=== PATIENT | female | born 1965 | race Caucasian/White ===

== ENCOUNTER 2016-05-06 12:01 | Day surgery (SDC) | payer MEDICARE, OTHER ==
[2016-05-05 09:36] VITALS: BMI 31.3
[~2016-05-06 12:01] MED LIST: LACTATED RINGERS 1,000 ML IV SCH
[2016-05-06 12:24] VITALS: RESP 16; TEMP 97.4
[2016-05-06] MEDS ORDERED: LIDOCAINE 1% 20 ML VIAL (10MG/ML) FOR IV START INTRADERMA ONE (12:29)
[2016-05-06] MEDS ORDERED: PROPOFOL 10 MG/ML 20 ML VIAL IV ONE (12:37)
--- NOTE | 2016-05-06 13:10 | P.PCN ---
Date of Procedure: 05/06/16 Procedure(s) Performed: Procedure: Esophagogastroduodenoscopy and biopsy. Preoperative diagnosis: History of upper GI bleeding, esophageal varices and antral mass. Postoperative diagnosis: 1. Esophageal varices appear well obliterated in the distal esophagus. 2. Prominent antral folds corresponding to the previously described mass with isolated 2 small ulcerations with no bleeding or gastric outlet obstruction. 3. Portal gastropathy. 4. Multiple biopsies obtained from the antral folds. Preparation and sedation: Was provided by anesthesia. Brief clinical history: The patient is a 50-year-old female who was hospitalized those the end of February 2016 with upper GI bleeding. I performed an upper endoscopy and deployed bands for bleeding esophageal varices. The patient has history of chronic hepatitis C viral infection and cirrhosis of the liver and portal hypertension and had those varices banded couple years prior as well. There was an ulcerated antral mass extending into the pyloric channel that proved benign on biopsies. This evaluation is to assess for need for further banding of the varices and obtain additional biopsies from the antral mass. Procedure: With the patient on her left lateral decubitus position and after informed consent and adequate sedation, I passed the Olympus-GIF 160 video upper endoscope through the cricopharyngeus down the esophagus. The distal esophagus showed normal obliteration of the esophageal varices. In the proximal esophagus there were couple short, small sizee variceal columns with no stigmata of bleeding, with no indication to band at this time. The endoscope was then passed through a small sliding hiatal hernia to the rest of the stomach which was insufflated with air and inspected in detail including the retroflex view in the cardia. In the antrum and the immediate prepyloric area, there was prominent folds converging into the pyloric channel and corresponding to what looked like an antral mass back in February. There were 2 isolated ulcerations on the surface of these folds. The appearance looks more benign this time and it does have the appearance of gastritis. Elsewhere, there was evidence of portal gastropathy with no evidence of bleeding. No gastric varices were noted. Pyloric channel, duodenal bulb, post bulbar area and descending duodenum did not show any additional abnormalities. The patient tolerated the procedure well. Plan: The patient was reassured. Will await biopsy results. I anticipate repeating her upper endoscopy in 1-2 years. She will follow-up with you as planned and I will keep you updated on her progress.
[2016-05-06 13:24] VITALS: BP 131/66; PULSE 81
== END 2016-05-06 13:48 | disposition home or self-care (01) ==
LOC: ORWHC2ENDO 12:01
DX: K25.9 Gastric ulcer, unspecified as acute or chronic, without hemorrhage or perforation (principal); K31.89 Other diseases of stomach and duodenum; K29.70 Gastritis, unspecified, without bleeding; I10 Essential (primary) hypertension; B18.2 Chronic viral hepatitis C; K74.60 Unspecified cirrhosis of liver; K76.6 Portal hypertension; I85.10 Secondary esophageal varices without bleeding; F17.200 Nicotine dependence, unspecified, uncomplicated
CPT/HCPCS: 43239; 81025; 88305; 88342; J2704; 99153

== ENCOUNTER 2016-07-08 09:46 | Observation (INO) | payer MEDICARE, OTHER ==
[2016-07-08] MEDS ORDERED: MORPHINE SULFATE 4 MG/ML SYRINGE IVP STA (10:52)
[2016-07-08] MEDS ORDERED: FAMOTIDINE 20 MG/2 ML VIAL IV STA (10:52)
[2016-07-08] MEDS ORDERED: SODIUM CHLORIDE 0.9% 1,000 ML IV ONE (10:52)
[2016-07-08] MEDS ORDERED: MAG HYDROX/AL HYDROX/SIMETH 30 ML, HYOSCYAMINE ELIXIR 10 ML, CIMETIDINE HCL 300 MG, LID... PO STA ×4 (10:53)
[2016-07-08] MEDS ORDERED: PANTOPRAZOLE 40 MG/10 ML VIAL IVP STA (10:53)
[2016-07-08 12:15] LABS: ALT 39 U/L (9-52); AST 51 U/L (14-36); Alkaline Phosphatase 72 U/L (38-126); Anion Gap 14 mmol/L; Blood Urea Nitrogen 11 mg/dL (7-17); Carbon Dioxide 23 mmol/L (22-30); Chloride 107 mmol/L (98-107); Glucose 103 mg/dL (74-99); Non-African American GFR(MDRD) >60 (>60 ml/min/1.73 sqM); Potassium 3.9 mmol/L (3.5-5.1); Sodium 144 mmol/L (137-145); Total Bilirubin 2.6 mg/dL (0.2-1.3); Total Protein 8.1 g/dL (6.3-8.2)
[2016-07-08 12:20] LABS: Basophils % (A) 1 %; CH 31.9; Eosinophils % (A) 1 %; HCT 41.4 % (34.0-46.0); HDW 2.85; HGB 14.9 gm/dL (11.4-16.0); Luc # (Auto) 0.12; Luc % (Auto) 3; Lymphocytes # (A) 1.4 k/uL (1.0-4.8); Lymphocytes % (A) 32 %; MCV 91.7 fL (80.0-100.0); Mean Platelet Volume 8.6; Monocytes # (A) 0.4 k/uL (0-1.0); Monocytes % (A) 9 %; Neutrophils # (A) 2.4 k/uL (1.3-7.7); Neutrophils % (A) 55 %; RBC 4.52 m/uL (3.80-5.40); RDW 14.4 % (11.5-15.5); WBC 4.4 k/uL (3.8-10.6); WBC (Perox) 4.35
[2016-07-08 12:22] LABS: Appearance,Urine Turbid (Clear); Bacteria,Urine Rare /hpf; Bilirubin,Urine 1+ (Negative); Glucose,Urine (UA) Negative (Negative); Ketones,Urine 1+ (Negative); Leukocyte Esterase,Urine Moderate (Negative); Mucus,Urine Many /hpf; Nitrite,Urine Negative (Negative); Particle Count 26128; Protein,Urine 1+ (Negative); RBC,Urine 1 /hpf (0-5); Specific Gravity,Urine 1.029 (1.001-1.035); Squamous Epithelial Cell,Urine 16 /hpf (0-4); UA Billing (MACRO vs. MICRO) MICRO; WBC,Urine 9 /hpf (0-5)
--- NOTE | 2016-07-08 12:32 | ED ---
General Adult HPI - General Chief complaint: Abdominal Pain Stated complaint: ABD PAIN X3 DAYS Source: patient Mode of arrival: ambulatory Limitations: no limitations - History of Present Illness Initial comments: 50-year-old female with past medical history of hypertension, liver cirrhosis with esophageal banding following GI bleeds, hepatitis C presented for evaluation of abdominal pain for the last 3 days. She describes it as sharp and twisting and intermittent lasting anywhere from 15-30 minutes and then resolving for short period of time. She states is worse when she lays flat and that there is associated nausea although she has not vomited yet. She states that she has had previous GI bleeds that is presented similarly but she has not had any hematemesis, hematochezia, or melena. She denies any lightheadedness/dizziness, chest pain, shortness of breath, fevers, chills, pale discoloration, or dysuria. - Related Data Home Medications Medication Instructions Recorded Confirmed No Known Home Medications [No 05/05/16 07/08/16 Known Home Medications] Allergies Allergy/AdvReac Type Severity Reaction Status Date / Time No Known Allergies Allergy Verified 07/08/16 10:45 Review of Systems ROS Statement: Those systems with pertinent positive or pertinent negative responses have been documented in the HPI. ROS Other: All systems not noted in ROS Statement are negative. Constitutional: Denies: fever, chills, weakness, weight change Eyes: Denies: eye pain, eye discharge ENT: Denies: ear pain, throat pain Respiratory: Denies: cough, dyspnea, hemoptysis Cardiovascular: Denies: chest pain, palpitations, dyspnea on exertion, orthopnea Endocrine: Denies: fatigue, polydipsia, polyuria Gastrointestinal: Reports: abdominal pain, nausea. Denies: vomiting, diarrhea, constipation, hematemesis, melena, hematochezia Genitourinary: Denies: urgency, dysuria Musculoskeletal: Denies: back pain, arthralgia, myalgia Skin: Denies: rash, lesions Neurological: Denies: headache, weakness, numbness, paresthesias Psychiatric: Denies: anxiety, depression Past Medical History Past Medical History: GI Bleed, Hypertension, Liver Disease Additional Past Medical History / Comment(s): Hepatitis C, Vertigo; mass located in stomach from last admission, states has had esophageal banding History of Any Multi-Drug Resistant Organisms: None Reported Past Surgical History: Adenoidectomy, Tonsillectomy Additional Past Surgical History / Comment(s): EGD Past Anesthesia/Blood Transfusion Reactions: No Reported Reaction Past Psychological History: No Psychological Hx Reported Smoking Status: Current every day smoker Past Alcohol Use History: None Reported Additional Past Alcohol Use History / Comment(s): smokes 1pack every 3 days, has smoked since age 12 (1977) Past Drug Use History: None Reported - Past Family History Mother Family Medical History: Cancer Additional Family Medical History / Comment(s): of lung ca Father Family Medical History: Myocardial Infarction ([place]) Additional Family Medical History / Comment(s): from 2nd heart attack General Exam Limitations: no limitations General appearance: alert, in distress Head exam: Present: atraumatic, normocephalic, normal inspection Eye exam: Present: normal appearance, PERRL, EOMI. Absent: scleral icterus, conjunctival injection, periorbital swelling ENT exam: Present: normal exam, mucous membranes moist Neck exam: Present: normal inspection. Absent: tenderness, meningismus, lymphadenopathy Respiratory exam: Present: normal lung sounds bilaterally. Absent: respiratory distress, wheezes, rales, rhonchi, stridor Cardiovascular Exam: Present: normal rhythm, tachycardia, normal heart sounds. Absent: systolic murmur, diastolic murmur, rubs, gallop, clicks GI/Abdominal exam: Present: soft, tenderness, normal bowel sounds. Absent: distended, guarding, rebound, rigid Rectal exam: Present: normal inspection, heme (-) stool Extremities exam: Present: normal inspection, full ROM, normal capillary refill. Absent: tenderness, pedal edema, joint swelling, calf tenderness Back exam: Present: normal inspection, full ROM. Absent: tenderness Neurological exam: Present: alert, oriented X3, CN II-XII intact Psychiatric exam: Present: normal affect, normal mood Skin exam: Present: warm, dry, intact, normal color. Absent: rash Course Vital Signs 07/08/16 07/08/16 07/08/16 09:47 14:40 17:01 Temperature 98.1 F 98.6 F 97.8 F Pulse Rate 101 H 70 Pulse Rate [ 90 Right] Respiratory 18 16 16 Rate Blood Pressure 149/72 102/60 Blood Pressure 127/58 [Right Arm] O2 Sat by Pulse 97 95 96 Oximetry EKG Findings - EKG Comments: EKG Findings:: Normal sinus rhythm with a ventricular rate of 79, DANIEL 116, QRS 78, QT/QTC 386/442. Medical Decision Making - Medical Decision Making 50-year-old female with past medical history of liver cirrhosis secondary to hepatitis C and GI bleeds resulting in esophageal banding presented for evaluation of abdominal pain with nausea and vomiting. She states this feels similar to previous GI bleeds. On physical examination she is markedly and discomfort and has tenderness to palpation in the epigastric abdomen. Fecal occult blood was negative and Labs revealed no significant abnormalities. Acute abdominal series showed no significant abnormalities. Patient was reevaluated and continued to have pain despite providing pain control. Given her continued pain and significant comorbidities we'll admit pain for further treatment and monitoring. Discussed pt with PCP Dr. Estrada who accepted the admission without further request. Bed request submitted and admission order placed. - Lab Data Result diagrams: 07/08/16 11:30 07/08/16 11:30 Lab Results 07/08/16 07/08/16 07/08/16 Range/Units 11:30 11:30 11:30 WBC 4.4 (3.8-10.6) k/uL RBC 4.52 (3.80-5.40) m/uL Hgb 14.9 (11.4-16.0) gm/dL Hct 41.4 (34.0-46.0) % MCV 91.7 (80.0-100.0) fL MCH 33.0 (25.0-35.0) pg MCHC 36.0 (31.0-37.0) g/dL RDW 14.4 (11.5-15.5) % Plt Count 76 L (150-450) k/uL Neutrophils % 55 % Lymphocytes % 32 % Monocytes % 9 % Eosinophils % 1 % Basophils % 1 % Neutrophils # 2.4 (1.3-7.7) k/uL Lymphocytes # 1.4 (1.0-4.8) k/uL Monocytes # 0.4 (0-1.0) k/uL Eosinophils # 0.0 (0-0.7) k/uL Basophils # 0.0 (0-0.2) k/uL Large Platelets Present Poikilocytosis (manual Present Anisocytosis (manual) Present Sodium 144 (137-145) mmol/L Potassium 3.9 (3.5-5.1) mmol/L Chloride 107 (98-107) mmol/L Carbon Dioxide 23 (22-30) mmol/L Anion Gap 14 mmol/L BUN 11 (7-17) mg/dL Creatinine 0.71 (0.52-1.04) mg/dL Est GFR (MDRD) Af Amer >60 (>60 ml/min/1.73 sqM) Est GFR (MDRD) Non-Af >60 (>60 ml/min/1.73 sqM) Glucose 103 H (74-99) mg/dL Plasma Lactic Acid Darrius 1.8 (0.7-2.0) mmol/L Calcium 9.0 (8.4-10.2) mg/dL Total Bilirubin 2.6 H (0.2-1.3) mg/dL AST 51 H (14-36) U/L ALT 39 (9-52) U/L Alkaline Phosphatase 72 (38-126) U/L Troponin I (0.000-0.034) ng/mL Total Protein 8.1 (6.3-8.2) g/dL Albumin 3.8 (3.5-5.0) g/dL Lipase 166 (23-300) U/L Urine Color Urine Appearance (Clear) Urine pH (5.0-8.0) Ur Specific [place] (1.001-1.035) Urine Protein (Negative) Urine Glucose (UA) (Negative) Urine Ketones (Negative) Urine Blood (Negative) Urine Nitrite (Negative) Urine Bilirubin (Negative) Urine Urobilinogen (<2.0) mg/dL Ur Leukocyte Esterase (Negative) Urine RBC (0-5) /hpf Urine WBC (0-5) /hpf Ur Squamous Epith Cells (0-4) /hpf Urine Bacteria (None) /hpf Urine Mucus (None) /hpf Stool Occult Blood (Negative) Blood Type Blood Type Recheck Antibody Screen Spec Expiration Date 07/08/16 07/08/16 07/08/16 Range/Units 11:30 11:30 11:30 WBC (3.8-10.6) k/uL RBC (3.80-5.40) m/uL Hgb (11.4-16.0) gm/dL Hct (34.0-46.0) % MCV (80.0-100.0) fL MCH (25.0-35.0) pg MCHC (31.0-37.0) g/dL RDW (11.5-15.5) % Plt Count (150-450) k/uL Neutrophils % % Lymphocytes % % Monocytes % % Eosinophils % % Basophils % % Neutrophils # (1.3-7.7) k/uL Lymphocytes # (1.0-4.8) k/uL Monocytes # (0-1.0) k/uL Eosinophils # (0-0.7) k/uL Basophils # (0-0.2) k/uL Large Platelets Poikilocytosis (manual Anisocytosis (manual) Sodium (137-145) mmol/L Potassium (3.5-5.1) mmol/L Chloride (98-107) mmol/L Carbon Dioxide (22-30) mmol/L Anion Gap mmol/L BUN (7-17) mg/dL Creatinine (0.52-1.04) mg/dL Est GFR (MDRD) Af Amer (>60 ml/min/1.73 sqM) Est GFR (MDRD) Non-Af (>60 ml/min/1.73 sqM) Glucose (74-99) mg/dL Plasma Lactic Acid Darrius (0.7-2.0) mmol/L Calcium (8.4-10.2) mg/dL Total Bilirubin (0.2-1.3) mg/dL AST (14-36) U/L ALT (9-52) U/L Alkaline Phosphatase (38-126) U/L Troponin I <0.012 (0.000-0.034) ng/mL Total Protein (6.3-8.2) g/dL Albumin (3.5-5.0) g/dL Lipase (23-300) U/L Urine Color [place] Urine Appearance Turbid H (Clear) Urine pH 6.0 (5.0-8.0) Ur Specific [place] 1.029 (1.001-1.035) Urine Protein 1+ H (Negative) Urine Glucose (UA) Negative (Negative) Urine Ketones 1+ H (Negative) Urine Blood Negative (Negative) Urine Nitrite Negative (Negative) Urine Bilirubin 1+ H (Negative) Urine Urobilinogen 12.0 (<2.0) mg/dL Ur Leukocyte Esterase Moderate H (Negative) Urine RBC 1 (0-5) /hpf Urine WBC 9 H (0-5) /hpf Ur Squamous Epith Cells 16 H (0-4) /hpf Urine Bacteria Rare H (None) /hpf Urine Mucus Many H (None) /hpf Stool Occult Blood (Negative) Blood Type O Positive Blood Type Recheck No Antibody Screen NEGATIVE Spec Expiration Date 07/11/2016 - 232907/08/16 Range/Units 11:30 WBC (3.8-10.6) k/uL RBC (3.80-5.40) m/uL Hgb (11.4-16.0) gm/dL Hct (34.0-46.0) % MCV (80.0-100.0) fL MCH (25.0-35.0) pg MCHC (31.0-37.0) g/dL RDW (11.5-15.5) % Plt Count (150-450) k/uL Neutrophils % % Lymphocytes % % Monocytes % % Eosinophils % % Basophils % % Neutrophils # (1.3-7.7) k/uL Lymphocytes # (1.0-4.8) k/uL Monocytes # (0-1.0) k/uL Eosinophils # (0-0.7) k/uL Basophils # (0-0.2) k/uL Large Platelets Poikilocytosis (manual Anisocytosis (manual) Sodium (137-145) mmol/L Potassium (3.5-5.1) mmol/L Chloride (98-107) mmol/L Carbon Dioxide (22-30) mmol/L Anion Gap mmol/L BUN (7-17) mg/dL Creatinine (0.52-1.04) mg/dL Est GFR (MDRD) Af Amer (>60 ml/min/1.73 sqM) Est GFR (MDRD) Non-Af (>60 ml/min/1.73 sqM) Glucose (74-99) mg/dL Plasma Lactic Acid Darrius (0.7-2.0) mmol/L Calcium (8.4-10.2) mg/dL Total Bilirubin (0.2-1.3) mg/dL AST (14-36) U/L ALT (9-52) U/L Alkaline Phosphatase (38-126) U/L Troponin I (0.000-0.034) ng/mL Total Protein (6.3-8.2) g/dL Albumin (3.5-5.0) g/dL Lipase (23-300) U/L Urine Color Urine Appearance (Clear) Urine pH (5.0-8.0) Ur Specific [place] (1.001-1.035) Urine Protein (Negative) Urine Glucose (UA) (Negative) Urine Ketones (Negative) Urine Blood (Negative) Urine Nitrite (Negative) Urine Bilirubin (Negative) Urine Urobilinogen (<2.0) mg/dL Ur Leukocyte Esterase (Negative) Urine RBC (0-5) /hpf Urine WBC (0-5) /hpf Ur Squamous Epith Cells (0-4) /hpf Urine Bacteria (None) /hpf Urine Mucus (None) /hpf Stool Occult Blood Negative (Negative) Blood Type Blood Type Recheck Antibody Screen Spec Expiration Date Disposition Clinical Impression: Intractable abdominal pain, Nausea Disposition: ADMITTED IP TO THIS [facility] Decision to Admit Reason: Admit from EC Decision Date: 07/08/16 Decision Time: 14:30
[2016-07-08] MEDS ORDERED: HYDROmorphone 1 MG/ML 1 ML SYRINGE IVP STA (12:33)
[2016-07-08 13:02] LABS: Large Platelets Present
--- NOTE | 2016-07-08 13:32 | XR ---
EXAMINATION TYPE: XR abdomen acute w cxr DATE OF EXAM: 07/08/2016 1:22 PM COMPARISON: Chest x-ray 03/08/2016. HISTORY: Pain nausea TECHNIQUE: Acute abdominal series performed with a frontal chest upright and supine views of the abdo men. FINDINGS: Normal bowel gas is present within the colon. Psoas margins are normal. Organomegaly is not present. No suspicious air-fluid levels or differential air-fluid levels are present. No free air is present. Lung barrera are clear. IMPRESSION: 1. Normal acute abdominal series.
[2016-07-08] MEDS ORDERED: NALOXONE 0.4 MG/ML 1 ML VIAL IV PRN (14:25)
[2016-07-08] MEDS: SODIUM CHLORIDE 0.9% 1,000 ML IV SCH (16:23)
[2016-07-08] MEDS: MORPHINE SULFATE 4 MG/ML SYRINGE IV PRN ×2 (18:00→22:49)
[2016-07-08] MEDS ORDERED: LEVOFLOXACIN 500MG-D5W PMX 500 MG in DEXTROSE/WATER 1 100ML.BAG IVPB SCH (18:00)
[2016-07-08] MEDS: ONDANSETRON 4 MG/2 ML VIAL IVP PRN (20:29)
[2016-07-08 20:57] LABS: Appearance,Urine Clear (Clear); Bilirubin,Urine Negative (Negative); Glucose,Urine (UA) Negative (Negative); Ketones,Urine Trace (Negative); Leukocyte Esterase,Urine Negative (Negative); Nitrite,Urine Negative (Negative); PH, Urine 5.5 (5.0-8.0); Protein,Urine Trace (Negative); Specific Gravity,Urine 1.025 (1.001-1.035); UA Billing (MACRO vs. MICRO) CHEM
[2016-07-09] MEDS: MORPHINE SULFATE 4 MG/ML SYRINGE IV PRN ×3 (03:32→13:02)
[2016-07-09] MEDS: PANTOPRAZOLE 40 MG/10 ML VIAL IVP SCH (07:51)
[2016-07-09] MEDS: SODIUM CHLORIDE 0.9% 1,000 ML IV SCH ×3 (07:59→18:10)
[2016-07-09 09:01] LABS: Basophils % (A) 0 %; CH 31.2; CHCM 32.5; Eosinophils % (A) 1 %; HCT 35.8 % (34.0-46.0); HDW 2.85; Luc % (Auto) 4; Lymphocytes % (A) 35 %; MCH 32.4 pg (25.0-35.0); MCHC 33.6 g/dL (31.0-37.0); MCV 96.5 fL (80.0-100.0); Mean Platelet Volume 8.4; Monocytes # (A) 0.2 k/uL (0-1.0); Monocytes % (A) 7 %; Neutrophils # (A) 1.5 k/uL (1.3-7.7); Neutrophils % (A) 53 %; RBC 3.71 m/uL (3.80-5.40); RDW 14.2 % (11.5-15.5); WBC 2.8 k/uL (3.8-10.6); WBC (Perox) 2.97
[2016-07-09 09:25] LABS: ALT 29 U/L (9-52); AST 40 U/L (14-36); Alkaline Phosphatase 43 U/L (38-126); Anion Gap 8 mmol/L; Blood Urea Nitrogen 10 mg/dL (7-17); Calcium 7.9 mg/dL (8.4-10.2); Carbon Dioxide 24 mmol/L (22-30); Chloride 108 mmol/L (98-107); Glucose 91 mg/dL (74-99); Non-African American GFR(MDRD) >60 (>60 ml/min/1.73 sqM); Sodium 140 mmol/L (137-145); Total Bilirubin 1.8 mg/dL (0.2-1.3); Total Protein 6.4 g/dL (6.3-8.2)
[2016-07-09] MEDS: ONDANSETRON 4 MG/2 ML VIAL IVP PRN ×2 (13:02→20:37)
--- NOTE | 2016-07-09 14:14 | P.DS ---
Providers Date of admission: 07/08/16 14:25 Expected date of discharge: 07/11/16 Attending physician: Mark Estrada Consults: Dr. Kwame Ruvalcaba Primary care physician: Mark Estrada Hospital Course: 50-year-old who presented to the emergency room with a chief complaint of developing abdominal discomfort stated he had ongoing for the last several days. Patient does have a history of liver cirrhosis with esophageal banding following GI bleed. Patient does have history of hepatitis. Patient described the pain as sharp intermittent lasting anywhere from 15-30 minutes. Patient stated seem to be worse if she laid down. The was no dizziness lightheadedness. In the emergency room patient was afebrile temp is 98. Heart rate in the 90s. Pulse ox sat on room air 97. The white count on admission 4.4 hemoglobin 14.9. Urinalysis suggested UTI patient was started on IV Levaquin patient did have an x-ray of the abdomen it showed no acute abdominal series no suspicious air fluid level. Repeat urinalysis was negative with the final urine culture negative no evidence of a UTI patient continued to have an episodes of abdominal pain patient underwent a CAT scan of the abdomen and pelvis there was no evidence of a bowel obstruction. No evidence of hydronephrosis some fluid noted around the gallbladder and the bile ducts were not dilated. It did show incidental finding of a 5 x 5 cm fixed mass at the 9: 00 location on the left breast. Surgical consultation was requested patient was seen by Dr. dawn Patient did undergo on July 10 successful ultrasound- guided core biopsy of the left breast mass path report pending. Ultrasound of the gallbladder did show sludge. Patient was denying any abdominal pain when questioning Surgical service indicated they would discuss with the patient in a follow-up visit the path report from the breast biopsy done on the left and the abnormal ultrasound of the gallbladder would be discussed in the outpatient setting in the follow-up office visit Additionally the patient was seen by gastroenterology service CT abdomen and pelvis yesterday reported no evidence of pancreatic mass some fluid at the tail the pancreas without bile duct dilation. Annular thickening of the wall the gastric antrum possible mass in the wall and the right lateral aspect that was present on previous CT with no evidence of bowel obstruction. Patient reports pain in the midepigastrium without weight loss, hematemesis hematochezia or melena additionally CT mentioned a possible 3 cm mass in the left breast. Gastric mass seen on CT was evaluated in March 2016 at that time she underwent EGD twice once by Dr. Mosquera the other by Dr. Joseph pathology from both specimens negative for malignancy. CEA February 2016 was 1.8. Repeat EGD 05/06/[address] Joseph reported evidence of esophageal varices well obliterated in the distal esophagus. Prominent antral folds corresponding to the previously described mass with a slightly 2 small ulcerations with no bleeding or gastric outlet obstruction with portal gastropathy. Multiple biopsies negative for malignancy. No mentioning of difficulty with insufflation during exam. Additionally the patient was seen by hematology oncology for a low white count. Patient has been followed by Dr. Puente in the office in February 2016. Recommendations were noted and appreciated. 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 chronic cirrhosis of the liver with chronic hepatitis C Epigastric abdominal pain etiology unclear with a history of multiple EGDs most recently 2 months ago without evidence of an obvious mass with negative biopsies Ultrasound of the breast on the left show a lesion at 9:00 highly suggestive of a malignancy Chronic nicotine dependency greater than a 20 history Ultrasound of the gallbladder showing sludge within the gallbladder with thickening gallbladder wall acute cholecystitis not ruled out Present on admission urinalysis suggestive of possible UTI uncomplicated with the urine culture negative Repeat urinalysis negative UTI ruled out History of chronic hepatitis C with cirrhosis and portal hypertension History of multiple EGDs most recently 2 months ago without evidence of an obvious mass with negative biopsies The above dictated assessment and findings were discussed with dr estrada Impression and the plan of care have been dictated as directed. Nanci Canas nurse practitioner acting as a scribe for dr estrada Plan - Discharge Summary New Discharge Prescriptions: HYDROcodone/APAP 5-325MG [[place] 5-325] 1 each PO Q4H PRN #15 tab PRN Reason: Pain Discharge Medication List HYDROcodone/APAP 5-325MG [[place] 5-325] 1 each PO Q4H PRN #15 tab 07/11/16 [Rx] Follow up Appointment(s)/Referral(s): Mark Estrada MD [Primary Care Provider] - 07/14/16 9:50 am Jayy Joseph MD [STAFF PHYSICIAN] - 08/04/16 1:30 pm Hernesto Puente MD [STAFF PHYSICIAN] - 1 Week Patient Instructions/Handouts: Levofloxacin (By mouth), Acute Abdominal Pain ( DC) Discharge Disposition: HOME SELF-CARE
--- NOTE | 2016-07-09 16:03 | P.PN ---
Subjective 50-year-old female being seen. Patient continues to report that she is having persistent abdominal pain patient describes it as diffuse cramping abdominal discomfort. Patient states the pain has not gotten any better. Patient reports no nausea vomiting. Patient currently is denying any burning on urination. Objective - Vital Signs Vital signs: Vital Signs Temp 98.0 F 07/09/16 15:00 Pulse 79 07/09/16 15:00 Resp 16 07/09/16 15:00 BP 110/56 07/09/16 15:00 Pulse Ox 96 07/09/16 15:00 Intake & Output 07/08/16 07/09/16 07/09/16 18:59 06:59 18:59 Intake Total 375 600 Balance 375 600 Intake: Intake, IV Titration 375 Amount Sodium Chloride 0.9% 1, 375 000 ml @ 125 mls/hr IV . Q8H RAFAEL Rx#:[id number] Oral 600 Other: # Voids 2 3 - Exam Physical exam 50-year-old female looking older than stated age resting in bed continues to report having abdominal discomfort and points to the lower abdominal wall Lungs essentially clear adequate air movement Heart S1-S2 audible regular Abdomen soft no rebound no palpable organomegaly no reports of nausea vomiting diffuse tenderness to the bilateral lower flank area Extremities no edema - Labs CBC & Chem 7: 07/09/16 08:20 07/09/16 08:20 Labs: Abnormal Lab Results - Last 24 Hours (Table) 07/08/16 07/09/16 07/09/16 Range/Units 20:33 08:20 08:20 WBC 2.8 L (3.8-10.6) k/uL RBC 3.71 L (3.80-5.40) m/uL Plt Count 67 L (150-450) k/uL Chloride 108 H (98-107) mmol/L Calcium 7.9 L (8.4-10.2) mg/dL Total Bilirubin 1.8 H (0.2-1.3) mg/dL AST 40 H (14-36) U/L Albumin 2.8 L (3.5-5.0) g/dL Urine Protein Trace H (Negative) Urine Ketones Trace H (Negative) Microbiology - Last 24 Hours (Table) 07/08/16 20:33 Urine Culture - Preliminary Urine,Voided Assessment and Plan Plan: Impression discharge diagnosis Present on admission abdominal pain suspect due to a UTI History of hepatitis C chronic total bilirubin elevated at 1.8 History of esophageal varices with banding due to cirrhosis of the liver March 2016 Chronic thrombocytopenia Chronic nicotine dependency greater than a 20 year history Plan Continue IV Levaquin as ordered IV fluid for hydration Ultrasound gallbladder Home meds as appropriate DVT and GI prophylaxis further recommendations pending The above dictated assessment and findings were discussed with dr hanna . Impression and the plan of care have been dictated as directed. Nanci Canas nurse practitioner acting as a scribe for dr gutierrez
[2016-07-09] MEDS ORDERED: RX INFO: IV CONTRAST WAS GIVEN 1 EACH MISC MISCELLANE PRN (16:07)
--- NOTE | 2016-07-09 17:11 | HP ---
DATE OF ADMISSION: 07/08/2016 CHIEF COMPLAINT: Abdominal pain. HISTORY OF PRESENT ILLNESS: This is another admission for this 50-year-old white female. She was in the hospital last year with abdominal pain and vomiting of blood and was found to have a "gastric mass which is benign." That was worked up and she has not been seen since March 2016. She came into the emergency room complaining of generalized abdominal pain, but no vomiting, melena, hematochezia, hematemesis, etc. There is no jaundice. She was admitted for observation. Labs in the ER were normal. She does have a history of hepatitis C. REVIEW OF SYSTEMS: She has had no headaches, syncope, change in vision or hearing, chest pain, cough, hemoptysis, palpitations, heart disease, murmurs, rheumatic fever, melena, hematochezia, jaundice, hematuria, frequency, urgency, arthralgias, diabetes, etc. Past medical history, family history and personal and social histories are unremarkable and noncontributory otherwise. She does smoke, but she does not drink. PHYSICAL EXAM: Blood pressure 132/88, pulse 64, respirations 20, and she is afebrile. GENERAL: She appeared to be well-developed, well-nourished no acute distress. SKIN: Skin color is normal. Skin is warm and dry. Lymph nodes are not enlarged. Head, ears, eyes, nose, mouth, and throat were normal. NECK: Neck veins not distended. Thyroid is not enlarged. Chest is clear. The cardiac exam is normal. The abdomen is soft and nontender, large and nontender. She has a little tenderness over the epigastrium. Bowel sounds present. EXTREMITIES: Normal. NEUROLOGICAL: She is intact. She is admitted to the hospital with diagnoses of: 1. Abdominal pain. 2. Previous history of gastric mass. 3. Previous history of hematemesis. 4. Hepatitis C. 5. Depression. 6. Chronic obstructive pulmonary disease. PLAN: 1. Bed rest. 2. IV fluids. 3. Monitor pain and decide whether or not she should go through another work-up.
[2016-07-09] MEDS: HYDROmorphone 1 MG/ML 1 ML SYRINGE IVP PRN ×2 (17:25→23:55)
[2016-07-09] MEDS: LEVOFLOXACIN 500 MG TAB PO SCH (17:58)
--- NOTE | 2016-07-09 18:19 | CT ---
EXAMINATION TYPE: CT abdomen pelvis w con DATE OF EXAM: 07/09/2016 5:45 PM COMPARISON: 01/11/2016 HISTORY: Mid to right upper abdominal pain. CT DLP: 1569.00 mGycm Automated exposure control for dose reduction was used. TECHNIQUE: Helical acquisition of images was performed from the lung bases through the pelvis. CONTRAST: Performed without Oral Contrast and with IV Contrast, patient injected with 100 mL of Omnipaque 300. FINDINGS: There is patchy pneumonic consolidation and atelectasis at the lung bases. There is no pleural effusi on. Liver shows no focal defect. Spleen is enlarged and measures 15 cm. There is no evidence of a pancrea tic mass. There is some fluid at the tail of the pancreas. There is probably some fluid around the ga llbladder. Bile ducts are not dilated. There is no adrenal mass. Kidneys show satisfactory contrast opacification. There is no hydronephrosi s. There is a small amount of free fluid in the pelvis. I see no intestinal wall thickening. There ar e no dilated loops. There is mild stranding in the pericolic fat involving the right colon. There is some annular thickening of the wall of the gastric antrum. There is a possible mass of the wall on th e right lateral aspect. This is also present on the old CT scan. There is no evidence of a bowel obst ruction. IMPRESSION: THERE IS A SMALL AMOUNT OF FREE FLUID IN THE ABDOMEN. THERE IS SOME FLUID AT THE TAIL OF THE PANCREAS THAT COULD RELATE TO PANCREATITIS. THERE IS SOME THICKENING OF THE GASTRIC ANTRUM WALL ON THE RIGHT LATERAL ASPECT IN PARTICULAR BUT COU LD RELATE TO A GASTRIC TUMOR. ENDOSCOPY IS RECOMMENDED FOR FURTHER EVALUATION. THERE IS PERICOLIC FAT STRANDING ON THE RIGHT SIDE THERE IS ALSO PRESENT ON THE OLD CT SCAN IS NONSPE CIFIC. I DO NOT SEE EVIDENCE OF APPENDICITIS. APPENDIX IS NOT SEEN. I DO NOT SEE INTESTINAL WALL THIC KENING INVOLVING THE RIGHT COLON. THERE IS NEW BILATERAL BASILAR PULMONARY CONSOLIDATION AND ATELECTASIS COMPARED TO OLD EXAM. THE UPPERMOST IMAGE OF THE ABDOMEN SHOWS A POSSIBLE 3 CM MASS IN THE LEFT BREAST. CORRELATION WITH TH E PHYSICAL EXAM IS RECOMMENDED.
--- NOTE | 2016-07-09 19:07 | PN ---
DATE OF SERVICE: 07/09/2016 CHIEF COMPLAINT: Abdominal pain. HISTORY OF PRESENT ILLNESS: This lady is still complaining of abdominal discomfort mostly in the epigastric area. She had no vomiting, fever, chills, etc. PHYSICAL EXAMINATION: She is a little bit tender over the epigastrium. Chest is clear. Cardiac exam is normal. IMPRESSION: Abdominal pain, etiology unknown. PLAN: Start to progress activity and diet and continue to look for source of pain.
[2016-07-09] MEDS: HYDROcodone/APAP 5-325MG 1 EACH TAB PO PRN (20:36)
[2016-07-10] MEDS: HYDROcodone/APAP 5-325MG 1 EACH TAB PO PRN ×5 (00:59→19:53)
[2016-07-10] MEDS: ONDANSETRON 4 MG/2 ML VIAL IVP PRN (04:51)
[2016-07-10] MEDS: SODIUM CHLORIDE 0.9% 1,000 ML IV SCH ×3 (04:54→18:10)
[2016-07-10] MEDS: HYDROmorphone 1 MG/ML 1 ML SYRINGE IVP PRN ×3 (06:19→18:14)
[2016-07-10 07:52] LABS: Basophils % (A) 0 %; CH 31.2; CHCM 32.6; Eosinophils % (A) 2 %; HCT 32.6 % (34.0-46.0); HDW 2.84; HGB 11.1 gm/dL (11.4-16.0); Luc # (Auto) 0.08; Luc % (Auto) 3; Lymphocytes # (A) 1.1 k/uL (1.0-4.8); Lymphocytes % (A) 41 %; MCH 32.8 pg (25.0-35.0); MCHC 34.1 g/dL (31.0-37.0); MCV 96.1 fL (80.0-100.0); Mean Platelet Volume 8.7; Monocytes # (A) 0.2 k/uL (0-1.0); Monocytes % (A) 7 %; Neutrophils # (A) 1.2 k/uL (1.3-7.7); Neutrophils % (A) 47 %; RBC 3.39 m/uL (3.80-5.40); WBC 2.5 k/uL (3.8-10.6); WBC (Perox) 2.68
[2016-07-10 08:10] LABS: ALT 29 U/L (9-52); AST 35 U/L (14-36); Alkaline Phosphatase 44 U/L (38-126); Amylase 61 U/L (30-110); Anion Gap 6 mmol/L; Blood Urea Nitrogen 9 mg/dL (7-17); Calcium 7.9 mg/dL (8.4-10.2); Carbon Dioxide 24 mmol/L (22-30); Chloride 109 mmol/L (98-107); Glucose 81 mg/dL (74-99); Non-African American GFR(MDRD) >60 (>60 ml/min/1.73 sqM); Potassium 3.6 mmol/L (3.5-5.1); Sodium 139 mmol/L (137-145); Total Bilirubin 1.4 mg/dL (0.2-1.3); Total Protein 6.1 g/dL (6.3-8.2)
[2016-07-10] MEDS: PANTOPRAZOLE 40 MG/10 ML VIAL IVP SCH (08:27)
--- NOTE | 2016-07-10 09:34 | US ---
EXAMINATION TYPE: US gallbladder DATE OF EXAM: 07/10/2016 7:44 AM COMPARISON: NONE CLINICAL HISTORY: Right upper quadrant pain. h/o cirrhosis EXAM MEASUREMENTS: Liver Length: 14.7 cm Gallbladder Wall: 0.5 cm CBD: 0.6 cm Right Kidney: 11.6 x 6.3 x 5.9 cm cm Pancreas: Obscured by bowel gas Liver: Increased attenuation, decreased visualization of vessels, best scans obtained intercostally; small cirrhotic liver with hyperechoic areas surrounding vessels Gallbladder: suspicious for sludge in neck of gb; thickened wall Evidence for sonographic Greenberg's sign: no CBD: upper limits of normal Right Kidney: No hydronephrosis or masses seen The pancreas is poorly visualized. The liver is normal in size but coarse in texture.. There is sludg e within the gallbladder. The gallbladder wall is thickened measuring 4.5 mm. The distal common hepat ic duct measures 6 mm. There is no sonographic Greenberg's sign. The right kidney is unremarkable. IMPRESSION: SLUDGE WITHIN THE GALLBLADDER WITH THICKENED GALLBLADDER WALL. PLEASE CORRELATE FOR ACUTE CHOLECYSTIT IS.
[2016-07-10] MEDS: ALPRAZolam 0.5 MG TAB PO PRN ×2 (09:39→12:12)
--- NOTE | 2016-07-10 09:55 | P.CONS ---
History of Present Illness - Reason for Consult Consult date: 07/10/16 possible pancreatitis Requesting physician: Mark Estrada - History of Present Illness 50-year-old female well-known to the GI service with a past medical history of chronic hepatitis C scheduled to receive antiviral treatment end of June, portal hypertension, cirrhosis, esophageal varices, GI variceal bleeds, and anxiety. Admitted with acute abdominal pain. Consultation requested for possible pancreatitis and questionable mass on CT imaging. CT abdomen and pelvis yesterday reported no evidence of pancreatic mass some fluid at the tail the pancreas without bile duct dilation. Annular thickening of the wall the gastric antrum possible mass in the wall and the right lateral aspect that was present on previous CT with no evidence of bowel obstruction. Patient reports pain in the midepigastrium without weight loss, hematemesis hematochezia or melena additionally CT mentioned a possible 3 cm mass in the left breast. Gastric mass seen on CT was evaluated in March 2016 at that time she underwent EGD twice once by Dr. Mosquera the other by Dr. Joseph pathology from both specimens negative for malignancy. CEA February 2016 was 1.8. Repeat EGD 05/06/[address] Joseph reported evidence of esophageal varices well obliterated in the distal esophagus. Prominent antral folds corresponding to the previously described mass with a slightly 2 small ulcerations with no bleeding or gastric outlet obstruction with portal gastropathy. Multiple biopsies negative for malignancy. No mentioning of difficulty with insufflation during exam. White count 2.5. Hemoglobin 11.1 platelet 51. Lipase 166-191. Amylase 61. Total bilirubin 1.4-2.6. AST 35-51. ALT 29-39. Alkaline phosphatase 43-72. Review of Systems Constitutional: Denies fever, chills, sweats, weight gain, or loss. HEENT: Negative for migraines, blurred vision or loss, earaches, drainage, tinnitus, oral mucosal lesions, dysphagia, or odynophagia. CARDIAC: Negative for chest pain, arrhythmias, or palpitation. RESPIRATORY: Negative for shortness of breath, hemoptysis, cough, or sputum production. GI: See HPI for pertinent findings. : Negative for hematuria, urgency, frequency, polyuria, or dysuria. GYNc: Negative vaginal discharge. MUSCULOSKELETAL: Negative for muscle aches, swelling, arthritis, and arthralgias. NEUROLOGIC: Negative for stroke or TIA. ENDOCRINE: Negative for thyroid problems. SKIN: Negative for rash or itching. PSYCHIATRIC: Negative history for depression. Anxiety Past Medical History Past Medical History: GI Bleed, Hypertension, Liver Disease Additional Past Medical History / Comment(s): Hepatitis C, Vertigo; mass located in stomach from last admission, states has had esophageal banding History of Any Multi-Drug Resistant Organisms: None Reported Past Surgical History: Adenoidectomy, Tonsillectomy Additional Past Surgical History / Comment(s): EGD Past Anesthesia/Blood Transfusion Reactions: No Reported Reaction Past Psychological History: No Psychological Hx Reported Additional Psychological History / Comment(s): PT'S SON LIVES WITH HER. 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 NO MEDICAL EQUIPMENT. 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 Smoking Status: Current every day smoker Past Alcohol Use History: None Reported Additional Past Alcohol Use History / Comment(s): smokes 1pack every 3 days, has smoked since age 12 (1977) Past Drug Use History: None Reported - Past Family History Mother Family Medical History: Cancer Additional Family Medical History / Comment(s): of lung ca Father Family Medical History: Myocardial Infarction ([place]) Additional Family Medical History / Comment(s): from 2nd heart attack Medications and Allergies Allergies Allergy/AdvReac Type Severity Reaction Status Date / Time No Known Allergies Allergy Verified 07/08/16 10:45 Physical Exam Vitals: Vital Signs Temp Pulse Pulse Resp BP Pulse Ox 07/10/16 07:00 97.9 F 75 16 113/56 91 L 07/09/16 23:00 98.8 F 81 16 110/60 94 L 07/09/16 20:30 20 90 L 07/09/16 20:20 99.6 F 80 20 103/58 87 L 07/09/16 15:00 98.0 F 79 16 110/56 96 Intake and Output 07/09/16 07/10/16 07/10/16 22:59 06:59 14:59 Intake Total 375 1000 Balance 375 1000 Intake: Intake, IV Titration 375 1000 Amount Sodium Chloride 0.9% 1, 375 1000 000 ml @ 125 mls/hr IV . Q8H RAFAEL Rx#:[id number] Other: # Voids 2 Results CBC & Chem 7: 07/10/16 07:21 07/10/16 07:21 Labs: Abnormal Lab Results - Last 24 Hours (Table) 07/09/16 07/09/16 07/10/16 Range/Units 08:20 08:20 07:21 WBC 2.8 L (3.8-10.6) k/uL RBC 3.71 L (3.80-5.40) m/uL Hgb (11.4-16.0) gm/dL Hct (34.0-46.0) % Plt Count 67 L (150-450) k/uL Neutrophils # (1.3-7.7) k/uL Chloride 108 H 109 H (98-107) mmol/L Calcium 7.9 L 7.9 L (8.4-10.2) mg/dL Total Bilirubin 1.8 H 1.4 H (0.2-1.3) mg/dL AST 40 H (14-36) U/L Total Protein 6.1 L (6.3-8.2) g/dL Albumin 2.8 L 2.5 L (3.5-5.0) g/dL 07/10/16 Range/Units 07:21 WBC 2.5 L (3.8-10.6) k/uL RBC 3.39 L (3.80-5.40) m/uL Hgb 11.1 L (11.4-16.0) gm/dL Hct 32.6 L (34.0-46.0) % Plt Count 51 L (150-450) k/uL Neutrophils # 1.2 L (1.3-7.7) k/uL Chloride (98-107) mmol/L Calcium (8.4-10.2) mg/dL Total Bilirubin (0.2-1.3) mg/dL AST (14-36) U/L Total Protein (6.3-8.2) g/dL Albumin (3.5-5.0) g/dL Microbiology - Last 24 Hours (Table) 07/08/16 20:33 Urine Culture - Final Urine,Voided CT scan - abdomen: report reviewed (Reviewed by Dr. Jsoeph) Assessment and Plan (1) Epigastric abdominal pain Narrative/Plan: Etiology is unclear history of multiple EGDs in the past with most recent EGD approximately 2 months ago without evidence of obvious mass with negative biopsies. Possible gallbladder pathology. 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 Gen. surgical consult for evaluation of left breast mass. Would appreciate their evaluation of epigastric pain as well. 2. Continue GI prophylaxis Protonix 40 mg daily. 3. We'll obtain a CEA level. 4. Diet as tolerated. We'll follow with you. Repeat endoscopies not planned at this time. Case was discussed with Dr. Estrada. Thank you for this kind referral and the opportunity to participate in the care of your patient. This consultation was discussed with Dr. Joseph. The impression and plan of care have been directed as dictated.
[2016-07-10] MEDS ORDERED: PHYTONADIONE ORAL 5 MG/5 ML ORAL.SYRG PO STA (10:39)
--- NOTE | 2016-07-10 11:04 | USB ---
Reason for exam: clinical finding. US Breast BILAT Right breast ultrasound includes all four quadrants, the retroareolar region and axilla. Finding demonstrate a 0.7 x 0.3 x 0.5cm oval, cystic lesion at 2 o'clock. Left breast ultrasound includes all four quadrants, the retroareolar region and axilla. Finding demonstrate a 5.6 x 3.3 x 5.3cm lobular, solid, hypoechoic, vascular lesion at 9 o'clock, correlate with CT 07/09/16. Biopsy recommended. These results were verbally communicated with the patient and result sheet given to the patient on 07/10/16. ASSESSMENT: Highly suggestive of malignancy, BI-RAD 5 RECOMMENDATION: Surgical consultation and ultrasound core biopsy of the left breast.
--- NOTE | 2016-07-10 11:09 | P.PN ---
Progress Note - Text Patient examined. Incidental finding of left breast mass on CT abdomen. No prior mammograms or breast US Patient has history of IV drug abuse as a teenager. Chronic hepatitis C with cirrhosis and portal hypertsension. DOes not c/o abdominal pain today. Throbocytopenia secondary to cirrhosis. Check PT, PTT, INR. VItamin K 10 mg po once US of bilateral breasts. US guided core bx left breast . Clinically 5x5 cm fixed mass lower inner quadrant left breast. No clinically palpable axillary lymph nodes. Patient is very anxious and emotional. CCK HIDA scan - results may be limited secondary to cirrhosis of liver. Patient examine with FÉLIX Canas. Please see her full consult for details
--- NOTE | 2016-07-10 12:04 | P.GSCN ---
History of Present Illness Consult date: 07/10/16 Reason for Consult: Abdominal pain left breast mass Requesting physician: Mark Estrada History of present illness: A 50-year-old female being seen at the request of the attending for a surgical eval for abdominal pain and incidental finding of a left breast mass picked up on a CAT scan of the abdomen pelvis as part of the workup for abdominal pain. Patient states that she has not had mammogram or ultrasound of the breast. 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 Clinically noted 5 x 5 cm fixed mass in the lower anterior quadrant of the left breast questioning patient if she does self breast exams at home and patient states no she's not certain how long the mass has been there Additionally patient has a significant past medical history of chronic hepatitis C with cirrhosis and portal hypertension. This morning the patient is reporting having some epigastric discomfort but feels better "patient states she's not certain how she contacted hepatitis C but indicates that she was to start receiving antiviral treatment the end of June at Dr. Ewing's office but according to the patient has not initiated treatment. Patient gives a remote history of using IV drugs at the age of 13 but apparently none since. Patient additionally reports she is not an alcoholic and does not drink alcohol. Reviewing the computerized records indicate the patient has had an EGD done in the past. Patient is emotional highly anxious this morning poor historian.. Reviewing the computerized records indicate the patient was noted to have a gastric mass on a CAT scan that was evaluated in March 2016. At that time patient did undergo an EGD twice once by Dr. baker the other time by Dr. Ewing pathology from both specimens was negative for malignancy. A repeat EGD done May [address] Ewing the report indicated there was evidence of esophageal varices well obliterated in the distal esophagus. There was slightly two small ulcerative areas noted was no bleeding or gastric or Obstruction. Multiple biopsies were negative for malignancy.. Past surgical history tonsillectomy adenoidectomy otherwise no significant past surgical history Review of Systems Essentially unremarkable except as mentioned in the present illness Past Medical History Past Medical History: GI Bleed, Hypertension, Liver Disease Additional Past Medical History / Comment(s): Hepatitis C, Vertigo; mass located in stomach from last admission, states has had esophageal banding History of Any Multi-Drug Resistant Organisms: None Reported Past Surgical History: Adenoidectomy, Tonsillectomy Additional Past Surgical History / Comment(s): EGD Past Anesthesia/Blood Transfusion Reactions: No Reported Reaction Past Psychological History: No Psychological Hx Reported Additional Psychological History / Comment(s): PT'S SON LIVES WITH HER. PET [place] IN [place].PT IS INDEPENDANT. NO MEDICAL EQUIPMENT. 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 Smoking Status: Current every day smoker Past Alcohol Use History: None Reported Additional Past Alcohol Use History / Comment(s): smokes 1pack every 3 days, has smoked since age 12 (1977) Past Drug Use History: None Reported - Past Family History Mother Family Medical History: Cancer Additional Family Medical History / Comment(s): of lung ca Father Family Medical History: Myocardial Infarction ([place]) Additional Family Medical History / Comment(s): from 2nd heart attack Medications and Allergies Allergies Allergy/AdvReac Type Severity Reaction Status Date / Time No Known Allergies Allergy Verified 07/08/16 10:45 Surgical - Exam Vital Signs Temp Pulse Resp BP Pulse Ox 98.1 F 101 H 18 149/72 97 07/08/16 09:47 07/08/16 09:47 07/08/16 09:47 07/08/16 09:47 07/08/16 09:47 GENERAL APPEARANCE: 50-year-old female patient is alert, oriented 3, in no acute distress. Teary-eyed this morning concerned about the left breast VITAL SIGNS: Reviewed HEENT: Head is normocephalic and atraumatic. Pupils are equal and reactive. The nares are patent. Oropharynx is clear without lesions. NECK: Supple without lymphadenopathy. Traches midline. Breast a palpable fixed 5 x 5 cm mass left lower inner quadrant of the breast right breast unremarkable no redness noted to the bilateral breast no palpable axillary lymph node HEART: S1, S2. Regular rate and rhythm. No murmur noted denying chest pain LUNGS: No crackles or wheezes are heard. Adequate air movement bilaterally ABDOMEN: Soft, slight tenderness nondistended with good bowel sounds. No peritoneal signs. No palpable organomegaly or masses. EXTREMITIES: Normal skin color and turgor. No cyanosis, rash, ulceration, clubbing or edema. Radial pedal pulses are 2/4 bilaterally. NEUROLOGICAL: No focal deficits. Strength and sensation are grossly intact. Results - Labs 07/10/16 07:21 07/10/16 07:21 Abnormal Lab Results - Last 24 Hours (Table) 07/10/16 07/10/16 Range/Units 07:21 07:21 WBC 2.5 L (3.8-10.6) k/uL RBC 3.39 L (3.80-5.40) m/uL Hgb 11.1 L (11.4-16.0) gm/dL Hct 32.6 L (34.0-46.0) % Plt Count 51 L (150-450) k/uL Neutrophils # 1.2 L (1.3-7.7) k/uL Chloride 109 H (98-107) mmol/L Calcium 7.9 L (8.4-10.2) mg/dL Total Bilirubin 1.4 H (0.2-1.3) mg/dL Total Protein 6.1 L (6.3-8.2) g/dL Albumin 2.5 L (3.5-5.0) g/dL Microbiology - Last 24 Hours (Table) 07/08/16 20:33 Urine Culture - Final Urine,Voided Diabetes panel 07/10/16 Range/Units 07:21 Sodium 139 (137-145) mmol/L Potassium 3.6 (3.5-5.1) mmol/L Chloride 109 H (98-107) mmol/L Carbon Dioxide 24 (22-30) mmol/L BUN 9 (7-17) mg/dL Creatinine 0.70 (0.52-1.04) mg/dL Glucose 81 (74-99) mg/dL Calcium 7.9 L (8.4-10.2) mg/dL AST 35 (14-36) U/L ALT 29 (9-52) U/L Alkaline Phosphatase 44 (38-126) U/L Total Protein 6.1 L (6.3-8.2) g/dL Albumin 2.5 L (3.5-5.0) g/dL Calcium panel 07/10/16 Range/Units 07:21 Calcium 7.9 L (8.4-10.2) mg/dL Albumin 2.5 L (3.5-5.0) g/dL Pituitary panel 07/10/16 Range/Units 07:21 Sodium 139 (137-145) mmol/L Potassium 3.6 (3.5-5.1) mmol/L Chloride 109 H (98-107) mmol/L Carbon Dioxide 24 (22-30) mmol/L BUN 9 (7-17) mg/dL Creatinine 0.70 (0.52-1.04) mg/dL Glucose 81 (74-99) mg/dL Calcium 7.9 L (8.4-10.2) mg/dL Adrenal panel 07/10/16 Range/Units 07:21 Sodium 139 (137-145) mmol/L Potassium 3.6 (3.5-5.1) mmol/L Chloride 109 H (98-107) mmol/L Carbon Dioxide 24 (22-30) mmol/L BUN 9 (7-17) mg/dL Creatinine 0.70 (0.52-1.04) mg/dL Glucose 81 (74-99) mg/dL Calcium 7.9 L (8.4-10.2) mg/dL Total Bilirubin 1.4 H (0.2-1.3) mg/dL AST 35 (14-36) U/L ALT 29 (9-52) U/L Alkaline Phosphatase 44 (38-126) U/L Total Protein 6.1 L (6.3-8.2) g/dL Albumin 2.5 L (3.5-5.0) g/dL Assessment and Plan Plan: Impression Present on admission abdominal pain unclear etiology Incidental finding of a left breast mass from a CAT scan of the abdomen and pelvis History of hepatitis C chronic currently undergoing no treatment History of esophageal varices chronic 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 Epigastric abdominal pain etiology unclear with a history of multiple EGDs most recently 2 months ago without evidence of an obvious mass with negative biopsies Ultrasound of the breast on the left show a lesion at 9:00 highly suggestive of a malignancy Chronic nicotine dependency greater than a 20 history Ultrasound of the gallbladder showing sludge within the gallbladder with thickening gallbladder wall acute cholecystitis not ruled out Present on admission urinalysis suggestive of possible UTI uncomplicated with the urine culture negative Repeat urinalysis negative UTI ruled out History of chronic hepatitis C with cirrhosis and portal hypertension Plan From a surgical perspective the incidental finding of the left breast mass needs to be worked up with interventional radiology to do a US guided core biopsy of the left breast 10 of vitamin K will be given now orally Check a pro time and INR now Follow up on the HIDA scan results may be limited secondary to cirrhosis of the liver DVT and GI prophylaxis Further recommendations pending will follow the surgical course. Thank you for this kind referral and the opportunity to participate in the plan of care depending progress further recommendations will be made The above dictated assessment and findings were discussed with dr mariya Hammond and the plan of care have been dictated as directed. Nanci Canas nurse practitioner acting as a scribe for dr meraz
--- NOTE | 2016-07-10 12:09 | P.PN ---
Subjective 50-year-old being seen this morning. Did discuss the findings from the CAT scan of the abdomen pelvis involving the left upper breast mass. Patient is teary-eyed stating feeling very concerned and upset concerned that his cancer involving the left breast to the patient's knowledge she does not recall having a mammogram or ultrasound of the breast. Additionally states she does not do breast exams. Patient reports the abdominal discomfort slightly improved but just received pain medication for epigastric discomfort. There is no nausea vomiting. No stooling document. Surgical consultation has been requested. Additionally a GI consultation was requested. Patient does have a history of abdominal pain etiology unclear but multiple EGDs most recently 05/06/2016 at that time there was no evidence of an obvious mass in the were negative biopsies done. Objective - Vital Signs Vital signs: Vital Signs Temp 97.9 F 07/10/16 07:00 Pulse 80 07/10/16 08:00 Resp 16 07/10/16 08:00 BP 113/56 07/10/16 07:00 Pulse Ox 91 L 07/10/16 07:00 Intake & Output 07/09/16 07/10/16 07/10/16 18:59 06:59 18:59 Intake Total 600 1375 Balance 600 1375 Weight 95.254 kg Intake: Intake, IV Titration 1375 Amount Sodium Chloride 0.9% 1, 1375 000 ml @ 125 mls/hr IV . Q8H [facility] Rx#:[id number] Oral 600 Other: # Voids 3 2 - Exam Physical exam 50-year-old female looking older than stated age resting in bed continues to report having abdominal discomfort and points to the lower abdominal wall Lungs essentially clear adequate air movement Heart S1-S2 audible regular Abdomen soft no rebound no palpable organomegaly no reports of nausea vomiting diffuse tenderness to the bilateral lower flank area Extremities no edema Chest left palpable mass at 9:00 in the breast wall no redness to the breast the right breast unremarkable no axillary lymph nodes palpable - Labs CBC & Chem 7: 07/10/16 07:21 07/10/16 07:21 Labs: Abnormal Lab Results - Last 24 Hours (Table) 07/10/16 07/10/16 Range/Units 07:21 07:21 WBC 2.5 L (3.8-10.6) k/uL RBC 3.39 L (3.80-5.40) m/uL Hgb 11.1 L (11.4-16.0) gm/dL Hct 32.6 L (34.0-46.0) % Plt Count 51 L (150-450) k/uL Neutrophils # 1.2 L (1.3-7.7) k/uL Chloride 109 H (98-107) mmol/L Calcium 7.9 L (8.4-10.2) mg/dL Total Bilirubin 1.4 H (0.2-1.3) mg/dL Total Protein 6.1 L (6.3-8.2) g/dL Albumin 2.5 L (3.5-5.0) g/dL Microbiology - Last 24 Hours (Table) 07/08/16 20:33 Urine Culture - Final Urine,Voided Assessment and Plan Plan: Impression Present on admission abdominal pain unclear etiology Incidental finding of a left breast mass from a CAT scan of the abdomen and pelvis History of hepatitis C chronic currently undergoing no treatment History of esophageal varices chronic 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 Epigastric abdominal pain etiology unclear with a history of multiple EGDs most recently 2 months ago without evidence of an obvious mass with negative biopsies Ultrasound of the breast on the left show a lesion at 9:00 highly suggestive of a malignancy Chronic nicotine dependency greater than a 20 history Ultrasound of the gallbladder showing sludge within the gallbladder with thickening gallbladder wall acute cholecystitis not ruled out Present on admission urinalysis suggestive of possible UTI uncomplicated with the urine culture negative Repeat urinalysis negative UTI ruled out History of chronic hepatitis C with cirrhosis and portal hypertension Plan From a surgical perspective the incidental finding of the left breast mass needs to be worked up with interventional radiology to do a US guided core biopsy of the left breast 10 of vitamin K will be given now orally Check a pro time and INR now Follow up on the HIDA scan results may be limited secondary to cirrhosis of the liver DVT and GI prophylaxis Further recommendations pending will follow the surgical course. The above dictated assessment and findings were discussed with dr Estrada Impression and the plan of care have been dictated as directed. Nanci Canas nurse practitioner acting as a scribe for dr Estrada
[2016-07-10 13:06] LABS: INR 1.2 (<1.1); Partial Thromboplastin Time 25.1 sec (22.0-30.0); Prothrombin Time 11.9 sec (9.0-12.0)
--- NOTE | 2016-07-10 14:11 | USB ---
EXAMINATION TYPE: US breast needle core LT DATE OF EXAM: 07/10/2016 1:33 PM COMPARISON: Ultrasound 07/10/2016 HISTORY: Abnormal ultrasound The procedure is discussed with the patient, the risks, complications, benefits and alternatives, were discussed and any questions were answered. Informed consent was obtained. The patient is placed prone on the ultrasound table, prepped and draped in the usual sterile fashion. Utilizing a 14-gauge core needle access into the left breast mass was achieved with multiple passes. Pathology pending.. All elements of maximal barrier and sterile technique were utilized. The patient remained stable throughout the procedure with no immediate postprocedural complication. Postprocedural clip was placed in position. IMPRESSION: 1. Successful ultrasound guided core biopsy of requested left breast mass. Pathology Results: Malignant A. BREAST, LEFT, CORE BIOPSY: INVASIVE DUCTAL CARCINOMA WITH PAPILLARY FEATURES. B. BREAST, LEFT, CORE BIOPSY: INVASIVE DUCTAL CARCINOMA. Recommendation Surgical consult of the left breast. LORETO
[2016-07-10 14:12] VITALS: RESP 16
--- NOTE | 2016-07-10 18:20 | NM ---
EXAMINATION TYPE: NM hepatobiliary w EF DATE OF EXAM: 07/10/2016 6:08 PM COMPARISON: NONE HISTORY: TECHNIQUE: After the intravenous administration of 5 mCi Tc 99m Mebrofenin hepatobiliary scintigraphy is performed. Immediate images post injection. FINDINGS: There is prompt uptake of the tracer by the liver that has normal size and contour. I see no focal de fect. There is tracer in the gallbladder at 15 minutes. At 1 hour the tracers mostly cleared from the liver. The post contraction images show a gallbladder ejection fraction of 37% which is at the lower limit o f normal. IMPRESSION: No evidence of cystic duct or common bile duct obstruction. There is a borderline hypokin etic gallbladder ejection fraction of 37% with the oral stimulation.
[2016-07-10] MEDS: LEVOFLOXACIN 500 MG TAB PO SCH (19:48)
[2016-07-11] MEDS: HYDROmorphone 1 MG/ML 1 ML SYRINGE IVP PRN ×2 (00:18→07:44)
[2016-07-11] MEDS: HYDROcodone/APAP 5-325MG 1 EACH TAB PO PRN ×3 (01:32→10:17)
[2016-07-11] MEDS: SODIUM CHLORIDE 0.9% 1,000 ML IV SCH ×2 (01:34→08:39)
[2016-07-11] MEDS ORDERED: PANTOPRAZOLE 40 MG TABLET PO SCH (07:30)
[2016-07-11] MEDS: ALPRAZolam 0.5 MG TAB PO PRN (07:43)
[2016-07-11 08:30] LABS: Basophils % (A) 1 %; CH 31.5; CHCM 32.7; Eosinophils % (A) 2 %; HCT 33.4 % (34.0-46.0); HDW 2.93; HGB 11.3 gm/dL (11.4-16.0); Luc # (Auto) 0.07; Luc % (Auto) 4; Lymphocytes # (A) 0.8 k/uL (1.0-4.8); Lymphocytes % (A) 41 %; MCH 32.7 pg (25.0-35.0); MCHC 33.8 g/dL (31.0-37.0); MCV 96.8 fL (80.0-100.0); Mean Platelet Volume 9.3; Monocytes # (A) 0.1 k/uL (0-1.0); Monocytes % (A) 7 %; Neutrophils # (A) 0.8 k/uL (1.3-7.7); Neutrophils % (A) 46 %; RBC 3.46 m/uL (3.80-5.40); RDW 14.3 % (11.5-15.5); WBC (Perox) 2.03
[2016-07-11 08:33] LABS: ALT 31 U/L (9-52); AST 36 U/L (14-36); Alkaline Phosphatase 51 U/L (38-126); Anion Gap 6 mmol/L; Blood Urea Nitrogen 8 mg/dL (7-17); Calcium 8.2 mg/dL (8.4-10.2); Carbon Dioxide 25 mmol/L (22-30); Chloride 109 mmol/L (98-107); Glucose 83 mg/dL (74-99); Non-African American GFR(MDRD) >60 (>60 ml/min/1.73 sqM); Potassium 3.8 mmol/L (3.5-5.1); Sodium 140 mmol/L (137-145); Total Protein 6.3 g/dL (6.3-8.2)
[2016-07-11 08:34] VITALS: BP 102/59; TEMP 97.7
[2016-07-11 08:36] LABS: WBC 1.8 k/uL (3.8-10.6)
--- NOTE | 2016-07-11 09:27 | P.PN ---
Subjective Principal diagnosis: Epigastric pain 50-year-old female evaluated yesterday in regards to epigastric pain. Evaluated by general surgery with HIDA scan and ultrasound. Imaging identified left breast mass status post ultrasound and core biopsy with pathology pending. Reports minimal epigastric discomfort this morning. Patient was out of her pain medications prior to admission which was discovered this morning and possibly contributing to her presenting abdominal pain. Possible discharge later today. Objective - Vital Signs Vital signs: Vital Signs Temp 97.7 F 07/11/16 07:00 Pulse 68 07/11/16 07:00 Resp 16 07/11/16 07:00 BP 102/59 07/11/16 07:00 Pulse Ox 92 L 07/11/16 07:00 Intake & Output 07/10/16 07/11/16 07/11/16 18:59 06:59 18:59 Intake Total 1219 1250 Balance 1219 1250 Weight 95.254 kg Intake: Intake, IV Titration 969 1250 Amount Sodium Chloride 0.9% 1, 969 1250 000 ml @ 125 mls/hr IV . Q8H [facility] Rx#:[id number] Oral 250 Other: # Voids 2 - Exam General appearance: The patient is alert, oriented, in no acute distress. HET: Head is normocephalic and atraumatic. Pupils are equal and reactive. Oropharynx is clear without lesions. Neck: Supple without lymphadenopathy. Trachea midline. Heart: S1 S2. Regular rate and rhythm. Lungs: No crackles or wheezes are heard. Abdomen: Soft, nontender, nondistended with bowel sounds. No peritoneal signs. No palpable organomegaly or masses. Extremities: Normal skin color and turgor. No cyanosis, rash, ulceration, clubbing, or edema. Radial and pedal pulses are 2/4 bilaterally. Neurological: No focal deficits. Strength and sensation are grossly intact. - Labs CBC & Chem 7: 07/11/16 07:54 07/11/16 07:54 Labs: Abnormal Lab Results - Last 24 Hours (Table) 07/11/16 07/11/16 Range/Units 07:54 07:54 WBC 1.8 L* (3.8-10.6) k/uL RBC 3.46 L (3.80-5.40) m/uL Hgb 11.3 L (11.4-16.0) gm/dL Hct 33.4 L (34.0-46.0) % Plt Count 55 L (150-450) k/uL Neutrophils # 0.8 L (1.3-7.7) k/uL Lymphocytes # 0.8 L (1.0-4.8) k/uL Chloride 109 H (98-107) mmol/L Calcium 8.2 L (8.4-10.2) mg/dL Albumin 2.6 L (3.5-5.0) g/dL Assessment and Plan (1) Epigastric abdominal pain Status: Acute (2) Left breast mass Narrative/Plan: Status post core biopsy Status: Acute (3) Cirrhosis of liver Status: Chronic (4) Esophageal varices Status: Chronic (5) Hepatitis C Status: Chronic (6) 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 Discharge per medicine. 2. Patient has appointment to be seen in GI office August 04 for discussion of hepatitis C treatment. 3. Continue with omeprazole 40 mg daily. We'll follow as needed. Assessment and plan a care discussed with Dr. Joseph.
[2016-07-11 10:22] VITALS: PULSE 80
--- NOTE | 2016-07-11 10:37 | P.CONS ---
History of Present Illness - Reason for Consult Consult date: 07/11/16 leukopenia Requesting physician: Nanci Canas - Chief Complaint abd pain - History of Present Illness Ms. Barakat is a pleasant female pt who has been seen by Dr. Puente in the past for pancytopenia. Pt initially presented in 2011 with vomiting of blood and bleeding per rectum, she was found to have esophageal varices due to portal hypertension from cirrhosis, work up revealed Hepatitis C positive. She was treated with banding by Dr. Joseph but did not f/u on a regular basis for treatment/follow up of Hep C. She presented to her PCP Dr. Estrada 12/20 with c/ o abdominal pain in the RUQ, work up in Jan, CT abd revealed a small, cirrhotic appearing liver with splenomegaly and wall thickening of the distal stomach and duodenum, gallbladder wall appeared thickened, US revealed the same findings but, no stones, hepatobiliary scan was negative. Her pain gradually resolved spontaneously. Her CBC around that time showed a Hgb of 14.5 , WBC 3.1, ANC 1.71, and plt 99. She was referred to Dr. Puente for further evaluation and recommendations. Additional labs were ordered that were were negative and AFP was normal. Pt cytopenias were felt to be due to a combination of marrow suppression from her hep C/liver damage as well as splenic sequestration. Counts were low but in fairly safe range, pt was to f/u with Dr. Puente PRN with new or progressive symptoms. He has not seen pt since Feb 2016 Pt presented with persistent abd pain, she ran out of her prescribed pain meds. She denied fevers, vomiting, jaundice, tea colored urine, pale stool, diarrhea , she does have mild constipations sometime, appetite is fair. She was found to have a left breast mass incidentally that has been biopsied. Pt denies night sweats, she does not recall feeling the mass in her breast, denies breast pain, swelling, no unintentional wt. loss, new pain, unexplained fatigue. She does not recall mammogram, she does not do self breast exams. Review of Systems All systems: negative Constitutional: Reports as per HPI Past Medical History Past Medical History: GI Bleed, Hypertension, Liver Disease Additional Past Medical History / Comment(s): Hepatitis C, Vertigo; mass located in stomach from last admission, states has had esophageal banding History of Any Multi-Drug Resistant Organisms: None Reported Past Surgical History: Adenoidectomy, Tonsillectomy Additional Past Surgical History / Comment(s): EGD Past Anesthesia/Blood Transfusion Reactions: No Reported Reaction Past Psychological History: No Psychological Hx Reported Additional Psychological History / Comment(s): PT'S SON LIVES WITH HER. 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 NO MEDICAL EQUIPMENT. 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 Smoking Status: Current every day smoker Past Alcohol Use History: None Reported Additional Past Alcohol Use History / Comment(s): smokes 1pack every 3 days, has smoked since age 12 (1977) Past Drug Use History: None Reported - Past Family History Mother Family Medical History: Cancer Additional Family Medical History / Comment(s): of lung ca Father Family Medical History: Myocardial Infarction ([place]) Additional Family Medical History / Comment(s): from 2nd heart attack Medications and Allergies Allergies Allergy/AdvReac Type Severity Reaction Status Date / Time No Known Allergies Allergy Verified 07/08/16 10:45 Physical Exam Vitals: Vital Signs Temp Pulse Pulse Resp BP Pulse Ox 07/11/16 08:00 68 80 16 07/11/16 07:00 97.7 F 68 16 102/59 92 L 07/11/16 00:00 74 16 07/10/16 21:50 98.3 F 74 16 114/64 92 L 07/10/16 16:00 55 L 80 16 07/10/16 15:00 97.7 F 55 L 16 110/55 97 07/10/16 14:10 97.6 F 65 16 95/60 92 L 07/10/16 13:35 70 14 109/54 95 07/10/16 13:17 73 14 133/75 93 L Intake and Output 07/10/16 07/11/16 07/11/16 22:59 06:59 14:59 Intake Total 500 750 Balance 500 750 Intake: Intake, IV Titration 500 750 Amount Sodium Chloride 0.9% 1, 500 750 000 ml @ 125 mls/hr IV . Q8H [facility] Rx#:[id number] Other: # Voids 2 Weight 95.254 kg Bilateral breast exam-left breast, lemon size mass, medial to nipple line, mobile from chest wall, well circumscribed, some pain with palpation. Right breast no palpable abnormality. - Constitutional General appearance: cooperative, mild distress, obese - EENT Eyes: anicteric sclerae, poor dentition, normal appearance ENT: hearing grossly normal, normal oropharynx - Neck left anterior axilla lymph node Neck: lymphadenopathy - Respiratory Respiratory: bilateral: diminished - Cardiovascular Rhythm: regular Heart sounds: normal: S1, S2 leg Peripheral Edema: bilateral: None - Gastrointestinal General gastrointestinal: normal bowel sounds, soft, tenderness Localized gastrointestinal: tender: RUQ (fimness/fullness) - Neurologic Neurologic: CNII-XII intact - Musculoskeletal Musculoskeletal: strength equal bilaterally - Psychiatric Psychiatric: A&O x's 3, appropriate affect, intact judgment & insight Results CBC & Chem 7: 07/11/16 07:54 07/11/16 07:54 Labs: Abnormal Lab Results - Last 24 Hours (Table) 07/11/16 07/11/16 Range/Units 07:54 07:54 WBC 1.8 L* (3.8-10.6) k/uL RBC 3.46 L (3.80-5.40) m/uL Hgb 11.3 L (11.4-16.0) gm/dL Hct 33.4 L (34.0-46.0) % Plt Count 55 L (150-450) k/uL Neutrophils # 0.8 L (1.3-7.7) k/uL Lymphocytes # 0.8 L (1.0-4.8) k/uL Chloride 109 H (98-107) mmol/L Calcium 8.2 L (8.4-10.2) mg/dL Albumin 2.6 L (3.5-5.0) g/dL Comments: Breast US report reviewed H/B scan report reviewed Gallbladder US report reviewed Chest x-ray: report reviewed Abdominal x-ray: report reviewed CT scan - abdomen: report reviewed CT scan - pelvis: report reviewed Assessment and Plan (1) Leukopenia Narrative/Plan: When pt has been admitted previously she has had lower WBC counts during episodes of acute illness/stress. Pt ANC>500, no signs or symptoms of infection. No acute intervention. Pt will f/u with Dr. Puente to ensure return of CBC to baseline. Status: Acute (2) Left breast mass Narrative/Plan: This has been biopsied, f/u with Dr. Kwame for results. 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 No acute intervention. Status: Chronic Plan: Case discussed with IM.
--- NOTE | 2016-07-11 20:26 | PN ---
DATE OF SERVICE: 07/10/2016 CHIEF COMPLAINT: Abdominal pain. HISTORY OF PRESENT ILLNESS: This lady is still having some abdominal discomfort. It looks as though there is sludge in the gallbladder. She also has been identified as having a mass in the breast and this is going to be evaluated by surgery. They are not planning on scoping her again because this was just done several months ago and they feel there is no neoplasm of the stomach. PHYSICAL EXAMINATION: CHEST: Clear. CARDIAC: Normal. ABDOMEN: Soft, nontender. IMPRESSION: 1. Epigastric pain. 2. Possible lesion in the stomach. 3. Sludge in the gallbladder. 4. Lesion on left breast. PLAN: Await general surgery's recommendations.
--- NOTE | 2016-07-11 20:36 | PN ---
DATE OF SERVICE: 07/11/2016 CHIEF COMPLAINT: Abdominal pain, possible gastric mass, lesion in the left breast, hepatitis C and gallbladder sludge. HISTORY OF PRESENT ILLNESS: This lady had breast biopsy yesterday. She is doing fairly well. Nothing further is planned for GI tract at this time. Surgery feels that she can be discharged and I will follow her up as an outpatient regarding her breast biopsy, stomach pain, and gallbladder disease and hepatitis C and she will be discharged and this will be arranged by the nurse practitioner.
[2016-07-11] MEDS ORDERED: ALPRAZolam 0.25 MG TAB PO SCH (21:00)
== END 2016-07-11 13:09 | disposition home or self-care (01) ==
LOC: EC 09:46 → 5MS5E 14:25 → INTOOBSV 14:25 → 5MS5E 14:54
PROVIDERS: ADMIT Family Medicine; ATTEND Family Medicine
DX: R10.84 Generalized abdominal pain (principal); R10.11 Right upper quadrant pain; B18.2 Chronic viral hepatitis C; R10.13 Epigastric pain; I85.00 Esophageal varices without bleeding; C50.312 Malignant neoplasm of lower-inner quadrant of left female breast; F17.200 Nicotine dependence, unspecified, uncomplicated; K81.0 Acute cholecystitis; K82.9 Disease of gallbladder, unspecified; K74.60 Unspecified cirrhosis of liver; K76.6 Portal hypertension; J44.9 Chronic obstructive pulmonary disease, unspecified; F32.9 Major depressive disorder, single episode, unspecified; D72.819 Decreased white blood cell count, unspecified; Z80.1 Family history of malignant neoplasm of trachea, bronchus and lung; Z82.49 Family history of ischemic heart disease and other diseases of the circulatory system; D69.59 Other secondary thrombocytopenia
CPT/HCPCS: 96374; 96375 ×2; 96361; 99285; 36415; 93005; 86900; 86901; 88305; 80053 ×4; 82378; 82150; 83605; 83690 ×2; 84484; 85025 ×4; 85610; 85730; 86850; 82272; 81003; 81001; 88342; 88341; 87086; 74022; 19083; 76641; 76705; 74177; 78226; G0378 ×5; A4648; A9537; J2270 ×2; J2405 ×3; J1956; J1170 ×4; Q9967; C9113 ×3; 96365; 96376

== ENCOUNTER → 2016-07-28 | Outpatient (CLI) | payer MEDICARE, OTHER ==
--- NOTE | 2016-07-29 11:52 | MM ---
Reason for exam: additional evaluation requested from prior study. Baseline mammogram. History: Patient is postmenopausal and has history of breast cancer at age 50. Malignant US breast needle core LT of the left breast, July 10, 2016. Physical Findings: Nurse Summary: 5cm nodule in the left breast at 9-12 o'clock (nurse mm). MG 3D Diag Mammo W/Cad ALLYSON Bilateral CC and MLO view(s) were taken. There are scattered fibroglandular densities. Finding: There is a 60 mm circumscribed lobulated mass in the inner quadrant, middle position of the left breast consistent with known biopsy proven malignancy. Previous mammotome biopsy in the left breast medial aspect. There is no discrete abnormality. These results were verbally communicated with the patient and result sheet given to the patient on 07/28/16. ASSESSMENT: Suspicious, BI-RAD 4 RECOMMENDATION: Surgical consultation of the left breast. Manage on a clinical basis. Appropriate Oncological and surgical management. Called with mammographic findings and has scheduled an appointment for the patient for 07/29/16 at 10:[address] Ruvalcaba. PRELIMINARY REPORT CALLED AND FAXED TO DR. RUVALCABA ON 07/29/16 AT 300/TP. MTDD
== END | disposition home or self-care (01) ==
LOC: RADMAMWWP 07-26 09:00
PROVIDERS: ATTEND Surgery
DX: R93.8 Abnormal findings on diagnostic imaging of other specified body structures (principal); Z85.3 Personal history of malignant neoplasm of breast
CPT/HCPCS: 78815; G0204; G0279; A9552

== ENCOUNTER → 2016-08-05 | Outpatient (CLI) | payer MEDICARE, OTHER ==
[2016-08-05 17:36] LABS: INR 1.2 (<1.1); Prothrombin Time 12.1 sec (9.0-12.0)
[2016-08-05 17:50] LABS: CH 32.6; CHCM 34.4; HCT 38.8 % (34.0-46.0); HDW 3.21; HGB 13.4 gm/dL (11.4-16.0); MCH 32.9 pg (25.0-35.0); MCHC 34.6 g/dL (31.0-37.0); MCV 95.1 fL (80.0-100.0); RBC 4.08 m/uL (3.80-5.40); RDW 14.5 % (11.5-15.5); WBC 3.1 k/uL (3.8-10.6)
== END ==
LOC: LABWHC1 17:16
PROVIDERS: ATTEND Surgery
DX: C50.919 Malignant neoplasm of unspecified site of unspecified female breast (principal)
CPT/HCPCS: 85027; 85610

== ENCOUNTER 2016-08-06 09:27 | Day surgery (SDC) | payer MEDICARE, OTHER ==
[2016-08-04 15:36] VITALS: BMI 31.3
[~2016-08-06 09:27] MED LIST changes: +FAMOTIDINE 20 MG/2 ML VIAL IV PRN; +HEPARIN SODIUM,PORCINE 5,000 UNIT/ML 1 ML VIAL SQ ONE; +HYDROmorphone 1 MG/ML 1 ML SYRINGE IVP PRN; +LIDOCAINE 1% 20 ML VIAL (10MG/ML) FOR IV START INTRADERMA PRN; +MIDAZOLAM 2 MG/2 ML VIAL IV PRN; +ONDANSETRON 4 MG/2 ML VIAL IVP PRN; +ceFAZolin 2 GM in SODIUM CHLORIDE 0.9% 100 ML IVPB ONE
[2016-08-06 10:35] VITALS: TEMP 97.9
[2016-08-06] MEDS ORDERED: HEPARIN SODIUM,PORCINE 5,000 UNIT/ML 1 ML VIAL SQ ONE (10:44)
--- NOTE | 2016-08-06 11:20 | P.GSHP ---
History of Present Illness H&P Date: 08/06/16 Chief Complaint: Left breast cancer 50 years old female with known history of liver cirrhosis, pancytopenia, chronic abdominal pain with nausea and vomiting, history of IV drug abuse and chronic hepatitis C newly diagnosed with left breast cancer. Large left breast cancer more than 5 cm, ER negative, ME positive, HER-2/rm negative. Patient is undergoing new adjuvant chemotherapy. She presents today for Mediport placement. Last CBC and INR was drawn yesterday. Platelet count more than 60 K and INR 1.2. She continues to smoke cigarettes. She came for procedure on a bus. I called both her daughters in the preoperative area and discussed placement of Mediport for neoadjuvant chemotherapy. The risks, benefits and potential complications including bleeding, infection, inadvertent arterial injury, pneumothorax were discussed - Review of Systems Comment: All negative except stated in history of present illness Past Medical History Past Medical History: GI Bleed, Hypertension, Liver Disease Additional Past Medical History / Comment(s): Hepatitis C, Vertigo; mass located in stomach from last admission, states has had esophageal banding History of Any Multi-Drug Resistant Organisms: None Reported Past Surgical History: Adenoidectomy, Tonsillectomy Additional Past Surgical History / Comment(s): EGD Past Anesthesia/Blood Transfusion Reactions: No Reported Reaction Past Psychological History: No Psychological Hx Reported Additional Psychological History / Comment(s): PT'S SON LIVES WITH HER. 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 NO MEDICAL EQUIPMENT. 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 Smoking Status: Current some day smoker Past Alcohol Use History: None Reported Additional Past Alcohol Use History / Comment(s): smokes 1pack every 3 days, has smoked since age 12 (1977) Past Drug Use History: None Reported - Past Family History Mother Family Medical History: Cancer Additional Family Medical History / Comment(s): of lung ca Father Family Medical History: Myocardial Infarction ([place]) Additional Family Medical History / Comment(s): from 2nd heart attack Medications and Allergies Home Medications Medication Instructions Recorded Confirmed Type No Known Home Medications [No 08/04/16 08/04/16 History Known Home Medications] Allergies Allergy/AdvReac Type Severity Reaction Status Date / Time No Known Allergies Allergy Verified 08/06/16 10:35 Surgical - Exam Vital Signs Temp Pulse Resp BP Pulse Ox 97.9 F 82 16 162/82 97 08/06/16 10:34 08/06/16 10:34 08/06/16 10:34 08/06/16 10:34 08/06/16 10:34 Large 5 x 5 cm left breast mass. No axillary lymphadenopathy No hepatosplenomegaly. Abdomen is soft, nontender nondistended. 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 Right internal jugular MediPort placement under fluoroscopic and ultrasound guidance 2. Informed consent obtained and patient elected to undergo right internal jugular Mediport placement under fluoroscopic and ultrasound guidance. The risks, benefits and potential complications including bleeding, infection, inadvertent arterial puncture and pneumothorax was discussed and patient elected to undergo the procedure. 3. Preoperative antibiotics 4. Bilateral SCDs
[2016-08-06] MEDS ORDERED: HEPARIN SODIUM,PORCINE 100 UNIT/ML 5 ML VIAL IV ONE ×2 (11:54)
[2016-08-06] MEDS ORDERED: BUPIVACAIN-EPI 0.25%-1:200,000 30 ML VIAL SQ ONE (11:55)
[2016-08-06] MEDS ORDERED: MIDAZOLAM 2 MG/2 ML VIAL ONE (12:00)
[2016-08-06] MEDS ORDERED: PROPOFOL 10 MG/ML 20 ML VIAL IV ONE (12:00)
[2016-08-06] MEDS ORDERED: fentaNYL (PF) 50 MCG/ML 2 ML AMP ONE (12:00)
--- NOTE | 2016-08-06 13:02 | P.OP ---
Date of Procedure: 08/06/16 Preoperative Diagnosis: Left breast cancer Obesity BMI 31.3 Hepatitis C Portal hypertension Pancytopenia Postoperative Diagnosis: Same Procedure(s) Performed: Right internal jugular Mediport placement 8 Romanian under SonoSite and fluoroscopic guidance Implants: Powerport reference number [id number], lot number [id number], Expiry date :03/02/2018 Anesthesia: MAC, local Surgeon: Kandace Ruvalcaba Pathology: none sent Condition: other (ASA 4) Disposition: PACU Indications for Procedure: 50 years old female presents with large more than 5 cm left breast cancer. She is undergoing new adjuvant chemotherapy. Informed consent obtained and patient elected to undergo right internal jugular Mediport placement under fluoroscopy and ultrasound guidance Operative Findings: 8-Romanian MediPort inserted in right internal jugular vein. Description of Procedure: The patient was brought to the operating room and placed in supine position with both arms tucked. A footboard was placed. Chlorhexidine was used to prep the neck followed by application of sterile drapes and an Ioban dressing . A timeout was performed to verify correct patient and correct procedure. Patient was confirmed to receive perioperative IV antibiotics and VTE prophylaxis. An ultrasound was performed of the right neck to identify the carotid artery and internal jugular vein. The internal jugular vein was compressible and patent . Photodocumentation was made. Local anesthetic was infiltrated to create a field block. Seldinger technique was used and the internal jugular vein was accessed under direct ultrasound guidance. There was good backflow of dark venous blood. The guidewire was inserted and fluoroscopic images obtained to confirm the tip in SVC. The needle was removed followed by insertion of a dilator peel-away sheath. Local anesthetic was infiltrated along the inferior aspect of the right clavicle. A 2.5 cm skin incision was made and dissection was carried up to the pectoralis major muscle. A pocket was created for the port. The catheter tubing was connected to the port using the conector after flushing both the port and the catheter with normal saline. The tunneling device was connected to the end of the catheter and after placement of the port in the subcutaneous pocket the tunneling device was passed from the lower incision to the counter incision in the neck. The catheter was measured at the junction of SVC and right atrium. The inner cannula of the peel-away sheath was removed and catheter was gradually inserted. The peel-away sheath was gradually removed. Fluoroscopic image confirmed the tip of the catheter at the junction of SVC and right atrium. There was no kink, fold or torsion of the catheter and the port. The B[place]on needle was used to access the port and easy backflow was obtained. This was flushed with 10 mL of normal saline and 10 mL of Hep-Lock was inserted. The skin incision was closed in 3 layers using 3-0 Vicryl interrupted stitches and a running suture of 4-0 Monocryl. Counter incision in the neck was also closed using 3-0 Vicryl followed by 4-0 Monocryl. Dermabond skin glue was applied followed by Telfa and Tegaderm dressing. The sponge, instrument and needle count were correct x 2 Patient tolerated the procedure well and was taken to post anesthesia care unit in stable condition Final chest x-ray showed the tip of the catheter in SVC and no pneumothorax. Total fluoroscopic time was 6 seconds
--- NOTE | 2016-08-06 13:51 | XR ---
EXAMINATION TYPE: XR chest 1V confirm line plcde DATE OF EXAM: 08/06/2016 1:46 PM COMPARISON: 03/08/2016 HISTORY: 50 year-old female post Mediport placement TECHNIQUE: Single frontal view of the chest is obtained. FINDINGS: Right anterior chest wall injection port with catheter tip near the cavoatrial junction. Heart is upp er limits of normal in size. Aorta and pulmonary vasculature within normal limits. Some minimal perip heral left basilar opacity could represent atelectasis. No significant pleural effusion. IMPRESSION: Right anterior chest wall injection port with catheter tip near the cavoatrial junction. Some minimal atelectasis or infiltrate at the peripheral left base.
--- NOTE | 2016-08-06 13:59 | FL ---
Fluoroscopy HISTORY: Pain 6 seconds fluoroscopy time supplied to the referring clinician. 1 intraoperative C-arm images docume nt the procedure. See dictated report from general surgery.
[2016-08-06 14:00] VITALS: RESP 18
[2016-08-06 14:15] VITALS: BP 130/80; PULSE 82
== END 2016-08-06 16:11 | disposition home or self-care (01) ==
LOC: OR 09:27
PROVIDERS: ATTEND Surgery
DX: C50.911 Malignant neoplasm of unspecified site of right female breast (principal); Z17.1 Estrogen receptor negative status [ER-]; E66.9 Obesity, unspecified; Z68.31 Body mass index [BMI] 31.0-31.9, adult; B18.2 Chronic viral hepatitis C; F17.210 Nicotine dependence, cigarettes, uncomplicated; K76.6 Portal hypertension; D69.6 Thrombocytopenia, unspecified; K74.60 Unspecified cirrhosis of liver; Z79.891 Long term (current) use of opiate analgesic; Z79.899 Other long term (current) drug therapy; I85.00 Esophageal varices without bleeding
CPT/HCPCS: 77001; 36561; 76937; C1788; J2250; J1644; J1642; J0690; J2405; J3010; J2704

== ENCOUNTER 2016-08-26 19:58 | Emergency (ER) | payer MEDICARE, OTHER ==
[2016-08-26] MEDS ORDERED: GLUCAGON 1 MG/ML VIAL IVP STA (20:17)
[2016-08-26] MEDS ORDERED: METOCLOPRAMIDE 5 MG/ML 2 ML VIAL IVP STA (20:17)
--- NOTE | 2016-08-26 20:27 | XR ---
EXAMINATION TYPE: XR soft tissue neck DATE OF EXAM: 08/26/2016 8:23 PM COMPARISON: NONE HISTORY: Something stuck in the throat TECHNIQUE: 2 views FINDINGS: Subglottic trachea appears normal. Epiglottis is normal. I see no sign of a foreign body. IMPRESSION: Negative cervical soft tissue exam.
--- NOTE | 2016-08-26 20:29 | ED ---
ENT HPI - General Chief complaint: ENT Stated complaint: poss FB in throat Time Seen by Provider: 08/26/16 20:07 Source: patient, RN notes reviewed Mode of arrival: ambulatory Limitations: no limitations - History of Present Illness Initial comments: 50-year-old female presents emergency Department with chief complaint of possible foreign body in throat. 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 She states she has no difficulty swallowing but states that she has eczema patches every once a while. She has had pain in her esophagus by Dr. Joseph secondary to esophageal varices. Patient states she also had some mouth sores which have resolved now which states is related to her chemotherapy that she started for breast cancer. Patient denies fever, chills. Denies any shortness of breath. - Related Data Home Medications Medication Instructions Recorded Confirmed Hydrocodone/Acetaminophen [[place] 0.5 tab PO Q8H PRN 08/26/16 08/26/16 5-325] Lidocaine-Prilocaine Cream [[place] 1 applic TOPICAL DAILY PRN 08/26/16 08/26/16 Cream 2.5%/2.5%] Prochlorperazine [Compazine] 10 mg PO Q6H PRN 08/26/16 08/26/16 Allergies Allergy/AdvReac Type Severity Reaction Status Date / Time No Known Allergies Allergy Verified 08/26/16 20:29 Review of Systems ROS Statement: Those systems with pertinent positive or pertinent negative responses have been documented in the HPI. ROS Other: All systems not noted in ROS Statement are negative. Past Medical History Past Medical History: Cancer, GI Bleed, Hypertension, Liver Disease Additional Past Medical History / Comment(s): Hepatitis C, Vertigo; mass located in stomach from last admission, states has had esophageal banding History of Any Multi-Drug Resistant Organisms: None Reported Past Surgical History: Adenoidectomy, Tonsillectomy Additional Past Surgical History / Comment(s): EGD Past Anesthesia/Blood Transfusion Reactions: No Reported Reaction Past Psychological History: No Psychological Hx Reported Additional Psychological History / Comment(s): PT'S SON LIVES WITH HER. 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 NO MEDICAL EQUIPMENT. 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 Smoking Status: Current some day smoker Past Alcohol Use History: None Reported Additional Past Alcohol Use History / Comment(s): smokes 1pack every 3 days, has smoked since age 12 (1977) Past Drug Use History: None Reported - Past Family History Mother Family Medical History: Cancer Additional Family Medical History / Comment(s): of lung ca Father Family Medical History: Myocardial Infarction (CT) Additional Family Medical History / Comment(s): from 2nd heart attack General Exam Limitations: no limitations General appearance: alert, in no apparent distress Head exam: Present: atraumatic, normocephalic, normal inspection Eye exam: Present: normal appearance, PERRL, EOMI. Absent: scleral icterus, conjunctival injection, periorbital swelling ENT exam: Present: mucous membranes moist, TM's normal bilaterally, normal external ear exam. Absent: normal oropharynx (Edentulous, erythematous on the posterior pharynx noted) Neck exam: Present: normal inspection, full ROM. Absent: tenderness, meningismus, lymphadenopathy Respiratory exam: Present: normal lung sounds bilaterally. Absent: respiratory distress, wheezes, rales, rhonchi, stridor Cardiovascular Exam: Present: regular rate, normal rhythm, normal heart sounds. Absent: systolic murmur, diastolic murmur, rubs, gallop, clicks Course Vital Signs 08/26/16 20:01 Temperature 98.6 F Pulse Rate 107 H Respiratory 20 Rate Blood Pressure 135/86 O2 Sat by Pulse 98 Oximetry Medical Decision Making - Medical Decision Making 50-year-old female presented for possible foreign body in throat. Patient may have had a fluid bolus. Patient did gets relief with the Reglan and glucagon. Patient states she felt some irritation still was given viscous lidocaine. She states that essentially resolved. Patient will follow-up with Dr. Ewing if symptoms persist and she is seen in the past for banding of her esophagus. Patient has no difficulty swallowing or difficulty breathing at this time. Disposition Clinical Impression: Food impaction of esophagus Disposition: HOME SELF-CARE Condition: Stable Instructions: Esophageal Stricture (ED) Additional Instructions: Please follow-up with Dr. Joseph as directed.Please return to the Emergency Department if symptoms worsen or any other concerns. Referrals: Mark Estrada MD [Primary Care Provider] - 1-2 days Time of Disposition: 21:49
[2016-08-26] MEDS ORDERED: LIDOCAINE VISCOUS 2% 15 ML CUP MUCOUS MEM ONE (21:04)
[2016-08-26 22:12] VITALS: BP 126/59; PULSE 98; RESP 18; TEMP 98.4
== END 2016-08-26 22:12 | disposition home or self-care (01) ==
LOC: EC 19:58
DX: K56.49 Other impaction of intestine (principal); F17.200 Nicotine dependence, unspecified, uncomplicated; Z87.19 Personal history of other diseases of the digestive system; Z90.89 Acquired absence of other organs
CPT/HCPCS: 70360; 99283; 96374; 96375; J1610; J2765

== ENCOUNTER 2016-09-19 13:02 | Inpatient (IN) | payer MEDICARE, OTHER ==
[2016-09-19] MEDS ORDERED: ONDANSETRON 4 MG/2 ML VIAL IVP STA (13:26)
[2016-09-19] MEDS ORDERED: MORPHINE SULFATE 4 MG/ML SYRINGE IV STA (13:26)
[2016-09-19] MEDS ORDERED: ACETAMINOPHEN IV (For NPO) 1,000 MG in EMPTY BAG 1 BAG IVPB STA (13:33)
[2016-09-19] MEDS ORDERED: KETOROLAC 30 MG/ML 1 ML VIAL IVP STA (13:34)
--- NOTE | 2016-09-19 13:35 | ED ---
General Adult HPI - General Chief complaint: Dental/Oral Stated complaint: mouth sores Time Seen by Provider: 09/19/16 13:12 Source: patient, RN notes reviewed, old records reviewed Mode of arrival: ambulatory Limitations: no limitations - History of Present Illness Initial comments: This is a 51 female with a ER for evaluation. Rescuing for ER for evaluation of severe oral pain, fever. Basically going to chemotherapy. 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 Secondary to cost. Patient's significant medical history of hep C liver disease and CVA. - Related Data Home Medications Medication Instructions Recorded Confirmed Hydrocodone/Acetaminophen [[place] 0.5 tab PO Q8H PRN 08/26/16 09/19/16 5-325] Prochlorperazine [Compazine] 10 mg PO Q6H PRN 08/26/16 09/19/16 Dexamethasone [Dexamethasone] 8 mg PO DIRECTED 09/19/16 09/19/16 Omeprazole [Omeprazole] 20 mg PO BID 09/19/16 09/19/16 Allergies Allergy/AdvReac Type Severity Reaction Status Date / Time No Known Allergies Allergy Verified 09/19/16 14:15 Review of Systems ROS Statement: Those systems with pertinent positive or pertinent negative responses have been documented in the HPI. ROS Other: All systems not noted in ROS Statement are negative. Past Medical History Past Medical History: Cancer, GI Bleed, Hypertension, Liver Disease Additional Past Medical History / Comment(s): Hepatitis C, Vertigo; mass located in stomach from last admission, states has had esophageal banding History of Any Multi-Drug Resistant Organisms: None Reported Past Surgical History: Adenoidectomy, Tonsillectomy Additional Past Surgical History / Comment(s): EGD Past Anesthesia/Blood Transfusion Reactions: No Reported Reaction Past Psychological History: No Psychological Hx Reported Smoking Status: Current some day smoker Past Alcohol Use History: None Reported Past Drug Use History: None Reported - Past Family History Mother Family Medical History: Cancer Additional Family Medical History / Comment(s): of lung ca Father Family Medical History: Myocardial Infarction (ID) Additional Family Medical History / Comment(s): from 2nd heart attack General Exam Limitations: no limitations General appearance: alert, in no apparent distress Head exam: Present: atraumatic, normocephalic, normal inspection Eye exam: Present: normal appearance, PERRL, EOMI. Absent: scleral icterus, conjunctival injection, periorbital swelling ENT exam: Present: mucous membranes moist, other (severe oral thrush and swelling) Neck exam: Present: normal inspection. Absent: tenderness, meningismus, lymphadenopathy Respiratory exam: Present: normal lung sounds bilaterally. Absent: respiratory distress, wheezes, rales, rhonchi, stridor Cardiovascular Exam: Present: regular rate, normal rhythm, normal heart sounds. Absent: systolic murmur, diastolic murmur, rubs, gallop, clicks GI/Abdominal exam: Present: soft, normal bowel sounds. Absent: distended, tenderness, guarding, rebound, rigid Extremities exam: Present: normal inspection, full ROM, normal capillary refill. Absent: tenderness, pedal edema, joint swelling, calf tenderness Back exam: Present: normal inspection Neurological exam: Present: alert, oriented X3, CN II-XII intact Psychiatric exam: Present: normal affect, normal mood Skin exam: Present: warm, dry, intact, normal color. Absent: rash Course Vital Signs 09/19/16 09/19/16 13:04 14:56 Temperature 102 F H 101.0 F H Pulse Rate 105 H 111 H Respiratory 18 16 Rate Blood Pressure 130/57 107/53 O2 Sat by Pulse 100 96 Oximetry - Reevaluation(s) Reevaluation #1: 09/19/16 15:00 Patient is at this point having better pain control, feeling better with hydration Medical Decision Making - Medical Decision Making 51 female with urinary for evaluation. Patient is here for evaluation of mouth pain, patient currently going through chemo, neutropenia, positive fever, will be admitted for febrile neutropenia. Theragran by special antibiotics and follow-up with oncology - Lab Data Result diagrams: 09/19/16 13:50 09/19/16 13:50 Lab Results 09/19/16 09/19/16 09/19/16 Range/Units 13:20 13:50 13:50 WBC 0.1 L* (3.8-10.6) k/uL RBC 2.36 L (3.80-5.40) m/uL Hgb 7.6 L D (11.4-16.0) gm/dL Hct 22.2 L (34.0-46.0) % MCV 93.8 (80.0-100.0) fL MCH 32.3 (25.0-35.0) pg MCHC 34.4 (31.0-37.0) g/dL RDW 17.6 H (11.5-15.5) % Plt Count 14 L* D (150-450) k/uL Differential Comment Manual Slide Review Performed Poikilocytosis Slight Anisocytosis Slight Macrocytosis Slight Sodium (137-145) mmol/L Potassium (3.5-5.1) mmol/L Chloride (98-107) mmol/L Carbon Dioxide (22-30) mmol/L Anion Gap mmol/L BUN (7-17) mg/dL Creatinine (0.52-1.04) mg/dL Est GFR (MDRD) Af Amer (>60 ml/min/1.73 sqM) Est GFR (MDRD) Non-Af (>60 ml/min/1.73 sqM) Glucose (74-99) mg/dL Calcium (8.4-10.2) mg/dL Phosphorus (2.5-4.5) mg/dL Magnesium (1.6-2.3) mg/dL Total Bilirubin (0.2-1.3) mg/dL AST (14-36) U/L ALT (9-52) U/L Alkaline Phosphatase (38-126) U/L Total Creatine Kinase <20 L (30-135) U/L CK-MB (CK-2) <0.2 (0.0-2.4) ng/mL CK-MB (CK-2) Rel Index Total Protein (6.3-8.2) g/dL Albumin (3.5-5.0) g/dL Urine Color Dark Brown Urine Appearance Cloudy H (Clear) Urine pH 5.5 (5.0-8.0) Ur Specific [place] 1.029 (1.001-1.035) Urine Protein 1+ H (Negative) Urine Glucose (UA) Trace H (Negative) Urine Ketones Trace H (Negative) Urine Blood Trace H (Negative) Urine Nitrite Negative (Negative) Urine Bilirubin 1+ H (Negative) Urine Urobilinogen >12.0 (<2.0) mg/dL Ur Leukocyte Esterase Negative (Negative) Urine RBC 1 (0-5) /hpf Urine WBC 6 H (0-5) /hpf Ur Squamous Epith Cells 12 H (0-4) /hpf Urine Mucus Many H (None) /hpf 09/19/16 Range/Units 13:50 WBC (3.8-10.6) k/uL RBC (3.80-5.40) m/uL Hgb (11.4-16.0) gm/dL Hct (34.0-46.0) % MCV (80.0-100.0) fL MCH (25.0-35.0) pg MCHC (31.0-37.0) g/dL RDW (11.5-15.5) % Plt Count (150-450) k/uL Differential Comment Manual Slide Review Poikilocytosis Anisocytosis Macrocytosis Sodium 138 (137-145) mmol/L Potassium 4.2 (3.5-5.1) mmol/L Chloride 107 (98-107) mmol/L Carbon Dioxide 22 (22-30) mmol/L Anion Gap 9 mmol/L BUN 19 H (7-17) mg/dL Creatinine 0.51 L (0.52-1.04) mg/dL Est GFR (MDRD) Af Amer >60 (>60 ml/min/1.73 sqM) Est GFR (MDRD) Non-Af >60 (>60 ml/min/1.73 sqM) Glucose 128 H (74-99) mg/dL Calcium 8.5 (8.4-10.2) mg/dL Phosphorus 2.4 L (2.5-4.5) mg/dL Magnesium 1.8 (1.6-2.3) mg/dL Total Bilirubin 4.7 H (0.2-1.3) mg/dL AST 21 (14-36) U/L ALT 31 (9-52) U/L Alkaline Phosphatase 53 (38-126) U/L Total Creatine Kinase (30-135) U/L CK-MB (CK-2) (0.0-2.4) ng/mL CK-MB (CK-2) Rel Index Total Protein 6.0 L (6.3-8.2) g/dL Albumin 2.8 L (3.5-5.0) g/dL Urine Color Urine Appearance (Clear) Urine pH (5.0-8.0) Ur Specific [place] (1.001-1.035) Urine Protein (Negative) Urine Glucose (UA) (Negative) Urine Ketones (Negative) Urine Blood (Negative) Urine Nitrite (Negative) Urine Bilirubin (Negative) Urine Urobilinogen (<2.0) mg/dL Ur Leukocyte Esterase (Negative) Urine RBC (0-5) /hpf Urine WBC (0-5) /hpf Ur Squamous Epith Cells (0-4) /hpf Urine Mucus (None) /hpf Critical Care Time Critical Care Time: Yes Total Critical Care Time: 31 Disposition Clinical Impression: Thrombocytopenia, Leukopenia, Fever, Gingivitis, Oral dinh Disposition: ADMITTED IP TO THIS [facility] Condition: Poor Referrals: Mark Estrada MD [Primary Care Provider] - 1-2 days
[2016-09-19] MEDS: SODIUM CHLORIDE 0.9% 1,000 ML IV STA ×2 (13:51→15:49)
[2016-09-19 14:03] LABS: Anisocytosis Slight; CH 32.6; HCT 22.2 % (34.0-46.0); HDW 3.69; Immature Gran Flag Moderate; MCH 32.3 pg (25.0-35.0); MCHC 34.4 g/dL (31.0-37.0); MCV 93.8 fL (80.0-100.0); Macrocytosis Slight; Mean Platelet Volume 10.3; Poikilocytosis Slight; RBC 2.36 m/uL (3.80-5.40); RDW 17.6 % (11.5-15.5); WBC (Perox) 0.08
--- NOTE | 2016-09-19 14:14 | XR ---
EXAMINATION TYPE: XR chest 2V DATE OF EXAM: 09/19/2016 COMPARISON: 08/06/2016 INDICATION: Weakness fever TECHNIQUE: Frontal and lateral views of the chest are obtained. FINDINGS: The heart size is normal. The pulmonary vasculature is normal. The lungs are clear. Port is present on the right with the tip in the distal superior vena cava yoselyn on. IMPRESSION: 1. No acute pulmonary process.
[2016-09-19 14:15] LABS: WBC 0.1 k/uL (3.8-10.6)
[2016-09-19 14:17] LABS: Appearance,Urine Cloudy (Clear); Bilirubin,Urine 1+ (Negative); Glucose,Urine (UA) Trace (Negative); Ketones,Urine Trace (Negative); Leukocyte Esterase,Urine Negative (Negative); Mucus,Urine Many /hpf; Nitrite,Urine Negative (Negative); PH, Urine 5.5 (5.0-8.0); Particle Count 43044; Protein,Urine 1+ (Negative); RBC,Urine 1 /hpf (0-5); Specific Gravity,Urine 1.029 (1.001-1.035); Squamous Epithelial Cell,Urine 12 /hpf (0-4); UA Billing (MACRO vs. MICRO) MICRO; Urobilinogen,Urine >12.0 mg/dL (<2.0); WBC,Urine 6 /hpf (0-5)
[2016-09-19 14:20] LABS: ALT 31 U/L (9-52); AST 21 U/L (14-36); Alkaline Phosphatase 53 U/L (38-126); Anion Gap 9 mmol/L; Blood Urea Nitrogen 19 mg/dL (7-17); Calcium 8.5 mg/dL (8.4-10.2); Carbon Dioxide 22 mmol/L (22-30); Chloride 107 mmol/L (98-107); Glucose 128 mg/dL (74-99); Magnesium 1.8 mg/dL (1.6-2.3); Non-African American GFR(MDRD) >60 (>60 ml/min/1.73 sqM); Phosphorous 2.4 mg/dL (2.5-4.5); Potassium 4.2 mmol/L (3.5-5.1); Sodium 138 mmol/L (137-145); Total Bilirubin 4.7 mg/dL (0.2-1.3)
[2016-09-19 14:24] LABS: Creatine Kinase <20 U/L (30-135)
[2016-09-19 14:29] LABS: Add Differential Manual Differential
[2016-09-19 14:30] LABS: Manual Review Performed
[2016-09-19] MEDS ORDERED: IV VANCOMYCIN PER PHARMACY 1 EACH MISC MISCELLANE PRN (14:32)
[2016-09-19] MEDS ORDERED: PIPERACILLIN-TAZOBACTAM 3.375 GM in DEXTROSE/WATER 1 50ML.BAG IVPB STA (14:32)
[2016-09-19 14:34] LABS: Creatine Kinase MB <0.2 ng/mL (0.0-2.4)
[2016-09-19] MEDS ORDERED: VANCOMYCIN 1,750 MG in SODIUM CHLORIDE 0.9% 250 ML IVPB STA (14:49)
[2016-09-19 14:57] LABS: HGB 7.6 gm/dL (11.4-16.0)
[2016-09-19] MEDS ORDERED: MORPHINE SULFATE 4 MG/ML SYRINGE IVP PRN (14:58)
[2016-09-19] MEDS ORDERED: MORPHINE SULFATE 4 MG/ML SYRINGE IVP STA (14:58)
[2016-09-19] MEDS ORDERED: IBUPROFEN ORAL SUSP 100 MG/5 ML CUP PO PRN (15:00)
[2016-09-19] MEDS ORDERED: ACETAMINOPHEN ORAL SUSP 160 MG/5 ML CUP PO PRN (15:00)
[2016-09-19] MEDS: NYSTATIN 100,000 UNIT/ML SUSP 500,000 UNIT/5 ML CUP PO SCH ×2 (18:19→21:59)
[2016-09-19] MEDS: ACETAMINOPHEN ORAL SUSP (PEDS) 3,840 MG/120 ML BOTTLE PO PRN (19:42)
[2016-09-19] MEDS: SODIUM CHLORIDE 0.9% 250 ML IV SCH (23:23)
[2016-09-20] MEDS: PIPERACILLIN-TAZOBACTAM 3.375 GM in DEXTROSE/WATER 1 50ML.BAG IVPB SCH ×2 (00:41→08:15)
[2016-09-20] MEDS: SODIUM CHLORIDE 0.9% 250 ML IV SCH ×8 (00:41→04:24)
[2016-09-20] MEDS: ACETAMINOPHEN ORAL SUSP (PEDS) 3,840 MG/120 ML BOTTLE PO PRN ×2 (03:15→14:35)
[2016-09-20] MEDS: VANCOMYCIN 1,500 MG in SODIUM CHLORIDE 0.9% 250 ML IVPB SCH ×3 (04:15→23:06)
[2016-09-20] MEDS ORDERED: SODIUM CHLORIDE 0.9% 500 ML IV ONE (07:55)
[2016-09-20] MEDS: MORPHINE SULFATE 2 MG/ML SYRINGE IVP PRN ×3 (08:06→12:48)
[2016-09-20] MEDS: MAG HYDROX/AL HYDROX/SIMETH 30 ML, diphenhydrAMINE ELIXIR 75 MG, LIDOCAINE VISCOUS 30 ML PO PRN ×9 (08:38→23:08)
[2016-09-20] MEDS: NYSTATIN 100,000 UNIT/ML SUSP 500,000 UNIT/5 ML CUP PO SCH (08:39)
[2016-09-20] MEDS: SODIUM CHLORIDE 0.9% 1,000 ML IV SCH ×2 (09:07→11:05)
--- NOTE | 2016-09-20 12:43 | P.CONS ---
History of Present Illness - Reason for Consult Consult date: 09/19/16 Febrile neutropenia. Chemotherapy induced pancytopenia - History of Present Illness The patient is a 51-year-old lady, well known to myself. She has a known history of cirrhosis due to hepatitis C, and had not been compliant with treatment in the past. She was initially seen because of her low WBC and platelets (3-4, and 50-70), which were determined to be due to liver disease and splenic sequestration. The patient did subsequently established with the GI for hep C treatment. She was seen in 07/21, for a lump on her left breast. On ultrasound, the mass was larger than 6 cm. Biopsy was positive for invasive ductal carcinoma, triple negative. She was started on neoadjuvant chemotherapy with dose dense Adriamycin and is status post 2 cycles. The patient received her most recent treatment on 09/12/16. She did receive Neulasta on 09/13/16. 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 However she could not do so because of cost issues. The patient developed a fever with the chills yesterday, associated with increased weakness. She therefore came in to the emergency room, where she was found to have a T max of 102+. CBC showed significant pancytopenia with hemoglobin of 7.4, platelets of 14, and white count 0.4. She is complaining of "cough", which actually appears to be fairly clear upper airway and oral secretions. She denied any other localizing signs. She was admitted and started on broad-spectrum antibiotics. Consult placed for further evaluation and recommendations Review of Systems Constitutional: Reports chills, Reports fever, Reports weakness Eyes: denies blurred vision, denies pain Ears, nose, mouth and throat: Reports mouth pain, Reports odynophagia, Reports sore throat Cardiovascular: Reports dyspnea on exertion Respiratory: Reports cough Gastrointestinal: Denies abdominal pain, Denies diarrhea, Denies nausea, Denies vomiting Genitourinary: Denies dysuria, Denies hematuria Menstruation: Reports postmenopausal Integumentary: Denies pruritus, Denies rash Neurological: Reports weakness Psychiatric: Reports depression Endocrine: Reports fatigue Hematologic/Lymphatic: Reports as per HPI Past Medical History Past Medical History: Cancer, GERD/Reflux, GI Bleed, Hypertension, Liver Disease Additional Past Medical History / Comment(s): Hepatitis C, Vertigo;"benign abd mass", states has had esophageal banding, lt breast cancer had chemo last on 09-12, lt ear hearing loss History of Any Multi-Drug Resistant Organisms: None Reported Past Surgical History: Adenoidectomy, Tonsillectomy Additional Past Surgical History / Comment(s): EGD, rtchest mediport 08-06-16, "esophageal banding" Past Anesthesia/Blood Transfusion Reactions: No Reported Reaction Additional Past Anesthesia/Blood Transfusion Reaction / Comm: blood transfusions - no reaction Smoking Status: Current some day smoker - Past Family History Mother Family Medical History: Cancer Additional Family Medical History / Comment(s): of lung ca Father Family Medical History: Myocardial Infarction (MD) Additional Family Medical History / Comment(s): from 2nd heart attack Medications and Allergies Home Medications Medication Instructions Recorded Confirmed Type Hydrocodone/Acetaminophen [[place] 0.5 tab PO Q8H PRN 08/26/16 09/19/16 History 5-325] Prochlorperazine [Compazine] 10 mg PO Q6H PRN 08/26/16 09/19/16 History Dexamethasone [Dexamethasone] 8 mg PO DIRECTED 09/19/16 09/19/16 History Omeprazole [Omeprazole] 20 mg PO BID 09/19/16 09/19/16 History Allergies Allergy/AdvReac Type Severity Reaction Status Date / Time No Known Allergies Allergy Verified 09/19/16 14:15 Physical Exam Vitals: Vital Signs Temp Pulse Resp BP Pulse Ox 09/19/16 16:34 98.9 F 67 16 101/51 99 09/19/16 16:00 98.9 F 99 16 101/51 96 09/19/16 15:00 98.8 F 94 16 98/43 97 09/19/16 14:56 101.0 F H 111 H 16 107/53 96 09/19/16 13:04 102 F H 105 H 18 130/57 100 Intake and Output 09/19/16 09/19/16 09/19/16 06:59 14:59 22:59 Other: Weight 86.183 kg Patient Weight 09/20/16 06:59 Weight 86.183 kg - Constitutional General appearance: no acute distress - EENT Eyes: EOMI, PERRLA ENT: hearing grossly normal, pharyngeal erythema, thrush - Neck Neck: no lymphadenopathy - Respiratory Respiratory: bilateral: CTA - Cardiovascular Rhythm: regular Heart sounds: normal: S1, S2 - Gastrointestinal General gastrointestinal: normal bowel sounds, soft - Integumentary Integumentary: normal - Neurologic Neurologic: CNII-XII intact - Musculoskeletal Musculoskeletal: generalized weakness, strength equal bilaterally - Psychiatric Psychiatric: A&O x's 3, appropriate affect Results CBC & Chem 7: 09/19/16 13:50 09/19/16 13:50 Labs: Abnormal Lab Results - Last 24 Hours (Table) 09/19/16 09/19/16 09/19/16 Range/Units 13:20 13:50 13:50 WBC 0.1 L* (3.8-10.6) k/uL RBC 2.36 L (3.80-5.40) m/uL Hgb 7.6 L D (11.4-16.0) gm/dL Hct 22.2 L (34.0-46.0) % RDW 17.6 H (11.5-15.5) % Plt Count 14 L* D (150-450) k/uL BUN (7-17) mg/dL Creatinine (0.52-1.04) mg/dL Glucose (74-99) mg/dL Phosphorus (2.5-4.5) mg/dL Total Bilirubin (0.2-1.3) mg/dL Total Creatine Kinase <20 L (30-135) U/L Total Protein (6.3-8.2) g/dL Albumin (3.5-5.0) g/dL Urine Appearance Cloudy H (Clear) Urine Protein 1+ H (Negative) Urine Glucose (UA) Trace H (Negative) Urine Ketones Trace H (Negative) Urine Blood Trace H (Negative) Urine Bilirubin 1+ H (Negative) Urine WBC 6 H (0-5) /hpf Ur Squamous Epith Cells 12 H (0-4) /hpf Urine Mucus Many H (None) /hpf 09/19/16 Range/Units 13:50 WBC (3.8-10.6) k/uL RBC (3.80-5.40) m/uL Hgb (11.4-16.0) gm/dL Hct (34.0-46.0) % RDW (11.5-15.5) % Plt Count (150-450) k/uL BUN 19 H (7-17) mg/dL Creatinine 0.51 L (0.52-1.04) mg/dL Glucose 128 H (74-99) mg/dL Phosphorus 2.4 L (2.5-4.5) mg/dL Total Bilirubin 4.7 H (0.2-1.3) mg/dL Total Creatine Kinase (30-135) U/L Total Protein 6.0 L (6.3-8.2) g/dL Albumin 2.8 L (3.5-5.0) g/dL Urine Appearance (Clear) Urine Protein (Negative) Urine Glucose (UA) (Negative) Urine Ketones (Negative) Urine Blood (Negative) Urine Bilirubin (Negative) Urine WBC (0-5) /hpf Ur Squamous Epith Cells (0-4) /hpf Urine Mucus (None) /hpf Chest x-ray: report reviewed Assessment and Plan (1) Neutropenic sepsis Narrative/Plan: The patient is presenting with significant neutropenia due to chemotherapy, as well as evidence of high fever and other signs of SIRS. This is consistent with neutropenic sepsis. At this time we don't have a definite localizing infection. The patient has been appropriately admitted, and started on broad- spectrum antibiotics with vancomycin and Zosyn. Cultures are pending at this time. ID has been consulted. The patient has already received Neulasta, and neutrophil recovery is anticipated in the next 2-3 days. If neutrophils are still less than 1000, and day 10 post Neulasta, then additional filgrastim will be ordered. Defer to ID, for antibiotic management Status: Acute (2) Pancytopenia due to antineoplastic chemotherapy Narrative/Plan: At this time, hemoglobin and platelets are in a safe range. The patient has no evidence of any active bleeding. Continue to follow and transfuse as needed to keep hemoglobin above 7 and platelet 10. The patient has already received Neulasta, as noted, for her WBC. Status: Acute (3) Breast cancer Narrative/Plan: Given the development of febrile neutropenia despite the use of growth factors, we will likely need to initiate dose adjustment with the next cycle. This will be on hold, until the patient has fully recovered from his acute episode Status: Acute
--- NOTE | 2016-09-20 12:46 | P.PN ---
Subjective Principal diagnosis: Febrile neutropenia, chemotherapy-induced pancytopenia The patient is complaining of persistent mouth pain and sore throat with some difficulty in swallowing. She has had some mild loose stools today. Fever has resolved. She still feels quite weak. Objective - Vital Signs Vital signs: Vital Signs Temp 97.9 F 09/20/16 07:00 Pulse 87 09/20/16 07:00 Resp 18 09/20/16 07:00 BP 104/54 09/20/16 11:04 Pulse Ox 100 09/20/16 07:00 Intake & Output 09/19/16 09/20/16 09/20/16 18:59 06:59 18:59 Intake Total 800 Balance 800 Weight 86.183 kg Intake: Intake, IV Titration 800 Amount Piperacillin-Tazobactam 3 550 .375 gm In Dextrose/Water 1 50ml.bag @ 12.5 mls/hr IVPB Q8HR [facility] Rx#: [id number] Vancomycin 1,500 mg In 250 Sodium Chloride 0.9% 250 ml @ 125 mls/hr IVPB Q8H [facility] Rx#:[id number] Other: # Voids 2 - Constitutional General appearance: Present: no acute distress - EENT Eyes: Present: PERRLA, poor dentition ENT: Present: normal oropharynx (Generalized mucositis, with exudate on tongue.) - Respiratory Respiratory: bilateral: CTA - Cardiovascular Rhythm: regular Heart sounds: normal: S1, S2 - Gastrointestinal General gastrointestinal: Present: normal bowel sounds, soft - Integumentary Integumentary: Present: normal - Neurologic Neurologic: Present: CNII-XII intact - Musculoskeletal Musculoskeletal: Present: generalized weakness, strength equal bilaterally - Psychiatric Psychiatric: Present: A&O x's 3, appropriate affect - Labs CBC & Chem 7: 09/19/16 13:50 09/19/16 13:50 Labs: Abnormal Lab Results - Last 24 Hours (Table) 09/19/16 09/19/16 09/19/16 Range/Units 13:20 13:50 13:50 WBC 0.1 L* (3.8-10.6) k/uL RBC 2.36 L (3.80-5.40) m/uL Hgb 7.6 L D (11.4-16.0) gm/dL Hct 22.2 L (34.0-46.0) % RDW 17.6 H (11.5-15.5) % Plt Count 14 L* D (150-450) k/uL BUN (7-17) mg/dL Creatinine (0.52-1.04) mg/dL Glucose (74-99) mg/dL Phosphorus (2.5-4.5) mg/dL Total Bilirubin (0.2-1.3) mg/dL Total Creatine Kinase <20 L (30-135) U/L Total Protein (6.3-8.2) g/dL Albumin (3.5-5.0) g/dL Urine Appearance Cloudy H (Clear) Urine Protein 1+ H (Negative) Urine Glucose (UA) Trace H (Negative) Urine Ketones Trace H (Negative) Urine Blood Trace H (Negative) Urine Bilirubin 1+ H (Negative) Urine WBC 6 H (0-5) /hpf Ur Squamous Epith Cells 12 H (0-4) /hpf Urine Mucus Many H (None) /hpf 09/19/16 Range/Units 13:50 WBC (3.8-10.6) k/uL RBC (3.80-5.40) m/uL Hgb (11.4-16.0) gm/dL Hct (34.0-46.0) % RDW (11.5-15.5) % Plt Count (150-450) k/uL BUN 19 H (7-17) mg/dL Creatinine 0.51 L (0.52-1.04) mg/dL Glucose 128 H (74-99) mg/dL Phosphorus 2.4 L (2.5-4.5) mg/dL Total Bilirubin 4.7 H (0.2-1.3) mg/dL Total Creatine Kinase (30-135) U/L Total Protein 6.0 L (6.3-8.2) g/dL Albumin 2.8 L (3.5-5.0) g/dL Urine Appearance (Clear) Urine Protein (Negative) Urine Glucose (UA) (Negative) Urine Ketones (Negative) Urine Blood (Negative) Urine Bilirubin (Negative) Urine WBC (0-5) /hpf Ur Squamous Epith Cells (0-4) /hpf Urine Mucus (None) /hpf Microbiology - Last 24 Hours (Table) 09/19/16 13:20 Urine Culture - Preliminary Urine,Voided Assessment and Plan (1) Neutropenic sepsis Narrative/Plan: The patient's fever has resolved. Overnight, she had had low blood pressure. This has improved with IV fluids. The patient remained asymptomatic during this episodes. Critical care medicine was consulted in this regard. Continue antibiotics. Cultures are negative so far. CBC was ordered today and is pending. Status: Acute (2) Pancytopenia due to antineoplastic chemotherapy Narrative/Plan: CBC from today is pending. If needed, transfusion support will be initiated. The patient has known history of cirrhosis and hepatitis C, and had baseline leukopenia and from cytopenia. Therefore the depth of her josue from chemotherapy is likely more severe. Status: Acute (3) Breast cancer Status: Acute Plan: Increased morphine dose for her oral and throat pain. Add Carafate.
[2016-09-20 12:55] LABS: Anisocytosis Slight; CH 32.5; HDW 3.69; Large Platelets Flag Slight; MCH 32.5 pg (25.0-35.0); MCHC 33.8 g/dL (31.0-37.0); MCV 96.1 fL (80.0-100.0); Macrocytosis Slight; Mean Platelet Volume 11.2; Poikilocytosis Slight; RBC 1.81 m/uL (3.80-5.40); RDW 17.3 % (11.5-15.5)
[2016-09-20 13:05] LABS: WBC 0.1 k/uL (3.8-10.6)
[2016-09-20 13:08] LABS: HGB 5.9 gm/dL (11.4-16.0)
[2016-09-20 13:09] LABS: HCT 17.4 % (34.0-46.0)
[2016-09-20 13:20] LABS: ALT 26 U/L (9-52); AST 16 U/L (14-36); Alkaline Phosphatase 40 U/L (38-126); Anion Gap 6 mmol/L; Blood Urea Nitrogen 17 mg/dL (7-17); Calcium 7.6 mg/dL (8.4-10.2); Carbon Dioxide 21 mmol/L (22-30); Chloride 111 mmol/L (98-107); Glucose 101 mg/dL (74-99); Non-African American GFR(MDRD) >60 (>60 ml/min/1.73 sqM); Potassium 3.8 mmol/L (3.5-5.1); Sodium 138 mmol/L (137-145); Total Protein 4.9 g/dL (6.3-8.2)
[2016-09-20] MEDS ORDERED: ACETAMINOPHEN IV (For NPO) 1,000 MG in EMPTY BAG 1 BAG IVPB PRN (14:41)
--- NOTE | 2016-09-20 16:22 | HP ---
DATE OF ADMISSION: Lori Barakat is a 51-year-old female who presented to the ED on 09/19/2016. At that time, she had been having difficulty swallowing, had pain in her mouth and had been undergoing chemotherapy for history of breast cancer. She also had been having a fever and was subsequently seen in the ED and admitted for further evaluation and management. Past medical history is positive for cirrhosis of the liver, hepatitis C, history of breast cancer on the left breast, recent Mediport placement in August 2016. SOCIAL HISTORY: The patient has a history of smoking about a pack every 3 days, smoked since age 12. Drinks alcohol occasionally. Family history is positive for lung cancer in her mother, coronary artery disease and [place] in her father. Medications prior to admission were: 1. Hydrocodone with acetaminophen. 2. Compazine. 3. Omeprazole. 4. Dexamethasone. Review of systems is positive for decreased appetite, weakness and tiredness. On physical examination, her blood pressure is 98/54, respiratory rate 18, pulse rate 87, temperature 97.9. HEENT reveals patient with hair loss. No jugular venous distention. There is some ulceration ( ) oral mucosa. Chest is clear. Cardiovascular system reveals an S1, S2. Abdomen is soft. There is no pedal edema. White count is 0.1 thousand, hemoglobin of 7.6, platelet count of 14,000. Sodium 138, potassium 4.2, chloride 107, bicarb 22, BUN 19, creatinine 0.51. UA showed trace glucose, trace ketones, trace blood, 1+ bilirubin. IMPRESSION AT THIS TIME: 1. Neutropenia with sepsis. 2. Breast cancer, status post chemotherapy. 3. Acute renal insufficiency in part due to prerenal azotemia. 4. Pancytopenia. 5. Breast cancer for which the patient is undergoing chemotherapy at this time. 6. Oral thrush, for which she is on nystatin and COOL solution. At this point in time, I will have ID and Medical/Oncology further evaluate the patient. Aggressively hydrate her. Keep her on Zosyn and vancomycin at this time. Will defer to Oncology on deciding if the patient would need platelet transfusion or blood transfusions. Her pancytopenia is most likely chemotherapy related. Patient's prognosis at this time is extremely guarded. She was counseled regarding her condition and this approach.
[2016-09-20] MEDS ORDERED: HYDROmorphone 1 MG/ML 1 ML SYRINGE IVP PRN (16:23)
[2016-09-20 16:31] VITALS: BMI 28.0
[2016-09-20] MEDS: MORPHINE SULFATE 4 MG/ML SYRINGE IVP PRN ×2 (17:00→20:43)
[2016-09-20] MEDS: MAG HYDROX/AL HYDROX/SIMETH 30 ML, diphenhydrAMINE ELIXIR 75 MG, LIDOCAINE VISCOUS 30 ML PO SCH ×3 (17:02)
[2016-09-20] MEDS: MICAFUNGIN 100 MG in SODIUM CHLORIDE 0.9% 100 ML IVPB SCH (18:18)
[2016-09-20] MEDS: SUCRALFATE 1 GM TAB PO SCH (18:19)
--- NOTE | 2016-09-20 19:41 | P.CONS ---
History of Present Illness - Reason for Consult Consult date: 09/20/16 - Chief Complaint Fever and neutropenia - History of Present Illness Pleasant 51-year-old female who appears to be much older than her stated age presents to Hospital feeling very poorly. She was having some shortness of breath with cough. Significant and severe pain to oral cavity with increasing inability to chew and eat and swallow. It was starting difficulties to even swallow her own saliva. She was coughing consistently but it was not a bloody material. Because she felt so poorly she presented to the emergency center and admitted with evidence of fever and neutropenia. The patient has the history of known hepatitis C which apparently has been treated in the past the effectiveness is not known at this time. Patient however developed in July of this year breast carcinoma. Biopsy showed evidence of invasive ductal carcinoma which was triple negative. She with neoadjuvant chemotherapy with Adriamycin. She is now status post her second cycle is developed significant pancytopenia, and fever. She can see was admitted and infectious diseases consultation is been requested. The patient is quite miserable. She is not able to even effectively use the numbing oral medication because of how she is feeling at this time. She is in significant misery. She was having some relative hypotension due to her pain medications which has worsened her current pain. Review of Systems HEENT: Feels poorly. She's had an intermittent headache. These are not very new. Denies sinus discomforts. No bleeding from the nasal cavity or ears. Oral cavity is noted per the HPI is very uncomfortable. She's having difficulty eating putting a numbing medication and her oral cavity. Lungs: Denies significant shortness of breath, cough, sputum production, or hemoptysis. Cardiovascular: Denies significant shortness of breath, chest pain, chest wall pain, orthopnea, dyspnea on exertion, syncope Gastrointestinal:Denies nausea, vomiting, diarrhea, constipation, hematemesis, melena, hematochezia. No no significant change of bowel habit noticed. Musculoskeletal: denies significant myalgias or arthralgias. No new joint swelling. Denies new back pain. Skin: Denies new rash or lesions. No new ulcers or wounds are related.. Neuro: Denies headache or visual change. Denies any new onset weakness or difficulty with ambulation. Denies falls or seizures. Psychiatric:Denies anxiety or depression. Endocrine: To her fatigue and malaise and has ongoing weight loss thought to be due to her malignancy. Past Medical History Past Medical History: Cancer, GERD/Reflux, GI Bleed, Hypertension, Liver Disease Additional Past Medical History / Comment(s): Hepatitis C, Vertigo;"benign abd mass", states has had esophageal banding, lt breast cancer had chemo last on 09-12, lt ear hearing loss History of Any Multi-Drug Resistant Organisms: None Reported Past Surgical History: Adenoidectomy, Tonsillectomy Additional Past Surgical History / Comment(s): EGD, rtchest mediport 08-06-16, "esophageal banding" Past Anesthesia/Blood Transfusion Reactions: No Reported Reaction Additional Past Anesthesia/Blood Transfusion Reaction / Comm: blood transfusions - no reaction Additional Psychological History / Comment(s): Has a history of hepatitis C with esophageal variceal bleeds requiring banding several years ago. Continues to smoke. No current injection drug use. No experience. No international travel. No animal exposures. Lives with her family Smoking Status: Current some day smoker - Past Family History Mother Family Medical History: Cancer Additional Family Medical History / Comment(s): of lung ca Father Family Medical History: Myocardial Infarction ([place]) Additional Family Medical History / Comment(s): from 2nd heart attack Medications and Allergies Home Medications and Allergies Comment(s): Current Medications Al Hydroxide/Mg Hydroxide 30 ml/ Diphenhydramine HCl 75 mg/Lidocaine HCl 30 ml 0 ml PO TID PRN PRN Reason: pain Last Admin: 09/20/16 17:00 Dose: 30 ml Al Hydroxide/Mg Hydroxide 30 ml/ Diphenhydramine HCl 75 mg/Lidocaine HCl 30 ml 0 ml PO TID [facility] Last Admin: 09/20/16 17:02 Dose: 30 ml Vancomycin HCl 1,500 mg/ (Sodium Chloride) 250 mls @ 125 mls/hr IVPB Q8H [facility] Last Admin: 09/20/16 12:49 Dose: 125 mls/hr Sodium Chloride (Saline 0.9%) 1,000 mls @ 150 mls/hr IV .Q6H40M [facility] Last Admin: 09/20/16 11:05 Dose: 150 mls/hr Acetaminophen 1,000 mg/ IV (Solution) 100 mls @ 400 mls/hr IVPB Q6HR PRN PRN Reason: Fever Stop: 09/21/16 12:14 Last Admin: 09/20/16 14:52 Dose: 400 mls/hr Ceftazidime 2 gm/ Sodium (Chloride) 100 mls @ 100 mls/hr IVPB Q8HR [facility] Last Admin: 09/20/16 17:03 Dose: 100 mls/hr Micafungin Sodium 100 mg/ (Sodium Chloride) 100 mls @ 100 mls/hr IVPB DAILY@ 1700 [facility] Last Admin: 09/20/16 18:18 Dose: 100 mls/hr Miscellaneous Information (Vancomycin Trough Due) 0 each MISCELLANE DIRECTED ONE Stop: 09/21/16 03:01 Morphine Sulfate (Morphine Sulfate (Inj)) 2 mg IVP Q2H PRN PRN Reason: Severe Pain/Discomfort Last Admin: 09/20/16 12:48 Dose: 2 mg Morphine Sulfate (Morphine Sulfate (Inj)) 4 mg IVP Q4HR PRN PRN Reason: Pain Last Admin: 09/20/16 17:00 Dose: 4 mg Ondansetron HCl (Zofran) 4 mg IVP Q6HR PRN PRN Reason: Nausea And Vomiting Sucralfate (Carafate) 1 gm PO AC-TID [facility] Last Admin: 09/20/16 18:19 Dose: 1 gm Home Medications Medication Instructions Recorded Confirmed Type Hydrocodone/Acetaminophen [[place] 0.5 tab PO Q8H PRN 08/26/16 09/19/16 History 5-325] Prochlorperazine [Compazine] 10 mg PO Q6H PRN 08/26/16 09/19/16 History Dexamethasone [Dexamethasone] 8 mg PO DIRECTED 09/19/16 09/19/16 History Omeprazole [Omeprazole] 20 mg PO BID 09/19/16 09/19/16 History Allergies Allergy/AdvReac Type Severity Reaction Status Date / Time No Known Allergies Allergy Verified 09/19/16 14:15 Physical Exam Vitals: Vital Signs Temp Pulse Pulse Resp BP BP Pulse Ox 09/20/16 17:20 100.3 F H 104 H 18 101/56 94 L 09/20/16 16:50 100.3 F H 104 H 16 104/51 94 L 09/20/16 16:40 100.4 F H 110 H 16 88/51 94 L 09/20/16 15:00 101.2 F H 115 H 24 107/56 94 L 09/20/16 11:04 104/54 09/20/16 07:00 97.9 F 87 18 98/54 100 09/20/16 03:00 112/52 09/20/16 02:00 98.7 F 95 90/45 99 09/19/16 23:00 99.1 F 101 H 16 95/45 98 09/19/16 22:00 84/46 09/19/16 21:15 101.5 F H 111 H 16 88/44 97 09/19/16 20:30 102.9 F H 119 H 113/49 99 09/19/16 19:30 100.8 F H 157 H 152/79 Intake and Output 09/20/16 09/20/16 09/20/16 06:59 14:59 22:59 Intake Total 750 600 0 Output Total 300 Balance 750 600 -300 Intake: Intake, IV Titration 750 Amount Piperacillin-Tazobactam 3 500 .375 gm In Dextrose/Water 1 50ml.bag @ 12.5 mls/hr IVPB Q8HR [facility] Rx#: [id number] Vancomycin 1,500 mg In 250 Sodium Chloride 0.9% 250 ml @ 125 mls/hr IVPB Q8H [facility] Rx#:[id number] Oral 600 Blood Product 0 Rc As-1 Unit 0 [id number] Output: Urine 300 Other: # Voids 2 1 Weight 86.183 kg Patient Weight 09/21/16 06:59 Weight 86.183 kg 51-year-old female who appears much older than her stated age. She is quite miserable. HEENT: Anicteric conjunctiva are pale. Nasal mucosa without bleeding or lesions. Oral mucosa shows evidence of mikayla mucositis and probable thrush. It is friable and bleeds easily very painful and she has difficulty trying to swallow her secretions she however is not gagging or choking. Neck: The neck is supple without significant lymphadenopathy or thyromegaly. Lungs: Good bilateral air entry without significant crackles scattered wheezes are noted though.. There is no significant bronchial sounds. There is no egophony or dullness. Heart: Regular rate and rhythm with an audible S1-S2, no S3 no S4. There is no significant murmur click or rub, PMI was nondisplaced. Abdomen: Positive bowel sounds soft and nontender without palpable masses or organomegaly. There was no guarding or rebound. Extremities: The upper extremities have excellent pulses they are symmetric, no significant petechiae or telangiectasia. No splinter hemorrhages were noted. The lower extremities are free from significant edema. The peripheral pulses were 2+ and symmetric. Neuro: Awake alert oriented to person place and time. There are no acute new gross focal sensory motor deficits. His miserable. Results CBC & Chem 7: 09/20/16 12:34 09/20/16 12:34 Labs: Abnormal Lab Results - Last 24 Hours (Table) 09/19/16 09/20/16 09/20/16 Range/Units 13:50 12:34 12:34 WBC 0.1 L* (3.8-10.6) k/uL RBC 1.81 L (3.80-5.40) m/uL Hgb 5.9 L* D (11.4-16.0) gm/dL Hct 17.4 L* (34.0-46.0) % RDW 17.3 H (11.5-15.5) % Plt Count 8 L* (150-450) k/uL Chloride 111 H (98-107) mmol/L Carbon Dioxide 21 L (22-30) mmol/L Creatinine 0.50 L (0.52-1.04) mg/dL Glucose 101 H (74-99) mg/dL Calcium 7.6 L (8.4-10.2) mg/dL Total Bilirubin 3.0 H (0.2-1.3) mg/dL Total Protein 4.9 L (6.3-8.2) g/dL Albumin 2.1 L (3.5-5.0) g/dL Crossmatch See Detail Microbiology - Last 24 Hours (Table) 09/19/16 13:20 Urine Culture - Final Urine,Voided 09/19/16 13:50 Blood Culture - Preliminary Blood No Growth after 24 hours Laboratory Results WBC 0.1 k/uL (3.8-10.6) L* 09/20/16 12:34 RBC 1.81 m/uL (3.80-5.40) L 09/20/16 12:34 Hgb 5.9 gm/dL (11.4-16.0) L* D 09/20/16 12:34 Hct 17.4 % (34.0-46.0) L* 09/20/16 12:34 MCV 96.1 fL (80.0-100.0) 09/20/16 12:34 MCH 32.5 pg (25.0-35.0) 09/20/16 12:34 MCHC 33.8 g/dL (31.0-37.0) 09/20/16 12:34 RDW 17.3 % (11.5-15.5) H 09/20/16 12:34 Plt Count 8 k/uL (150-450) L* 09/20/16 12:34 Differential Comment 09/19/16 13:50 Manual Slide Review Performed 09/19/16 13:50 Poikilocytosis Slight 09/20/16 12:34 Anisocytosis Slight 09/20/16 12:34 Macrocytosis Slight 09/20/16 12:34 Sodium 138 mmol/L (137-145) 09/20/16 12:34 Potassium 3.8 mmol/L (3.5-5.1) 09/20/16 12:34 Chloride 111 mmol/L (98-107) H 09/20/16 12:34 Carbon Dioxide 21 mmol/L (22-30) L 09/20/16 12:34 Anion Gap 6 mmol/L 09/20/16 12:34 BUN 17 mg/dL (7-17) 09/20/16 12:34 Creatinine 0.50 mg/dL (0.52-1.04) L 09/20/16 12:34 Est GFR (MDRD) Af Amer >60 (>60 ml/min/1.73 sqM) 09/20/16 12:34 Est GFR (MDRD) Non-Af >60 (>60 ml/min/1.73 sqM) 09/20/16 12:34 Glucose 101 mg/dL (74-99) H 09/20/16 12:34 Plasma Lactic Acid [place] 1.8 mmol/L (0.7-2.0) 09/19/16 22:39 Calcium 7.6 mg/dL (8.4-10.2) L 09/20/16 12:34 Phosphorus 2.4 mg/dL (2.5-4.5) L 09/19/16 13:50 Magnesium 1.8 mg/dL (1.6-2.3) 09/19/16 13:50 Total Bilirubin 3.0 mg/dL (0.2-1.3) H 09/20/16 12:34 AST 16 U/L (14-36) 09/20/16 12:34 ALT 26 U/L (9-52) 09/20/16 12:34 Alkaline Phosphatase 40 U/L (38-126) 09/20/16 12:34 Total Creatine Kinase <20 U/L (30-135) L 09/19/16 13:50 CK-MB (CK-2) <0.2 ng/mL (0.0-2.4) 09/19/16 13:50 CK-MB (CK-2) Rel Index 09/19/16 13:50 Total Protein 4.9 g/dL (6.3-8.2) L 09/20/16 12:34 Albumin 2.1 g/dL (3.5-5.0) L 09/20/16 12:34 Urine Color Dark Brown 09/19/16 13:20 Urine Appearance Cloudy (Clear) H 09/19/16 13:20 Urine pH 5.5 (5.0-8.0) 09/19/16 13:20 Ur Specific [place] 1.029 (1.001-1.035) 09/19/16 13:20 Urine Protein 1+ (Negative) H 09/19/16 13:20 Urine Glucose (UA) Trace (Negative) H 09/19/16 13:20 Urine Ketones Trace (Negative) H 09/19/16 13:20 Urine Blood Trace (Negative) H 09/19/16 13:20 Urine Nitrite Negative (Negative) 09/19/16 13:20 Urine Bilirubin 1+ (Negative) H 09/19/16 13:20 Urine Urobilinogen >12.0 mg/dL (<2.0) 09/19/16 13:20 Ur Leukocyte Esterase Negative (Negative) 09/19/16 13:20 Urine RBC 1 /hpf (0-5) 09/19/16 13:20 Urine WBC 6 /hpf (0-5) H 09/19/16 13:20 Ur Squamous Epith Cells 12 /hpf (0-4) H 09/19/16 13:20 Urine Mucus Many /hpf (None) H 09/19/16 13:20 Blood Type O Positive 09/19/16 13:50 Blood Type Recheck No 09/19/16 13:50 Antibody Screen NEGATIVE 09/19/16 13:50 Crossmatch See Detail 09/19/16 13:50 Spec Expiration Date 09/22/2016 - 234909/19/16 13:50 Microbiology 09/19/16 13:20 Urine,Voided Urine Culture - Final 09/19/16 13:50 Blood Blood Culture - Preliminary No Growth after 24 hours Assessment and Plan (1) Breast cancer Status: Acute (2) Febrile neutropenia Narrative/Plan: 51-year-old woman with an extensive past medical history includes hepatitis C and more recently breast carcinoma. She's undergone 2 cycles of chemotherapy and presents with evidence of fever and pancytopenia. She has significant high- grade fever and extensive mucositis. Antibiotic therapy will become anxious and from Zosyn to cefepime to improve the toxicity to the bone marrow. Vancomycin is appropriate this point in time with a very extensive nature of the mucositis. Especially while cultures are pending. Antifungal therapy is added with micafungin given the extensive mucositis. Parameters for pain medication have been added so that if her blood pressure is adequate she can have the dose it's more effective in controlling her pain. Receiving transfusions as needed. Await recovery of her bone marrow if is not occurring after day 10 May need further growth factors. However if underlying infection can be improved this may not be needed. Suggesting that she can swish and spit the oral cool solution. She does not need to swallow it. Initially improved with and have that option. Nutrition is going to be a significant difficulty until her white count recovers and her mucositis improves. Status: Acute (3) Pancytopenia due to antineoplastic chemotherapy Status: Acute
[2016-09-21] MEDS: MORPHINE SULFATE 4 MG/ML SYRINGE IVP PRN ×4 (00:52→20:52)
[2016-09-21] MEDS: MAG HYDROX/AL HYDROX/SIMETH 30 ML, diphenhydrAMINE ELIXIR 75 MG, LIDOCAINE VISCOUS 30 ML PO SCH ×12 (01:10→22:21)
[2016-09-21] MEDS: SODIUM CHLORIDE 0.9% 1,000 ML IV SCH ×5 (01:10→23:30)
[2016-09-21] MEDS: CEFEPIME 2 GM in SODIUM CHLORIDE 0.9% 50 ML IVPB SCH ×4 (01:20→23:30)
[2016-09-21 02:38] LABS: Anisocytosis Slight; CHCM 34.7; HCT 20.7 % (34.0-46.0); HDW 3.46; HGB 7.2 gm/dL (11.4-16.0); MCH 32.1 pg (25.0-35.0); MCHC 34.6 g/dL (31.0-37.0); MCV 92.8 fL (80.0-100.0); Mean Platelet Volume 9.8; Poikilocytosis Slight; RBC 2.23 m/uL (3.80-5.40); RDW 16.5 % (11.5-15.5)
[2016-09-21 02:41] LABS: WBC 0.1 k/uL (3.8-10.6)
[2016-09-21] MEDS ORDERED: VANCOMYCIN TROUGH DUE 1 EACH MISC MISCELLANE ONE (03:00)
[2016-09-21 03:15] LABS: ALT 29 U/L (9-52); AST 13 U/L (14-36); Alkaline Phosphatase 36 U/L (38-126); Anion Gap 6 mmol/L; Blood Urea Nitrogen 17 mg/dL (7-17); Calcium 7.8 mg/dL (8.4-10.2); Carbon Dioxide 22 mmol/L (22-30); Chloride 111 mmol/L (98-107); Glucose 104 mg/dL (74-99); Non-African American GFR(MDRD) >60 (>60 ml/min/1.73 sqM); Potassium 3.5 mmol/L (3.5-5.1); Sodium 139 mmol/L (137-145); Total Bilirubin 3.7 mg/dL (0.2-1.3); Total Protein 4.5 g/dL (6.3-8.2)
[2016-09-21] MEDS: MAG HYDROX/AL HYDROX/SIMETH 30 ML, diphenhydrAMINE ELIXIR 75 MG, LIDOCAINE VISCOUS 30 ML PO PRN ×3 (04:30)
[2016-09-21] MEDS: VANCOMYCIN 1,500 MG in SODIUM CHLORIDE 0.9% 250 ML IVPB SCH ×3 (06:19→19:35)
[2016-09-21 08:42] LABS: Mean Platelet Volume 9.9
[2016-09-21] MEDS: MORPHINE SULFATE 2 MG/ML SYRINGE IVP PRN (08:45)
[2016-09-21] MEDS: SUCRALFATE 1 GM TAB PO SCH ×3 (08:47→17:09)
[2016-09-21] MEDS: NICOTINE 14MG/24HR PATCH TRANSDERM SCH (12:34)
[2016-09-21] MEDS: MICAFUNGIN 100 MG in SODIUM CHLORIDE 0.9% 100 ML IVPB SCH (17:05)
--- NOTE | 2016-09-21 20:30 | PN ---
DATE OF SERVICE: 09/21/2016 She has been hemodynamically more stable with no episodes of hypotension. She is feeling stronger overall. She has a poor appetite and continues to mouth pain. On physical examination, her blood pressure 105/51, respiratory rate 20, pulse rate of 89, temperature 99.4. HEENT is unremarkable. Chest is clear. Cardiovascular system reveals an S1 and S2. Abdomen is soft. There is no edema. White count is 0.1, hemoglobin 7.2, platelet count 5000 and repeat this morning is 13,000. Sodium 139, potassium 3.5, chloride 111, bicarb 22, BUN 17, creatinine 0.7, bilirubin 3.7, albumin of 2. IMPRESSION: 1. Breast cancer, status post chemotherapy. 2. Neutropenic sepsis. 3. Pancytopenia. 4. Severe malnutrition and malnourished state. 5. Severe thrombocytopenia. 6. Neutropenic sepsis. At this point in time, keep her pain under control. Continue IV fluids, continue antibiotics per ID in the form of vancomycin, cefepime and micafungin. Her prognosis at this time is guarded.
--- NOTE | 2016-09-22 00:02 | P.PN ---
Subjective Principal diagnosis: Febrile neutropenia and sepsis. Chemotherapy-induced pancytopenia On the patient continues to have significant mucositis and upper airway secretions. Fever pattern is better. She has some mild diarrhea off and on. She denies any nausea or vomiting. She is in significant discomfort because of the mucositis and essentially enable to swallow anything other than small sips of liquid Objective - Vital Signs Vital signs: Vital Signs Temp 98.3 F 09/21/16 20:50 Pulse 99 09/21/16 20:50 Resp 16 09/21/16 20:50 BP 127/58 09/21/16 20:50 Pulse Ox 97 09/21/16 20:50 Intake & Output 09/21/16 09/21/16 09/22/16 06:59 18:59 06:59 Intake Total 913 50 Output Total 750 250 Balance 163 -200 Intake: Oral 50 Blood Product 913 Platelet Irr Pheresis 293 Acda1 Unit [id number] Rc As-1 Unit 310 [id number] Rc As-1 Unit 310 [id number] Output: Urine 750 250 Other: # Voids 3 1 - Constitutional General appearance: Present: mild distress - EENT Eyes: Present: PERRLA ENT: Present: hearing grossly normal, pharyngeal erythema, thrush - Respiratory Respiratory: bilateral: CTA - Cardiovascular Rhythm: regular Heart sounds: normal: S1, S2 - Gastrointestinal General gastrointestinal: Present: normal bowel sounds, soft - Integumentary Integumentary: Present: normal - Neurologic Neurologic: Present: CNII-XII intact - Musculoskeletal Musculoskeletal: Present: generalized weakness, strength equal bilaterally - Psychiatric Psychiatric: Present: A&O x's 3 - Labs CBC & Chem 7: 09/21/16 08:11 09/21/16 02:23 Labs: Abnormal Lab Results - Last 24 Hours (Table) 09/21/16 09/21/16 09/21/16 Range/Units 02:23 02:23 08:11 WBC 0.1 L* (3.8-10.6) k/uL RBC 2.23 L (3.80-5.40) m/uL Hgb 7.2 L (11.4-16.0) gm/dL Hct 20.7 L (34.0-46.0) % RDW 16.5 H (11.5-15.5) % Plt Count 5 L* 13 L* D (150-450) k/uL Chloride 111 H (98-107) mmol/L Creatinine 0.50 L (0.52-1.04) mg/dL Glucose 104 H (74-99) mg/dL Calcium 7.8 L (8.4-10.2) mg/dL Total Bilirubin 3.7 H (0.2-1.3) mg/dL AST 13 L (14-36) U/L Alkaline Phosphatase 36 L (38-126) U/L Total Protein 4.5 L (6.3-8.2) g/dL Albumin 2.0 L (3.5-5.0) g/dL Microbiology - Last 24 Hours (Table) 09/19/16 13:50 Blood Culture - Preliminary Blood No Growth after 48 hours Assessment and Plan (1) Neutropenic sepsis Narrative/Plan: The patient's hemodynamics are much improved. She has had some mild hypertension related to pain medications. Fever has resolved. She remains significantly neutropenic. If white cells 7 not recovered by tomorrow, filgrastim will be started. Patient has been seen by ID. She continues on vancomycin and cefepime. Micafungin has been added. Cultures negative so far Status: Acute (2) Pancytopenia due to antineoplastic chemotherapy Narrative/Plan: This continues to be quite profound. Hemoglobin was greater than 7 today. Platelets were again less than 10 due to which an additional unit of platelets were ordered. Continue to monitor and transfuse to keep hemoglobin greater than 7 and platelets 210. 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 This continues to be quite significant and interfering with her comfort and ability to swallow. Continue IV hydration. This is expected to improve once white count recovers.
[2016-09-22] MEDS: MORPHINE SULFATE 4 MG/ML SYRINGE IVP PRN ×6 (00:59→21:51)
[2016-09-22] MEDS: VANCOMYCIN 1,500 MG in SODIUM CHLORIDE 0.9% 250 ML IVPB SCH ×3 (03:27→19:36)
[2016-09-22 05:39] LABS: Anisocytosis Slight; CH 32.7; CHCM 35.9; HCT 20.8 % (34.0-46.0); HDW 3.57; HGB 7.3 gm/dL (11.4-16.0); MCH 31.9 pg (25.0-35.0); MCHC 34.8 g/dL (31.0-37.0); MCV 91.5 fL (80.0-100.0); Mean Platelet Volume 9.8; Poikilocytosis Slight; RBC 2.28 m/uL (3.80-5.40); RDW 16.1 % (11.5-15.5)
[2016-09-22 05:41] LABS: WBC 0.5 k/uL (3.8-10.6)
[2016-09-22 06:22] LABS: ALT 21 U/L (9-52); AST 13 U/L (14-36); Alkaline Phosphatase 39 U/L (38-126); Anion Gap 8 mmol/L; Blood Urea Nitrogen 15 mg/dL (7-17); Calcium 7.9 mg/dL (8.4-10.2); Carbon Dioxide 22 mmol/L (22-30); Chloride 111 mmol/L (98-107); Glucose 88 mg/dL (74-99); Non-African American GFR(MDRD) >60 (>60 ml/min/1.73 sqM); Potassium 3.2 mmol/L (3.5-5.1); Sodium 141 mmol/L (137-145); Total Bilirubin 3.1 mg/dL (0.2-1.3)
[2016-09-22] MEDS: CEFEPIME 2 GM in SODIUM CHLORIDE 0.9% 50 ML IVPB SCH ×2 (08:08→16:42)
[2016-09-22] MEDS: NICOTINE 14MG/24HR PATCH TRANSDERM SCH (08:09)
[2016-09-22] MEDS: SUCRALFATE 1 GM TAB PO SCH ×3 (08:09→16:49)
[2016-09-22] MEDS: MAG HYDROX/AL HYDROX/SIMETH 30 ML, diphenhydrAMINE ELIXIR 75 MG, LIDOCAINE VISCOUS 30 ML PO PRN ×9 (08:14→21:52)
[2016-09-22] MEDS: SODIUM CHLORIDE 0.9% 1,000 ML IV SCH ×2 (08:17→16:45)
[2016-09-22] MEDS: MAG HYDROX/AL HYDROX/SIMETH 30 ML, diphenhydrAMINE ELIXIR 75 MG, LIDOCAINE VISCOUS 30 ML PO SCH ×6 (08:18→16:44)
--- NOTE | 2016-09-22 08:57 | P.PN ---
Subjective 51-year-old female sitting up on the edge of the bed. Patient continues to report having difficult time with oral intake. Continues to have sore mouth with a sore throat making it difficult to swallow. Patients being followed by oncology and infectious disease service. Patient has a history of cirrhosis due to hepatitis C as well as breast cancer left breast biopsies were positive for invasive ductal carcinoma. Patient was diagnosed in July 2016 Patient continues to report having severe pain to the oral cavity making it difficult to or to swallow. Objective - Vital Signs Vital signs: Vital Signs Temp 98.6 F 09/22/16 07:00 Pulse 97 09/22/16 07:00 Resp 16 09/22/16 07:00 BP 118/56 09/22/16 07:00 Pulse Ox 98 09/22/16 07:00 Intake & Output 09/21/16 09/22/16 09/22/16 18:59 06:59 18:59 Intake Total 50 720 Output Total 250 1200 Balance -200 -480 Intake: Intake, IV Titration 550 Amount Sodium Chloride 0.9% 1, 300 000 ml @ 150 mls/hr IV . Q6H40M [facility] Rx#:[id number] Vancomycin 1,500 mg In 250 Sodium Chloride 0.9% 250 ml @ 125 mls/hr IVPB Q8H [facility] Rx#:[id number] Oral 50 170 Output: Urine 250 1200 Other: # Voids 1 1 - Exam Physical exam 51-year-old female sitting up in bed pleasant oriented 3 continues to report having a difficult time swallowing taking any oral intake due to painful mouth I Lungs no shortness of breath essentially clear no cough heart S1-S2 audible and regular no reports of chest pain Abdomen soft nontender no reports of nausea no stool no difficulty in urinating Extremities no edema noted - Labs CBC & Chem 7: 09/22/16 05:00 09/22/16 05:00 Labs: Abnormal Lab Results - Last 24 Hours (Table) 09/21/16 09/22/16 09/22/16 Range/Units 08:11 05:00 05:00 WBC 0.5 L* (3.8-10.6) k/uL RBC 2.28 L (3.80-5.40) m/uL Hgb 7.3 L (11.4-16.0) gm/dL Hct 20.8 L (34.0-46.0) % RDW 16.1 H (11.5-15.5) % Plt Count 13 L* D 6 L* D (150-450) k/uL Potassium 3.2 L (3.5-5.1) mmol/L Chloride 111 H (98-107) mmol/L Creatinine 0.41 L (0.52-1.04) mg/dL Calcium 7.9 L (8.4-10.2) mg/dL Total Bilirubin 3.1 H (0.2-1.3) mg/dL AST 13 L (14-36) U/L Total Protein 5.0 L (6.3-8.2) g/dL Albumin 2.1 L (3.5-5.0) g/dL Microbiology - Last 24 Hours (Table) 09/19/16 13:50 Blood Culture - Preliminary Blood No Growth after 48 hours Assessment and Plan Plan: Impression Present on admission febrile neutropenia with extensive severe mucositis History of hepatitis C New diagnosis July 2016 left breast cancer biopsy positive for invasive ductal carcinoma started on neoadjuvant chemotherapy Pancytopenia due to antineoplastic chemotherapy Status: Acute Electrolyte abnormality hypokalemia Mild protein calorie malnutrition suspect due to poor caloric intake Active current every day smoker Plan Dietitian nutritional support see patient provide nutritional supplements as indicated benefit from protein shakes Continue medications by hematology oncology Pain control Potassium to be replaced DVT and GI prophylaxis Oral care as ordered alba solution Smoking cessation information to be provided patient's been advised to stop smoking cigarettes The above dictated assessment and findings were discussed with dr Jimenes/P aurora covering for Dr. Estrada. Impression and the plan of care have been dictated as directed. Nanci Canas nurse practitioner acting as a scribe for Nydia simon covering for Dr. Estrada[].
[2016-09-22] MEDS: POTASSIUM CHLORIDE ER 20 MEQ TAB.ER PO SCH ×2 (09:17→16:49)
--- NOTE | 2016-09-22 12:40 | P.PN ---
Progress Note - Text 51-year-old female who has significant debility due to comorbidities states that her bathroom is on the upstairs and she is not able to ambulate upstairs due to increased fatigue is needing a bedside commode to use while the patient lives on the main floor to be set up before patient's discharged
--- NOTE | 2016-09-22 17:44 | P.PN ---
Subjective Principal diagnosis: febrile neutropenia Pt seen today in follow up, she continues to have very sore mouth, difficulty eating, sore throat, denies nausea or vomiting, cough, wheezing, hemoptysis, mild abd bloating, no diarrhea, hematochezia, melena, hematuria, she continues to feel weak. Objective - Vital Signs Vital signs: Vital Signs Temp 98.6 F 09/22/16 07:00 Pulse 97 09/22/16 07:00 Resp 16 09/22/16 07:00 BP 118/56 09/22/16 07:00 Pulse Ox 98 09/22/16 07:00 Intake & Output 09/21/16 09/22/16 09/22/16 18:59 06:59 18:59 Intake Total 50 720 Output Total 250 1200 Balance -200 -480 Intake: Intake, IV Titration 550 Amount Sodium Chloride 0.9% 1, 300 000 ml @ 150 mls/hr IV . Q6H40M [facility] Rx#:[id number] Vancomycin 1,500 mg In 250 Sodium Chloride 0.9% 250 ml @ 125 mls/hr IVPB Q8H [facility] Rx#:[id number] Oral 50 170 Output: Urine 250 1200 Other: # Voids 1 1 - Constitutional General appearance: Present: cooperative, no acute distress - EENT Eyes: Present: anicteric sclerae ENT: Present: pharyngeal erythema - Respiratory Respiratory: bilateral: CTA - Cardiovascular Heart sounds: normal: S1, S2 - Peripheral edema leg Peripheral Edema: bilateral: None - Gastrointestinal General gastrointestinal: Present: normal bowel sounds, soft. Absent: absent bowel sounds, decreased bowel sounds, distended, hepatomegaly, hyperactive bowel sounds, organomegaly, rigid, scaphoid, splenomegaly, tenderness, umbilical hernia, ventral hernia - Integumentary Integumentary: Present: pale - Neurologic Neurologic: Present: CNII-XII intact - Musculoskeletal Musculoskeletal: Present: strength equal bilaterally - Psychiatric Psychiatric: Present: A&O x's 3, appropriate affect, intact judgment & insight - Labs CBC & Chem 7: 09/22/16 05:00 09/22/16 05:00 Labs: Abnormal Lab Results - Last 24 Hours (Table) 09/22/16 09/22/16 Range/Units 05:00 05:00 WBC 0.5 L* (3.8-10.6) k/uL RBC 2.28 L (3.80-5.40) m/uL Hgb 7.3 L (11.4-16.0) gm/dL Hct 20.8 L (34.0-46.0) % RDW 16.1 H (11.5-15.5) % Plt Count 6 L* D (150-450) k/uL Potassium 3.2 L (3.5-5.1) mmol/L Chloride 111 H (98-107) mmol/L Creatinine 0.41 L (0.52-1.04) mg/dL Calcium 7.9 L (8.4-10.2) mg/dL Total Bilirubin 3.1 H (0.2-1.3) mg/dL AST 13 L (14-36) U/L Total Protein 5.0 L (6.3-8.2) g/dL Albumin 2.1 L (3.5-5.0) g/dL Microbiology - Last 24 Hours (Table) 09/19/16 13:50 Blood Culture - Preliminary Blood No Growth after 48 hours Assessment and Plan (1) Mucositis (ulcerative) due to antineoplastic therapy Narrative/Plan: Diet altered for tolerance, supportive meds ordered. As pt WBC recovers her mucus membranes should recover as well. Status: Acute (2) Breast cancer Narrative/Plan: Pt treatment dosing will need to be adjusted for next cycle due to poor tolerance, Dr. Puente did discuss with pt and she did verbalize understanding Status: Acute (3) Febrile neutropenia Narrative/Plan: Pancultures negative, no fevers in last 24 hours, WBC showed slight increase today, pt received neulasta 09/13 so in AM GCSf can be added, will review counts prior to initiating therapy. Status: Acute (4) Neutropenic sepsis Status: Acute (5) Pancytopenia due to antineoplastic chemotherapy Narrative/Plan: GCSF will be added as appropriate, platelets ordered for today, no PRBCs, CBC daily. Status: Acute
[2016-09-22] MEDS: MICAFUNGIN 100 MG in SODIUM CHLORIDE 0.9% 100 ML IVPB SCH (17:54)
[2016-09-23] MEDS: CEFEPIME 2 GM in SODIUM CHLORIDE 0.9% 50 ML IVPB SCH ×3 (00:22→17:29)
[2016-09-23] MEDS: MAG HYDROX/AL HYDROX/SIMETH 30 ML, diphenhydrAMINE ELIXIR 75 MG, LIDOCAINE VISCOUS 30 ML PO PRN ×6 (00:25→07:57)
[2016-09-23] MEDS: MAG HYDROX/AL HYDROX/SIMETH 30 ML, diphenhydrAMINE ELIXIR 75 MG, LIDOCAINE VISCOUS 30 ML PO SCH ×12 (01:46→22:15)
[2016-09-23] MEDS: MORPHINE SULFATE 4 MG/ML SYRINGE IVP PRN ×6 (01:57→22:16)
[2016-09-23] MEDS: SODIUM CHLORIDE 0.9% 1,000 ML IV SCH ×4 (02:00→17:25)
[2016-09-23] MEDS ORDERED: VANCOMYCIN TROUGH DUE 1 EACH MISC MISCELLANE ONE (03:00)
[2016-09-23] MEDS: VANCOMYCIN 1,500 MG in SODIUM CHLORIDE 0.9% 250 ML IVPB SCH ×3 (03:47→23:05)
[2016-09-23 04:06] LABS: Anisocytosis Slight; CH 32.2; CHCM 34.9; HDW 3.51; MCH 31.6 pg (25.0-35.0); MCHC 34.1 g/dL (31.0-37.0); MCV 92.7 fL (80.0-100.0); Mean Platelet Volume 9.8; Poikilocytosis Slight; RBC 1.83 m/uL (3.80-5.40); RDW 16.3 % (11.5-15.5)
[2016-09-23 04:49] LABS: WBC 0.7 k/uL (3.8-10.6)
[2016-09-23 04:51] LABS: HCT 16.9 % (34.0-46.0)
[2016-09-23 04:52] LABS: HGB 5.8 gm/dL (11.4-16.0)
[2016-09-23 05:19] LABS: ALT 27 U/L (9-52); AST 14 U/L (14-36); Alkaline Phosphatase 37 U/L (38-126); Anion Gap 7 mmol/L; Blood Urea Nitrogen 11 mg/dL (7-17); Calcium 7.7 mg/dL (8.4-10.2); Carbon Dioxide 23 mmol/L (22-30); Chloride 111 mmol/L (98-107); Glucose 90 mg/dL (74-99); Non-African American GFR(MDRD) >60 (>60 ml/min/1.73 sqM); Sodium 141 mmol/L (137-145); Total Bilirubin 1.7 mg/dL (0.2-1.3); Total Protein 4.3 g/dL (6.3-8.2)
[2016-09-23 05:26] LABS: Potassium 2.8 mmol/L (3.5-5.1)
[2016-09-23] MEDS ORDERED: Potassium Replacement Protocol 1 EACH MISC MISCELLANE PRN (06:26)
[2016-09-23] MEDS ORDERED: POTASSIUM CHLORIDE 20 MEQ in WATER FOR INJECTION 1 100ML.BAG IVPB ONE (06:26)
[2016-09-23] MEDS: NICOTINE 14MG/24HR PATCH TRANSDERM SCH (07:56)
[2016-09-23] MEDS: SUCRALFATE 1 GM TAB PO SCH ×3 (07:57→17:27)
[2016-09-23] MEDS ORDERED: MAGNESIUM HYDROXIDE 2,400 MG/10 ML CUP PO PRN (09:09)
--- NOTE | 2016-09-23 09:16 | P.PN ---
Subjective Principal diagnosis: febrile neutropenia Pt seen in follow up, she continues to have sore mouth but she states the oral meds meds help and she can tolerate the full liquid diet, no cough, mild abd distension, she has not had a BM since admit, she is ambulating independently Objective - Vital Signs Vital signs: Vital Signs Temp 98 F 09/23/16 07:00 Pulse 90 09/23/16 07:00 Resp 18 09/23/16 07:00 BP 124/60 09/23/16 07:00 Pulse Ox 90 L 09/23/16 07:00 Intake & Output 09/22/16 09/23/16 09/23/16 18:59 06:59 18:59 Intake Total 120 2040 Balance 120 2040 Weight 86.183 kg Intake: Intake, IV Titration 300 Amount Cefepime 2 gm In Sodium 50 Chloride 0.9% 50 ml @ 100 mls/hr IVPB Q8HR [facility] Rx# :[id number] Vancomycin 1,500 mg In 250 Sodium Chloride 0.9% 250 ml @ 125 mls/hr IVPB Q8H [facility] Rx#:[id number] Oral 120 1540 Blood Product 200 Platelet Pheresis Acda2 200 Unit [id number] Other: # Voids 400 2 - Constitutional General appearance: Present: average body habitus, cooperative, no acute distress - EENT Eyes: Present: anicteric sclerae, normal appearance ENT: Present: pharyngeal erythema - Respiratory Respiratory: bilateral: CTA - Cardiovascular Heart sounds: normal: S1, S2 - Peripheral edema leg Peripheral Edema: bilateral: None - Gastrointestinal General gastrointestinal: Present: normal bowel sounds, soft - Neurologic Neurologic: Present: CNII-XII intact - Musculoskeletal Musculoskeletal: Present: strength equal bilaterally - Psychiatric Psychiatric: Present: A&O x's 3, appropriate affect, intact judgment & insight - Labs CBC & Chem 7: 09/23/16 03:55 09/23/16 03:55 Labs: Abnormal Lab Results - Last 24 Hours (Table) 09/23/16 09/23/16 Range/Units 03:55 03:55 WBC 0.7 L* (3.8-10.6) k/uL RBC 1.83 L (3.80-5.40) m/uL Hgb 5.8 L* D (11.4-16.0) gm/dL Hct 16.9 L* (34.0-46.0) % RDW 16.3 H (11.5-15.5) % Plt Count 12 L* D (150-450) k/uL Potassium 2.8 L* (3.5-5.1) mmol/L Chloride 111 H (98-107) mmol/L Creatinine 0.40 L (0.52-1.04) mg/dL Calcium 7.7 L (8.4-10.2) mg/dL Total Bilirubin 1.7 H (0.2-1.3) mg/dL Alkaline Phosphatase 37 L (38-126) U/L Total Protein 4.3 L (6.3-8.2) g/dL Albumin 1.9 L (3.5-5.0) g/dL Microbiology - Last 24 Hours (Table) 09/19/16 13:50 Blood Culture - Preliminary Blood No Growth after 72 hours Assessment and Plan (1) Mucositis (ulcerative) due to antineoplastic therapy Narrative/Plan: Cont current diet and supportive meds, condition will improve as pt WBC improves. Status: Acute (2) Breast cancer Narrative/Plan: Pt will be followed up in the office for evaluation and discussion regarding modification of treatment to prevent future complications from treatment. Status: Acute (3) Febrile neutropenia Narrative/Plan: Cont abx, pancultures remain negative, GCSF prescribed, labs daily Status: Acute (4) Neutropenic sepsis Status: Acute (5) Pancytopenia due to antineoplastic chemotherapy Narrative/Plan: PRBCs already ordered for today, no platelets today, cont GCSF, CBC daily. Status: Acute
--- NOTE | 2016-09-23 10:22 | P.PN ---
Subjective 51-year-old female being seen and examined. Patient states she continues to have a difficult time swallowing due to the soreness in her mouth. She states that the medication has relieved some of the discomfort in the mouth and can now tolerate a full liquid diet. There is no cough. Patient is voicing concern when she goes home she has a two-story house difficult for her to go upstairs she plans on staying on the main floor Objective - Vital Signs Vital signs: Vital Signs Temp 98 F 09/23/16 07:00 Pulse 90 09/23/16 07:00 Resp 18 09/23/16 07:00 BP 124/60 09/23/16 07:00 Pulse Ox 90 L 09/23/16 07:00 Intake & Output 09/22/16 09/23/16 09/23/16 18:59 06:59 18:59 Intake Total 120 2040 Balance 120 2040 Weight 86.183 kg Intake: Intake, IV Titration 300 Amount Cefepime 2 gm In Sodium 50 Chloride 0.9% 50 ml @ 100 mls/hr IVPB Q8HR [facility] Rx# :[id number] Vancomycin 1,500 mg In 250 Sodium Chloride 0.9% 250 ml @ 125 mls/hr IVPB Q8H [facility] Rx#:[id number] Oral 120 1540 Blood Product 200 Platelet Pheresis Acda2 200 Unit [id number] Other: # Voids 400 2 - Exam Physical exam 51-year-old female sitting up in bed pleasant oriented 3 reports a soreness in her mouth some relief from the oral medication Lungs no shortness of breath essentially clear no cough heart S1-S2 audible and regular no reports of chest pain Abdomen soft nontender no reports of nausea no stool no difficulty in urinating Extremities no edema noted - Labs CBC & Chem 7: 09/23/16 03:55 09/23/16 03:55 Labs: Abnormal Lab Results - Last 24 Hours (Table) 09/23/16 09/23/16 09/23/16 Range/Units 03:55 03:55 07:25 WBC 0.7 L* (3.8-10.6) k/uL RBC 1.83 L (3.80-5.40) m/uL Hgb 5.8 L* D (11.4-16.0) gm/dL Hct 16.9 L* (34.0-46.0) % RDW 16.3 H (11.5-15.5) % Plt Count 12 L* D (150-450) k/uL Potassium 2.8 L* (3.5-5.1) mmol/L Chloride 111 H (98-107) mmol/L Creatinine 0.40 L (0.52-1.04) mg/dL Calcium 7.7 L (8.4-10.2) mg/dL Total Bilirubin 1.7 H (0.2-1.3) mg/dL Alkaline Phosphatase 37 L (38-126) U/L Total Protein 4.3 L (6.3-8.2) g/dL Albumin 1.9 L (3.5-5.0) g/dL Crossmatch See Detail Microbiology - Last 24 Hours (Table) 09/19/16 13:50 Blood Culture - Preliminary Blood No Growth after 72 hours Assessment and Plan Plan: Impression Present on admission sepsis febrile neutropenia suspect due to extensive severe mucositis History of hepatitis C New diagnosis July 2016 left breast cancer biopsy positive for invasive ductal carcinoma started on neoadjuvant chemotherapy Pancytopenia due to antineoplastic chemotherapy Status: Acute Electrolyte abnormality hypokalemia Mild protein calorie malnutrition suspect due to poor caloric intake Active current every day smoker Chronic debility suspect due to chronic illness Acute anemia hemoglobin down to 5.9 to receive 1 unit of packed red blood cells on September 23 Plan Dietitian nutritional support see patient provide nutritional supplements as indicated benefit from protein shakes Continue medications by hematology oncology Pain control Potassium to be replaced DVT and GI prophylaxis Oral care as ordered alba solution Smoking cessation information to be provided patient's been advised to stop smoking cigarettes Patient would benefit from a bedside commode when discharged due to having a difficult time going up stairs plans on staying on the main level Continue recommendations by oncology service Continue current antibiotics as ordered Patient is to receive packed red blood cells today no platelets continue with the CBC The above dictated assessment and findings were discussed with Dr. Estrada. Impression and the plan of care have been dictated as directed. Nanci Canas nurse practitioner acting as a scribe for Dr. Estrada[].
[2016-09-23] MEDS ORDERED: DOCUSATE 100 MG CAP PO SCH (10:30)
[2016-09-23] MEDS: FILGRASTIM-SNDZ 480 MCG/0.8 ML SYRINGE SQ SCH (11:35)
[2016-09-23] MEDS: DOCUSATE 100 MG CAP PO SCH ×2 (11:35→22:13)
[2016-09-23] MEDS: POLYETHYLENE GLYCOL 3350 17 GM POWD.PACK PO SCH (11:35)
[2016-09-23] MEDS: MICAFUNGIN 100 MG in SODIUM CHLORIDE 0.9% 100 ML IVPB SCH (18:21)
[2016-09-23] MEDS: ONDANSETRON 4 MG/2 ML VIAL IVP PRN (20:17)
--- NOTE | 2016-09-23 22:28 | P.PN ---
Subjective Principal diagnosis: Fever and neutropenia Pleasant 51-year-old female who appears to be much older than her stated age presents to Hospital feeling very poorly. She was having some shortness of breath with cough. Significant and severe pain to oral cavity with increasing inability to chew and eat and swallow. It was starting difficulties to even swallow her own saliva. She was coughing consistently but it was not a bloody material. Because she felt so poorly she presented to the emergency center and admitted with evidence of fever and neutropenia. The patient has the history of known hepatitis C which apparently has been treated in the past the effectiveness is not known at this time. Patient however developed in July of this year breast carcinoma. Biopsy showed evidence of invasive ductal carcinoma which was triple negative. She with neoadjuvant chemotherapy with Adriamycin. She is now status post her second cycle is developed significant pancytopenia, and fever. She can see was admitted and infectious diseases consultation is been requested. The patient is quite miserable. She is not able to even effectively use the numbing oral medication because of how she is feeling at this time. She is in significant misery. She was having some relative hypotension due to her pain medications which has worsened her current pain. Oral cavity is feeling better today. She's been able to cleanse it with the soft green sponges. This is a major improvement from the other day. Able to tolerate some of the cool solution. Denies further fevers or chills. Objective - Vital Signs Vital signs: Vital Signs Temp 98.8 F 09/23/16 20:46 Pulse 92 09/23/16 20:46 Resp 20 09/23/16 20:46 BP 115/78 09/23/16 20:46 Pulse Ox 100 09/23/16 20:46 Intake & Output 09/23/16 09/23/16 09/24/16 06:59 18:59 06:59 Intake Total 2040 430 220 Output Total 400 Balance 2040 30 220 Weight 86.183 kg Intake: Intake, IV Titration 300 Amount Cefepime 2 gm In Sodium 50 Chloride 0.9% 50 ml @ 100 mls/hr IVPB Q8HR [facility] Rx# :[id number] Vancomycin 1,500 mg In 250 Sodium Chloride 0.9% 250 ml @ 125 mls/hr IVPB Q8H [facility] Rx#:[id number] Oral 1540 120 220 Blood Product 200 310 0 Platelet Pheresis Acda2 200 Unit [id number] As-1 Unit 0 [id number] As-3 Unit 310 [id number] Output: Urine 400 Other: # Voids 2 1 - Exam 51-year-old female who appears much older than her stated age. She is quite miserable. HEENT: Anicteric conjunctiva are pale. Nasal mucosa without bleeding or lesions. Oral mucosa shows evidence of the mucositis which is improving. The thrush is improved. The thick crusty material has now all been removed oral cavity is improved. Neck: The neck is supple without significant lymphadenopathy or thyromegaly. Lungs: Good bilateral air entry without significant crackles scattered wheezes are noted though.. There is no significant bronchial sounds. There is no egophony or dullness. Heart: Regular rate and rhythm with an audible S1-S2, no S3 no S4. There is no significant murmur click or rub, PMI was nondisplaced. Abdomen: Positive bowel sounds soft and nontender without palpable masses or organomegaly. There was no guarding or rebound. Extremities: The upper extremities have excellent pulses they are symmetric, no significant petechiae or telangiectasia. No splinter hemorrhages were noted. The lower extremities are free from significant edema. The peripheral pulses were 2+ and symmetric. Neuro: Awake alert oriented to person place and time. There are no acute new gross focal sensory motor deficits. . - Labs CBC & Chem 7: 09/23/16 03:55 09/23/16 03:55 Labs: Abnormal Lab Results - Last 24 Hours (Table) 09/23/16 09/23/16 09/23/16 Range/Units 03:55 03:55 07:25 WBC 0.7 L* (3.8-10.6) k/uL RBC 1.83 L (3.80-5.40) m/uL Hgb 5.8 L* D (11.4-16.0) gm/dL Hct 16.9 L* (34.0-46.0) % RDW 16.3 H (11.5-15.5) % Plt Count 12 L* D (150-450) k/uL Potassium 2.8 L* (3.5-5.1) mmol/L Chloride 111 H (98-107) mmol/L Creatinine 0.40 L (0.52-1.04) mg/dL Calcium 7.7 L (8.4-10.2) mg/dL Total Bilirubin 1.7 H (0.2-1.3) mg/dL Alkaline Phosphatase 37 L (38-126) U/L Total Protein 4.3 L (6.3-8.2) g/dL Albumin 1.9 L (3.5-5.0) g/dL Crossmatch See Detail Microbiology - Last 24 Hours (Table) 09/19/16 13:50 Blood Culture - Preliminary Blood No Growth after 96 hours Laboratory Results WBC 0.7 k/uL (3.8-10.6) L* 09/23/16 03:55 RBC 1.83 m/uL (3.80-5.40) L 09/23/16 03:55 Hgb 5.8 gm/dL (11.4-16.0) L* D 09/23/16 03:55 Hct 16.9 % (34.0-46.0) L* 09/23/16 03:55 MCV 92.7 fL (80.0-100.0) 09/23/16 03:55 MCH 31.6 pg (25.0-35.0) 09/23/16 03:55 MCHC 34.1 g/dL (31.0-37.0) 09/23/16 03:55 RDW 16.3 % (11.5-15.5) H 09/23/16 03:55 Plt Count 12 k/uL (150-450) L* D 09/23/16 03:55 Differential Comment 09/19/16 13:50 Manual Slide Review Performed 09/19/16 13:50 Poikilocytosis Slight 09/23/16 03:55 Anisocytosis Slight 09/23/16 03:55 Macrocytosis Slight 09/20/16 12:34 Sodium 141 mmol/L (137-145) 09/23/16 03:55 Potassium 2.8 mmol/L (3.5-5.1) L* 09/23/16 03:55 Chloride 111 mmol/L (98-107) H 09/23/16 03:55 Carbon Dioxide 23 mmol/L (22-30) 09/23/16 03:55 Anion Gap 7 mmol/L 09/23/16 03:55 BUN 11 mg/dL (7-17) 09/23/16 03:55 Creatinine 0.40 mg/dL (0.52-1.04) L 09/23/16 03:55 Est GFR (MDRD) Af Amer >60 (>60 ml/min/1.73 sqM) 09/23/16 03:55 Est GFR (MDRD) Non-Af >60 (>60 ml/min/1.73 sqM) 09/23/16 03:55 Glucose 90 mg/dL (74-99) 09/23/16 03:55 Plasma Lactic Acid [place] 1.8 mmol/L (0.7-2.0) 09/19/16 22:39 Calcium 7.7 mg/dL (8.4-10.2) L 09/23/16 03:55 Phosphorus 2.4 mg/dL (2.5-4.5) L 09/19/16 13:50 Magnesium 1.8 mg/dL (1.6-2.3) 09/19/16 13:50 Total Bilirubin 1.7 mg/dL (0.2-1.3) H 09/23/16 03:55 AST 14 U/L (14-36) 09/23/16 03:55 ALT 27 U/L (9-52) 09/23/16 03:55 Alkaline Phosphatase 37 U/L (38-126) L 09/23/16 03:55 Total Creatine Kinase <20 U/L (30-135) L 09/19/16 13:50 CK-MB (CK-2) <0.2 ng/mL (0.0-2.4) 09/19/16 13:50 CK-MB (CK-2) Rel Index 09/19/16 13:50 Total Protein 4.3 g/dL (6.3-8.2) L 09/23/16 03:55 Albumin 1.9 g/dL (3.5-5.0) L 09/23/16 03:55 Urine Color Dark Brown 09/19/16 13:20 Urine Appearance Cloudy (Clear) H 09/19/16 13:20 Urine pH 5.5 (5.0-8.0) 09/19/16 13:20 Ur Specific [place] 1.029 (1.001-1.035) 09/19/16 13:20 Urine Protein 1+ (Negative) H 09/19/16 13:20 Urine Glucose (UA) Trace (Negative) H 09/19/16 13:20 Urine Ketones Trace (Negative) H 09/19/16 13:20 Urine Blood Trace (Negative) H 09/19/16 13:20 Urine Nitrite Negative (Negative) 09/19/16 13:20 Urine Bilirubin 1+ (Negative) H 09/19/16 13:20 Urine Urobilinogen >12.0 mg/dL (<2.0) 09/19/16 13:20 Ur Leukocyte Esterase Negative (Negative) 09/19/16 13:20 Urine RBC 1 /hpf (0-5) 09/19/16 13:20 Urine WBC 6 /hpf (0-5) H 09/19/16 13:20 Ur Squamous Epith Cells 12 /hpf (0-4) H 09/19/16 13:20 Urine Mucus Many /hpf (None) H 09/19/16 13:20 Vancomycin Trough 14.4 ug/mL 09/23/16 03:55 Blood Type O Positive 09/23/16 07:25 Blood Type Recheck No 09/23/16 07:25 Antibody Screen NEGATIVE 09/23/16 07:25 Crossmatch See Detail 09/23/16 07:25 Transfuse Platelets 09/22/2016 09/22/16 08:43 Spec Expiration Date 09/26/2016 - 0253 09/23/16 07:25 Microbiology 09/19/16 13:50 Blood Blood Culture - Preliminary No Growth after 96 hours 09/19/16 13:20 Urine,Voided Urine Culture - Final Assessment and Plan (1) Breast cancer Status: Acute (2) Febrile neutropenia Narrative/Plan: 51-year-old woman with an extensive past medical history includes hepatitis C and more recently breast carcinoma. She's undergone 2 cycles of chemotherapy and presents with evidence of fever and pancytopenia. She has significant high- grade fever and extensive mucositis. Antibiotic therapy will become anxious and from Zosyn to cefepime to improve the toxicity to the bone marrow. Vancomycin is appropriate this point in time with a very extensive nature of the mucositis. Especially while cultures are pending. Antifungal therapy is added with micafungin given the extensive mucositis. Parameters for pain medication have been added so that if her blood pressure is adequate she can have the dose it's more effective in controlling her pain. Receiving transfusions as needed. Await recovery of her bone marrow oncology has written for growth factors. However if underlying infection can be improved this may not be needed. Suggesting that she can swish and spit the oral cool solution. She does not need to swallow it. Initially improved with and have that option. Nutrition is going to be a significant difficulty until her white count recovers and her mucositis improves. Status: Acute (3) Pancytopenia due to antineoplastic chemotherapy Status: Acute
[2016-09-24] MEDS: CEFEPIME 2 GM in SODIUM CHLORIDE 0.9% 50 ML IVPB SCH ×3 (01:21→15:59)
[2016-09-24] MEDS: SODIUM CHLORIDE 0.9% 1,000 ML IV SCH ×4 (03:12→19:29)
[2016-09-24] MEDS: MORPHINE SULFATE 4 MG/ML SYRINGE IVP PRN ×4 (04:25→19:29)
[2016-09-24] MEDS: VANCOMYCIN 1,500 MG in SODIUM CHLORIDE 0.9% 250 ML IVPB SCH ×4 (04:27→22:48)
[2016-09-24 06:12] LABS: CH 32.1; CHCM 36.2; HDW 3.64; Hyperchromasia Slight; MCH 31.4 pg (25.0-35.0); MCHC 35.2 g/dL (31.0-37.0); MCV 89.2 fL (80.0-100.0); Mean Platelet Volume 11.2; Poikilocytosis Slight; RBC 2.58 m/uL (3.80-5.40); RDW 15.8 % (11.5-15.5); WBC 2.8 k/uL (3.8-10.6)
[2016-09-24 06:23] LABS: HGB 8.1 gm/dL (11.4-16.0)
[2016-09-24 06:37] LABS: ALT 22 U/L (9-52); AST 15 U/L (14-36); Alkaline Phosphatase 45 U/L (38-126); Anion Gap 7 mmol/L; Blood Urea Nitrogen 9 mg/dL (7-17); Calcium 7.7 mg/dL (8.4-10.2); Carbon Dioxide 25 mmol/L (22-30); Chloride 110 mmol/L (98-107); Glucose 87 mg/dL (74-99); Non-African American GFR(MDRD) >60 (>60 ml/min/1.73 sqM); Sodium 142 mmol/L (137-145); Total Bilirubin 2.3 mg/dL (0.2-1.3); Total Protein 4.6 g/dL (6.3-8.2)
[2016-09-24] MEDS ORDERED: POTASSIUM CHLORIDE 20 MEQ in WATER FOR INJECTION 1 100ML.BAG IVPB ONE ×2 (08:30→17:00)
[2016-09-24] MEDS: POLYETHYLENE GLYCOL 3350 17 GM POWD.PACK PO SCH (08:57)
[2016-09-24] MEDS: MAG HYDROX/AL HYDROX/SIMETH 30 ML, diphenhydrAMINE ELIXIR 75 MG, LIDOCAINE VISCOUS 30 ML PO SCH ×9 (08:57→23:09)
[2016-09-24] MEDS: NICOTINE 14MG/24HR PATCH TRANSDERM SCH (08:58)
[2016-09-24] MEDS: SUCRALFATE 1 GM TAB PO SCH ×3 (08:58→16:53)
[2016-09-24] MEDS: DOCUSATE 100 MG CAP PO SCH ×2 (08:58→22:54)
[2016-09-24] MEDS: FILGRASTIM-SNDZ 480 MCG/0.8 ML SYRINGE SQ SCH (09:38)
--- NOTE | 2016-09-24 15:53 | PN ---
DATE OF SERVICE: 09/23/2016 CHIEF COMPLAINT: Pancytopenia secondary to chemotherapy for carcinoma of the breast. HISTORY OF PRESENT ILLNESS: This lady is doing fairly well. She has had no fever, chills, cough, urinary complaints, abdominal pain, etc. PHYSICAL EXAMINATION: She remains pale, but her chest is clear. Cardiac exam is normal. The abdomen is soft and non-tender. IMPRESSION: Pancytopenia secondary to chemotherapy for carcinoma of the breast. PLAN: Continue to follow with Hematology/Oncology.
--- NOTE | 2016-09-24 15:53 | HP ---
DATE OF SERVICE: This lady was admitted to the hospital with fatigue and shortness of breath and was found to have profound pancytopenia related to her chemotherapy. I was out of town and she was seen by my designate. She was admitted for profound pancytopenia and a platelet count below 10,000. She had no active bleeding. She was to be seen and followed by Hematology/Oncology. She is being treated for carcinoma of the breast.
[2016-09-24] MEDS: ONDANSETRON 4 MG/2 ML VIAL IVP PRN ×2 (15:58→22:28)
[2016-09-24] MEDS: MICAFUNGIN 100 MG in SODIUM CHLORIDE 0.9% 100 ML IVPB SCH (16:52)
--- NOTE | 2016-09-24 17:04 | PN ---
CHIEF COMPLAINT: Pancytopenia. HISTORY OF PRESENT ILLNESS: This lady is doing a little bit better and feeling better. White count is starting to come up, but her platelets are still quite low. PHYSICAL EXAMINATION: She remains slightly pale. CHEST: Clear. CARDIAC: Normal. ABDOMEN: Soft, nontender. IMPRESSION: 1. Pancytopenia, iatrogenic. 2. Carcinoma of the breast. PLAN: Continue to follow with Hematology and Oncology. She will probably be able to go home tomorrow. She will receive more platelets today.
--- NOTE | 2016-09-24 20:23 | P.PN ---
Subjective Principal diagnosis: Fever and neutropenia Pleasant 51-year-old female who appears to be much older than her stated age presents to Hospital feeling very poorly. She was having some shortness of breath with cough. Significant and severe pain to oral cavity with increasing inability to chew and eat and swallow. It was starting difficulties to even swallow her own saliva. She was coughing consistently but it was not a bloody material. Because she felt so poorly she presented to the emergency center and admitted with evidence of fever and neutropenia. The patient has the history of known hepatitis C which apparently has been treated in the past the effectiveness is not known at this time. Patient however developed in July of this year breast carcinoma. Biopsy showed evidence of invasive ductal carcinoma which was triple negative. She with neoadjuvant chemotherapy with Adriamycin. She is now status post her second cycle is developed significant pancytopenia, and fever. She can see was admitted and infectious diseases consultation is been requested. The patient is quite miserable. She is not able to even effectively use the numbing oral medication because of how she is feeling at this time. She is in significant misery. She was having some relative hypotension due to her pain medications which has worsened her current pain. Oral cavity is feeling better today. She's been able to cleanse it with the soft green sponges. This is a major improvement from the other day. Able to tolerate some of the cool solution. Denies further fevers or chills. Has been able to eat today. Has had intermittent nausea. Overall feeling better. Objective - Vital Signs Vital signs: Vital Signs Temp 97.6 F 09/24/16 15:00 Pulse 60 09/24/16 15:00 Resp 20 09/24/16 15:00 BP 131/59 09/24/16 15:00 Pulse Ox 94 L 09/24/16 15:00 Intake & Output 09/24/16 09/24/16 09/25/16 06:59 18:59 06:59 Intake Total 2255 299 Balance 2255 299 Intake: IV 1725 Cefepime 2 gm In Sodium 50 Chloride 0.9% 50 ml @ 100 mls/hr IVPB Q8HR [facility] Rx# :[id number] Sodium Chloride 0.9% 1, 1425 000 ml @ 150 mls/hr IV . Q6H40M [facility] Rx#:[id number] Vancomycin 1,500 mg In 250 Sodium Chloride 0.9% 250 ml @ 125 mls/hr IVPB Q8H [facility] Rx#:[id number] Oral 220 Blood Product 310 299 Platelet Pheresis Acda1 299 Unit [id number] Rc As-1 Unit 310 [id number] Other: Voiding Method Toilet Toilet # Voids 2 - Exam 51-year-old female who appears much older than her stated age. She is quite miserable. HEENT: Anicteric conjunctiva are pale. Nasal mucosa without bleeding or lesions. Oral mucosa shows evidence of the mucositis which is improving. The thrush is improved. The thick crusty material has now all been removed oral cavity is improved. Neck: The neck is supple without significant lymphadenopathy or thyromegaly. Lungs: Good bilateral air entry without significant crackles scattered wheezes are noted though.. There is no significant bronchial sounds. There is no egophony or dullness. Heart: Regular rate and rhythm with an audible S1-S2, no S3 no S4. There is no significant murmur click or rub, PMI was nondisplaced. Abdomen: Positive bowel sounds soft and nontender without palpable masses or organomegaly. There was no guarding or rebound. Extremities: The upper extremities have excellent pulses they are symmetric, no significant petechiae or telangiectasia. No splinter hemorrhages were noted. The lower extremities are free from significant edema. The peripheral pulses were 2+ and symmetric. Neuro: Awake alert oriented to person place and time. There are no acute new gross focal sensory motor deficits. . - Labs CBC & Chem 7: 09/24/16 06:05 09/24/16 15:01 Labs: Abnormal Lab Results - Last 24 Hours (Table) 09/23/16 09/24/16 09/24/16 Range/Units 07:25 06:05 06:05 WBC 2.8 L (3.8-10.6) k/uL RBC 2.58 L (3.80-5.40) m/uL Hgb 8.1 L D (11.4-16.0) gm/dL Hct 23.0 L (34.0-46.0) % RDW 15.8 H (11.5-15.5) % Plt Count 10 L* (150-450) k/uL Potassium 3.0 L* (3.5-5.1) mmol/L Chloride 110 H (98-107) mmol/L Creatinine 0.46 L (0.52-1.04) mg/dL Calcium 7.7 L (8.4-10.2) mg/dL Total Bilirubin 2.3 H (0.2-1.3) mg/dL Total Protein 4.6 L (6.3-8.2) g/dL Albumin 2.0 L (3.5-5.0) g/dL Crossmatch See Detail 09/24/16 Range/Units 15:01 WBC (3.8-10.6) k/uL RBC (3.80-5.40) m/uL Hgb (11.4-16.0) gm/dL Hct (34.0-46.0) % RDW (11.5-15.5) % Plt Count (150-450) k/uL Potassium 3.0 L* (3.5-5.1) mmol/L Chloride (98-107) mmol/L Creatinine (0.52-1.04) mg/dL Calcium (8.4-10.2) mg/dL Total Bilirubin (0.2-1.3) mg/dL Total Protein (6.3-8.2) g/dL Albumin (3.5-5.0) g/dL Crossmatch Microbiology - Last 24 Hours (Table) 09/19/16 13:50 Blood Culture - Preliminary Blood No Growth after 120 hours Laboratory Results WBC 2.8 k/uL (3.8-10.6) L 09/24/16 06:05 RBC 2.58 m/uL (3.80-5.40) L 09/24/16 06:05 Hgb 8.1 gm/dL (11.4-16.0) L D 09/24/16 06:05 Hct 23.0 % (34.0-46.0) L 09/24/16 06:05 MCV 89.2 fL (80.0-100.0) 09/24/16 06:05 MCH 31.4 pg (25.0-35.0) 09/24/16 06:05 MCHC 35.2 g/dL (31.0-37.0) 09/24/16 06:05 RDW 15.8 % (11.5-15.5) H 09/24/16 06:05 Plt Count 10 k/uL (150-450) L* 09/24/16 06:05 Differential Comment 09/19/16 13:50 Manual Slide Review Performed 09/19/16 13:50 Hyperchromasia Slight 09/24/16 06:05 Poikilocytosis Slight 09/24/16 06:05 Anisocytosis Slight 09/23/16 03:55 Macrocytosis Slight 09/20/16 12:34 Sodium 142 mmol/L (137-145) 09/24/16 06:05 Potassium 3.0 mmol/L (3.5-5.1) L* 09/24/16 15:01 Chloride 110 mmol/L (98-107) H 09/24/16 06:05 Carbon Dioxide 25 mmol/L (22-30) 09/24/16 06:05 Anion Gap 7 mmol/L 09/24/16 06:05 BUN 9 mg/dL (7-17) 09/24/16 06:05 Creatinine 0.46 mg/dL (0.52-1.04) L 09/24/16 06:05 Est GFR (MDRD) Af Amer >60 (>60 ml/min/1.73 sqM) 09/24/16 06:05 Est GFR (MDRD) Non-Af >60 (>60 ml/min/1.73 sqM) 09/24/16 06:05 Glucose 87 mg/dL (74-99) 09/24/16 06:05 Plasma Lactic Acid Darrius 1.8 mmol/L (0.7-2.0) 09/19/16 22:39 Calcium 7.7 mg/dL (8.4-10.2) L 09/24/16 06:05 Phosphorus 2.4 mg/dL (2.5-4.5) L 09/19/16 13:50 Magnesium 1.8 mg/dL (1.6-2.3) 09/19/16 13:50 Total Bilirubin 2.3 mg/dL (0.2-1.3) H 09/24/16 06:05 AST 15 U/L (14-36) 09/24/16 06:05 ALT 22 U/L (9-52) 09/24/16 06:05 Alkaline Phosphatase 45 U/L (38-126) 09/24/16 06:05 Total Creatine Kinase <20 U/L (30-135) L 09/19/16 13:50 CK-MB (CK-2) <0.2 ng/mL (0.0-2.4) 09/19/16 13:50 CK-MB (CK-2) Rel Index 09/19/16 13:50 Total Protein 4.6 g/dL (6.3-8.2) L 09/24/16 06:05 Albumin 2.0 g/dL (3.5-5.0) L 09/24/16 06:05 Urine Color Dark Brown 09/19/16 13:20 Urine Appearance Cloudy (Clear) H 09/19/16 13:20 Urine pH 5.5 (5.0-8.0) 09/19/16 13:20 Ur Specific [place] 1.029 (1.001-1.035) 09/19/16 13:20 Urine Protein 1+ (Negative) H 09/19/16 13:20 Urine Glucose (UA) Trace (Negative) H 09/19/16 13:20 Urine Ketones Trace (Negative) H 09/19/16 13:20 Urine Blood Trace (Negative) H 09/19/16 13:20 Urine Nitrite Negative (Negative) 09/19/16 13:20 Urine Bilirubin 1+ (Negative) H 09/19/16 13:20 Urine Urobilinogen >12.0 mg/dL (<2.0) 09/19/16 13:20 Ur Leukocyte Esterase Negative (Negative) 09/19/16 13:20 Urine RBC 1 /hpf (0-5) 09/19/16 13:20 Urine WBC 6 /hpf (0-5) H 09/19/16 13:20 Ur Squamous Epith Cells 12 /hpf (0-4) H 09/19/16 13:20 Urine Mucus Many /hpf (None) H 09/19/16 13:20 Vancomycin Trough 14.4 ug/mL 09/23/16 03:55 Blood Type O Positive 09/23/16 07:25 Blood Type Recheck No 09/23/16 07:25 Antibody Screen NEGATIVE 09/23/16 07:25 Crossmatch See Detail 09/23/16 07:25 Transfuse Platelets 09/24/2016 09/24/16 08:00 Spec Expiration Date 09/26/2016 3289 09/23/16 07:25 Microbiology 09/19/16 13:50 Blood Blood Culture - Preliminary No Growth after 120 hours 09/19/16 13:20 Urine,Voided Urine Culture - Final Assessment and Plan (1) Breast cancer Status: Acute (2) Febrile neutropenia Narrative/Plan: 51-year-old woman with an extensive past medical history includes hepatitis C and more recently breast carcinoma. She's undergone 2 cycles of chemotherapy and presents with evidence of fever and pancytopenia. She has significant high- grade fever and extensive mucositis. Antibiotic therapy will become anxious and from Zosyn to cefepime to improve the toxicity to the bone marrow. Vancomycin is appropriate this point in time with a very extensive nature of the mucositis. Especially while cultures are pending. Antifungal therapy is added with micafungin given the extensive mucositis. Parameters for pain medication have been added so that if her blood pressure is adequate she can have the dose it's more effective in controlling her pain. Receiving transfusions as needed. Oncology has started growth factors, and the white blood cell count is now 2.8. Hopefully as the white cell increases her mucositis will markedly improve However if underlying infection can be improved this may not be needed. Suggesting that she can swish and spit the oral cool solution. She does not need to swallow it. Initially improved with and have that option. Nutrition is improving on her mouth feels better. Cultures negative so far will monitor antibiotics and antifungal over the next several days as her white blood cell count recovers. Status: Acute (3) Pancytopenia due to antineoplastic chemotherapy Status: Acute
[2016-09-24 22:03] VITALS: RESP 16
[2016-09-24] MEDS ORDERED: PROCHLORPERAZINE 10 MG TAB PO PRN (22:37)
[2016-09-25] MEDS: MORPHINE SULFATE 4 MG/ML SYRINGE IVP PRN ×5 (00:03→16:31)
[2016-09-25] MEDS ORDERED: POTASSIUM CHLORIDE 20 MEQ in WATER FOR INJECTION 1 100ML.BAG IVPB ONE ×2 (00:07→06:02)
[2016-09-25] MEDS ORDERED: Potassium Replacement Protocol 1 EACH MISC MISCELLANE PRN ×2 (00:07→06:02)
[2016-09-25] MEDS: CEFEPIME 2 GM in SODIUM CHLORIDE 0.9% 50 ML IVPB SCH ×2 (00:35→08:21)
--- NOTE | 2016-09-25 01:46 | P.PN ---
Subjective Pt feels slightly stronger today. Swallowing is somewhat easier. She still has angular mucositis. No f/c/n/v/ Objective - Vital Signs Vital signs: Vital Signs Temp 98.3 F 09/24/16 22:02 Pulse 94 09/24/16 22:02 Resp 16 09/24/16 22:02 BP 108/54 09/24/16 22:02 Pulse Ox 96 09/24/16 22:02 Intake & Output 09/24/16 09/24/16 09/25/16 06:59 18:59 06:59 Intake Total 2255 299 Balance 2255 299 Intake: IV 1725 Cefepime 2 gm In Sodium 50 Chloride 0.9% 50 ml @ 100 mls/hr IVPB Q8HR [facility] Rx# :[id number] Sodium Chloride 0.9% 1, 1425 000 ml @ 150 mls/hr IV . Q6H40M [facility] Rx#:[id number] Vancomycin 1,500 mg In 250 Sodium Chloride 0.9% 250 ml @ 125 mls/hr IVPB Q8H [facility] Rx#:[id number] Oral 220 Blood Product 310 299 Platelet Pheresis Acda1 299 Unit [id number] Rc As-1 Unit 310 [id number] Other: Voiding Method Toilet Toilet # Voids 2 1 - Constitutional General appearance: Present: no acute distress - EENT Eyes: Present: PERRLA ENT: Present: other (Mucositis improved. Residual at angles ) - Neck Neck: Present: normal ROM - Respiratory Respiratory: bilateral: CTA - Cardiovascular Rhythm: regular Heart sounds: normal: S1, S2 - Gastrointestinal General gastrointestinal: Present: normal bowel sounds, soft - Neurologic Neurologic: Present: CNII-XII intact - Musculoskeletal Musculoskeletal: Present: generalized weakness, strength equal bilaterally - Psychiatric Psychiatric: Present: A&O x's 3 - Labs CBC & Chem 7: 09/24/16 06:05 09/24/16 23:00 Labs: Abnormal Lab Results - Last 24 Hours (Table) 09/24/16 09/24/16 09/24/16 Range/Units 06:05 06:05 15:01 WBC 2.8 L (3.8-10.6) k/uL RBC 2.58 L (3.80-5.40) m/uL Hgb 8.1 L D (11.4-16.0) gm/dL Hct 23.0 L (34.0-46.0) % RDW 15.8 H (11.5-15.5) % Plt Count 10 L* (150-450) k/uL Potassium 3.0 L* 3.0 L* (3.5-5.1) mmol/L Chloride 110 H (98-107) mmol/L Creatinine 0.46 L (0.52-1.04) mg/dL Calcium 7.7 L (8.4-10.2) mg/dL Total Bilirubin 2.3 H (0.2-1.3) mg/dL Total Protein 4.6 L (6.3-8.2) g/dL Albumin 2.0 L (3.5-5.0) g/dL 09/24/16 Range/Units 23:00 WBC (3.8-10.6) k/uL RBC (3.80-5.40) m/uL Hgb (11.4-16.0) gm/dL Hct (34.0-46.0) % RDW (11.5-15.5) % Plt Count (150-450) k/uL Potassium 3.1 L (3.5-5.1) mmol/L Chloride (98-107) mmol/L Creatinine (0.52-1.04) mg/dL Calcium (8.4-10.2) mg/dL Total Bilirubin (0.2-1.3) mg/dL Total Protein (6.3-8.2) g/dL Albumin (3.5-5.0) g/dL Microbiology - Last 24 Hours (Table) 09/19/16 13:50 Blood Culture - Preliminary Blood No Growth after 120 hours Assessment and Plan (1) Neutropenic sepsis Narrative/Plan: Hemodynamics remain stable. Fever has not recurred. WBC is starting to recover and is > 2 today. Continue antibiotics per ID. Continue filgrastim. Cultures have remained negative Status: Acute (2) Pancytopenia due to antineoplastic chemotherapy Narrative/Plan: WBC is showing recovery as noted. Continue Filgrastim. Hgb is acceptable at 8.1, 1 U of plt will be ordered for her count of 10K Status: Acute (3) Breast cancer Narrative/Plan: Left breast examined in the presence of female MA. The mass has diminished considerably. Continue chemo post discharge, with dose reduction Status: Acute Plan: Case was d/w the admitting service. Assuming continued count recovery, she can likely be discharged tomorrow on PO antibiotics
[2016-09-25] MEDS: SODIUM CHLORIDE 0.9% 1,000 ML IV SCH (02:27)
[2016-09-25 04:25] LABS: Anisocytosis Slight; CH 31.9; HCT 24.6 % (34.0-46.0); HDW 3.55; HGB 8.4 gm/dL (11.4-16.0); Immature Gran Flag Slight; MCH 31.4 pg (25.0-35.0); MCHC 34.1 g/dL (31.0-37.0); MCV 92.1 fL (80.0-100.0); Mean Platelet Volume 9.6; Poikilocytosis Slight; RBC 2.67 m/uL (3.80-5.40); RDW 16.2 % (11.5-15.5)
[2016-09-25] MEDS: VANCOMYCIN 1,500 MG in SODIUM CHLORIDE 0.9% 250 ML IVPB SCH (04:42)
[2016-09-25 05:38] LABS: Anion Gap 8 mmol/L; Blood Urea Nitrogen 8 mg/dL (7-17); Calcium 7.8 mg/dL (8.4-10.2); Carbon Dioxide 26 mmol/L (22-30); Chloride 107 mmol/L (98-107); Glucose 113 mg/dL (74-99); Non-African American GFR(MDRD) >60 (>60 ml/min/1.73 sqM); Potassium 3.1 mmol/L (3.5-5.1); Sodium 141 mmol/L (137-145)
[2016-09-25 06:24] LABS: Add Differential Manual Differential
[2016-09-25 06:30] LABS: Manual Review Performed; Nucleated Red Blood Cells 1 /100 WBC (0-0); Total Cells Counted 200
[2016-09-25 08:20] VITALS: BP 114/66; PULSE 83; TEMP 97
[2016-09-25] MEDS: DOCUSATE 100 MG CAP PO SCH (08:24)
[2016-09-25] MEDS: POLYETHYLENE GLYCOL 3350 17 GM POWD.PACK PO SCH (08:24)
[2016-09-25] MEDS: SUCRALFATE 1 GM TAB PO SCH ×2 (08:24→13:20)
[2016-09-25] MEDS: NICOTINE 14MG/24HR PATCH TRANSDERM SCH ×2 (08:25→08:39)
[2016-09-25] MEDS ORDERED: PANTOPRAZOLE 40 MG TABLET PO SCH (09:00)
[2016-09-25] MEDS: MAG HYDROX/AL HYDROX/SIMETH 30 ML, diphenhydrAMINE ELIXIR 75 MG, LIDOCAINE VISCOUS 30 ML PO SCH ×6 (10:22→17:21)
[2016-09-25] MEDS: FILGRASTIM-SNDZ 480 MCG/0.8 ML SYRINGE SQ SCH (10:22)
--- NOTE | 2016-09-25 11:07 | P.DS ---
Providers Date of admission: 09/19/16 14:57 Expected date of discharge: 09/25/16 Attending physician: Mark Estrada Consults: 09/19/16 14:57 Consult Physician Routine Consulting Provider: Hernesto Puente Consult Reason/Comments: knowny Do you want consulting provider notified?: Yes 09/19/16 15:01 Consult Physician Routine Consulting Provider: Raúl Burgos Consult Reason/Comments: fever Do you want consulting provider notified?: Yes Primary care physician: Mark Estrada Hospital Course: Pleasant 51-year-old female who looks much over than stated age presented to the hospital on the day of admission to report having a difficult time swallowing and eating due to increased severe intolerable pain to the oral cavity. Patient stated it seemed to get difficulty even swallow her own saliva. Patient states she is coughing constantly no blood noted. Patient stated that she did not feel well presented to the emergency room with the above -mentioned symptoms. Patient is showing evidence of fever and neutropenia. Patients being treated for a new diagnosis of July 2016 left breast cancer. The biopsies did show evidence of invasive ductal carcinoma. Patient started chemotherapy neoadjuvant chemotherapy with Adriamycin. She is now status post her second cycle is developed significant pancytopenia, and fever. Patient was admitted to the services of the attending. Within oncology and infectious disease consultation requested. Patient was started on IV hydration blood and urine cultures were negative . Patient was being treated for a very extensive mucositis. hemoglobin was down did receive 1 unit of packed red blood cells.for a hemoglobin 5.9 Patient was started on swish and spit with oral solution of alba solution oncology did start the patient on growth factors the white count noted to improved at the time of discharge the white count was 4 with a noted improvement in patient's clinical status patient was able to take in oral intake with less pain in her mouth. Subsequent the patient was discharged home Impression discharge diagnosis Present on admission sepsis febrile neutropenia suspect due to extensive painful severe mucositis History of hepatitis C New diagnosis July 2016 left breast cancer biopsy positive for invasive ductal carcinoma started on neoadjuvant chemotherapy Pancytopenia due to antineoplastic chemotherapy Electrolyte abnormality hypokalemia Mild protein calorie malnutrition suspect due to poor caloric intake Active current every day smoker Chronic debility suspect due to chronic illness Acute anemia suspect due to antineoplastic chemotherapy no evidence of occult blood loss hemoglobin down to 5.9 to receive 1 unit of packed red blood cells on September 23 The above dictated assessment and findings were discussed with Dr. Estrada. Impression and the plan of care have been dictated as directed. Nanci Canas nurse practitioner acting as a scribe for Dr. Estrada[]. Patient Condition at Discharge: Poor Plan - Discharge Summary New Discharge Prescriptions: New Levofloxacin [Levaquin] 500 mg PO DAILY #7 tab Sucralfate [Carafate] 1 gm PO ACHS #120 tab Docusate [Colace] 100 mg PO BID cap Lidocaine Viscous [Xylocaine Viscous 2%] 30 ml PO TID PRN bottle PRN Reason: pain Lidocaine Viscous [Xylocaine Viscous 2%] 30 ml PO TID bottle Magnesium Hydroxide [Milk of Magnesia Concentrate] 2,400 mg PO ONCE PRN dose PRN Reason: Constipation Nicotine 14Mg/24Hr Patch [Habitrol] 1 patch TRANSDERM DAILY patch Sucralfate [Carafate] 1 gm PO AC-TID tab Continue Prochlorperazine [Compazine] 10 mg PO Q6H PRN PRN Reason: Nausea Hydrocodone/Acetaminophen [Garrett 5-325] 0.5 tab PO Q8H PRN PRN Reason: Pain Omeprazole 20 mg PO BID Dexamethasone 8 mg PO DIRECTED Discharge Medication List Hydrocodone/Acetaminophen [Garrett 5-325] 0.5 tab PO Q8H PRN 08/26/16 [History] Prochlorperazine [Compazine] 10 mg PO Q6H PRN 08/26/16 [History] Dexamethasone 8 mg PO DIRECTED 09/19/16 [History] Omeprazole 20 mg PO BID 09/19/16 [History] Docusate [Colace] 100 mg PO BID cap 09/25/16 [Rx] Levofloxacin [Levaquin] 500 mg PO DAILY #7 tab 09/25/16 [Rx] Lidocaine Viscous [Xylocaine Viscous 2%] 30 ml PO TID bottle 09/25/16 [Rx] Lidocaine Viscous [Xylocaine Viscous 2%] 30 ml PO TID PRN bottle 09/25/16 [Rx] Magnesium Hydroxide [Milk of Magnesia Concentrate] 2,400 mg PO ONCE PRN dose [Rx] Nicotine 14Mg/24Hr Patch [Habitrol] 1 patch TRANSDERM DAILY patch 09/25/16 [Rx] Sucralfate [Carafate] 1 gm PO AC-TID tab 09/25/16 [Rx] Sucralfate [Carafate] 1 gm PO ACHS #120 tab 09/25/16 [Rx] Follow up Appointment(s)/Referral(s): Hernesto Puente MD [STAFF PHYSICIAN] - 10/02/16 2:45 pm Mark Estrada MD [Primary Care Provider] - 1-2 days Activity/Diet/Wound Care/Special Instructions: script for commode sent to [facility] - i called dr Estrada's office and they are aware that the pt would like to start the process for a scooter when she follows up with him. Discharge Disposition: HOME SELF-CARE
[2016-09-25] MEDS: POTASSIUM CHLORIDE ER 20 MEQ TAB.ER PO SCH ×2 (11:43→17:12)
[2016-09-25] MEDS ORDERED: POTASSIUM CHLORIDE 10 MEQ, LIDOCAINE 2% INJ 10 MG in SODIUM CHLORIDE 0.9% 100 ML IVPB SCH (12:00)
[2016-09-25] MEDS: POTASSIUM CHLORIDE 10 MEQ, LIDOCAINE 2% INJ 10 MG in SODIUM CHLORIDE 0.9% 100 ML IVPB SCH ×2 (12:36→16:36)
--- NOTE | 2016-09-25 16:26 | P.PN ---
Subjective Principal diagnosis: febrile neutropenia Pt seen today in follow up. She continues to have odynophagia and indigestion, can tolerate liquids, very soft foods, no nausea or vomiting, SOB, wheezing, abd pain, she is taking stools softeners and had small BM, she is ambulatory. Objective - Vital Signs Vital signs: Vital Signs Temp 97 F L 09/25/16 07:00 Pulse 83 09/25/16 07:00 Resp 16 09/25/16 07:00 BP 114/66 09/25/16 07:00 Pulse Ox 96 09/25/16 07:00 Intake & Output 09/24/16 09/25/16 09/25/16 18:59 06:59 18:59 Intake Total 299 320 200 Balance 299 320 200 Weight 86.183 kg Intake: Oral 320 200 Blood Product 299 Platelet Pheresis Acda1 299 Unit [id number] Other: Voiding Method Toilet Toilet Toilet # Voids 2 3 2 - Constitutional General appearance: Present: average body habitus, cooperative, no acute distress - EENT ENT: Present: normal oropharynx - Respiratory Respiratory: bilateral: CTA - Cardiovascular Heart sounds: normal: S1, S2 - Peripheral edema leg Peripheral Edema: bilateral: None - Gastrointestinal General gastrointestinal: Present: normal bowel sounds, soft - Integumentary Integumentary: Present: normal turgor - Neurologic Neurologic: Present: CNII-XII intact - Musculoskeletal Musculoskeletal: Present: strength equal bilaterally - Psychiatric Psychiatric: Present: A&O x's 3, appropriate affect, intact judgment & insight - Labs CBC & Chem 7: 09/25/16 04:00 09/25/16 04:00 Labs: Abnormal Lab Results - Last 24 Hours (Table) 09/24/16 09/24/16 09/25/16 Range/Units 15:01 23:00 04:00 RBC 2.67 L (3.80-5.40) m/uL Hgb 8.4 L (11.4-16.0) gm/dL Hct 24.6 L (34.0-46.0) % RDW 16.2 H (11.5-15.5) % Plt Count 21 L* D (150-450) k/uL Lymphocytes # (Manual) 0.2 L (1.0-4.8) k/uL Nucleated RBCs 1 H (0-0) /100 WBC Potassium 3.0 L* 3.1 L (3.5-5.1) mmol/L Creatinine (0.52-1.04) mg/dL Glucose (74-99) mg/dL Calcium (8.4-10.2) mg/dL 09/25/16 Range/Units 04:00 RBC (3.80-5.40) m/uL Hgb (11.4-16.0) gm/dL Hct (34.0-46.0) % RDW (11.5-15.5) % Plt Count (150-450) k/uL Lymphocytes # (Manual) (1.0-4.8) k/uL Nucleated RBCs (0-0) /100 WBC Potassium 3.1 L (3.5-5.1) mmol/L Creatinine 0.47 L (0.52-1.04) mg/dL Glucose 113 H (74-99) mg/dL Calcium 7.8 L (8.4-10.2) mg/dL Microbiology - Last 24 Hours (Table) 09/19/16 13:50 Blood Culture - Final Blood No Growth after 144 hours Assessment and Plan (1) Mucositis (ulcerative) due to antineoplastic therapy Narrative/Plan: Continue current supportive meds. Now that WBC has recovered it would be anticipated that pt mouth and throat will recover quicker. Pt will continue on full liquids/soft diet as tolerated. Status: Acute (2) Breast cancer Narrative/Plan: Treatment on hold, pt will be seen by Dr. Puente next week and evaluated, treatment will be resumed as appropriate. Status: Acute (3) Febrile neutropenia Narrative/Plan: No fevers >24 hours, WBC recovered with ANC WNDL. Pt will be prescribed oral abx on discharge Status: Acute (4) Neutropenic sepsis Narrative/Plan: Cultures negative Status: Acute (5) Pancytopenia due to antineoplastic chemotherapy Narrative/Plan: WBC recovered, Hgb and plt stable. Status: Acute Plan: Case was discussed with attending. Pt needs a charley prescriptions for discharge but will have no money until after 10/06. Social Work contacted for indigent funds, Rx left on pt chart.
[2016-09-25] MEDS ORDERED: POTASSIUM CHLORIDE ORAL LIQUID 40 MEQ/30 ML CUP PO ONE (17:00)
[2016-09-25] MEDS: ONDANSETRON 4 MG/2 ML VIAL IVP PRN (18:19)
[2016-09-26] MEDS ORDERED: VANCOMYCIN TROUGH DUE 1 EACH MISC MISCELLANE ONE (03:00)
--- NOTE | 2016-09-26 15:56 | PN ---
DATE OF SERVICE: 09/25/2016 CHIEF COMPLAINT: Pancytopenia secondary to chemotherapy. HISTORY OF PRESENT ILLNESS: This lady is doing fairly well, but she is still having a lot of trouble with swallowing from her esophagitis. She is slated to go home today. We are trying to make arrangements for her to obtain all the medications that she will need when she goes home. PHYSICAL EXAM: Her chest is clear. Cardiac exam is normal. She is a little tender over the epigastrium. IMPRESSION: 1. Pancytopenia secondary to chemotherapy for carcinoma of the breast. 2. Esophagitis and stomatitis. PLAN: She will likely go home later today, and this will be arranged by the nurse practitioner.
== END 2016-09-25 20:00 | disposition home or self-care (01) | DRG 871 ==
LOC: EC 13:02 → 5ONC 14:57
PROVIDERS: ADMIT Family Medicine; ATTEND Family Medicine
PROC: 30243N1 Transfusion of Nonautologous Red Blood Cells into Central Vein, Percutaneous Approach (ICD-10-PCS; principal; 2016-09-20)
PROC: 30243R1 Transfusion of Nonautologous Platelets into Central Vein, Percutaneous Approach (ICD-10-PCS; 2016-09-21)
DX: A41.9 Sepsis, unspecified organism (principal); D61.810 Antineoplastic chemotherapy induced pancytopenia; E44.1 Mild protein-calorie malnutrition; B37.0 Candidal stomatitis; I95.9 Hypotension, unspecified; D70.3 Neutropenia due to infection; R13.10 Dysphagia, unspecified; K74.60 Unspecified cirrhosis of liver; C50.912 Malignant neoplasm of unspecified site of left female breast; B19.20 Unspecified viral hepatitis C without hepatic coma; E87.6 Hypokalemia; F17.200 Nicotine dependence, unspecified, uncomplicated; H91.92 Unspecified hearing loss, left ear; I10 Essential (primary) hypertension; K05.10 Chronic gingivitis, plaque induced; K12.31 Oral mucositis (ulcerative) due to antineoplastic therapy; K21.9 Gastro-esophageal reflux disease without esophagitis; N28.9 Disorder of kidney and ureter, unspecified; T45.1X5A Adverse effect of antineoplastic and immunosuppressive drugs, initial encounter; R19.00 Intra-abdominal and pelvic swelling, mass and lump, unspecified site; R05 Cough; Z68.28 Body mass index [BMI] 28.0-28.9, adult; Z79.899 Other long term (current) drug therapy; Z79.52 Long term (current) use of systemic steroids; Z80.1 Family history of malignant neoplasm of trachea, bronchus and lung; Z82.49 Family history of ischemic heart disease and other diseases of the circulatory system
CPT/HCPCS: 36415; 71020; 80048; 80053; 80202; 81001; 82550; 82553; 83605; 83735; 84100; 84132; 85025; 85027; 85049; 86850; 86900; 86901; 86920; 87040; 87086; 93005; 96365; 96366; 96375; 96376; 99285

== ENCOUNTER 2016-10-20 18:27 | Observation (INO) | payer MEDICARE, OTHER ==
[2016-10-20] MEDS ORDERED: ALBUTEROL NEBULIZED 2.5 MG/3 ML INHALATION STA (19:55)
[2016-10-20] MEDS ORDERED: IPRATROPIUM 0.5 MG/2.5 ML NEBU INHALATION STA (19:55)
[2016-10-20] MEDS ORDERED: methylPREDNISolone SOD SUCCI 125 MG/2 ML VIAL IV STA (19:55)
--- NOTE | 2016-10-20 20:17 | XR ---
EXAMINATION TYPE: XR chest 2V DATE OF EXAM: 10/20/2016 COMPARISON: 09/19/2016 HISTORY: Short of breath TECHNIQUE: Frontal and lateral views of the chest are obtained. FINDINGS: Heart and mediastinum are normal. Lungs are clear. There is no pleural effusion. There is right central venous catheter with tip in the superior vena cava. There is no pneumothorax. Bony thor ax is intact. IMPRESSION: No active cardiopulmonary disease. No change.
[2016-10-20 20:51] LABS: Anisocytosis Moderate; Aty Lym Flag Slight; CH 35.9; CHCM 33.5; HCT 29.6 % (34.0-46.0); HDW 3.72; HGB 10.2 gm/dL (11.4-16.0); INR 1.3 (<1.2); MCH 37.1 pg (25.0-35.0); MCHC 34.3 g/dL (31.0-37.0); MCV 108.3 fL (80.0-100.0); Macrocytosis Marked; Mean Platelet Volume 9.2; Poikilocytosis Slight; Prothrombin Time 13.2 sec (9.0-12.0); RBC 2.73 m/uL (3.80-5.40); WBC 2.1 k/uL (3.8-10.6); WBC (Perox) 2.11
[2016-10-20 21:08] LABS: ALT 32 U/L (9-52); AST 43 U/L (14-36); Alkaline Phosphatase 73 U/L (38-126); Anion Gap 5 mmol/L; Blood Urea Nitrogen 9 mg/dL (7-17); Carbon Dioxide 26 mmol/L (22-30); Chloride 105 mmol/L (98-107); Glucose 102 mg/dL (74-99); Non-African American GFR(MDRD) >60 (>60 ml/min/1.73 sqM); Potassium 3.2 mmol/L (3.5-5.1); Sodium 136 mmol/L (137-145); Total Bilirubin 2.7 mg/dL (0.2-1.3); Total Protein 5.6 g/dL (6.3-8.2)
[2016-10-20 21:19] LABS: Creatine Kinase MB 0.7 ng/mL (0.0-2.4)
[2016-10-20 21:20] LABS: Add Differential Manual Differential
[2016-10-20 21:22] LABS: VBG PH 7.42 (7.31-7.41)
[2016-10-20 21:24] LABS: Troponin I 0.064 ng/mL (0.000-0.034)
[2016-10-20 21:28] LABS: Manual Review Performed; Nucleated Red Blood Cells 0 /100 WBC (0-0); Polychromasia Present; Total Cells Counted 100; Toxic Granulation Present
[2016-10-20] MEDS ORDERED: POTASSIUM CHLORIDE ER 20 MEQ TAB.ER PO STA (21:46)
[2016-10-20] MEDS ORDERED: IPRATROPIUM-ALBUTEROL 3 ML NEB INHALATION PRN (21:54)
[2016-10-20] MEDS ORDERED: LORazepam 1 MG TAB PO STA (22:03)
[2016-10-20] MEDS ORDERED: ONDANSETRON 4 MG/2 ML VIAL IVP PRN (22:59)
[2016-10-20] MEDS ORDERED: NALOXONE 0.4 MG/ML 1 ML VIAL IV PRN (22:59)
--- NOTE | 2016-10-20 23:10 | ED ---
General Adult HPI - General Chief complaint: Recheck/Abnormal Lab/Rx Stated complaint: LEGS SWOLLEN, ABDOMINAL PAIN/DISTENTION, GAGGING Time Seen by Provider: 10/20/16 19:46 Source: patient, RN notes reviewed Mode of arrival: ambulatory Limitations: no limitations - History of Present Illness Initial comments: 51-year-old female with past medical history of liver cirrhosis, and breast cancer currently on treatment presents with bilateral lower extremity swelling which isn't present for proximal in the past month. She states the swelling has progressively worsened. This made its way to her abdomen and she complains of abdominal distention. She denies chest pain or shortness of breath. Denies nausea vomiting or diarrhea. States she's had a mild cough and complains of subjective fever and chills. - Related Data Home Medications Medication Instructions Recorded Confirmed Hydrocodone/Acetaminophen [[place] 1 tab PO Q4H PRN 08/26/16 10/20/16 5-325] Prochlorperazine [Compazine] 10 mg PO Q6H PRN 08/26/16 10/20/16 Previous Rx's Medication Instructions Recorded Sucralfate [Carafate] 1 gm PO ACHS #120 tab 09/25/16 Allergies Allergy/AdvReac Type Severity Reaction Status Date / Time No Known Allergies Allergy Verified 10/20/16 19:35 Review of Systems ROS Statement: Those systems with pertinent positive or pertinent negative responses have been documented in the HPI. ROS Other: All systems not noted in ROS Statement are negative. Past Medical History Past Medical History: Cancer, GERD/Reflux, GI Bleed, Hypertension, Liver Disease Additional Past Medical History / Comment(s): Hepatitis C, Vertigo;"benign abd mass", states has had esophageal banding, lt breast cancer had chemo last on 09-12, lt ear hearing loss History of Any Multi-Drug Resistant Organisms: None Reported Past Surgical History: Adenoidectomy, Tonsillectomy Additional Past Surgical History / Comment(s): E[facility], "esophageal banding" Past Anesthesia/Blood Transfusion Reactions: No Reported Reaction Additional Past Anesthesia/Blood Transfusion Reaction / Comment(s): blood transfusions- no reaction Past Psychological History: No Psychological Hx Reported Smoking Status: Current some day smoker - Past Family History Mother Family Medical History: Cancer Additional Family Medical History / Comment(s): of lung ca Father Family Medical History: Myocardial Infarction ([place]) Additional Family Medical History / Comment(s): from 2nd heart attack General Exam Limitations: no limitations General appearance: alert, in no apparent distress Head exam: Present: atraumatic, normocephalic Eye exam: Present: normal appearance, PERRL ENT exam: Present: normal exam, mucous membranes moist Neck exam: Present: normal inspection, full ROM Respiratory exam: Present: normal lung sounds bilaterally. Absent: rales Cardiovascular Exam: Present: regular rate, normal rhythm GI/Abdominal exam: Present: soft, distended. Absent: tenderness, guarding, rebound, rigid Extremities exam: Present: pedal edema (2+ bilateral lower extremity edema throughout) Neurological exam: Present: alert, oriented X3, CN II-XII intact. Absent: motor sensory deficit Psychiatric exam: Present: normal affect, normal mood Skin exam: Present: warm, dry Course Vital Signs 10/20/16 10/20/16 19:09 22:08 Temperature 98.3 F 98.0 F Pulse Rate 106 H 92 Respiratory 17 16 Rate Blood Pressure 132/69 139/73 O2 Sat by Pulse 99 Oximetry EKG Findings - EKG Comments: EKG Findings:: EKG shows normal sinus rhythm with a ventricular rate of 95, NH interval 116, castration 76, QTC is 459, there is no ST segment elevation or depression Medical Decision Making - Medical Decision Making 51-year-old female with history of liver cirrhosis and breast cancer presenting with bilateral lower extremity swelling. Patient did report a mild cough, denies chest pain or shortness of breath. Denies nausea vomiting or diarrhea. Patient is not currently on any diuretics. Laboratory studies reveal pancytopenia with a white blood cell count 0.1, anemia, and thrombocytopenia with a platelet count of 40. Patient's albumin is 2.5. Creatinine 0.5, troponin is mildly elevated at 0.062. Patient does not have renal disease and again denies chest pain or symptoms suggestive of cardiac disease. Laboratory studies from previous hospitalizations are reviewed, there was anemia thrombocytopenia and leukopenia from previous visits. There is no comparison of troponin levels. Patient will be placed in observation for serial cardiac enzymes. Aspirin is held at this time given her thrombocytopenia. Patient is given 20 mg of Lasix twice a day for generalized fluid retention. - Lab Data Result diagrams: 10/20/16 20:30 10/20/16 20:30 Lab Results 10/20/16 10/20/16 10/20/16 Range/Units 20:30 20:30 20:30 WBC 2.1 L (3.8-10.6) k/uL RBC 2.73 L (3.80-5.40) m/uL Hgb 10.2 L (11.4-16.0) gm/dL Hct 29.6 L (34.0-46.0) % MCV 108.3 H D (80.0-100.0) fL MCH 37.1 H (25.0-35.0) pg MCHC 34.3 (31.0-37.0) g/dL RDW 22.0 H (11.5-15.5) % Plt Count 40 L* D (150-450) k/uL Neutrophils % (Manual) 73.0 % Band Neutrophils % 2.0 % Lymphocytes % (Manual) 19.0 % Monocytes % (Manual) 2.0 % Eosinophils % (Manual) 4.0 % Neutrophils # (Manual) 1.6 (1.3-7.7) k/uL Lymphocytes # (Manual) 0.4 L (1.0-4.8) k/uL Monocytes # (Manual) 0.0 (0-1.0) k/uL Eosinophils # (Manual) 0.1 (0-0.7) k/uL Nucleated RBCs 0 (0-0) /100 WBC Manual Slide Review Performed Toxic Granulation Present Polychromasia Present Poikilocytosis Slight Poikilocytosis (manual Present Anisocytosis Moderate Macrocytosis Marked PT (9.0-12.0) sec INR (<1.2) APTT (22.0-30.0) sec VBG pH (7.31-7.41) VBG pCO2 (37-51) mmHg VBG HCO3 (24-28) mmol/L Sodium 136 L (137-145) mmol/L Potassium 3.2 L (3.5-5.1) mmol/L Chloride 105 (98-107) mmol/L Carbon Dioxide 26 (22-30) mmol/L Anion Gap 5 mmol/L BUN 9 (7-17) mg/dL Creatinine 0.50 L (0.52-1.04) mg/dL Est GFR (MDRD) Af Amer >60 (>60 ml/min/1.73 sqM) Est GFR (MDRD) Non-Af >60 (>60 ml/min/1.73 sqM) Glucose 102 H (74-99) mg/dL Calcium 8.0 L (8.4-10.2) mg/dL Total Bilirubin 2.7 H (0.2-1.3) mg/dL AST 43 H (14-36) U/L ALT 32 (9-52) U/L Alkaline Phosphatase 73 (38-126) U/L Total Creatine Kinase 76 (30-135) U/L CK-MB (CK-2) 0.7 (0.0-2.4) ng/mL CK-MB (CK-2) Rel Index 0.9 Troponin I 0.064 H* (0.000-0.034) ng/mL NT-Pro-B Natriuret Pep pg/mL Total Protein 5.6 L (6.3-8.2) g/dL Albumin 2.5 L (3.5-5.0) g/dL 10/20/16 10/20/16 10/20/16 Range/Units 20:30 20:30 21:13 WBC (3.8-10.6) k/uL RBC (3.80-5.40) m/uL Hgb (11.4-16.0) gm/dL Hct (34.0-46.0) % MCV (80.0-100.0) fL MCH (25.0-35.0) pg MCHC (31.0-37.0) g/dL RDW (11.5-15.5) % Plt Count (150-450) k/uL Neutrophils % (Manual) % Band Neutrophils % % Lymphocytes % (Manual) % Monocytes % (Manual) % Eosinophils % (Manual) % Neutrophils # (Manual) (1.3-7.7) k/uL Lymphocytes # (Manual) (1.0-4.8) k/uL Monocytes # (Manual) (0-1.0) k/uL Eosinophils # (Manual) (0-0.7) k/uL Nucleated RBCs (0-0) /100 WBC Manual Slide Review Toxic Granulation Polychromasia Poikilocytosis Poikilocytosis (manual Anisocytosis Macrocytosis PT 13.2 H (9.0-12.0) sec INR 1.3 H (<1.2) APTT 34.0 H (22.0-30.0) sec VBG pH 7.42 H (7.31-7.41) VBG pCO2 43 (37-51) mmHg VBG HCO3 27 (24-28) mmol/L Sodium (137-145) mmol/L Potassium (3.5-5.1) mmol/L Chloride (98-107) mmol/L Carbon Dioxide (22-30) mmol/L Anion Gap mmol/L BUN (7-17) mg/dL Creatinine (0.52-1.04) mg/dL Est GFR (MDRD) Af Amer (>60 ml/min/1.73 sqM) Est GFR (MDRD) Non-Af (>60 ml/min/1.73 sqM) Glucose (74-99) mg/dL Calcium (8.4-10.2) mg/dL Total Bilirubin (0.2-1.3) mg/dL AST (14-36) U/L ALT (9-52) U/L Alkaline Phosphatase (38-126) U/L Total Creatine Kinase (30-135) U/L CK-MB (CK-2) (0.0-2.4) ng/mL CK-MB (CK-2) Rel Index Troponin I (0.000-0.034) ng/mL NT-Pro-B Natriuret Pep 476 pg/mL Total Protein (6.3-8.2) g/dL Albumin (3.5-5.0) g/dL Disposition Clinical Impression: Hypokalemia, Cirrhosis of liver, Elevated troponin I level Disposition: ADMITTED IP TO THIS [facility] Condition: Stable Referrals: Mark Estrada MD [Primary Care Provider] - 1-2 days Decision to Admit Reason: Admit from EC Decision Date: 10/20/16 Decision Time: 22:00
[2016-10-20] MEDS: DEXTROSE 5%-0.45% NACL 1,000 ML IV SCH (23:33)
[2016-10-21 02:48] LABS: Creatine Kinase MB 0.5 ng/mL (0.0-2.4)
[2016-10-21 02:54] LABS: Troponin I 0.069 ng/mL (0.000-0.034)
[2016-10-21 03:07] LABS: Anion Gap 5 mmol/L; Blood Urea Nitrogen 8 mg/dL (7-17); Calcium 7.7 mg/dL (8.4-10.2); Carbon Dioxide 27 mmol/L (22-30); Chloride 105 mmol/L (98-107); Glucose 88 mg/dL (74-99); Non-African American GFR(MDRD) >60 (>60 ml/min/1.73 sqM); Potassium 3.4 mmol/L (3.5-5.1); Sodium 137 mmol/L (137-145)
[2016-10-21] MEDS: FUROSEMIDE 10 MG/ML 2 ML VIAL IV SCH ×2 (07:56→20:19)
[2016-10-21] MEDS: HYDROcodone/APAP 5-325MG 1 EACH TAB PO PRN ×4 (08:05→20:22)
[2016-10-21] MEDS ORDERED: predniSONE 20 MG TAB PO SCH (09:00)
[2016-10-21] MEDS ORDERED: AZITHROMYCIN 500 MG TAB PO SCH (09:00)
[2016-10-21 09:28] LABS: Anisocytosis Moderate; CH 35.8; CHCM 32.6; HCT 25.4 % (34.0-46.0); HDW 3.52; Hypochromasia Slight; Large Platelets Flag Slight; MCH 37.2 pg (25.0-35.0); MCHC 33.4 g/dL (31.0-37.0); MCV 111.1 fL (80.0-100.0); Macrocytosis Marked; Mean Platelet Volume 11.5; Poikilocytosis Slight; RBC 2.29 m/uL (3.80-5.40); RDW 21.8 % (11.5-15.5); WBC (Perox) 1.09
[2016-10-21 09:44] LABS: HGB 8.5 gm/dL (11.4-16.0)
[2016-10-21 09:45] LABS: WBC 1.1 k/uL (3.8-10.6)
[2016-10-21 09:59] LABS: Creatine Kinase MB 0.4 ng/mL (0.0-2.4)
[2016-10-21 10:14] LABS: Troponin I 0.063 ng/mL (0.000-0.034)
[2016-10-21] MEDS: POTASSIUM CHLORIDE ER 20 MEQ TAB.ER PO SCH ×2 (10:46→14:10)
[2016-10-21 11:20] LABS: Add Differential Manual Differential
--- NOTE | 2016-10-21 11:23 | HP ---
Lori Barakat is a 51-year-old female who presented to the ED at [facility] with increasing swelling of her lower extremities, some shortness of breath as well. No clear chest pain. She subsequently was seen in the ED. Her troponin was elevated and she was admitted for further evaluation. Past medical history is positive for liver cirrhosis, breast cancer, gastroesophageal reflux disease, GI bleed, hepatitis C, vertigo, esophageal banding, breast cancer on the left, last chemotherapy on 09/12/2016, adenoidectomy , tonsillectomy, right chest Mediport, EGD, esophagea banding. Family history is positive for lung cancer in her mother, myocardial infarction in her father who had his first heart attack at age 41. She has no known drug allergies. Medications prior to admission were: 1. Hydrocodone with acetaminophen. 2. Prochlorperazine. REVIEW OF SYSTEMS: Noncontributory. On physical examination, blood pressure is 113/56, respirations rate 16, pulse rate 85, temperature 98.2. O2 sat on room air is 98%. HEENT reveals pupils are equal. Chest is clear. Cardiovascular system reveals an S1 and S2. Abdomen is distended. There is 1+ to 2+ pedal edema. White count is 2.1, hemoglobin of 10.2, platelet count of 40,000. PT, INR of 1.3. Sodium 136, potassium 3.2, chloride 105, bicarb 26. BUN 9, creatinine 0.5. Calcium 8. Bilirubin 2.7. Troponin 0.064, repeat is 0.069. IMPRESSION AT THIS TIME: 1. Cirrhosis of the liver with ascites and edema secondary to liver disease, which is worsening. 2. Elevated troponin, which may be due to cardiac etiology versus nonspecific. 3. History of breast cancer, status post chemotherapy. 4. Pancytopenia with thrombocytopenia, which may be related to recent chemotherapy. At this point in time, would keep the patient on Lasix. Keep her in negative fluid balance. Keep off anticoagulants as the platelet count is already low and she has liver disease. Would have Cardiology further evaluate the patient. Depending on how she does, we shall make further changes to her care. MTDD
[2016-10-21 11:27] LABS: Manual Review Performed; Nucleated Red Blood Cells 0 /100 WBC (0-0); Total Cells Counted 100
[2016-10-21 11:28] LABS: Polychromasia Present
--- NOTE | 2016-10-21 14:55 | P.CRDCN ---
History of Present Illness Consult date: 10/21/16 Reason for Consult (text): elevated troponin Chief complaint: Edema History of present illness: This is a pleasant 51-year-old female patient who is seen Dr. Mcgee in the office. She has a known history of cirrhosis related to hepatitis C, GI bleed in the past, GERD, hypertension and breast CA for which she has recently underwent chemotherapy. In its emergency department with complaints of increasing lower extremity and abdominal edema. Cardiology was asked to see the patient in consult due to elevated troponin which came back at 0.064, 0.069 and 0.063. Patient's BNP was 476. EKG shows normal sinus rhythm without acute ST-T wave abnormalities. This x-ray showed no active cardiopulmonary disease and no change from previous. Office records reviewed patient underwent echocardiogram showed normal LV systolic function. On examination, patient is sitting up on the side of the bed. She denies complaints of chest discomfort, palpitations, dizziness or syncope. She continues to complain of abdominal distention and lower extremity edema. Past Medical History Past Medical History: Cancer, GERD/Reflux, GI Bleed, Hypertension, Liver Disease Additional Past Medical History / Comment(s): Hepatitis C, Vertigo; "benign abd mass", states has had esophageal banding, lt breast cancer had chemo last on 09-12, lt ear hearing loss. multiple GI bleeds History of Any Multi-Drug Resistant Organisms: None Reported Past Surgical History: Adenoidectomy, Tonsillectomy Additional Past Surgical History / Comment(s): EGD, rt chest mediport 08-06-16, "esophageal banding" Past Anesthesia/Blood Transfusion Reactions: No Reported Reaction Additional Past Anesthesia/Blood Transfusion Reaction / Comment(s): blood transfusions- no reaction Past Psychological History: No Psychological Hx Reported Additional Psychological History / Comment(s): Has a history of hepatitis C with esophageal variceal bleeds requiring banding several years ago. Continues to smoke. No current injection drug use. No experience. No international travel. No animal exposures. Lives with her family Smoking Status: Current every day smoker Additional Past Alcohol Use History / Comment(s): pt smokes a couple cigarettes a day - Past Family History Mother Family Medical History: Cancer Additional Family Medical History / Comment(s): of lung ca Father Family Medical History: Myocardial Infarction ([place]) Additional Family Medical History / Comment(s): from 2nd heart attack Medications and Allergies Home Medications Medication Instructions Recorded Confirmed Type RX: Hydrocodone/Acetaminophen 1 tab PO Q4H PRN 08/26/16 10/20/16 History [[place] 5-325] RX: Prochlorperazine [Compazine] 10 mg PO Q6H PRN 08/26/16 10/20/16 History Allergies Allergy/AdvReac Type Severity Reaction Status Date / Time No Known Allergies Allergy Verified 10/20/16 19:35 Physical Exam Vitals: Vital Signs Temp Pulse Pulse Resp BP BP Pulse Ox 10/21/16 12:00 98.8 F 74 18 126/80 95 10/21/16 09:13 98 10/21/16 08:00 98.2 F 80 18 116/78 97 10/21/16 07:58 85 18 10/21/16 03:56 98.2 F 85 16 113/56 98 10/21/16 00:18 98.5 F 88 18 126/60 98 10/21/16 00:00 18 10/20/16 23:41 98.6 F 90 14 117/66 98 10/20/16 22:08 98.0 F 92 16 139/73 10/20/16 19:09 98.3 F 106 H 17 132/69 99 Intake and Output 10/20/16 10/21/16 10/21/16 22:59 06:59 14:59 Intake Total 120 Output Total 200 Balance -80 Intake: IV 120 Dextrose 5%-0.45% NaCl 1, 120 000 ml @ 20 mls/hr IV . Q24H [facility] Rx#:[id number] Output: Urine 200 Other: Weight 104.326 kg 101.7 kg PHYSICAL EXAMINATION: HEENT: Head is atraumatic, normocephalic. Pupils equal, round. Neck is supple. There is no elevated jugular venous pressure. HEART EXAMINATION: Heart sounds regular, S1 and S2 normal. No murmur or gallop heard. CHEST EXAMINATION: Lungs are clear to auscultation and precussion. No chest wall tenderness is noted on palpation or with deep breathing. Right upper chest MediPort in place and accessed. ABDOMEN: Distended with edema noted. Bowel sounds are heard. No organomegaly noted. EXTREMITIES: Diminished peripheral pulses with evidence of 2-3+ peripheral edema and no calf tenderness noted. NEUROLOGIC patient is awake, alert and oriented x3. . Results 10/21/16 08:54 10/21/16 02:15 Cardiac Enzymes 10/20/16 10/20/16 10/21/16 Range/Units 20:30 20:30 01:57 AST 43 H (14-36) U/L CK-MB (CK-2) 0.7 0.5 (0.0-2.4) ng/mL Troponin I 0.064 H* 0.069 H* (0.000-0.034) ng/mL 10/21/16 Range/Units 08:54 AST (14-36) U/L CK-MB (CK-2) 0.4 (0.0-2.4) ng/mL Troponin I 0.063 H* (0.000-0.034) ng/mL Coagulation 10/20/16 Range/Units 20:30 PT 13.2 H (9.0-12.0) sec APTT 34.0 H (22.0-30.0) sec CBC 10/20/16 10/21/16 Range/Units 20:30 08:54 WBC 2.1 L 1.1 L* (3.8-10.6) k/uL RBC 2.73 L 2.29 L (3.80-5.40) m/uL Hgb 10.2 L 8.5 L D (11.4-16.0) gm/dL Hct 29.6 L 25.4 L (34.0-46.0) % Plt Count 40 L* D 30 L* (150-450) k/uL Comprehensive Metabolic Panel 10/20/16 10/21/16 Range/Units 20:30 02:15 Sodium 136 L 137 (137-145) mmol/L Potassium 3.2 L 3.4 L (3.5-5.1) mmol/L Chloride 105 105 (98-107) mmol/L Carbon Dioxide 26 27 (22-30) mmol/L BUN 9 8 (7-17) mg/dL Creatinine 0.50 L 0.50 L (0.52-1.04) mg/dL Glucose 102 H 88 (74-99) mg/dL Calcium 8.0 L 7.7 L (8.4-10.2) mg/dL AST 43 H (14-36) U/L ALT 32 (9-52) U/L Alkaline Phosphatase 73 (38-126) U/L Total Protein 5.6 L (6.3-8.2) g/dL Albumin 2.5 L (3.5-5.0) g/dL Current Medications Generic Name Dose Route Start Last Admin Trade Name Freq PRN Reason Stop Dose Admin Hydrocodone Bitart/Acetaminophen 1 each 10/20/16 23:03 10/21/16 12:01 [place] 5-325 PO 1 each Q4H PRN Administration Pain Furosemide 20 mg 10/21/16 09:00 10/21/16 07:56 Lasix IV 20 mg Q12HR [facility] Administration Dextrose/Sodium Chloride 1,000 mls @ 20 mls/hr 10/20/16 23:00 10/20/16 23:33 Dextrose 5%-1/2ns Iv Soln IV 20 mls/hr .Q24H [facility]FAEL Administration Naloxone HCl 0.2 mg 10/20/16 22:59 Narcan IV Q2M PRN Opioid Reversal Ondansetron HCl 4 mg 10/20/16 22:59 Zofran IVP Q8HR PRN Nausea And Vomiting Intake and Output 10/20/16 10/21/16 10/21/16 22:59 06:59 14:59 Intake Total 120 Output Total 200 Balance -80 Intake: IV 120 Dextrose 5%-0.45% NaCl 1, 120 000 ml @ 20 mls/hr IV . Q24H [facility] Rx#:[id number] Output: Urine 200 Other: Weight 104.326 kg 101.7 kg 10/21/16 08:54 10/21/16 02:15 EKG Interpretations (text) Sinus rhythm without acute ST-T wave abnormalities Assessment and Plan Plan: Assessment and plan #1 liver cirrhosis with ascites and edema secondary to hepatitis C #2 mild troponin leak, not consistent with acute myocardial injury #3 history of breast cancer, status post recent chemotherapy #4 pancytopenia with thrombocytopenia From cardiology perspective, troponin elevation is flat and not indicative of acute myocardial ischemia. We will follow the patient on an as-needed basis. Please do not hesitate to contact us with questions. CARAMEL MAKER note has been reviewed, I agree with a documented findings and plan of care. Patient was seen and examined.
[2016-10-21] MEDS: TEMAZEPAM 15 MG CAP PO PRN (23:55)
[2016-10-21] MEDS: DEXTROSE 5%-0.45% NACL 1,000 ML IV SCH (23:55)
[2016-10-22] MEDS: HYDROcodone/APAP 5-325MG 1 EACH TAB PO PRN ×3 (00:01→10:13)
[2016-10-22] MEDS: FUROSEMIDE 10 MG/ML 2 ML VIAL IV SCH (08:30)
[2016-10-22 08:52] LABS: Anion Gap 1 mmol/L; Blood Urea Nitrogen 9 mg/dL (7-17); Calcium 7.6 mg/dL (8.4-10.2); Carbon Dioxide 29 mmol/L (22-30); Chloride 106 mmol/L (98-107); Glucose 100 mg/dL (74-99); Non-African American GFR(MDRD) >60 (>60 ml/min/1.73 sqM); Potassium 3.6 mmol/L (3.5-5.1); Sodium 136 mmol/L (137-145)
[2016-10-22] MEDS: HYDROmorphone 1 MG/ML 1 ML SYRINGE IVP PRN ×2 (18:04→21:59)
--- NOTE | 2016-10-22 19:01 | P.CONS ---
History of Present Illness - Reason for Consult Consult date: 10/22/16 breast cancer Requesting physician: Colby Apple - Chief Complaint BLE and abd swelling - History of Present Illness Ms. Barakat is a pleasant female pt of Dr. Puente, who was initially seen for pancytopenia in 2016, felt to be related to liver disease as pt had history of untreated HepC. She was then seen on consult at [facility] on 07/08/16 when she was admitted with abdominal pain as she had run out of pain meds, incidentally she was found to have a left breast mass on exam. US on 07/08/16 revealed a 5.6 x 3.3 x 3.5 cm solid lesion at 9 o clock, core biopsy on 07/10/16, pathology positive for grade 3 invasive ductal carcinoma, triple negative hormonal status. Staging PET scan was negative for evidence of metastases, final stage IIB, T3N0M0, neoadjuvant chemotherapy-dose dense AC and taxol-was started on 08/15, she completed 3/4 cycles of AC, last treatment was 09/12. She has been contacted by the office several times with no return calls, all follow up appts missed. Pt states that over the last few weeks she has had progressive abd distension, early satiety, orthopnea, BLE swelling, abd distension and weakness. She has nausea but denied hematemesis, chronic cough, no hemoptysis or purulent sputum production, her abd is tight and uncomfortable, she states chronic diarrhea, denies hematochezia or melena, no hemorrhoids, she is having trouble getting into her house as she has >10 steps, she cannot lay flat. Review of Systems All systems: negative Constitutional: Reports as per HPI Past Medical History Past Medical History: Cancer, GERD/Reflux, GI Bleed, Hypertension, Liver Disease Additional Past Medical History / Comment(s): Hepatitis C, Vertigo; "benign abd mass", states has had esophageal banding, lt breast cancer had chemo last on 09-12, lt ear hearing loss. multiple GI bleeds History of Any Multi-Drug Resistant Organisms: None Reported Past Surgical History: Adenoidectomy, Tonsillectomy Additional Past Surgical History / Comment(s): EGD, rt chest mediport 08-06-16, "esophageal banding" Past Anesthesia/Blood Transfusion Reactions: No Reported Reaction Additional Past Anesthesia/Blood Transfusion Reaction / Comm: blood transfusions - no reaction Past Psychological History: No Psychological Hx Reported Additional Psychological History / Comment(s): Has a history of hepatitis C with esophageal variceal bleeds requiring banding several years ago. Continues to smoke. No current injection drug use. No experience. No international travel. No animal exposures. Lives with her family Smoking Status: Current every day smoker Additional Past Alcohol Use History / Comment(s): pt smokes a couple cigarettes a day - Past Family History Mother Family Medical History: Cancer Additional Family Medical History / Comment(s): of lung ca Father Family Medical History: Myocardial Infarction ([place]) Additional Family Medical History / Comment(s): from 2nd heart attack Medications and Allergies Home Medications Medication Instructions Recorded Confirmed Type Hydrocodone/Acetaminophen [[place] 1 tab PO Q4H PRN 08/26/16 10/20/16 History 5-325] Prochlorperazine [Compazine] 10 mg PO Q6H PRN 08/26/16 10/20/16 History Allergies Allergy/AdvReac Type Severity Reaction Status Date / Time No Known Allergies Allergy Verified 10/20/16 19:35 Physical Exam Vitals: Vital Signs Temp Pulse Resp BP Pulse Ox 10/22/16 12:00 97.9 F 78 18 122/56 94 L 10/22/16 08:00 98.0 F 81 18 108/49 96 10/22/16 04:00 98.4 F 81 18 100/53 95 10/22/16 00:00 98.0 F 93 17 117/68 96 10/21/16 20:00 98.4 F 84 18 111/77 95 Intake and Output 10/22/16 10/22/16 10/22/16 06:59 14:59 22:59 Intake Total 80 190 Output Total 1150 300 Balance -1070 -110 Intake: IV 80 40 Dextrose 5%-0.45% NaCl 1, 80 40 000 ml @ 20 mls/hr IV . Q24H [facility] Rx#:[id number] Oral 150 Output: Urine 1150 300 Other: Voiding Method Toilet Toilet Toilet # Voids 2 Weight 101.1 kg - Constitutional General appearance: cooperative, mild distress - EENT Eyes: anicteric sclerae, EOMI, PERRLA, poor dentition, normal appearance ENT: hearing grossly normal, normal oropharynx - Neck Neck: no lymphadenopathy - Respiratory Respiratory: bilateral: diminished - Cardiovascular Heart sounds: normal: S1, S2 leg Peripheral Edema: bilateral: 4+, Pitting - Gastrointestinal General gastrointestinal: distended, hepatomegaly, normal bowel sounds, soft Localized gastrointestinal: tender: RUQ - Integumentary Integumentary: pale - Neurologic Neurologic: CNII-XII intact - Musculoskeletal Musculoskeletal: generalized weakness - Psychiatric Psychiatric: A&O x's 3, appropriate affect, intact judgment & insight Results CBC & Chem 7: 10/21/16 08:54 10/22/16 08:30 Labs: Abnormal Lab Results - Last 24 Hours (Table) 10/22/16 Range/Units 08:30 Sodium 136 L (137-145) mmol/L Glucose 100 H (74-99) mg/dL Calcium 7.6 L (8.4-10.2) mg/dL Chest x-ray: report reviewed Assessment and Plan (1) Breast cancer Narrative/Plan: Pt has not completed treatment for her breast cancer, she is having financial troubles, transportation issues and has no phone. We will get pt an appt before she is discharged to try and get he back on sched. Unfortunately, at this time her blood counts are not adequate for her to have treatment, this is not due to chemo effect as pt has not had chemo for nearly 6-7 weeks. Her pancytopenia is more likely related to her liver disease so GI has been consulted to evaluate pt. Status: Chronic (2) Pancytopenia Narrative/Plan: Not felt to be related to chemotherapy as pt has not had treatment since 09/12. Pt had history of pancytopenia due to liver disease and splenic sequestration, GI consulted. Hgb and platelets are adequate, no evidence of acute bleeding, labs daily, no asa, NSAIDs or anticoagulation, GCS-F for neutropenia not indicated, pt is not febrile or septic, will follow pt and make further recommendations based on pt clinical course Status: Acute Plan: Social Work consulted for DME needed in home, pt may need home care.
[2016-10-22] MEDS: FUROSEMIDE 10 MG/ML 10 ML VIAL IV SCH (23:41)
[2016-10-23] MEDS: TEMAZEPAM 15 MG CAP PO PRN (01:06)
[2016-10-23] MEDS: HYDROmorphone 1 MG/ML 1 ML SYRINGE IVP PRN ×6 (01:58→22:56)
[2016-10-23] MEDS: DEXTROSE 5%-0.45% NACL 1,000 ML IV SCH (03:52)
[2016-10-23 06:31] LABS: Anisocytosis Moderate; Basophils % (A) 0 %; CH 36.3; Eosinophils # (A) 0.1 k/uL (0-0.7); Eosinophils % (A) 4 %; HCT 27.1 % (34.0-46.0); HDW 3.51; HGB 9.2 gm/dL (11.4-16.0); Luc # (Auto) 0.06; Luc % (Auto) 4; Lymphocytes # (A) 0.3 k/uL (1.0-4.8); Lymphocytes % (A) 18 %; MCH 37.7 pg (25.0-35.0); Macrocytosis Marked; Mean Platelet Volume 10.8; Monocytes # (A) 0.2 k/uL (0-1.0); Monocytes % (A) 15 %; Neutrophils # (A) 0.8 k/uL (1.3-7.7); Neutrophils % (A) 58 %; Poikilocytosis Slight; RBC 2.44 m/uL (3.80-5.40); RDW 20.7 % (11.5-15.5); WBC (Perox) 1.52
[2016-10-23 06:34] LABS: WBC 1.5 k/uL (3.8-10.6)
[2016-10-23] MEDS: FUROSEMIDE 10 MG/ML 10 ML VIAL IV SCH ×2 (09:15→16:05)
--- NOTE | 2016-10-23 09:31 | PN ---
DATE OF SERVICE: 10/22/2016 She has been hemodynamically stable; however, she has been gaining more fluid. Her blood pressure is 122/56, respiratory rate of 18, pulse rate of 70, temperature 97.9. HEENT is unremarkable. Chest reveals increased breath sounds at the right base. Cardiovascular system reveals an S1, S2. Abdomen is distended. There is 2+ pedal edema. Sodium is 136, potassium 3.6, bicarb 29, BUN of 9, creatinine of 0.52. IMPRESSION: 1. Cirrhosis of the liver with refractory ascites. 2. Pancytopenia secondary to recent chemotherapy. 3. Medical debility. At this point in time, patient was instructed of the need to decrease her water intake, continue diuretic, recheck a CBC and electrolytes tomorrow. Depending on how she does, we shall make further changes to her care. LORETO
--- NOTE | 2016-10-23 11:28 | P.CONS ---
History of Present Illness - Reason for Consult Consult date: 10/23/16 ascites Requesting physician: Richard Nielson - History of Present Illness 51-year-old female with a history of hepatitis C, cirrhosis, portal hypertension , esophageal varices, GI variceal bleeds, anxiety, recent diagnosis of left breast carcinoma July 2016 status post neoadjuvant chemotherapy. Admitted with progressive weakness abdominal distention lower leg swelling early satiety. Patient has missed a few of her chemotherapy session secondary to feeling so weakness and lack of transportation. Reports poor nutrition over the last few months with no desire to eat. White count 1.5. Hemoglobin 9.2. Platelet 28,000. INR 1.3. Total bilirubin 2.7. AST 43. ALT 32. Alkaline phosphatase 73. Albumin 2.5. Sodium 136. Potassium 3.6. BUN 9. Creatinine 0.5. AFP March 2016 4.6. Brar of hepatitis C measurement 925,000 in January 2016 genotype 3a. Receiving Lasix 60 mg every 8 hours. No home diuretics. No history of paracentesis. Review of Systems Constitutional: Denies fever, chills, sweats, weight gain, or loss. HEENT: Negative for migraines, blurred vision or loss, earaches, drainage, tinnitus, oral mucosal lesions, dysphagia, or odynophagia. CARDIAC: Negative for chest pain, arrhythmias, or palpitation. RESPIRATORY: Negative for shortness of breath, hemoptysis, cough, or sputum production. GI: See HPI for pertinent findings. : Negative for hematuria, urgency, frequency, polyuria, or dysuria. GYNc: Left breast carcinoma. Negative vaginal discharge. MUSCULOSKELETAL: Negative for muscle aches, swelling, arthritis, and arthralgias. NEUROLOGIC: Negative for stroke or TIA. ENDOCRINE: Negative for thyroid problems. SKIN: Negative for rash or itching. PSYCHIATRIC: Negative history for depression. Anxiety. All systems: negative (See HPI) Past Medical History Past Medical History: Cancer, GERD/Reflux, GI Bleed, Hypertension, Liver Disease Additional Past Medical History / Comment(s): Hepatitis C, Vertigo; "benign abd mass", states has had esophageal banding, lt breast cancer had chemo last on 09-12, lt ear hearing loss. multiple GI bleeds History of Any Multi-Drug Resistant Organisms: None Reported Past Surgical History: Adenoidectomy, Tonsillectomy Additional Past Surgical History / Comment(s): EGD, rt chest mediport 08-06-16, "esophageal banding" Past Anesthesia/Blood Transfusion Reactions: No Reported Reaction Additional Past Anesthesia/Blood Transfusion Reaction / Comm: blood transfusions - no reaction Past Psychological History: No Psychological Hx Reported Additional Psychological History / Comment(s): Has a history of hepatitis C with esophageal variceal bleeds requiring banding several years ago. Continues to smoke. No current injection drug use. No experience. No international travel. No animal exposures. Lives with her family Smoking Status: Current every day smoker Additional Past Alcohol Use History / Comment(s): pt smokes a couple cigarettes a day - Past Family History Mother Family Medical History: Cancer Additional Family Medical History / Comment(s): of lung ca Father Family Medical History: Myocardial Infarction ([place]) Additional Family Medical History / Comment(s): from 2nd heart attack Medications and Allergies Home Medications Medication Instructions Recorded Confirmed Type Hydrocodone/Acetaminophen [[place] 1 tab PO Q4H PRN 08/26/16 10/20/16 History 5-325] Prochlorperazine [Compazine] 10 mg PO Q6H PRN 08/26/16 10/20/16 History Allergies Allergy/AdvReac Type Severity Reaction Status Date / Time No Known Allergies Allergy Verified 10/20/16 19:35 Physical Exam Vitals: Vital Signs Temp Pulse Resp BP Pulse Ox 10/23/16 07:00 98.1 F 85 18 110/56 95 10/23/16 00:00 91 18 10/22/16 23:59 98.3 F 91 18 119/67 97 10/22/16 12:00 97.9 F 78 18 122/56 94 L Intake and Output 10/22/16 10/23/16 10/23/16 22:59 06:59 14:59 Other: Voiding Method Toilet Toilet Toilet # Voids 2 8 Weight 102.5 kg General appearance: The patient is alert, oriented, in no acute distress. HET: Head is normocephalic and atraumatic. Pupils are equal and reactive. Oropharynx is clear without lesions. Hair thin distribution. Neck: Supple without lymphadenopathy. Trachea midline. Heart: S1 S2. Regular rate and rhythm. Lungs: No crackles or wheezes are heard. Abdomen: Soft, distended with edema mild ascites with bowel sounds. No peritoneal signs. No palpable organomegaly or masses. Extremities: Plus for bilateral lower extremity edema with leg wraps. Neurological: No focal deficits. Strength and sensation are grossly intact. Results CBC & Chem 7: 10/23/16 06:00 10/22/16 08:30 Labs: Abnormal Lab Results - Last 24 Hours (Table) 10/23/16 Range/Units 06:00 WBC 1.5 L* (3.8-10.6) k/uL RBC 2.44 L (3.80-5.40) m/uL Hgb 9.2 L (11.4-16.0) gm/dL Hct 27.1 L (34.0-46.0) % MCV 111.0 H (80.0-100.0) fL MCH 37.7 H (25.0-35.0) pg RDW 20.7 H (11.5-15.5) % Plt Count 28 L* (150-450) k/uL Neutrophils # 0.8 L (1.3-7.7) k/uL Lymphocytes # 0.3 L (1.0-4.8) k/uL Assessment and Plan (1) Cirrhosis of liver Narrative/Plan: 51-year-old female with a history of liver cirrhosis hepatitis C portal hypertension with left breast carcinoma status post neoadjuvant chemotherapy with underlying pancytopenia and development of bilateral lower extremity edema abdominal swelling possible mild ascites. Overall presentation of lower extremity edema seems to be related more so to poor nutritional status hypoalbuminemia with secondary effects of chronic liver disease. Liver function tests stable. Status: Chronic (2) Carcinoma of left breast Status: Acute (3) Pancytopenia Status: Acute (4) Ascites Status: Acute (5) Hepatitis C Status: Chronic (6) Portal hypertension Status: Acute Plan: 1. Continue diuretic therapy. Will add Aldactone 50 mg twice daily. 2. Ultrasound abdomen assessment of ascites. Dr. Botello recommends holding off on possible paracentesis secondary to pancytopenia increased risk for infection. 3. Dietary consultation for nutritional assessment. Prealbumin level. We'll recheck AFP marker. Ensure complete 3 times daily with meals. Low-salt diet. Supportive measures. Thank you for this kind referral and the opportunity to participate in the care of your patient. This consultation was discussed with Dr. Botello. The impression and plan of care have been directed as dictated.
[2016-10-23 12:05] VITALS: BMI 33.3
[2016-10-23] MEDS: SPIRONOLACTONE 25 MG TAB PO SCH ×2 (13:09→20:18)
--- NOTE | 2016-10-23 14:07 | US ---
EXAMINATION TYPE: US abdomen limited DATE OF EXAM: 10/23/2016 COMPARISON: NONE CLINICAL HISTORY: ascites evaluation. Fluid visualized in all 4 quadrants. IMPRESSION: There is evidence for ascites in all 4 quadrants.
--- NOTE | 2016-10-23 15:11 | P.PN ---
Subjective Principal diagnosis: Cirrhosis of the liver with ascities and lower extremity swelling Patient is seen up ambulating in the room to the bathroom. Patient states that she is still have abdominal pain. Denies shortness of breath, feels like her swelling is going down in her legs, states "I can lift my legs on to the bed now which I couldn't do when I came in". Patient is hemodynamically stable, afebrile, in no acute distress. Objective - Vital Signs Vital signs: Vital Signs Temp 98.1 F 10/23/16 07:00 Pulse 85 10/23/16 07:00 Resp 18 10/23/16 07:00 BP 110/56 10/23/16 07:00 Pulse Ox 95 10/23/16 07:00 Intake & Output 10/22/16 10/23/16 10/23/16 18:59 06:59 18:59 Intake Total 190 Output Total 300 Balance -110 Weight 102.5 kg 102.5 kg Intake: IV 40 Dextrose 5%-0.45% NaCl 1, 40 000 ml @ 20 mls/hr IV . Q24H [facility] Rx#:[id number] Oral 150 Output: Urine 300 Other: Voiding Method Toilet Toilet Toilet # Voids 2 8 - Constitutional General appearance: Present: cooperative, no acute distress - Neck Neck: Present: normal ROM - Respiratory Respiratory: bilateral: diminished, negative: rales, rhonchi, wheezing - Cardiovascular Rhythm: regular Heart sounds: normal: S1, S2 - Peripheral edema leg Peripheral Edema: bilateral: 2+, Pitting - Gastrointestinal General gastrointestinal: Present: distended, normal bowel sounds, soft Localized gastrointestinal: tender: diffuse - Integumentary Integumentary: Present: pale - Neurologic Neurologic Comment(s): alert and oriented - Musculoskeletal Musculoskeletal: Present: generalized weakness - Psychiatric Psychiatric: Present: A&O x's 3 - Labs CBC & Chem 7: 10/23/16 06:00 10/22/16 08:30 Labs: Abnormal Lab Results - Last 24 Hours (Table) 10/23/16 Range/Units 06:00 WBC 1.5 L* (3.8-10.6) k/uL RBC 2.44 L (3.80-5.40) m/uL Hgb 9.2 L (11.4-16.0) gm/dL Hct 27.1 L (34.0-46.0) % MCV 111.0 H (80.0-100.0) fL MCH 37.7 H (25.0-35.0) pg RDW 20.7 H (11.5-15.5) % Plt Count 28 L* (150-450) k/uL Neutrophils # 0.8 L (1.3-7.7) k/uL Lymphocytes # 0.3 L (1.0-4.8) k/uL - Imaging and Cardiology Abdominal x-ray: report reviewed (positive for fluid in all four quads) Assessment and Plan (1) Cirrhosis of liver Status: Chronic (2) Carcinoma of left breast Status: Acute (3) Pancytopenia Status: Acute (4) Ascites Status: Acute Plan: Continue current medications which have been reviewed. Add Protonix for GI prophylaxis. Follow and appreciate recommendations per GI and Oncology/ Hematology. Will continue to follow patient closely making further changes as necessary. Time with Patient: Less than 30
[2016-10-23] MEDS: HYDROcodone/APAP 5-325MG 1 EACH TAB PO PRN (16:04)
[2016-10-24] MEDS: FUROSEMIDE 10 MG/ML 10 ML VIAL IV SCH ×3 (00:38→17:18)
[2016-10-24] MEDS: HYDROcodone/APAP 5-325MG 1 EACH TAB PO PRN ×3 (00:39→17:17)
[2016-10-24] MEDS: DEXTROSE 5%-0.45% NACL 1,000 ML IV SCH (01:53)
[2016-10-24] MEDS: HYDROmorphone 1 MG/ML 1 ML SYRINGE IVP PRN ×3 (03:04→12:17)
[2016-10-24] MEDS ORDERED: PANTOPRAZOLE 40 MG TABLET PO SCH (07:30)
[2016-10-24] MEDS: SPIRONOLACTONE 25 MG TAB PO SCH (07:50)
[2016-10-24 08:10] VITALS: RESP 18
--- NOTE | 2016-10-24 11:47 | P.PN ---
Subjective Principal diagnosis: History of liver cirrhosis ascites 51-year-old female with a history of breast carcinoma admitted with worsening lower extremity edema and abdominal distention. Prealbumin less than 2. Ultrasound abdomen reported ascites in all 4 quadrants. Afebrile. Feels slightly better today. Diuretics adjusted yesterday. Objective - Vital Signs Vital signs: Vital Signs Temp 97.8 F 10/24/16 07:00 Pulse 91 10/24/16 07:00 Resp 18 10/24/16 07:00 BP 126/60 10/24/16 07:00 Pulse Ox 95 10/24/16 07:00 Intake & Output 10/23/16 10/24/16 10/24/16 18:59 06:59 18:59 Intake Total 75 Balance 75 Weight 102.5 kg 100 kg Intake: Oral 75 Other: Voiding Method Toilet Toilet # Voids 4 3 - Exam General appearance: The patient is alert, oriented, in no acute distress. HET: Head is normocephalic and atraumatic. Pupils are equal and reactive. Oropharynx is clear without lesions. Hair thin distribution. Neck: Supple without lymphadenopathy. Trachea midline. Heart: S1 S2. Regular rate and rhythm. Lungs: No crackles or wheezes are heard. Abdomen: Soft, distended with edema mild ascites with bowel sounds. No peritoneal signs. No palpable organomegaly or masses. Extremities: Plus for bilateral lower extremity edema with leg wraps. Neurological: No focal deficits. Strength and sensation are grossly intact. - Labs CBC & Chem 7: 10/23/16 06:00 10/22/16 08:30 Labs: Abnormal Lab Results - Last 24 Hours (Table) 10/21/16 Range/Units 06:00 Prealbumin <3 L (18-36) mg/dL Assessment and Plan (1) Cirrhosis of liver Narrative/Plan: 51-year-old female with a history of liver cirrhosis hepatitis C portal hypertension with left breast carcinoma status post neoadjuvant chemotherapy with underlying pancytopenia and development of bilateral lower extremity edema abdominal swelling possible mild ascites. Overall presentation of lower extremity edema seems to be related more so to poor nutritional status hypoalbuminemia with secondary effects of chronic liver disease. Liver function tests stable. Status: Chronic (2) Carcinoma of left breast Status: Acute (3) Pancytopenia Status: Acute (4) Ascites Status: Acute (5) Hepatitis C Status: Chronic (6) Portal hypertension Status: Acute (7) Protein-calorie malnutrition, severe Narrative/Plan: Prealbumin less than 3. Serum albumin 2.5 with ascites and anasarca worsening bilateral lower extremity edema Status: Acute Plan: 1. Dietary consultation requested with protein shakes 3 times daily with meals. Social work consult for evaluation of home needs transportation. 2. Paracentesis not planned at this time; we'll continue with diuretics, Lasix 40 mg daily and Aldactone 50 mg twice daily on discharge. Return to office in 2 weeks after discharge for reevaluation. If diagnostic paracentesis ascitic fluid analysis is necessary for additional diagnoses we'll defer to oncology to speak with interventional radiology as they are not recommending paracentesis at this time secondary to risk of infection regarding leukopenia. Assessment and plan a care discussed with Dr. Botello.
[2016-10-24 15:46] VITALS: BP 128/60; PULSE 105; TEMP 98
--- NOTE | 2016-10-24 18:47 | P.PN ---
Subjective Principal diagnosis: ascites, weakness Pt seen today in follow up, she is doing much better, she is getting around the room independently, less c/o and discomfort, she is tolerating oral intake, she c/o anxiety. Objective - Vital Signs Vital signs: Vital Signs Temp 98.0 F 10/24/16 15:00 Pulse 105 H 10/24/16 15:00 Resp 18 10/24/16 15:00 BP 128/60 10/24/16 15:00 Pulse Ox 92 L 10/24/16 15:00 Intake & Output 10/23/16 10/24/16 10/24/16 18:59 06:59 18:59 Intake Total 75 525 Balance 75 525 Weight 102.5 kg 100 kg Intake: IV 0 Dextrose 5%-0.45% NaCl 1, 0 000 ml @ 20 mls/hr IV . Q24H [facility] Rx#:[id number] Oral 75 525 Other: Voiding Method Toilet Toilet Toilet # Voids 4 3 4 - Constitutional Constitutional Comment(s): WD, frail female visualized walking around the room, NAD, respirations even and unlabored, abd is distended, BLE swelling stable, no weeping or redness noted - Labs CBC & Chem 7: 10/23/16 06:00 10/22/16 08:30 Labs: Abnormal Lab Results - Last 24 Hours (Table) 10/21/16 Range/Units 06:00 Prealbumin <3 L (18-36) mg/dL Assessment and Plan (1) Breast cancer Narrative/Plan: Pt is going to see Dr. Puente for follow up to discuss further dose reduction of chemo due to hematological toxicities and liver disease or the possibility of going to surgery now. Status: Chronic (2) Pancytopenia Narrative/Plan: CBC is low but stable today. Pt is 6 weeks out from any chemo treatments, severe toxicity from treatment felt to be exacerbated by liver disease. No transfusions needed, CBC will be checked in office. Status: Acute Plan: Pt was seen by Social Work and received the resources she needed.
== END 2016-10-24 18:05 | disposition home or self-care (01) ==
LOC: EC 18:27 → 6SEL 22:59 → 5ONC 10-22 14:04 → 6SEL 10-22 14:14 → 5ONC 10-22 14:40
PROVIDERS: ADMIT Internal Medicine Pulmonary Disease; ATTEND Internal Medicine Pulmonary Disease
DX: B19.20 Unspecified viral hepatitis C without hepatic coma (principal); R18.8 Other ascites; K74.60 Unspecified cirrhosis of liver; C50.912 Malignant neoplasm of unspecified site of left female breast; K21.9 Gastro-esophageal reflux disease without esophagitis; I10 Essential (primary) hypertension; H91.92 Unspecified hearing loss, left ear; R19.00 Intra-abdominal and pelvic swelling, mass and lump, unspecified site; T45.1X5A Adverse effect of antineoplastic and immunosuppressive drugs, initial encounter; D61.810 Antineoplastic chemotherapy induced pancytopenia; E87.6 Hypokalemia; R74.8 Abnormal levels of other serum enzymes; F17.210 Nicotine dependence, cigarettes, uncomplicated; Z79.899 Other long term (current) drug therapy; Z82.49 Family history of ischemic heart disease and other diseases of the circulatory system; Z80.1 Family history of malignant neoplasm of trachea, bronchus and lung; K76.6 Portal hypertension; E43 Unspecified severe protein-calorie malnutrition; Z68.32 Body mass index [BMI] 32.0-32.9, adult; F41.9 Anxiety disorder, unspecified
CPT/HCPCS: 99285 ×2; 96376 ×4; 96374; 96375 ×3; 36415; 94760; 93005; 84134; 83880; 80053; 80048 ×2; 82550 ×2; 82553 ×2; 82803; 84484 ×2; 85025 ×3; 85610; 85730; 82105; 71020; 76705; G0378 ×6; J1940 ×5; J2405; J1642; J1170 ×3

== ENCOUNTER 2016-11-11 13:03 | Inpatient (IN) | payer MEDICARE, OTHER ==
--- NOTE | 2016-11-11 14:16 | XR ---
EXAMINATION TYPE: XR KUB DATE OF EXAM: 11/11/2016 2:11 PM CLINICAL HISTORY: Abdominal pain and distention with nausea, history of hepatitis TECHNIQUE: 2 upright KUB images of the abdomen are obtained. COMPARISON: CT abdomen and pelvis July 09, 2016. FINDINGS: Some paucity of bowel gas is seen. Visualized gas is noted in nondistended small and large bowel loops scattered throughout the abdomen and pelvis. Spleen remains enlarged. Liver is small in s ize. No pneumoperitoneum is present. The lung bases are clear and the osseous structures are intact. IMPRESSION: Overall nonspecific but strongly favor nonobstructive bowel gas pattern.
[2016-11-11 14:19] LABS: INR 1.3 (<1.2); Partial Thromboplastin Time 27.3 sec (22.0-30.0); Prothrombin Time 12.9 sec (9.0-12.0)
[2016-11-11 14:23] LABS: ALT 28 U/L (9-52); AST 42 U/L (14-36); Alkaline Phosphatase 77 U/L (38-126); Anion Gap 7 mmol/L; Blood Urea Nitrogen 7 mg/dL (7-17); Calcium 8.2 mg/dL (8.4-10.2); Carbon Dioxide 26 mmol/L (22-30); Chloride 105 mmol/L (98-107); Glucose 98 mg/dL (74-99); Non-African American GFR(MDRD) >60 (>60 ml/min/1.73 sqM); Potassium 3.2 mmol/L (3.5-5.1); Sodium 138 mmol/L (137-145); Total Bilirubin 2.6 mg/dL (0.2-1.3); Total Protein 6.1 g/dL (6.3-8.2)
[2016-11-11 14:36] LABS: Anisocytosis Slight; Basophils % (A) 0 %; CH 36.8; CHCM 33.9; Eosinophils % (A) 1 %; HCT 34.3 % (34.0-46.0); HDW 3.54; HGB 11.6 gm/dL (11.4-16.0); Luc # (Auto) 0.11; Luc % (Auto) 4; Lymphocytes # (A) 0.4 k/uL (1.0-4.8); Lymphocytes % (A) 14 %; MCHC 33.8 g/dL (31.0-37.0); MCV 109.7 fL (80.0-100.0); Macrocytosis Marked; Mean Platelet Volume 9.9; Monocytes # (A) 0.3 k/uL (0-1.0); Monocytes % (A) 9 %; Neutrophils # (A) 2.2 k/uL (1.3-7.7); Neutrophils % (A) 73 %; Poikilocytosis Slight; RBC 3.13 m/uL (3.80-5.40); RDW 18.7 % (11.5-15.5); WBC (Perox) 3.13
[2016-11-11] MEDS ORDERED: ONDANSETRON 4 MG/2 ML VIAL IVP STA (15:07)
[2016-11-11 15:09] LABS: Appearance,Urine Turbid (Clear); Bacteria,Urine Many /hpf; Bilirubin,Urine 1+ (Negative); Glucose,Urine (UA) Negative (Negative); Ketones,Urine Trace (Negative); Leukocyte Esterase,Urine Small (Negative); Mucus,Urine Many /hpf; Nitrite,Urine Positive (Negative); Particle Count 133880; Protein,Urine 1+ (Negative); RBC,Urine 2 /hpf (0-5); Specific Gravity,Urine 1.026 (1.001-1.035); Squamous Epithelial Cell,Urine 20 /hpf (0-4); UA Billing (MACRO vs. MICRO) MICRO; WBC,Urine 26 /hpf (0-5)
[2016-11-11] MEDS ORDERED: POTASSIUM BICARB-CITRIC ACID 25 MEQ TABLET.EFF PO STA (15:46)
[2016-11-11] MEDS ORDERED: NALOXONE 0.4 MG/ML 1 ML VIAL IV PRN (16:23)
--- NOTE | 2016-11-11 16:39 | ED ---
General Adult HPI - General Chief complaint: Nausea/Vomiting/Diarrhea Stated complaint: Nauseated Time Seen by Provider: 11/11/16 13:22 Source: patient, RN notes reviewed, old records reviewed Mode of arrival: ambulatory Limitations: no limitations - History of Present Illness Initial comments: 51-year-old female history of breast cancer currently on chemo, last treatment was September 12, and liver failure presents with nausea and vomiting and enlarging abdominal swelling. Patient also reports 2 episodes of diarrhea. Complains of dysuria and lower abdominal pain. Patient denies fever or chills. Denies chest pain or shortness of breath. Does report bilateral lower extremity swelling. - Related Data Home Medications Medication Instructions Recorded Confirmed Hydrocodone/Acetaminophen [[place] 1 tab PO Q4H PRN 08/26/16 11/11/16 5-325] Prochlorperazine [Compazine] 10 mg PO Q6H PRN 08/26/16 11/11/16 Allergies Allergy/AdvReac Type Severity Reaction Status Date / Time No Known Allergies Allergy Verified 11/11/16 14:00 Review of Systems ROS Statement: Those systems with pertinent positive or pertinent negative responses have been documented in the HPI. ROS Other: All systems not noted in ROS Statement are negative. Past Medical History Past Medical History: Cancer, GERD/Reflux, GI Bleed, Hypertension, Liver Disease Additional Past Medical History / Comment(s): Hepatitis C, Vertigo; "benign abd mass", states has had esophageal banding, lt breast cancer had chemo last on 09-12, lt ear hearing loss. multiple GI bleeds History of Any Multi-Drug Resistant Organisms: None Reported Past Surgical History: Adenoidectomy, Tonsillectomy Additional Past Surgical History / Comment(s): EGD, rt chest mediport 08-06-16, "esophageal banding" Past Anesthesia/Blood Transfusion Reactions: No Reported Reaction Additional Past Anesthesia/Blood Transfusion Reaction / Comment(s): blood transfusions- no reaction Past Psychological History: No Psychological Hx Reported Smoking Status: Current every day smoker Past Alcohol Use History: None Reported Past Drug Use History: None Reported - Past Family History Mother Family Medical History: Cancer Additional Family Medical History / Comment(s): of lung ca Father Family Medical History: Myocardial Infarction ([place]) Additional Family Medical History / Comment(s): from 2nd heart attack General Exam Limitations: no limitations General appearance: alert, in no apparent distress, other Head exam: Present: atraumatic, normocephalic Eye exam: Present: normal appearance, PERRL. Absent: scleral icterus, conjunctival injection ENT exam: Present: normal exam, mucous membranes moist Neck exam: Present: normal inspection. Absent: tenderness, meningismus Respiratory exam: Present: normal lung sounds bilaterally. Absent: respiratory distress, rales Cardiovascular Exam: Present: regular rate, normal rhythm GI/Abdominal exam: Present: distended, tenderness (Suprapubic tenderness to palpation), other (Positive fluid wave). Absent: guarding, rebound Extremities exam: Present: pedal edema (2+ pitting edema) Back exam: Present: normal inspection. Absent: CVA tenderness (R), CVA tenderness (L) Neurological exam: Present: alert, oriented X3, CN II-XII intact, other (No asterixis). Absent: motor sensory deficit Psychiatric exam: Present: normal affect, normal mood Skin exam: Present: warm, dry, other (pale). Absent: cyanosis, diaphoretic Course Vital Signs 11/11/16 11/11/16 11/11/16 13:08 15:10 16:17 Temperature 98.0 F 97.6 F Pulse Rate 106 H 82 78 Respiratory 22 16 20 Rate Blood Pressure 163/74 118/51 124/78 O2 Sat by Pulse 96 100 98 Oximetry - Reevaluation(s) Reevaluation #1: 11/11/16 16:34 Patient has no episodes of nausea vomiting in the emergency department. Medical Decision Making - Medical Decision Making 51-year-old female history of breast cancer and liver failure presenting with nausea, generalized weakness and abdominal swelling. Patient does have large distended abdomen with positive fluid wave, and 2+ laboratory pending edema. Abdomen is otherwise soft. Laboratory studies reveal a stable hemoglobin, white blood cell, 3.0, and fluid platelet count. INR is 1.3, albumin 2.6, mild hyperbilirubinemia at 2.6. Potassium is 3.2 and is replaced. X-rays negative for obstruction. Case is discussed with the patient's primary care physician, was recommended that the patient be admitted for further evaluation and treatment as well as GI consultation for ascites. Urinalysis is contaminated, however there are signs of infection, the patient does report suprapubic tenderness and dysuria. She will be treated for urinary tract infection, urine culture is pending. Diagnosis: Ascites, hypokalemia, nausea, UTI - Lab Data Result diagrams: 11/11/16 13:50 11/11/16 13:50 Lab Results 11/11/16 11/11/16 11/11/16 Range/Units 13:50 13:50 13:50 WBC 3.0 L (3.8-10.6) k/uL RBC 3.13 L (3.80-5.40) m/uL Hgb 11.6 (11.4-16.0) gm/dL Hct 34.3 (34.0-46.0) % MCV 109.7 H (80.0-100.0) fL MCH 37.0 H (25.0-35.0) pg MCHC 33.8 (31.0-37.0) g/dL RDW 18.7 H (11.5-15.5) % Plt Count 51 L D (150-450) k/uL Neutrophils % 73 % Lymphocytes % 14 % Monocytes % 9 % Eosinophils % 1 % Basophils % 0 % Neutrophils # 2.2 (1.3-7.7) k/uL Lymphocytes # 0.4 L (1.0-4.8) k/uL Monocytes # 0.3 (0-1.0) k/uL Eosinophils # 0.0 (0-0.7) k/uL Basophils # 0.0 (0-0.2) k/uL Poikilocytosis Slight Anisocytosis Slight Macrocytosis Marked PT (9.0-12.0) sec INR (<1.2) APTT (22.0-30.0) sec Sodium 138 (137-145) mmol/L Potassium 3.2 L (3.5-5.1) mmol/L Chloride 105 (98-107) mmol/L Carbon Dioxide 26 (22-30) mmol/L Anion Gap 7 mmol/L BUN 7 (7-17) mg/dL Creatinine 0.59 (0.52-1.04) mg/dL Est GFR (MDRD) Af Amer >60 (>60 ml/min/1.73 sqM) Est GFR (MDRD) Non-Af >60 (>60 ml/min/1.73 sqM) Glucose 98 (74-99) mg/dL Plasma Lactic Acid [place] 1.6 (0.7-2.0) mmol/L Calcium 8.2 L (8.4-10.2) mg/dL Total Bilirubin 2.6 H (0.2-1.3) mg/dL AST 42 H (14-36) U/L ALT 28 (9-52) U/L Alkaline Phosphatase 77 (38-126) U/L Ammonia 14 (<30) umol/L Total Protein 6.1 L (6.3-8.2) g/dL Albumin 2.6 L (3.5-5.0) g/dL Lipase 56 (23-300) U/L Urine Color Urine Appearance (Clear) Urine pH (5.0-8.0) Ur Specific [place] (1.001-1.035) Urine Protein (Negative) Urine Glucose (UA) (Negative) Urine Ketones (Negative) Urine Blood (Negative) Urine Nitrite (Negative) Urine Bilirubin (Negative) Urine Urobilinogen (<2.0) mg/dL Ur Leukocyte Esterase (Negative) Urine RBC (0-5) /hpf Urine WBC (0-5) /hpf Ur Squamous Epith Cells (0-4) /hpf Urine Bacteria (None) /hpf Hyaline Casts (0-2) /lpf Urine Mucus (None) /hpf 11/11/16 11/11/16 Range/Units 13:50 14:50 WBC (3.8-10.6) k/uL RBC (3.80-5.40) m/uL Hgb (11.4-16.0) gm/dL Hct (34.0-46.0) % MCV (80.0-100.0) fL MCH (25.0-35.0) pg MCHC (31.0-37.0) g/dL RDW (11.5-15.5) % Plt Count (150-450) k/uL Neutrophils % % Lymphocytes % % Monocytes % % Eosinophils % % Basophils % % Neutrophils # (1.3-7.7) k/uL Lymphocytes # (1.0-4.8) k/uL Monocytes # (0-1.0) k/uL Eosinophils # (0-0.7) k/uL Basophils # (0-0.2) k/uL Poikilocytosis Anisocytosis Macrocytosis PT 12.9 H (9.0-12.0) sec INR 1.3 H (<1.2) APTT 27.3 (22.0-30.0) sec Sodium (137-145) mmol/L Potassium (3.5-5.1) mmol/L Chloride (98-107) mmol/L Carbon Dioxide (22-30) mmol/L Anion Gap mmol/L BUN (7-17) mg/dL Creatinine (0.52-1.04) mg/dL Est GFR (MDRD) Af Amer (>60 ml/min/1.73 sqM) Est GFR (MDRD) Non-Af (>60 ml/min/1.73 sqM) Glucose (74-99) mg/dL Plasma Lactic Acid [place] (0.7-2.0) mmol/L Calcium (8.4-10.2) mg/dL Total Bilirubin (0.2-1.3) mg/dL AST (14-36) U/L ALT (9-52) U/L Alkaline Phosphatase (38-126) U/L Ammonia (<30) umol/L Total Protein (6.3-8.2) g/dL Albumin (3.5-5.0) g/dL Lipase (23-300) U/L Urine Color Dark Brown Urine Appearance Turbid H (Clear) Urine pH 6.0 (5.0-8.0) Ur Specific [place] 1.026 (1.001-1.035) Urine Protein 1+ H (Negative) Urine Glucose (UA) Negative (Negative) Urine Ketones Trace H (Negative) Urine Blood Trace H (Negative) Urine Nitrite Positive H (Negative) Urine Bilirubin 1+ H (Negative) Urine Urobilinogen 4.0 (<2.0) mg/dL Ur Leukocyte Esterase Small H (Negative) Urine RBC 2 (0-5) /hpf Urine WBC 26 H (0-5) /hpf Ur Squamous Epith Cells 20 H (0-4) /hpf Urine Bacteria Many H (None) /hpf Hyaline Casts 19 H (0-2) /lpf Urine Mucus Many H (None) /hpf Disposition Clinical Impression: Ascites, Hypokalemia Disposition: ADMITTED IP TO THIS HOSP Referrals: Mark Estrada MD [Primary Care Provider] - 1-2 days Decision to Admit Reason: Admit from EC Decision Date: 11/11/16 Decision Time: 16:15
[2016-11-11] MEDS: HYDROcodone/APAP 5-325MG 1 EACH TAB PO PRN (20:32)
[2016-11-12] MEDS: HYDROcodone/APAP 5-325MG 1 EACH TAB PO PRN ×4 (03:06→21:11)
[2016-11-12 08:02] LABS: Anisocytosis Slight; Aty Lym Flag Slight; CH 37.3; CHCM 32.4; HCT 26.8 % (34.0-46.0); HDW 3.48; HGB 8.8 gm/dL (11.4-16.0); Hypochromasia Slight; Large Platelets Flag Moderate; MCH 38.3 pg (25.0-35.0); MCHC 32.9 g/dL (31.0-37.0); MCV 116.3 fL (80.0-100.0); Macrocytosis Marked; Mean Platelet Volume 11.3; Poikilocytosis Slight; RDW 16.4 % (11.5-15.5); WBC (Perox) 0.99
[2016-11-12 08:05] LABS: ALT 24 U/L (9-52); AST 33 U/L (14-36); Alkaline Phosphatase 53 U/L (38-126); Anion Gap 4 mmol/L; Blood Urea Nitrogen 7 mg/dL (7-17); Calcium 7.5 mg/dL (8.4-10.2); Carbon Dioxide 26 mmol/L (22-30); Chloride 107 mmol/L (98-107); Glucose 74 mg/dL (74-99); Non-African American GFR(MDRD) >60 (>60 ml/min/1.73 sqM); Potassium 3.5 mmol/L (3.5-5.1); Sodium 137 mmol/L (137-145); Total Bilirubin 1.7 mg/dL (0.2-1.3); Total Protein 4.7 g/dL (6.3-8.2)
[2016-11-12 08:44] LABS: WBC 0.9 k/uL (3.8-10.6)
[2016-11-12 11:00] LABS: Add Differential Manual Differential; Manual Review Performed
[2016-11-12] MEDS: FILGRASTIM-SNDZ 480 MCG/0.8 ML SYRINGE SQ SCH (11:58)
[2016-11-12] MEDS ORDERED: PROCHLORPERAZINE 10 MG TAB PO PRN (16:10)
--- NOTE | 2016-11-12 16:22 | P.GSCN ---
History of Present Illness Consult date: 11/12/16 Requesting physician: Mark Estrada History of present illness: 51-year-old female being seen at the request of the attending for surgical eval who has a known history of left breast cancer on July 11 patient was seen by . Patient underwent needle core biopsy of the left breast mass done on July 11 which showed invasive ductal carcinoma with papillary features patient had undergone a CAT scan of the chest and abdomen on July 08 as part of a workup for abdominal pain. At that time there was an incidental finding of a left breast mass. Patient has not had a mammogram or an ultrasound of the breast done in the past Patient was referred to hematology oncology and was seen by Dr. Puente. Patient reportedly had chemotherapy treatment last in September 12 2016. Patient did present to the emergency room with a chief complaint of nausea vomiting and loose stools patient states she could not tolerate the chemotherapy the last treatment was done on September 12 "is not that she doesn't want to complete the chemotherapy for the left breast cancer it's just she feels weak nausea can't tolerate the symptoms. Patient additionally reports that she needs to use the bus service for transportation. In it's hard for her to get to appointments. Patient states "I'd like the surgeon to remove the left breast as I cannot tolerate the chemotherapy" did note patient's has significant ascites with increase edema to the lower extremities. Patient states over the last several days had noted lower extremities to be more edematous. Patient does have a past medical history significant for chronic hepatitis C with cirrhosis and portal hypertension. Patient states she's not certain how she contacted hepatitis C but indicated that she was to start receiving antiviral treatment at the end of June according to the patient she had not started treatment. Patient gives a remote history of using IV drugs at the age of 13 but according to the patient none since. Patient states she does not drink alcohol. Patient continues to smoke cigarettes 1 pack a day. Patient reportedly has had in EGD done in April 2016 by GI service who indicated there was evidence of esophageal varices 2 small ulcerative areas multiple biopsies were obtained they were negative. Review of Systems Difficult to obtain patient is a poor historian Past Medical History Past Medical History: Cancer, GERD/Reflux, GI Bleed, Hypertension, Liver Disease Additional Past Medical History / Comment(s): Hepatitis C, Vertigo; "benign abd mass", states has had esophageal banding, lt breast cancer had chemo last on 09-12, lt ear hearing loss. multiple GI bleeds History of Any Multi-Drug Resistant Organisms: None Reported Past Surgical History: Adenoidectomy, Tonsillectomy Additional Past Surgical History / Comment(s): EGD, rt chest [facility] 08-06-16, "esophageal banding" Past Anesthesia/Blood Transfusion Reactions: No Reported Reaction Additional Past Anesthesia/Blood Transfusion Reaction / Comm: blood transfusions - no reaction Smoking Status: Current every day smoker - Past Family History Mother Family Medical History: Cancer Additional Family Medical History / Comment(s): of lung ca Father Family Medical History: Myocardial Infarction (CT) Additional Family Medical History / Comment(s): from 2nd heart attack Medications and Allergies Home Medications Medication Instructions Recorded Confirmed Type Hydrocodone/Acetaminophen [[place] 1 tab PO Q4H PRN 08/26/16 11/11/16 History 5-325] Prochlorperazine [Compazine] 10 mg PO Q6H PRN 08/26/16 11/11/16 History Allergies Allergy/AdvReac Type Severity Reaction Status Date / Time No Known Allergies Allergy Verified 11/11/16 14:00 Surgical - Exam Vital Signs Temp Pulse Resp BP Pulse Ox 98.0 F 106 H 22 163/74 96 11/11/16 13:08 11/11/16 13:08 11/11/16 13:08 11/11/16 13:08 11/11/16 13:08 GENERAL APPEARANCE: The patient is alert, oriented, in no acute distress. Sitting up in bed reports having no appetite VITAL SIGNS: HEENT: Head is normocephalic and atraumatic. Pupils are equal and reactive. The nares are patent. Oropharynx is clear without lesions. NECK: Supple without lymphadenopathy. Traches midline. HEART: S1, S2. Regular rate and rhythm. LUNGS: No crackles or wheezes are heard. ABDOMEN: Soft, nontender, slightly distended ascites with good bowel sounds. No peritoneal signs. No palpable organomegaly or masses. EXTREMITIES: Nonpitting edema to the bilateral lower extremities Radial pedal pulses are 2/4 bilaterally. NEUROLOGICAL: No focal deficits. Strength and sensation are grossly intact. Results - Labs 11/17/16 08:41 11/17/16 08:41 Abnormal Lab Results - Last 24 Hours (Table) 11/12/16 11/12/16 Range/Units 07:22 07:22 WBC 0.9 L* (3.8-10.6) k/uL RBC 2.30 L (3.80-5.40) m/uL Hgb 8.8 L D (11.4-16.0) gm/dL Hct 26.8 L (34.0-46.0) % MCV 116.3 H D (80.0-100.0) fL MCH 38.3 H (25.0-35.0) pg RDW 16.4 H (11.5-15.5) % Plt Count 25 L* D (150-450) k/uL Calcium 7.5 L (8.4-10.2) mg/dL Total Bilirubin 1.7 H (0.2-1.3) mg/dL Total Protein 4.7 L (6.3-8.2) g/dL Albumin 2.0 L (3.5-5.0) g/dL Diabetes panel 11/12/16 Range/Units 07:22 Sodium 137 (137-145) mmol/L Potassium 3.5 (3.5-5.1) mmol/L Chloride 107 (98-107) mmol/L Carbon Dioxide 26 (22-30) mmol/L BUN 7 (7-17) mg/dL Creatinine 0.53 (0.52-1.04) mg/dL Glucose 74 (74-99) mg/dL Calcium 7.5 L (8.4-10.2) mg/dL AST 33 (14-36) U/L ALT 24 (9-52) U/L Alkaline Phosphatase 53 (38-126) U/L Total Protein 4.7 L (6.3-8.2) g/dL Albumin 2.0 L (3.5-5.0) g/dL Calcium panel 11/12/16 Range/Units 07:22 Calcium 7.5 L (8.4-10.2) mg/dL Albumin 2.0 L (3.5-5.0) g/dL Pituitary panel 11/12/16 Range/Units 07:22 Sodium 137 (137-145) mmol/L Potassium 3.5 (3.5-5.1) mmol/L Chloride 107 (98-107) mmol/L Carbon Dioxide 26 (22-30) mmol/L BUN 7 (7-17) mg/dL Creatinine 0.53 (0.52-1.04) mg/dL Glucose 74 (74-99) mg/dL Calcium 7.5 L (8.4-10.2) mg/dL Adrenal panel 11/12/16 Range/Units 07:22 Sodium 137 (137-145) mmol/L Potassium 3.5 (3.5-5.1) mmol/L Chloride 107 (98-107) mmol/L Carbon Dioxide 26 (22-30) mmol/L BUN 7 (7-17) mg/dL Creatinine 0.53 (0.52-1.04) mg/dL Glucose 74 (74-99) mg/dL Calcium 7.5 L (8.4-10.2) mg/dL Total Bilirubin 1.7 H (0.2-1.3) mg/dL AST 33 (14-36) U/L ALT 24 (9-52) U/L Alkaline Phosphatase 53 (38-126) U/L Total Protein 4.7 L (6.3-8.2) g/dL Albumin 2.0 L (3.5-5.0) g/dL Assessment and Plan Plan: Impression Present on admission nausea vomiting diarrhea Present on admission pancytopenia suspect related to liver disease recently new diagnosis of July 2016 left breast cancer on status post neoadjuvant chemotherapy last treatment September 12 Current every day smoker History of untreated hepatitis C cirrhosis of the liver with esophageal varices and portal hypertension Present on admission Ascites Prior history of pancytopenia due to liver disease and splenic sequestration Plan await recommendations by oncology service about whether chemotherapy is an option Check a prealbumin level 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 Nanci Canas nurse practitioner acting as scribe for signing physician.
--- NOTE | 2016-11-12 16:27 | P.HPIM ---
History of Present Illness H&P Date: 11/12/16 Chief Complaint: Nausea vomiting increase edema lower extremities 51-year-old female presented on the day of admission to the emergency room to be evaluated for a chief complaint of developing nausea vomiting frequent stooling with increase edema to the lower extremities and abdominal wall. Patient stated that over the last several days has had not had any appetite noted that she was experiencing increase weakness decreased endurance increased difficulty in participating in ADLs. Patient states her last chemo treatment was on September 12. She had not received chemo since secondary to patient stating she could not tolerate the treatments therefore she missed many of her treatments patient states several of the treatments I was in the hospital and I couldn't get the treatments. Patient states the chemotherapy "is almost intolerable. Patient states she's anxious to have her left breast removed. Patient was diagnosed with left breast cancer in July 2016 Past Medical History Past Medical History: Cancer, GERD/Reflux, GI Bleed, Hypertension, Liver Disease Additional Past Medical History / Comment(s): Hepatitis C, Vertigo; "benign abd mass", states has had esophageal banding, lt breast cancer had chemo last on 09-12, lt ear hearing loss. multiple GI bleeds History of Any Multi-Drug Resistant Organisms: None Reported Past Surgical History: Adenoidectomy, Tonsillectomy Additional Past Surgical History / Comment(s): [facility], "esophageal [facility]" Past Anesthesia/Blood Transfusion Reactions: No Reported Reaction Additional Past Anesthesia/Blood Transfusion Reaction / Comment(s): blood transfusions- no reaction Smoking Status: Current every day smoker - Past Family History Mother Family Medical History: Cancer Additional Family Medical History / Comment(s): of lung ca Father Family Medical History: Myocardial Infarction ([place]) Additional Family Medical History / Comment(s): from 2nd heart attack Medications and Allergies Home Medications Medication Instructions Recorded Confirmed Type Hydrocodone/Acetaminophen [[place] 1 tab PO Q4H PRN 08/26/16 11/11/16 History 5-325] Prochlorperazine [Compazine] 10 mg PO Q6H PRN 08/26/16 11/11/16 History Allergies Allergy/AdvReac Type Severity Reaction Status Date / Time No Known Allergies Allergy Verified 11/11/16 14:00 Physical Exam Vitals: Vital Signs Temp Pulse Pulse Resp BP BP Pulse Ox 11/12/16 08:00 18 11/12/16 07:00 97.9 F 78 18 102/74 96 11/11/16 22:03 98.5 F 91 16 129/56 93 L 11/11/16 17:48 98.2 F 80 20 125/80 99 Intake and Output 11/12/16 11/12/16 11/12/16 06:59 14:59 22:59 Intake Total 590 50 Balance 590 50 Intake: Intake, IV Titration 50 Amount cefTRIAXone 1,000 mg In 50 Sodium Chloride 0.9% 50 ml @ 100 mls/hr IVPB ONCE STA Rx#:[id number] Oral 590 Other: Voiding Method Toilet Toilet Toilet # Voids 2 GENERAL APPEARANCE: 51-year-old female looking older than stated age patient is alert, oriented, in no acute distress. VITAL SIGNS: Reviewed HEENT: Head is normocephalic and atraumatic. Pupils are equal and reactive. The nares are patent. Oropharynx is clear without lesions. NECK: Supple without lymphadenopathy. Traches midline. HEART: S1, S2. Regular rate and rhythm. No murmur noted LUNGS: No crackles or wheezes are heard. Decreased at the bases ABDOMEN: Soft, nontender, distended with ascites with good bowel sounds. No peritoneal signs. No palpable organomegaly or masses. EXTREMITIES: Normal skin color and turgor. Nonpitting edema to the bilateral lower extremities Radial pedal pulses are 2/4 bilaterally. NEUROLOGICAL: No focal deficits. Strength and sensation are grossly intact. Results CBC & Chem 7: 11/17/16 08:41 11/17/16 08:41 Labs: Abnormal Lab Results - Last 24 Hours (Table) 11/12/16 11/12/16 Range/Units 07:22 07:22 WBC 0.9 L* (3.8-10.6) k/uL RBC 2.30 L (3.80-5.40) m/uL Hgb 8.8 L D (11.4-16.0) gm/dL Hct 26.8 L (34.0-46.0) % MCV 116.3 H D (80.0-100.0) fL MCH 38.3 H (25.0-35.0) pg RDW 16.4 H (11.5-15.5) % Plt Count 25 L* D (150-450) k/uL Calcium 7.5 L (8.4-10.2) mg/dL Total Bilirubin 1.7 H (0.2-1.3) mg/dL Total Protein 4.7 L (6.3-8.2) g/dL Albumin 2.0 L (3.5-5.0) g/dL Thrombosis Risk Factor Assmnt - Choose All That Apply Any of the Below Risk Factors Present?: Yes Each Factor Represents 1 point: Age 41-60 years, Obesity (BMI >25), Swollen legs (current) Other Risk Factors: Yes Each Risk Factor Represents 2 Points: Malignancy Other congenital or acquired thrombophilia - If yes, enter type in comment: No Thrombosis Risk Factor Assessment Total Risk Factor Score: 5 Thrombosis Risk Factor Assessment Level: High Risk Assessment and Plan Plan: Impression Present on admission nausea vomiting diarrhea Present on admission pancytopenia suspect related to liver disease recently new diagnosis of July 2016 left breast cancer on status post neoadjuvant chemotherapy last treatment September 12 Current every day smoker History of untreated hepatitis C cirrhosis of the liver with esophageal varices and portal hypertension Present on admission Ascites Prior history of pancytopenia due to liver disease and splenic sequestration Plan await recommendations by oncology service about whether chemotherapy is an option Check a prealbumin level 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 Nanci Canas nurse practitioner acting as scribe for signing physician.
--- NOTE | 2016-11-12 17:11 | P.CONS ---
History of Present Illness - Reason for Consult Consult date: 11/12/16 thrombocytopenia, breast cancer Requesting physician: Nanci Canas - Chief Complaint N,V,D - History of Present Illness Please refer to Dr. Nielson's Consult dated 10/20 as nothing in the pt malignancy history has changed, she has not been seen in the office, she has not had treatment for her breast cancer since September 12. It was discussed at that time that pt liver disease was contributing to intolerance to chemo and recommendation was to follow up to discuss possibly going to surgery as there was objective shrinkage of the palpable tumor in the breast-approx 5 cm-but she missed that appt. Pt presents with c/o N,V,D x 2 days, progressive, she was unable to tolerate oral intake, her pain is wide spread, aching. Denies fever, hematemesis, cough, chest pain, abd is severely distended which makes it difficult for her breathe, positive for orthopnea, she denies any acute changes in bowel or bladder habits , no black or bloody stool, she can ambulate independently. Review of Systems All systems: negative Constitutional: Reports as per HPI Past Medical History Past Medical History: Cancer, GERD/Reflux, GI Bleed, Hypertension, Liver Disease Additional Past Medical History / Comment(s): Hepatitis C, Vertigo; "benign abd mass", states has had esophageal banding, lt breast cancer had chemo last on 09-12, lt ear hearing loss. multiple GI bleeds History of Any Multi-Drug Resistant Organisms: None Reported Past Surgical History: Adenoidectomy, Tonsillectomy Additional Past Surgical History / Comment(s): [facility], "esophageal [facility]" Past Anesthesia/Blood Transfusion Reactions: No Reported Reaction Additional Past Anesthesia/Blood Transfusion Reaction / Comm: blood transfusions - no reaction Smoking Status: Current every day smoker - Past Family History Mother Family Medical History: Cancer Additional Family Medical History / Comment(s): of lung ca Father Family Medical History: Myocardial Infarction ([place]) Additional Family Medical History / Comment(s): from 2nd heart attack Medications and Allergies Home Medications Medication Instructions Recorded Confirmed Type Hydrocodone/Acetaminophen [[place] 1 tab PO Q4H PRN 08/26/16 11/11/16 History 5-325] Prochlorperazine [Compazine] 10 mg PO Q6H PRN 08/26/16 11/11/16 History Allergies Allergy/AdvReac Type Severity Reaction Status Date / Time No Known Allergies Allergy Verified 11/11/16 14:00 Physical Exam Vitals: Vital Signs Temp Pulse Pulse Resp BP BP Pulse Ox 11/12/16 15:00 98.2 F 76 18 117/56 98 11/12/16 08:00 18 11/12/16 07:00 97.9 F 78 18 102/74 96 11/11/16 22:03 98.5 F 91 16 129/56 93 L 11/11/16 17:48 98.2 F 80 20 125/80 99 Intake and Output 11/12/16 11/12/16 11/12/16 06:59 14:59 22:59 Intake Total 590 50 Balance 590 50 Intake: Intake, IV Titration 50 Amount cefTRIAXone 1,000 mg In 50 Sodium Chloride 0.9% 50 ml @ 100 mls/hr IVPB ONCE STA Rx#:[id number] Oral 590 Other: Voiding Method Toilet Toilet Toilet # Voids 2 - Constitutional General appearance: cooperative, mild distress - EENT Eyes: anicteric sclerae, normal appearance ENT: normal oropharynx - Neck Neck: no lymphadenopathy - Respiratory Respiratory: bilateral: CTA - Cardiovascular Heart sounds: normal: S1, S2 - Gastrointestinal dullness to percussion, liver boarder difficult to palpate General gastrointestinal: distended, normal bowel sounds, soft, tenderness Localized gastrointestinal: tender: diffuse - Integumentary Integumentary: pale - Neurologic Neurologic: CNII-XII intact - Musculoskeletal Musculoskeletal: generalized weakness - Psychiatric anxious, verbalizes being overwhelmed with "all that is going on" Psychiatric: A&O x's 3 Results CBC & Chem 7: 11/12/16 07:22 11/12/16 07:22 Labs: Abnormal Lab Results - Last 24 Hours (Table) 11/12/16 11/12/16 11/12/16 Range/Units 07:22 07:22 07:22 WBC 0.9 L* (3.8-10.6) k/uL RBC 2.30 L (3.80-5.40) m/uL Hgb 8.8 L D (11.4-16.0) gm/dL Hct 26.8 L (34.0-46.0) % MCV 116.3 H D (80.0-100.0) fL MCH 38.3 H (25.0-35.0) pg RDW 16.4 H (11.5-15.5) % Plt Count 25 L* D (150-450) k/uL Calcium 7.5 L (8.4-10.2) mg/dL Total Bilirubin 1.7 H (0.2-1.3) mg/dL Total Protein 4.7 L (6.3-8.2) g/dL Albumin 2.0 L (3.5-5.0) g/dL Prealbumin <3 L (18-36) mg/dL Assessment and Plan (1) Carcinoma of left breast Narrative/Plan: Pt had early stage breast cancer diagnosed in July of this year, it was triple negative and felt to be aggressive so plan was for neoadjuvant chemo. Pt had 3 cycles of chemotherapy which she did not tolerate hematologically or subjectively well. Pt has not had a treatment since September. When seen a few weeks ago it was recommended to the pt that she follow up with Dr. Puente and formulate a plan, either reduce dose of chemo or consider going to surgery as there was objective tumor response, pt did not follow up, rescheduled and was due in office today. Have asked Dr. Ruvalcaba to see pt for opinion as to wether pt should proceed with surgery now since she is having difficulties with treatment and keeping appointments (she has challenging social situation, case management/social work following). Re-imaging will likely need to be done but will await Surgical evaluation and case review with Dr. Puente. Status: Chronic (2) Pancytopenia Narrative/Plan: GCSF initiated, no PRBC or platelet transfusions necessary at this time. Pt pancytopenia is likely multi-factorial including liver disease, splenic sequestration as well as marrow damage from chemo. CBC daily. Status: Chronic
--- NOTE | 2016-11-12 19:01 | US ---
EXAMINATION TYPE: US abdomen limited DATE OF EXAM: 11/12/2016 EXAMINATION TYPE: US abdomen limited to assess for ascites COMPARISON: Limited abdominal ultrasound October 23, 2016. Abdominal x-ray from yesterday. CLINICAL HISTORY: Ascites. Bloating Ascites visualized Moderate to large amount of abdominal fluid or ascites is seen in bilateral upper and lower quadrants is confirmed. Amount of fluid is sufficient for ultrasound-guided paracentesis if desired. IMPRESSION: As above
--- NOTE | 2016-11-12 19:29 | HP ---
CHIEF COMPLAINT: Abdominal pain and distention. HISTORY OF PRESENT ILLNESS: This is another recent admission for this 51-year- old white female, she has a history of hepatitis C and CA of the breast. She came to the emergency room after she started to have more trouble with increased abdominal girth and ascites. She apparently has not been following up with oncology. She received some chemotherapy in the past and had some complications. REVIEW OF SYSTEMS: She denies any fever, chills, headaches, neurological problem, cough, hemoptysis, shortness of breath, palpitations, nausea and vomiting, hematemesis, melena, hematochezia, jaundice, hematuria, frequency, incontinence, etc. PAST MEDICAL HISTORY, FAMILY HISTORY, PERSONAL AND SOCIAL HISTORY: Reveal that she is not allergic to any medication. It is not clear what medications she has been on if any. PHYSICAL EXAMINATION: Blood pressure is 110/60 with a pulse of 110, respiratory rate 24. She is afebrile. In general, she appeared to be pale and chronically ill. Head, ears, eyes, nose, mouth and throat were normal and carotids were normal. Neck veins not distended. The chest demonstrated decreased breath sounds throughout. Cardiac exam demonstrated sinus rhythm with tachycardia. The abdomen is very distended and firm. Extremities 3 to 4+ edema. Neurological she is intact. IMPRESSION: 1. Ascites, etiology unknown. 2. Carcinoma of the breast. 3. Hepatitis C. PLAN: 1. Bed rest. 2. IV fluids. 3. Consult with oncology. LORETO
--- NOTE | 2016-11-12 19:32 | PN ---
DATE OF SERVICE: 11/12/16 CHIEF COMPLAINT: Ascites. HISTORY OF PRESENT ILLNESS: This lady is still feeling very uncomfortable with tight distention in the abdomen. She has had no vomiting. PHYSICAL EXAMINATION: She is pale. Chest demonstrates poor breath sounds in the bases. Sinus tachycardia. Abdomen is very protuberant with ascites. Extremities demonstrate 3 to 4+ edema. Neurologically intact. IMPRESSION: 1. Ascites. 2. Carcinoma of the breast. 3. History of hepatitis C. 4. Leukopenia. 5. Thrombocytopenia. PLAN: Consult oncology and gastroenterology. She will likely require paracentesis, but the risk will be high given her platelet situation and white count. MTDD
[2016-11-12] MEDS: FAMOTIDINE 20 MG TAB PO SCH (20:08)
[2016-11-13] MEDS: HYDROcodone/APAP 5-325MG 1 EACH TAB PO PRN ×5 (01:58→23:17)
[2016-11-13 08:00] LABS: ALT 27 U/L (9-52); AST 32 U/L (14-36); Alkaline Phosphatase 55 U/L (38-126); Anion Gap 4 mmol/L; Blood Urea Nitrogen 8 mg/dL (7-17); Calcium 7.7 mg/dL (8.4-10.2); Carbon Dioxide 28 mmol/L (22-30); Chloride 105 mmol/L (98-107); Glucose 84 mg/dL (74-99); Non-African American GFR(MDRD) >60 (>60 ml/min/1.73 sqM); Potassium 3.4 mmol/L (3.5-5.1); Sodium 137 mmol/L (137-145); Total Bilirubin 1.7 mg/dL (0.2-1.3); Total Protein 4.9 g/dL (6.3-8.2)
[2016-11-13 08:01] LABS: Anisocytosis Slight; CH 37.9; CHCM 32.3; HCT 28.7 % (34.0-46.0); HDW 3.42; HGB 9.2 gm/dL (11.4-16.0); Hypochromasia Slight; MCH 37.9 pg (25.0-35.0); MCV 118.6 fL (80.0-100.0); Macrocytosis Marked; Mean Platelet Volume 10.7; Poikilocytosis Slight; RBC 2.42 m/uL (3.80-5.40); RDW 16.5 % (11.5-15.5); WBC 3.2 k/uL (3.8-10.6); WBC (Perox) 3.22
[2016-11-13] MEDS: FAMOTIDINE 20 MG TAB PO SCH ×2 (08:47→20:48)
[2016-11-13] MEDS: FILGRASTIM-SNDZ 480 MCG/0.8 ML SYRINGE SQ SCH (11:01)
[2016-11-13 11:03] LABS: Add Differential Manual Differential
[2016-11-13 11:06] LABS: Nucleated Red Blood Cells 0 /100 WBC (0-0); Total Cells Counted 100
[2016-11-13 11:08] LABS: Manual Review Performed
--- NOTE | 2016-11-13 12:25 | P.PN ---
Subjective 51-year-old female being seen in the room. Ambulating with no difficulty. Patient states anxious to have surgery the left breast be removed. Patient has been seen by oncology hematology recommendations reviewed oncology indicate the patient did have 3 cycles of chemotherapy did not tolerate them subjectively or hematologically. Patient has not had treatment since September of this year. Additionally patient has not followed up in the outpatient setting. States is hard for her to follow-up because she has no transportation Hematology is recommending that there be reimaging on with the surgical eval possibly could proceed with addressing the cancer involving the left breast Objective - Vital Signs Vital signs: Vital Signs Temp 98.0 F 11/13/16 07:00 Pulse 77 11/13/16 07:00 Resp 18 11/13/16 07:00 BP 110/57 11/13/16 07:00 Pulse Ox 94 L 11/13/16 07:00 Intake & Output 11/12/16 11/13/16 11/13/16 18:59 06:59 18:59 Intake Total 50 Balance 50 Weight 99.79 kg Intake: Intake, IV Titration 50 Amount cefTRIAXone 1,000 mg In 50 Sodium Chloride 0.9% 50 ml @ 100 mls/hr IVPB [facility] Rx#:[id number] Other: Voiding Method Toilet Toilet Toilet # Voids 2 - Exam Physical exam 51-year-old female thin cachectic in appearance up ambulating in the room oriented 3 Lungs essentially clear adequate air movement on room air Heart S1-S2 audible and regular abdomen distended firm with ascites reports no nausea vomiting reports a decline in appetite Extremities decrease edema to the bilateral lower extremities noted - Labs CBC & Chem 7: 11/13/16 07:33 11/13/16 07:33 Labs: Abnormal Lab Results - Last 24 Hours (Table) 11/12/16 11/13/16 11/13/16 Range/Units 07:22 07:33 07:33 WBC 3.2 L (3.8-10.6) k/uL RBC 2.42 L (3.80-5.40) m/uL Hgb 9.2 L (11.4-16.0) gm/dL Hct 28.7 L (34.0-46.0) % MCV 118.6 H (80.0-100.0) fL MCH 37.9 H (25.0-35.0) pg RDW 16.5 H (11.5-15.5) % Plt Count 29 L* (150-450) k/uL Lymphocytes # (Manual) 0.03 L (1.0-4.8) k/uL Potassium 3.4 L (3.5-5.1) mmol/L Calcium 7.7 L (8.4-10.2) mg/dL Total Bilirubin 1.7 H (0.2-1.3) mg/dL Total Protein 4.9 L (6.3-8.2) g/dL Albumin 2.0 L (3.5-5.0) g/dL Prealbumin <3 L (18-36) mg/dL Assessment and Plan Plan: Impression Present on admission nausea vomiting diarrhea Present on admission pancytopenia suspect related to liver disease recently new diagnosis of July 2016 left breast cancer on status post neoadjuvant chemotherapy last treatment September 12 Current every day smoker History of untreated hepatitis C cirrhosis of the liver with esophageal varices and portal hypertension Present on admission Ascites Prior history of pancytopenia due to liver disease and splenic sequestration Plan recommendations reviewed no further chemotherapy indicated patient did not tolerate consider going to surgery as there was objective tumor response patient had received 3 cycles of chemo treatment Nutritional consult for nutritional assessment Repeat labs in the morning Consult GI service possible paracentesis Further surgical recommendations pending The above impression and plan of care have been discussed and directed by signing physician. Nanci Canas nurse practitioner acting as scribe for signing physician.
[2016-11-13] MEDS: POTASSIUM CHLORIDE 10 MEQ, LIDOCAINE 2% INJ 10 MG in SODIUM CHLORIDE 0.9% 100 ML IVPB SCH ×4 (15:27→19:18)
--- NOTE | 2016-11-13 16:45 | P.PN ---
Subjective 51-year-old female being seen this morning. Patient is admitted to the services of the attending Dr. Estrada. Patient's chief complaints this morning tired out. Patient states is anxious to have surgery involving the left breast was diagnosed with breast cancer could not tolerate chemotherapy reportedly had 3 cycles. He should has been seen by surgical service recommendations noted and appreciated. Objective - Vital Signs Vital signs: Vital Signs Temp 98.1 F 11/13/16 15:00 Pulse 84 11/13/16 15:00 Resp 18 11/13/16 15:00 BP 125/58 11/13/16 15:00 Pulse Ox 96 11/13/16 15:00 Intake & Output 11/12/16 11/13/16 11/13/16 18:59 06:59 18:59 Intake Total 50 Balance 50 Weight 99.79 kg Intake: Intake, IV Titration 50 Amount cefTRIAXone 1,000 mg In 50 Sodium Chloride 0.9% 50 ml @ 100 mls/hr IVPB ONCE [facility] Rx#:[id number] Other: Voiding Method Toilet Toilet Toilet # Voids 2 1 - Exam Physical exam 51-year-old female thin cachectic in appearance up ambulating in the room oriented 3 Lungs essentially clear adequate air movement on room air Heart S1-S2 audible and regular abdomen distended firm with ascites reports no nausea vomiting reports a decline in appetite Extremities decrease edema to the bilateral lower extremities noted - Labs CBC & Chem 7: 11/13/16 07:33 11/13/16 07:33 Labs: Abnormal Lab Results - Last 24 Hours (Table) 11/12/16 11/13/16 11/13/16 Range/Units 07:22 07:33 07:33 WBC 3.2 L (3.8-10.6) k/uL RBC 2.42 L (3.80-5.40) m/uL Hgb 9.2 L (11.4-16.0) gm/dL Hct 28.7 L (34.0-46.0) % MCV 118.6 H (80.0-100.0) fL MCH 37.9 H (25.0-35.0) pg RDW 16.5 H (11.5-15.5) % Plt Count 29 L* (150-450) k/uL Lymphocytes # (Manual) 0.03 L (1.0-4.8) k/uL Potassium 3.4 L (3.5-5.1) mmol/L Calcium 7.7 L (8.4-10.2) mg/dL Total Bilirubin 1.7 H (0.2-1.3) mg/dL Total Protein 4.9 L (6.3-8.2) g/dL Albumin 2.0 L (3.5-5.0) g/dL Prealbumin <3 L (18-36) mg/dL Assessment and Plan Plan: Impression Present on admission nausea vomiting diarrhea Present on admission pancytopenia suspect related to liver disease recently new diagnosis of July 2016 left breast cancer on status post neoadjuvant chemotherapy last treatment September 12 Current every day smoker History of untreated hepatitis C cirrhosis of the liver with esophageal varices and portal hypertension Present on admission Ascites Prior history of pancytopenia due to liver disease and splenic sequestration Plan recommendations reviewed no further chemotherapy indicated patient did not tolerate consider going to surgery as there was objective tumor response patient had received 3 cycles of chemo treatment Nutritional consult for nutritional assessment Repeat labs in the morning Consult GI service possible paracentesis Further surgical recommendations pending Recommendations by surgical service reviewed surgical service will discuss with hematology oncology recommendations The above impression and plan of care have been discussed and directed by signing physician. Nanci Canas nurse practitioner acting as scribe for signing physician.
--- NOTE | 2016-11-13 21:18 | P.CONS ---
History of Present Illness - Reason for Consult Consult date: 11/13/16 - Chief Complaint Ascites - History of Present Illness The patient is a 51-year-old female with a history of hepatitis C, cirrhosis, portal hypertension, esophageal varices, GI variceal bleeds, anxiety, recent diagnosis of left breast carcinoma July 2016 status post neoadjuvant chemotherapy. Admitted with progressive weakness abdominal distention lower leg swelling nausea and vomiting. Patient has missed a few of her chemotherapy session secondary to feeling so weakness and lack of transportation. Reports poor nutrition over the last few months with no desire to eat. Has received total of three cycles. We are asked to see her regarding ascites. Review of Systems Constitutional: Denies fever, chills, sweats, weight gain, or loss. HEENT: Negative for migraines, blurred vision or loss, earaches, drainage, tinnitus, oral mucosal lesions, dysphagia, or odynophagia. CARDIAC: Negative for chest pain, arrhythmias, or palpitation. RESPIRATORY: Negative for shortness of breath, hemoptysis, cough, or sputum production. GI: See HPI for pertinent findings. : Negative for hematuria, urgency, frequency, polyuria, or dysuria. GYNc: Left breast carcinoma. Negative vaginal discharge. MUSCULOSKELETAL: Negative for muscle aches, swelling, arthritis, and arthralgias. NEUROLOGIC: Negative for stroke or TIA. ENDOCRINE: Negative for thyroid problems. SKIN: Negative for rash or itching. PSYCHIATRIC: Negative history for depression. Anxiety. Past Medical History Past Medical History: Cancer, GERD/Reflux, GI Bleed, Hypertension, Liver Disease Additional Past Medical History / Comment(s): Hepatitis C, Vertigo; "benign abd mass", states has had esophageal banding, lt breast cancer had chemo last on 09-12, lt ear hearing loss. multiple GI bleeds History of Any Multi-Drug Resistant Organisms: None Reported Past Surgical History: Adenoidectomy, Tonsillectomy Additional Past Surgical History / Comment(s): EGD, rt chest mediport 08-06-16, "esophageal banding" Past Anesthesia/Blood Transfusion Reactions: No Reported Reaction Additional Past Anesthesia/Blood Transfusion Reaction / Comm: blood transfusions - no reaction Smoking Status: Current every day smoker - Past Family History Mother Family Medical History: Cancer Additional Family Medical History / Comment(s): of lung ca Father Family Medical History: Myocardial Infarction ([place]) Additional Family Medical History / Comment(s): from 2nd heart attack Medications and Allergies Home Medications Medication Instructions Recorded Confirmed Type Hydrocodone/Acetaminophen [Churdan 1 tab PO Q4H PRN 08/26/16 11/11/16 History 5-325] Prochlorperazine [Compazine] 10 mg PO Q6H PRN 08/26/16 11/11/16 History Allergies Allergy/AdvReac Type Severity Reaction Status Date / Time No Known Allergies Allergy Verified 11/11/16 14:00 Physical Exam Vitals: Vital Signs Temp Pulse Resp BP Pulse Ox 11/13/16 15:00 98.1 F 84 18 125/58 96 11/13/16 07:00 98.0 F 77 18 110/57 94 L 11/12/16 23:00 97.4 F L 85 16 115/66 96 Intake and Output 11/13/16 11/13/16 11/13/16 06:59 14:59 22:59 Other: Voiding Method Toilet Toilet # Voids 2 1 Weight 99.79 kg 97.5 kg Patient Weight 11/14/16 06:59 Weight 97.5 kg General appearance: The patient is alert, oriented, in no acute distress. HET: Head is normocephalic and atraumatic. Pupils are equal and reactive. Oropharynx is clear without lesions. Hair thin distribution. Neck: Supple without lymphadenopathy. Trachea midline. Heart: S1 S2. Regular rate and rhythm. Lungs: No crackles or wheezes are heard. Abdomen: Soft, distended with ascites with bowel sounds. No peritoneal signs. No palpable organomegaly or masses. Extremities: Positive for bilateral lower extremity edema. Neurological: No focal deficits. Strength and sensation are grossly intact. Results CBC & Chem 7: 11/15/16 06:43 11/15/16 06:43 Labs: Abnormal Lab Results - Last 24 Hours (Table) 11/13/16 11/13/16 Range/Units 07:33 07:33 WBC 3.2 L (3.8-10.6) k/uL RBC 2.42 L (3.80-5.40) m/uL Hgb 9.2 L (11.4-16.0) gm/dL Hct 28.7 L (34.0-46.0) % MCV 118.6 H (80.0-100.0) fL MCH 37.9 H (25.0-35.0) pg RDW 16.5 H (11.5-15.5) % Plt Count 29 L* (150-450) k/uL Lymphocytes # (Manual) 0.03 L (1.0-4.8) k/uL Potassium 3.4 L (3.5-5.1) mmol/L Calcium 7.7 L (8.4-10.2) mg/dL Total Bilirubin 1.7 H (0.2-1.3) mg/dL Total Protein 4.9 L (6.3-8.2) g/dL Albumin 2.0 L (3.5-5.0) g/dL Assessment and Plan Plan: Ascites likely related to chronic liver disease and poor nutritional status. With her very low platelet count, will hold off on paracentesis. May have to give platelets if paracentesis becomes required to pain/SOB or suspected infection. Will discuss with you and follow with interest.
[2016-11-14] MEDS: HYDROcodone/APAP 5-325MG 1 EACH TAB PO PRN ×4 (02:47→19:50)
[2016-11-14 07:56] LABS: Anisocytosis Slight; Basophils % (A) 0 %; CH 37.9; CHCM 31.9; Eosinophils % (A) 1 %; HCT 29.8 % (34.0-46.0); HDW 3.34; HGB 9.4 gm/dL (11.4-16.0); Hypochromasia Slight; Luc # (Auto) 0.13; Luc % (Auto) 4; Lymphocytes # (A) 0.3 k/uL (1.0-4.8); Lymphocytes % (A) 8 %; MCH 37.9 pg (25.0-35.0); MCHC 31.6 g/dL (31.0-37.0); MCV 119.9 fL (80.0-100.0); Macrocytosis Marked; Monocytes # (A) 0.3 k/uL (0-1.0); Monocytes % (A) 8 %; Neutrophils # (A) 2.9 k/uL (1.3-7.7); Neutrophils % (A) 80 %; RBC 2.48 m/uL (3.80-5.40); RDW 16.4 % (11.5-15.5); WBC 3.6 k/uL (3.8-10.6); WBC (Perox) 3.76
[2016-11-14 08:18] LABS: ALT 24 U/L (9-52); AST 28 U/L (14-36); Alkaline Phosphatase 67 U/L (38-126); Anion Gap 2 mmol/L; Blood Urea Nitrogen 10 mg/dL (7-17); Calcium 7.6 mg/dL (8.4-10.2); Carbon Dioxide 29 mmol/L (22-30); Chloride 106 mmol/L (98-107); Glucose 82 mg/dL (74-99); Magnesium 1.8 mg/dL (1.6-2.3); Non-African American GFR(MDRD) >60 (>60 ml/min/1.73 sqM); Potassium 3.7 mmol/L (3.5-5.1); Sodium 137 mmol/L (137-145); Total Bilirubin 1.5 mg/dL (0.2-1.3); Total Protein 4.9 g/dL (6.3-8.2)
[2016-11-14 08:36] LABS: Manual Review Performed
[2016-11-14] MEDS: FAMOTIDINE 20 MG TAB PO SCH ×2 (08:48→19:47)
[2016-11-14] MEDS: FILGRASTIM-SNDZ 480 MCG/0.8 ML SYRINGE SQ SCH (09:28)
--- NOTE | 2016-11-14 09:47 | PN ---
CHIEF COMPLAINT: Intractable ascites. HISTORY OF PRESENT ILLNESS: This lady is about the same or a little bit worse. She has significant ascites and it is causing her quite a bit of difficulty. She is being evaluated by GI and Oncology. PHYSICAL EXAM: She remains slightly pale. Cardiac exam is normal. The abdomen is very distended with fluid. It is difficult to note if this is related to her cirrhosis or her neoplasm. The remainder of the exam is unremarkable. IMPRESSION: 1. Ascites. 2. Thrombocytopenia. 3. Leukopenia. 4. Cancer of the breast. PLAN: Await all the recommendations and guidelines from GI and Oncology. MTDD
--- NOTE | 2016-11-14 11:52 | P.PN ---
Subjective 51-year-old female being seen this morning up ambulating in the room states she feels like her abdomen is less distended reports no nausea no vomiting patient is stating that she is anxious to start chemotherapy again is willing to take it at a lower dose was requesting to discuss this with oncology patient states she's been feeling less weak and appetite continues to be poor. Has a history of hepatitis C, cirrhosis, portal hypertension, esophageal varices , GI variceal bleeds, anxiety, recent diagnosis of left breast carcinoma July 2016 status post neoadjuvant chemotherapy. Admitted with progressive weakness abdominal distention lower leg swelling nausea Objective - Vital Signs Vital signs: Vital Signs Temp 98.3 F 11/14/16 07:00 Pulse 74 11/14/16 08:00 Resp 16 11/14/16 08:00 BP 99/50 11/14/16 07:00 Pulse Ox 95 11/14/16 07:00 Intake & Output 11/13/16 11/14/16 11/14/16 18:59 06:59 18:59 Intake Total 820 Balance 820 Weight 97.5 kg 97.5 kg Intake: Intake, IV Titration 100 Amount Potassium Chloride 10 meq 100 Lidocaine 2% Inj 10 mg In Sodium Chloride 0.9% 100 ml @ 100 mls/hr IVPB Q1HR [facility] Rx#:[id number] Oral 720 Other: Voiding Method Toilet Toilet Toilet # Voids 1 2 - Exam Physical exam 51-year-old female sitting up appears in no acute distress Lungs diminished at the bases on room air no shortness of breath noted Heart S1-S2 audible regular Abdomen slight tenderness persistent ascites less distended no reports of nausea no vomiting no frequent stooling states has a poor appetite Extremities decrease edema to the bilateral lower extremities - Labs CBC & Chem 7: 11/14/16 07:27 11/14/16 07:27 Labs: Abnormal Lab Results - Last 24 Hours (Table) 11/14/16 11/14/16 Range/Units 07:27 07:27 WBC 3.6 L (3.8-10.6) k/uL RBC 2.48 L (3.80-5.40) m/uL Hgb 9.4 L (11.4-16.0) gm/dL Hct 29.8 L (34.0-46.0) % MCV 119.9 H (80.0-100.0) fL MCH 37.9 H (25.0-35.0) pg RDW 16.4 H (11.5-15.5) % Plt Count 31 L* (150-450) k/uL Lymphocytes # 0.3 L (1.0-4.8) k/uL Calcium 7.6 L (8.4-10.2) mg/dL Total Bilirubin 1.5 H (0.2-1.3) mg/dL Total Protein 4.9 L (6.3-8.2) g/dL Albumin 2.0 L (3.5-5.0) g/dL Assessment and Plan Plan: Impression Present on admission nausea vomiting diarrhea Present on admission pancytopenia suspect related to liver disease recently new diagnosis of July 2016 left breast cancer on status post neoadjuvant chemotherapy last treatment September 12 Current every day smoker History of untreated hepatitis C cirrhosis of the liver with esophageal varices and portal hypertension Present on admission Ascites likely due to chronic liver disease and poor nutritional status Prior history of pancytopenia due to liver disease and splenic sequestration Plan recommendations reviewed no further chemotherapy indicated patient did not tolerate consider going to surgery as there was objective tumor response patient had received 3 cycles of chemo treatment Nutritional consult for nutritional assessment Repeat labs in the morning GIs recommendations are to hold off on paracentesis due to low platelet count patient becomes symptomatic and needs a paracentesis platelets will need to be given Further surgical recommendations pending after discussion with oncology treatment plan whether patient will be restarted on chemotherapy The above impression and plan of care have been discussed and directed by signing physician. Nanci Canas nurse practitioner acting as scribe for signing physician.
--- NOTE | 2016-11-14 15:26 | P.PN ---
Subjective 51-year-old female being seen for Dr. Estrada. Currently in the room. Patient states she is anxious to talk to the cancer doctor she wants to restart chemotherapy for her breast cancer at a lower dose patient also states that she feels like her abdomen is less distended and is decrease edema to the lower extremities as note the surgeon's recommendations are to discuss with oncology treatment options before decision is made to address the left breast cancer. The platelets this morning 31 Objective - Vital Signs Vital signs: Vital Signs Temp 98.3 F 11/14/16 07:00 Pulse 74 11/14/16 08:00 Resp 16 11/14/16 08:00 BP 99/50 11/14/16 07:00 Pulse Ox 95 11/14/16 07:00 Intake & Output 11/13/16 11/14/16 11/14/16 18:59 06:59 18:59 Intake Total 820 1130 Balance 820 1130 Weight 97.5 kg 97.5 kg Intake: Intake, IV Titration 100 50 Amount Potassium Chloride 10 meq 100 Lidocaine 2% Inj 10 mg In Sodium Chloride 0.9% 100 ml @ 100 mls/hr IVPB Q1HR [facility] Rx#:[id number] cefTRIAXone 1,000 mg In 50 Sodium Chloride 0.9% 50 ml @ 100 mls/hr IVPB Q24HR [facility] Rx#:[id number] Oral 720 1080 Other: Voiding Method Toilet Toilet Toilet # Voids 1 2 - Exam Physical exam 51-year-old female sitting up appears in no acute distress Lungs diminished at the bases on room air no shortness of breath noted Heart S1-S2 audible regular Abdomen slight tenderness persistent ascites less distended no reports of nausea no vomiting no frequent stooling states has a poor appetite Extremities decrease edema to the bilateral lower extremities - Labs CBC & Chem 7: 11/14/16 07:27 11/14/16 07:27 Labs: Abnormal Lab Results - Last 24 Hours (Table) 11/14/16 11/14/16 Range/Units 07:27 07:27 WBC 3.6 L (3.8-10.6) k/uL RBC 2.48 L (3.80-5.40) m/uL Hgb 9.4 L (11.4-16.0) gm/dL Hct 29.8 L (34.0-46.0) % MCV 119.9 H (80.0-100.0) fL MCH 37.9 H (25.0-35.0) pg RDW 16.4 H (11.5-15.5) % Plt Count 31 L* (150-450) k/uL Lymphocytes # 0.3 L (1.0-4.8) k/uL Calcium 7.6 L (8.4-10.2) mg/dL Total Bilirubin 1.5 H (0.2-1.3) mg/dL Total Protein 4.9 L (6.3-8.2) g/dL Albumin 2.0 L (3.5-5.0) g/dL Assessment and Plan Plan: Impression Present on admission nausea vomiting diarrhea Present on admission pancytopenia suspect related to liver disease recently new diagnosis of July 2016 left breast cancer on status post neoadjuvant chemotherapy last treatment September 12 Current every day smoker History of untreated hepatitis C cirrhosis of the liver with esophageal varices and portal hypertension Present on admission Ascites likely due to chronic liver disease and poor nutritional status Prior history of pancytopenia due to liver disease and splenic sequestration Chronic debility will need a hospital bed due to increased weakness and increase pain due to the malignancy and ascites Plan We'll continue to monitor and await further recommendations by oncology Nutritional consult for nutritional assessment Repeat labs in the morning GIs recommendations are to hold off on paracentesis due to low platelet count patient becomes symptomatic and needs a paracentesis platelets will need to be given The above impression and plan of care have been discussed and directed by signing physician. Nanci Canas nurse practitioner acting as scribe for signing physician.
--- NOTE | 2016-11-14 17:06 | P.PN ---
Subjective Principal diagnosis: Vomiting, abdominal distention, abdominal pain Lori is seen today in follow-up. Patient continues to have distended and uncomfortable abdomen. She currently denies any bleeding, nausea is fairly well -controlled, appetite is poor, she is ambulating independently Objective - Vital Signs Vital signs: Vital Signs Temp 98.3 F 11/14/16 07:00 Pulse 74 11/14/16 08:00 Resp 16 11/14/16 08:00 BP 99/50 11/14/16 07:00 Pulse Ox 95 11/14/16 07:00 Intake & Output 11/13/16 11/14/16 11/14/16 18:59 06:59 18:59 Intake Total 820 1130 Balance 820 1130 Weight 97.5 kg 97.5 kg Intake: Intake, IV Titration 100 50 Amount Potassium Chloride 10 meq 100 Lidocaine 2% Inj 10 mg In Sodium Chloride 0.9% 100 ml @ 100 mls/hr IVPB Q1HR [facility] Rx#:[id number] cefTRIAXone 1,000 mg In 50 Sodium Chloride 0.9% 50 ml @ 100 mls/hr IVPB Q24HR [facility] Rx#:[id number] Oral 720 1080 Other: Voiding Method Toilet Toilet Toilet # Voids 1 2 - Constitutional General appearance: Present: cooperative, mild distress - EENT Eyes: Present: anicteric sclerae - Peripheral edema leg Peripheral Edema: bilateral: 2+ - Gastrointestinal General gastrointestinal: Present: distended - Neurologic Neurologic: Present: CNII-XII intact - Psychiatric Psychiatric: Present: A&O x's 3, appropriate affect, intact judgment & insight - Labs CBC & Chem 7: 11/14/16 07:27 11/14/16 07:27 Labs: Abnormal Lab Results - Last 24 Hours (Table) 11/14/16 11/14/16 Range/Units 07:27 07:27 WBC 3.6 L (3.8-10.6) k/uL RBC 2.48 L (3.80-5.40) m/uL Hgb 9.4 L (11.4-16.0) gm/dL Hct 29.8 L (34.0-46.0) % MCV 119.9 H (80.0-100.0) fL MCH 37.9 H (25.0-35.0) pg RDW 16.4 H (11.5-15.5) % Plt Count 31 L* (150-450) k/uL Lymphocytes # 0.3 L (1.0-4.8) k/uL Calcium 7.6 L (8.4-10.2) mg/dL Total Bilirubin 1.5 H (0.2-1.3) mg/dL Total Protein 4.9 L (6.3-8.2) g/dL Albumin 2.0 L (3.5-5.0) g/dL - Imaging and Cardiology US - abdomen: report reviewed Assessment and Plan (1) Carcinoma of left breast Narrative/Plan: Pt had early stage breast cancer diagnosed in July of this year, it was triple negative and felt to be aggressive so plan was for neoadjuvant chemo. Pt had 3 cycles of chemotherapy which she did not tolerate hematologically or subjectively well. Pt has not had a treatment since September. Dr. Puente had a long discussion with the patient today about the complicated situation that she has. In regards to the patient's breast cancer, patient is NOT a candidate for chemotherapy at this time due to severe liver dysfunction. Patient is likely not a candidate for breast surgery at this time, despite having objective response to chemotherapy, due to liver failure. Patient has been seen by Dr. Ruvalcaba and we will await her opinion regarding this. Patient currently is requiring gastroenterology intervention and treatment of liver disease. Recommendation at this time is for paracentesis. Patient has received GCS F and her white blood cell count is now within normal desired limits and she has adequate absolute neutrophil count for procedure. Platelets can be transfused just prior to or during paracentesis for thrombocytopenia. Patient's coags would need to be evaluated but, if necessary vitamin K could be administered for any coagulopathy from her liver disease. Status: Chronic (2) Pancytopenia Narrative/Plan: G-CSF administered, white blood cell count 3.6 today with an absolute neutrophil count of 2.9, Zarxio will be discontinued. Patient's hemoglobin is 9.4, adequate and not requiring transfusion at this time. Patient's platelet count is 31,000, no aspirin, NSAIDs or anticoagulation. If patient is going to be scheduled for paracentesis transfusion of platelets just prior to or during procedure is recommended. Status: Chronic Time with Patient: Greater than 30
[2016-11-14] MEDS: NICOTINE 14MG/24HR PATCH TRANSDERM SCH (17:21)
[2016-11-14] MEDS: ONDANSETRON 4 MG/2 ML VIAL IVP PRN (19:45)
[2016-11-15] MEDS: HYDROcodone/APAP 5-325MG 1 EACH TAB PO PRN ×5 (00:56→19:19)
[2016-11-15] MEDS: ONDANSETRON 4 MG/2 ML VIAL IVP PRN ×2 (04:15→19:16)
[2016-11-15 07:40] LABS: ALT 27 U/L (9-52); AST 28 U/L (14-36); Alkaline Phosphatase 78 U/L (38-126); Anion Gap 4 mmol/L; Blood Urea Nitrogen 10 mg/dL (7-17); Calcium 7.7 mg/dL (8.4-10.2); Carbon Dioxide 28 mmol/L (22-30); Chloride 106 mmol/L (98-107); Glucose 79 mg/dL (74-99); Non-African American GFR(MDRD) >60 (>60 ml/min/1.73 sqM); Potassium 3.7 mmol/L (3.5-5.1); Sodium 138 mmol/L (137-145); Total Bilirubin 1.6 mg/dL (0.2-1.3); Total Protein 4.9 g/dL (6.3-8.2)
[2016-11-15 07:47] LABS: Anisocytosis Slight; Aty Lym Flag Slight; CH 37.5; CHCM 31.7; HDW 3.35; HGB 9.9 gm/dL (11.4-16.0); Hypochromasia Slight; MCH 40.6 pg (25.0-35.0); MCV 119.3 fL (80.0-100.0); Macrocytosis Marked; Mean Platelet Volume 10.6; RBC 2.43 m/uL (3.80-5.40); RDW 16.3 % (11.5-15.5); WBC 2.9 k/uL (3.8-10.6); WBC (Perox) 2.93
[2016-11-15 08:13] LABS: Add Differential Manual Differential
[2016-11-15 08:15] LABS: Nucleated Red Blood Cells 0 /100 WBC (0-0); Polychromasia Present; Total Cells Counted 100
[2016-11-15] MEDS: FAMOTIDINE 20 MG TAB PO SCH ×2 (09:33→20:25)
[2016-11-15] MEDS: NICOTINE 14MG/24HR PATCH TRANSDERM SCH (09:34)
--- NOTE | 2016-11-15 10:31 | PN ---
CHIEF COMPLAINT: Pancytopenia and CA of the breast with hepatitis C. HISTORY OF PRESENT ILLNESS: This lady is about the same. She still has the same degree of ascites. She is somewhat uncomfortable. She awaits recommendations from Oncology. PHYSICAL EXAM: Breath sounds are diminished at the bases. Cardiac exam is normal. She has massive ascites without any palpable liver enlargement but there is a great deal of ascites. IMPRESSION: 1. Carcinoma of the breast. 2. Hepatitis C. 3. Ascites. PLAN: Await for further recommendations from Oncology. MTDD
[2016-11-15] MEDS: FILGRASTIM-SNDZ 480 MCG/0.8 ML SYRINGE SQ SCH (10:34)
--- NOTE | 2016-11-15 17:01 | P.PN ---
Subjective The patient is a 51-year-old female with a history of hepatitis C, cirrhosis, portal hypertension, esophageal varices, GI variceal bleeds, anxiety, recent diagnosis of left breast carcinoma July 2016 status post neoadjuvant chemotherapy. Admitted with progressive weakness abdominal distention lower leg swelling nausea and vomiting. Patient has missed a few of her chemotherapy session secondary to feeling so weakness and lack of transportation. Reports poor nutrition over the last few months with no desire to eat. Has received total of three cycles. We were asked to see her regarding ascites. The patient continues to have discomfort in her abdomen and reports abdominal expansion. She also has swelling in her lower extremities. I discussed with Dr. Duckworth yesterday the options in light of her very low platelet counts. The plan was to keep on no added salt diet and initiate diuretic regimen therapy over the weekend and consider early next week ultrasound guided paracentesis by the radiologist despite her low platelet counts, unless the radiologist prefers to give 1 unit of single donor platelets around the time of the procedure. Objective - Vital Signs Vital signs: Vital Signs Temp 98 F 11/15/16 15:00 Pulse 75 11/15/16 15:00 Resp 16 11/15/16 15:00 BP 105/53 11/15/16 15:00 Pulse Ox 94 L 11/15/16 15:00 Intake & Output 11/14/16 11/15/16 11/15/16 18:59 06:59 18:59 Intake Total 1130 50 Balance 1130 50 Weight 97.5 kg 97.5 kg Intake: IV 50 cefTRIAXone 1,000 mg In 50 Sodium Chloride 0.9% 50 ml @ 100 mls/hr IVPB Q24HR [facility] Rx#:[id number] Intake, IV Titration 50 Amount cefTRIAXone 1,000 mg In 50 Sodium Chloride 0.9% 50 ml @ 100 mls/hr IVPB Q24HR [facility] Rx#:[id number] Oral 1080 Other: Voiding Method Toilet Toilet Toilet # Voids 1 2 - Exam General appearance: The patient is alert, oriented, in no acute distress. HET: Head is normocephalic and atraumatic. Pupils are equal and reactive. Oropharynx is clear without lesions. Hair thin distribution. Neck: Supple without lymphadenopathy. Trachea midline. Heart: S1 S2. Regular rate and rhythm. Lungs: No crackles or wheezes are heard. Abdomen: Soft, distended with ascites with bowel sounds. No peritoneal signs. No palpable organomegaly or masses. Extremities: Positive for bilateral lower extremity edema. Neurological: No focal deficits. Strength and sensation are grossly intact. - Labs CBC & Chem 7: 11/15/16 06:43 11/15/16 06:43 Labs: Abnormal Lab Results - Last 24 Hours (Table) 11/15/16 11/15/16 Range/Units 06:43 06:43 WBC 2.9 L (3.8-10.6) k/uL RBC 2.43 L (3.80-5.40) m/uL Hgb 9.9 L (11.4-16.0) gm/dL Hct 29.0 L (34.0-46.0) % MCV 119.3 H (80.0-100.0) fL MCH 40.6 H (25.0-35.0) pg RDW 16.3 H (11.5-15.5) % Plt Count 26 L* (150-450) k/uL Lymphocytes # (Manual) 0.32 L (1.0-4.8) k/uL Calcium 7.7 L (8.4-10.2) mg/dL Total Bilirubin 1.6 H (0.2-1.3) mg/dL Total Protein 4.9 L (6.3-8.2) g/dL Albumin 2.0 L (3.5-5.0) g/dL Assessment and Plan Plan: Continue no added salt diet. Start diuretics with Aldactone and Lasix and adjust based on her response. Consideration for paracentesis Thursday.
--- NOTE | 2016-11-15 19:17 | PN ---
DATE OF SERVICE: 11/15/2016 CHIEF COMPLAINT: Pancytopenia. HISTORY OF PRESENT ILLNESS: This lady is unchanged. She is anxious to be discharged but her platelet count is still only around 26,000. She is having no bleeding. PHYSICAL EXAM: She remains pale. CHEST: Clear. CARDIAC: Normal. ABDOMEN: Soft and protuberant with her ascites. IMPRESSION: 1. Pancytopenia. 2. Carcinoma of the breast. 3. Hepatitis C. 4. Cirrhosis. PLAN: Discharge will have to be approved by GI and oncology given her poor numbers. MTDD
[2016-11-16] MEDS: HYDROcodone/APAP 5-325MG 1 EACH TAB PO PRN ×4 (02:19→20:44)
[2016-11-16 07:52] LABS: ALT 26 U/L (9-52); AST 32 U/L (14-36); Alkaline Phosphatase 73 U/L (38-126); Anion Gap 3 mmol/L; Blood Urea Nitrogen 11 mg/dL (7-17); Calcium 7.7 mg/dL (8.4-10.2); Carbon Dioxide 26 mmol/L (22-30); Chloride 109 mmol/L (98-107); Glucose 80 mg/dL (74-99); Non-African American GFR(MDRD) >60 (>60 ml/min/1.73 sqM); Sodium 138 mmol/L (137-145); Total Bilirubin 1.3 mg/dL (0.2-1.3); Total Protein 4.9 g/dL (6.3-8.2)
[2016-11-16 08:02] LABS: Potassium 4.1 mmol/L (3.5-5.1)
[2016-11-16] MEDS: NICOTINE 14MG/24HR PATCH TRANSDERM SCH (09:16)
[2016-11-16] MEDS: FAMOTIDINE 20 MG TAB PO SCH ×2 (09:16→20:44)
[2016-11-16] MEDS: FILGRASTIM-SNDZ 480 MCG/0.8 ML SYRINGE SQ SCH (09:47)
[2016-11-16] MEDS: ONDANSETRON 4 MG/2 ML VIAL IVP PRN (16:00)
[2016-11-17] MEDS: HYDROcodone/APAP 5-325MG 1 EACH TAB PO PRN ×5 (01:44→20:07)
[2016-11-17] MEDS: ONDANSETRON 4 MG/2 ML VIAL IVP PRN (01:45)
[2016-11-17] MEDS: FAMOTIDINE 20 MG TAB PO SCH ×2 (08:36→20:07)
[2016-11-17] MEDS: NICOTINE 14MG/24HR PATCH TRANSDERM SCH (08:36)
[2016-11-17] MEDS: SPIRONOLACTONE 25 MG TAB PO SCH (08:36)
[2016-11-17] MEDS: FUROSEMIDE 40 MG TAB PO SCH (08:36)
[2016-11-17 08:51] LABS: Anisocytosis Slight; CH 37.2; CHCM 31.3; HCT 36.2 % (34.0-46.0); HDW 3.25; HGB 11.7 gm/dL (11.4-16.0); Hypochromasia Moderate; Immature Gran Flag Slight; MCH 38.8 pg (25.0-35.0); MCHC 32.3 g/dL (31.0-37.0); MCV 120.1 fL (80.0-100.0); Macrocytosis Marked; Mean Platelet Volume 11.2; RBC 3.02 m/uL (3.80-5.40); RDW 16.4 % (11.5-15.5); WBC 7.9 k/uL (3.8-10.6); WBC (Perox) 8.12
[2016-11-17 08:57] LABS: INR 1.4 (<1.2); Prothrombin Time 13.3 sec (9.0-12.0)
[2016-11-17 09:04] LABS: ALT 27 U/L (9-52); AST 34 U/L (14-36); Alkaline Phosphatase 103 U/L (38-126); Anion Gap 6 mmol/L; Blood Urea Nitrogen 10 mg/dL (7-17); Calcium 8.1 mg/dL (8.4-10.2); Carbon Dioxide 29 mmol/L (22-30); Chloride 105 mmol/L (98-107); Glucose 84 mg/dL (74-99); Non-African American GFR(MDRD) >60 (>60 ml/min/1.73 sqM); Potassium 3.9 mmol/L (3.5-5.1); Sodium 140 mmol/L (137-145); Total Bilirubin 1.4 mg/dL (0.2-1.3); Total Protein 5.9 g/dL (6.3-8.2)
[2016-11-17] MEDS: FILGRASTIM-SNDZ 480 MCG/0.8 ML SYRINGE SQ SCH (09:23)
[2016-11-17 09:24] LABS: Add Differential Manual Differential
[2016-11-17 09:27] LABS: Metamyelocytes % 1 %; Myelocytes % 1 %; Nucleated Red Blood Cells 0 /100 WBC (0-0); Total Cells Counted 200
--- NOTE | 2016-11-17 11:57 | P.PN ---
Subjective 51-year-old female being seen on rounds this morning is scheduled for a paracentesis by interventional radiology this morning ascites persists. There is decrease edema to the bilateral lower extremities. Did review recommendations by GI and hematology oncology service. Patients being followed by Dr. Ruvalcaba surgical service for the left breast cancer. Did reinforce to the patient there will be no surgical intervention at this hospitalization as patient is not a candidate at this time due to patient's objective response to chemotherapy due to liver failure Objective - Vital Signs Vital signs: Vital Signs Temp 98.1 F 11/17/16 07:00 Pulse 73 11/17/16 07:00 Resp 18 11/17/16 07:00 BP 103/53 11/17/16 07:00 Pulse Ox 96 11/17/16 07:00 Intake & Output 11/16/16 11/17/16 11/17/16 18:59 06:59 18:59 Intake Total 50 300 Balance 50 300 Weight 98 kg Intake: IV 50 cefTRIAXone 1,000 mg In 50 Sodium Chloride 0.9% 50 ml @ 100 mls/hr IVPB Q24HR [facility] Rx#:[id number] Oral 300 Other: Voiding Method Toilet # Voids 1 - Exam GENERAL APPEARANCE: Thin cachectic looking older than stated age patient is alert, oriented, in no acute distress. VITAL SIGNS: Reviewed HEENT: Head is normocephalic and atraumatic. Pupils are equal and reactive. The nares are patent. Oropharynx is clear without lesions. NECK: Supple without lymphadenopathy. Traches midline. HEART: S1, S2. Regular rate and rhythm. Denies chest pain LUNGS: No crackles or wheezes are heard. Diminished at the bases ABDOMEN: Firm ascites present distended slight tenderness with good bowel sounds. No peritoneal signs. No palpable organomegaly or masses. EXTREMITIES: Normal skin color and turgor. No cyanosis, rash, ulceration, clubbing decrease edema to the bilateral lower extremities. Radial pedal pulses are 2/4 bilaterally. NEUROLOGICAL: No focal deficits. Strength and sensation are grossly intact. - Labs CBC & Chem 7: 11/17/16 08:41 11/17/16 08:41 Labs: Abnormal Lab Results - Last 24 Hours (Table) 11/17/16 11/17/16 11/17/16 Range/Units 08:41 08:41 08:41 RBC 3.02 L (3.80-5.40) m/uL MCV 120.1 H (80.0-100.0) fL MCH 38.8 H (25.0-35.0) pg RDW 16.4 H (11.5-15.5) % Plt Count 42 L* D (150-450) k/uL Lymphocytes # (Manual) 0.47 L (1.0-4.8) k/uL PT 13.3 H (9.0-12.0) sec INR 1.4 H (<1.2) Calcium 8.1 L (8.4-10.2) mg/dL Total Bilirubin 1.4 H (0.2-1.3) mg/dL Total Protein 5.9 L (6.3-8.2) g/dL Albumin 2.5 L (3.5-5.0) g/dL Assessment and Plan Plan: Impression Present on admission nausea vomiting diarrhea Present on admission pancytopenia suspect related to liver disease recently new diagnosis of July 2016 left breast cancer on status post neoadjuvant chemotherapy last treatment September 12 Current every day smoker History of untreated hepatitis C cirrhosis of the liver with esophageal varices and portal hypertension Present on admission Ascites likely due to chronic liver disease and poor nutritional status Prior history of pancytopenia due to liver disease and splenic sequestration Chronic debility will need a hospital bed due to increased weakness and increase pain due to the malignancy and ascites Plan Patient is not felt to be a candidate for a surgical intervention involving the left breast cancer at this time due to patient's liver failure. Interventional radiology to do a paracentesis today Patient will be followed in the outpatient setting with Dr. Peg Ruvalcaba will discuss with Dr. Puente treatment for the left breast cancer Nutritional consult for nutritional assessment Repeat labs in the morning The above impression and plan of care have been discussed and directed by signing physician. Nanci Canas nurse practitioner acting as scribe for signing physician.
[2016-11-17 14:27] VITALS: BMI 31.8
--- NOTE | 2016-11-17 16:37 | US ---
EXAMINATION TYPE: US paracentesis abd w/image DATE OF EXAM: 11/17/2016 COMPARISON: NONE HISTORY: Ascites. PROCEDURE: Maximal barrier technique was utilized. The skin overlying a suitable pocket of fluid was localized with ultrasound and the overlying skin was prepped and draped. Ultrasound was utilized with sterile technique. Lidocaine was used for local anesthesia and a skin adela made with a scalpel. Catheter was advanced under direct ultrasound guidance into a suitable pocket of fluid and approximately 9 liters of serous fluid were removed. Catheter was withdrawn and hemostasis achieved. There is no immediate complication; the patient is discharged in stable condition. IMPRESSION: STATUS POST ULTRASOUND GUIDED PARACENTESIS FOR PALLIATION OF ASCITES. THIS PROCEDURE WA S PERFORMED BY THE UNDERSIGNED.
--- NOTE | 2016-11-17 20:12 | PN ---
DATE OF SERVICE: 11/16/16 CHIEF COMPLAINT: Pancytopenia, breast CA and ascites. HISTORY OF PRESENT ILLNESS: This lady seems is going down tomorrow for a paracentesis about which she is happy. PHYSICAL EXAMINATION: Chest is clear. Cardiac exam is normal. Abdomen is distended with ascites. IMPRESSION: 1. CA of the breast. 2. Pancytopenia. 3. Ascites. PLAN: GI will be copying the abdomen tomorrow. [facility]
--- NOTE | 2016-11-17 20:34 | PN ---
DATE OF SERVICE: 11/17/16 CHIEF COMPLAINT: Cirrhosis and ascites as well as CA of the breast. HISTORY OF PRESENT ILLNESS: This lady is doing fairly well and expects to go for paracentesis today. PHYSICAL EXAMINATION: Color is good and chest is clear. Cardiac exam is normal. Abdomen protuberant. IMPRESSION: 1. Ascites. 2. Hepatitis C. 3. CA of the breast. PLAN: Paracentesis today. [facility]OR[facility]
[2016-11-17 21:36] LABS: RBC, Body Fluid 37 /uL
[2016-11-18] MEDS: HYDROcodone/APAP 5-325MG 1 EACH TAB PO PRN ×2 (00:06→09:33)
[2016-11-18] MEDS: FUROSEMIDE 40 MG TAB PO SCH (09:27)
[2016-11-18] MEDS: FAMOTIDINE 20 MG TAB PO SCH (09:27)
[2016-11-18] MEDS: SPIRONOLACTONE 25 MG TAB PO SCH (09:27)
[2016-11-18] MEDS: NICOTINE 14MG/24HR PATCH TRANSDERM SCH (09:27)
[2016-11-18] MEDS: FILGRASTIM-SNDZ 480 MCG/0.8 ML SYRINGE SQ SCH (10:36)
[2016-11-18 11:30] VITALS: PULSE 75
[2016-11-18] MEDS: ONDANSETRON 4 MG/2 ML VIAL IVP PRN (13:49)
[2016-11-18 15:13] VITALS: BP 99/68; RESP 20; TEMP 98.4
--- NOTE | 2016-11-19 22:37 | DS ---
CHIEF COMPLAINT: Ascites, electrolyte imbalance, vomiting and pancytopenia. HISTORY OF PRESENT ILLNESS AND PHYSICAL EXAM: The details of this lady's history and physical can be found in the initial workup. LABORATORY STUDIES: While she was in the hospital she had laboratory studies, details of which can be found in the laboratory section of her chart. COURSE IN THE HOSPITAL: After admission she was placed on bedrest. It was thought that she may require paracentesis. However, she had severely depressed megakaryocyte, leukocyte and red cell series. The paracentesis was put off. Finally, her platelets anthony and GI proceeded with paracentesis, removing about 8 or 9 liters. She was stable after that and it was felt that she could go home. She will follow up with Oncology and see us in the office in several days. FINAL DIAGNOSES: 1. Intractable ascites. 2. Hepatitis C. 3. Carcinoma of the breast with metastases. OPERATION: Paracentesis. CONSULTATIONS: Oncology and ( ). She is improved. LORETO
--- NOTE | 2016-11-20 07:13 | DS ---
DISCHARGE NOTE FOR THE . CHIEF COMPLAINT: Ascites, electrolyte imbalance, vomiting and pancytopenia. HISTORY OF PRESENT ILLNESS AND PHYSICAL EXAM: Details of this lady's history and physical can be found in the initial workup. LABORATORY STUDIES: While she was in the hospital she had laboratory studies, details of which could be found in the laboratory section of her chart. COURSE IN THE HOSPITAL: After admission she was placed on bed rest and it was thought that she may require paracentesis. However, she had severely depressed megakaryocyte, leukocyte and red cell series. The paracentesis was put off. Finally, her platelets anthony and GI proceeded with paracentesis removing about 8 or 9 L. She was stable after that and it was felt that she could go home and she will follow up with Oncology and see us in the office in several days. FINAL DIAGNOSES: 1. Intractable ascites. 2. Hepatitis C. 3. Cancer of the breast with metastases. OPERATIONS: Paracentesis. CONSULTATIONS: Oncology and Gastroenterology. She is improved. LORETO
== END 2016-11-18 18:15 | disposition home or self-care (01) | DRG 441 ==
LOC: EC 13:03 → 5ONC 16:23
PROVIDERS: ADMIT Family Medicine; ATTEND Family Medicine
PROC: 0W9G3ZZ Drainage of Peritoneal Cavity, Percutaneous Approach (ICD-10-PCS; principal; 2016-11-17)
DX: K72.90 Hepatic failure, unspecified without coma (principal); D61.810 Antineoplastic chemotherapy induced pancytopenia; R18.8 Other ascites; C79.9 Secondary malignant neoplasm of unspecified site; I85.10 Secondary esophageal varices without bleeding; K76.6 Portal hypertension; K74.69 Other cirrhosis of liver; C50.912 Malignant neoplasm of unspecified site of left female breast; B18.2 Chronic viral hepatitis C; F17.210 Nicotine dependence, cigarettes, uncomplicated; H91.92 Unspecified hearing loss, left ear; I10 Essential (primary) hypertension; K21.9 Gastro-esophageal reflux disease without esophagitis; T45.1X5A Adverse effect of antineoplastic and immunosuppressive drugs, initial encounter; Z80.1 Family history of malignant neoplasm of trachea, bronchus and lung; Z82.49 Family history of ischemic heart disease and other diseases of the circulatory system
CPT/HCPCS: 36415; 49083; 74000; 76705; 80053; 81001; 82140; 83605; 83690; 83735; 84134; 85025; 85610; 85730; 86850; 86900; 86901; 87070; 87075; 87205; 87324; 88108; 88305; 88341; 88342; 89050; 96374; 96375; 99285

== ENCOUNTER 2016-12-15 05:14 | Inpatient (IN) | payer MEDICARE, OTHER ==
--- NOTE | 2016-12-15 06:20 | ED ---
General Adult HPI - General Source: patient, RN notes reviewed Mode of arrival: ambulatory Limitations: no limitations <Nir Garcia - Last Filed: 12/15/16 06:46> <Francisco Mata - Last Filed: 12/15/16 09:08> - General Chief complaint: Abdominal Pain Stated complaint: fluid in stomach Time Seen by Provider: 12/15/16 06:02 - History of Present Illness Initial comments: Patient is a pleasant 51-year-old female presenting to the emergency department with abdominal distention. Patient states she had her abdomen drained a few weeks ago and feels she may need it drained again. Patient states it is an uncomfortable sensation. No fatigue or dyspnea. Patient does feel dry however this is chronic for her. Patient states she feels somewhat anxious regarding her symptoms. Patient has a known history of liver cirrhosis. Patient also history of breast cancer and has had difficulty with chemotherapy recently. ( Nir Garcia) - Related Data Home Medications Medication Instructions Recorded Confirmed Hydrocodone/Acetaminophen [Dawson 1 tab PO Q4H PRN 08/26/16 12/15/16 5-325] Allergies Allergy/AdvReac Type Severity Reaction Status Date / Time No Known Allergies Allergy Verified 12/15/16 07:50 Review of Systems ROS Other: All systems not noted in ROS Statement are negative. Constitutional: Denies: fever Eyes: Denies: eye pain ENT: Denies: ear pain Respiratory: Denies: cough, dyspnea Cardiovascular: Denies: chest pain Endocrine: Denies: fatigue Gastrointestinal: Reports: abdominal pain (Distention) Genitourinary: Denies: dysuria Musculoskeletal: Denies: back pain Skin: Denies: rash Neurological: Denies: weakness <Nir Garcia - Last Filed: 12/15/16 06:46> ROS Other: All systems not noted in ROS Statement are negative. <Francisco Mata - Last Filed: 12/15/16 09:08> ROS Statement: Those systems with pertinent positive or pertinent negative responses have been documented in the HPI. Past Medical History Past Medical History: Cancer, GERD/Reflux, GI Bleed, Hypertension, Liver Disease Additional Past Medical History / Comment(s): Hepatitis C, Vertigo; "benign abd mass", states has had esophageal banding, lt breast cancer had chemo last on 09-12, lt ear hearing loss. multiple GI bleeds, History of Any Multi-Drug Resistant Organisms: None Reported Past Surgical History: Adenoidectomy, Tonsillectomy Additional Past Surgical History / Comment(s): EGD, rt chest mediport 08-06-16, "esophageal banding," Past Anesthesia/Blood Transfusion Reactions: No Reported Reaction Additional Past Anesthesia/Blood Transfusion Reaction / Comment(s): blood transfusions- no reaction Past Psychological History: No Psychological Hx Reported Smoking Status: Current every day smoker Past Alcohol Use History: None Reported Past Drug Use History: None Reported - Past Family History Mother Family Medical History: Cancer Additional Family Medical History / Comment(s): of lung ca Father Family Medical History: Myocardial Infarction ([place]) Additional Family Medical History / Comment(s): from 2nd heart attack <Nir Garcia - Last Filed: 12/15/16 06:46> General Exam Limitations: no limitations General appearance: alert, in no apparent distress Head exam: Present: atraumatic Eye exam: Present: normal appearance, PERRL ENT exam: Present: mucous membranes dry Neck exam: Present: normal inspection Respiratory exam: Present: normal lung sounds bilaterally Cardiovascular Exam: Present: tachycardia GI/Abdominal exam: Present: soft, distended (Ascites). Absent: tenderness, guarding, rebound, rigid Extremities exam: Present: pedal edema (+1 bilateral). Absent: calf tenderness Neurological exam: Present: alert Psychiatric exam: Present: normal affect, normal mood Skin exam: Present: normal color <Nir Garcia - Last Filed: 12/15/16 06:46> EKG Findings - EKG Comments: EKG Findings:: Sinus tachycardia 102. LA 118. QRS 78. QT 356. QTc 463. Left axis. Normal QRS. No acute ST change. <Nir Garcia - Last Filed: 12/15/16 06:46> Medical Decision Making - Lab Data Result diagrams: 12/15/16 06:22 <Nir Garcia - Last Filed: 12/15/16 06:46> - Lab Data Result diagrams: 12/15/16 06:22 12/15/16 06:22 - Radiology Data Radiology results: report reviewed (I did review the imaging and reports no acute findings or is evidence of ascites.), image reviewed <Francisco Mata - Last Filed: 12/15/16 09:08> - Medical Decision Making I did discuss case with Dr. Estrada the patient will be admitted interventional radiology will be consulted for paracentesis. (Francisco Mata) - Lab Data Lab Results 12/15/16 12/15/16 12/15/16 Range/Units 06:22 06:22 06:22 WBC 3.0 L (3.8-10.6) k/uL RBC 3.01 L (3.80-5.40) m/uL Hgb 11.6 (11.4-16.0) gm/dL Hct 34.3 (34.0-46.0) % MCV 113.8 H D (80.0-100.0) fL MCH 38.6 H (25.0-35.0) pg MCHC 33.9 (31.0-37.0) g/dL RDW 14.6 (11.5-15.5) % Plt Count 62 L (150-450) k/uL Neutrophils % 74 % Lymphocytes % 11 % Monocytes % 10 % Eosinophils % 1 % Basophils % 0 % Neutrophils # 2.2 (1.3-7.7) k/uL Lymphocytes # 0.3 L (1.0-4.8) k/uL Monocytes # 0.3 (0-1.0) k/uL Eosinophils # 0.0 (0-0.7) k/uL Basophils # 0.0 (0-0.2) k/uL Manual Slide Review Performed Poikilocytosis Slight Macrocytosis Marked PT 13.0 H (9.0-12.0) sec INR 1.3 H (<1.2) APTT 29.8 (22.0-30.0) sec Sodium 136 L (137-145) mmol/L Potassium 3.8 (3.5-5.1) mmol/L Chloride 104 (98-107) mmol/L Carbon Dioxide 26 (22-30) mmol/L Anion Gap 6 mmol/L BUN 8 (7-17) mg/dL Creatinine 0.63 (0.52-1.04) mg/dL Est GFR (MDRD) Af Amer >60 (>60 ml/min/1.73 sqM) Est GFR (MDRD) Non-Af >60 (>60 ml/min/1.73 sqM) Glucose 103 H (74-99) mg/dL Calcium 8.5 (8.4-10.2) mg/dL Total Bilirubin 4.2 H (0.2-1.3) mg/dL AST 37 H (14-36) U/L ALT 27 (9-52) U/L Alkaline Phosphatase 92 (38-126) U/L Total Protein 6.6 (6.3-8.2) g/dL Albumin 2.7 L (3.5-5.0) g/dL Amylase <30 L (30-110) U/L Lipase 60 (23-300) U/L Urine Color Urine Appearance (Clear) Urine pH (5.0-8.0) Ur Specific Art (1.001-1.035) Urine Protein (Negative) Urine Glucose (UA) (Negative) Urine Ketones (Negative) Urine Blood (Negative) Urine Nitrite (Negative) Urine Bilirubin (Negative) Urine Urobilinogen (<2.0) mg/dL Ur Leukocyte Esterase (Negative) Urine RBC (0-5) /hpf Urine WBC (0-5) /hpf Ur Squamous Epith Cells (0-4) /hpf Urine Bacteria (None) /hpf Urine Mucus (None) /hpf 12/15/16 Range/Units 06:22 WBC (3.8-10.6) k/uL RBC (3.80-5.40) m/uL Hgb (11.4-16.0) gm/dL Hct (34.0-46.0) % MCV (80.0-100.0) fL MCH (25.0-35.0) pg MCHC (31.0-37.0) g/dL RDW (11.5-15.5) % Plt Count (150-450) k/uL Neutrophils % % Lymphocytes % % Monocytes % % Eosinophils % % Basophils % % Neutrophils # (1.3-7.7) k/uL Lymphocytes # (1.0-4.8) k/uL Monocytes # (0-1.0) k/uL Eosinophils # (0-0.7) k/uL Basophils # (0-0.2) k/uL Manual Slide Review Poikilocytosis Macrocytosis PT (9.0-12.0) sec INR (<1.2) APTT (22.0-30.0) sec Sodium (137-145) mmol/L Potassium (3.5-5.1) mmol/L Chloride (98-107) mmol/L Carbon Dioxide (22-30) mmol/L Anion Gap mmol/L BUN (7-17) mg/dL Creatinine (0.52-1.04) mg/dL Est GFR (MDRD) Af Amer (>60 ml/min/1.73 sqM) Est GFR (MDRD) Non-Af (>60 ml/min/1.73 sqM) Glucose (74-99) mg/dL Calcium (8.4-10.2) mg/dL Total Bilirubin (0.2-1.3) mg/dL AST (14-36) U/L ALT (9-52) U/L Alkaline Phosphatase (38-126) U/L Total Protein (6.3-8.2) g/dL Albumin (3.5-5.0) g/dL Amylase (30-110) U/L Lipase (23-300) U/L Urine Color Baxter Urine Appearance Cloudy H (Clear) Urine pH 6.0 (5.0-8.0) Ur Specific Art 1.012 (1.001-1.035) Urine Protein Trace H (Negative) Urine Glucose (UA) Negative (Negative) Urine Ketones Negative (Negative) Urine Blood Negative (Negative) Urine Nitrite Negative (Negative) Urine Bilirubin 1+ H (Negative) Urine Urobilinogen 2.0 (<2.0) mg/dL Ur Leukocyte Esterase Negative (Negative) Urine RBC 1 (0-5) /hpf Urine WBC 3 (0-5) /hpf Ur Squamous Epith Cells 14 H (0-4) /hpf Urine Bacteria Occasional H (None) /hpf Urine Mucus Many H (None) /hpf Disposition <Nir Garcia - Last Filed: 12/15/16 06:46> <Francisco Mata - Last Filed: 12/15/16 09:08> Clinical Impression: Abdominal pain, Ascites, Jaundice, Cirrhosis Disposition: ADMITTED IP TO THIS HOSP Condition: Stable Referrals: Mark Estrada MD [Primary Care Provider] - 1-2 days
[2016-12-15 06:35] LABS: Basophils % (A) 0 %; CH 37.5; CHCM 33.2; Eosinophils % (A) 1 %; HCT 34.3 % (34.0-46.0); HDW 3.45; HGB 11.6 gm/dL (11.4-16.0); Luc # (Auto) 0.09; Luc % (Auto) 3; Lymphocytes # (A) 0.3 k/uL (1.0-4.8); Lymphocytes % (A) 11 %; MCH 38.6 pg (25.0-35.0); MCHC 33.9 g/dL (31.0-37.0); Macrocytosis Marked; Mean Platelet Volume 10.3; Monocytes # (A) 0.3 k/uL (0-1.0); Monocytes % (A) 10 %; Neutrophils # (A) 2.2 k/uL (1.3-7.7); Neutrophils % (A) 74 %; Poikilocytosis Slight; RBC 3.01 m/uL (3.80-5.40); RDW 14.6 % (11.5-15.5); WBC (Perox) 3.07
[2016-12-15 06:37] LABS: Appearance,Urine Cloudy (Clear); Bacteria,Urine Occasional /hpf; Bilirubin,Urine 1+ (Negative); Glucose,Urine (UA) Negative (Negative); Ketones,Urine Negative (Negative); Leukocyte Esterase,Urine Negative (Negative); Mucus,Urine Many /hpf; Nitrite,Urine Negative (Negative); Particle Count 21513; Protein,Urine Trace (Negative); RBC,Urine 1 /hpf (0-5); Specific Gravity,Urine 1.012 (1.001-1.035); Squamous Epithelial Cell,Urine 14 /hpf (0-4); UA Billing (MACRO vs. MICRO) MICRO; WBC,Urine 3 /hpf (0-5)
[2016-12-15 06:40] LABS: MCV 113.8 fL (80.0-100.0)
[2016-12-15 06:47] LABS: INR 1.3 (<1.2); Partial Thromboplastin Time 29.8 sec (22.0-30.0)
--- NOTE | 2016-12-15 06:54 | XR ---
EXAM: XR KUB, 1 View CLINICAL HISTORY: Reason: abdominal pain TECHNIQUE: Frontal supine view of the abdomen/pelvis. COMPARISON: No relevant prior studies available. FINDINGS: Gastrointestinal tract: Unremarkable. No dilation. No abnormal abdominal calcifications seen. Bones/joints: Unremarkable. IMPRESSION: Normal KUB x-ray.
[2016-12-15 06:59] LABS: ALT 27 U/L (9-52); AST 37 U/L (14-36); Alkaline Phosphatase 92 U/L (38-126); Amylase <30 U/L (30-110); Anion Gap 6 mmol/L; Blood Urea Nitrogen 8 mg/dL (7-17); Calcium 8.5 mg/dL (8.4-10.2); Carbon Dioxide 26 mmol/L (22-30); Chloride 104 mmol/L (98-107); Glucose 103 mg/dL (74-99); Non-African American GFR(MDRD) >60 (>60 ml/min/1.73 sqM); Potassium 3.8 mmol/L (3.5-5.1); Sodium 136 mmol/L (137-145); Total Bilirubin 4.2 mg/dL (0.2-1.3); Total Protein 6.6 g/dL (6.3-8.2)
[2016-12-15 07:31] LABS: Manual Review Performed
[2016-12-15] MEDS ORDERED: NALOXONE 0.4 MG/ML 1 ML VIAL IV PRN (09:09)
[2016-12-15] MEDS ORDERED: ONDANSETRON 4 MG/2 ML VIAL IVP STA (10:04)
[2016-12-15 11:50] VITALS: BMI 29.5
[2016-12-15] MEDS: HYDROcodone/APAP 5-325MG 1 EACH TAB PO PRN (16:43)
[2016-12-15] MEDS: HYDROmorphone 2 MG/ML 1 ML SYRINGE IVP PRN (20:51)
[2016-12-15] MEDS: ONDANSETRON 4 MG/2 ML VIAL IVP PRN (20:55)
[2016-12-16] MEDS: HYDROmorphone 2 MG/ML 1 ML SYRINGE IVP PRN ×3 (01:20→09:36)
[2016-12-16] MEDS: ONDANSETRON 4 MG/2 ML VIAL IVP PRN ×2 (03:17→05:37)
[2016-12-16] MEDS: HYDROcodone/APAP 5-325MG 1 EACH TAB PO PRN ×2 (03:22→07:18)
[2016-12-16 08:12] VITALS: BP 123/63; PULSE 116; RESP 15; TEMP 98.2
--- NOTE | 2016-12-16 08:26 | US ---
Therapeutic paracentesis. DATE OF EXAM: 12/15/2016 CLINICAL HISTORY: Ascites The procedure was discussed with the patient. The risks, complications, benefits, and alternatives we re discussed and any questions were answered. Informed consent was obtained. The patient was placed s upine on the ultrasound table and prepped and draped in the usual sterile fashion. All elements of maximal barrier technique were utilized. Under ultrasound guidance, access into the right lower quadrant was obtained, via the paracentesis catheter system and direct ultrasound guidanc e. Approximately 9.5 liters of straw-colored fluid was removed. The patient was stable throughout the pr ocedure and remained stable upon discharge from Department of Radiology. IMPRESSION: Successful therapeutic paracentesis under ultrasound guidance.
--- NOTE | 2016-12-16 16:44 | P.CONS ---
History of Present Illness - Reason for Consult Consult date: 12/16/16 discuss plan of care for breast cancer Requesting physician: Mark Estrada - Chief Complaint abd distension - History of Present Illness Pt is well known to our practice. She was last treated in September 2016 for early stage IIB invasive ductal carcinoma, triple negative hormonal status, breast cancer. She completed 3/4 cycles adriamycin and cytoxan, no taxol. She had poor tolerance to treatment and severe hematological toxicities-felt most likely to be related to severe liver disease from Hep C and cirrhosis. Recommendation was for pt to proceed to surgery since she had a good clinical response. Pt CBC struggled to recover post treatment and she has had multiple hospital admissions for abd distension/pain from ascites. Pt seen today and states that she does have appt with [facility] next week to be evaluated for breast surgery. She feels better since having the ascitis fluid removed from her abdomen, she is very anxious and wants to go home. She ate breakfast and is ambulating. Review of Systems All systems: negative (except as stated in HPI) Past Medical History Past Medical History: Cancer, GERD/Reflux, GI Bleed, Hearing Disorder / Deafness , Hypertension, Liver Disease Additional Past Medical History / Comment(s): Hepatitis C, intractable ascities , pancytopenia, vertigo; "benign abd mass", states has had esophageal banding, lt breast cancer had chemo last on 09-12-16-did not tolerate, lt ear hearing loss , multiple upper GI bleeds. History of Any Multi-Drug Resistant Organisms: None Reported Past Surgical History: Adenoidectomy, Tonsillectomy Additional Past Surgical History / Comment(s): 11/17/16 paracentesis, EGD, esophageal banding, rt chest mediport 08-06-16, l breast bx. Past Anesthesia/Blood Transfusion Reactions: No Reported Reaction Additional Past Anesthesia/Blood Transfusion Reaction / Comm: blood transfusions - no reaction Past Psychological History: Anxiety Smoking Status: Current every day smoker Past Alcohol Use History: Unable to Obtain - Past Family History Mother Family Medical History: Cancer Additional Family Medical History / Comment(s): of lung ca at the age of 59yrs. She was a smoker. Father Family Medical History: Myocardial Infarction (CT) Additional Family Medical History / Comment(s): from 2nd heart attack at the age of 59yrs. Medications and Allergies Home Medications Medication Instructions Recorded Confirmed Type Hydrocodone/Acetaminophen [[place] 1 tab PO Q4H PRN 08/26/16 12/15/16 History 5-325] Allergies Allergy/AdvReac Type Severity Reaction Status Date / Time No Known Allergies Allergy Verified 12/15/16 07:50 Physical Exam Vitals: Vital Signs Temp Pulse Pulse Resp BP Pulse Ox 12/16/16 08:43 116 H 12/16/16 08:00 98.2 F 116 H 15 123/63 91 L 12/15/16 20:55 99.1 F 95 16 99/49 92 L 12/15/16 16:35 96 86 16 12/15/16 16:28 86 16 121/69 97 Intake and Output 12/16/16 12/16/16 12/16/16 06:59 14:59 22:59 Other: Voiding Method Toilet # Voids 1 - Constitutional Gaunt appearance, thin body with large abdomen - EENT Eyes: edentulous, EOMI, scleral icterus - Neck dry mouth - Respiratory Respiratory: bilateral: CTA - Cardiovascular Rhythm: regular Heart sounds: normal: S1, S2 leg Peripheral Edema: bilateral: 1+ - Gastrointestinal General gastrointestinal: distended, normal bowel sounds, soft - Neurologic Neurologic: CNII-XII intact - Musculoskeletal Musculoskeletal: strength equal bilaterally - Psychiatric Psychiatric: A&O x's 3, intact judgment & insight During breast exam pt stated "I don't want to know anything, I don't want to know if anything has changed". Pt right breast did not have any palpable masses, no skin changes, axillary lynph nodes. Pt left breast has palpable mass 11 O clock, oblong, not fixed to chest wall, no skin changes noted, firm but not hard, no palpable axillary lymph nodes. Results CBC & Chem 7: 12/15/16 06:22 12/15/16 06:22 Labs: Microbiology - Last 24 Hours (Table) 12/15/16 06:22 Urine Culture - Final Urine,Voided Abdominal x-ray: report reviewed Assessment and Plan (1) Left breast cancer with T3 tumor, >5 cm in greatest dimension Narrative/Plan: Pt states she is to be seen at [facility] for surgical evaluation as she is high risk surgical candidate due to severe liver disease. She has appt for next week, she will keep appt. Her left breast mass appears stable with no gross acute changes that can be physically examined. Pt did not want to know about the breast exam. Status: Chronic (2) Leukopenia Narrative/Plan: Multifactorial cause-liver disease and marrow suppression from chemo. ANC adequate, no acute intervention. 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 Platelets are adequate, no intervention needed. Status: Chronic
--- NOTE | 2016-12-17 13:04 | HP ---
HISTORY AND PHYSICAL CHIEF COMPLAINT: Abdominal pain. HISTORY OF PRESENT ILLNESS: This another admission for this 51-year-old, white female, who has CA of the breast and also cirrhosis with intractable ascites secondary to hepatitis C. She is very noncompliant. She does not follow up with Oncology nor does she come to my office after she leaves the hospital. She came back to the hospital complaining of abdominal pain, likely due to the reestablishment of her ascites. REVIEW OF SYSTEMS: She has had no confusion, headaches, change in vision or the hearing, chest pain, cough, hemoptysis, nausea, vomiting, hematemesis, melena, hematochezia, urinary symptoms, etc. Past medical history, family history and personal and social histories are all otherwise unchanged or unremarkable. PHYSICAL EXAMINATION: Blood pressure 115/73, pulse of 88, respirations 36, and she is afebrile. GENERAL: She appeared to be slightly pale and she was uncomfortable. Head, ears, eyes, nose, mouth and throat were normal. Chest is clear. There are no rales or rhonchi. Cardiac exam demonstrated sinus rhythm, no murmurs or extra sounds. Abdomen is protuberant with ascites and generally tender. Bowel sounds are heard. EXTREMITIES: Normal. Neurologically, she is intact. IMPRESSION: 1. Abdominal pain due to intractable ascites. 2. Cirrhosis. 3. Portal hypertension. 4. Hepatitis C. 5. Cancer of the breast. PLAN: 1. Consult with Interventional Radiology for paracentesis. 2. Consult with Oncology. MMODL / IJN: [id number] /
--- NOTE | 2016-12-17 22:00 | DS ---
DISCHARGE SUMMARY CHIEF COMPLAINT: Abdominal pain and ascites. HISTORY OF PRESENT ILLNESS AND PHYSICAL EXAM: Details of this lady's history and physical can be found in the initial workup. LABORATORY STUDIES: While she was in the hospital she had laboratory studies, details of which can be found in the laboratory section of her chart. COURSE IN THE HOSPITAL: After admission she was placed on bedrest, started on intravenous fluids and seen by Interventional Radiology. She underwent paracentesis. After that her abdominal pain was gone. She felt well. She was assessed by Oncology and it was felt she could go home. She will return home on her unusual diet and regular activity. She will continue on the analgesics. She will follow up with us and Oncology, if she chooses to do so. FINAL DIAGNOSES: 1. Abdominal pain due to intractable ascites. 2. Cirrhosis. 3. Hepatitis C. 4. Carcinoma of the breast. OPERATION: Interventional Radiology for paracentesis. CONSULTATIONS: 1. Interventional Radiology. 2. Oncology. She is improved. MMODL / IJN: [id number] /
== END 2016-12-16 14:03 | disposition home or self-care (01) | DRG 442 ==
LOC: EC 05:14 → 5MS5E 09:09 → 5ONC 09:25
PROVIDERS: ADMIT Family Medicine; ATTEND Family Medicine
PROC: 0W9G3ZZ Drainage of Peritoneal Cavity, Percutaneous Approach (ICD-10-PCS; principal; 2016-12-15)
DX: B19.20 Unspecified viral hepatitis C without hepatic coma (principal); K76.6 Portal hypertension; R18.8 Other ascites; C50.912 Malignant neoplasm of unspecified site of left female breast; D69.59 Other secondary thrombocytopenia; D72.819 Decreased white blood cell count, unspecified; I10 Essential (primary) hypertension; K74.60 Unspecified cirrhosis of liver; F17.200 Nicotine dependence, unspecified, uncomplicated; H91.92 Unspecified hearing loss, left ear; Z17.1 Estrogen receptor negative status [ER-]; K21.9 Gastro-esophageal reflux disease without esophagitis; Z80.1 Family history of malignant neoplasm of trachea, bronchus and lung; Z82.49 Family history of ischemic heart disease and other diseases of the circulatory system; Z91.19 Patient's noncompliance with other medical treatment and regimen; T45.1X5S Adverse effect of antineoplastic and immunosuppressive drugs, sequela; F41.9 Anxiety disorder, unspecified
CPT/HCPCS: 36415; 49083; 74000; 80053; 81001; 82150; 83690; 85025; 85610; 85730; 87086; 93005; 96374; 99285

== ENCOUNTER 2016-12-26 23:06 | Emergency (ER) | payer MEDICARE, OTHER ==
[2016-12-27] MEDS ORDERED: SODIUM CHLORIDE 0.9% 500 ML IV STA (00:03)
[2016-12-27] MEDS ORDERED: ONDANSETRON 4 MG/2 ML VIAL IVP STA (00:03)
[2016-12-27] MEDS ORDERED: HYDROmorphone 1 MG/ML 1 ML SYRINGE IVP STA (00:03)
--- NOTE | 2016-12-27 00:09 | ED ---
Abdominal Pain HPI - General Chief Complaint: Abdominal Pain Stated Complaint: Nausea Time Seen by Provider: 12/26/16 23:55 Source: patient Mode of arrival: ambulatory Limitations: no limitations - History of Present Illness Initial Comments: 51-year-old female patient presents to emergency department today for evaluation of right upper quadrant abdominal pain and dry heaves. Patient has a past medical history significant for cirrhosis related to hepatitis C, breast cancer, chronic abdominal pain, and ascites. Patient states that she generally has right upper quadrant abdominal pain however today it is more severe. She states the pain radiates into her back. She states that she is also been frequently having dry heaves with production of small amounts of clear vomitus. She states that the vomiting has made her pain worse. She states she is also having watery diarrhea however this is chronic for her. She denies any hematemesis, hematochezia, or melena. She states that she does have some abdominal distention, her last paracentesis was 3 weeks ago. Says she has had this procedure done only 2 times in the past. She states that she is taking Lasix for this and it has helped a lot with the ascites. She says she was diagnosed with hepatitis C 8 years ago. She states she was diagnosed with left- sided breast cancer in July of this year. She states she did have 3 rounds of chemotherapy the last one being in September. She states that she is going to be evaluated at [facility] for further treatment. She states she is also going to be seeing a new general merchandise salesperson at [facility] as well. Patient denies any recent rash, fever, chills, shortness breath, chest pain, back pain, numbness, tingling, dizziness, weakness, hematuria, dysuria, urinary urgency, urinary frequency, headache, visual changes, or any other complaints. - Related Data Home Medications Medication Instructions Recorded Confirmed Furosemide [Lasix] 40 mg PO DAILY 12/26/16 12/26/16 HYDROcodone/APAP 7.5-325MG [[place] 0.5 tab PO QID PRN 12/26/16 12/26/16 7.5-325] Omeprazole 20 mg PO BID PRN 12/26/16 12/26/16 Previous Rx's Medication Instructions Recorded Potassium Chloride ER [K-Dur 20] 20 meq PO DAILY #15 tab 12/27/16 Allergies Allergy/AdvReac Type Severity Reaction Status Date / Time No Known Allergies Allergy Verified 12/26/16 23:39 Review of Systems ROS Statement: Those systems with pertinent positive or pertinent negative responses have been documented in the HPI. ROS Other: All systems not noted in ROS Statement are negative. Past Medical History Past Medical History: Cancer, GERD/Reflux, GI Bleed, Hearing Disorder / Deafness , Hypertension, Liver Disease Additional Past Medical History / Comment(s): Hepatitis C, intractable ascities , pancytopenia, vertigo; "benign abd mass", states has had esophageal banding, lt breast cancer had chemo last on 09-12-16-did not tolerate, lt ear hearing loss , multiple upper GI bleeds. History of Any Multi-Drug Resistant Organisms: None Reported Past Surgical History: Adenoidectomy, Tonsillectomy Additional Past Surgical History / Comment(s): 11/17/16 paracentesis, EGD, esophageal banding, rt chest mediport 08-06-16, l breast bx. Past Anesthesia/Blood Transfusion Reactions: No Reported Reaction Additional Past Anesthesia/Blood Transfusion Reaction / Comment(s): blood transfusions- no reaction Past Psychological History: Anxiety Smoking Status: Current every day smoker Past Alcohol Use History: Unable to Obtain Past Drug Use History: None Reported - Past Family History Mother Family Medical History: Cancer Additional Family Medical History / Comment(s): of lung ca at the age of 59yrs. She was a smoker. Father Family Medical History: Myocardial Infarction ([place]) Additional Family Medical History / Comment(s): from 2nd heart attack at the age of 59yrs. General Exam Limitations: no limitations General appearance: alert, in no apparent distress, other (This is a thin- appearing 51-year-old female patient in no acute distress. Vital signs upon presentation were temperature 98.2F, pulse 90, respirations 20, blood pressure 126/64, pulse ox 98%.) Eye exam: Present: normal appearance, PERRL, EOMI. Absent: scleral icterus, conjunctival injection, periorbital swelling ENT exam: Present: normal exam, normal oropharynx, mucous membranes moist Respiratory exam: Present: normal lung sounds bilaterally. Absent: respiratory distress, wheezes, rales, rhonchi, stridor Cardiovascular Exam: Present: regular rate, normal rhythm, normal heart sounds. Absent: systolic murmur, diastolic murmur, rubs, gallop, clicks GI/Abdominal exam: Present: soft, distended, tenderness (Right flank tenderness) , normal bowel sounds. Absent: guarding, rebound, rigid Back exam: Present: normal inspection. Absent: tenderness Neurological exam: Present: alert, oriented X3, CN II-XII intact Psychiatric exam: Present: normal affect, normal mood Skin exam: Present: warm, dry, intact, normal color. Absent: rash Course Vital Signs 12/26/16 12/27/16 12/27/16 23:15 00:31 01:23 Temperature 98.2 F Pulse Rate 90 96 100 Respiratory 20 18 18 Rate Blood Pressure 126/64 114/62 114/62 O2 Sat by Pulse 98 92 L 94 L Oximetry 12/27/16 02:16 Temperature 98.7 F Pulse Rate 96 Respiratory 18 Rate Blood Pressure 130/68 O2 Sat by Pulse 94 L Oximetry Medical Decision Making - Medical Decision Making 51-year-old female patient presented for evaluation of worsening right upper quadrant pain and dry heaves throughout the day today. Patient did report a past medical history significant for cirrhosis and chronic hepatitis infection. She does have chronic pain to the area but states today was worsened by the dry heaves. Physical exam did show some mild abdominal distention, however patient reports that this is much improved after paracentesis 2 weeks ago. Labs were reviewed and did show a sodium level 133, potassium 2.8, chloride 95, glucose 1:15, calcium 8.2, total bilirubin of 5.4, an AST of 48, an albumin of 2.5. Previous labs were reviewed and showed that most of these findings were chronic for the patient. The potassium of 2.8 was replaced with 40 mEq oral. The patient was recently placed on Lasix however does not have potassium replacement. Upon reevaluation patient states that she feels much better. She states that her symptoms are completely resolved. She states that she feels that she could go home. I did give patient a prescription for potassium 20 mEq per day. I gave her prescription for a repeat level and instructed her to obtain this in one to 2 days. She was instructed to follow-up with her primary care physician, she did report that she has an appointment on December 29. I urged her to keep this appointment. I instructed her to return here immediately for any new, worsening, or concerning symptoms. Patient verbalized understanding and agreed with this plan. - Lab Data Result diagrams: 12/27/16 00:29 12/27/16 00:29 Lab Results 12/27/16 12/27/16 12/27/16 Range/Units 00:29 00:29 00:29 WBC 7.8 (3.8-10.6) k/uL RBC 3.13 L (3.80-5.40) m/uL Hgb 11.9 (11.4-16.0) gm/dL Hct 36.0 (34.0-46.0) % MCV 114.9 H (80.0-100.0) fL MCH 37.9 H (25.0-35.0) pg MCHC 33.0 (31.0-37.0) g/dL RDW 15.2 (11.5-15.5) % Plt Count 70 L (150-450) k/uL Neutrophils % 87 % Lymphocytes % 7 % Monocytes % 5 % Eosinophils % 0 % Basophils % 0 % Neutrophils # 6.8 (1.3-7.7) k/uL Lymphocytes # 0.5 L (1.0-4.8) k/uL Monocytes # 0.4 (0-1.0) k/uL Eosinophils # 0.0 (0-0.7) k/uL Basophils # 0.0 (0-0.2) k/uL Manual Slide Review Performed Macrocytosis Marked PT 14.6 H (9.0-12.0) sec INR 1.5 H (<1.2) APTT 30.2 H (22.0-30.0) sec Sodium 133 L (137-145) mmol/L Potassium 2.8 L* (3.5-5.1) mmol/L Chloride 95 L (98-107) mmol/L Carbon Dioxide 30 (22-30) mmol/L Anion Gap 8 mmol/L BUN 15 (7-17) mg/dL Creatinine 0.70 (0.52-1.04) mg/dL Est GFR (MDRD) Af Amer >60 (>60 ml/min/1.73 sqM) Est GFR (MDRD) Non-Af >60 (>60 ml/min/1.73 sqM) Glucose 115 H (74-99) mg/dL Calcium 8.2 L (8.4-10.2) mg/dL Total Bilirubin 5.4 H (0.2-1.3) mg/dL AST 48 H (14-36) U/L ALT 30 (9-52) U/L Alkaline Phosphatase 110 (38-126) U/L Total Protein 6.6 (6.3-8.2) g/dL Albumin 2.5 L (3.5-5.0) g/dL Amylase <30 L (30-110) U/L Lipase 94 (23-300) U/L Urine Color Urine Appearance (Clear) Urine pH (5.0-8.0) Ur Specific Circle (1.001-1.035) Urine Protein (Negative) Urine Glucose (UA) (Negative) Urine Ketones (Negative) Urine Blood (Negative) Urine Nitrite (Negative) Urine Bilirubin (Negative) Urine Urobilinogen (<2.0) mg/dL Ur Leukocyte Esterase (Negative) Urine RBC (0-5) /hpf Urine WBC (0-5) /hpf Ur Squamous Epith Cells (0-4) /hpf Amorphous Sediment (None) /hpf Urine Mucus (None) /hpf 12/27/16 Range/Units 00:29 WBC (3.8-10.6) k/uL RBC (3.80-5.40) m/uL Hgb (11.4-16.0) gm/dL Hct (34.0-46.0) % MCV (80.0-100.0) fL MCH (25.0-35.0) pg MCHC (31.0-37.0) g/dL RDW (11.5-15.5) % Plt Count (150-450) k/uL Neutrophils % % Lymphocytes % % Monocytes % % Eosinophils % % Basophils % % Neutrophils # (1.3-7.7) k/uL Lymphocytes # (1.0-4.8) k/uL Monocytes # (0-1.0) k/uL Eosinophils # (0-0.7) k/uL Basophils # (0-0.2) k/uL Manual Slide Review Macrocytosis PT (9.0-12.0) sec INR (<1.2) APTT (22.0-30.0) sec Sodium (137-145) mmol/L Potassium (3.5-5.1) mmol/L Chloride (98-107) mmol/L Carbon Dioxide (22-30) mmol/L Anion Gap mmol/L BUN (7-17) mg/dL Creatinine (0.52-1.04) mg/dL Est GFR (MDRD) Af Amer (>60 ml/min/1.73 sqM) Est GFR (MDRD) Non-Af (>60 ml/min/1.73 sqM) Glucose (74-99) mg/dL Calcium (8.4-10.2) mg/dL Total Bilirubin (0.2-1.3) mg/dL AST (14-36) U/L ALT (9-52) U/L Alkaline Phosphatase (38-126) U/L Total Protein (6.3-8.2) g/dL Albumin (3.5-5.0) g/dL Amylase (30-110) U/L Lipase (23-300) U/L Urine Color Dark Brown Urine Appearance Cloudy H (Clear) Urine pH 6.0 (5.0-8.0) Ur Specific Circle 1.034 (1.001-1.035) Urine Protein 1+ H (Negative) Urine Glucose (UA) Trace H (Negative) Urine Ketones Negative (Negative) Urine Blood Negative (Negative) Urine Nitrite Negative (Negative) Urine Bilirubin 2+ H (Negative) Urine Urobilinogen 12.0 (<2.0) mg/dL Ur Leukocyte Esterase Negative (Negative) Urine RBC 1 (0-5) /hpf Urine WBC 4 (0-5) /hpf Ur Squamous Epith Cells 2 (0-4) /hpf Amorphous Sediment Rare H (None) /hpf Urine Mucus Many H (None) /hpf - Radiology Data Radiology results: report reviewed, image reviewed KUB of the abdomen showed nonobstructive bowel gas pattern. No subdiaphragmatic free air is seen. Impression by Dr. Campbell shows nonobstructive bowel gas pattern. Disposition Clinical Impression: Abdominal pain, Nausea & vomiting, Hypokalemia Disposition: HOME SELF-CARE Condition: Good Instructions: Hypokalemia (ED), Acute Nausea and Vomiting (ED), Abdominal Pain (ED) Additional Instructions: Have repeat lab test in one to 2 days. Take medications as directed. Follow- up with Dr. Estrada in one to 2 days for recheck. Return here immediately for any new, worsening, or concerning symptoms. Prescriptions: Potassium Chloride ER [K-Dur 20] 20 meq PO DAILY #15 tab Referrals: Mark Estrada MD [Primary Care Provider] - 1-2 days Time of Disposition: 01:57
[2016-12-27 00:33] VITALS: RESP 18
[2016-12-27 00:43] LABS: Basophils % (A) 0 %; CH 38.6; CHCM 33.8; Eosinophils % (A) 0 %; HDW 3.28; HGB 11.9 gm/dL (11.4-16.0); Luc # (Auto) 0.11; Luc % (Auto) 1; Lymphocytes # (A) 0.5 k/uL (1.0-4.8); Lymphocytes % (A) 7 %; MCH 37.9 pg (25.0-35.0); MCV 114.9 fL (80.0-100.0); Macrocytosis Marked; Mean Platelet Volume 9.9; Monocytes # (A) 0.4 k/uL (0-1.0); Monocytes % (A) 5 %; Neutrophils # (A) 6.8 k/uL (1.3-7.7); Neutrophils % (A) 87 %; RBC 3.13 m/uL (3.80-5.40); RDW 15.2 % (11.5-15.5); WBC 7.8 k/uL (3.8-10.6); WBC (Perox) 8.64
[2016-12-27 00:51] LABS: INR 1.5 (<1.2); Partial Thromboplastin Time 30.2 sec (22.0-30.0); Prothrombin Time 14.6 sec (9.0-12.0)
[2016-12-27 00:57] LABS: Anion Gap 8 mmol/L; Blood Urea Nitrogen 15 mg/dL (7-17); Carbon Dioxide 30 mmol/L (22-30); Chloride 95 mmol/L (98-107); Glucose 115 mg/dL (74-99); Sodium 133 mmol/L (137-145)
[2016-12-27 00:58] LABS: ALT 30 U/L (9-52); AST 48 U/L (14-36); Alkaline Phosphatase 110 U/L (38-126); Amylase <30 U/L (30-110); Calcium 8.2 mg/dL (8.4-10.2); Non-African American GFR(MDRD) >60 (>60 ml/min/1.73 sqM); Total Bilirubin 5.4 mg/dL (0.2-1.3); Total Protein 6.6 g/dL (6.3-8.2)
[2016-12-27 01:02] LABS: Potassium 2.8 mmol/L (3.5-5.1)
[2016-12-27 01:03] LABS: Manual Review Performed
[2016-12-27 01:05] LABS: Amorphous Sediment,Urine Rare /hpf; Appearance,Urine Cloudy (Clear); Bilirubin,Urine 2+ (Negative); Glucose,Urine (UA) Trace (Negative); Ketones,Urine Negative (Negative); Leukocyte Esterase,Urine Negative (Negative); Mucus,Urine Many /hpf; Nitrite,Urine Negative (Negative); Particle Count 24488; Protein,Urine 1+ (Negative); RBC,Urine 1 /hpf (0-5); Specific Gravity,Urine 1.034 (1.001-1.035); Squamous Epithelial Cell,Urine 2 /hpf (0-4); UA Billing (MACRO vs. MICRO) MICRO; WBC,Urine 4 /hpf (0-5)
[2016-12-27] MEDS ORDERED: Potassium Replacement Protocol 1 EACH MISC MISCELLANE PRN (01:11)
[2016-12-27] MEDS ORDERED: POTASSIUM CHLORIDE ORAL LIQUID 40 MEQ/30 ML CUP PO ONE (01:53)
[2016-12-27] MEDS ORDERED: ONDANSETRON 4 MG ODT STARTER PACK 2 TAB BTL PO STA (01:54)
[2016-12-27] MEDS ORDERED: POTASSIUM CHLORIDE 10 MEQ, LIDOCAINE 2% INJ 10 MG in SODIUM CHLORIDE 0.9% 100 ML IV SCH (02:00)
--- NOTE | 2016-12-27 02:10 | XR ---
EXAM: XR Kub CLINICAL HISTORY: Reason: abdominal pain TECHNIQUE: Upright views of abdomen. COMPARISON: 12/15/16 FINDINGS: Nonobstructive bowel gas pattern. No subdiaphragmatic free air is seen. IMPRESSION: Nonobstructive bowel gas pattern.
[2016-12-27 02:23] VITALS: BP 130/68; PULSE 96; TEMP 98.7
== END 2016-12-27 02:25 | disposition home or self-care (01) ==
LOC: EC 23:06
DX: R10.11 Right upper quadrant pain (principal); R11.2 Nausea with vomiting, unspecified; E87.6 Hypokalemia; I10 Essential (primary) hypertension; F17.200 Nicotine dependence, unspecified, uncomplicated; Z85.3 Personal history of malignant neoplasm of breast; Z86.19 Personal history of other infectious and parasitic diseases; Z87.19 Personal history of other diseases of the digestive system; Z98.890 Other specified postprocedural states; Z79.899 Other long term (current) drug therapy
CPT/HCPCS: 99284; 96365; 96375 ×2; 96361; 36415; 80053; 82150; 83690; 85025; 85610; 85730; 81001; 74000; J2001; J2405; J3480; J1170; S0119

== ENCOUNTER 2016-12-29 00:27 | Inpatient (IN) | payer MEDICARE, OTHER ==
[2016-12-29] MEDS ORDERED: ONDANSETRON 4 MG/2 ML VIAL IVP STA (01:18)
[2016-12-29] MEDS ORDERED: HYDROmorphone 1 MG/ML 1 ML SYRINGE IVP STA ×2 (01:18→03:29)
[2016-12-29] MEDS ORDERED: SODIUM CHLORIDE 0.9% 500 ML IV STA (01:18)
[2016-12-29 02:31] LABS: Basophils % (A) 0 %; CH 38.6; CHCM 33.5; Eosinophils # (A) 0.1 k/uL (0-0.7); Eosinophils % (A) 1 %; HCT 33.7 % (34.0-46.0); HDW 3.29; Luc # (Auto) 0.14; Luc % (Auto) 3; Lymphocytes # (A) 0.3 k/uL (1.0-4.8); Lymphocytes % (A) 6 %; MCH 37.9 pg (25.0-35.0); MCHC 32.6 g/dL (31.0-37.0); MCV 116.4 fL (80.0-100.0); Macrocytosis Marked; Mean Platelet Volume 10.2; Monocytes # (A) 0.4 k/uL (0-1.0); Monocytes % (A) 8 %; Neutrophils % (A) 83 %; RBC 2.89 m/uL (3.80-5.40); RDW 15.6 % (11.5-15.5); WBC 4.9 k/uL (3.8-10.6); WBC (Perox) 5.15
[2016-12-29 02:45] LABS: ALT 28 U/L (9-52); AST 39 U/L (14-36); Alkaline Phosphatase 98 U/L (38-126); Amylase <30 U/L (30-110); Anion Gap 9 mmol/L; Blood Urea Nitrogen 18 mg/dL (7-17); Calcium 7.8 mg/dL (8.4-10.2); Carbon Dioxide 27 mmol/L (22-30); Chloride 97 mmol/L (98-107); Glucose 95 mg/dL (74-99); Non-African American GFR(MDRD) >60 (>60 ml/min/1.73 sqM); Sodium 133 mmol/L (137-145); Total Bilirubin 6.1 mg/dL (0.2-1.3); Total Protein 6.2 g/dL (6.3-8.2)
[2016-12-29 03:02] LABS: Manual Review Performed
[2016-12-29] MEDS ORDERED: METOCLOPRAMIDE 5 MG/ML 2 ML VIAL IVP STA (03:29)
[2016-12-29] MEDS ORDERED: diphenhydrAMINE 50 MG/ML 1 ML VIAL IVP STA (03:30)
--- NOTE | 2016-12-29 03:37 | ED ---
Nausea/Vomiting/Diarrhea HPI - General Chief complaint: Nausea/Vomiting/Diarrhea Stated complaint: Nausea Time Seen by Provider: 12/29/16 01:00 Source: patient Mode of arrival: ambulatory Limitations: no limitations - History of Present Illness Initial comments: 51-year-old female patient presents to emergency department today for evaluation of right upper quadrant abdominal pain and vomiting. Patient states that she has been having symptoms since this morning. States that she has dry heaves. States that if she tries to eat or drink anything and immediately comes back up. Patient states that this caused increased pain into her right upper quadrant. Patient is treated for cirrhosis and chronic hepatitis C. Patient was seen here this week for similar symptoms. She was discharged home as her labs showed all chronic changes. Today she states that she was unable to get the pain or the vomiting under control. She states that the pain is a cramp a crampy aching pain in her right upper quadrant, she states it does radiate through to her back. She states that she has had this pain in the past. She states that the vomiting is mostly dry heaves with very small amounts of fluid. She states she has had some diarrhea today but this is chronic for her. She is also reporting some dysuria and difficulty urinating. She denies any hematochezia, melena, or hematemesis. Patient denies any recent rash, itching, fever, chills, shortness breath, chest pain, numbness, tingling, dizziness, weakness, headache, visual changes, or any other complaints. She states she does have an appointment with her liver specialist on . She has appointment with her primary care physician Dr. Estrada tomorrow. - Related Data Home Medications Medication Instructions Recorded Confirmed Furosemide [Lasix] 40 mg PO DAILY 12/26/16 12/26/16 HYDROcodone/APAP 7.5-325MG [[place] 0.5 tab PO QID PRN 12/26/16 12/26/16 7.5-325] Omeprazole 20 mg PO BID PRN 12/26/16 12/26/16 Previous Rx's Medication Instructions Recorded Potassium Chloride ER [K-Dur 20] 20 meq PO DAILY #15 tab 12/27/16 Allergies Allergy/AdvReac Type Severity Reaction Status Date / Time No Known Allergies Allergy Verified 12/26/16 23:39 Review of Systems ROS Statement: Those systems with pertinent positive or pertinent negative responses have been documented in the HPI. ROS Other: All systems not noted in ROS Statement are negative. Past Medical History Past Medical History: Cancer, GERD/Reflux, GI Bleed, Hearing Disorder / Deafness , Hypertension, Liver Disease Additional Past Medical History / Comment(s): Hepatitis C, intractable ascities , pancytopenia, vertigo; "benign abd mass", states has had esophageal banding, lt breast cancer had chemo last on 09-12-16-did not tolerate, lt ear hearing loss , multiple upper GI bleeds. History of Any Multi-Drug Resistant Organisms: None Reported Past Surgical History: Adenoidectomy, Tonsillectomy Additional Past Surgical History / Comment(s): 11/17/16 paracentesis, EGD, esophageal banding, rt chest mediport 08-06-16, l breast bx. Past Anesthesia/Blood Transfusion Reactions: No Reported Reaction Additional Past Anesthesia/Blood Transfusion Reaction / Comment(s): blood transfusions- no reaction Past Psychological History: Anxiety Smoking Status: Current every day smoker Past Alcohol Use History: Unable to Obtain Past Drug Use History: None Reported - Past Family History Mother Family Medical History: Cancer Additional Family Medical History / Comment(s): of lung ca at the age of 59yrs. She was a smoker. Father Family Medical History: Myocardial Infarction ([place]) Additional Family Medical History / Comment(s): from 2nd heart attack at the age of 59yrs. General Exam Limitations: no limitations General appearance: alert, in no apparent distress, other (This is an ill- appearing adult female. She is in no acute distress. Vital signs upon presentation were temperature 98.3F, pulse 99, respirations 19,, blood pressure 125/57, pulse ox 96% on room air.) Eye exam: Present: normal appearance, PERRL, EOMI, scleral icterus. Absent: conjunctival injection, periorbital swelling ENT exam: Present: normal exam, normal oropharynx, mucous membranes moist Neck exam: Present: normal inspection. Absent: tenderness, meningismus, lymphadenopathy Respiratory exam: Present: normal lung sounds bilaterally. Absent: respiratory distress, wheezes, rales, rhonchi, stridor Cardiovascular Exam: Present: regular rate, normal rhythm, normal heart sounds. Absent: systolic murmur, diastolic murmur, rubs, gallop, clicks GI/Abdominal exam: Present: soft, distended, normal bowel sounds, other ( Rounded abdomen). Absent: tenderness, guarding, rebound, rigid Back exam: Present: normal inspection. Absent: tenderness Neurological exam: Present: alert, oriented X3, CN II-XII intact Psychiatric exam: Present: normal affect, normal mood Skin exam: Present: warm, dry, intact, pallor, other (Mild Jaundice). Absent: rash Course Vital Signs 12/29/16 00:54 Temperature 98.3 F Pulse Rate 99 Respiratory 19 Rate Blood Pressure 125/57 O2 Sat by Pulse 96 Oximetry Medical Decision Making - Medical Decision Making 51-year-old female patient presented for evaluation of dry heaves and right upper quadrant abdominal pain. Patient did have a visit for similar symptoms a couple of days ago. Upon reevaluation patient still has nausea, didn't vomit, and still complaining of pain. Lab results were reviewed and did show a elevated bilirubin to 6.4 which is higher than her usual. She also had a platelet level of 47 and a potassium level of 3.0. Urinalysis did have some abnormal findings and was sent for culture. Did speak to Dr. Martinez and regarding the case, he agrees to admit patient for intractable nausea and vomiting, right upper quadrant abdominal pain, and hyperbilirubinemia. Did consult Dr. Botello GI specialist. Potassium replacement was ordered. Patient informed and agreed with this plan. - Lab Data Result diagrams: 12/29/16 02:14 12/29/16 02:14 Lab Results 12/29/16 12/29/16 12/29/16 Range/Units 02:14 02:14 03:37 WBC 4.9 (3.8-10.6) k/uL RBC 2.89 L (3.80-5.40) m/uL Hgb 11.0 L (11.4-16.0) gm/dL Hct 33.7 L (34.0-46.0) % MCV 116.4 H (80.0-100.0) fL MCH 37.9 H (25.0-35.0) pg MCHC 32.6 (31.0-37.0) g/dL RDW 15.6 H (11.5-15.5) % Plt Count 47 L* (150-450) k/uL Neutrophils % 83 % Lymphocytes % 6 % Monocytes % 8 % Eosinophils % 1 % Basophils % 0 % Neutrophils # 4.0 (1.3-7.7) k/uL Lymphocytes # 0.3 L (1.0-4.8) k/uL Monocytes # 0.4 (0-1.0) k/uL Eosinophils # 0.1 (0-0.7) k/uL Basophils # 0.0 (0-0.2) k/uL Manual Slide Review Performed Macrocytosis Marked Sodium 133 L (137-145) mmol/L Potassium 3.0 L* (3.5-5.1) mmol/L Chloride 97 L (98-107) mmol/L Carbon Dioxide 27 (22-30) mmol/L Anion Gap 9 mmol/L BUN 18 H (7-17) mg/dL Creatinine 0.70 (0.52-1.04) mg/dL Est GFR (MDRD) Af Amer >60 (>60 ml/min/1.73 sqM) Est GFR (MDRD) Non-Af >60 (>60 ml/min/1.73 sqM) Glucose 95 (74-99) mg/dL Calcium 7.8 L (8.4-10.2) mg/dL Total Bilirubin 6.1 H (0.2-1.3) mg/dL AST 39 H (14-36) U/L ALT 28 (9-52) U/L Alkaline Phosphatase 98 (38-126) U/L Total Protein 6.2 L (6.3-8.2) g/dL Albumin 2.2 L (3.5-5.0) g/dL Amylase <30 L (30-110) U/L Lipase 74 (23-300) U/L Urine Color Dark Brown Urine Appearance Cloudy H (Clear) Urine pH 6.0 (5.0-8.0) Ur Specific [place] 1.029 (1.001-1.035) Urine Protein 1+ H (Negative) Urine Glucose (UA) Negative (Negative) Urine Ketones Trace H (Negative) Urine Blood Negative (Negative) Urine Nitrite Negative (Negative) Urine Bilirubin 2+ H (Negative) Urine Urobilinogen >12.0 (<2.0) mg/dL Ur Leukocyte Esterase Negative (Negative) Urine RBC 1 (0-5) /hpf Urine WBC 7 H (0-5) /hpf Ur Squamous Epith Cells 4 (0-4) /hpf Hyaline Casts 17 H (0-2) /lpf Urine Mucus Many H (None) /hpf - Radiology Data Radiology results: report reviewed, image reviewed 2 views of the abdomen shows intraperitoneal space has no free air, possibly a small bowel gas. No obvious dilated bowel loops or air-fluid levels. Bones and joints are unremarkable. Impression by Dr. reed shows nonspecific bowel gas pattern with possibly a small bowel gas. No clear findings of obstruction on the study. Disposition Clinical Impression: Intractable nausea and vomiting, Right upper quadrant pain, Hyperbilirubinemia Disposition: ADMITTED IP TO THIS [facility] Condition: Serious Referrals: Mark Estrada MD [Primary Care Provider] - 1-2 days Decision to Admit Reason: Admit from EC Decision Date: 12/29/16 Decision Time: 05:06
--- NOTE | 2016-12-29 03:39 | XR ---
EXAM: XR Abdomen Complete, 2 or More Views CLINICAL HISTORY: Reason: pain TECHNIQUE: 2 upright views of the abdomen COMPARISON: 12/27/2016. FINDINGS: Intraperitoneal space: No free air. Gastrointestinal tract: Paucity of small bowel gas. No obvious dilated bowel loops or air-fluid levels. Bones/joints: Unremarkable. IMPRESSION: 1. Nonspecific bowel gas pattern with paucity of small bowel gas. No clear findings of obstruction on this study.
[2016-12-29] MEDS ORDERED: SODIUM CHLORIDE 0.9% 1,000 ML IV STA (03:53)
[2016-12-29 03:54] LABS: Appearance,Urine Cloudy (Clear); Bilirubin,Urine 2+ (Negative); Glucose,Urine (UA) Negative (Negative); Ketones,Urine Trace (Negative); Leukocyte Esterase,Urine Negative (Negative); Mucus,Urine Many /hpf; Nitrite,Urine Negative (Negative); Particle Count 24983; Protein,Urine 1+ (Negative); RBC,Urine 1 /hpf (0-5); Specific Gravity,Urine 1.029 (1.001-1.035); Squamous Epithelial Cell,Urine 4 /hpf (0-4); UA Billing (MACRO vs. MICRO) MICRO; Urobilinogen,Urine >12.0 mg/dL (<2.0); WBC,Urine 7 /hpf (0-5)
[2016-12-29] MEDS ORDERED: NALOXONE 0.4 MG/ML 1 ML VIAL IV PRN (05:06)
[2016-12-29] MEDS ORDERED: Potassium Replacement Protocol 1 EACH MISC MISCELLANE PRN ×2 (05:11→19:27)
[2016-12-29 05:59] VITALS: RESP 16
[2016-12-29] MEDS: POTASSIUM CHLORIDE 10 MEQ, LIDOCAINE 2% INJ 10 MG in SODIUM CHLORIDE 0.9% 100 ML IV SCH ×4 (06:13→23:19)
--- NOTE | 2016-12-29 10:19 | US ---
EXAMINATION TYPE: US abdomen limited DATE OF EXAM: 12/29/2016 COMPARISON: 12/15/2016 CLINICAL HISTORY: Pain. RUQ pain EXAM MEASUREMENTS: Liver Length: 12.0 cm Gallbladder Wall: 1.0 cm CBD: 0.6 cm Right Kidney: 11.8 x 5.8 x 4.9 cm Pancreas: Tail obscured by overlying bowel gas. Echogenic. Main pancreatic duct= 2.7 mm. Liver: Appears lobular. Suboptimal visualization due to ascites. Gallbladder: Thickened wall. Sludge Evidence for sonographic Greenberg's sign: Yes CBD: wnl Right Kidney: No hydronephrosis or masses seen Incidental finding: Ascites IMPRESSION: 1. Ascites. 2. Gallbladder wall thickening with gallbladder sludge identified. 3. Prominence of the pancreatic duct. 4 globular hyperechoic liver may reflect fatty liver and/or dif fuse hepatocellular disease.
[2016-12-29] MEDS: HYDROmorphone 1 MG/ML 1 ML SYRINGE IV PRN ×4 (11:27→20:36)
--- NOTE | 2016-12-29 20:37 | HP ---
HISTORY AND PHYSICAL CHIEF COMPLAINT: Right upper quadrant pain and jaundice. HISTORY OF PRESENT ILLNESS: This is another recent of many admissions for this 51-year-old white female. She has been diagnosed as having a large carcinoma of the left breast which was thought to have been treated with chemotherapy, but she became extremely pancytopenic. She also has hepatitis C and has been in recently for paracentesis for intractable ascites. She came back to the emergency room on the night of admission complaining of right upper quadrant pain. Her bilirubin was over 6. She denied fever, chills, nausea, vomiting, diarrhea, urinary complaints, etc. She has been extremely noncompliant and does not follow up in the office for appointments, either by primary or specialty caregivers. Apparently she now wants to have a breast procedure to remove the left breast and also wants to be worked up for a liver transplant. She is a very unreliable individual. PHYSICAL EXAMINATION: She is jaundiced. She is dehydrated. She is awake and alert. CHEST: Clear. Cardiac exam is normal. The abdomen is slightly distended with right upper quadrant hepatomegaly. Extremities are normal. Neurologically she is intact. ADMISSION DIAGNOSES: She is admitted to the hospital with diagnoses: 1. Right upper quadrant pain due to hepatitis C. 2. Jaundice. 3. Carcinoma of the breast. PLAN: 1. Bed rest. 2. IV fluids. 3. GI consult. MMIVELISSE / KAREEM: [id number] /
[2016-12-29] MEDS: HYDROcodone/APAP 7.5-325MG 1 EACH TAB PO PRN (21:23)
[2016-12-29] MEDS: ONDANSETRON 4 MG/2 ML VIAL IVP PRN (23:19)
[2016-12-30] MEDS: HYDROmorphone 1 MG/ML 1 ML SYRINGE IV PRN ×5 (00:41→12:04)
[2016-12-30] MEDS: HYDROcodone/APAP 7.5-325MG 1 EACH TAB PO PRN ×2 (04:59→11:08)
[2016-12-30] MEDS: ONDANSETRON 4 MG/2 ML VIAL IVP PRN (06:04)
[2016-12-30 10:25] VITALS: BP 119/56; PULSE 81; TEMP 97.6
[2016-12-30] MEDS ORDERED: METOCLOPRAMIDE 5 MG/ML 2 ML VIAL IVP PRN (11:05)
[2016-12-30] MEDS ORDERED: SCOPOLAMINE 1.5MG/72HR PATCH TRANSDERM STA (11:05)
[2016-12-30] MEDS ORDERED: ONDANSETRON 4 MG/2 ML VIAL IVP PRN (11:06)
[2016-12-30] MEDS ORDERED: FUROSEMIDE 40 MG TAB PO SCH (11:15)
[2016-12-30] MEDS ORDERED: SPIRONOLACTONE 25 MG TAB PO SCH (11:15)
--- NOTE | 2016-12-30 12:13 | P.CONS ---
History of Present Illness - Reason for Consult Consult date: 12/30/16 Ascites hyperbilirubinemia Requesting physician: Mark Estrada - History of Present Illness 51-year-old female well-known to the GI service with a past medical history of hepatitis C without treatment, esophageal varices, liver cirrhosis, portal hypertension, ascites, coagulopathy, thrombocytopenia, left breast carcinoma, alcoholism, severe anxiety presents with dry heaves right upper quadrant abdominal pain with known ascites Afebrile. No bleeding. Appointment tomorrow at [facility] for evaluation of left breast carcinoma possible mastectomy. Home medications include Aldactone and Lasix however patient does not take these medications on a regular basis. Presently resting comfortably but over the last few days she's had intermittent right upper quadrant pain with dry heaves no true emesis. Hemoglobin 11. White count 4.9 with 47,000. BUN 18. Creatinine 0.7. Total bilirubin 6.1. AST 39. ALT 20. Alkaline phosphates 90. Review of previous medical records bilirubin averages 1.5-4.7 over the last 2 months. AFP October 2016 3.2. 2 paracentesis since November with negative cytology. 9 L removed in November and 9.5 L removed on December 15. Last chemotherapy September 2016. Ultrasound of the abdomen reported ascites gallbladder sludge, bile duct within normal limits. Review of Systems Constitutional: Denies fever, chills, sweats, weight gain, or loss. HEENT: Negative for migraines, blurred vision or loss, earaches, drainage, tinnitus, oral mucosal lesions, dysphagia, or odynophagia. CARDIAC: Negative for chest pain, arrhythmias, or palpitation. RESPIRATORY: Negative for shortness of breath, hemoptysis, cough, or sputum production. GI: See HPI for pertinent findings. : Negative for hematuria, urgency, frequency, polyuria, or dysuria. GYNc: Negative vaginal discharge. MUSCULOSKELETAL: Negative for muscle aches, swelling, arthritis, and arthralgias. NEUROLOGIC: Negative for stroke or TIA. ENDOCRINE: Negative for thyroid problems. SKIN: Negative for rash or itching. PSYCHIATRIC: Negative history for depression. Anxiety All systems: negative (See HPI) Past Medical History Past Medical History: Cancer, GERD/Reflux, GI Bleed, Hearing Disorder / Deafness , Hypertension, Liver Disease Additional Past Medical History / Comment(s): Hepatitis C, intractable ascities , cirrhosis, pancytopenia, vertigo; "benign abd mass", states has had esophageal banding, lt breast cancer had chemo last on 09-12-16-did not tolerate- completed 3/4 cycles-to be re-evaluated for potential surgery, lt ear hearing loss, multiple upper GI bleeds, vertigo. History of Any Multi-Drug Resistant Organisms: None Reported Past Surgical History: Adenoidectomy, Tonsillectomy Additional Past Surgical History / Comment(s): Paracentesises-last done 12/15/16 , EGD, esophageal banding, rt chest mediport 08-06-16, l breast bx. Past Anesthesia/Blood Transfusion Reactions: No Reported Reaction Additional Past Anesthesia/Blood Transfusion Reaction / Comm: blood transfusions - no reaction Smoking Status: Current every day smoker - Past Family History Mother Family Medical History: Cancer Additional Family Medical History / Comment(s): of lung ca at the age of 59yrs. She was a smoker. Father Family Medical History: Myocardial Infarction ([place]) Additional Family Medical History / Comment(s): from 2nd heart attack at the age of 59yrs. Medications and Allergies Home Medications Medication Instructions Recorded Confirmed Type Furosemide [Lasix] 40 mg PO DAILY 12/26/16 12/29/16 History HYDROcodone/APAP 7.5-325MG [[place] 1 tab PO QID PRN 12/26/16 12/29/16 History 7.5-325] Omeprazole 20 mg PO BID PRN 12/26/16 12/29/16 History Potassium Chloride ER [K-Dur 20] 20 meq PO DAILY #15 tab 12/27/16 12/29/16 Rx Spironolactone 50 mg PO DAILY 12/29/16 12/29/16 History busPIRone HCl [Buspar] 10 mg PO TID 12/29/16 12/29/16 History Allergies Allergy/AdvReac Type Severity Reaction Status Date / Time No Known Allergies Allergy Verified 12/29/16 07:12 Physical Exam Vitals: Vital Signs Temp Pulse Resp BP Pulse Ox 12/30/16 07:00 97.6 F 81 16 119/56 92 L 12/30/16 01:23 98.4 F 92 16 113/55 92 L 12/29/16 20:00 97.3 F L 82 16 118/64 94 L 12/29/16 16:33 97.8 F 88 16 101/64 92 L Intake and Output 12/29/16 12/30/16 12/30/16 22:59 06:59 14:59 Intake Total 880 400 Balance 880 400 Intake: Intake, IV Titration 400 400 Amount Sodium Chloride 0.9% 1, 400 400 000 ml @ 50 mls/hr IV . Q20H STA Rx#:[id number] Other 480 Other: # Voids 3 General appearance: The patient is alert, oriented, in no acute distress. Not visibly jaundice. HET: Head is normocephalic and atraumatic. Pupils are equal and reactive. Sclerae slightly dull. Oropharynx is clear without lesions. Neck: Supple without lymphadenopathy. Trachea midline. Heart: S1 S2. Regular rate and rhythm. Lungs: No crackles or wheezes are heard. Abdomen: Soft, minimal tenderness to the right upper quadrant, distended with moderate ascites, with bowel sounds. No peritoneal signs. No palpable organomegaly or masses. Extremities: Noticeable bilateral palmar erythema. Normal skin color and turgor. No cyanosis, rash, ulceration, clubbing, or edema. Radial and pedal pulses are 2/4 bilaterally. Neurological: No focal deficits. Strength and sensation are grossly intact. Results CBC & Chem 7: 12/29/16 02:14 12/30/16 02:10 Labs: Abnormal Lab Results - Last 24 Hours (Table) 12/29/16 Range/Units 17:24 Potassium 3.3 L (3.5-5.1) mmol/L Microbiology - Last 24 Hours (Table) 12/29/16 03:37 Urine Culture - Preliminary Urine,Voided US - abdomen: report reviewed (Dr. Botello) Assessment and Plan (1) Hyperbilirubinemia Status: Acute (2) Right upper quadrant pain Status: Acute (3) Ascites Status: Acute (4) Cirrhosis Status: Acute (5) Left breast mass Status: Acute (6) Portal hypertension Status: Acute (7) Thrombocytopenia Status: Acute (8) Hepatitis C Status: Chronic Plan: Recommendations: 1. Supportive measures with antinausea medications GI prophylaxis. Diuretics for management of ascites; paracentesis not indicated at this time. Aldactone 50 g daily. Lasix 40 mg daily. Overall her symptoms have improved and she is requesting discharge today. MRI of the liver was discussed in regards to her elevated bilirubin and history of underlying hepatitis C status however she declines and quite honestly it started to cause her increased anxiety. This can be pursued as an outpatient. Again patient is requesting to be discharged so she can follow-up with surgery [facility] for discussion of her breast cancer possible mastectomy. 2. Follow-up in the GI office after discharge for reevaluation. Thank you for this kind referral and the opportunity to participate in the care of your patient. This consultation was discussed with Dr. Botello. The impression and plan of care have been directed as dictated.
--- NOTE | 2016-12-30 21:54 | DS ---
DISCHARGE SUMMARY CHIEF COMPLAINT: Right upper quadrant pain and nausea and vomiting. HISTORY OF PRESENT ILLNESS AND PHYSICAL EXAM: The details of this lady's history and physical can be found in the initial workup. LABORATORY STUDIES: While she was in the hospital, she had laboratory studies, details which can be found in the laboratory section of her chart. COURSE IN HOSPITAL: After admission, she was placed on bed rest, started on intravenous fluids and analgesics. Her pain began to subside. When she went back on diuretics, the liver edema subsided and the pain was less. She was anxious to go home on the and she will be sent home on her usual activity and diet and the only medicine that she has been taking at home was Vicodin. She will be prescribed Aldactone and Lasix. She will be asked to come in the office the next day or 2. FINAL DIAGNOSIS: 1. Right upper quadrant pain. 2. Hepatic edema secondary to hepatitis C. 3. Carcinoma of the left breast. OPERATIONS: None. CONSULTATIONS: None. She is improved. MMODL / NESTORN: [id number] /
== END 2016-12-30 14:30 | disposition home or self-care (01) | DRG 442 ==
LOC: EC 00:27 → 3SUR 06:25
PROVIDERS: ADMIT Family Medicine; ATTEND Family Medicine
DX: B18.2 Chronic viral hepatitis C (principal); R18.8 Other ascites; D61.818 Other pancytopenia; D69.6 Thrombocytopenia, unspecified; C50.912 Malignant neoplasm of unspecified site of left female breast; K76.6 Portal hypertension; R16.0 Hepatomegaly, not elsewhere classified; E86.0 Dehydration; K74.60 Unspecified cirrhosis of liver; R11.2 Nausea with vomiting, unspecified; I10 Essential (primary) hypertension; K21.9 Gastro-esophageal reflux disease without esophagitis; H91.90 Unspecified hearing loss, unspecified ear; F17.200 Nicotine dependence, unspecified, uncomplicated; Z80.1 Family history of malignant neoplasm of trachea, bronchus and lung; Z82.49 Family history of ischemic heart disease and other diseases of the circulatory system; Z91.19 Patient's noncompliance with other medical treatment and regimen; Z79.899 Other long term (current) drug therapy
CPT/HCPCS: 36415; 74000; 76705; 80053; 81001; 82150; 83690; 84132; 85025; 87086; 93005; 96361; 96365; 96375; 96376; 99285

== ENCOUNTER 2017-01-11 15:21 | Emergency (ER) | payer MEDICARE, OTHER ==
[2017-01-11] MEDS ORDERED: SODIUM CHLORIDE 0.9% 500 ML IV STA (16:03)
[2017-01-11] MEDS ORDERED: RX INFO: IV CONTRAST WAS GIVEN 1 EACH MISC MISCELLANE PRN (16:04)
[2017-01-11 16:34] LABS: Anisocytosis Slight; Basophils % (A) 0 %; CH 38.3; CHCM 33.3; Eosinophils % (A) 1 %; HCT 30.7 % (34.0-46.0); HDW 3.47; HGB 10.3 gm/dL (11.4-16.0); Luc # (Auto) 0.12; Luc % (Auto) 2; Lymphocytes # (A) 0.4 k/uL (1.0-4.8); Lymphocytes % (A) 7 %; MCHC 33.6 g/dL (31.0-37.0); MCV 116.1 fL (80.0-100.0); Macrocytosis Marked; Mean Platelet Volume 9.4; Monocytes # (A) 0.2 k/uL (0-1.0); Monocytes % (A) 4 %; Neutrophils % (A) 87 %; Poikilocytosis Slight; RBC 2.64 m/uL (3.80-5.40); RDW 17.3 % (11.5-15.5); WBC 5.8 k/uL (3.8-10.6); WBC (Perox) 5.76
[2017-01-11 16:38] LABS: Appearance,Urine Cloudy (Clear); Bacteria,Urine Occasional /hpf; Bilirubin,Urine 1+ (Negative); Glucose,Urine (UA) Negative (Negative); Ketones,Urine Trace (Negative); Leukocyte Esterase,Urine Negative (Negative); Mucus,Urine Few /hpf; Nitrite,Urine Negative (Negative); Particle Count 15661; Protein,Urine 1+ (Negative); RBC,Urine 1 /hpf (0-5); Specific Gravity,Urine 1.015 (1.001-1.035); Squamous Epithelial Cell,Urine 16 /hpf (0-4); UA Billing (MACRO vs. MICRO) MICRO; WBC,Urine 7 /hpf (0-5)
[2017-01-11 16:49] LABS: ALT 31 U/L (9-52); AST 49 U/L (14-36); Alkaline Phosphatase 117 U/L (38-126); Anion Gap 6 mmol/L; Blood Urea Nitrogen 10 mg/dL (7-17); Calcium 7.9 mg/dL (8.4-10.2); Carbon Dioxide 26 mmol/L (22-30); Chloride 96 mmol/L (98-107); Glucose 94 mg/dL (74-99); Non-African American GFR(MDRD) >60 (>60 ml/min/1.73 sqM); Potassium 3.2 mmol/L (3.5-5.1); Sodium 128 mmol/L (137-145); Total Bilirubin 4.7 mg/dL (0.2-1.3); Total Protein 6.6 g/dL (6.3-8.2)
--- NOTE | 2017-01-11 17:11 | CT ---
EXAMINATION TYPE: CT abdomen pelvis w con DATE OF EXAM: 01/11/2017 COMPARISON: 07/09/2016 HISTORY: Generalized pain with nuasea and distension. History of breast cancer CT DLP: 1182.6 mGycm Automated exposure control for dose reduction was used. TECHNIQUE: Helical acquisition of images was performed from the lung bases through the pelvis. CONTRAST: Performed without Oral Contrast and with IV Contrast, patient injected with 100 mL of Omnipaque 300. FINDINGS: Lung bases are clear of consolidation. There is no pleural effusion. There is massive ascites. Liver is small consistent with cirrhosis. Bile ducts are not dilated. Gallbladder appears normal. There is no evidence of a splenic mass. I see no pancreatic mass. There is no adrenal mass. Kidneys show satisfactory contrast opacification. There is no hydronephrosi s. There is no retroperitoneal adenopathy. I see no bony destructive process. I see no intestinal wall thickening. There are no dilated loops. There is subcutaneous edema over the anterior abdomen. IMPRESSION: THERE IS MASSIVE ASCITES THAT IS NEW COMPARED TO OLD EXAM. CHANGES CONSISTENT WITH SIGNIFICANT HEPATI C CIRRHOSIS. THERE IS CLEARING OF A MASS IN THE MEDIAL LEFT BREAST COMPARED TO OLD CT SCAN. THE ASCITES IS NEW. TH ERE IS CLEARING OF THE ATELECTASIS AT THE LUNG BASES COMPARED TO OLD EXAM. THERE IS NEW SUBCUTANEOUS EDEMA AROUND THE ABDOMEN.
[2017-01-11] MEDS ORDERED: MORPHINE SULFATE 4 MG/ML SYRINGE IVP STA (17:16)
--- NOTE | 2017-01-11 17:16 | ED ---
Abdominal Pain HPI - General Chief Complaint: Abdominal Pain Stated Complaint: not feeling well Time Seen by Provider: 01/11/17 15:39 Source: patient Mode of arrival: ambulatory Limitations: no limitations - History of Present Illness Initial Comments: 51-year-old female with past medical history of breast cancer, hepatitis C with liver failure and intractable ascites, cirrhosis, pancytopenia , GI bleed, left hearing loss, vertigo presented for evaluation of right upper quadrant abdominal pain since yesterday. She states that she chronically has pain to this area however this seemed worse than usual. She states she has been unable to tolerate by mouth intake due to her pain and nausea and vomiting. She sees Dr. Estrada as her PCP and Dr. Joseph is her GI specialist. She is only had 2 paracentesis, the last one being on 12/15/2016 related to cough 9 L and the previous one in November also removing 9 L. - Related Data Home Medications Medication Instructions Recorded Confirmed HYDROcodone/APAP 5-325MG [[place] 1 tab PO QID PRN 01/11/17 01/11/17 5-325] Previous Rx's Medication Instructions Recorded HYDROcodone/APAP 5-325MG [[place] 1 - 2 tab PO Q6HR PRN #14 tab 01/11/17 5-325] Allergies Allergy/AdvReac Type Severity Reaction Status Date / Time No Known Allergies Allergy Verified 01/11/17 15:40 Review of Systems ROS Statement: Those systems with pertinent positive or pertinent negative responses have been documented in the HPI. ROS Other: All systems not noted in ROS Statement are negative. Constitutional: Denies: fever, chills, weakness, night sweats Eyes: Denies: eye discharge, vision change ENT: Denies: dental pain, hearing loss Respiratory: Denies: cough, dyspnea, hemoptysis Cardiovascular: Denies: chest pain, dyspnea on exertion Endocrine: Reports: fatigue, heat or cold intolerance Gastrointestinal: Reports: abdominal pain, nausea, diarrhea. Denies: vomiting, hematemesis, hematochezia Genitourinary: Reports: hematuria. Denies: dysuria Musculoskeletal: Denies: back pain, arthralgia, myalgia Skin: Denies: rash, lesions Neurological: Denies: headache, weakness Psychiatric: Denies: anxiety, depression Hematological/Lymphatic: Denies: easy bleeding, easy bruising Past Medical History Past Medical History: Cancer, GERD/Reflux, GI Bleed, Hearing Disorder / Deafness , Hypertension, Liver Disease Additional Past Medical History / Comment(s): Hepatitis C, intractable ascities , cirrhosis, pancytopenia, vertigo; "benign abd mass", states has had esophageal banding, lt breast cancer had chemo last on 09-12-16-did not tolerate- completed 3/4 cycles-to be re-evaluated for potential surgery, lt ear hearing loss, multiple upper GI bleeds, vertigo. History of Any Multi-Drug Resistant Organisms: None Reported Past Surgical History: Adenoidectomy, Tonsillectomy Additional Past Surgical History / Comment(s): Paracentesises-last done 12/15/16 , EGD, esophageal banding, rt chest mediport 08-06-16, l breast bx. Past Anesthesia/Blood Transfusion Reactions: No Reported Reaction Additional Past Anesthesia/Blood Transfusion Reaction / Comment(s): blood transfusions- no reaction Past Psychological History: Anxiety Smoking Status: Current every day smoker Past Alcohol Use History: None Reported Past Drug Use History: None Reported - Past Family History Mother Family Medical History: Cancer Additional Family Medical History / Comment(s): of lung ca at the age of 59yrs. She was a smoker. Father Family Medical History: Myocardial Infarction ([place]) Additional Family Medical History / Comment(s): from 2nd heart attack at the age of 59yrs. General Exam Limitations: no limitations General appearance: alert, in no apparent distress Head exam: Present: atraumatic, normocephalic, normal inspection Eye exam: Present: normal appearance, EOMI, scleral icterus (very mild) ENT exam: Present: normal exam, normal oropharynx Neck exam: Present: normal inspection. Absent: tenderness Respiratory exam: Present: normal lung sounds bilaterally. Absent: respiratory distress, wheezes, rales Cardiovascular Exam: Present: normal rhythm, tachycardia GI/Abdominal exam: Present: distended, tenderness, other (significant ascites). Absent: guarding, rebound, rigid Rectal exam: Present: deferred Extremities exam: Present: normal inspection, full ROM, normal capillary refill. Absent: tenderness, pedal edema, joint swelling, calf tenderness Back exam: Present: normal inspection, full ROM Neurological exam: Present: alert, oriented X3, CN II-XII intact Psychiatric exam: Present: normal affect, normal mood Skin exam: Present: warm, dry, intact, normal color. Absent: rash Course Vital Signs 01/11/17 01/11/17 01/11/17 15:27 18:46 18:56 Temperature 98.6 F Pulse Rate 114 H 102 H 82 Respiratory 18 16 16 Rate Blood Pressure 145/61 139/62 124/59 O2 Sat by Pulse 98 97 99 Oximetry 01/11/17 01/11/17 19:21 20:26 Temperature 98.2 F Pulse Rate 96 99 Respiratory 18 18 Rate Blood Pressure 135/84 112/72 O2 Sat by Pulse 98 97 Oximetry Medical Decision Making - Medical Decision Making 51-year-old female with past medical is noted above presented for evaluation of acute on chronic right upper quadrant abdominal pain. States this is been present since yesterday without any relief. Physical examination she is a cachectic female with significant ascites and fluid wave. Abdomen is only mildly tender to palpation however there are no peritoneal signs of guarding, rigidity, or rebound. Lungs are clear to auscultation bilaterally and there is no lower extremity edema. Although this is very similar to her chronic pain will obtain a CT abdomen and pelvis to rule out any underlying or insidious etiology. Also obtain labs and provide IV fluids and pain control. Labs revealed multiple abnormalities that are consistent with her previous labs which include a formal cytopenia, mildly depressed hemoglobin, hyponatremia, hypokalemia, and a urine that is positive for WBCs however there are significant skins epithelial cells. Given that she has no urinary tract symptoms we'll not treat for urinary tract infection. CT abdomen and pelvis shows significant ascites that is increased from previous studies as well as clearing of a mass in the medial left breast compared to old computed tomography scan. There is also clearing of atelectasis at the lung bases compared to the old study. The patient was reevaluated and had near resolution of all her symptoms. She was informed of all these results and through shared decision making she requested that she be discharged. The patient was offered admission but stated that she had a birthday republican for her grand daughter tomorrow that she would not like to miss. She was advised to not only follow-up with her primary care physician but also to reach out to her GI specialist and schedule an outpatient paracentesis. A lengthy discussion concerning returned symptoms was had. The patient acknowledged an understanding of all information provided and agreed with this plan of care. - Lab Data Result diagrams: 01/11/17 16:15 01/11/17 16:15 Lab Results 01/11/17 01/11/17 01/11/17 Range/Units 16:15 16:15 16:15 WBC 5.8 (3.8-10.6) k/uL RBC 2.64 L (3.80-5.40) m/uL Hgb 10.3 L (11.4-16.0) gm/dL Hct 30.7 L (34.0-46.0) % MCV 116.1 H (80.0-100.0) fL MCH 39.0 H (25.0-35.0) pg MCHC 33.6 (31.0-37.0) g/dL RDW 17.3 H (11.5-15.5) % Plt Count 76 L D (150-450) k/uL Neutrophils % 87 % Lymphocytes % 7 % Monocytes % 4 % Eosinophils % 1 % Basophils % 0 % Neutrophils # 5.0 (1.3-7.7) k/uL Lymphocytes # 0.4 L (1.0-4.8) k/uL Monocytes # 0.2 (0-1.0) k/uL Eosinophils # 0.0 (0-0.7) k/uL Basophils # 0.0 (0-0.2) k/uL Manual Slide Review Performed Polychromasia Present Poikilocytosis Slight Anisocytosis Slight Macrocytosis Marked Sodium 128 L (137-145) mmol/L Potassium 3.2 L (3.5-5.1) mmol/L Chloride 96 L (98-107) mmol/L Carbon Dioxide 26 (22-30) mmol/L Anion Gap 6 mmol/L BUN 10 (7-17) mg/dL Creatinine 0.50 L (0.52-1.04) mg/dL Est GFR (MDRD) Af Amer >60 (>60 ml/min/1.73 sqM) Est GFR (MDRD) Non-Af >60 (>60 ml/min/1.73 sqM) Glucose 94 (74-99) mg/dL Plasma Lactic Acid [place]ri[place] 2.0 (0.7-2.0) mmol/L Calcium 7.9 L (8.4-10.2) mg/dL Total Bilirubin 4.7 H (0.2-1.3) mg/dL AST 49 H (14-36) U/L ALT 31 (9-52) U/L Alkaline Phosphatase 117 (38-126) U/L Troponin I (0.000-0.034) ng/mL NT-Pro-B Natriuret Pep pg/mL Total Protein 6.6 (6.3-8.2) g/dL Albumin 2.4 L (3.5-5.0) g/dL Lipase 110 (23-300) U/L Urine Color Urine Appearance (Clear) Urine pH (5.0-8.0) Ur Specific [place] (1.001-1.035) Urine Protein (Negative) Urine Glucose (UA) (Negative) Urine Ketones (Negative) Urine Blood (Negative) Urine Nitrite (Negative) Urine Bilirubin (Negative) Urine Urobilinogen (<2.0) mg/dL Ur Leukocyte Esterase (Negative) Urine RBC (0-5) /hpf Urine WBC (0-5) /hpf Ur Squamous Epith Cells (0-4) /hpf Urine Bacteria (None) /hpf Hyaline Casts (0-2) /lpf Urine Mucus (None) /hpf 01/11/17 01/11/17 01/11/17 Range/Units 16:15 16:15 16:15 WBC (3.8-10.6) k/uL RBC (3.80-5.40) m/uL Hgb (11.4-16.0) gm/dL Hct (34.0-46.0) % MCV (80.0-100.0) fL MCH (25.0-35.0) pg MCHC (31.0-37.0) g/dL RDW (11.5-15.5) % Plt Count (150-450) k/uL Neutrophils % % Lymphocytes % % Monocytes % % Eosinophils % % Basophils % % Neutrophils # (1.3-7.7) k/uL Lymphocytes # (1.0-4.8) k/uL Monocytes # (0-1.0) k/uL Eosinophils # (0-0.7) k/uL Basophils # (0-0.2) k/uL Manual Slide Review Polychromasia Poikilocytosis Anisocytosis Macrocytosis Sodium (137-145) mmol/L Potassium (3.5-5.1) mmol/L Chloride (98-107) mmol/L Carbon Dioxide (22-30) mmol/L Anion Gap mmol/L BUN (7-17) mg/dL Creatinine (0.52-1.04) mg/dL Est GFR (MDRD) Af Amer (>60 ml/min/1.73 sqM) Est GFR (MDRD) Non-Af (>60 ml/min/1.73 sqM) Glucose (74-99) mg/dL Plasma Lactic Acid [place] (0.7-2.0) mmol/L Calcium (8.4-10.2) mg/dL Total Bilirubin (0.2-1.3) mg/dL AST (14-36) U/L ALT (9-52) U/L Alkaline Phosphatase (38-126) U/L Troponin I 0.018 (0.000-0.034) ng/mL NT-Pro-B Natriuret Pep 901 pg/mL Total Protein (6.3-8.2) g/dL Albumin (3.5-5.0) g/dL Lipase (23-300) U/L Urine Color Light Brown Urine Appearance Cloudy H (Clear) Urine pH 6.0 (5.0-8.0) Ur Specific [place] 1.015 (1.001-1.035) Urine Protein 1+ H (Negative) Urine Glucose (UA) Negative (Negative) Urine Ketones Trace H (Negative) Urine Blood Negative (Negative) Urine Nitrite Negative (Negative) Urine Bilirubin 1+ H (Negative) Urine Urobilinogen 4.0 (<2.0) mg/dL Ur Leukocyte Esterase Negative (Negative) Urine RBC 1 (0-5) /hpf Urine WBC 7 H (0-5) /hpf Ur Squamous Epith Cells 16 H (0-4) /hpf Urine Bacteria Occasional H (None) /hpf Hyaline Casts 4 H (0-2) /lpf Urine Mucus Few H (None) /hpf 01/11/17 Range/Units 19:29 WBC (3.8-10.6) k/uL RBC (3.80-5.40) m/uL Hgb (11.4-16.0) gm/dL Hct (34.0-46.0) % MCV (80.0-100.0) fL MCH (25.0-35.0) pg MCHC (31.0-37.0) g/dL RDW (11.5-15.5) % Plt Count (150-450) k/uL Neutrophils % % Lymphocytes % % Monocytes % % Eosinophils % % Basophils % % Neutrophils # (1.3-7.7) k/uL Lymphocytes # (1.0-4.8) k/uL Monocytes # (0-1.0) k/uL Eosinophils # (0-0.7) k/uL Basophils # (0-0.2) k/uL Manual Slide Review Polychromasia Poikilocytosis Anisocytosis Macrocytosis Sodium (137-145) mmol/L Potassium (3.5-5.1) mmol/L Chloride (98-107) mmol/L Carbon Dioxide (22-30) mmol/L Anion Gap mmol/L BUN (7-17) mg/dL Creatinine (0.52-1.04) mg/dL Est GFR (MDRD) Af Amer (>60 ml/min/1.73 sqM) Est GFR (MDRD) Non-Af (>60 ml/min/1.73 sqM) Glucose (74-99) mg/dL Plasma Lactic Acid [place] (0.7-2.0) mmol/L Calcium (8.4-10.2) mg/dL Total Bilirubin (0.2-1.3) mg/dL AST (14-36) U/L ALT (9-52) U/L Alkaline Phosphatase (38-126) U/L Troponin I 0.013 (0.000-0.034) ng/mL NT-Pro-B Natriuret Pep pg/mL Total Protein (6.3-8.2) g/dL Albumin (3.5-5.0) g/dL Lipase (23-300) U/L Urine Color Urine Appearance (Clear) Urine pH (5.0-8.0) Ur Specific [place] (1.001-1.035) Urine Protein (Negative) Urine Glucose (UA) (Negative) Urine Ketones (Negative) Urine Blood (Negative) Urine Nitrite (Negative) Urine Bilirubin (Negative) Urine Urobilinogen (<2.0) mg/dL Ur Leukocyte Esterase (Negative) Urine RBC (0-5) /hpf Urine WBC (0-5) /hpf Ur Squamous Epith Cells (0-4) /hpf Urine Bacteria (None) /hpf Hyaline Casts (0-2) /lpf Urine Mucus (None) /hpf 01/11/17 19:27 EKG shows normal sinus rhythm with a ventricular rate of 99. Disposition Clinical Impression: Abdominal pain, Ascites, Hyponatremia Disposition: HOME SELF-CARE Condition: Stable Instructions: Abdominal Pain (ED) Additional Instructions: Please use medication as discussed. Please follow up with family doctor if symptoms have not improved over the next two days. Please return to the emergency room if your symptoms increase or worsen or for any other concerns. Prescriptions: HYDROcodone/APAP 5-325MG [[place] 5-325] 1 - 2 tab PO Q6HR PRN #14 tab PRN Reason: Analgesia Referrals: Mark Estrada MD [Primary Care Provider] - 1-2 days Time of Disposition: 21:06
[2017-01-11 17:23] LABS: Manual Review Performed; Polychromasia Present
[2017-01-11 19:24] VITALS: RESP 18
[2017-01-11] MEDS ORDERED: HYDROmorphone 1 MG/ML 1 ML SYRINGE IVP STA (20:30)
[2017-01-11 21:34] VITALS: BP 125/58; PULSE 102; TEMP 97.4
== END 2017-01-11 21:37 | disposition home or self-care (01) ==
LOC: EC 15:21
DX: R18.8 Other ascites (principal); E87.1 Hypo-osmolality and hyponatremia; F17.200 Nicotine dependence, unspecified, uncomplicated; Z85.3 Personal history of malignant neoplasm of breast; Z86.19 Personal history of other infectious and parasitic diseases; Z87.19 Personal history of other diseases of the digestive system; Z98.890 Other specified postprocedural states
CPT/HCPCS: 99285 ×2; 96365 ×2; 96375 ×3; 36415; 93005; 83880; 80053; 83605; 83690; 84484; 85025; 81001; 74177; J2270; J1170; Q9967

== ENCOUNTER 2017-01-15 14:26 | Inpatient (IN) | payer MEDICARE, OTHER ==
[2017-01-15] MEDS ORDERED: ONDANSETRON 4 MG/2 ML VIAL IVP STA (15:13)
[2017-01-15] MEDS ORDERED: MORPHINE SULFATE 4 MG/ML SYRINGE IVP STA (15:13)
[2017-01-15] MEDS ORDERED: MORPHINE SULFATE 2 MG/ML SYRINGE IVP ONE (15:30)
--- NOTE | 2017-01-15 16:03 | XR ---
EXAMINATION TYPE: XR chest 2V DATE OF EXAM: 01/15/2017 COMPARISON: 10/20/2016 HISTORY: Shortness of breath TECHNIQUE: Frontal and lateral views of the chest are obtained. FINDINGS: Scattered senescent parenchymal changes noted. Central venous line unchanged in position. No evidence for infiltrate. No evidence for atelectasis. Heart size is stable. Mediastinal structures are stable and grossly unremarkable. No evidence for hilar prominence. Degenerative changes dorsal spine. IMPRESSION: 1. No evidence for acute pulmonary disease.
--- NOTE | 2017-01-15 16:03 | XR ---
EXAMINATION TYPE: XR KUB DATE OF EXAM: 01/15/2017 COMPARISON: NONE HISTORY: Pain TECHNIQUE: Single supine KUB image of the abdomen is obtained FINDINGS: Small bowel demonstrates no evidence for dilatation or air fluid levels. Gas and fecal material is seen in non-distended colon. No convincing evidence for pneumoperitoneum. No unusual calcifications. The lung bases are clear. The osseous structures are intact. IMPRESSION: 1. Overall nonobstructive bowel gas pattern.
[2017-01-15 16:12] LABS: ALT 30 U/L (9-52); AST 48 U/L (14-36); Alkaline Phosphatase 102 U/L (38-126); Amylase <30 U/L (30-110); Anion Gap 5 mmol/L; Anisocytosis Slight; Basophils % (A) 0 %; Blood Urea Nitrogen 11 mg/dL (7-17); CH 39.3; CHCM 33.9; Calcium 7.7 mg/dL (8.4-10.2); Carbon Dioxide 27 mmol/L (22-30); Chloride 97 mmol/L (98-107); Eosinophils % (A) 1 %; Glucose 98 mg/dL (74-99); HCT 28.9 % (34.0-46.0); HDW 3.48; HGB 9.7 gm/dL (11.4-16.0); Luc # (Auto) 0.11; Luc % (Auto) 4; Lymphocytes # (A) 0.3 k/uL (1.0-4.8); Lymphocytes % (A) 10 %; MCH 39.3 pg (25.0-35.0); MCHC 33.5 g/dL (31.0-37.0); MCV 117.3 fL (80.0-100.0); Macrocytosis Marked; Mean Platelet Volume 8.7; Monocytes # (A) 0.3 k/uL (0-1.0); Monocytes % (A) 10 %; Neutrophils % (A) 75 %; Non-African American GFR(MDRD) >60 (>60 ml/min/1.73 sqM); Poikilocytosis Slight; Potassium 3.4 mmol/L (3.5-5.1); RBC 2.46 m/uL (3.80-5.40); Sodium 129 mmol/L (137-145); Total Bilirubin 3.8 mg/dL (0.2-1.3); WBC 2.7 k/uL (3.8-10.6); WBC (Perox) 2.67
[2017-01-15 16:13] LABS: INR 1.3 (<1.2); Partial Thromboplastin Time 30.2 sec (22.0-30.0); Prothrombin Time 13.1 sec (9.0-12.0)
[2017-01-15 16:32] LABS: Manual Review Performed; Ovalocytes Present; Polychromasia Present; Spherocytes Present
[2017-01-15] MEDS ORDERED: HYDROmorphone 0.5 MG/0.5 ML SYRINGE IVP PRN (16:57)
[2017-01-15] MEDS ORDERED: NALOXONE 0.4 MG/ML 1 ML VIAL IV PRN (16:57)
--- NOTE | 2017-01-15 16:57 | ED ---
Abdominal Pain HPI - General Chief Complaint: Abdominal Pain Stated Complaint: abdominal & flank pain Time Seen by Provider: 01/15/17 14:49 Source: patient, RN notes reviewed Mode of arrival: wheelchair Limitations: no limitations - History of Present Illness Initial Comments: This a 51-year-old female presents emergency Department chief complaint abdominal swelling. Patient is she has cirrhosis and severe ascites. Patient has had paracentesis twice. Patient states most recent was last month. Patient states that she doesn't she's gained 15-20 pounds. Patient denies any chest pain or shortness of breath. She states that she has a history of hep C and liver cirrhosis secondary to chemotherapy for breast cancer. Patient states that she currently is not any fever for breast cancer. Patient denies any nausea vomiting diarrhea constipation. - Related Data Home Medications Medication Instructions Recorded Confirmed Furosemide [Lasix] 40 mg PO DAILY 01/15/17 01/15/17 Previous Rx's Medication Instructions Recorded HYDROcodone/APAP 5-325MG [[place] 1 - 2 tab PO Q6HR PRN #14 tab 01/11/17 5-325] Allergies Allergy/AdvReac Type Severity Reaction Status Date / Time No Known Allergies Allergy Verified 01/15/17 15:49 Review of Systems ROS Statement: Those systems with pertinent positive or pertinent negative responses have been documented in the HPI. ROS Other: All systems not noted in ROS Statement are negative. Past Medical History Past Medical History: Cancer, GERD/Reflux, GI Bleed, Hearing Disorder / Deafness , Hypertension, Liver Disease Additional Past Medical History / Comment(s): Hepatitis C, intractable ascities , cirrhosis, pancytopenia, vertigo; "benign abd mass", states has had esophageal banding, lt breast cancer had chemo last on 09-12-16-did not tolerate- completed 3/4 cycles-to be re-evaluated for potential surgery, lt ear hearing loss, multiple upper GI bleeds, vertigo. History of Any Multi-Drug Resistant Organisms: None Reported Past Surgical History: Adenoidectomy, Tonsillectomy Additional Past Surgical History / Comment(s): Paracentesises-last done 12/15/16 , EGD, esophageal banding, rt chest mediport 08-06-16, l breast bx. Past Anesthesia/Blood Transfusion Reactions: No Reported Reaction Additional Past Anesthesia/Blood Transfusion Reaction / Comment(s): blood transfusions- no reaction Past Psychological History: Anxiety Smoking Status: Current every day smoker Past Alcohol Use History: None Reported Past Drug Use History: None Reported - Past Family History Mother Family Medical History: Cancer Additional Family Medical History / Comment(s): of lung ca at the age of 59yrs. She was a smoker. Father Family Medical History: Myocardial Infarction ([place]) Additional Family Medical History / Comment(s): from 2nd heart attack at the age of 59yrs. General Exam Limitations: no limitations General appearance: alert, in no apparent distress Head exam: Present: atraumatic, normocephalic, normal inspection Respiratory exam: Present: normal lung sounds bilaterally. Absent: respiratory distress, wheezes, rales, rhonchi, stridor Cardiovascular Exam: Present: regular rate, normal rhythm, normal heart sounds. Absent: systolic murmur, diastolic murmur, rubs, gallop, clicks GI/Abdominal exam: Present: soft, distended (Severe), tenderness (Moderate diffuse), normal bowel sounds, other (Fluid wave noted). Absent: guarding, rebound, rigid Back exam: Absent: CVA tenderness (R), CVA tenderness (L) Course Vital Signs 01/15/17 14:43 Temperature 98.0 F Pulse Rate 83 Respiratory 20 Rate Blood Pressure 119/56 O2 Sat by Pulse 100 Oximetry Medical Decision Making - Lab Data Result diagrams: 01/15/17 15:40 01/15/17 15:40 Lab Results 01/15/17 01/15/17 01/15/17 Range/Units 15:40 15:40 15:40 WBC 2.7 L (3.8-10.6) k/uL RBC 2.46 L (3.80-5.40) m/uL Hgb 9.7 L (11.4-16.0) gm/dL Hct 28.9 L (34.0-46.0) % MCV 117.3 H (80.0-100.0) fL MCH 39.3 H (25.0-35.0) pg MCHC 33.5 (31.0-37.0) g/dL RDW 18.0 H (11.5-15.5) % Plt Count 72 L (150-450) k/uL Neutrophils % 75 % Lymphocytes % 10 % Monocytes % 10 % Eosinophils % 1 % Basophils % 0 % Neutrophils # 2.0 (1.3-7.7) k/uL Lymphocytes # 0.3 L (1.0-4.8) k/uL Monocytes # 0.3 (0-1.0) k/uL Eosinophils # 0.0 (0-0.7) k/uL Basophils # 0.0 (0-0.2) k/uL Manual Slide Review Performed Polychromasia Present Poikilocytosis Slight Anisocytosis Slight Macrocytosis Marked Spherocytes Present Ovalocytes Present PT 13.1 H (9.0-12.0) sec INR 1.3 H (<1.2) APTT 30.2 H (22.0-30.0) sec Sodium 129 L (137-145) mmol/L Potassium 3.4 L (3.5-5.1) mmol/L Chloride 97 L (98-107) mmol/L Carbon Dioxide 27 (22-30) mmol/L Anion Gap 5 mmol/L BUN 11 (7-17) mg/dL Creatinine 0.54 (0.52-1.04) mg/dL Est GFR (MDRD) Af Amer >60 (>60 ml/min/1.73 sqM) Est GFR (MDRD) Non-Af >60 (>60 ml/min/1.73 sqM) Glucose 98 (74-99) mg/dL Calcium 7.7 L (8.4-10.2) mg/dL Total Bilirubin 3.8 H (0.2-1.3) mg/dL AST 48 H (14-36) U/L ALT 30 (9-52) U/L Alkaline Phosphatase 102 (38-126) U/L Total Protein 6.0 L (6.3-8.2) g/dL Albumin 2.2 L (3.5-5.0) g/dL Amylase <30 L (30-110) U/L Lipase 98 (23-300) U/L Disposition Clinical Impression: Ascites, Abdominal pain, Anemia Disposition: ADMITTED IP TO THIS [facility] Condition: Fair Referrals: Mark Estrada MD [Primary Care Provider] - 1-2 days
[2017-01-15] MEDS ORDERED: HYDROcodone/APAP 5-325MG 1 EACH TAB PO PRN (19:41)
[2017-01-15] MEDS: MORPHINE SULFATE 4 MG/ML SYRINGE IVP PRN (20:03)
[2017-01-15] MEDS: HYDROcodone/APAP 5-325MG 1 EACH TAB PO PRN (21:31)
[2017-01-16] MEDS: ONDANSETRON 4 MG/2 ML VIAL IVP PRN ×3 (00:07→23:01)
[2017-01-16] MEDS: MORPHINE SULFATE 4 MG/ML SYRINGE IVP PRN ×4 (00:10→12:06)
[2017-01-16] MEDS: HYDROcodone/APAP 5-325MG 1 EACH TAB PO PRN ×4 (02:44→23:01)
[2017-01-16 07:20] LABS: Appearance,Urine Cloudy (Clear); Bacteria,Urine Occasional /hpf; Bilirubin,Urine 1+ (Negative); Glucose,Urine (UA) Negative (Negative); Ketones,Urine Negative (Negative); Leukocyte Esterase,Urine Negative (Negative); Mucus,Urine Many /hpf; Nitrite,Urine Negative (Negative); Particle Count 35942; Protein,Urine 1+ (Negative); RBC,Urine 1 /hpf (0-5); Specific Gravity,Urine 1.029 (1.001-1.035); Squamous Epithelial Cell,Urine 14 /hpf (0-4); UA Billing (MACRO vs. MICRO) MICRO; WBC,Urine 7 /hpf (0-5)
[2017-01-16] MEDS: FUROSEMIDE 40 MG TAB PO SCH (09:12)
[2017-01-16] MEDS: MAG HYDROX/AL HYDROX/SIMETH 30 ML CUP PO PRN ×2 (10:42→20:06)
[2017-01-16] MEDS ORDERED: MORPHINE SULFATE 2 MG/ML SYRINGE ONE (15:56)
[2017-01-16] MEDS: PANTOPRAZOLE 40 MG TABLET PO SCH (16:03)
--- NOTE | 2017-01-16 17:54 | US ---
EXAMINATION TYPE: US paracentesis abd w/image DATE OF EXAM: 01/16/2017 COMPARISON: NONE HISTORY: Ascites. PROCEDURE: Maximal barrier technique was utilized. The skin overlying a suitable pocket of fluid was localized with ultrasound and the overlying skin was prepped and draped. Ultrasound was utilized with sterile technique. Lidocaine was used for local anesthesia and a skin adela made with a scalpel. Catheter was advanced under direct ultrasound guidance into a suitable pocket of fluid and approximately 11.4 lite rs of serous fluid were removed. Catheter was withdrawn and hemostasis achieved. There is no immedi ate complication; the patient is discharged in stable condition. IMPRESSION: STATUS POST ULTRASOUND GUIDED PARACENTESIS FOR PALLIATION OF ASCITES. THIS PROCEDURE WA S PERFORMED BY THE UNDERSIGNED.
[2017-01-16] MEDS: MORPHINE SULFATE 2 MG/ML SYRINGE IVP PRN (20:14)
[2017-01-17] MEDS: MORPHINE SULFATE 2 MG/ML SYRINGE IVP PRN ×4 (00:25→14:07)
[2017-01-17] MEDS: HYDROcodone/APAP 5-325MG 1 EACH TAB PO PRN ×2 (06:30→12:32)
[2017-01-17] MEDS: FUROSEMIDE 40 MG TAB PO SCH (09:19)
[2017-01-17] MEDS: PANTOPRAZOLE 40 MG TABLET PO SCH ×2 (09:19→16:21)
[2017-01-17] MEDS: MAG HYDROX/AL HYDROX/SIMETH 30 ML CUP PO PRN (12:35)
--- NOTE | 2017-01-17 13:11 | HP ---
HISTORY AND PHYSICAL DATE OF ADMISSION: 01/15/17 CHIEF COMPLAINT: Abdominal pain and distention with ascites. HISTORY OF PRESENT ILLNESS: This is another admission for this 51-year-old, white female, with end-stage cirrhosis secondary to hepatitis C. She also has CA of the breast. She came in to the emergency room with abdominal pain and significant abdominal ascites and was admitted. She has had no vomiting, fever or chills, etc. REVIEW OF SYSTEMS: Is otherwise unremarkable. PAST MEDICAL HISTORY: Past medical history, family history, social history, are unchanged. She is essentially only taking Vicodin at this time. PHYSICAL EXAMINATION: Blood pressure is 103/58 with a pulse of 104, respirations of 34 and she is afebrile. In general she appeared to be pale and chronically ill. Skin was dry. Head ears, eyes, nose, mouth, and throat were normal. Neck veins not distended. The chest is clear. Cardiac exam demonstrates slight tachycardia. Abdomen is protuberant with significant ascites. She had generalized tenderness. Bowel sounds are heard. Extremities are normal. Neurologically she is intact. IMPRESSION: 1. Abdominal pain, secondary to intractable ascites. 2. Cirrhosis secondary to hepatitis C. 3. Carcinoma of the breast. PLAN: 1. Bed rest. 2. IV fluids. 3. Analgesics. 4. Consult with Interventional Radiology for paracentesis. MMODL / IJN: [id number] /
[2017-01-17 16:33] VITALS: PULSE 74; RESP 16; TEMP 97.6
[2017-01-17 16:36] VITALS: BP 100/49
--- NOTE | 2017-01-17 17:38 | P.DS ---
Providers Date of admission: 01/15/17 16:57 Attending physician: Mark Estrada Primary care physician: Mark Estrada [facility] Course: This 57-year-old woman with a past medical history multiple medical problems being followed by Dr. Estrada in the outpatient setting was admitted with intractable ascites. Patient also had abdominal pain Patient underwent abdominal paracentesis. Patient improved significantly. Patient is discharged in a stable condition with guarded prognosis with further plans to follow-up with Dr. Estrada closely in the outpatient setting. On exam vitals are stable. Cardio S1 and S2 normal. Respirator system clear to auscultation. Abdomen soft ascites present. Final diagnosis 1. Intractable ascites and abdominal pain status post abdominal paracentesis. Secondary to cirrhosis liver. 2. Cirrhosis liver secondary to hepatitis C. 3. Carcinoma the breast. Patient Condition at Discharge: Fair Plan - Discharge Summary New Discharge Prescriptions: New Multivitamins, Thera [Multivitamin] 1 tab PO DAILY #30 tablet Spironolactone [Aldactone] 50 mg PO BID #60 tab Continue HYDROcodone/APAP 5-325MG [[place] 5-325] 1 - 2 tab PO Q6HR PRN #14 tab PRN Reason: Analgesia Furosemide [Lasix] 40 mg PO DAILY Discharge Medication List HYDROcodone/APAP 5-325MG [[place] 5-325] 1 - 2 tab PO Q6HR PRN #14 tab 01/11/17 [ Rx] Furosemide [Lasix] 40 mg PO DAILY 01/15/17 [History] Multivitamins, Thera [Multivitamin] 1 tab PO DAILY #30 tablet 01/17/17 [Rx] Spironolactone [Aldactone] 50 mg PO BID #60 tab 01/17/17 [Rx] Follow up Appointment(s)/Referral(s): Mark Estrada MD [Primary Care Provider] - 1-2 days (Patient to call Dr. Estrada's office Thursday morning to schedule follow up appointment. The office is closed at time of discharge.) [facility], [NON-STAFF] - 1 Week Ambulatory/Diagnostic Orders: Complete Blood Count w/diff [LAB.AMB] Location: Determined By Patient Patient Instructions/Handouts: Spironolactone (By mouth), Multivitamins, Adult Formula (By mouth), Acute Abdominal Pain (DC), Ascites (DC), Anemia (DC) Activity/Diet/Wound Care/Special Instructions: diet hepatic act limited till f/u Discharge Disposition: HOME SELF-CARE
--- NOTE | 2017-01-20 17:27 | DS ---
DISCHARGE SUMMARY CHIEF COMPLAINT: Abdominal pain and ascites. HISTORY OF PRESENT ILLNESS AND PHYSICAL EXAM: Details of this lady's history and physical can be found in the initial workup. LABORATORY STUDIES: While she was in the hospital she had laboratory studies, details of which can be found in the laboratory section of her chart. COURSE IN HOSPITAL: After admission, she was placed on bedrest and started on intravenous fluids and analgesics. She was seen by Interventional Radiology and underwent paracentesis with a great deal of relief. After that, it was felt she could return home on her usual diet and activity and medication which largely is for pain. She will be seen in the office in 2-3 days, but she never comes in. FINAL DIAGNOSIS: 1. Intractable abdominal pain secondary to intractable ascites. 2. Chronic hepatitis C with cirrhosis. 3. Carcinoma of the breast. OPERATIONS: Paracentesis. CONSULTATIONS: Interventional radiology. She is improved. MMODL / IJN: [id number] /
== END 2017-01-17 16:55 | disposition home or self-care (01) | DRG 433 ==
LOC: EC 14:26 → 5ONC 16:57
PROVIDERS: ADMIT Family Medicine; ATTEND Family Medicine
PROC: 0W9G3ZZ Drainage of Peritoneal Cavity, Percutaneous Approach (ICD-10-PCS; principal; 2017-01-16)
DX: K74.69 Other cirrhosis of liver (principal); R18.8 Other ascites; C50.919 Malignant neoplasm of unspecified site of unspecified female breast; B18.2 Chronic viral hepatitis C; D64.9 Anemia, unspecified; I10 Essential (primary) hypertension; F17.200 Nicotine dependence, unspecified, uncomplicated; H91.90 Unspecified hearing loss, unspecified ear; K21.9 Gastro-esophageal reflux disease without esophagitis; Z80.1 Family history of malignant neoplasm of trachea, bronchus and lung; Z82.49 Family history of ischemic heart disease and other diseases of the circulatory system
CPT/HCPCS: 36415; 49083; 71020; 74000; 80053; 81001; 82150; 83690; 85025; 85610; 85730; 96374; 96375; 99285

== ENCOUNTER 2017-01-26 02:01 | Emergency (ER) | payer MEDICARE, OTHER ==
[2017-01-26] MEDS ORDERED: SODIUM CHLORIDE 0.9% 500 ML IV STA (02:07)
[2017-01-26] MEDS ORDERED: ONDANSETRON 4 MG/2 ML VIAL IVP STA (02:07)
[2017-01-26 02:55] LABS: Anisocytosis Slight; Basophils # (A) 0.1 k/uL (0-0.2); Basophils % (A) 2 %; CH 40.5; CHCM 33.6; Eosinophils # (A) 0.1 k/uL (0-0.7); Eosinophils % (A) 2 %; HCT 30.1 % (34.0-46.0); HDW 3.71; HGB 9.8 gm/dL (11.4-16.0); Luc # (Auto) 0.11; Luc % (Auto) 4; Lymphocytes # (A) 0.3 k/uL (1.0-4.8); Lymphocytes % (A) 14 %; MCH 39.8 pg (25.0-35.0); MCHC 32.6 g/dL (31.0-37.0); Macrocytosis Marked; Mean Platelet Volume 9.3; Monocytes # (A) 0.3 k/uL (0-1.0); Monocytes % (A) 11 %; Neutrophils # (A) 1.7 k/uL (1.3-7.7); Neutrophils % (A) 67 %; Poikilocytosis Slight; RBC 2.47 m/uL (3.80-5.40); RDW 19.4 % (11.5-15.5); WBC 2.5 k/uL (3.8-10.6); WBC (Perox) 2.71
[2017-01-26 03:06] LABS: Appearance,Urine Cloudy (Clear); Bilirubin,Urine 2+ (Negative); Glucose,Urine (UA) Trace (Negative); Ketones,Urine Negative (Negative); Leukocyte Esterase,Urine Negative (Negative); Mucus,Urine Many /hpf; Nitrite,Urine Negative (Negative); PH, Urine 5.5 (5.0-8.0); Particle Count 14109; Protein,Urine 1+ (Negative); RBC,Urine 2 /hpf (0-5); Specific Gravity,Urine 1.037 (1.001-1.035); Squamous Epithelial Cell,Urine 2 /hpf (0-4); UA Billing (MACRO vs. MICRO) MICRO; WBC,Urine 1 /hpf (0-5)
[2017-01-26 03:12] LABS: INR 1.3 (<1.2); Partial Thromboplastin Time 37.6 sec (22.0-30.0); Prothrombin Time 13.2 sec (9.0-12.0)
--- NOTE | 2017-01-26 03:16 | ED ---
Abdominal Pain HPI - General Chief Complaint: Abdominal Pain Stated Complaint: NVD Time Seen by Provider: 01/26/17 02:04 Source: patient, EMS, RN notes reviewed Mode of arrival: EMS Limitations: no limitations - History of Present Illness Initial Comments: 51-year-old female presents emergency Department chief complaint of episode of reflux. Patient states she was at home states that she felt some stomach contents,, upper throat but she was able to swallow it She states she never fully vomiting. She states that she is concerned it may be blood and states that she stuck her finger in the back of her throat there was no blood at that time. She states her son was concerned to called [facility]. Patient states that she has hepatitis C has a history of paresthesias but she has no increase abdominal pain. She denies chest pain, shortness breath, fever , chills. Patient states she has chronic pain which isn't normal for her. Patient states that she recently had a paracentesis and which alleviated a lot of her symptoms. Patient states she feels better from that standpoint. - Related Data Home Medications Medication Instructions Recorded Confirmed Furosemide [Lasix] 40 mg PO DAILY 01/15/17 01/15/17 Previous Rx's Medication Instructions Recorded HYDROcodone/APAP 5-325MG [[place] 1 - 2 tab PO Q6HR PRN #14 tab 01/11/17 5-325] Multivitamins, Thera [Multivitamin] 1 tab PO DAILY #30 tablet 01/17/17 Spironolactone [Aldactone] 50 mg PO BID #60 tab 01/17/17 Allergies Allergy/AdvReac Type Severity Reaction Status Date / Time No Known Allergies Allergy Verified 01/15/17 15:49 Review of Systems ROS Statement: Those systems with pertinent positive or pertinent negative responses have been documented in the HPI. ROS Other: All systems not noted in ROS Statement are negative. Past Medical History Past Medical History: Cancer, GERD/Reflux, GI Bleed, Hearing Disorder / Deafness , Hypertension, Liver Disease Additional Past Medical History / Comment(s): Hepatitis C, intractable ascities , cirrhosis, pancytopenia, vertigo; "benign abd mass", states has had esophageal banding, lt breast cancer had chemo last on 09-12-16-did not tolerate- completed 3 out of 4 cycles-, lt ear hearing loss, multiple upper GI bleeds. History of Any Multi-Drug Resistant Organisms: None Reported Past Surgical History: Adenoidectomy, Tonsillectomy Additional Past Surgical History / Comment(s): Paracentesises-last done 12/15/16 , EGD, esophageal banding, rt chest mediport 08-06-16, l breast bx. Past Anesthesia/Blood Transfusion Reactions: No Reported Reaction Additional Past Anesthesia/Blood Transfusion Reaction / Comment(s): blood transfusions- no reaction Past Psychological History: Anxiety Smoking Status: Former smoker Past Alcohol Use History: None Reported Past Drug Use History: None Reported - Past Family History Mother Family Medical History: Cancer Additional Family Medical History / Comment(s): of lung ca at the age of 59yrs. She was a smoker. Father Family Medical History: Myocardial Infarction ([place]) Additional Family Medical History / Comment(s): from 2nd heart attack at the age of 59yrs. General Exam Limitations: no limitations General appearance: alert, in no apparent distress Head exam: Present: atraumatic, normocephalic, normal inspection Eye exam: Present: normal appearance, PERRL, EOMI. Absent: scleral icterus, conjunctival injection, periorbital swelling ENT exam: Present: mucous membranes moist. Absent: normal oropharynx ( Edentulous) Neck exam: Present: normal inspection, full ROM. Absent: tenderness, meningismus, lymphadenopathy Respiratory exam: Present: normal lung sounds bilaterally. Absent: respiratory distress, wheezes, rales, rhonchi, stridor Cardiovascular Exam: Present: regular rate, normal rhythm, normal heart sounds. Absent: systolic murmur, diastolic murmur, rubs, gallop, clicks GI/Abdominal exam: Present: soft, distended (Mild), normal bowel sounds. Absent : tenderness, guarding, rebound, rigid Course Vital Signs 01/26/17 02:10 Temperature 98.5 F Pulse Rate 107 H Respiratory 20 Rate Blood Pressure 126/70 O2 Sat by Pulse 99 Oximetry Medical Decision Making - Medical Decision Making 51-year-old female presented emergency department for an episode of acid reflux. He shouldn't son was concerned that maybe blood though she had no hematemesis. Patient had said no episodes here. She does request pain medications for chronic pain meds pain is out of the usual for her. Patient will be discharged at this time as her vitals have been stable her lab work is unchanged from her baseline. - Lab Data Result diagrams: 01/26/17 02:41 01/26/17 02:41 Lab Results 01/26/17 01/26/17 01/26/17 Range/Units 02:41 02:41 02:41 WBC 2.5 L (3.8-10.6) k/uL RBC 2.47 L (3.80-5.40) m/uL Hgb 9.8 L (11.4-16.0) gm/dL Hct 30.1 L (34.0-46.0) % MCV 122.0 H (80.0-100.0) fL MCH 39.8 H (25.0-35.0) pg MCHC 32.6 (31.0-37.0) g/dL RDW 19.4 H (11.5-15.5) % Plt Count 77 L (150-450) k/uL Neutrophils % 67 % Lymphocytes % 14 % Monocytes % 11 % Eosinophils % 2 % Basophils % 2 % Neutrophils # 1.7 (1.3-7.7) k/uL Lymphocytes # 0.3 L (1.0-4.8) k/uL Monocytes # 0.3 (0-1.0) k/uL Eosinophils # 0.1 (0-0.7) k/uL Basophils # 0.1 (0-0.2) k/uL Manual Slide Review Performed Poikilocytosis Slight Anisocytosis Slight Macrocytosis Marked PT 13.2 H (9.0-12.0) sec INR 1.3 H (<1.2) APTT 37.6 H (22.0-30.0) sec Sodium 130 L (137-145) mmol/L Potassium 3.4 L (3.5-5.1) mmol/L Chloride 99 (98-107) mmol/L Carbon Dioxide 25 (22-30) mmol/L Anion Gap 6 mmol/L BUN 18 H (7-17) mg/dL Creatinine 0.60 (0.52-1.04) mg/dL Est GFR (MDRD) Af Amer >60 (>60 ml/min/1.73 sqM) Est GFR (MDRD) Non-Af >60 (>60 ml/min/1.73 sqM) Glucose 117 H (74-99) mg/dL Calcium 8.0 L (8.4-10.2) mg/dL Total Bilirubin 3.4 H (0.2-1.3) mg/dL AST 51 H (14-36) U/L ALT 38 (9-52) U/L Alkaline Phosphatase 120 (38-126) U/L Total Protein 6.1 L (6.3-8.2) g/dL Albumin 2.2 L (3.5-5.0) g/dL Amylase <30 L (30-110) U/L Lipase 127 (23-300) U/L Urine Color Urine Appearance (Clear) Urine pH (5.0-8.0) Ur Specific [place] (1.001-1.035) Urine Protein (Negative) Urine Glucose (UA) (Negative) Urine Ketones (Negative) Urine Blood (Negative) Urine Nitrite (Negative) Urine Bilirubin (Negative) Urine Urobilinogen (<2.0) mg/dL Ur Leukocyte Esterase (Negative) Urine RBC (0-5) /hpf Urine WBC (0-5) /hpf Ur Squamous Epith Cells (0-4) /hpf Hyaline Casts (0-2) /lpf Urine Mucus (None) /hpf 01/26/17 Range/Units 02:41 WBC (3.8-10.6) k/uL RBC (3.80-5.40) m/uL Hgb (11.4-16.0) gm/dL Hct (34.0-46.0) % MCV (80.0-100.0) fL MCH (25.0-35.0) pg MCHC (31.0-37.0) g/dL RDW (11.5-15.5) % Plt Count (150-450) k/uL Neutrophils % % Lymphocytes % % Monocytes % % Eosinophils % % Basophils % % Neutrophils # (1.3-7.7) k/uL Lymphocytes # (1.0-4.8) k/uL Monocytes # (0-1.0) k/uL Eosinophils # (0-0.7) k/uL Basophils # (0-0.2) k/uL Manual Slide Review Poikilocytosis Anisocytosis Macrocytosis PT (9.0-12.0) sec INR (<1.2) APTT (22.0-30.0) sec Sodium (137-145) mmol/L Potassium (3.5-5.1) mmol/L Chloride (98-107) mmol/L Carbon Dioxide (22-30) mmol/L Anion Gap mmol/L BUN (7-17) mg/dL Creatinine (0.52-1.04) mg/dL Est GFR (MDRD) Af Amer (>60 ml/min/1.73 sqM) Est GFR (MDRD) Non-Af (>60 ml/min/1.73 sqM) Glucose (74-99) mg/dL Calcium (8.4-10.2) mg/dL Total Bilirubin (0.2-1.3) mg/dL AST (14-36) U/L ALT (9-52) U/L Alkaline Phosphatase (38-126) U/L Total Protein (6.3-8.2) g/dL Albumin (3.5-5.0) g/dL Amylase (30-110) U/L Lipase (23-300) U/L Urine Color Dark Brown Urine Appearance Cloudy H (Clear) Urine pH 5.5 (5.0-8.0) Ur Specific [place] 1.037 H (1.001-1.035) Urine Protein 1+ H (Negative) Urine Glucose (UA) Trace H (Negative) Urine Ketones Negative (Negative) Urine Blood Negative (Negative) Urine Nitrite Negative (Negative) Urine Bilirubin 2+ H (Negative) Urine Urobilinogen 8.0 (<2.0) mg/dL Ur Leukocyte Esterase Negative (Negative) Urine RBC 2 (0-5) /hpf Urine WBC 1 (0-5) /hpf Ur Squamous Epith Cells 2 (0-4) /hpf Hyaline Casts 3 H (0-2) /lpf Urine Mucus Many H (None) /hpf Disposition Clinical Impression: GERD (gastroesophageal reflux disease), Chronic abdominal pain Disposition: HOME SELF-CARE Condition: Stable Instructions: Abdominal Pain (ED) Additional Instructions: Please return to the Emergency Department if symptoms worsen or any other concerns. Referrals: Mark Estrada MD [Primary Care Provider] - 1-2 days Time of Disposition: 03:43
[2017-01-26 03:28] LABS: Manual Review Performed
[2017-01-26 03:34] LABS: ALT 38 U/L (9-52); AST 51 U/L (14-36); Alkaline Phosphatase 120 U/L (38-126); Amylase <30 U/L (30-110); Anion Gap 6 mmol/L; Blood Urea Nitrogen 18 mg/dL (7-17); Carbon Dioxide 25 mmol/L (22-30); Chloride 99 mmol/L (98-107); Glucose 117 mg/dL (74-99); Non-African American GFR(MDRD) >60 (>60 ml/min/1.73 sqM); Potassium 3.4 mmol/L (3.5-5.1); Sodium 130 mmol/L (137-145); Total Bilirubin 3.4 mg/dL (0.2-1.3); Total Protein 6.1 g/dL (6.3-8.2)
[2017-01-26] MEDS ORDERED: HYDROmorphone 0.5 MG/0.5 ML SYRINGE IVP STA (03:41)
[2017-01-26 03:53] VITALS: BP 116/59; PULSE 87; RESP 18; TEMP 97.5
[2017-01-26] MEDS ORDERED: ONDANSETRON 4 MG ODT STARTER PACK 2 TAB BTL PO STA ×2 (03:59→04:00)
== END 2017-01-26 04:02 | disposition home or self-care (01) ==
LOC: EC 02:01
DX: K21.9 Gastro-esophageal reflux disease without esophagitis (principal); I10 Essential (primary) hypertension; Z87.891 Personal history of nicotine dependence; Z79.899 Other long term (current) drug therapy; Z86.19 Personal history of other infectious and parasitic diseases
CPT/HCPCS: 36415; 80053; 82150; 83690; 85025; 85610; 85730; 81001; 99284; 96374; 96375; 96361; J2405; J1170

== ENCOUNTER 2017-03-16 13:13 | Observation (INO) | payer MEDICARE, OTHER ==
[2017-03-16] MEDS ORDERED: MORPHINE SULFATE 5 MG/ML SYRINGE IVP ONE (16:10)
--- NOTE | 2017-03-16 16:13 | ED ---
Abdominal Pain HPI <Francisco Chris - Last Filed: 03/16/17 19:12> - General Source: patient, RN notes reviewed Mode of arrival: ambulatory Limitations: no limitations <Jeet Snyder - Last Filed: 03/16/17 19:13> - General Chief Complaint: Abdominal Pain Stated Complaint: Abd Pain Time Seen by Provider: 03/16/17 15:52 - History of Present Illness Initial Comments: 51-year-old female presents emergency Department chief complaint of ascites. Patient has chronic liver disease with ascites has had multiple paracentesis. Patient states her most recent one was 10 days ago but states that she has worse swelling and fluid retention than before. Patient states she has been taking her Lasix 40 mg as directed. She denies any chest pain or shortness breath. She states the pain in her abdomen is unbearable. She states that she' s been told just to call her primary care physician when she needs paracentesis in which she did today and was advised to come emergency department. (Jeet Snyder) - Related Data Home Medications Medication Instructions Recorded Confirmed Furosemide [Lasix] 40 mg PO DAILY 03/05/17 03/16/17 Multivitamins, Thera [Multivitamin 1 tab PO DAILY 03/05/17 03/16/17 (formulary)] HYDROcodone/APAP 7.5-325MG [[place] 1 tab PO QID PRN 03/16/17 03/16/17 7.5-325] Spironolactone [Aldactone] 25 mg PO DAILY 03/16/17 03/16/17 Allergies Allergy/AdvReac Type Severity Reaction Status Date / Time No Known Allergies Allergy Verified 03/16/17 15:53 Review of Systems ROS Other: All systems not noted in ROS Statement are negative. <Francisco Chris - Last Filed: 03/16/17 19:12> ROS Other: All systems not noted in ROS Statement are negative. <Jeet Snyder - Last Filed: 03/16/17 19:13> ROS Statement: Those systems with pertinent positive or pertinent negative responses have been documented in the HPI. Past Medical History Past Medical History: Cancer, GERD/Reflux, GI Bleed, Hearing Disorder / Deafness , Hypertension, Liver Disease Additional Past Medical History / Comment(s): Hepatitis C, intractable ascities , cirrhosis, pancytopenia, vertigo; "benign abd mass", states has had esophageal banding, lt breast cancer had chemo last on 09-12-16-did not tolerate- completed 3 out of 4 cycles-, lt ear hearing loss, multiple upper GI bleeds. History of Any Multi-Drug Resistant Organisms: None Reported Past Surgical History: Adenoidectomy, Tonsillectomy Additional Past Surgical History / Comment(s): Paracentesises-last done 12/15/16 , EGD, esophageal banding, rt chest mediport 08-06-16, l breast bx. Past Anesthesia/Blood Transfusion Reactions: No Reported Reaction Additional Past Anesthesia/Blood Transfusion Reaction / Comment(s): blood transfusions- no reaction Past Psychological History: Anxiety Smoking Status: Former smoker Past Alcohol Use History: None Reported Past Drug Use History: None Reported - Past Family History Mother Family Medical History: Cancer Additional Family Medical History / Comment(s): of lung ca at the age of 59yrs. She was a smoker. Father Family Medical History: Myocardial Infarction ([place]) Additional Family Medical History / Comment(s): from 2nd heart attack at the age of 59yrs. <Jeet Snyder M - Last Filed: 03/16/17 19:13> General Exam Limitations: no limitations General appearance: alert, in no apparent distress Head exam: Present: atraumatic, normocephalic, normal inspection Respiratory exam: Present: normal lung sounds bilaterally. Absent: respiratory distress, wheezes, rales, rhonchi, stridor Cardiovascular Exam: Present: regular rate, normal rhythm, normal heart sounds. Absent: systolic murmur, diastolic murmur, rubs, gallop, clicks GI/Abdominal exam: Present: soft, distended, rigid, normal bowel sounds. Absent : tenderness, guarding, rebound Skin exam: Present: warm, dry, intact, normal color. Absent: rash <Jeet Snyder M - Last Filed: 03/16/17 19:13> Vital Signs 03/16/17 03/16/17 03/16/17 13:39 16:15 18:29 Temperature 97.2 F L Pulse Rate 102 H 89 Respiratory 20 18 Rate Blood Pressure 112/73 116/57 O2 Sat by Pulse 100 100 Oximetry Medical Decision Making - Lab Data Result diagrams: 03/16/17 18:25 03/16/17 18:25 <Francisco Chris - Last Filed: 03/16/17 19:12> - Lab Data Result diagrams: 03/16/17 18:25 03/16/17 18:25 <Jeet Snyder - Last Filed: 03/16/17 19:13> - Medical Decision Making The patient was seen and examined. All diagnostics were reviewed. The case is discussed with Dr. Estrada and he is agreeable to admission with paracentesis in a.m. The case is discussed with the PA and I agree with the findings as documented. (Francisco Chris) - Lab Data Lab Results 03/16/17 03/16/17 03/16/17 Range/Units 17:05 18:25 18:25 WBC 4.3 (3.8-10.6) k/uL RBC 2.60 L (3.80-5.40) m/uL Hgb 9.9 L D (11.4-16.0) gm/dL Hct 30.8 L (34.0-46.0) % MCV 118.5 H (80.0-100.0) fL MCH 38.1 H (25.0-35.0) pg MCHC 32.2 (31.0-37.0) g/dL RDW 14.7 (11.5-15.5) % Plt Count 76 L (150-450) k/uL Neutrophils % 76 % Lymphocytes % 13 % Monocytes % 7 % Eosinophils % 2 % Basophils % 0 % Neutrophils # 3.2 (1.3-7.7) k/uL Lymphocytes # 0.6 L (1.0-4.8) k/uL Monocytes # 0.3 (0-1.0) k/uL Eosinophils # 0.1 (0-0.7) k/uL Basophils # 0.0 (0-0.2) k/uL Hypochromasia Slight Poikilocytosis Slight Macrocytosis Marked PT (9.0-12.0) sec INR (<1.2) APTT (22.0-30.0) sec Sodium 132 L (137-145) mmol/L Potassium 3.3 L (3.5-5.1) mmol/L Chloride 97 L (98-107) mmol/L Carbon Dioxide 28 (22-30) mmol/L Anion Gap 7 mmol/L BUN 25 H (7-17) mg/dL Creatinine 0.70 (0.52-1.04) mg/dL Est GFR (MDRD) Af Amer >60 (>60 ml/min/1.73 sqM) Est GFR (MDRD) Non-Af >60 (>60 ml/min/1.73 sqM) Glucose 93 (74-99) mg/dL Calcium 8.2 L (8.4-10.2) mg/dL Total Bilirubin 3.9 H (0.2-1.3) mg/dL AST 134 H (14-36) U/L ALT 47 (9-52) U/L Alkaline Phosphatase 170 H (38-126) U/L Total Protein 6.0 L (6.3-8.2) g/dL Albumin 2.2 L (3.5-5.0) g/dL Amylase <30 L (30-110) U/L Lipase 127 (23-300) U/L Urine Color Dark Brown Urine Appearance Cloudy H (Clear) Urine pH 6.0 (5.0-8.0) Ur Specific [place] 1.034 (1.001-1.035) Urine Protein 1+ H (Negative) Urine Glucose (UA) Negative (Negative) Urine Ketones Trace H (Negative) Urine Blood Negative (Negative) Urine Nitrite Negative (Negative) Urine Bilirubin 2+ H (Negative) Urine Urobilinogen 8.0 (<2.0) mg/dL Ur Leukocyte Esterase Negative (Negative) Urine RBC 3 (0-5) /hpf Urine WBC 2 (0-5) /hpf Ur Squamous Epith Cells 10 H (0-4) /hpf Urine Bacteria Rare H (None) /hpf Hyaline Casts 8 H (0-2) /lpf Urine Mucus Many H (None) /hpf 03/16/17 Range/Units 18:25 WBC (3.8-10.6) k/uL RBC (3.80-5.40) m/uL Hgb (11.4-16.0) gm/dL Hct (34.0-46.0) % MCV (80.0-100.0) fL MCH (25.0-35.0) pg MCHC (31.0-37.0) g/dL RDW (11.5-15.5) % Plt Count (150-450) k/uL Neutrophils % % Lymphocytes % % Monocytes % % Eosinophils % % Basophils % % Neutrophils # (1.3-7.7) k/uL Lymphocytes # (1.0-4.8) k/uL Monocytes # (0-1.0) k/uL Eosinophils # (0-0.7) k/uL Basophils # (0-0.2) k/uL Hypochromasia Poikilocytosis Macrocytosis PT 12.5 H (9.0-12.0) sec INR 1.3 H (<1.2) APTT 26.4 (22.0-30.0) sec Sodium (137-145) mmol/L Potassium (3.5-5.1) mmol/L Chloride (98-107) mmol/L Carbon Dioxide (22-30) mmol/L Anion Gap mmol/L BUN (7-17) mg/dL Creatinine (0.52-1.04) mg/dL Est GFR (MDRD) Af Amer (>60 ml/min/1.73 sqM) Est GFR (MDRD) Non-Af (>60 ml/min/1.73 sqM) Glucose (74-99) mg/dL Calcium (8.4-10.2) mg/dL Total Bilirubin (0.2-1.3) mg/dL AST (14-36) U/L ALT (9-52) U/L Alkaline Phosphatase (38-126) U/L Total Protein (6.3-8.2) g/dL Albumin (3.5-5.0) g/dL Amylase (30-110) U/L Lipase (23-300) U/L Urine Color Urine Appearance (Clear) Urine pH (5.0-8.0) Ur Specific [place] (1.001-1.035) Urine Protein (Negative) Urine Glucose (UA) (Negative) Urine Ketones (Negative) Urine Blood (Negative) Urine Nitrite (Negative) Urine Bilirubin (Negative) Urine Urobilinogen (<2.0) mg/dL Ur Leukocyte Esterase (Negative) Urine RBC (0-5) /hpf Urine WBC (0-5) /hpf Ur Squamous Epith Cells (0-4) /hpf Urine Bacteria (None) /hpf Hyaline Casts (0-2) /lpf Urine Mucus (None) /hpf Disposition <Francisco Chris - Last Filed: 03/16/17 19:12> <Jeet Snyder - Last Filed: 03/16/17 19:13> Clinical Impression: Ascites, Intractable abdominal pain, Anemia Disposition: ADMITTED IP TO THIS HOSP Condition: Fair Referrals: Mark Estrada MD [Primary Care Provider] - 1-2 days
[2017-03-16] MEDS ORDERED: ALTEPLASE 2 MG VIAL (CATHFLO) IV STA (16:37)
[2017-03-16 17:21] LABS: Appearance,Urine Cloudy (Clear); Bacteria,Urine Rare /hpf; Bilirubin,Urine 2+ (Negative); Glucose,Urine (UA) Negative (Negative); Ketones,Urine Trace (Negative); Leukocyte Esterase,Urine Negative (Negative); Mucus,Urine Many /hpf; Nitrite,Urine Negative (Negative); Particle Count 17587; Protein,Urine 1+ (Negative); RBC,Urine 3 /hpf (0-5); Specific Gravity,Urine 1.034 (1.001-1.035); Squamous Epithelial Cell,Urine 10 /hpf (0-4); UA Billing (MACRO vs. MICRO) MICRO; WBC,Urine 2 /hpf (0-5)
[2017-03-16 18:49] LABS: INR 1.3 (<1.2); Partial Thromboplastin Time 26.4 sec (22.0-30.0); Prothrombin Time 12.5 sec (9.0-12.0)
[2017-03-16 18:51] LABS: Basophils % (A) 0 %; CH 38.8; Eosinophils # (A) 0.1 k/uL (0-0.7); Eosinophils % (A) 2 %; HCT 30.8 % (34.0-46.0); HDW 3.65; Hypochromasia Slight; Luc # (Auto) 0.09; Luc % (Auto) 2; Lymphocytes # (A) 0.6 k/uL (1.0-4.8); Lymphocytes % (A) 13 %; MCH 38.1 pg (25.0-35.0); MCHC 32.2 g/dL (31.0-37.0); Macrocytosis Marked; Mean Platelet Volume 8.8; Monocytes # (A) 0.3 k/uL (0-1.0); Monocytes % (A) 7 %; Neutrophils # (A) 3.2 k/uL (1.3-7.7); Neutrophils % (A) 76 %; Poikilocytosis Slight; RDW 14.7 % (11.5-15.5); WBC 4.3 k/uL (3.8-10.6); WBC (Perox) 4.79
[2017-03-16 18:52] LABS: HGB 9.9 gm/dL (11.4-16.0)
[2017-03-16 18:53] LABS: MCV 118.5 fL (80.0-100.0)
[2017-03-16 18:56] LABS: ALT 47 U/L (9-52); AST 134 U/L (14-36); Alkaline Phosphatase 170 U/L (38-126); Amylase <30 U/L (30-110); Anion Gap 7 mmol/L; Blood Urea Nitrogen 25 mg/dL (7-17); Calcium 8.2 mg/dL (8.4-10.2); Carbon Dioxide 28 mmol/L (22-30); Chloride 97 mmol/L (98-107); Glucose 93 mg/dL (74-99); Non-African American GFR(MDRD) >60 (>60 ml/min/1.73 sqM); Potassium 3.3 mmol/L (3.5-5.1); Sodium 132 mmol/L (137-145); Total Bilirubin 3.9 mg/dL (0.2-1.3)
[2017-03-16] MEDS ORDERED: NALOXONE 0.4 MG/ML 1 ML VIAL IV PRN (19:05)
[2017-03-16] MEDS ORDERED: ACETAMINOPHEN TAB 325 MG TAB PO PRN (19:05)
[2017-03-16] MEDS: MORPHINE SULFATE 5 MG/ML SYRINGE IV PRN (23:16)
[2017-03-17] MEDS: ONDANSETRON 4 MG/2 ML VIAL IVP PRN (02:13)
[2017-03-17 05:14] VITALS: BMI 28.4
[2017-03-17] MEDS: MORPHINE SULFATE 5 MG/ML SYRINGE IV PRN ×3 (05:53→23:36)
--- NOTE | 2017-03-17 12:22 | PN ---
PROGRESS NOTE CHIEF COMPLAINT: Ascites. HISTORY OF PRESENT ILLNESS: This lady is reasonably comfortable and she is going for a paracentesis today. PHYSICAL EXAM: Cardiac exam is normal. Chest is clear. The abdomen is the same. IMPRESSION: Cirrhosis with intractable ascites. PLAN: Paracentesis today. KAUSHIK / KAREEM: [id number] /
--- NOTE | 2017-03-17 12:25 | HP ---
HISTORY AND PHYSICAL CHIEF COMPLAINT: Acute abdominal pain. HISTORY OF PRESENT ILLNESS: This is another admission for this 56-year-old, white female with intractable ascites secondary to cirrhosis and hepatitis C. She also has breast CA. She came back in because of abdominal pain and distention and she will need to be tapped again. She has had no vomiting, fever, chills, diarrhea, melena, hematochezia, etc. Past medical history, family history and personal and social history are all otherwise unremarkable and noncontributory and unchanged. She states she has been on the Lasix and Aldactone. PHYSICAL EXAMINATION: Blood pressure is 103/60 with a pulse of 78, respirations of 35 and she is afebrile. In general, she appeared to be pale and chronically ill. Head, ears, eyes, nose, mouth, and throat were normal. Chest is clear. Breath sounds are somewhat diminished. Cardiac exam is normal with tachycardia. The abdomen is protuberant and firm and generally tender throughout. Bowel sounds were diminished. Extremities are normal. Neurologically, she is intact. IMPRESSION: 1. Intractable ascites. 2. Cirrhosis. 3. Hepatitis C. 4. Carcinoma of the breast. PLAN: 1. Bed rest. 2. IV fluids. 3. Consult with Interventional Radiology for paracentesis. MMODL / IJN: [id number] /
--- NOTE | 2017-03-17 12:37 | US ---
EXAMINATION TYPE: US paracentesis abd w/image DATE OF EXAM: 03/17/2017 COMPARISON: NONE HISTORY: Ascites. PROCEDURE: Maximal barrier technique was utilized. The skin overlying a suitable pocket of fluid was localized with ultrasound and the overlying skin was prepped and draped. Ultrasound was utilized with sterile technique. Lidocaine was used for local anesthesia and a skin adela made with a scalpel. Catheter was advanced under direct ultrasound guidance into a suitable pocket of fluid and approximately 12.4 lite rs of serous fluid were removed. Catheter was withdrawn and hemostasis achieved. There is no immedi ate complication; the patient is discharged in stable condition. IMPRESSION: STATUS POST ULTRASOUND GUIDED PARACENTESIS FOR PALLIATION OF ASCITES. THIS PROCEDURE WA S PERFORMED BY THE UNDERSIGNED.
[2017-03-17 22:42] VITALS: RESP 16
[2017-03-18] MEDS: HYDROcodone/APAP 7.5-325MG 1 EACH TAB PO PRN ×3 (00:09→13:04)
[2017-03-18] MEDS: MORPHINE SULFATE 5 MG/ML SYRINGE IV PRN ×2 (04:32→08:45)
[2017-03-18] MEDS: ONDANSETRON 4 MG/2 ML VIAL IVP PRN (06:15)
[2017-03-18 08:06] VITALS: BP 103/50; PULSE 86; TEMP 98.2
[2017-03-18] MEDS ORDERED: SPIRONOLACTONE 25 MG TAB PO SCH (09:00)
[2017-03-18] MEDS ORDERED: FUROSEMIDE 40 MG TAB PO SCH (09:00)
--- NOTE | 2017-03-18 19:30 | DS ---
DISCHARGE SUMMARY CHIEF COMPLAINT: Intractable ascites. HISTORY OF PRESENT ILLNESS AND PHYSICAL EXAM: Details of this lady's history and physical can be found in the initial workup. COURSE IN HOSPITAL: After admission, she was placed on bedrest, started on intravenous fluids and analgesics and taken for paracentesis. She was more comfortable and was felt she could go home on the . Her Lasix and Aldactone will be doubled, but this likely will not help control her ascites a great deal. FINAL DIAGNOSES: 1. Intractable ascites. 2. Cirrhosis. 3. Hepatitis C. 4. Carcinoma of the breast. OPERATIONS: Paracentesis. CONSULTATION: None. She is improved. MMODL / IJN: [id number] /
== END 2017-03-18 15:40 | disposition home health service (06) ==
LOC: EC 13:13 → 5ONC 20:05 → INTOOBSV 20:05
PROVIDERS: ADMIT Family Medicine; ATTEND Family Medicine
DX: R18.8 Other ascites (principal); K74.60 Unspecified cirrhosis of liver; K21.9 Gastro-esophageal reflux disease without esophagitis; I10 Essential (primary) hypertension; F41.9 Anxiety disorder, unspecified; C50.912 Malignant neoplasm of unspecified site of left female breast; D64.9 Anemia, unspecified; B19.20 Unspecified viral hepatitis C without hepatic coma; H91.92 Unspecified hearing loss, left ear; Z79.899 Other long term (current) drug therapy; Z87.891 Personal history of nicotine dependence; Z80.1 Family history of malignant neoplasm of trachea, bronchus and lung; Z82.49 Family history of ischemic heart disease and other diseases of the circulatory system
CPT/HCPCS: 96376 ×3; 96375; 96374; 99284; 36415; 80053; 82150; 83690; 85025; 85610; 85730; 81001; 49083; G0378 ×3; J2405 ×2; J2997; J2274 ×3

== ENCOUNTER 2017-04-14 13:25 | Day surgery (SDC) | payer MEDICARE, OTHER ==
[2017-04-14 13:52] LABS: Mean Platelet Volume 9.4
[2017-04-14 13:54] LABS: Platelet Count 76 k/uL (150-450)
[2017-04-14 13:55] VITALS: RESP 14; TEMP 97.9
[2017-04-14] MEDS ORDERED: ONDANSETRON 4 MG/2 ML VIAL IVP STA (14:01)
[2017-04-14 14:09] LABS: INR 1.3 (<1.2); Partial Thromboplastin Time 29.6 sec (22.0-30.0); Prothrombin Time 12.1 sec (9.0-12.0)
[2017-04-14] MEDS: ALBUMIN HUMAN 25% 50 ML in EMPTY BAG 1 BAG IVPB SCH ×4 (14:40→15:24)
--- NOTE | 2017-04-14 16:09 | US ---
EXAMINATION TYPE: US paracentesis abd w/image DATE OF EXAM: 04/14/2017 COMPARISON: NONE HISTORY: Ascites. PROCEDURE: Maximal barrier technique was utilized. The skin overlying a suitable pocket of fluid was localized with ultrasound and the overlying skin was prepped and draped. Ultrasound was utilized with sterile technique. Lidocaine was used for local anesthesia and a skin adela made with a scalpel. Catheter was advanced under direct ultrasound guidance into a suitable pocket of fluid and approximately 11.1 lite rs of serous fluid were removed. Catheter was withdrawn and hemostasis achieved. There is no immedi ate complication; the patient is discharged in stable condition. IMPRESSION: STATUS POST ULTRASOUND GUIDED PARACENTESIS FOR PALLIATION OF ASCITES. THIS PROCEDURE WA S PERFORMED BY THE UNDERSIGNED.
[2017-04-14 16:27] VITALS: BP 91/51; PULSE 84
== END 2017-04-14 16:23 | disposition home or self-care (01) ==
LOC: RADPROMAIN 13:25
PROVIDERS: ATTEND Family Medicine
DX: R18.8 Other ascites (principal)
CPT/HCPCS: 85049; 85610; 85730; 96365; 49083; J2405; P9047

== ENCOUNTER 2017-04-27 21:52 | Emergency (ER) | payer MEDICARE, OTHER ==
[2017-04-27] MEDS ORDERED: HYDROmorphone 0.5 MG/0.5 ML SYRINGE IVP STA (23:45)
[2017-04-28 00:34] LABS: Basophils % (A) 1 %; Eosinophils # (A) 0.1 k/uL (0-0.7); Eosinophils % (A) 2 %; HCT 31.9 % (34.0-46.0); HGB 10.4 gm/dL (11.4-16.0); Lymphocytes # (A) 0.8 k/uL (1.0-4.8); Lymphocytes % (A) 23 %; MCH 36.6 pg (25.0-35.0); MCHC 32.7 g/dL (31.0-37.0); Macrocytosis Marked; Mean Platelet Volume 7.8; Monocytes # (A) 0.4 k/uL (0-1.0); Monocytes % (A) 11 %; Neutrophils % (A) 60 %; Platelet Count 104 k/uL (150-450); Poikilocytosis Slight; RBC 2.85 m/uL (3.80-5.40); RDW 14.3 % (11.5-15.5); WBC 3.4 k/uL (3.8-10.6)
[2017-04-28 00:41] LABS: ALT 41 U/L (9-52); AST 50 U/L (14-36); Albumin 2.4 g/dL (3.5-5.0); Alkaline Phosphatase 118 U/L (38-126); Amylase <30 U/L (30-110); Anion Gap 5 mmol/L; Blood Urea Nitrogen 18 mg/dL (7-17); Calcium 8.3 mg/dL (8.4-10.2); Carbon Dioxide 28 mmol/L (22-30); Chloride 99 mmol/L (98-107); Glucose 91 mg/dL (74-99); Lipase 107 U/L (23-300); Potassium 3.7 mmol/L (3.5-5.1); Sodium 132 mmol/L (137-145); Total Bilirubin 2.4 mg/dL (0.2-1.3); Total Protein 6.3 g/dL (6.3-8.2)
[2017-04-28 00:54] LABS: Polychromasia Present
[2017-04-28] MEDS ORDERED: HYDROmorphone 2 MG/ML 1 ML SYRINGE IVP STA (01:44)
--- NOTE | 2017-04-28 01:54 | ED ---
Abdominal Pain HPI - General Chief Complaint: Abdominal Pain Stated Complaint: Abd Pain Time Seen by Provider: 04/27/17 23:37 Source: patient Mode of arrival: ambulatory Limitations: no limitations - History of Present Illness Initial Comments: 51-year-old female patient presents to the emergency department today for evaluation of abdominal swelling and discomfort. Patient has a known history of chronic liver disease, hepatitis C, and cancer. She states that her last paracentesis was performed at the beginning of March. She states that she has been attempting to call her primary care physician as well as her GI specialist to have another paracentesis performed however known is calling her back. Patient reports that over the last week or so she has been having increased swelling to her abdomen. She states that the abdomen feels tight and uncomfortable. She denies any difficulty breathing with this. Denies any fever or chills. She denies any nausea or vomiting. States that she is not having any diarrhea. 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 Patient denies any recent rash, shortness breath, chest pain, diarrhea, constipation, back pain, numbness, tingling, dizziness, weakness, hematuria, dysuria, urinary urgency, urinary frequency, headache, visual changes, or any other complaints. - Related Data Home Medications Medication Instructions Recorded Confirmed RX: Multivitamins, Thera 1 tab PO DAILY 03/05/17 04/27/17 [Multivitamin (formulary)] RX: HYDROcodone/APAP 7.5-325MG 1 tab PO QID PRN 03/16/17 04/27/17 [[place] 7.5-325] Previous Rx's Medication Instructions Recorded Furosemide [Lasix] 40 mg PO BID #60 tablet 03/18/17 Spironolactone [Aldactone] 50 mg PO BID #60 tab 03/18/17 Allergies Allergy/AdvReac Type Severity Reaction Status Date / Time No Known Allergies Allergy Verified 04/27/17 23:41 Review of Systems ROS Statement: Those systems with pertinent positive or pertinent negative responses have been documented in the HPI. ROS Other: All systems not noted in ROS Statement are negative. Past Medical History Past Medical History: Cancer, GERD/Reflux, GI Bleed, Hearing Disorder / Deafness , Hypertension, Liver Disease Additional Past Medical History / Comment(s): Hepatitis C, intractable ascities , cirrhosis, pancytopenia, vertigo; "benign abd mass", states has had esophageal banding, lt breast cancer had chemo last on 09-12-16-did not tolerate- completed 3 out of 4 cycles-, lt ear hearing loss, multiple upper GI bleeds. History of Any Multi-Drug Resistant Organisms: None Reported Past Surgical History: Adenoidectomy, Tonsillectomy Additional Past Surgical History / Comment(s): Paracentesises-last done 03/06/17 , EGD, esophageal banding, rt chest mediport 08-06-16, l breast bx. Past Anesthesia/Blood Transfusion Reactions: No Reported Reaction Additional Past Anesthesia/Blood Transfusion Reaction / Comment(s): blood transfusions- no reaction Past Psychological History: Anxiety Smoking Status: Former smoker Past Alcohol Use History: None Reported Past Drug Use History: None Reported - Past Family History Mother Family Medical History: Cancer Additional Family Medical History / Comment(s): of lung ca at the age of 59yrs. She was a smoker. Father Family Medical History: Myocardial Infarction ([place]) Additional Family Medical History / Comment(s): from 2nd heart attack at the age of 59yrs. General Exam Limitations: no limitations General appearance: alert, in no apparent distress, other (This is a thin- appearing, adult female patient in no acute distress. Vital signs upon presentation are temperature 98.5F, pulse 80, respirations 18, blood pressure 111/53, pulse ox 97% on room air.) Eye exam: Present: normal appearance, PERRL, EOMI, scleral icterus. Absent: conjunctival injection, periorbital swelling ENT exam: Present: normal exam, normal oropharynx, mucous membranes moist Neck exam: Present: normal inspection. Absent: tenderness, meningismus, lymphadenopathy Respiratory exam: Present: normal lung sounds bilaterally. Absent: respiratory distress, wheezes, rales, rhonchi, stridor Cardiovascular Exam: Present: regular rate, normal rhythm, normal heart sounds. Absent: systolic murmur, diastolic murmur, rubs, gallop, clicks GI/Abdominal exam: Present: soft, distended, normal bowel sounds, other (Ascites , abdomen is firm, nontender). Absent: tenderness, guarding, rebound, rigid Neurological exam: Present: alert, oriented X3, CN II-XII intact Psychiatric exam: Present: normal affect, normal mood Skin exam: Present: warm, dry, intact, other (Jaundice, mild). Absent: rash Course Vital Signs 04/27/17 04/28/17 04/28/17 21:58 01:35 02:26 Temperature 98.5 F 97.1 F L 97 F L Pulse Rate 80 97 87 Respiratory 18 20 18 Rate Blood Pressure 111/53 117/65 110/55 O2 Sat by Pulse 97 96 97 Oximetry Medical Decision Making - Medical Decision Making 51-year-old female patient presents to the emergency department today for evaluation of increased abdominal swelling and discomfort. Physical examination does reveal a protuberant abdomen that is firm, but nontender. Labs reviewed and do reveal white blood cell 3.4, hemoglobin 10.4, sodium 132, calcium of 8.3, total bili of 2.4, AST of 50, albumin of 2.4. These labs are chronic and actually improved from her last visit. As patient is vital signs are stable. She is not having any difficulty breathing. She'll be discharged home at this time to follow-up with her GI specialist and her primary care physician. She is instructed to attempt calling them again in the morning. She was given pain medication and is feeling more comfortable. She is instructed to return here immediately for any new, worsening, or concerning symptoms. She verbalizes understanding and agrees with this plan. - Lab Data Result diagrams: 04/28/17 00:10 04/28/17 00:10 Lab Results 04/28/17 04/28/17 Range/Units 00:10 00:10 WBC 3.4 L (3.8-10.6) k/uL RBC 2.85 L (3.80-5.40) m/uL Hgb 10.4 L (11.4-16.0) gm/dL Hct 31.9 L (34.0-46.0) % MCV 112.0 H D (80.0-100.0) fL MCH 36.6 H (25.0-35.0) pg MCHC 32.7 (31.0-37.0) g/dL RDW 14.3 (11.5-15.5) % Plt Count 104 L (150-450) k/uL Neutrophils % 60 % Lymphocytes % 23 % Monocytes % 11 % Eosinophils % 2 % Basophils % 1 % Neutrophils # 2.0 (1.3-7.7) k/uL Lymphocytes # 0.8 L (1.0-4.8) k/uL Monocytes # 0.4 (0-1.0) k/uL Eosinophils # 0.1 (0-0.7) k/uL Basophils # 0.0 (0-0.2) k/uL Manual Slide Review Performed Polychromasia Present Poikilocytosis Slight Macrocytosis Marked Sodium 132 L (137-145) mmol/L Potassium 3.7 (3.5-5.1) mmol/L Chloride 99 (98-107) mmol/L Carbon Dioxide 28 (22-30) mmol/L Anion Gap 5 mmol/L BUN 18 H (7-17) mg/dL Creatinine 0.80 (0.52-1.04) mg/dL Est GFR (MDRD) Af Amer >60 (>60 ml/min/1.73 sqM) Est GFR (MDRD) Non-Af >60 (>60 ml/min/1.73 sqM) Glucose 91 (74-99) mg/dL Calcium 8.3 L (8.4-10.2) mg/dL Total Bilirubin 2.4 H (0.2-1.3) mg/dL AST 50 H (14-36) U/L ALT 41 (9-52) U/L Alkaline Phosphatase 118 (38-126) U/L Total Protein 6.3 (6.3-8.2) g/dL Albumin 2.4 L (3.5-5.0) g/dL Amylase <30 L (30-110) U/L Lipase 107 (23-300) U/L Disposition Clinical Impression: Ascites, Abdominal pain Disposition: HOME SELF-CARE Condition: Good Instructions: Ascites (ED), Abdominal Pain (ED) Additional Instructions: Follow-up with your doctor or your GI specialist as soon as possible. Continue calling tomorrow get an appointment for possible paracentesis. Return here immediately for any new, worsening, or concerning symptoms. Referrals: Mark Estrada MD [Primary Care Provider] - 1-2 days Time of Disposition: 01:54
[2017-04-28 02:27] VITALS: BP 110/55; PULSE 87; RESP 18; TEMP 97
== END 2017-04-28 02:27 | disposition home or self-care (01) ==
LOC: EC 21:52
DX: R18.8 Other ascites (principal); R10.9 Unspecified abdominal pain; Z79.899 Other long term (current) drug therapy; Z85.3 Personal history of malignant neoplasm of breast; Z87.891 Personal history of nicotine dependence
CPT/HCPCS: 36415; 80053; 82150; 83690; 85025; 99284; 96374; 96376; J1170 ×2

== ENCOUNTER 2017-05-08 21:20 | Emergency (ER) | payer MEDICARE, OTHER ==
[2017-05-08 22:48] VITALS: TEMP 98.3
[2017-05-08] MEDS ORDERED: ONDANSETRON 4 MG/2 ML VIAL IVP STA (23:13)
[2017-05-08] MEDS ORDERED: HYDROmorphone 2 MG/ML 1 ML SYRINGE IVP STA (23:13)
[2017-05-08] MEDS ORDERED: diphenhydrAMINE 50 MG/ML 1 ML VIAL IVP STA (23:13)
[2017-05-08] MEDS ORDERED: PANTOPRAZOLE 40 MG/10 ML VIAL IVP STA (23:13)
[2017-05-08] MEDS ORDERED: SODIUM CHLORIDE 0.9% 1,000 ML IV STA (23:13)
--- NOTE | 2017-05-08 23:14 | ED ---
General Adult HPI - General Chief complaint: Abdominal Pain Stated complaint: Abd pain Time Seen by Provider: 05/08/17 22:58 Source: patient, RN notes reviewed, old records reviewed Mode of arrival: ambulatory - History of Present Illness Initial comments: This is a 31-year-old female to the ER prevention of bowel pain. Patient has history of acute on chronic abdominal pain anterior ascites from hepatitis C. No history of pancreatitis. Patient states that she did get her abdominal drain recently, she does have a chronic pain issue run out of her pain medications and doesn't get a refill to see her doctor until Thursday. Patient denies any fevers no nausea vomiting. No diarrhea - Related Data Home Medications Medication Instructions Recorded Confirmed Multivitamins, Thera [Multivitamin 1 tab PO DAILY 03/05/17 05/08/17 (formulary)] Sofosbuvir/Velpatasvir [Epclusa 1 tab PO DAILY 04/30/17 05/08/17 400 mg-100 mg Tablet] Omeprazole 20 mg PO BID 05/08/17 05/08/17 Previous Rx's Medication Instructions Recorded Furosemide [Lasix] 40 mg PO BID #60 tablet 03/18/17 Spironolactone [Aldactone] 50 mg PO BID #60 tab 03/18/17 HYDROcodone/APAP 7.5-325MG [[place] 1 tab PO QID PRN #20 tab 05/09/17 7.5-325] Allergies Allergy/AdvReac Type Severity Reaction Status Date / Time No Known Allergies Allergy Verified 05/08/17 23:14 Review of Systems ROS Statement: Those systems with pertinent positive or pertinent negative responses have been documented in the HPI. ROS Other: All systems not noted in ROS Statement are negative. Past Medical History Past Medical History: Cancer, GERD/Reflux, GI Bleed, Hearing Disorder / Deafness , Hypertension, Liver Disease Additional Past Medical History / Comment(s): Hepatitis C, intractable ascities , cirrhosis, pancytopenia, vertigo; "benign abd mass", states has had esophageal banding, lt breast cancer had chemo last on 09-12-16-did not tolerate- completed 3 out of 4 cycles-, lt ear hearing loss, multiple upper GI bleeds. History of Any Multi-Drug Resistant Organisms: None Reported Past Surgical History: Adenoidectomy, Tonsillectomy Additional Past Surgical History / Comment(s): Paracentesises, EGD, esophageal banding, rt chest mediport 17, l breast bx. Past Anesthesia/Blood Transfusion Reactions: No Reported Reaction Additional Past Anesthesia/Blood Transfusion Reaction / Comment(s): blood transfusions- no reaction Past Psychological History: Anxiety Smoking Status: Current every day smoker Past Alcohol Use History: None Reported Past Drug Use History: None Reported - Past Family History Mother Family Medical History: Cancer Additional Family Medical History / Comment(s): of lung ca at the age of 59yrs. She was a smoker. Father Family Medical History: Myocardial Infarction ([place]) Additional Family Medical History / Comment(s): from 2nd heart attack at the age of 59yrs. General Exam - General Exam Comments Initial Comments: Ascitic abdomen, less distended than normal per patient General appearance: alert, in no apparent distress Head exam: Present: atraumatic, normocephalic, normal inspection Eye exam: Present: normal appearance, PERRL, EOMI. Absent: scleral icterus, conjunctival injection, periorbital swelling ENT exam: Present: normal exam, mucous membranes moist Neck exam: Present: normal inspection. Absent: tenderness, meningismus, lymphadenopathy Respiratory exam: Present: normal lung sounds bilaterally. Absent: respiratory distress, wheezes, rales, rhonchi, stridor Cardiovascular Exam: Present: regular rate, normal rhythm, normal heart sounds. Absent: systolic murmur, diastolic murmur, rubs, gallop, clicks GI/Abdominal exam: Present: soft, normal bowel sounds. Absent: distended, tenderness, guarding, rebound, rigid Extremities exam: Present: normal inspection, full ROM, normal capillary refill. Absent: tenderness, pedal edema, joint swelling, calf tenderness Back exam: Present: normal inspection Neurological exam: Present: alert, oriented X3, CN II-XII intact Psychiatric exam: Present: normal affect, normal mood Skin exam: Present: warm, dry, intact, normal color. Absent: rash Course Vital Signs 05/08/17 22:42 Temperature 98.3 F Pulse Rate 89 Respiratory 22 Rate Blood Pressure 144/65 O2 Sat by Pulse 100 Oximetry - Reevaluation(s) Reevaluation #1: 05/09/17 00:17 Patient's pain at this point is relieved Medical Decision Making - Medical Decision Making 31 female the ER for evaluation of acute on chronic of bowel pain. Patient given abdominal pain control here in the ER, prescription with pain meds until Thursday Disposition Clinical Impression: Intractable nausea and vomiting, Abdominal pain Disposition: HOME SELF-CARE Condition: Good Instructions: Abdominal Pain (ED) Prescriptions: HYDROcodone/APAP 7.5-325MG [[place] 7.5-325] 1 tab PO QID PRN #20 tab PRN Reason: Pain Referrals: Mark Estrada MD [Primary Care Provider] - 1-2 days
[2017-05-09 00:31] VITALS: BP 140/56; PULSE 83; RESP 20
== END 2017-05-09 00:38 | disposition home or self-care (01) ==
LOC: EC 21:20
DX: R11.2 Nausea with vomiting, unspecified (principal); R10.9 Unspecified abdominal pain; G89.29 Other chronic pain; K71.51 Toxic liver disease with chronic active hepatitis with ascites; H91.92 Unspecified hearing loss, left ear; K21.9 Gastro-esophageal reflux disease without esophagitis; F17.200 Nicotine dependence, unspecified, uncomplicated; Z79.899 Other long term (current) drug therapy; Z85.3 Personal history of malignant neoplasm of breast; Z92.21 Personal history of antineoplastic chemotherapy; Z53.8 Procedure and treatment not carried out for other reasons
CPT/HCPCS: 99284; 96374; 96375 ×3; J1170; J1200; J2405; C9113

== ENCOUNTER 2017-05-18 18:00 | Emergency (ER) | payer MEDICARE, OTHER ==
[2017-05-18 18:53] VITALS: RESP 18; TEMP 97.9
--- NOTE | 2017-05-18 20:31 | ED ---
General Adult HPI - General Chief complaint: Recheck/Abnormal Lab/Rx Stated complaint: Medication refll Time Seen by Provider: 05/18/17 20:06 Source: patient, RN notes reviewed, old records reviewed Mode of arrival: ambulatory Limitations: no limitations - History of Present Illness Initial comments: Patient with a history of hepatitis C, ascites, chronic abdominal pain, breast carcinoma, presents for refill of prescription of her [place]. Patient states she was discharged from the hospital 2 days ago, however given prescription for antibiotics and no pain medications. States she spoke with her primary care physician Dr. Estrada in office this morning, was told prescription will be e- prescribed to her pharmacy. She spoke with her pharmacy twice today and they said the prescription has not come through the computer system yet. Patient states her last prescription was given to her on May 09 just prior to being admitted to the hospital, and since that time she cannot find any of her medications. States she thinks the bottle of [place] was lost while she was in the hospital. Patient states abdominal pain has been improved since paracentesis while in the hospital, however she is still experiencing her exact same chronic abdominal pain. Denies fevers, chills, nausea, vomiting. - Related Data Home Medications Medication Instructions Recorded Confirmed Multivitamins, Thera [Multivitamin 1 tab PO DAILY 03/05/17 05/18/17 (formulary)] Sofosbuvir/Velpatasvir [Epclus[place] 1 tab PO DAILY 04/30/17 05/18/17 400 mg-100 mg Tablet] Omeprazole 20 mg PO BID 05/08/17 05/18/17 Previous Rx's Medication Instructions Recorded Furosemide [Lasix] 40 mg PO BID #60 tablet 03/18/17 Spironolactone [Aldactone] 50 mg PO BID #60 tab 03/18/17 HYDROcodone/APAP 7.5-325MG [[place] 1 tab PO QID PRN #20 tab 05/09/17 7.5-325] Cefuroxime Axetil [Ceftin] 500 mg PO BID #14 tab 05/15/17 HYDROcodone/APAP 7.5-325MG [[place] 1 tab PO Q6HR PRN 1 Days #4 tab 05/18/17 7.5-325] Allergies Allergy/AdvReac Type Severity Reaction Status Date / Time No Known Allergies Allergy Verified 05/18/17 19:39 Review of Systems ROS Statement: Those systems with pertinent positive or pertinent negative responses have been documented in the HPI. ROS Other: All systems not noted in ROS Statement are negative. Constitutional: Denies: fever, chills, weakness Eyes: Denies: vision change ENT: Denies: throat pain, congestion Respiratory: Denies: cough, dyspnea Cardiovascular: Denies: chest pain Endocrine: Reports: fatigue (chronic) Gastrointestinal: Reports: abdominal pain (chronic). Denies: nausea, vomiting, diarrhea, constipation Genitourinary: Denies: urgency, dysuria, frequency, hematuria, discharge Musculoskeletal: Denies: back pain Skin: Denies: rash Neurological: Denies: headache Past Medical History Past Medical History: Cancer, GERD/Reflux, GI Bleed, Hearing Disorder / Deafness , Hypertension, Liver Disease Additional Past Medical History / Comment(s): Hepatitis C, intractable ascities , cirrhosis, pancytopenia, vertigo; "benign abd mass", states has had esophageal banding, lt breast cancer had chemo last on 09-12-16-did not tolerate- completed 3 out of 4 cycles-, lt ear hearing loss, multiple upper GI bleeds. History of Any Multi-Drug Resistant Organisms: None Reported Past Surgical History: Adenoidectomy, Tonsillectomy Additional Past Surgical History / Comment(s): Paracentesises, EGD, esophageal banding, rt chest mediport 08-06-16, l breast bx. Past Anesthesia/Blood Transfusion Reactions: No Reported Reaction Additional Past Anesthesia/Blood Transfusion Reaction / Comment(s): blood transfusions- no reaction Past Psychological History: Anxiety Smoking Status: Current every day smoker Past Alcohol Use History: None Reported Past Drug Use History: None Reported - Past Family History Mother Family Medical History: Cancer Additional Family Medical History / Comment(s): of lung ca at the age of 59yrs. She was a smoker. Father Family Medical History: Myocardial Infarction ([place]) Additional Family Medical History / Comment(s): from 2nd heart attack at the age of 59yrs. General Exam - General Exam Comments Initial Comments: Laying in bed. No acute distress. Conversing normally. Does not appear in pain. Limitations: no limitations General appearance: alert, in no apparent distress Head exam: Present: atraumatic, normocephalic Eye exam: Present: normal appearance, PERRL, EOMI ENT exam: Present: mucous membranes moist Neck exam: Present: normal inspection Respiratory exam: Present: normal lung sounds bilaterally. Absent: respiratory distress, wheezes, rales Cardiovascular Exam: Present: regular rate, normal rhythm GI/Abdominal exam: Present: soft, other (Mild ascites, positive fluid wave, nontender). Absent: tenderness, guarding, rebound Extremities exam: Present: normal inspection Neurological exam: Present: alert, oriented X3 (GCS 15) Psychiatric exam: Present: normal affect, normal mood Skin exam: Present: warm, dry, intact, normal color. Absent: rash Course Vital Signs 05/18/17 18:51 Temperature 97.9 F Pulse Rate 92 Respiratory 18 Rate Blood Pressure 109/53 O2 Sat by Pulse 99 Oximetry Medical Decision Making - Medical Decision Making MAPS reviewed, overdose risk score 370. Last prescription was for 20 tabs of [place], which was filled on May 09. Spoke with patient's pharmacy, [facility], spoke with pharmacist Gilmar who reviewed patient's chart, states patient has no any prescriptions, states normally gets prescriptions from primary care physician E prescriptions however there are none tending that have been sent today. He did confirm the patient has called pharmacy twice today to see if her prescription for [place] was available. Spoke with patient's PCP Dr Estrada, states he did attempt to electronically prescribed patient's pain medications, however he is having trouble with a computer systems. He requests patient be given prescription of 4 [place] tabs and patient to call office in the morning. Pt updated with recommendations and plan, Rx 4 norco tabs given. Disposition Clinical Impression: Medication refill Disposition: HOME SELF-CARE Condition: Good Instructions: Chronic Pain (ED) Additional Instructions: Follow-up at your primary care office tomorrow for refill of prescriptions. Prescriptions: HYDROcodone/APAP 7.5-325MG [[place] 7.5-325] 1 tab PO Q6HR PRN 1 Days #4 tab PRN Reason: Pain Referrals: Mark Estrada MD [Primary Care Provider] - 1-2 days
[2017-05-18] MEDS ORDERED: HYDROcodone/APAP 7.5-325MG 1 EACH TAB PO ONE (20:57)
[2017-05-18 21:23] VITALS: BP 122/58; PULSE 88
== END 2017-05-18 21:20 | disposition home or self-care (01) ==
LOC: EC 18:00
DX: Z76.0 Encounter for issue of repeat prescription (principal); R18.8 Other ascites; R40.2412 Glasgow coma scale score 13-15, at arrival to emergency department; K21.9 Gastro-esophageal reflux disease without esophagitis; F17.200 Nicotine dependence, unspecified, uncomplicated; Z86.19 Personal history of other infectious and parasitic diseases; Z85.3 Personal history of malignant neoplasm of breast; Z98.890 Other specified postprocedural states; Z79.899 Other long term (current) drug therapy
CPT/HCPCS: 99282

== ENCOUNTER 2017-06-05 19:45 | Inpatient (IN) | payer MEDICARE, OTHER ==
[2017-06-05] MEDS ORDERED: ONDANSETRON 4 MG/2 ML VIAL IVP STA (20:17)
[2017-06-05] MEDS ORDERED: SODIUM CHLORIDE 0.9% 1,000 ML IV STA (20:17)
[2017-06-05 20:27] LABS: Basophils % (A) 0 %; Eosinophils # (A) 0.1 k/uL (0-0.7); Eosinophils % (A) 2 %; HCT 29.9 % (34.0-46.0); Lymphocytes # (A) 0.2 k/uL (1.0-4.8); Lymphocytes % (A) 7 %; MCH 36.3 pg (25.0-35.0); MCHC 33.2 g/dL (31.0-37.0); Macrocytosis Marked; Mean Platelet Volume 8.2; Monocytes # (A) 0.2 k/uL (0-1.0); Monocytes % (A) 5 %; Neutrophils # (A) 2.6 k/uL (1.3-7.7); Neutrophils % (A) 84 %; Poikilocytosis Slight; RBC 2.73 m/uL (3.80-5.40); RDW 14.4 % (11.5-15.5)
[2017-06-05 20:35] LABS: HGB 9.9 gm/dL (11.4-16.0); MCV 109.6 fL (80.0-100.0); Platelet Count 88 k/uL (150-450)
[2017-06-05 20:37] LABS: ALT 21 U/L (9-52); AST 46 U/L (14-36); Albumin 2.5 g/dL (3.5-5.0); Alkaline Phosphatase 100 U/L (38-126); Amylase 35 U/L (30-110); Anion Gap 10 mmol/L; Blood Urea Nitrogen 23 mg/dL (7-17); Calcium 8.3 mg/dL (8.4-10.2); Carbon Dioxide 27 mmol/L (22-30); Chloride 98 mmol/L (98-107); Glucose 111 mg/dL (74-99); Lipase 96 U/L (23-300); Potassium 3.7 mmol/L (3.5-5.1); Sodium 135 mmol/L (137-145); Total Bilirubin 1.9 mg/dL (0.2-1.3); Total Protein 6.6 g/dL (6.3-8.2)
[2017-06-05] MEDS ORDERED: SODIUM CHLORIDE 0.9% 500 ML IV STA ×2 (20:55→21:18)
--- NOTE | 2017-06-05 20:55 | XR ---
EXAMINATION TYPE: XR KUB DATE OF EXAM: 06/05/2017 COMPARISON: 02/03/2017 HISTORY: Abdominal pain TECHNIQUE: 2 views FINDINGS: There is increased density over the entire abdomen. There is relative lack of bowel gas. I see no sign of free air. There are no pathologic calcifications over the kidneys. IMPRESSION: Generalized increased density suggestive of abdominal ascites that is new or increased co mpared to old exam. No free air.
[2017-06-05] MEDS ORDERED: MORPHINE SULFATE 4 MG/ML SYRINGE IVP STA (21:19)
[2017-06-05] MEDS ORDERED: PIPERACILLIN-TAZOBACTAM 3.375 GM in DEXTROSE/WATER 1 50ML.BAG IVPB STA (21:24)
[2017-06-05] MEDS ORDERED: NALOXONE 0.4 MG/ML 1 ML VIAL IV PRN (21:28)
[2017-06-05] MEDS ORDERED: ONDANSETRON 4 MG/2 ML VIAL IVP PRN (21:28)
--- NOTE | 2017-06-05 21:28 | ED ---
General Adult HPI - General Source: EMS, RN notes reviewed, old records reviewed Mode of arrival: EMS Limitations: no limitations <Darien Childress - Last Filed: 06/05/17 21:30> <Noah Fatima - Last Filed: 06/05/17 23:10> - General Chief complaint: Abdominal Pain Stated complaint: Flu Symptoms Time Seen by Provider: 06/05/17 20:06 - History of Present Illness Initial comments: Patient 51-year-old female with significant past medical history for cirrhosis, hepatitis C, presenting to the emergency room today with a chief complaint of increased abdominal pain and swelling. Patient does admit that she's had symptoms of nausea vomiting diarrhea over the last 3 days. She states she's had increased abdominal swelling. She does admit that she's had symptoms similar to this in the past. She does admit to a history of paracentesis in the past. Patient denies any other complaints or symptoms at this time. Patient denies any recent fever, chills, shortness of breath, chest pain, back pain, numbness or tingling, dysuria or hematuria, constipation, headaches or visual changes, or any other complaints. (Darien Childress) - Related Data Home Medications Medication Instructions Recorded Confirmed Multivitamins, Thera [Multivitamin 1 tab PO DAILY 03/05/17 06/05/17 (formulary)] Sofosbuvir/Velpatasvir [Epclusa 1 tab PO DAILY 04/30/17 06/05/17 400 mg-100 mg Tablet] traMADol HCL [Ultram] 50 mg PO Q4HR PRN 06/05/17 06/05/17 Previous Rx's Medication Instructions Recorded Furosemide [Lasix] 40 mg PO BID #60 tablet 03/18/17 Spironolactone [Aldactone] 50 mg PO BID #60 tab 03/18/17 Allergies Allergy/AdvReac Type Severity Reaction Status Date / Time No Known Allergies Allergy Verified 06/05/17 19:58 Review of Systems ROS Other: All systems not noted in ROS Statement are negative. <Darien Childress - Last Filed: 06/05/17 21:30> ROS Other: All systems not noted in ROS Statement are negative. <Noah Fatima - Last Filed: 06/05/17 23:10> ROS Statement: Those systems with pertinent positive or pertinent negative responses have been documented in the HPI. Past Medical History Past Medical History: Cancer, GERD/Reflux, GI Bleed, Hearing Disorder / Deafness , Hypertension, Liver Disease Additional Past Medical History / Comment(s): Hepatitis C, intractable ascities , cirrhosis, pancytopenia, vertigo; "benign abd mass", states has had esophageal banding, lt breast cancer had chemo last on 09-12-16-did not tolerate- completed 3 out of 4 cycles-, lt ear hearing loss, multiple upper GI bleeds. History of Any Multi-Drug Resistant Organisms: None Reported Past Surgical History: Adenoidectomy, Tonsillectomy Additional Past Surgical History / Comment(s): Paracentesises, EGD, esophageal banding, rt chest mediport 08-06-16, l breast bx. Past Anesthesia/Blood Transfusion Reactions: No Reported Reaction Additional Past Anesthesia/Blood Transfusion Reaction / Comment(s): blood transfusions- no reaction Past Psychological History: Anxiety Smoking Status: Current every day smoker Past Alcohol Use History: None Reported Past Drug Use History: None Reported - Past Family History Mother Family Medical History: Cancer Additional Family Medical History / Comment(s): of lung ca at the age of 59yrs. She was a smoker. Father Family Medical History: Myocardial Infarction ([place]) Additional Family Medical History / Comment(s): from 2nd heart attack at the age of 59yrs. <Darien Childress - Last Filed: 06/05/17 21:30> General Exam Limitations: no limitations <Darien Childress - Last Filed: 06/05/17 21:30> <Noah Fatima - Last Filed: 06/05/17 23:10> - General Exam Comments Initial Comments: General: The patient is awake and alert, in no distress, and does not appear acutely ill. Eye: Pupils are equal, round and reactive to light, extra-ocular movements are intact. No nystagmus. There is normal conjunctiva bilaterally. No signs of icterus. Ears, nose, mouth and throat: There are moist mucous membranes and no oral lesions. Neck: The neck is supple, there is no tenderness or JVD. Cardiovascular: There is a regular rate and rhythm. No murmur, rub or gallop is appreciated. Respiratory: Lungs are clear to auscultation, respirations are non-labored, breath sounds are equal. No wheezes, stridor, rales, or rhonchi. Gastrointestinal: Patient does have a large swollen abdomen. Mild tenderness diffusely. No rebound tenderness. No guarding. No CVA tenderness. Musculoskeletal: Normal ROM, no tenderness. Strength 5/5. Sensation intact. Pulses equal bilaterally 2+. Neurological: A&O x 3. CN II-XII intact, There are no obvious motor or sensory deficits. Coordination appears grossly intact. Speech is normal. Skin: Skin is warm and dry and no rashes or lesions are noted. Psychiatric: Cooperative, appropriate mood & affect, normal judgment. (Darien Childress) Vital Signs 06/05/17 06/05/17 06/05/17 19:48 20:25 21:01 Temperature 99.9 F H Pulse Rate 102 H 95 93 Respiratory 20 20 18 Rate Blood Pressure 114/58 105/58 119/60 O2 Sat by Pulse 100 97 96 Oximetry 06/05/17 06/05/17 06/05/17 21:28 21:55 22:30 Temperature 101.3 F H 100.8 F H Pulse Rate 92 96 Respiratory 16 18 Rate Blood Pressure 105/54 117/56 O2 Sat by Pulse 97 98 Oximetry Medical Decision Making - Lab Data Result diagrams: 06/05/17 20:15 06/05/17 20:15 <Darien Childress - Last Filed: 06/05/17 21:30> - Lab Data Result diagrams: 06/05/17 20:15 06/05/17 20:15 <Noah Fatima - Last Filed: 06/05/17 23:10> - Medical Decision Making Patient's labs been reviewed. Previous labs have been compared to previous white count, platelets, hemoglobin and shows similar findings. Patient's lactic acid has returned to 4.9. Patient does have a 99 temp. Currently does not meet requirements for sepsis. Patient has been given a liter bolus. Due to evidence for ascites we will hold further fluids for sepsis protocol with lactic greater than 4. Lactic will be repeated. Patient be started on antibiotics of Zosyn here in the emergency room to cover for infection. At this time she is doing well. Patient will be admitted to Dr. Estrada along with consult to GI. Case was discussed with attending physician Dr. Fatima. 2134: Patient's temperature has been taking in the emergency room is currently 11.3. Patient to have a 4.9 lactic acid. Patient is here for abdominal ascites. Patient started on antibiotics for possible spontaneous bacterial peritonitis. Started on Zosyn here in the emergency room. We will hold further IV bolus due to abdominal ascites to prevent overloading patient in increased third spacing. Patient will be admitted to ICU. (Darien Childress) EKG shows normal sinus rhythm at 89 bpm SD interval is 126 QRS is 52 QT interval 390 QTC is 474. EKG shows no ST segment elevation I spoke with Dr. Pandey and he accepted the patient for admission. I spoke with Dr. Doty he accepted the patient to the ICU. I gave the patient 30 mL of fluid per KG. I also started the patient on Zosyn in the emergency department. (Noah Fatima) - Lab Data Lab Results 06/05/17 06/05/17 06/05/17 Range/Units 20:15 20:15 20:54 WBC 3.0 L (3.8-10.6) k/uL RBC 2.73 L (3.80-5.40) m/uL Hgb 9.9 L D (11.4-16.0) gm/dL Hct 29.9 L (34.0-46.0) % MCV 109.6 H D (80.0-100.0) fL MCH 36.3 H (25.0-35.0) pg MCHC 33.2 (31.0-37.0) g/dL RDW 14.4 (11.5-15.5) % Plt Count 88 L D (150-450) k/uL Neutrophils % 84 % Lymphocytes % 7 % Monocytes % 5 % Eosinophils % 2 % Basophils % 0 % Neutrophils # 2.6 (1.3-7.7) k/uL Lymphocytes # 0.2 L (1.0-4.8) k/uL Monocytes # 0.2 (0-1.0) k/uL Eosinophils # 0.1 (0-0.7) k/uL Basophils # 0.0 (0-0.2) k/uL Poikilocytosis Slight Macrocytosis Marked Sodium 135 L (137-145) mmol/L Potassium 3.7 (3.5-5.1) mmol/L Chloride 98 (98-107) mmol/L Carbon Dioxide 27 (22-30) mmol/L Anion Gap 10 mmol/L BUN 23 H (7-17) mg/dL Creatinine 0.80 (0.52-1.04) mg/dL Est GFR (MDRD) Af Amer >60 (>60 ml/min/1.73 sqM) Est GFR (MDRD) Non-Af >60 (>60 ml/min/1.73 sqM) Glucose 111 H (74-99) mg/dL Plasma Lactic Acid Darrius 4.9 H* (0.7-2.0) mmol/L Calcium 8.3 L (8.4-10.2) mg/dL Total Bilirubin 1.9 H (0.2-1.3) mg/dL AST 46 H (14-36) U/L ALT 21 (9-52) U/L Alkaline Phosphatase 100 (38-126) U/L Total Protein 6.6 (6.3-8.2) g/dL Albumin 2.5 L (3.5-5.0) g/dL Amylase 35 (30-110) U/L Lipase 96 (23-300) U/L Critical Care Time Critical Care Time: Yes Total Critical Care Time: 35 <Noah Fatima - Last Filed: 06/05/17 23:10> Disposition Time of Disposition: 21:28 <Darien Childress - Last Filed: 06/05/17 21:30> <Noah Fatima - Last Filed: 06/05/17 23:10> Clinical Impression: Ascites, Nausea vomiting and diarrhea, SBP (spontaneous bacterial peritonitis) , Sepsis Disposition: ADMITTED IP TO THIS HOSP Condition: Stable
[2017-06-05] MEDS ORDERED: ACETAMINOPHEN IV (For NPO) 1,000 MG in EMPTY BAG 1 BAG IVPB STA (21:32)
--- NOTE | 2017-06-05 21:37 | XR ---
EXAMINATION TYPE: XR chest 2V DATE OF EXAM: 06/05/2017 COMPARISON: 2.8.18 HISTORY: Nausea and vomiting TECHNIQUE: Frontal and lateral views of the chest are obtained. FINDINGS: There is no heart failure. There is patchy density at the left lung base. There is right c entral venous catheter with tip in the right atrium. There is no sign of a pneumothorax. I see no ple ural effusion. IMPRESSION: There is some mild atelectasis at the left lung base that is increased compared to last exam. Normal heart. No heart failure. Mild left lower lobe pneumonia cannot be entirely excluded.
[2017-06-05] MEDS ORDERED: SODIUM CHLORIDE 0.9% 1,000 ML IV ONE (22:04)
[2017-06-05] MEDS ORDERED: SODIUM CHLORIDE 0.9% 500 ML IV ONE (22:04)
[2017-06-05 23:57] LABS: Glucose,Whole Blood 97 mg/dL (75-99)
[2017-06-06] MEDS: MORPHINE SULFATE 4 MG/ML SYRINGE IV PRN ×2 (00:40→19:56)
[2017-06-06 02:39] LABS: Amorphous Sediment,Urine Moderate /hpf; Appearance,Urine Turbid (Clear); Bilirubin,Urine Negative (Negative); Blood,Urine Negative (Negative); Color,Urine Light Brown; Glucose,Urine (UA) Negative (Negative); Hyaline Casts,Urine 12 /lpf (0-2); Ketones,Urine Negative (Negative); Leukocyte Esterase,Urine Negative (Negative); Mucus,Urine Few /hpf; PH, Urine 5.5 (5.0-8.0); Protein,Urine Trace (Negative); Specific Gravity,Urine 1.029 (1.001-1.035); Squamous Epithelial Cell,Urine 1 /hpf (0-4); Urobilinogen,Urine <2.0 mg/dL (<2.0); WBC,Urine 77 /hpf (0-5)
[2017-06-06] MEDS ORDERED: ACETAMINOPHEN TAB 325 MG TAB PO PRN (03:00)
[2017-06-06] MEDS: IBUPROFEN IV 800 MG in SODIUM CHLORIDE 0.9% 250 ML IV SCH ×4 (03:01→19:13)
[2017-06-06] MEDS ORDERED: NALOXONE 0.4 MG/ML 1 ML VIAL IV PRN (03:59)
[2017-06-06 05:09] LABS: HCT 24.9 % (34.0-46.0); MCH 35.4 pg (25.0-35.0); MCHC 32.1 g/dL (31.0-37.0); MCV 110.5 fL (80.0-100.0); Macrocytosis Marked; Mean Platelet Volume 8.3; Poikilocytosis Slight; RBC 2.25 m/uL (3.80-5.40); RDW 14.3 % (11.5-15.5)
[2017-06-06 05:22] LABS: ALT 23 U/L (9-52); AST 30 U/L (14-36); Albumin 1.9 g/dL (3.5-5.0); Alkaline Phosphatase 72 U/L (38-126); Anion Gap 5 mmol/L; Blood Urea Nitrogen 22 mg/dL (7-17); Calcium 7.5 mg/dL (8.4-10.2); Carbon Dioxide 28 mmol/L (22-30); Chloride 103 mmol/L (98-107); Glucose 90 mg/dL (74-99); Phosphorus 3.2 mg/dL (2.5-4.5); Potassium 3.1 mmol/L (3.5-5.1); Sodium 136 mmol/L (137-145); Total Bilirubin 1.7 mg/dL (0.2-1.3); Total Protein 5.1 g/dL (6.3-8.2)
[2017-06-06 05:28] LABS: WBC 1.6 k/uL (3.8-10.6)
[2017-06-06 05:53] LABS: Eosinophils # (M) 0.02 k/uL (0-0.7); Lymphocytes # (M) 0.19 k/uL (1.0-4.8); Monocytes # (M) 0.19 k/uL (0-1.0); Neutrophils % (M) 75 %; Nucleated Red Blood Cells 0 /100 WBC (0-0); Total Cells Counted 100
[2017-06-06 05:54] LABS: Large Platelets Present; Platelet Count 71 k/uL (150-450); Reactive Lymphocytes Present
[2017-06-06 06:27] VITALS: BMI 27.3
[2017-06-06] MEDS: SODIUM CHLORIDE 0.9% 1,000 ML IV SCH ×2 (08:00→19:13)
[2017-06-06] MEDS ORDERED: Potassium Replacement Protocol 1 EACH MISC MISCELLANE PRN ×2 (08:21→20:09)
[2017-06-06] MEDS: POTASSIUM CHLORIDE 10 MEQ in SODIUM CHLORIDE 0.9% 100 ML IVPB SCH ×2 (08:22→08:33)
[2017-06-06] MEDS: PANTOPRAZOLE 40 MG/10 ML VIAL IV SCH (08:32)
[2017-06-06] MEDS: MAGNESIUM SULFATE-D5W PMX 1 GM in DEXTROSE/WATER 1 100ML.BAG IVPB SCH ×2 (08:32→09:30)
[2017-06-06] MEDS: HEPARIN SODIUM,PORCINE 5,000 UNIT/ML 1 ML VIAL SQ SCH ×2 (08:32→09:00)
[2017-06-06] MEDS: POTASSIUM CHLORIDE ER 20 MEQ TAB.ER PO SCH ×4 (08:38→13:56)
[2017-06-06] MEDS: PIPERACILLIN-TAZOBACTAM 3.375 GM in DEXTROSE/WATER 1 50ML.BAG IVPB SCH ×2 (09:00→16:48)
[2017-06-06] MEDS: NICOTINE 14MG/24HR PATCH TRANSDERM SCH (10:20)
[2017-06-06] MEDS: NOREPINEPHRIN 4 MG-0.9% NS PMX 4 MG/250 ML ML IV SCH (11:26)
--- NOTE | 2017-06-06 12:20 | P.CNPUL ---
History of Present Illness Consult date: 06/06/17 Reason for consult: other Chief complaint: Abdominal pain, ascites, low blood pressure. History of present illness: Consult dated 06/06/2017 This is a 51-year-old female with a significant past medical history of chronic alcoholic liver disease, alcoholic cirrhosis, hepatitis C, ascites, esophageal varices, hypertension, breast cancer, who presents to the emergency department with complaints of increasing abdominal pain and swelling. The patient also had complaints of nausea and vomiting and diarrhea over the last 3 days. Her ascites has increased significantly. She is currently in the ICU and room 616 bed 1. She's had multiple paracentesis in the past. They're typically large- volume procedures. I'm not sure if they're done by GI or interventional radiology. She apparently denies any fever chills. Denies any shortness of breath. Really denies any pain per se. She has a history of gastroesophageal reflux disease, GI bleeding deafness hypertension chronic liver disease hepatitis C alcoholic abuse cirrhosis pancytopenia ascites breast cancer previous adenoidectomy and tonsillectomy. She is also had esophageal banding for her esophageal varices. Currently, the patient's on O2 at 2 L by nasal cannula and a saline IV at 100 mL an hour. Review of Systems A 12 point review of system is only positive for increasing abdominal girth and some mild abdominal pain. She also complains of nausea and vomiting and diarrhea. Feeling weak. No pain. No respiratory issues. Past Medical History Past Medical History: Cancer, GERD/Reflux, GI Bleed, Hearing Disorder / Deafness , Hypertension, Liver Disease Additional Past Medical History / Comment(s): Hepatitis C, intractable ascities , cirrhosis, pancytopenia, vertigo; "benign abd mass", states has had esophageal banding, lt breast cancer had chemo last on 09-12-16-did not tolerate- completed 3 out of 4 cycles-, lt ear hearing loss, multiple upper GI bleeds. History of Any Multi-Drug Resistant Organisms: None Reported Past Surgical History: Adenoidectomy, Tonsillectomy Additional Past Surgical History / Comment(s): Paracentesises, EGD, esophageal banding, rt chest mediport 08-06-16, l breast bx. Past Anesthesia/Blood Transfusion Reactions: No Reported Reaction Additional Past Anesthesia/Blood Transfusion Reaction / Comment(s): blood transfusions- no reaction Past Psychological History: Anxiety Additional Psychological History / Comment(s): Has a history of hepatitis C with esophageal variceal bleeds requiring banding several years ago. denies any drug use. No experience. No international travel. No animal exposures. pt's son lives with her.2 story home 1 front step. pt's bathroom and bedroom on 2nd floor.has a bsc at home. Smoking Status: Current every day smoker Past Alcohol Use History: None Reported Additional Past Alcohol Use History / Comment(s): pt started smoking at age 13 quit few months ago stated was smoking 2 cig per day Pt states she has never been a drinker. Past Drug Use History: None Reported - Past Family History Mother Family Medical History: Cancer Additional Family Medical History / Comment(s): of lung ca at the age of 59yrs. She was a smoker. Father Family Medical History: Myocardial Infarction ([place]) Additional Family Medical History / Comment(s): from 2nd heart attack at the age of 59yrs. Medications and Allergies Home Medications Medication Instructions Recorded Confirmed Type Multivitamins, Thera [Multivitamin 1 tab PO DAILY 03/05/17 06/05/17 History (formulary)] Furosemide [Lasix] 40 mg PO BID #60 tablet 03/18/17 06/05/17 Rx Spironolactone [Aldactone] 50 mg PO BID #60 tab 03/18/17 06/05/17 Rx Sofosbuvir/Velpatasvir [Epclusa 1 tab PO DAILY 04/30/17 06/05/17 History 400 mg-100 mg Tablet] traMADol HCL [Ultram] 50 mg PO Q4HR PRN 06/05/17 06/05/17 History Allergies Allergy/AdvReac Type Severity Reaction Status Date / Time No Known Allergies Allergy Verified 06/05/17 19:58 Physical Exam Osteopathic Statement: *. No significant issues noted on an osteopathic structural exam other than those noted in the History and Physical/Consult. Vitals: Vital Signs Temp Pulse Resp BP Pulse Ox 06/06/17 12:00 97.9 F 65 14 86/46 98 06/06/17 11:30 65 11 L 83/48 98 06/06/17 11:00 72 11 L 70/43 97 06/06/17 10:30 63 13 70/43 98 03/03/18 10:00 61 15 81/47 98 06/06/17 09:30 66 15 81/47 98 06/06/17 09:00 73 12 73/43 99 06/06/17 08:30 68 13 73/43 98 06/06/17 08:00 68 98 06/06/17 07:30 70 98 06/06/17 07:13 97 06/06/17 07:00 72 97 06/06/17 06:30 75 97 06/06/17 06:00 98 F 81 12 98 06/06/17 05:30 80 89/51 97 06/06/17 05:00 80 88/54 98 06/06/17 04:30 79 86/51 98 06/06/17 04:00 98.3 F 77 88/52 99 06/06/17 03:30 76 89/51 98 06/06/17 03:06 16 06/06/17 03:00 77 84/49 98 06/06/17 02:30 76 16 86/55 98 06/06/17 02:00 82 15 88/51 98 06/06/17 01:30 78 16 90/54 98 06/06/17 01:00 80 15 88/52 96 06/06/17 00:30 88 16 83/50 93 L 06/06/17 00:00 98.3 F 83 18 97/55 98 06/05/17 23:47 88 97/55 93 L 06/05/17 23:17 99.8 F H 92 16 90/54 95 06/05/17 22:30 100.8 F H 06/05/17 21:55 96 18 117/56 98 06/05/17 21:28 101.3 F H 92 16 105/54 97 06/05/17 21:01 93 18 119/60 96 06/05/17 20:25 95 20 105/58 97 06/05/17 19:48 99.9 F H 102 H 20 114/58 100 Intake and Output 06/05/17 06/06/17 06/06/17 22:59 06:59 14:59 Intake Total 600 621.437 Output Total 165 30 Balance 435 591.437 Intake: IV 600 500 Sodium Chloride 0.9% 1, 600 500 000 ml @ 100 mls/hr IV . Q10H [facility] Rx#:[id number] Intake, IV Titration 1.437 Amount Norepinephrin 4 mg-0.9% 1.437 Ns Pmx 4 mg In 250 ml @ Titrate IV .Q0M [facility] Rx#: [id number] Oral 120 Output: Urine 165 30 Other: Voiding Method Indwelling Catheter Weight 83.915 kg No acute distress, oriented 3. HEENT examination is grossly unremarkable. Mucous membranes are moist. No oral lesions. Neck supple. Full range of motion. No adenopathy thyromegaly or neck vein distention. Cardiovascular examination reveals regular rhythm rate. S1-S2 normal. No S3 or S4. No discernible murmur noted. Lungs reveal clear breath sounds. Her sounds are equal bilaterally. No adventitious lung sounds including wheezes rhonchi or crackles. Abdomen is significantly distended with significant ascites and a fluid wave. She's tender on palpation. Extremities are intact. There is mild edema bilaterally. Skin is without rash or lesion. Neurologic examination is brief but nonfocal. Results - Laboratory Findings CBC and BMP: 06/06/17 04:56 06/06/17 11:17 Abnormal lab findings: Abnormal Labs 06/05/17 06/05/17 06/05/17 00:50 20:15 20:15 WBC 3.0 L RBC 2.73 L Hgb 9.9 L D Hct 29.9 L MCV 109.6 H D MCH 36.3 H Plt Count 88 L D Neutrophils # (Manual) Lymphocytes # 0.2 L Lymphocytes # (Manual) Sodium 135 L Potassium BUN 23 H Glucose 111 H Plasma Lactic Acid Darrius Calcium 8.3 L Total Bilirubin 1.9 H AST 46 H Total Protein Albumin 2.5 L Urine Appearance Turbid H Urine Protein Trace H Urine WBC 77 H Amorphous Sediment Moderate H Hyaline Casts 12 H Urine Mucus Few H 06/05/17 06/06/17 06/06/17 20:54 04:56 04:56 WBC 1.6 L* RBC 2.25 L Hgb 8.0 L D Hct 24.9 L MCV 110.5 H MCH 35.4 H Plt Count 71 L Neutrophils # (Manual) 1.20 L Lymphocytes # Lymphocytes # (Manual) 0.19 L Sodium 136 L Potassium 3.1 L BUN 22 H Glucose Plasma Lactic Acid Darrius 4.9 H* Calcium 7.5 L Total Bilirubin 1.7 H AST Total Protein 5.1 L Albumin 1.9 L Urine Appearance Urine Protein Urine WBC Amorphous Sediment Hyaline Casts Urine Mucus 06/06/17 11:17 WBC RBC Hgb Hct MCV MCH Plt Count Neutrophils # (Manual) Lymphocytes # Lymphocytes # (Manual) Sodium Potassium 3.2 L BUN Glucose Plasma Lactic Acid Darrius Calcium Total Bilirubin AST Total Protein Albumin Urine Appearance Urine Protein Urine WBC Amorphous Sediment Hyaline Casts Urine Mucus - Diagnostic Findings Chest x-ray: image reviewed (Labs x-rays a medications are reviewed.) Assessment and Plan Assessment: Profound ascites, with abdominal pain, rule out spontaneous bacterial peritonitis History of severe alcoholic liver disease with cirrhosis and esophageal varices History of hepatitis C 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 History of GI bleed History of multiple previous therapeutic paracentesis History of esophageal banding for bleeding esophageal varices Plan: Plan dated 06/06/2017 The patient will get some additional fluid for hypotension. In addition, we'll start the patient on some also have a consultation with interventional radiology for a large-volume paracentesis. Labs x-rays a medications are reviewed. The patient's prognosis is poor. We do ask about CODE STATUS. The time being, she would want everything done should she have a cardiopulmonary arrest but would not want to be on life support indefinitely. Meds labs and x -rays are reviewed. Her gnosis is poor. Time with Patient: Greater than 30
[2017-06-06 14:17] LABS: Hemoglobin A1C 3.8 % (4.0-6.0)
[2017-06-06] MEDS ORDERED: POTASSIUM CHLORIDE ER 20 MEQ TAB.ER PO STA (15:56)
--- NOTE | 2017-06-06 16:42 | HP ---
HISTORY AND PHYSICAL CHIEF COMPLAINT: Abdominal pain, ascites and low-grade fever. HISTORY OF PRESENT ILLNESS: This is another admission for this 51-year-old white female who has a history of alcoholism, hepatitis C, cirrhosis and carcinoma of the breast. She presented in the emergency room once again with her ascites and some abdominal discomfort, but this time she had a temperature. Lactic acid was over 4. REVIEW OF SYSTEMS: She has had no confusion, headache, cough, hemoptysis, chest pain, vomiting, diarrhea, jaundice, urinary complaints, etc. PAST MEDICAL HISTORY, FAMILY HISTORY, PERSONAL AND SOCIAL HISTORIES: Are all otherwise unchanged from recent admitting and discharge summaries. LABORATORY STUDIES: Revealed a platelet count around 71,000, white count 1200. PHYSICAL EXAM: Blood pressure 71/35 with a pulse of 83, respirations of 36, and temperature of 100.6. In general, she appeared to be chronically ill, but no different than usual. Skin was dry. Head, ears, eyes, nose, mouth, and throat were normal. Neck was supple. Chest was clear and the cardiac exam demonstrated sinus rhythm and the abdomen was protuberant, soft and slightly tender. Extremities were unchanged. Neurologically, she is awake and alert. IMPRESSION: 1. Sepsis. 2. Rule out peritonitis. 3. Intractable ascites. 4. Cirrhosis. 5. Hepatitis C. 6. Carcinoma of the breast. PLAN: 1. Bed rest. 2. Consult with Intensive Medicine, Hematology/Oncology and Infectious Disease. MMODL / KAREEM: [id number] /
--- NOTE | 2017-06-06 16:48 | PN ---
PROGRESS NOTE DATE OF SERVICE: 06/06/2017. CHIEF COMPLAINT: Sepsis. HISTORY OF PRESENT ILLNESS: This lady is comfortable and oriented and alert. She is not having a lot of pain. PHYSICAL EXAM: Chest is clear and cardiac exam is normal. Abdomen is soft and protuberant and nontender. Extremities normal. IMPRESSION: 1. Septicemia. 2. Cirrhosis. 3. Ascites. PLAN: Continue with IV fluids and antibiotics and sepsis management. MMODL / IJN: [id number] /
[2017-06-06] MEDS ORDERED: POTASSIUM CHLORIDE ER 20 MEQ TAB.ER PO SCH (20:15)
[2017-06-06] MEDS: HYDROcodone/APAP 5-325MG 1 EACH TAB PO PRN (22:40)
--- NOTE | 2017-06-06 23:54 | CONS ---
CONSULTATION DATE OF CONSULTATION: 06/06/2017. REASON FOR CONSULTATION: Sepsis. HISTORY OF PRESENT ILLNESS: The patient is a 51-year-old female, past medical history significant for liver cirrhosis from chronic hepatitis C. The patient has required multiple large volume abdominal paracentesis, the last 1 has been about a month ago. The patient said she has been feeling better over the last 1 month and she has been keep on putting off her paracentesis, presenting to the ER at [facility] yesterday with the chief complaint of worsening abdominal distention along with nausea, vomiting and some diarrhea. The patient's symptom has been getting worse for the last 2-3 days. On presentation to hospital did have significant abdominal distention and swelling with associated abdominal pain mostly dull aching pain 3 to 4/10, and no radiation with nausea, vomiting and diarrhea. On arrival to the ER the patient did have fever of 101.3 degrees Fahrenheit. The patient was hypertensive with systolic down to 73. For which the patient received fluid boluses and Lopressor and has been admitted to the ICU. The patient was noticed to be in a leukopenic with white count 3, repeat is 1.61. Urine was not significantly positive. She did have a chest x-ray which showed some atelectasis. Abdominal x-rays were negative for any free air. The patient was started on Zosyn and admitted to ICU. Infectious disease consulted for further recommendation regarding antibiotic therapy. REVIEW OF SYSTEMS: Constitutional: Positive for weakness along with the fever. Eyes: No complaint. ENT no complaint. Respiratory no complaint. Cardiovascular no complaint. Genitourinary no complaint. Genitourinary: No complaint. Gastrointestinal: As per HPI. Musculoskeletal no complaint. Integument no complaint. Psychological no complaint. Endocrine no complaint. Neurological no complaint. PAST MEDICAL HISTORY: Significant for hepatitis C, history of liver cirrhosis, gastroesophageal reflux disease, hypertension, left breast cancer. PAST SURGICAL HISTORY: Adenoidectomy, tonsillectomy, paracentesis, EGD, dysphagia with pain in the right chest MediPort placement and breast biopsy. SOCIAL HISTORY: Current everyday smoker. No drinking or drug use. FAMILY HISTORY: Mother of lung cancer age of 59. Father of heart attack at age of 59 as well. ALLERGIES: No known drug allergies. MEDICATIONS: Include the patient is currently on [place], Motrin, morphine sulfate, Narcan, nicotine patch, Levophed, Zofran, Protonix, Piptazobactam. EXAMINATION: Blood pressure is 92/53 with a pulse of 74, temperature is 98.3, T-max is 101.3, she is 98% on 2 L nasal cannula. General description is a middle-aged female lying in bed in no distress. No tachypnea or accessory muscle of respiration use. HEENT: Shows pallor. No scleral icterus. Oral mucosa membranes dry. Neck trachea central. No thyromegaly. Lungs unlabored breathing, decreased breath sounds in the bases. No wheeze or crackles. Heart S1, S2. Regular rate and rhythm. ABDOMEN: Soft, distended, mildly tender in lower quadrant area. No guarding. No rigidity. Extremities 2+ edema of the feet. Skin examination: No rashes or mass palpable. Neurological patient is awake, alert, oriented x3. Mood and affect normal. LABS: Hemoglobin 8 with white count 1.6, BUN of 22, creatinine 0.81, potassium 3.9. The urine turbid from white cell, leukocyte esterase was negative. Otherwise, urine culture currently pending. Chest x-ray were negative for consolidation. Did show some atelectasis. Abdominal x-ray is no free air. DIAGNOSTIC IMPRESSION AND PLAN: 1. Patient with sepsis in a patient who did have a fever of 101.3. The patient did have hypertensive with a systolic down to 80s and tachycardia on admission along with leukopenia, meeting criteria for SIRS/sepsis. Source is likely spontaneous bacterial peritonitis and no other clinical focus of infection. No significant respiratory symptoms on clinical findings on examination of the lungs. Urine did show some white cells, but no significant leukocyte esterases. She denies any symptoms of any burning. No cellulitis or any joint swelling, more likely from enteric gram-negative pathogen. 2. Patient with chronic hepatitis C, currently on treatment with . PLAN: 1. The patient will be given Zosyn to cover for the possible gram-negative responsible for the ERCP. 2. Await the paracentesis at which time, fluid should be sent for cell count, differential, protein in addition to the gram stain and culture. 3. High and pressors per the payroll accounting clerk team. 4. wanted to continue for chronic hepatitis C. 5. We will follow up on clinical condition and culture to further adjust medication if needed. Thank you for this consultation. We will follow this patient along with you. MMODL / IJN: [id number] /
[2017-06-07] MEDS: MORPHINE SULFATE 4 MG/ML SYRINGE IV PRN ×5 (00:53→23:05)
[2017-06-07] MEDS: IBUPROFEN 800 MG TAB PO SCH ×5 (00:54→23:05)
[2017-06-07] MEDS: PIPERACILLIN-TAZOBACTAM 3.375 GM in DEXTROSE/WATER 1 50ML.BAG IVPB SCH ×4 (00:54→23:05)
[2017-06-07 04:30] LABS: HCT 26.2 % (34.0-46.0); HGB 8.5 gm/dL (11.4-16.0); MCH 35.7 pg (25.0-35.0); MCHC 32.3 g/dL (31.0-37.0); MCV 110.8 fL (80.0-100.0); Macrocytosis Marked; Mean Platelet Volume 8.4; Poikilocytosis Slight; RBC 2.37 m/uL (3.80-5.40); RDW 14.4 % (11.5-15.5)
[2017-06-07 04:41] LABS: Blood Urea Nitrogen 23 mg/dL (7-17); Calcium 7.6 mg/dL (8.4-10.2); Chloride 106 mmol/L (98-107); Glucose 100 mg/dL (74-99); Phosphorus 2.9 mg/dL (2.5-4.5); Potassium 3.9 mmol/L (3.5-5.1); Sodium 137 mmol/L (137-145)
[2017-06-07 04:56] LABS: Platelet Count 89 k/uL (150-450)
[2017-06-07 05:07] LABS: Anion Gap 3 mmol/L; Carbon Dioxide 28 mmol/L (22-30)
[2017-06-07] MEDS: SODIUM CHLORIDE 0.9% 1,000 ML IV SCH ×3 (05:31→23:05)
[2017-06-07 05:48] LABS: Eosinophils # (M) 0.12 k/uL (0-0.7); Lymphocytes # (M) 0.63 k/uL (1.0-4.8); Monocytes # (M) 0.39 k/uL (0-1.0); Neutrophils # (M) 1.86 k/uL (1.3-7.7); Neutrophils % (M) 62 %; Nucleated Red Blood Cells 0 /100 WBC (0-0); Total Cells Counted 100
[2017-06-07] MEDS ORDERED: POTASSIUM CHLORIDE ER 20 MEQ TAB.ER PO SCH (06:00)
[2017-06-07] MEDS ORDERED: SOFOSBUVIR PO SCH (09:00)
[2017-06-07] MEDS ORDERED: VELPATASVIR PO SCH (09:00)
--- NOTE | 2017-06-07 09:14 | P.CONS ---
History of Present Illness - Reason for Consult Consult date: 06/06/17 Abdominal distension - History of Present Illness The patient is a 51-year-old female with history of breast carcinoma presented to the emergency center with marked increased abdominal distention, increasing abdominal pain and increasing shortness of breath. She also reported nausea vomiting and diarrhea for the last 3 days or so. Patient has a long-standing history of hepatitis C with significant cirrhosis and is noted his back, complicated by her breast carcinoma. She is in need of a paracentesis and has required repeated large volume paracentesis in the past with marked improvement in her symptoms. She at this time is denying high-grade fevers chills rigors or sweats. Denies hematemesis or hematochezia. Review of Systems Constitutional: Denies fever, chills, sweats, weight gain, or loss. HEENT: Negative for migraines, blurred vision or loss, earaches, drainage, tinnitus, oral mucosal lesions, dysphagia, or odynophagia. Cardiac: Negative for chest pain, arrhythmias, or palpitation. Respiratory: Negative for shortness of breath, hemoptysis, cough, or sputum production. Gastrointestinal: See HPI for pertinent findings. Genitourinary: Negative for hematuria, urgency, frequency, polyuria, dysuria. Musculoskeletal: Negative for muscle aches, swelling, arthritis, and arthralgias. Neurologic: Negative for stroke or TIA. Endocrine: Negative for thyroid problems. Skin: Negative for rash or itching. Psychiatric: Negative history for depression and anxiety Past Medical History Past Medical History: Cancer, GERD/Reflux, GI Bleed, Hearing Disorder / Deafness , Hypertension, Liver Disease Additional Past Medical History / Comment(s): Hepatitis C, intractable ascities , cirrhosis, pancytopenia, vertigo; "benign abd mass", states has had esophageal banding, lt breast cancer had chemo last on 09-12-16-did not tolerate- completed 3 out of 4 cycles-, lt ear hearing loss, multiple upper GI bleeds. History of Any Multi-Drug Resistant Organisms: None Reported Past Surgical History: Adenoidectomy, Tonsillectomy Additional Past Surgical History / Comment(s): Paracentesises, EGD, esophageal banding, rt chest mediport 08-06-16, l breast bx. Past Anesthesia/Blood Transfusion Reactions: No Reported Reaction Additional Past Anesthesia/Blood Transfusion Reaction / Comm: blood transfusions - no reaction Past Psychological History: Anxiety Additional Psychological History / Comment(s): Has a history of hepatitis C with esophageal variceal bleeds requiring banding several years ago. denies any drug use. No experience. No international travel. No animal exposures. pt's son lives with her.2 story home 1 front step. pt's bathroom and bedroom on 2nd floor.has a bsc at home. Smoking Status: Current every day smoker Past Alcohol Use History: None Reported Additional Past Alcohol Use History / Comment(s): pt started smoking at age 13 quit few months ago stated was smoking 2 cig per day Pt states she has never been a drinker. Past Drug Use History: None Reported - Past Family History Mother Family Medical History: Cancer Additional Family Medical History / Comment(s): of lung ca at the age of 59yrs. She was a smoker. Father Family Medical History: Myocardial Infarction (HI) Additional Family Medical History / Comment(s): from 2nd heart attack at the age of 59yrs. Medications and Allergies Home Medications Medication Instructions Recorded Confirmed Type Multivitamins, Thera [Multivitamin 1 tab PO DAILY 03/05/17 06/05/17 History (formulary)] Furosemide [Lasix] 40 mg PO BID #60 tablet 03/18/17 06/05/17 Rx Spironolactone [Aldactone] 50 mg PO BID #60 tab 03/18/17 06/05/17 Rx Sofosbuvir/Velpatasvir [Epclusa 1 tab PO DAILY 04/30/17 06/05/17 History 400 mg-100 mg Tablet] traMADol HCL [Ultram] 50 mg PO Q4HR PRN 06/05/17 06/05/17 History Allergies Allergy/AdvReac Type Severity Reaction Status Date / Time No Known Allergies Allergy Verified 06/05/17 19:58 Physical Exam Vitals: Vital Signs Temp Pulse Resp BP Pulse Ox 06/06/17 08:00 68 98 06/06/17 07:30 70 98 06/06/17 07:13 97 06/06/17 07:00 72 97 06/06/17 06:30 75 97 06/06/17 06:00 98 F 81 12 98 06/06/17 05:30 80 89/51 97 06/06/17 05:00 80 88/54 98 06/06/17 04:30 79 86/51 98 06/06/17 04:00 98.3 F 77 88/52 99 06/06/17 03:30 76 89/51 98 06/06/17 03:06 16 06/06/17 03:00 77 84/49 98 06/06/17 02:30 76 16 86/55 98 06/06/17 02:00 82 15 88/51 98 06/06/17 01:30 78 16 90/54 98 06/06/17 01:00 80 15 88/52 96 06/06/17 00:30 88 16 83/50 93 L 06/06/17 00:00 98.3 F 83 18 97/55 98 06/05/17 23:47 88 97/55 93 L 06/05/17 23:17 99.8 F H 92 16 90/54 95 06/05/17 22:30 100.8 F H 06/05/17 21:55 96 18 117/56 98 06/05/17 21:28 101.3 F H 92 16 105/54 97 06/05/17 21:01 93 18 119/60 96 06/05/17 20:25 95 20 105/58 97 06/05/17 19:48 99.9 F H 102 H 20 114/58 100 Intake and Output 06/05/17 06/06/17 06/06/17 22:59 06:59 14:59 Intake Total 600 100 Output Total 165 20 Balance 435 80 Intake: IV 600 100 Sodium Chloride 0.9% 1, 600 100 000 ml @ 100 mls/hr IV . Q10H STA Rx#:[id number] Output: Urine 165 20 Other: Voiding Method Indwelling Catheter Weight 83.915 kg General appearance: The patient is alert, oriented, in no acute distress. HET: Head is normocephalic and atraumatic. Pupils are equal and reactive. Oropharynx is clear without lesions. Neck: Supple without lymphadenopathy. Trachea midline. Heart: S1 S2. Regular rate and rhythm. Lungs: No crackles or wheezes are heard. Abdomen: Soft, distended with fluid wave with bowel sounds. No peritoneal signs. No palpable organomegaly or masses. Extremities: Normal skin color and turgor. No cyanosis, rash, ulceration, clubbing, or edema. Radial and pedal pulses are 2/4 bilaterally. Neurological: No focal deficits. Strength and sensation are grossly intact. Results CBC & Chem 7: 06/07/17 03:59 06/07/17 03:59 Labs: Abnormal Lab Results - Last 24 Hours (Table) 06/05/17 06/05/17 06/05/17 Range/Units 00:50 20:15 20:15 WBC 3.0 L (3.8-10.6) k/uL RBC 2.73 L (3.80-5.40) m/uL Hgb 9.9 L D (11.4-16.0) gm/dL Hct 29.9 L (34.0-46.0) % MCV 109.6 H D (80.0-100.0) fL MCH 36.3 H (25.0-35.0) pg Plt Count 88 L D (150-450) k/uL Neutrophils # (Manual) (1.3-7.7) k/uL Lymphocytes # 0.2 L (1.0-4.8) k/uL Lymphocytes # (Manual) (1.0-4.8) k/uL Sodium 135 L (137-145) mmol/L Potassium (3.5-5.1) mmol/L BUN 23 H (7-17) mg/dL Glucose 111 H (74-99) mg/dL Plasma Lactic Acid [place] (0.7-2.0) mmol/L Calcium 8.3 L (8.4-10.2) mg/dL Total Bilirubin 1.9 H (0.2-1.3) mg/dL AST 46 H (14-36) U/L Total Protein (6.3-8.2) g/dL Albumin 2.5 L (3.5-5.0) g/dL Urine Appearance Turbid H (Clear) Urine Protein Trace H (Negative) Urine WBC 77 H (0-5) /hpf Amorphous Sediment Moderate H (None) /hpf Hyaline Casts 12 H (0-2) /lpf Urine Mucus Few H (None) /hpf 06/05/17 06/06/17 06/06/17 Range/Units 20:54 04:56 04:56 WBC 1.6 L* (3.8-10.6) k/uL RBC 2.25 L (3.80-5.40) m/uL Hgb 8.0 L D (11.4-16.0) gm/dL Hct 24.9 L (34.0-46.0) % MCV 110.5 H (80.0-100.0) fL MCH 35.4 H (25.0-35.0) pg Plt Count 71 L (150-450) k/uL Neutrophils # (Manual) 1.20 L (1.3-7.7) k/uL Lymphocytes # (1.0-4.8) k/uL Lymphocytes # (Manual) 0.19 L (1.0-4.8) k/uL Sodium 136 L (137-145) mmol/L Potassium 3.1 L (3.5-5.1) mmol/L BUN 22 H (7-17) mg/dL Glucose (74-99) mg/dL Plasma Lactic Acid [place] 4.9 H* (0.7-2.0) mmol/L Calcium 7.5 L (8.4-10.2) mg/dL Total Bilirubin 1.7 H (0.2-1.3) mg/dL AST (14-36) U/L Total Protein 5.1 L (6.3-8.2) g/dL Albumin 1.9 L (3.5-5.0) g/dL Urine Appearance (Clear) Urine Protein (Negative) Urine WBC (0-5) /hpf Amorphous Sediment (None) /hpf Hyaline Casts (0-2) /lpf Urine Mucus (None) /hpf Assessment and Plan Assessment: Intractable ascites, should rule out spontaneous bacterial peritonitis Plan: Agree with your current management. Will request ultrasound-guided large volume paracentesis. Further plans based on her course and fluid findings. We will follow with you with interest.
[2017-06-07] MEDS: NICOTINE 14MG/24HR PATCH TRANSDERM SCH (10:09)
[2017-06-07] MEDS: PANTOPRAZOLE 40 MG/10 ML VIAL IV SCH (10:09)
[2017-06-07] MEDS: HYDROcodone/APAP 5-325MG 1 EACH TAB PO PRN ×2 (10:31→18:41)
[2017-06-07] MEDS ORDERED: SODIUM CHLORIDE 0.9% 1,000 ML IV ONE (10:37)
--- NOTE | 2017-06-07 10:45 | P.PN ---
Subjective Progress Note Date: 06/07/17 Principal diagnosis: Abdominal pain secondary to profound ascites Consult dated 06/06/2017 This is a 51-year-old female with a significant past medical history of chronic alcoholic liver disease, alcoholic cirrhosis, hepatitis C, ascites, esophageal varices, hypertension, breast cancer, who presents to the emergency department with complaints of increasing abdominal pain and swelling. The patient also had complaints of nausea and vomiting and diarrhea over the last 3 days. Her ascites has increased significantly. She is currently in the ICU and room 616 bed 1. She's had multiple paracentesis in the past. They're typically large- volume procedures. I'm not sure if they're done by GI or interventional radiology. She apparently denies any fever chills. Denies any shortness of breath. Really denies any pain per se. She has a history of gastroesophageal reflux disease, GI bleeding deafness hypertension chronic liver disease hepatitis C alcoholic abuse cirrhosis pancytopenia ascites breast cancer previous adenoidectomy and tonsillectomy. She is also had esophageal banding for her esophageal varices. Currently, the patient's on O2 at 2 L by nasal cannula and a saline IV at 100 mL an hour. Progress note dated 06/07/2017 The patient is seen again today in follow-up in the intensive care unit. She remains awake and alert in no acute distress. She has not had any active GI bleeding. No further nausea or vomiting. He does have some continued abdominal discomfort. She is maintaining good O2 saturations in the 90s on 2 L/ m per nasal cannula. She is receiving 0.9 normal saline at 100 mls per hour. She does still require some pressor support with norepinephrine at 5 mcg/m. WBC 3.0. Hemoglobin 8.5. MCV 110. Platelet count 89,000. Objective - Vital Signs Vital signs: Vital Signs Temp 98.4 F 06/07/17 04:00 Pulse 62 06/07/17 07:00 Resp 13 06/07/17 07:00 BP 94/54 06/07/17 07:00 Pulse Ox 98 06/07/17 07:00 Intake & Output 06/06/17 06/07/17 06/07/17 18:59 06:59 18:59 Intake Total 9222.287 5671.625 Output Total 125 344 Balance 5459.782 6186.625 Weight 90.9 kg Intake: IV 1200 1300 Sodium Chloride 0.9% 1, 200 000 ml @ 100 mls/hr IV . Q10H RAFAEL Rx#:[id number] Sodium Chloride 0.9% 1, 1200 1100 000 ml @ 100 mls/hr IV . Q10H STA Rx#:[id number] Intake, IV Titration 1.437 80.625 Amount Norepinephrin 4 mg-0.9% 1.437 80.625 Ns Pmx 4 mg In 250 ml @ Titrate IV .Q0M RAFAEL Rx#: [id number] Oral 240 Output: Urine 125 344 Other: Voiding Method Indwelling Catheter Indwelling Catheter - Exam GENERAL EXAM: Alert, fairly comfortable in no apparent distress. HEAD: Normocephalic. EYES: Normal reaction of pupils, equal size. NOSE: Clear with pink turbinates. THROAT: No erythema or exudates. NECK: No masses, no JVD. CHEST: No chest wall deformity. LUNGS: Equal air entry with crackles in the bilateral posterior bases. CVS: S1 and S2 normal with no audible murmur, regular rhythm. ABDOMEN: Significant distention, positive fluid wave, normal bowel sounds, no guarding or rigidity. SPINE: No scoliosis or deformity SKIN: No rashes CENTRAL NERVOUS SYSTEM: No focal deficits, tone is normal in all 4 extremities. EXTREMITIES: There is no peripheral edema. No clubbing, no cyanosis. Peripheral pulses are intact. - Labs CBC & Chem 7: 06/07/17 03:59 06/07/17 03:59 Labs: Abnormal Lab Results - Last 24 Hours (Table) 06/06/17 06/06/17 06/07/17 Range/Units 04:56 11:17 03:59 WBC (3.8-10.6) k/uL RBC (3.80-5.40) m/uL Hgb (11.4-16.0) gm/dL Hct (34.0-46.0) % MCV (80.0-100.0) fL MCH (25.0-35.0) pg Plt Count (150-450) k/uL Lymphocytes # (Manual) (1.0-4.8) k/uL Potassium 3.2 L (3.5-5.1) mmol/L BUN 23 H (7-17) mg/dL Glucose 100 H (74-99) mg/dL Hemoglobin A1c 3.8 L (4.0-6.0) % Calcium 7.6 L (8.4-10.2) mg/dL 06/07/17 Range/Units 03:59 WBC 3.0 L (3.8-10.6) k/uL RBC 2.37 L (3.80-5.40) m/uL Hgb 8.5 L (11.4-16.0) gm/dL Hct 26.2 L (34.0-46.0) % MCV 110.8 H (80.0-100.0) fL MCH 35.7 H (25.0-35.0) pg Plt Count 89 L (150-450) k/uL Lymphocytes # (Manual) 0.63 L (1.0-4.8) k/uL Potassium (3.5-5.1) mmol/L BUN (7-17) mg/dL Glucose (74-99) mg/dL Hemoglobin A1c (4.0-6.0) % Calcium (8.4-10.2) mg/dL Microbiology - Last 24 Hours (Table) 06/05/17 00:50 Urine Culture - Final Urine,Catheterized 06/05/17 20:54 Blood Culture - Preliminary Blood No Growth after 24 hours Assessment and Plan Assessment: Impression: Profound ascites, with abdominal pain, rule out spontaneous bacterial peritonitis History of severe alcoholic liver disease with cirrhosis and esophageal varices History of hepatitis C 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 History of GI bleed History of multiple previous therapeutic paracentesis History of esophageal banding for bleeding esophageal varices Plan: The patient was seen and evaluated by Dr. Doty. She is currently stable from the pulmonary and critical care standpoint. She would benefit from a large volume paracentesis. This will be performed by interventional radiology tomorrow morning. She currently requires a small amount of norepinephrine otherwise he could transfer her out of the intensive care unit. Her overall prognosis is quite guarded. We'll continue to follow and make further recommendations based on her clinical status. Critical care time 35 minutes. I, the cosigning physician, performed a history & physical examination of the patient. Lungs sounds are clear. Maintaining good O2 saturations in the 90s on 2 L/m per nasal cannula. I discussed the assessment and plan of care with my nurse practitioner, Beena Anderson. I attest to the above note as dictated by her. Time with Patient: Greater than 30
--- NOTE | 2017-06-07 12:07 | PN ---
PROGRESS NOTE CHIEF COMPLAINT: Sepsis. HISTORY OF PRESENT ILLNESS: This lady is doing well. She has been awake and alert and there has been very little clinical change. Her blood pressure remains low as does her urinary output, but she has had no significant abdominal pain, fever, etc. Hemoglobin, platelets, and white count are still low. PHYSICAL EXAM: She is awake and alert. Appears chronically ill. Chest is clear. Cardiac exam is normal. Abdomen is protuberant and firm with her ascites. IMPRESSION: 1. Sepsis. 2. Cirrhosis with intractable ascites. 3. Carcinoma of the breast. 4. Pancytopenia. PLAN: No change in program and she continues to remain fairly stable on antibiotics. MMODL / IJN: [id number] /
[2017-06-07] MEDS: SOFOSBUVIR PO SCH (21:22)
[2017-06-07] MEDS: VELPATASVIR PO SCH (21:22)
--- NOTE | 2017-06-07 23:04 | PN ---
PROGRESS NOTE DATE OF SERVICE: 06/07/2017. REASON FOR FOLLOWUP: Sepsis, likely spontaneous bacterial peritonitis. INTERVAL HISTORY: The patient is afebrile. Still complaining of abdominal pain, more of a sharp, dull aching pain, 5 to 6 out of 10. No radiation. No nausea, vomiting, or any diarrhea. The patient is still requiring low dose pressor in the form of Levophed at 1 mcg. EXAMINATION: Blood pressure 90/56 with a pulse of 74, temperature 96.7, she is 92% on 4 L nasal cannula. General description is a middle-aged female lying in bed in no distress. Respiratory system: Unlabored breathing, clear to auscultation anteriorly. Heart S1, S2. Regular rate and rhythm. ABDOMEN: Soft, distended, tender to touch. Extremities: 2+ edema of the feet. LABS: Hemoglobin 8.5, white count 3.0 with a BUN of 23, creatinine 1.0. Blood culture so far negative. DIAGNOSTIC IMPRESSION AND PLAN: Patient admitted to the hospital with sepsis, source likely spontaneous bacterial peritonitis. Waiting for the paracentesis tomorrow. Fluid should be sent for the cell count, differential and culture. She will continue Zosyn adjusting it further based on the culture report. Continue supportive care. MMODL / IJN: [id number] /
[2017-06-07] MEDS: NOREPINEPHRIN 4 MG-0.9% NS PMX 4 MG/250 ML ML IV SCH (23:51)
[2017-06-08] MEDS: HYDROcodone/APAP 5-325MG 1 EACH TAB PO PRN ×3 (04:37→22:09)
[2017-06-08 05:02] LABS: Anion Gap 3 mmol/L; Blood Urea Nitrogen 24 mg/dL (7-17); Calcium 7.5 mg/dL (8.4-10.2); Carbon Dioxide 27 mmol/L (22-30); Chloride 106 mmol/L (98-107); Glucose 103 mg/dL (74-99); Phosphorus 3.3 mg/dL (2.5-4.5); Sodium 136 mmol/L (137-145)
[2017-06-08 05:19] LABS: HCT 26.5 % (34.0-46.0); HGB 8.6 gm/dL (11.4-16.0); MCH 36.2 pg (25.0-35.0); MCHC 32.5 g/dL (31.0-37.0); MCV 111.6 fL (80.0-100.0); Macrocytosis Marked; Poikilocytosis Slight; RBC 2.38 m/uL (3.80-5.40); RDW 14.6 % (11.5-15.5)
[2017-06-08 05:24] LABS: Platelet Count 83 k/uL (150-450)
[2017-06-08] MEDS: IBUPROFEN 800 MG TAB PO SCH ×4 (05:43→23:35)
[2017-06-08] MEDS: MORPHINE SULFATE 4 MG/ML SYRINGE IV PRN (05:44)
[2017-06-08 06:01] LABS: Band Neutrophils % 1 %; Eosinophils # (M) 0.24 k/uL (0-0.7); Lymphocytes # (M) 0.57 k/uL (1.0-4.8); Monocytes # (M) 0.27 k/uL (0-1.0); Neutrophils % (M) 63 %; Nucleated Red Blood Cells 0 /100 WBC (0-0); Total Cells Counted 100
[2017-06-08] MEDS: PANTOPRAZOLE 40 MG/10 ML VIAL IV SCH (08:54)
[2017-06-08] MEDS: NICOTINE 14MG/24HR PATCH TRANSDERM SCH (08:54)
[2017-06-08] MEDS: SODIUM CHLORIDE 0.9% 1,000 ML IV SCH ×3 (08:54→12:00)
[2017-06-08] MEDS: PIPERACILLIN-TAZOBACTAM 3.375 GM in DEXTROSE/WATER 1 50ML.BAG IVPB SCH ×3 (08:54→23:32)
[2017-06-08 10:37] LABS: INR 1.2 (<1.2); Prothrombin Time 11.7 sec (9.0-12.0)
--- NOTE | 2017-06-08 11:42 | P.PN ---
Subjective Progress Note Date: 06/08/17 51-year-old female patient with liver cirrhosis secondary to hepatitis C and massive ascites, admitted to the hospital because of massive overload with fluid and abdominal distention in addition to abdominal pain. The patient was briefly hypotensive and the patient was placed on pressors. ICU and currently she is off pressors. No altered mentation. No chest pain. She is awaiting a large volume paracentesis to be done by interventional radiology. She is currently on 2 L of oxygen by nasal cannula. IV fluids at 0.9 normal saline at the rate of 100 mL an hour. Urine output is in order of 5-10 mL an hour. She is resting comfortably in bed. No fever. No chills. She is on IV Zosyn. Objective - Vital Signs Vital signs: Vital Signs Temp 98.7 F 06/08/17 08:00 Pulse 69 06/08/17 11:00 Resp 20 06/08/17 11:00 BP 93/46 06/08/17 11:00 Pulse Ox 98 06/08/17 11:00 Intake & Output 06/07/17 06/08/17 06/08/17 18:59 06:59 18:59 Intake Total 2120 2053.251 100 Output Total 155 220 10 Balance 1965 1833.251 90 Weight 94.5 kg Intake: IV 1000 1200 100 Sodium Chloride 0.9% 1, 1000 1200 100 000 ml @ 100 mls/hr IV . Q10H RAFAEL Rx#:[id number] Intake, IV Titration 1000 253.251 Amount Norepinephrin 4 mg-0.9% 253.251 Ns Pmx 4 mg In 250 ml @ Titrate IV .Q0M RAFAEL Rx#: [id number] Sodium Chloride 0.9% 1, 1000 000 ml @ 500 mls/hr IV . Q2H ONE Rx#:[id number] Oral 120 600 Output: Urine 155 220 10 Other: Voiding Method Indwelling Catheter Indwelling Catheter Indwelling Catheter - Exam GENERAL EXAM: Alert, fairly comfortable in no apparent distress. HEAD: Normocephalic. EYES: Normal reaction of pupils, equal size. NOSE: Clear with pink turbinates. THROAT: No erythema or exudates. NECK: No masses, no JVD. CHEST: No chest wall deformity. LUNGS: Equal air entry with crackles in the bilateral posterior bases. CVS: S1 and S2 normal with no audible murmur, regular rhythm. ABDOMEN: Significant distention, positive fluid wave, normal bowel sounds, no guarding or rigidity. SPINE: No scoliosis or deformity SKIN: No rashes CENTRAL NERVOUS SYSTEM: No focal deficits, tone is normal in all 4 extremities. EXTREMITIES: There is no peripheral edema. No clubbing, no cyanosis. Peripheral pulses are intact. - Labs CBC & Chem 7: 06/08/17 04:30 06/08/17 04:06 Labs: Abnormal Lab Results - Last 24 Hours (Table) 06/08/17 06/08/17 06/08/17 Range/Units 04:06 04:30 10:11 WBC 3.0 L (3.8-10.6) k/uL RBC 2.38 L (3.80-5.40) m/uL Hgb 8.6 L (11.4-16.0) gm/dL Hct 26.5 L (34.0-46.0) % MCV 111.6 H (80.0-100.0) fL MCH 36.2 H (25.0-35.0) pg Plt Count 83 L (150-450) k/uL Lymphocytes # (Manual) 0.57 L (1.0-4.8) k/uL INR 1.2 H (<1.2) Sodium 136 L (137-145) mmol/L BUN 24 H (7-17) mg/dL Glucose 103 H (74-99) mg/dL Calcium 7.5 L (8.4-10.2) mg/dL Microbiology - Last 24 Hours (Table) 06/05/17 20:54 Blood Culture - Preliminary Blood No Growth after 48 hours 06/05/17 00:50 Urine Culture - Final Urine,Catheterized Assessment and Plan Plan: 1 Profound ascites, with abdominal pain, rule out spontaneous bacterial peritonitis, the patient is awaiting large volume paracentesis to be done today. The patient is hemodynamically stable currently off pressors. 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 8 History of GI bleed 9 History of multiple previous therapeutic paracentesis 10 History of esophageal banding for bleeding esophageal varices Plan Proceed with paracentesis. Replace the ascitic fluid with albumin. Kept on IV fluids to KVO. Monitor urine output. Monitor renal function. Monitor mental status. If hemodynamically stable following the paracentesis and the patient can be moved out to a medical surgical floor.
[2017-06-08] MEDS: ALBUMIN HUMAN 25% 50 ML in EMPTY BAG 1 BAG IVPB SCH ×4 (12:00→14:34)
--- NOTE | 2017-06-08 12:39 | US ---
EXAMINATION TYPE: US abdomen limited DATE OF EXAM: 06/08/2017 COMPARISON: 05/13/2017 CLINICAL HISTORY: assess for fluid. FINDINGS: There is a moderate amount of ascites within the right upper quadrant, right lower quadrant , left upper quadrant and left lower quadrant. IMPRESSION: Recurrent moderate abdominopelvic ascites.
--- NOTE | 2017-06-08 14:20 | PN ---
PROGRESS NOTE DATE OF SERVICE: 06/08/2017 CHIEF COMPLAINT: 1. Sepsis. 2. Renal failure. 3. Cirrhosis. 4. Ascites. 5. Hepatitis C. 6. Carcinoma of the breast. HISTORY OF PRESENT ILLNESS: This lady is fairly stable. She is having a little bit of pain and she is on Vicodin, but she would like it more often, which will be discouraged due to her poor hepatic function. Whenever she gets morphine, her blood pressure bottoms out. PHYSICAL EXAM: She is awake and alert and chest is clear. Cardiac exam is normal and the abdomen is very distended and firm. IMPRESSION: 1. Sepsis. 2. Renal failure. 3. Cirrhosis. 4. Alcoholism. 5. Hepatitis C. 6. Carcinoma of the breast. PLAN: Continue with supportive care and trying to keep this patient comfortable. MMODL / IJN: [id number] /
--- NOTE | 2017-06-08 15:46 | US ---
EXAMINATION TYPE: US paracentesis abd w/image DATE OF EXAM: 06/08/2017 COMPARISON: NONE HISTORY: Ascites. PROCEDURE: Maximal barrier technique was utilized. The skin overlying a suitable pocket of fluid was localized with ultrasound and the overlying skin was prepped and draped. Ultrasound was utilized with sterile technique. Lidocaine was used for local anesthesia and a skin adela made with a scalpel. Catheter was advanced under direct ultrasound guidance into a suitable pocket of fluid and approximately 11.5 lite rs of serous fluid were removed. Catheter was withdrawn and hemostasis achieved. There is no immedi ate complication; the patient is discharged in stable condition. IMPRESSION: STATUS POST ULTRASOUND GUIDED PARACENTESIS FOR PALLIATION OF ASCITES. THIS PROCEDURE WA S PERFORMED BY THE UNDERSIGNED.
[2017-06-08 16:03] LABS: Appearance,BF Clear; Color,BF Yellow; Nucleated Cells, Body Fluid 4 /uL; RBC, Body Fluid 3 /uL
[2017-06-08 19:51] LABS: Total Protein, Body Fluid 1116 mg/dL
[2017-06-08] MEDS: VELPATASVIR PO SCH (22:10)
[2017-06-08] MEDS: SOFOSBUVIR PO SCH (22:10)
--- NOTE | 2017-06-08 23:38 | PN ---
PROGRESS NOTE DATE OF SERVICE: 06/08/2017. REASON FOR FOLLOWUP: Sepsis and possible spontaneous bacterial peritonitis. INTERVAL HISTORY: The patient is afebrile. She is hemodynamically stable off the pressor support. Scheduled for a paracentesis this morning. No nausea or vomiting. No significant abdominal pain. No diarrhea. EXAMINATION: Blood pressure 101/49 with a pulse of 72, temperature is 97.4, she is 96% on room air. GENERAL DESCRIPTION: A middle aged female lying in bed in no distress. RESPIRATORY: Unlabored breathing. Clear to auscultation anteriorly. HEART: S1, S2. Regular rate and rhythm. ABDOMEN: Soft, distended. No guarding or rigidity. LABS: Hemoglobin 8.6, white count of 3.0. BUN of 24, creatinine 1.0. DIAGNOSTIC IMPRESSION AND PLAN: Patient admitted to the hospital with sepsis and patient did have significant ascites with concern for underlying spontaneous bacterial peritonitis. The patient has been on antibiotics for a couple of days now. That will make those cultures to be negative. She will continue Zosyn at this point waiting for the culture to finalize. For hepatitis C, for the patient continue on . Continue supportive care. MMODL / IJN: [id number] /
[2017-06-09] MEDS: NOREPINEPHRIN 4 MG-0.9% NS PMX 4 MG/250 ML ML IV SCH (02:54)
[2017-06-09 04:33] LABS: Basophils % (A) 1 %; Eosinophils # (A) 0.1 k/uL (0-0.7); Eosinophils % (A) 4 %; HCT 24.1 % (34.0-46.0); HGB 8.3 gm/dL (11.4-16.0); Lymphocytes # (A) 0.7 k/uL (1.0-4.8); Lymphocytes % (A) 23 %; MCH 36.4 pg (25.0-35.0); MCHC 34.4 g/dL (31.0-37.0); Macrocytosis Moderate; Mean Platelet Volume 8.6; Monocytes # (A) 0.3 k/uL (0-1.0); Monocytes % (A) 8 %; Neutrophils # (A) 1.8 k/uL (1.3-7.7); Neutrophils % (A) 60 %; Poikilocytosis Slight; RBC 2.27 m/uL (3.80-5.40); RDW 14.1 % (11.5-15.5)
[2017-06-09 04:36] LABS: Platelet Count 67 k/uL (150-450)
[2017-06-09 04:44] LABS: Anion Gap 5 mmol/L; Blood Urea Nitrogen 23 mg/dL (7-17); Calcium 7.6 mg/dL (8.4-10.2); Carbon Dioxide 25 mmol/L (22-30); Chloride 106 mmol/L (98-107); Glucose 108 mg/dL (74-99); Phosphorus 3.1 mg/dL (2.5-4.5); Potassium 3.5 mmol/L (3.5-5.1); Sodium 136 mmol/L (137-145)
[2017-06-09] MEDS: HYDROcodone/APAP 5-325MG 1 EACH TAB PO PRN ×3 (06:31→22:14)
[2017-06-09] MEDS: IBUPROFEN 800 MG TAB PO SCH ×4 (06:40→23:42)
[2017-06-09] MEDS: PIPERACILLIN-TAZOBACTAM 3.375 GM in DEXTROSE/WATER 1 50ML.BAG IVPB SCH ×3 (08:31→23:42)
[2017-06-09] MEDS: NICOTINE 14MG/24HR PATCH TRANSDERM SCH (08:32)
[2017-06-09] MEDS: PANTOPRAZOLE 40 MG TABLET PO SCH (08:32)
[2017-06-09] MEDS: SODIUM CHLORIDE 0.9% 1,000 ML IV SCH (08:36)
--- NOTE | 2017-06-09 09:22 | P.PN ---
Subjective Progress Note Date: 06/09/17 Principal diagnosis: Alcoholic liver disease with cirrhosis and esophageal varices, profound ascites with abdominal pain, status post large volume paracentesis on 06/08/2017 would removal of 11.5 L. 51-year-old female patient with liver cirrhosis secondary to hepatitis C and massive ascites, admitted to the hospital because of massive overload with fluid and abdominal distention in addition to abdominal pain. The patient was briefly hypotensive and the patient was placed on pressors. ICU and currently she is off pressors. No altered mentation. No chest pain. She is awaiting a large volume paracentesis to be done by interventional radiology. She is currently on 2 L of oxygen by nasal cannula. IV fluids at 0.9 normal saline at the rate of 100 mL an hour. Urine output is in order of 5-10 mL an hour. She is resting comfortably in bed. No fever. No chills. She is on IV Zosyn. On 06/09/2017 patient seen in follow-up in intensive care. She is resting comfortably in bed, denies any acute distress. Denies any dyspnea, denies any chest pain. Denies any fever or chills. She remains on Levaquin fed drip at 4 mics per minute, her blood pressure is 87/41. Patient has low blood pressures chronically, she is currently asymptomatic, denies any dizziness, lightheadedness, weakness. Yesterday she underwent large volume paracentesis with removal of 11-1/2 L of ascitic fluid. Afterward she was given 50 g of 25% albumin. Blood and urine culture remained negative since admission, ascites fluid culture is pending. Patient remains on empiric antibiotic in the form of Zosyn. She is afebrile. On room air with O2 sat at 96%. Abdomen is less distended compared to yesterday's exam. Continue weaning the vasopressors, to allow systolic blood pressure above 80, as well as the patient remains asymptomatic. Will await the final cultures of the ascites fluid. Continue with current plan of care. Objective - Vital Signs Vital signs: Vital Signs Temp 97.9 F 06/09/17 04:00 Pulse 52 L 06/09/17 07:00 Resp 15 06/09/17 07:00 BP 90/43 06/09/17 07:00 Pulse Ox 96 03/06/18 07:00 Intake & Output 06/08/17 06/09/17 06/09/17 18:59 06:59 18:59 Intake Total 997.625 400.438 185.219 Output Total 127 400 25 Balance 870.625 0.438 160.219 Weight 93.3 kg Intake: IV 570 245.0 70 Piperacillin-Tazobactam 3 125.0 50 .375 gm In Dextrose/Water 1 50ml.bag @ 12.5 mls/hr IVPB Q8HR [facility]FA[facility] Rx#: [id number] Sodium Chloride 0.9% 1, 570 120 20 000 ml @ 10 mls/hr IV . Q24H RAFA[facility] Rx#:[id number] Intake, IV Titration 187.625 115.438 115.219 Amount Albumin Human 25% 50 ml 100 In Empty Bag 1 bag @ 100 mls/hr IVPB Q1H RAFAEL Rx#: [id number] Norepinephrin 4 mg-0.9% 37.625 115.438 115.219 Ns Pmx 4 mg In 250 ml @ Titrate IV .Q0M RAFAEL Rx#: [id number] Piperacillin-Tazobactam 3 50.0 .375 gm In Dextrose/Water 1 50ml.bag @ 12.5 mls/hr IVPB Q8HR RAFAEL Rx#: [id number] Oral 240 40 Output: Urine 127 400 25 Other: Voiding Method Indwelling Catheter Indwelling Catheter # Bowel Movements 1 - Exam GENERAL EXAM: Alert, fairly comfortable in no apparent distress. HEAD: Normocephalic. EYES: Normal reaction of pupils, equal size. NOSE: Clear with pink turbinates. THROAT: No erythema or exudates. NECK: No masses, no JVD. CHEST: No chest wall deformity. LUNGS: Equal air entry with a few bibasilar crackles CVS: S1 and S2 normal with no audible murmur, regular rhythm. ABDOMEN: Abdomen is slightly less distended, normal bowel sounds, no guarding or rigidity. SPINE: No scoliosis or deformity SKIN: No rashes CENTRAL NERVOUS SYSTEM: No focal deficits, tone is normal in all 4 extremities. EXTREMITIES: There is no peripheral edema. No clubbing, no cyanosis. Peripheral pulses are intact. - Labs CBC & Chem 7: 06/09/17 03:51 06/09/17 03:51 Labs: Abnormal Lab Results - Last 24 Hours (Table) 06/08/17 06/09/17 06/09/17 Range/Units 10:11 03:51 03:51 WBC 3.0 L (3.8-10.6) k/uL RBC 2.27 L (3.80-5.40) m/uL Hgb 8.3 L (11.4-16.0) gm/dL Hct 24.1 L (34.0-46.0) % MCV 106.0 H D (80.0-100.0) fL MCH 36.4 H (25.0-35.0) pg Plt Count 67 L (150-450) k/uL Lymphocytes # 0.7 L (1.0-4.8) k/uL INR 1.2 H (<1.2) Sodium 136 L (137-145) mmol/L BUN 23 H (7-17) mg/dL Glucose 108 H (74-99) mg/dL Calcium 7.6 L (8.4-10.2) mg/dL Microbiology - Last 24 Hours (Table) 06/05/17 20:54 Blood Culture - Preliminary Blood No Growth after 72 hours 06/08/17 12:00 Gram Stain - Preliminary Ascites Fluid Body Fluid Culture - Preliminary 06/08/17 12:00 Anaerobic Culture - Preliminary Ascites Fluid Assessment and Plan Plan: Assessment: 1 Profound ascites, with abdominal pain, rule out spontaneous bacterial peritonitis, status post large-volume paracentesis on 06/08/2017 would removal of 11-1/2 L of ascites fluid. Patient was given 50 mg of albumin 25% after the procedure. On a small dose of norepinephrine at this time at 2 mics per minute. 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 8 History of GI bleed 9 History of multiple previous therapeutic paracentesis 10 History of esophageal banding for bleeding esophageal varices Plan Wean norepinephrine, to keep SBP at 80 mmHg or above. Patient is asymptomatic despite the hypotension, runs a chronically low blood pressure. Monitor urine output, vital signs. Continue with Zosyn, await We'll continue to follow I performed a history & physical examination of the patient and discussed their management with my nurse practitioner, Kathryn Lloyd. I reviewed the nurse practitioner's note and agree with the documented findings and plan of care. Lung sounds are positive for a few bibasilar crackles. The findings and the impression was discussed with the patient. I attest to the documentation by the nurse practitioner. Time with Patient: Greater than 30
[2017-06-09] MEDS: POTASSIUM CHLORIDE ER 20 MEQ TAB.ER PO SCH ×2 (09:49→11:17)
--- NOTE | 2017-06-09 10:04 | CDI ---
Last Revision, March 2017 Documentation Clarification Form Date: 06/09/2017 9:55:00 AM From: Daniella Nichols RN Admit Date: 06/05/2017 9:34:00 PM Patient Name: Lori Barakat Visit Number: [id number] ATTENTION: The Clinical Documentation Specialists (CDI) and [facility] Coding Staff appreciate your assistance in clarifying documentation. Please respond to the clarification below the line at the bottom and electronically sign. The CDI & [facility] Coding staff will review the response and follow-up if needed. Please note: Queries are made part of the Legal Health Record. If you have any questions, please contact the author of this message via ITS. Dr. Mark Estrada, Renal failure was documented in the Progress note on 06/08. History/Risk Factors: breast cancer, gerd, GI bleed, HTN, liver disease, Hepatitis C, intractable ascites, cirrhosis Clinical Indicators: On Admission BUN/Cr/GFR : 23/0.80/>60 Treatment: IVF: bolus x 4 Monitor labs In order to capture the severity of condition, please clarify if the condition signifies: Acute renal failure, Please specify etiology (if known): Acute kidney injury Acute on chronic renal failure CKD Stage 1 GFR >90 CKD Stage 2 GFR 60-89 Chronic renal failure/Chronic Kidney disease (CKD) please stage if known CKD Stage 1 GFR >90 CKD Stage 2 GFR 60-89 Other, please specify Unable to determine Please continue to document in your progress notes and discharge summary or under line , in order to capture severity of illness and risk of mortality. Include clinical findings that support your diagnosis. MTDD
--- NOTE | 2017-06-09 20:39 | PN ---
PROGRESS NOTE CHIEF COMPLAINT: 1. Sepsis. 2. Cirrhosis. 3. Ascites. 4. Carcinoma of the breast. HISTORY OF PRESENT ILLNESS: This lady is complaining of quite a bit of generalized discomfort. Yesterday, she was tapped for about 11 L. PHYSICAL EXAM: Breath sounds are heard bilaterally and the cardiac is unchanged. Abdomen is still somewhat distended. She is running systolic pressure of 88 and she is still on Levophed. IMPRESSION: 1. Sepsis. 2. Cirrhosis. 3. Alcoholism. 4. Hepatitis C. 5. Carcinoma of the breast. 6. Hypotension. PLAN: No change in her program and she will be kept in the unit until she is off of Levophed. MMODL / IJN: [id number] /
--- NOTE | 2017-06-09 22:09 | PN ---
PROGRESS NOTE DATE OF SERVICE: 06/09/2017 REASON FOR FOLLOWUP: Sepsis and question of possible SBP. INTERVAL HISTORY: The patient is afebrile. She seems to be breathing comfortably. Denies having any chest pain, shortness of breath or cough. No abdominal pain. Her distention has improved after large-volume paracentesis yesterday. PHYSICAL EXAMINATION: Blood pressure is 91/57 with a pulse of 69, temperature of 98. She is 94% on room air. General description is a middle-aged female lying in bed in no distress. RESPIRATORY SYSTEM: Unlabored breathing. Clear to auscultation anteriorly. HEART: S1, S2. Regular rate and rhythm. ABDOMEN: Soft. Less distended. No tenderness. EXTREMITIES: Two plus edema of feet. LABS: Hemoglobin 8.3, white count of 3.0, BUN of 23, creatinine 1.0. Peritoneal fluid culture so far negative. DIAGNOSTIC IMPRESSION AND PLAN: 1. Patient admitted to hospital with sepsis with significantly tense ascites and concern about possible spontaneous bacterial peritonitis. Unfortunately paracentesis was done after the patient had been on antibiotic for a few days. That can make those cultures negative response to Zosyn. That will be continued for now. Continue supportive care. Percent is within cough. The patient has been antibiotic for a few days that can make those cultures negative any response was not be continued for now and continue supportive care. 2. Patient with chronic hepatitis C, for which the patient continues with Epclusa. MMODL / IJN: [id number] /
[2017-06-09 22:14] VITALS: RESP 16
[2017-06-09] MEDS: VELPATASVIR PO SCH (23:39)
[2017-06-09] MEDS: SOFOSBUVIR PO SCH (23:39)
[2017-06-10] MEDS: HYDROcodone/APAP 5-325MG 1 EACH TAB PO PRN ×2 (04:57→13:49)
[2017-06-10] MEDS: IBUPROFEN 800 MG TAB PO SCH ×2 (05:28→13:49)
[2017-06-10 08:31] VITALS: BP 103/48; TEMP 97.7
[2017-06-10] MEDS: PIPERACILLIN-TAZOBACTAM 3.375 GM in DEXTROSE/WATER 1 50ML.BAG IVPB SCH (08:41)
[2017-06-10] MEDS: PANTOPRAZOLE 40 MG TABLET PO SCH (08:43)
[2017-06-10] MEDS: NICOTINE 14MG/24HR PATCH TRANSDERM SCH (08:43)
[2017-06-10 09:15] LABS: Calcium 7.5 mg/dL (8.4-10.2); Phosphorus 3.1 mg/dL (2.5-4.5); Potassium 3.6 mmol/L (3.5-5.1)
[2017-06-10 12:53] VITALS: PULSE 70
--- NOTE | 2017-06-10 14:24 | PN ---
PROGRESS NOTE DATE OF SERVICE: 06/10/2017 REASON FOR FOLLOWUP: Possible spontaneous bacterial peritonitis. INTERVAL HISTORY: The patient is afebrile. She is breathing comfortably. Denies having any chest pain or shortness of breath, no cough. No abdominal pain. No nausea, no vomiting, or any diarrhea. PHYSICAL EXAMINATION: Blood pressure 103/48 with a pulse of 75, temperature is 97.7 she is 97% on room air. General description is a middle-aged female, lying in bed in no distress. RESPIRATORY SYSTEM: Unlabored breathing, clear to auscultation anteriorly. HEART: S1, S2. Regular rate and rhythm. ABDOMEN: Soft, less distended, no guarding or rigidity. LABS: Hemoglobin 8.8, white count of 3.0, BUN of 23, creatinine 1.08. Blood and peritoneal fluid culture so far negative. DIAGNOSTIC IMPRESSION AND PLAN: 1. Patient admitted to the hospital with sepsis with concern for possible spontaneous bacterial peritonitis. So far no resistant organism has been grown. Will give her a short course of oral Ceftin to finish her course of therapy at 500 b.i.d. for 5 days. 2. Patient with chronic hepatitis C for which the patient continue on to finish her therapy. MMODL / IJN: [id number] /
--- NOTE | 2017-06-10 17:28 | DS ---
DISCHARGE SUMMARY CHIEF COMPLAINT: Abdominal pain, ascites, cirrhosis, and low-grade fever. HISTORY OF PRESENT ILLNESS AND PHYSICAL EXAM: The details of this lady's history and physical can be found in the initial workup. LABORATORY STUDIES: While she was in a hospital she had laboratory studies, details which can be found in the laboratory section of her chart. COURSE IN HOSPITAL: After admission, she was placed in bedrest, started on the intravenous fluids, and appropriately cultured. There was concern about peritonitis and she was seen and followed by Intensive Medicine and Infectious Disease. She failed to grow any positive cultures, either from her blood or peritoneal fluid, which was done after she had been on antibiotics for several days. However, she was doing well and her blood pressure was starting to respond, although she required pressors for several days. Her urinary output also remained low. When she got to regular floor, she was insistent on being discharged because she wanted to get home to take more of her analgesics. This unfortunate lady is slowly deteriorating and probably will not do well or be able to be maintained at home. FINAL DIAGNOSES: 1. Intractable ascites. 2. Low-grade fever. 3. Possible septicemia. 4. Possible bacterial peritonitis. 5. Systemic inflammatory response syndrome. 6. Hepatitis C. 7. Carcinoma of the breast. OPERATIONS: Paracentesis. CONSULTATIONS: Intensive Medicine, Interventional Radiology, and Infectious Disease. She is improved. MMODL / IJN: [id number] /
--- NOTE | 2017-06-11 21:11 | MISC ---
MISCELLANOUS REPORT Query regarding renal failure: Her renal failure is due to prerenal azotemia and dehydration. She also had hepatorenal syndrome. MMODL / IJN: [id number] /
== END 2017-06-10 13:55 | disposition home or self-care (01) | DRG 871 ==
LOC: EC 19:45 → 6ICU 21:34 → 5MS5E 06-09 20:46
PROVIDERS: ADMIT Family Medicine; ATTEND Family Medicine
PROC: 0W9G3ZZ Drainage of Peritoneal Cavity, Percutaneous Approach (ICD-10-PCS; principal; 2017-06-08)
DX: A41.9 Sepsis, unspecified organism (principal); K65.2 Spontaneous bacterial peritonitis; N17.9 Acute kidney failure, unspecified; J98.11 Atelectasis; K70.31 Alcoholic cirrhosis of liver with ascites; E86.0 Dehydration; B18.2 Chronic viral hepatitis C; F10.20 Alcohol dependence, uncomplicated; F17.200 Nicotine dependence, unspecified, uncomplicated; I10 Essential (primary) hypertension; K21.9 Gastro-esophageal reflux disease without esophagitis; F41.9 Anxiety disorder, unspecified; H91.92 Unspecified hearing loss, left ear; Z85.3 Personal history of malignant neoplasm of breast; Z79.899 Other long term (current) drug therapy; Z82.49 Family history of ischemic heart disease and other diseases of the circulatory system
CPT/HCPCS: 36415; 49083; 71046; 74018; 76705; 80048; 80053; 81001; 82150; 82945; 83036; 83605; 83615; 83690; 83735; 84100; 84132; 84157; 85025; 85610; 87040; 87070; 87075; 87086; 87205; 89050; 93005; 96361; 96365; 96368; 96374; 96375; 99291

== ENCOUNTER 2017-06-23 17:45 | Observation (INO) | payer MEDICARE, OTHER ==
[2017-06-23] MEDS ORDERED: SODIUM CHLORIDE 0.9% 1,000 ML IV STA ×2 (18:27)
[2017-06-23] MEDS ORDERED: fentaNYL (PF) 50 MCG/ML 2 ML AMP IV STA (18:27)
--- NOTE | 2017-06-23 18:31 | ED ---
Abdominal Pain HPI - General Chief Complaint: Abdominal Pain Stated Complaint: Pain in side Time Seen by Provider: 06/23/17 18:00 Source: patient Mode of arrival: wheelchair Limitations: no limitations - History of Present Illness Initial Comments: This is a 57-year-old female history of hepatitis C cirrhosis left breast cancer who is status post 3 rounds of chemotherapy which apparently didn't work who presents today because she has severe abdominal pain. She has had a paracentesis she was brought to 3 weeks ago her abdomen is getting larger she has increased pain she also states she ran out of her pain medication yesterday. She states she did decrease oral intake because she doesn't like eating she denies any overt fevers chills or sweats MD Complaint: abdominal pain - Related Data Home Medications Medication Instructions Recorded Confirmed Multivitamins, Thera [Multivitamin 1 tab PO DAILY 03/05/17 06/23/17 (formulary)] Sofosbuvir/Velpatasvir [Epclusa 1 tab PO DAILY 04/30/17 06/23/17 400 mg-100 mg Tablet] HYDROcodone/APAP 5-325MG [[place] 1 tab PO Q6H PRN 06/23/17 06/23/17 5-325] Previous Rx's Medication Instructions Recorded Furosemide [Lasix] 40 mg PO BID #60 tablet 03/18/17 Spironolactone [Aldactone] 50 mg PO BID #60 tab 03/18/17 Allergies Allergy/AdvReac Type Severity Reaction Status Date / Time No Known Allergies Allergy Verified 06/23/17 18:39 Review of Systems ROS Statement: Those systems with pertinent positive or pertinent negative responses have been documented in the HPI. ROS Other: All systems not noted in ROS Statement are negative. Past Medical History Past Medical History: Cancer, GERD/Reflux, GI Bleed, Hearing Disorder / Deafness , Hypertension, Liver Disease Additional Past Medical History / Comment(s): Hepatitis C, intractable ascities , cirrhosis, pancytopenia, vertigo; "benign abd mass", states has had esophageal banding, lt breast cancer had chemo last on 09-12-16-did not tolerate- completed 3 out of 4 cycles-, lt ear hearing loss, multiple upper GI bleeds. History of Any Multi-Drug Resistant Organisms: None Reported Past Surgical History: Adenoidectomy, Tonsillectomy Additional Past Surgical History / Comment(s): Paracentesises, EGD, esophageal banding, rt chest mediport 17, l breast bx. Past Anesthesia/Blood Transfusion Reactions: No Reported Reaction Additional Past Anesthesia/Blood Transfusion Reaction / Comment(s): blood transfusions- no reaction Past Psychological History: Anxiety Smoking Status: Current every day smoker Past Alcohol Use History: None Reported Past Drug Use History: None Reported - Past Family History Mother Family Medical History: Cancer Additional Family Medical History / Comment(s): of lung ca at the age of 59yrs. She was a smoker. Father Family Medical History: Myocardial Infarction ([place]) Additional Family Medical History / Comment(s): from 2nd heart attack at the age of 59yrs. General Exam - General Exam Comments Initial Comments: This is a well-developed asthenic appearing awake alert oriented 3 female Limitations: no limitations General appearance: alert, anxious, in distress Head exam: Present: atraumatic, normocephalic, normal inspection Eye exam: Present: normal appearance, PERRL, EOMI. Absent: scleral icterus, conjunctival injection, periorbital swelling ENT exam: Present: mucous membranes dry Neck exam: Present: normal inspection. Absent: tenderness, meningismus, lymphadenopathy Respiratory exam: Present: decreased breath sounds. Absent: respiratory distress, wheezes, rales, rhonchi, stridor Cardiovascular Exam: Present: regular rate, normal rhythm, normal heart sounds. Absent: systolic murmur, diastolic murmur, rubs, gallop, clicks GI/Abdominal exam: Present: soft, distended, tenderness, normal bowel sounds, other (The exam is consistent with tense ascites). Absent: guarding, rebound, rigid Extremities exam: Present: normal inspection, full ROM, normal capillary refill. Absent: tenderness, pedal edema, joint swelling, calf tenderness Back exam: Present: normal inspection Neurological exam: Present: alert, oriented X3, CN II-XII intact Psychiatric exam: Present: normal affect, normal mood Skin exam: Present: warm, dry, intact, normal color. Absent: rash Course Vital Signs 06/23/17 06/23/17 06/23/17 18:01 18:52 19:10 Temperature 98.3 F Pulse Rate 96 89 90 Respiratory 20 18 17 Rate Blood Pressure 118/72 118/57 110/57 O2 Sat by Pulse 99 99 98 Oximetry Medical Decision Making - Medical Decision Making Patient states she is feeling somewhat improved she does require admission for tense ascites she'll be admitted she states she currently does not have a doctor she'll be admitted to [facility]. She states she did have a physician but that she does not want to be seen by him anymore. - Lab Data Result diagrams: 06/23/17 18:33 06/23/17 18:33 Lab Results 06/23/17 06/23/17 06/23/17 Range/Units 18:33 18:33 18:33 WBC (3.8-10.6) k/uL RBC (3.80-5.40) m/uL Hgb (11.4-16.0) gm/dL Hct (34.0-46.0) % MCV (80.0-100.0) fL MCH (25.0-35.0) pg MCHC (31.0-37.0) g/dL RDW (11.5-15.5) % Plt Count (150-450) k/uL Neutrophils % % Lymphocytes % % Monocytes % % Eosinophils % % Basophils % % Neutrophils # (1.3-7.7) k/uL Lymphocytes # (1.0-4.8) k/uL Monocytes # (0-1.0) k/uL Eosinophils # (0-0.7) k/uL Basophils # (0-0.2) k/uL Macrocytosis PT 11.2 (9.0-12.0) sec INR 1.2 H (<1.2) APTT 22.7 (22.0-30.0) sec Sodium 136 L (137-145) mmol/L Potassium 3.9 (3.5-5.1) mmol/L Chloride 105 (98-107) mmol/L Carbon Dioxide 23 (22-30) mmol/L Anion Gap 8 mmol/L BUN 22 H (7-17) mg/dL Creatinine 0.72 (0.52-1.04) mg/dL Est GFR (CKD-EPI)AfAm >90 (>60 ml/min/1.73 sqM) Est GFR (CKD-EPI)NonAf >90 (>60 ml/min/1.73 sqM) Glucose 117 H (74-99) mg/dL Calcium 8.4 (8.4-10.2) mg/dL Magnesium 2.0 (1.6-2.3) mg/dL Total Bilirubin 2.3 H (0.2-1.3) mg/dL AST 42 H (14-36) U/L ALT 21 (9-52) U/L Alkaline Phosphatase 108 (38-126) U/L Ammonia 21 (<30) umol/L Total Creatine Kinase (30-135) U/L CK-MB (CK-2) (0.0-2.4) ng/mL CK-MB (CK-2) Rel Index Total Protein 6.8 (6.3-8.2) g/dL Albumin 2.7 L (3.5-5.0) g/dL Amylase 34 (30-110) U/L Lipase 94 (23-300) U/L 06/23/17 06/23/17 Range/Units 18:33 18:33 WBC 3.2 L (3.8-10.6) k/uL RBC 2.74 L (3.80-5.40) m/uL Hgb 9.9 L D (11.4-16.0) gm/dL Hct 29.3 L (34.0-46.0) % MCV 107.2 H (80.0-100.0) fL MCH 36.1 H (25.0-35.0) pg MCHC 33.6 (31.0-37.0) g/dL RDW 15.0 (11.5-15.5) % Plt Count 101 L D (150-450) k/uL Neutrophils % 68 % Lymphocytes % 19 % Monocytes % 8 % Eosinophils % 2 % Basophils % 0 % Neutrophils # 2.2 (1.3-7.7) k/uL Lymphocytes # 0.6 L (1.0-4.8) k/uL Monocytes # 0.2 (0-1.0) k/uL Eosinophils # 0.1 (0-0.7) k/uL Basophils # 0.0 (0-0.2) k/uL Macrocytosis Moderate PT (9.0-12.0) sec INR (<1.2) APTT (22.0-30.0) sec Sodium (137-145) mmol/L Potassium (3.5-5.1) mmol/L Chloride (98-107) mmol/L Carbon Dioxide (22-30) mmol/L Anion Gap mmol/L BUN (7-17) mg/dL Creatinine (0.52-1.04) mg/dL Est GFR (CKD-EPI)AfAm (>60 ml/min/1.73 sqM) Est GFR (CKD-EPI)NonAf (>60 ml/min/1.73 sqM) Glucose (74-99) mg/dL Calcium (8.4-10.2) mg/dL Magnesium (1.6-2.3) mg/dL Total Bilirubin (0.2-1.3) mg/dL AST (14-36) U/L ALT (9-52) U/L Alkaline Phosphatase (38-126) U/L Ammonia (<30) umol/L Total Creatine Kinase 45 (30-135) U/L CK-MB (CK-2) 0.3 (0.0-2.4) ng/mL CK-MB (CK-2) Rel Index 0.7 Total Protein (6.3-8.2) g/dL Albumin (3.5-5.0) g/dL Amylase (30-110) U/L Lipase (23-300) U/L Disposition Clinical Impression: Ascites, Breast cancer, Cirrhosis, Abdominal pain Disposition: ADMITTED IP TO THIS [facility] Condition: Stable Referrals: None,Stated [Primary Care Provider] - 1-2 days
[2017-06-23 18:52] LABS: Basophils % (A) 0 %; Eosinophils # (A) 0.1 k/uL (0-0.7); Eosinophils % (A) 2 %; HCT 29.3 % (34.0-46.0); Lymphocytes # (A) 0.6 k/uL (1.0-4.8); Lymphocytes % (A) 19 %; MCH 36.1 pg (25.0-35.0); MCHC 33.6 g/dL (31.0-37.0); MCV 107.2 fL (80.0-100.0); Macrocytosis Moderate; Mean Platelet Volume 8.1; Monocytes # (A) 0.2 k/uL (0-1.0); Monocytes % (A) 8 %; Neutrophils # (A) 2.2 k/uL (1.3-7.7); Neutrophils % (A) 68 %; RBC 2.74 m/uL (3.80-5.40); WBC 3.2 k/uL (3.8-10.6)
[2017-06-23 19:00] LABS: HGB 9.9 gm/dL (11.4-16.0)
[2017-06-23 19:04] LABS: ALT 21 U/L (9-52); AST 42 U/L (14-36); Albumin 2.7 g/dL (3.5-5.0); Alkaline Phosphatase 108 U/L (38-126); Amylase 34 U/L (30-110); Anion Gap 8 mmol/L; Blood Urea Nitrogen 22 mg/dL (7-17); Calcium 8.4 mg/dL (8.4-10.2); Carbon Dioxide 23 mmol/L (22-30); Chloride 105 mmol/L (98-107); Glucose 117 mg/dL (74-99); Lipase 94 U/L (23-300); Potassium 3.9 mmol/L (3.5-5.1); Sodium 136 mmol/L (137-145); Total Bilirubin 2.3 mg/dL (0.2-1.3); Total Protein 6.8 g/dL (6.3-8.2)
[2017-06-23 19:20] LABS: Partial Thromboplastin Time 22.7 sec (22.0-30.0)
[2017-06-23 19:23] LABS: Creatine Kinase MB 0.3 ng/mL (0.0-2.4)
[2017-06-23 19:26] LABS: INR 1.2 (<1.2); Prothrombin Time 11.2 sec (9.0-12.0)
[2017-06-23] MEDS ORDERED: NALOXONE 0.4 MG/ML 1 ML VIAL IV PRN (19:53)
[2017-06-23] MEDS ORDERED: ONDANSETRON 4 MG/2 ML VIAL IVP PRN (19:53)
[2017-06-23] MEDS: HYDROcodone/APAP 5-325MG 1 EACH TAB PO PRN (20:47)
[2017-06-23] MEDS: SPIRONOLACTONE 25 MG TAB PO SCH (21:25)
[2017-06-23] MEDS: FUROSEMIDE 40 MG TAB PO SCH (21:25)
[2017-06-23 23:37] LABS: Platelet Count 101 k/uL (150-450)
[2017-06-24] MEDS: BUTORPHANOL 1 MG/ML 1 ML VIAL IV PRN ×2 (00:49→03:24)
[2017-06-24] MEDS: HYDROcodone/APAP 5-325MG 1 EACH TAB PO PRN ×2 (02:38→09:18)
[2017-06-24] MEDS: FUROSEMIDE 40 MG TAB PO SCH ×2 (09:17→19:26)
[2017-06-24] MEDS: PANTOPRAZOLE 40 MG/10 ML VIAL IV SCH (09:17)
[2017-06-24] MEDS: SPIRONOLACTONE 25 MG TAB PO SCH ×2 (09:17→19:26)
[2017-06-24] MEDS: MULTIVITAMINS, THERA 1 EACH TAB PO SCH (09:17)
[2017-06-24 09:29] VITALS: BMI 29.5
[2017-06-24] MEDS ORDERED: HYDROcodone/APAP 7.5-325MG 1 EACH TAB PO PRN (10:14)
--- NOTE | 2017-06-24 15:19 | US ---
EXAMINATION TYPE: US paracentesis abd w/image DATE OF EXAM: 06/24/2017 COMPARISON: NONE HISTORY: Ascites. PROCEDURE: Maximal barrier technique was utilized. The skin overlying a suitable pocket of fluid was localized with ultrasound and the overlying skin was prepped and draped. Ultrasound was utilized with sterile technique. Lidocaine was used for local anesthesia and a skin adela made with a scalpel. Catheter was advanced under direct ultrasound guidance into a suitable pocket of fluid and approximately 18.5 lite rs of serous fluid were removed. Catheter was withdrawn and hemostasis achieved. There is no immedi ate complication; the patient is discharged in stable condition. IMPRESSION: STATUS POST ULTRASOUND GUIDED PARACENTESIS FOR PALLIATION OF ASCITES. THIS PROCEDURE WA S PERFORMED BY THE UNDERSIGNED.
--- NOTE | 2017-06-24 15:53 | P.HPIM ---
History of Present Illness Patient is a 57-year-old female with known history of cirrhosis from hepatitis C came in because of tense ascites without any fever chills. Patient is significantly distended abdomen patient underwent the paracentesis with removal of about 18 L and patient is feeling bit dizzy now with low blood pressure because of which we'll are good and monitor her overnight. Patient underwent a brick paracentesis patient is on Lasix and Aldactone and patient is receiving antibiotics for the hepatitis C. Patient is on [place] which will be discontinued because of Tylenol in [place] because of her significant liver disease even the low dose of a Acetaminophen can cause toxicity and patient will be started on tramadol instead patient is on Lasix and aldactone both of which will be held. Review of Systems REVIEW OF SYSTEMS: CONSTITUTIONAL: No fever, no malaise, no fatigue. HEENT: No recent visual problems or hearing problems. Denied any sore throat. CARDIOVASCULAR: No chest pain, orthopnea, PND, no palpitations, no syncope. PULMONARY: No shortness of breath, no cough, no hemoptysis. GASTROINTESTINAL: As mentioned in HPI NEUROLOGICAL: No headaches, no weakness, no numbness. HEMATOLOGICAL: Denies any bleeding or petechiae. GENITOURINARY: Denies any burning micturition, frequency, or urgency. MUSCULOSKELETAL/RHEUMATOLOGICAL: Denies any joint pain, swelling, or any muscle pain. ENDOCRINE: Denies any polyuria or polydipsia. The rest of the 14-point review of systems is negative. Past Medical History Past Medical History: Cancer, GERD/Reflux, GI Bleed, Hearing Disorder / Deafness , Hypertension, Liver Disease Additional Past Medical History / Comment(s): Hepatitis C, intractable ascities , cirrhosis, pancytopenia, vertigo; "benign abd mass", states has had esophageal banding, lt breast cancer had chemo last on 09-12-16-did not tolerate- completed only 3 cycles-then it was stopped, lt ear hearing loss, multiple upper GI bleeds. History of Any Multi-Drug Resistant Organisms: None Reported Past Surgical History: Adenoidectomy, Tonsillectomy Additional Past Surgical History / Comment(s): Paracentesises, EGD, esophageal banding, rt chest mediport 08-06-16, l breast bx. Past Anesthesia/Blood Transfusion Reactions: No Reported Reaction Additional Past Anesthesia/Blood Transfusion Reaction / Comment(s): blood transfusions- no reaction Smoking Status: Current every day smoker - Past Family History Mother Family Medical History: Cancer Additional Family Medical History / Comment(s): of lung ca at the age of 59yrs. She was a smoker. Father Family Medical History: Myocardial Infarction ([place]) Additional Family Medical History / Comment(s): from 2nd heart attack at the age of 59yrs. Medications and Allergies Home Medications Medication Instructions Recorded Confirmed Type Multivitamins, Thera [Multivitamin 1 tab PO DAILY 03/05/17 06/23/17 History (formulary)] Furosemide [Lasix] 40 mg PO BID #60 tablet 03/18/17 06/23/17 Rx Spironolactone [Aldactone] 50 mg PO BID #60 tab 03/18/17 06/23/17 Rx Sofosbuvir/Velpatasvir [Epclusa 1 tab PO DAILY 04/30/17 06/23/17 History 400 mg-100 mg Tablet] traMADol HCL [Ultram] 50 mg PO Q4HR PRN #20 tab 06/24/17 Rx Allergies Allergy/AdvReac Type Severity Reaction Status Date / Time No Known Allergies Allergy Verified 06/23/17 18:39 Physical Exam Vitals: Vital Signs Temp Pulse Pulse Resp BP BP BP 06/24/17 14:00 97.5 F L 75 18 100/51 06/24/17 13:39 74 14 100/56 06/24/17 13:16 79 14 106/52 06/24/17 12:29 73 14 101/52 06/24/17 12:08 75 14 104/56 06/24/17 11:28 74 16 115/59 06/24/17 11:02 78 16 110/65 06/24/17 08:00 98.0 F 88 18 102/58 06/24/17 04:00 98.0 F 88 16 103/59 06/24/17 00:00 86 16 06/23/17 21:00 86 16 06/23/17 20:54 97.9 F 86 16 130/62 06/23/17 20:29 81 20 120/87 06/23/17 19:10 90 17 110/57 06/23/17 18:52 89 18 118/57 06/23/17 18:01 98.3 F 96 20 118/72 Pulse Ox 06/24/17 14:00 99 06/24/17 13:39 100 06/24/17 13:16 98 06/24/17 12:29 97 06/24/17 12:08 98 06/24/17 11:28 98 06/24/17 11:02 99 06/24/17 08:00 95 06/24/17 04:00 97 06/24/17 00:00 06/23/17 21:00 06/23/17 20:54 94 L 06/23/17 20:29 95 06/23/17 19:10 98 06/23/17 18:52 99 06/23/17 18:01 99 Intake and Output 06/24/17 06/24/17 06/24/17 06:59 14:59 22:59 Intake Total 600 Output Total 400 Balance 600 -400 Intake: Intake, IV Titration 600 Amount Sodium Chloride 0.9% 1, 600 000 ml @ 75 mls/hr IV . [id number] STA Rx#:[id number] Output: Urine 400 Other: Voiding Method Toilet Toilet # Voids 1 Weight 90.8 kg PHYSICAL EXAMINATION: GENERAL: The patient is alert and oriented x3, not in any acute distress. Well developed, well nourished. HEENT: Pupils are round and equally reacting to light. EOMI. No scleral icterus. No conjunctival pallor. Normocephalic, atraumatic. No pharyngeal erythema. No thyromegaly. CARDIOVASCULAR: S1 and S2 present. No murmurs, rubs, or gallops. PULMONARY: Chest is clear to auscultation, no wheezing or crackles. ABDOMEN: Soft, minimal tenderness diffuse nonspecific (post paracentesis exam) MUSCULOSKELETAL: No joint swelling or deformity. EXTREMITIES: No cyanosis, clubbing, or pedal edema. NEUROLOGICAL: Gross neurological examination did not reveal any focal deficits. SKIN: No rashes. Results CBC & Chem 7: 06/23/17 18:33 06/23/17 18:33 Labs: Abnormal Lab Results - Last 24 Hours (Table) 06/23/17 06/23/17 06/23/17 Range/Units 18:33 18:33 18:33 WBC 3.2 L (3.8-10.6) k/uL RBC 2.74 L (3.80-5.40) m/uL Hgb 9.9 L D (11.4-16.0) gm/dL Hct 29.3 L (34.0-46.0) % MCV 107.2 H (80.0-100.0) fL MCH 36.1 H (25.0-35.0) pg Plt Count 101 L D (150-450) k/uL Lymphocytes # 0.6 L (1.0-4.8) k/uL INR 1.2 H (<1.2) Sodium 136 L (137-145) mmol/L BUN 22 H (7-17) mg/dL Glucose 117 H (74-99) mg/dL Total Bilirubin 2.3 H (0.2-1.3) mg/dL AST 42 H (14-36) U/L Albumin 2.7 L (3.5-5.0) g/dL Thrombosis Risk Factor Assmnt - Choose All That Apply Any of the Below Risk Factors Present?: Yes Each Factor Represents 1 point: Age 41-60 years, Obesity (BMI >25) Other Risk Factors: Yes Each Risk Factor Represents 2 Points: Malignancy Other congenital or acquired thrombophilia - If yes, enter type in comment: No Thrombosis Risk Factor Assessment Total Risk Factor Score: 4 Thrombosis Risk Factor Assessment Level: Moderate Risk Assessment and Plan Plan: -Cirrhosis ascites abdominal pain secondary to distention rather than spontaneous bacterial peritonitis patient is status post removal of 18 L of acetic fluid. Considering the amount of And the had dizziness and low blood pressure will monitor her overnight. And gastroneurology will be consulted. Diuretics will be held tonight. Tylenol-based medications will be discontinued. -Gastroesophageal reflux disease -Hypertension: Patient is hypotensive secondary to large volume paracentesis. -Chronic hepatitis C. For above-mentioned chronic medical problems patient will be resumed and continued on appropriate home medications.
[2017-06-24] MEDS: traMADol 50 MG TAB PO PRN (17:39)
[2017-06-24] MEDS: SOFOSBUVIR PO SCH (18:49)
[2017-06-24] MEDS: VELPATASVIR PO SCH (18:49)
[2017-06-24] MEDS: MORPHINE SULFATE/PF 10MG/10ML VL IVP PRN (21:02)
[2017-06-24 23:27] VITALS: RESP 16
[2017-06-25] MEDS: MORPHINE SULFATE/PF 10MG/10ML VL IVP PRN ×2 (02:11→06:54)
[2017-06-25 07:47] VITALS: BP 102/55; PULSE 76; TEMP 98
[2017-06-25] MEDS: FUROSEMIDE 40 MG TAB PO SCH (08:46)
[2017-06-25] MEDS: PANTOPRAZOLE 40 MG/10 ML VIAL IV SCH (08:46)
[2017-06-25] MEDS: SPIRONOLACTONE 25 MG TAB PO SCH (08:46)
[2017-06-25] MEDS: VELPATASVIR PO SCH (08:47)
[2017-06-25] MEDS: SOFOSBUVIR PO SCH (08:47)
--- NOTE | 2017-06-25 11:28 | P.CONS ---
History of Present Illness - Reason for Consult Consult date: 06/25/17 cirrhosis Requesting physician: Maikol Alcaraz - History of Present Illness 51-year-old female well-known to the GI service with underlying liver disease cirrhosis hepatitis C, esophageal varices, GI bleed, EtOH abuse, portal hypertension recurrent ascites requiring large-volume paracentesis, breast carcinoma, anxiety and depression. Patient presented yesterday with abdominal distention and underwent therapeutic paracentesis with 18 L removed. Denies fever chills hematemesis hematochezia melena. White count 3.2. Hemoglobin 9.9. Platelet 101. INR 1.2. Sodium 136. BUN 22. Creatinine 0.7. Total bilirubin 2.3. AST 42. ALT 21. Alkaline phosphates 108. Preliminary blood culture no growth. She has remained afebrile. Home medications include Aldactone 50 g twice daily and Lasix 40 mg twice daily. Review of Systems Constitutional: Denies fever, chills, sweats, weight gain, or loss. HEENT: Negative for migraines, blurred vision or loss, earaches, drainage, tinnitus, oral mucosal lesions, dysphagia, or odynophagia. CARDIAC: Negative for chest pain, arrhythmias, or palpitation. RESPIRATORY: Negative for shortness of breath, hemoptysis, cough, or sputum production. GI: See HPI for pertinent findings. : Negative for hematuria, urgency, frequency, polyuria, or dysuria. GYNc: Left breast carcinoma. Negative vaginal discharge. MUSCULOSKELETAL: Negative for muscle aches, swelling, arthritis, and arthralgias. NEUROLOGIC: Negative for stroke or TIA. ENDOCRINE: Negative for thyroid problems. SKIN: Negative for rash or itching. PSYCHIATRIC: Negative history for depression. Anxiety. Past Medical History Past Medical History: Cancer, GERD/Reflux, GI Bleed, Hearing Disorder / Deafness , Hypertension, Liver Disease Additional Past Medical History / Comment(s): Hepatitis C, intractable ascities , cirrhosis, pancytopenia, vertigo; "benign abd mass", states has had esophageal banding, lt breast cancer had chemo last on 09-12-16-did not tolerate- completed only 3 cycles-then it was stopped, lt ear hearing loss, multiple upper GI bleeds. History of Any Multi-Drug Resistant Organisms: None Reported Past Surgical History: Adenoidectomy, Tonsillectomy Additional Past Surgical History / Comment(s): Paracentesises, EGD, esophageal banding, rt chest mediport 08-06-16, l breast bx. Past Anesthesia/Blood Transfusion Reactions: No Reported Reaction Additional Past Anesthesia/Blood Transfusion Reaction / Comm: blood transfusions - no reaction Smoking Status: Current every day smoker - Past Family History Mother Family Medical History: Cancer Additional Family Medical History / Comment(s): of lung ca at the age of 59yrs. She was a smoker. Father Family Medical History: Myocardial Infarction ([place]) Additional Family Medical History / Comment(s): from 2nd heart attack at the age of 59yrs. Medications and Allergies Home Medications Medication Instructions Recorded Confirmed Type Multivitamins, Thera [Multivitamin 1 tab PO DAILY 03/05/17 06/23/17 History (formulary)] Furosemide [Lasix] 40 mg PO BID #60 tablet 03/18/17 06/23/17 Rx Spironolactone [Aldactone] 50 mg PO BID #60 tab 03/18/17 06/23/17 Rx Sofosbuvir/Velpatasvir [Epclusa 1 tab PO DAILY 04/30/17 06/23/17 History 400 mg-100 mg Tablet] traMADol HCL [Ultram] 50 mg PO Q4HR PRN #20 tab 06/24/17 Rx Allergies Allergy/AdvReac Type Severity Reaction Status Date / Time No Known Allergies Allergy Verified 06/23/17 18:39 Physical Exam Vitals: Vital Signs Temp Pulse Resp BP BP Pulse Ox 06/25/17 08:00 16 06/25/17 07:46 98 F 76 16 102/55 95 06/24/17 23:26 98.9 F 73 16 80/40 93 L 06/24/17 20:10 69 18 06/24/17 16:00 69 102/43 96 06/24/17 15:30 77 100/48 96 06/24/17 15:00 76 100/44 98 06/24/17 14:45 76 95/41 98 06/24/17 14:30 82 114/54 100 06/24/17 14:15 78 86/44 98 06/24/17 14:00 97.5 F L 75 18 100/51 99 06/24/17 13:39 74 14 100/56 100 06/24/17 13:16 79 14 106/52 98 06/24/17 12:29 73 14 101/52 97 06/24/17 12:08 75 14 104/56 98 06/24/17 11:28 74 16 115/59 98 Intake and Output 06/24/17 06/25/17 06/25/17 22:59 06:59 14:59 Intake Total 20 350 Balance 20 350 Intake: IV 20 0.9 20 Oral 350 Other: Voiding Method Toilet # Voids 1 General appearance: The patient is alert, oriented, in no acute distress. HET: Head is normocephalic and atraumatic. Pupils are equal and reactive. Oropharynx is clear without lesions. Neck: Supple without lymphadenopathy. Trachea midline. Heart: S1 S2. Regular rate and rhythm. Lungs: No crackles or wheezes are heard. Abdomen: Soft, nontender, mildly distended with mild ascites with bowel sounds. No peritoneal signs. No palpable organomegaly or masses. Extremities: Normal skin color and turgor. No cyanosis, rash, ulceration, clubbing, or edema. Radial and pedal pulses are 2/4 bilaterally. Neurological: No focal deficits. Strength and sensation are grossly intact. Results CBC & Chem 7: 06/23/17 18:33 06/23/17 18:33 Labs: Microbiology - Last 24 Hours (Table) 06/23/17 18:33 Blood Culture - Preliminary Blood No Growth after 24 hours Assessment and Plan (1) Ascites Narrative/Plan: 51-year-old female admitted with abdominal pain secondary to gross abdominal distention secondary to massive ascites status post large volume paracentesis 18 L. Current Visit: Yes Status: Acute Code(s): R18.8 - OTHER ASCITES SNOMED Code(s): 228552986 (2) Portal hypertension Current Visit: Yes Status: Acute Code(s): K76.6 - PORTAL HYPERTENSION SNOMED Code(s): 57286217 (3) Breast cancer Current Visit: Yes Status: Acute Code(s): C50.919 - MALIGNANT NEOPLASM OF UNSP SITE OF UNSPECIFIED FEMALE BREAST SNOMED Code(s): 668743780 (4) Cirrhosis Current Visit: Yes Status: Acute Code(s): K74.60 - UNSPECIFIED CIRRHOSIS OF LIVER SNOMED Code(s): 69826248 (5) Hepatitis C Current Visit: Yes Status: Acute Code(s): B19.20 - UNSPECIFIED VIRAL HEPATITIS C WITHOUT HEPATIC COMA SNOMED Code(s): 16679381 Plan: 1. Continue with Aldactone and Lasix as previously advised. 2. Advised to follow up in GI office after discharge. 3. Low salt diet. DC per medicine. Thank you for this kind referral and the opportunity to participate in the care of your patient. This consultation was discussed with Dr. Joseph. The impression and plan of care have been directed as dictated.
[2017-06-25] MEDS: traMADol 50 MG TAB PO PRN (13:13)
[2017-06-25] MEDS: MULTIVITAMINS, THERA 1 EACH TAB PO SCH (13:15)
--- NOTE | 2017-06-25 13:40 | P.DS ---
Providers Date of admission: 06/23/17 19:53 Attending physician: Maikol Alcaraz Consults: 06/23/17 19:54 Consult Physician Routine Consulting Provider: Ede Son Consult Reason/Comments: Ultrasound-guided paracentesis Do you want consulting provider notified?: Yes, Notify in am 06/24/17 14:25 Consult Physician Routine Consulting Provider: Jayy Joseph Consult Reason/Comments: Cirrhosis Do you want consulting provider notified?: Yes Primary care physician: Stated None Hospital Course: Patient was admitted for Therapeutic paracentesis patient underwent paracentesis with removal of around 18 L of peritoneal fluid. Suspicion is low for peptic peritonitis but continued minimal tenderness in the abdomen because of which I'm going give her antibiotics for 5 days in the form of Ceftin 500 twice a day in spite of no clear-cut evidence of peritonitis unfortunately the peritoneal fluid was not sent for analysis. Patient is presently complaining of for minimal lightheadedness which I'm expecting to improve will be discharged later in the day and improves. Please refer to my dictation of H&P for further details of hospitalization and other medical problems and management Patient Condition at Discharge: Stable Plan - Discharge Summary Discharge Rx Participant: Yes New Discharge Prescriptions: New traMADol HCL [Ultram] 50 mg PO Q4HR PRN #20 tab PRN Reason: Pain Cefuroxime Axetil [Ceftin] 500 mg PO BID #10 tab Discontinued HYDROcodone/APAP 5-325MG [[place] 5-325] 1 tab PO Q6H PRN PRN Reason: Pain No Action Multivitamins, Thera [Multivitamin (formulary)] 1 tab PO DAILY Furosemide [Lasix] 40 mg PO BID #60 tablet Spironolactone [Aldactone] 50 mg PO BID #60 tab Sofosbuvir/Velpatasvir [Epclusa 400 mg-100 mg Tablet] 1 tab PO DAILY Discharge Medication List Multivitamins, Thera [Multivitamin (formulary)] 1 tab PO DAILY 03/05/17 [History ] Furosemide [Lasix] 40 mg PO BID #60 tablet 03/18/17 [Rx] Spironolactone [Aldactone] 50 mg PO BID #60 tab 03/18/17 [Rx] Sofosbuvir/Velpatasvir [Epclusa 400 mg-100 mg Tablet] 1 tab PO DAILY 04/30/17 [ History] traMADol HCL [Ultram] 50 mg PO Q4HR PRN #20 tab 06/24/17 [Rx] Cefuroxime Axetil [Ceftin] 500 mg PO BID #10 tab 06/25/17 [Rx] Follow up Appointment(s)/Referral(s): None,Stated [Primary Care Provider] - 3 Days Agueda Smyth PAC [REFERRING] - 07/10/17 8:00 am Discharge Disposition: HOME SELF-CARE
[2017-06-26] MEDS ORDERED: PANTOPRAZOLE 40 MG TABLET PO SCH (09:00)
== END 2017-06-25 15:50 | disposition home or self-care (01) ==
LOC: EC 17:45 → 3OBS 19:53
PROVIDERS: ADMIT Internal Medicine; ATTEND Internal Medicine
DX: K71.51 Toxic liver disease with chronic active hepatitis with ascites (principal); B18.2 Chronic viral hepatitis C; R42 Dizziness and giddiness; K74.60 Unspecified cirrhosis of liver; K21.9 Gastro-esophageal reflux disease without esophagitis; H91.92 Unspecified hearing loss, left ear; I10 Essential (primary) hypertension; D61.818 Other pancytopenia; C50.912 Malignant neoplasm of unspecified site of left female breast; Z92.21 Personal history of antineoplastic chemotherapy; F17.200 Nicotine dependence, unspecified, uncomplicated; E66.9 Obesity, unspecified; Z68.29 Body mass index [BMI] 29.0-29.9, adult; I95.9 Hypotension, unspecified; Z80.1 Family history of malignant neoplasm of trachea, bronchus and lung; Z82.49 Family history of ischemic heart disease and other diseases of the circulatory system; Z79.899 Other long term (current) drug therapy; F10.10 Alcohol abuse, uncomplicated; F32.9 Major depressive disorder, single episode, unspecified; F41.9 Anxiety disorder, unspecified; I85.10 Secondary esophageal varices without bleeding; K76.6 Portal hypertension
CPT/HCPCS: 99284 ×2; 96374 ×2; 96361 ×5; 96375 ×2; 96376 ×2; 36415; 80053; 82140; 82150; 82550; 82553; 83690; 83735; 85025; 85610; 85730; 87040; 49083; G0378 ×3; J0595; J2405; J3010; C9113; J2270 ×2

== ENCOUNTER 2017-07-02 19:18 | Observation (INO) | payer MEDICARE, OTHER ==
--- NOTE | 2017-07-02 19:54 | ED ---
General Adult HPI - General Chief complaint: Abdominal Pain Stated complaint: Abd pain Time Seen by Provider: 07/02/17 19:44 Source: patient, RN notes reviewed, old records reviewed Mode of arrival: ambulatory Limitations: no limitations - History of Present Illness Initial comments: This is a 61-year-old female to the ER for evaluation. Patient will facility. History of about pain multiple medical issues. Severe portal hypertension and ascites, cirrhosis. Patient having severe abdominal pain at this time. Patient is and denies any recent fevers. He has multiple recent hospital admissions for similar events. Patient is not taking any pain medication at this time - Related Data Home Medications Medication Instructions Recorded Confirmed Multivitamins, Thera [Multivitamin 1 tab PO DAILY 03/05/17 07/14/17 (formulary)] Sofosbuvir/Velpatasvir [Epclusa 1 tab PO DAILY 04/30/17 07/14/17 400 mg-100 mg Tablet] HYDROcodone/APAP 7.5-325MG [[place] 1 tab PO Q6H PRN 07/10/17 07/14/17 7.5-325] Previous Rx's Medication Instructions Recorded Furosemide [Lasix] 40 mg PO BID #60 tablet 03/18/17 Spironolactone [Aldactone] 50 mg PO BID #60 tab 03/18/17 Allergies Allergy/AdvReac Type Severity Reaction Status Date / Time No Known Allergies Allergy Verified 07/14/17 20:23 Review of Systems ROS Statement: Those systems with pertinent positive or pertinent negative responses have been documented in the HPI. ROS Other: All systems not noted in ROS Statement are negative. Past Medical History Past Medical History: Cancer, GERD/Reflux, GI Bleed, Hearing Disorder / Deafness , Hypertension, Liver Disease Additional Past Medical History / Comment(s): Hepatitis C, intractable ascities , cirrhosis, pancytopenia, vertigo; "benign abd mass", states has had esophageal banding, lt breast cancer had chemo last on 09-12-16-did not tolerate- completed only 3 cycles-then it was stopped, lt ear hearing loss, multiple upper GI bleeds. History of Any Multi-Drug Resistant Organisms: None Reported Past Surgical History: Adenoidectomy, Tonsillectomy Additional Past Surgical History / Comment(s): Paracentesises, EGD, esophageal banding, rt chest mediport 5-3-17, l breast bx. Past Anesthesia/Blood Transfusion Reactions: No Reported Reaction Additional Past Anesthesia/Blood Transfusion Reaction / Comment(s): blood transfusions- no reaction Past Psychological History: Anxiety Smoking Status: Current every day smoker Past Alcohol Use History: None Reported Past Drug Use History: None Reported - Past Family History Mother Family Medical History: Cancer Additional Family Medical History / Comment(s): of lung ca at the age of 59yrs. She was a smoker. Father Family Medical History: Myocardial Infarction ([place]) Additional Family Medical History / Comment(s): from 2nd heart attack at the age of 59yrs. General Exam Limitations: no limitations General appearance: alert, in no apparent distress Head exam: Present: atraumatic, normocephalic, normal inspection Eye exam: Present: normal appearance, PERRL, EOMI. Absent: scleral icterus, conjunctival injection, periorbital swelling ENT exam: Present: normal exam, mucous membranes moist Neck exam: Present: normal inspection. Absent: tenderness, meningismus, lymphadenopathy Respiratory exam: Present: normal lung sounds bilaterally. Absent: respiratory distress, wheezes, rales, rhonchi, stridor Cardiovascular Exam: Present: regular rate, normal rhythm, normal heart sounds. Absent: systolic murmur, diastolic murmur, rubs, gallop, clicks GI/Abdominal exam: Present: soft, normal bowel sounds. Absent: distended, tenderness, guarding, rebound, rigid Extremities exam: Present: normal inspection, full ROM, normal capillary refill. Absent: tenderness, pedal edema, joint swelling, calf tenderness Back exam: Present: normal inspection Neurological exam: Present: alert, oriented X3, CN II-XII intact Psychiatric exam: Present: normal affect, normal mood Skin exam: Present: warm, dry, intact, normal color. Absent: rash Course Vital Signs 07/02/17 07/02/17 19:21 20:59 Temperature 97.7 F 97.3 F L Pulse Rate 99 97 Respiratory 18 18 Rate Blood Pressure 128/59 133/60 O2 Sat by Pulse 99 99 Oximetry Medical Decision Making - Medical Decision Making 51 female well-known to our facility for severe cirrhosis and tense ascites. Patient be admitted for therapeutic paracentesis - Lab Data Result diagrams: 07/04/17 07:07 07/04/17 07:07 Disposition Clinical Impression: Portal hypertension, Epigastric abdominal pain, Ascites of liver, Breast cancer , Hepatitis C Disposition: ADMITTED IP TO THIS HOSP Condition: Fair
[2017-07-02] MEDS ORDERED: PANTOPRAZOLE 40 MG/10 ML VIAL IVP STA (19:55)
[2017-07-02] MEDS ORDERED: MORPHINE SULFATE/PF 10MG/10ML VL IVP STA (19:55)
[2017-07-02] MEDS ORDERED: ONDANSETRON 4 MG/2 ML VIAL IVP STA (19:55)
[2017-07-02] MEDS ORDERED: SODIUM CHLORIDE 0.9% 1,000 ML IV STA (19:55)
[2017-07-02 20:48] LABS: Basophils % (A) 0 %; Eosinophils # (A) 0.1 k/uL (0-0.7); Eosinophils % (A) 3 %; HCT 29.8 % (34.0-46.0); HGB 9.9 gm/dL (11.4-16.0); Lymphocytes # (A) 0.8 k/uL (1.0-4.8); Lymphocytes % (A) 23 %; MCH 35.1 pg (25.0-35.0); MCHC 33.2 g/dL (31.0-37.0); MCV 105.9 fL (80.0-100.0); Macrocytosis Moderate; Mean Platelet Volume 8.6; Monocytes # (A) 0.4 k/uL (0-1.0); Monocytes % (A) 12 %; Neutrophils % (A) 58 %; Platelet Count 111 k/uL (150-450); Poikilocytosis Slight; RBC 2.81 m/uL (3.80-5.40); RDW 14.6 % (11.5-15.5); WBC 3.4 k/uL (3.8-10.6)
[2017-07-02 21:03] LABS: ALT 26 U/L (9-52); AST 36 U/L (14-36); Albumin 2.4 g/dL (3.5-5.0); Alkaline Phosphatase 110 U/L (38-126); Amylase 45 U/L (30-110); Anion Gap 8 mmol/L; Blood Urea Nitrogen 16 mg/dL (7-17); Calcium 8.4 mg/dL (8.4-10.2); Carbon Dioxide 26 mmol/L (22-30); Chloride 102 mmol/L (98-107); Glucose 98 mg/dL (74-99); Lipase 169 U/L (23-300); Potassium 3.6 mmol/L (3.5-5.1); Sodium 136 mmol/L (137-145); Total Bilirubin 1.8 mg/dL (0.2-1.3); Total Protein 6.3 g/dL (6.3-8.2)
[2017-07-03] MEDS: MORPHINE SULFATE/PF 10MG/10ML VL IV PRN ×4 (00:44→12:26)
[2017-07-03 01:16] VITALS: BMI 24.3
[2017-07-03 08:39] LABS: INR 1.2 (<1.2); Partial Thromboplastin Time 26.2 sec (22.0-30.0); Prothrombin Time 11.8 sec (9.0-12.0)
--- NOTE | 2017-07-03 11:46 | US ---
EXAMINATION TYPE: US paracentesis abd w/image DATE OF EXAM: 07/03/2017 CLINICAL HISTORY: Cirrhosis with recurrent ascites and distention. Comparison: Prior ultrasound-guided paracentesis from 9 days ago and older studies. Findings: The procedure was discussed with the patient. The risks, complications, benefits, and alter natives were discussed and any questions were answered. Informed consent was obtained. The patient was placed supine on the ultrasound table and prepped and draped in the usual sterile fas hion. All elements of maximal barrier technique were utilized. Under ultrasound guidance, access in to the right lower quadrant was obtained, via the paracentesis catheter system and direct ultrasound guidance. Approximately 13.75 liters of straw-colored fluid was removed. The patient was stable throughout the procedure and remained stable upon discharge from Department of Radiology. Intravascular albumin was ordered as per guidelines. IMPRESSION: Successful therapeutic paracentesis under ultrasound guidance.
[2017-07-03] MEDS: ALBUMIN HUMAN 25% 50 ML in EMPTY BAG 1 BAG IVPB SCH ×4 (11:51→13:40)
[2017-07-03] MEDS: HYDROcodone/APAP 5-325MG 1 EACH TAB PO PRN ×2 (17:36→22:51)
[2017-07-03 17:56] LABS: Appearance,Urine Cloudy (Clear); Bacteria,Urine Occasional /hpf; Bilirubin,Urine Negative (Negative); Blood,Urine Negative (Negative); Color,Urine Yellow; Glucose,Urine (UA) Negative (Negative); Ketones,Urine Negative (Negative); Leukocyte Esterase,Urine Small (Negative); Mucus,Urine Many /hpf; Nitrite,Urine Negative (Negative); Protein,Urine 1+ (Negative); RBC,Urine 2 /hpf (0-5); Specific Gravity,Urine 1.025 (1.001-1.035); Squamous Epithelial Cell,Urine 6 /hpf (0-4); WBC,Urine 8 /hpf (0-5)
--- NOTE | 2017-07-03 18:04 | HP ---
HISTORY AND PHYSICAL DATE OF SERVICE: 07/03/2017 CHIEF COMPLAINTS: Abdominal pain, distention. HISTORY OF PRESENT ILLNESS: This 51-year-old woman with a past medical history of multiple medical problems, including history of hearing difficulty, hypertension, history of chronic liver disease, hepatitis C, ascites, not being followed by a primary physician currently, apparently has seen Dr. Estrada previously. The patient is complaining of severe abdominal pain and distention. Patient came to [facility]. The patient was evaluated by Interventional Radiology, who performed an ultrasound-guided paracentesis; about 13.75 liters of straw-colored fluid was removed. The patient is being closely monitored at this time. There is no history of any fever, rigor or chills; no history of headache, loss of consciousness, seizures. PAST MEDICAL HISTORY: 1. History of chronic pain syndrome. 2. History of GERD. 3. GI bleed. 4. Hearing defects. 5. Hypertension. 6. History of hepatitis C. MEDICATIONS PRIOR TO ADMISSION: 1. Aldactone 50 mg p.o. b.i.d. 2. Epclusa 400 mg 1 p.o. daily. 3. Multivitamins 1 p.o. daily. 4. Lasix 40 mg p.o. b.i.d. ALLERGIES: NONE. FAMILY HISTORY: History of lung cancer in the family. SOCIAL HISTORY: History of smoking on a daily basis. No history of alcohol intake. REVIEW OF SYSTEMS: ENT: No diminished hearing. No diminished vision. CARDIOVASCULAR SYSTEM: No angina, palpitations. RESPIRATORY SYSTEM: No cough, hemoptysis. GI: As mentioned earlier. : No dysuria or retention. NERVOUS SYSTEM: No numbness, weakness. ALLERGY/IMMUNOLOGY: No asthma, hayfever. MUSCULOSKELETAL: As mentioned earlier. HEMATOLOGY/ONCOLOGY: No history of anemia. ENDOCRINE: No history of diabetes, hypothyroidism. CONSTITUTIONAL: As mentioned earlier. DERMATOLOGY: Negative. RHEUMATOLOGY: Negative. PSYCHIATRY: As mentioned earlier. PHYSICAL EXAMINATION: Patient alert and oriented x3. Pulse is 93, blood pressure 91/52, respiration 16, temperature 98.3, pulse ox 98% on room air. HEENT: Conjunctivae normal. Oral mucosa moist. NECK: No jugular venous distention. No carotid bruit. No lymph node enlargement. CARDIOVASCULAR SYSTEM: S1, S2 muffled. No S3. No S4. RESPIRATORY SYSTEM: Breath sounds diminished at the bases. A few scattered rhonchi and crackles. ABDOMEN: Soft. Mild diffuse distention and ascites present. LEGS: Minimal edema. NERVOUS SYSTEM: Higher functions as mentioned earlier. Moves all 4 limbs. No focal motor or sensory deficit. LYMPHATICS: No lymph node palpable in neck, axillae or groin. SKIN: No ulcer, rash, bleeding. LABS: Labs at this time show WBC 3.4, hemoglobin 9.9. Other labs are noted. ASSESSMENT: 1. Diffuse ascites secondary to cirrhosis of the liver secondary to chronic hepatitis C, status post abdominal paracentesis. 2. Mild pancytopenia, possibly secondary to cirrhosis of the liver. 3. Hyponatremia. 4. History of gastrointestinal bleed. 5. Hypertension. 6. History of ascites and previous paracentesis. 7. History of chronic pain syndrome. 8. History of esophageal banding. 9. History of anxiety. 10.History of nicotine dependence. RECOMMENDATIONS AND DISCUSSION: In this 51-year-old woman who presented with multiple complex medical issues, we will monitor the patient closely. I would recommend diuretics. Interventional radiology for abdominal paracentesis. Gastrointestinal evaluation. Guarded prognosis because of multiple complex medical issues. Further recommendations to follow. See orders for further details. MMODL / IJN: [id number] /
[2017-07-03] MEDS: SPIRONOLACTONE 25 MG TAB PO SCH (20:56)
[2017-07-03] MEDS: FUROSEMIDE 40 MG TAB PO SCH (20:56)
[2017-07-04] MEDS: HYDROcodone/APAP 5-325MG 1 EACH TAB PO PRN ×2 (06:34→10:36)
[2017-07-04 07:31] LABS: INR 1.4 (<1.2)
[2017-07-04 07:38] LABS: ALT 22 U/L (9-52); AST 23 U/L (14-36); Albumin 1.8 g/dL (3.5-5.0); Alkaline Phosphatase 56 U/L (38-126); Anion Gap 6 mmol/L; Blood Urea Nitrogen 15 mg/dL (7-17); Calcium 7.8 mg/dL (8.4-10.2); Carbon Dioxide 25 mmol/L (22-30); Chloride 106 mmol/L (98-107); Glucose 95 mg/dL (74-99); Potassium 3.8 mmol/L (3.5-5.1); Sodium 137 mmol/L (137-145); Total Bilirubin 1.6 mg/dL (0.2-1.3); Total Protein 4.4 g/dL (6.3-8.2)
[2017-07-04 07:39] LABS: Basophils % (A) 0 %; Eosinophils # (A) 0.1 k/uL (0-0.7); Eosinophils % (A) 2 %; HCT 23.2 % (34.0-46.0); Lymphocytes # (A) 0.6 k/uL (1.0-4.8); Lymphocytes % (A) 20 %; MCH 36.1 pg (25.0-35.0); MCHC 34.3 g/dL (31.0-37.0); MCV 105.3 fL (80.0-100.0); Macrocytosis Moderate; Mean Platelet Volume 8.6; Monocytes # (A) 0.3 k/uL (0-1.0); Monocytes % (A) 10 %; Neutrophils # (A) 1.8 k/uL (1.3-7.7); Neutrophils % (A) 65 %; Poikilocytosis Slight; RBC 2.21 m/uL (3.80-5.40); RDW 14.4 % (11.5-15.5); WBC 2.8 k/uL (3.8-10.6)
[2017-07-04 07:58] VITALS: BP 95/53; PULSE 83; RESP 18; TEMP 98.2
[2017-07-04 08:09] LABS: Platelet Count 63 k/uL (150-450); Polychromasia Present
[2017-07-04] MEDS: SPIRONOLACTONE 25 MG TAB PO SCH (08:16)
[2017-07-04] MEDS: FUROSEMIDE 40 MG TAB PO SCH (08:16)
[2017-07-04] MEDS ORDERED: SOFOSBUVIR PO SCH (09:00)
[2017-07-04] MEDS ORDERED: VELPATASVIR PO SCH (09:00)
--- NOTE | 2017-07-04 11:53 | DS ---
DISCHARGE SUMMARY DATE OF SERVICE: 07/04/2017. FINAL DIAGNOSES: 1. Diffuse ascites secondary to cirrhosis of liver secondary to chronic hepatitis C, status post abdominal paracentesis. 2. Mild pancytopenia possibly secondary to cirrhosis of the liver. 3. Chronic pain syndrome. 4. Hyponatremia. 5. History of GI bleed. 6. Hypertension. 7. History of ascites and previous paracentesis. 8. History of chronic pain. 9. History of esophageal variceal banding. 10.History of anxiety. 11.History of nicotine dependence. DISCHARGE DISPOSITION: The patient will be discharged in stable condition with guarded prognosis. HISTORY OF PRESENT ILLNESS: This 51-year-old woman with a past history of multiple medical problems admitted with diffuse ascites, acetic tap was done. Patient improved significantly. Patient also had chronic pain issues. I recommend the patient to follow up with the Pain Clinic in the outpatient setting otherwise. On exam, vitals are stable. CARDIOVASCULAR: S1, S2 ABDOMEN: Soft, minimal ascites. NERVOUS SYSTEM: No focal deficits. DISCHARGE ADVICE AND MEDICATIONS: 1. Diet is cardiac. 2. Activity limited until followup. 3. Follow up with Dr. Symone Engel in the 2 to 3 days. 4. Follow up with Dr. Joseph as advised. 5. Follow with the Pain Clinic as advised. MEDICATIONS: 1. Lasix 40 mg p.o. b.i.d. 2. [place] 5 mg q.6h p.r.n. 3. Multivitamins 1 p.o. daily. 4. Sofosbuvir/Velpatasvir 1 daily. 5. Aldactone 50 mg p.o. b.i.d. Once again the patient discharged in stable condition with guarded prognosis. MMODL / IJN: [id number] /
[2017-07-04] MEDS ORDERED: MULTIVITAMINS, THERA 1 EACH TAB PO SCH (12:00)
== END 2017-07-04 12:00 | disposition home or self-care (01) ==
LOC: EC 19:18 → 5MS5E 19:55
PROVIDERS: ADMIT Hospitalist; ATTEND Hospitalist
DX: B18.2 Chronic viral hepatitis C (principal); K74.60 Unspecified cirrhosis of liver; R18.8 Other ascites; K76.6 Portal hypertension; D61.818 Other pancytopenia; C50.919 Malignant neoplasm of unspecified site of unspecified female breast; I10 Essential (primary) hypertension; G89.4 Chronic pain syndrome; K21.9 Gastro-esophageal reflux disease without esophagitis; E87.1 Hypo-osmolality and hyponatremia; F17.200 Nicotine dependence, unspecified, uncomplicated; F41.9 Anxiety disorder, unspecified; H91.90 Unspecified hearing loss, unspecified ear; Z79.899 Other long term (current) drug therapy; Z87.19 Personal history of other diseases of the digestive system; Z92.21 Personal history of antineoplastic chemotherapy; Z81.2 Family history of tobacco abuse and dependence; Z80.1 Family history of malignant neoplasm of trachea, bronchus and lung; Z82.49 Family history of ischemic heart disease and other diseases of the circulatory system
CPT/HCPCS: 96361; 96375; 99285; J2270; 36415; 49083; 80053; 81001; 82140; 82150; 83690; 85025; 85610; 85730; 96365; 96376

== ENCOUNTER 2017-07-10 04:34 | Inpatient (IN) | payer MEDICARE, OTHER ==
[2017-07-10] MEDS ORDERED: PANTOPRAZOLE 40 MG/10 ML VIAL IVP STA (05:00)
[2017-07-10] MEDS ORDERED: SODIUM CHLORIDE 0.9% 1,000 ML IV STA (05:00)
[2017-07-10] MEDS ORDERED: MORPHINE SULFATE 4MG/4ML SYRG IV STA (05:00)
--- NOTE | 2017-07-10 05:03 | ED ---
General Adult HPI - General Chief complaint: Abdominal Pain Stated complaint: side pain Time Seen by Provider: 07/10/17 04:52 Source: patient, RN notes reviewed, old records reviewed Mode of arrival: ambulatory Limitations: no limitations - History of Present Illness Initial comments: This is a 51-year-old female well-known to this emergency room for evaluation. Patient has all normal documented history of liver cirrhosis with portal hypertension, ascites. Patient at this point states that she is having severe abdominal pain. Nothing is working for pain at home increased nausea, no fevers no diarrhea. No other complaints - Related Data Home Medications Medication Instructions Recorded Confirmed Multivitamins, Thera [Multivitamin 1 tab PO DAILY 03/05/17 07/02/17 (formulary)] Sofosbuvir/Velpatasvir [[place] 1 tab PO DAILY 04/30/17 07/02/17 400 mg-100 mg Tablet] Previous Rx's Medication Instructions Recorded Furosemide [Lasix] 40 mg PO BID #60 tablet 03/18/17 Spironolactone [Aldactone] 50 mg PO BID #60 tab 03/18/17 HYDROcodone/APAP 5-325MG [[place] 1 each PO Q6HR PRN #20 tab 07/04/17 5-325] Allergies Allergy/AdvReac Type Severity Reaction Status Date / Time No Known Allergies Allergy Verified 07/10/17 04:41 Review of Systems ROS Statement: Those systems with pertinent positive or pertinent negative responses have been documented in the HPI. ROS Other: All systems not noted in ROS Statement are negative. Past Medical History Past Medical History: Cancer, GERD/Reflux, GI Bleed, Hearing Disorder / Deafness , Hypertension, Liver Disease Additional Past Medical History / Comment(s): Hepatitis C, ascities, cirrhosis, pancytopenia, vertigo; "benign abd mass", states has had esophageal banding, lt breast cancer had chemo last on 09-12-16-did not tolerate-completed only 3 cycles- then it was stopped, lt ear hearing loss, multiple upper GI bleeds. History of Any Multi-Drug Resistant Organisms: None Reported Past Surgical History: Adenoidectomy, Tonsillectomy Additional Past Surgical History / Comment(s): Paracentesises, EGD, esophageal banding, rt chest mediport 08-06-16, l breast bx. Past Anesthesia/Blood Transfusion Reactions: No Reported Reaction Additional Past Anesthesia/Blood Transfusion Reaction / Comment(s): blood transfusions- no reaction Past Psychological History: Anxiety Smoking Status: Current every day smoker Past Alcohol Use History: None Reported Past Drug Use History: None Reported - Past Family History Mother Family Medical History: Cancer Additional Family Medical History / Comment(s): of lung ca at the age of 59yrs. She was a smoker. Father Family Medical History: Myocardial Infarction ([place]) Additional Family Medical History / Comment(s): from 2nd heart attack at the age of 59yrs. General Exam Limitations: no limitations General appearance: alert, in no apparent distress Head exam: Present: atraumatic, normocephalic, normal inspection Eye exam: Present: normal appearance, PERRL, EOMI. Absent: scleral icterus, conjunctival injection, periorbital swelling ENT exam: Present: normal exam, mucous membranes moist Neck exam: Present: normal inspection. Absent: tenderness, meningismus, lymphadenopathy Respiratory exam: Present: normal lung sounds bilaterally. Absent: respiratory distress, wheezes, rales, rhonchi, stridor Cardiovascular Exam: Present: regular rate, normal rhythm, normal heart sounds. Absent: systolic murmur, diastolic murmur, rubs, gallop, clicks GI/Abdominal exam: Present: soft, normal bowel sounds. Absent: distended, tenderness, guarding, rebound, rigid Extremities exam: Present: normal inspection, full ROM, normal capillary refill. Absent: tenderness, pedal edema, joint swelling, calf tenderness Back exam: Present: normal inspection Neurological exam: Present: alert, oriented X3, CN II-XII intact Psychiatric exam: Present: normal affect, normal mood Skin exam: Present: warm, dry, intact, normal color. Absent: rash Course Vital Signs 07/10/17 04:38 Temperature 97.6 F Pulse Rate 110 H Respiratory 16 Rate Blood Pressure 121/87 O2 Sat by Pulse 100 Oximetry - Reevaluation(s) Reevaluation #1: 07/10/17 05:02 Medical records thoroughly reviewed including prior ER stay Medical Decision Making - Medical Decision Making 51 female with known cirrhosis tense ascites coming in for abdominal pain. Will admit for pain control, therapeutic paracentesis Disposition Clinical Impression: Portal hypertension, Abdominal pain, Ascites Disposition: ADMITTED IP TO THIS HOSP Condition: Fair Referrals: Mark Estrada MD [Primary Care Provider] - 1-2 days
[2017-07-10] MEDS ORDERED: ONDANSETRON 4 MG/2 ML VIAL IVP STA (05:24)
[2017-07-10 05:33] LABS: HCT 29.7 % (34.0-46.0); MCH 34.8 pg (25.0-35.0); MCHC 33.3 g/dL (31.0-37.0); MCV 104.5 fL (80.0-100.0); Macrocytosis Moderate; Poikilocytosis Slight; RBC 2.84 m/uL (3.80-5.40); RDW 14.6 % (11.5-15.5); WBC 4.2 k/uL (3.8-10.6)
[2017-07-10 05:48] LABS: ALT 17 U/L (9-52); AST 29 U/L (14-36); Albumin 2.3 g/dL (3.5-5.0); Alkaline Phosphatase 115 U/L (38-126); Amylase 43 U/L (30-110); Anion Gap 8 mmol/L; Blood Urea Nitrogen 20 mg/dL (7-17); Calcium 8.2 mg/dL (8.4-10.2); Carbon Dioxide 22 mmol/L (22-30); Chloride 105 mmol/L (98-107); Glucose 109 mg/dL (74-99); Lipase 214 U/L (23-300); Potassium 3.8 mmol/L (3.5-5.1); Sodium 135 mmol/L (137-145); Total Bilirubin 0.7 mg/dL (0.2-1.3); Total Protein 5.9 g/dL (6.3-8.2)
[2017-07-10 05:50] LABS: INR 1.1 (<1.2); Partial Thromboplastin Time 24.4 sec (22.0-30.0); Prothrombin Time 10.9 sec (9.0-12.0)
[2017-07-10 05:52] LABS: HGB 9.9 gm/dL (11.4-16.0)
[2017-07-10 06:55] LABS: Anisocytosis (M) Present; Eosinophils # (M) 0.21 k/uL (0-0.7); Neutrophils # (M) 2.18 k/uL (1.3-7.7); Neutrophils % (M) 52 %; Nucleated Red Blood Cells 0 /100 WBC (0-0); Polychromasia Present; Total Cells Counted 100
[2017-07-10 06:58] LABS: Platelet Count 98 k/uL (150-450)
[2017-07-10 10:04] VITALS: BMI 23.8
[2017-07-10] MEDS: HYDROcodone/APAP 7.5-325MG 1 EACH TAB PO PRN ×2 (11:50→17:44)
--- NOTE | 2017-07-10 12:57 | US ---
Therapeutic paracentesis. DATE OF EXAM: 07/10/2017 CLINICAL HISTORY: Ascites The procedure was discussed with the patient. The risks, complications, benefits, and alternatives we re discussed and any questions were answered. Informed consent was obtained. The patient was placed s upine on the ultrasound table and prepped and draped in the usual sterile fashion. All elements of maximal barrier technique were utilized. Under ultrasound guidance, access into the right lower quadrant was obtained, via the paracentesis catheter system and direct ultrasound guidanc e. Approximately 12 liters of serous fluid was removed. The patient was stable throughout the procedure and remained stable upon discharge from Department of Radiology. IMPRESSION: Successful therapeutic paracentesis under ultrasound guidance.
[2017-07-10] MEDS: ALBUMIN HUMAN 25% 50 ML in EMPTY BAG 1 BAG IVPB SCH ×4 (13:11→20:43)
[2017-07-10] MEDS: MORPHINE ORAL SOLN 10 MG/5 ML CUP PO PRN ×2 (14:28→20:21)
--- NOTE | 2017-07-10 15:13 | P.GSCN ---
<Nanci Canas - Last Filed: 07/10/17 15:03> History of Present Illness Consult date: 07/10/17 Reason for Consult: Paracentesis done today showed fluid change in color History of present illness: 51-year-old thin cachectic looking older than stated age female presented to the emergency room on the 10 of July be evaluated for severe abdominal pain. Patient stated that nothing she took at home would relieve the pain was experiencing nausea. Denied fever chills. Patient has had frequent admissions with weekly paracentesis for underlying recurrent ascites from liver disease. Patient underwent today a paracentesis with 12 L fluid removed noted was report color fluid change Patient is teary-eyed easily agitated does not want to respond to health history asking to be left alone does not want to know any information "just give me my pain medication" questioning patient about abdominal pain patient states her abdomen "always hurts currently soft slight tenderness to the epigastric area Patient has underlying liver disease cirrhosis of the liver, hepatitis C, esophageal varices, with esophageal banding EtOH abuse, portal hypertension, recurrent ascites requiring large-volume paracentesis, left breast cancer, had chemo last in September 2016 did not tolerate treatment completed only 3 cycles then stopped multiple admissions for GI bleed anxiety depressive disorder. Patient was last seen in Dr. Puente's office in September 2016 treated for early stage to be invasive ductal carcinoma. Was not able to tolerate the chemotherapy due to severe hematological toxicities felt to be related to her severe liver disease from hepatitis C and cirrhosis. Patient was to have an appointment at [facility]. Patient states it's very hard for her to keep any of the appointment she does not drive has no support the referral to [facility] for surgical eval due to patient's high risk surgical candidate due to severe liver disease Review of Systems Difficult to obtain patient has no recall Past Medical History Past Medical History: Cancer, GERD/Reflux, GI Bleed, Hearing Disorder / Deafness , Hypertension, Liver Disease Additional Past Medical History / Comment(s): Hepatitis C, ascities, cirrhosis, pancytopenia, vertigo; "benign abd mass", states has had esophageal banding, lt breast cancer had chemo last on 09-12-16-did not tolerate-completed only 3 cycles- then it was stopped, lt ear hearing loss, multiple upper GI bleeds. History of Any Multi-Drug Resistant Organisms: None Reported Past Surgical History: Adenoidectomy, Tonsillectomy Additional Past Surgical History / Comment(s): Paracentesises, EGD, esophageal banding, rt chest mediport 08-06-16, l breast bx. Past Anesthesia/Blood Transfusion Reactions: No Reported Reaction Additional Past Anesthesia/Blood Transfusion Reaction / Comm: blood transfusions - no reaction Past Psychological History: Anxiety Additional Psychological History / Comment(s): Has a history of hepatitis C with esophageal variceal bleeds requiring banding several years ago. denies any drug use. No experience. No international travel. No animal exposures. pt's son lives with her.2 story home 1 front step. pt's bathroom and bedroom on 2nd floor.has a bsc at home. Smoking Status: Current every day smoker Past Alcohol Use History: None Reported Additional Past Alcohol Use History / Comment(s): pt started smoking at age 13 smoked 1/2 ppd but more recently stated only smoking 1 cig per day Pt states she has never been a drinker. Past Drug Use History: None Reported - Past Family History Mother Family Medical History: Cancer Additional Family Medical History / Comment(s): of lung ca at the age of 59yrs. She was a smoker. Father Family Medical History: Myocardial Infarction ([place]) Additional Family Medical History / Comment(s): from 2nd heart attack at the age of 59yrs. Medications and Allergies Home Medications Medication Instructions Recorded Confirmed Type Multivitamins, Thera [Multivitamin 1 tab PO DAILY 03/05/17 07/10/17 History (formulary)] Furosemide [Lasix] 40 mg PO BID #60 tablet 03/18/17 07/10/17 Rx Spironolactone [Aldactone] 50 mg PO BID #60 tab 03/18/17 07/10/17 Rx Sofosbuvir/Velpatasvir [Epclusa 1 tab PO DAILY 04/30/17 07/10/17 History 400 mg-100 mg Tablet] HYDROcodone/APAP 7.5-325MG [[place] 1 tab PO Q6H PRN 07/10/17 07/10/17 History 7.5-325] Allergies Allergy/AdvReac Type Severity Reaction Status Date / Time No Known Allergies Allergy Verified 07/10/17 06:33 Surgical - Exam Vital Signs Temp Pulse Resp BP Pulse Ox 97.6 F 110 H 16 121/87 100 07/10/17 04:38 07/10/17 04:38 07/10/17 04:38 07/10/17 04:38 07/10/17 04:38 GENERAL APPEARANCE: Cachectic frail thin looking older than stated age teary- eyed agitated requesting pain medication VITAL SIGNS: Reviewed HEENT: Head is normocephalic and atraumatic. Pupils are equal and reactive. The nares are patent. Oropharynx is clear without lesions. NECK: Supple without lymphadenopathy. Traches midline. Chest MediPort right anterior chest wall dressing dry patient refuses a breast exam HEART: S1, S2. Regular rate and rhythm. No murmur noted LUNGS: No crackles or wheezes are heard. Diminished at the bases no cough noted no shortness of breath ABDOMEN: Soft, mild tenderness epigastric area nondistended with good bowel sounds. No peritoneal signs. No palpable organomegaly or masses. States urinating no difficulty states no frequent stooling EXTREMITIES: Normal skin color and turgor. No cyanosis, rash, ulceration, clubbing or edema. Radial pedal pulses are 2/4 bilaterally. NEUROLOGICAL: No focal deficits. Strength and sensation are grossly intact. Results - Labs 07/10/17 05:17 07/10/17 05:17 Abnormal Lab Results - Last 24 Hours (Table) 07/10/17 07/10/17 07/10/17 Range/Units 05:17 05:17 05:17 RBC 2.84 L (3.80-5.40) m/uL Hgb 9.9 L D (11.4-16.0) gm/dL Hct 29.7 L (34.0-46.0) % MCV 104.5 H (80.0-100.0) fL Plt Count 98 L D (150-450) k/uL Sodium 135 L (137-145) mmol/L BUN 20 H (7-17) mg/dL Glucose 109 H (74-99) mg/dL Calcium 8.2 L (8.4-10.2) mg/dL Ammonia 79 H (<30) umol/L Total Protein 5.9 L (6.3-8.2) g/dL Albumin 2.3 L (3.5-5.0) g/dL Diabetes panel 07/10/17 Range/Units 05:17 Sodium 135 L (137-145) mmol/L Potassium 3.8 (3.5-5.1) mmol/L Chloride 105 (98-107) mmol/L Carbon Dioxide 22 (22-30) mmol/L BUN 20 H (7-17) mg/dL Creatinine 0.60 (0.52-1.04) mg/dL Glucose 109 H (74-99) mg/dL Calcium 8.2 L (8.4-10.2) mg/dL AST 29 (14-36) U/L ALT 17 (9-52) U/L Alkaline Phosphatase 115 (38-126) U/L Total Protein 5.9 L (6.3-8.2) g/dL Albumin 2.3 L (3.5-5.0) g/dL Calcium panel 07/10/17 Range/Units 05:17 Calcium 8.2 L (8.4-10.2) mg/dL Albumin 2.3 L (3.5-5.0) g/dL Pituitary panel 07/10/17 Range/Units 05:17 Sodium 135 L (137-145) mmol/L Potassium 3.8 (3.5-5.1) mmol/L Chloride 105 (98-107) mmol/L Carbon Dioxide 22 (22-30) mmol/L BUN 20 H (7-17) mg/dL Creatinine 0.60 (0.52-1.04) mg/dL Glucose 109 H (74-99) mg/dL Calcium 8.2 L (8.4-10.2) mg/dL Adrenal panel 07/10/17 Range/Units 05:17 Sodium 135 L (137-145) mmol/L Potassium 3.8 (3.5-5.1) mmol/L Chloride 105 (98-107) mmol/L Carbon Dioxide 22 (22-30) mmol/L BUN 20 H (7-17) mg/dL Creatinine 0.60 (0.52-1.04) mg/dL Glucose 109 H (74-99) mg/dL Calcium 8.2 L (8.4-10.2) mg/dL Total Bilirubin 0.7 (0.2-1.3) mg/dL AST 29 (14-36) U/L ALT 17 (9-52) U/L Alkaline Phosphatase 115 (38-126) U/L Total Protein 5.9 L (6.3-8.2) g/dL Albumin 2.3 L (3.5-5.0) g/dL Assessment and Plan Assessment: Impression History of untreated hepatitis C Pancytopenia suspect due to liver disease CURRENT EVERY DAY SMOKER Therapeutic paracentesis with 12 L removed with fluid color changed noted done on July 10 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 Left breast cancer with T3 tumor greater than 5 cm in greatest dimension could not complete chemotherapy Cirrhosis of the liver with esophageal varices Portal hypertension Reoccurring ascites with weekly therapeutic paracentesis Diffuse ascites secondary to cirrhosis of the liver secondary to chronic hepatitis with weekly abdominal paracentesis Chronic pain syndrome with opiate dependency Plan Would recommend infectious disease consult No surgical intervention at this time Defer to the attending for medical issues to be addressed Home meds appropriate DVT and GI prophylaxis Surgical consult dictated for Dr. Salinas The above impression and plan of care have been discussed and directed by signing physician. Nanci Canas nurse practitioner acting as scribe for signing physician. <Marisa Salinas N - Last Filed: 07/10/17 18:50> Surgical - Exam Vital Signs Temp Pulse Resp BP Pulse Ox 97.6 F 110 H 16 121/87 100 07/10/17 04:38 07/10/17 04:38 07/10/17 04:38 07/10/17 04:38 07/10/17 04:38 Results - Labs 07/10/17 05:17 07/10/17 05:17 Abnormal Lab Results - Last 24 Hours (Table) 07/10/17 07/10/17 07/10/17 Range/Units 05:17 05:17 05:17 RBC 2.84 L (3.80-5.40) m/uL Hgb 9.9 L D (11.4-16.0) gm/dL Hct 29.7 L (34.0-46.0) % MCV 104.5 H (80.0-100.0) fL Plt Count 98 L D (150-450) k/uL Sodium 135 L (137-145) mmol/L BUN 20 H (7-17) mg/dL Glucose 109 H (74-99) mg/dL Calcium 8.2 L (8.4-10.2) mg/dL Ammonia 79 H (<30) umol/L Total Protein 5.9 L (6.3-8.2) g/dL Albumin 2.3 L (3.5-5.0) g/dL Diabetes panel 07/10/17 Range/Units 05:17 Sodium 135 L (137-145) mmol/L Potassium 3.8 (3.5-5.1) mmol/L Chloride 105 (98-107) mmol/L Carbon Dioxide 22 (22-30) mmol/L BUN 20 H (7-17) mg/dL Creatinine 0.60 (0.52-1.04) mg/dL Glucose 109 H (74-99) mg/dL Calcium 8.2 L (8.4-10.2) mg/dL AST 29 (14-36) U/L ALT 17 (9-52) U/L Alkaline Phosphatase 115 (38-126) U/L Total Protein 5.9 L (6.3-8.2) g/dL Albumin 2.3 L (3.5-5.0) g/dL Calcium panel 07/10/17 Range/Units 05:17 Calcium 8.2 L (8.4-10.2) mg/dL Albumin 2.3 L (3.5-5.0) g/dL Pituitary panel 07/10/17 Range/Units 05:17 Sodium 135 L (137-145) mmol/L Potassium 3.8 (3.5-5.1) mmol/L Chloride 105 (98-107) mmol/L Carbon Dioxide 22 (22-30) mmol/L BUN 20 H (7-17) mg/dL Creatinine 0.60 (0.52-1.04) mg/dL Glucose 109 H (74-99) mg/dL Calcium 8.2 L (8.4-10.2) mg/dL Adrenal panel 07/10/17 Range/Units 05:17 Sodium 135 L (137-145) mmol/L Potassium 3.8 (3.5-5.1) mmol/L Chloride 105 (98-107) mmol/L Carbon Dioxide 22 (22-30) mmol/L BUN 20 H (7-17) mg/dL Creatinine 0.60 (0.52-1.04) mg/dL Glucose 109 H (74-99) mg/dL Calcium 8.2 L (8.4-10.2) mg/dL Total Bilirubin 0.7 (0.2-1.3) mg/dL AST 29 (14-36) U/L ALT 17 (9-52) U/L Alkaline Phosphatase 115 (38-126) U/L Total Protein 5.9 L (6.3-8.2) g/dL Albumin 2.3 L (3.5-5.0) g/dL
[2017-07-10 16:50] LABS: Appearance,BF Hazy; Color,BF Orange; Nucleated Cells, Body Fluid 0 /uL; RBC, Body Fluid 5360 /uL
--- NOTE | 2017-07-10 18:53 | P.PN ---
Progress Note - Text Progress Note Date: 07/10/17 Patient seen and evaluated. Patient reports chronic abdominal pain from tense ascites. Pain is unchanged in character or presentation from prior admissions. She has multiple medical co-morbidities. Case discussed with GI team as well. No surgical intervention for recurrent ascites. Agree with ID consultation with cultures sent of peritoneal fluid. Will follow as needed.
--- NOTE | 2017-07-10 18:59 | HP ---
HISTORY AND PHYSICAL CHIEF COMPLAINT: Abdominal pain and distention. HISTORY OF PRESENT ILLNESS: This is another admission for this 51-year-old female who has advanced cirrhosis related to hepatitis C. She also has CA of the breast. She comes in occasionally with abdominal pain and distention requiring paracentesis. REVIEW OF SYSTEMS: She has had no headaches, shortness of breath, chest pain, hemoptysis, hematemesis, melena, jaundice, renal disease, or failure, etc. PAST MEDICAL HISTORY: Past medical history, family history and personal and social histories are all otherwise unremarkable or unchanged. PHYSICAL EXAMINATION: Blood pressure is 110/64 with a pulse of 85, respirations of 35 and she is afebrile. In general, she appears to be chronically ill and emaciated. Skin was pale and dry. Lymph nodes not enlarged. Head, ears, eyes, nose, mouth, and throat were normal and the chest demonstrated breath sounds on both sides with occasional rales at the bases. Cardiac exam demonstrates sinus rhythm and the abdomen is profoundly distended, firm and tender. Bowel sounds are heard. Extremities are normal. Neurological is intact. IMPRESSION: 1. Intractable ascites. 2. Cirrhosis secondary to hepatitis C. 3. History of carcinoma of the breast. PLAN: 1. Bed rest. 2. Paracentesis. MMODL / IJN: [id number] /
[2017-07-11] MEDS: HYDROcodone/APAP 7.5-325MG 1 EACH TAB PO PRN ×4 (00:02→18:41)
[2017-07-11] MEDS: FUROSEMIDE 40 MG TAB PO SCH ×3 (00:06→21:58)
[2017-07-11] MEDS: SPIRONOLACTONE 25 MG TAB PO SCH ×3 (00:06→21:58)
[2017-07-11 01:26] LABS: Total Protein, Body Fluid 1000 mg/dL
[2017-07-11] MEDS: MORPHINE ORAL SOLN 10 MG/5 ML CUP PO PRN ×5 (05:28→23:58)
[2017-07-11] MEDS: SOFOSBUVIR PO SCH (08:25)
[2017-07-11] MEDS: VELPATASVIR PO SCH (08:25)
[2017-07-11] MEDS: MULTIVITAMINS, THERA 1 EACH TAB PO SCH (08:27)
[2017-07-11] MEDS ORDERED: VANCOMYCIN IV PER PHARMACY 1 EACH MISC MISCELLANE PRN (10:09)
[2017-07-11] MEDS ORDERED: SODIUM CHLORIDE 0.9% 250 ML IV ONE (10:43)
[2017-07-11] MEDS: SODIUM CHLORIDE 0.9% 1,000 ML IV SCH (11:14)
[2017-07-11] MEDS: VANCOMYCIN 1,250 MG in SODIUM CHLORIDE 0.9% 250 ML IVPB SCH ×2 (12:18→19:48)
--- NOTE | 2017-07-11 15:17 | P.PN ---
Subjective Progress Note Date: 07/11/17 The patient is a 51-year-old female with multiple medical comorbidities including liver disease and left breast cancer. She is very concerned about her breast cancer as she had reportedly seen Dr. Puente in conjunction with Dr. Ruvalcaba for treatment. She was redirected to [facility] and was lost to follow-up. She has completed a paracentesis. Her abdominal pain is stable. She is tolerating diet. She's pending evaluation by the infectious disease doctor. Her main concern includes treatment for breast cancer. Objective - Vital Signs Vital signs: Vital Signs Temp 98.2 F 07/11/17 08:00 Pulse 80 07/11/17 14:47 Resp 14 07/11/17 14:47 BP 97/68 07/11/17 14:08 Pulse Ox 97 07/11/17 08:00 Intake & Output 07/10/17 07/11/17 07/11/17 18:59 06:59 18:59 Intake Total 240 Balance 240 Weight 73.119 kg Intake: Oral 240 Other: Voiding Method Toilet # Voids 2 1 2 - Exam GENERAL: Cachectic female in no acute distress HEENT: No sclera icterus. Extraocular movements grossly intact. Moist buccal mucosa. Head is atraumatic, normocephalic. Hears conversational speech. No nasal drainage. Edentulous. NECK: Supple without lymphadenopathy. No JV distention. CHEST: Non-labored respirations and equal bilateral excursions. CARDIOVASCULAR: Regular rate and rhythm. Palpable 2+ radial pulses. ABDOMEN: Soft. Nondistended. No peritonitis. Mild tenderness. MUSCULOSKELETAL: No clubbing, cyanosis or edema. NEUROLOGIC: No focal or lateralizing signs. PSYCH: Appropriate affect. Alert and oriented to person, place and time. BREAST: Left breast nodule along the upper inner quadrant of 2 cm. No fixation to the chest wall. No palpable adenopathy along the neck or supraclavicular area. No large adenopathy along the left axilla SKIN: Dry skin. Warm to touch. - Labs CBC & Chem 7: 07/10/17 05:17 07/10/17 05:17 Labs: Microbiology - Last 24 Hours (Table) 07/10/17 14:00 Blood Culture Gram Stain - Preliminary Blood 07/10/17 14:03 Gram Stain - Preliminary Paracentesis Fluid Body Fluid Culture - Preliminary 07/10/17 14:00 Blood Culture - Final Blood 07/10/17 11:00 Anaerobic Culture - Preliminary Ascites Fluid Assessment and Plan (1) Breast cancer, left breast Current Visit: Yes Status: Acute Code(s): C50.912 - MALIGNANT NEOPLASM OF UNSPECIFIED SITE OF LEFT FEMALE BREAST SNOMED Code(s): 129857745 (2) Malignant cachexia Current Visit: Yes Status: Acute Code(s): R64 - CACHEXIA SNOMED Code(s): 041534308 (3) Abdominal pain Current Visit: Yes Status: Acute Code(s): R10.9 - UNSPECIFIED ABDOMINAL PAIN SNOMED Code(s): 04304456 (4) Ascites Current Visit: Yes Status: Acute Code(s): R18.8 - OTHER ASCITES SNOMED Code(s): 125645182 (5) Portal hypertension Current Visit: Yes Status: Acute Code(s): K76.6 - PORTAL HYPERTENSION SNOMED Code(s): 49462847 (6) Hepatitis C Current Visit: No Status: Chronic Code(s): B19.20 - UNSPECIFIED VIRAL HEPATITIS C WITHOUT HEPATIC COMA SNOMED Code(s): 11760108 Plan: 1. She has multiple medical problems including complicated liver history. 2. Paracentesis has been performed. Will await cultures. Further management pending infectious disease consultation for antibiotic management. 3. She has left breast cancer and had been lost to follow-up. Per patient request, oncology consultation. 4. Management of breast cancer described including follow-up with breast cancer specialist. 5. No acute surgical intervention at this time.
--- NOTE | 2017-07-11 16:15 | PN ---
PROGRESS NOTE CHIEF COMPLAINT: Cirrhosis and ascites. HISTORY OF PRESENT ILLNESS: This lady is still complaining of quite a bit of abdominal discomfort and the paracentesis fluid was bloody. She has had no fever and chills, nausea, vomiting, etc. However, she has a blood culture which has grown out gram-positive cocci in clusters. PHYSICAL EXAM: She is a chronically ill and very pale. Chest is clear. Cardiac exam is normal. The abdomen is much flatter than usual and she has generalized mild discomfort. Bowel sounds are not heard. IMPRESSION: 1. Gram positive septicemia, probably Staph. 2. Cirrhosis. 3. Hepatitis C. 4. Intractable ascites. 5. Carcinoma of breast. 6. Depression. PLAN: Start IV antibiotics and obtained Infectious Disease consult. MMODL / NESTORN: [id number] /
[2017-07-11 16:20] VITALS: RESP 16
--- NOTE | 2017-07-11 19:27 | P.CONS ---
History of Present Illness - Reason for Consult Consult date: 07/11/17 Breast cancer Requesting physician: Mark Estrada - Chief Complaint Abdominal pain and distension - History of Present Illness Ms Barakat is a pleasant 51 yo female, pt of Dr. Puente, who initially presented in 2011 for hemoptysis and hematochezia. Work up revealed esophageal varices due to portal hypertension from underlying cirrhosis from hepatitis C. In 2013 , she presented for further GI bleeding needing banding. Then in 2015, she presented for abdominal pain. CT abdomen revealed a small, cirrhotic appearing liver, with splenomegaly, and wall thickening of the distal stomach and duodenum. Gall bladder wall appeared thickened. US of the GB, revealed the same findings, but no stones. NM hepatobiliary scan was negative. Her pain gradually resolved spontaneously. At that time she was found to have bicytopenia, with WBC 3.1 and plt 99. Hgb was normal at 14.5. She was referred to Dr. Puente and work up was obtained. Cytopenias were felt to be due to hep C/liver disease and splenic sequestration, and observation was recommended at that time. She was then admitted in 07/2016 for abdominal pain and was found to have left breast mass on exam. Work up at that time revealed 5.6 x 3.3 x 3.5 cm solid lesion at 9 o clock on US. She had a core biopsy on 07/10/16, and was discharged. Biopsy came back positive for grade 3 invasive ductal carcinoma, ER -ve, CT weakly positive 5-10% and Her 2 1+ , essentially triple negative. PET scan was negative for evidence of metastases. She was started on neoadjuvant ddAC, and was only able to receive 3 cycles (last on 09/12/16), due to neutropenic fevers and prolonged cytopenia. She then developed overt decompensated liver failure. She proceeded on for surgical evaluation however was not deemed a surgical candidate due to her overall status. She was also not deemed a candidate for further chemotherapy. She has been observed since then and was last seen by Dr. Puente on 03/2017 at which time it was felt that her mass was stable and not enlarging. She comes in this admission for abdominal pain and distension due to ascites. We were called for her history of breast cancer. She does not feel that her breast mass is changing. No other new complaints. Review of Systems All systems: negative Constitutional: Reports as per HPI Past Medical History Past Medical History: Cancer, GERD/Reflux, GI Bleed, Hearing Disorder / Deafness , Hypertension, Liver Disease Additional Past Medical History / Comment(s): Hepatitis C, ascities, cirrhosis, pancytopenia, vertigo; "benign abd mass", states has had esophageal banding, lt breast cancer had chemo last on 09-12-16-did not tolerate-completed only 3 cycles- then it was stopped, lt ear hearing loss, multiple upper GI bleeds. History of Any Multi-Drug Resistant Organisms: None Reported Past Surgical History: Adenoidectomy, Tonsillectomy Additional Past Surgical History / Comment(s): Paracentesises, EGD, esophageal banding, rt chest mediport 08-06-16, l breast bx. Past Anesthesia/Blood Transfusion Reactions: No Reported Reaction Additional Past Anesthesia/Blood Transfusion Reaction / Comm: blood transfusions - no reaction Past Psychological History: Anxiety Additional Psychological History / Comment(s): Has a history of hepatitis C with esophageal variceal bleeds requiring banding several years ago. denies any drug use. No experience. No international travel. No animal exposures. pt's son lives with her.2 story home 1 front step. pt's bathroom and bedroom on 2nd floor.has a bsc at home. Smoking Status: Current every day smoker Past Alcohol Use History: None Reported Additional Past Alcohol Use History / Comment(s): pt started smoking at age 13 smoked 1/2 ppd but more recently stated only smoking 1 cig per day Pt states she has never been a drinker. Past Drug Use History: None Reported - Past Family History Mother Family Medical History: Cancer Additional Family Medical History / Comment(s): of lung ca at the age of 59yrs. She was a smoker. Father Family Medical History: Myocardial Infarction ([place]) Additional Family Medical History / Comment(s): from 2nd heart attack at the age of 59yrs. Medications and Allergies Home Medications Medication Instructions Recorded Confirmed Type Multivitamins, Thera [Multivitamin 1 tab PO DAILY 03/05/17 07/10/17 History (formulary)] Furosemide [Lasix] 40 mg PO BID #60 tablet 03/18/17 07/10/17 Rx Spironolactone [Aldactone] 50 mg PO BID #60 tab 03/18/17 07/10/17 Rx Sofosbuvir/Velpatasvir [Epclusa 1 tab PO DAILY 04/30/17 07/10/17 History 400 mg-100 mg Tablet] HYDROcodone/APAP 7.5-325MG [[place] 1 tab PO Q6H PRN 07/10/17 07/10/17 History 7.5-325] Allergies Allergy/AdvReac Type Severity Reaction Status Date / Time No Known Allergies Allergy Verified 07/10/17 06:33 Physical Exam Vitals: Vital Signs Temp Pulse Resp BP Pulse Ox 07/11/17 16:19 97.9 F 83 16 95/60 98 07/11/17 16:00 83 16 07/11/17 14:47 80 14 07/11/17 14:08 97/68 07/11/17 12:01 80 14 07/11/17 11:32 87/41 07/11/17 10:31 80/41 07/11/17 08:00 98.2 F 80 14 83/37 97 07/11/17 00:00 16 07/10/17 23:57 98.6 F 100 16 90/49 99 07/10/17 23:45 16 07/10/17 20:11 98 F 83 16 96/47 98 07/10/17 18:33 97.9 F 87 18 87/40 100 Intake and Output 07/11/17 07/11/17 07/11/17 06:59 14:59 22:59 Intake Total 240 Balance 240 Intake: Oral 240 Other: Voiding Method Toilet Toilet # Voids 1 2 2 Weight 73.119 kg General: In no acute distress. HEENT: EOMI. No conjunctival pallor or scleral icterus. Mucosa moist. Neck: Neck supple. Lymph: No cervical/supraclavicular LAD. Lungs: CTA-B without wheezing or rhonchi. Heart: RRR. No LE edema. Abdomen: Soft, nontender, distended with positive fluid shift and positive bowel sounds. MSK: 4/4 strength in all 4 extremities. Neuro: Alert and oriented 3. No obvious gross neurologic deficits. Skin: No jaundice or rash. Psych: Appropriate affect. Results CBC & Chem 7: 07/10/17 05:17 07/10/17 05:17 Labs: Microbiology - Last 24 Hours (Table) 07/10/17 14:00 Blood Culture Gram Stain - Preliminary Blood 07/10/17 14:03 Gram Stain - Preliminary Paracentesis Fluid Body Fluid Culture - Preliminary 07/10/17 14:00 Blood Culture - Final Blood 07/10/17 11:00 Anaerobic Culture - Preliminary Ascites Fluid Assessment and Plan Assessment: 1. Breast cancer, triple negative 2. Cirrhosis 3. Splenomegaly 4. Portal HTN 5. Bicytopenia, chronic, due to cirrhosis and splenomegaly 6. Hepatitis C Plan: Ms. Barakat is a pleasant 51 yo female with history of bicytopenia due to underlying cirrhosis/hep C with portal HTN, esophageal varices, and splenomegaly , as well as early stage breast cancer, triple negative, s/p 3 cycles of ddAC without further therapy due to inability to tolerate surgery/chemotherapy due to underlying comorbidities, here for abdominal pain from ascites. For her breast cancer, she will need to follow up with Dr. Puente for further management. She is currently not a candidate for chemotherapy due to underlying comorbidities. Will check CA 15-3 and 27-29 and she can follow up with Dr. Puente to discuss results and further options such as possible RT if lesion is growing. Discussed with pt and she is agreeable to the plan. All questions were answered.
--- NOTE | 2017-07-11 23:32 | P.CONS ---
History of Present Illness - Reason for Consult Consult date: 07/11/17 - Chief Complaint Abdominal pain - History of Present Illness 51-year-old female who has multiple medical troubles that includes her triple negative breast carcinoma and her chronic active hepatitis C with cirrhosis and chronic refractory ascites that has required multiple admissions and multiple paracentesis. She is being treated with Epculusa for her hepatitis C and its related she's been getting a good response. She over continues to have cirrhosis with her significant and refractory ascites that has required multiple paracentesis. She presents to Hospital she wasn't feeling well feeling very bloated and distended and increasing abdominal pain increasing difficulties with trying to eat and consequently she was admitted. Paracentesis been performed and no evidence of any significant leukocytes and the fluid. She has chronic thrombocytopenia which is not new but no evidence of a bleeding. But did have some difficulties of blood cultures were drawn and with a positive blood culture the infectious diseases consultation was requested. Review of Systems HEENT: Feels poorly. Denies sinus discomforts. No bleeding from the nasal cavity or ears. Oral cavity is noted per the HPI is very uncomfortable. She's having difficulty eating putting a numbing medication and her oral cavity. Lungs: Denies significant shortness of breath, cough, sputum production, or hemoptysis. Cardiovascular: Denies significant shortness of breath, chest pain, chest wall pain, orthopnea, dyspnea on exertion, syncope Gastrointestinal: As per the HPI massive ascites associated with nausea and emesis but no hematemesis as of late Musculoskeletal: denies significant myalgias or arthralgias. No new joint swelling. Denies new back pain. Skin: Denies new rash or lesions. No new ulcers or wounds are related.. Neuro: Denies headache or visual change. Denies any new onset weakness or difficulty with ambulation. Denies falls or seizures. Psychiatric:Denies anxiety or depression. Endocrine: Worsening fatigue and malaise and has ongoing weight loss thought to be due to her malignancy Past Medical History Past Medical History: Cancer, GERD/Reflux, GI Bleed, Hearing Disorder / Deafness , Hypertension, Liver Disease Additional Past Medical History / Comment(s): Hepatitis C, ascities, cirrhosis, pancytopenia, vertigo; "benign abd mass", states has had esophageal banding, lt breast cancer had chemo last on 09-12-16-did not tolerate-completed only 3 cycles- then it was stopped, lt ear hearing loss, multiple upper GI bleeds. History of Any Multi-Drug Resistant Organisms: None Reported Past Surgical History: Adenoidectomy, Tonsillectomy Additional Past Surgical History / Comment(s): Paracentesises, EGD, esophageal banding, rt chest mediport 08-06-16, l breast bx. Past Anesthesia/Blood Transfusion Reactions: No Reported Reaction Additional Past Anesthesia/Blood Transfusion Reaction / Comm: blood transfusions - no reaction Past Psychological History: Anxiety Additional Psychological History / Comment(s): Has a history of hepatitis C with esophageal variceal bleeds requiring banding several years ago. denies any drug use. No experience. No international travel. No animal exposures. pt's son lives with her.2 story home 1 front step. pt's bathroom and bedroom on 2nd floor.has a bsc at home. Smoking Status: Current every day smoker Past Alcohol Use History: None Reported Additional Past Alcohol Use History / Comment(s): pt started smoking at age 13 smoked 1/2 ppd but more recently stated only smoking 1 cig per day Pt states she has never been a drinker. Past Drug Use History: None Reported - Past Family History Mother Family Medical History: Cancer Additional Family Medical History / Comment(s): of lung ca at the age of 59yrs. She was a smoker. Father Family Medical History: Myocardial Infarction ([place]) Additional Family Medical History / Comment(s): from 2nd heart attack at the age of 59yrs. Medications and Allergies Home Medications and Allergies Comment(s): Current Medications Hydrocodone Bitart/Acetaminophen (Everly 7.5-325) 1 each PO Q6H PRN PRN Reason: Pain Last Admin: 07/11/17 18:41 Dose: 1 each Furosemide (Lasix) 40 mg PO BID RAFAEL Last Admin: 07/11/17 21:58 Dose: 40 mg Vancomycin HCl 1,250 mg/ (Sodium Chloride) 250 mls @ 125 mls/hr IVPB Q8H RAFAEL Last Admin: 07/11/17 19:48 Dose: 125 mls/hr Sodium Chloride (Saline 0.9%) 1,000 mls @ 80 mls/hr IV .[id number] [facility] Last Admin: 07/11/17 11:14 Dose: 80 mls/hr Morphine Sulfate (Morphine Oral Monica 2mg/Ml) 1 mg PO Q4HR PRN PRN Reason: Breakthrough Pain Last Admin: 07/11/17 19:48 Dose: 1 mg Multivitamins (Theragran) 1 each PO DAILY@1200 [facility] Last Admin: 07/11/17 08:27 Dose: 1 each Non-Formulary Medication (Sofosbuvir/Velpatasvir [Epclusa 400 Mg-100 Mg Tablet] ) 1 tab PO DAILY [facility] Last Admin: 07/11/17 08:25 Dose: Not Given Spironolactone (Aldactone) 50 mg PO BID [facility] Last Admin: 07/11/17 21:58 Dose: 50 mg Home Medications Medication Instructions Recorded Confirmed Type Multivitamins, Thera [Multivitamin 1 tab PO DAILY 03/05/17 07/10/17 History (formulary)] Furosemide [Lasix] 40 mg PO BID #60 tablet 03/18/17 07/10/17 Rx Spironolactone [Aldactone] 50 mg PO BID #60 tab 03/18/17 07/10/17 Rx Sofosbuvir/Velpatasvir [Epclusa 1 tab PO DAILY 04/30/17 07/10/17 History 400 mg-100 mg Tablet] HYDROcodone/APAP 7.5-325MG [Everly 1 tab PO Q6H PRN 07/10/17 07/10/17 History 7.5-325] Allergies Allergy/AdvReac Type Severity Reaction Status Date / Time No Known Allergies Allergy Verified 07/10/17 06:33 Physical Exam Vitals: Vital Signs Temp Pulse Resp BP Pulse Ox 07/11/17 21:56 103/51 07/11/17 20:59 98.4 F 92 16 94/65 98 07/11/17 16:19 97.9 F 83 16 95/60 98 07/11/17 16:00 83 16 07/11/17 14:47 80 14 07/11/17 14:08 97/68 07/11/17 12:01 80 14 07/11/17 11:32 87/41 07/11/17 10:31 80/41 07/11/17 08:00 98.2 F 80 14 83/37 97 07/11/17 00:00 16 07/10/17 23:57 98.6 F 100 16 90/49 99 07/10/17 23:45 16 Intake and Output 07/11/17 07/11/17 07/12/17 14:59 22:59 06:59 Intake Total 240 Balance 240 Intake: Oral 240 Other: Voiding Method Toilet Toilet # Voids 2 1 Cachectic 51-year-old woman who appears much older than her stated age HEENT: Anicteric conjunctiva are pink and moist nasal mucosa grossly intact without significant lesions, there is no thrush. Edentulous Neck: The neck is supple without significant lymphadenopathy or thyromegaly. Lungs: Symmetrical air entry with expiratory wheezing but no mikayla bronchial sounds no dullness or egophony Heart: Regular rate and rhythm with an audible S1-S2, no S3 no S4. There is no significant murmur click or rub, PMI was nondisplaced. Abdomen: Despite paracentesis continues to have extensive ascites with some generalized tenderness but no mikayla guarding or rebound. Organomegaly cannot be palpated Extremities: The upper extremities have excellent pulses they are symmetric, no significant petechiae or telangiectasia. No splinter hemorrhages were noted. Lower extremities with some generalized edema no open ulcerations are seen pulses diminished but palpable Neuro: Awake alert oriented to person place and time. There are no acute new gross focal sensory motor deficits. Results CBC & Chem 7: 07/10/17 05:17 07/10/17 05:17 Labs: Microbiology - Last 24 Hours (Table) 07/10/17 14:00 Blood Culture Gram Stain - Preliminary Blood Blood Culture - Preliminary Coagulase Negative Staph 07/10/17 14:03 Gram Stain - Preliminary Paracentesis Fluid Body Fluid Culture - Preliminary 07/10/17 14:00 Blood Culture - Final Blood Laboratory Results WBC 4.2 k/uL (3.8-10.6) 07/10/17 05:17 RBC 2.84 m/uL (3.80-5.40) L 07/10/17 05:17 Hgb 9.9 gm/dL (11.4-16.0) L D 07/10/17 05:17 Hct 29.7 % (34.0-46.0) L 07/10/17 05:17 MCV 104.5 fL (80.0-100.0) H 07/10/17 05:17 MCH 34.8 pg (25.0-35.0) 07/10/17 05:17 MCHC 33.3 g/dL (31.0-37.0) 07/10/17 05:17 RDW 14.6 % (11.5-15.5) 07/10/17 05:17 Plt Count 98 k/uL (150-450) L D 07/10/17 05:17 Neutrophils % (Manual) 52 % 07/10/17 05:17 Lymphocytes % (Manual) 31 % 07/10/17 05:17 Monocytes % (Manual) 12 % 07/10/17 05:17 Eosinophils % (Manual) 5 % 07/10/17 05:17 Neutrophils # (Manual) 2.18 k/uL (1.3-7.7) 07/10/17 05:17 Lymphocytes # (Manual) 1.30 k/uL (1.0-4.8) 07/10/17 05:17 Monocytes # (Manual) 0.50 k/uL (0-1.0) 07/10/17 05:17 Eosinophils # (Manual) 0.21 k/uL (0-0.7) 07/10/17 05:17 Nucleated RBCs 0 /100 WBC (0-0) 07/10/17 05:17 Manual Slide Review Performed 07/10/17 05:17 Polychromasia Present 07/10/17 05:17 Poikilocytosis Slight 07/10/17 05:17 Anisocytosis (manual) Present 07/10/17 05:17 Macrocytosis Moderate 07/10/17 05:17 PT 10.9 sec (9.0-12.0) 07/10/17 05:17 INR 1.1 (<1.2) 07/10/17 05:17 APTT 24.4 sec (22.0-30.0) 07/10/17 05:17 Sodium 135 mmol/L (137-145) L 07/10/17 05:17 Potassium 3.8 mmol/L (3.5-5.1) 07/10/17 05:17 Chloride 105 mmol/L (98-107) 07/10/17 05:17 Carbon Dioxide 22 mmol/L (22-30) 07/10/17 05:17 Anion Gap 8 mmol/L 07/10/17 05:17 BUN 20 mg/dL (7-17) H 07/10/17 05:17 Creatinine 0.60 mg/dL (0.52-1.04) 07/10/17 05:17 Est GFR (CKD-EPI)AfAm >90 (>60 ml/min/1.73 sqM) 07/10/17 05:17 Est GFR (CKD-EPI)NonAf >90 (>60 ml/min/1.73 sqM) 07/10/17 05:17 Glucose 109 mg/dL (74-99) H 07/10/17 05:17 Calcium 8.2 mg/dL (8.4-10.2) L 07/10/17 05:17 Total Bilirubin 0.7 mg/dL (0.2-1.3) 07/10/17 05:17 AST 29 U/L (14-36) 07/10/17 05:17 ALT 17 U/L (9-52) 07/10/17 05:17 Alkaline Phosphatase 115 U/L (38-126) 07/10/17 05:17 Ammonia 79 umol/L (<30) H 07/10/17 05:17 Total Protein 5.9 g/dL (6.3-8.2) L 07/10/17 05:17 Albumin 2.3 g/dL (3.5-5.0) L 07/10/17 05:17 Amylase 43 U/L (30-110) 07/10/17 05:17 Lipase 214 U/L (23-300) 07/10/17 05:17 Fluid Source Ascitic 07/10/17 11:00 Fluid Color [place] 07/10/17 11:00 Fluid Appearance Hazy 07/10/17 11:00 Fluid RBC 5360 /uL 07/10/17 11:00 Fluid Nucleated Cells 0 /uL 07/10/17 11:00 Microbiology 07/10/17 14:00 Blood Blood Culture Gram Stain - Preliminary 07/10/17 14:00 Blood Blood Culture - Preliminary Coagulase Negative Staph 07/10/17 14:03 Paracentesis Fluid Gram Stain - Preliminary 07/10/17 14:03 Paracentesis Fluid Body Fluid Culture - Preliminary 07/10/17 14:00 Blood Blood Culture - Final 07/10/17 11:00 Ascites Fluid Anaerobic Culture - Preliminary Assessment and Plan (1) Ascites Narrative/Plan: 51-year-old female who has a history of triple negative breast carcinoma who has received chemotherapy last summer but is a difficulties tolerating her chemotherapy and is no now been on this type of treatment. She' s also had radiation therapy in the past. She has chronic active hepatitis C and is treated with a directly active agent in extremities been having some improvement but has chronic refractory ascites and has ongoing paracentesis. This is occurred during this stay the for many liter paracentesis. She feels considerably better but rapidly re-accumulates her ascites fluid. He has noted she had evidence of a positive blood culture there which are however is not clear find that this is a coagulase-negative staph. Consequently would discontinue vancomycin therapy and switch to Rocephin. She was seen in the past and with her chronic ascites she would be a good candidate for chronic antimicrobial prophylaxis against spontaneous bacterial peritonitis.Rifaximin is a potential choice if hepatology agrees. Current Visit: Yes Status: Acute Code(s): R18.8 - OTHER ASCITES SNOMED Code(s): 706895493 (2) Breast cancer, left breast Current Visit: Yes Status: Acute Code(s): C50.912 - MALIGNANT NEOPLASM OF UNSPECIFIED SITE OF LEFT FEMALE BREAST SNOMED Code(s): 508554916 (3) Malignant cachexia Current Visit: Yes Status: Acute Code(s): R64 - CACHEXIA SNOMED Code(s): 597168705
[2017-07-11] MEDS: cefTRIAXone IN SWFI 1,000 MG/10 ML SYRINGE IVP SCH (23:54)
[2017-07-12] MEDS: HYDROcodone/APAP 7.5-325MG 1 EACH TAB PO PRN ×4 (01:18→23:23)
[2017-07-12] MEDS: MORPHINE ORAL SOLN 10 MG/5 ML CUP PO PRN ×5 (04:07→21:53)
[2017-07-12] MEDS: SODIUM CHLORIDE 0.9% 1,000 ML IV SCH ×2 (05:55→20:40)
[2017-07-12] MEDS: SPIRONOLACTONE 25 MG TAB PO SCH ×2 (08:28→21:05)
[2017-07-12] MEDS: FUROSEMIDE 40 MG TAB PO SCH ×2 (08:29→21:05)
[2017-07-12] MEDS: AMMONIUM LACTATE 12% CREAM 140 GM TUBE TOPICAL SCH ×2 (08:30→21:05)
[2017-07-12] MEDS: SOFOSBUVIR PO SCH (08:32)
[2017-07-12] MEDS: VELPATASVIR PO SCH (08:32)
--- NOTE | 2017-07-12 12:06 | P.PN ---
Subjective Progress Note Date: 07/12/17 The patient is a 51-year-old female with multiple medical comorbidities including liver disease and left breast cancer. "I don't want to talk about anything." Patient was seen by ID specialist including oncologist. She is tolerating diet. Objective - Vital Signs Vital signs: Vital Signs Temp 98.1 F 07/12/17 07:56 Pulse 88 07/12/17 08:00 Resp 16 07/12/17 08:00 BP 141/76 07/12/17 07:56 Pulse Ox 98 07/12/17 07:56 Intake & Output 07/11/17 07/12/17 07/12/17 18:59 06:59 18:59 Intake Total 240 240 Balance 240 240 Intake: Oral 240 240 Other: Voiding Method Toilet Toilet Toilet # Voids 2 1 3 - Exam GENERAL: Cachectic female in no acute distress HEENT: No sclera icterus. Extraocular movements grossly intact. Moist buccal mucosa. Head is atraumatic, normocephalic. Hears conversational speech. No nasal drainage. Edentulous. NECK: Supple without lymphadenopathy. No JV distention. CHEST: Non-labored respirations and equal bilateral excursions. CARDIOVASCULAR: Regular rate and rhythm. Palpable 2+ radial pulses. ABDOMEN: Soft. Nondistended. No peritonitis. MUSCULOSKELETAL: No clubbing, cyanosis or edema. NEUROLOGIC: No focal or lateralizing signs. PSYCH: Appropriate affect. Alert and oriented to person, place and time. BREAST: Left breast nodule along the upper inner quadrant of 2 cm. No fixation to the chest wall. No palpable adenopathy along the neck or supraclavicular area. No large adenopathy along the left axilla SKIN: Dry skin. Warm to touch. - Labs CBC & Chem 7: 07/10/17 05:17 07/10/17 05:17 Labs: Microbiology - Last 24 Hours (Table) 07/10/17 14:00 Blood Culture Gram Stain - Preliminary Blood Blood Culture - Preliminary Coagulase Negative Staph 07/10/17 14:03 Gram Stain - Preliminary Paracentesis Fluid Body Fluid Culture - Preliminary 07/10/17 14:00 Blood Culture - Final Blood Assessment and Plan (1) Breast cancer, left breast Current Visit: Yes Status: Acute Code(s): C50.912 - MALIGNANT NEOPLASM OF UNSPECIFIED SITE OF LEFT FEMALE BREAST SNOMED Code(s): 691025255 (2) Malignant cachexia Current Visit: Yes Status: Acute Code(s): R64 - CACHEXIA SNOMED Code(s): 114759144 (3) Abdominal pain Current Visit: Yes Status: Acute Code(s): R10.9 - UNSPECIFIED ABDOMINAL PAIN SNOMED Code(s): 47725223 (4) Ascites Current Visit: Yes Status: Acute Code(s): R18.8 - OTHER ASCITES SNOMED Code(s): 467322202 (5) Portal hypertension Current Visit: Yes Status: Acute Code(s): K76.6 - PORTAL HYPERTENSION SNOMED Code(s): 70402115 (6) Hepatitis C Current Visit: No Status: Chronic Code(s): B19.20 - UNSPECIFIED VIRAL HEPATITIS C WITHOUT HEPATIC COMA SNOMED Code(s): 49269764 Plan: 1. She has been seen by oncology regarding her options for her left breast cancer. She can resume her care as an outpatient. 2. No surgical intervention for recurrent ascites. 3. Infectious disease following. 4. Will sign off.
[2017-07-12] MEDS: MULTIVITAMINS, THERA 1 EACH TAB PO SCH (12:57)
[2017-07-12] MEDS: cefTRIAXone IN SWFI 1,000 MG/10 ML SYRINGE IVP SCH (21:04)
[2017-07-13] MEDS: ONDANSETRON 4 MG/2 ML VIAL IVP PRN ×3 (01:31→20:31)
[2017-07-13] MEDS: MORPHINE ORAL SOLN 10 MG/5 ML CUP PO PRN ×3 (03:15→18:53)
[2017-07-13] MEDS: SODIUM CHLORIDE 0.9% 1,000 ML IV SCH (05:54)
[2017-07-13 09:31] LABS: Basophils % (A) 0 %; Eosinophils % (A) 2 %; HCT 21.7 % (34.0-46.0); HGB 7.1 gm/dL (11.4-16.0); Lymphocytes # (A) 0.5 k/uL (1.0-4.8); Lymphocytes % (A) 16 %; MCH 34.8 pg (25.0-35.0); MCHC 32.8 g/dL (31.0-37.0); MCV 106.3 fL (80.0-100.0); Macrocytosis Moderate; Mean Platelet Volume 9.8; Monocytes # (A) 0.3 k/uL (0-1.0); Monocytes % (A) 10 %; Neutrophils # (A) 1.9 k/uL (1.3-7.7); Neutrophils % (A) 69 %; RBC 2.05 m/uL (3.80-5.40); RDW 14.3 % (11.5-15.5); WBC 2.8 k/uL (3.8-10.6)
[2017-07-13 09:32] LABS: Platelet Count 69 k/uL (150-450)
[2017-07-13 09:41] LABS: ALT 27 U/L (9-52); AST 21 U/L (14-36); Albumin 1.9 g/dL (3.5-5.0); Alkaline Phosphatase 75 U/L (38-126); Anion Gap 4 mmol/L; Blood Urea Nitrogen 20 mg/dL (7-17); Calcium 7.8 mg/dL (8.4-10.2); Carbon Dioxide 28 mmol/L (22-30); Chloride 104 mmol/L (98-107); Glucose 103 mg/dL (74-99); Potassium 3.5 mmol/L (3.5-5.1); Sodium 136 mmol/L (137-145); Total Bilirubin 0.4 mg/dL (0.2-1.3); Total Protein 4.6 g/dL (6.3-8.2)
[2017-07-13] MEDS: HYDROcodone/APAP 7.5-325MG 1 EACH TAB PO PRN ×3 (09:53→23:17)
[2017-07-13] MEDS: FUROSEMIDE 40 MG TAB PO SCH ×2 (10:08→20:42)
[2017-07-13] MEDS: VELPATASVIR PO SCH (10:08)
[2017-07-13] MEDS: SPIRONOLACTONE 25 MG TAB PO SCH ×2 (10:08→20:42)
[2017-07-13] MEDS: SOFOSBUVIR PO SCH (10:08)
[2017-07-13] MEDS: MULTIVITAMINS, THERA 1 EACH TAB PO SCH (12:16)
[2017-07-13] MEDS: AMMONIUM LACTATE 12% CREAM 140 GM TUBE TOPICAL SCH ×2 (12:16→20:34)
--- NOTE | 2017-07-13 14:07 | P.PN ---
Subjective Progress Note Date: 07/13/17 Principal diagnosis: Breast Cancer and Cirrhosis Patient seen in follow-up today, Hemoglobin down to 7.1, she complains of pain and discomfort. Objective - Vital Signs Vital signs: Vital Signs Temp 98.1 F 07/13/17 08:04 Pulse 87 07/13/17 08:04 Resp 16 07/13/17 08:04 BP 99/63 07/13/17 08:04 Pulse Ox 97 07/13/17 08:04 Intake & Output 07/12/17 07/13/17 07/13/17 18:59 06:59 18:59 Intake Total 240 Balance 240 Intake: Oral 240 Other: Voiding Method Toilet Toilet Toilet # Voids 3 1 - Constitutional General appearance: Present: no acute distress, thin - EENT Eyes: Present: edentulous, EOMI ENT: Present: NA/AT, other - Neck Details: Supple, Trachea Midline - Respiratory Respiratory: bilateral: diminished (Bilateral Bases) - Cardiovascular Rhythm: regular - Peripheral edema leg Peripheral Edema: bilateral: Trace - Gastrointestinal General gastrointestinal: Present: distended, soft, tenderness - Integumentary Integumentary: Present: pale - Neurologic Neurologic: Present: CNII-XII intact - Musculoskeletal Musculoskeletal: Present: generalized weakness - Psychiatric Psychiatric: Present: A&O x's 3, appropriate affect, intact judgment & insight - Labs CBC & Chem 7: 07/13/17 09:11 07/13/17 09:11 Labs: Abnormal Lab Results - Last 24 Hours (Table) 07/13/17 07/13/17 Range/Units 09:11 09:11 WBC 2.8 L (3.8-10.6) k/uL RBC 2.05 L (3.80-5.40) m/uL Hgb 7.1 L D (11.4-16.0) gm/dL Hct 21.7 L (34.0-46.0) % MCV 106.3 H (80.0-100.0) fL Plt Count 69 L (150-450) k/uL Lymphocytes # 0.5 L (1.0-4.8) k/uL Sodium 136 L (137-145) mmol/L BUN 20 H (7-17) mg/dL Glucose 103 H (74-99) mg/dL Calcium 7.8 L (8.4-10.2) mg/dL Total Protein 4.6 L (6.3-8.2) g/dL Albumin 1.9 L (3.5-5.0) g/dL Microbiology - Last 24 Hours (Table) 07/10/17 14:00 Blood Culture Gram Stain - Final Blood Blood Culture - Final Staphylococcus epidermidis 07/10/17 11:00 Anaerobic Culture - Preliminary Ascites Fluid 07/10/17 14:03 Gram Stain - Preliminary Paracentesis Fluid Body Fluid Culture - Preliminary Assessment and Plan (1) Ascites Current Visit: Yes Status: Acute Code(s): R18.8 - OTHER ASCITES SNOMED Code(s): 884154202 (2) Breast cancer, left breast Current Visit: Yes Status: Acute Code(s): C50.912 - MALIGNANT NEOPLASM OF UNSPECIFIED SITE OF LEFT FEMALE BREAST SNOMED Code(s): 731909189 (3) Cirrhosis Current Visit: No Status: Acute Code(s): K74.60 - UNSPECIFIED CIRRHOSIS OF LIVER SNOMED Code(s): 52481449 (4) Cirrhosis of liver Current Visit: No Status: Chronic Code(s): K74.60 - UNSPECIFIED CIRRHOSIS OF LIVER SNOMED Code(s): 17758468 (5) Hepatitis C Current Visit: No Status: Chronic Code(s): B19.20 - UNSPECIFIED VIRAL HEPATITIS C WITHOUT HEPATIC COMA SNOMED Code(s): 36489277 (6) Pancytopenia Current Visit: No Status: Chronic Priority: High Code(s): D61.818 - OTHER PANCYTOPENIA SNOMED Code(s): 866423599 Plan: . Assessment and Recommendations 1. Breast cancer, triple negative - Check Tumor markers (Ca 15-3 and Ca 2729)as patient has not been treated due to intolerance of chemotherapy because of her multiple other co-morbidities last treatment with chemotherapy in 2016. 2. Pancytopenia - Chronic secondary to Cirrhosis, Splenomegaly - Monitor daily - Check Iron and B12, Retic, Folate - Transfusion support Hgb less than 7, plat less than 10 (less than 50 if active bleedling) 3. Splenomegaly 4. Portal HTN 5. Bicytopenia, chronic, due to cirrhosis and splenomegaly 6. Hepatitis C 7. Cirrhosis Physicaian Attests: I have completed the full history and physical of this patient, discussed and agree with above dictation from Lori Araujo NP. Documented as a scribe.
--- NOTE | 2017-07-13 14:36 | PN ---
PROGRESS NOTE DATE OF SERVICE: 07/12/17 CHIEF COMPLAINT: Hepatitis C, cirrhosis. Breast carcinoma. HISTORY OF PRESENT ILLNESS: This lady seems to be doing well, but she was complaining bitterly of more and more pain. She wants more narcotic analgesic. She is already on morphine and Vicodin. PHYSICAL EXAM: She remains pale and chronically ill in appearance. Chest demonstrates good breath sounds both sides. Cardiac exam is normal. The abdomen is starting to redeveloped ascites and she has some mild generalized tenderness. She has not had a fever. IMPRESSION: 1. Gram positive Staph bacteremia. 2. Hepatitis C with cirrhosis and intractable ascites. 3. Carcinoma of the breast. PLAN: She continues on antibiotics and once she is cleared, she will be able to go home. Analgesic program will be kept the same. MMODL / IJN: [id number] /
[2017-07-13 16:14] LABS: Reticulocyte % 2.6 % (0.5-2.0)
[2017-07-13 18:27] LABS: Iron Saturation 16.08 (12.00-45.00); Protein, Total 4.8 g/dL (6.2-8.2)
[2017-07-13 18:34] LABS: Folate, Serum 5.4 ng/mL
[2017-07-13] MEDS: cefTRIAXone IN SWFI 1,000 MG/10 ML SYRINGE IVP SCH (20:33)
[2017-07-13 20:34] VITALS: BP 122/59; PULSE 91; TEMP 98
--- NOTE | 2017-07-13 23:00 | P.PN ---
Subjective Progress Note Date: 07/13/17 Principal diagnosis: Ascites 51-year-old female who has multiple medical troubles that includes her triple negative breast carcinoma and her chronic active hepatitis C with cirrhosis and chronic refractory ascites that has required multiple admissions and multiple paracentesis. She is being treated with Epculusa for her hepatitis C and its related she's been getting a good response. She over continues to have cirrhosis with her significant and refractory ascites that has required multiple paracentesis. She presents to Hospital she wasn't feeling well feeling very bloated and distended and increasing abdominal pain increasing difficulties with trying to eat and consequently she was admitted. Paracentesis been performed and no evidence of any significant leukocytes and the fluid. She has chronic thrombocytopenia which is not new but no evidence of a bleeding. But did have some difficulties of blood cultures were drawn and with a positive blood culture the infectious diseases consultation was requested. On 07/13/2017 the patient relates that she is feeling slightly better. She is having poor appetite who was able to eat some food that was not part of the general menu. She's had no severe nausea or emesis today. She is denying further fevers or chills. Continues to feel very weak. She had some improvement to her abdominal discomforts with the paracentesis and is wondering if this will be repeated before discharge. Objective - Vital Signs Vital signs: Vital Signs Temp 98.0 F 07/13/17 20:33 Pulse 91 07/13/17 20:33 Resp 16 07/13/17 20:33 BP 122/59 07/13/17 20:33 Pulse Ox 99 07/13/17 20:33 Intake & Output 07/13/17 07/13/17 07/14/17 06:59 18:59 06:59 Intake Total 140 Balance 140 Weight 79 kg Intake: Intake, IV Titration 140 Amount Sodium Chloride 0.9% 1, 140 000 ml @ 80 mls/hr IV . [id number] [facility] Rx#:[id number] Other: Voiding Method Toilet Toilet # Voids 1 1 - Exam Cachectic 51-year-old woman who appears much older than her stated age HEENT: Anicteric conjunctiva are pink and moist nasal mucosa grossly intact without significant lesions, there is no thrush. Edentulous Neck: The neck is supple without significant lymphadenopathy or thyromegaly. Lungs: Symmetrical air entry with expiratory wheezing but no mikayla bronchial sounds no dullness or egophony Heart: Regular rate and rhythm with an audible S1-S2, no S3 no S4. There is no significant murmur click or rub, PMI was nondisplaced. Abdomen: Despite paracentesis continues to have extensive ascites with some generalized tenderness but no mikayla guarding or rebound. Organomegaly cannot be palpated Extremities: The upper extremities have excellent pulses they are symmetric, no significant petechiae or telangiectasia. No splinter hemorrhages were noted. Lower extremities with some generalized edema no open ulcerations are seen pulses diminished but palpable Neuro: Awake alert oriented to person place and time. There are no acute new gross focal sensory motor deficits. - Labs CBC & Chem 7: 07/13/17 09:11 07/13/17 09:11 Labs: Abnormal Lab Results - Last 24 Hours (Table) 07/13/17 07/13/17 07/13/17 Range/Units 09:11 09:11 15:04 WBC 2.8 L (3.8-10.6) k/uL RBC 2.05 L (3.80-5.40) m/uL Hgb 7.1 L D (11.4-16.0) gm/dL Hct 21.7 L (34.0-46.0) % MCV 106.3 H (80.0-100.0) fL Plt Count 69 L (150-450) k/uL Lymphocytes # 0.5 L (1.0-4.8) k/uL Retic Count 2.6 H (0.5-2.0) % Sodium 136 L (137-145) mmol/L BUN 20 H (7-17) mg/dL Glucose 103 H (74-99) mg/dL Calcium 7.8 L (8.4-10.2) mg/dL Total Protein 4.6 L (6.3-8.2) g/dL Albumin 1.9 L (3.5-5.0) g/dL Microbiology - Last 24 Hours (Table) 07/10/17 14:03 Gram Stain - Preliminary Paracentesis Fluid Body Fluid Culture - Preliminary 07/10/17 14:00 Blood Culture Gram Stain - Final Blood Blood Culture - Final Staphylococcus epidermidis Laboratory Results WBC 2.8 k/uL (3.8-10.6) L 07/13/17 09:11 RBC 2.05 m/uL (3.80-5.40) L 07/13/17 09:11 Hgb 7.1 gm/dL (11.4-16.0) L D 07/13/17 09:11 Hct 21.7 % (34.0-46.0) L 07/13/17 09:11 MCV 106.3 fL (80.0-100.0) H 07/13/17 09:11 MCH 34.8 pg (25.0-35.0) 07/13/17 09:11 MCHC 32.8 g/dL (31.0-37.0) 07/13/17 09:11 RDW 14.3 % (11.5-15.5) 07/13/17 09:11 Plt Count 69 k/uL (150-450) L 07/13/17 09:11 Neutrophils % 69 % 07/13/17 09:11 Neutrophils % (Manual) 52 % 07/10/17 05:17 Lymphocytes % 16 % 07/13/17 09:11 Lymphocytes % (Manual) 31 % 07/10/17 05:17 Monocytes % 10 % 07/13/17 09:11 Monocytes % (Manual) 12 % 07/10/17 05:17 Eosinophils % 2 % 07/13/17 09:11 Eosinophils % (Manual) 5 % 07/10/17 05:17 Basophils % 0 % 07/13/17 09:11 Neutrophils # 1.9 k/uL (1.3-7.7) 07/13/17 09:11 Neutrophils # (Manual) 2.18 k/uL (1.3-7.7) 07/10/17 05:17 Lymphocytes # 0.5 k/uL (1.0-4.8) L 07/13/17 09:11 Lymphocytes # (Manual) 1.30 k/uL (1.0-4.8) 07/10/17 05:17 Monocytes # 0.3 k/uL (0-1.0) 07/13/17 09:11 Monocytes # (Manual) 0.50 k/uL (0-1.0) 07/10/17 05:17 Eosinophils # 0.0 k/uL (0-0.7) 07/13/17 09:11 Eosinophils # (Manual) 0.21 k/uL (0-0.7) 07/10/17 05:17 Basophils # 0.0 k/uL (0-0.2) 07/13/17 09:11 Nucleated RBCs 0 /100 WBC (0-0) 07/10/17 05:17 Manual Slide Review Performed 07/10/17 05:17 Polychromasia Present 07/10/17 05:17 Poikilocytosis Slight 07/10/17 05:17 Anisocytosis (manual) Present 07/10/17 05:17 Macrocytosis Moderate 07/13/17 09:11 Retic Count 2.6 % (0.5-2.0) H 07/13/17 15:04 PT 10.9 sec (9.0-12.0) 07/10/17 05:17 INR 1.1 (<1.2) 07/10/17 05:17 APTT 24.4 sec (22.0-30.0) 07/10/17 05:17 Sodium 136 mmol/L (137-145) L 07/13/17 09:11 Potassium 3.5 mmol/L (3.5-5.1) 07/13/17 09:11 Chloride 104 mmol/L (98-107) 07/13/17 09:11 Carbon Dioxide 28 mmol/L (22-30) 07/13/17 09:11 Anion Gap 4 mmol/L 07/13/17 09:11 BUN 20 mg/dL (7-17) H 07/13/17 09:11 Creatinine 0.72 mg/dL (0.52-1.04) 07/13/17 09:11 Est GFR (CKD-EPI)AfAm >90 (>60 ml/min/1.73 sqM) 07/13/17 09:11 Est GFR (CKD-EPI)NonAf >90 (>60 ml/min/1.73 sqM) 07/13/17 09:11 Glucose 103 mg/dL (74-99) H 07/13/17 09:11 Calcium 7.8 mg/dL (8.4-10.2) L 07/13/17 09:11 Total Bilirubin 0.4 mg/dL (0.2-1.3) 07/13/17 09:11 AST 21 U/L (14-36) 07/13/17 09:11 ALT 27 U/L (9-52) 07/13/17 09:11 Alkaline Phosphatase 75 U/L (38-126) 07/13/17 09:11 Ammonia 79 umol/L (<30) H 07/10/17 05:17 Total Protein 4.6 g/dL (6.3-8.2) L 07/13/17 09:11 Albumin 1.9 g/dL (3.5-5.0) L 07/13/17 09:11 Amylase 43 U/L (30-110) 07/10/17 05:17 Lipase 214 U/L (23-300) 07/10/17 05:17 CA 15-3 Antigen 4.6 U/mL (0.0-32.3) 07/13/17 09:11 CA 27-29 11.0 U/mL (0.0-38.5) 07/13/17 09:11 Fluid Source Ascitic 07/10/17 11:00 Fluid Color [place] 07/10/17 11:00 Fluid Appearance Hazy 07/10/17 11:00 Fluid RBC 5360 /uL 07/10/17 11:00 Fluid Nucleated Cells 0 /uL 07/10/17 11:00 Body Fluid Protein Source Ascites 07/10/17 11:00 Fluid Total Protein 1000 mg/dL 07/10/17 11:00 Microbiology 07/10/17 14:03 Paracentesis Fluid Gram Stain - Preliminary 07/10/17 14:03 Paracentesis Fluid Body Fluid Culture - Preliminary 07/10/17 14:00 Blood Blood Culture Gram Stain - Final 07/10/17 14:00 Blood Blood Culture - Final Staphylococcus epidermidis 07/10/17 11:00 Ascites Fluid Anaerobic Culture - Preliminary 07/10/17 14:00 Blood Blood Culture - Final Assessment and Plan (1) Ascites Narrative/Plan: 51-year-old female who has a history of triple negative breast carcinoma who has received chemotherapy last summer but is a difficulties tolerating her chemotherapy and is no now been on this type of treatment. She' s also had radiation therapy in the past. She has chronic active hepatitis C and is treated with a directly active agent in extremities been having some improvement but has chronic refractory ascites and has ongoing paracentesis. This is occurred during this stay the for many liter paracentesis. She feels considerably better but rapidly re-accumulates her ascites fluid. He has noted she had evidence of a positive blood culture there which are however is not clear find that this is a coagulase-negative staph. Consequently would discontinue vancomycin therapy and switch to Rocephin. She was seen in the past and with her chronic ascites she would be a good candidate for chronic antimicrobial prophylaxis against spontaneous bacterial peritonitis.Rifaximin is a potential choice if hepatology agrees. 07/13/2017 reveals the patient is showing some improvement. Blood culture has a coagulase-negative staph and she will require no further intravenous antibiotic therapy for this isolated blood culture. He has noted though given her significant ascites may benefit from chronic Rifaximin therapy. Current Visit: Yes Status: Acute Code(s): R18.8 - OTHER ASCITES SNOMED Code(s): 122004845 (2) Breast cancer, left breast Current Visit: Yes Status: Acute Code(s): C50.912 - MALIGNANT NEOPLASM OF UNSPECIFIED SITE OF LEFT FEMALE BREAST SNOMED Code(s): 705908040 (3) Malignant cachexia Current Visit: Yes Status: Acute Code(s): R64 - CACHEXIA SNOMED Code(s): 457703803
[2017-07-14] MEDS: MORPHINE ORAL SOLN 10 MG/5 ML CUP PO PRN (02:24)
[2017-07-14] MEDS: SODIUM CHLORIDE 0.9% 1,000 ML IV SCH (02:25)
[2017-07-14 14:57] LABS: Albumin 2.19 g/dL (3.80-4.90); Gamma Globulin 1.38 g/dL (0.70-1.50)
--- NOTE | 2017-07-14 18:28 | DS ---
DISCHARGE SUMMARY CHIEF COMPLAINT: Abdominal pain and ascites secondary to cirrhosis and hepatitis C. HISTORY OF PRESENT ILLNESS AND PHYSICAL EXAMINATION: Details of this lady's history and physical can be found in the initial workup. COURSE IN THE HOSPITAL: After admission she was placed on bedrest, started on intravenous fluids and seen by Interventional Radiology. A large quantity of ascitic fluid was taken off. Postoperatively she continued to have significant abdominal pain and wound up with a positive blood culture. This was felt to be possibly a skin contaminant, but she was seen by Infectious Disease and started on antibiotics. She remained afebrile and did fairly well except for constantly wanting more narcotics, even though she was on morphine and Vicodin. She suddenly signed herself out AGAINST MEDICAL ADVICE in the middle night on July 14. FINAL DIAGNOSES: 1. Intractable ascites. 2. Chronic hepatitis C with cirrhosis. 3. Carcinoma of the breast. OPERATIONS: Paracentesis. CONSULTATIONS: 1. Interventional Radiology. 2. Infectious Disease. MMODL / IJN: [id number] /
--- NOTE | 2017-07-17 17:06 | CDI ---
Last Revision, March 2017 Documentation Clarification Form Date: 07/17/17 From: Kathryn Boris Jana Galeana, Grade [employer] Teacher between 8:30 am & 5 pm Kali Admit Date: 07/11/2017 10:15:00 AM Patient Name: Lori Barakat Visit Number: [id number] Discharge Date: 07/14/17 ATTENTION: The Clinical Documentation Specialists (CDI) and [facility] Coding Staff appreciate your assistance in clarifying documentation. Please respond to the clarification below the line at the bottom and electronically sign. The CDI & [facility] Coding staff will review the response and follow-up if needed. Please note: Queries are made part of the Legal Health Record. If you have any questions, please contact the author of this message via ITS. Dr. Mark Estrada Patient with malignant cachexia. She had breast ca, cirrhois of the liver w ascites, portal HTN. Underwent paracentesis. Albumin:2.3 to 1.9 Albumin (PEP): 2.19 Total Protein:5.9, 4.6 Total Protein (PEP): 4.8 Current BMI: 25.7 In your professional opinion, can you please clarify if these findings signify one of the following conditions? Mild Protein Malnutrition Mild Protein-Calorie Malnutrition Moderate Protein Malnutrition Moderate Protein-Calorie Malnutrition Severe Protein Malnutrition Severe Protein-Calorie Malnutrition Malnutrition Other condition, please specify Unable to determine Please continue to document in your progress notes and discharge summary in order to capture severity of illness and risk of mortality. Include clinical findings that support your diagnosis. MTDD
--- NOTE | 2017-07-18 10:53 | MISC ---
MISCELLANOUS REPORT This has to do with nutrition too. Severe protein calorie malnutrition. MMODL / IJN: [id number] /
--- NOTE | 2017-07-27 12:02 | MISC ---
MISCELLANOUS REPORT Hepatitis C is chronic. MMODL / IJN: [id number] /
== END 2017-07-14 04:03 | disposition left against medical advice (07) | DRG 441 ==
LOC: EC 04:34 → 4MS4W 05:00 → 3OBS 17:55 → OBSVTOIN 07-11 10:15 → 5MS5E 07-11 12:34
PROVIDERS: ADMIT Family Medicine; ATTEND Family Medicine
PROC: 0W9G3ZZ Drainage of Peritoneal Cavity, Percutaneous Approach (ICD-10-PCS; principal; 2017-07-10)
DX: K71.51 Toxic liver disease with chronic active hepatitis with ascites (principal); E43 Unspecified severe protein-calorie malnutrition; D61.818 Other pancytopenia; I85.10 Secondary esophageal varices without bleeding; R64 Cachexia; K76.6 Portal hypertension; F11.20 Opioid dependence, uncomplicated; R16.1 Splenomegaly, not elsewhere classified; K72.00 Acute and subacute hepatic failure without coma; C50.812 Malignant neoplasm of overlapping sites of left female breast; K74.60 Unspecified cirrhosis of liver; G89.4 Chronic pain syndrome; B18.2 Chronic viral hepatitis C; K21.9 Gastro-esophageal reflux disease without esophagitis; H91.92 Unspecified hearing loss, left ear; F41.9 Anxiety disorder, unspecified; F32.9 Major depressive disorder, single episode, unspecified; I10 Essential (primary) hypertension; Z68.25 Body mass index [BMI] 25.0-25.9, adult; F17.210 Nicotine dependence, cigarettes, uncomplicated; F10.10 Alcohol abuse, uncomplicated; Z79.899 Other long term (current) drug therapy; Z17.1 Estrogen receptor negative status [ER-]; Z92.3 Personal history of irradiation; Z92.21 Personal history of antineoplastic chemotherapy; Z82.49 Family history of ischemic heart disease and other diseases of the circulatory system; Z80.1 Family history of malignant neoplasm of trachea, bronchus and lung
CPT/HCPCS: 36415; 49083; 80053; 82140; 82150; 82607; 82728; 82746; 83540; 83550; 83690; 84157; 84165; 85025; 85045; 85610; 85730; 86300; 87040; 87070; 87075; 87077; 87186; 87205; 88108; 88305; 89050; 96361; 96374; 96375; 99285

== ENCOUNTER 2017-07-14 15:50 | Inpatient (IN) | payer MEDICARE, OTHER ==
[2017-07-14] MEDS ORDERED: MORPHINE SULFATE 4MG/4ML SYRG IV STA (20:24)
[2017-07-14] MEDS ORDERED: PANTOPRAZOLE 40 MG/10 ML VIAL IVP STA (20:24)
--- NOTE | 2017-07-14 20:28 | ED ---
General Adult HPI - General Chief complaint: Abdominal Pain Stated complaint: Stomach pain Time Seen by Provider: 07/14/17 20:15 Source: patient, RN notes reviewed Mode of arrival: ambulatory Limitations: no limitations - History of Present Illness Initial comments: Patient is a pleasant 51-year-old female presenting to the emergency department with abdominal pain and generalized pain. Patient states she left the hospital yesterday because she had to do so. Patient did have paresthesias done. Patient states her abdomen is still larger than normal. Patient has had decreased appetite. Patient complains of generalized achiness and pain. Patient does have a history of breast cancer however was unable to tolerate chemotherapy. Patient also has a history of hepatitis C and cirrhosis. Patient is a poor historian and limits history. - Related Data Home Medications Medication Instructions Recorded Confirmed Multivitamins, Thera [Multivitamin 1 tab PO DAILY 03/05/17 07/14/17 (formulary)] Sofosbuvir/Velpatasvir [Epclusa 1 tab PO DAILY 04/30/17 07/14/17 400 mg-100 mg Tablet] HYDROcodone/APAP 7.5-325MG [[place] 1 tab PO Q6H PRN 07/10/17 07/14/17 7.5-325] Previous Rx's Medication Instructions Recorded Furosemide [Lasix] 40 mg PO BID #60 tablet 03/18/17 Spironolactone [Aldactone] 50 mg PO BID #60 tab 03/18/17 Allergies Allergy/AdvReac Type Severity Reaction Status Date / Time No Known Allergies Allergy Verified 07/14/17 20:23 Review of Systems ROS Statement: Those systems with pertinent positive or pertinent negative responses have been documented in the HPI. ROS Other: All systems not noted in ROS Statement are negative. Constitutional: Denies: fever Eyes: Denies: eye pain ENT: Denies: ear pain Respiratory: Denies: cough Cardiovascular: Denies: chest pain Endocrine: Reports: fatigue Gastrointestinal: Reports: abdominal pain, nausea Genitourinary: Denies: dysuria Musculoskeletal: Denies: back pain Skin: Denies: rash Neurological: Reports: weakness Past Medical History Past Medical History: Cancer, GERD/Reflux, GI Bleed, Hearing Disorder / Deafness , Hypertension, Liver Disease Additional Past Medical History / Comment(s): Hepatitis C, ascities, cirrhosis, pancytopenia, vertigo; "benign abd mass", states has had esophageal banding, lt breast cancer had chemo last on 09-12-16-did not tolerate-completed only 3 cycles- then it was stopped, lt ear hearing loss, multiple upper GI bleeds. History of Any Multi-Drug Resistant Organisms: None Reported Past Surgical History: Adenoidectomy, Tonsillectomy Additional Past Surgical History / Comment(s): Paracentesises, EGD, esophageal banding, rt chest mediport 08-06-16, l breast bx. Past Anesthesia/Blood Transfusion Reactions: No Reported Reaction Additional Past Anesthesia/Blood Transfusion Reaction / Comment(s): blood transfusions- no reaction Past Psychological History: Anxiety Smoking Status: Current every day smoker Past Alcohol Use History: None Reported Past Drug Use History: None Reported - Past Family History Mother Family Medical History: Cancer Additional Family Medical History / Comment(s): of lung ca at the age of 59yrs. She was a smoker. Father Family Medical History: Myocardial Infarction ([place]) Additional Family Medical History / Comment(s): from 2nd heart attack at the age of 59yrs. General Exam Limitations: no limitations General appearance: alert, in no apparent distress Head exam: Present: atraumatic Eye exam: Present: normal appearance, PERRL ENT exam: Present: normal oropharynx Neck exam: Present: normal inspection Respiratory exam: Present: normal lung sounds bilaterally Cardiovascular Exam: Present: regular rate, normal rhythm Expanded Peripheral pulses: 2+: Posterior Tibialis (R), Posterior Tibialis (L) GI/Abdominal exam: Present: distended, tenderness (Mild diffuse tenderness). Absent: guarding, rigid, pulsatile mass Extremities exam: Present: pedal edema. Absent: calf tenderness Neurological exam: Present: alert. Absent: motor sensory deficit Psychiatric exam: Present: normal affect, normal mood Skin exam: Present: normal color Course Vital Signs 07/14/17 16:09 Temperature 98.1 F Pulse Rate 101 H Respiratory 20 Rate Blood Pressure 112/57 O2 Sat by Pulse 96 Oximetry Medical Decision Making - Medical Decision Making Case was discussed in detail with Dr. Estrada who is familiar with this patient. He will admit his patient with no consults at this time. No need for computed tomography scan at this time. There was discussion had regarding possibility of hospice referral. Disposition Clinical Impression: Abdominal pain Disposition: ADMITTED IP TO THIS HOSP Referrals: Mark Estrada MD [Primary Care Provider] - 1-2 days Decision Time: 20:39
[2017-07-14] MEDS ORDERED: NALOXONE 0.4 MG/ML 1 ML VIAL IV PRN (20:39)
[2017-07-14] MEDS ORDERED: LORazepam 2 MG/ML INJ IV PRN (20:39)
[2017-07-14] MEDS: SODIUM CHLORIDE 0.9% 1,000 ML IV SCH (21:16)
[2017-07-14 21:39] LABS: Appearance,Urine Clear (Clear); Bilirubin,Urine 1+ (Negative); Blood,Urine Negative (Negative); Color,Urine Yellow; Glucose,Urine (UA) Negative (Negative); Ketones,Urine Negative (Negative); Leukocyte Esterase,Urine Trace (Negative); Mucus,Urine Many /hpf; Nitrite,Urine Negative (Negative); Protein,Urine 1+ (Negative); RBC,Urine 1 /hpf (0-5); Specific Gravity,Urine 1.028 (1.001-1.035); Squamous Epithelial Cell,Urine 4 /hpf (0-4); WBC,Urine 6 /hpf (0-5)
[2017-07-14 21:42] LABS: Amphetamine Screen,Urine Not Detected (NotDetected); Barbiturate Screen,Urine Not Detected (NotDetected); Benzodiazepines Screen,Urine Not Detected (NotDetected); Cocaine Screen,Urine Not Detected (NotDetected); Methadone Screen, Urine Not Detected (NotDetected); Opiate Screen,Urine Detected (NotDetected); Oxycodone Screen, Urine Not Detected (NotDetected); Phencyclidine Screen,Urine Not Detected (NotDetected); Tricyclic Antidepressant,Urine Not Detected (NotDetected); Urn Cannabinoid Scrn Not Detected (NotDetected)
[2017-07-14 21:47] LABS: Basophils % (A) 1 %; Eosinophils # (A) 0.1 k/uL (0-0.7); Eosinophils % (A) 3 %; Lymphocytes # (A) 0.5 k/uL (1.0-4.8); Lymphocytes % (A) 15 %; MCH 35.5 pg (25.0-35.0); MCHC 33.2 g/dL (31.0-37.0); MCV 106.7 fL (80.0-100.0); Macrocytosis Moderate; Mean Platelet Volume 8.5; Monocytes # (A) 0.2 k/uL (0-1.0); Monocytes % (A) 7 %; Neutrophils # (A) 2.2 k/uL (1.3-7.7); Neutrophils % (A) 71 %; RBC 2.43 m/uL (3.80-5.40); RDW 14.4 % (11.5-15.5); WBC 3.1 k/uL (3.8-10.6)
[2017-07-14 21:48] LABS: Platelet Count 99 k/uL (150-450)
[2017-07-14 21:49] LABS: HGB 8.6 gm/dL (11.4-16.0)
[2017-07-14 21:51] LABS: INR 1.2 (<1.2); Partial Thromboplastin Time 25.7 sec (22.0-30.0); Prothrombin Time 11.1 sec (9.0-12.0)
[2017-07-14 21:58] LABS: ALT 19 U/L (9-52); AST 29 U/L (14-36); Albumin 2.4 g/dL (3.5-5.0); Alcohol <10 mg/dL; Alkaline Phosphatase 95 U/L (38-126); Amylase 33 U/L (30-110); Anion Gap 8 mmol/L; Blood Urea Nitrogen 19 mg/dL (7-17); Calcium 8.5 mg/dL (8.4-10.2); Carbon Dioxide 26 mmol/L (22-30); Chloride 106 mmol/L (98-107); Glucose 104 mg/dL (74-99); Lipase 105 U/L (23-300); Potassium 3.5 mmol/L (3.5-5.1); Sodium 140 mmol/L (137-145); Total Bilirubin 0.8 mg/dL (0.2-1.3); Total Protein 5.9 g/dL (6.3-8.2)
--- NOTE | 2017-07-14 22:07 | XR ---
EXAMINATION TYPE: XR KUB DATE OF EXAM: 07/14/2017 COMPARISON: 06/05/2017 HISTORY: Abnormal pain TECHNIQUE: There is 2 views FINDINGS: There is increased density over the abdomen consistent with significant ascites. I see no s ign of free air. Fecal pattern is normal. Lung bases appear clear of consolidation. IMPRESSION: Massive ascites similar to last exam. No free air.
[2017-07-15] MEDS: MORPHINE SULFATE 4MG/4ML SYRG IV PRN ×5 (00:16→16:37)
[2017-07-15] MEDS: HYDROcodone/APAP 7.5-325MG 1 EACH TAB PO PRN ×3 (00:17→11:41)
[2017-07-15] MEDS: PANTOPRAZOLE 40 MG/10 ML VIAL IV SCH (09:05)
[2017-07-15] MEDS: ONDANSETRON 4 MG/2 ML VIAL IVP PRN ×2 (12:51→19:10)
--- NOTE | 2017-07-15 13:02 | PN ---
PROGRESS NOTE DATE OF SERVICE: 07/15/2017 CHIEF COMPLAINT: Intractable abdominal pain and ascites. HISTORY OF PRESENT ILLNESS: This lady is still complaining of increasing pain. Etiology for this is not clear unless it is her cirrhosis. She is having no vomiting, chills, fever, etc. PHYSICAL EXAM: Breath sounds are heard. Cardiac exam is normal and the abdomen is generally tender throughout. IMPRESSION: 1. Increasing abdominal pain. 2. Cirrhosis. 3. Intractable ascites. 4. Recent history of peritonitis. 5. Carcinoma of the breast. PLAN: 1. Bed rest. 2. IV fluids and continue with analgesics. 3. We may obtain further consultation if the pain continues to get worse. MMODL / IJN: [id number] /
--- NOTE | 2017-07-15 13:02 | HP ---
HISTORY AND PHYSICAL CHIEF COMPLAINT: Abdominal pain. HISTORY OF PRESENT ILLNESS: This lady is back in. She signed herself out AGAINST MEDICAL ADVICE, went home and came back to the emergency room after she developed increasing abdominal pain. She is readmitted. REVIEW OF SYSTEMS: She has had no neurologic changes, confusion, cough, hemoptysis, nausea, vomiting, hematemesis, melena, hematochezia, jaundice, etc. Past medical history, family history and personal and social history are all otherwise unremarkable and noncontributory and unchanged. PHYSICAL EXAMINATION: Blood pressure is 90/55 with a pulse of 62, respirations of 30 and she is afebrile. In general, she appeared to be chronically ill, dehydrated and uncomfortable. Head, ears, eyes, nose, mouth, and throat were normal except for dry mucous membranes. Neck is supple. Chest demonstrated breath sounds on both sides and the cardiac exam demonstrates sinus rhythm. The abdomen is starting to refill with ascitic fluid and it was generally tender throughout. Extremities were normal except for poor muscle bulk. Neurologically, she is intact. IMPRESSION: 1. Intractable abdominal pain. 2. Cirrhosis. 3. Hepatitis C. 4. Intractable ascites. 5. Carcinoma of the breast. 6. Depression. PLAN: 1. Bed rest. 2. IV fluids. 3. Step-up analgesic program. 4. Consider an improved discharge plan. KAUSHIK / KAREEM: [id number] /
[2017-07-15] MEDS: HYDROcodone/APAP 10-325MG 1 EACH TAB PO PRN ×2 (16:52→22:25)
[2017-07-15] MEDS: MORPHINE ORAL SOLN 10 MG/5 ML CUP PO PRN ×2 (20:31→23:35)
[2017-07-15] MEDS: SODIUM CHLORIDE 0.9% 1,000 ML IV SCH (23:33)
[2017-07-16] MEDS: MORPHINE ORAL SOLN 10 MG/5 ML CUP PO PRN ×5 (03:50→17:35)
[2017-07-16] MEDS: HYDROcodone/APAP 10-325MG 1 EACH TAB PO PRN ×3 (06:47→18:20)
[2017-07-16] MEDS: PANTOPRAZOLE 40 MG/10 ML VIAL IV SCH (07:42)
[2017-07-16] MEDS: ONDANSETRON 4 MG/2 ML VIAL IVP PRN (10:29)
[2017-07-16] MEDS ORDERED: RX INFO: IV CONTRAST WAS GIVEN 1 EACH MISC MISCELLANE PRN (12:53)
--- NOTE | 2017-07-16 13:15 | P.CN ---
Psychiatric Consult - . Consult date: 07/16/17 Consult:: 07/16/17 13:00 Identification: Patient is a 51-year-old female who was recently admitted to the hospital and left AMA on July 14 and returned on July 15 due to abdominal pain. Reason for Consult: Depression History of Present Illness: Patient's chart was reviewed, the patient was seen and interviewed in her room no family members were present. Patient states that she is not feeling depressed and didn't know why a psychiatric consult was requested. Patient states that she left the hospital because she missed her home and returned the next day because her abdominal pain had increased. Patient reports that she is not feeling depressed and has no suicidal ideation. She states she lives with her son at home, she reports no difficulties at home. Patient reported no prior psychiatric treatment and states that she has never attempted suicide and has never been treated for depression. Patient states that she is eating well in the hospital, she reports her pain is better controlled and her only complaint is that she is itching all over. Patient does not endorse any current or prior history of psychotic symptoms, manic symptoms and no complaints of anxiety symptoms. Patient states that she is being treated for cirrhosis secondary to hepatitis C and she states that she is unaware of how she contracted the disease. She states that she never had any blood transfusions, no IV drug use. Patient states that she was also treated for breast cancer but they stopped her chemotherapy after 3 treatments due to her liver disease. Past Psychiatric History: Patient reports no prior inpatient or outpatient psychiatric treatment and reports no prior treatment with any psychotropic medication. Past Medical/Surgical History: Patient has history of breast cancer treated with 3 rounds of chemotherapy, hepatitis C with cirrhosis of the liver with ascites, history of GI bleeds, history of hearing los Social History: Patient states that she lived with her partner who in January of last year and currently is living with her son. She states that her oldest child has a different father from her other 4 children one of whom as an infant from SIDS. She states that her son assists her with ADLs, she states he is eating well here. Reports her parents are both Substance Use History: Patient states that she never used any IV drugs or drug use history currently or in the past and no current or prior alcohol use history. Mental status: Appearance/Attitude: Patient is sitting up in bed, constantly scratching her forearms, rubbing a blanket across her back due to feeling itchy all over, she makes intermittent eye contact and is cooperative Behavior: Patient did not display any psychomotor agitation or retardation, as described above she reported feeling itchy and was scratching throughout the interview. Speech/Language: Patient's speech was spontaneous, normal volume and rhythm and she was coherent Thought Process: Patient was goal-directed there is no evidence of loose association or flight of ideas Thought Content: Patient denied auditory or visual hallucinations no delusions or paranoid ideation were elicited. Patient states that she wanted to leave and left the day prior to this admission because she missed her home and then her abdominal pain increased and she returned to the emergency room. She states that she lives with her son who assists with the activities of daily living at home. Patient reports her appetite here is good. Patient reports her pain is better controlled. She reported that she was not feeling hopeless, helpless and states that she is not feeling depressed. Suicidal/Homicidal Ideation: Patient denies any current suicidal or homicidal ideation, and has no history of prior suicide attempts Sensorium/Cognition: Patient is alert and oriented to person, place, month and year and her recent and remote memory were not formally tested Mood/Affect: Patient's mood was pleasant and her affect was appropriate Insight/Judgment: Patient's insight and judgment are fair Assessment: Patient questioned why I was coming to speak with her, was unaware of a consultation for depression and states that she has never felt depressed and is not currently feeling that way. She reports no prior psychiatric treatment history and states that she has never made any suicide attempts and is currently not feeling suicidal. Patient states that she left the hospital the other day because she missed her home and then returned due to increasing abdominal pain. Patient states she is unaware of how she contracted hepatitis C which she reports is caused her cirrhosis. Diagnosis: No psychiatric diagnosis Plan: Patient does not endorse any symptoms of tracy, depression, psychosis or anxiety at this time and states that she has never been treated for any psychiatric after illness in the past. Patient reports that she is eating well here and that her pain is better controlled now as well as that she lives with her son who assists in her care. Patient states that she is not feeling depressed, no current suicidal ideation and no prior history of suicidal thoughts or attempts. Patient had no concerns and voiced no difficulties at this time to me. In reviewing the chart patient has refused home health care, referral to rehab and when I spoke with her patient declined that she needed any assistance at home. At this time I would not begin any psychotropic medication as there no evidence of any depressive, psychotic, anxiety symptoms. I will sign off the case if there are any questions or concerns please don't hesitate to contact me. 07/16/17 13:05 07/16/17 13:13
[2017-07-16] MEDS ORDERED: SPIRONOLACTONE 25 MG TAB PO SCH (14:00)
[2017-07-16] MEDS ORDERED: FUROSEMIDE 40 MG TAB PO SCH (14:00)
--- NOTE | 2017-07-16 14:08 | P.CONS ---
History of Present Illness - Reason for Consult Consult date: 07/16/17 Abdominal pain ascites Requesting physician: Mark Estrada - History of Present Illness 51-year-old female well-known to the GI service multiple admissions with underlying liver disease cirrhosis hepatitis C, esophageal varices, GI bleed, EtOH abuse, portal hypertension recurrent ascites requiring large-volume paracentesis, breast carcinoma, anxiety and depression. Patient presented yesterday with abdominal distention abdominal discomfort and underwent therapeutic paracentesis with 12 L removed on 07/10/2017. Denies fever chills hematemesis hematochezia melena. White count 3.1. Hemoglobin 8.6. Platelet 99. INR 1.2. Sodium 140. BUN 19. Creatinine 0.7. Unsure if patient is taking her home diuretics. Review of Systems Constitutional: Denies fever, chills, sweats, weight gain, or loss. HEENT: Negative for migraines, blurred vision or loss, earaches, drainage, tinnitus, oral mucosal lesions, dysphagia, or odynophagia. CARDIAC: Negative for chest pain, arrhythmias, or palpitation. RESPIRATORY: Negative for shortness of breath, hemoptysis, cough, or sputum production. GI: See HPI for pertinent findings. : Negative for hematuria, urgency, frequency, polyuria, or dysuria. GYNc: Left breast carcinoma. Negative vaginal discharge. MUSCULOSKELETAL: Negative for muscle aches, swelling, arthritis, and arthralgias. NEUROLOGIC: Negative for stroke or TIA. ENDOCRINE: Negative for thyroid problems. SKIN: Negative for rash or itching. PSYCHIATRIC: Negative history for depression. Anxiety. Past Medical History Past Medical History: Cancer, GERD/Reflux, GI Bleed, Hearing Disorder / Deafness , Hypertension, Liver Disease Additional Past Medical History / Comment(s): Hepatitis C, ascities, cirrhosis, pancytopenia, vertigo; "benign abd mass", states has had esophageal banding, lt breast cancer had chemo last on 09-12-16-did not tolerate-completed only 3 cycles- then it was stopped, lt ear hearing loss, multiple upper GI bleeds. History of Any Multi-Drug Resistant Organisms: None Reported Past Surgical History: Adenoidectomy, Tonsillectomy Additional Past Surgical History / Comment(s): Paracentesises, EGD, esophageal banding, rt chest mediport 08-06-16, l breast bx. Past Anesthesia/Blood Transfusion Reactions: No Reported Reaction Additional Past Anesthesia/Blood Transfusion Reaction / Comm: blood transfusions - no reaction Past Psychological History: Anxiety Additional Psychological History / Comment(s): Has a history of hepatitis C with esophageal variceal bleeds requiring banding several years ago. denies any drug use. No experience. No international travel. No animal exposures. pt's son lives with her.2 story home 1 front step. pt's bathroom and bedroom on 2nd floor.has a bsc at home. Smoking Status: Light tobacco smoker Past Alcohol Use History: None Reported Additional Past Alcohol Use History / Comment(s): pt started smoking at age 13 smoked 1/2 ppd but more recently stated only smoking 1 cig per day Pt states she has never been a drinker. Past Drug Use History: None Reported - Past Family History Mother Family Medical History: Cancer Additional Family Medical History / Comment(s): of lung ca at the age of 59yrs. She was a smoker. Father Family Medical History: Myocardial Infarction ([place]) Additional Family Medical History / Comment(s): from 2nd heart attack at the age of 59yrs. Medications and Allergies Home Medications Medication Instructions Recorded Confirmed Type Multivitamins, Thera [Multivitamin 1 tab PO DAILY 03/05/17 07/14/17 History (formulary)] Furosemide [Lasix] 40 mg PO BID #60 tablet 03/18/17 07/14/17 Rx Spironolactone [Aldactone] 50 mg PO BID #60 tab 03/18/17 07/14/17 Rx Sofosbuvir/Velpatasvir [Epclusa 1 tab PO DAILY 04/30/17 07/14/17 History 400 mg-100 mg Tablet] Allergies Allergy/AdvReac Type Severity Reaction Status Date / Time No Known Allergies Allergy Verified 07/14/17 20:23 Physical Exam Vitals: Vital Signs Temp Pulse Resp BP Pulse Ox 07/16/17 07:45 18 07/16/17 07:39 97.0 F L 84 18 114/58 93 L 07/16/17 00:58 98.7 F 89 15 101/53 99 07/16/17 00:30 89 15 07/15/17 19:00 98.4 F 83 16 91/57 98 07/15/17 14:45 98 F 86 16 111/67 99 Intake and Output 04/11/18 04/12/18 04/12/18 22:59 06:59 14:59 Intake Total 220 Balance 220 Intake: Oral 220 Other: Voiding Method Toilet Toilet Toilet # Voids 2 1 General appearance: The patient is alert, oriented, in no acute distress. HET: Head is normocephalic and atraumatic. Pupils are equal and reactive. Oropharynx is clear without lesions. Neck: Supple without lymphadenopathy. Trachea midline. Heart: S1 S2. Regular rate and rhythm. Lungs: No crackles or wheezes are heard. Abdomen: Soft, distended with moderate to large ascites mildly tender secondary to distention with bowel sounds. No peritoneal signs. No palpable organomegaly or masses. Extremities: Normal skin color and turgor. No cyanosis, rash, ulceration, clubbing, or edema. Radial and pedal pulses are 2/4 bilaterally. Neurological: No focal deficits. Strength and sensation are grossly intact. Results CBC & Chem 7: 07/14/17 21:19 07/14/17 21:19 Assessment and Plan (1) Ascites of liver Narrative/Plan: 51-year-old female admitted with increased abdominal pain secondary to abdominal distention recurrent ascites. Current Visit: No Status: Acute Code(s): R18.8 - OTHER ASCITES SNOMED Code (s): 878226873 (2) Cirrhosis Current Visit: No Status: Acute Code(s): K74.60 - UNSPECIFIED CIRRHOSIS OF LIVER SNOMED Code(s): 90792002 (3) Hepatitis C Current Visit: No Status: Acute Code(s): B19.20 - UNSPECIFIED VIRAL HEPATITIS C WITHOUT HEPATIC COMA SNOMED Code(s): 72748106 (4) Portal hypertension Current Visit: No Status: Acute Code(s): K76.6 - PORTAL HYPERTENSION SNOMED Code(s): 98120475 Plan: 1. Ultrasound-guided paracentesis. 2. Lasix 40 mg daily Aldactone 100 mg daily. 3. Low-salt diet. Thank you for this kind referral and the opportunity to participate in the care of your patient. This consultation was discussed with Dr. Joseph. The impression and plan of care have been directed as dictated.
[2017-07-16 14:24] VITALS: TEMP 97.9
[2017-07-16 16:09] VITALS: BP 94/53; PULSE 89; RESP 16
--- NOTE | 2017-07-16 17:27 | NM ---
EXAMINATION TYPE: NM bone scan whole body DATE OF EXAM: 07/16/2017 COMPARISON: 12/07/2010 HISTORY: Breast cancer staging Delayed whole-body scanning was performed following the injection of 21.6 mCi Tc 99m MDP. Images acq uired 3 hours post injection. FINDINGS: There is focal increased uptake at the lateral aspect of the left ankle. This is consistent with trau ma. The remainder of the tracer distribution is fairly normal. IMPRESSION: Increased uptake at the left ankle consistent with arthritic disease or healing fracture that is a ch susana compared to old bone scan. No evidence of metastatic disease.
--- NOTE | 2017-07-16 17:37 | P.CONS ---
History of Present Illness - Reason for Consult Consult date: 07/16/17 Hx: Breast Cancer Requesting physician: Mark Estrada - Chief Complaint ABdominal Pain - History of Present Illness Ms Baraakt is a pleasant 51 yo female, pt of Dr. Puente, who initially presented in 2011 for hemoptysis and hematochezia. Work up revealed esophageal varices due to portal hypertension from underlying cirrhosis from hepatitis C. In 2013 , she presented for further GI bleeding needing banding. Then in 2015, she presented for abdominal pain. CT abdomen revealed a small, cirrhotic appearing liver, with splenomegaly, and wall thickening of the distal stomach and duodenum. Gall bladder wall appeared thickened. US of the GB, revealed the same findings, but no stones. NM hepatobiliary scan was negative. Her pain gradually resolved spontaneously. At that time she was found to have bicytopenia, with WBC 3.1 and plt 99. Hgb was normal at 14.5. She was referred to Dr. Puente and work up was obtained. Cytopenias were felt to be due to hep C/liver disease and splenic sequestration, and observation was recommended at that time. She was then admitted in 07/2016 for abdominal pain and was found to have left breast mass on exam. Work up at that time revealed 5.6 x 3.3 x 3.5 cm solid lesion at 9 o clock on US. She had a core biopsy on 07/10/16, and was discharged. Biopsy came back positive for grade 3 invasive ductal carcinoma, ER -ve, [place] weakly positive 5-10% and Her 2 1+ , essentially triple negative. PET scan was negative for evidence of metastases. She was started on neoadjuvant ddAC, and was only able to receive 3 cycles (last on 09/12/16), due to neutropenic fevers and prolonged cytopenia. She then developed overt decompensated liver failure. She proceeded on for surgical evaluation however was not deemed a surgical candidate due to her overall status. She was also not deemed a candidate for further chemotherapy. She has been observed since then and was last seen by Dr. Puente on 03/2017 at which time it was felt that her mass was stable and not enlarging. She comes in this admission for abdominal pain and distension due to ascites. We were called for her history of breast cancer. She does not feel that her breast mass is changing. She is concerned that since she only received 3 cycles of chemo and no surgery or radiation she still has cancer. Her recent tumor markers did not show elevation and on examination the area of visible and palpable breast mass on right is not evident. She was due for restaging PET in March but because of transportation issues was unable to remain adherent with this appointment. Review of Systems A 14 point review of systems assessed and completed and all negative except HPI. Past Medical History Past Medical History: Cancer, GERD/Reflux, GI Bleed, Hearing Disorder / Deafness , Hypertension, Liver Disease Additional Past Medical History / Comment(s): Hepatitis C, ascities, cirrhosis, pancytopenia, vertigo; "benign abd mass", states has had esophageal banding, lt breast cancer had chemo last on 09-12-16-did not tolerate-completed only 3 cycles- then it was stopped, lt ear hearing loss, multiple upper GI bleeds. History of Any Multi-Drug Resistant Organisms: None Reported Past Surgical History: Adenoidectomy, Tonsillectomy Additional Past Surgical History / Comment(s): Paracentesises, EGD, esophageal banding, rt chest mediport 08-06-16, l breast bx. Past Anesthesia/Blood Transfusion Reactions: No Reported Reaction Additional Past Anesthesia/Blood Transfusion Reaction / Comm: blood transfusions - no reaction Past Psychological History: Anxiety Additional Psychological History / Comment(s): Has a history of hepatitis C with esophageal variceal bleeds requiring banding several years ago. denies any drug use. No experience. No international travel. No animal exposures. pt's son lives with her.2 story home 1 front step. pt's bathroom and bedroom on 2nd floor.has a bsc at home. Smoking Status: Light tobacco smoker Past Alcohol Use History: None Reported Additional Past Alcohol Use History / Comment(s): pt started smoking at age 13 smoked 1/2 ppd but more recently stated only smoking 1 cig per day Pt states she has never been a drinker. Past Drug Use History: None Reported - Past Family History Mother Family Medical History: Cancer Additional Family Medical History / Comment(s): of lung ca at the age of 59yrs. She was a smoker. Father Family Medical History: Myocardial Infarction ([place]) Additional Family Medical History / Comment(s): from 2nd heart attack at the age of 59yrs. Medications and Allergies Home Medications Medication Instructions Recorded Confirmed Type Multivitamins, Thera [Multivitamin 1 tab PO DAILY 03/05/17 07/14/17 History (formulary)] Furosemide [Lasix] 40 mg PO BID #60 tablet 03/18/17 07/14/17 Rx Spironolactone [Aldactone] 50 mg PO BID #60 tab 03/18/17 07/14/17 Rx Sofosbuvir/Velpatasvir [Epclusa 1 tab PO DAILY 04/30/17 07/14/17 History 400 mg-100 mg Tablet] Allergies Allergy/AdvReac Type Severity Reaction Status Date / Time No Known Allergies Allergy Verified 07/14/17 20:23 Physical Exam Vitals: Vital Signs Temp Pulse Resp BP Pulse Ox 07/16/17 07:45 18 07/16/17 07:39 97.0 F L 84 18 114/58 93 L 07/16/17 00:58 98.7 F 89 15 101/53 99 07/16/17 00:30 89 15 07/15/17 19:00 98.4 F 83 16 91/57 98 07/15/17 14:45 98 F 86 16 111/67 99 07/15/17 13:04 73 97/65 100 Intake and Output 07/15/17 07/16/17 07/16/17 22:59 06:59 14:59 Other: Voiding Method Toilet Toilet Toilet # Voids 2 1 - Constitutional General appearance: cooperative, no acute distress, thin - EENT Eyes: edentulous, PERRLA, poor dentition ENT: hard of hearing, NA/AT, normal oropharynx - Neck Supple, Trachea Midline Neck: normal ROM - Respiratory Respiratory: bilateral: diminished (Lower Lobes) - Cardiovascular Rhythm: regular Heart sounds: normal: S1, S2 leg Peripheral Edema: bilateral: 1+ - Gastrointestinal General gastrointestinal: distended, hepatomegaly, soft, tenderness - Integumentary Integumentary: pale - Neurologic No focal Defects Neurologic: CNII-XII intact - Musculoskeletal Musculoskeletal: gait normal, generalized weakness, strength equal bilaterally - Psychiatric Psychiatric: A&O x's 3, appropriate affect, intact judgment & insight Results CBC & Chem 7: 07/14/17 21:19 07/14/17 21:19 Assessment and Plan (1) Pancytopenia Current Visit: Yes Status: Acute Code(s): D61.818 - OTHER PANCYTOPENIA SNOMED Code(s): 525450427 (2) Ascites of liver Current Visit: No Status: Acute Code(s): R18.8 - OTHER ASCITES SNOMED Code (s): 976806725 (3) Breast cancer Current Visit: No Status: Acute Code(s): C50.919 - MALIGNANT NEOPLASM OF UNSP SITE OF UNSPECIFIED FEMALE BREAST SNOMED Code(s): 528048398 (4) Cirrhosis of liver Current Visit: No Status: Chronic Code(s): K74.60 - UNSPECIFIED CIRRHOSIS OF LIVER SNOMED Code(s): 08091559 (5) Hepatitis C Current Visit: No Status: Chronic Code(s): B19.20 - UNSPECIFIED VIRAL HEPATITIS C WITHOUT HEPATIC COMA SNOMED Code(s): 30653593 Plan: Assessment and Plan 1. Breast cancer, triple negative - Unable to complete treatment secondary to liver disease - Restaging CT scans Chest, Abdomen, Pelvis and Bone Scan prior to Discharge please - FOllow-up in office after discharge 2. Cirrhosis - GI Following 3. Pancytopenia - Secondary to underlying poor liver function and chronic liver disease - Monitor CBC 4. Portal HTN 5. Abdominal pain and Ascites 6. Hepatitis C 7. Splenomegaly Ms. Barakat is a pleasant 51 yo female with history of bicytopenia due to underlying cirrhosis/hep C with portal HTN, esophageal varices, and splenomegaly , as well as early stage breast cancer, triple negative, s/p 3 cycles of ddAC without further therapy due to inability to tolerate surgery/chemotherapy due to underlying comorbidities, here for abdominal pain from ascites. Physician Attest: I have completed the full history and physical of this patient and discussed and agree with dictation by Lori Araujo NP. Documented as a scribe. Time with Patient: Greater than 30
[2017-07-16] MEDS: IOPAMIDOL-300 CONTRAST 30 ML VIAL (ORAL USE) PO PRN ×2 (17:44→18:39)
--- NOTE | 2017-07-16 19:37 | US ---
Therapeutic paracentesis. DATE OF EXAM: 07/16/2017 CLINICAL HISTORY: Ascites The procedure was discussed with the patient. The risks, complications, benefits, and alternatives we re discussed and any questions were answered. Informed consent was obtained. The patient was placed s upine on the ultrasound table and prepped and draped in the usual sterile fashion. All elements of maximal barrier technique were utilized. Under ultrasound guidance, access into the right lower quadrant was obtained, via the paracentesis catheter system and direct ultrasound guidanc e. Approximately 9.4 liters of straw-colored fluid was removed. The patient was stable throughout the pr ocedure and remained stable upon discharge from Department of Radiology. IMPRESSION: Successful therapeutic paracentesis under ultrasound guidance.
--- NOTE | 2017-07-16 20:20 | DS ---
DISCHARGE SUMMARY CHIEF COMPLAINT: Abdominal pain. Cirrhosis with ascites. HISTORY OF PRESENT ILLNESS: This lady is doing fairly well and she is comfortable on the 10 mg of Vicodin. She can probably be discharged on that and she is agreeable with that. FINAL DIAGNOSES: 1. Cirrhosis. 2. Intractable ascites. 3. Hepatitis C. 4. Carcinoma of the breast. OPERATIONS: None. CONSULTATIONS: Gastroenterology. She is improved. MMODL / IJN: [id number] /
--- NOTE | 2017-07-16 20:43 | CT ---
EXAMINATION TYPE: CT ChestAbdPelvis w con DATE OF EXAM: 07/16/2017 COMPARISON: 01/11/2017 HISTORY: Restaging for breast CA CT DLP: 650.4 mGycm Automated exposure control for dose reduction was used. CONTRAST: CT scan of the chest, abdomen and pelvis is performed with Oral Contrast and with IV Contrast, patien t injected with 100 mL of Isovue 300. FINDINGS: There is pulmonary emphysema. There is no evidence of a pulmonary mass. There is no mediastinal adeno armen. Heart size is normal. There is no pericardial effusion. There is apparent bilateral mastectomy . There is moderate ascites fluid in the abdomen. Liver is relatively small and consistent with cirrhos is. Spleen is enlarged and measures 14 cm in length. There is no evidence of pancreatic mass. Bile du cts are not dilated. I see no evidence of a bowel obstruction. Bladder distends smoothly. There is no evidence of pelvic m ass. I see no intestinal wall thickening. There is no retroperitoneal adenopathy. There is no adrenal mass. Kidneys show satisfactory contrast opacification. There is no hydronephrosi s. There is subcutaneous edema around the abdomen. IMPRESSION: There is splenomegaly that is increased compared to last exam. There are changes in the l iver consistent with cirrhosis. Liver appears larger than last exam. There is massive ascites that is improved slightly compared to last exam. No evidence of metastatic disease in the chest. Emphysema. There is subcutaneous edema around the abdomen that is worse than last exam.
--- NOTE | 2017-07-20 17:58 | CDI ---
Last Revision, March 2017 Documentation Clarification Form Date: 07/20/17 From: Sapna Morillo Phone: If you have a question regarding this query, please contact Jana Galeana at [phone] between 8am and 5pm Admit Date: 07/14/2017 8:39:00 PM Patient Name: Lori Barakat Visit Number: [id number] Discharge Date: 07/16/17 ATTENTION: The Clinical Documentation Specialists (CDI) and [facility] Coding Staff appreciate your assistance in clarifying documentation. Please respond to the clarification below the line at the bottom and electronically sign. The CDI & [facility] Coding staff will review the response and follow-up if needed. Please note: Queries are made part of the Legal Health Record. If you have any questions, please contact the author of this message via ITS. Dr. Mark Estrada Hepatitis C is documented in the H&P, ED note, both consult notes and in the discharge summary. Patient history/risk factors: Patient has a history of cirrhosis, esophageal varices, portal hypertension and splenomegaly Clinical Indicators: cirrhosis Consults: Hepatitis C In your professional opinion, can you please clarify the acuity of the Hepatitis C? Acute Chronic Other, please specify Unable to determine MTDD
--- NOTE | 2017-07-23 12:03 | MISC ---
MISCELLANOUS REPORT Acuity of her hepatitis C is chronic. MMODL / IJN: [id number] /
--- NOTE | 2017-07-27 08:38 | CDI ---
Last Revision, March 2017 Documentation Clarification Form Date: 07/27/17 From: Sapna Morillo Phone: If you have a question regarding this query, please contact Jana Galeana at [phone] between 8am and 5pm Admit Date: 07/14/2017 8:39:00 PM Patient Name: Lori Barakat Visit Number: [id number] Discharge Date: 07/16/17 ATTENTION: The Clinical Documentation Specialists (CDI) and [facility] Coding Staff appreciate your assistance in clarifying documentation. Please respond to the clarification below the line at the bottom and electronically sign. The CDI & [facility] Coding staff will review the response and follow-up if needed. Please note: Queries are made part of the Legal Health Record. If you have any questions, please contact the author of this message via ITS. Dr. Mark Estrada Hepatitis C is documented in the H&P, ED note, both consult notes and in the discharge summary. Patient history/risk factors: Patient has a history of cirrhosis, esophageal varices, portal hypertension and splenomegaly Clinical Indicators: cirrhosis Consults: Hepatitis C In your professional opinion, can you please clarify the acuity of the Hepatitis C? Acute Chronic Other, please specify Unable to determine MTDD
--- NOTE | 2017-07-29 09:36 | CDI ---
Last Revision, March 2017 Documentation Clarification Form Date: 07/29/17 From: Sapna Morillo Phone: If you have a question regarding this query, please contact Jana Galeana at [phone] between 8am and 5pm. Admit Date: 07/14/2017 8:39:00 PM Patient Name: Lori Barakat Visit Number: [id number] Discharge Date: 07/16/17 ATTENTION: The Clinical Documentation Specialists (CDI) and [facility] Coding Staff appreciate your assistance in clarifying documentation. Please respond to the clarification below the line at the bottom and electronically sign. The CDI & [facility] Coding staff will review the response and follow-up if needed. Please note: Queries are made part of the Legal Health Record. If you have any questions, please contact the author of this message via ITS. Dr. Mark Estrada Thank you for signing your query. Please document a response before signing this query. Hepatitis C is documented in the H&P, ED note, both consult notes and in the discharge summary. Patient history/risk factors: Patient has a history of cirrhosis, esophageal varices, portal hypertension and splenomegaly Clinical Indicators: cirrhosis Consults: Hepatitis C In your professional opinion, can you please clarify the acuity of the Hepatitis C? Acute Chronic Other, please specify Unable to determine MTDD
--- NOTE | 2017-07-29 09:42 | CDI ---
Last Revision, March 2017 Documentation Clarification Form Date: 07/29/17 From: Sapna Morillo Phone: If you have a question regarding this query, please contact Jana Galeana at [phone] between 8am and 5pm Admit Date: 07/02/2017 2:09:00 PM Patient Name: Delfina Hernandez Visit Number: [id number] Discharge Date: 07/16/17 ATTENTION: The Clinical Documentation Specialists (CDI) and [facility] Coding Staff appreciate your assistance in clarifying documentation. Please respond to the clarification below the line at the bottom and electronically sign. The CDI & [facility] Coding staff will review the response and follow-up if needed. Please note: Queries are made part of the Legal Health Record. If you have any questions, please contact the author of this message via ITS. Dr. Kris Botello Thank you for signing the last query. Please document a response before signing this query. CHF is documented in the past medical history of the ED note and in Dr. Estrada' s 07/04 progress note. History/Risk Factors:. Patient has a history of hypertension, coronary artery disease and mitral valve prolapse. VS/Pulse OX: T. 98.0, P. 78, R. 18, BP 150/83, Pulse Ox, 98% on room air Echocardiogram Results: overall left ventricular systolic function is normal with an EF between 55 - 60% Chest X Ray: Chronic changes without acute process seen. Treatment: Lasix 40 mg PO In your professional opinion, can you please clarify the type of CHF if known? Systolic Heart Failure: Diastolic Heart Failure: Systolic & Diastolic Heart Failure: Unable to Determine Other, please specify MTDD
== END 2017-07-16 20:37 | disposition home health service (06) | DRG 433 ==
LOC: EC 15:50 → 3SUR 20:39
PROVIDERS: ADMIT Family Medicine; ATTEND Family Medicine
PROC: 0W9G3ZZ Drainage of Peritoneal Cavity, Percutaneous Approach (ICD-10-PCS; principal; 2017-07-16)
DX: K74.69 Other cirrhosis of liver (principal); R18.8 Other ascites; D61.818 Other pancytopenia; R64 Cachexia; K76.6 Portal hypertension; I85.10 Secondary esophageal varices without bleeding; C50.912 Malignant neoplasm of unspecified site of left female breast; R16.1 Splenomegaly, not elsewhere classified; B18.2 Chronic viral hepatitis C; F10.10 Alcohol abuse, uncomplicated; F32.9 Major depressive disorder, single episode, unspecified; F41.9 Anxiety disorder, unspecified; H91.90 Unspecified hearing loss, unspecified ear; I10 Essential (primary) hypertension; K21.9 Gastro-esophageal reflux disease without esophagitis; F17.210 Nicotine dependence, cigarettes, uncomplicated; Z17.1 Estrogen receptor negative status [ER-]; Z85.3 Personal history of malignant neoplasm of breast; Z79.899 Other long term (current) drug therapy; Z92.21 Personal history of antineoplastic chemotherapy; Z82.49 Family history of ischemic heart disease and other diseases of the circulatory system; Z80.1 Family history of malignant neoplasm of trachea, bronchus and lung
CPT/HCPCS: 49083; 71260; 74018; 74177; 78306; 80053; 80306; 80320; 81001; 82150; 83690; 85025; 85610; 85730; 96374; 96375; 99285

== ENCOUNTER 2017-07-31 16:39 | Observation (INO) | payer MEDICARE, OTHER ==
[2017-07-31] MEDS ORDERED: MORPHINE SULFATE 4 MG/0.8 ML SYRINGE (INJ) IVP STA (17:12)
--- NOTE | 2017-07-31 17:17 | ED ---
Abdominal Pain HPI - General Source: patient, RN notes reviewed, old records reviewed Mode of arrival: ambulatory Limitations: no limitations <Jaz Almodovar - Last Filed: 07/31/17 20:06> <Nir Garcia - Last Filed: 07/31/17 20:13> - General Chief Complaint: Abdominal Pain Stated Complaint: abd pain/distention Time Seen by Provider: 07/31/17 17:02 - History of Present Illness Initial Comments: This is a 51-year-old female with history of chronic ascites and hepatitis C who presents to the emergency department with chief complaint of worsening abdominal pain. Patient states that she feels that she needs a paracentesis. She states that she has been having increased right-sided abdominal pain for the past 2 days since running out of her [place]. She describes the pain as cramping and sharp. She admits to associated nausea and diarrhea. Denies vomiting, fevers or chills, chest pain or shortness of breath, dysuria or hematuria, melena. Patient states that her last paracentesis was 3 weeks ago. She states that with each paracentesis they usually take off 9-18 L of fluid. ( Jaz Almodovar) - Related Data Home Medications Medication Instructions Recorded Confirmed Omeprazole 20 mg PO DAILY 07/31/17 07/31/17 Allergies Allergy/AdvReac Type Severity Reaction Status Date / Time No Known Allergies Allergy Verified 07/31/17 17:17 Review of Systems ROS Other: All systems not noted in ROS Statement are negative. <Jaz Almodovar - Last Filed: 07/31/17 20:06> ROS Other: All systems not noted in ROS Statement are negative. <Nir Garcia - Last Filed: 07/31/17 20:13> ROS Statement: Those systems with pertinent positive or pertinent negative responses have been documented in the HPI. Past Medical History Past Medical History: Cancer, GERD/Reflux, GI Bleed, Hearing Disorder / Deafness , Hypertension, Liver Disease Additional Past Medical History / Comment(s): Hepatitis C, ascities, cirrhosis, pancytopenia, vertigo; "benign abd mass", states has had esophageal banding, lt breast cancer had chemo last on 09-12-16-did not tolerate-completed only 3 cycles- then it was stopped, lt ear hearing loss, multiple upper GI bleeds. History of Any Multi-Drug Resistant Organisms: None Reported Past Surgical History: Adenoidectomy, Tonsillectomy Additional Past Surgical History / Comment(s): Paracentesises, EGD, esophageal banding, rt chest mediport 08-06-16, l breast bx. Past Anesthesia/Blood Transfusion Reactions: No Reported Reaction Additional Past Anesthesia/Blood Transfusion Reaction / Comment(s): blood transfusions- no reaction Past Psychological History: Anxiety Smoking Status: Light tobacco smoker Past Alcohol Use History: None Reported Past Drug Use History: None Reported - Past Family History Mother Family Medical History: Cancer Additional Family Medical History / Comment(s): of lung ca at the age of 59yrs. She was a smoker. Father Family Medical History: Myocardial Infarction ([place]) Additional Family Medical History / Comment(s): from 2nd heart attack at the age of 59yrs. <Jaz Almodovar - Last Filed: 07/31/17 20:06> General Exam Limitations: no limitations <Jaz Almodovar - Last Filed: 07/31/17 20:06> <Nir Garcia - Last Filed: 07/31/17 20:13> - General Exam Comments Initial Comments: General: Awake and alert, well-developed; in no apparent distress. Appears chronically ill. HEENT: Head atraumatic, normocephalic. Pupils are equal, round and reactive to light. Extraocular movements intact. Oropharynx moist without erythema or exudate. Neck: Supple. Normal ROM. Cardiovascular: Regular rate and rhythm. No murmurs, rubs or gallops. Chest symmetrical. Respiratory: Lungs clear to auscultation bilaterally. No wheezes, rales or rhonchi. Normal respiratory effort with no use of accessory muscles. Abdomen: Firm and distended. Tenderness on palpation of right upper and right lower quadrants. Hypoactive bowel sounds in all 4 quadrants. Musculoskeletal: Normal ROM, no tenderness bilateral upper and lower extremities. 1+ pitting edema bilateral lower extremities. Skin: Ashy, warm and dry without rashes or lesions. Neurological: Alert and oriented x3. CN II-XII grossly intact. Speech is fluent and answers are appropriate. No focal neuro deficits. Psychiatric: Normal mood and affect. No overt signs of depression or anxiety noted. (Jaz Almodovar) Course <Jaz Almodovar - Last Filed: 07/31/17 20:06> <Nir Garcia - Last Filed: 07/31/17 20:13> Vital Signs 07/31/17 07/31/17 16:48 19:55 Temperature 97.9 F 99.4 F Pulse Rate 102 H 88 Respiratory 18 18 Rate Blood Pressure 127/89 115/68 O2 Sat by Pulse 97 100 Oximetry - Reevaluation(s) Reevaluation #1: 07/31/17 20:13 Case was discussed with Dr. cornelius, who will admit. (Nir Garcia) Medical Decision Making - Lab Data Result diagrams: 07/31/17 17:51 07/31/17 17:51 <Jaz Almodovar - Last Filed: 07/31/17 20:06> - Lab Data Result diagrams: 07/31/17 17:51 07/31/17 17:51 <Nir Garcia - Last Filed: 07/31/17 20:13> - Medical Decision Making This is a 51-year-old female with history of hepatitis C and ascites who presents to the emergency department with chief complaint of worsening abdominal pain. Patient states that she believes she needs to undergo paracentesis. On physical examination, abdomen is distended and firm. Tenderness on palpation of right side of the abdomen. CBC revealed pancytopenia with white blood cell count 2.4, hemoglobin 8.3 and platelet count of 72. Patient will be admitted to Dr. Estrada with a consult to interventional radiology. This case was discussed with attending physician, Dr. Garcia who also evaluated the patient. Patient is in agreement with admission. All questions answered. (Jaz Almodovar) Patient reevaluated. Patient does have ascites. Patient states this is a chronic problem for her. Patient states she usually gets admitted with reality to drink. Dr. Richardson has been paged for admission for Dr. Estrada. (Nir Garcia) - Lab Data Lab Results 07/31/17 07/31/17 07/31/17 Range/Units 17:51 17:51 17:51 WBC 2.4 L (3.8-10.6) k/uL RBC 2.44 L (3.80-5.40) m/uL Hgb 8.3 L (11.4-16.0) gm/dL Hct 25.5 L (34.0-46.0) % MCV 104.4 H (80.0-100.0) fL MCH 34.1 (25.0-35.0) pg MCHC 32.7 (31.0-37.0) g/dL RDW 14.4 (11.5-15.5) % Plt Count 72 L (150-450) k/uL Neutrophils % 73 % Lymphocytes % 11 % Monocytes % 11 % Eosinophils % 2 % Basophils % 0 % Neutrophils # 1.8 (1.3-7.7) k/uL Lymphocytes # 0.3 L (1.0-4.8) k/uL Monocytes # 0.3 (0-1.0) k/uL Eosinophils # 0.0 (0-0.7) k/uL Basophils # 0.0 (0-0.2) k/uL Hypochromasia Slight Macrocytosis Slight PT (9.0-12.0) sec INR (<1.2) APTT (22.0-30.0) sec Sodium 133 L (137-145) mmol/L Potassium 3.8 (3.5-5.1) mmol/L Chloride 106 (98-107) mmol/L Carbon Dioxide 20 L (22-30) mmol/L Anion Gap 7 mmol/L BUN 22 H (7-17) mg/dL Creatinine 0.80 (0.52-1.04) mg/dL Est GFR (CKD-EPI)AfAm >90 (>60 ml/min/1.73 sqM) Est GFR (CKD-EPI)NonAf 85 (>60 ml/min/1.73 sqM) Glucose 118 H (74-99) mg/dL Calcium 7.9 L (8.4-10.2) mg/dL Total Bilirubin 1.1 (0.2-1.3) mg/dL AST 34 (14-36) U/L ALT 24 (9-52) U/L Alkaline Phosphatase 99 (38-126) U/L Ammonia 44 H (<30) umol/L Total Protein 5.7 L (6.3-8.2) g/dL Albumin 2.2 L (3.5-5.0) g/dL Amylase 38 (30-110) U/L Lipase 120 (23-300) U/L 07/31/17 Range/Units 17:51 WBC (3.8-10.6) k/uL RBC (3.80-5.40) m/uL Hgb (11.4-16.0) gm/dL Hct (34.0-46.0) % MCV (80.0-100.0) fL MCH (25.0-35.0) pg MCHC (31.0-37.0) g/dL RDW (11.5-15.5) % Plt Count (150-450) k/uL Neutrophils % % Lymphocytes % % Monocytes % % Eosinophils % % Basophils % % Neutrophils # (1.3-7.7) k/uL Lymphocytes # (1.0-4.8) k/uL Monocytes # (0-1.0) k/uL Eosinophils # (0-0.7) k/uL Basophils # (0-0.2) k/uL Hypochromasia Macrocytosis PT 11.1 (9.0-12.0) sec INR 1.2 H (<1.2) APTT 29.1 (22.0-30.0) sec Sodium (137-145) mmol/L Potassium (3.5-5.1) mmol/L Chloride (98-107) mmol/L Carbon Dioxide (22-30) mmol/L Anion Gap mmol/L BUN (7-17) mg/dL Creatinine (0.52-1.04) mg/dL Est GFR (CKD-EPI)AfAm (>60 ml/min/1.73 sqM) Est GFR (CKD-EPI)NonAf (>60 ml/min/1.73 sqM) Glucose (74-99) mg/dL Calcium (8.4-10.2) mg/dL Total Bilirubin (0.2-1.3) mg/dL AST (14-36) U/L ALT (9-52) U/L Alkaline Phosphatase (38-126) U/L Ammonia (<30) umol/L Total Protein (6.3-8.2) g/dL Albumin (3.5-5.0) g/dL Amylase (30-110) U/L Lipase (23-300) U/L Disposition Time of Disposition: 20:06 <Jaz Almodovar - Last Filed: 07/31/17 20:06> <Nir Garcia - Last Filed: 07/31/17 20:13> Clinical Impression: Ascites, Pancytopenia, Abdominal pain Disposition: ADMITTED IP TO THIS HOSP Condition: Stable
[2017-07-31 18:05] LABS: Basophils % (A) 0 %; Eosinophils % (A) 2 %; HCT 25.5 % (34.0-46.0); HGB 8.3 gm/dL (11.4-16.0); Hypochromasia Slight; Lymphocytes # (A) 0.3 k/uL (1.0-4.8); Lymphocytes % (A) 11 %; MCH 34.1 pg (25.0-35.0); MCHC 32.7 g/dL (31.0-37.0); MCV 104.4 fL (80.0-100.0); Macrocytosis Slight; Mean Platelet Volume 9.4; Monocytes # (A) 0.3 k/uL (0-1.0); Monocytes % (A) 11 %; Neutrophils # (A) 1.8 k/uL (1.3-7.7); Neutrophils % (A) 73 %; RBC 2.44 m/uL (3.80-5.40); RDW 14.4 % (11.5-15.5); WBC 2.4 k/uL (3.8-10.6)
[2017-07-31 18:08] LABS: Platelet Count 72 k/uL (150-450)
[2017-07-31 18:14] LABS: INR 1.2 (<1.2); Partial Thromboplastin Time 29.1 sec (22.0-30.0); Prothrombin Time 11.1 sec (9.0-12.0)
[2017-07-31 18:16] LABS: ALT 24 U/L (9-52); AST 34 U/L (14-36); Albumin 2.2 g/dL (3.5-5.0); Alkaline Phosphatase 99 U/L (38-126); Amylase 38 U/L (30-110); Anion Gap 7 mmol/L; Blood Urea Nitrogen 22 mg/dL (7-17); Calcium 7.9 mg/dL (8.4-10.2); Carbon Dioxide 20 mmol/L (22-30); Chloride 106 mmol/L (98-107); Glucose 118 mg/dL (74-99); Lipase 120 U/L (23-300); Potassium 3.8 mmol/L (3.5-5.1); Sodium 133 mmol/L (137-145); Total Bilirubin 1.1 mg/dL (0.2-1.3); Total Protein 5.7 g/dL (6.3-8.2)
[2017-07-31] MEDS ORDERED: IBUPROFEN 400 MG TAB PO PRN (19:08)
[2017-07-31] MEDS ORDERED: KETOROLAC 30 MG/ML 1 ML VIAL IVP PRN (19:08)
[2017-07-31] MEDS ORDERED: NALOXONE 0.4 MG/ML 1 ML VIAL IV PRN (19:08)
[2017-07-31] MEDS: MORPHINE SULFATE 4 MG/0.8 ML SYRINGE (INJ) IV PRN (22:03)
[2017-07-31] MEDS ORDERED: MORPHINE SULFATE 4 MG/0.8 ML SYRINGE (INJ) IVP ONE (22:52)
[2017-08-01] MEDS: MORPHINE SULFATE 4 MG/0.8 ML SYRINGE (INJ) IV PRN ×4 (02:01→14:42)
[2017-08-01 06:31] VITALS: BP 91/53; PULSE 83; RESP 16; TEMP 97.7
[2017-08-01] MEDS ORDERED: PANTOPRAZOLE 40 MG TABLET PO SCH (07:30)
[2017-08-01] MEDS ORDERED: FUROSEMIDE 10 MG/ML 4 ML VIAL IV STA (10:43)
[2017-08-01] MEDS: traMADol 50 MG TAB PO PRN ×2 (11:15→16:14)
--- NOTE | 2017-08-01 11:31 | P.DS ---
Providers Date of admission: 07/31/17 19:40 Attending physician: Mark Estrada Consults: 07/31/17 19:11 Consult Physician Urgent Consulting Provider: Suzie Hdz Consult Reason/Comments: ascites Do you want consulting provider notified?: Yes Primary care physician: Mark Estrada Hospital Course: As mentioned in HPI Patient Condition at Discharge: Stable Plan - Discharge Summary Discharge Rx Participant: No New Discharge Prescriptions: New traMADol HCL [Ultram] 50 mg PO Q4HR PRN #21 tab PRN Reason: Pain HYDROcodone/APAP 7.5-325MG [[place] 7.5-325] 1 tab PO Q4H PRN #8 tab PRN Reason: Pain Furosemide [Lasix] 40 mg PO DAILY #30 tablet Spironolactone [Aldactone] 50 mg PO DAILY #30 tab No Action Omeprazole 20 mg PO DAILY Discharge Medication List Omeprazole 20 mg PO DAILY 07/31/17 [History] Furosemide [Lasix] 40 mg PO DAILY #30 tablet 08/01/17 [Rx] HYDROcodone/APAP 7.5-325MG [[place] 7.5-325] 1 tab PO Q4H PRN #8 tab 08/01/17 [Rx] Spironolactone [Aldactone] 50 mg PO DAILY #30 tab 08/01/17 [Rx] traMADol HCL [Ultram] 50 mg PO Q4HR PRN #21 tab 08/01/17 [Rx] Follow up Appointment(s)/Referral(s): Mark Estrada MD [Primary Care Provider] - 3 Days Discharge Disposition: HOME SELF-CARE
--- NOTE | 2017-08-01 11:31 | P.HPIM ---
History of Present Illness 51-year-old female with history of chronic ascites and hepatitis C who presents to the emergency department with chief complaint of worsening abdominal pain. Patient states that she feels that she needs a paracentesis. She states that she has been having increased right-sided abdominal pain for the past 2 days since running out of her [place]. She describes the pain as cramping and sharp. She admits to associated nausea and diarrhea. Denies vomiting, fevers or chills , chest pain or shortness of breath, dysuria or hematuria, melena. Patient states that her last paracentesis was 3 weeks ago. She states that with each paracentesis they usually take off 9-18 L of fluid. Radiology is not available for paracentesis today presents as will be set of present for an outpatient. Patient had an episode of fever here in the hospital when she was covered in sheets beyond that there are no more episodes of fever and my suspicion is extremely low for spontaneous bacterial peritonitis. Patient's pain is about 5- 6/10 and requesting [place] although [place] is not really recommended because of her cirrhosis patient did well with [place] in the past and is requesting [place] will provide couple days of prescription until she sees her primary care patient Dr. Estrada as an outpatient. Patient will be given prescription for tramadol for couple days as well. Patient ran out of her diuretics were prescription of which will be provided as well. Patient is complaining of dysuria we'll obtain EEA fits abnormal we'll discharge her on 3 days of antibiotics, either Cipro or Ceftin Review of Systems REVIEW OF SYSTEMS: CONSTITUTIONAL: No fever, no malaise, no fatigue. HEENT: No recent visual problems or hearing problems. Denied any sore throat. CARDIOVASCULAR: No chest pain, orthopnea, PND, no palpitations, no syncope. PULMONARY: No shortness of breath, no cough, no hemoptysis. GASTROINTESTINAL: As mentioned in HPI NEUROLOGICAL: No headaches, no weakness, no numbness. HEMATOLOGICAL: Denies any bleeding or petechiae. GENITOURINARY: Denies any burning micturition, frequency, or urgency. MUSCULOSKELETAL/RHEUMATOLOGICAL: Denies any joint pain, swelling, or any muscle pain. ENDOCRINE: Denies any polyuria or polydipsia. The rest of the 14-point review of systems is negative. Past Medical History Past Medical History: Cancer, GERD/Reflux, GI Bleed, Hearing Disorder / Deafness , Hypertension, Liver Disease Additional Past Medical History / Comment(s): Hepatitis C, ascities, cirrhosis, pancytopenia, vertigo; "benign abd mass", states has had esophageal banding, lt breast cancer had chemo last on 09-12-16-did not tolerate-completed only 3 cycles- then it was stopped, lt ear hearing loss, multiple upper GI bleeds. History of Any Multi-Drug Resistant Organisms: None Reported Past Surgical History: Adenoidectomy, Tonsillectomy Additional Past Surgical History / Comment(s): Paracentesises, EGD, esophageal banding, rt chest mediport 08-06-16, l breast bx. Past Anesthesia/Blood Transfusion Reactions: No Reported Reaction Additional Past Anesthesia/Blood Transfusion Reaction / Comment(s): blood transfusions- no reaction Past Psychological History: Anxiety Additional Psychological History / Comment(s): Has a history of hepatitis C with esophageal variceal bleeds requiring banding several years ago. denies any drug use. No experience. No international travel. No animal exposures. pt's son lives with her.2 story home 1 front step. pt's bathroom and bedroom on 2nd floor.has a bsc at home. Smoking Status: Light tobacco smoker Past Alcohol Use History: None Reported Additional Past Alcohol Use History / Comment(s): pt started smoking at age 13 smoked 1/2 ppd but more recently stated only smoking 1 cig per day Pt states she has never been a drinker. Past Drug Use History: None Reported - Past Family History Mother Family Medical History: Cancer Additional Family Medical History / Comment(s): of lung ca at the age of 59yrs. She was a smoker. Father Family Medical History: Myocardial Infarction ([place]) Additional Family Medical History / Comment(s): from 2nd heart attack at the age of 59yrs. Medications and Allergies Home Medications Medication Instructions Recorded Confirmed Type Omeprazole 20 mg PO DAILY 07/31/17 07/31/17 History Furosemide [Lasix] 40 mg PO DAILY #30 tablet 08/01/17 Rx HYDROcodone/APAP 7.5-325MG [[place] 1 tab PO Q4H PRN #8 tab 08/01/17 Rx 7.5-325] Spironolactone [Aldactone] 50 mg PO DAILY #30 tab 08/01/17 Rx traMADol HCL [Ultram] 50 mg PO Q4HR PRN #21 tab 08/01/17 Rx Allergies Allergy/AdvReac Type Severity Reaction Status Date / Time No Known Allergies Allergy Verified 07/31/17 17:17 Physical Exam Vitals: Vital Signs Temp Pulse Pulse Resp BP BP Pulse Ox 08/01/17 08:16 83 08/01/17 05:45 97.7 F 83 16 91/53 96 08/01/17 00:40 99.4 F 20 93/54 07/31/17 23:15 101.4 F H 07/31/17 21:46 100.5 F H 87 16 106/66 100 07/31/17 21:11 99.4 F 91 18 108/65 99 07/31/17 19:55 99.4 F 88 18 115/68 100 07/31/17 16:48 97.9 F 102 H 18 127/89 97 Intake and Output 07/31/17 08/01/17 08/01/17 22:59 06:59 14:59 Other: # Voids 3 Weight 77.111 kg PHYSICAL EXAMINATION: GENERAL: The patient is alert and oriented x3, not in any acute distress. Thin built and cachectic secondary to cirrhosis HEENT: Pupils are round and equally reacting to light. EOMI. No scleral icterus. No conjunctival pallor. Normocephalic, atraumatic. No pharyngeal erythema. No thyromegaly. CARDIOVASCULAR: S1 and S2 present. No murmurs, rubs, or gallops. PULMONARY: Chest is clear to auscultation, no wheezing or crackles. ABDOMEN: Belly is distended no significant tenderness patient does have stigmata of cirrhosis including medical herni. MUSCULOSKELETAL: No joint swelling or deformity. EXTREMITIES: No cyanosis, clubbing, or pedal edema. NEUROLOGICAL: Gross neurological examination did not reveal any focal deficits. SKIN: No rashes. Results CBC & Chem 7: 07/31/17 17:51 07/31/17 17:51 Labs: Abnormal Lab Results - Last 24 Hours (Table) 07/31/17 07/31/17 07/31/17 Range/Units 17:51 17:51 17:51 WBC 2.4 L (3.8-10.6) k/uL RBC 2.44 L (3.80-5.40) m/uL Hgb 8.3 L (11.4-16.0) gm/dL Hct 25.5 L (34.0-46.0) % MCV 104.4 H (80.0-100.0) fL Plt Count 72 L (150-450) k/uL Lymphocytes # 0.3 L (1.0-4.8) k/uL INR (<1.2) Sodium 133 L (137-145) mmol/L Carbon Dioxide 20 L (22-30) mmol/L BUN 22 H (7-17) mg/dL Glucose 118 H (74-99) mg/dL Calcium 7.9 L (8.4-10.2) mg/dL Ammonia 44 H (<30) umol/L Total Protein 5.7 L (6.3-8.2) g/dL Albumin 2.2 L (3.5-5.0) g/dL 07/31/17 Range/Units 17:51 WBC (3.8-10.6) k/uL RBC (3.80-5.40) m/uL Hgb (11.4-16.0) gm/dL Hct (34.0-46.0) % MCV (80.0-100.0) fL Plt Count (150-450) k/uL Lymphocytes # (1.0-4.8) k/uL INR 1.2 H (<1.2) Sodium (137-145) mmol/L Carbon Dioxide (22-30) mmol/L BUN (7-17) mg/dL Glucose (74-99) mg/dL Calcium (8.4-10.2) mg/dL Ammonia (<30) umol/L Total Protein (6.3-8.2) g/dL Albumin (3.5-5.0) g/dL Thrombosis Risk Factor Assmnt - Choose All That Apply Any of the Below Risk Factors Present?: Yes Each Factor Represents 1 point: Age 41-60 years Other Risk Factors: No Other congenital or acquired thrombophilia - If yes, enter type in comment: No Thrombosis Risk Factor Assessment Total Risk Factor Score: 1 Thrombosis Risk Factor Assessment Level: Low Risk Assessment and Plan Plan: Cirrhosis with ascites patient will need the therapeutic paracentesis which we will set up as an outpatient area at patient will be provided with pain medications for abdominal pain secondary to abdominal distention my suspicion is extremely low that she has spontaneous bacterial peritonitis. Patient will be discharged on diuretics as mentioned above. -Gastroesophageal reflux disease -Chronic hepatitis C -Hypertension
[2017-08-01 13:43] LABS: Appearance,Urine Cloudy (Clear); Bacteria,Urine Rare /hpf; Bilirubin,Urine Negative (Negative); Blood,Urine Negative (Negative); Color,Urine Light Yellow; Glucose,Urine (UA) Negative (Negative); Hyaline Casts,Urine 4 /lpf (0-2); Ketones,Urine Negative (Negative); Leukocyte Esterase,Urine Large (Negative); Mucus,Urine Occasional /hpf; Nitrite,Urine Negative (Negative); Protein,Urine Negative (Negative); RBC,Urine 4 /hpf (0-5); Specific Gravity,Urine 1.007 (1.001-1.035); Squamous Epithelial Cell,Urine 2 /hpf (0-4); Urobilinogen,Urine <2.0 mg/dL (<2.0); WBC,Urine 32 /hpf (0-5)
[2017-08-01] MEDS ORDERED: cefTRIAXone IN SWFI 1,000 MG/10 ML SYRINGE IVP SCH ×2 (14:45→15:00)
[2017-08-02] MEDS ORDERED: NON-FORMULARY DRUG (Omeprazole [Omeprazole] 20 MG) PO SCH (09:00)
== END 2017-08-01 18:37 | disposition home or self-care (01) ==
LOC: EC 16:39 → 4MS4W 19:40
PROVIDERS: ADMIT Family Medicine; ATTEND Family Medicine
DX: R18.8 Other ascites (principal); K74.60 Unspecified cirrhosis of liver; B18.2 Chronic viral hepatitis C; K21.9 Gastro-esophageal reflux disease without esophagitis; I10 Essential (primary) hypertension; R50.9 Fever, unspecified; R30.0 Dysuria; D61.818 Other pancytopenia; R19.7 Diarrhea, unspecified; H91.92 Unspecified hearing loss, left ear; F41.9 Anxiety disorder, unspecified; F17.210 Nicotine dependence, cigarettes, uncomplicated; C50.912 Malignant neoplasm of unspecified site of left female breast; Z79.899 Other long term (current) drug therapy; Z98.84 Bariatric surgery status; Z92.21 Personal history of antineoplastic chemotherapy; Z80.1 Family history of malignant neoplasm of trachea, bronchus and lung; Z82.49 Family history of ischemic heart disease and other diseases of the circulatory system
CPT/HCPCS: 99285; 96374 ×2; 96376 ×2; 96375; 36415; 80053; 82140; 82150; 83690; 85025; 85610; 85730; 81001; G0378 ×2; J1940; J0696; J1885; J1642; J2270 ×2

== ENCOUNTER 2017-08-04 23:33 | Observation (INO) | payer MEDICARE, OTHER ==
[2017-08-05] MEDS ORDERED: MORPHINE SULFATE 4 MG/ML SYRINGE IVP STA (00:46)
[2017-08-05] MEDS ORDERED: SODIUM CHLORIDE 0.9% 1,000 ML IV STA (00:46)
[2017-08-05] MEDS ORDERED: ONDANSETRON ODT 8 MG TAB.RAPDIS PO STA (00:46)
--- NOTE | 2017-08-05 00:51 | ED ---
General Adult HPI <Nir Garcia - Last Filed: 08/05/17 01:23> - General Source: patient, RN notes reviewed Mode of arrival: ambulatory Limitations: no limitations <Darien Childress - Last Filed: 08/05/17 02:14> - General Chief complaint: Abdominal Pain Stated complaint: VANDANA Time Seen by Provider: 08/05/17 00:31 - History of Present Illness Initial comments: 51-year-old female significant past medical history for hepatitis C with chronic ascites, presented to the emergency room today with a chief complaint of increased abdominal swelling and shortness of breath. Patient states that she believe she needs paracentesis. States last paracentesis was 07/15/2079. Patient states her symptoms are consistent with the swelling of the abdomen causes some shortness of breath. She denies any other complaints.Patient denies any recent fever, chills, shortness of breath, chest pain, back pain, numbness or tingling, dysuria or hematuria, constipation or diarrhea, headaches or visual changes, or any other complaints. (Darien Childress) - Related Data Home Medications Medication Instructions Recorded Confirmed Omeprazole 20 mg PO DAILY 07/31/17 08/05/17 Previous Rx's Medication Instructions Recorded Furosemide [Lasix] 40 mg PO DAILY #30 tablet 08/01/17 HYDROcodone/APAP 7.5-325MG [[place] 1 tab PO Q4H PRN #8 tab 08/01/17 7.5-325] Spironolactone [Aldactone] 50 mg PO DAILY #30 tab 08/01/17 traMADol HCL [Ultram] 50 mg PO Q4HR PRN #21 tab 08/01/17 Allergies Allergy/AdvReac Type Severity Reaction Status Date / Time No Known Allergies Allergy Verified 07/31/17 17:17 Review of Systems ROS Other: All systems not noted in ROS Statement are negative. <Nir Garcia - Last Filed: 08/05/17 01:23> ROS Other: All systems not noted in ROS Statement are negative. <Darien Childress - Last Filed: 08/05/17 02:14> ROS Statement: Those systems with pertinent positive or pertinent negative responses have been documented in the HPI. Past Medical History Past Medical History: Cancer, GERD/Reflux, GI Bleed, Hearing Disorder / Deafness , Hypertension, Liver Disease Additional Past Medical History / Comment(s): Hepatitis C, ascities, cirrhosis, pancytopenia, vertigo; "benign abd mass", states has had esophageal banding, lt breast cancer had chemo last on 09-12-16-did not tolerate-completed only 3 cycles- then it was stopped, lt ear hearing loss, multiple upper GI bleeds. History of Any Multi-Drug Resistant Organisms: None Reported Past Surgical History: Adenoidectomy, Tonsillectomy Additional Past Surgical History / Comment(s): Paracentesises, EGD, esophageal banding, rt chest mediport 08-06-16, l breast bx. Past Anesthesia/Blood Transfusion Reactions: No Reported Reaction Additional Past Anesthesia/Blood Transfusion Reaction / Comment(s): blood transfusions- no reaction Past Psychological History: Anxiety Smoking Status: Light tobacco smoker Past Alcohol Use History: None Reported Past Drug Use History: None Reported - Past Family History Mother Family Medical History: Cancer Additional Family Medical History / Comment(s): of lung ca at the age of 59yrs. She was a smoker. Father Family Medical History: Myocardial Infarction ([place]) Additional Family Medical History / Comment(s): from 2nd heart attack at the age of 59yrs. <Darien Childress - Last Filed: 08/05/17 02:14> General Exam <Nir Garcia - Last Filed: 08/05/17 01:23> Limitations: no limitations <Darien Childress - Last Filed: 08/05/17 02:14> - General Exam Comments Initial Comments: General: The patient is awake and alert, in moderate distress. Eye: Pupils are equal, round and reactive to light, extra-ocular movements are intact. No nystagmus. There is normal conjunctiva bilaterally. Ears, nose, mouth and throat: There are moist mucous membranes and no oral lesions. Neck: The neck is supple, there is no tenderness or JVD. Cardiovascular: There is a regular rate and rhythm. No murmur, rub or gallop is appreciated. Respiratory: Lungs are clear to auscultation, respirations are non-labored, breath sounds are equal. No wheezes, stridor, rales, or rhonchi. Gastrointestinal: Abdomen swollen on exam and firm. Moderate tenderness throughout the abdomen on palpation. No CVA tenderness. Musculoskeletal: Normal ROM, no tenderness. Strength 5/5. Sensation intact. Pulses equal bilaterally 2+. Neurological: A&O x 3. CN II-XII intact, There are no obvious motor or sensory deficits. Coordination appears grossly intact. Speech is normal. Skin: Skin is warm and dry and no rashes or lesions are noted. Psychiatric: Cooperative, appropriate mood & affect, normal judgment. (Darien Childress) Vital Signs 08/05/17 00:20 Temperature 97.4 F L Pulse Rate 93 Respiratory 20 Rate Blood Pressure 112/63 O2 Sat by Pulse 100 Oximetry Medical Decision Making <Nir Garcia - Last Filed: 08/05/17 01:23> - Lab Data Result diagrams: 08/05/17 01:31 <Darien Childress - Last Filed: 08/05/17 02:14> - Medical Decision Making Patient reevaluated by myself, Dr. Garcia. Patient is resting comfortably in bed. Patient does have significant ascites. Patient updated on results and plan. Case was discussed with Dr. Estrada, who will admit his patient. Consult will be placed for interventional radiology. (Nir Garcia) - Lab Data Lab Results 08/05/17 08/05/17 Range/Units 01:31 01:31 Sodium 132 L (137-145) mmol/L Potassium 3.6 (3.5-5.1) mmol/L Chloride 105 (98-107) mmol/L Carbon Dioxide 20 L (22-30) mmol/L Anion Gap 7 mmol/L BUN 20 H (7-17) mg/dL Creatinine 0.70 (0.52-1.04) mg/dL Est GFR (CKD-EPI)AfAm >90 (>60 ml/min/1.73 sqM) Est GFR (CKD-EPI)NonAf >90 (>60 ml/min/1.73 sqM) Glucose 96 (74-99) mg/dL Calcium 7.6 L (8.4-10.2) mg/dL Total Bilirubin 0.6 (0.2-1.3) mg/dL AST 33 (14-36) U/L ALT 19 (9-52) U/L Alkaline Phosphatase 144 H (38-126) U/L Ammonia 20 (<30) umol/L Total Protein 5.5 L (6.3-8.2) g/dL Albumin 2.1 L (3.5-5.0) g/dL Amylase 38 (30-110) U/L Lipase 209 (23-300) U/L Disposition <Nir Garcia - Last Filed: 08/05/17 01:23> Time of Disposition: 02:14 <Darien Childress - Last Filed: 08/05/17 02:14> Clinical Impression: Ascites Disposition: ADMITTED IP TO THIS [facility] Condition: Stable Referrals: Mark Estrada MD [Primary Care Provider] - 1-2 days
[2017-08-05 02:02] LABS: ALT 19 U/L (9-52); AST 33 U/L (14-36); Albumin 2.1 g/dL (3.5-5.0); Alkaline Phosphatase 144 U/L (38-126); Amylase 38 U/L (30-110); Anion Gap 7 mmol/L; Blood Urea Nitrogen 20 mg/dL (7-17); Calcium 7.6 mg/dL (8.4-10.2); Carbon Dioxide 20 mmol/L (22-30); Chloride 105 mmol/L (98-107); Glucose 96 mg/dL (74-99); Lipase 209 U/L (23-300); Potassium 3.6 mmol/L (3.5-5.1); Sodium 132 mmol/L (137-145); Total Bilirubin 0.6 mg/dL (0.2-1.3); Total Protein 5.5 g/dL (6.3-8.2)
--- NOTE | 2017-08-05 02:09 | XR ---
EXAMINATION TYPE: XR KUB DATE OF EXAM: 08/05/2017 COMPARISON: 07/14/2017 HISTORY: Abdominal pain TECHNIQUE: 3 views. FINDINGS: There is increased density over the entire abdomen consistent with massive ascites. There is no sign of free air. I see no sign of a bowel obstruction. There are no pathologic calcifications over the k idneys. IMPRESSION: There is evidence for massive ascites that is increased compared to last exam.
[2017-08-05] MEDS ORDERED: NALOXONE 0.4 MG/ML 1 ML VIAL IV PRN (02:14)
[2017-08-05] MEDS ORDERED: MORPHINE SULFATE 4 MG/ML SYRINGE IV PRN (02:14)
[2017-08-05 02:22] LABS: Basophils % (A) 0 %; Eosinophils # (A) 0.1 k/uL (0-0.7); Eosinophils % (A) 5 %; HCT 33.4 % (34.0-46.0); HGB 11.2 gm/dL (11.4-16.0); Lymphocytes # (A) 0.5 k/uL (1.0-4.8); Lymphocytes % (A) 19 %; MCH 34.2 pg (25.0-35.0); MCHC 33.6 g/dL (31.0-37.0); MCV 101.9 fL (80.0-100.0); Macrocytosis Slight; Mean Platelet Volume 8.4; Monocytes # (A) 0.3 k/uL (0-1.0); Monocytes % (A) 12 %; Neutrophils # (A) 1.5 k/uL (1.3-7.7); Neutrophils % (A) 60 %; Poikilocytosis Slight; RBC 3.28 m/uL (3.80-5.40); RDW 14.5 % (11.5-15.5); WBC 2.5 k/uL (3.8-10.6)
[2017-08-05 02:34] LABS: Platelet Count 77 k/uL (150-450)
[2017-08-05 04:29] VITALS: BMI 26.6
[2017-08-05] MEDS: SODIUM CHLORIDE 0.9% 1,000 ML IV SCH (05:33)
[2017-08-05 07:38] LABS: Appearance,Urine Clear (Clear); Bilirubin,Urine Negative (Negative); Blood,Urine Negative (Negative); Color,Urine Yellow; Glucose,Urine (UA) Negative (Negative); Ketones,Urine Negative (Negative); Leukocyte Esterase,Urine Negative (Negative); Nitrite,Urine Negative (Negative); Protein,Urine Trace (Negative); Specific Gravity,Urine 1.023 (1.001-1.035); Urobilinogen,Urine <2.0 mg/dL (<2.0)
[2017-08-05] MEDS ORDERED: MORPHINE ORAL SOLN 10 MG/5 ML CUP PO PRN (08:18)
[2017-08-05 08:36] LABS: INR 1.1 (<1.2)
[2017-08-05] MEDS ORDERED: traMADol 50 MG TAB PO PRN (08:39)
[2017-08-05] MEDS: MORPHINE ORAL SOLN 10 MG/5 ML CUP PO PRN ×3 (09:42→20:32)
[2017-08-05] MEDS: FUROSEMIDE 40 MG TAB PO SCH (09:44)
[2017-08-05] MEDS: SPIRONOLACTONE 25 MG TAB PO SCH (09:44)
[2017-08-05] MEDS: PANTOPRAZOLE 40 MG TABLET PO SCH (09:44)
[2017-08-05] MEDS: HYDROcodone/APAP 7.5-325MG 1 EACH TAB PO PRN ×3 (11:19→23:11)
[2017-08-05] MEDS: ALBUMIN HUMAN 25% 50 ML in EMPTY BAG 1 BAG IVPB SCH ×4 (13:21→15:15)
--- NOTE | 2017-08-05 14:03 | US ---
Therapeutic paracentesis. DATE OF EXAM: 08/05/2017 CLINICAL HISTORY: Ascites The procedure was discussed with the patient. The risks, complications, benefits, and alternatives we re discussed and any questions were answered. Informed consent was obtained. The patient was placed s upine on the ultrasound table and prepped and draped in the usual sterile fashion. All elements of maximal barrier technique were utilized. Under ultrasound guidance, access into the right lower quadrant was obtained, via the paracentesis catheter system and direct ultrasound guidanc e. Approximately 15.5 liters of straw-colored fluid was removed. The patient was stable throughout the p rocedure and remained stable upon discharge from Department of Radiology. IMPRESSION: Successful therapeutic paracentesis under ultrasound guidance.
--- NOTE | 2017-08-05 18:33 | HP ---
HISTORY AND PHYSICAL CHIEF COMPLAINT: Abdominal pain and ascites. HISTORY OF PRESENT ILLNESS: This is a readmission for this 51-year-old poor lady who has intractable ascites and abdominal pain secondary to hepatitis C, alcoholism and intractable ascites. She also has breast cancer, which is untreated. She was in several days ago to be tapped, but it could be done, so she went home. REVIEW OF SYSTEMS: She is not having any vomiting, but she is having increasing pain. She is still eating. She has some mild dependent edema. Past medical history, family history, and personal and social histories are all otherwise unremarkable and unchanged and noncontributory. She takes Lasix, spironolactone and a significant amount of Vicodin. PHYSICAL EXAMINATION: Blood pressure is 96/64 with a pulse of 61, respirations of 35, and she is afebrile. In general she appeared to be chronically ill, dehydrated and depressed. Head, ears, eyes, nose, mouth and throat were normal. Lymph nodes were not enlarged. Ears were clear. Chest was clear. There were occasional rales. Cardiac exam was normal sinus rhythm. The abdomen was very protuberant, and she is generally slightly tender. Bowel sounds were present. She had no umbilical hernia. EXTREMITIES: Normal. Neurologically she was intact. She is admitted to the hospital with the diagnoses: 1. Hepatitis C with secondary cirrhosis and intractable ascites. 2. Carcinoma of the breast. 3. Major depression. 4. Malnutrition. PLAN: 1. Bed rest. 2. IV fluids. 3. Paracentesis. 4. Analgesia. MMIVELISSE / NESTORN: [id number] /
[2017-08-05] MEDS: SOFOSBUVIR PO SCH (23:49)
[2017-08-05] MEDS: VELPATASVIR PO SCH (23:49)
[2017-08-06] MEDS: MORPHINE ORAL SOLN 10 MG/5 ML CUP PO PRN ×3 (01:41→15:36)
[2017-08-06] MEDS: HYDROcodone/APAP 7.5-325MG 1 EACH TAB PO PRN ×2 (04:52→11:16)
[2017-08-06] MEDS: SODIUM CHLORIDE 0.9% 1,000 ML IV SCH (05:53)
[2017-08-06] MEDS: VELPATASVIR PO SCH (09:05)
[2017-08-06] MEDS: SOFOSBUVIR PO SCH (09:05)
[2017-08-06] MEDS: PANTOPRAZOLE 40 MG TABLET PO SCH (09:06)
[2017-08-06] MEDS: FUROSEMIDE 40 MG TAB PO SCH (09:06)
[2017-08-06] MEDS: SPIRONOLACTONE 25 MG TAB PO SCH (09:06)
[2017-08-06 09:13] VITALS: BP 95/50; PULSE 95; RESP 18; TEMP 98.6
[2017-08-06 09:38] LABS: ALT 18 U/L (9-52); AST 30 U/L (14-36); Albumin 1.9 g/dL (3.5-5.0); Alkaline Phosphatase 100 U/L (38-126); Anion Gap 6 mmol/L; Blood Urea Nitrogen 18 mg/dL (7-17); Calcium 7.2 mg/dL (8.4-10.2); Carbon Dioxide 23 mmol/L (22-30); Chloride 106 mmol/L (98-107); Glucose 93 mg/dL (74-99); Potassium 3.4 mmol/L (3.5-5.1); Sodium 135 mmol/L (137-145); Total Bilirubin 0.6 mg/dL (0.2-1.3); Total Protein 4.7 g/dL (6.3-8.2)
[2017-08-06 10:01] LABS: Basophils % (A) 0 %; Eosinophils # (A) 0.1 k/uL (0-0.7); Eosinophils % (A) 5 %; HCT 22.3 % (34.0-46.0); Lymphocytes # (A) 0.4 k/uL (1.0-4.8); Lymphocytes % (A) 20 %; MCH 34.2 pg (25.0-35.0); MCHC 32.8 g/dL (31.0-37.0); MCV 104.1 fL (80.0-100.0); Macrocytosis Slight; Monocytes # (A) 0.2 k/uL (0-1.0); Monocytes % (A) 8 %; Neutrophils # (A) 1.3 k/uL (1.3-7.7); Neutrophils % (A) 63 %; Poikilocytosis Slight; RBC 2.14 m/uL (3.80-5.40); RDW 14.3 % (11.5-15.5); WBC 2.1 k/uL (3.8-10.6)
[2017-08-06 10:07] LABS: HGB 7.3 gm/dL (11.4-16.0); Platelet Count 80 k/uL (150-450)
--- NOTE | 2017-08-06 15:19 | DS ---
DISCHARGE SUMMARY CHIEF COMPLAINT: Abdominal pain and ascites. HISTORY OF PRESENT ILLNESS AND PHYSICAL EXAM: Details of this lady's history and physical can be found in the initial workup. LABORATORY STUDIES: While she was in a hospital she had laboratory studies details which can be found laboratory section of her chart. COURSE IN HOSPITAL: After admission he was placed on bedrest, started on intravenous fluids and she was seen by Interventional Radiology and underwent paracentesis after which she had significant relief of her abdominal distention, pain, shortness of breath, and it was felt that she could go home on the . She will be prescribed Vicodin 10 mg q.i.d. p.r.n. for 4 or 5 days until she can come to the office for followup. FINAL DIAGNOSES: 1. Intractable abdominal pain. 2. Intractable ascites. 3. Hepatitis C. 4. Cirrhosis. 5. Carcinoma of the breast. 6. Depression. OPERATIONS: Paracentesis. CONSULTATION: Interventional Radiology. She is improved. MMODL / IJN: [id number] /
== END 2017-08-06 17:35 | disposition home or self-care (01) ==
LOC: EC 23:33 → 5ONC 08-05 01:24 → 5MS5E 08-05 03:31
PROVIDERS: ADMIT Family Medicine; ATTEND Family Medicine
DX: R18.8 Other ascites (principal); B19.20 Unspecified viral hepatitis C without hepatic coma; C50.919 Malignant neoplasm of unspecified site of unspecified female breast; K21.9 Gastro-esophageal reflux disease without esophagitis; K74.60 Unspecified cirrhosis of liver; D61.818 Other pancytopenia; F41.9 Anxiety disorder, unspecified; I10 Essential (primary) hypertension; F17.210 Nicotine dependence, cigarettes, uncomplicated; F10.20 Alcohol dependence, uncomplicated; F32.9 Major depressive disorder, single episode, unspecified; E46 Unspecified protein-calorie malnutrition; Z68.24 Body mass index [BMI] 24.0-24.9, adult; Z79.899 Other long term (current) drug therapy; H91.92 Unspecified hearing loss, left ear; Z98.84 Bariatric surgery status; Z92.21 Personal history of antineoplastic chemotherapy; Z82.49 Family history of ischemic heart disease and other diseases of the circulatory system; Z80.1 Family history of malignant neoplasm of trachea, bronchus and lung
CPT/HCPCS: 99285; 96361 ×3; 96375 ×3; 96376; 96365; 96366; 36415; 80053 ×2; 82140; 82150; 83690; 85025 ×2; 85610; 81003; 74018; 49083; G0378 ×2; J2270; P9047; J1642

== ENCOUNTER 2017-08-13 10:54 | Observation (INO) | payer MEDICARE, OTHER ==
[2017-08-13] MEDS ORDERED: MORPHINE SULFATE 4 MG/ML SYRINGE IV STA (12:15)
--- NOTE | 2017-08-13 12:24 | ED ---
General Adult HPI - General Chief complaint: Abdominal Pain Stated complaint: abdominal pain Time Seen by Provider: 08/13/17 12:15 Source: patient, RN notes reviewed, old records reviewed Mode of arrival: wheelchair Limitations: no limitations - History of Present Illness Initial comments: This is a 51-year-old female the ER for evaluation of severe bowel pain. Patient is well-known to this emergency room in ER for recurrent complaints of liver failure, ascites, patient does have tense ascites terse, patient currently was severe abdominal pain mild nausea no vomiting. Patient denies any fevers, no cough or congestion or chest pain. No other complaints - Related Data Home Medications Medication Instructions Recorded Confirmed Omeprazole 20 mg PO DAILY 07/31/17 08/05/17 Sofosbuvir/Velpatasvir [[place] 1 each PO DAILY 08/05/17 08/05/17 400 mg-100 mg Tablet] Previous Rx's Medication Instructions Recorded Furosemide [Lasix] 40 mg PO DAILY #30 tablet 08/01/17 HYDROcodone/APAP 7.5-325MG [[place] 1 tab PO Q4H PRN #8 tab 08/01/17 7.5-325] Spironolactone [Aldactone] 50 mg PO DAILY #30 tab 08/01/17 traMADol HCL [Ultram] 50 mg PO Q4HR PRN #21 tab 08/01/17 Allergies Allergy/AdvReac Type Severity Reaction Status Date / Time No Known Allergies Allergy Verified 08/13/17 11:02 Review of Systems ROS Statement: Those systems with pertinent positive or pertinent negative responses have been documented in the HPI. ROS Other: All systems not noted in ROS Statement are negative. Past Medical History Past Medical History: Cancer, GERD/Reflux, GI Bleed, Hearing Disorder / Deafness , Hypertension, Liver Disease Additional Past Medical History / Comment(s): Hepatitis C, ascities, cirrhosis, pancytopenia, vertigo; "benign abd mass", states has had esophageal banding, lt breast cancer had chemo last on 09-12-16-did not tolerate-completed only 3 cycles- then it was stopped, lt ear hearing loss, multiple upper GI bleeds. History of Any Multi-Drug Resistant Organisms: None Reported Past Surgical History: Adenoidectomy, Tonsillectomy Additional Past Surgical History / Comment(s): Paracentesises, EGD, esophageal banding, rt chest mediport 5-3-17, l breast bx. Past Anesthesia/Blood Transfusion Reactions: No Reported Reaction Additional Past Anesthesia/Blood Transfusion Reaction / Comment(s): blood transfusions- no reaction Past Psychological History: Anxiety Smoking Status: Current every day smoker Past Alcohol Use History: None Reported Past Drug Use History: None Reported - Past Family History Mother Family Medical History: Cancer Additional Family Medical History / Comment(s): of lung ca at the age of 59yrs. She was a smoker. Father Family Medical History: Myocardial Infarction ([place]) Additional Family Medical History / Comment(s): from 2nd heart attack at the age of 59yrs. General Exam - General Exam Comments Initial Comments: Patient has significant abdominal bloating and pain Limitations: no limitations General appearance: alert, in no apparent distress Head exam: Present: atraumatic, normocephalic, normal inspection Eye exam: Present: normal appearance, PERRL, EOMI. Absent: scleral icterus, conjunctival injection, periorbital swelling ENT exam: Present: normal exam, mucous membranes moist Neck exam: Present: normal inspection. Absent: tenderness, meningismus, lymphadenopathy Respiratory exam: Present: normal lung sounds bilaterally. Absent: respiratory distress, wheezes, rales, rhonchi, stridor Cardiovascular Exam: Present: regular rate, normal rhythm, normal heart sounds. Absent: systolic murmur, diastolic murmur, rubs, gallop, clicks GI/Abdominal exam: Present: soft, normal bowel sounds. Absent: distended, tenderness, guarding, rebound, rigid Extremities exam: Present: normal inspection, full ROM, normal capillary refill. Absent: tenderness, pedal edema, joint swelling, calf tenderness Back exam: Present: normal inspection Neurological exam: Present: alert, oriented X3, CN II-XII intact Psychiatric exam: Present: normal affect, normal mood Skin exam: Present: warm, dry, intact, normal color. Absent: rash Course Vital Signs 08/13/17 10:59 Temperature 98.5 F Pulse Rate 88 Respiratory 20 Rate Blood Pressure 117/59 O2 Sat by Pulse 100 Oximetry - Reevaluation(s) Reevaluation #1: 08/13/17 12:23 Patient's medical records thoroughly reviewed Medical Decision Making - Medical Decision Making 51 female the ER for evaluation, tense abdominal ascites secondary to cirrhosis from Pepcid. Patient be admitted for therapeutic paracentesis Disposition Clinical Impression: Ascites, Cirrhosis, Abdominal pain Disposition: ADMITTED IP TO THIS HOSP Condition: Fair Referrals: Mark Estrada MD [Primary Care Provider] - 1-2 days
[2017-08-13] MEDS ORDERED: MORPHINE SULFATE 4 MG/ML SYRINGE IVP PRN (12:31)
[2017-08-13] MEDS ORDERED: ONDANSETRON 4 MG/2 ML VIAL IVP PRN (12:31)
[2017-08-13 12:57] LABS: Basophils % (A) 0 %; Eosinophils # (A) 0.1 k/uL (0-0.7); Eosinophils % (A) 3 %; HCT 25.3 % (34.0-46.0); HGB 8.3 gm/dL (11.4-16.0); Lymphocytes # (A) 0.5 k/uL (1.0-4.8); Lymphocytes % (A) 19 %; MCH 33.2 pg (25.0-35.0); MCHC 32.9 g/dL (31.0-37.0); MCV 100.9 fL (80.0-100.0); Macrocytosis Slight; Mean Platelet Volume 8.4; Monocytes # (A) 0.3 k/uL (0-1.0); Monocytes % (A) 11 %; Neutrophils # (A) 1.5 k/uL (1.3-7.7); Neutrophils % (A) 64 %; Poikilocytosis Slight; RBC 2.51 m/uL (3.80-5.40); RDW 14.3 % (11.5-15.5); WBC 2.4 k/uL (3.8-10.6)
[2017-08-13 12:58] LABS: INR 1.2 (<1.2); Platelet Count 81 k/uL (150-450); Prothrombin Time 11.3 sec (9.0-12.0)
[2017-08-13 13:03] LABS: ALT 26 U/L (9-52); AST 36 U/L (14-36); Albumin 2.2 g/dL (3.5-5.0); Alkaline Phosphatase 115 U/L (38-126); Amylase 37 U/L (30-110); Anion Gap 7 mmol/L; Blood Urea Nitrogen 15 mg/dL (7-17); Calcium 7.9 mg/dL (8.4-10.2); Carbon Dioxide 22 mmol/L (22-30); Chloride 106 mmol/L (98-107); Glucose 104 mg/dL (74-99); Lipase 130 U/L (23-300); Potassium 3.8 mmol/L (3.5-5.1); Sodium 135 mmol/L (137-145); Total Protein 5.5 g/dL (6.3-8.2)
[2017-08-13] MEDS ORDERED: LIDOCAINE (PF) 10 MG/ML 2 ML VIAL SQ STA (13:31)
[2017-08-13] MEDS: ALBUMIN HUMAN 25% 50 ML in EMPTY BAG 1 BAG IVPB SCH ×5 (14:13→18:13)
--- NOTE | 2017-08-13 15:42 | US ---
Therapeutic paracentesis. DATE OF EXAM: 08/13/2017 CLINICAL HISTORY: Ascites The procedure was discussed with the patient. The risks, complications, benefits, and alternatives we re discussed and any questions were answered. Informed consent was obtained. The patient was placed s upine on the ultrasound table and prepped and draped in the usual sterile fashion. All elements of maximal barrier technique were utilized. Under ultrasound guidance, access into the right lower quadrant was obtained, via the paracentesis catheter system and direct ultrasound guidanc e. Approximately 11.2 liters of straw-colored fluid was removed. The patient was stable throughout the p rocedure and remained stable upon discharge from Department of Radiology. IMPRESSION: Successful therapeutic paracentesis under ultrasound guidance.
[2017-08-13] MEDS ORDERED: HYDROcodone/APAP 7.5-325MG 1 EACH TAB PO PRN (16:19)
--- NOTE | 2017-08-13 20:44 | HP ---
HISTORY AND PHYSICAL CHIEF COMPLAINT: Abdominal pain and distention with ascites. HISTORY OF PRESENT ILLNESS: This is another admission for this lady who just went home last week. She is coming in almost weekly now for paracentesis and about 11 L of fluid is being obtained each time. She became tightly distended and her abdominal pain increased and she came to the emergency room. REVIEW OF SYSTEMS: She has had has no new symptoms including neurologic problems, shortness of breath, cough, hemoptysis, chest pain, vomiting or diarrhea, etc. Past medical history, family history, personal and social histories are all otherwise unremarkable or unchanged or noncontributory. PHYSICAL EXAMINATION: Blood pressure is 97/55 with a pulse of 80, respirations of 34 and she is afebrile. In general, she appeared to be chronically ill, pale and uncomfortable. Head, ears, eyes, nose, mouth, and throat were unremarkable. Chest is clear. Cardiac exam is normal. The abdomen was hugely distended and tight as well as tender due to her ascites. Extremities are normal with poor muscle bulk. Neurologically is intact. IMPRESSION: 1. Intractable ascites. 2. Cirrhosis. 3. Hepatitis C. 4. Alcoholism. 5. Carcinoma of the breast. PLAN: 1. Bed rest. 2. IV fluids. 3. Resume her analgesics. 4. Interventional radiology consult for paracentesis. MMODL / IJN: [id number] /
[2017-08-13] MEDS: HYDROcodone/APAP 7.5-325MG 1 EACH TAB PO PRN (21:34)
[2017-08-14 04:42] VITALS: TEMP 98.9
[2017-08-14 08:00] VITALS: PULSE 84; RESP 18
[2017-08-14] MEDS: FUROSEMIDE 40 MG TAB PO SCH ×2 (08:42→11:56)
[2017-08-14] MEDS: SPIRONOLACTONE 25 MG TAB PO SCH ×2 (08:43→11:56)
[2017-08-14] MEDS ORDERED: MORPHINE ORAL SOLN 10 MG/5 ML CUP PO PRN (10:36)
[2017-08-14 10:44] VITALS: BP 112/57
[2017-08-14] MEDS: HYDROcodone/APAP 7.5-325MG 1 EACH TAB PO PRN (13:05)
[2017-08-14] MEDS ORDERED: PANTOPRAZOLE 40 MG TABLET PO PRN (13:07)
--- NOTE | 2017-08-14 21:48 | DS ---
DISCHARGE SUMMARY CHIEF COMPLAINT: Ascites. HISTORY OF PRESENT ILLNESS AND PHYSICAL EXAMINATION: The details of this lady's history and physical can be found in the initial workup. LABORATORY STUDIES: While she was in the hospital she had laboratory studies, details of which can be found in the laboratory section of her chart. COURSE IN THE HOSPITAL: After admission she was placed on bedrest and started on intravenous fluids and taken for paracentesis. She did well, and it was felt that she could go home the next day. She will go home on her usual activity, diet and medications and follow up in the office. She rarely comes in. FINAL DIAGNOSES: 1. Intractable ascites. 2. Hepatitis C with cirrhosis. 3. Carcinoma of the breast. OPERATIONS: Paracentesis. CONSULTATIONS: Interventional Radiology. She is improved. MMODL / NESTORN: [id number] /
--- NOTE | 2017-08-14 21:48 | HP ---
HISTORY AND PHYSICAL CHIEF COMPLAINT: Abdominal pain and intractable ascites. HISTORY OF PRESENT ILLNESS: This is another admission for this 51-year-old white female. She is coming here almost weekly now for paracentesis which is secondary to her hepatitis C and cirrhosis. REVIEW OF SYSTEMS: She has had no neurologic changes, problems with vision or hearing, cough, hemoptysis, chest pain, melena, hematochezia, hematuria, frequency, urgency, diabetes, etc. Past medical history, family history, personal and social histories are all otherwise unremarkable or noncontributory and unchanged. She is on diuretics and she takes Vicodin for pain. PHYSICAL EXAMINATION: Blood pressure is 90/65 with a pulse of 80, respirations of 35 and she is afebrile. GENERAL: She appears to be dehydrated, malnourished and chronically ill in appearance. Head, ears, eyes, nose, mouth, and throat were otherwise normal. Chest demonstrated occasional rales at the bases. Cardiac demonstrated sinus tachycardia and the abdomen was massively protuberant, firm and tender. Bowel sounds cannot be heard. Extremities were normal except for very poor muscle bulk. She is admitted to the hospital with diagnoses: 1. Intractable ascites. 2. Hepatitis C with cirrhosis. 3. Carcinoma of the breast. PLAN: 1. Bed rest. 2. IV fluids. 3. Consult with Interventional Radiology. MMODL / IJN: [id number] /
== END 2017-08-14 16:00 | disposition home or self-care (01) ==
LOC: EC 10:54 → 3OBS 12:38
PROVIDERS: ADMIT Family Medicine; ATTEND Family Medicine
DX: B19.20 Unspecified viral hepatitis C without hepatic coma (principal); R18.8 Other ascites; K74.60 Unspecified cirrhosis of liver; E86.0 Dehydration; K21.9 Gastro-esophageal reflux disease without esophagitis; H91.90 Unspecified hearing loss, unspecified ear; C50.912 Malignant neoplasm of unspecified site of left female breast; D61.818 Other pancytopenia; I10 Essential (primary) hypertension; F41.9 Anxiety disorder, unspecified; F17.200 Nicotine dependence, unspecified, uncomplicated; E46 Unspecified protein-calorie malnutrition; F10.20 Alcohol dependence, uncomplicated; Z79.899 Other long term (current) drug therapy; Z92.21 Personal history of antineoplastic chemotherapy; Z80.1 Family history of malignant neoplasm of trachea, bronchus and lung; Z82.49 Family history of ischemic heart disease and other diseases of the circulatory system; Z81.2 Family history of tobacco abuse and dependence
CPT/HCPCS: 99285 ×2; 96375 ×3; 36415; 80053; 82150; 83690; 85025; 85610; 96365; 49083; G0378 ×2; J2270; J2001; J2405; P9047; J1642

== ENCOUNTER 2017-08-20 08:08 | Day surgery (SDC) | payer MEDICARE, OTHER ==
[2017-08-20 09:08] VITALS: TEMP 98.5
[2017-08-20 09:09] LABS: Mean Platelet Volume 9.2
[2017-08-20 09:17] LABS: INR 1.2 (<1.2); Prothrombin Time 11.2 sec (9.0-12.0)
[2017-08-20 09:22] LABS: Platelet Count 68 k/uL (150-450)
[2017-08-20] MEDS ORDERED: LIDOCAINE 1% INJ 10MG/ML (20 ML MDV) SQ ONE (09:47)
[2017-08-20 09:53] VITALS: RESP 14
[2017-08-20] MEDS: ALBUMIN HUMAN 25% 50 ML in EMPTY BAG 1 BAG IVPB SCH ×4 (10:02→10:39)
--- NOTE | 2017-08-20 10:37 | US ---
Therapeutic paracentesis. DATE OF EXAM: 08/20/2017 CLINICAL HISTORY: Ascites The procedure was discussed with the patient. The risks, complications, benefits, and alternatives we re discussed and any questions were answered. Informed consent was obtained. The patient was placed s upine on the ultrasound table and prepped and draped in the usual sterile fashion. All elements of maximal barrier technique were utilized. Under ultrasound guidance, access into the right lower quadrant was obtained, via the paracentesis catheter system and direct ultrasound guidanc e. Approximately 8.6 liters of straw-colored fluid was removed. The patient was stable throughout the pr ocedure and remained stable upon discharge from Department of Radiology. IMPRESSION: Successful therapeutic paracentesis under ultrasound guidance.
[2017-08-20 11:23] VITALS: BP 87/48; PULSE 89
== END 2017-08-20 11:50 | disposition home or self-care (01) ==
LOC: RADPROMAIN 08:08
PROVIDERS: ATTEND Family Medicine
DX: R18.8 Other ascites (principal); K74.60 Unspecified cirrhosis of liver
CPT/HCPCS: 82565; 85049; 85610; 96365; 49083; J2001; P9047

== ENCOUNTER 2017-08-27 12:24 | Day surgery (SDC) | payer MEDICARE, OTHER ==
[2017-08-27 12:55] VITALS: RESP 16; TEMP 98.4
[2017-08-27] MEDS ORDERED: LIDOCAINE 1% INJ 10MG/ML (20 ML MDV) SQ ONE (12:58)
[2017-08-27 13:10] LABS: Mean Platelet Volume 8.5
[2017-08-27 13:12] LABS: Platelet Count 93 k/uL (150-450)
[2017-08-27 13:17] LABS: INR 1.2 (<1.2); Partial Thromboplastin Time 36.6 sec (22.0-30.0); Prothrombin Time 11.2 sec (9.0-12.0)
[2017-08-27] MEDS: ALBUMIN HUMAN 25% 50 ML in EMPTY BAG 1 BAG IVPB SCH ×4 (13:37→14:29)
[2017-08-27 14:30] VITALS: BP 99/55; PULSE 89
--- NOTE | 2017-08-27 15:55 | US ---
EXAMINATION TYPE: US paracentesis abd w/image DATE OF EXAM: 08/27/2017 COMPARISON: NONE HISTORY: Ascites. PROCEDURE: Maximal barrier technique was utilized. The skin overlying a suitable pocket of fluid was localized with ultrasound and the overlying skin was prepped and draped. Ultrasound was utilized with sterile technique. Lidocaine was used for local anesthesia and a skin adela made with a scalpel. Catheter was advanced under direct ultrasound guidance into a suitable pocket of fluid and approximately 712 liter s of serous fluid were removed. Catheter was withdrawn and hemostasis achieved. There is no immedia te complication; the patient is discharged in stable condition. IMPRESSION: STATUS POST ULTRASOUND GUIDED PARACENTESIS FOR PALLIATION OF ASCITES. THIS PROCEDURE WA S PERFORMED BY THE UNDERSIGNED.
== END 2017-08-27 14:50 | disposition home or self-care (01) ==
LOC: RADPROMAIN 12:24
PROVIDERS: ATTEND Family Medicine
DX: R18.8 Other ascites (principal); K74.60 Unspecified cirrhosis of liver
CPT/HCPCS: 84520; 85049; 85610; 85730; 96365; 49083; J2001; P9047; J1642

== ENCOUNTER 2017-09-01 13:27 | Inpatient (IN) | payer MEDICARE, OTHER ==
[2017-09-01] MEDS ORDERED: SODIUM CHLORIDE 0.9% 500 ML IV STA (13:49)
[2017-09-01] MEDS ORDERED: fentaNYL (PF) 50 MCG/ML 2 ML AMP IV STA (13:58)
--- NOTE | 2017-09-01 14:01 | ED ---
General Adult HPI - General Chief complaint: Abdominal Pain Stated complaint: Abdominal pain Time Seen by Provider: 09/01/17 13:41 Source: patient, RN notes reviewed, old records reviewed Mode of arrival: wheelchair Limitations: physical limitation - History of Present Illness Initial comments: 51-year-old female with history of hepatitis C, and liver disease presents for evaluation of upper abdominal pain. Pain is been present for the past 2 days. She describes it as severe epigastric and periumbilical abdominal pain. She has had nausea and vomiting. She does have chronic abdominal pain however she states this pain is different and significantly worse than her normal pain. She states she did have a fever yesterday evening. Fever was measured at 101. Patient denies any chest pain or dyspnea. She has had some lower extremity swelling which is chronic. - Related Data Home Medications Medication Instructions Recorded Confirmed Omeprazole 20 mg PO DAILY PRN 07/31/17 09/01/17 HYDROcodone/APAP 7.5-325MG [[place] 1 tab PO Q4H PRN 09/01/17 09/01/17 7.5-325] Previous Rx's Medication Instructions Recorded Furosemide [Lasix] 40 mg PO DAILY #30 tablet 08/01/17 Spironolactone [Aldactone] 50 mg PO DAILY #30 tab 08/01/17 traMADol HCL [Ultram] 50 mg PO Q4HR PRN #21 tab 08/01/17 Allergies Allergy/AdvReac Type Severity Reaction Status Date / Time No Known Allergies Allergy Verified 09/01/17 14:28 Review of Systems ROS Statement: Those systems with pertinent positive or pertinent negative responses have been documented in the HPI. ROS Other: All systems not noted in ROS Statement are negative. Past Medical History Past Medical History: Cancer, GERD/Reflux, GI Bleed, Hearing Disorder / Deafness , Hypertension, Liver Disease Additional Past Medical History / Comment(s): Hepatitis C, ascities, cirrhosis, pancytopenia, vertigo; "benign abd mass", states has had esophageal banding, lt breast cancer had chemo last on 09-12-16-did not tolerate-completed only 3 cycles- then it was stopped, lt ear hearing loss, multiple upper GI bleeds. History of Any Multi-Drug Resistant Organisms: None Reported Past Surgical History: Adenoidectomy, Tonsillectomy Additional Past Surgical History / Comment(s): multiple Paracentesises, EGD, esophageal banding, rt chest mediport 08-06-16, l breast bx. Past Anesthesia/Blood Transfusion Reactions: No Reported Reaction Additional Past Anesthesia/Blood Transfusion Reaction / Comment(s): blood transfusions- no reaction Past Psychological History: Anxiety Smoking Status: Current every day smoker Past Alcohol Use History: None Reported Past Drug Use History: None Reported - Past Family History Mother Family Medical History: Cancer Additional Family Medical History / Comment(s): of lung ca at the age of 59yrs. She was a smoker. Father Family Medical History: Myocardial Infarction ([place]) Additional Family Medical History / Comment(s): from 2nd heart attack at the age of 59yrs. General Exam Limitations: physical limitation General appearance: alert, in distress Head exam: Present: atraumatic, normocephalic Eye exam: Present: normal appearance, PERRL, EOMI Neck exam: Present: normal inspection. Absent: tenderness, meningismus Respiratory exam: Present: normal lung sounds bilaterally. Absent: respiratory distress, wheezes Cardiovascular Exam: Present: normal rhythm, bradycardia GI/Abdominal exam: Present: distended, tenderness. Absent: guarding, rebound Extremities exam: Present: pedal edema Neurological exam: Present: alert, oriented X3, CN II-XII intact. Absent: motor sensory deficit Skin exam: Present: warm, dry, intact. Absent: cyanosis, diaphoretic Course Vital Signs 09/01/17 09/01/17 09/01/17 13:32 13:50 14:10 Temperature 97.5 F L Pulse Rate 50 L 98 Respiratory 22 18 Rate Blood Pressure 75/41 86/47 92/54 O2 Sat by Pulse 100 96 Oximetry 09/01/17 15:06 Temperature Pulse Rate 72 Respiratory 20 Rate Blood Pressure 110/61 O2 Sat by Pulse 99 Oximetry EKG Findings - EKG Comments: EKG Findings:: EKG: Sinus bradycardia with short TX interval, no ST segment elevation or anything to signs of ischemia. Rate of 51, TX interval 96, QRS duration 78, QTC 453 Medical Decision Making - Medical Decision Making 51-year-old female with abdominal pain. Pain is epigastric in nature. Last paracentesis was [address] is obtained because the patient states this pain is significantly different from her chronic abdominal pain. CT shows ascites with no acute process. Laboratory studies reveal stable hemoglobin from baseline. White blood cell count 3.2. Ammonia is normal. Total bili is high although the patient has had elevated bilirubin in the past. This may be worsening liver failure. Albumin 2.3. Urinalysis is pending. Patient will be admitted for treatment of her pain, likely paracentesis will be required. Gastroenterology will be placed on consult. - Lab Data Result diagrams: 09/01/17 13:50 09/01/17 13:50 Lab Results 09/01/17 09/01/17 09/01/17 Range/Units 13:50 13:50 13:50 WBC 3.2 L (3.8-10.6) k/uL RBC 2.56 L (3.80-5.40) m/uL Hgb 8.9 L (11.4-16.0) gm/dL Hct 26.9 L (34.0-46.0) % MCV 104.9 H (80.0-100.0) fL MCH 34.8 (25.0-35.0) pg MCHC 33.2 (31.0-37.0) g/dL RDW 15.0 (11.5-15.5) % Plt Count 83 L (150-450) k/uL Neutrophils % 86 % Lymphocytes % 6 % Monocytes % 6 % Eosinophils % 1 % Basophils % 0 % Neutrophils # 2.7 (1.3-7.7) k/uL Lymphocytes # 0.2 L (1.0-4.8) k/uL Monocytes # 0.2 (0-1.0) k/uL Eosinophils # 0.0 (0-0.7) k/uL Basophils # 0.0 (0-0.2) k/uL Hypochromasia Slight Macrocytosis Moderate PT (9.0-12.0) sec INR (<1.2) APTT (22.0-30.0) sec Sodium 133 L (137-145) mmol/L Potassium 4.3 (3.5-5.1) mmol/L Chloride 105 (98-107) mmol/L Carbon Dioxide 19 L (22-30) mmol/L Anion Gap 9 mmol/L BUN 19 H (7-17) mg/dL Creatinine 0.78 (0.52-1.04) mg/dL Est GFR (CKD-EPI)AfAm >90 (>60 ml/min/1.73 sqM) Est GFR (CKD-EPI)NonAf 88 (>60 ml/min/1.73 sqM) Glucose 94 (74-99) mg/dL Calcium 8.0 L (8.4-10.2) mg/dL Total Bilirubin 6.0 H (0.2-1.3) mg/dL AST 65 H (14-36) U/L ALT 38 (9-52) U/L Alkaline Phosphatase 179 H (38-126) U/L Ammonia 29 (<30) umol/L Total Protein 5.4 L (6.3-8.2) g/dL Albumin 2.3 L (3.5-5.0) g/dL Amylase 36 (30-110) U/L Lipase 55 (23-300) U/L / Range/Units 13:50 WBC (3.8-10.6) k/uL RBC (3.80-5.40) m/uL Hgb (11.4-16.0) gm/dL Hct (34.0-46.0) % MCV (80.0-100.0) fL MCH (25.0-35.0) pg MCHC (31.0-37.0) g/dL RDW (11.5-15.5) % Plt Count (150-450) k/uL Neutrophils % % Lymphocytes % % Monocytes % % Eosinophils % % Basophils % % Neutrophils # (1.3-7.7) k/uL Lymphocytes # (1.0-4.8) k/uL Monocytes # (0-1.0) k/uL Eosinophils # (0-0.7) k/uL Basophils # (0-0.2) k/uL Hypochromasia Macrocytosis PT 12.0 (9.0-12.0) sec INR 1.3 H (<1.2) APTT 38.0 H (22.0-30.0) sec Sodium (137-145) mmol/L Potassium (3.5-5.1) mmol/L Chloride (98-107) mmol/L Carbon Dioxide (22-30) mmol/L Anion Gap mmol/L BUN (7-17) mg/dL Creatinine (0.52-1.04) mg/dL Est GFR (CKD-EPI)AfAm (>60 ml/min/1.73 sqM) Est GFR (CKD-EPI)NonAf (>60 ml/min/1.73 sqM) Glucose (74-99) mg/dL Calcium (8.4-10.2) mg/dL Total Bilirubin (0.2-1.3) mg/dL AST (14-36) U/L ALT (9-52) U/L Alkaline Phosphatase (38-126) U/L Ammonia (<30) umol/L Total Protein (6.3-8.2) g/dL Albumin (3.5-5.0) g/dL Amylase (30-110) U/L Lipase (23-300) U/L Disposition Clinical Impression: Hepatitis C, Ascites of liver, Intractable abdominal pain, Cirrhosis Disposition: ADMITTED IP TO THIS [facility] Condition: Serious Is patient prescribed a controlled substance at d/c from ED?: No Referrals: Mark Estrada MD [Primary Care Provider] - 1-2 days Decision Date: 09/01/17 Decision Time: 16:00
[2017-09-01 14:08] LABS: Basophils % (A) 0 %; Eosinophils % (A) 1 %; HCT 26.9 % (34.0-46.0); HGB 8.9 gm/dL (11.4-16.0); Hypochromasia Slight; Lymphocytes # (A) 0.2 k/uL (1.0-4.8); Lymphocytes % (A) 6 %; MCH 34.8 pg (25.0-35.0); MCHC 33.2 g/dL (31.0-37.0); MCV 104.9 fL (80.0-100.0); Macrocytosis Moderate; Mean Platelet Volume 8.5; Monocytes # (A) 0.2 k/uL (0-1.0); Monocytes % (A) 6 %; Neutrophils # (A) 2.7 k/uL (1.3-7.7); Neutrophils % (A) 86 %; RBC 2.56 m/uL (3.80-5.40); WBC 3.2 k/uL (3.8-10.6)
[2017-09-01 14:12] LABS: Platelet Count 83 k/uL (150-450)
[2017-09-01 14:16] LABS: INR 1.3 (<1.2)
[2017-09-01 14:36] LABS: ALT 38 U/L (9-52); AST 65 U/L (14-36); Albumin 2.3 g/dL (3.5-5.0); Alkaline Phosphatase 179 U/L (38-126); Amylase 36 U/L (30-110); Anion Gap 9 mmol/L; Blood Urea Nitrogen 19 mg/dL (7-17); Carbon Dioxide 19 mmol/L (22-30); Chloride 105 mmol/L (98-107); Glucose 94 mg/dL (74-99); Lipase 55 U/L (23-300); Potassium 4.3 mmol/L (3.5-5.1); Sodium 133 mmol/L (137-145); Total Protein 5.4 g/dL (6.3-8.2)
[2017-09-01] MEDS ORDERED: MORPHINE SULFATE 4 MG/ML SYRINGE IVP STA (15:01)
--- NOTE | 2017-09-01 15:08 | CT ---
EXAMINATION TYPE: CT abdomen pelvis wo con DATE OF EXAM: 09/01/2017 HISTORY: Severe abdominal pain since yesterday, history of breast cancer. History of recurrent ascit es as well as cirrhosis. CT DLP: 711.4 mGycm. Automated Exposure Control for Dose Reduction was Utilized. TECHNIQUE: CT scan of the abdomen and pelvis is performed without oral or IV contrast. COMPARISON: CT chest abdomen and pelvis July 16, 2017 FINDINGS: Within the limitations of a non-contrast study, the following observations are made. LUNG BASES: There is partial visualization of right-sided Mediport tip in right atrium on current [place] dy. LIVER/GB: Heterogeneous small sized liver is redemonstrated. Dependent density in gallbladder could r eflect small stones and/or gallbladder sludge. PANCREAS: No significant abnormality is seen. SPLEEN: Splenomegaly remains present and felt stable. ADRENALS: No significant abnormality is seen. KIDNEYS: No significant abnormality is seen. BOWEL: Evaluation of bowel is suboptimal secondary to lack of enteric contrast. There is no suspiciou s small or large bowel dilatation. Mild wall thickening proximal small bowel loops upper to midabdome n are felt present. Finding may be product of underlying liver disease or failure. GENITAL ORGANS: No gross abnormality seen. LYMPH NODES: No greater than 1cm abdominal or pelvic lymph nodes are appreciated. OSSEOUS STRUCTURES: No significant abnormality is seen. OTHER: Severe abdominal and pelvic ascites is again seen more prominent versus most recent CT. Mild t o moderate diffuse subcutaneous edema is present, this is improved from prior. IMPRESSION: Recurrent large amount of abdominal and pelvic ascites. Patient has paracentesis roughly weekly since beginning of August. No significant new or unexpected finding identified.
[2017-09-01] MEDS ORDERED: MORPHINE SULFATE 4 MG/ML SYRINGE IV PRN (15:46)
[2017-09-01] MEDS ORDERED: NALOXONE 0.4 MG/ML 1 ML VIAL IV PRN (15:46)
[2017-09-01] MEDS: SODIUM CHLORIDE 0.9% 1,000 ML IV SCH (16:49)
[2017-09-01] MEDS ORDERED: PANTOPRAZOLE 40 MG TABLET PO PRN (18:10)
[2017-09-01] MEDS ORDERED: ACETAMINOPHEN TAB 325 MG TAB PO PRN (21:13)
--- NOTE | 2017-09-01 21:42 | HP ---
HISTORY AND PHYSICAL CHIEF COMPLAINT: Abdominal pain and distention. HISTORY OF PRESENT ILLNESS: This is another recent admission for this 51-year-old white female with hepatitis C, alcoholism, cirrhosis and intractable ascites. She also has CA of the left breast. She is back in again with recurrent abdominal pain and distention. REVIEW OF SYSTEMS: She has had no fever, chills, vomiting, etc. Past medical history, family history, personal and social histories are all unchanged. PHYSICAL EXAMINATION: Blood pressure is 96/70 with a pulse of 83, respirations of 41, and she is afebrile. In general, she appeared to be chronically ill. Skin was dry. Head, ears, eyes, nose, mouth and throat demonstrated dry mucous membranes. Chest demonstrated breath sounds on both sides with scattered rales. The cardiac demonstrated sinus tachycardia and the abdomen was grossly protuberant and distended. It was hard and tender, particularly in the upper abdomen. Bowel sounds were heard. Extremities demonstrated muscle wasting. Neurologically, she is intact. IMPRESSION: 1. Intractable abdominal pain, ascites, cirrhosis, all due to the alcoholism and hepatitis C. 2. Carcinoma of the breast. PLAN: 1. Bed rest. 2. IV fluids. 3. Analgesics. 4. Consult Interventional Radiology. MMODL / IJN: [id number] /
[2017-09-01] MEDS: ONDANSETRON 4 MG/2 ML VIAL IVP PRN (22:23)
[2017-09-01] MEDS: HYDROcodone/APAP 10-325MG 1 EACH TAB PO PRN (22:32)
[2017-09-02 07:02] LABS: Albumin 1.9 g/dL (3.5-5.0); Calcium 7.4 mg/dL (8.4-10.2); Magnesium 1.7 mg/dL (1.6-2.3); Phosphorus 4.8 mg/dL (2.5-4.5); Potassium 4.2 mmol/L (3.5-5.1); Total Bilirubin 6.4 mg/dL (0.2-1.3); Total Protein 4.6 g/dL (6.3-8.2)
[2017-09-02 07:05] LABS: Anisocytosis Slight; HCT 24.4 % (34.0-46.0); HGB 7.6 gm/dL (11.4-16.0); Hypochromasia Marked; MCH 33.7 pg (25.0-35.0); MCV 108.7 fL (80.0-100.0); Macrocytosis Marked; Mean Platelet Volume 9.8; Platelet Count 47 k/uL (150-450); RBC 2.25 m/uL (3.80-5.40); RDW 16.2 % (11.5-15.5); WBC 4.7 k/uL (3.8-10.6)
[2017-09-02 07:42] LABS: Glucose,Whole Blood 69 mg/dL (75-99)
[2017-09-02 08:11] LABS: Glucose,Whole Blood 52 mg/dL (75-99)
[2017-09-02] MEDS ORDERED: DEXTROSE 50%-WATER 50 ML SYRINGE IVP ONE (08:19)
[2017-09-02 08:39] LABS: Glucose,Whole Blood 98 mg/dL (75-99)
[2017-09-02] MEDS ORDERED: SPIRONOLACTONE 25 MG TAB PO SCH (09:00)
[2017-09-02] MEDS ORDERED: FUROSEMIDE 40 MG TAB PO SCH (09:00)
[2017-09-02 09:10] LABS: Band Neutrophils % 14 %; Lymphocytes # (M) 0.14 k/uL (1.0-4.8); Metamyelocytes # (M) 0.05 k/uL (0); Metamyelocytes % 1 %; Monocytes # (M) 0.28 k/uL (0-1.0); Neutrophils % (M) 77 %; Nucleated Red Blood Cells 0 /100 WBC (0-0); Total Cells Counted 200; Toxic Granulation Present; Toxic Vacuolation Present
[2017-09-02 09:11] LABS: Poikilocytosis (M) Present
--- NOTE | 2017-09-02 09:12 | P.CONS ---
History of Present Illness - Reason for Consult Consult date: 09/02/17 Peritonitis - History of Present Illness 51-year-old female who has multiple medical troubles that includes her triple negative breast carcinoma and her chronic active hepatitis C with cirrhosis and chronic refractory ascites that has required multiple admissions and multiple paracentesis. She has beem treated with Epculusa for her hepatitis C. She continues to have cirrhosis with her significant and refractory ascites that has required multiple paracentesis and is up to almost weekly paracentesis. Last one was done on August 27. Patient presented to [facility] emergency center with complaints of upper abdominal pain in epigastric and periumbilical areas with nausea and vomiting and fever of 101. CAT scan of the abdomen and pelvis showed recurrent large amount of abdominal pelvic fluid. No new or unexpected findings. She is found to have a temperature max of 102.4 with hypotension, white count 3.2, platelet count 83 and hemoglobin 8.9. Creatinine 0.78. Lactic acid was 3.4. Blood sugar 53. Total bilirubin is now 6.4, AST 65, ALT 38, alkaline phosphatase 179, albumin is 1.9. Patient was initially admitted to the floor and then transferred to the intensive care unit due to lactic acidosis and hypotension. She is not on vasopressors. Blood pressures are being obtained from her thigh. Patient denies any abdominal pain at the time of my eval. She is very vague gives limited information. Consult in place with Dr. Gerard for intensive care management and Dr. Joseph. Blood culture is showing gram-negative bacilli. She does have a previous positive blood culture in July with staff [place]. Review of Systems All systems: negative Constitutional: Reports anorexia, Reports chills, Reports fatigue, Reports fever , Reports lethargy, Reports malaise, Reports poor appetite, Reports weakness Eyes: denies blurred vision, denies pain Ears, nose, mouth and throat: Reports headache, Denies sore throat Cardiovascular: Denies chest pain, Denies lightheadedness, Denies shortness of breath, Denies syncope Respiratory: Denies cough, Denies cough with sputum, Denies dyspnea, Denies excessive sputum, Denies hemoptysis, Denies home oxygen, Denies wheezing Gastrointestinal: Reports abdominal pain, Reports loss of appetite, Reports nausea, Reports vomiting, Denies diarrhea Genitourinary: Denies dysuria, Denies hematuria Musculoskeletal: Denies myalgias Integumentary: Denies pruritus, Denies rash Neurological: Denies numbness, Denies weakness Psychiatric: Denies anxiety, Denies depression Endocrine: Denies fatigue, Denies weight change Past Medical History Past Medical History: Cancer, GERD/Reflux, GI Bleed, Hearing Disorder / Deafness , Hypertension, Liver Disease Additional Past Medical History / Comment(s): Hepatitis C, ascities, cirrhosis, pancytopenia, vertigo; "benign abd mass", states has had esophageal banding, lt breast cancer had chemo last on 09-12-16-did not tolerate-completed only 3 cycles- then it was stopped, lt ear hearing loss, multiple upper GI bleeds. History of Any Multi-Drug Resistant Organisms: None Reported Past Surgical History: Adenoidectomy, Tonsillectomy Additional Past Surgical History / Comment(s): multiple Paracentesises, EGD, esophageal banding, rt chest mediport 08-06-16, l breast bx. Past Anesthesia/Blood Transfusion Reactions: No Reported Reaction Additional Past Anesthesia/Blood Transfusion Reaction / Comm: blood transfusions - no reaction Past Psychological History: Anxiety Additional Psychological History / Comment(s): Has a history of hepatitis C with esophageal variceal bleeds requiring banding several years ago. denies any drug use. No experience. No international travel. No animal exposures. pt's son lives with her.2 story home 1 front step. pt's bathroom and bedroom on 2nd floor so pt now has a hospital bed and bsc on first floor Smoking Status: Current every day smoker Past Alcohol Use History: None Reported Additional Past Alcohol Use History / Comment(s): pt started smoking at age 13 smoked 1/2 ppd but more recently stated only smoking 1-3 cig per day Pt states she has never been a drinker. Past Drug Use History: None Reported - Past Family History Mother Family Medical History: Cancer Additional Family Medical History / Comment(s): of lung ca at the age of 59yrs. She was a smoker. Father Family Medical History: Myocardial Infarction ([place]) Additional Family Medical History / Comment(s): from 2nd heart attack at the age of 59yrs. Medications and Allergies Home Medications Medication Instructions Recorded Confirmed Type Omeprazole 20 mg PO DAILY PRN 07/31/17 09/01/17 History Furosemide [Lasix] 40 mg PO DAILY #30 tablet 08/01/17 09/01/17 Rx Spironolactone [Aldactone] 50 mg PO DAILY #30 tab 08/01/17 09/01/17 Rx traMADol HCL [Ultram] 50 mg PO Q4HR PRN #21 tab 08/01/17 09/01/17 Rx HYDROcodone/APAP 7.5-325MG [[place] 1 tab PO Q4H PRN 09/01/17 09/01/17 History 7.5-325] Allergies Allergy/AdvReac Type Severity Reaction Status Date / Time No Known Allergies Allergy Verified 09/01/17 14:28 Physical Exam Vitals: Vital Signs Temp Pulse Pulse Resp BP BP Pulse Ox 09/02/17 08:30 94 77/38 85 L 09/02/17 08:00 92 90/41 95 09/02/17 07:30 94 77/40 95 09/02/17 07:10 95 73/39 93 L 09/02/17 07:00 98.5 F 96 14 73/39 93 L 09/02/17 06:50 97 14 80/44 93 L 09/02/17 06:40 97 16 80/44 93 L 09/02/17 06:30 97 15 80/44 93 L 09/02/17 06:20 100 15 72/42 94 L 09/02/17 06:10 99 15 72/42 91 L 09/02/17 06:00 98.9 F 97 15 78/46 93 L 09/02/17 05:59 97 69/34 93 L 09/02/17 05:20 65/47 09/02/17 05:16 73/47 09/02/17 05:00 70/47 09/02/17 04:55 79/41 09/02/17 04:50 75/49 09/02/17 04:45 72/44 09/02/17 04:40 75/42 09/02/17 04:35 71/41 09/02/17 04:30 99.8 F H 97 18 62/30 96 09/02/17 04:00 97 18 09/02/17 00:30 101.6 F H 09/02/17 00:00 102.4 F H 103 H 18 105/54 95 09/01/17 20:00 98.8 F 100 18 94/45 97 09/01/17 17:09 79 18 97/49 96 09/01/17 15:54 98.8 F 78 20 99/55 100 09/01/17 15:06 72 20 110/61 99 09/01/17 14:10 98 18 92/54 96 09/01/17 13:50 86/47 09/01/17 13:32 97.5 F L 50 L 22 75/41 100 Intake and Output 09/01/17 09/02/17 09/02/17 22:59 06:59 14:59 Intake Total 600 575 Balance 600 575 Intake: IV 575 Sodium Chloride 0.9% 1, 75 000 ml @ 75 mls/hr IV . [id number] RAFAEL Rx#:[id number] Sodium Chloride 0.9% 500 500 ml @ 999 mls/hr IV .Q31M STA Rx#:[id number] Intake, IV Titration 600 Amount Sodium Chloride 0.9% 1, 600 000 ml @ 75 mls/hr IV . [id number] RAFAEL Rx#:[id number] Other: Voiding Method Toilet Toilet # Voids 0 Weight 72.121 kg Gen: This is a thin cachectic appearing female 51 years old. She is lying in the ICU bed and appears to be comfortable. She has a hat over her eyes and refuses to have exam of her face and eyes. Patient is crying out in pain to minimal stimuli. She has blood pressure cuff on her right thigh for which she yells to have it removed. LUNGS: Clear to auscultation. No wheezes or rhonchi. No intercostal retractions. HEART: Patient refused. Port to the right upper anterior chest wall is tender to light touch. Patient appears to be hypersensitive. ABDOMEN: Soft. Distended and. Positive ascites. Bowel sounds are present. No tenderness. EXTREMITIES: +1 pedal edema. Dorsalis pedis +2 bilaterally. NEUROLOGICAL: Patient is awake, alert and oriented x3. Results Results: Laboratory Results WBC 4.7 k/uL (3.8-10.6) 09/02/17 04:25 RBC 2.25 m/uL (3.80-5.40) L 09/02/17 04:25 Hgb 7.6 gm/dL (11.4-16.0) L 09/02/17 04:25 Hct 24.4 % (34.0-46.0) L 09/02/17 04:25 MCV 108.7 fL (80.0-100.0) H 09/02/17 04:25 MCH 33.7 pg (25.0-35.0) 09/02/17 04:25 MCHC 31.0 g/dL (31.0-37.0) 09/02/17 04:25 RDW 16.2 % (11.5-15.5) H 09/02/17 04:25 Plt Count 83 k/uL (150-450) L 09/01/17 13:50 Neutrophils % 86 % 09/01/17 13:50 Lymphocytes % 6 % 09/01/17 13:50 Monocytes % 6 % 09/01/17 13:50 Eosinophils % 1 % 09/01/17 13:50 Basophils % 0 % 09/01/17 13:50 Neutrophils # 2.7 k/uL (1.3-7.7) 09/01/17 13:50 Lymphocytes # 0.2 k/uL (1.0-4.8) L 09/01/17 13:50 Monocytes # 0.2 k/uL (0-1.0) 09/01/17 13:50 Eosinophils # 0.0 k/uL (0-0.7) 09/01/17 13:50 Basophils # 0.0 k/uL (0-0.2) 09/01/17 13:50 Hypochromasia Slight 09/01/17 13:50 Macrocytosis Moderate 09/01/17 13:50 PT 12.0 sec (9.0-12.0) 09/01/17 13:50 INR 1.3 (<1.2) H 09/01/17 13:50 APTT 38.0 sec (22.0-30.0) H 09/01/17 13:50 Sodium 135 mmol/L (137-145) L 09/02/17 04:25 Potassium 4.2 mmol/L (3.5-5.1) 09/02/17 04:25 Chloride 108 mmol/L (98-107) H 09/02/17 04:25 Carbon Dioxide 16 mmol/L (22-30) L 09/02/17 04:25 Anion Gap 11 mmol/L 09/02/17 04:25 BUN 22 mg/dL (7-17) H 09/02/17 04:25 Creatinine 1.21 mg/dL (0.52-1.04) H 09/02/17 04:25 Est GFR (CKD-EPI)AfAm 60 (>60 ml/min/1.73 sqM) 09/02/17 04:25 Est GFR (CKD-EPI)NonAf 52 (>60 ml/min/1.73 sqM) 09/02/17 04:25 Glucose 53 mg/dL (74-99) L 09/02/17 04:25 POC Glucose (mg/dL) 98 mg/dL (75-99) 09/02/17 08:37 POC Glu Leasing Property Manager ID Osvaldo Almendarez 09/02/17 08:37 Lactic Ac Sepsis Rflx Y 09/02/17 05:18 Plasma Lactic Acid Darrius 3.4 mmol/L (0.7-2.0) H* 09/02/17 04:25 Calcium 7.4 mg/dL (8.4-10.2) L 09/02/17 04:25 Phosphorus 4.8 mg/dL (2.5-4.5) H 09/02/17 04:25 Magnesium 1.7 mg/dL (1.6-2.3) 09/02/17 04:25 Total Bilirubin 6.4 mg/dL (0.2-1.3) H 09/02/17 04:25 AST 65 U/L (14-36) H 09/02/17 04:25 ALT 34 U/L (9-52) 09/02/17 04:25 Alkaline Phosphatase 124 U/L (38-126) 09/02/17 04:25 Ammonia 29 umol/L (<30) 09/01/17 13:50 Total Protein 4.6 g/dL (6.3-8.2) L 09/02/17 04:25 Albumin 1.9 g/dL (3.5-5.0) L 09/02/17 04:25 Amylase 36 U/L (30-110) 09/01/17 13:50 Lipase 55 U/L (23-300) 09/01/17 13:50 CBC & Chem 7: 09/02/17 04:25 09/02/17 04:25 Labs: Abnormal Lab Results - Last 24 Hours (Table) 09/01/17 09/01/17 09/01/17 Range/Units 13:50 13:50 13:50 WBC 3.2 L (3.8-10.6) k/uL RBC 2.56 L (3.80-5.40) m/uL Hgb 8.9 L (11.4-16.0) gm/dL Hct 26.9 L (34.0-46.0) % MCV 104.9 H (80.0-100.0) fL RDW (11.5-15.5) % Plt Count 83 L (150-450) k/uL Lymphocytes # 0.2 L (1.0-4.8) k/uL INR 1.3 H (<1.2) APTT 38.0 H (22.0-30.0) sec Sodium 133 L (137-145) mmol/L Chloride (98-107) mmol/L Carbon Dioxide 19 L (22-30) mmol/L BUN 19 H (7-17) mg/dL Creatinine (0.52-1.04) mg/dL Glucose (74-99) mg/dL POC Glucose (mg/dL) (75-99) mg/dL Plasma Lactic Acid Darrius (0.7-2.0) mmol/L Calcium 8.0 L (8.4-10.2) mg/dL Phosphorus (2.5-4.5) mg/dL Total Bilirubin 6.0 H (0.2-1.3) mg/dL AST 65 H (14-36) U/L Alkaline Phosphatase 179 H (38-126) U/L Total Protein 5.4 L (6.3-8.2) g/dL Albumin 2.3 L (3.5-5.0) g/dL 09/02/17 09/02/17 09/02/17 Range/Units 04:25 04:25 04:25 WBC (3.8-10.6) k/uL RBC 2.25 L (3.80-5.40) m/uL Hgb 7.6 L (11.4-16.0) gm/dL Hct 24.4 L (34.0-46.0) % MCV 108.7 H (80.0-100.0) fL RDW 16.2 H (11.5-15.5) % Plt Count (150-450) k/uL Lymphocytes # (1.0-4.8) k/uL INR (<1.2) APTT (22.0-30.0) sec Sodium 135 L (137-145) mmol/L Chloride 108 H (98-107) mmol/L Carbon Dioxide 16 L (22-30) mmol/L BUN 22 H (7-17) mg/dL Creatinine 1.21 H (0.52-1.04) mg/dL Glucose 53 L (74-99) mg/dL POC Glucose (mg/dL) (75-99) mg/dL Plasma Lactic Acid Darrius 3.4 H* (0.7-2.0) mmol/L Calcium 7.4 L (8.4-10.2) mg/dL Phosphorus 4.8 H (2.5-4.5) mg/dL Total Bilirubin 6.4 H (0.2-1.3) mg/dL AST 65 H (14-36) U/L Alkaline Phosphatase (38-126) U/L Total Protein 4.6 L (6.3-8.2) g/dL Albumin 1.9 L (3.5-5.0) g/dL 09/02/17 09/02/17 Range/Units 07:41 08:08 WBC (3.8-10.6) k/uL RBC (3.80-5.40) m/uL Hgb (11.4-16.0) gm/dL Hct (34.0-46.0) % MCV (80.0-100.0) fL RDW (11.5-15.5) % Plt Count (150-450) k/uL Lymphocytes # (1.0-4.8) k/uL INR (<1.2) APTT (22.0-30.0) sec Sodium (137-145) mmol/L Chloride (98-107) mmol/L Carbon Dioxide (22-30) mmol/L BUN (7-17) mg/dL Creatinine (0.52-1.04) mg/dL Glucose (74-99) mg/dL POC Glucose (mg/dL) 69 L 52 L (75-99) mg/dL Plasma Lactic Acid Darrius (0.7-2.0) mmol/L Calcium (8.4-10.2) mg/dL Phosphorus (2.5-4.5) mg/dL Total Bilirubin (0.2-1.3) mg/dL AST (14-36) U/L Alkaline Phosphatase (38-126) U/L Total Protein (6.3-8.2) g/dL Albumin (3.5-5.0) g/dL Microbiology - Last 24 Hours (Table) 09/01/17 19:02 Blood Culture Gram Stain - Preliminary Blood 09/01/17 19:02 Blood Culture - Final Blood Assessment and Plan Plan: This is a 51-year-old female with past medical history significant for cirrhosis of the liver secondary to hepatitis C and refractory ascites requiring multiple paracentesis. Patient presents with signs of sepsis most likely secondary to peritonitis with gram-negative bacteremia. She has been started on Rocephin 2 g daily. Patient is scheduled for paracentesis which will also ask for cultures to be obtained. Continue supportive care. Further recommendations as patient progresses. The above dictated assessment and findings were discussed with Dr. Jacobson. The impression and plan of care have been directed as dictated. Lea Friedman nurse practitioner acting as scribe for Dr. Jacobson.
[2017-09-02] MEDS ORDERED: DEXTROSE 5%-0.45% NACL 1,000 ML IV SCH (09:15)
[2017-09-02] MEDS ORDERED: ALBUMIN HUMAN 5% 500 ML in EMPTY BAG 1 BAG IVPB STA (09:43)
--- NOTE | 2017-09-02 10:06 | XR ---
EXAMINATION TYPE: XR chest 1V DATE OF EXAM: 09/02/2017 COMPARISON: Prior chest 06/05/2017 HISTORY: Fever, lactic acidosis TECHNIQUE: Single frontal view of the chest is obtained. FINDINGS: The patient is rotated, exam is expiratory. Right-sided Port-A-Cath shows the distal tip ov erlying the right atrium. No evident pneumothorax or pleural effusion. Exam is expiratory. Patchy bas ilar density is present. Cardiomediastinal silhouette, pulmonary vascularity and dre are stable. IMPRESSION: Expiratory rotated exam. There may be basilar atelectasis, pneumonia not excluded, follo w-up as indicated.
[2017-09-02 10:16] LABS: Glucose,Whole Blood 117 mg/dL (75-99)
[2017-09-02] MEDS: DEXTROSE 5%-0.9% NACL 1,000 ML IV SCH ×2 (10:21→22:25)
[2017-09-02 10:26] LABS: Ammonia <9 umol/L (<30)
[2017-09-02 10:28] LABS: Lactic Acid, Venous 3.2 mmol/L (0.7-2.0)
[2017-09-02] MEDS: cefTRIAXone IN SWFI 2,000 MG/20 ML SYRINGE IVP SCH (10:43)
[2017-09-02] MEDS: NOREPINEPHRIN 4 MG-0.9% NS PMX 4 MG/250 ML ML IV SCH ×2 (10:53→16:14)
[2017-09-02 13:54] LABS: Glucose,Whole Blood 135 mg/dL (75-99)
[2017-09-02 14:05] LABS: INR 1.5 (<1.2); Prothrombin Time 13.7 sec (9.0-12.0)
--- NOTE | 2017-09-02 14:44 | P.CNPUL ---
History of Present Illness Consult date: 09/02/17 Chief complaint: Liver cirrhosis, hypotension, fever History of present illness: A 51-year-old female patient with previous history of liver cirrhosis secondary to chronic hepatitis C with stigmata of liver failure with chronic ascites requiring multiple paracentesis almost on a weekly basis. The last paracentesis was done as patient was on 08/27/2018. The patient came into the emergency department complaining of abdominal pain which was periumbilical and somewhat in epigastric area in addition to some nausea vomiting and a temperature of 101. CAT scan of the abdomen and pelvis was done in the emergency department and showed large amount of abdominal and pelvic fluid consistent with liver cirrhosis. Otherwise no other new abnormalities was noted. The patient continued to spike temperature and subsequently she became hypotensive with blood sugars running in the mid 80s. She also developed some mild lactic acidosis with level of 3.4 and a blood sugar was as low as 53. At that point, the patient got moved to the intensive care unit for further evaluation. The preliminary blood cultures showing gram-negative bacillus. The patient is currently on IV Rocephin 2 g every 24 hours. Overnight the patient was given fluids, 1 L bolus and she was placed on 0.9 and subsequently switched to D5 half-normal as the patient was having episodes of hypoglycemia at the rate of 150 mL an hour. At the time of my evaluation this morning, the patient's systolic blood pressure was in the mid 80s with a mean arterial pressure of 53. Her urine output was low and she denied passing any urine output since morning and the patient also declined to have a Calderon catheter inserted. The patient has a Mediport with seems to be clean and intact on surface. The patient had a soft abdomen. Immediately a TENS unit of ascitic fluid was aspirated and it was sent for culture to rule out possibility of spontaneous bacteria peritonitis. No melena. No diarrhea. No nausea or vomiting. She is lethargic yet she is arousable. No evidence of any GI bleeding. No confusion. No altered mentation. No skin rashes. No wounds or ulcers or sores at this point in time. The patient has liver cirrhosis and pancytopenia and chronic ascites related to liver cirrhosis. The patient has had previous esophageal banding. She also has history of breast cancer and she had her last chemotherapy back in October 2016 which she didn't tolerate and the chemotherapy regimen following that was reduced only to 3 cycles and was stopped. The patient has had previous history of upper GI bleeds. Review of Systems Constitutional: Reports fatigue, Reports fever, Reports lethargy, Reports malaise, Reports weakness Eyes: denies blurred vision, denies bulging eye, denies decreased vision Ears: deny: decreased hearing, ear discharge, earache, tinnitus Ears, nose, mouth and throat: Denies headache, Denies sore throat Cardiovascular: Reports dyspnea on exertion, Reports shortness of breath Respiratory: Denies cough Gastrointestinal: Reports as per HPI, Reports abdominal pain, Reports nausea Genitourinary: Denies dysuria, Denies hematuria Musculoskeletal: Denies myalgias Musculoskeletal: bilateral: ankle swelling, absent: ankle pain, ankle stiffness Integumentary: Denies pruritus, Denies rash Neurological: Reports balance difficulties, Reports weakness Psychiatric: Denies anxiety, Denies depression Endocrine: Reports fatigue, Reports low blood sugars, Denies weight change Hematologic/Lymphatic: Reports as per HPI Allergic/Immunologic: Reports as per HPI Past Medical History Past Medical History: Cancer, GERD/Reflux, GI Bleed, Hearing Disorder / Deafness , Hypertension, Liver Disease Additional Past Medical History / Comment(s): Hepatitis C, ascities, cirrhosis, pancytopenia, vertigo; "benign abd mass", states has had esophageal banding, lt breast cancer had chemo last on 09-12-16-did not tolerate-completed only 3 cycles- then it was stopped, lt ear hearing loss, multiple upper GI bleeds. History of Any Multi-Drug Resistant Organisms: None Reported Past Surgical History: Adenoidectomy, Tonsillectomy Additional Past Surgical History / Comment(s): multiple Paracentesises, EGD, esophageal banding, rt chest mediport 08-06-16, l breast bx. Past Anesthesia/Blood Transfusion Reactions: No Reported Reaction Additional Past Anesthesia/Blood Transfusion Reaction / Comment(s): blood transfusions- no reaction Past Psychological History: Anxiety Additional Psychological History / Comment(s): Has a history of hepatitis C with esophageal variceal bleeds requiring banding several years ago. denies any drug use. No experience. No international travel. No animal exposures. pt's son lives with her.2 story home 1 front step. pt's bathroom and bedroom on 2nd floor so pt now has a hospital bed and bsc on first floor Smoking Status: Current every day smoker Past Alcohol Use History: None Reported Additional Past Alcohol Use History / Comment(s): pt started smoking at age 13 smoked 1/2 ppd but more recently stated only smoking 1-3 cig per day Pt states she has never been a drinker. Past Drug Use History: None Reported - Past Family History Mother Family Medical History: Cancer Additional Family Medical History / Comment(s): of lung ca at the age of 59yrs. She was a smoker. Father Family Medical History: Myocardial Infarction ([place]) Additional Family Medical History / Comment(s): from 2nd heart attack at the age of 59yrs. Medications and Allergies Home Medications Medication Instructions Recorded Confirmed Type Omeprazole 20 mg PO DAILY PRN 07/31/17 09/01/17 History Furosemide [Lasix] 40 mg PO DAILY #30 tablet 08/01/17 09/01/17 Rx Spironolactone [Aldactone] 50 mg PO DAILY #30 tab 08/01/17 09/01/17 Rx traMADol HCL [Ultram] 50 mg PO Q4HR PRN #21 tab 08/01/17 09/01/17 Rx HYDROcodone/APAP 7.5-325MG [[place] 1 tab PO Q4H PRN 09/01/17 09/01/17 History 7.5-325] Allergies Allergy/AdvReac Type Severity Reaction Status Date / Time No Known Allergies Allergy Verified 09/01/17 14:28 Physical Exam Vitals: Vital Signs Temp Pulse Pulse Resp BP BP Pulse Ox 09/02/17 13:00 68 21 128/53 97 09/02/17 12:00 98.3 F 70 24 81/35 98 09/02/17 11:00 79 19 74/32 100 09/02/17 10:00 86 94/47 97 09/02/17 09:00 90 79/34 98 09/02/17 08:30 94 77/38 85 L 09/02/17 08:00 98.6 F 92 80 90/41 95 09/02/17 07:30 94 77/40 95 09/02/17 07:10 95 73/39 93 L 09/02/17 07:00 98.5 F 96 14 73/39 93 L 09/02/17 06:50 97 14 80/44 93 L 09/02/17 06:40 97 16 80/44 93 L 09/02/17 06:30 97 15 80/44 93 L 09/02/17 06:20 100 15 72/42 94 L 09/02/17 06:10 99 15 72/42 91 L 09/02/17 06:00 98.9 F 97 15 78/46 93 L 09/02/17 05:59 97 69/34 93 L 09/02/17 05:20 65/47 09/02/17 05:16 73/47 09/02/17 05:00 70/47 09/02/17 04:55 79/41 09/02/17 04:50 75/49 09/02/17 04:45 72/44 09/02/17 04:40 75/42 09/02/17 04:35 71/41 09/02/17 04:30 99.8 F H 97 18 62/30 96 09/02/17 04:00 97 18 09/02/17 00:30 101.6 F H 09/02/17 00:00 102.4 F H 103 H 18 105/54 95 09/01/17 20:00 98.8 F 100 18 94/45 97 09/01/17 17:09 79 18 97/49 96 09/01/17 15:54 98.8 F 78 20 99/55 100 09/01/17 15:06 72 20 110/61 99 Intake and Output 09/01/17 09/02/17 09/02/17 22:59 06:59 14:59 Intake Total 600 1162.626 Output Total 0 Balance 600 1162.626 Intake: IV 1125 Dextrose 5%-0.9% NaCl 1, 475 000 ml @ 100 mls/hr IV . Q10H RAFAEL Rx#:[id number] Sodium Chloride 0.9% 1, 150 000 ml @ 75 mls/hr IV . [id number] RAFAEL Rx#:[id number] Sodium Chloride 0.9% 500 500 ml @ 999 mls/hr IV .Q31M STA Rx#:[id number] Intake, IV Titration 600 37.626 Amount Norepinephrin 4 mg-0.9% 37.626 Ns Pmx 4 mg In 250 ml @ Titrate IV .Q0M RAFAEL Rx#: [id number] Sodium Chloride 0.9% 1, 600 000 ml @ 75 mls/hr IV . [id number] RAFAEL Rx#:[id number] Output: Urine 0 Other: Voiding Method Toilet Toilet Bedpan # Voids 0 Weight 72.121 kg 72.121 kg Results - Laboratory Findings CBC and BMP: 09/02/17 04:25 09/02/17 04:25 PT/INR, D-dimer PT 13.7 sec (9.0-12.0) H 09/02/17 10:05 INR 1.5 (<1.2) H 09/02/17 10:05 Abnormal lab findings: Abnormal Labs 09/01/17 09/01/17 09/01/17 13:50 13:50 13:50 WBC 3.2 L RBC 2.56 L Hgb 8.9 L Hct 26.9 L MCV 104.9 H RDW Plt Count 83 L Lymphocytes # 0.2 L Lymphocytes # (Manual) Metamyelocytes # (Man) PT INR 1.3 H APTT 38.0 H Sodium 133 L Chloride Carbon Dioxide 19 L BUN 19 H Creatinine Glucose POC Glucose (mg/dL) Plasma Lactic Acid Darrius Calcium 8.0 L Phosphorus Total Bilirubin 6.0 H AST 65 H Alkaline Phosphatase 179 H Total Protein 5.4 L Albumin 2.3 L 09/02/17 09/02/17 09/02/17 04:25 04:25 04:25 WBC RBC 2.25 L Hgb 7.6 L Hct 24.4 L MCV 108.7 H RDW 16.2 H Plt Count 47 L* Lymphocytes # Lymphocytes # (Manual) 0.14 L Metamyelocytes # (Man) 0.05 H PT INR APTT Sodium 135 L Chloride 108 H Carbon Dioxide 16 L BUN 22 H Creatinine 1.21 H Glucose 53 L POC Glucose (mg/dL) Plasma Lactic Acid Darrius 3.4 H* Calcium 7.4 L Phosphorus 4.8 H Total Bilirubin 6.4 H AST 65 H Alkaline Phosphatase Total Protein 4.6 L Albumin 1.9 L 09/02/17 09/02/17 09/02/17 07:41 08:08 10:05 WBC RBC Hgb Hct MCV RDW Plt Count Lymphocytes # Lymphocytes # (Manual) Metamyelocytes # (Man) PT INR APTT Sodium Chloride Carbon Dioxide BUN Creatinine Glucose POC Glucose (mg/dL) 69 L 52 L Plasma Lactic Acid Darrius 3.2 H* Calcium Phosphorus Total Bilirubin AST Alkaline Phosphatase Total Protein Albumin 09/02/17 09/02/17 09/02/17 10:05 10:13 13:51 WBC RBC Hgb Hct MCV RDW Plt Count Lymphocytes # Lymphocytes # (Manual) Metamyelocytes # (Man) PT 13.7 H INR 1.5 H APTT Sodium Chloride Carbon Dioxide BUN Creatinine Glucose POC Glucose (mg/dL) 117 H 135 H Plasma Lactic Acid Darrius Calcium Phosphorus Total Bilirubin AST Alkaline Phosphatase Total Protein Albumin - Diagnostic Findings Chest x-ray: image reviewed Assessment and Plan Plan: Assessment 1 acute septic shock secondary to a gram-negative infection. Suspect spontaneous bacterial peritonitis. Other possibilities include line infections 2 acute hypotension secondary to above and the patient is currently resuscitated IV fluids. Patient was started on IV Rocephin 2 g every 24 hours. Patient was given boluses of IV fluids and he will be receiving IV albumin to a total of 500 mL of 5% and pressors if needed. Meanwhile the septic workup is in progress and the blood cultures will be repeated and urinalysis and urine culture be also done 3 liver cirrhosis 4 hepatitis C 5 chronic ascites requiring periodic paracentesis almost on a weekly basis 6 coagulopathy and chronic thrombocytopenia related to alcoholism and liver cirrhosis 7 breast cancer status post systemic chemotherapy 8 previous episodes of upper GI bleed secondary to portal hypertension and esophageal varices 9 chronic anemia 10 acid reflux 11 hypertension, history of 12 hypoproteinemia and albuminemia secondary to above 13 mild lactic acidosis secondary to above, improving Plan We'll resuscitated patient with crystalloids and colloids. Continue D5 normal saline at rate of 100 mL an hour. Monitor the blood sugar and avoid hypoglycemia. Give a total of 500 mL of 5% albumin. Awaiting final cultures and sensitivities. Meanwhile, continue with Rocephin 2 g every 24 hours regarding the septic shock. Repeat blood cultures. Obtain urine analysis and urine cultures. Ascitic fluid was sent for analysis and culture. Watch for any signs of hepatic encephalopathy. The current ammonia level is less than 9. IV Protonix. Compression devices to lower oximetry for DVT prophylaxis. Hold Lasix. Hold Aldactone. We'll continue to follow.
[2017-09-02] MEDS: HYDROcodone/APAP 10-325MG 1 EACH TAB PO PRN ×2 (15:38→22:27)
[2017-09-02 16:26] LABS: Appearance,BF Hazy; Color,BF Orange
[2017-09-02 16:27] LABS: Nucleated Cells, Body Fluid 50 /uL; RBC, Body Fluid 6300 /uL
[2017-09-02 16:29] LABS: Mononuclear WBC,Body Fluid 6 %; Polynuclear WBC,Body Fluid 94 %; Total Cells Counted,Body Fluid 100
[2017-09-02] MEDS: SODIUM CHLORIDE 0.9% 1,000 ML IV SCH (17:27)
[2017-09-02] MEDS: HYDROmorphone 0.5 MG/0.5 ML SYRINGE IVP PRN (18:20)
[2017-09-02 18:51] LABS: Glucose,Whole Blood 135 mg/dL (75-99)
[2017-09-02 18:59] LABS: Amorphous Sediment,Urine Rare /hpf; Appearance,Urine Cloudy (Clear); Bacteria,Urine Many /hpf; Bilirubin,Urine 3+ (Negative); Blood,Urine Negative (Negative); Color,Urine Dark Brown; Glucose,Urine (UA) Negative (Negative); Hyaline Casts,Urine 26 /lpf (0-2); Ketones,Urine Trace (Negative); Leukocyte Esterase,Urine Moderate (Negative); Mucus,Urine Few /hpf; Nitrite,Urine Negative (Negative); Protein,Urine 1+ (Negative); RBC,Urine 7 /hpf (0-5); Specific Gravity,Urine 1.023 (1.001-1.035); Squamous Epithelial Cell,Urine 6 /hpf (0-4); WBC,Urine 22 /hpf (0-5)
--- NOTE | 2017-09-02 20:16 | PN ---
PROGRESS NOTE DATE OF SERVICE: 09/02/2017 CHIEF COMPLAINT: Abdominal pain. HISTORY OF PRESENT ILLNESS: This lady's abdominal pain has continued to be fairly severe. She has grown out gram- negative organisms from her blood culture. PHYSICAL EXAM: Abdomen is distended, tight and tender throughout with rebound. Bowel sounds are not heard. Chest is clear. Cardiac is normal. IMPRESSION: 1. Abdominal pain. 2. Probable peritonitis. 3. Hepatitis C with cirrhosis and ascites. PLAN: Await further evaluation from Infectious Disease, but antibiotics have been started. MMODL / IJN: [id number] /
--- NOTE | 2017-09-02 22:21 | P.CON ---
Consult Note - . Consult date: 09/02/17 Assessment/Plan:: 51-year-old female who has multiple medical troubles that includes her triple negative breast carcinoma and her chronic active hepatitis C with cirrhosis and chronic refractory ascites that has required multiple admissions and multiple paracentesis. She has beem treated with Epculusa for her hepatitis C. She continues to have cirrhosis with her significant and refractory ascites that has required multiple paracentesis and is up to almost weekly paracentesis. Last one was done on August 27. Patient presented to [facility] emergency center with complaints of upper abdominal pain in epigastric and periumbilical areas with nausea and vomiting and fever of 101. CAT scan of the abdomen and pelvis showed recurrent large amount of abdominal pelvic fluid. No new or unexpected findings. She is found to have a temperature max of 102.4 with hypotension, white count 3.2, platelet count 83 and hemoglobin 8.9. Creatinine 0.78. Lactic acid was 3.4. Blood sugar 53. Total bilirubin is now 6.4, AST 65, ALT 38, alkaline phosphatase 179, albumin is 1.9. Patient was initially admitted to the floor and then transferred to the intensive care unit due to lactic acidosis and hypotension. She is not on vasopressors. Blood pressures are being obtained from her thigh. Patient denies any abdominal pain at the time of my eval. She is very vague gives limited information. Consult in place with Dr. Gerard for intensive care management and Dr. Joseph. Blood culture is showing gram-negative bacilli. She does have a previous positive blood culture in July with staff epidermidis. Please see the consult note is dictated by nurse practitioner Mrs. Lea Friedman. The patient is receiving a high-volume paracentesis and she seems to be tolerating it very well. However on the prior events she has now developed sepsis and is evidence of hypotension and evidence of gram-negative bacilli in her blood. Spontaneous bacterial peritonitis is the most likely etiology of her current sepsis and antibiotic therapy was initiated with ceftriaxone when the consult was called. The patient is having some improvement of her status. Cultures were further help direct the course of antibiotic therapy at discharge. If possible at discharge after the acute bout of sepsis is been treated she should then be placed on chronic suppressive antibiotic therapy to prevent recurrences of her spontaneous bacterial peritonitis. Ofloxacin or ciprofloxacin would be ideal choices given her current level of illness. I agree with evaluation, assessment and plan as dictated by nurse practitioner Mrs. Lea Friedman.
[2017-09-02 22:23] LABS: Glucose,Whole Blood 152 mg/dL (75-99)
[2017-09-03] MEDS ORDERED: HYDROmorphone 0.5 MG/0.5 ML SYRINGE ONE (03:00)
[2017-09-03] MEDS: HYDROcodone/APAP 10-325MG 1 EACH TAB PO PRN (06:07)
[2017-09-03] MEDS: cefTRIAXone IN SWFI 2,000 MG/20 ML SYRINGE IVP SCH (06:08)
[2017-09-03] MEDS: DEXTROSE 5%-0.9% NACL 1,000 ML IV SCH ×2 (06:10→16:58)
[2017-09-03 07:13] LABS: Calcium 7.1 mg/dL (8.4-10.2); Potassium 4.2 mmol/L (3.5-5.1)
[2017-09-03 07:25] LABS: Basophils % (A) 0 %; Eosinophils # (A) 0.1 k/uL (0-0.7); Eosinophils % (A) 1 %; HCT 26.1 % (34.0-46.0); HGB 8.1 gm/dL (11.4-16.0); Hypochromasia Marked; Lymphocytes # (A) 0.5 k/uL (1.0-4.8); Lymphocytes % (A) 7 %; MCHC 31.1 g/dL (31.0-37.0); MCV 109.4 fL (80.0-100.0); Macrocytosis Marked; Mean Platelet Volume 8.8; Monocytes # (A) 0.4 k/uL (0-1.0); Monocytes % (A) 5 %; Neutrophils # (A) 5.9 k/uL (1.3-7.7); Neutrophils % (A) 84 %; RBC 2.38 m/uL (3.80-5.40); RDW 15.6 % (11.5-15.5)
[2017-09-03 07:28] LABS: Platelet Count 76 k/uL (150-450)
[2017-09-03 08:09] LABS: Poikilocytosis (M) Present; Toxic Granulation Present; Toxic Vacuolation Present
[2017-09-03] MEDS: NOREPINEPHRIN 4 MG-0.9% NS PMX 4 MG/250 ML ML IV SCH ×2 (08:54→15:32)
--- NOTE | 2017-09-03 09:00 | US ---
EXAMINATION TYPE: US paracentesis abd w/image DATE OF EXAM: 09/02/2017 COMPARISON: NONE HISTORY: Ascites. PROCEDURE: Maximal barrier technique was utilized. The skin overlying a suitable pocket of fluid was localized with ultrasound and the overlying skin was prepped and draped. Ultrasound was utilized with sterile technique. Lidocaine was used for local anesthesia and a skin adela made with a scalpel. Catheter was advanced under direct ultrasound guidance into a suitable pocket of fluid and approximately 8.5 liter s of tessy fluid were removed. Catheter was withdrawn and hemostasis achieved. There is no immediat e complication; the patient is discharged in stable condition. IMPRESSION: STATUS POST ULTRASOUND GUIDED PARACENTESIS FOR PALLIATION OF ASCITES. THIS PROCEDURE WA S PERFORMED BY THE UNDERSIGNED. Specimen sent for laboratory analysis.
--- NOTE | 2017-09-03 09:36 | P.CONS ---
History of Present Illness - Reason for Consult Consult date: 09/03/17 Liver cirrhosis Requesting physician: Mark Estrada - History of Present Illness 51-year-old female with a history of triple negative breast carcinoma hepatitis C cirrhosis refractory ascites multiple paracentesis portal hypertension admitted with acute epigastric upper abdominal pain nausea vomiting fever 102.4 hypotension, acute septic shock suspected spontaneous bacterial peritonitis. Paracentesis yesterday 8.5 L removal with postprocedure albumin infused. Presently feels better. Abdominal pain improved. Blood cultures gram-negative bacilli. Receiving antibiotics infectious disease following. White count 7. Hemoglobin 8.1. Platelets 76,000. BUN 30. Creatinine 1.3. Total bilirubin 6.4. AST 65. ALT 34. AP 124. Ammonia less than 9. INR 1.5. CT abdomen and pelvis no suspicious small and large bowel dilatation. Severe abdominopelvic ascites. Ascitic fluid 94% polynuclear WBCs. Ascitic fluid culture pending. Review of Systems Constitutional: Admitted with fever, chills, sweats, weight gain, denies weight loss. HEENT: Negative for migraines, blurred vision or loss, earaches, drainage, tinnitus, oral mucosal lesions, dysphagia, or odynophagia. CARDIAC: Negative for chest pain, arrhythmias, or palpitation. RESPIRATORY: Negative for shortness of breath, hemoptysis, cough, or sputum production. GI: See HPI for pertinent findings. : Negative for hematuria, urgency, frequency, polyuria, or dysuria. GYNc: Denies possibility of . Negative vaginal discharge. MUSCULOSKELETAL: Negative for muscle aches, swelling, arthritis, and arthralgias. NEUROLOGIC: Negative for stroke or TIA. ENDOCRINE: Negative for thyroid problems. SKIN: Negative for rash or itching. PSYCHIATRIC: Negative history for depression and anxiety Past Medical History Past Medical History: Cancer, GERD/Reflux, GI Bleed, Hearing Disorder / Deafness , Hypertension, Liver Disease Additional Past Medical History / Comment(s): Hepatitis C, ascities, cirrhosis, pancytopenia, vertigo; "benign abd mass", states has had esophageal banding, lt breast cancer had chemo last on 09-12-16-did not tolerate-completed only 3 cycles- then it was stopped, lt ear hearing loss, multiple upper GI bleeds. History of Any Multi-Drug Resistant Organisms: None Reported Past Surgical History: Adenoidectomy, Tonsillectomy Additional Past Surgical History / Comment(s): multiple Paracentesises, EGD, esophageal banding, rt chest mediport 17, l breast bx. Past Anesthesia/Blood Transfusion Reactions: No Reported Reaction Additional Past Anesthesia/Blood Transfusion Reaction / Comm: blood transfusions - no reaction Past Psychological History: Anxiety Additional Psychological History / Comment(s): Has a history of hepatitis C with esophageal variceal bleeds requiring banding several years ago. denies any drug use. No experience. No international travel. No animal exposures. pt's son lives with her.2 story home 1 front step. pt's bathroom and bedroom on 2nd floor so pt now has a hospital bed and bsc on first floor Smoking Status: Current every day smoker Past Alcohol Use History: None Reported Additional Past Alcohol Use History / Comment(s): pt started smoking at age 13 smoked 1/2 ppd but more recently stated only smoking 1-3 cig per day Pt states she has never been a drinker. Past Drug Use History: None Reported - Past Family History Mother Family Medical History: Cancer Additional Family Medical History / Comment(s): of lung ca at the age of 59yrs. She was a smoker. Father Family Medical History: Myocardial Infarction ([place]) Additional Family Medical History / Comment(s): from 2nd heart attack at the age of 59yrs. Medications and Allergies Home Medications Medication Instructions Recorded Confirmed Type Omeprazole 20 mg PO DAILY PRN 07/31/17 09/01/17 History Furosemide [Lasix] 40 mg PO DAILY #30 tablet 08/01/17 09/01/17 Rx Spironolactone [Aldactone] 50 mg PO DAILY #30 tab 08/01/17 09/01/17 Rx traMADol HCL [Ultram] 50 mg PO Q4HR PRN #21 tab 08/01/17 09/01/17 Rx HYDROcodone/APAP 7.5-325MG [[place] 1 tab PO Q4H PRN 09/01/17 09/01/17 History 7.5-325] Allergies Allergy/AdvReac Type Severity Reaction Status Date / Time No Known Allergies Allergy Verified 09/01/17 14:28 Physical Exam Vitals: Vital Signs Temp Pulse Pulse Resp BP BP Pulse Ox 09/03/17 07:00 73 16 88/53 94 L 09/03/17 06:00 90 37 H 91/52 94 L 09/03/17 05:56 82 20 93 L 09/03/17 05:00 84 17 102/60 94 L 09/03/17 04:00 98.5 F 78 23 93/50 95 09/03/17 03:00 72 22 86/50 95 09/03/17 02:00 72 20 125/48 96 09/03/17 01:00 75 18 134/50 95 09/03/17 00:00 98.7 F 75 23 123/52 96 09/02/17 23:25 31 H 09/02/17 23:05 74 18 120/52 96 09/02/17 23:00 76 31 H 119/47 96 09/02/17 22:00 76 18 110/49 96 09/02/17 21:00 79 20 111/50 95 09/02/17 20:00 98.7 F 77 15 110/56 95 09/02/17 19:00 65 18 98/44 96 09/02/17 18:00 98.5 F 77 27 H 122/53 98 09/02/17 17:00 77 19 97/37 98 09/02/17 16:00 98.8 F 63 22 101/32 98 09/02/17 15:00 68 19 122/48 99 09/02/17 14:00 69 22 116/38 96 09/02/17 13:00 68 21 128/53 97 09/02/17 12:00 98.3 F 70 24 81/35 98 09/02/17 11:00 79 19 74/32 100 09/02/17 10:00 86 94/47 97 Intake and Output 09/02/17 09/03/17 09/03/17 22:59 06:59 14:59 Intake Total 1032.125 800 294.125 Output Total 150 150 0 Balance 882.125 650 294.125 Intake: IV 800 800 100 Dextrose 5%-0.9% NaCl 1, 800 800 100 000 ml @ 100 mls/hr IV . Q10H [facility] Rx#:[id number] Intake, IV Titration 232.125 194.125 Amount Norepinephrin 4 mg-0.9% 232.125 194.125 Ns Pmx 4 mg In 250 ml @ Titrate IV .Q0M [facility] Rx#: [id number] Output: Urine 150 150 0 Other: Voiding Method Bedside Commode Bedside Commode # Voids 1 Weight 72.121 kg 81.1 kg General appearance: The patient is alert, oriented, in no acute distress. Jaundice. HET: Head is normocephalic and atraumatic. Pupils are equal and reactive. Sclera icterus. Oropharynx is clear without lesions. Neck: Supple without lymphadenopathy. Trachea midline. Heart: S1 S2. Regular rate and rhythm. Lungs: No crackles or wheezes are heard. Abdomen: Soft, nontender, mildly bloated paracentesis site with Band-Aid without drainage or bleeding with bowel sounds. No peritoneal signs. No palpable organomegaly or masses. Extremities: +1 bilateral lower extremity edema. Neurological: No focal deficits. Strength and sensation are grossly intact. Results CBC & Chem 7: 09/03/17 04:50 09/03/17 04:50 Labs: Abnormal Lab Results - Last 24 Hours (Table) 09/02/17 09/02/17 09/02/17 Range/Units 10:05 10:05 10:13 RBC (3.80-5.40) m/uL Hgb (11.4-16.0) gm/dL Hct (34.0-46.0) % MCV (80.0-100.0) fL RDW (11.5-15.5) % Plt Count (150-450) k/uL Lymphocytes # (1.0-4.8) k/uL PT 13.7 H (9.0-12.0) sec INR 1.5 H (<1.2) Chloride (98-107) mmol/L Carbon Dioxide (22-30) mmol/L BUN (7-17) mg/dL Creatinine (0.52-1.04) mg/dL Glucose (74-99) mg/dL POC Glucose (mg/dL) 117 H (75-99) mg/dL Plasma Lactic Acid Darrius 3.2 H* (0.7-2.0) mmol/L Calcium (8.4-10.2) mg/dL Urine Appearance (Clear) Urine Protein (Negative) Urine Ketones (Negative) Urine Bilirubin (Negative) Ur Leukocyte Esterase (Negative) Urine RBC (0-5) /hpf Urine WBC (0-5) /hpf Ur Squamous Epith Cells (0-4) /hpf Amorphous Sediment (None) /hpf Urine Bacteria (None) /hpf Hyaline Casts (0-2) /lpf Urine Mucus (None) /hpf 09/02/17 09/02/17 09/02/17 Range/Units 13:51 18:45 18:50 RBC (3.80-5.40) m/uL Hgb (11.4-16.0) gm/dL Hct (34.0-46.0) % MCV (80.0-100.0) fL RDW (11.5-15.5) % Plt Count (150-450) k/uL Lymphocytes # (1.0-4.8) k/uL PT (9.0-12.0) sec INR (<1.2) Chloride (98-107) mmol/L Carbon Dioxide (22-30) mmol/L BUN (7-17) mg/dL Creatinine (0.52-1.04) mg/dL Glucose (74-99) mg/dL POC Glucose (mg/dL) 135 H 135 H (75-99) mg/dL Plasma Lactic Acid Darrius (0.7-2.0) mmol/L Calcium (8.4-10.2) mg/dL Urine Appearance Cloudy H (Clear) Urine Protein 1+ H (Negative) Urine Ketones Trace H (Negative) Urine Bilirubin 3+ H (Negative) Ur Leukocyte Esterase Moderate H (Negative) Urine RBC 7 H (0-5) /hpf Urine WBC 22 H (0-5) /hpf Ur Squamous Epith Cells 6 H (0-4) /hpf Amorphous Sediment Rare H (None) /hpf Urine Bacteria Many H (None) /hpf Hyaline Casts 26 H (0-2) /lpf Urine Mucus Few H (None) /hpf 09/02/17 09/03/17 09/03/17 Range/Units 22:21 04:50 04:50 RBC 2.38 L (3.80-5.40) m/uL Hgb 8.1 L (11.4-16.0) gm/dL Hct 26.1 L (34.0-46.0) % MCV 109.4 H (80.0-100.0) fL RDW 15.6 H (11.5-15.5) % Plt Count 76 L D (150-450) k/uL Lymphocytes # 0.5 L (1.0-4.8) k/uL PT (9.0-12.0) sec INR (<1.2) Chloride 111 H (98-107) mmol/L Carbon Dioxide 18 L (22-30) mmol/L BUN 30 H (7-17) mg/dL Creatinine 1.30 H (0.52-1.04) mg/dL Glucose 140 H (74-99) mg/dL POC Glucose (mg/dL) 152 H (75-99) mg/dL Plasma Lactic Acid Darrius (0.7-2.0) mmol/L Calcium 7.1 L (8.4-10.2) mg/dL Urine Appearance (Clear) Urine Protein (Negative) Urine Ketones (Negative) Urine Bilirubin (Negative) Ur Leukocyte Esterase (Negative) Urine RBC (0-5) /hpf Urine WBC (0-5) /hpf Ur Squamous Epith Cells (0-4) /hpf Amorphous Sediment (None) /hpf Urine Bacteria (None) /hpf Hyaline Casts (0-2) /lpf Urine Mucus (None) /hpf Microbiology - Last 24 Hours (Table) 09/02/17 14:15 Gram Stain - Preliminary Paracentesis Fluid Body Fluid Culture - Preliminary 09/02/17 04:25 Blood Culture - Preliminary Blood No Growth after 24 hours 09/02/17 14:15 Anaerobic Culture - Preliminary Ascites Fluid 09/02/17 18:45 Urine Culture - Preliminary Urine,Voided 09/01/17 19:02 Blood Culture Gram Stain - Preliminary Blood Blood Culture - Preliminary Gram Neg Bacilli 09/01/17 19:02 Blood Culture - Final Blood CT scan - abdomen: report reviewed (Reviewed by Dr. Botello) Assessment and Plan (1) Spontaneous bacterial peritonitis Narrative/Plan: Suspected SBP Current Visit: Yes Status: Acute Code(s): K65.2 - SPONTANEOUS BACTERIAL PERITONITIS SNOMED Code(s): 99818810 (2) Septic shock Current Visit: Yes Status: Acute Code(s): A41.9 - SEPSIS, UNSPECIFIED ORGANISM; R65.21 - SEVERE SEPSIS WITH SEPTIC SHOCK SNOMED Code(s): 75792186 (3) Gram-negative bacteremia Current Visit: Yes Status: Acute Code(s): R78.81 - BACTEREMIA SNOMED Code( s): 974456368807 (4) Ascites of liver Current Visit: Yes Status: Chronic Code(s): R18.8 - OTHER ASCITES SNOMED Code(s): 150860778 (5) Cirrhosis Current Visit: Yes Status: Chronic Code(s): K74.60 - UNSPECIFIED CIRRHOSIS OF LIVER SNOMED Code(s): 50867592 (6) Hepatitis C Current Visit: Yes Status: Chronic Code(s): B19.20 - UNSPECIFIED VIRAL HEPATITIS C WITHOUT HEPATIC COMA SNOMED Code(s): 62461446 (7) Abdominal pain Current Visit: No Status: Acute Code(s): R10.9 - UNSPECIFIED ABDOMINAL PAIN SNOMED Code(s): 10330585 (8) Portal hypertension Current Visit: Yes Status: Chronic Code(s): K76.6 - PORTAL HYPERTENSION SNOMED Code(s): 33092728 (9) Breast cancer Current Visit: Yes Status: Chronic Code(s): C50.919 - MALIGNANT NEOPLASM OF UNSP SITE OF UNSPECIFIED FEMALE BREAST SNOMED Code(s): 963413685 (10) Coagulopathy Current Visit: Yes Status: Acute Code(s): D68.9 - COAGULATION DEFECT, UNSPECIFIED SNOMED Code(s): 89653630 (11) Elevated liver enzymes Current Visit: Yes Status: Acute Code(s): R74.8 - ABNORMAL LEVELS OF OTHER SERUM ENZYMES SNOMED Code(s): 451146620 Plan: 1. ABX per ID. 2. Low salt diet. 3. Daily CBC CMP and INR in am. 4. Protonix 40 mg daily. 5. Diuretic therapy once hemodynamics and renal function improved more presently systolic blood pressures less than 90 and creatinine is 1.3. Thank you for this kind referral and the opportunity to participate in the care of your patient. This consultation was discussed with Dr. Botello. The impression and plan of care have been directed as dictated.
[2017-09-03 13:30] LABS: Total Protein, Body Fluid 989 mg/dL
[2017-09-03 13:40] LABS: Glucose,Whole Blood 118 mg/dL (75-99)
[2017-09-03] MEDS: HYDROmorphone 0.5 MG/0.5 ML SYRINGE IVP PRN (13:46)
[2017-09-03] MEDS ORDERED: ALBUMIN HUMAN 5% 500 ML IVPB ONE (14:58)
--- NOTE | 2017-09-03 16:09 | P.PN ---
Subjective Progress Note Date: 09/03/17 A 51-year-old female patient with previous history of liver cirrhosis secondary to chronic hepatitis C with stigmata of liver failure with chronic ascites requiring multiple paracentesis almost on a weekly basis. The last paracentesis was done as patient was on 08/27/2018. The patient came into the emergency department complaining of abdominal pain which was periumbilical and somewhat in epigastric area in addition to some nausea vomiting and a temperature of 101. CAT scan of the abdomen and pelvis was done in the emergency department and showed large amount of abdominal and pelvic fluid consistent with liver cirrhosis. Otherwise no other new abnormalities was noted. The patient continued to spike temperature and subsequently she became hypotensive with blood sugars running in the mid 80s. She also developed some mild lactic acidosis with level of 3.4 and a blood sugar was as low as 53. At that point, the patient got moved to the intensive care unit for further evaluation. The preliminary blood cultures showing gram-negative bacillus. The patient is currently on IV Rocephin 2 g every 24 hours. Overnight the patient was given fluids, 1 L bolus and she was placed on 0.9 and subsequently switched to D5 half-normal as the patient was having episodes of hypoglycemia at the rate of 150 mL an hour. At the time of my evaluation this morning, the patient's systolic blood pressure was in the mid 80s with a mean arterial pressure of 53. Her urine output was low and she denied passing any urine output since morning and the patient also declined to have a Calderon catheter inserted. The patient has a Mediport with seems to be clean and intact on surface. The patient had a soft abdomen. Immediately a TENS unit of ascitic fluid was aspirated and it was sent for culture to rule out possibility of spontaneous bacteria peritonitis. No melena. No diarrhea. No nausea or vomiting. She is lethargic yet she is arousable. No evidence of any GI bleeding. No confusion. No altered mentation. No skin rashes. No wounds or ulcers or sores at this point in time. The patient has liver cirrhosis and pancytopenia and chronic ascites related to liver cirrhosis. The patient has had previous esophageal banding. She also has history of breast cancer and she had her last chemotherapy back in October 2016 which she didn't tolerate and the chemotherapy regimen following that was reduced only to 3 cycles and was stopped. The patient has had previous history of upper GI bleeds. On today's evaluation of 09/03/2017, the patient is awake and alert and she is following commands and answering questions appropriately. She is not having any significant shortness of breath. No fever. She required pressors since yesterday the patient is currently on 4-5 mics of norepinephrine infusion for blood pressure control. Noted the patient had a large volume paracentesis yesterday and a total of 8 L of abdominal ascitic fluid was removed. There is no evidence of peritonitis based on the ascitic fluid analysis and the cultures are also negative from the ascitic fluid. UA was sent and urine culture is still pending for now. The patient has gram-negative bacillus and the blood which do not to be E. coli which is sensitive to Rocephin and the patient is still on 2 g of IV Rocephin every 24 hours. The patient has no abdominal pain. No nausea or vomiting. She has running a lower blood pressure with a systolic blood pressure in the mid 90s and a mean of 65. No GI bleeding. No other issues otherwise over the past 24 hours. Pulse ox is 93% on room air oxygen. Objective - Vital Signs Vital signs: Vital Signs Temp 97.9 F 09/03/17 12:00 Pulse 75 09/03/17 15:15 Resp 17 09/03/17 15:15 BP 99/57 09/03/17 15:15 Pulse Ox 93 L 09/03/17 15:15 Intake & Output 09/02/17 09/03/17 09/03/17 18:59 06:59 18:59 Intake Total 8027.274 7248 1256.375 Output Total 150 150 0 Balance 6995.015 6418 1256.375 Weight 72.121 kg 81.1 kg Intake: IV 1625 1200 900 Dextrose 5%-0.9% NaCl 1, 975 1200 900 000 ml @ 100 mls/hr IV . Q10H [facility] Rx#:[id number] Sodium Chloride 0.9% 1, 150 000 ml @ 75 mls/hr IV . [id number] [facility] Rx#:[id number] Sodium Chloride 0.9% 500 500 ml @ 999 mls/hr IV .Q31M [facility] Rx#:[id number] Intake, IV Titration 269.751 356.375 Amount Norepinephrin 4 mg-0.9% 269.751 356.375 Ns Pmx 4 mg In 250 ml @ Titrate IV .Q0M [facility] Rx#: [id number] Output: Urine 150 150 0 Other: Voiding Method Bedside Commode Bedside Commode Bedside Commode # Voids 1 1 - Exam Gen. appearance the patient is cachectic thin and frail nonacute distress. Head exam was generally normal. There was no scleral icterus or corneal arcus. Mucous membranes were moist. Neck was supple and without jugular venous distension, thyromegaly, or carotid bruits. Carotids were easily palpable bilaterally. There was no adenopathy.The patient is conjunctival icterus and pallor. Lungs were clear to auscultation and percussion, and with normal diaphragmatic excursion. No wheezes or rales were noted. Cardiac exam revealed the PMI to be normally situated and sized. The rhythm was regular and no extrasystoles were noted during several minutes of auscultation. The first and second heart sounds were normal and physiologic splitting of the second heart sound was noted. There were no murmurs, rubs, clicks, or gallops. Abdomen is slightly distended there is evidence of fluid wave and shifting dullness consistent with ascites. No direct tenderness. No rebound tenderness. No guarding. Bowel sounds are hypoactive at the present. Examination of the extremities revealed easily palpable radial, femoral and pedal pulses. There was no cyanosis, clubbing or edema. Examination of the skin revealed no evidence of significant rashes, suspicious appearing nevi or other concerning lesions. Neurologically the patient is awake and alert and there is no signs of any encephalopathy at this point. - Labs CBC & Chem 7: 09/03/17 04:50 09/03/17 04:50 Labs: Abnormal Lab Results - Last 24 Hours (Table) 09/02/17 09/02/17 09/02/17 Range/Units 18:45 18:50 22:21 RBC (3.80-5.40) m/uL Hgb (11.4-16.0) gm/dL Hct (34.0-46.0) % MCV (80.0-100.0) fL RDW (11.5-15.5) % Plt Count (150-450) k/uL Lymphocytes # (1.0-4.8) k/uL Chloride (98-107) mmol/L Carbon Dioxide (22-30) mmol/L BUN (7-17) mg/dL Creatinine (0.52-1.04) mg/dL Glucose (74-99) mg/dL POC Glucose (mg/dL) 135 H 152 H (75-99) mg/dL Calcium (8.4-10.2) mg/dL Urine Appearance Cloudy H (Clear) Urine Protein 1+ H (Negative) Urine Ketones Trace H (Negative) Urine Bilirubin 3+ H (Negative) Ur Leukocyte Esterase Moderate H (Negative) Urine RBC 7 H (0-5) /hpf Urine WBC 22 H (0-5) /hpf Ur Squamous Epith Cells 6 H (0-4) /hpf Amorphous Sediment Rare H (None) /hpf Urine Bacteria Many H (None) /hpf Hyaline Casts 26 H (0-2) /lpf Urine Mucus Few H (None) /hpf 09/03/17 09/03/17 09/03/17 Range/Units 04:50 04:50 13:39 RBC 2.38 L (3.80-5.40) m/uL Hgb 8.1 L (11.4-16.0) gm/dL Hct 26.1 L (34.0-46.0) % MCV 109.4 H (80.0-100.0) fL RDW 15.6 H (11.5-15.5) % Plt Count 76 L D (150-450) k/uL Lymphocytes # 0.5 L (1.0-4.8) k/uL Chloride 111 H (98-107) mmol/L Carbon Dioxide 18 L (22-30) mmol/L BUN 30 H (7-17) mg/dL Creatinine 1.30 H (0.52-1.04) mg/dL Glucose 140 H (74-99) mg/dL POC Glucose (mg/dL) 118 H (75-99) mg/dL Calcium 7.1 L (8.4-10.2) mg/dL Urine Appearance (Clear) Urine Protein (Negative) Urine Ketones (Negative) Urine Bilirubin (Negative) Ur Leukocyte Esterase (Negative) Urine RBC (0-5) /hpf Urine WBC (0-5) /hpf Ur Squamous Epith Cells (0-4) /hpf Amorphous Sediment (None) /hpf Urine Bacteria (None) /hpf Hyaline Casts (0-2) /lpf Urine Mucus (None) /hpf Microbiology - Last 24 Hours (Table) 09/02/17 10:05 Blood Culture - Preliminary Blood No Growth after 24 hours 09/01/17 19:02 Blood Culture Gram Stain - Final Blood Blood Culture - Final Escherichia coli 09/02/17 14:15 Gram Stain - Preliminary Paracentesis Fluid Body Fluid Culture - Preliminary 09/02/17 04:25 Blood Culture - Preliminary Blood No Growth after 24 hours 09/02/17 14:15 Anaerobic Culture - Preliminary Ascites Fluid 09/02/17 18:45 Urine Culture - Preliminary Urine,Voided Assessment and Plan Plan: Assessment 1 acute septic shock secondary to E. coli. The sources was thought tospontaneous bacterial peritonitis. Nevertheless, the cellular count and the culture of the ascitic fluid came back negative. Doppler any other alternative source of E. coli infection in this patient. ID is on the case. The patient on a combination of fluids, IV Rocephin and pressors for hemodynamics support. Currently she is on 4-5 mics of levo fed for blood pressure support. 2 acute hypotension secondary to above and the patient is currently resuscitated IV fluids. Patient was started on IV Rocephin 2 g every 24 hours. 3 liver cirrhosis 4 hepatitis C 5 chronic ascites requiring periodic paracentesis almost on a weekly basis. The patient had a large old paracentesis yesterday without a total of 8liters of ascitic fluid was aspirated. 6 coagulopathy and chronic thrombocytopenia related to alcoholism and liver cirrhosis 7 breast cancer status post systemic chemotherapy 8 previous episodes of upper GI bleed secondary to portal hypertension and esophageal varices 9 chronic anemia 10 acid reflux 11 hypertension, history of 12 hypoproteinemia and albuminemia secondary to above 13 mild lactic acidosis secondary to above, improving 14 acute kidney injury in the setting of hypotension and sepsis. Patient's creatinine is up to 1.3 and she is oliguric. Plan the patient will be given another 500 mL of 5% albumin. Wean off pressors and discontinue if possible to maintain a mean arterial pressure somewhat between 60 and 65. Continued IV Rocephin 2 g every 24 hours. ID is on the case.monitor electrolytes and blood count on a daily basis. Monitor renal function and there is a concern towards acute kidney injury specially following the paracentesis. We'll continue to follow make further determinations based on her progress. Long-term prognosis poor baseline above-mentioned comorbidities.
[2017-09-03 17:15] LABS: Glucose,Whole Blood 124 mg/dL (75-99)
--- NOTE | 2017-09-03 17:50 | PN ---
PROGRESS NOTE DATE OF SERVICE: 09/03/17. CHIEF COMPLAINT: Peritonitis, hepatitis C, cirrhosis, intractable ascites and breast cancer. HISTORY OF PRESENT ILLNESS: This lady is feeling a little bit better. Code status has been discussed and she is adamant about undergoing FULL CODE if necessary. Pain is improving. She does have a positive blood culture with gram-negative rods. PHYSICAL EXAM: Breath sounds are present and the abdomen is still very distended and slightly tender. Cardiac exam is normal. IMPRESSION: 1. Peritonitis. 2. Hepatitis C. 3. Alcoholism. 4. Cirrhosis. 5. Intractable ascites. 6. Breast cancer. PLAN: Continue supportive care and continue antibiotics. MMODL / IJN: [id number] /
[2017-09-03] MEDS: HYDROcodone/APAP 5-325MG 1 EACH TAB PO PRN (22:17)
--- NOTE | 2017-09-03 23:51 | P.PN ---
Subjective Progress Note Date: 09/03/17 51-year-old female who has multiple medical troubles that includes her triple negative breast carcinoma and her chronic active hepatitis C with cirrhosis and chronic refractory ascites that has required multiple admissions and multiple paracentesis. She has beem treated with Epculusa for her hepatitis C. She continues to have cirrhosis with her significant and refractory ascites that has required multiple paracentesis and is up to almost weekly paracentesis. Last one was done on August 27. Patient presented to [facility] emergency center with complaints of upper abdominal pain in epigastric and periumbilical areas with nausea and vomiting and fever of 101. CAT scan of the abdomen and pelvis showed recurrent large amount of abdominal pelvic fluid. No new or unexpected findings. She is found to have a temperature max of 102.4 with hypotension, white count 3.2, platelet count 83 and hemoglobin 8.9. Creatinine 0.78. Lactic acid was 3.4. Blood sugar 53. Total bilirubin is now 6.4, AST 65, ALT 38, alkaline phosphatase 179, albumin is 1.9. Patient was initially admitted to the floor and then transferred to the intensive care unit due to lactic acidosis and hypotension. She is not on vasopressors. Blood pressures are being obtained from her thigh. Patient denies any abdominal pain at the time of my eval. She is very vague gives limited information. Consult in place with Dr. Gerard for intensive care management and Dr. Joseph. Blood culture is showing gram-negative bacilli. She does have a previous positive blood culture in July with staff epidermidis. 09/03/2017 culture now reveals ecoli susceptibility adequate to Rocephin. Objective - Vital Signs Vital signs: Vital Signs Temp 100.6 F H 09/03/17 20:00 Pulse 89 09/03/17 22:30 Resp 30 H 09/03/17 22:30 BP 116/58 09/03/17 22:30 Pulse Ox 94 L 09/03/17 22:30 Intake & Output 09/03/17 09/03/17 09/04/17 06:59 18:59 06:59 Intake Total 1200 2295.750 300 Output Total 150 0 100 Balance 1050 2295.750 200 Weight 81.1 kg Intake: IV 1200 1800 300 Albumin Human 5% 500 ml 600 As IVPB .[facility] Rx#: [id number] Dextrose 5%-0.9% NaCl 1, 1200 1200 300 000 ml @ 100 mls/hr IV . Q10H [facility] Rx#:[id number] Intake, IV Titration 395.750 Amount Norepinephrin 4 mg-0.9% 395.750 Ns Pmx 4 mg In 250 ml @ Titrate IV .Q0M [facility] Rx#: [id number] Oral 100 Output: Urine 150 0 100 Other: Voiding Method Bedside Commode Bedside Commode Bedside Commode # Voids 0 1 - Exam Gen: This is a thin cachectic appearing female 51 years old. She is lying in the ICU bed and appears to be comfortable. She has a hat over her eyes and refuses to have exam of her face and eyes. Patient is crying out in pain to minimal stimuli. She has blood pressure cuff on her right thigh for which she yells to have it removed. LUNGS: Clear to auscultation. No wheezes or rhonchi. No intercostal retractions. HEART: Patient refused. Port to the right upper anterior chest wall is tender to light touch. Patient appears to be hypersensitive. ABDOMEN: Soft. Distended and. Positive ascites. Bowel sounds are present. No tenderness. EXTREMITIES: +1 pedal edema. Dorsalis pedis +2 bilaterally. NEUROLOGICAL: sedate - Labs CBC & Chem 7: 09/03/17 04:50 09/03/17 04:50 Labs: Abnormal Lab Results - Last 24 Hours (Table) 09/03/17 09/03/17 09/03/17 Range/Units 04:50 04:50 13:39 RBC 2.38 L (3.80-5.40) m/uL Hgb 8.1 L (11.4-16.0) gm/dL Hct 26.1 L (34.0-46.0) % MCV 109.4 H (80.0-100.0) fL RDW 15.6 H (11.5-15.5) % Plt Count 76 L D (150-450) k/uL Lymphocytes # 0.5 L (1.0-4.8) k/uL Chloride 111 H (98-107) mmol/L Carbon Dioxide 18 L (22-30) mmol/L BUN 30 H (7-17) mg/dL Creatinine 1.30 H (0.52-1.04) mg/dL Glucose 140 H (74-99) mg/dL POC Glucose (mg/dL) 118 H (75-99) mg/dL Calcium 7.1 L (8.4-10.2) mg/dL 09/03/17 Range/Units 17:13 RBC (3.80-5.40) m/uL Hgb (11.4-16.0) gm/dL Hct (34.0-46.0) % MCV (80.0-100.0) fL RDW (11.5-15.5) % Plt Count (150-450) k/uL Lymphocytes # (1.0-4.8) k/uL Chloride (98-107) mmol/L Carbon Dioxide (22-30) mmol/L BUN (7-17) mg/dL Creatinine (0.52-1.04) mg/dL Glucose (74-99) mg/dL POC Glucose (mg/dL) 124 H (75-99) mg/dL Calcium (8.4-10.2) mg/dL Microbiology - Last 24 Hours (Table) 09/02/17 18:45 Urine Culture - Preliminary Urine,Voided Gram Neg Bacilli 09/02/17 14:15 Gram Stain - Preliminary Paracentesis Fluid Body Fluid Culture - Preliminary 09/02/17 10:05 Blood Culture - Preliminary Blood No Growth after 24 hours 09/01/17 19:02 Blood Culture Gram Stain - Final Blood Blood Culture - Final Escherichia coli 09/02/17 04:25 Blood Culture - Preliminary Blood No Growth after 24 hours 09/02/17 14:15 Anaerobic Culture - Preliminary Ascites Fluid Laboratory Results WBC 7.0 k/uL (3.8-10.6) 09/03/17 04:50 RBC 2.38 m/uL (3.80-5.40) L 09/03/17 04:50 Hgb 8.1 gm/dL (11.4-16.0) L 09/03/17 04:50 Hct 26.1 % (34.0-46.0) L 09/03/17 04:50 MCV 109.4 fL (80.0-100.0) H 09/03/17 04:50 MCH 34.0 pg (25.0-35.0) 09/03/17 04:50 MCHC 31.1 g/dL (31.0-37.0) 09/03/17 04:50 RDW 15.6 % (11.5-15.5) H 09/03/17 04:50 Plt Count 76 k/uL (150-450) L D 09/03/17 04:50 Neutrophils % 84 % 09/03/17 04:50 Neutrophils % (Manual) 77 % 09/02/17 04:25 Band Neutrophils % 14 % 09/02/17 04:25 Lymphocytes % 7 % 09/03/17 04:50 Lymphocytes % (Manual) 3 % 09/02/17 04:25 Monocytes % 5 % 09/03/17 04:50 Monocytes % (Manual) 6 % 09/02/17 04:25 Eosinophils % 1 % 09/03/17 04:50 Basophils % 0 % 09/03/17 04:50 Metamyelocytes % 1 % 09/02/17 04:25 Neutrophils # 5.9 k/uL (1.3-7.7) 09/03/17 04:50 Neutrophils # (Manual) 4.20 k/uL (1.3-7.7) 09/02/17 04:25 Lymphocytes # 0.5 k/uL (1.0-4.8) L 09/03/17 04:50 Lymphocytes # (Manual) 0.14 k/uL (1.0-4.8) L 09/02/17 04:25 Monocytes # 0.4 k/uL (0-1.0) 09/03/17 04:50 Monocytes # (Manual) 0.28 k/uL (0-1.0) 09/02/17 04:25 Eosinophils # 0.1 k/uL (0-0.7) 09/03/17 04:50 Basophils # 0.0 k/uL (0-0.2) 09/03/17 04:50 Metamyelocytes # (Man) 0.05 k/uL (0) H 09/02/17 04:25 Nucleated RBCs 0 /100 WBC (0-0) 09/02/17 04:25 Manual Slide Review Performed 09/03/17 04:50 Toxic Granulation Present 09/03/17 04:50 Toxic Vacuolation Present 09/03/17 04:50 Hypochromasia Marked 09/03/17 04:50 Poikilocytosis (manual Present 09/03/17 04:50 Anisocytosis Slight 09/02/17 04:25 Macrocytosis Marked 09/03/17 04:50 PT 13.7 sec (9.0-12.0) H 09/02/17 10:05 INR 1.5 (<1.2) H 09/02/17 10:05 APTT 38.0 sec (22.0-30.0) H 09/01/17 13:50 Sodium 138 mmol/L (137-145) 09/03/17 04:50 Potassium 4.2 mmol/L (3.5-5.1) 09/03/17 04:50 Chloride 111 mmol/L (98-107) H 09/03/17 04:50 Carbon Dioxide 18 mmol/L (22-30) L 09/03/17 04:50 Anion Gap 9 mmol/L 09/03/17 04:50 BUN 30 mg/dL (7-17) H 09/03/17 04:50 Creatinine 1.30 mg/dL (0.52-1.04) H 09/03/17 04:50 Est GFR (CKD-EPI)AfAm 55 (>60 ml/min/1.73 sqM) 09/03/17 04:50 Est GFR (CKD-EPI)NonAf 48 (>60 ml/min/1.73 sqM) 09/03/17 04:50 Glucose 140 mg/dL (74-99) H 09/03/17 04:50 POC Glucose (mg/dL) 124 mg/dL (75-99) H 09/03/17 17:13 POC Glu Account Manager Sales Representative ID [place], [place] 09/03/17 17:13 Lactic Ac Sepsis Rflx Y 09/02/17 05:18 Plasma Lactic Acid [place] 1.6 mmol/L (0.7-2.0) 09/03/17 11:55 Calcium 7.1 mg/dL (8.4-10.2) L 09/03/17 04:50 Phosphorus 4.8 mg/dL (2.5-4.5) H 09/02/17 04:25 Magnesium 1.7 mg/dL (1.6-2.3) 09/02/17 04:25 Total Bilirubin 6.4 mg/dL (0.2-1.3) H 09/02/17 04:25 AST 65 U/L (14-36) H 09/02/17 04:25 ALT 34 U/L (9-52) 09/02/17 04:25 Alkaline Phosphatase 124 U/L (38-126) 09/02/17 04:25 Ammonia <9 umol/L (<30) 09/02/17 10:05 Total Protein 4.6 g/dL (6.3-8.2) L 09/02/17 04:25 Albumin 1.9 g/dL (3.5-5.0) L 09/02/17 04:25 Amylase 36 U/L (30-110) 09/01/17 13:50 Lipase 55 U/L (23-300) 09/01/17 13:50 Cortisol 12 ug/dL 09/03/17 11:55 Urine Color Dark Brown 09/02/17 18:45 Urine Appearance Cloudy (Clear) H 09/02/17 18:45 Urine pH 5.0 (5.0-8.0) 09/02/17 18:45 Ur Specific [place] 1.023 (1.001-1.035) 09/02/17 18:45 Urine Protein 1+ (Negative) H 09/02/17 18:45 Urine Glucose (UA) Negative (Negative) 09/02/17 18:45 Urine Ketones Trace (Negative) H 09/02/17 18:45 Urine Blood Negative (Negative) 09/02/17 18:45 Urine Nitrite Negative (Negative) 09/02/17 18:45 Urine Bilirubin 3+ (Negative) H 09/02/17 18:45 Urine Urobilinogen 8.0 mg/dL (<2.0) 09/02/17 18:45 Ur Leukocyte Esterase Moderate (Negative) H 09/02/17 18:45 Urine RBC 7 /hpf (0-5) H 09/02/17 18:45 Urine WBC 22 /hpf (0-5) H 09/02/17 18:45 Ur Squamous Epith Cells 6 /hpf (0-4) H 09/02/17 18:45 Amorphous Sediment Rare /hpf (None) H 09/02/17 18:45 Urine Bacteria Many /hpf (None) H 09/02/17 18:45 Hyaline Casts 26 /lpf (0-2) H 09/02/17 18:45 Urine Mucus Few /hpf (None) H 09/02/17 18:45 Fluid Source Peritoneal 09/02/17 14:15 Fluid Color [place] 09/02/17 14:15 Fluid Appearance Hazy 09/02/17 14:15 Fluid RBC 6300 /uL 09/02/17 14:15 Fluid Nucleated Cells 50 /uL 09/02/17 14:15 Fluid Polynuclear WBCs 94 % 09/02/17 14:15 Fluid Mononuclear WBCs 6 % 09/02/17 14:15 Body Fluid Protein Source Paracentesis Fluid 09/02/17 14:15 Fluid Total Protein 989 mg/dL 09/02/17 14:15 Fluid Comment Moderate Mesothelial 09/02/17 14:15 Microbiology 09/02/17 18:45 Urine,Voided Urine Culture - Preliminary Gram Neg Bacilli 09/02/17 14:15 Paracentesis Fluid Gram Stain - Preliminary 09/02/17 14:15 Paracentesis Fluid Body Fluid Culture - Preliminary 09/02/17 10:05 Blood Blood Culture - Preliminary No Growth after 24 hours 09/01/17 19:02 Blood Blood Culture Gram Stain - Final 09/01/17 19:02 Blood Blood Culture - Final Escherichia coli 09/02/17 04:25 Blood Blood Culture - Preliminary No Growth after 24 hours 09/02/17 14:15 Ascites Fluid Anaerobic Culture - Preliminary 09/01/17 19:02 Blood Blood Culture - Final Assessment and Plan (1) Spontaneous bacterial peritonitis Current Visit: Yes Status: Acute Code(s): K65.2 - SPONTANEOUS BACTERIAL PERITONITIS SNOMED Code(s): 74157554 (2) Gram-negative bacteremia Narrative/Plan: The patient is receiving a high-volume paracentesis and she seems to be tolerating it very well. However on the prior events she has now developed sepsis and is evidence of hypotension and evidence of gram-negative bacilli in her blood. Spontaneous bacterial peritonitis is the most likely etiology of her current sepsis and antibiotic therapy was initiated with ceftriaxone when the consult was called. The patient is having some improvement of her status. Cultures were further help direct the course of antibiotic therapy at discharge. If possible at discharge after the acute bout of sepsis is been treated she should then be placed on chronic suppressive antibiotic therapy to prevent recurrences of her spontaneous bacterial peritonitis. Ofloxacin or ciprofloxacin would be ideal choices given her current level of illness. On 09/03/2017 patient remains ill on levophed still.Rocephin is adequate choice for the e coli sepsis. repeat blood cultures are negative so far. Current Visit: Yes Status: Acute Code(s): R78.81 - BACTEREMIA SNOMED Code( s): 729583159379 (3) Cirrhosis Current Visit: Yes Status: Chronic Code(s): K74.60 - UNSPECIFIED CIRRHOSIS OF LIVER SNOMED Code(s): 67485743
[2017-09-04] MEDS: DEXTROSE 5%-0.9% NACL 1,000 ML IV SCH ×3 (01:45→20:07)
[2017-09-04] MEDS: NOREPINEPHRIN 4 MG-0.9% NS PMX 4 MG/250 ML ML IV SCH ×2 (03:00→16:44)
[2017-09-04 04:30] LABS: HCT 24.7 % (34.0-46.0); HGB 7.9 gm/dL (11.4-16.0); Hypochromasia Moderate; MCH 34.2 pg (25.0-35.0); MCV 106.9 fL (80.0-100.0); Macrocytosis Marked; Mean Platelet Volume 9.3; RBC 2.31 m/uL (3.80-5.40); RDW 15.7 % (11.5-15.5); WBC 4.4 k/uL (3.8-10.6)
[2017-09-04 04:38] LABS: Platelet Count 53 k/uL (150-450)
[2017-09-04 04:41] LABS: Anion Gap 9 mmol/L; Blood Urea Nitrogen 22 mg/dL (7-17); Calcium 7.2 mg/dL (8.4-10.2); Carbon Dioxide 18 mmol/L (22-30); Chloride 111 mmol/L (98-107); Glucose 119 mg/dL (74-99); Magnesium 1.9 mg/dL (1.6-2.3); Phosphorus 1.9 mg/dL (2.5-4.5); Potassium 3.8 mmol/L (3.5-5.1); Sodium 138 mmol/L (137-145)
[2017-09-04] MEDS: HYDROcodone/APAP 5-325MG 1 EACH TAB PO PRN ×4 (04:45→23:27)
[2017-09-04] MEDS ORDERED: POTASSIUM CHLORIDE ER 20 MEQ TAB.ER PO SCH (06:00)
[2017-09-04] MEDS: cefTRIAXone IN SWFI 2,000 MG/20 ML SYRINGE IVP SCH (06:30)
[2017-09-04] MEDS: POTASSIUM PHOSPHATE 10 MMOL in SODIUM CHLORIDE 0.9% 250 ML IV SCH ×2 (06:31→09:37)
[2017-09-04 06:49] LABS: Band Neutrophils % 9 %; Eosinophils # (M) 0.04 k/uL (0-0.7); Lymphocytes # (M) 0.57 k/uL (1.0-4.8); Metamyelocytes # (M) 0.04 k/uL (0); Metamyelocytes % 1 %; Monocytes # (M) 0.22 k/uL (0-1.0); Neutrophils % (M) 73 %; Nucleated Red Blood Cells 0 /100 WBC (0-0); Total Cells Counted 200
[2017-09-04 06:51] LABS: Poikilocytosis (M) Present; Polychromasia Present
--- NOTE | 2017-09-04 07:12 | XR ---
EXAMINATION TYPE: XR chest 1V portable DATE OF EXAM: 09/04/2017 CLINICAL HISTORY: Difficulty breathing and fever progress study. History of known cirrhosis. TECHNIQUE: Single AP portable upright view of the chest is obtained. COMPARISON: Chest x-ray from 2 days earlier FINDINGS: There is stable right internal jugular Mediport catheter. There are persistent low lung vo lumes with left basilar opacity felt to reflect atelectasis and/or infiltrate. Small bilateral pleura l effusions remain present. Cardiac silhouette size is stable and within normal limits. Osseous struc tures are intact. IMPRESSION: Overall stable findings, low lung volumes with small bilateral pleural effusions and pe rsistent patchy left basilar atelectasis and/or infiltrate
--- NOTE | 2017-09-04 08:40 | P.PN ---
Subjective Progress Note Date: 09/04/17 Principal diagnosis: septic shock SBP ascites cirrhosis T-max 100.6. Renal function improving BUN 22. Creatinine 0.7. No complaints. Objective - Vital Signs Vital signs: Vital Signs Temp 99.2 F 09/04/17 04:00 Pulse 65 09/04/17 06:30 Resp 20 09/04/17 06:30 BP 101/52 09/04/17 06:30 Pulse Ox 97 09/04/17 06:30 Intake & Output 09/03/17 09/04/17 09/04/17 18:59 06:59 18:59 Intake Total 2295.750 1406.875 154.375 Output Total 0 300 Balance 2295.750 1106.875 154.375 Weight 74.1 kg Intake: IV 1800 1100 145 Albumin Human 5% 500 ml 600 As IVPB .[facility] Rx#: [id number] Dextrose 5%-0.9% NaCl 1, 1200 1100 20 000 ml @ 100 mls/hr IV . Q10H [facility] Rx#:[id number] Potassium Phosphate 10 125 mmol In Sodium Chloride 0 .9% 250 ml @ 125 mls/hr IV Q2H [facility] Rx#:[id number] Intake, IV Titration 395.750 306.875 9.375 Amount Norepinephrin 4 mg-0.9% 395.750 306.875 9.375 Ns Pmx 4 mg In 250 ml @ Titrate IV .Q0M [facility] Rx#: [id number] Oral 100 Output: Urine 0 300 Other: Voiding Method Bedside Commode Bedside Commode # Voids 0 0 - Exam General appearance: The patient is alert, oriented, in no acute distress. Jaundice. HET: Head is normocephalic and atraumatic. Pupils are equal and reactive. Sclera icterus. Oropharynx is clear without lesions. Neck: Supple without lymphadenopathy. Trachea midline. Heart: S1 S2. Regular rate and rhythm. Lungs: No crackles or wheezes are heard. Abdomen: Soft, nontender, mildly bloated paracentesis site with Band-Aid without drainage or bleeding with bowel sounds. No peritoneal signs. No palpable organomegaly or masses. Extremities: +1 bilateral lower extremity edema. Neurological: No focal deficits. Strength and sensation are grossly intact. - Labs CBC & Chem 7: 09/04/17 04:00 09/04/17 04:00 Labs: Abnormal Lab Results - Last 24 Hours (Table) 09/03/17 09/03/17 09/03/17 Range/Units 04:50 13:39 17:13 RBC 2.38 L (3.80-5.40) m/uL Hgb 8.1 L (11.4-16.0) gm/dL Hct 26.1 L (34.0-46.0) % MCV 109.4 H (80.0-100.0) fL RDW 15.6 H (11.5-15.5) % Plt Count 76 L D (150-450) k/uL Lymphocytes # 0.5 L (1.0-4.8) k/uL Lymphocytes # (Manual) (1.0-4.8) k/uL Metamyelocytes # (Man) (0) k/uL Chloride (98-107) mmol/L Carbon Dioxide (22-30) mmol/L BUN (7-17) mg/dL Glucose (74-99) mg/dL POC Glucose (mg/dL) 118 H 124 H (75-99) mg/dL Calcium (8.4-10.2) mg/dL Phosphorus (2.5-4.5) mg/dL 09/04/17 09/04/17 Range/Units 04:00 04:00 RBC 2.31 L (3.80-5.40) m/uL Hgb 7.9 L (11.4-16.0) gm/dL Hct 24.7 L (34.0-46.0) % MCV 106.9 H (80.0-100.0) fL RDW 15.7 H (11.5-15.5) % Plt Count 53 L (150-450) k/uL Lymphocytes # (1.0-4.8) k/uL Lymphocytes # (Manual) 0.57 L (1.0-4.8) k/uL Metamyelocytes # (Man) 0.04 H (0) k/uL Chloride 111 H (98-107) mmol/L Carbon Dioxide 18 L (22-30) mmol/L BUN 22 H (7-17) mg/dL Glucose 119 H (74-99) mg/dL POC Glucose (mg/dL) (75-99) mg/dL Calcium 7.2 L (8.4-10.2) mg/dL Phosphorus 1.9 L (2.5-4.5) mg/dL Microbiology - Last 24 Hours (Table) 09/02/17 04:25 Blood Culture - Preliminary Blood No Growth after 48 hours 09/02/17 18:45 Urine Culture - Preliminary Urine,Voided Gram Neg Bacilli 09/02/17 14:15 Gram Stain - Preliminary Paracentesis Fluid Body Fluid Culture - Preliminary 09/02/17 10:05 Blood Culture - Preliminary Blood No Growth after 24 hours 09/01/17 19:02 Blood Culture Gram Stain - Final Blood Blood Culture - Final Escherichia coli Assessment and Plan (1) Spontaneous bacterial peritonitis Narrative/Plan: Suspected SBP Current Visit: Yes Status: Acute Code(s): K65.2 - SPONTANEOUS BACTERIAL PERITONITIS SNOMED Code(s): 06062061 (2) Septic shock Current Visit: Yes Status: Acute Code(s): A41.9 - SEPSIS, UNSPECIFIED ORGANISM; R65.21 - SEVERE SEPSIS WITH SEPTIC SHOCK SNOMED Code(s): 58855674 (3) Gram-negative bacteremia Current Visit: Yes Status: Acute Code(s): R78.81 - BACTEREMIA SNOMED Code( s): 261471633273 (4) Ascites of liver Current Visit: Yes Status: Chronic Code(s): R18.8 - OTHER ASCITES SNOMED Code(s): 414748374 (5) Cirrhosis Current Visit: Yes Status: Chronic Code(s): K74.60 - UNSPECIFIED CIRRHOSIS OF LIVER SNOMED Code(s): 28368455 (6) Hepatitis C Current Visit: Yes Status: Chronic Code(s): B19.20 - UNSPECIFIED VIRAL HEPATITIS C WITHOUT HEPATIC COMA SNOMED Code(s): 88736126 (7) Abdominal pain Current Visit: No Status: Acute Code(s): R10.9 - UNSPECIFIED ABDOMINAL PAIN SNOMED Code(s): 10829609 (8) Portal hypertension Current Visit: Yes Status: Chronic Code(s): K76.6 - PORTAL HYPERTENSION SNOMED Code(s): 68889567 (9) Breast cancer Current Visit: Yes Status: Chronic Code(s): C50.919 - MALIGNANT NEOPLASM OF UNSP SITE OF UNSPECIFIED FEMALE BREAST SNOMED Code(s): 073670436 (10) Coagulopathy Current Visit: Yes Status: Acute Code(s): D68.9 - COAGULATION DEFECT, UNSPECIFIED SNOMED Code(s): 71474451 (11) Elevated liver enzymes Current Visit: Yes Status: Acute Code(s): R74.8 - ABNORMAL LEVELS OF OTHER SERUM ENZYMES SNOMED Code(s): 417277788 Plan: 1. ABX per ID. 2. Low salt diet. 3. CMP and INR pending. 4. Protonix 40 mg daily. 5. Recommend Lasix 40 mg daily. Aldactone 100 mg daily. Renal function has improved. Thank you for this kind referral and the opportunity to participate in the care of your patient. This consultation was discussed with Dr. Botello. The impression and plan of care have been directed as dictated.
--- NOTE | 2017-09-04 09:25 | P.PN ---
Subjective Progress Note Date: 09/04/17 Principal diagnosis: Acute septic shock secondary to urinary tract infection, blood culture was positive for E. coli, and urine culture is positive for gram-negative bacilli. Peritoneal fluid culture has shown no growth A 51-year-old female patient with previous history of liver cirrhosis secondary to chronic hepatitis C with stigmata of liver failure with chronic ascites requiring multiple paracentesis almost on a weekly basis. The last paracentesis was done as patient was on 08/27/2018. The patient came into the emergency department complaining of abdominal pain which was periumbilical and somewhat in epigastric area in addition to some nausea vomiting and a temperature of 101. CAT scan of the abdomen and pelvis was done in the emergency department and showed large amount of abdominal and pelvic fluid consistent with liver cirrhosis. Otherwise no other new abnormalities was noted. The patient continued to spike temperature and subsequently she became hypotensive with blood sugars running in the mid 80s. She also developed some mild lactic acidosis with level of 3.4 and a blood sugar was as low as 53. At that point, the patient got moved to the intensive care unit for further evaluation. The preliminary blood cultures showing gram-negative bacillus. The patient is currently on IV Rocephin 2 g every 24 hours. Overnight the patient was given fluids, 1 L bolus and she was placed on 0.9 and subsequently switched to D5 half-normal as the patient was having episodes of hypoglycemia at the rate of 150 mL an hour. At the time of my evaluation this morning, the patient's systolic blood pressure was in the mid 80s with a mean arterial pressure of 53. Her urine output was low and she denied passing any urine output since morning and the patient also declined to have a Calderon catheter inserted. The patient has a Mediport with seems to be clean and intact on surface. The patient had a soft abdomen. Immediately a TENS unit of ascitic fluid was aspirated and it was sent for culture to rule out possibility of spontaneous bacteria peritonitis. No melena. No diarrhea. No nausea or vomiting. She is lethargic yet she is arousable. No evidence of any GI bleeding. No confusion. No altered mentation. No skin rashes. No wounds or ulcers or sores at this point in time. The patient has liver cirrhosis and pancytopenia and chronic ascites related to liver cirrhosis. The patient has had previous esophageal banding. She also has history of breast cancer and she had her last chemotherapy back in October 2016 which she didn't tolerate and the chemotherapy regimen following that was reduced only to 3 cycles and was stopped. The patient has had previous history of upper GI bleeds. On today's evaluation of 09/03/2017, the patient is awake and alert and she is following commands and answering questions appropriately. She is not having any significant shortness of breath. No fever. She required pressors since yesterday the patient is currently on 4-5 mics of norepinephrine infusion for blood pressure control. Noted the patient had a large volume paracentesis yesterday and a total of 8 L of abdominal ascitic fluid was removed. There is no evidence of peritonitis based on the ascitic fluid analysis and the cultures are also negative from the ascitic fluid. UA was sent and urine culture is still pending for now. The patient has gram-negative bacillus and the blood which do not to be E. coli which is sensitive to Rocephin and the patient is still on 2 g of IV Rocephin every 24 hours. The patient has no abdominal pain. No nausea or vomiting. She has running a lower blood pressure with a systolic blood pressure in the mid 90s and a mean of 65. No GI bleeding. No other issues otherwise over the past 24 hours. Pulse ox is 93% on room air oxygen. On 09/04/2017 patient seen in follow-up in the intensive care unit. Patient is sleepy, but easily arousable to verbal stimuli, very irritable and at times verbally abusive with staff. She oriented 3, no signs of delirium. She remains on levo fed at 3 mics per minute, and her blood pressure is ranging from 90-100 systolic, and 40-60 diastolic, with a mean from 60-79 mmHg. Yesterday patient was given an additional 500 mL of 5% albumin. Patient had one episode of low-grade fever last night with a temp of 100.6F, afebrile this morning, denies any fever or chills. Peritoneal fluid culture has shown no growth so far, blood cultures are positive for E. coli, and urine cultures positive for gram-negative bacilli. She remains on IV Rocephin, and ID service is following. Lung sounds are clear to auscultation, patient denies any dyspnea. She is tolerating oral intake. She is incontinent of urine, she is reluctant to let staff assist her with a gown change and clean up. Abdomen is a bit distended but soft. We'll continue with current plan of care, continue weaning norepinephrine. Objective - Vital Signs Vital signs: Vital Signs Temp 99.2 F 09/04/17 04:00 Pulse 69 09/04/17 08:00 Resp 22 09/04/17 08:00 BP 91/45 09/04/17 08:00 Pulse Ox 97 09/04/17 08:00 Intake & Output 09/03/17 09/04/17 09/04/17 18:59 06:59 18:59 Intake Total 2295.750 1406.875 299.375 Output Total 0 300 50 Balance 2295.750 1106.875 249.375 Weight 74.1 kg Intake: IV 1800 1100 290 Albumin Human 5% 500 ml 600 As IVPB .[facility] Rx#: [id number] Dextrose 5%-0.9% NaCl 1, 1200 1100 40 000 ml @ 100 mls/hr IV . Q10H [facility] Rx#:[id number] Potassium Phosphate 10 250 mmol In Sodium Chloride 0 .9% 250 ml @ 125 mls/hr IV Q2H [facility] Rx#:[id number] Intake, IV Titration 395.750 306.875 9.375 Amount Norepinephrin 4 mg-0.9% 395.750 306.875 9.375 Ns Pmx 4 mg In 250 ml @ Titrate IV .Q0M [facility] Rx#: [id number] Oral 100 Output: Urine 0 300 50 Other: Voiding Method Bedside Commode Bedside Commode # Voids 0 0 - Exam Gen. appearance the patient is cachectic thin and frail nonacute distress. Patient is sleepy, but easily arousable, oriented 3, irritable Head exam was generally normal. There was no scleral icterus or corneal arcus. Mucous membranes were moist. Neck was supple and without jugular venous distension, thyromegaly, or carotid bruits. Carotids were easily palpable bilaterally. There was no adenopathy.The patient is conjunctival icterus and pallor. Lungs were clear to auscultation and percussion, and with normal diaphragmatic excursion. No wheezes or rales were noted. Cardiac exam revealed the PMI to be normally situated and sized. The rhythm was regular and no extrasystoles were noted during several minutes of auscultation. The first and second heart sounds were normal and physiologic splitting of the second heart sound was noted. There were no murmurs, rubs, clicks, or gallops. Abdomen is slightly distended there is evidence of fluid wave and shifting dullness consistent with ascites. No direct tenderness. No rebound tenderness. No guarding. Bowel sounds are hypoactive at the present. Examination of the extremities revealed easily palpable radial, femoral and pedal pulses. There was no cyanosis, clubbing or edema. Examination of the skin revealed no evidence of significant rashes, suspicious appearing nevi or other concerning lesions. Neurologically the patient is awake and alert and there is no signs of any encephalopathy at this point. - Labs CBC & Chem 7: 09/04/17 04:00 09/04/17 04:00 Labs: Abnormal Lab Results - Last 24 Hours (Table) 09/03/17 09/03/17 09/04/17 Range/Units 13:39 17:13 04:00 RBC 2.31 L (3.80-5.40) m/uL Hgb 7.9 L (11.4-16.0) gm/dL Hct 24.7 L (34.0-46.0) % MCV 106.9 H (80.0-100.0) fL RDW 15.7 H (11.5-15.5) % Plt Count 53 L (150-450) k/uL Lymphocytes # (Manual) 0.57 L (1.0-4.8) k/uL Metamyelocytes # (Man) 0.04 H (0) k/uL Chloride (98-107) mmol/L Carbon Dioxide (22-30) mmol/L BUN (7-17) mg/dL Glucose (74-99) mg/dL POC Glucose (mg/dL) 118 H 124 H (75-99) mg/dL Calcium (8.4-10.2) mg/dL Phosphorus (2.5-4.5) mg/dL 09/04/17 Range/Units 04:00 RBC (3.80-5.40) m/uL Hgb (11.4-16.0) gm/dL Hct (34.0-46.0) % MCV (80.0-100.0) fL RDW (11.5-15.5) % Plt Count (150-450) k/uL Lymphocytes # (Manual) (1.0-4.8) k/uL Metamyelocytes # (Man) (0) k/uL Chloride 111 H (98-107) mmol/L Carbon Dioxide 18 L (22-30) mmol/L BUN 22 H (7-17) mg/dL Glucose 119 H (74-99) mg/dL POC Glucose (mg/dL) (75-99) mg/dL Calcium 7.2 L (8.4-10.2) mg/dL Phosphorus 1.9 L (2.5-4.5) mg/dL Microbiology - Last 24 Hours (Table) 09/02/17 04:25 Blood Culture - Preliminary Blood No Growth after 48 hours 09/02/17 18:45 Urine Culture - Preliminary Urine,Voided Gram Neg Bacilli 09/02/17 14:15 Gram Stain - Preliminary Paracentesis Fluid Body Fluid Culture - Preliminary 09/02/17 10:05 Blood Culture - Preliminary Blood No Growth after 24 hours 09/01/17 19:02 Blood Culture Gram Stain - Final Blood Blood Culture - Final Escherichia coli Assessment and Plan Plan: Assessment: 1 acute septic shock secondary to E. coli. The sources was thought tospontaneous bacterial peritonitis. Nevertheless, the cellular count and the culture of the ascitic fluid came back negative. Doppler any other alternative source of E. coli infection in this patient. ID is on the case. The patient on a combination of fluids, IV Rocephin and pressors for hemodynamics support. Currently she is on 4-5 mics of levo fed for blood pressure support. 2 acute hypotension secondary to above and the patient is currently resuscitated IV fluids. Patient was started on IV Rocephin 2 g every 24 hours. 3 liver cirrhosis 4 hepatitis C 5 chronic ascites requiring periodic paracentesis almost on a weekly basis. The patient had a large old paracentesis yesterday without a total of 8liters of ascitic fluid was aspirated. 6 coagulopathy and chronic thrombocytopenia related to alcoholism and liver cirrhosis 7 breast cancer status post systemic chemotherapy 8 previous episodes of upper GI bleed secondary to portal hypertension and esophageal varices 9 chronic anemia 10 acid reflux 11 hypertension, history of 12 hypoproteinemia and albuminemia secondary to above 13 mild lactic acidosis secondary to above, improving 14 acute kidney injury in the setting of hypotension and sepsis. Patient's creatinine is up to 1.3 and she is oliguric. Plan Wean norepinephrine drip, patient's hemodynamic status has improved, yesterday she was given an additional 500 mL of 5% albumin. She is tolerating oral intake , she is nonoliguric. Renal profile is improving. Yesterday patient was given some sodium bicarbonate for a mild metabolic acidosis, serum cortisol was within normal limits at 12, plasma lactic acid is within normal limits at 1.6. Continue Rocephin, source of patient's infection seems to be acute urinary tract infection. I performed a history & physical examination of the patient and discussed their management with my nurse practitioner, Kathryn Lloyd. I reviewed the nurse practitioner's note and agree with the documented findings and plan of care. Lung sounds are clear. The findings and the impression was discussed with the patient. I attest to the documentation by the nurse practitioner. Time with Patient: Greater than 30
[2017-09-04] MEDS: MAGNESIUM SULFATE-D5W PMX 1 GM in DEXTROSE/WATER 1 100ML.BAG IVPB SCH ×2 (09:36→12:55)
[2017-09-04 12:12] LABS: Glucose,Whole Blood 106 mg/dL (75-99)
[2017-09-04 13:41] LABS: ALT 31 U/L (9-52); AST 42 U/L (14-36); Albumin 1.9 g/dL (3.5-5.0); Alkaline Phosphatase 117 U/L (38-126); Total Protein 4.4 g/dL (6.3-8.2)
[2017-09-04 14:50] LABS: INR 1.3 (<1.2); Prothrombin Time 12.5 sec (9.0-12.0)
--- NOTE | 2017-09-04 16:57 | PN ---
PROGRESS NOTE CHIEF COMPLAINT: 1. Septicemia. 2. Probable peritonitis. 3. Cirrhosis. 4. Hepatitis C. 5. Portal hypertension. 6. Intractable ascites. 7. Cancer of the breast. HISTORY OF PRESENT ILLNESS: This lady is just about the same. She remains hypotensive. She is quite lethargic. Pain is better. PHYSICAL EXAMINATION: Breath sounds are quite clear. Cardiac exam is normal. The abdomen is protuberant and firm and paper machine tender. Bowel sounds are not heard. IMPRESSION: 1. Sepsis. 2. Probable peritonitis. 3. Cirrhosis. 4. Hepatitis C. 5. Portal hypertension. 6. Ascites. 7. Carcinoma of the breast. PLAN: No change in program. Continue supportive care. MMODL / IJN: [id number] /
--- NOTE | 2017-09-04 17:54 | P.PN ---
Subjective Progress Note Date: 09/04/17 51-year-old female who has multiple medical troubles that includes her triple negative breast carcinoma and her chronic active hepatitis C with cirrhosis and chronic refractory ascites that has required multiple admissions and multiple paracentesis. She has beem treated with Epculusa for her hepatitis C. She continues to have cirrhosis with her significant and refractory ascites that has required multiple paracentesis and is up to almost weekly paracentesis. Last one was done on August 27. Patient presented to [facility] emergency center with complaints of upper abdominal pain in epigastric and periumbilical areas with nausea and vomiting and fever of 101. CAT scan of the abdomen and pelvis showed recurrent large amount of abdominal pelvic fluid. No new or unexpected findings. She is found to have a temperature max of 102.4 with hypotension, white count 3.2, platelet count 83 and hemoglobin 8.9. Creatinine 0.78. Lactic acid was 3.4. Blood sugar 53. Total bilirubin is now 6.4, AST 65, ALT 38, alkaline phosphatase 179, albumin is 1.9. Patient was initially admitted to the floor and then transferred to the intensive care unit due to lactic acidosis and hypotension. She is not on vasopressors. Blood pressures are being obtained from her thigh. Patient denies any abdominal pain at the time of my eval. She is very vague gives limited information. Consult in place with Dr. Gerard for intensive care management and Dr. Joseph. Blood culture is showing gram-negative bacilli. She does have a previous positive blood culture in July with staff epidermidis. 09/03/2017 culture now reveals ecoli susceptibility adequate to Rocephin. 09/04/2017 patient still acting out to the nurses, but cooperative with observer. Afebrile but still on levophed. Objective - Vital Signs Vital signs: Vital Signs Temp 98.8 F 09/04/17 16:00 Pulse 94 09/04/17 16:00 Resp 22 09/04/17 16:00 BP 86/52 09/04/17 16:00 Pulse Ox 98 09/04/17 16:00 Intake & Output 09/03/17 09/04/17 09/04/17 18:59 06:59 18:59 Intake Total 2295.750 5074.599 0578.250 Output Total 0 300 350 Balance 2295.750 1106.875 974.250 Weight 74.1 kg 74.1 kg Intake: IV 1800 1100 1185 Albumin Human 5% 500 ml 600 As IVPB .STK[facility] Rx#: [id number] Dextrose 5%-0.9% NaCl 1, 1200 1100 360 000 ml @ 100 mls/hr IV . Q10H [facility] Rx#:[id number] Potassium Phosphate 10 625 mmol In Sodium Chloride 0 .9% 250 ml @ 125 mls/hr IV Q2H [facility] Rx#:[id number] magnesium 200 Intake, IV Titration 395.750 306.875 139.250 Amount Norepinephrin 4 mg-0.9% 395.750 306.875 139.250 Ns Pmx 4 mg In 250 ml @ Titrate IV .Q0M [facility] Rx#: [id number] Oral 100 Output: Urine 0 300 350 Other: Voiding Method Bedside Commode Bedside Commode Bedside Commode # Voids 0 0 1 - Exam Gen: This is a thin cachectic appearing female 51 years old. She is lying in the ICU bed and appears to be comfortable. She has a hat over her eyes and refuses to have exam of her face and eyes. Patient is crying out in pain to minimal stimuli. She has blood pressure cuff on her right thigh for which she yells to have it removed. LUNGS: Clear to auscultation. No wheezes or rhonchi. No intercostal retractions. HEART: Patient refused. Port to the right upper anterior chest wall is tender to light touch. Patient appears to be hypersensitive. ABDOMEN: Soft. Distended and. Positive ascites. Bowel sounds are present. No tenderness. EXTREMITIES: +1 pedal edema. Dorsalis pedis +2 bilaterally. NEUROLOGICAL: now more awake and alert - Labs CBC & Chem 7: 09/04/17 04:00 09/04/17 04:00 Labs: Abnormal Lab Results - Last 24 Hours (Table) 09/04/17 09/04/17 09/04/17 Range/Units 04:00 04:00 12:05 RBC 2.31 L (3.80-5.40) m/uL Hgb 7.9 L (11.4-16.0) gm/dL Hct 24.7 L (34.0-46.0) % MCV 106.9 H (80.0-100.0) fL RDW 15.7 H (11.5-15.5) % Plt Count 53 L (150-450) k/uL Lymphocytes # (Manual) 0.57 L (1.0-4.8) k/uL Metamyelocytes # (Man) 0.04 H (0) k/uL PT (9.0-12.0) sec INR (<1.2) Chloride 111 H (98-107) mmol/L Carbon Dioxide 18 L (22-30) mmol/L BUN 22 H (7-17) mg/dL Glucose 119 H (74-99) mg/dL POC Glucose (mg/dL) 106 H (75-99) mg/dL Calcium 7.2 L (8.4-10.2) mg/dL Phosphorus 1.9 L (2.5-4.5) mg/dL Total Bilirubin 3.0 H (0.2-1.3) mg/dL AST 42 H (14-36) U/L Total Protein 4.4 L (6.3-8.2) g/dL Albumin 1.9 L (3.5-5.0) g/dL 09/04/17 Range/Units 13:58 RBC (3.80-5.40) m/uL Hgb (11.4-16.0) gm/dL Hct (34.0-46.0) % MCV (80.0-100.0) fL RDW (11.5-15.5) % Plt Count (150-450) k/uL Lymphocytes # (Manual) (1.0-4.8) k/uL Metamyelocytes # (Man) (0) k/uL PT 12.5 H (9.0-12.0) sec INR 1.3 H (<1.2) Chloride (98-107) mmol/L Carbon Dioxide (22-30) mmol/L BUN (7-17) mg/dL Glucose (74-99) mg/dL POC Glucose (mg/dL) (75-99) mg/dL Calcium (8.4-10.2) mg/dL Phosphorus (2.5-4.5) mg/dL Total Bilirubin (0.2-1.3) mg/dL AST (14-36) U/L Total Protein (6.3-8.2) g/dL Albumin (3.5-5.0) g/dL Microbiology - Last 24 Hours (Table) 09/02/17 10:05 Blood Culture - Preliminary Blood No Growth after 48 hours 09/02/17 04:25 Blood Culture - Preliminary Blood No Growth after 48 hours 09/02/17 18:45 Urine Culture - Preliminary Urine,Voided Gram Neg Bacilli 09/02/17 14:15 Gram Stain - Preliminary Paracentesis Fluid Body Fluid Culture - Preliminary Laboratory Results WBC 4.4 k/uL (3.8-10.6) 09/04/17 04:00 RBC 2.31 m/uL (3.80-5.40) L 09/04/17 04:00 Hgb 7.9 gm/dL (11.4-16.0) L 09/04/17 04:00 Hct 24.7 % (34.0-46.0) L 09/04/17 04:00 MCV 106.9 fL (80.0-100.0) H 09/04/17 04:00 MCH 34.2 pg (25.0-35.0) 09/04/17 04:00 MCHC 32.0 g/dL (31.0-37.0) 09/04/17 04:00 RDW 15.7 % (11.5-15.5) H 09/04/17 04:00 Plt Count 53 k/uL (150-450) L 09/04/17 04:00 Neutrophils % 84 % 09/03/17 04:50 Neutrophils % (Manual) 73 % 09/04/17 04:00 Band Neutrophils % 9 % 09/04/17 04:00 Lymphocytes % 7 % 09/03/17 04:50 Lymphocytes % (Manual) 13 % 09/04/17 04:00 Monocytes % 5 % 09/03/17 04:50 Monocytes % (Manual) 5 % 09/04/17 04:00 Eosinophils % 1 % 09/03/17 04:50 Eosinophils % (Manual) 1 % 09/04/17 04:00 Basophils % 0 % 09/03/17 04:50 Metamyelocytes % 1 % 09/04/17 04:00 Neutrophils # 5.9 k/uL (1.3-7.7) 09/03/17 04:50 Neutrophils # (Manual) 3.60 k/uL (1.3-7.7) 09/04/17 04:00 Lymphocytes # 0.5 k/uL (1.0-4.8) L 09/03/17 04:50 Lymphocytes # (Manual) 0.57 k/uL (1.0-4.8) L 09/04/17 04:00 Monocytes # 0.4 k/uL (0-1.0) 09/03/17 04:50 Monocytes # (Manual) 0.22 k/uL (0-1.0) 09/04/17 04:00 Eosinophils # 0.1 k/uL (0-0.7) 09/03/17 04:50 Eosinophils # (Manual) 0.04 k/uL (0-0.7) 09/04/17 04:00 Basophils # 0.0 k/uL (0-0.2) 09/03/17 04:50 Metamyelocytes # (Man) 0.04 k/uL (0) H 09/04/17 04:00 Nucleated RBCs 0 /100 WBC (0-0) 09/04/17 04:00 Manual Slide Review Performed 09/04/17 04:00 Toxic Granulation Present 09/03/17 04:50 Toxic Vacuolation Present 09/03/17 04:50 Polychromasia Present 09/04/17 04:00 Hypochromasia Moderate 09/04/17 04:00 Poikilocytosis (manual Present 09/04/17 04:00 Anisocytosis Slight 09/02/17 04:25 Macrocytosis Marked 09/04/17 04:00 PT 12.5 sec (9.0-12.0) H 09/04/17 13:58 INR 1.3 (<1.2) H 09/04/17 13:58 APTT 38.0 sec (22.0-30.0) H 09/01/17 13:50 Sodium 138 mmol/L (137-145) 09/04/17 04:00 Potassium 3.8 mmol/L (3.5-5.1) 09/04/17 04:00 Chloride 111 mmol/L (98-107) H 09/04/17 04:00 Carbon Dioxide 18 mmol/L (22-30) L 09/04/17 04:00 Anion Gap 9 mmol/L 09/04/17 04:00 BUN 22 mg/dL (7-17) H 09/04/17 04:00 Creatinine 0.70 mg/dL (0.52-1.04) 09/04/17 04:00 Est GFR (CKD-EPI)AfAm >90 (>60 ml/min/1.73 sqM) 09/04/17 04:00 Est GFR (CKD-EPI)NonAf >90 (>60 ml/min/1.73 sqM) 09/04/17 04:00 Glucose 119 mg/dL (74-99) H 09/04/17 04:00 POC Glucose (mg/dL) 106 mg/dL (75-99) H 09/04/17 12:05 POC Glu [place] Inspector ID 09/04/17 12:05 Lactic Ac Sepsis Rflx Y 09/02/17 05:18 Plasma Lactic Acid [place] 1.6 mmol/L (0.7-2.0) 09/03/17 11:55 Calcium 7.2 mg/dL (8.4-10.2) L 09/04/17 04:00 Phosphorus 1.9 mg/dL (2.5-4.5) L 09/04/17 04:00 Magnesium 1.9 mg/dL (1.6-2.3) 09/04/17 04:00 Total Bilirubin 3.0 mg/dL (0.2-1.3) H 09/04/17 04:00 AST 42 U/L (14-36) H 09/04/17 04:00 ALT 31 U/L (9-52) 09/04/17 04:00 Alkaline Phosphatase 117 U/L (38-126) 09/04/17 04:00 Ammonia <9 umol/L (<30) 09/02/17 10:05 Total Protein 4.4 g/dL (6.3-8.2) L 09/04/17 04:00 Albumin 1.9 g/dL (3.5-5.0) L 09/04/17 04:00 Amylase 36 U/L (30-110) 09/01/17 13:50 Lipase 55 U/L (23-300) 09/01/17 13:50 Cortisol 12 ug/dL 09/03/17 11:55 Urine Color Dark Brown 09/02/17 18:45 Urine Appearance Cloudy (Clear) H 09/02/17 18:45 Urine pH 5.0 (5.0-8.0) 09/02/17 18:45 Ur Specific [place] 1.023 (1.001-1.035) 09/02/17 18:45 Urine Protein 1+ (Negative) H 09/02/17 18:45 Urine Glucose (UA) Negative (Negative) 09/02/17 18:45 Urine Ketones Trace (Negative) H 09/02/17 18:45 Urine Blood Negative (Negative) 09/02/17 18:45 Urine Nitrite Negative (Negative) 09/02/17 18:45 Urine Bilirubin 3+ (Negative) H 09/02/17 18:45 Urine Urobilinogen 8.0 mg/dL (<2.0) 09/02/17 18:45 Ur Leukocyte Esterase Moderate (Negative) H 09/02/17 18:45 Urine RBC 7 /hpf (0-5) H 09/02/17 18:45 Urine WBC 22 /hpf (0-5) H 09/02/17 18:45 Ur Squamous Epith Cells 6 /hpf (0-4) H 09/02/17 18:45 Amorphous Sediment Rare /hpf (None) H 09/02/17 18:45 Urine Bacteria Many /hpf (None) H 09/02/17 18:45 Hyaline Casts 26 /lpf (0-2) H 09/02/17 18:45 Urine Mucus Few /hpf (None) H 09/02/17 18:45 Fluid Source Peritoneal 09/02/17 14:15 Fluid Color [place] 09/02/17 14:15 Fluid Appearance Hazy 09/02/17 14:15 Fluid RBC 6300 /uL 09/02/17 14:15 Fluid Nucleated Cells 50 /uL 09/02/17 14:15 Fluid Polynuclear WBCs 94 % 09/02/17 14:15 Fluid Mononuclear WBCs 6 % 09/02/17 14:15 Body Fluid Protein Source Paracentesis Fluid 09/02/17 14:15 Fluid Total Protein 989 mg/dL 09/02/17 14:15 Fluid Comment Moderate Mesothelial 09/02/17 14:15 Microbiology 09/02/17 10:05 Blood Blood Culture - Preliminary No Growth after 48 hours 09/02/17 04:25 Blood Blood Culture - Preliminary No Growth after 48 hours 09/02/17 18:45 Urine,Voided Urine Culture - Preliminary Gram Neg Bacilli 09/02/17 14:15 Paracentesis Fluid Gram Stain - Preliminary 09/02/17 14:15 Paracentesis Fluid Body Fluid Culture - Preliminary 09/01/17 19:02 Blood Blood Culture Gram Stain - Final 09/01/17 19:02 Blood Blood Culture - Final Escherichia coli 09/02/17 14:15 Ascites Fluid Anaerobic Culture - Preliminary 09/01/17 19:02 Blood Blood Culture - Final Assessment and Plan (1) Spontaneous bacterial peritonitis Current Visit: Yes Status: Acute Code(s): K65.2 - SPONTANEOUS BACTERIAL PERITONITIS SNOMED Code(s): 34368134 (2) Gram-negative bacteremia Narrative/Plan: The patient is receiving a high-volume paracentesis and she seems to be tolerating it very well. However on the prior events she has now developed sepsis and is evidence of hypotension and evidence of gram-negative bacilli in her blood. Spontaneous bacterial peritonitis is the most likely etiology of her current sepsis and antibiotic therapy was initiated with ceftriaxone when the consult was called. The patient is having some improvement of her status. Cultures were further help direct the course of antibiotic therapy at discharge. If possible at discharge after the acute bout of sepsis is been treated she should then be placed on chronic suppressive antibiotic therapy to prevent recurrences of her spontaneous bacterial peritonitis. Ofloxacin or ciprofloxacin would be ideal choices given her current level of illness. On 09/03/2017 patient remains ill on levophed still. Rocephin is adequate choice for the e coli sepsis. repeat blood cultures are negative so far. 09/04/2017 patient improved and on less levophed but still ill, the source of sepsis is still most likely SBP with bacteremia. continue with Rocephin and will have a plan for oral antibiotics at discharge. Current Visit: Yes Status: Acute Code(s): R78.81 - BACTEREMIA SNOMED Code( s): 773948150453 (3) Cirrhosis Current Visit: Yes Status: Chronic Code(s): K74.60 - UNSPECIFIED CIRRHOSIS OF LIVER SNOMED Code(s): 83158937
[2017-09-05 05:02] LABS: Anion Gap 6 mmol/L; Blood Urea Nitrogen 16 mg/dL (7-17); Calcium 7.1 mg/dL (8.4-10.2); Carbon Dioxide 20 mmol/L (22-30); Chloride 111 mmol/L (98-107); Glucose 120 mg/dL (74-99); HGB 7.6 gm/dL (11.4-16.0); Hypochromasia Marked; MCH 33.2 pg (25.0-35.0); MCHC 30.5 g/dL (31.0-37.0); MCV 108.9 fL (80.0-100.0); Macrocytosis Marked; Magnesium 2.2 mg/dL (1.6-2.3); Mean Platelet Volume 8.9; Phosphorus 1.9 mg/dL (2.5-4.5); RDW 15.8 % (11.5-15.5); Sodium 137 mmol/L (137-145); WBC 3.1 k/uL (3.8-10.6)
[2017-09-05 06:00] LABS: Band Neutrophils % 1 %; Eosinophils # (M) 0.06 k/uL (0-0.7); Monocytes # (M) 0.65 k/uL (0-1.0); Neutrophils % (M) 63 %; Nucleated Red Blood Cells 0 /100 WBC (0-0); Total Cells Counted 100
[2017-09-05] MEDS: cefTRIAXone IN SWFI 2,000 MG/20 ML SYRINGE IVP SCH (06:02)
[2017-09-05] MEDS: HYDROcodone/APAP 5-325MG 1 EACH TAB PO PRN ×3 (06:02→22:38)
[2017-09-05 06:04] LABS: Platelet Count 45 k/uL (150-450)
[2017-09-05] MEDS ORDERED: Phosphorus Replacement Protoco 1 EACH MISC MISCELLANE PRN (07:04)
--- NOTE | 2017-09-05 08:06 | XR ---
EXAMINATION TYPE: XR chest 1V portable DATE OF EXAM: 09/05/2017 HISTORY: Shortness of breath. COMPARISON: 09/04/2017 TECHNIQUE: Single view of the chest is submitted. FINDINGS: Demonstrated are scattered senescent parenchymal change. Persistent pulmonary venous congestion with left basilar atelectasis, infiltrate and/or effusion. Mil d patchy density right medial lung base. The heart is stable. Hilar and mediastinal structures are within normal limits. Degenerative changes are seen of the dorsal spine. MediPort catheter is in place. IMPRESSION: 1. Stable examination.
[2017-09-05] MEDS: SODIUM PHOSPHATE 10 MMOL in SODIUM CHLORIDE 0.9% 250 ML IV SCH ×2 (08:30→10:25)
[2017-09-05] MEDS: DEXTROSE 5%-0.9% NACL 1,000 ML IV SCH (08:55)
--- NOTE | 2017-09-05 09:53 | PN ---
PROGRESS NOTE DATE OF DICTATION: 09/05/2017 Patient is a 51-year-old pleasant white female with history of cirrhosis of the liver secondary to chronic hepatitis C infection, for which she is at present being treated with Epclusa for the last 6 months' duration, which was started by Hepatology at [facility]. She was admitted to the hospital with sepsis/SBP. She is at present on broad-spectrum antibiotics and Dr. Jacobson is following the patient closely. Overall she is feeling much better. She feels somewhat tired. She does complain of abdominal distention but no abdominal pain. She denies any nausea, vomiting. No fever, chills or night sweats. She remains hypotensive and on pressors at present. PHYSICAL EXAMINATION: She appears comfortable. No apparent distress. Vital signs are stable. Blood pressure is 104/54, pulse rate 71, temperature 98. HEENT EXAMINATION: Unremarkable. Conjunctivae pink. Sclerae anicteric. Oral cavity no lesions. NECK: No JVD or lymph node enlargement. Chest was clear to auscultation. HEART: Regular rate and rhythm. ABDOMEN: Soft. It was distended. There was fluid thrill noted. EXTREMITIES: No pedal edema. SKIN: No rashes. NEURO: Alert and oriented x3. No focal deficits. LABS FROM TODAY: WBC 3.1, hemoglobin 7.6, platelets of 45,000. BUN is 6, creatinine 0.5. Total bilirubin yesterday was 3, AST 42, ALT 31. Albumin 1.9. IMPRESSION: 1. Sepsis/spontaneous bacterial peritonitis, on broad-spectrum antibiotic with Rocephin; patient doing better. 2. Hypertension. Still remains on pressors. 3. Ascites, for which she is undergoing large-volume paracentesis more frequently in the last one month. Her last one was on August 27; 8 L of fluid was removed. 4. Cirrhosis/hepatitis C. On Epclusa for the last 5 to 6 months. RECOMMENDATIONS: 1. Continue with broad-spectrum antibiotics. 2. I will obtain hepatitis C viral RNA to see her response with Epclusa, which she has been receiving for the last 6 months. 3. Once her blood pressure improves, we can start her on diuretics with Lasix and Aldactone, as recommended previously. 4. Low-salt diet. 5. Will follow the patient closely during her hospital stay. Thank you for this consultation. MMODL / IJN: [id number] /
[2017-09-05] MEDS: ONDANSETRON 4 MG/2 ML VIAL IVP PRN ×2 (11:17→20:23)
[2017-09-05 11:28] LABS: Glucose,Whole Blood 98 mg/dL (75-99)
--- NOTE | 2017-09-05 12:13 | P.PN ---
Subjective Progress Note Date: 09/05/17 A 51-year-old female patient with previous history of liver cirrhosis secondary to chronic hepatitis C with stigmata of liver failure with chronic ascites requiring multiple paracentesis almost on a weekly basis. The last paracentesis was done as patient was on 08/27/2018. The patient came into the emergency department complaining of abdominal pain which was periumbilical and somewhat in epigastric area in addition to some nausea vomiting and a temperature of 101. CAT scan of the abdomen and pelvis was done in the emergency department and showed large amount of abdominal and pelvic fluid consistent with liver cirrhosis. Otherwise no other new abnormalities was noted. The patient continued to spike temperature and subsequently she became hypotensive with blood sugars running in the mid 80s. She also developed some mild lactic acidosis with level of 3.4 and a blood sugar was as low as 53. At that point, the patient got moved to the intensive care unit for further evaluation. The preliminary blood cultures showing gram-negative bacillus. The patient is currently on IV Rocephin 2 g every 24 hours. Overnight the patient was given fluids, 1 L bolus and she was placed on 0.9 and subsequently switched to D5 half-normal as the patient was having episodes of hypoglycemia at the rate of 150 mL an hour. At the time of my evaluation this morning, the patient's systolic blood pressure was in the mid 80s with a mean arterial pressure of 53. Her urine output was low and she denied passing any urine output since morning and the patient also declined to have a Calderon catheter inserted. The patient has a Mediport with seems to be clean and intact on surface. The patient had a soft abdomen. Immediately a TENS unit of ascitic fluid was aspirated and it was sent for culture to rule out possibility of spontaneous bacteria peritonitis. No melena. No diarrhea. No nausea or vomiting. She is lethargic yet she is arousable. No evidence of any GI bleeding. No confusion. No altered mentation. No skin rashes. No wounds or ulcers or sores at this point in time. The patient has liver cirrhosis and pancytopenia and chronic ascites related to liver cirrhosis. The patient has had previous esophageal banding. She also has history of breast cancer and she had her last chemotherapy back in October 2016 which she didn't tolerate and the chemotherapy regimen following that was reduced only to 3 cycles and was stopped. The patient has had previous history of upper GI bleeds. On today's evaluation of 09/03/2017, the patient is awake and alert and she is following commands and answering questions appropriately. She is not having any significant shortness of breath. No fever. She required pressors since yesterday the patient is currently on 4-5 mics of norepinephrine infusion for blood pressure control. Noted the patient had a large volume paracentesis yesterday and a total of 8 L of abdominal ascitic fluid was removed. There is no evidence of peritonitis based on the ascitic fluid analysis and the cultures are also negative from the ascitic fluid. UA was sent and urine culture is still pending for now. The patient has gram-negative bacillus and the blood which do not to be E. coli which is sensitive to Rocephin and the patient is still on 2 g of IV Rocephin every 24 hours. The patient has no abdominal pain. No nausea or vomiting. She has running a lower blood pressure with a systolic blood pressure in the mid 90s and a mean of 65. No GI bleeding. No other issues otherwise over the past 24 hours. Pulse ox is 93% on room air oxygen. On 09/04/2017 patient seen in follow-up in the intensive care unit. Patient is sleepy, but easily arousable to verbal stimuli, very irritable and at times verbally abusive with staff. She oriented 3, no signs of delirium. She remains on levo fed at 3 mics per minute, and her blood pressure is ranging from 90-100 systolic, and 40-60 diastolic, with a mean from 60-79 mmHg. Yesterday patient was given an additional 500 mL of 5% albumin. Patient had one episode of low-grade fever last night with a temp of 100.6F, afebrile this morning, denies any fever or chills. Peritoneal fluid culture has shown no growth so far, blood cultures are positive for E. coli, and urine cultures positive for gram-negative bacilli. She remains on IV Rocephin, and ID service is following. Lung sounds are clear to auscultation, patient denies any dyspnea. She is tolerating oral intake. She is incontinent of urine, she is reluctant to let staff assist her with a gown change and clean up. Abdomen is a bit distended but soft. We'll continue with current plan of care, continue weaning norepinephrine. On 2017, the patient is off pressors and levo fed infusion was stopped around 6 AM this morning. The patient is maintaining home blood pressure. She is afebrile. She is producing urine output. Abdomen is distended and his consistent with ascites. Urine culture turn down worker to be positive for salmonella species. Blood culture was positive for E. coli and the patient was treated with IV Rocephin 2 g every 24 hours. The significance of salmonella and the urine is not clear to me at this point. This needs to be further discussed with infectious disease. In any rate, the patient is responding nicely. She is sleepy and lethargic yet she is arousable and she follows commands and answering questions. She is not pleasant. She is not happy with the whole experience of being in the hospital and she is not night at all to the nursing staff. She makes very irritating comments about her hospitalization and care in general. This has made the medical staff quite uncomfortable taking care of her. For example, she threw a bedpan at one of the nurses aides with fecal material and I spoke to her at length and I told her that this type of behavior is completely unacceptable in a hospital setting. I do not think that there is any altered mentation. I think she is very competent and she is aware of her behavior. We'll try to stabilize her condition as soon as possible and try to get out of the intensive care unit. Hemoglobin is is stable at 7.6. Platelet count is up to 45. She is tolerating her diet. No evidence of any GI bleed. Objective - Vital Signs Vital signs: Vital Signs Temp 98.6 F 09/05/17 08:00 Pulse 69 09/05/17 11:00 Resp 14 09/05/17 11:00 BP 98/58 09/05/17 11:00 Pulse Ox 95 09/05/17 11:00 Intake & Output 09/04/17 09/05/17 09/05/17 18:59 06:59 18:59 Intake Total 9723.191 4698.875 200 Output Total 350 300 Balance 6069.804 2236.875 200 Weight 74.1 kg 77.6 kg Intake: IV 1385 1200 200 Dextrose 5%-0.9% NaCl 1, 560 1200 200 000 ml @ 100 mls/hr IV . Q10H [facility] Rx#:[id number] Potassium Phosphate 10 625 mmol In Sodium Chloride 0 .9% 250 ml @ 125 mls/hr IV Q2H [facility] Rx#:[id number] magnesium 200 Intake, IV Titration 139.250 165.875 Amount Norepinephrin 4 mg-0.9% 139.250 165.875 Ns Pmx 4 mg In 250 ml @ Titrate IV .Q0M [facility] Rx#: [id number] Output: Urine 350 300 Other: Voiding Method Bedside Commode Bedside Commode Bedside Commode # Voids 1 1 1 - Exam Gen. appearance the patient is cachectic thin and frail nonacute distress. Head exam was generally normal. There was no scleral icterus or corneal arcus. Mucous membranes were moist. Neck was supple and without jugular venous distension, thyromegaly, or carotid bruits. Carotids were easily palpable bilaterally. There was no adenopathy.The patient is conjunctival icterus and pallor. Lungs were clear to auscultation and percussion, and with normal diaphragmatic excursion. No wheezes or rales were noted. Cardiac exam revealed the PMI to be normally situated and sized. The rhythm was regular and no extrasystoles were noted during several minutes of auscultation. The first and second heart sounds were normal and physiologic splitting of the second heart sound was noted. There were no murmurs, rubs, clicks, or gallops. Abdomen is slightly distended there is evidence of fluid wave and shifting dullness consistent with ascites. No direct tenderness. No rebound tenderness. No guarding. Bowel sounds are hypoactive at the present. Examination of the extremities revealed easily palpable radial, femoral and pedal pulses. There was no cyanosis, clubbing or edema. Examination of the skin revealed no evidence of significant rashes, suspicious appearing nevi or other concerning lesions. Neurologically the patient is awake and alert and there is no signs of any encephalopathy at this point. - Labs CBC & Chem 7: 09/05/17 04:16 09/05/17 04:16 Labs: Abnormal Lab Results - Last 24 Hours (Table) 09/04/17 09/04/17 09/04/17 Range/Units 04:00 12:05 13:58 WBC (3.8-10.6) k/uL RBC (3.80-5.40) m/uL Hgb (11.4-16.0) gm/dL Hct (34.0-46.0) % MCV (80.0-100.0) fL MCHC (31.0-37.0) g/dL RDW (11.5-15.5) % Plt Count (150-450) k/uL Lymphocytes # (Manual) (1.0-4.8) k/uL PT 12.5 H (9.0-12.0) sec INR 1.3 H (<1.2) Chloride 111 H (98-107) mmol/L Carbon Dioxide 18 L (22-30) mmol/L BUN 22 H (7-17) mg/dL Creatinine (0.52-1.04) mg/dL Glucose 119 H (74-99) mg/dL POC Glucose (mg/dL) 106 H (75-99) mg/dL Calcium 7.2 L (8.4-10.2) mg/dL Phosphorus 1.9 L (2.5-4.5) mg/dL Total Bilirubin 3.0 H (0.2-1.3) mg/dL AST 42 H (14-36) U/L Total Protein 4.4 L (6.3-8.2) g/dL Albumin 1.9 L (3.5-5.0) g/dL 09/05/17 09/05/17 Range/Units 04:16 04:16 WBC 3.1 L (3.8-10.6) k/uL RBC 2.30 L (3.80-5.40) m/uL Hgb 7.6 L (11.4-16.0) gm/dL Hct 25.0 L (34.0-46.0) % MCV 108.9 H (80.0-100.0) fL MCHC 30.5 L (31.0-37.0) g/dL RDW 15.8 H (11.5-15.5) % Plt Count 45 L* (150-450) k/uL Lymphocytes # (Manual) 0.40 L (1.0-4.8) k/uL PT (9.0-12.0) sec INR (<1.2) Chloride 111 H (98-107) mmol/L Carbon Dioxide 20 L (22-30) mmol/L BUN (7-17) mg/dL Creatinine 0.50 L (0.52-1.04) mg/dL Glucose 120 H (74-99) mg/dL POC Glucose (mg/dL) (75-99) mg/dL Calcium 7.1 L (8.4-10.2) mg/dL Phosphorus 1.9 L (2.5-4.5) mg/dL Total Bilirubin (0.2-1.3) mg/dL AST (14-36) U/L Total Protein (6.3-8.2) g/dL Albumin (3.5-5.0) g/dL Microbiology - Last 24 Hours (Table) 09/02/17 04:25 Blood Culture - Preliminary Blood No Growth after 72 hours 09/02/17 14:15 Anaerobic Culture - Preliminary Ascites Fluid 09/02/17 18:45 Urine Culture - Preliminary Urine,Voided Salmonella species 09/02/17 14:15 Gram Stain - Preliminary Paracentesis Fluid Body Fluid Culture - Preliminary 09/02/17 10:05 Blood Culture - Preliminary Blood No Growth after 48 hours Assessment and Plan Plan: Assessment 1 acute septic shock secondary to E. coli. The sources was thought to be a spontaneous bacterial peritonitis. Nevertheless, the cellular count and the culture of the ascitic fluid came back negative. Doppler any other alternative source of E. coli infection in this patient. ID is on the case. The patient on a combination of fluids, IV Rocephin and pressors for hemodynamics support. Pressors were discontinued earlier this morning and we are monitoring the blood pressure and was started diuretics once she is fully stabilized in terms of hemodynamics. 2 acute hypotension secondary to above and the patient is currently resuscitated IV fluids. The patient was treated with a combination of fluids and antibiotics and pressors and currently she is off pressors. There is also some underlying the urine the significance of which is not known. 3 liver cirrhosis 4 hepatitis C 5 chronic ascites requiring periodic paracentesis almost on a weekly basis. The patient had a large old paracentesis yesterday without a total of 8liters of ascitic fluid was aspirated. 6 coagulopathy and chronic thrombocytopenia related to alcoholism and liver cirrhosis 7 breast cancer status post systemic chemotherapy 8 previous episodes of upper GI bleed secondary to portal hypertension and esophageal varices 9 chronic anemia 10 acid reflux 11 hypertension, history of 12 hypoproteinemia and albuminemia secondary to above 13 mild lactic acidosis secondary to above, improving 14 acute kidney injury in the setting of hypotension and sepsis. Neck is kidney injury recovered and the patient's creatinine is normalized and inspect his baseline. 15 thrombocytopenia Plan Continue the blood pressure monitoring and started diuretics and a combination of Lasix and Aldactone once the patient is off pressors for at least 12 hours. The IV Fluids to KVO. Discussed the Case with ID and Consider then the change to a quinolone especially with the evolving thrombocytopenia. Acute kidney injury has recovered. The patient is hemodynamically stable at this point. We'll follow and will make further recommendations based on her progress. Long-term prognosis poor baseline above-mentioned comorbidities.
--- NOTE | 2017-09-05 13:53 | PN ---
PROGRESS NOTE CHIEF COMPLAINT: Septicemia, probably secondary to peritonitis. HISTORY OF PRESENT ILLNESS: This lady is slowly improving. She has just gotten off of pressors. She is still complaining of a lot of abdominal pain. Platelets continue to drop and white cell and red cell series are also still depressed. PHYSICAL EXAMINATION: She is still chronically ill in appearance and is somewhat dehydrated. Breath sounds are heard on both sides. Abdomen is still protuberant and tender. IMPRESSION: 1. Peritonitis. 2. Cirrhosis. 3. Hepatitis C. 4. Carcinoma of the breast. PLAN: No change in program. She seems to slowly be improving, although prognosis is still extremely poor. MMODL / IJN: [id number] /
--- NOTE | 2017-09-05 15:04 | P.PN ---
Subjective Progress Note Date: 09/05/17 51-year-old female who has multiple medical troubles that includes her triple negative breast carcinoma and her chronic active hepatitis C with cirrhosis and chronic refractory ascites that has required multiple admissions and multiple paracentesis. She has beem treated with Epculusa for her hepatitis C. She continues to have cirrhosis with her significant and refractory ascites that has required multiple paracentesis and is up to almost weekly paracentesis. Last one was done on August 27. Patient presented to [facility] emergency center with complaints of upper abdominal pain in epigastric and periumbilical areas with nausea and vomiting and fever of 101. CAT scan of the abdomen and pelvis showed recurrent large amount of abdominal pelvic fluid. No new or unexpected findings. She is found to have a temperature max of 102.4 with hypotension, white count 3.2, platelet count 83 and hemoglobin 8.9. Creatinine 0.78. Lactic acid was 3.4. Blood sugar 53. Total bilirubin is now 6.4, AST 65, ALT 38, alkaline phosphatase 179, albumin is 1.9. Patient was initially admitted to the floor and then transferred to the intensive care unit due to lactic acidosis and hypotension. She is not on vasopressors. Blood pressures are being obtained from her thigh. Patient denies any abdominal pain at the time of my eval. She is very vague gives limited information. Consult in place with Dr. Gerard for intensive care management and Dr. Joseph. Blood culture is showing gram-negative bacilli. She does have a previous positive blood culture in July with staff epidermidis. 09/03/2017 culture now reveals ecoli susceptibility adequate to Rocephin. 09/04/2017 patient still acting out to the nurses, but cooperative with observer. Afebrile but still on levophed. 09/05/2017 patient is a bit more cooperative today. She has now been weaned off of Levophed with a stable blood pressure. She is eating meals without significant difficulty but still has very poor oral intake. We discussed importance of protein intake for her to have any improvement. She for she is denying much abdominal pain. Does complain some back pain. She is not having fevers or chills. Denies any dysuria and is also denying any diarrhea. Objective - Vital Signs Vital signs: Vital Signs Temp 98.6 F 09/05/17 08:00 Pulse 73 09/05/17 12:30 Resp 23 09/05/17 12:30 BP 91/44 09/05/17 12:30 Pulse Ox 96 09/05/17 12:30 Intake & Output 09/04/17 09/05/17 09/05/17 18:59 06:59 18:59 Intake Total 6135.303 8212.875 200 Output Total 350 300 Balance 1499.369 9120.875 200 Weight 74.1 kg 77.6 kg Intake: IV 1385 1200 200 Dextrose 5%-0.9% NaCl 1, 560 1200 200 000 ml @ 100 mls/hr IV . Q10H RAFAEL Rx#:[id number] Potassium Phosphate 10 625 mmol In Sodium Chloride 0 .9% 250 ml @ 125 mls/hr IV Q2H RAFAEL Rx#:[id number] magnesium 200 Intake, IV Titration 139.250 165.875 Amount Norepinephrin 4 mg-0.9% 139.250 165.875 Ns Pmx 4 mg In 250 ml @ Titrate IV .Q0M RAFAEL Rx#: [id number] Output: Urine 350 300 Other: Voiding Method Bedside Commode Bedside Commode Bedside Commode # Voids 1 1 0 - Exam Gen: This is a thin cachectic appearing female 51 years old. She is lying in the ICU bed and appears to be comfortable. She has a hat over her eyes and refuses to have exam of her face and eyes. Patient is crying out in pain to minimal stimuli. She has blood pressure cuff on her right thigh for which she yells to have it removed. LUNGS: Clear to auscultation. No wheezes or rhonchi. No intercostal retractions. HEART: Patient refused. Port to the right upper anterior chest wall is tender to light touch. Patient appears to be hypersensitive. ABDOMEN: Soft. Distended and. Positive ascites. Bowel sounds are present. No tenderness. EXTREMITIES: +1 pedal edema. Dorsalis pedis +2 bilaterally. NEUROLOGICAL: now more awake and alert - Labs CBC & Chem 7: 09/05/17 04:16 09/05/17 04:16 Labs: Abnormal Lab Results - Last 24 Hours (Table) 09/05/17 09/05/17 Range/Units 04:16 04:16 WBC 3.1 L (3.8-10.6) k/uL RBC 2.30 L (3.80-5.40) m/uL Hgb 7.6 L (11.4-16.0) gm/dL Hct 25.0 L (34.0-46.0) % MCV 108.9 H (80.0-100.0) fL MCHC 30.5 L (31.0-37.0) g/dL RDW 15.8 H (11.5-15.5) % Plt Count 45 L* (150-450) k/uL Lymphocytes # (Manual) 0.40 L (1.0-4.8) k/uL Chloride 111 H (98-107) mmol/L Carbon Dioxide 20 L (22-30) mmol/L Creatinine 0.50 L (0.52-1.04) mg/dL Glucose 120 H (74-99) mg/dL Calcium 7.1 L (8.4-10.2) mg/dL Phosphorus 1.9 L (2.5-4.5) mg/dL Microbiology - Last 24 Hours (Table) 09/02/17 10:05 Blood Culture - Preliminary Blood No Growth after 72 hours 09/02/17 04:25 Blood Culture - Preliminary Blood No Growth after 72 hours 09/02/17 14:15 Anaerobic Culture - Preliminary Ascites Fluid 09/02/17 18:45 Urine Culture - Preliminary Urine,Voided Salmonella species 09/02/17 14:15 Gram Stain - Preliminary Paracentesis Fluid Body Fluid Culture - Preliminary Laboratory Results WBC 3.1 k/uL (3.8-10.6) L 09/05/17 04:16 RBC 2.30 m/uL (3.80-5.40) L 09/05/17 04:16 Hgb 7.6 gm/dL (11.4-16.0) L 09/05/17 04:16 Hct 25.0 % (34.0-46.0) L 09/05/17 04:16 MCV 108.9 fL (80.0-100.0) H 09/05/17 04:16 MCH 33.2 pg (25.0-35.0) 09/05/17 04:16 MCHC 30.5 g/dL (31.0-37.0) L 09/05/17 04:16 RDW 15.8 % (11.5-15.5) H 09/05/17 04:16 Plt Count 45 k/uL (150-450) L* 09/05/17 04:16 Neutrophils % 84 % 09/03/17 04:50 Neutrophils % (Manual) 63 % 09/05/17 04:16 Band Neutrophils % 1 % 09/05/17 04:16 Lymphocytes % 7 % 09/03/17 04:50 Lymphocytes % (Manual) 13 % 09/05/17 04:16 Monocytes % 5 % 09/03/17 04:50 Monocytes % (Manual) 21 % 09/05/17 04:16 Eosinophils % 1 % 09/03/17 04:50 Eosinophils % (Manual) 2 % 09/05/17 04:16 Basophils % 0 % 09/03/17 04:50 Metamyelocytes % 1 % 09/04/17 04:00 Neutrophils # 5.9 k/uL (1.3-7.7) 09/03/17 04:50 Neutrophils # (Manual) 1.90 k/uL (1.3-7.7) 09/05/17 04:16 Lymphocytes # 0.5 k/uL (1.0-4.8) L 09/03/17 04:50 Lymphocytes # (Manual) 0.40 k/uL (1.0-4.8) L 09/05/17 04:16 Monocytes # 0.4 k/uL (0-1.0) 09/03/17 04:50 Monocytes # (Manual) 0.65 k/uL (0-1.0) 09/05/17 04:16 Eosinophils # 0.1 k/uL (0-0.7) 09/03/17 04:50 Eosinophils # (Manual) 0.06 k/uL (0-0.7) 09/05/17 04:16 Basophils # 0.0 k/uL (0-0.2) 09/03/17 04:50 Metamyelocytes # (Man) 0.04 k/uL (0) H 09/04/17 04:00 Nucleated RBCs 0 /100 WBC (0-0) 09/05/17 04:16 Manual Slide Review Performed 09/05/17 04:16 Toxic Granulation Present 09/03/17 04:50 Toxic Vacuolation Present 09/03/17 04:50 Polychromasia Present 09/04/17 04:00 Hypochromasia Marked 09/05/17 04:16 Poikilocytosis (manual Present 09/04/17 04:00 Anisocytosis Slight 09/02/17 04:25 Macrocytosis Marked 09/05/17 04:16 PT 12.5 sec (9.0-12.0) H 09/04/17 13:58 INR 1.3 (<1.2) H 09/04/17 13:58 APTT 38.0 sec (22.0-30.0) H 09/01/17 13:50 Sodium 137 mmol/L (137-145) 09/05/17 04:16 Potassium 4.0 mmol/L (3.5-5.1) 09/05/17 04:16 Chloride 111 mmol/L (98-107) H 09/05/17 04:16 Carbon Dioxide 20 mmol/L (22-30) L 09/05/17 04:16 Anion Gap 6 mmol/L 09/05/17 04:16 BUN 16 mg/dL (7-17) 09/05/17 04:16 Creatinine 0.50 mg/dL (0.52-1.04) L 09/05/17 04:16 Est GFR (CKD-EPI)AfAm >90 (>60 ml/min/1.73 sqM) 09/05/17 04:16 Est GFR (CKD-EPI)NonAf >90 (>60 ml/min/1.73 sqM) 09/05/17 04:16 Glucose 120 mg/dL (74-99) H 09/05/17 04:16 POC Glucose (mg/dL) 98 mg/dL (75-99) 09/05/17 11:26 POC Glu Discharge Door Operator ID Garfield Salcedo 09/05/17 11:26 Lactic Ac Sepsis Rflx Y 09/02/17 05:18 Plasma Lactic Acid Darrius 1.6 mmol/L (0.7-2.0) 09/03/17 11:55 Calcium 7.1 mg/dL (8.4-10.2) L 09/05/17 04:16 Phosphorus 1.9 mg/dL (2.5-4.5) L 09/05/17 04:16 Magnesium 2.2 mg/dL (1.6-2.3) 09/05/17 04:16 Total Bilirubin 3.0 mg/dL (0.2-1.3) H 09/04/17 04:00 AST 42 U/L (14-36) H 09/04/17 04:00 ALT 31 U/L (9-52) 09/04/17 04:00 Alkaline Phosphatase 117 U/L (38-126) 09/04/17 04:00 Ammonia <9 umol/L (<30) 09/02/17 10:05 Total Protein 4.4 g/dL (6.3-8.2) L 09/04/17 04:00 Albumin 1.9 g/dL (3.5-5.0) L 09/04/17 04:00 Amylase 36 U/L (30-110) 09/01/17 13:50 Lipase 55 U/L (23-300) 09/01/17 13:50 Cortisol 12 ug/dL 09/03/17 11:55 Urine Color Dark Brown 09/02/17 18:45 Urine Appearance Cloudy (Clear) H 09/02/17 18:45 Urine pH 5.0 (5.0-8.0) 09/02/17 18:45 Ur Specific [place] 1.023 (1.001-1.035) 09/02/17 18:45 Urine Protein 1+ (Negative) H 09/02/17 18:45 Urine Glucose (UA) Negative (Negative) 09/02/17 18:45 Urine Ketones Trace (Negative) H 09/02/17 18:45 Urine Blood Negative (Negative) 09/02/17 18:45 Urine Nitrite Negative (Negative) 09/02/17 18:45 Urine Bilirubin 3+ (Negative) H 09/02/17 18:45 Urine Urobilinogen 8.0 mg/dL (<2.0) 09/02/17 18:45 Ur Leukocyte Esterase Moderate (Negative) H 09/02/17 18:45 Urine RBC 7 /hpf (0-5) H 09/02/17 18:45 Urine WBC 22 /hpf (0-5) H 09/02/17 18:45 Ur Squamous Epith Cells 6 /hpf (0-4) H 09/02/17 18:45 Amorphous Sediment Rare /hpf (None) H 09/02/17 18:45 Urine Bacteria Many /hpf (None) H 09/02/17 18:45 Hyaline Casts 26 /lpf (0-2) H 09/02/17 18:45 Urine Mucus Few /hpf (None) H 09/02/17 18:45 Fluid Source Peritoneal 09/02/17 14:15 Fluid Color [place] 09/02/17 14:15 Fluid Appearance Hazy 09/02/17 14:15 Fluid RBC 6300 /uL 09/02/17 14:15 Fluid Nucleated Cells 50 /uL 09/02/17 14:15 Fluid Polynuclear WBCs 94 % 09/02/17 14:15 Fluid Mononuclear WBCs 6 % 09/02/17 14:15 Body Fluid Protein Source Paracentesis Fluid 09/02/17 14:15 Fluid Total Protein 989 mg/dL 09/02/17 14:15 Fluid Comment Moderate Mesothelial 09/02/17 14:15 Microbiology 09/02/17 10:05 Blood Blood Culture - Preliminary No Growth after 72 hours 09/02/17 04:25 Blood Blood Culture - Preliminary No Growth after 72 hours 09/02/17 14:15 Ascites Fluid Anaerobic Culture - Preliminary 09/02/17 18:45 Urine,Voided Urine Culture - Preliminary Salmonella species 09/02/17 14:15 Paracentesis Fluid Gram Stain - Preliminary 09/02/17 14:15 Paracentesis Fluid Body Fluid Culture - Preliminary 09/01/17 19:02 Blood Blood Culture Gram Stain - Final 09/01/17 19:02 Blood Blood Culture - Final Escherichia coli 09/01/17 19:02 Blood Blood Culture - Final Assessment and Plan (1) Spontaneous bacterial peritonitis Current Visit: Yes Status: Acute Code(s): K65.2 - SPONTANEOUS BACTERIAL PERITONITIS SNOMED Code(s): 54073911 (2) Gram-negative bacteremia Narrative/Plan: The patient is receiving a high-volume paracentesis and she seems to be tolerating it very well. However on the prior events she has now developed sepsis and is evidence of hypotension and evidence of gram-negative bacilli in her blood. Spontaneous bacterial peritonitis is the most likely etiology of her current sepsis and antibiotic therapy was initiated with ceftriaxone when the consult was called. The patient is having some improvement of her status. Cultures were further help direct the course of antibiotic therapy at discharge. If possible at discharge after the acute bout of sepsis is been treated she should then be placed on chronic suppressive antibiotic therapy to prevent recurrences of her spontaneous bacterial peritonitis. Ofloxacin or ciprofloxacin would be ideal choices given her current level of illness. On 09/03/2017 patient remains ill on levophed still. Rocephin is adequate choice for the e coli sepsis. repeat blood cultures are negative so far. 09/04/2017 patient improved and on less levophed but still ill, the source of sepsis is still most likely SBP with bacteremia. continue with Rocephin and will have a plan for oral antibiotics at discharge. [id number] the patient has had some further improvement. Levophed has been weaned off. Blood pressure seems to be stable. She is able to eat although with poor appetite. The patient has had significant improvement since her admission. The plan will be to continue her current course of Rocephin until she is more stable and I will transition her to oral antibiotic therapy at discharge. Still with a plan for chronic atrial suppression for spontaneous bacterial peritonitis. At this time E. coli bacteremia the patient directly related to her ascites and peritonitis. The Salmonella species recovered from the urine is of some interest, but however is a species not Salmonella typhi Current Visit: Yes Status: Acute Code(s): R78.81 - BACTEREMIA SNOMED Code( s): 073737258273 (3) Cirrhosis Current Visit: Yes Status: Chronic Code(s): K74.60 - UNSPECIFIED CIRRHOSIS OF LIVER SNOMED Code(s): 30962632
[2017-09-06] MEDS: ONDANSETRON 4 MG/2 ML VIAL IVP PRN (03:32)
[2017-09-06] MEDS: HYDROcodone/APAP 5-325MG 1 EACH TAB PO PRN ×3 (04:40→15:47)
[2017-09-06] MEDS: cefTRIAXone IN SWFI 2,000 MG/20 ML SYRINGE IVP SCH (05:31)
[2017-09-06 06:48] LABS: Anion Gap 7 mmol/L; Blood Urea Nitrogen 15 mg/dL (7-17); Calcium 7.1 mg/dL (8.4-10.2); Carbon Dioxide 20 mmol/L (22-30); Chloride 110 mmol/L (98-107); Glucose 98 mg/dL (74-99); Magnesium 2.2 mg/dL (1.6-2.3); Phosphorus 2.3 mg/dL (2.5-4.5); Sodium 137 mmol/L (137-145)
[2017-09-06 06:53] LABS: HCT 22.2 % (34.0-46.0); HGB 7.1 gm/dL (11.4-16.0); Hypochromasia Moderate; MCH 33.7 pg (25.0-35.0); MCHC 31.8 g/dL (31.0-37.0); MCV 106.1 fL (80.0-100.0); Macrocytosis Moderate; Mean Platelet Volume 9.8; RBC 2.09 m/uL (3.80-5.40); RDW 15.4 % (11.5-15.5)
[2017-09-06 06:57] LABS: Platelet Count 42 k/uL (150-450); WBC 1.9 k/uL (3.8-10.6)
[2017-09-06 07:25] LABS: Eosinophils # (M) 0.08 k/uL (0-0.7); Lymphocytes # (M) 0.53 k/uL (1.0-4.8); Neutrophils % (M) 63 %; Nucleated Red Blood Cells 0 /100 WBC (0-0); Polychromasia Present; Total Cells Counted 100
[2017-09-06] MEDS: FUROSEMIDE 40 MG TAB PO SCH (07:56)
[2017-09-06] MEDS: SPIRONOLACTONE 25 MG TAB PO SCH (07:56)
--- NOTE | 2017-09-06 08:32 | XR ---
EXAMINATION TYPE: XR chest 1V portable DATE OF EXAM: 09/06/2017 CLINICAL HISTORY: Difficulty breathing progress study. TECHNIQUE: Single AP portable upright view of the chest is obtained. COMPARISON: Chest x-ray from one day earlier and older studies. FINDINGS: There is stable right-sided Mediport catheter. There is persistent small left pleural effu stacey and associated left basilar atelectasis and/or infiltrate. Low lung volumes are redemonstrated. Mild increased central vascular congestion remains present. There is persistent patchy density right medial lung base. Cardiac silhouette size is stable and upper limits of normal. Osseous structures ar e intact. IMPRESSION: Overall stable findings, low lung volumes with small left pleural effusion and associat ed left basilar atelectasis and/or infiltrate. Stable patchy right medial basilar atelectasis and/or infiltrate.
--- NOTE | 2017-09-06 09:55 | PN ---
PROGRESS NOTE DATE OF SERVICE: September 06, 2017 Patient is a 51-year-old white female with history of chronic hep C admitted to the hospital with SBP/sepsis. She was transferred out of the ICU yesterday. She has refractory ascites requiring paracentesis on a weekly basis. She denies any symptoms this morning, had some abdominal distention and abdominal pain. PHYSICAL EXAMINATION: Appears comfortable in no apparent distress. VITAL SIGNS: Stable. Blood pressure 92/54, pulse 73, temperature 97. HEENT examination remarkable. Conjunctivae pink. Sclerae anicteric. Oral cavity no lesions. NECK: No jugular venous distention or lymph node enlargement. CHEST: Clear to auscultation. HEART: Regular rate and rhythm. ABDOMEN: Soft. Bowel sounds are positive. No organomegaly. There was fluid thrill noted. Moderate amount of ascites. EXTREMITIES: No pedal edema. SKIN: No rashes. NEUROLOGIC: Alert and oriented x3. No focal deficits. LAB: From today WBC 1.9, hemoglobin 7.1, platelets 47. BUN and creatinine are within normal limits. IMPRESSION: 1. Chronic hep C/cirrhosis. Patient presently on for the last 6 months. HV RNA was ordered yesterday still pending. 2. Refractory ascites requiring frequent paracentesis. She was started on Lasix 40 mg and Aldactone 50 mg daily yesterday. 3. Spontaneous bacterial peritonitis/sepsis on Rocephin doing better. RECOMMENDATIONS: 1. Continue with current antibiotics. 2. Continue with Lasix and Aldactone. 3. Low-salt diet. 4. If ascites continues to get worse, we will order a large volume paracentesis during this hospitalization. Thank you for this consultation. MMODL / IJN: [id number] /
--- NOTE | 2017-09-06 11:24 | P.PN ---
Subjective Progress Note Date: 09/06/17 A 51-year-old female patient with previous history of liver cirrhosis secondary to chronic hepatitis C with stigmata of liver failure with chronic ascites requiring multiple paracentesis almost on a weekly basis. The last paracentesis was done as patient was on 08/27/2018. The patient came into the emergency department complaining of abdominal pain which was periumbilical and somewhat in epigastric area in addition to some nausea vomiting and a temperature of 101. CAT scan of the abdomen and pelvis was done in the emergency department and showed large amount of abdominal and pelvic fluid consistent with liver cirrhosis. Otherwise no other new abnormalities was noted. The patient continued to spike temperature and subsequently she became hypotensive with blood sugars running in the mid 80s. She also developed some mild lactic acidosis with level of 3.4 and a blood sugar was as low as 53. At that point, the patient got moved to the intensive care unit for further evaluation. The preliminary blood cultures showing gram-negative bacillus. The patient is currently on IV Rocephin 2 g every 24 hours. Overnight the patient was given fluids, 1 L bolus and she was placed on 0.9 and subsequently switched to D5 half-normal as the patient was having episodes of hypoglycemia at the rate of 150 mL an hour. At the time of my evaluation this morning, the patient's systolic blood pressure was in the mid 80s with a mean arterial pressure of 53. Her urine output was low and she denied passing any urine output since morning and the patient also declined to have a Calderon catheter inserted. The patient has a Mediport with seems to be clean and intact on surface. The patient had a soft abdomen. Immediately a TENS unit of ascitic fluid was aspirated and it was sent for culture to rule out possibility of spontaneous bacteria peritonitis. No melena. No diarrhea. No nausea or vomiting. She is lethargic yet she is arousable. No evidence of any GI bleeding. No confusion. No altered mentation. No skin rashes. No wounds or ulcers or sores at this point in time. The patient has liver cirrhosis and pancytopenia and chronic ascites related to liver cirrhosis. The patient has had previous esophageal banding. She also has history of breast cancer and she had her last chemotherapy back in October 2016 which she didn't tolerate and the chemotherapy regimen following that was reduced only to 3 cycles and was stopped. The patient has had previous history of upper GI bleeds. On today's evaluation of 09/03/2017, the patient is awake and alert and she is following commands and answering questions appropriately. She is not having any significant shortness of breath. No fever. She required pressors since yesterday the patient is currently on 4-5 mics of norepinephrine infusion for blood pressure control. Noted the patient had a large volume paracentesis yesterday and a total of 8 L of abdominal ascitic fluid was removed. There is no evidence of peritonitis based on the ascitic fluid analysis and the cultures are also negative from the ascitic fluid. UA was sent and urine culture is still pending for now. The patient has gram-negative bacillus and the blood which do not to be E. coli which is sensitive to Rocephin and the patient is still on 2 g of IV Rocephin every 24 hours. The patient has no abdominal pain. No nausea or vomiting. She has running a lower blood pressure with a systolic blood pressure in the mid 90s and a mean of 65. No GI bleeding. No other issues otherwise over the past 24 hours. Pulse ox is 93% on room air oxygen. On 09/04/2017 patient seen in follow-up in the intensive care unit. Patient is sleepy, but easily arousable to verbal stimuli, very irritable and at times verbally abusive with staff. She oriented 3, no signs of delirium. She remains on levo fed at 3 mics per minute, and her blood pressure is ranging from 90-100 systolic, and 40-60 diastolic, with a mean from 60-79 mmHg. Yesterday patient was given an additional 500 mL of 5% albumin. Patient had one episode of low-grade fever last night with a temp of 100.6F, afebrile this morning, denies any fever or chills. Peritoneal fluid culture has shown no growth so far, blood cultures are positive for E. coli, and urine cultures positive for gram-negative bacilli. She remains on IV Rocephin, and ID service is following. Lung sounds are clear to auscultation, patient denies any dyspnea. She is tolerating oral intake. She is incontinent of urine, she is reluctant to let staff assist her with a gown change and clean up. Abdomen is a bit distended but soft. We'll continue with current plan of care, continue weaning norepinephrine. On 2017, the patient is off pressors and levo fed infusion was stopped around 6 AM this morning. The patient is maintaining home blood pressure. She is afebrile. She is producing urine output. Abdomen is distended and his consistent with ascites. Urine culture rubber turner to be positive for salmonella species. Blood culture was positive for E. coli and the patient was treated with IV Rocephin 2 g every 24 hours. The significance of salmonella and the urine is not clear to me at this point. This needs to be further discussed with infectious disease. In any rate, the patient is responding nicely. She is sleepy and lethargic yet she is arousable and she follows commands and answering questions. She is not pleasant. She is not happy with the whole experience of being in the hospital and she is not night at all to the nursing staff. She makes very irritating comments about her hospitalization and care in general. This has made the medical staff quite uncomfortable taking care of her. For example, she threw a bedpan at one of the nurses aides with fecal material and I spoke to her at length and I told her that this type of behavior is completely unacceptable in a hospital setting. I do not think that there is any altered mentation. I think she is very competent and she is aware of her behavior. We'll try to stabilize her condition as soon as possible and try to get out of the intensive care unit. Hemoglobin is is stable at 7.6. Platelet count is up to 45. She is tolerating her diet. No evidence of any GI bleed. On 09/06/2017, the patient is feeling okay. She is resting comfortably in bed. No respiratory distress. Abdomen is getting progressively more distended. She is on a combination of Lasix 40 mg once a day and Aldactone 50 mg once a day. She is on IV Rocephin 2 g every 24 hours stating underlying septicemia with E. coli in her blood. No nausea. Appetite is diminished. She is cachectic. She has advanced end-stage liver disease and the patient has required 3. Paracentesis. I think she would benefit from another paracentesis with the next 24 hours. Afebrile. Hemodynamically stable. No other significant events over the past 24 hours and she got moved out of the intensive care unit. Pulse ox on room air is 98%. Objective - Vital Signs Vital signs: Vital Signs Temp 98 F 09/06/17 08:00 Pulse 75 09/06/17 10:50 Resp 16 09/06/17 10:50 BP 92/54 09/06/17 10:50 Pulse Ox 98 09/06/17 10:50 Intake & Output 09/05/17 09/06/17 09/06/17 18:59 06:59 18:59 Intake Total 320 240 120 Output Total 0 1000 Balance 320 240 -880 Weight 77.6 kg Intake: IV 200 Dextrose 5%-0.9% NaCl 1, 200 000 ml @ 100 mls/hr IV . Q10H RAFAEL Rx#:[id number] Oral 120 240 120 Output: Urine 0 1000 Other: Voiding Method Bedside Commode Toilet Toilet # Voids 1 1 - Exam Gen. appearance the patient is cachectic thin and frail nonacute distress. Head exam was generally normal. There was no scleral icterus or corneal arcus. Mucous membranes were moist. Neck was supple and without jugular venous distension, thyromegaly, or carotid bruits. Carotids were easily palpable bilaterally. There was no adenopathy.The patient is conjunctival icterus and pallor. Lungs were clear to auscultation and percussion, and with normal diaphragmatic excursion. No wheezes or rales were noted. Cardiac exam revealed the PMI to be normally situated and sized. The rhythm was regular and no extrasystoles were noted during several minutes of auscultation. The first and second heart sounds were normal and physiologic splitting of the second heart sound was noted. There were no murmurs, rubs, clicks, or gallops. Abdomen is slightly distended there is evidence of fluid wave and shifting dullness consistent with ascites. No direct tenderness. No rebound tenderness. No guarding. Bowel sounds are hypoactive at the present. Examination of the extremities revealed easily palpable radial, femoral and pedal pulses. There was no cyanosis, clubbing or edema. Examination of the skin revealed no evidence of significant rashes, suspicious appearing nevi or other concerning lesions. Neurologically the patient is awake and alert and there is no signs of any encephalopathy at this point. - Labs CBC & Chem 7: 09/06/17 06:15 09/06/17 06:15 Labs: Abnormal Lab Results - Last 24 Hours (Table) 09/06/17 09/06/17 Range/Units 06:15 06:15 WBC 1.9 L* (3.8-10.6) k/uL RBC 2.09 L (3.80-5.40) m/uL Hgb 7.1 L (11.4-16.0) gm/dL Hct 22.2 L (34.0-46.0) % MCV 106.1 H (80.0-100.0) fL Plt Count 42 L* (150-450) k/uL Neutrophils # (Manual) 1.20 L (1.3-7.7) k/uL Lymphocytes # (Manual) 0.53 L (1.0-4.8) k/uL Chloride 110 H (98-107) mmol/L Carbon Dioxide 20 L (22-30) mmol/L Calcium 7.1 L (8.4-10.2) mg/dL Phosphorus 2.3 L (2.5-4.5) mg/dL Microbiology - Last 24 Hours (Table) 09/02/17 04:25 Blood Culture - Preliminary Blood No Growth after 96 hours 09/02/17 14:15 Gram Stain - Preliminary Paracentesis Fluid Body Fluid Culture - Preliminary 09/02/17 10:05 Blood Culture - Preliminary Blood No Growth after 72 hours Assessment and Plan Plan: Assessment 1 acute septic shock secondary to E. coli. The sources was thought to be a spontaneous bacterial peritonitis. Nevertheless, the cellular count and the culture of the ascitic fluid came back negative. Doppler any other alternative source of E. coli infection in this patient. ID is on the case. The patient on a combination of fluids, IV Rocephin and pressors for hemodynamics support. After being on pressors for 48 hours, the patient's blood pressure stabilized and the patient got moved out of the intensive care unit and she is currently back on her diuretics which include a combination of Lasix and Aldactone. She may need further IV follow-up regarding the possibility of salmonella in the urine, the significant of which is not known to be at this point. 2 acute hypotension secondary to above, recovered 3 liver cirrhosis 4 hepatitis C 5 chronic ascites requiring periodic paracentesis almost on a weekly basis. The patient had a large volume paracentesis, 8 L of fluid was removed during this current admission and she may need another paracentesis with the next few days. Meanwhile the patient was restarted back on her diuretics. 6 coagulopathy and chronic thrombocytopenia related to alcoholism and liver cirrhosis 7 breast cancer status post systemic chemotherapy 8 previous episodes of upper GI bleed secondary to portal hypertension and esophageal varices 9 chronic anemia 10 acid reflux 11 hypertension, history of 12 hypoproteinemia and albuminemia secondary to above 13 mild lactic acidosis secondary to above, improving 14 acute kidney injury in the setting of hypotension and sepsis. Neck is kidney injury recovered and the patient's creatinine is normalized and inspect his baseline. 15 thrombocytopenia Plan Continue IV Rocephin. Continue Lasix. Continue Aldactone. May need another paracentesis tomorrow. Monitor fever pattern. Monitor blood pressure. Prognosis poor.
[2017-09-06] MEDS: HYDROcodone/APAP 7.5-325MG 1 EACH TAB PO PRN ×2 (16:31→23:24)
--- NOTE | 2017-09-06 19:55 | PN ---
PROGRESS NOTE DATE OF SERVICE: 09/06/17 CHIEF COMPLAINT: Peritonitis with increasing abdominal pain. HISTORY OF PRESENT ILLNESS: Doing well. Temperature is down. Vital signs seem to be more stable, which she is complaining of increased abdominal pain. She is requesting more Vicodin. She does have a propensity for abusing Vicodin. PHYSICAL EXAM: Breath sounds present but diminished. Cardiac exam is unremarkable. Abdomen is starting to become more distended. It is tender. IMPRESSION: 1. Peritonitis. 2. Hepatitis C. 3. Cirrhosis. 4. Intractable ascites. 5. Carcinoma of breast. 6. Increasing pain. PLAN: Increase Vicodin from 5 to 7.5 q.4 hours p.r.n. even though she is requesting 10 mg. MMODL / IJN: [id number] /
[2017-09-07] MEDS: clonazePAM 0.5 MG TAB PO STA ×2 (02:48→02:57)
[2017-09-07 04:36] VITALS: PULSE 78
[2017-09-07] MEDS: cefTRIAXone IN SWFI 2,000 MG/20 ML SYRINGE IVP SCH (05:39)
[2017-09-07] MEDS: HYDROcodone/APAP 7.5-325MG 1 EACH TAB PO PRN (06:39)
[2017-09-07] MEDS: FUROSEMIDE 40 MG TAB PO SCH (08:09)
[2017-09-07] MEDS: SPIRONOLACTONE 25 MG TAB PO SCH (08:09)
[2017-09-07 08:56] VITALS: BP 103/52; RESP 18; TEMP 98.6
[2017-09-07 11:29] VITALS: BMI 25.7
[2017-09-07 14:48] LABS: Hepatits C Virus RNA Not detected (Not detected); Hepatits C Virus RNA, Quant <12 IU/mL (<12); LOG HCV IU/mL <1.08 (<1.08)
--- NOTE | 2017-09-07 14:53 | PN ---
PROGRESS NOTE DATE OF SERVICE: 09/07/2017. CHIEF COMPLAINT: Peritonitis. HISTORY OF PRESENT ILLNESS: This lady is complaining of more abdominal pain this morning. She has had no vomiting. She has had no fever or chills. PHYSICAL EXAM: Chest is clear. Cardiac exam is normal and her abdomen is more protuberant than it has been and she has generalized tenderness. Her ascites is reaccumulating. IMPRESSION: 1. Intractable ascites. 2. Peritonitis. 3. Cirrhosis. 4. Hepatitis C. 5. Carcinoma of the breast. PLAN: She probably will require paracentesis soon. MMODL / IJN: [id number] /
--- NOTE | 2017-09-08 19:39 | DS ---
DISCHARGE SUMMARY CHIEF COMPLAINT: Abdominal pain. HISTORY OF PRESENT ILLNESS AND PHYSICAL EXAMINATION: Details of this lady's history and physical can be found in the initial workup. LABORATORY STUDIES: While she was in the hospital she had laboratory studies, details of which can be found in the laboratory section of her chart. COURSE IN THE HOSPITAL: After admission she was placed on bedrest and started on intravenous fluids and antibiotics. She was seen and followed by GI and Infectious Disease. It was felt that she likely had peritonitis. As she was treated, her pain slowly began to subside. She was able to be moved out of ICU and transferred to a regular floor and she was doing well when she suddenly signed out AGAINST MEDICAL ADVICE on September 07. FINAL DIAGNOSES: 1. Peritonitis. 2. Hepatitis C. 3. Cirrhosis. 4. Intractable ascites. 5. Carcinoma of the breast. OPERATIONS: None. CONSULTATIONS: Infectious Disease and GI. She was improved. MMODL / NESTORN: [id number] /
== END 2017-09-07 11:47 | disposition left against medical advice (07) | DRG 871 ==
LOC: EC 13:27 → 6SEL 15:47 → 6ICU 09-02 05:57 → 6SEL 09-05 16:59
PROVIDERS: ADMIT Family Medicine; ATTEND Family Medicine
PROC: 0W9G3ZZ Drainage of Peritoneal Cavity, Percutaneous Approach (ICD-10-PCS; principal; 2017-09-03)
DX: A41.51 Sepsis due to Escherichia coli [E. coli] (principal); K65.2 Spontaneous bacterial peritonitis; R65.21 Severe sepsis with septic shock; A02.9 Salmonella infection, unspecified; D61.818 Other pancytopenia; D68.4 Acquired coagulation factor deficiency; E87.2 Acidosis; K76.6 Portal hypertension; N17.9 Acute kidney failure, unspecified; R64 Cachexia; N39.0 Urinary tract infection, site not specified; B18.2 Chronic viral hepatitis C; C50.912 Malignant neoplasm of unspecified site of left female breast; D69.59 Other secondary thrombocytopenia; E77.8 Other disorders of glycoprotein metabolism; F10.20 Alcohol dependence, uncomplicated; F17.200 Nicotine dependence, unspecified, uncomplicated; H91.90 Unspecified hearing loss, unspecified ear; I10 Essential (primary) hypertension; K21.9 Gastro-esophageal reflux disease without esophagitis; K72.90 Hepatic failure, unspecified without coma; K70.31 Alcoholic cirrhosis of liver with ascites; R32 Unspecified urinary incontinence; Z17.1 Estrogen receptor negative status [ER-]; Z79.899 Other long term (current) drug therapy; Z80.1 Family history of malignant neoplasm of trachea, bronchus and lung; Z82.49 Family history of ischemic heart disease and other diseases of the circulatory system; Z85.3 Personal history of malignant neoplasm of breast; Z79.891 Long term (current) use of opiate analgesic
CPT/HCPCS: 36415; 49083; 71045; 74176; 80048; 80053; 81001; 82140; 82150; 82533; 83605; 83690; 83735; 84100; 84157; 85025; 85610; 85730; 87040; 87070; 87075; 87077; 87086; 87186; 87205; 87522; 88108; 88305; 89050; 93005; 96374; 96375; 99285

== ENCOUNTER → 2017-09-02 | Day surgery (SDC) | payer MEDICARE, OTHER | LOC: RADPROMAIN 12:00 | PROVIDERS: ATTEND Family Medicine | DX: Z53.9 Procedure and treatment not carried out, unspecified reason (principal); K74.60 Unspecified cirrhosis of liver; R18.8 Other ascites ==

== ENCOUNTER 2017-09-10 12:11 | Day surgery (SDC) | payer MEDICARE, OTHER ==
[2017-09-10 12:43] VITALS: RESP 20; TEMP 98.3
[2017-09-10 12:58] LABS: INR 1.2 (<1.2); Mean Platelet Volume 9.1; Prothrombin Time 11.4 sec (9.0-12.0)
[2017-09-10 13:04] LABS: Platelet Count 85 k/uL (150-450)
[2017-09-10] MEDS: ALBUMIN HUMAN 25% 50 ML in EMPTY BAG 1 BAG IVPB SCH ×4 (13:47→14:51)
[2017-09-10 14:52] VITALS: BP 103/46; PULSE 80
--- NOTE | 2017-09-10 16:00 | US ---
EXAMINATION TYPE: US paracentesis abd w/image DATE OF EXAM: 09/10/2017 COMPARISON: NONE HISTORY: Ascites. PROCEDURE: Maximal barrier technique was utilized. The skin overlying a suitable pocket of fluid was localized with ultrasound and the overlying skin was prepped and draped. Ultrasound was utilized with sterile technique. Lidocaine was used for local anesthesia and a skin adela made with a scalpel. Catheter was advanced under direct ultrasound guidance into a suitable pocket of fluid and approximately 7.9 liter s of serous fluid were removed. Catheter was withdrawn and hemostasis achieved. There is no immedia te complication; the patient is discharged in stable condition. IMPRESSION: STATUS POST ULTRASOUND GUIDED PARACENTESIS FOR PALLIATION OF ASCITES. THIS PROCEDURE WA S PERFORMED BY THE UNDERSIGNED.
== END 2017-09-10 15:00 | disposition home or self-care (01) ==
LOC: RADPROMAIN 12:11
PROVIDERS: ATTEND Family Medicine
DX: R18.8 Other ascites (principal)
CPT/HCPCS: 82565; 85049; 85610; 96365; 49083; P9047; J1642

== ENCOUNTER 2017-09-16 03:46 | Observation (INO) | payer MEDICARE, OTHER ==
[2017-09-16] MEDS ORDERED: MORPHINE SULFATE 2 MG/ML SYRINGE IV STA (04:50)
[2017-09-16 05:42] LABS: Amorphous Sediment,Urine Rare /hpf; Appearance,Urine Cloudy (Clear); Bacteria,Urine Rare /hpf; Bilirubin,Urine Negative (Negative); Blood,Urine Negative (Negative); Color,Urine Yellow; Glucose,Urine (UA) Negative (Negative); Hyaline Casts,Urine 3 /lpf (0-2); Ketones,Urine Trace (Negative); Leukocyte Esterase,Urine Trace (Negative); Mucus,Urine Many /hpf; Nitrite,Urine Negative (Negative); PH, Urine 5.5 (5.0-8.0); Protein,Urine Trace (Negative); RBC,Urine 1 /hpf (0-5); Specific Gravity,Urine 1.026 (1.001-1.035); Squamous Epithelial Cell,Urine 8 /hpf (0-4); WBC,Urine 6 /hpf (0-5)
[2017-09-16 05:50] LABS: Anisocytosis Slight; Basophils % (A) 1 %; Eosinophils # (A) 0.2 k/uL (0-0.7); Eosinophils % (A) 8 %; HCT 21.5 % (34.0-46.0); Lymphocytes # (A) 0.4 k/uL (1.0-4.8); Lymphocytes % (A) 17 %; MCH 33.4 pg (25.0-35.0); MCHC 31.5 g/dL (31.0-37.0); Macrocytosis Marked; Mean Platelet Volume 8.6; Monocytes # (A) 0.2 k/uL (0-1.0); Monocytes % (A) 9 %; Neutrophils # (A) 1.4 k/uL (1.3-7.7); Neutrophils % (A) 64 %; Platelet Count 103 k/uL (150-450); RBC 2.03 m/uL (3.80-5.40); RDW 17.3 % (11.5-15.5); WBC 2.2 k/uL (3.8-10.6)
[2017-09-16 05:59] LABS: ALT 37 U/L (9-52); AST 56 U/L (14-36); Albumin 2.1 g/dL (3.5-5.0); Alkaline Phosphatase 205 U/L (38-126); Amylase 39 U/L (30-110); Anion Gap 8 mmol/L; Blood Urea Nitrogen 15 mg/dL (7-17); Calcium 7.9 mg/dL (8.4-10.2); Carbon Dioxide 22 mmol/L (22-30); Chloride 107 mmol/L (98-107); Glucose 106 mg/dL (74-99); Lipase 118 U/L (23-300); Potassium 3.8 mmol/L (3.5-5.1); Sodium 137 mmol/L (137-145); Total Protein 5.4 g/dL (6.3-8.2)
[2017-09-16 06:17] LABS: HGB 6.8 gm/dL (11.4-16.0)
[2017-09-16 07:17] LABS: Polychromasia Present
--- NOTE | 2017-09-16 07:25 | ED ---
Abdominal Pain HPI - General Chief Complaint: Abdominal Pain Stated Complaint: Abd pain Time Seen by Provider: 09/16/17 03:55 Source: patient Mode of arrival: ambulatory Limitations: no limitations - History of Present Illness Initial Comments: This patient is 52-year-old woman with history of chronic liver disease, who presents to be evaluated for right-sided abdominal pain that she states is constant, but she is out of her pain medication which she usually takes. She states that it has been 2 days since she had any of this medication at home. The patient also is complaining of a little bit of dyspnea with exertion and some generalized fatigue. She denies any other new symptoms. MD Complaint: abdominal pain -: week(s) Location: RUQ, RLQ Radiation: none Migration to: no migration Severity: moderate Quality: aching Consistency: constant Improves With: nothing Worsens With: nothing Associated Symptoms: denies other symptoms - Related Data Home Medications Medication Instructions Recorded Confirmed Omeprazole 20 mg PO DAILY PRN 07/31/17 09/16/17 HYDROcodone/APAP 7.5-325MG [[place] 1 tab PO Q4H PRN 09/01/17 09/16/17 7.5-325] Previous Rx's Medication Instructions Recorded Furosemide [Lasix] 40 mg PO DAILY #30 tablet 08/01/17 Spironolactone [Aldactone] 50 mg PO DAILY #30 tab 08/01/17 traMADol HCL [Ultram] 50 mg PO Q4HR PRN #21 tab 08/01/17 Ciprofloxacin HCl [Cipro] 500 mg PO Q12HR #30 tablet 09/07/17 Allergies Allergy/AdvReac Type Severity Reaction Status Date / Time No Known Allergies Allergy Verified 09/16/17 03:54 Review of Systems ROS Statement: Those systems with pertinent positive or pertinent negative responses have been documented in the HPI. ROS Other: All systems not noted in ROS Statement are negative. Constitutional: Denies: fever, chills, weakness Respiratory: Denies: cough, dyspnea Cardiovascular: Reports: dyspnea on exertion. Denies: chest pain, palpitations , orthopnea, edema, syncope Endocrine: Reports: fatigue Gastrointestinal: Reports: as per HPI, abdominal pain. Denies: nausea, vomiting , diarrhea, constipation Genitourinary: Denies: dysuria Musculoskeletal: Denies: back pain Skin: Denies: rash Neurological: Denies: headache, weakness Past Medical History Past Medical History: Cancer, GERD/Reflux, GI Bleed, Hearing Disorder / Deafness , Hypertension, Liver Disease Additional Past Medical History / Comment(s): Hepatitis C, ascities, cirrhosis, pancytopenia, vertigo; "benign abd mass", states has had esophageal banding, lt breast cancer had chemo last on 09-12-16-did not tolerate-completed only 3 cycles- then it was stopped, lt ear hearing loss, multiple upper GI bleeds. History of Any Multi-Drug Resistant Organisms: None Reported Past Surgical History: Adenoidectomy, Tonsillectomy Additional Past Surgical History / Comment(s): multiple Paracentesises, EGD, esophageal banding, rt chest mediport 08-06-16, l breast bx. Past Anesthesia/Blood Transfusion Reactions: No Reported Reaction Additional Past Anesthesia/Blood Transfusion Reaction / Comment(s): blood transfusions- no reaction Past Psychological History: Anxiety Smoking Status: Current every day smoker Past Alcohol Use History: None Reported Past Drug Use History: None Reported - Past Family History Mother Family Medical History: Cancer Additional Family Medical History / Comment(s): of lung ca at the age of 59yrs. She was a smoker. Father Family Medical History: Myocardial Infarction ([place]) Additional Family Medical History / Comment(s): from 2nd heart attack at the age of 59yrs. General Exam Limitations: no limitations General appearance: alert, in no apparent distress Head exam: Present: atraumatic, normocephalic Eye exam: Present: normal appearance, other (Conjunctival pallor). Absent: scleral icterus, conjunctival injection ENT exam: Present: normal oropharynx, other (Mucosal pallor) Neck exam: Present: normal inspection, full ROM Respiratory exam: Present: normal lung sounds bilaterally. Absent: respiratory distress, wheezes, rales, rhonchi, stridor Cardiovascular Exam: Present: regular rate, normal rhythm, normal heart sounds. Absent: systolic murmur, diastolic murmur, rubs, gallop GI/Abdominal exam: Present: soft, organomegaly, other (Patient does have a moderate amount of ascites.). Absent: distended, tenderness, guarding, rebound , rigid, mass Extremities exam: Present: normal inspection, normal capillary refill, pedal edema (Bilateral edema to below the knees.). Absent: calf tenderness Back exam: Present: normal inspection. Absent: CVA tenderness (R), CVA tenderness (L) Neurological exam: Present: alert Skin exam: Present: warm, dry, intact, pallor. Absent: rash Course Vital Signs 09/16/17 09/16/17 09/16/17 03:51 05:17 06:27 Temperature 98.8 F 98.9 F Pulse Rate 98 87 83 Respiratory 20 18 18 Rate Blood Pressure 132/76 111/59 102/55 O2 Sat by Pulse 98 98 95 Oximetry 09/16/17 07:16 Temperature Pulse Rate 83 Respiratory 18 Rate Blood Pressure 99/54 O2 Sat by Pulse 95 Oximetry Medical Decision Making - Medical Decision Making This patient is a 52-year-old woman who is coming in to be evaluated for abdominal pain that she states is chronic, usually managed with home medication but she is out of this. She is given some analgesia which did relieve her symptoms. Given that she had recently been admitted for peritonitis the blood counts were rechecked to ensure that there was no leukocytosis. There is not however the patient is found to have worsening anemia. Case discussed with her physician who will admit and patient will have transfusion here. - Lab Data Result diagrams: 09/16/17 05:29 09/16/17 05:29 Lab Results 09/16/17 09/16/17 09/16/17 Range/Units 04:45 05:29 05:29 WBC 2.2 L (3.8-10.6) k/uL RBC 2.03 L (3.80-5.40) m/uL Hgb 6.8 L* (11.4-16.0) gm/dL Hct 21.5 L (34.0-46.0) % MCV 106.0 H (80.0-100.0) fL MCH 33.4 (25.0-35.0) pg MCHC 31.5 (31.0-37.0) g/dL RDW 17.3 H (11.5-15.5) % Plt Count 103 L (150-450) k/uL Neutrophils % 64 % Lymphocytes % 17 % Monocytes % 9 % Eosinophils % 8 % Basophils % 1 % Neutrophils # 1.4 (1.3-7.7) k/uL Lymphocytes # 0.4 L (1.0-4.8) k/uL Monocytes # 0.2 (0-1.0) k/uL Eosinophils # 0.2 (0-0.7) k/uL Basophils # 0.0 (0-0.2) k/uL Manual Slide Review Performed Polychromasia Present Anisocytosis Slight Macrocytosis Marked Sodium 137 (137-145) mmol/L Potassium 3.8 (3.5-5.1) mmol/L Chloride 107 (98-107) mmol/L Carbon Dioxide 22 (22-30) mmol/L Anion Gap 8 mmol/L BUN 15 (7-17) mg/dL Creatinine 0.60 (0.52-1.04) mg/dL Est GFR (CKD-EPI)AfAm >90 (>60 ml/min/1.73 sqM) Est GFR (CKD-EPI)NonAf >90 (>60 ml/min/1.73 sqM) Glucose 106 H (74-99) mg/dL Calcium 7.9 L (8.4-10.2) mg/dL Total Bilirubin 1.0 (0.2-1.3) mg/dL AST 56 H (14-36) U/L ALT 37 (9-52) U/L Alkaline Phosphatase 205 H (38-126) U/L Total Protein 5.4 L (6.3-8.2) g/dL Albumin 2.1 L (3.5-5.0) g/dL Amylase 39 (30-110) U/L Lipase 118 (23-300) U/L Urine Color Yellow Urine Appearance Cloudy H (Clear) Urine pH 5.5 (5.0-8.0) Ur Specific [place] 1.026 (1.001-1.035) Urine Protein Trace H (Negative) Urine Glucose (UA) Negative (Negative) Urine Ketones Trace H (Negative) Urine Blood Negative (Negative) Urine Nitrite Negative (Negative) Urine Bilirubin Negative (Negative) Urine Urobilinogen 3.0 (<2.0) mg/dL Ur Leukocyte Esterase Trace H (Negative) Urine RBC 1 (0-5) /hpf Urine WBC 6 H (0-5) /hpf Ur Squamous Epith Cells 8 H (0-4) /hpf Amorphous Sediment Rare H (None) /hpf Urine Bacteria Rare H (None) /hpf Hyaline Casts 3 H (0-2) /lpf Urine Mucus Many H (None) /hpf Disposition Clinical Impression: Anemia, Ascites, Abdominal pain Disposition: ADMITTED IP TO THIS HOSP Condition: Poor Instructions: Abdominal Pain (ED) Is patient prescribed a controlled substance at d/c from ED?: No Referrals: Mark Estrada MD [Primary Care Provider] - 1-2 days
[2017-09-16] MEDS ORDERED: NALOXONE 0.4 MG/ML 1 ML VIAL IV PRN (07:26)
[2017-09-16] MEDS ORDERED: traMADol 50 MG TAB PO PRN (07:27)
[2017-09-16] MEDS ORDERED: PANTOPRAZOLE 40 MG TABLET PO PRN (07:27)
[2017-09-16] MEDS: HYDROcodone/APAP 7.5-325MG 1 EACH TAB PO PRN ×4 (08:25→21:50)
[2017-09-16] MEDS ORDERED: FUROSEMIDE 40 MG TAB PO SCH (09:00)
[2017-09-16] MEDS: CIPROFLOXACIN HCL 500 MG TAB PO SCH ×2 (10:07→21:43)
[2017-09-16] MEDS: SPIRONOLACTONE 25 MG TAB PO SCH (10:07)
[2017-09-16 11:55] VITALS: BMI 25.8
--- NOTE | 2017-09-16 18:08 | HP ---
HISTORY AND PHYSICAL CHIEF COMPLAINT: Abdominal pain and distention. HISTORY OF PRESENT ILLNESS: This is another admission for this unfortunate lady who has intractable ascites, hepatitis C and cirrhosis and was recently discharged after an episode of peritonitis. She does fairly well at home on diuretics and analgesics. She came back to the emergency room with recurrent abdominal pain and distention. Her hemoglobin has also dropped below 7. REVIEW OF SYSTEMS: She has no other complaints other than the pain, and there has been no interval history. PHYSICAL EXAMINATION: Blood pressure is better than usual at 125/68 with a pulse of 83, respirations of 35, and she is afebrile. In general she appeared to be chronically ill and dehydrated. Head, ears, eyes, nose, mouth and throat were unchanged. Neck veins were not distended. Breath sounds were diminished with rales bilaterally. Cardiac exam demonstrated sinus rhythm. The abdomen was firmly distended with ascites and tender throughout. Bowel sounds were not heard. EXTREMITIES: Normal. Neurologically she was intact. She is admitted to the hospital with the diagnoses: 1. Intractable ascites. 2. Cirrhosis. 3. Hepatitis C. 4. Recent episode of peritonitis. 5. Carcinoma of the breast. 6. Cachexia. 7. Pancytopenia. 8. Dropping hemoglobin. PLAN: 1. Bed rest. 2. IV fluids. 3. Transfuse 1 unit. 4. Consult Interventional Radiology. MMODL / NESTORN: [id number] /
[2017-09-16] MEDS: FUROSEMIDE 40 MG TAB PO SCH (21:43)
[2017-09-16 22:58] VITALS: RESP 16
[2017-09-17] MEDS: HYDROcodone/APAP 7.5-325MG 1 EACH TAB PO PRN ×4 (02:16→15:41)
[2017-09-17 06:37] VITALS: TEMP 97.4
[2017-09-17] MEDS: SPIRONOLACTONE 25 MG TAB PO SCH (08:01)
[2017-09-17] MEDS: FUROSEMIDE 40 MG TAB PO SCH (08:01)
[2017-09-17] MEDS: CIPROFLOXACIN HCL 500 MG TAB PO SCH (08:01)
[2017-09-17 09:02] LABS: Anisocytosis Slight; HCT 24.3 % (34.0-46.0); HGB 7.7 gm/dL (11.4-16.0); Hypochromasia Slight; MCH 33.4 pg (25.0-35.0); MCHC 31.5 g/dL (31.0-37.0); MCV 106.1 fL (80.0-100.0); Macrocytosis Marked; Mean Platelet Volume 8.7; RBC 2.29 m/uL (3.80-5.40); RDW 18.4 % (11.5-15.5); WBC 2.1 k/uL (3.8-10.6)
[2017-09-17 09:16] LABS: Platelet Count 99 k/uL (150-450)
[2017-09-17 09:19] LABS: INR 1.3 (<1.2); Prothrombin Time 11.9 sec (9.0-12.0)
[2017-09-17] MEDS ORDERED: LIDOCAINE 1% INJ 10MG/ML (20 ML MDV) SQ ONE (14:02)
[2017-09-17 15:03] VITALS: BP 98/49; PULSE 73
--- NOTE | 2017-09-17 15:21 | DS ---
DISCHARGE SUMMARY CHIEF COMPLAINT: Abdominal pain and intractable ascites. HISTORY OF PRESENT ILLNESS AND PHYSICAL EXAM: Details of this lady's history and physical can be found in the initial workup. LABORATORY STUDIES: While she has in the hospital, she had laboratory studies details of which can be found in the laboratory section of her chart. COURSE IN HOSPITAL: After admission, she was placed on bedrest, started on intravenous fluids and analgesics. She was seen by Interventional Radiology and at the time of dictation she was to be taken for paracentesis. After which she can be discharged. She received packed cells due to her chronic anemia and pancytopenia. She will be followed up in the office in a day or two. FINAL DIAGNOSES: 1. Intractable abdominal pain. 2. Intractable ascites. 3. Cirrhosis. 4. Hepatitis C. 5. Recent episode of peritonitis. 6. Carcinoma of the left breast. 7. Anemia. 8. Pancytopenia. OPERATIONS: Paracentesis. CONSULTATIONS: Interventional Radiology. She is improved. MMODL / NESTORN: [id number] /
--- NOTE | 2017-09-17 15:47 | US ---
EXAMINATION TYPE: US paracentesis abd w/image DATE OF EXAM: 09/17/2017 COMPARISON: NONE HISTORY: Ascites. PROCEDURE: Maximal barrier technique was utilized. The skin overlying a suitable pocket of fluid was localized with ultrasound and the overlying skin was prepped and draped. Ultrasound was utilized with sterile technique. Lidocaine was used for local anesthesia and a skin adela made with a scalpel. Catheter was advanced under direct ultrasound guidance into a suitable pocket of fluid and approximately 7 liters of serous fluid were removed. Catheter was withdrawn and hemostasis achieved. There is no immediate complication; the patient is discharged in stable condition. IMPRESSION: STATUS POST ULTRASOUND GUIDED PARACENTESIS FOR PALLIATION OF ASCITES. THIS PROCEDURE WA S PERFORMED BY THE UNDERSIGNED.
== END 2017-09-17 16:36 | disposition home or self-care (01) ==
LOC: EC 03:46 → 4MS4W 07:26
PROVIDERS: ADMIT Family Medicine; ATTEND Family Medicine
DX: B19.20 Unspecified viral hepatitis C without hepatic coma (principal); R18.8 Other ascites; K74.60 Unspecified cirrhosis of liver; D61.818 Other pancytopenia; E86.0 Dehydration; R64 Cachexia; C50.912 Malignant neoplasm of unspecified site of left female breast; R53.83 Other fatigue; I10 Essential (primary) hypertension; H91.90 Unspecified hearing loss, unspecified ear; K21.9 Gastro-esophageal reflux disease without esophagitis; F41.9 Anxiety disorder, unspecified; Z79.2 Long term (current) use of antibiotics; Z79.899 Other long term (current) drug therapy; Z86.19 Personal history of other infectious and parasitic diseases; Z92.21 Personal history of antineoplastic chemotherapy; Z87.19 Personal history of other diseases of the digestive system; Z80.1 Family history of malignant neoplasm of trachea, bronchus and lung; Z81.2 Family history of tobacco abuse and dependence; Z82.49 Family history of ischemic heart disease and other diseases of the circulatory system
CPT/HCPCS: 99284 ×2; 96374 ×2; 36415; 86900; 86901; 80053; 82150; 83690; 85025; 85027; 85610; 86850; 86920; 81001; 49083; G0378 ×2; P9016; J2001; J2270

== ENCOUNTER 2017-09-18 12:30 | Emergency (ER) | payer MEDICARE, OTHER ==
[2017-09-18 13:00] VITALS: BP 113/71; PULSE 80; RESP 18; TEMP 98.9
--- NOTE | 2017-09-18 13:34 | ED ---
General Adult HPI - General Chief complaint: Abdominal Pain Stated complaint: abd pain Time Seen by Provider: 09/18/17 13:17 Source: patient, RN notes reviewed Mode of arrival: ambulatory Limitations: no limitations - History of Present Illness Initial comments: Patient 52-year-old female presenting to the emergency room today with chief complaint of needing prescription for pain. Patient states that she was recently discharged yesterday from the hospital and was advised to see the doctor's office today at noon. Sensation to his office and he was out for a meeting he would not be back until Thursday. She states that she has pain medication of Pal[place] that she usually uses that she is out. She does takes 10/ 325 Palouse's. Patient states this is her only reason to come here to the emergency room is because she did not know what else to do for the pain. She denies any other complaints or symptoms at this time. Denies any dizziness or lightheadedness. Patient denies any recent fever, chills, shortness of breath, chest pain, headaches or visual changes, or any other complaints. - Related Data Home Medications Medication Instructions Recorded Confirmed Omeprazole 20 mg PO BID 07/31/17 09/16/17 HYDROcodone/APAP 7.5-325MG [[place] 1 tab PO Q4H PRN 09/01/17 09/16/17 7.5-325] Furosemide [Lasix] 40 mg PO BID 09/16/17 09/16/17 Nicotine 14Mg/24Hr Patch [Habitrol] 1 patch TRANSDERM DAILY 09/16/17 09/16/17 Previous Rx's Medication Instructions Recorded Ciprofloxacin HCl [Cipro] 500 mg PO Q12HR #30 tablet 09/07/17 Spironolactone [Aldactone] 50 mg PO DAILY #30 tab 09/17/17 HYDROcodone/APAP 10-325MG [[place] 1 tab PO Q6HR PRN 3 Days #12 tab 09/18/17 10-325] Allergies Allergy/AdvReac Type Severity Reaction Status Date / Time No Known Allergies Allergy Verified 09/18/17 13:29 Review of Systems ROS Statement: Those systems with pertinent positive or pertinent negative responses have been documented in the HPI. ROS Other: All systems not noted in ROS Statement are negative. Past Medical History Past Medical History: Cancer, GERD/Reflux, GI Bleed, Hearing Disorder / Deafness , Hypertension, Liver Disease Additional Past Medical History / Comment(s): Hepatitis C, ascities, cirrhosis, pancytopenia, vertigo; "benign abd mass", states has had esophageal banding, lt breast cancer had chemo last on 09-12-16-did not tolerate-completed only 3 cycles- then it was stopped, lt ear hearing loss, multiple upper GI bleeds. History of Any Multi-Drug Resistant Organisms: None Reported Past Surgical History: Adenoidectomy, Tonsillectomy Additional Past Surgical History / Comment(s): multiple Paracentesises, EGD, esophageal banding, rt chest mediport 08-06-16, l breast bx. Past Anesthesia/Blood Transfusion Reactions: No Reported Reaction Additional Past Anesthesia/Blood Transfusion Reaction / Comment(s): blood transfusions- no reaction Past Psychological History: Anxiety Smoking Status: Current every day smoker Past Alcohol Use History: None Reported Past Drug Use History: None Reported - Past Family History Mother Family Medical History: Cancer Additional Family Medical History / Comment(s): of lung ca at the age of 59yrs. She was a smoker. Father Family Medical History: Myocardial Infarction ([place]) Additional Family Medical History / Comment(s): from 2nd heart attack at the age of 59yrs. General Exam - General Exam Comments Initial Comments: General: The patient is awake and alert, in no distress, and does not appear acutely ill. Eye: Pupils are equal, round and reactive to light, extra-ocular movements are intact. No nystagmus. There is normal conjunctiva bilaterally. No signs of icterus. Ears, nose, mouth and throat: There are moist mucous membranes and no oral lesions. Neck: The neck is supple, there is no tenderness or JVD. Musculoskeletal: Normal ROM, no tenderness. Strength 5/5. Sensation intact. Neurological: A&O x 3. CN II-XII intact, There are no obvious motor or sensory deficits. Coordination appears grossly intact. Speech is normal. Skin: Skin is warm and dry and no rashes or lesions are noted. Psychiatric: Cooperative, appropriate mood & affect, normal judgment. Limitations: no limitations Course Vital Signs 09/18/17 12:57 Temperature 98.9 F Pulse Rate 80 Respiratory 18 Rate Blood Pressure 113/71 O2 Sat by Pulse 99 Oximetry Medical Decision Making - Medical Decision Making 52-year-old female presenting for pain medication. Patient states that she was procedure doctor in the office today is not there. She did not oral sting for her pain. She is currently out of her Pal[place] 10/325. The [facility] [employer] prescription system was checked showing the patient last received 120 Palouse on 08/17/2017 Disposition Clinical Impression: Chronic pain Disposition: HOME SELF-CARE Condition: Good Instructions: Chronic Pain (ED) Additional Instructions: Please use medication as discussed. Please follow-up with family doctor in the next 2 days for further pain medication. Please return to emergency room if the symptoms increase or worsen or for any other concerns. Prescriptions: HYDROcodone/APAP 10-325MG [[place] 10-325] 1 tab PO Q6HR PRN 3 Days #12 tab PRN Reason: Pain Is patient prescribed a controlled substance at d/c from ED?: Yes When asked, does pt state using other controlled substances?: Yes If prescribed controlled substance>3 days was MAPS reviewed?: Prescribed <3 Days If Rx opioid, was Start Talking consent form obtained?: Yes Referrals: None,Stated [Primary Care Provider] - 1-2 days Mark Estrada MD [STAFF PHYSICIAN] - 1-2 days Time of Disposition: 13:32
== END 2017-09-18 13:48 | disposition home or self-care (01) ==
LOC: EC 12:30
DX: G89.29 Other chronic pain (principal); I10 Essential (primary) hypertension; K21.9 Gastro-esophageal reflux disease without esophagitis; F17.200 Nicotine dependence, unspecified, uncomplicated; Z79.899 Other long term (current) drug therapy; Z85.3 Personal history of malignant neoplasm of breast; Z92.21 Personal history of antineoplastic chemotherapy
CPT/HCPCS: 99283

== ENCOUNTER 2017-09-24 11:45 | Day surgery (SDC) | payer MEDICARE, OTHER ==
[2017-09-24 12:36] LABS: Mean Platelet Volume 9.1; Platelet Count 103 k/uL (150-450)
[2017-09-24 12:50] VITALS: TEMP 97.9
[2017-09-24 13:02] LABS: INR 1.2 (<1.2); Prothrombin Time 11.4 sec (9.0-12.0)
[2017-09-24] MEDS: ALBUMIN HUMAN 25% 50 ML in EMPTY BAG 1 BAG IVPB SCH ×4 (14:02→14:45)
--- NOTE | 2017-09-24 14:48 | US ---
Therapeutic paracentesis. DATE OF EXAM: 09/24/2017 CLINICAL HISTORY: Ascites The procedure was discussed with the patient. The risks, complications, benefits, and alternatives we re discussed and any questions were answered. Informed consent was obtained. The patient was placed s upine on the ultrasound table and prepped and draped in the usual sterile fashion. All elements of maximal barrier technique were utilized. Under ultrasound guidance, access into the left lower quadrant was obtained, via the paracentesis catheter system and direct ultrasound guidance . Approximately 8 liters of straw-colored fluid was removed. The patient was stable throughout the proc edure and remained stable upon discharge from Department of Radiology. IMPRESSION: Successful therapeutic paracentesis under ultrasound guidance.
[2017-09-24 15:21] VITALS: BP 96/52; PULSE 77; RESP 18
== END 2017-09-24 15:15 | disposition home or self-care (01) ==
LOC: RADPROMAIN 11:45
PROVIDERS: ATTEND Family Medicine
DX: R18.8 Other ascites (principal); K74.60 Unspecified cirrhosis of liver
CPT/HCPCS: 82565; 85049; 85610; 96365; 49083; P9047

== ENCOUNTER 2017-10-14 11:05 | Emergency (ER) | payer MEDICARE, OTHER ==
[2017-10-14 11:56] LABS: Basophils % (A) 0 %; Eosinophils # (A) 0.1 k/uL (0-0.7); Eosinophils % (A) 3 %; HCT 29.2 % (34.0-46.0); Hypochromasia Slight; Lymphocytes # (A) 0.4 k/uL (1.0-4.8); Lymphocytes % (A) 15 %; MCH 33.8 pg (25.0-35.0); MCHC 32.3 g/dL (31.0-37.0); MCV 104.7 fL (80.0-100.0); Macrocytosis Moderate; Monocytes # (A) 0.2 k/uL (0-1.0); Monocytes % (A) 7 %; Neutrophils # (A) 1.9 k/uL (1.3-7.7); Neutrophils % (A) 72 %; Platelet Count 100 k/uL (150-450); RBC 2.78 m/uL (3.80-5.40); RDW 15.8 % (11.5-15.5); WBC 2.6 k/uL (3.8-10.6)
[2017-10-14] MEDS ORDERED: ONDANSETRON 4 MG/2 ML VIAL IVP STA (11:57)
[2017-10-14] MEDS ORDERED: MORPHINE SULFATE 2 MG/ML SYRINGE IVP STA ×2 (11:57→14:37)
[2017-10-14 11:59] LABS: HGB 9.4 gm/dL (11.4-16.0)
--- NOTE | 2017-10-14 12:00 | ED ---
Abdominal Pain HPI <Nir Garcia - Last Filed: 10/14/17 14:37> - General Source: patient, RN notes reviewed Mode of arrival: wheelchair Limitations: no limitations <Jeet Snyder - Last Filed: 10/14/17 14:39> - General Chief Complaint: Abdominal Pain Stated Complaint: Abd Pain Time Seen by Provider: 10/14/17 11:26 - History of Present Illness Initial Comments: This is a 52-year-old female presents emergency Department chief complaint of abdominal pain. Patient has liver cirrhosis with ascites. She states that she has a paracentesis once weekly. She states that she missed the bus last week and Mr. appointment. She states she is trying to get her appointment tomorrow states she woke up vomiting and in severe pain. Patient states she is very distended worsened usual. She hasn't current chest pain feel chills. (Jeet Snyder) - Related Data Home Medications Medication Instructions Recorded Confirmed Omeprazole 20 mg PO BID 07/31/17 10/14/17 Furosemide [Lasix] 40 mg PO BID 09/16/17 10/14/17 Amoxic-Pot Clav 875-125Mg 1 tab PO Q12HR 10/14/17 10/14/17 [Augmentin 875-125] Previous Rx's Medication Instructions Recorded Spironolactone [Aldactone] 50 mg PO DAILY #30 tab 09/17/17 HYDROcodone/APAP 10-325MG [[place] 1 tab PO Q6HR PRN 3 Days #12 tab 09/18/17 10-325] Allergies Allergy/AdvReac Type Severity Reaction Status Date / Time No Known Allergies Allergy Verified 10/14/17 11:36 Review of Systems ROS Other: All systems not noted in ROS Statement are negative. <Nir Garcia - Last Filed: 10/14/17 14:37> ROS Other: All systems not noted in ROS Statement are negative. <Jeet Snyder - Last Filed: 10/14/17 14:39> ROS Statement: Those systems with pertinent positive or pertinent negative responses have been documented in the HPI. Past Medical History Past Medical History: Cancer, GERD/Reflux, GI Bleed, Hearing Disorder / Deafness , Hypertension, Liver Disease Additional Past Medical History / Comment(s): Hepatitis C, ascities, cirrhosis, pancytopenia, vertigo; "benign abd mass", states has had esophageal banding, lt breast cancer had chemo last on 09-12-16-did not tolerate-completed only 3 cycles- then it was stopped, lt ear hearing loss, multiple upper GI bleeds. History of Any Multi-Drug Resistant Organisms: None Reported Past Surgical History: Adenoidectomy, Tonsillectomy Additional Past Surgical History / Comment(s): multiple Paracentesises, EGD, esophageal banding, rt chest mediport 08-06-16, l breast bx. Past Anesthesia/Blood Transfusion Reactions: No Reported Reaction Additional Past Anesthesia/Blood Transfusion Reaction / Comment(s): blood transfusions- no reaction Past Psychological History: Anxiety Smoking Status: Current every day smoker Past Alcohol Use History: None Reported Past Drug Use History: None Reported - Past Family History Mother Family Medical History: Cancer Additional Family Medical History / Comment(s): of lung ca at the age of 59yrs. She was a smoker. Father Family Medical History: Myocardial Infarction ([place]) Additional Family Medical History / Comment(s): from 2nd heart attack at the age of 59yrs. <Jeet Snyder - Last Filed: 10/14/17 14:39> General Exam Limitations: no limitations General appearance: alert, in no apparent distress Head exam: Present: atraumatic, normocephalic, normal inspection Neck exam: Present: normal inspection. Absent: tenderness, meningismus, lymphadenopathy Respiratory exam: Present: normal lung sounds bilaterally. Absent: respiratory distress, wheezes, rales, rhonchi, stridor Cardiovascular Exam: Present: regular rate, normal rhythm, normal heart sounds. Absent: systolic murmur, diastolic murmur, rubs, gallop, clicks GI/Abdominal exam: Present: distended, tenderness, rigid, normal bowel sounds. Absent: soft, guarding, rebound Skin exam: Present: warm, dry, intact, normal color. Absent: rash <Jeet Snyder - Last Filed: 10/14/17 14:39> Vital Signs 10/14/17 10/14/17 11:22 12:14 Temperature 98.1 F Pulse Rate 100 94 Respiratory 28 H 20 Rate Blood Pressure 135/73 203/74 O2 Sat by Pulse 96 98 Oximetry Medical Decision Making - Lab Data Result diagrams: 10/14/17 11:40 10/14/17 11:40 <Nir Garcia - Last Filed: 10/14/17 14:37> - Lab Data Result diagrams: 10/14/17 11:40 10/14/17 11:40 <Jeet Snyder - Last Filed: 10/14/17 14:39> - Medical Decision Making Patient reevaluated by myself, Dr. Garcia. Patient does have ascites and leg edema. Patient states this is chronic from her liver failure. Patient missed her last 2 appointments for paracentesis. Patient is scheduled again to have this done tomorrow. Interventional radiology was contacted however unable to do the procedure today. Patient is comfortable with an injection for pain medicine and is agreeable that she will make her appointment tomorrow. Case was discussed with Dr. Rendon, covering for Dr. Estrada who is in agreement. ( Nir Garcia) - Lab Data Lab Results 10/14/17 10/14/17 10/14/17 Range/Units 11:40 11:40 11:40 WBC 2.6 L (3.8-10.6) k/uL RBC 2.78 L (3.80-5.40) m/uL Hgb 9.4 L D (11.4-16.0) gm/dL Hct 29.2 L (34.0-46.0) % MCV 104.7 H (80.0-100.0) fL MCH 33.8 (25.0-35.0) pg MCHC 32.3 (31.0-37.0) g/dL RDW 15.8 H (11.5-15.5) % Plt Count 100 L (150-450) k/uL Neutrophils % 72 % Lymphocytes % 15 % Monocytes % 7 % Eosinophils % 3 % Basophils % 0 % Neutrophils # 1.9 (1.3-7.7) k/uL Lymphocytes # 0.4 L (1.0-4.8) k/uL Monocytes # 0.2 (0-1.0) k/uL Eosinophils # 0.1 (0-0.7) k/uL Basophils # 0.0 (0-0.2) k/uL Hypochromasia Slight Macrocytosis Moderate PT 11.0 (9.0-12.0) sec INR 1.1 (<1.2) APTT 41.7 H (22.0-30.0) sec Sodium 139 (137-145) mmol/L Potassium 3.9 (3.5-5.1) mmol/L Chloride 108 H (98-107) mmol/L Carbon Dioxide 23 (22-30) mmol/L Anion Gap 8 mmol/L BUN 14 (7-17) mg/dL Creatinine 0.64 (0.52-1.04) mg/dL Est GFR (CKD-EPI)AfAm >90 (>60 ml/min/1.73 sqM) Est GFR (CKD-EPI)NonAf >90 (>60 ml/min/1.73 sqM) Glucose 112 H (74-99) mg/dL Calcium 7.9 L (8.4-10.2) mg/dL Total Bilirubin 0.9 (0.2-1.3) mg/dL AST 30 (14-36) U/L ALT 21 (9-52) U/L Alkaline Phosphatase 132 H (38-126) U/L Total Protein 6.1 L (6.3-8.2) g/dL Albumin 2.4 L (3.5-5.0) g/dL Amylase 37 (30-110) U/L Lipase 117 (23-300) U/L Urine Color Urine Appearance (Clear) Urine pH (5.0-8.0) Ur Specific [place] (1.001-1.035) Urine Protein (Negative) Urine Glucose (UA) (Negative) Urine Ketones (Negative) Urine Blood (Negative) Urine Nitrite (Negative) Urine Bilirubin (Negative) Urine Urobilinogen (<2.0) mg/dL Ur Leukocyte Esterase (Negative) Urine RBC (0-5) /hpf Urine WBC (0-5) /hpf Ur Squamous Epith Cells (0-4) /hpf Urine Mucus (None) /hpf 10/14/17 Range/Units 12:15 WBC (3.8-10.6) k/uL RBC (3.80-5.40) m/uL Hgb (11.4-16.0) gm/dL Hct (34.0-46.0) % MCV (80.0-100.0) fL MCH (25.0-35.0) pg MCHC (31.0-37.0) g/dL RDW (11.5-15.5) % Plt Count (150-450) k/uL Neutrophils % % Lymphocytes % % Monocytes % % Eosinophils % % Basophils % % Neutrophils # (1.3-7.7) k/uL Lymphocytes # (1.0-4.8) k/uL Monocytes # (0-1.0) k/uL Eosinophils # (0-0.7) k/uL Basophils # (0-0.2) k/uL Hypochromasia Macrocytosis PT (9.0-12.0) sec INR (<1.2) APTT (22.0-30.0) sec Sodium (137-145) mmol/L Potassium (3.5-5.1) mmol/L Chloride (98-107) mmol/L Carbon Dioxide (22-30) mmol/L Anion Gap mmol/L BUN (7-17) mg/dL Creatinine (0.52-1.04) mg/dL Est GFR (CKD-EPI)AfAm (>60 ml/min/1.73 sqM) Est GFR (CKD-EPI)NonAf (>60 ml/min/1.73 sqM) Glucose (74-99) mg/dL Calcium (8.4-10.2) mg/dL Total Bilirubin (0.2-1.3) mg/dL AST (14-36) U/L ALT (9-52) U/L Alkaline Phosphatase (38-126) U/L Total Protein (6.3-8.2) g/dL Albumin (3.5-5.0) g/dL Amylase (30-110) U/L Lipase (23-300) U/L Urine Color Dark Yellow Urine Appearance Cloudy H (Clear) Urine pH 6.0 (5.0-8.0) Ur Specific [place] 1.035 (1.001-1.035) Urine Protein 1+ H (Negative) Urine Glucose (UA) Negative (Negative) Urine Ketones Trace H (Negative) Urine Blood Negative (Negative) Urine Nitrite Negative (Negative) Urine Bilirubin 1+ H (Negative) Urine Urobilinogen 4.0 (<2.0) mg/dL Ur Leukocyte Esterase Negative (Negative) Urine RBC 3 (0-5) /hpf Urine WBC 1 (0-5) /hpf Ur Squamous Epith Cells 5 H (0-4) /hpf Urine Mucus Many H (None) /hpf Disposition <Nir Garcia - Last Filed: 10/14/17 14:37> Is patient prescribed a controlled substance at d/c from ED?: No Time of Disposition: 14:39 <Jeet Snyder - Last Filed: 10/14/17 14:39> Clinical Impression: Ascites, Abdominal pain Disposition: HOME SELF-CARE Condition: Stable Instructions: Abdominal Pain (ED) Additional Instructions: Follow-up tomorrow your scheduled appointment.Please return to the Emergency Department if symptoms worsen or any other concerns. Referrals: Mark Estrada MD [Primary Care Provider] - 1-2 days
[2017-10-14 12:15] VITALS: RESP 20
[2017-10-14 12:22] LABS: ALT 21 U/L (9-52); AST 30 U/L (14-36); Albumin 2.4 g/dL (3.5-5.0); Alkaline Phosphatase 132 U/L (38-126); Amylase 37 U/L (30-110); Anion Gap 8 mmol/L; Blood Urea Nitrogen 14 mg/dL (7-17); Calcium 7.9 mg/dL (8.4-10.2); Carbon Dioxide 23 mmol/L (22-30); Chloride 108 mmol/L (98-107); Glucose 112 mg/dL (74-99); Lipase 117 U/L (23-300); Potassium 3.9 mmol/L (3.5-5.1); Sodium 139 mmol/L (137-145); Total Bilirubin 0.9 mg/dL (0.2-1.3); Total Protein 6.1 g/dL (6.3-8.2)
[2017-10-14 12:26] LABS: INR 1.1 (<1.2); Partial Thromboplastin Time 41.7 sec (22.0-30.0)
[2017-10-14 12:49] LABS: Appearance,Urine Cloudy (Clear); Bilirubin,Urine 1+ (Negative); Blood,Urine Negative (Negative); Color,Urine Dark Yellow; Glucose,Urine (UA) Negative (Negative); Ketones,Urine Trace (Negative); Leukocyte Esterase,Urine Negative (Negative); Mucus,Urine Many /hpf; Nitrite,Urine Negative (Negative); Protein,Urine 1+ (Negative); RBC,Urine 3 /hpf (0-5); Specific Gravity,Urine 1.035 (1.001-1.035); Squamous Epithelial Cell,Urine 5 /hpf (0-4); WBC,Urine 1 /hpf (0-5)
[2017-10-14] MEDS ORDERED: FUROSEMIDE 10 MG/ML 4 ML VIAL IV STA (14:37)
[2017-10-14 15:03] VITALS: BP 119/59; PULSE 88; TEMP 98.4
== END 2017-10-14 15:18 | disposition home or self-care (01) ==
LOC: EC 11:05
DX: R18.8 Other ascites (principal); K21.9 Gastro-esophageal reflux disease without esophagitis; I10 Essential (primary) hypertension; K74.60 Unspecified cirrhosis of liver; F17.200 Nicotine dependence, unspecified, uncomplicated; Z85.3 Personal history of malignant neoplasm of breast; Z92.21 Personal history of antineoplastic chemotherapy; Z79.899 Other long term (current) drug therapy
CPT/HCPCS: 36415; 80053; 82150; 83690; 85025; 85610; 85730; 81001; 99284; 96374; 96375 ×2; 96376; J1940; J2405; J2270

== ENCOUNTER 2017-10-15 11:45 | Day surgery (SDC) | payer MEDICARE, OTHER ==
[2017-10-15 12:05] VITALS: TEMP 98.1
[2017-10-15 12:22] LABS: Mean Platelet Volume 8.8
[2017-10-15 12:36] LABS: INR 1.2 (<1.2); Prothrombin Time 11.4 sec (9.0-12.0)
[2017-10-15 12:48] LABS: Platelet Count 91 k/uL (150-450)
[2017-10-15] MEDS: ALBUMIN HUMAN 25% 50 ML in EMPTY BAG 1 BAG IVPB SCH ×4 (13:47→14:34)
[2017-10-15 14:58] VITALS: BP 94/42; PULSE 86; RESP 18
--- NOTE | 2017-10-16 16:13 | US ---
EXAMINATION TYPE: US paracentesis abd w/image DATE OF EXAM: 10/16/2017 COMPARISON: NONE HISTORY: Ascites. PROCEDURE: Maximal barrier technique was utilized. The skin overlying a suitable pocket of fluid was localized with ultrasound and the overlying skin was prepped and draped. Ultrasound was utilized with sterile technique. Lidocaine was used for local anesthesia and a skin adela made with a scalpel. Catheter was advanced under direct ultrasound guidance into a suitable pocket of fluid and approximately 9 liters of serous fluid were removed. Catheter was withdrawn and hemostasis achieved. There is no immediate complication; the patient is discharged in stable condition. IMPRESSION: STATUS POST ULTRASOUND GUIDED PARACENTESIS FOR PALLIATION OF ASCITES. THIS PROCEDURE WA S PERFORMED BY THE UNDERSIGNED.
== END 2017-10-15 15:30 | disposition home or self-care (01) ==
LOC: RADPROMAIN 11:45
PROVIDERS: ATTEND Family Medicine
DX: K70.31 Alcoholic cirrhosis of liver with ascites (principal)
CPT/HCPCS: 82565; 85049; 85610; 49083; P9047; J1642

== ENCOUNTER 2017-10-22 11:29 | Day surgery (SDC) | payer MEDICARE, OTHER ==
[2017-10-22 12:24] VITALS: TEMP 98
[2017-10-22 12:31] LABS: INR 1.2 (<1.2); Prothrombin Time 11.6 sec (9.0-12.0)
[2017-10-22 12:42] LABS: Mean Platelet Volume 8.9
[2017-10-22 12:43] LABS: Platelet Count 89 k/uL (150-450)
[2017-10-22] MEDS: ALBUMIN HUMAN 25% 50 ML in EMPTY BAG 1 BAG IVPB SCH ×4 (13:49→14:36)
[2017-10-22 13:55] VITALS: RESP 20
[2017-10-22 14:50] VITALS: BP 100/57
[2017-10-22 14:53] VITALS: PULSE 83
--- NOTE | 2017-10-22 15:49 | US ---
EXAMINATION TYPE: US paracentesis abd w/image DATE OF EXAM: 10/22/2017 COMPARISON: NONE HISTORY: Ascites. PROCEDURE: Maximal barrier technique was utilized. The skin overlying a suitable pocket of fluid was localized with ultrasound and the overlying skin was prepped and draped. Ultrasound was utilized with sterile technique. Lidocaine was used for local anesthesia and a skin adela made with a scalpel. Catheter was advanced under direct ultrasound guidance into a suitable pocket of fluid and approximately 10.9 lite rs of serous fluid were removed. Catheter was withdrawn and hemostasis achieved. There is no immedi ate complication; the patient is discharged in stable condition. IMPRESSION: STATUS POST ULTRASOUND GUIDED PARACENTESIS FOR PALLIATION OF ASCITES. THIS PROCEDURE WA S PERFORMED BY THE UNDERSIGNED.
== END 2017-10-22 15:25 | disposition home or self-care (01) ==
LOC: RADPROMAIN 11:29
PROVIDERS: ATTEND Family Medicine
DX: R18.8 Other ascites (principal)
CPT/HCPCS: 82565; 85049; 85610; 96365; 36415; 49083; P9047; J1642

== ENCOUNTER 2017-11-02 11:56 | Day surgery (SDC) | payer MEDICARE, OTHER ==
[2017-11-02 12:40] LABS: INR 1.3 (<1.2); Prothrombin Time 12.1 sec (9.0-12.0)
[2017-11-02 12:42] LABS: Mean Platelet Volume 8.3
[2017-11-02 12:43] LABS: Platelet Count 78 k/uL (150-450)
[2017-11-02 13:03] VITALS: TEMP 98.1
[2017-11-02] MEDS: ALBUMIN HUMAN 25% 50 ML in EMPTY BAG 1 BAG IVPB SCH ×4 (13:11→13:53)
[2017-11-02] MEDS ORDERED: LIDOCAINE 1% INJ 10MG/ML (20 ML MDV) SQ STA (13:15)
[2017-11-02 13:20] VITALS: RESP 16
[2017-11-02 14:43] VITALS: BP 109/51; PULSE 78
--- NOTE | 2017-11-02 15:16 | US ---
Therapeutic paracentesis. DATE OF EXAM: 11/02/2017 CLINICAL HISTORY: Ascites The procedure was discussed with the patient. The risks, complications, benefits, and alternatives we re discussed and any questions were answered. Informed consent was obtained. The patient was placed s upine on the ultrasound table and prepped and draped in the usual sterile fashion. All elements of maximal barrier technique were utilized. Under ultrasound guidance, access into the left lower quadrant was obtained, via the paracentesis catheter system and direct ultrasound guidance . Approximately 9.3 liters of straw-colored fluid was removed. The patient was stable throughout the pr ocedure and remained stable upon discharge from Department of Radiology. IMPRESSION: Successful therapeutic paracentesis under ultrasound guidance.
== END 2017-11-02 14:25 | disposition home or self-care (01) ==
LOC: RADPROMAIN 11:56
PROVIDERS: ATTEND Family Medicine
DX: R18.8 Other ascites (principal)
CPT/HCPCS: 82565; 85049; 85610; 96365; 49083; J2001; P9047; J1642

== ENCOUNTER 2017-11-11 11:18 | Day surgery (SDC) | payer MEDICARE, OTHER ==
[2017-11-11 12:47] LABS: Mean Platelet Volume 8.3
[2017-11-11 12:48] LABS: INR 1.2 (<1.2); Platelet Count 69 k/uL (150-450); Prothrombin Time 11.5 sec (9.0-12.0)
[2017-11-11] MEDS: ALBUMIN HUMAN 25% 50 ML in EMPTY BAG 1 BAG IVPB SCH ×4 (13:29→14:52)
[2017-11-11 13:39] VITALS: RESP 18; TEMP 98.2
[2017-11-11 14:05] VITALS: PULSE 97
[2017-11-11 14:53] VITALS: BP 114/62
--- NOTE | 2017-11-11 15:48 | US ---
EXAMINATION TYPE: US paracentesis abd w/image DATE OF EXAM: 11/11/2017 COMPARISON: NONE HISTORY: Ascites. PROCEDURE: Maximal barrier technique was utilized. The skin overlying a suitable pocket of fluid was localized with ultrasound and the overlying skin was prepped and draped. Ultrasound was utilized with sterile technique. Lidocaine was used for local anesthesia and a skin adela made with a scalpel. Catheter was advanced under direct ultrasound guidance into a suitable pocket of fluid and approximately 7.5 liter s of serous fluid were removed. Catheter was withdrawn and hemostasis achieved. There is no immedia te complication; the patient is discharged in stable condition. IMPRESSION: STATUS POST ULTRASOUND GUIDED PARACENTESIS FOR PALLIATION OF ASCITES. THIS PROCEDURE WA S PERFORMED BY THE UNDERSIGNED.
== END 2017-11-11 15:10 | disposition home or self-care (01) ==
LOC: RADPROMAIN 11:18
PROVIDERS: ATTEND Family Medicine
DX: K70.31 Alcoholic cirrhosis of liver with ascites (principal)
CPT/HCPCS: 82565; 85049; 85610; 49083; P9047

== ENCOUNTER 2017-11-19 11:29 | Day surgery (SDC) | payer MEDICARE, OTHER ==
[2017-11-19 12:23] VITALS: RESP 20; TEMP 98.5
[2017-11-19 12:35] LABS: INR 1.3 (<1.2)
[2017-11-19 12:39] LABS: Mean Platelet Volume 8.8
[2017-11-19 12:52] LABS: Platelet Count 67 k/uL (150-450)
[2017-11-19] MEDS: ALBUMIN HUMAN 25% 50 ML in EMPTY BAG 1 BAG IVPB SCH ×4 (13:26→14:10)
[2017-11-19 14:35] VITALS: BP 111/57; PULSE 84
--- NOTE | 2017-11-19 15:26 | US ---
Therapeutic paracentesis. DATE OF EXAM: 11/19/2017 CLINICAL HISTORY: Ascites The procedure was discussed with the patient. The risks, complications, benefits, and alternatives we re discussed and any questions were answered. Informed consent was obtained. The patient was placed s upine on the ultrasound table and prepped and draped in the usual sterile fashion. All elements of maximal barrier technique were utilized. Under ultrasound guidance, access into the left lower quadrant was obtained, via the paracentesis catheter system and direct ultrasound guidance . Approximately 12 liters of straw-colored fluid was removed. The patient was stable throughout the pro cedure and remained stable upon discharge from Department of Radiology. IMPRESSION: Successful therapeutic paracentesis under ultrasound guidance.
== END 2017-11-19 15:15 | disposition home or self-care (01) ==
LOC: RADPROMAIN 11:29
PROVIDERS: ATTEND Family Medicine
DX: R18.8 Other ascites (principal); K74.60 Unspecified cirrhosis of liver
CPT/HCPCS: 82565; 85049; 85610; 49083; P9047; J1642

== ENCOUNTER 2017-11-20 02:25 | Emergency (ER) | payer MEDICARE, OTHER ==
[2017-11-20 02:32] VITALS: RESP 18
[2017-11-20] MEDS ORDERED: ONDANSETRON 4 MG/2 ML VIAL IVP STA (02:53)
[2017-11-20] MEDS ORDERED: MORPHINE SULFATE 4 MG/ML SYRINGE IVP STA (02:53)
--- NOTE | 2017-11-20 02:56 | ED ---
Abdominal Pain HPI - General Chief Complaint: Abdominal Pain Stated Complaint: SIDE PAIN Time Seen by Provider: 11/20/17 02:39 Source: patient, RN notes reviewed Mode of arrival: ambulatory Limitations: no limitations - History of Present Illness Initial Comments: This is a 52-year-old female with history of liver cirrhosis, hepatitis C and ascites who presents to the emergency department with chief complaint of right upper quadrant abdominal pain. Patient states that she is in constant pain and takes H[place] 10 at home. She states that she has not had any pain medications for one day. She was supposed to follow up with Dr. Estrada today for a refill of her medications but he cancelled and rescheduled the appointment for next Thursday. She states that yesterday, November 19 she had 12 L of fluid removed from her abdomen via pericentesis. She states that over the last few days her pain has worsened and has been "unbearable" since running out of her pain medications. Patient denies any nausea or vomiting, diarrhea or constipation, fevers or chills, chest pain or shortness of breath. Denies dysuria or hematuria. - Related Data Home Medications Medication Instructions Recorded Confirmed Furosemide [Lasix] 40 mg PO BID 09/16/17 11/19/17 Previous Rx's Medication Instructions Recorded Spironolactone [Aldactone] 50 mg PO DAILY #30 tab 09/17/17 HYDROcodone/APAP 10-325MG [[place] 1 tab PO Q6HR PRN 3 Days #12 tab 09/18/17 10-325] Hydrocodone/Acetaminophen [[place] 1 tab PO Q6H PRN 3 Days #12 tab 11/20/17 10-325] Allergies Allergy/AdvReac Type Severity Reaction Status Date / Time No Known Allergies Allergy Verified 11/20/17 02:31 Review of Systems ROS Statement: Those systems with pertinent positive or pertinent negative responses have been documented in the HPI. ROS Other: All systems not noted in ROS Statement are negative. Past Medical History Past Medical History: Cancer, GERD/Reflux, GI Bleed, Hearing Disorder / Deafness , Hypertension, Liver Disease Additional Past Medical History / Comment(s): Hepatitis C, ascities, cirrhosis, pancytopenia, vertigo; "benign abd mass", states has had esophageal banding, lt breast cancer had chemo last on 09-12-16-did not tolerate-completed only 3 cycles- then it was stopped, lt ear hearing loss, multiple upper GI bleeds, peritonitis History of Any Multi-Drug Resistant Organisms: None Reported Past Surgical History: Adenoidectomy, Tonsillectomy Additional Past Surgical History / Comment(s): multiple Paracentesises, EGD, esophageal banding, rt chest mediport 08-06-16, l breast bx. Past Anesthesia/Blood Transfusion Reactions: No Reported Reaction Additional Past Anesthesia/Blood Transfusion Reaction / Comment(s): blood transfusions- no reaction Past Psychological History: Anxiety Smoking Status: Current every day smoker Past Alcohol Use History: None Reported Past Drug Use History: None Reported - Past Family History Mother Family Medical History: Cancer Additional Family Medical History / Comment(s): of lung ca at the age of 59yrs. She was a smoker. Father Family Medical History: Myocardial Infarction ([place]) Additional Family Medical History / Comment(s): from 2nd heart attack at the age of 59yrs. General Exam Limitations: no limitations General appearance: alert, in no apparent distress Head exam: Present: atraumatic, normocephalic, normal inspection Eye exam: Present: normal appearance, PERRL, EOMI ENT exam: Present: normal oropharynx, mucous membranes moist Neck exam: Present: normal inspection, full ROM Respiratory exam: Present: normal lung sounds bilaterally. Absent: respiratory distress, wheezes, rales, rhonchi Cardiovascular Exam: Present: regular rate, normal rhythm, normal heart sounds GI/Abdominal exam: Present: distended, tenderness (RUQ), hypoactive bowel sounds. Absent: guarding, rebound, rigid Extremities exam: Present: normal inspection, full ROM, other (bilateral lower extremity edema-patient states is chronic ) Back exam: Present: normal inspection Neurological exam: Present: alert, oriented X3, CN II-XII intact Psychiatric exam: Present: normal affect, normal mood Skin exam: Present: warm, dry, intact, normal color Course Vital Signs 11/20/17 02:28 Temperature 98.4 F Pulse Rate 87 Respiratory 18 Rate Blood Pressure 115/59 O2 Sat by Pulse 99 Oximetry Medical Decision Making - Medical Decision Making This is a 52-year-old female with history of liver cirrhosis, hepatitis C, ascites and pancytopenia who presents to the emergency department with chief complaint of right upper quadrant abdominal pain. Patient reports running out of her pain medications. She states that for the past few days she has had increasing right upper quadrant abdominal pain that has been "unbearable" without her Hague. She states that she did have 12 L of fluid removed via paracentesis today. Labs were obtained to ensure patient is at baseline. CBC reveals leukopenia at 1.7, hemoglobin at 8.4 and platelet count at 66. CMP revealed hypokalemia at 3.2. Patient given oral supplementation. Albumin low at 2.6, Calcium low at 7.8 and Total Bilirubin high at 1.6. INR is at 1.3. All findings are baseline for patient with no significant changes. She will be provided with a prescription for 3 days worth of Hague 10 as she was scheduled to follow up today with Dr. Estrada but he cancelled and rescheduled for next Thursday. Vitals signs have been stable and she is in no acute distress. She will be discharged home at this time. She is in agreement and voices understanding. All questions answered. - Lab Data Result diagrams: 11/20/17 03:10 11/20/17 03:10 Lab Results 11/20/17 11/20/17 Range/Units 03:10 03:10 WBC 1.7 L* (3.8-10.6) k/uL RBC 2.53 L (3.80-5.40) m/uL Hgb 8.4 L (11.4-16.0) gm/dL Hct 25.5 L (34.0-46.0) % MCV 100.8 H (80.0-100.0) fL MCH 33.1 (25.0-35.0) pg MCHC 32.8 (31.0-37.0) g/dL RDW 15.6 H (11.5-15.5) % Sodium 138 (137-145) mmol/L Potassium 3.2 L (3.5-5.1) mmol/L Chloride 109 H (98-107) mmol/L Carbon Dioxide 26 (22-30) mmol/L Anion Gap 3 mmol/L BUN 10 (7-17) mg/dL Creatinine 0.56 (0.52-1.04) mg/dL Est GFR (CKD-EPI)AfAm >90 (>60 ml/min/1.73 sqM) Est GFR (CKD-EPI)NonAf >90 (>60 ml/min/1.73 sqM) Glucose 109 H (74-99) mg/dL Calcium 7.8 L (8.4-10.2) mg/dL Total Bilirubin 1.6 H (0.2-1.3) mg/dL AST 28 (14-36) U/L ALT 25 (9-52) U/L Alkaline Phosphatase 79 (38-126) U/L Total Protein 5.7 L (6.3-8.2) g/dL Albumin 2.6 L (3.5-5.0) g/dL Amylase <30 L (30-110) U/L Lipase 74 (23-300) U/L Disposition Clinical Impression: Right upper quadrant pain, Chronic abdominal pain, Hypokalemia Disposition: HOME SELF-CARE Condition: Fair Instructions: Chronic Abdominal Pain (ED) Additional Instructions: Please take medications as prescribed. Please follow up with primary care provider within 1-2 days. Return to emergency department if symptoms should worsen or any concerns arise. Prescriptions: Hydrocodone/Acetaminophen [Hague 10-325] 1 tab PO Q6H PRN 3 Days #12 tab PRN Reason: Pain Is patient prescribed a controlled substance at d/c from ED?: Yes When asked, does pt state using other controlled substances?: Yes If prescribed controlled substance>3 days was MAPS reviewed?: Prescribed <3 Days If opioid is for acute pain is fill amount 7 days or less?: Yes If Rx opioid, was Start Talking consent form obtained?: Yes Referrals: Mark Estrada MD [Primary Care Provider] - 1-2 days Time of Disposition: 04:44
[2017-11-20 03:54] LABS: Basophils % (A) 0 %; Eosinophils # (A) 0.1 k/uL (0-0.7); Eosinophils % (A) 4 %; HCT 25.5 % (34.0-46.0); HGB 8.4 gm/dL (11.4-16.0); Lymphocytes # (A) 0.5 k/uL (1.0-4.8); Lymphocytes % (A) 30 %; MCH 33.1 pg (25.0-35.0); MCHC 32.8 g/dL (31.0-37.0); MCV 100.8 fL (80.0-100.0); Macrocytosis Slight; Mean Platelet Volume 9.1; Monocytes # (A) 0.2 k/uL (0-1.0); Monocytes % (A) 11 %; Neutrophils # (A) 0.9 k/uL (1.3-7.7); Neutrophils % (A) 52 %; RBC 2.53 m/uL (3.80-5.40); RDW 15.6 % (11.5-15.5)
[2017-11-20 04:02] LABS: WBC 1.7 k/uL (3.8-10.6)
[2017-11-20 04:04] LABS: ALT 25 U/L (9-52); AST 28 U/L (14-36); Albumin 2.6 g/dL (3.5-5.0); Alkaline Phosphatase 79 U/L (38-126); Amylase <30 U/L (30-110); Anion Gap 3 mmol/L; Blood Urea Nitrogen 10 mg/dL (7-17); Calcium 7.8 mg/dL (8.4-10.2); Carbon Dioxide 26 mmol/L (22-30); Chloride 109 mmol/L (98-107); Glucose 109 mg/dL (74-99); Lipase 74 U/L (23-300); Potassium 3.2 mmol/L (3.5-5.1); Sodium 138 mmol/L (137-145); Total Bilirubin 1.6 mg/dL (0.2-1.3); Total Protein 5.7 g/dL (6.3-8.2)
[2017-11-20] MEDS: POTASSIUM CHLORIDE ER 20 MEQ TAB.ER PO STA ×2 (04:11→04:43)
[2017-11-20] MEDS ORDERED: POTASSIUM BICARBONATE/CIT AC 20 MEQ TABLET.EFF PO ONE (04:17)
[2017-11-20 04:29] LABS: INR 1.3 (<1.2); Partial Thromboplastin Time 26.3 sec (22.0-30.0); Prothrombin Time 12.3 sec (9.0-12.0)
[2017-11-20] MEDS ORDERED: MORPHINE SULFATE 2 MG/ML SYRINGE IVP STA (04:32)
[2017-11-20 04:43] LABS: Platelet Count 66 k/uL (150-450)
[2017-11-20 05:30] VITALS: BP 128/65; PULSE 65; TEMP 98.2
== END 2017-11-20 05:28 | disposition home or self-care (01) ==
LOC: EC 02:25
DX: E87.6 Hypokalemia (principal); R10.11 Right upper quadrant pain; R20.0 Anesthesia of skin; H91.90 Unspecified hearing loss, unspecified ear; F17.200 Nicotine dependence, unspecified, uncomplicated; Z85.3 Personal history of malignant neoplasm of breast; Z86.19 Personal history of other infectious and parasitic diseases; Z87.19 Personal history of other diseases of the digestive system; Z79.899 Other long term (current) drug therapy; Z53.29 Procedure and treatment not carried out because of patient's decision for other reasons
CPT/HCPCS: 36415; 80053; 82150; 83690; 85025; 85610; 85730; 99284; 96374; 96375; 96376; J2270 ×2; J2405

== ENCOUNTER 2017-12-16 12:05 | Day surgery (SDC) | payer MEDICARE, OTHER ==
[2017-12-16 13:07] VITALS: RESP 20; TEMP 98.3
[2017-12-16 13:23] LABS: Mean Platelet Volume 8.3
[2017-12-16 13:24] LABS: INR 1.3 (<1.2); Prothrombin Time 12.3 sec (9.0-12.0)
[2017-12-16 13:26] LABS: Platelet Count 72 k/uL (150-450)
[2017-12-16] MEDS: ALBUMIN HUMAN 25% 50 ML in EMPTY BAG 1 BAG IVPB SCH ×4 (13:44→14:31)
[2017-12-16 14:56] VITALS: BP 103/50; PULSE 100
--- NOTE | 2017-12-16 15:44 | US ---
EXAMINATION TYPE: US paracentesis abd w/image DATE OF EXAM: 12/16/2017 COMPARISON: NONE HISTORY: Ascites. PROCEDURE: Maximal barrier technique was utilized. The skin overlying a suitable pocket of fluid was localized with ultrasound and the overlying skin was prepped and draped. Ultrasound was utilized with sterile technique. Lidocaine was used for local anesthesia and a skin adela made with a scalpel. Catheter was advanced under direct ultrasound guidance into a suitable pocket of fluid and approximately 11.5 lite rs of serous fluid were removed. Catheter was withdrawn and hemostasis achieved. There is no immedi ate complication; the patient is discharged in stable condition. IMPRESSION: STATUS POST ULTRASOUND GUIDED PARACENTESIS FOR PALLIATION OF ASCITES. THIS PROCEDURE WA S PERFORMED BY THE UNDERSIGNED.
== END 2017-12-16 15:25 | disposition home or self-care (01) ==
LOC: RADPROMAIN 12:05
PROVIDERS: ATTEND Family Medicine
DX: K74.60 Unspecified cirrhosis of liver (principal); R18.8 Other ascites
CPT/HCPCS: 49083; 82565; 85049; 85610

== ENCOUNTER 2017-12-23 12:52 | Day surgery (SDC) | payer MEDICARE, OTHER ==
[2017-12-23 13:27] LABS: Mean Platelet Volume 9.4
[2017-12-23 13:32] VITALS: RESP 16; TEMP 98.3
[2017-12-23 13:33] LABS: Platelet Count 61 k/uL (150-450)
[2017-12-23 13:38] LABS: INR 1.2 (<1.2); Prothrombin Time 11.8 sec (9.0-12.0)
[2017-12-23] MEDS: ALBUMIN HUMAN 25% 50 ML in EMPTY BAG 1 BAG IVPB SCH ×4 (14:40→15:18)
[2017-12-23 14:41] VITALS: PULSE 81
[2017-12-23 15:36] VITALS: BP 117/69
--- NOTE | 2017-12-23 16:32 | US ---
EXAMINATION TYPE: US paracentesis abd w/image DATE OF EXAM: 12/23/2017 COMPARISON: NONE HISTORY: Ascites. PROCEDURE: Maximal barrier technique was utilized. The skin overlying a suitable pocket of fluid was localized with ultrasound and the overlying skin was prepped and draped. Ultrasound was utilized with sterile technique. Lidocaine was used for local anesthesia and a skin adela made with a scalpel. Catheter was advanced under direct ultrasound guidance into a suitable pocket of fluid and approximately 9 liters of serous fluid were removed. Catheter was withdrawn and hemostasis achieved. There is no immediate complication; the patient is discharged in stable condition. IMPRESSION: STATUS POST ULTRASOUND GUIDED PARACENTESIS FOR PALLIATION OF ASCITES. THIS PROCEDURE WA S PERFORMED BY THE UNDERSIGNED.
== END 2017-12-23 15:48 | disposition home or self-care (01) ==
LOC: RADPROMAIN 12:52
PROVIDERS: ATTEND Family Medicine
DX: K74.60 Unspecified cirrhosis of liver (principal); R18.8 Other ascites
CPT/HCPCS: 82565; 85049; 85610; 49083; P9047; J1642

== ENCOUNTER 2018-01-06 13:02 | Day surgery (SDC) | payer MEDICARE, OTHER ==
[2018-01-06 13:49] LABS: Mean Platelet Volume 9.2
[2018-01-06 13:55] LABS: Platelet Count 62 k/uL (150-450)
[2018-01-06 13:56] VITALS: TEMP 98
[2018-01-06 13:57] LABS: INR 1.3 (<1.2)
[2018-01-06] MEDS: ALBUMIN HUMAN 25% 50 ML in EMPTY BAG 1 BAG IVPB SCH ×4 (14:05→14:55)
[2018-01-06 14:40] VITALS: BP 108/56; PULSE 80; RESP 16
--- NOTE | 2018-01-06 16:52 | US ---
EXAMINATION TYPE: US paracentesis abd w/image DATE OF EXAM: 01/06/2018 COMPARISON: NONE HISTORY: Ascites. PROCEDURE: Maximal barrier technique was utilized. The skin overlying a suitable pocket of fluid was localized with ultrasound and the overlying skin was prepped and draped. Ultrasound was utilized with sterile technique. Lidocaine was used for local anesthesia and a skin adela made with a scalpel. Catheter was advanced under direct ultrasound guidance into a suitable pocket of fluid and approximately 10 liters of serous fluid were removed. Catheter was withdrawn and hemostasis achieved. There is no immediat e complication; the patient is discharged in stable condition. IMPRESSION: STATUS POST ULTRASOUND GUIDED PARACENTESIS FOR PALLIATION OF ASCITES. THIS PROCEDURE WA S PERFORMED BY THE UNDERSIGNED.
== END 2018-01-06 15:20 | disposition home or self-care (01) ==
LOC: RADPROMAIN 13:02
PROVIDERS: ATTEND Family Medicine
DX: R18.8 Other ascites (principal); K74.60 Unspecified cirrhosis of liver
CPT/HCPCS: 82565; 85049; 85610; 49083; P9047; J1642

== ENCOUNTER 2018-01-13 13:36 | Day surgery (SDC) | payer MEDICARE, OTHER ==
[2018-01-13 14:03] LABS: Mean Platelet Volume 9.7
[2018-01-13 14:07] LABS: INR 1.3 (<1.2)
[2018-01-13 14:11] LABS: Platelet Count 50 k/uL (150-450)
[2018-01-13 14:17] VITALS: BP 113/53; PULSE 64; RESP 16; TEMP 98.4
--- NOTE | 2018-01-13 14:43 | US ---
Therapeutic paracentesis. DATE OF EXAM: 01/13/2018 CLINICAL HISTORY: Ascites The patient had a low platelet count and wished to defer the procedure. IMPRESSION: Deferred paracentesis.
[2018-01-13] MEDS: ALBUMIN HUMAN 25% 50 ML in EMPTY BAG 1 BAG IVPB SCH ×2 (15:16→15:17)
== END 2018-01-13 15:00 | disposition home or self-care (01) ==
LOC: RADPROMAIN 13:36
PROVIDERS: ATTEND Family Medicine
DX: K70.31 Alcoholic cirrhosis of liver with ascites (principal); R79.0 Abnormal level of blood mineral; Z53.8 Procedure and treatment not carried out for other reasons
CPT/HCPCS: 82565; 85049; 85610; 76705; 49083; J1642

== ENCOUNTER 2018-01-17 19:11 | Observation (INO) | payer MEDICARE, OTHER ==
--- NOTE | 2018-01-17 19:49 | ED ---
General Adult HPI - General Chief complaint: GI Bleed Stated complaint: abd pain Time Seen by Provider: 01/17/18 19:29 Source: patient, family, RN notes reviewed, old records reviewed Mode of arrival: ambulatory Limitations: no limitations - History of Present Illness Initial comments: 52-year-old female presents for evaluation of suspected GI bleed. Patient has had intermittent episodes of scant amount of rectal bleeding, however today she developed more significant blood per rectum as well as some dark stools. Patient has significant medical history including liver disease and recurrent ascites. She does receive intermittent paracentesis nearly weekly. She was unable to undergo her last scheduled paracentesis secondary to low platelets. She is not currently on any blood thinners. Denies any worsening abdominal pain. She does have chronic abdominal pain but this is unchanged from baseline. No fever or chills. No vomiting. - Related Data Home Medications Medication Instructions Recorded Confirmed Furosemide [Lasix] 40 mg PO BID 09/16/17 01/06/18 Previous Rx's Medication Instructions Recorded Spironolactone [Aldactone] 50 mg PO DAILY #30 tab 09/17/17 HYDROcodone/APAP 10-325MG [[place] 1 tab PO Q6HR PRN 3 Days #12 tab 09/18/17 10-325] Allergies Allergy/AdvReac Type Severity Reaction Status Date / Time No Known Allergies Allergy Verified 01/17/18 19:26 Review of Systems ROS Statement: Those systems with pertinent positive or pertinent negative responses have been documented in the HPI. ROS Other: All systems not noted in ROS Statement are negative. Past Medical History Past Medical History: Cancer, GERD/Reflux, GI Bleed, Hearing Disorder / Deafness , Hypertension, Liver Disease Additional Past Medical History / Comment(s): Hepatitis C, ascities, cirrhosis, pancytopenia, vertigo; "benign abd mass", states has had esophageal banding, lt breast cancer had chemo last on 09-12-16-did not tolerate-completed only 3 cycles- then it was stopped, lt ear hearing loss, multiple upper GI bleeds, peritonitis History of Any Multi-Drug Resistant Organisms: None Reported Past Surgical History: Adenoidectomy, Tonsillectomy Additional Past Surgical History / Comment(s): multiple Paracentesises, EGD, esophageal banding, rt chest mediport 08-06-16, l breast bx. Past Anesthesia/Blood Transfusion Reactions: No Reported Reaction Additional Past Anesthesia/Blood Transfusion Reaction / Comment(s): blood transfusions- no reaction Past Psychological History: Anxiety Smoking Status: Current every day smoker Past Alcohol Use History: None Reported Past Drug Use History: None Reported - Past Family History Mother Family Medical History: Cancer Additional Family Medical History / Comment(s): of lung ca at the age of 59yrs. She was a smoker. Father Family Medical History: Myocardial Infarction ([place]) Additional Family Medical History / Comment(s): from 2nd heart attack at the age of 59yrs. General Exam Limitations: no limitations General appearance: alert, in no apparent distress Head exam: Present: atraumatic, normocephalic Eye exam: Present: normal appearance, PERRL, EOMI ENT exam: Present: normal exam Neck exam: Present: normal inspection. Absent: tenderness, meningismus Respiratory exam: Present: normal lung sounds bilaterally. Absent: respiratory distress, wheezes, rales Cardiovascular Exam: Present: regular rate, normal rhythm GI/Abdominal exam: Present: soft, distended. Absent: tenderness, guarding, rebound Rectal exam: Present: black stool, bloody stool, hemorrhoids (No bleeding from hemorrhoids) Extremities exam: Present: normal capillary refill Neurological exam: Present: alert, oriented X3, CN II-XII intact. Absent: motor sensory deficit Psychiatric exam: Present: normal affect, normal mood Skin exam: Present: warm, dry, intact. Absent: cyanosis, diaphoretic Course Vital Signs 01/17/18 01/17/18 01/17/18 19:23 19:30 20:00 Temperature 98.2 F Pulse Rate 84 80 116 H Respiratory 18 16 Rate Blood Pressure 129/67 129/67 128/78 O2 Sat by Pulse 98 98 98 Oximetry 01/17/18 01/17/18 01/17/18 20:30 21:00 21:30 Temperature Pulse Rate 80 84 84 Respiratory Rate Blood Pressure 146/88 131/73 133/88 O2 Sat by Pulse 100 99 100 Oximetry Medical Decision Making - Medical Decision Making 52-year-old female presenting with bright red rectal bleeding. Patient has history of hemorrhoids, initially thought she may have been bleeding from a hemorrhoid. She states there was a significant amount of blood. She has had intermittent bleeding over the past several weeks to months. On exam patient has some external hemorrhoids are noted these are bleeding. She has dried blood on exam, no active hemorrhage. Laboratory studies reveal white blood cell count 1.6, hemoglobin 9.1 which is actually improved for this patient. INR 1.3, platelet count is 60, potassium is 3.26 replaced. Given the patient's risk factor she will be kept in observation for repeat hemoglobin testing, as well as GI consultation. - Lab Data Result diagrams: 01/17/18 19:28 01/17/18 19:28 Lab Results 01/17/18 01/17/18 01/17/18 Range/Units 19:28 19:28 19:28 WBC 1.6 L (3.8-10.6) k/uL RBC 2.66 L (3.80-5.40) m/uL Hgb 9.1 L (11.4-16.0) gm/dL Hct 27.9 L (34.0-46.0) % MCV 104.6 H (80.0-100.0) fL MCH 34.2 (25.0-35.0) pg MCHC 32.7 (31.0-37.0) g/dL RDW 15.1 (11.5-15.5) % Plt Count 60 L (150-450) k/uL Neutrophils % 50 % Lymphocytes % 33 % Monocytes % 9 % Eosinophils % 6 % Basophils % 0 % Neutrophils # 0.8 L (1.3-7.7) k/uL Lymphocytes # 0.5 L (1.0-4.8) k/uL Monocytes # 0.1 (0-1.0) k/uL Eosinophils # 0.1 (0-0.7) k/uL Basophils # 0.0 (0-0.2) k/uL Macrocytosis Moderate PT (9.0-12.0) sec INR (<1.2) APTT (22.0-30.0) sec Sodium 139 (137-145) mmol/L Potassium 3.2 L (3.5-5.1) mmol/L Chloride 111 H (98-107) mmol/L Carbon Dioxide 24 (22-30) mmol/L Anion Gap 4 mmol/L BUN 13 (7-17) mg/dL Creatinine 0.61 (0.52-1.04) mg/dL Est GFR (CKD-EPI)AfAm >90 (>60 ml/min/1.73 sqM) Est GFR (CKD-EPI)NonAf >90 (>60 ml/min/1.73 sqM) Glucose 102 H (74-99) mg/dL Calcium 8.2 L (8.4-10.2) mg/dL Magnesium 1.8 (1.6-2.3) mg/dL Total Bilirubin 1.2 (0.2-1.3) mg/dL AST 29 (14-36) U/L ALT 21 (9-52) U/L Alkaline Phosphatase 98 (38-126) U/L Total Creatine Kinase 51 (30-135) U/L CK-MB (CK-2) 0.7 (0.0-2.4) ng/mL CK-MB (CK-2) Rel Index 1.4 Troponin I <0.012 (0.000-0.034) ng/mL Total Protein 5.9 L (6.3-8.2) g/dL Albumin 2.4 L (3.5-5.0) g/dL Blood Type Blood Type Recheck Antibody Screen Spec Expiration Date 01/17/18 01/17/18 Range/Units 19:28 19:28 WBC (3.8-10.6) k/uL RBC (3.80-5.40) m/uL Hgb (11.4-16.0) gm/dL Hct (34.0-46.0) % MCV (80.0-100.0) fL MCH (25.0-35.0) pg MCHC (31.0-37.0) g/dL RDW (11.5-15.5) % Plt Count (150-450) k/uL Neutrophils % % Lymphocytes % % Monocytes % % Eosinophils % % Basophils % % Neutrophils # (1.3-7.7) k/uL Lymphocytes # (1.0-4.8) k/uL Monocytes # (0-1.0) k/uL Eosinophils # (0-0.7) k/uL Basophils # (0-0.2) k/uL Macrocytosis PT 11.9 (9.0-12.0) sec INR 1.3 H (<1.2) APTT 25.7 (22.0-30.0) sec Sodium (137-145) mmol/L Potassium (3.5-5.1) mmol/L Chloride (98-107) mmol/L Carbon Dioxide (22-30) mmol/L Anion Gap mmol/L BUN (7-17) mg/dL Creatinine (0.52-1.04) mg/dL Est GFR (CKD-EPI)AfAm (>60 ml/min/1.73 sqM) Est GFR (CKD-EPI)NonAf (>60 ml/min/1.73 sqM) Glucose (74-99) mg/dL Calcium (8.4-10.2) mg/dL Magnesium (1.6-2.3) mg/dL Total Bilirubin (0.2-1.3) mg/dL AST (14-36) U/L ALT (9-52) U/L Alkaline Phosphatase (38-126) U/L Total Creatine Kinase (30-135) U/L CK-MB (CK-2) (0.0-2.4) ng/mL CK-MB (CK-2) Rel Index Troponin I (0.000-0.034) ng/mL Total Protein (6.3-8.2) g/dL Albumin (3.5-5.0) g/dL Blood Type O Positive Blood Type Recheck No Antibody Screen NEGATIVE Spec Expiration Date 01/20/20182327 Disposition Clinical Impression: GI hemorrhage Disposition: ADMITTED IP TO THIS [facility] Condition: Stable Is patient prescribed a controlled substance at d/c from ED?: No Referrals: Mark Estrada MD [Primary Care Provider] - 1-2 days Time of Disposition: 22:00
[2018-01-17 20:08] LABS: Basophils % (A) 0 %; Eosinophils # (A) 0.1 k/uL (0-0.7); Eosinophils % (A) 6 %; HCT 27.9 % (34.0-46.0); HGB 9.1 gm/dL (11.4-16.0); Lymphocytes # (A) 0.5 k/uL (1.0-4.8); Lymphocytes % (A) 33 %; MCH 34.2 pg (25.0-35.0); MCHC 32.7 g/dL (31.0-37.0); MCV 104.6 fL (80.0-100.0); Macrocytosis Moderate; Mean Platelet Volume 9.1; Monocytes # (A) 0.1 k/uL (0-1.0); Monocytes % (A) 9 %; Neutrophils # (A) 0.8 k/uL (1.3-7.7); Neutrophils % (A) 50 %; RBC 2.66 m/uL (3.80-5.40); RDW 15.1 % (11.5-15.5); WBC 1.6 k/uL (3.8-10.6)
[2018-01-17 20:10] LABS: Platelet Count 60 k/uL (150-450)
[2018-01-17 20:16] LABS: INR 1.3 (<1.2); Partial Thromboplastin Time 25.7 sec (22.0-30.0); Prothrombin Time 11.9 sec (9.0-12.0)
[2018-01-17 20:19] LABS: ALT 21 U/L (9-52); AST 29 U/L (14-36); Albumin 2.4 g/dL (3.5-5.0); Alkaline Phosphatase 98 U/L (38-126); Anion Gap 4 mmol/L; Blood Urea Nitrogen 13 mg/dL (7-17); Calcium 8.2 mg/dL (8.4-10.2); Carbon Dioxide 24 mmol/L (22-30); Chloride 111 mmol/L (98-107); Glucose 102 mg/dL (74-99); Magnesium 1.8 mg/dL (1.6-2.3); Potassium 3.2 mmol/L (3.5-5.1); Sodium 139 mmol/L (137-145); Total Bilirubin 1.2 mg/dL (0.2-1.3); Total Protein 5.9 g/dL (6.3-8.2)
[2018-01-17 20:30] LABS: Creatine Kinase 51 U/L (30-135)
[2018-01-17 20:43] LABS: Creatine Kinase MB 0.7 ng/mL (0.0-2.4); Troponin I <0.012 ng/mL (0.000-0.034)
[2018-01-17] MEDS ORDERED: POTASSIUM CHLORIDE ER 20 MEQ TAB.ER PO STA (21:58)
[2018-01-17] MEDS ORDERED: PANTOPRAZOLE 40 MG/10 ML VIAL IVP STA (21:58)
[2018-01-17] MEDS ORDERED: NALOXONE 0.4 MG/ML 1 ML VIAL IV PRN (22:02)
[2018-01-17] MEDS ORDERED: POTASSIUM BICARBONATE/CIT AC 20 MEQ TABLET.EFF PO STA (22:22)
[2018-01-18 00:27] VITALS: BMI 26.6
[2018-01-18] MEDS: HYDROcodone/APAP 10-325MG 1 EACH TAB PO PRN ×4 (00:37→23:41)
[2018-01-18 07:53] VITALS: RESP 16
[2018-01-18] MEDS ORDERED: SPIRONOLACTONE 25 MG TAB PO SCH (09:00)
[2018-01-18] MEDS: FUROSEMIDE 40 MG TAB PO SCH ×2 (09:53→22:03)
[2018-01-18] MEDS: PANTOPRAZOLE 40 MG/10 ML VIAL IVP SCH ×2 (09:53→22:05)
--- NOTE | 2018-01-18 10:51 | P.CONS ---
History of Present Illness - Reason for Consult Consult date: 01/18/18 rectal bleeding Requesting physician: Mark Estrada - Chief Complaint rectal bleeding - History of Present Illness 52-year-old female well-known to the GI service with a history of liver cirrhosis, esophageal varices, hepatitis C, triple negative breast cancer portal hypertension chronic pancytopenia with chronic ascites presents with reports of rectal bleeding. Patient states she's noticed intermittently over the last 2 days of mixed black colored bowel movements with a tinge of red on tissue when wiping. Mild midepigastric discomfort but denies hematemesis. No fever or chills. White count 1.6. Hemoglobin 9.1. Platelets 60,000. INR 1.3. BUN 13. Creatinine 0.6. No aspirin and NSAIDs or antiplatelet medications. Previous laboratory studies November 2017 white count 1.7. Hemoglobin 8.4. Platelets 66,000. EGD April 2016 well obliterated distal esophageal varices. Prominent antral folds corresponding to the previously described mass with isolated 2 small ulcerations with no bleeding or gastric outlet obstruction. Portal gastropathy. No history of colonoscopy. Last paracentesis 01/06/2018 10 liters removed. Review of Systems Constitutional: Denies fever, chills, sweats, weight gain, or loss. HEENT: Negative for migraines, blurred vision or loss, earaches, drainage, tinnitus, oral mucosal lesions, dysphagia, or odynophagia. CARDIAC: Negative for chest pain, arrhythmias, or palpitation. RESPIRATORY: Negative for shortness of breath, hemoptysis, cough, or sputum production. GI: See HPI for pertinent findings. : Negative for hematuria, urgency, frequency, polyuria, or dysuria. GYNc: Denies possibility of . Negative vaginal discharge. MUSCULOSKELETAL: Negative for muscle aches, swelling, arthritis, and arthralgias. NEUROLOGIC: Negative for stroke or TIA. ENDOCRINE: Negative for thyroid problems. SKIN: Negative for rash or itching. PSYCHIATRIC: Negative history for depression and anxiety Past Medical History Past Medical History: Cancer, GERD/Reflux, GI Bleed, Hearing Disorder / Deafness , Hypertension, Liver Disease Additional Past Medical History / Comment(s): Hepatitis C, ascities, cirrhosis, pancytopenia, vertigo; "benign abd mass", states has had esophageal banding, lt breast cancer had chemo last on 09-12-16-did not tolerate-completed only 3 cycles- then it was stopped, lt ear hearing loss, multiple upper GI bleeds, peritonitis History of Any Multi-Drug Resistant Organisms: None Reported Past Surgical History: Adenoidectomy, Tonsillectomy Additional Past Surgical History / Comment(s): multiple Paracentesises, EGD, esophageal banding, rt chest mediport 08-06-16, l breast bx. Past Anesthesia/Blood Transfusion Reactions: No Reported Reaction Additional Past Anesthesia/Blood Transfusion Reaction / Comm: blood transfusions - no reaction Past Psychological History: Anxiety Additional Psychological History / Comment(s): Has a history of hepatitis C with esophageal variceal bleeds requiring banding several years ago. denies any drug use. No experience. No international travel. No animal exposures. pt's son lives with her.2 story home 1 front step. pt's bathroom and bedroom on 2nd floor so pt now has a hospital bed and bsc on first floor Smoking Status: Current every day smoker Past Alcohol Use History: None Reported Additional Past Alcohol Use History / Comment(s): pt started smoking at age 13 smoked 1/2 ppd but more recently stated only smoking 1-3 cig per day Pt states she has never been a drinker. Past Drug Use History: None Reported - Past Family History Mother Family Medical History: Cancer Additional Family Medical History / Comment(s): of lung ca at the age of 59yrs. She was a smoker. Father Family Medical History: Myocardial Infarction ([place]) Additional Family Medical History / Comment(s): from 2nd heart attack at the age of 59yrs. Medications and Allergies Home Medications Medication Instructions Recorded Confirmed Type Furosemide [Lasix] 40 mg PO BID 09/16/17 01/18/18 History Spironolactone [Aldactone] 50 mg PO DAILY #30 tab 09/17/17 01/18/18 Rx HYDROcodone/APAP 10-325MG [[place] 1 tab PO Q6HR PRN 3 Days #12 tab 09/18/1701/18 Rx 10-325] Omeprazole 20 mg PO BID 01/18/18 01/18/18 History Allergies Allergy/AdvReac Type Severity Reaction Status Date / Time No Known Allergies Allergy Verified 01/18/18 09:35 Physical Exam Vitals: Vital Signs Temp Pulse Pulse Pulse Resp BP BP 01/18/18 07:52 97.4 F L 79 16 118/72 01/18/18 02:04 110/66 01/18/18 01:54 98.3 F 80 18 97/57 01/17/18 21:30 84 133/88 01/17/18 21:00 84 131/73 01/17/18 20:30 80 146/88 01/17/18 20:00 116 H 128/78 01/17/18 19:30 80 16 129/67 01/17/18 19:23 98.2 F 84 18 129/67 Pulse Ox 01/18/18 07:52 94 L 01/18/18 02:04 01/18/18 01:54 97 01/17/18 21:30 100 01/17/18 21:00 99 01/17/18 20:30 100 01/17/18 20:00 98 01/17/18 19:30 98 01/17/18 19:23 98 Intake and Output 01/17/18 01/18/18 01/18/18 22:59 06:59 14:59 Intake Total 240 Balance 240 Intake: Oral 240 Other: # Voids 1 Weight 79.379 kg 79.379 kg General appearance: The patient is alert, oriented, in no acute distress. HET: Head is normocephalic and atraumatic. Pupils are equal and reactive. Oropharynx is clear without lesions. Neck: Supple without lymphadenopathy. Trachea midline. Heart: S1 S2. Regular rate and rhythm. Lungs: No crackles or wheezes are heard. Abdomen: Soft, distended with ascites. No peritoneal signs. Normal bowel sounds. Mild midepigastric tenderness. turgor. Extremities : No cyanosis, rash, ulceration, clubbing, or edema. Radial and pedal pulses are 2/4 bilaterally. Neurological: No focal deficits. Strength and sensation are grossly intact. Results CBC & Chem 7: 01/18/18 11:22 01/18/18 11:22 Labs: Abnormal Lab Results - Last 24 Hours (Table) 01/17/18 01/17/18 01/17/18 Range/Units 19:28 19:28 19:28 WBC 1.6 L (3.8-10.6) k/uL RBC 2.66 L (3.80-5.40) m/uL Hgb 9.1 L (11.4-16.0) gm/dL Hct 27.9 L (34.0-46.0) % MCV 104.6 H (80.0-100.0) fL Plt Count 60 L (150-450) k/uL Neutrophils # 0.8 L (1.3-7.7) k/uL Lymphocytes # 0.5 L (1.0-4.8) k/uL INR 1.3 H (<1.2) Potassium 3.2 L (3.5-5.1) mmol/L Chloride 111 H (98-107) mmol/L Glucose 102 H (74-99) mg/dL Calcium 8.2 L (8.4-10.2) mg/dL Total Protein 5.9 L (6.3-8.2) g/dL Albumin 2.4 L (3.5-5.0) g/dL Assessment and Plan (1) Rectal bleeding Narrative/Plan: 52-year-old female with a history of chronic anemia liver cirrhosis esophageal varices portal hypertension chronic ascites chronic coagulopathy chronic pancytopenia hepatitis C triple negative breast carcinoma presents with GI bleed intermittent rectal bleeding mixed melanotic red bowel movements possible component of acute blood loss. Possible upper GI source however colonic source cannot be excluded. EGD April 2016 no evidence of esophageal varices 2 small gastric ulcers nonbleeding at time of exam. No history of colonoscopy. 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 EGD colonoscopy advised; patient is hesitant. Patient will require paracentesis prior to endoscopic exam will consult IR for paracentesis. Possible endoscopic exams tomorrow if paracentesis can be performed today. Continue, Aldactone 100 mg daily Lasix 40 mg twice daily. 2. Low-salt diet. Protonix 40 mg twice daily. The water hydrant installer has discussed the risks, benefits and alternative therapies for the above-mentioned procedure and for both sedation/analgesia as well as necessary blood product administration, if indicated, as they pertain to this patient. The patient has indicated understanding and acceptance of the risks and procedures discussed. Thank you for this kind referral and the opportunity to participate in the care of your patient. This consultation was discussed with Dr. Joseph. The impression and plan of care have been directed as dictated.
[2018-01-18 12:13] LABS: ALT 21 U/L (9-52); AST 30 U/L (14-36); Albumin 2.5 g/dL (3.5-5.0); Alkaline Phosphatase 88 U/L (38-126); Anion Gap 5 mmol/L; Blood Urea Nitrogen 12 mg/dL (7-17); Calcium 8.2 mg/dL (8.4-10.2); Carbon Dioxide 24 mmol/L (22-30); Chloride 110 mmol/L (98-107); Glucose 92 mg/dL (74-99); Potassium 3.4 mmol/L (3.5-5.1); Sodium 139 mmol/L (137-145); Total Bilirubin 1.8 mg/dL (0.2-1.3); Total Protein 6.2 g/dL (6.3-8.2)
[2018-01-18 12:50] LABS: Basophils % (A) 1 %; Eosinophils # (A) 0.1 k/uL (0-0.7); Eosinophils % (A) 7 %; HCT 28.3 % (34.0-46.0); HGB 9.5 gm/dL (11.4-16.0); Lymphocytes # (A) 0.7 k/uL (1.0-4.8); Lymphocytes % (A) 36 %; MCH 35.2 pg (25.0-35.0); MCHC 33.4 g/dL (31.0-37.0); MCV 105.5 fL (80.0-100.0); Macrocytosis Moderate; Mean Platelet Volume 8.7; Monocytes # (A) 0.2 k/uL (0-1.0); Monocytes % (A) 10 %; Neutrophils # (A) 0.8 k/uL (1.3-7.7); Neutrophils % (A) 44 %; RBC 2.69 m/uL (3.80-5.40); RDW 14.9 % (11.5-15.5); WBC 1.8 k/uL (3.8-10.6)
[2018-01-18 13:00] LABS: Platelet Count 67 k/uL (150-450)
[2018-01-18] MEDS ORDERED: Potassium Replacement Protocol 1 EACH MISC MISCELLANE PRN (16:28)
--- NOTE | 2018-01-18 19:03 | P.HPIM ---
History of Present Illness H&P Date: 01/18/18 Chief Complaint: Suspected GI bleed Mr. Barakat is a 52-year-old female with a past medical history of hepatitis C, liver cirrhosis, sinusitis coming into the hospital stating that she had a episode of bleeding per rectum yesterday. Patient has history of recurrent ascites requiring paracentesis every other week. Patient states that she was not able to go to heart last scheduled paracentesis as her platelet count was low. Patient also has triple negative breast cancer. Patient states that it does bright red blood in her stool and a day before that it was dark in color. Patient denies having any abdominal pain nausea vomiting or diarrhea. Patient is not on any anticoagulants, aspirin or nonsteroidals. Patient had an EGD done in April 2016 showing distal esophageal varices. Patient's last paracentesis was on 01/06/2018 and she had 10 L removed. Patient denies having any chest pain or palpitations. No difficulty in breathing or cough production. She denies having loss of consciousness. No headaches or blurring of vision. Agents hemoglobin has been stable at 9.2 since admission. Patient did not have a bowel movement since being in the hospital. Review of Systems REVIEW OF SYSTEMS: Constitutional - denies having any fevers chills or rigors PSYCH: Normal psychiatric exam NEURO:No c/o weakness of the extremties, No facial droop, No speech abnormalities. VASCULAR: Patient has lower extremity edema HEMATOLOGIC: No history of easy bleeding and bruising . No recent infections . RESPIRATORY: No cough, No SOB, No chest discomfort. IMMUNE: No infections INTEGUMENT: no rashes OPHTHALMOLOGIC: No blurry vision and no eye discharge : No dysuria or hematuria CARDIAC: No chest pain , shortness of breath , paroxysmal nocturnal dyspnea MUSCULOSKELETAL : No Aches or pains in the joints or muscles. GI: As per HPI All 13 review of systems Gen. negative except for the ones mentioned above. Past Medical History Past Medical History: Cancer, GERD/Reflux, GI Bleed, Hearing Disorder / Deafness , Hypertension, Liver Disease Additional Past Medical History / Comment(s): Hepatitis C, ascities, cirrhosis, pancytopenia, vertigo; "benign abd mass", states has had esophageal banding, lt breast cancer had chemo last on 09-12-16-did not tolerate-completed only 3 cycles- then it was stopped, lt ear hearing loss, multiple upper GI bleeds, peritonitis History of Any Multi-Drug Resistant Organisms: None Reported Past Surgical History: Adenoidectomy, Tonsillectomy Additional Past Surgical History / Comment(s): multiple Paracentesises, EGD, esophageal banding, rt chest mediport 17, l breast bx. Past Anesthesia/Blood Transfusion Reactions: No Reported Reaction Additional Past Anesthesia/Blood Transfusion Reaction / Comment(s): blood transfusions- no reaction Past Psychological History: Anxiety Additional Psychological History / Comment(s): Has a history of hepatitis C with esophageal variceal bleeds requiring banding several years ago. denies any drug use. No experience. No international travel. No animal exposures. pt's son lives with her.2 story home 1 front step. pt's bathroom and bedroom on 2nd floor so pt now has a hospital bed and bsc on first floor Smoking Status: Current every day smoker Past Alcohol Use History: None Reported Additional Past Alcohol Use History / Comment(s): pt started smoking at age 13 smoked 1/2 ppd but more recently stated only smoking 1-3 cig per day Pt states she has never been a drinker. Past Drug Use History: None Reported - Past Family History Mother Family Medical History: Cancer Additional Family Medical History / Comment(s): of lung ca at the age of 59yrs. She was a smoker. Father Family Medical History: Myocardial Infarction ([place]) Additional Family Medical History / Comment(s): from 2nd heart attack at the age of 59yrs. Medications and Allergies Home Medications Medication Instructions Recorded Confirmed Type Furosemide [Lasix] 40 mg PO BID 09/16/17 01/18/18 History Spironolactone [Aldactone] 50 mg PO DAILY #30 tab 09/17/17 01/18/18 Rx HYDROcodone/APAP 10-325MG [[place] 1 tab PO Q6HR PRN 3 Days #12 tab 09/18/1701/18 Rx 10-325] Omeprazole 20 mg PO BID 01/18/18 01/18/18 History Allergies Allergy/AdvReac Type Severity Reaction Status Date / Time No Known Allergies Allergy Verified 01/18/18 09:35 Physical Exam Vitals: Vital Signs Temp Pulse Pulse Pulse Resp BP BP 01/18/18 07:52 97.4 F L 79 16 118/72 01/18/18 02:04 110/66 01/18/18 01:54 98.3 F 80 18 97/57 01/17/18 21:30 84 133/88 01/17/18 21:00 84 131/73 01/17/18 20:30 80 146/88 01/17/18 20:00 116 H 128/78 01/17/18 19:30 80 16 129/67 01/17/18 19:23 98.2 F 84 18 129/67 Pulse Ox 01/18/18 07:52 94 L 01/18/18 02:04 01/18/18 01:54 97 01/17/18 21:30 100 01/17/18 21:00 99 01/17/18 20:30 100 01/17/18 20:00 98 01/17/18 19:30 98 01/17/18 19:23 98 Intake and Output 01/18/18 01/18/18 01/18/18 06:59 14:59 22:59 Intake Total 240 Balance 240 Intake: Oral 240 Other: # Voids 1 Weight 79.379 kg GENERAL EXAM GEN. APPEARANCE: Thin and cachectic HEAD EXAM: atraumatic, normocephalic, normal inspection EYE EXAM: Mild pallor, mild icterus NECK EXAM: normal inspection. Absent: tenderness, meningismus, full ROM, lymphadenopathy RESPIRATORY EXAM: Bilateral breath sounds diminished at the lower lung bases. Coarse breath sounds in all lung barrera. CARDIOVASCULAR EXAM: S1-S2 heard. No additional sounds. GI/ABDOMINAL EXAM: Abdomen is distended, soft. Tenderness positive in all quadrants. Normal bowel sounds. EXTREMITIES EXAM: Bilateral pitting edema. NEUROLOGICAL EXAM: alert, oriented X3, no focal neurological deficits SKIN EXAM: Extremely dry scaling Results CBC & Chem 7: 01/18/18 11:22 01/18/18 11:22 Labs: Abnormal Lab Results - Last 24 Hours (Table) 01/17/18 01/17/18 01/17/18 Range/Units 19:28 19:28 19:28 WBC 1.6 L (3.8-10.6) k/uL RBC 2.66 L (3.80-5.40) m/uL Hgb 9.1 L (11.4-16.0) gm/dL Hct 27.9 L (34.0-46.0) % MCV 104.6 H (80.0-100.0) fL MCH (25.0-35.0) pg Plt Count 60 L (150-450) k/uL Neutrophils # 0.8 L (1.3-7.7) k/uL Lymphocytes # 0.5 L (1.0-4.8) k/uL INR 1.3 H (<1.2) Potassium 3.2 L (3.5-5.1) mmol/L Chloride 111 H (98-107) mmol/L Glucose 102 H (74-99) mg/dL Calcium 8.2 L (8.4-10.2) mg/dL Total Bilirubin (0.2-1.3) mg/dL Total Protein 5.9 L (6.3-8.2) g/dL Albumin 2.4 L (3.5-5.0) g/dL 01/18/18 01/18/18 Range/Units 11:22 11:22 WBC 1.8 L (3.8-10.6) k/uL RBC 2.69 L (3.80-5.40) m/uL Hgb 9.5 L (11.4-16.0) gm/dL Hct 28.3 L (34.0-46.0) % MCV 105.5 H (80.0-100.0) fL MCH 35.2 H (25.0-35.0) pg Plt Count 67 L (150-450) k/uL Neutrophils # 0.8 L (1.3-7.7) k/uL Lymphocytes # 0.7 L (1.0-4.8) k/uL INR (<1.2) Potassium 3.4 L (3.5-5.1) mmol/L Chloride 110 H (98-107) mmol/L Glucose (74-99) mg/dL Calcium 8.2 L (8.4-10.2) mg/dL Total Bilirubin 1.8 H (0.2-1.3) mg/dL Total Protein 6.2 L (6.3-8.2) g/dL Albumin 2.5 L (3.5-5.0) g/dL Thrombosis Risk Factor Assmnt - Choose All That Apply Any of the Below Risk Factors Present?: Yes Each Factor Represents 1 point: Age 41-60 years, Obesity (BMI >25) Other Risk Factors: No Other congenital or acquired thrombophilia - If yes, enter type in comment: No Thrombosis Risk Factor Assessment Total Risk Factor Score: 2 Thrombosis Risk Factor Assessment Level: Low Risk Assessment and Plan Assessment: ASSESSMENT Rectal bleeding Chronic anemia Cirrhosis of the liver secondary to hepatitis C Ascites requiring frequent paracentesis Thrombocytopenia due to chronic liver disease Portal hypertension Leukopenia Hypokalemia Severe protein calorie malnutrition Plan; patient has been admitted for rectal bleeding. Hemoglobin has been stable around 9. She did not require any blood transfusion. As the patient has massive ascites - consulted IR for paracentesis. No heparin due to thrombocytopenia. Patient has been restarted on Lasix and atenolol. Continue with PPI. All through the conversation the patient has been talking about is getting Dilaudid or morphine for her pain. She is refusing [place] or Tylenol. GI has been consulted for possible endoscopy/colonoscopy being scheduled by them. Overall prognosis is poor. Further recommendations to follow depending on the progress of the patient.
[2018-01-18] MEDS: POTASSIUM CHLORIDE ER 20 MEQ TAB.ER PO SCH ×2 (22:04→23:41)
[2018-01-19] MEDS: FUROSEMIDE 40 MG TAB PO SCH (08:07)
[2018-01-19] MEDS: HYDROcodone/APAP 10-325MG 1 EACH TAB PO PRN ×3 (08:16→18:28)
[2018-01-19] MEDS: PANTOPRAZOLE 40 MG/10 ML VIAL IVP SCH (08:17)
[2018-01-19] MEDS ORDERED: SPIRONOLACTONE 25 MG TAB PO SCH (09:00)
--- NOTE | 2018-01-19 09:31 | P.PN ---
Subjective Progress Note Date: 01/19/18 Principal diagnosis: rectal bleeding DEnies rectal bleeding. Paracentesis scheduled today. Patient refusing endoscopic exams.CBC pending. Objective - Vital Signs Vital signs: Vital Signs Temp 98.8 F 01/19/18 07:35 Pulse 81 01/19/18 07:35 Resp 16 01/19/18 07:36 BP 102/56 01/19/18 07:35 Pulse Ox 93 L 01/19/18 07:35 Intake & Output 01/18/18 01/19/18 01/19/18 18:59 06:59 18:59 Intake Total 1360 Balance 1360 Intake: Oral 1360 Other: Voiding Method Toilet Toilet # Voids 2 1 - Constitutional General appearance: Present: no acute distress - EENT Eyes: Present: normal appearance ENT: Present: normal oropharynx Ears: bilateral: normal - Neck Neck: Present: normal ROM - Respiratory Respiratory: bilateral: CTA - Cardiovascular Rhythm: regular Heart sounds: normal: S1, S2 - Gastrointestinal Gastrointestinal Comment(s): moderate ascites no peritoneal signs General gastrointestinal: Present: distended - Integumentary Integumentary: Present: normal turgor - Neurologic Neurologic: Present: CNII-XII intact - Psychiatric Psychiatric: Present: A&O x's 3, appropriate affect - Labs CBC & Chem 7: 01/18/18 11:22 01/18/18 11:22 Labs: Abnormal Lab Results - Last 24 Hours (Table) 01/18/18 01/18/18 Range/Units 11:22 11:22 WBC 1.8 L (3.8-10.6) k/uL RBC 2.69 L (3.80-5.40) m/uL Hgb 9.5 L (11.4-16.0) gm/dL Hct 28.3 L (34.0-46.0) % MCV 105.5 H (80.0-100.0) fL MCH 35.2 H (25.0-35.0) pg Plt Count 67 L (150-450) k/uL Neutrophils # 0.8 L (1.3-7.7) k/uL Lymphocytes # 0.7 L (1.0-4.8) k/uL Potassium 3.4 L (3.5-5.1) mmol/L Chloride 110 H (98-107) mmol/L Calcium 8.2 L (8.4-10.2) mg/dL Total Bilirubin 1.8 H (0.2-1.3) mg/dL Total Protein 6.2 L (6.3-8.2) g/dL Albumin 2.5 L (3.5-5.0) g/dL Assessment and Plan (1) Rectal bleeding Narrative/Plan: 52-year-old female with a history of chronic anemia liver cirrhosis esophageal varices portal hypertension chronic ascites chronic coagulopathy chronic pancytopenia hepatitis C triple negative breast carcinoma presents with GI bleed intermittent rectal bleeding mixed melanotic red bowel movements possible component of acute blood loss. Possible upper GI source however colonic source cannot be excluded. EGD April 2016 no evidence of esophageal varices 2 small gastric ulcers nonbleeding at time of exam. No history of colonoscopy. 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 EGD colonoscopy advised; patient declined. Paracentesis today. DC per medicine. Will follow as needed. Continue, Aldactone 100 mg daily Lasix 40 mg twice daily. 2. Low-salt diet. Protonix 40 mg daily. Assessment and plan of care discussed with Dr. Joseph
[2018-01-19 09:48] LABS: Basophils % (A) 0 %; Eosinophils # (A) 0.1 k/uL (0-0.7); Eosinophils % (A) 4 %; HCT 27.2 % (34.0-46.0); HGB 8.9 gm/dL (11.4-16.0); Lymphocytes # (A) 0.6 k/uL (1.0-4.8); Lymphocytes % (A) 28 %; MCH 34.9 pg (25.0-35.0); MCHC 32.7 g/dL (31.0-37.0); MCV 106.7 fL (80.0-100.0); Macrocytosis Moderate; Mean Platelet Volume 8.8; Monocytes # (A) 0.2 k/uL (0-1.0); Monocytes % (A) 9 %; Neutrophils # (A) 1.1 k/uL (1.3-7.7); Neutrophils % (A) 54 %; RBC 2.55 m/uL (3.80-5.40); RDW 14.9 % (11.5-15.5); WBC 2.1 k/uL (3.8-10.6)
[2018-01-19 09:50] LABS: Platelet Count 54 k/uL (150-450)
[2018-01-19 13:58] VITALS: TEMP 97.7
[2018-01-19] MEDS ORDERED: HYDROmorphone 1 MG/ML 1 ML SYRINGE IVP STA (14:56)
[2018-01-19 15:05] VITALS: BP 124/60; PULSE 76
--- NOTE | 2018-01-19 15:07 | US ---
Therapeutic paracentesis. DATE OF EXAM: 01/19/2018 CLINICAL HISTORY: Ascites The procedure was discussed with the patient. The risks, complications, benefits, and alternatives we re discussed and any questions were answered. Informed consent was obtained. The patient was placed s upine on the ultrasound table and prepped and draped in the usual sterile fashion. All elements of maximal barrier technique were utilized. Under ultrasound guidance, access into the left lower quadrant was obtained, via the paracentesis catheter system and direct ultrasound guidance . Approximately 13.15 liters of straw-colored fluid was removed. The patient was stable throughout the procedure and remained stable upon discharge from Department of Radiology. IMPRESSION: Successful therapeutic paracentesis under ultrasound guidance.
[2018-01-19] MEDS: ALBUMIN HUMAN 25% 50 ML in EMPTY BAG 1 BAG IVPB SCH ×5 (16:23→19:49)
[2018-01-19] MEDS ORDERED: ALPRAZolam 0.5 MG TAB PO STA (20:39)
[2018-01-19] MEDS ORDERED: NICOTINE 21MG/24HR PATCH TRANSDERM SCH (20:45)
--- NOTE | 2018-01-19 21:55 | P.PN ---
Subjective Progress Note Date: 01/19/18 Principal diagnosis: Ascites and GI bleed Ms. Barakat is a 52-year-old female with a past medical history of hepatitis C, liver cirrhosis, sinusitis coming into the hospital stating that she had a episode of bleeding per rectum yesterday. Patient has history of recurrent ascites requiring paracentesis every other week. Patient states that she was not able to go to heart last scheduled paracentesis as her platelet count was low. Patient also has history triple negative breast cancer. Patient states that it does bright red blood in her stool and a day before that it was dark in color. Patient denies having any abdominal pain nausea vomiting or diarrhea. Patient is not on any anticoagulants, aspirin or nonsteroidals. Patient had an EGD done in April 2016 showing distal esophageal varices. Patient's last paracentesis was on 01/06/2018 and she had 10 L removed. On 01/19/18 - Today the pt is lying in bed and she is scheduled for paracentesis. Patient denies having any chest pain or palpitations. No difficulty in breathing or cough production. She denies having loss of consciousness. No headaches or blurring of vision. Hemoglobin has been stable around 9 since admission. Pt denies having any blood or dark colored stool. Objective - Vital Signs Vital signs: Vital Signs Temp 97.7 F 01/19/18 13:56 Pulse 76 01/19/18 15:04 Resp 16 01/19/18 15:04 BP 124/60 01/19/18 15:04 Pulse Ox 97 01/19/18 15:04 Intake & Output 01/18/18 01/19/18 01/19/18 18:59 06:59 18:59 Intake Total 1360 240 Balance 1360 240 Intake: Oral 1360 240 Other: Voiding Method Toilet Toilet # Voids 2 1 - Exam GEN. APPEARANCE: Thin and cachectic HEAD EXAM: atraumatic, normocephalic, normal inspection EYE EXAM: Mild pallor, mild icterus NECK EXAM: normal inspection. Absent: tenderness, meningismus, full ROM, lymphadenopathy RESPIRATORY EXAM: Bilateral breath sounds diminished at the lower lung bases. Coarse breath sounds in all lung barrera. CARDIOVASCULAR EXAM: S1-S2 heard. No additional sounds. GI/ABDOMINAL EXAM: Abdomen is distended, soft. Tenderness positive in all quadrants. Normal bowel sounds. EXTREMITIES EXAM: Bilateral pitting edema. NEUROLOGICAL EXAM: alert, oriented X3, no focal neurological deficits SKIN EXAM: Extremely dry scaling - Labs CBC & Chem 7: 01/19/18 09:12 01/18/18 11:22 Labs: Abnormal Lab Results - Last 24 Hours (Table) 01/19/18 Range/Units 09:12 WBC 2.1 L (3.8-10.6) k/uL RBC 2.55 L (3.80-5.40) m/uL Hgb 8.9 L (11.4-16.0) gm/dL Hct 27.2 L (34.0-46.0) % MCV 106.7 H (80.0-100.0) fL Plt Count 54 L (150-450) k/uL Neutrophils # 1.1 L (1.3-7.7) k/uL Lymphocytes # 0.6 L (1.0-4.8) k/uL Assessment and Plan Assessment: ASSESSMENT Rectal bleeding - Hb has been stable around 9 Chronic anemia Cirrhosis of the liver secondary to hepatitis C Ascites requiring frequent paracentesis Thrombocytopenia due to chronic liver disease Portal hypertension Leukopenia Hypokalemia Severe protein calorie malnutrition Plan; patient has been admitted for rectal bleeding but did not report any blood since admission . Hemoglobin has been stable around 9. She did not require any blood transfusion. As the patient has massive ascites - consulted IR for paracentesis- that she will be getting today . No heparin due to thrombocytopenia. Patient has been restarted on Lasix and atenolol. GI has been consulted for possible endoscopy/colonoscopy - but pt refusing the procedures. Overall prognosis is poor. Further recommendations based on the clinical course.
[2018-01-20] MEDS ORDERED: PANTOPRAZOLE 40 MG TABLET PO SCH (09:00)
== END 2018-01-19 21:22 ==
LOC: EC 19:11 → UNDOADMOB 22:02 → 4SSUR 22:02
PROVIDERS: ADMIT Family Medicine; ATTEND Family Medicine
DX: K62.5 Hemorrhage of anus and rectum (principal); D64.9 Anemia, unspecified; K74.60 Unspecified cirrhosis of liver; B19.20 Unspecified viral hepatitis C without hepatic coma; R18.8 Other ascites; D69.59 Other secondary thrombocytopenia; D61.818 Other pancytopenia; K76.6 Portal hypertension; D72.819 Decreased white blood cell count, unspecified; E87.6 Hypokalemia; E43 Unspecified severe protein-calorie malnutrition; Z68.26 Body mass index [BMI] 26.0-26.9, adult; I10 Essential (primary) hypertension; K64.4 Residual hemorrhoidal skin tags; E66.9 Obesity, unspecified; R42 Dizziness and giddiness; C50.912 Malignant neoplasm of unspecified site of left female breast; Z17.1 Estrogen receptor negative status [ER-]; G89.29 Other chronic pain; F17.210 Nicotine dependence, cigarettes, uncomplicated; K31.89 Other diseases of stomach and duodenum; F41.9 Anxiety disorder, unspecified; K21.9 Gastro-esophageal reflux disease without esophagitis; H91.92 Unspecified hearing loss, left ear; Z79.899 Other long term (current) drug therapy; Z92.21 Personal history of antineoplastic chemotherapy; Z80.1 Family history of malignant neoplasm of trachea, bronchus and lung; Z82.49 Family history of ischemic heart disease and other diseases of the circulatory system
CPT/HCPCS: 99285; 96375 ×3; 96376 ×2; 96365; 96366; 36415; 86900; 86901; 80053 ×2; 82140; 82550; 82553; 83735; 84484; 85025 ×3; 85610; 85730; 86850; 49083; G0378 ×3; P9047; J1170; C9113 ×3

== ENCOUNTER → 2018-02-10 | Day surgery (SDC) | payer MEDICARE, OTHER ==
[2018-02-10 13:05] VITALS: RESP 16; TEMP 98.1
[2018-02-10 13:11] LABS: Mean Platelet Volume 9.1
[2018-02-10 13:17] LABS: Platelet Count 63 k/uL (150-450)
[2018-02-10 13:23] LABS: INR 1.3 (<1.2); Prothrombin Time 11.9 sec (9.0-12.0)
[2018-02-10] MEDS: ALBUMIN HUMAN 25% 50 ML in EMPTY BAG 1 BAG IVPB SCH ×4 (14:06→14:49)
[2018-02-10 14:46] VITALS: BP 104/59; PULSE 72
--- NOTE | 2018-02-11 09:07 | US ---
Therapeutic paracentesis. DATE OF EXAM: 02/10/2018 CLINICAL HISTORY: Ascites The procedure was discussed with the patient. The risks, complications, benefits, and alternatives we re discussed and any questions were answered. Informed consent was obtained. The patient was placed s upine on the ultrasound table and prepped and draped in the usual sterile fashion. All elements of maximal barrier technique were utilized. Under ultrasound guidance, access into the left lower quadrant was obtained, via the paracentesis catheter system and direct ultrasound guidance . Approximately 11.2 liters of straw-colored fluid was removed. The patient was stable throughout the p rocedure and remained stable upon discharge from Department of Radiology. IMPRESSION: Successful therapeutic paracentesis under ultrasound guidance.
== END | disposition home or self-care (01) ==
LOC: RADPROMAIN 12:30
PROVIDERS: ATTEND Family Medicine
DX: K70.31 Alcoholic cirrhosis of liver with ascites (principal)
CPT/HCPCS: 82565; 85049; 85610; 49083; P9047; J1642

== ENCOUNTER 2018-03-01 12:03 | Emergency (ER) | payer MEDICARE, OTHER ==
[2018-03-01 12:17] VITALS: BP 130/82; PULSE 89; RESP 18; TEMP 97.9
[2018-03-01] MEDS ORDERED: HYDROmorphone 1 MG/ML 1 ML SYRINGE IM STA (12:34)
[2018-03-01] MEDS ORDERED: ONDANSETRON ODT 4 MG TAB PO STA (12:34)
--- NOTE | 2018-03-01 12:41 | ED ---
General Adult HPI - General Chief complaint: Abdominal Pain Stated complaint: abdominal pain Time Seen by Provider: 03/01/18 12:12 Source: patient, RN notes reviewed, old records reviewed Mode of arrival: ambulatory Limitations: no limitations - History of Present Illness Initial comments: Patient is a 52-year-old female with a significant past medical history for hepatitis, liver cirrhosis, abdominal ascites, presenting to the emergency room today with chief complaint of abdominal pain. Patient states that she's run out of her pain medicine at home. She states she was supposed to get a new prescription on February 20. She states she ran out just 2 days ago, she had some extra. Patient states that today she is scheduled for a paracentesis. She states she does go every 2 weeks to have fluid drained. Patient states that she was having increased pain today and did not have any [place] to take. She does have appointment scheduled in approximately a half an hour from now. She was hoping to get something for pain and high to make her appointment. Patient denies any other complaints. She states the pain that she's been experiencing his chronic pain that she's had with these symptoms. She denies any fever, chills, chest pain, nausea or vomiting. - Related Data Previous Rx's Medication Instructions Recorded HYDROcodone/APAP 10-325MG [[place] 1 tab PO Q6HR PRN 3 Days #12 tab 09/18/17 10-325] Allergies Allergy/AdvReac Type Severity Reaction Status Date / Time No Known Allergies Allergy Verified 03/01/18 12:21 Review of Systems ROS Statement: Those systems with pertinent positive or pertinent negative responses have been documented in the HPI. ROS Other: All systems not noted in ROS Statement are negative. Past Medical History Past Medical History: Cancer, GERD/Reflux, GI Bleed, Hearing Disorder / Deafness , Hypertension, Liver Disease Additional Past Medical History / Comment(s): Hepatitis C, ascities, cirrhosis, pancytopenia, vertigo; "benign abd mass", states has had esophageal banding, lt breast cancer had chemo last on 09-12-16-did not tolerate-completed only 3 cycles- then it was stopped, lt ear hearing loss, multiple upper GI bleeds, peritonitis History of Any Multi-Drug Resistant Organisms: None Reported Past Surgical History: Adenoidectomy, Tonsillectomy Additional Past Surgical History / Comment(s): multiple Paracentesises, EGD, esophageal banding, rt chest mediport 08-06-16, l breast bx. Past Anesthesia/Blood Transfusion Reactions: No Reported Reaction Additional Past Anesthesia/Blood Transfusion Reaction / Comment(s): blood transfusions- no reaction Past Psychological History: Anxiety Smoking Status: Current every day smoker Past Alcohol Use History: None Reported Past Drug Use History: None Reported - Past Family History Mother Family Medical History: Cancer Additional Family Medical History / Comment(s): of lung ca at the age of 59yrs. She was a smoker. Father Family Medical History: Myocardial Infarction ([place]) Additional Family Medical History / Comment(s): from 2nd heart attack at the age of 59yrs. General Exam - General Exam Comments Initial Comments: General: The patient is awake and alert, in no distress Eye: There is normal conjunctiva bilaterally. No signs of icterus. Ears, nose, mouth and throat: There are moist mucous membranes and no oral lesions. Neck: The neck is supple, there is no tenderness or JVD. Cardiovascular: There is a regular rate and rhythm. No murmur, rub or gallop is appreciated. Respiratory: Lungs are clear to auscultation, respirations are non-labored, breath sounds are equal. No wheezes, stridor, rales, or rhonchi. Gastrointestinal: Patient abdomen large firm on palpation. No rebound. Musculoskeletal: Normal ROM, no tenderness. Strength 5/5. Sensation intact. Pulses equal bilaterally 2+. Neurological: A&O x 3. CN II-XII intact, There are no obvious motor or sensory deficits. Coordination appears grossly intact. Speech is normal. Skin: Skin is warm and dry and no rashes or lesions are noted. Psychiatric: Cooperative, appropriate mood & affect, normal judgment. Limitations: no limitations Course Vital Signs 03/01/18 12:14 Temperature 97.9 F Pulse Rate 89 Respiratory 18 Rate Blood Pressure 130/82 O2 Sat by Pulse 97 Oximetry Medical Decision Making - Medical Decision Making Patient has history of abdominal ascites. Is scheduled for paracentesis today at 1:00. She came here to the emergency room for pain management. She is currently out of her [place] is waiting for a prescription from her family physician. Patient states that she is experiencing abdominal pain which consistent with symptoms that she's had in the past. She states there is nothing new or different today. She states she just felt she could not take the pain any longer so she came here to the emergency room. Case discussed with attending physician Dr. Byrne. We will give patient a shot of pain medication here in the emergency room and discharge her to allow her to make her appointment. Advised return for any other concerns. Patient states understanding and is agreement with this. Disposition Clinical Impression: Ascites, Abdominal pain Disposition: HOME SELF-CARE Condition: Stable Instructions: Abdominal Pain (ED) Additional Instructions: Please proceed to your appointment for paracentesis. Please return to emergency room for any other concerns. Is patient prescribed a controlled substance at d/c from ED?: No Referrals: Mark Estrada MD [Primary Care Provider] - 1-2 days Time of Disposition: 12:44
== END 2018-03-01 13:07 | disposition home or self-care (01) ==
LOC: EC 12:03
DX: R18.8 Other ascites (principal); R10.9 Unspecified abdominal pain; H91.92 Unspecified hearing loss, left ear; F17.200 Nicotine dependence, unspecified, uncomplicated; Z85.3 Personal history of malignant neoplasm of breast; Z86.19 Personal history of other infectious and parasitic diseases
CPT/HCPCS: 99284; 96372; J1170

== ENCOUNTER 2018-03-01 13:08 | Day surgery (SDC) | payer MEDICARE, OTHER ==
[2018-03-01 13:57] VITALS: RESP 16
[2018-03-01 14:03] LABS: INR 1.2 (<1.2); Prothrombin Time 11.8 sec (9.0-12.0)
[2018-03-01 14:15] LABS: HCT 27.3 % (34.0-46.0); HGB 9.2 gm/dL (11.4-16.0); Hypochromasia Slight; MCH 35.5 pg (25.0-35.0); MCHC 33.6 g/dL (31.0-37.0); MCV 105.6 fL (80.0-100.0); Macrocytosis Moderate; Mean Platelet Volume 10.2; RBC 2.59 m/uL (3.80-5.40); RDW 14.7 % (11.5-15.5); WBC 2.1 k/uL (3.8-10.6)
[2018-03-01 14:16] LABS: Platelet Count 48 k/uL (150-450)
[2018-03-01] MEDS: ALBUMIN HUMAN 25% 50 ML in EMPTY BAG 1 BAG IVPB SCH ×4 (15:29→16:02)
[2018-03-01 15:43] VITALS: TEMP 97.6
[2018-03-01 16:35] VITALS: BP 105/62; PULSE 88
--- NOTE | 2018-03-02 09:08 | US ---
Therapeutic paracentesis. DATE OF EXAM: 03/01/2018 CLINICAL HISTORY: Ascites The procedure was discussed with the patient. The risks, complications, benefits, and alternatives we re discussed and any questions were answered. Informed consent was obtained. The patient was placed s upine on the ultrasound table and prepped and draped in the usual sterile fashion. All elements of maximal barrier technique were utilized. Under ultrasound guidance, access into the left lower quadrant was obtained, via the paracentesis catheter system and direct ultrasound guidance . Approximately 11.3 liters of straw-colored fluid was removed. The patient was stable throughout the p rocedure and remained stable upon discharge from Department of Radiology. IMPRESSION: Successful therapeutic paracentesis under ultrasound guidance.
== END 2018-03-01 16:46 | disposition home or self-care (01) ==
LOC: RADPROMAIN 13:08
PROVIDERS: ATTEND Family Medicine
DX: K70.31 Alcoholic cirrhosis of liver with ascites (principal)
CPT/HCPCS: 96372; 99281; 99284; 82565; 85027; 85610; 49083; P9035; P9047; J1170; J1642

== ENCOUNTER 2018-03-01 16:55 | Emergency (ER) | payer MEDICARE, OTHER ==
[2018-03-01 17:07] VITALS: RESP 18
[2018-03-01] MEDS ORDERED: HYDROmorphone 1 MG/ML 1 ML SYRINGE IVP STA (18:08)
[2018-03-01] MEDS ORDERED: HYDROcodone/APAP 10-325MG 1 EACH TAB PO ONE (18:21)
[2018-03-01] MEDS ORDERED: HYDROmorphone 1 MG/ML 1 ML SYRINGE IM STA (18:22)
--- NOTE | 2018-03-01 18:39 | ED ---
Recheck HPI - General Chief Complaint: Recheck/Abnormal Lab/Rx Stated Complaint: Wants pain medicine Time Seen by Provider: 03/01/18 18:06 Source: patient Mode of arrival: wheelchair Limitations: no limitations - History of Present Illness Initial Comments: 52 yo female with multiple comorbidities including hepatitis C, cirrhosis of the liver and ascites present today for medication refill. Patient was seen here earlier today for abdominal pain, she stated she was due for her paracentesis. Patient went to his paracentesis appointment and was requesting pain medication because she is out of her [place] for chronic pain. They stated she would need to be seen at the emergency department or primary care provider for medication refill. Patient denies any new symptomology today, she states significant improvement abdominal pain since paracentesis. Patient denies any recent fever, chills, shortness of breath, chest pain, back pain, abdominal pain , nausea or vomiting, numbness or tingling, dysuria or hematuria, constipation or diarrhea, headaches or visual changes, or any other complaints. Upon arrival VS within acceptable limits. - Related Data Previous Rx's Medication Instructions Recorded HYDROcodone/APAP 10-325MG [[place] 1 tab PO Q6HR PRN 3 Days #12 tab 09/18/17 10-325] HYDROcodone/APAP 7.5-325MG [[place] 1 tab PO Q6HR PRN 3 Days #12 tab 03/01/18 7.5-325] Allergies Allergy/AdvReac Type Severity Reaction Status Date / Time No Known Allergies Allergy Verified 03/01/18 17:07 Review of Systems ROS Statement: Those systems with pertinent positive or pertinent negative responses have been documented in the HPI. ROS Other: All systems not noted in ROS Statement are negative. Constitutional: Denies: fever, chills, night sweats ENT: Denies: ear pain, throat pain Respiratory: Denies: cough, dyspnea, wheezes, hemoptysis, stridor Cardiovascular: Denies: chest pain, palpitations Endocrine: Denies: fatigue Gastrointestinal: Reports: abdominal pain (chronic nothing new this afternoon). Denies: nausea, vomiting, diarrhea, constipation, hematemesis, melena, hematochezia Genitourinary: Denies: urgency, dysuria, frequency Musculoskeletal: Denies: back pain Skin: Denies: rash, lesions Past Medical History Past Medical History: Cancer, GERD/Reflux, GI Bleed, Hearing Disorder / Deafness , Hypertension, Liver Disease Additional Past Medical History / Comment(s): Hepatitis C, ascities, cirrhosis, pancytopenia, vertigo; "benign abd mass", states has had esophageal banding, lt breast cancer had chemo last on 09-12-16-did not tolerate-completed only 3 cycles- then it was stopped, lt ear hearing loss, multiple upper GI bleeds, peritonitis History of Any Multi-Drug Resistant Organisms: None Reported Past Surgical History: Adenoidectomy, Tonsillectomy Additional Past Surgical History / Comment(s): multiple Paracentesises, EGD, esophageal banding, rt chest mediport 08-06-16, l breast bx. Past Anesthesia/Blood Transfusion Reactions: No Reported Reaction Additional Past Anesthesia/Blood Transfusion Reaction / Comment(s): blood transfusions- no reaction Past Psychological History: Anxiety Smoking Status: Current every day smoker Past Alcohol Use History: None Reported Past Drug Use History: None Reported - Past Family History Mother Family Medical History: Cancer Additional Family Medical History / Comment(s): of lung ca at the age of 59yrs. She was a smoker. Father Family Medical History: Myocardial Infarction ([place]) Additional Family Medical History / Comment(s): from 2nd heart attack at the age of 59yrs. General Exam - General Exam Comments Initial Comments: General: The patient is awake and alert, in no distress. Jaundice. Eye: Pupils are equal, round and reactive to light, extra-ocular movements are intact. No nystagmus. There is normal conjunctiva bilaterally. No signs of icterus. Ears, nose, mouth and throat: There are moist mucous membranes and no oral lesions. Neck: The neck is supple, there is no tenderness or JVD. Cardiovascular: There is a regular rate and rhythm. No murmur, rub or gallop is appreciated. Respiratory: Lungs are clear to auscultation, respirations are non-labored, breath sounds are equal. No wheezes, stridor, rales, or rhonchi. Gastrointestinal: Soft, non-distended, non-tender abdomen without masses or organomegaly noted. There is no rebound or guarding present. No CVA tenderness. Bowel sounds are unremarkable. Musculoskeletal: Normal ROM, no tenderness. Strength 5/5. Sensation intact. Radial pulses equal bilaterally 2+. Neurological: A&O x 3. CN II-XII intact, There are no obvious motor or sensory deficits. Coordination appears grossly intact. Speech is normal. Skin: Skin is warm and dry and no rashes or lesions are noted. Psychiatric: Cooperative, appropriate mood & affect, normal judgment. Limitations: no limitations Course Vital Signs 03/01/18 17:05 Temperature 97.5 F L Pulse Rate 103 H Respiratory 18 Rate Blood Pressure 108/68 O2 Sat by Pulse 97 Oximetry - Reevaluation(s) Reevaluation #1: Significant improvement in pain, no signs of fatigue, lethargy, or altered mention. Pt requesting discharge. 03/01/18 Medical Decision Making - Medical Decision Making PE revealed non distended abdomen. Pt denies pain to palpation. Pt states she has chronic pain in the abdomen from cirrhosis, no new changes. Pt given 0.5mg dilaudid. Pt medication refilled, i discussed risk associated with opioid use. Pt is requesting discharge, refuses further evaluation. At this time I feel pt is chronic in nature, medications refilled. Discussed case with Dr. Byrne who agreed with impression and plan. Pt monitored after administration of dilaudid. Pt discharged in stable condition. VS within acceptable limits. Disposition Clinical Impression: Encounter for medication refill Disposition: HOME SELF-CARE Condition: Good Instructions: Pain Management (ED), Safe Use of Opioids (ED) Additional Instructions: Please use medication as discussed. Please follow-up with family doctor in the next 2 days and for future medication refills. Please return to emergency room if the symptoms increase or worsen or for any other concerns. Prescriptions: HYDROcodone/APAP 7.5-325MG [[place] 7.5-325] 1 tab PO Q6HR PRN 3 Days #12 tab PRN Reason: Severe Pain Is patient prescribed a controlled substance at d/c from ED?: Yes When asked, does pt state using other controlled substances?: No If prescribed controlled substance>3 days was MAPS reviewed?: Prescribed <3 Days If opioid is for acute pain is fill amount 7 days or less?: Yes If Rx opioid, was Start Talking consent form obtained?: Yes Referrals: Mark Estrada MD [Primary Care Provider] - 1-2 days Time of Disposition: 18:38
[2018-03-01 19:34] VITALS: BP 117/59; PULSE 81; TEMP 98
== END 2018-03-01 19:31 | disposition home or self-care (01) ==
LOC: EC 16:55
DX: Z76.0 Encounter for issue of repeat prescription (principal); G89.29 Other chronic pain; R10.9 Unspecified abdominal pain; K74.60 Unspecified cirrhosis of liver; F17.200 Nicotine dependence, unspecified, uncomplicated; Z86.19 Personal history of other infectious and parasitic diseases; Z87.19 Personal history of other diseases of the digestive system; Z85.3 Personal history of malignant neoplasm of breast; Z92.21 Personal history of antineoplastic chemotherapy; Z98.890 Other specified postprocedural states
CPT/HCPCS: 99281; 96372; J1170

== ENCOUNTER 2018-03-23 13:04 | Day surgery (SDC) | payer MEDICARE, OTHER ==
[2018-03-23 13:38] LABS: Mean Platelet Volume 8.8
[2018-03-23 13:39] LABS: Platelet Count 65 k/uL (150-450)
[2018-03-23 14:05] LABS: INR 1.1 (<1.2); Prothrombin Time 11.8 sec (9.0-12.0)
[2018-03-23 14:26] VITALS: RESP 16; TEMP 97.7
[2018-03-23] MEDS: ALBUMIN HUMAN 25% 50 ML in EMPTY BAG 1 BAG IVPB SCH ×4 (15:10→15:55)
[2018-03-23 16:32] VITALS: BP 108/60; PULSE 80
--- NOTE | 2018-03-24 08:12 | US ---
Therapeutic paracentesis. DATE OF EXAM: 03/23/2018 CLINICAL HISTORY: Ascites The procedure was discussed with the patient. The risks, complications, benefits, and alternatives we re discussed and any questions were answered. Informed consent was obtained. The patient was placed s upine on the ultrasound table and prepped and draped in the usual sterile fashion. All elements of maximal barrier technique were utilized. Under ultrasound guidance, access into the left lower quadrant was obtained, via the paracentesis catheter system and direct ultrasound guidance . Approximately 8.75 liters of straw-colored fluid was removed. The patient was stable throughout the p rocedure and remained stable upon discharge from Department of Radiology. IMPRESSION: Successful therapeutic paracentesis under ultrasound guidance.
== END 2018-03-23 16:33 | disposition home or self-care (01) ==
LOC: RADPROMAIN 13:04
PROVIDERS: ATTEND Family Medicine
DX: K70.31 Alcoholic cirrhosis of liver with ascites (principal)
CPT/HCPCS: 82565; 85049; 85610; 49083; P9047; J1642

== ENCOUNTER 2018-04-04 21:40 | Observation (INO) | payer MEDICARE, OTHER ==
--- NOTE | 2018-04-04 22:34 | ED ---
Abdominal Pain HPI - General Chief Complaint: Abdominal Pain Stated Complaint: Ascites Time Seen by Provider: 04/04/18 22:11 Source: patient Mode of arrival: ambulatory Limitations: no limitations - History of Present Illness Initial Comments: Natasha is a 52-year-old female with a history of advanced liver failure secondary to hepatitis C. Patient is scheduled to have outpatient paracentesis due to recurrent ascites. Patient presents the emergency department today reporting she has been unable to have her schedule paracentesis due to inability to catch the bus. Patient reports is been over 2 weeks since her previous paracentesis she comes to the ER today for evaluation of abdominal distention causing discomfort. - Related Data Previous Rx's Medication Instructions Recorded HYDROcodone/APAP 10-325MG [[place] 1 tab PO Q6HR PRN 3 Days #12 tab 09/18/17 10-325] HYDROcodone/APAP 7.5-325MG [[place] 1 tab PO Q6HR PRN 3 Days #12 tab 03/01/18 7.5-325] Allergies Allergy/AdvReac Type Severity Reaction Status Date / Time No Known Allergies Allergy Verified 04/04/18 22:04 Review of Systems ROS Statement: Those systems with pertinent positive or pertinent negative responses have been documented in the HPI. ROS Other: All systems not noted in ROS Statement are negative. Past Medical History Past Medical History: Cancer, GERD/Reflux, GI Bleed, Hearing Disorder / Deafness , Hypertension, Liver Disease Additional Past Medical History / Comment(s): Hepatitis C, ascities, cirrhosis, pancytopenia, vertigo; "benign abd mass", states has had esophageal banding, lt breast cancer had chemo last on 09-12-16-did not tolerate-completed only 3 cycles- then it was stopped, lt ear hearing loss, multiple upper GI bleeds, peritonitis History of Any Multi-Drug Resistant Organisms: None Reported Past Surgical History: Adenoidectomy, Tonsillectomy Additional Past Surgical History / Comment(s): multiple Paracentesises, EGD, esophageal banding, rt chest mediport 08-06-16, l breast bx. Past Anesthesia/Blood Transfusion Reactions: No Reported Reaction Additional Past Anesthesia/Blood Transfusion Reaction / Comment(s): blood transfusions- no reaction Past Psychological History: Anxiety Smoking Status: Current every day smoker Past Alcohol Use History: None Reported Past Drug Use History: None Reported - Past Family History Mother Family Medical History: Cancer Additional Family Medical History / Comment(s): of lung ca at the age of 59yrs. She was a smoker. Father Family Medical History: Myocardial Infarction ([place]) Additional Family Medical History / Comment(s): from 2nd heart attack at the age of 59yrs. General Exam - General Exam Comments Initial Comments: Physical Exam GENERAL: Chronically ill-appearing female, appears much older than stated age HENT: Normocephalic, Atraumatic. EYES: PERRL, EOMI PULMONARY: Shallow respirations secondary to abdominal distention CARDIOVASCULAR: There is a regular rate and rhythm without any murmurs gallops or rubs. ABDOMEN: Firm, nontender distention SKIN: Skin is clear with no lesions or rashes and otherwise unremarkable. : Deferred NEUROLOGIC: Patient is alert and oriented x3. Moving all extremities spontaneously MUSCULOSKELETAL: Generalized atrophy PSYCHIATRIC: Normal psychiatric evaluation. Limitations: no limitations Limitations: no limitations Course Vital Signs 04/04/18 22:02 Temperature 98.1 F Pulse Rate 84 Respiratory 18 Rate Blood Pressure 133/59 O2 Sat by Pulse 100 Oximetry Medical Decision Making - Medical Decision Making She was seen and evaluated history was obtained from the patient and review of medical record A she has not had paracentesis in 12 days duration, on physical exam she has gross ascites that is tense but nontender. She is afebrile not tachycardic I have no concern for spontaneous bacterial peritonitis. Patient care was discussed with her primary care physician, Dr. Estrada who is very familiar with this patient. He agrees with plan for placing the patient in observation with consult to interventional radiology for paracentesis tomorrow. Disposition Clinical Impression: Ascites, Abdominal pain Disposition: ADMITTED IP TO THIS HOSP Referrals: Mark Estrada MD [Primary Care Provider] - 1-2 days
[2018-04-04] MEDS ORDERED: MORPHINE SULFATE 4 MG/ML SYRINGE IV STA (22:37)
[2018-04-04] MEDS ORDERED: ALBUMIN HUMAN 25% 50 ML in EMPTY BAG 1 BAG IVPB SCH (23:00)
[2018-04-04] MEDS ORDERED: NALOXONE 0.4 MG/ML 1 ML VIAL IV PRN (23:05)
[2018-04-04 23:30] LABS: Basophils % (A) 0 %; Eosinophils # (A) 0.1 k/uL (0-0.7); Eosinophils % (A) 5 %; HCT 27.9 % (34.0-46.0); HGB 9.2 gm/dL (11.4-16.0); Hypochromasia Slight; Lymphocytes # (A) 0.8 k/uL (1.0-4.8); Lymphocytes % (A) 35 %; MCH 34.6 pg (25.0-35.0); MCHC 32.9 g/dL (31.0-37.0); Macrocytosis Moderate; Monocytes # (A) 0.2 k/uL (0-1.0); Monocytes % (A) 8 %; Neutrophils # (A) 1.1 k/uL (1.3-7.7); Neutrophils % (A) 50 %; RBC 2.65 m/uL (3.80-5.40); RDW 14.9 % (11.5-15.5); WBC 2.2 k/uL (3.8-10.6)
[2018-04-04 23:42] LABS: INR 1.1 (<1.2); Partial Thromboplastin Time 27.8 sec (22.0-30.0); Prothrombin Time 11.7 sec (9.0-12.0)
[2018-04-04 23:59] LABS: ALT 27 U/L (9-52); AST 28 U/L (14-36); Albumin 2.4 g/dL (3.5-5.0); Alkaline Phosphatase 112 U/L (38-126); Anion Gap 2 mmol/L; Blood Urea Nitrogen 13 mg/dL (7-17); Carbon Dioxide 26 mmol/L (22-30); Chloride 110 mmol/L (98-107); Glucose 98 mg/dL (74-99); Platelet Count 63 k/uL (150-450); Potassium 3.6 mmol/L (3.5-5.1); Sodium 138 mmol/L (137-145)
[2018-04-05] MEDS: ONDANSETRON 4 MG/2 ML VIAL IVP PRN (02:36)
[2018-04-05] MEDS: MORPHINE SULFATE 4 MG/ML SYRINGE IV PRN ×4 (02:36→15:12)
[2018-04-05 03:02] LABS: Appearance,Urine Clear (Clear); Bilirubin,Urine Negative (Negative); Blood,Urine Negative (Negative); Color,Urine Yellow; Glucose,Urine (UA) Negative (Negative); Ketones,Urine Negative (Negative); Leukocyte Esterase,Urine Negative (Negative); Nitrite,Urine Negative (Negative); PH, Urine 6.5 (5.0-8.0); Protein,Urine Trace (Negative); Specific Gravity,Urine 1.026 (1.001-1.035)
[2018-04-05] MEDS: FAMOTIDINE 20 MG TAB PO SCH ×2 (09:07→22:46)
[2018-04-05] MEDS: HYDROcodone/APAP 10-325MG 1 EACH TAB PO PRN ×2 (09:15→14:11)
[2018-04-05] MEDS ORDERED: LORazepam 1 MG TAB PO PRN (15:41)
[2018-04-06] MEDS: MORPHINE SULFATE 4 MG/ML SYRINGE IV PRN ×4 (08:09→22:59)
[2018-04-06] MEDS: FAMOTIDINE 20 MG TAB PO SCH ×2 (08:10→20:40)
--- NOTE | 2018-04-06 08:43 | US ---
EXAMINATION TYPE: US abdomen limited DATE OF EXAM: 04/06/2018 COMPARISON: 03/23/2018 CLINICAL HISTORY: 52-year-old female ASSESS FOR ASCITES. Distention Technique: Multiple sonographic images of the 4 abdominal quadrants for assessment of ascites fluid. FINDINGS: Moderate to large ascites redemonstrated in the 4 abdominal quadrants. IMPRESSION: Reaccumulation of moderate to large ascites fluid.
[2018-04-06] MEDS: HYDROcodone/APAP 10-325MG 1 EACH TAB PO PRN ×2 (11:13→16:53)
--- NOTE | 2018-04-06 16:17 | HP ---
HISTORY AND PHYSICAL CHIEF COMPLAINT: Intractable ascites. HISTORY OF PRESENT ILLNESS: This lady came to emergency room because of abdominal pain and distention. She has been undergoing paracentesis about every 10-14 days. She went past that slightly and then tried to get set up for outpatient paracentesis, but because of the holidays nobody is available. She came to the emergency room. Interventional Radiology was sought, but did not respond and she is admitted pending their assistance. REVIEW OF SYSTEMS: Otherwise unremarkable. She has had no vomiting, fever, chills, etc. Past medical history, family history, personal and social histories are all otherwise unremarkable or unchanged. The only medicine she is on is Vicodin at home for pain and she does well on this. She also has hepatitis C and breast cancer on the left, for which she has refused treatment. PHYSICAL EXAMINATION: Blood pressure is 100/55 with a pulse of 68, respirations of 22, and she is afebrile. In general, she appears to be chronically ill and emaciated. Skin was dry. There is no jaundice. Head, ears, eyes, nose, mouth, and throat were normal. Neck veins not distended. Thyroid not enlarged. Chest demonstrates rales at the bases. Cardiac exam demonstrates sinus rhythm. Abdomen is tightly distended with ascitic fluid. Extremities are unremarkable except for some mild edema. Neurologically she is intact. She is admitted to the hospital with diagnoses of: 1. Intractable ascites. 2. Cirrhosis. 3. Hepatitis C. 4. Carcinoma of the breast. 5. Chronic obstructive pulmonary disease. 6. Depression. PLAN: 1. Bed rest. 2. IV fluids. 3. Await paracentesis and then she can go home. MMODL / IJN: [id number] /
[2018-04-06] MEDS ORDERED: HYDROCORTISONE 1% CREAM 30 GM TUBE TOPICAL PRN (16:23)
--- NOTE | 2018-04-06 17:29 | PN ---
PROGRESS NOTE DATE OF SERVICE: 04/06/2018 CHIEF COMPLAINT: Intractable ascites. HISTORY OF PRESENT ILLNESS: This lady's awaiting paracentesis. She is somewhat uncomfortable but doing fairly well. PHYSICAL EXAM: Abdomen is slightly distended. Bowel sounds present. Chest is clear. Cardiac exam is normal. IMPRESSION: 1. Intractable ascites. 2. Cirrhosis. 3. Hepatitis C. 4. Carcinoma of the breast. 5. Chronic obstructive pulmonary disease. PLAN: Await paracentesis and then she can be discharged. MMODL / IJN: [id number] /
[2018-04-07] MEDS: HYDROcodone/APAP 10-325MG 1 EACH TAB PO PRN ×4 (00:06→17:18)
[2018-04-07] MEDS: MORPHINE SULFATE 4 MG/ML SYRINGE IV PRN ×6 (02:31→22:25)
[2018-04-07] MEDS: FAMOTIDINE 20 MG TAB PO SCH ×3 (09:06→21:01)
[2018-04-07 09:33] LABS: Mean Platelet Volume 9.2
[2018-04-07 09:35] LABS: INR 1.2 (<1.2); Prothrombin Time 12.4 sec (9.0-12.0)
[2018-04-07 09:44] LABS: Platelet Count 47 k/uL (150-450)
[2018-04-07] MEDS: NICOTINE 21MG/24HR PATCH TRANSDERM SCH (20:52)
[2018-04-08] MEDS: HYDROcodone/APAP 10-325MG 1 EACH TAB PO PRN ×4 (01:00→23:21)
[2018-04-08] MEDS: MORPHINE SULFATE 4 MG/ML SYRINGE IV PRN ×4 (04:33→20:34)
[2018-04-08] MEDS: NICOTINE 21MG/24HR PATCH TRANSDERM SCH (07:37)
[2018-04-08] MEDS: FAMOTIDINE 20 MG TAB PO SCH ×2 (07:38→21:37)
[2018-04-08 09:12] LABS: Mean Platelet Volume 8.5
[2018-04-08 09:16] LABS: Platelet Count 45 k/uL (150-450)
[2018-04-08] MEDS: ONDANSETRON 4 MG/2 ML VIAL IVP PRN (09:39)
--- NOTE | 2018-04-08 14:19 | PN ---
PROGRESS NOTE CHIEF COMPLAINT: Abdominal pain. HISTORY OF PRESENT ILLNESS: This lady's pain is getting worse. She has not had a paracentesis yet. It is still pending. PHYSICAL EXAM: She appears to be chronically ill, dehydrated and pale. Chest is clear and cardiac exam is normal and the abdomen is massively distended. IMPRESSION: 1. Intractable ascites. 2. Increased abdominal pain. 3. Hepatitis C with cirrhosis. 4. CA left breast. PLAN: Transfuse 1 unit of platelets and then, hopefully, proceed with paracentesis. MMODL / IJN: [id number] /
--- NOTE | 2018-04-08 14:34 | PN ---
PROGRESS NOTE CHIEF COMPLAINT: Intractable ascites and thrombocytopenia HISTORY OF PRESENT ILLNESS: This lady's platelet count is low again today and she will be given 2 units of packed cells. PHYSICAL EXAM: Unchanged. IMPRESSION: 1. Intractable ascites. 2. Cirrhosis. 3. Hepatitis C. 4. CA breast. 5. Thrombocytopenia. PLAN: Two units of platelets and then proceed with paracentesis. KAUSHIK / NESTORN: [id number] /
[2018-04-08] MEDS ORDERED: ALBUMIN HUMAN 25% 50 ML in EMPTY BAG 1 BAG IVPB ONE (20:00)
[2018-04-09] MEDS: HYDROcodone/APAP 10-325MG 1 EACH TAB PO PRN ×2 (05:04→11:23)
[2018-04-09] MEDS: MORPHINE SULFATE 4 MG/ML SYRINGE IV PRN (08:00)
[2018-04-09] MEDS: FAMOTIDINE 20 MG TAB PO SCH (08:01)
[2018-04-09] MEDS: NICOTINE 21MG/24HR PATCH TRANSDERM SCH (08:01)
[2018-04-09 08:50] VITALS: BP 91/61; PULSE 82; RESP 19; TEMP 98.9
--- NOTE | 2018-04-09 09:20 | US ---
Therapeutic paracentesis. DATE OF EXAM: 04/08/2018 CLINICAL HISTORY: Ascites The procedure was discussed with the patient. The risks, complications, benefits, and alternatives we re discussed and any questions were answered. Informed consent was obtained. The patient was placed s upine on the ultrasound table and prepped and draped in the usual sterile fashion. Platelet were infu sed immediately prior and during the procedure. All elements of maximal barrier technique were utilized. Under ultrasound guidance, access into the right lower quadrant was obtained, via the paracentesis catheter system and direct ultrasound guidanc e. Approximately 10 liters of straw-colored fluid was removed. The patient was stable throughout the pro cedure and remained stable upon discharge from Department of Radiology. IMPRESSION: Successful therapeutic paracentesis under ultrasound guidance.
[2018-04-09] MEDS: ONDANSETRON 4 MG/2 ML VIAL IVP PRN (10:31)
--- NOTE | 2018-04-10 20:15 | DS ---
DISCHARGE SUMMARY CHIEF COMPLAINT: Intractable ascites. HISTORY OF PRESENT ILLNESS AND PHYSICAL EXAM: Details of this lady's history and physical can be found in the initial workup. LABORATORY STUDIES: While she was in a hospital she had laboratory studies, details of which can be found in the laboratory section of her chart. COURSE IN HOSPITAL: After admission she was placed on bedrest, started on intravenous fluids and analgesics. She was to have paracentesis and go home, but there was a delay in getting it set up due to the holidays. Eventually, her platelet count was too low and she received platelet transfusions. Eventually the procedure was done and she received albumin afterwards and it was felt that she could go home in the evening of the 4th to follow up in several days. She is only taking Vicodin for pain. It is 10 mg. FINAL DIAGNOSES: 1. Intractable ascites. 2. Cirrhosis. 3. Hepatitis C. 4. Chronic obstructive pulmonary disease. 5. Carcinoma of the breast. 6. Malnutrition, chronic. OPERATIONS: Paracentesis. CONSULTATIONS: Interventional Radiology. MMODGokul / IJN: [id number] /
== END 2018-04-09 12:42 | disposition home or self-care (01) ==
LOC: EC 21:40 → 1SOBS 23:05 → 4SSUR 04-05 18:46
PROVIDERS: ADMIT Family Medicine; ATTEND Family Medicine
DX: B19.20 Unspecified viral hepatitis C without hepatic coma (principal); R18.8 Other ascites; K74.60 Unspecified cirrhosis of liver; K72.90 Hepatic failure, unspecified without coma; D69.6 Thrombocytopenia, unspecified; E86.0 Dehydration; I10 Essential (primary) hypertension; E41 Nutritional marasmus; C50.912 Malignant neoplasm of unspecified site of left female breast; E46 Unspecified protein-calorie malnutrition; J44.9 Chronic obstructive pulmonary disease, unspecified; K21.9 Gastro-esophageal reflux disease without esophagitis; H91.92 Unspecified hearing loss, left ear; F17.200 Nicotine dependence, unspecified, uncomplicated; F32.9 Major depressive disorder, single episode, unspecified; F41.9 Anxiety disorder, unspecified; Z87.19 Personal history of other diseases of the digestive system; Z86.19 Personal history of other infectious and parasitic diseases; Z86.2 Personal history of diseases of the blood and blood-forming organs and certain disorders involving the immune mechanism; Z92.21 Personal history of antineoplastic chemotherapy; Z82.49 Family history of ischemic heart disease and other diseases of the circulatory system; Z80.1 Family history of malignant neoplasm of trachea, bronchus and lung; Z81.2 Family history of tobacco abuse and dependence
CPT/HCPCS: 96376 ×4; 96365; 96375 ×2; 99284; 36415; 86900; 86901; 80053; 85025; 85049 ×2; 85610 ×2; 85730; 86850; 81003; 76705; 49083; G0378 ×6; P9035 ×2; S4990 ×3; J2270 ×6; J2405 ×3; P9047

== ENCOUNTER 2018-04-12 19:25 | Emergency (ER) | payer MEDICARE, OTHER ==
[2018-04-12 19:55] VITALS: BP 137/83; PULSE 79; RESP 18; TEMP 98.3
[2018-04-12] MEDS ORDERED: ONDANSETRON 4 MG ODT STARTER PACK 2 TAB BTL PO STA (22:20)
[2018-04-12] MEDS ORDERED: MORPHINE SULFATE 4 MG/ML SYRINGE IM STA (22:20)
--- NOTE | 2018-04-12 22:33 | ED ---
Abdominal Pain HPI - General Chief Complaint: Abdominal Pain Stated Complaint: Stomach pain Time Seen by Provider: 04/12/18 22:15 Source: patient Mode of arrival: ambulatory Limitations: no limitations - History of Present Illness Initial Comments: 52-year-old female patient with past medical history significant for chronic liver disease and ascites presents to the emergency department today requesting pain medication. Patient states she was discharged from the hospital on April 09, states that the pharmacy would not fill her Senath prescription. Patient states that she is having an increase in her usual abdominal pain due to not having her medication. She denies any new symptoms. Denies any nausea or vomiting. Denies any constipation or diarrhea. Denies any chest pain or shortness of breath with this. Again reports she is not having any new symptoms shows has increased pain because she is out of her medicine. Patient denies any recent rash, fever, chills, back pain, numbness, tingling, dizziness , weakness, hematuria, dysuria, urinary urgency, urinary frequency, headache, visual changes, or any other complaints. - Related Data Home Medications Medication Instructions Recorded Confirmed HYDROcodone/APAP 10-325MG [Senath 1 tab PO QID PRN 04/05/18 04/12/18 10-325] Allergies Allergy/AdvReac Type Severity Reaction Status Date / Time No Known Allergies Allergy Verified 04/12/18 22:33 Review of Systems ROS Statement: Those systems with pertinent positive or pertinent negative responses have been documented in the HPI. ROS Other: All systems not noted in ROS Statement are negative. Past Medical History Past Medical History: Cancer, GERD/Reflux, GI Bleed, Hearing Disorder / Deafness , Hypertension, Liver Disease Additional Past Medical History / Comment(s): Hepatitis C, ascities, cirrhosis, pancytopenia, vertigo; "benign abd mass", states has had esophageal banding, lt breast cancer had chemo last on 09-12-16-did not tolerate-completed only 3 cycles- then it was stopped, lt ear hearing loss, multiple upper GI bleeds, peritonitis History of Any Multi-Drug Resistant Organisms: None Reported Past Surgical History: Adenoidectomy, Tonsillectomy Additional Past Surgical History / Comment(s): multiple Paracentesises, EGD, esophageal banding, rt chest mediport 08-06-16, l breast bx., Past Anesthesia/Blood Transfusion Reactions: No Reported Reaction Additional Past Anesthesia/Blood Transfusion Reaction / Comment(s): blood transfusions- no reaction Past Psychological History: Anxiety Smoking Status: Current every day smoker Past Alcohol Use History: None Reported Past Drug Use History: None Reported - Past Family History Mother Family Medical History: Cancer Additional Family Medical History / Comment(s): of lung ca at the age of 59yrs. She was a smoker. Father Family Medical History: Myocardial Infarction ([place]) Additional Family Medical History / Comment(s): from 2nd heart attack at the age of 59yrs. General Exam Limitations: no limitations General appearance: alert, in no apparent distress, other (This is a well- developed, well-nourished adult female patient in no acute distress. Vital signs upon presentation are temperature 98.3F, pulse 79, respirations 18, blood pressure 137/83, pulse ox 97% on room air.) Eye exam: Present: normal appearance, PERRL, EOMI. Absent: scleral icterus, conjunctival injection, periorbital swelling ENT exam: Present: normal exam, normal oropharynx, mucous membranes moist Respiratory exam: Present: normal lung sounds bilaterally. Absent: respiratory distress, wheezes, rales, rhonchi, stridor Cardiovascular Exam: Present: regular rate, normal rhythm, normal heart sounds. Absent: systolic murmur, diastolic murmur, rubs, gallop, clicks GI/Abdominal exam: Present: soft, distended (Ascitic abdomen), normal bowel sounds. Absent: tenderness, guarding, rebound, rigid Neurological exam: Present: alert, oriented X3, CN II-XII intact Psychiatric exam: Present: normal affect, normal mood Skin exam: Present: warm, dry, intact, normal color. Absent: rash Course Vital Signs 04/12/18 19:52 Temperature 98.3 F Pulse Rate 79 Respiratory 18 Rate Blood Pressure 137/83 O2 Sat by Pulse 97 Oximetry Medical Decision Making - Medical Decision Making 52-year-old female patient presents to the emergency department today requesting pain medication for chronic abdominal pain. Physical examination does reveal distended ascitic abdomen, patient states this is actually good for her she did re-slammed ago paracentesis. Abdomen is soft, there is some mild upper abdominal tenderness. Patient reports no new symptoms today just states that she is unable to get her Senath prescription filled. I did do a [facility] report seems that patient did have a 12 Senath prescription filled on 04/09/2018 in by her primary care physician. Given this finding we will give patient one dose of pain medication here in the emergency department discharge her home to follow-up with her doctor. Return parameters were discussed in detail. She verbalizes understanding and agrees with this plan. Disposition Clinical Impression: Chronic abdominal pain, Medication refill Disposition: HOME SELF-CARE Condition: Good Instructions: Abdominal Pain (ED) Additional Instructions: Follow up with primary care physician for management of of your pain. Return immediately for any new, worsening, or concerning symptoms. Is patient prescribed a controlled substance at d/c from ED?: No Referrals: Mark Estrada MD [Primary Care Provider] - 1-2 days Time of Disposition: 22:33
== END 2018-04-12 23:15 | disposition home or self-care (01) ==
LOC: EC 19:25
DX: G89.29 Other chronic pain (principal); R10.9 Unspecified abdominal pain; R18.8 Other ascites; R14.0 Abdominal distension (gaseous); F17.200 Nicotine dependence, unspecified, uncomplicated; Z76.0 Encounter for issue of repeat prescription; Z85.3 Personal history of malignant neoplasm of breast; Z87.19 Personal history of other diseases of the digestive system; Z92.21 Personal history of antineoplastic chemotherapy; Z98.890 Other specified postprocedural states
CPT/HCPCS: 99284; 96372; J2270; S0119

== ENCOUNTER 2018-04-13 04:03 | Emergency (ER) | payer MEDICARE, OTHER ==
[2018-04-13 04:12] VITALS: BP 137/85; PULSE 82; RESP 18; TEMP 97.4
[2018-04-13] MEDS ORDERED: ACET/COD 300 MG/30 MG STARTER PACK 6 TAB BTL PO STA (07:29)
[2018-04-13] MEDS ORDERED: MORPHINE SULFATE 4 MG/ML SYRINGE IM STA (07:29)
--- NOTE | 2018-04-13 07:35 | ED ---
Recheck HPI - General Chief Complaint: Recheck/Abnormal Lab/Rx Stated Complaint: Recheck, Abd Pain Time Seen by Provider: 04/13/18 07:22 Source: patient, RN notes reviewed, old records reviewed Mode of arrival: ambulatory Limitations: no limitations - History of Present Illness Initial Comments: This Patient is a 52-year-old female well-known to the emergency department for cirrhosis of the liver and chronic abdominal pain. Patient presents today requesting pain medication. She was seen earlier this evening. She states that she was not able to receive her prescription for pain medication from her primary care physician because the pharmacy was out of this. Patient states that she went on it without pain medicine. She was seen earlier today and given 1 dose of by mouth [place]. Patient waited in the waiting room after being discharged for another 5 hours until she could recheck and again due to requesting further pain medicine. Patient reports that she is planning to have a paracentesis next week. She states that Dr. Estrada who prescribes her pain medication will have her get more pain medication today when she noticed pharmacy. - Related Data Home Medications Medication Instructions Recorded Confirmed HYDROcodone/APAP 10-325MG [[place] 1 tab PO QID PRN 04/05/18 04/12/18 10-325] Allergies Allergy/AdvReac Type Severity Reaction Status Date / Time No Known Allergies Allergy Verified 04/13/18 04:12 Review of Systems ROS Statement: Those systems with pertinent positive or pertinent negative responses have been documented in the HPI. ROS Other: All systems not noted in ROS Statement are negative. Past Medical History Past Medical History: Cancer, GERD/Reflux, GI Bleed, Hearing Disorder / Deafness , Hypertension, Liver Disease Additional Past Medical History / Comment(s): Hepatitis C, ascities, cirrhosis, pancytopenia, vertigo; "benign abd mass", states has had esophageal banding, lt breast cancer had chemo last on 09-12-16-did not tolerate-completed only 3 cycles- then it was stopped, lt ear hearing loss, multiple upper GI bleeds, peritonitis History of Any Multi-Drug Resistant Organisms: None Reported Past Surgical History: Adenoidectomy, Tonsillectomy Additional Past Surgical History / Comment(s): multiple Paracentesises, EGD, esophageal banding, rt chest mediport 08-06-16, l breast bx., Past Anesthesia/Blood Transfusion Reactions: No Reported Reaction Additional Past Anesthesia/Blood Transfusion Reaction / Comment(s): blood transfusions- no reaction Past Psychological History: Anxiety Smoking Status: Current every day smoker Past Alcohol Use History: None Reported Past Drug Use History: None Reported - Past Family History Mother Family Medical History: Cancer Additional Family Medical History / Comment(s): of lung ca at the age of 59yrs. She was a smoker. Father Family Medical History: Myocardial Infarction ([place]) Additional Family Medical History / Comment(s): from 2nd heart attack at the age of 59yrs. General Exam - General Exam Comments Initial Comments: His is a 52-year-old female. Patient appears chronically ill. Limitations: no limitations General appearance: alert, in no apparent distress Head exam: Present: atraumatic, normocephalic, normal inspection Eye exam: Present: normal appearance, PERRL, EOMI. Absent: scleral icterus, conjunctival injection, periorbital swelling ENT exam: Present: normal exam, mucous membranes moist Neck exam: Present: normal inspection. Absent: tenderness, meningismus, lymphadenopathy Respiratory exam: Present: normal lung sounds bilaterally. Absent: respiratory distress, wheezes, rales, rhonchi, stridor Cardiovascular Exam: Present: regular rate, normal rhythm, normal heart sounds. Absent: systolic murmur, diastolic murmur, rubs, gallop, clicks GI/Abdominal exam: Present: distended, normal bowel sounds, other (Ascitic abdomen). Absent: soft, tenderness, guarding, rebound, rigid Extremities exam: Present: normal inspection, full ROM, normal capillary refill. Absent: tenderness, pedal edema, joint swelling, calf tenderness Back exam: Present: normal inspection Neurological exam: Present: alert Psychiatric exam: Present: normal affect, normal mood Course Vital Signs 04/13/18 04:08 Temperature 97.4 F L Pulse Rate 82 Respiratory 18 Rate Blood Pressure 137/85 O2 Sat by Pulse 98 Oximetry Medical Decision Making - Medical Decision Making Patient is a 52-year-old female presents with ready with complaints of needing a refill for pain medication. Patient was seen in the emergency department earlier today. Given 1 pain pill. Patient states that she does not want to have any further testin, starting IV or to be admitted. Patient states that she only wants to have pain medication and to be discharged to get her pain meds refilled today at the pharmacy. She has an appointment today with her primary care physician. Patient is scheduled to have paracentesis done next week. At this time because of patient's continued to wait emergency department for just refill pain medication will give Patient one Tylenol 3 starter pack. I did discuss the Patient should follow-up with her PCP for further pain meds and follow up with her paracentesis scheduled. She has no increasing shortness of breath or change in vital signs. She states that she has no evidence acute changes due to her chronic abdominal pain. Discussed the patient's to strict return parameters. Patient agrees to treatment plan. Disposition Clinical Impression: Drug-seeking behavior, Chronic abdominal pain Disposition: HOME SELF-CARE Condition: Good Instructions: Abdominal Pain (ED) Additional Instructions: Patient advised to follow-up with primary care physician. Return to emergency department if any alarming signs or symptoms occur. Is patient prescribed a controlled substance at d/c from ED?: No Referrals: Mark Estrada MD [Primary Care Provider] - 1-2 days Time of Disposition: 07:34
== END 2018-04-13 07:57 | disposition home or self-care (01) ==
LOC: EC 04:03
DX: G89.29 Other chronic pain (principal); R10.9 Unspecified abdominal pain; F17.200 Nicotine dependence, unspecified, uncomplicated; Z76.5 Malingerer [conscious simulation]; Z87.19 Personal history of other diseases of the digestive system; Z98.890 Other specified postprocedural states
CPT/HCPCS: 99283; 96372; J2270

== ENCOUNTER 2018-04-18 22:58 | Inpatient (IN) | payer MEDICARE, OTHER ==
[2018-04-18] MEDS ORDERED: ACETAMINOPHEN TAB 325 MG TAB PO STA (23:42)
[2018-04-18 23:43] LABS: Basophils % (A) 0 %; Eosinophils % (A) 1 %; HCT 32.8 % (34.0-46.0); HGB 10.7 gm/dL (11.4-16.0); Hypochromasia Slight; Lymphocytes # (A) 0.3 k/uL (1.0-4.8); Lymphocytes % (A) 10 %; MCH 34.3 pg (25.0-35.0); MCHC 32.5 g/dL (31.0-37.0); MCV 105.7 fL (80.0-100.0); Macrocytosis Moderate; Mean Platelet Volume 9.3; Monocytes # (A) 0.1 k/uL (0-1.0); Monocytes % (A) 4 %; Neutrophils # (A) 2.6 k/uL (1.3-7.7); Neutrophils % (A) 83 %; RBC 3.11 m/uL (3.80-5.40); RDW 14.7 % (11.5-15.5); WBC 3.2 k/uL (3.8-10.6)
[2018-04-18] MEDS ORDERED: PIPERACILLIN-TAZOBACTAM 3.375 GM in SODIUM CHLORIDE 0.9% 100 ML IVPB STA (23:43)
[2018-04-18] MEDS ORDERED: MORPHINE SULFATE 4 MG/ML SYRINGE IV STA (23:43)
[2018-04-18 23:57] LABS: ALT 22 U/L (9-52); AST 26 U/L (14-36); Albumin 2.2 g/dL (3.5-5.0); Alkaline Phosphatase 82 U/L (38-126); Anion Gap 5 mmol/L; Blood Urea Nitrogen 12 mg/dL (7-17); Calcium 7.5 mg/dL (8.4-10.2); Carbon Dioxide 23 mmol/L (22-30); Chloride 111 mmol/L (98-107); Glucose 102 mg/dL (74-99); Lipase 52 U/L (23-300); Potassium 3.4 mmol/L (3.5-5.1); Sodium 139 mmol/L (137-145); Total Bilirubin 2.1 mg/dL (0.2-1.3); Total Protein 5.6 g/dL (6.3-8.2)
[2018-04-19 00:04] LABS: Amylase <30 U/L (30-110)
[2018-04-19 00:06] LABS: Lactic Acid, Venous 3.1 mmol/L (0.7-2.0)
[2018-04-19 00:08] LABS: Platelet Count 65 k/uL (150-450)
[2018-04-19] MEDS ORDERED: SODIUM CHLORIDE 0.9% 2,000 ML IV ONE (00:22)
--- NOTE | 2018-04-19 00:43 | CT ---
EXAMINATION TYPE: CT abdomen pelvis wo con DATE OF EXAM: 04/19/2018 COMPARISON: 09/01/2017 HISTORY: Patient presents with abdominal pain and distension CT DLP: 829.2 mGycm Automated exposure control for dose reduction was used. TECHNIQUE: Helical acquisition of images was performed from the lung bases through the pelvis. FINDINGS: There is minimal subsegmental atelectasis at the right lung base. There is no pleural effusion. There is massive ascites. Liver is small consistent with cirrhosis. Spleen is mildly enlarged and measures 14 cm. There is no evidence of a pancreatic mass. There is probably a small hiatal hernia. Stomach i s otherwise normal. Kidneys have normal contour. There is 2 mm calcification interpolar right kidney. There is no hydrone phrosis. Ureters are not dilated. There is no evidence of pneumoperitoneum. Urinary bladder is not we ll defined because of the massive ascites. Uterus is anteverted. The lumbar spine is intact. There is no inguinal hernia. I see no evidence of a bowel obstruction. I do not see sign of any significant v arices. IMPRESSION: THERE IS MASSIVE ASCITES SIMILAR TO OLD EXAM. SMALL LIVER CONSISTENT WITH CIRRHOSIS UNCHANGED. SPLENO MEGALY UNCHANGED. NEW SMALL RIGHT RENAL CALCULUS.
[2018-04-19] MEDS ORDERED: MORPHINE SULFATE 4 MG/ML SYRINGE IV STA (02:12)
[2018-04-19] MEDS ORDERED: MORPHINE SULFATE 4 MG/ML SYRINGE IVP STA (06:51)
[2018-04-19] MEDS ORDERED: NALOXONE 0.4 MG/ML 1 ML VIAL IV PRN (06:55)
--- NOTE | 2018-04-19 07:03 | ED ---
Abdominal Pain HPI - General Chief Complaint: Abdominal Pain Stated Complaint: abd pain Time Seen by Provider: 04/18/18 23:26 Source: patient Mode of arrival: EMS Limitations: no limitations - History of Present Illness Initial Comments: This patient is a 52-year-old woman who presents with worsening of chronic abdominal pain as well as fevers that is been developing progressively over the course of tonight. She states she has difficult time pinpointing what exactly started getting worse. She also settled but the nausea. She indicates the pain is sharp, it is in the right side of the abdomen. It is worse with movement area she has not noted relieving factors. She states it is not diffuse in the abdomen. She has not noted any change in urination. No change in bowel movements. MD Complaint: abdominal pain Onset/Timin -: days(s) Location: RUQ Radiation: none Severity: severe Quality: sharp Consistency: constant Improves With: nothing Worsens With: nothing Associated Symptoms: nausea, fever - Related Data Home Medications Medication Instructions Recorded Confirmed HYDROcodone/APAP 10-325MG [[place] 1 tab PO Q4H PRN 04/05/18 04/19/18 10-325] Allergies Allergy/AdvReac Type Severity Reaction Status Date / Time No Known Allergies Allergy Verified 04/19/18 07:14 Review of Systems ROS Statement: Those systems with pertinent positive or pertinent negative responses have been documented in the HPI. ROS Other: All systems not noted in ROS Statement are negative. Constitutional: Reports: fever, chills ENT: Denies: throat pain Respiratory: Denies: cough, dyspnea, hemoptysis Cardiovascular: Denies: chest pain, palpitations, edema, syncope Gastrointestinal: Reports: abdominal pain, nausea. Denies: vomiting, diarrhea, constipation, melena, hematochezia Genitourinary: Denies: dysuria, hematuria Musculoskeletal: Denies: back pain Skin: Denies: rash Neurological: Denies: headache, weakness Past Medical History Past Medical History: Cancer, GERD/Reflux, GI Bleed, Hearing Disorder / Deafness , Hypertension, Liver Disease Additional Past Medical History / Comment(s): Hepatitis C, ascities, cirrhosis, pancytopenia, vertigo; "benign abd mass", states has had esophageal banding, lt breast cancer had chemo last on 09-12-16-did not tolerate-completed only 3 cycles- then it was stopped, lt ear hearing loss, multiple upper GI bleeds, peritonitis History of Any Multi-Drug Resistant Organisms: None Reported Past Surgical History: Adenoidectomy, Tonsillectomy Additional Past Surgical History / Comment(s): multiple Paracentesises, EGD, esophageal banding, rt chest mediport 08-06-16, l breast bx., Past Anesthesia/Blood Transfusion Reactions: No Reported Reaction Additional Past Anesthesia/Blood Transfusion Reaction / Comment(s): blood transfusions- no reaction Past Psychological History: Anxiety Smoking Status: Current every day smoker Past Alcohol Use History: None Reported Past Drug Use History: None Reported - Past Family History Mother Family Medical History: Cancer Additional Family Medical History / Comment(s): of lung ca at the age of 59yrs. She was a smoker. Father Family Medical History: Myocardial Infarction ([place]) Additional Family Medical History / Comment(s): from 2nd heart attack at the age of 59yrs. General Exam Limitations: no limitations General appearance: alert Head exam: Present: atraumatic, normocephalic Eye exam: Present: normal appearance. Absent: scleral icterus, conjunctival injection ENT exam: Present: mucous membranes dry Neck exam: Present: normal inspection, full ROM. Absent: meningismus Respiratory exam: Present: normal lung sounds bilaterally. Absent: respiratory distress, wheezes, rales, rhonchi, stridor Cardiovascular Exam: Present: regular rate, normal rhythm, normal heart sounds. Absent: systolic murmur, diastolic murmur, rubs, gallop GI/Abdominal exam: Present: soft, distended, tenderness (Right upper quadrant), diminished bowel sounds. Absent: guarding, rebound, rigid, mass Extremities exam: Present: normal inspection, normal capillary refill. Absent: pedal edema, calf tenderness Back exam: Present: normal inspection. Absent: CVA tenderness (R), CVA tenderness (L) Neurological exam: Present: alert Skin exam: Present: warm, dry, intact, normal color. Absent: rash Course Vital Signs 04/18/18 04/18/18 04/19/18 23:02 23:06 01:03 Temperature 102.8 F H 102.4 F H Pulse Rate 96 58 L Respiratory 22 20 Rate Blood Pressure 142/82 118/67 O2 Sat by Pulse 96 94 L Oximetry 04/19/18 04/19/18 04/19/18 02:00 04:03 04:10 Temperature 98.7 F Pulse Rate 96 Respiratory Rate Blood Pressure 118/67 105/60 O2 Sat by Pulse 94 L 96 Oximetry 04/19/18 06:00 Temperature Pulse Rate 91 Respiratory Rate Blood Pressure 105/60 O2 Sat by Pulse 93 L Oximetry Medical Decision Making - Medical Decision Making Patient is a 52-year-old woman with end-stage liver disease, presenting with right-sided abdominal pain and fever. Her workup does not yet reveal source, and therefore will have interventional radiology see the patient regarding paracentesis to rule out peritonitis. The patient's exam not convincing for peritonitis as the pain is not diffuse and there is not diffuse tenderness, but as there is no source will continue workup. Case discussed with Dr. Estrada and Dr. Jacobson will also be consulted. - Lab Data Result diagrams: 04/18/18 23:15 04/18/18 23:15 Lab Results 04/18/18 04/18/18 04/18/18 Range/Units 23:15 23:15 23:15 WBC 3.2 L (3.8-10.6) k/uL RBC 3.11 L (3.80-5.40) m/uL Hgb 10.7 L (11.4-16.0) gm/dL Hct 32.8 L (34.0-46.0) % MCV 105.7 H (80.0-100.0) fL MCH 34.3 (25.0-35.0) pg MCHC 32.5 (31.0-37.0) g/dL RDW 14.7 (11.5-15.5) % Plt Count 65 L (150-450) k/uL Neutrophils % 83 % Lymphocytes % 10 % Monocytes % 4 % Eosinophils % 1 % Basophils % 0 % Neutrophils # 2.6 (1.3-7.7) k/uL Lymphocytes # 0.3 L (1.0-4.8) k/uL Monocytes # 0.1 (0-1.0) k/uL Eosinophils # 0.0 (0-0.7) k/uL Basophils # 0.0 (0-0.2) k/uL Manual Slide Review Performed Hypochromasia Slight Macrocytosis Moderate Sodium 139 (137-145) mmol/L Potassium 3.4 L (3.5-5.1) mmol/L Chloride 111 H (98-107) mmol/L Carbon Dioxide 23 (22-30) mmol/L Anion Gap 5 mmol/L BUN 12 (7-17) mg/dL Creatinine 0.59 (0.52-1.04) mg/dL Est GFR (CKD-EPI)AfAm >90 (>60 ml/min/1.73 sqM) Est GFR (CKD-EPI)NonAf >90 (>60 ml/min/1.73 sqM) Glucose 102 H (74-99) mg/dL Lactic Ac Sepsis Rflx Plasma Lactic Acid Darrius 3.1 H* (0.7-2.0) mmol/L Calcium 7.5 L (8.4-10.2) mg/dL Total Bilirubin 2.1 H (0.2-1.3) mg/dL AST 26 (14-36) U/L ALT 22 (9-52) U/L Alkaline Phosphatase 82 (38-126) U/L Ammonia 16 (<30) umol/L Total Protein 5.6 L (6.3-8.2) g/dL Albumin 2.2 L (3.5-5.0) g/dL Amylase <30 L (30-110) U/L Lipase 52 (23-300) U/L Urine Color Urine Appearance (Clear) Urine pH (5.0-8.0) Ur Specific [place] (1.001-1.035) Urine Protein (Negative) Urine Glucose (UA) (Negative) Urine Ketones (Negative) Urine Blood (Negative) Urine Nitrite (Negative) Urine Bilirubin (Negative) Urine Urobilinogen (<2.0) mg/dL Ur Leukocyte Esterase (Negative) Urine RBC (0-5) /hpf Urine WBC (0-5) /hpf Ur Squamous Epith Cells (0-4) /hpf Amorphous Sediment (None) /hpf Urine Bacteria (None) /hpf Urine Mucus (None) /hpf 04/19/18 04/19/18 04/19/18 Range/Units 00:06 06:46 06:46 WBC (3.8-10.6) k/uL RBC (3.80-5.40) m/uL Hgb (11.4-16.0) gm/dL Hct (34.0-46.0) % MCV (80.0-100.0) fL MCH (25.0-35.0) pg MCHC (31.0-37.0) g/dL RDW (11.5-15.5) % Plt Count (150-450) k/uL Neutrophils % % Lymphocytes % % Monocytes % % Eosinophils % % Basophils % % Neutrophils # (1.3-7.7) k/uL Lymphocytes # (1.0-4.8) k/uL Monocytes # (0-1.0) k/uL Eosinophils # (0-0.7) k/uL Basophils # (0-0.2) k/uL Manual Slide Review Hypochromasia Macrocytosis Sodium (137-145) mmol/L Potassium (3.5-5.1) mmol/L Chloride (98-107) mmol/L Carbon Dioxide (22-30) mmol/L Anion Gap mmol/L BUN (7-17) mg/dL Creatinine (0.52-1.04) mg/dL Est GFR (CKD-EPI)AfAm (>60 ml/min/1.73 sqM) Est GFR (CKD-EPI)NonAf (>60 ml/min/1.73 sqM) Glucose (74-99) mg/dL Lactic Ac Sepsis Rflx Y Plasma Lactic Acid Darri[place] 1.8 (0.7-2.0) mmol/L Calcium (8.4-10.2) mg/dL Total Bilirubin (0.2-1.3) mg/dL AST (14-36) U/L ALT (9-52) U/L Alkaline Phosphatase (38-126) U/L Ammonia (<30) umol/L Total Protein (6.3-8.2) g/dL Albumin (3.5-5.0) g/dL Amylase (30-110) U/L Lipase (23-300) U/L Urine Color Light Brown Urine Appearance Cloudy H (Clear) Urine pH 6.0 (5.0-8.0) Ur Specific [place] 1.038 H (1.001-1.035) Urine Protein 1+ H (Negative) Urine Glucose (UA) Trace H (Negative) Urine Ketones 1+ H (Negative) Urine Blood Negative (Negative) Urine Nitrite Negative (Negative) Urine Bilirubin 1+ H (Negative) Urine Urobilinogen 4.0 (<2.0) mg/dL Ur Leukocyte Esterase Negative (Negative) Urine RBC 6 H (0-5) /hpf Urine WBC 3 (0-5) /hpf Ur Squamous Epith Cells 6 H (0-4) /hpf Amorphous Sediment Rare H (None) /hpf Urine Bacteria Occasional H (None) /hpf Urine Mucus Few H (None) /hpf Disposition Clinical Impression: Fever Disposition: ADMITTED IP TO THIS HOSP Condition: Poor Is patient prescribed a controlled substance at d/c from ED?: No
[2018-04-19 07:04] LABS: Amorphous Sediment,Urine Rare /hpf; Appearance,Urine Cloudy (Clear); Bacteria,Urine Occasional /hpf; Bilirubin,Urine 1+ (Negative); Blood,Urine Negative (Negative); Color,Urine Light Brown; Glucose,Urine (UA) Trace (Negative); Ketones,Urine 1+ (Negative); Leukocyte Esterase,Urine Negative (Negative); Mucus,Urine Few /hpf; Nitrite,Urine Negative (Negative); Protein,Urine 1+ (Negative); RBC,Urine 6 /hpf (0-5); Specific Gravity,Urine 1.038 (1.001-1.035); Squamous Epithelial Cell,Urine 6 /hpf (0-4); WBC,Urine 3 /hpf (0-5)
[2018-04-19] MEDS: SODIUM CHLORIDE 0.9% 1,000 ML IV SCH (09:54)
[2018-04-19] MEDS: cefTRIAXone 2,000 MG in SODIUM CHLORIDE 0.9% 100 ML IVPB SCH ×2 (09:54→20:51)
[2018-04-19] MEDS: MORPHINE SULFATE 4 MG/ML SYRINGE IV PRN ×4 (09:56→22:01)
[2018-04-19 09:59] LABS: Mean Platelet Volume 9.1
[2018-04-19 10:02] LABS: Platelet Count 60 k/uL (150-450)
[2018-04-19 10:23] LABS: INR 1.4 (<1.2); Prothrombin Time 13.8 sec (9.0-12.0)
--- NOTE | 2018-04-19 14:33 | US ---
Therapeutic paracentesis. DATE OF EXAM: 04/19/2018 CLINICAL HISTORY: Ascites The procedure was discussed with the patient. The risks, complications, benefits, and alternatives we re discussed and any questions were answered. Informed consent was obtained. The patient was placed s upine on the ultrasound table and prepped and draped in the usual sterile fashion. All elements of maximal barrier technique were utilized. Under ultrasound guidance, access into the right lower quadrant was obtained, via the paracentesis catheter system and direct ultrasound guidanc e. Approximately 10.5 liters of straw-colored fluid was removed. The patient was stable throughout the p rocedure and remained stable upon discharge from Department of Radiology. IMPRESSION: Successful therapeutic paracentesis under ultrasound guidance.
[2018-04-19 14:48] VITALS: BMI 25.8
[2018-04-19 19:08] LABS: Appearance,BF Clear; Color,BF Yellow; Nucleated Cells, Body Fluid 1085 /uL; RBC, Body Fluid 320 /uL
[2018-04-19 19:09] LABS: Mononuclear WBC,Body Fluid 6 %; Polynuclear WBC,Body Fluid 94 %
--- NOTE | 2018-04-20 00:12 | P.CON ---
Consult Note - . Consult date: 04/19/18 Assessment/Plan:: This is a 52-year-old female who has multiple medical troubles that includes her triple negative breast carcinoma and her chronic active hepatitis C with cirrhosis and chronic refractory ascites that has required multiple admissions and multiple paracentesis. She has beem treated with Epculusa for her hepatitis C. She continues to have cirrhosis with her significant and refractory ascites that has required multiple paracentesis and is up to every other week paracentesis. Last one was done on April 08 with removal of proximal 10 L of straw-colored fluid. She was hospitalized from April 04 through April 09 and treated for intractable ascites. Patient presented to [facility] emergency [facility] on April 19 with complaints of right lower abdominal pain with nausea, loss of appetite and fever. She believes her symptoms started yesterday. She had a bowel movement approximately 3 days ago which she states was normal and without blood or tarriness. CAT scan of the abdomen and pelvis without contrast showed massive ascites similar to old exam. Small liver consistent with cirrhosis unchanged. Splenomegaly unchanged. She is found to have a temperature max of 102.8 with other vital signs stable, white count 3.2, platelet count 65 and hemoglobin 10.7. Creatinine 0.59. Lactic acid was 3.1 and repeat 1.8. Total bilirubin is now 2.1, AST 26, ALT 22, alkaline phosphatase 82, albumin is 2.2. Ammonia level 16, influenza testing negative. Patient was provided Zosyn, morphine and 2 L of IV fluid and is prepared for admission to the [facility] floor. There is a consult in place for interventional radiology to perform paracentesis and fluid studies have been ordered including culture. Blood culture has not been obtained. Patient now states that her pain is all over her abdomen and she is very tender to touch. Patient has had previous blood cultures positive for Staphylococcus epidermidis and E. coli. Please see the counselors dictated by nurse practitioner Mrs. Lea Friedman. He has noted the patient is a very complex history with cirrhosis and her extensive ascites and multiple paracentesis to control the ascites and great discomfort that she has. Patient is now presenting with elevated total bilirubin as well as a fever 102.8. Spontaneous bacterial peritonitis is of concern and the patient has had a paracentesis today and fluid was sent to telemetry for culture. Based on her history Rocephin will be utilized for now until we have further data. We'll discuss her care with a groutman as far as the utility of chronic suppressive antibiotic therapy given now her second bout of spontaneous bacterial peritonitis. I agree with evaluation, assessment and plan as dictated by nurse practitioner Mrs. Lea Friedman.
[2018-04-20] MEDS: MORPHINE SULFATE 4 MG/ML SYRINGE IV PRN ×7 (01:10→22:15)
[2018-04-20 04:59] LABS: Total Protein, Body Fluid 938 mg/dL
[2018-04-20] MEDS: cefTRIAXone 2,000 MG in SODIUM CHLORIDE 0.9% 100 ML IVPB SCH ×2 (08:27→21:55)
[2018-04-20] MEDS: SODIUM CHLORIDE 0.9% 1,000 ML IV SCH (08:27)
--- NOTE | 2018-04-20 10:23 | P.CONS ---
History of Present Illness - Reason for Consult Consult date: 04/19/18 Fever, possible peritonitis - History of Present Illness This is a 52-year-old female who has multiple medical troubles that includes her triple negative breast carcinoma and her chronic active hepatitis C with cirrhosis and chronic refractory ascites that has required multiple admissions and multiple paracentesis. She has beem treated with Epculusa for her hepatitis C. She continues to have cirrhosis with her significant and refractory ascites that has required multiple paracentesis and is up to every other week paracentesis. Last one was done on April 08 with removal of proximal 10 L of straw-colored fluid. She was hospitalized from April 04 through April 09 and treated for intractable ascites. Patient presented to [facility] emergency center on April 19 with complaints of right lower abdominal pain with nausea, loss of appetite and fever. She believes her symptoms started yesterday. She had a bowel movement approximately 3 days ago which she states was normal and without blood or tarriness. CAT scan of the abdomen and pelvis without contrast showed massive ascites similar to old exam. Small liver consistent with cirrhosis unchanged. Splenomegaly unchanged. She is found to have a temperature max of 102.8 with other vital signs stable, white count 3.2, platelet count 65 and hemoglobin 10.7. Creatinine 0.59. Lactic acid was 3.1 and repeat 1.8. Total bilirubin is now 2.1, AST 26, ALT 22, alkaline phosphatase 82, albumin is 2.2. Ammonia level 16, influenza testing negative. Patient was provided Zosyn, morphine and 2 L of IV fluid and is prepared for admission to the [facility] floor. There is a consult in place for interventional radiology to perform paracentesis and fluid studies have been ordered including culture. Blood culture has not been obtained. Patient now states that her pain is all over her abdomen and she is very tender to touch. Patient has had previous blood cultures positive for Staphylococcus epidermidis and E. coli. Review of Systems All systems: negative Constitutional: Reports anorexia, Reports fatigue, Reports lethargy, Reports poor appetite, Reports weakness, Denies chills, Denies fever Eyes: denies blurred vision, denies pain Ears, nose, mouth and throat: Denies dental pain, Denies headache, Denies mouth pain, Denies sore throat, Denies vertigo Cardiovascular: Denies chest pain, Denies dyspnea on exertion, Denies edema, Denies leg edema, Denies lightheadedness, Denies shortness of breath, Denies syncope Respiratory: Denies cough, Denies cough with sputum, Denies dyspnea, Denies excessive sputum, Denies hemoptysis, Denies home oxygen, Denies wheezing Gastrointestinal: Reports abdominal pain, Reports bloating, Reports loss of appetite, Reports nausea, Denies constipation, Denies diarrhea, Denies melena, Denies vomiting Genitourinary: Denies dysuria, Denies hematuria Musculoskeletal: Denies myalgias Integumentary: Denies pruritus, Denies rash Neurological: Denies aphasia, Denies change in mentation, Denies confusion, Denies convulsions, Denies numbness, Denies seizures, Denies weakness Psychiatric: Denies anxiety, Denies depression Endocrine: Denies fatigue, Denies weight change Past Medical History Past Medical History: Cancer, COPD, GERD/Reflux, GI Bleed, Hearing Disorder / Deafness, Hypertension, Liver Disease Additional Past Medical History / Comment(s): Hepatitis C, intractable ascities with multiple paracentesis, cirrhosis, peritonitis, pancytopenia, vertigo; "benign abd mass", multiple upper GI bleeds, esophageal varicies/esophageal banding, lt breast cancer had chemo last on 09-12-16-did not tolerate-completed only 3 cycles-then it was stopped/no surgery, lt ear hearing loss. History of Any Multi-Drug Resistant Organisms: None Reported Past Surgical History: Adenoidectomy, Tonsillectomy Additional Past Surgical History / Comment(s): Multiple paracentesises, EGDs, esophageal banding, rt chest mediport 08-06-16, l breast bx., Past Anesthesia/Blood Transfusion Reactions: No Reported Reaction Additional Past Anesthesia/Blood Transfusion Reaction / Comm: blood transfusions - no reaction Smoking Status: Current every day smoker Additional Past Alcohol Use History / Comment(s): Patient started smoking at age 13/2 a pack a day and cut back to one to 3 cigarettes per day no history of alcohol abuse. Patient lives with her son. She is currently on disability. - Past Family History Mother Family Medical History: Cancer Additional Family Medical History / Comment(s): of lung ca at the age of 59yrs. She was a smoker. Father Family Medical History: Myocardial Infarction (MS) Additional Family Medical History / Comment(s): from 2nd heart attack at the age of 59yrs. Medications and Allergies Home Medications Medication Instructions Recorded Confirmed Type HYDROcodone/APAP 10-325MG [[place] 1 tab PO Q4H PRN 04/05/18 04/19/18 History 10-325] Allergies Allergy/AdvReac Type Severity Reaction Status Date / Time No Known Allergies Allergy Verified 04/19/18 07:14 Physical Exam Vitals: Vital Signs Temp Pulse Resp BP Pulse Ox 04/19/18 08:29 78 18 99/58 95 04/19/18 06:00 91 105/60 93 L 04/19/18 04:10 98.7 F 04/19/18 04:03 96 105/60 96 04/19/18 02:00 118/67 94 L 04/19/18 01:03 102.4 F H 58 L 20 118/67 94 L 04/18/18 23:06 142/82 04/18/18 23:02 102.8 F H 96 22 96 Intake and Output 04/18/18 04/19/18 04/19/18 22:59 06:59 14:59 Other: Weight 77.111 kg Cachectic 52-year-old woman who appears much older than her stated age. She is on the ER stretcher and appears to be uncomfortable secondary to abdominal pain. HEENT: Anicteric conjunctiva are pink and moist nasal mucosa grossly intact without significant lesions, there is no thrush. Edentulous Neck: The neck is supple without significant lymphadenopathy or thyromegaly. Lungs: Symmetrical air entry with expiratory wheezing but no mikayla bronchial sounds no dullness or egophony Heart: Regular rate and rhythm with an audible S1-S2, no S3 no S4. There is no significant murmur click or rub, PMI was nondisplaced. Abdomen: extensive ascites with generalized pain and tenderness. Organomegaly cannot be palpated Extremities: The upper extremities have excellent pulses they are symmetric, no significant petechiae or telangiectasia. No splinter hemorrhages were noted. Lower extremities without edema Neuro: Awake alert oriented to person place and time. There are no acute new gross focal sensory motor deficits. Results Results: Laboratory Results WBC 3.2 k/uL (3.8-10.6) L 04/18/18 23:15 RBC 3.11 m/uL (3.80-5.40) L 04/18/18 23:15 Hgb 10.7 gm/dL (11.4-16.0) L 04/18/18 23:15 Hct 32.8 % (34.0-46.0) L 04/18/18 23:15 MCV 105.7 fL (80.0-100.0) H 04/18/18 23:15 MCH 34.3 pg (25.0-35.0) 04/18/18 23:15 MCHC 32.5 g/dL (31.0-37.0) 04/18/18 23:15 RDW 14.7 % (11.5-15.5) 04/18/18 23:15 Plt Count 65 k/uL (150-450) L 04/18/18 23:15 Neutrophils % 83 % 04/18/18 23:15 Lymphocytes % 10 % 04/18/18 23:15 Monocytes % 4 % 04/18/18 23:15 Eosinophils % 1 % 04/18/18 23:15 Basophils % 0 % 04/18/18 23:15 Neutrophils # 2.6 k/uL (1.3-7.7) 04/18/18 23:15 Lymphocytes # 0.3 k/uL (1.0-4.8) L 04/18/18 23:15 Monocytes # 0.1 k/uL (0-1.0) 04/18/18 23:15 Eosinophils # 0.0 k/uL (0-0.7) 04/18/18 23:15 Basophils # 0.0 k/uL (0-0.2) 04/18/18 23:15 Manual Slide Review Performed 04/18/18 23:15 Hypochromasia Slight 04/18/18 23:15 Macrocytosis Moderate 04/18/18 23:15 Sodium 139 mmol/L (137-145) 04/18/18 23:15 Potassium 3.4 mmol/L (3.5-5.1) L 04/18/18 23:15 Chloride 111 mmol/L (98-107) H 04/18/18 23:15 Carbon Dioxide 23 mmol/L (22-30) 04/18/18 23:15 Anion Gap 5 mmol/L 04/18/18 23:15 BUN 12 mg/dL (7-17) 04/18/18 23:15 Creatinine 0.59 mg/dL (0.52-1.04) 04/18/18 23:15 Est GFR (CKD-EPI)AfAm >90 (>60 ml/min/1.73 sqM) 04/18/18 23:15 Est GFR (CKD-EPI)NonAf >90 (>60 ml/min/1.73 sqM) 04/18/18 23:15 Glucose 102 mg/dL (74-99) H 04/18/18 23:15 Lactic Ac Sepsis Rflx Y 04/19/18 00:06 Plasma Lactic Acid Darrius 1.8 mmol/L (0.7-2.0) 04/19/18 06:46 Calcium 7.5 mg/dL (8.4-10.2) L 04/18/18 23:15 Total Bilirubin 2.1 mg/dL (0.2-1.3) H 04/18/18 23:15 AST 26 U/L (14-36) 04/18/18 23:15 ALT 22 U/L (9-52) 04/18/18 23:15 Alkaline Phosphatase 82 U/L (38-126) 04/18/18 23:15 Ammonia 16 umol/L (<30) 04/18/18 23:15 Total Protein 5.6 g/dL (6.3-8.2) L 04/18/18 23:15 Albumin 2.2 g/dL (3.5-5.0) L 04/18/18 23:15 Amylase <30 U/L (30-110) L 04/18/18 23:15 Lipase 52 U/L (23-300) 04/18/18 23:15 Urine Color Light Brown 04/19/18 06:46 Urine Appearance Cloudy (Clear) H 04/19/18 06:46 Urine pH 6.0 (5.0-8.0) 04/19/18 06:46 Ur Specific [place] 1.038 (1.001-1.035) H 04/19/18 06:46 Urine Protein 1+ (Negative) H 04/19/18 06:46 Urine Glucose (UA) Trace (Negative) H 04/19/18 06:46 Urine Ketones 1+ (Negative) H 04/19/18 06:46 Urine Blood Negative (Negative) 04/19/18 06:46 Urine Nitrite Negative (Negative) 04/19/18 06:46 Urine Bilirubin 1+ (Negative) H 04/19/18 06:46 Urine Urobilinogen 4.0 mg/dL (<2.0) 04/19/18 06:46 Ur Leukocyte Esterase Negative (Negative) 04/19/18 06:46 Urine RBC 6 /hpf (0-5) H 04/19/18 06:46 Urine WBC 3 /hpf (0-5) 04/19/18 06:46 Ur Squamous Epith Cells 6 /hpf (0-4) H 04/19/18 06:46 Amorphous Sediment Rare /hpf (None) H 04/19/18 06:46 Urine Bacteria Occasional /hpf (None) H 04/19/18 06:46 Urine Mucus Few /hpf (None) H 04/19/18 06:46 Influenza Type A RNA Not Detected (Not Detectd) 04/19/18 07:14 Influenza Type B (PCR) Not Detected (Not Detectd) 04/19/18 07:14 CBC & Chem 7: 04/18/18 23:15 04/18/18 23:15 Labs: Abnormal Lab Results - Last 24 Hours (Table) 04/18/18 04/18/18 04/18/18 Range/Units 23:15 23:15 23:15 WBC 3.2 L (3.8-10.6) k/uL RBC 3.11 L (3.80-5.40) m/uL Hgb 10.7 L (11.4-16.0) gm/dL Hct 32.8 L (34.0-46.0) % MCV 105.7 H (80.0-100.0) fL Plt Count 65 L (150-450) k/uL Lymphocytes # 0.3 L (1.0-4.8) k/uL Potassium 3.4 L (3.5-5.1) mmol/L Chloride 111 H (98-107) mmol/L Glucose 102 H (74-99) mg/dL Plasma Lactic Acid Darrius 3.1 H* (0.7-2.0) mmol/L Calcium 7.5 L (8.4-10.2) mg/dL Total Bilirubin 2.1 H (0.2-1.3) mg/dL Total Protein 5.6 L (6.3-8.2) g/dL Albumin 2.2 L (3.5-5.0) g/dL Amylase <30 L (30-110) U/L Urine Appearance (Clear) Ur Specific [place] (1.001-1.035) Urine Protein (Negative) Urine Glucose (UA) (Negative) Urine Ketones (Negative) Urine Bilirubin (Negative) Urine RBC (0-5) /hpf Ur Squamous Epith Cells (0-4) /hpf Amorphous Sediment (None) /hpf Urine Bacteria (None) /hpf Urine Mucus (None) /hpf 04/19/18 Range/Units 06:46 WBC (3.8-10.6) k/uL RBC (3.80-5.40) m/uL Hgb (11.4-16.0) gm/dL Hct (34.0-46.0) % MCV (80.0-100.0) fL Plt Count (150-450) k/uL Lymphocytes # (1.0-4.8) k/uL Potassium (3.5-5.1) mmol/L Chloride (98-107) mmol/L Glucose (74-99) mg/dL Plasma Lactic Acid Darrius (0.7-2.0) mmol/L Calcium (8.4-10.2) mg/dL Total Bilirubin (0.2-1.3) mg/dL Total Protein (6.3-8.2) g/dL Albumin (3.5-5.0) g/dL Amylase (30-110) U/L Urine Appearance Cloudy H (Clear) Ur Specific [place] 1.038 H (1.001-1.035) Urine Protein 1+ H (Negative) Urine Glucose (UA) Trace H (Negative) Urine Ketones 1+ H (Negative) Urine Bilirubin 1+ H (Negative) Urine RBC 6 H (0-5) /hpf Ur Squamous Epith Cells 6 H (0-4) /hpf Amorphous Sediment Rare H (None) /hpf Urine Bacteria Occasional H (None) /hpf Urine Mucus Few H (None) /hpf Assessment and Plan Plan: This is a 52-year-old female who presents to hospital with sepsis most likely secondary to spontaneous bacterial peritonitis given her massive ascites. Eventual radiology has been requested to perform paracentesis and fluid studies are ordered. We will add and blood cultures to be obtained. Patient will be started on Rocephin 2 g every 12 hours. Continue supportive care. Further recommendations as patient regresses. The above dictated assessment and findings were discussed with Dr. Jacobson. The impression and plan of care have been directed as dictated. Lea Friedman nurse practitioner acting as scribe for Dr. Jacobson.
[2018-04-20 13:34] LABS: HCT 30.2 % (34.0-46.0); HGB 9.6 gm/dL (11.4-16.0); Hypochromasia Marked; MCH 34.8 pg (25.0-35.0); MCHC 31.8 g/dL (31.0-37.0); MCV 109.6 fL (80.0-100.0); Macrocytosis Marked; Mean Platelet Volume 9.4; RBC 2.76 m/uL (3.80-5.40); RDW 15.2 % (11.5-15.5); WBC 6.9 k/uL (3.8-10.6)
[2018-04-20 13:38] LABS: Platelet Count 53 k/uL (150-450)
[2018-04-20 13:50] LABS: Calcium 7.8 mg/dL (8.4-10.2); Potassium 3.9 mmol/L (3.5-5.1)
--- NOTE | 2018-04-20 14:53 | HP ---
HISTORY AND PHYSICAL CHIEF COMPLAINT: Abdominal pain, fever and chills. HISTORY OF PRESENT ILLNESS: This is another admission for this 52-year-old female has a history of hepatitis C with advanced cirrhosis and chronic ascites as well as left breast cancer which she has not allowed to be treated. HISTORY OF PRESENT ILLNESS: She came into the emergency room this time complaining of a great deal of abdominal pain and she had a fever. She has had peritonitis and it is suspected that this has redeveloped. REVIEW OF SYSTEMS: She is difficult to get a history from because she will not cooperate normally, complains of the pain. She has had no vomiting, hematemesis, melena, jaundice, hematuria, frequency, urgency, etc. Past medical history, family history, personal and social histories are all otherwise unremarkable and unchanged. She is allergic to no medications. The only thing takes is Vicodin. The remainder of her history is significant in that she still smokes. She is very noncompliant. PHYSICAL EXAM: Blood pressure is 100/64 with a pulse of 110, respirations of 38, and temperature 102.1. In general, she appeared to be pale and chronically ill. Head, ears, eyes, nose, mouth, and throat were normal. Chest demonstrated decreased breath sounds with rales and rhonchi throughout. Cardiac exam demonstrated sinus tachycardia with no murmurs or extra sounds. The abdomen is protuberant and distended with ascites and she would not allow palpation. Extremities are normal. Neurologically she is intact. She is admitted to the hospital with diagnoses. 1. Peritonitis and bacterial peritonitis. 2. Hepatitis C with end-stage cirrhosis and intractable ascites. 3. History of carcinoma of the breast. 4. Chronic obstructive pulmonary disease. PLAN: 1. Bed rest. 2. IV fluids. 3. Appropriate cultures. 4. Consult with Interventional Radiology. 5. Consult with Infectious Disease. MMODL / IJN: [id number] /
--- NOTE | 2018-04-20 15:20 | PN ---
PROGRESS NOTE DATE OF SERVICE: 04/20/2018 CHIEF COMPLAINT: Abdominal pain. HISTORY OF PRESENT ILLNESS: This lady is doing a little bit better. However, she is still complaining bitterly of the pain. Temperature has been down. PHYSICAL EXAM: Color is poor, but her usual. Chest is clear and cardiac exam is normal. The abdomen is less distended after paracentesis. IMPRESSION: 1. Rule out peritonitis. 2. Cirrhosis with intractable ascites. 3. Hepatitis C. 4. CA of the breast. 5. Chronic obstructive pulmonary disease. PLAN: Increase morphine to every 3 hours and continue with IV fluids and antibiotics. MMODL / IJN: [id number] /
--- NOTE | 2018-04-20 23:56 | P.PN ---
Subjective Progress Note Date: 04/20/18 This is a 52-year-old female who has multiple medical troubles that includes her triple negative breast carcinoma and her chronic active hepatitis C with cirrhosis and chronic refractory ascites that has required multiple admissions and multiple paracentesis. She has beem treated with Epculusa for her hepatitis C. She continues to have cirrhosis with her significant and refractory ascites that has required multiple paracentesis and is up to every other week paracentesis. Last one was done on April 08 with removal of proximal 10 L of straw-colored fluid. She was hospitalized from April 04 through April 09 and treated for intractable ascites. Patient presented to [facility] emergency center on April 19 with complaints of right lower abdominal pain with nausea, loss of appetite and fever. She believes her symptoms started yesterday. She had a bowel movement approximately 3 days ago which she states was normal and without blood or tarriness. CAT scan of the abdomen and pelvis without contrast showed massive ascites similar to old exam. Small liver consistent with cirrhosis unchanged. Splenomegaly unchanged. She is found to have a temperature max of 102.8 with other vital signs stable, white count 3.2, platelet count 65 and hemoglobin 10.7. Creatinine 0.59. Lactic acid was 3.1 and repeat 1.8. Total bilirubin is now 2.1, AST 26, ALT 22, alkaline phosphatase 82, albumin is 2.2. Ammonia level 16, influenza testing negative. Patient was provided Zosyn, morphine and 2 L of IV fluid and [facility] There is a consult in place for interventional radiology to perform paracentesis and fluid studies have been ordered including culture. Blood culture has not been obtained. Patient now states that her pain is all over her abdomen and she is very tender to touch. Patient has had previous blood cultures positive for Staphylococcus epidermidis and E. coli. 04/20/2018 patient continues to feel poorly. Abdominal pain persists. No significant fever is noted. [place] 85 white cells noted in the peritoneal fluid. Culture pending. Objective - Vital Signs Vital signs: Vital Signs Temp 98.6 F 04/20/18 23:44 Pulse 111 H 04/20/18 23:44 Resp 17 04/20/18 23:44 BP 106/55 04/20/18 23:44 Pulse Ox 95 04/20/18 23:44 Intake & Output 04/20/18 04/20/18 04/21/18 06:59 18:59 06:59 Intake Total 360 Balance 360 Intake: Intake, IV Titration 360 Amount Sodium Chloride 0.9% 1, 160 000 ml @ 20 mls/hr IV . Q24H RAFAEL Rx#:[id number] cefTRIAXone 2,000 mg In 200 Sodium Chloride 0.9% 100 ml @ 100 mls/hr IVPB Q12HR RAFAEL Rx#:[id number] Other: Voiding Method Bedside Commode # Voids 2 2 1 - Exam Cachectic 52-year-old woman who appears much older than her stated age. She is on the ER stretcher and appears to be uncomfortable secondary to abdominal pain. HEENT: Anicteric conjunctiva are pink and moist nasal mucosa grossly intact without significant lesions, there is no thrush. Edentulous Neck: The neck is supple without significant lymphadenopathy or thyromegaly. Lungs: Symmetrical air entry with expiratory wheezing but no mikayla bronchial sounds no dullness or egophony Heart: Regular rate and rhythm with an audible S1-S2, no S3 no S4. There is no significant murmur click or rub, PMI was nondisplaced. Abdomen: extensive ascites with generalized pain and tenderness. Organomegaly cannot be palpated Extremities: The upper extremities have excellent pulses they are symmetric, no significant petechiae or telangiectasia. No splinter hemorrhages were noted. Lower extremities without edema Neuro: Awake alert oriented to person place and time. - Labs CBC & Chem 7: 04/20/18 13:13 04/20/18 13:13 Labs: Abnormal Lab Results - Last 24 Hours (Table) 04/20/18 04/20/18 Range/Units 13:13 13:13 RBC 2.76 L (3.80-5.40) m/uL Hgb 9.6 L (11.4-16.0) gm/dL Hct 30.2 L (34.0-46.0) % MCV 109.6 H (80.0-100.0) fL Plt Count 53 L (150-450) k/uL BUN 30 H (7-17) mg/dL Creatinine 1.12 H (0.52-1.04) mg/dL Glucose 116 H (74-99) mg/dL Calcium 7.8 L (8.4-10.2) mg/dL Microbiology - Last 24 Hours (Table) 04/19/18 11:30 Gram Stain - Preliminary Ascites Fluid Body Fluid Culture - Preliminary 04/19/18 09:44 Blood Culture - Preliminary Blood No Growth after 24 hours 04/19/18 09:25 Blood Culture - Preliminary Blood No Growth after 24 hours Laboratory Results WBC 6.9 k/uL (3.8-10.6) 04/20/18 13:13 RBC 2.76 m/uL (3.80-5.40) L 04/20/18 13:13 Hgb 9.6 gm/dL (11.4-16.0) L 04/20/18 13:13 Hct 30.2 % (34.0-46.0) L 04/20/18 13:13 MCV 109.6 fL (80.0-100.0) H 04/20/18 13:13 MCH 34.8 pg (25.0-35.0) 04/20/18 13:13 MCHC 31.8 g/dL (31.0-37.0) 04/20/18 13:13 RDW 15.2 % (11.5-15.5) 04/20/18 13:13 Plt Count 53 k/uL (150-450) L 04/20/18 13:13 Neutrophils % 83 % 04/18/18 23:15 Lymphocytes % 10 % 04/18/18 23:15 Monocytes % 4 % 04/18/18 23:15 Eosinophils % 1 % 04/18/18 23:15 Basophils % 0 % 04/18/18 23:15 Neutrophils # 2.6 k/uL (1.3-7.7) 04/18/18 23:15 Lymphocytes # 0.3 k/uL (1.0-4.8) L 04/18/18 23:15 Monocytes # 0.1 k/uL (0-1.0) 04/18/18 23:15 Eosinophils # 0.0 k/uL (0-0.7) 04/18/18 23:15 Basophils # 0.0 k/uL (0-0.2) 04/18/18 23:15 Manual Slide Review Performed 04/18/18 23:15 Hypochromasia Marked 04/20/18 13:13 Macrocytosis Marked 04/20/18 13:13 PT 13.8 sec (9.0-12.0) H 04/19/18 09:44 INR 1.4 (<1.2) H 04/19/18 09:44 Sodium 137 mmol/L (137-145) 04/20/18 13:13 Potassium 3.9 mmol/L (3.5-5.1) 04/20/18 13:13 Chloride 107 mmol/L (98-107) 04/20/18 13:13 Carbon Dioxide 24 mmol/L (22-30) 04/20/18 13:13 Anion Gap 6 mmol/L 04/20/18 13:13 BUN 30 mg/dL (7-17) H 04/20/18 13:13 Creatinine 1.12 mg/dL (0.52-1.04) H 04/20/18 13:13 Est GFR (CKD-EPI)AfAm 65 (>60 ml/min/1.73 sqM) 04/20/18 13:13 Est GFR (CKD-EPI)NonAf 56 (>60 ml/min/1.73 sqM) 04/20/18 13:13 Glucose 116 mg/dL (74-99) H 04/20/18 13:13 Lactic Ac Sepsis Rflx Y 04/19/18 00:06 Plasma Lactic Acid Darrius 1.8 mmol/L (0.7-2.0) 04/19/18 06:46 Calcium 7.8 mg/dL (8.4-10.2) L 04/20/18 13:13 Total Bilirubin 2.1 mg/dL (0.2-1.3) H 04/18/18 23:15 AST 26 U/L (14-36) 04/18/18 23:15 ALT 22 U/L (9-52) 04/18/18 23:15 Alkaline Phosphatase 82 U/L (38-126) 04/18/18 23:15 Ammonia 16 umol/L (<30) 04/18/18 23:15 Total Protein 5.6 g/dL (6.3-8.2) L 04/18/18 23:15 Albumin 2.2 g/dL (3.5-5.0) L 04/18/18 23:15 Amylase <30 U/L (30-110) L 04/18/18 23:15 Lipase 52 U/L (23-300) 04/18/18 23:15 Urine Color Light Brown 04/19/18 06:46 Urine Appearance Cloudy (Clear) H 04/19/18 06:46 Urine pH 6.0 (5.0-8.0) 04/19/18 06:46 Ur Specific [place] 1.038 (1.001-1.035) H 04/19/18 06:46 Urine Protein 1+ (Negative) H 04/19/18 06:46 Urine Glucose (UA) Trace (Negative) H 04/19/18 06:46 Urine Ketones 1+ (Negative) H 04/19/18 06:46 Urine Blood Negative (Negative) 04/19/18 06:46 Urine Nitrite Negative (Negative) 04/19/18 06:46 Urine Bilirubin 1+ (Negative) H 04/19/18 06:46 Urine Urobilinogen 4.0 mg/dL (<2.0) 04/19/18 06:46 Ur Leukocyte Esterase Negative (Negative) 04/19/18 06:46 Urine RBC 6 /hpf (0-5) H 04/19/18 06:46 Urine WBC 3 /hpf (0-5) 04/19/18 06:46 Ur Squamous Epith Cells 6 /hpf (0-4) H 04/19/18 06:46 Amorphous Sediment Rare /hpf (None) H 04/19/18 06:46 Urine Bacteria Occasional /hpf (None) H 04/19/18 06:46 Urine Mucus Few /hpf (None) H 04/19/18 06:46 Fluid Source Ascitic 04/19/18 13:30 Fluid Color Yellow 04/19/18 13:30 Fluid Appearance Clear 04/19/18 13:30 Fluid RBC 320 /uL 04/19/18 13:30 Fluid Nucleated Cells 1085 /uL 04/19/18 13:30 Fluid Polynuclear WBCs 94 % 04/19/18 13:30 Fluid Mononuclear WBCs 6 % 04/19/18 13:30 Body Fluid Glucose Source Paracentesis Fluid 04/19/18 11:30 Fluid Glucose 62 mg/dL 04/19/18 11:30 Body Fluid Protein Source Paracentesis Fluid 04/19/18 11:30 Fluid Total Protein 938 mg/dL 04/19/18 11:30 Body Fluid LDH Source Paracentesis Fluid 04/19/18 11:30 Fluid LDH 105 U/L 04/19/18 11:30 Influenza Type A RNA Not Detected (Not Detectd) 04/19/18 07:14 Influenza Type B (PCR) Not Detected (Not Detectd) 04/19/18 07:14 Microbiology 04/19/18 11:30 Ascites Fluid Gram Stain - Preliminary 04/19/18 11:30 Ascites Fluid Body Fluid Culture - Preliminary 04/19/18 09:44 Blood Blood Culture - Preliminary No Growth after 24 hours 04/19/18 09:25 Blood Blood Culture - Preliminary No Growth after 24 hours Assessment and Plan (1) Peritonitis, acute generalized Narrative/Plan: She has noted the patient is a very complex history with cirrhosis and her extensive ascites and multiple paracentesis to control the ascites and great discomfort that she has. Patient is now presenting with elevated total bilirubin as well as a fever 102.8. Spontaneous bacterial peritonitis is of concern and the patient has had a paracentesis today and fluid was sent to telemetry for culture. Based on her history Rocephin will be utilized for now until we have further data. We'll discuss her care with a operations officer afloat as far as the utility of chronic suppressive antibiotic therapy given now her second bout of spontaneous bacterial peritonitis. 04/20/2018 patient still uncomfortable. Cultures are pending as to the pathogen of the peritonitis. Continue with current doses of Rocephin and may have the ability to change to an oral regimen depending on pathogen. With improved may do well to be a chronic prophylaxis for spontaneous bacterial peritonitis. Current Visit: Yes Status: Acute Code(s): K65.0 - GENERALIZED (ACUTE) PERITONITIS SNOMED Code(s): 39734932 (2) Cirrhosis of liver Current Visit: Yes Status: Acute Code(s): K74.60 - UNSPECIFIED CIRRHOSIS OF LIVER SNOMED Code(s): 61662600
[2018-04-21] MEDS: MORPHINE SULFATE 4 MG/ML SYRINGE IV PRN ×8 (01:38→23:35)
[2018-04-21] MEDS: SODIUM CHLORIDE 0.9% 1,000 ML IV SCH (07:39)
[2018-04-21] MEDS: cefTRIAXone 2,000 MG in SODIUM CHLORIDE 0.9% 100 ML IVPB SCH ×2 (07:39→20:22)
[2018-04-21 10:17] LABS: Anion Gap 1 mmol/L; Blood Urea Nitrogen 31 mg/dL (7-17); Calcium 7.7 mg/dL (8.4-10.2); Carbon Dioxide 27 mmol/L (22-30); Chloride 107 mmol/L (98-107); Glucose 103 mg/dL (74-99); Potassium 3.7 mmol/L (3.5-5.1); Sodium 135 mmol/L (137-145)
[2018-04-21 10:25] LABS: HCT 27.2 % (34.0-46.0); HGB 8.8 gm/dL (11.4-16.0); Hypochromasia Moderate; MCH 34.9 pg (25.0-35.0); MCHC 32.2 g/dL (31.0-37.0); MCV 108.4 fL (80.0-100.0); Macrocytosis Marked; Mean Platelet Volume 9.6; RBC 2.51 m/uL (3.80-5.40); RDW 15.2 % (11.5-15.5); WBC 5.1 k/uL (3.8-10.6)
[2018-04-21 10:34] LABS: Platelet Count 45 k/uL (150-450)
--- NOTE | 2018-04-21 14:52 | PN ---
PROGRESS NOTE CHIEF COMPLAINT: Peritonitis. HISTORY OF PRESENT ILLNESS: This lady is doing better. Her pain is improving. Temperature has been down. PHYSICAL EXAMINATION: She does not allow an inadequate exam. Chest is clear. Cardiac exam is normal. IMPRESSION: 1. Peritonitis. 2. Hepatitis C with cirrhosis and intractable ascites. 3. CA of the breast. PLAN: Continue with IV antibiotics. When she is switched over to oral, she will be able to be discharged. MMODL / IJN: [id number] /
[2018-04-21] MEDS: CALCIUM CARBONATE 500 MG CHEWABLE PO PRN (15:02)
[2018-04-22] MEDS: MORPHINE SULFATE 4 MG/ML SYRINGE IV PRN ×7 (02:39→21:29)
[2018-04-22] MEDS: CALCIUM CARBONATE 500 MG CHEWABLE PO PRN (06:30)
[2018-04-22] MEDS: SODIUM CHLORIDE 0.9% 1,000 ML IV SCH (07:17)
[2018-04-22] MEDS: cefTRIAXone 2,000 MG in SODIUM CHLORIDE 0.9% 100 ML IVPB SCH ×2 (07:25→21:20)
[2018-04-22] MEDS ORDERED: TEMAZEPAM 15 MG CAP PO PRN (20:45)
--- NOTE | 2018-04-22 22:31 | PN ---
PROGRESS NOTE DATE OF SERVICE: 04/22/2018 I am covering for Dr. Estrada. This 52-year-old woman who was admitted with abdominal pain, peritonitis, also had history of hepatitis C and history of CA breast also. Dr. Jacobson is also following the patient closely. Cultures are negative so far. Patient on broad spectrum IV antibiotics. Patient is complaining of severe abdominal pain at this time. Abdominal paracentesis by the internal Radiology during the present admission and about 10.5 L of straw-colored fluid was obtained. An abdominal pelvis CAT scan was done during the present admission, which showed massive ascites, small liver with cirrhosis and renal calculus. PAST MEDICAL HISTORY: Reviewed. REVIEW OF SYSTEMS: CARDIOVASCULAR: No angina or palpitations. RESPIRATORY: As mentioned earlier. GASTROINTESTINAL: As mentioned earlier. : No dysuria. CENTRAL NERVOUS SYSTEM: No numbness or weakness. MUSCULOSKELETAL: As mentioned earlier. CURRENT MEDICATIONS ARE: Reviewed and include: 1. Tums 1000 mg daily. 2. Rocephin 2 grams b.i.d. 3. Morphine sulfate p.r.n. 4. Narcan. 5. P.r.n. medications. PHYSICAL EXAM: Patient is alert, oriented x2. Pulse is 82, blood pressure 94/50, respiration 18, temperature 97.8, pulse ox 94% on room air. HEENT: Conjunctivae normal. NECK: No jugular venous distention. CARDIOVASCULAR: S1, S2. RESPIRATORY: Breath sounds diminished in the bases. A few scattered rhonchi. ABDOMEN: Soft. Ascites present. Mild diffuse tenderness. No guarding. No rigidity. No mass palpable. LEGS: No edema. No swelling. CENTRAL NERVOUS SYSTEM: No focal deficits. LAB STUDIES: WBC 5.1, hemoglobin 8.8, platelets are 45. Sodium is 135. The ascitic tap shows polynucleated WBCs 94. Glucose is 62 and LFTs showed normal AST, ALT. Lactic acid was 3.1. Total bilirubin is 2.1. UA was noted. Influenza is negative. ASSESSMENT: 1. Abdominal pain with possible acute spontaneous bacterial peritonitis. 2. Cirrhosis of liver secondary to hepatitis C and intractable ascites. 3. History of carcinoma of the breast. 4. Elevated lactic acid, present on admission. 5. Hypokalemia. 6. Anemia macrocytic secondary to cirrhosis of the liver. 7. Thrombocytopenia secondary to cirrhosis. 8. Coagulopathy secondary to cirrhosis of liver. 9. History of chronic obstructive pulmonary disease. 10.History of gastroesophageal reflux disease. 11.History of adenoidectomy, tonsillectomy. 12.History of anxiety. 13.History of nicotine dependence, continued, ongoing. RECOMMENDATIONS AND DISCUSSION: In this 52-year-old woman who presented with multiple complex medical issues, we will monitor the patient closely, continue the current medications, management and symptomatic treatment. Continue the IV antibiotics. We will follow the cultures closely. DVT prophylaxis. Continue the rest of medications and prognosis guarded because of multiple complex medical issues. Further recommendations to follow. See orders for details. MMODL / IJN: [id number] /
[2018-04-23] MEDS: MORPHINE SULFATE 4 MG/ML SYRINGE IV PRN ×7 (02:00→21:15)
[2018-04-23] MEDS: CALCIUM CARBONATE 500 MG CHEWABLE PO PRN (03:18)
[2018-04-23] MEDS: PANTOPRAZOLE 40 MG TABLET PO SCH (07:24)
[2018-04-23] MEDS: cefTRIAXone 2,000 MG in SODIUM CHLORIDE 0.9% 100 ML IVPB SCH ×2 (08:11→21:14)
[2018-04-23] MEDS: SODIUM CHLORIDE 0.9% 1,000 ML IV SCH (08:12)
[2018-04-23 08:51] LABS: Anion Gap 4 mmol/L; Blood Urea Nitrogen 18 mg/dL (7-17); Carbon Dioxide 26 mmol/L (22-30); Chloride 106 mmol/L (98-107); Glucose 93 mg/dL (74-99); Potassium 4.1 mmol/L (3.5-5.1); Sodium 136 mmol/L (137-145)
[2018-04-23 09:11] LABS: Basophils % (A) 0 %; Eosinophils # (A) 0.2 k/uL (0-0.7); Eosinophils % (A) 5 %; HCT 30.4 % (34.0-46.0); HGB 9.4 gm/dL (11.4-16.0); Hypochromasia Slight; Lymphocytes # (A) 0.7 k/uL (1.0-4.8); Lymphocytes % (A) 21 %; MCHC 30.9 g/dL (31.0-37.0); MCV 106.9 fL (80.0-100.0); Macrocytosis Moderate; Monocytes # (A) 0.3 k/uL (0-1.0); Monocytes % (A) 9 %; Neutrophils % (A) 61 %; RBC 2.84 m/uL (3.80-5.40); RDW 15.5 % (11.5-15.5); WBC 3.4 k/uL (3.8-10.6)
[2018-04-23 09:12] LABS: Platelet Count 66 k/uL (150-450)
[2018-04-23] MEDS: ONDANSETRON 4 MG/2 ML VIAL IVP PRN (12:17)
[2018-04-23] MEDS: HYDROCORTISONE 1% CREAM 454 GM JAR TOPICAL SCH ×2 (12:38→21:19)
--- NOTE | 2018-04-23 18:40 | P.PN ---
Subjective Progress Note Date: 04/23/18 Progress note being dictated for Dr. Richardson Interval history: This a 52-year-old female admitted with abdominal pain with possible acute spontaneous bacterial peritonitis, liver cirrhosis, hepatitis C and multiple other medical issues. Cultures in progress .Maintained on IV antibiotics of Rocephin as per infectious disease. Afebrile, WBC 3.4. Objective - Vital Signs Vital signs: Vital Signs Temp 97.7 F 04/23/18 14:13 Pulse 86 04/23/18 14:13 Resp 18 04/23/18 14:13 BP 115/66 04/23/18 14:13 Pulse Ox 98 04/23/18 14:13 Intake & Output 04/22/18 04/23/18 04/23/18 18:59 06:59 18:59 Intake Total 1000 1200 Balance 1000 1200 Weight 77.111 kg Intake: Oral 1000 1200 Other: Voiding Method Toilet Toilet # Voids 3 3 2 - Exam PHYSICAL EXAM: VITAL SIGNS: As above GENERAL: Sitting up in bed, no acute distress, alert and oriented 2 HEENT: Conjunctivae normal. eyes normal. Oral mucosa moist NECK: No JVD. No thyroid enlargement. No LNs CARDIOVASCULAR: S1, S2 muffled. No murmur RESPIRATION: Breath sounds diminished in the bases. Few scattered rhonchi, no crackles, no wheezes. ABDOMEN: Soft, mild diffuse tenderness, ascites present. No guarding. no masses palpable.Bowel sounds heard. LEGS: No edema. no swelling NERVOUS SYSTEM: Moves all 4 limbs. Diffuse weakness No focal deficits. Microbiology 04/19/18 09:44 Blood Blood Culture - Preliminary No Growth after 96 hours 04/19/18 09:25 Blood Blood Culture - Preliminary No Growth after 96 hours 04/19/18 11:30 Ascites Fluid Gram Stain - Preliminary 04/19/18 11:30 Ascites Fluid Body Fluid Culture - Preliminary - Labs CBC & Chem 7: 04/23/18 08:19 04/23/18 08:19 Labs: Abnormal Lab Results - Last 24 Hours (Table) 04/23/18 04/23/18 Range/Units 08:19 08:19 WBC 3.4 L (3.8-10.6) k/uL RBC 2.84 L (3.80-5.40) m/uL Hgb 9.4 L (11.4-16.0) gm/dL Hct 30.4 L (34.0-46.0) % MCV 106.9 H (80.0-100.0) fL MCHC 30.9 L (31.0-37.0) g/dL Plt Count 66 L (150-450) k/uL Lymphocytes # 0.7 L (1.0-4.8) k/uL Sodium 136 L (137-145) mmol/L BUN 18 H (7-17) mg/dL Calcium 8.0 L (8.4-10.2) mg/dL Microbiology - Last 24 Hours (Table) 04/19/18 09:44 Blood Culture - Preliminary Blood No Growth after 96 hours 04/19/18 09:25 Blood Culture - Preliminary Blood No Growth after 96 hours 04/19/18 11:30 Gram Stain - Preliminary Ascites Fluid Body Fluid Culture - Preliminary Assessment and Plan Assessment: -Abdominal pain possible acute spontaneous bacterial peritonitis -Liver cirrhosis secondary to hepatitis C and intractable ascites -History of carcinoma of the breast -Anemia, macrocytic secondary to liver cirrhosis -Thrombocytopenia secondary to cirrhosis -Coagulopathy secondary to liver cirrhosis -Continued ongoing nicotine dependence Plan: Continue on current medication regime ,monitoring and symptomatic treatment. Close monitoring of LFTs, bili with repeat labs ordered for a.m. Follow cultures closely with antibiotics as per infectious disease. The impression and plan of care has been dictated as directed. : I performed a history and examination of this patient, discussed the same with the dictator. I agree with the dictator's note ,documented as a scribe. Any additional findings or plans will be noted.
[2018-04-24] MEDS: MORPHINE SULFATE 4 MG/ML SYRINGE IV PRN ×6 (00:21→21:56)
[2018-04-24] MEDS: cefTRIAXone 2,000 MG in SODIUM CHLORIDE 0.9% 100 ML IVPB SCH ×2 (08:05→21:40)
[2018-04-24] MEDS: PANTOPRAZOLE 40 MG TABLET PO SCH (08:05)
[2018-04-24] MEDS: SODIUM CHLORIDE 0.9% 1,000 ML IV SCH (08:06)
[2018-04-24] MEDS: HYDROCORTISONE 1% CREAM 454 GM JAR TOPICAL SCH ×2 (08:06→21:42)
[2018-04-24] MEDS: ONDANSETRON 4 MG/2 ML VIAL IVP PRN (08:17)
[2018-04-24 09:45] LABS: Anion Gap 4 mmol/L; Blood Urea Nitrogen 16 mg/dL (7-17); Calcium 8.1 mg/dL (8.4-10.2); Carbon Dioxide 27 mmol/L (22-30); Chloride 106 mmol/L (98-107); Glucose 98 mg/dL (74-99); Sodium 137 mmol/L (137-145)
[2018-04-24 10:09] LABS: Basophils % (A) 1 %; Eosinophils # (A) 0.2 k/uL (0-0.7); Eosinophils % (A) 6 %; HCT 29.7 % (34.0-46.0); HGB 9.4 gm/dL (11.4-16.0); Hypochromasia Moderate; Lymphocytes # (A) 0.9 k/uL (1.0-4.8); Lymphocytes % (A) 29 %; MCH 34.1 pg (25.0-35.0); MCHC 31.6 g/dL (31.0-37.0); MCV 107.8 fL (80.0-100.0); Macrocytosis Marked; Mean Platelet Volume 9.4; Monocytes # (A) 0.3 k/uL (0-1.0); Monocytes % (A) 10 %; Neutrophils # (A) 1.5 k/uL (1.3-7.7); Neutrophils % (A) 52 %; RBC 2.75 m/uL (3.80-5.40); RDW 15.3 % (11.5-15.5)
[2018-04-24 10:17] LABS: Platelet Count 52 k/uL (150-450)
[2018-04-24] MEDS: HYDROcodone/APAP 5-325MG 1 EACH TAB PO PRN ×2 (10:47→17:32)
[2018-04-24] MEDS ORDERED: POLYETHYLENE GLYCOL 3350 17 GM POWD.PACK PO STA (14:38)
--- NOTE | 2018-04-24 20:06 | PN ---
PROGRESS NOTE DATE OF SERVICE: 04/24/2018 I am covering for Dr. Estrada. This 52-year-old woman who was admitted with abdominal pain, possible spontaneous bacterial peritonitis, is being closely monitored. No chest pain. No palpitations. No fever. The patient also having cirrhosis of liver, also. PHYSICAL EXAM: Alert and oriented x3. Pulse is 89. Blood pressure 104/68, respiration 20, temperature 97.4, pulse ox 97 percent on room air. HEENT: Conjunctivae normal. Oral mucosa moist. Neck is no jugular venous distention. No carotid bruit. No lymph node enlargement. CARDIOVASCULAR: S1, S2 muffled. RESPIRATORY: Breath sounds diminished in the bases. A few scattered rhonchi. ABDOMEN: Soft. Ascites present. No guarding. No rigidity. No mass palpable. LEGS: No edema. No swelling. CENTRAL NERVOUS SYSTEM: No focal deficits. LAB STUDIES: At this time shows WBC ntd, hemoglobin is 10.4, platelets of 52. ASSESSMENT: 1. Abdominal pain secondary to possibly acute spontaneous bacterial peritonitis on IV antibiotics. 2. Liver cirrhosis secondary to hepatitis C and intractable ascites. 3. History of carcinoma of the breast. 4. Anemia macrocytic secondary to liver cirrhosis. 5. Mild pancytopenia secondary to liver cirrhosis. 6. Coagulopathy secondary to liver cirrhosis. 7. Continued ongoing nicotine dependence. RECOMMENDATIONS AND DISCUSSION: Recommend to continue current medications, management. Symptomatic treatment. Continue with antibiotics. Continue the pain medications. Repeat labs. Closely monitor. Prognosis guarded. Further recommendations to follow. Will await cultures. MMODL / IJN: [id number] / MTDD
[2018-04-25] MEDS: HYDROcodone/APAP 5-325MG 1 EACH TAB PO PRN ×4 (00:06→21:42)
[2018-04-25] MEDS: MORPHINE SULFATE 4 MG/ML SYRINGE IV PRN ×3 (04:43→18:57)
[2018-04-25] MEDS: PANTOPRAZOLE 40 MG TABLET PO SCH (08:21)
[2018-04-25] MEDS: cefTRIAXone 2,000 MG in SODIUM CHLORIDE 0.9% 100 ML IVPB SCH ×2 (08:25→21:52)
[2018-04-25] MEDS: SODIUM CHLORIDE 0.9% 1,000 ML IV SCH (08:26)
[2018-04-25] MEDS: HYDROCORTISONE 1% CREAM 454 GM JAR TOPICAL SCH ×2 (08:27→21:51)
[2018-04-25 10:09] LABS: Anion Gap 2 mmol/L; Blood Urea Nitrogen 14 mg/dL (7-17); Calcium 7.7 mg/dL (8.4-10.2); Carbon Dioxide 28 mmol/L (22-30); Chloride 105 mmol/L (98-107); Glucose 107 mg/dL (74-99); Potassium 4.3 mmol/L (3.5-5.1); Sodium 135 mmol/L (137-145)
[2018-04-25 10:13] LABS: HCT 27.5 % (34.0-46.0); HGB 8.5 gm/dL (11.4-16.0); Hypochromasia Moderate; MCH 33.3 pg (25.0-35.0); MCHC 30.7 g/dL (31.0-37.0); MCV 108.3 fL (80.0-100.0); Macrocytosis Marked; Mean Platelet Volume 9.1; RBC 2.54 m/uL (3.80-5.40); RDW 15.8 % (11.5-15.5); WBC 2.3 k/uL (3.8-10.6)
[2018-04-25 10:36] LABS: Platelet Count 54 k/uL (150-450)
[2018-04-25 12:36] LABS: Band Neutrophils % 1 %; Eosinophils # (M) 0.09 k/uL (0-0.7); Lymphocytes # (M) 0.44 k/uL (1.0-4.8); Monocytes # (M) 0.44 k/uL (0-1.0); Neutrophils % (M) 57 %; Nucleated Red Blood Cells 0 /100 WBC (0-0); Total Cells Counted 100
--- NOTE | 2018-04-25 14:33 | XR ---
EXAMINATION TYPE: XR foot complete RT DATE OF EXAM: 04/25/2018 COMPARISON: NONE HISTORY: Right foot pain TECHNIQUE: 3 views FINDINGS: There is soft tissue swelling of the foot. Metatarsals appear intact. I see no fracture nor dislocation. There are no erosions. Joint spaces are fairly normal. IMPRESSION: Soft tissue swelling. No displaced fracture seen.
--- NOTE | 2018-04-25 17:53 | PN ---
PROGRESS NOTE DATE OF SERVICE: 04/25/2018 I am covering for Dr. Estrada. This 52-year-old woman who was admitted with abdominal pain secondary to spontaneous bacterial peritonitis is being closely monitored. Patient also had some foot pain and foot x-ray done today showed only soft tissue swelling. No chest pain. No palpitation. PHYSICAL EXAM: Alert and oriented x3. Pulse is 85. Blood pressure 130/60, respiratory rate 16, temperature 98.1, pulse ox 98% on room air. HEENT: Conjunctivae normal. Oral mucosa moist. Neck is no jugular venous distention. No carotid bruit. CARDIOVASCULAR SYSTEM: S1, S2. RESPIRATIONS: Breath sounds diminished in the bases. A few scattered rhonchi. ABDOMEN: Soft, ascites present. Which is increasing but not tense. Mild diffuse tenderness present. No guarding. No rigidity. NERVOUS SYSTEM: No focal deficits. LABS: WBC 2.7, hemoglobin is 8.5, platelets of 54. Sodium 135. ASSESSMENT: 1. Abdominal pain secondary to possibly acute spontaneous bacterial peritonitis on IV antibiotics. 2. Liver cirrhosis secondary to hepatitis C and intractable ascites. 3. History of carcinoma of the breast. 4. Anemia macrocytic secondary to liver cirrhosis. 5. Mild pancytopenia secondary to liver cirrhosis. 6. Coagulopathy secondary to liver cirrhosis. 7. Continued ongoing nicotine dependence. RECOMMENDATIONS AND DISCUSSION: Recommend to continue current medications, management and symptomatic treatment. Continue the pain medication. Continue the antibiotics. Closely follow. The cultures are negative so far. Further recommendations to follow. Increase ambulation. MMODL / IJN: [id number] /
[2018-04-26] MEDS: MORPHINE SULFATE 4 MG/ML SYRINGE IV PRN (00:49)
[2018-04-26 08:25] VITALS: BP 108/64; PULSE 83; RESP 16; TEMP 97.9
[2018-04-26] MEDS: SODIUM CHLORIDE 0.9% 1,000 ML IV SCH (10:01)
[2018-04-26] MEDS: PANTOPRAZOLE 40 MG TABLET PO SCH (10:05)
[2018-04-26] MEDS: HYDROcodone/APAP 5-325MG 1 EACH TAB PO PRN (10:05)
[2018-04-26] MEDS: HYDROCORTISONE 1% CREAM 454 GM JAR TOPICAL SCH (10:06)
[2018-04-26 12:08] LABS: HCT 26.2 % (34.0-46.0); HGB 8.3 gm/dL (11.4-16.0); Hypochromasia Marked; MCH 35.1 pg (25.0-35.0); MCHC 31.8 g/dL (31.0-37.0); MCV 110.5 fL (80.0-100.0); Macrocytosis Marked; Mean Platelet Volume 8.9; RBC 2.37 m/uL (3.80-5.40); RDW 15.8 % (11.5-15.5); WBC 2.3 k/uL (3.8-10.6)
[2018-04-26 12:14] LABS: Platelet Count 53 k/uL (150-450)
[2018-04-26 12:30] LABS: Anion Gap 3 mmol/L; Blood Urea Nitrogen 15 mg/dL (7-17); Calcium 7.6 mg/dL (8.4-10.2); Carbon Dioxide 25 mmol/L (22-30); Chloride 107 mmol/L (98-107); Glucose 111 mg/dL (74-99); Potassium 4.1 mmol/L (3.5-5.1); Sodium 135 mmol/L (137-145)
[2018-04-26 14:07] LABS: Basophils # (M) 0.02 k/uL (0-0.2); Eosinophils # (M) 0.16 k/uL (0-0.7); Lymphocytes # (M) 0.39 k/uL (1.0-4.8); Monocytes # (M) 0.25 k/uL (0-1.0); Neutrophils # (M) 1.47 k/uL (1.3-7.7); Neutrophils % (M) 64 %; Nucleated Red Blood Cells 0 /100 WBC (0-0); Total Cells Counted 100
[2018-04-26 14:08] LABS: Poikilocytosis (M) Present
--- NOTE | 2018-04-26 16:44 | P.DS ---
Providers Date of admission: 04/19/18 06:55 Expected date of discharge: 04/26/18 Attending physician: Mark Rendon Consults: 04/19/18 06:56 Consult Physician Urgent Consulting Provider: Henry Jacobson Consult Reason/Comments: Fever. Possible peritonitis Do you want consulting provider notified?: Yes Primary care physician: Mark Estrada Hospital Course: Final Diagnoses: -Abdominal pain possible acute spontaneous bacterial peritonitis,though Paracentesis fluid, Polynuclear less than 250. -Liver cirrhosis secondary to hepatitis C and intractable ascites, follow-up with GI outpatient -History of carcinoma of the breast -Anemia, macrocytic secondary to liver cirrhosis -Thrombocytopenia secondary to cirrhosis -Coagulopathy secondary to liver cirrhosis -Continued ongoing nicotine dependence Hospital course:This a 52-year-old female admitted with abdominal pain with possible acute spontaneous bacterial peritonitis, liver cirrhosis, hepatitis C and multiple other medical issues. Maintained on IV antibiotics of Rocephin as per infectious disease. Cultures negative. Paracentesis fluid, Polynuclear less than 250. Upon discharge patient to follow-up with GI. Aldactone and Lasix added to discharge medications. Patient has been cleared for discharge by infectious disease. Patient is being discharged home in a stable condition with guarded prognosis. EXAM: GENERAL: Alert and oriented 3, no acute distress CARDIOVASCULAR: S1, S2 muffled. No murmur RESPIRATION: Breath sounds diminished in the bases. ABDOMEN: Soft, distended, nontender, ascites present. No guarding. no masses palpable.Bowel sounds heard. NERVOUS SYSTEM: No focal deficits. The impression and plan of care has been dictated as directed. : I performed a history and examination of this patient, discussed the same with the dictator. I agree with the dictator's note ,documented as a scribe. Any additional findings or plans will be noted. Time taken: 35 minutes Patient Condition at Discharge: Stable Plan - Discharge Summary Discharge Rx Participant: No New Discharge Prescriptions: New Furosemide [Lasix] 40 mg PO DAILY #30 tablet Spironolactone [Aldactone] 25 mg PO BID #60 tablet No Action HYDROcodone/APAP 10-325MG [[place] 10-325] 1 tab PO Q4H PRN PRN Reason: Pain Discharge Medication List HYDROcodone/APAP 10-325MG [[place] 10-325] 1 tab PO Q4H PRN 04/05/18 [History] Furosemide [Lasix] 40 mg PO DAILY #30 tablet 04/26/18 [Rx] Spironolactone [Aldactone] 25 mg PO BID #60 tablet 04/26/18 [Rx] Follow up Appointment(s)/Referral(s): Mark Estrada MD [Primary Care Provider] - 05/03/18 11:30 am Cyndi Botello MD [STAFF PHYSICIAN] - 05/11/18 3:30 pm (for prophylactic treatment of SBP) Ambulatory/Diagnostic Orders: Comprehensive Metabolic Panel [LAB.AMB] Time Frame: 3 Days, Location: None Selected Patient Instructions/Handouts: Urinary Tract Infection in Women (DC) Activity/Diet/Wound Care/Special Instructions: Cardiac diet. Activity as tolerated. Smoking cessation information given. Continue to schedule paracentisis as an outpatient. follow up with printed circuit board designer post discharge for prophylactic treatments. Discharge Disposition: HOME SELF-CARE
--- NOTE | 2018-04-27 20:10 | CDI ---
Documentation Clarification Form Date: 04-27-18 From: Claudette Pardo Phone: If you have question, contact Jana Galeana at [phone] M-F 8:30 am to 6pm. Admit Date: 04/19/2018 6:55:00 AM Patient Name: Lori Barakat Visit Number: [id number] Discharge Date: 04/26/2018 4:30:00 PM ATTENTION: The Clinical Documentation Specialists (CDI) and [facility] Coding Staff appreciate your assistance in clarifying documentation. Please respond to the clarification below the line at the bottom and electronically sign. The CDI & [facility] Coding staff will review the response and follow-up if needed. Please note: Queries are made part of the Legal Health Record. If you have any questions, please contact the author of this message via ITS. Dr. Mark Estrada The patient presented to the hospital with abdominal pain and fever. She is diagnosed with bacterial peritonitis. WBC: 3.2 Lactic acid: 3.1 Vitals signs on admission: T 102.8, P 96, RR 22, BP 142/82 Other Clinical Indicators: Treatment: IV Rocephin Per the Consult 04/19 presents to the hospital with sepsis most likely secondary to spontaneous bacterial peritonitis. There is no further documentation of sepsis past this date. Further clarification of this diagnosis is needed for proper reporting purposes. In your professional opinion, please clarify if these findings signify one of the following conditions: Condition Sepsis ruled out Sepsis ruled in Severe Sepsis Septic Shock Other, please specify Unable to determine MTDD
--- NOTE | 2018-05-08 18:34 | MISC ---
MISCELLANOUS REPORT Sepsis ruled out. MMODL / IJN: [id number] /
--- NOTE | 2018-05-10 16:15 | DS ---
DISCHARGE SUMMARY DATE OF ADMISSION: April 19, 2018 DATE OF DISCHARGE: April 23, 2018. CHIEF COMPLAINTS: Abdominal pain, cirrhosis and intractable ascites. HISTORY OF PRESENT ILLNESS AND PHYSICAL EXAM: Details of this lady's history and physical can be found in the initial workup. COURSE IN HOSPITAL: After admission, she was placed on bedrest, started on intravenous fluids and seen and followed by Infectious Disease. It is felt that she may have had a peritonitis. As she was treated, pain began to subside. She continued to do well. She was stable enough to be discharged on April 23 and she will follow up in the office. FINAL DIAGNOSES: 1. Abdominal pain. 2. Peritonitis. 3. Cirrhosis. 4. Hepatitis C. 5. Intractable ascites. 6. Carcinoma of the left breast. OPERATIONS: None. CONSULTATIONS: Infectious Disease and Interventional Radiology. She is improved. MMODL / IJN: [id number] /
--- NOTE | 2018-05-10 16:30 | DS ---
DISCHARGE SUMMARY DATE OF DISCHARGE: 04/26/2018. CHIEF COMPLAINT: Abdominal pain and fever. HISTORY OF PRESENT ILLNESS/PHYSICAL EXAM: Details of this lady's history and physical can be found in the initial workup. LABORATORY STUDIES: While she was in a hospital she had laboratory studies, details of which can be found laboratory section of her chart. COURSE IN HOSPITAL: After admission, she was placed on bedrest and started on intravenous fluids and analgesics for presumed peritonitis. She steadily improved and was doing well and it was felt she could be discharged on the . She will be followed up as an outpatient. FINAL DIAGNOSES: 1. Peritonitis. 2. Intractable ascites. 3. Cirrhosis. 4. Hepatitis C. 5. Carcinoma of the left breast. OPERATIONS: None. CONSULTATIONS: Infectious Disease. She is improved. MMODL / IJN: [id number] /
== END 2018-04-26 16:30 | disposition home or self-care (01) | DRG 372 ==
LOC: EC 22:58 → 4MS4W 04-19 06:55
PROVIDERS: ADMIT Family Medicine; ATTEND Family Medicine
PROC: 0W9G3ZZ Drainage of Peritoneal Cavity, Percutaneous Approach (ICD-10-PCS; principal; 2018-04-19)
DX: K65.2 Spontaneous bacterial peritonitis (principal); D61.818 Other pancytopenia; D68.4 Acquired coagulation factor deficiency; R18.8 Other ascites; B96.89 Other specified bacterial agents as the cause of diseases classified elsewhere; K21.9 Gastro-esophageal reflux disease without esophagitis; J44.9 Chronic obstructive pulmonary disease, unspecified; C50.912 Malignant neoplasm of unspecified site of left female breast; H91.90 Unspecified hearing loss, unspecified ear; I10 Essential (primary) hypertension; E87.6 Hypokalemia; B18.2 Chronic viral hepatitis C; K74.60 Unspecified cirrhosis of liver; F17.200 Nicotine dependence, unspecified, uncomplicated; Z91.19 Patient's noncompliance with other medical treatment and regimen; Z71.6 Tobacco abuse counseling; Z86.19 Personal history of other infectious and parasitic diseases; Z80.1 Family history of malignant neoplasm of trachea, bronchus and lung; Z82.49 Family history of ischemic heart disease and other diseases of the circulatory system
CPT/HCPCS: 36415; 49083; 74176; 80048; 80053; 81001; 82140; 82150; 82945; 83605; 83615; 83690; 84157; 85025; 85027; 85049; 85610; 87040; 87070; 87205; 87502; 89050; 96365; 96366; 96375; 96376; 99285

== ENCOUNTER 2018-05-16 10:13 | Observation (INO) | payer MEDICARE, OTHER ==
[2018-05-16] MEDS ORDERED: HYDROmorphone 1 MG/ML 1 ML SYRINGE IVP STA (10:35)
--- NOTE | 2018-05-16 10:38 | ED ---
General Adult HPI - General Chief complaint: Abdominal Pain Stated complaint: Stomach pain Time Seen by Provider: 05/16/18 10:15 Source: patient, RN notes reviewed Mode of arrival: ambulatory Limitations: no limitations - History of Present Illness Initial comments: This is a 52-year-old female presents emergency Department with a past medical history significant for liver failure as well as ascites. She states she's had at least 20 paracentesis is in the past. Patient states every time her abdomen gets to the size she started having significant abdominal pain. Patient states she is scheduled for paracentesis tomorrow but the pain got too severe so she decided come to the emergency department. Patient states this pain is no different than any other pain she's had one her paracentesis is due. Patient denies any fever chills per patient denies any vomiting or diarrhea. Patient states she does have a past history of breast cancer as well. Patient denies any chest pain difficulty breathing or shortness of breath per patient denies any recent fall or trauma. Patient denies any headache patient denies numbness weakness. Patient denies any lightheadedness dizziness or near syncopal episode. - Related Data Home Medications Medication Instructions Recorded Confirmed HYDROcodone/APAP 10-325MG [[place] 1 tab PO Q4H PRN 04/05/18 05/16/18 10-325] Allergies Allergy/AdvReac Type Severity Reaction Status Date / Time No Known Allergies Allergy Verified 05/16/18 10:32 Review of Systems ROS Statement: Those systems with pertinent positive or pertinent negative responses have been documented in the HPI. ROS Other: All systems not noted in ROS Statement are negative. Past Medical History Past Medical History: Cancer, COPD, GERD/Reflux, GI Bleed, Hearing Disorder / Deafness, Hypertension, Liver Disease Additional Past Medical History / Comment(s): Hepatitis C, intractable ascities with multiple paracentesis, cirrhosis, peritonitis, pancytopenia, vertigo; "benign abd mass", multiple upper GI bleeds, esophageal varicies/esophageal banding, left breast cancer had chemo last on 09-12-16-did not tolerate-completed only 3 cycles-then it was stopped/no surgery, lt ear hearing loss. History of Any Multi-Drug Resistant Organisms: None Reported Past Surgical History: Adenoidectomy, Tonsillectomy Additional Past Surgical History / Comment(s): Multiple paracentesises, EGDs, esophageal banding, right chest mediport 5-17, l breast bx., Past Anesthesia/Blood Transfusion Reactions: No Reported Reaction Additional Past Anesthesia/Blood Transfusion Reaction / Comment(s): blood transfusions- no reaction Past Psychological History: Anxiety Smoking Status: Current every day smoker Past Alcohol Use History: None Reported Past Drug Use History: None Reported - Past Family History Mother Family Medical History: Cancer Additional Family Medical History / Comment(s): of lung ca at the age of 59yrs. She was a smoker. Father Family Medical History: Myocardial Infarction ([place]) Additional Family Medical History / Comment(s): from 2nd heart attack at the age of 59yrs. General Exam - General Exam Comments Initial Comments: GENERAL: Patient is well-developed and well-nourished. Patient is nontoxic and well- hydrated and is in moderate distress. ENT: Neck is soft and supple. No significant lymphadenopathy is noted. Oropharynx is clear. Moist mucous membranes. Neck has full range of motion without eliciting any pain. EYES: The sclera were anicteric and conjunctiva were pink and moist. Extraocular movements were intact and pupils were equal round and reactive to light. Eyelids were unremarkable. PULMONARY: Unlabored respirations. Good breath sounds bilaterally. No audible rales rhonchi or wheezing was noted. CARDIOVASCULAR: There is a regular rate and rhythm without any murmurs gallops or rubs. Patient has a port on the right side which is very tender to palpation she states this is chronic. ABDOMEN: Abdomen is diffusely tender and appears to be distended from ascites. SKIN: Skin is clear with no lesions or rashes and otherwise unremarkable. NEUROLOGIC: Patient is alert and oriented x3. Cranial nerves II through XII are grossly intact. Motor and sensory are also intact. Normal speech, volume and content. Symmetrical smile. MUSCULOSKELETAL: Normal extremities with adequate strength and full range of motion. No lower extremity swelling or edema. No calf tenderness. LYMPHATICS: No significant lymphadenopathy is noted PSYCHIATRIC: Normal psychiatric evaluation. Limitations: no limitations Course Vital Signs 05/16/18 05/16/18 05/16/18 10:14 12:09 12:27 Temperature 98.1 F Pulse Rate 102 H 85 88 Respiratory 20 18 18 Rate Blood Pressure 137/79 121/74 121/74 O2 Sat by Pulse 96 100 96 Oximetry Medical Decision Making - Medical Decision Making After patient received pain medication she was feeling better but still had significant pain. I spoke with Dr. Pandey and since the patient was already scheduled for paracentesis tomorrow we will bring her in for abdominal pain and keep her pain under control until she gets a paracentesis tomorrow. I wrote admitting orders. - Lab Data Result diagrams: 05/16/18 11:00 05/16/18 11:00 Lab Results 05/16/18 05/16/18 05/16/18 Range/Units 11:00 11:00 11:00 WBC 1.8 L (3.8-10.6) k/uL RBC 2.46 L (3.80-5.40) m/uL Hgb 8.6 L (11.4-16.0) gm/dL Hct 25.6 L (34.0-46.0) % MCV 104.1 H D (80.0-100.0) fL MCH 34.9 (25.0-35.0) pg MCHC 33.5 (31.0-37.0) g/dL RDW 15.3 (11.5-15.5) % Plt Count 106 L D (150-450) k/uL Neutrophils % 55 % Lymphocytes % 29 % Monocytes % 9 % Eosinophils % 4 % Basophils % 0 % Neutrophils # 1.0 L (1.3-7.7) k/uL Lymphocytes # 0.5 L (1.0-4.8) k/uL Monocytes # 0.2 (0-1.0) k/uL Eosinophils # 0.1 (0-0.7) k/uL Basophils # 0.0 (0-0.2) k/uL Hypochromasia Slight Macrocytosis Moderate PT 12.1 H (9.0-12.0) sec INR 1.2 H (<1.2) APTT 27.8 (22.0-30.0) sec Sodium 139 (137-145) mmol/L Potassium 3.5 (3.5-5.1) mmol/L Chloride 107 (98-107) mmol/L Carbon Dioxide 26 (22-30) mmol/L Anion Gap 6 mmol/L BUN 14 (7-17) mg/dL Creatinine 0.55 (0.52-1.04) mg/dL Est GFR (CKD-EPI)AfAm >90 (>60 ml/min/1.73 sqM) Est GFR (CKD-EPI)NonAf >90 (>60 ml/min/1.73 sqM) Glucose 102 H (74-99) mg/dL Calcium 8.0 L (8.4-10.2) mg/dL Total Bilirubin 0.9 (0.2-1.3) mg/dL AST 28 (14-36) U/L ALT 20 (9-52) U/L Alkaline Phosphatase 170 H (38-126) U/L Total Protein 6.8 (6.3-8.2) g/dL Albumin 2.5 L (3.5-5.0) g/dL Amylase 39 (30-110) U/L Lipase 154 (23-300) U/L Urine Color Urine Appearance (Clear) Urine pH (5.0-8.0) Ur Specific [place] (1.001-1.035) Urine Protein (Negative) Urine Glucose (UA) (Negative) Urine Ketones (Negative) Urine Blood (Negative) Urine Nitrite (Negative) Urine Bilirubin (Negative) Urine Urobilinogen (<2.0) mg/dL Ur Leukocyte Esterase (Negative) Urine RBC (0-5) /hpf Urine WBC (0-5) /hpf Ur Squamous Epith Cells (0-4) /hpf Urine Mucus (None) /hpf 05/16/18 Range/Units 11:00 WBC (3.8-10.6) k/uL RBC (3.80-5.40) m/uL Hgb (11.4-16.0) gm/dL Hct (34.0-46.0) % MCV (80.0-100.0) fL MCH (25.0-35.0) pg MCHC (31.0-37.0) g/dL RDW (11.5-15.5) % Plt Count (150-450) k/uL Neutrophils % % Lymphocytes % % Monocytes % % Eosinophils % % Basophils % % Neutrophils # (1.3-7.7) k/uL Lymphocytes # (1.0-4.8) k/uL Monocytes # (0-1.0) k/uL Eosinophils # (0-0.7) k/uL Basophils # (0-0.2) k/uL Hypochromasia Macrocytosis PT (9.0-12.0) sec INR (<1.2) APTT (22.0-30.0) sec Sodium (137-145) mmol/L Potassium (3.5-5.1) mmol/L Chloride (98-107) mmol/L Carbon Dioxide (22-30) mmol/L Anion Gap mmol/L BUN (7-17) mg/dL Creatinine (0.52-1.04) mg/dL Est GFR (CKD-EPI)AfAm (>60 ml/min/1.73 sqM) Est GFR (CKD-EPI)NonAf (>60 ml/min/1.73 sqM) Glucose (74-99) mg/dL Calcium (8.4-10.2) mg/dL Total Bilirubin (0.2-1.3) mg/dL AST (14-36) U/L ALT (9-52) U/L Alkaline Phosphatase (38-126) U/L Total Protein (6.3-8.2) g/dL Albumin (3.5-5.0) g/dL Amylase (30-110) U/L Lipase (23-300) U/L Urine Color Yellow Urine Appearance Clear (Clear) Urine pH 7.0 (5.0-8.0) Ur Specific [place] 1.009 (1.001-1.035) Urine Protein Negative (Negative) Urine Glucose (UA) Negative (Negative) Urine Ketones Negative (Negative) Urine Blood Trace H (Negative) Urine Nitrite Negative (Negative) Urine Bilirubin Negative (Negative) Urine Urobilinogen <2.0 (<2.0) mg/dL Ur Leukocyte Esterase Negative (Negative) Urine RBC 1 (0-5) /hpf Urine WBC 1 (0-5) /hpf Ur Squamous Epith Cells 1 (0-4) /hpf Urine Mucus Rare H (None) /hpf Disposition Clinical Impression: Ascites, Abdominal pain Disposition: ADMITTED IP TO THIS HOSP Referrals: Mark Estrada MD [Primary Care Provider] - 1-2 days Time of Disposition: 13:13
[2018-05-16 11:20] LABS: ALT 20 U/L (9-52); AST 28 U/L (14-36); Albumin 2.5 g/dL (3.5-5.0); Alkaline Phosphatase 170 U/L (38-126); Amylase 39 U/L (30-110); Anion Gap 6 mmol/L; Blood Urea Nitrogen 14 mg/dL (7-17); Carbon Dioxide 26 mmol/L (22-30); Chloride 107 mmol/L (98-107); Glucose 102 mg/dL (74-99); Lipase 154 U/L (23-300); Potassium 3.5 mmol/L (3.5-5.1); Sodium 139 mmol/L (137-145); Total Bilirubin 0.9 mg/dL (0.2-1.3); Total Protein 6.8 g/dL (6.3-8.2)
[2018-05-16 11:21] LABS: Appearance,Urine Clear (Clear); Bilirubin,Urine Negative (Negative); Blood,Urine Trace (Negative); Color,Urine Yellow; Glucose,Urine (UA) Negative (Negative); INR 1.2 (<1.2); Ketones,Urine Negative (Negative); Leukocyte Esterase,Urine Negative (Negative); Mucus,Urine Rare /hpf; Nitrite,Urine Negative (Negative); Partial Thromboplastin Time 27.8 sec (22.0-30.0); Protein,Urine Negative (Negative); Prothrombin Time 12.1 sec (9.0-12.0); RBC,Urine 1 /hpf (0-5); Specific Gravity,Urine 1.009 (1.001-1.035); Squamous Epithelial Cell,Urine 1 /hpf (0-4); Urobilinogen,Urine <2.0 mg/dL (<2.0); WBC,Urine 1 /hpf (0-5)
[2018-05-16 11:23] LABS: Basophils % (A) 0 %; Eosinophils # (A) 0.1 k/uL (0-0.7); Eosinophils % (A) 4 %; HCT 25.6 % (34.0-46.0); HGB 8.6 gm/dL (11.4-16.0); Hypochromasia Slight; Lymphocytes # (A) 0.5 k/uL (1.0-4.8); Lymphocytes % (A) 29 %; MCH 34.9 pg (25.0-35.0); MCHC 33.5 g/dL (31.0-37.0); Macrocytosis Moderate; Mean Platelet Volume 7.6; Monocytes # (A) 0.2 k/uL (0-1.0); Monocytes % (A) 9 %; Neutrophils % (A) 55 %; RBC 2.46 m/uL (3.80-5.40); RDW 15.3 % (11.5-15.5); WBC 1.8 k/uL (3.8-10.6)
[2018-05-16 11:24] LABS: MCV 104.1 fL (80.0-100.0)
[2018-05-16 11:25] LABS: Platelet Count 106 k/uL (150-450)
--- NOTE | 2018-05-16 11:41 | XR ---
EXAMINATION TYPE: XR KUB DATE OF EXAM: 05/16/2018 COMPARISON: 08/05/2017 INDICATION: Abdomen pain TECHNIQUE: Upright view FINDINGS: Small amount of colonic bowel gas is present. Some nonspecific small bowel gas is present. There is i ncreased opacity over the abdomen. Consider some ascites within the differential. Psoas margins are not well visualized due to the increased opacification over the abdomen. No organomegaly is present. IMPRESSION: 1. Nonspecific abdomen. 2. Consider some ascites within the differential.
[2018-05-16] MEDS ORDERED: SODIUM CHLORIDE 0.9% 1,000 ML IV ONE (13:13)
[2018-05-16] MEDS ORDERED: HYDROmorphone 0.5 MG/0.5 ML SYRINGE IVP STA (13:15)
[2018-05-16 15:43] VITALS: BMI 52.0
[2018-05-16] MEDS: HYDROmorphone 1 MG/ML 1 ML SYRINGE IVP PRN ×2 (16:28→20:59)
--- NOTE | 2018-05-16 21:03 | HP ---
HISTORY AND PHYSICAL CHIEF COMPLAINT: Abdominal pain. HISTORY OF PRESENT ILLNESS: This is another admission for this 52-year-old white female. She comes in for paracentesis every 2 weeks or so. She missed her last one. She came into the emergency room with abdominal pain, which happens when she becomes tightly distended. REVIEW OF SYSTEMS: She has had no other complaints including fever at this time, vomiting, etc. Past medical history, family history, personal and social history are all unchanged and otherwise unremarkable. PHYSICAL EXAM: Blood pressure 121/70 with a pulse of 88, respirations of 34, and she is afebrile. In general, she appeared to be chronically ill. Head, ears, eyes, nose, mouth, and throat were normal. Chest demonstrated poor breath sounds. Cardiac exam is normal and the abdomen was tightly distended with ascitic fluid. Extremities are normal. IMPRESSION: 1. Cirrhosis. 2. Intractable ascites. 3. Abdominal pain. 4. Hepatitis C. 5. Carcinoma of left breast. 6. Chronic obstructive pulmonary disease. PLAN: 1. Bed rest. 2. Consult interventional Radiology. MMODL / IJN: [id number] /
[2018-05-17] MEDS: HYDROmorphone 1 MG/ML 1 ML SYRINGE IVP PRN ×5 (01:17→19:48)
[2018-05-17] MEDS: HYDROcodone/APAP 10-325MG 1 EACH TAB PO PRN ×4 (09:26→21:09)
[2018-05-17 14:19] VITALS: BP 112/69; PULSE 84; RESP 20; TEMP 99.1
--- NOTE | 2018-05-17 15:27 | US ---
EXAMINATION TYPE: US paracentesis abd w/image DATE OF EXAM: 05/17/2018 COMPARISON: NONE HISTORY: Ascites. PROCEDURE: Maximal barrier technique was utilized. The skin overlying a suitable pocket of fluid was localized with ultrasound and the overlying skin was prepped and draped. Ultrasound was utilized with sterile technique. Lidocaine was used for local anesthesia and a skin adela made with a scalpel. Catheter was advanced under direct ultrasound guidance into a suitable pocket of fluid and approximately 7 liters of serous fluid were removed. Catheter was withdrawn and hemostasis achieved. There is no immediate complication; the patient is discharged in stable condition. IMPRESSION: STATUS POST ULTRASOUND GUIDED PARACENTESIS FOR PALLIATION OF ASCITES. THIS PROCEDURE WA S PERFORMED BY THE UNDERSIGNED.
--- NOTE | 2018-05-17 18:07 | DS ---
DISCHARGE SUMMARY DATE OF SERVICE: 05/17/2018. CHIEF COMPLAINT: Abdominal pain due to intractable ascites. HISTORY OF PRESENT ILLNESS/PHYSICAL EXAM: Details of this lady's history and physical can be found in the initial workup. LABORATORY STUDIES: While she was in the hospital, she had laboratory studies, details of which can be found in the laboratory section of her chart. COURSE IN HOSPITAL: After admission, she was placed on bedrest and started on intravenous fluids and analgesics. The next day she was seen by Interventional Radiology. A paracentesis was performed. It was felt she could go home. She will follow up in a day or 2 in the office. FINAL DIAGNOSES: 1. Abdominal pain secondary to intractable ascites. 2. Cirrhosis. 3. Hepatitis C. 4. Chronic obstructive pulmonary disease. 5. Carcinoma of the left breast. OPERATIONS: Paracentesis. CONSULTATIONS: Interventional radiology. She is improved. MMODL / IJN: [id number] /
== END 2018-05-17 21:10 | disposition home or self-care (01) ==
LOC: EC 10:13 → 3NMEDONC 13:23
PROVIDERS: ADMIT Family Medicine; ATTEND Family Medicine
DX: K74.60 Unspecified cirrhosis of liver (principal); B19.20 Unspecified viral hepatitis C without hepatic coma; R18.8 Other ascites; J44.9 Chronic obstructive pulmonary disease, unspecified; K21.9 Gastro-esophageal reflux disease without esophagitis; I10 Essential (primary) hypertension; H91.90 Unspecified hearing loss, unspecified ear; F17.200 Nicotine dependence, unspecified, uncomplicated; C50.912 Malignant neoplasm of unspecified site of left female breast; Z82.49 Family history of ischemic heart disease and other diseases of the circulatory system; Z80.1 Family history of malignant neoplasm of trachea, bronchus and lung
CPT/HCPCS: 96376 ×3; 96361 ×2; 96374; 99285; 36415; 80053; 82150; 83690; 85025; 85610; 85730; 81001; 87040; 74018; 49083; G0378 ×2; J1170 ×3

== ENCOUNTER 2018-06-23 13:10 | Day surgery (SDC) | payer MEDICARE, OTHER ==
[2018-06-23 13:58] VITALS: RESP 16; TEMP 98.1
[2018-06-23 13:59] LABS: Mean Platelet Volume 8.7
[2018-06-23 14:03] LABS: Platelet Count 73 k/uL (150-450)
[2018-06-23 14:14] LABS: INR 1.2 (<1.2); Prothrombin Time 12.3 sec (9.0-12.0)
[2018-06-23] MEDS: ALBUMIN HUMAN 25% 50 ML in EMPTY BAG 1 BAG IVPB SCH ×4 (15:08→15:47)
[2018-06-23 15:51] VITALS: BP 116/67; PULSE 82
--- NOTE | 2018-06-24 08:38 | US ---
EXAMINATION TYPE: US paracentesis abd w/image DATE OF EXAM: 06/23/2018 COMPARISON: NONE HISTORY: Ascites. PROCEDURE: Maximal barrier technique was utilized. The skin overlying a suitable pocket of fluid was localized with ultrasound and the overlying skin was prepped and draped. Ultrasound was utilized with sterile technique. Lidocaine was used for local anesthesia and a skin adela made with a scalpel. Catheter was advanced under direct ultrasound guidance into a suitable pocket of fluid and approximately 7.4 liter s of serous fluid were removed. Catheter was withdrawn and hemostasis achieved. There is no immedia te complication; the patient is discharged in stable condition. IMPRESSION: STATUS POST ULTRASOUND GUIDED PARACENTESIS FOR PALLIATION OF ASCITES. THIS PROCEDURE WA S PERFORMED BY THE UNDERSIGNED.
== END 2018-06-23 16:15 | disposition home or self-care (01) ==
LOC: RADPROMAIN 13:10
PROVIDERS: ATTEND Family Medicine
DX: R18.8 Other ascites (principal)
CPT/HCPCS: 82565; 85049; 85610; 49083; P9047; J1642

== ENCOUNTER 2018-08-09 13:28 | Observation (INO) | payer MEDICARE, OTHER ==
[2018-08-09] MEDS ORDERED: SODIUM CHLORIDE 0.9% 500 ML 500 ML IV STA (14:46)
[2018-08-09] MEDS ORDERED: HYDROmorphone 0.5 MG/0.5 ML SYRINGE IVP STA ×2 (14:46→18:11)
--- NOTE | 2018-08-09 14:46 | ED ---
General Adult HPI - General Chief complaint: Abdominal Pain Stated complaint: rt sided pain Time Seen by Provider: 08/09/18 14:31 Source: patient, RN notes reviewed, old records reviewed Mode of arrival: wheelchair Limitations: no limitations - History of Present Illness Initial comments: 51-year-old female patient past medical history of breast cancer currently in remission, COPD, hypertension, liver cirrhosis, hepatitis C. presents to ED with approximately 3 days of right upper quadrant pain. Patient patient that she does have baseline right upper quadrant pain, however has been worse within the last 3 days. Patient denies any other complaints. Patient denies chest pain and shortness of breath nausea vomiting or diarrhea. Systemic: Pt denies fatigue, myalgia, fever/chills, rash. Pt denies weakness, night sweats, weight loss. Neuro: Pt denies headache, visual disturbances, syncope or pre-syncope. HEENT: Pt denies ocular discharge or irritation, otalgia, rhinorrhea, pharyngitis or notable lymphadenopathy. Cardiopulmonary: Pt denies chest pain, SOB, heart palpitations, dyspnea on exertion. Abdominal/GI: Pt deniesn/v/d. : Pt denies dysuria, burning w/ urination, frequency/urgency. Denies new onset urinary or bowel incontinence. MSK: Pt denies myalgia, loss of strength or function in extremities. Neuro: Pt denies new onset weakness, paresthesias. - Related Data Home Medications Medication Instructions Recorded Confirmed HYDROcodone/APAP 10-325MG [[place] 1 tab PO Q4H PRN 04/05/18 08/09/18 10-325] Allergies Allergy/AdvReac Type Severity Reaction Status Date / Time No Known Allergies Allergy Verified 08/09/18 14:48 Review of Systems ROS Statement: Those systems with pertinent positive or pertinent negative responses have been documented in the HPI. ROS Other: All systems not noted in ROS Statement are negative. Past Medical History Past Medical History: Cancer, COPD, GERD/Reflux, GI Bleed, Hearing Disorder / Deafness, Hypertension, Liver Disease Additional Past Medical History / Comment(s): Hepatitis C, intractable ascities with multiple paracentesis, cirrhosis, peritonitis, pancytopenia, vertigo; "benign abd mass", multiple upper GI bleeds, esophageal varicies/esophageal banding, left breast cancer had chemo last on 09-12-16-did not tolerate-completed only 3 cycles-then it was stopped/no surgery, lt ear hearing loss. History of Any Multi-Drug Resistant Organisms: None Reported Past Surgical History: Adenoidectomy, Tonsillectomy Additional Past Surgical History / Comment(s): Multiple paracentesises, EGDs, es ophageal banding, right chest mediport 08-06-16, l breast bx., Past Anesthesia/Blood Transfusion Reactions: No Reported Reaction Additional Past Anesthesia/Blood Transfusion Reaction / Comment(s): blood transfusions- no reaction Past Psychological History: Anxiety Smoking Status: Current every day smoker Past Alcohol Use History: None Reported Past Drug Use History: None Reported - Past Family History Mother Family Medical History: Cancer Additional Family Medical History / Comment(s): of lung ca at the age of 59yrs. She was a smoker. Father Family Medical History: Myocardial Infarction ([place]) Additional Family Medical History / Comment(s): from 2nd heart attack at the age of 59yrs. General Exam - General Exam Comments Initial Comments: Constitutional: NAD, AOX3, Pt has pleasant affect. HEENT: NC/AT, trachea midline, neck supple, no lymphadenopathy. Posterior pharynx non erythematous, without exudates. External ears appear normal, without discharge. Mucous membranes moist. Eyes PERRLA, EOM intact. There is no scleral icterus. No pallor noted. Cardiopulmonary: RRR, no murmurs, rubs or gallops, no JVD noted. Lungs CTAB in anterior and posterior barrera. No peripheral edema. Abdominal exam: Abdomen soft and non-distended. Mild right upper quadrant pain tenderness. No other areas of abdominal tenderness.. Bowel sounds active in LLQ. No hepatosplenomegaly. No ecchymosis Neuro: CN II-XII grossly intact. No nuchal rigidity. MSK: No posterior calf tenderness bilaterally, homans sign negative bilaterally. Posterior tibialis and radial pulse +2 bilaterally. Sensation intact in upper and lower extremities. Full active ROM in upper and lower extremities, 5/5 stregnth. Limitations: no limitations Course Vital Signs 08/09/18 08/09/18 08/09/18 13:39 16:31 17:33 Temperature 98.4 F 97.7 F Pulse Rate 82 78 74 Respiratory 20 16 16 Rate Blood Pressure 121/69 104/55 124/79 O2 Sat by Pulse 97 94 L 99 Oximetry Medical Decision Making - Medical Decision Making 51-year-old female patient past medical history of breast cancer currently in remission, COPD, hypertension, liver cirrhosis, hepatitis C. presents to ED with approximately 3 days of right upper quadrant pain. Patient patient that she does have baseline right upper quadrant pain, however has been worse within the last 3 days. Patient denies any other complaints. Patient denies chest pain and shortness of breath nausea vomiting or diarrhea. Pt VSS, afebrile. Physical exam displayed mild RUQ tenderness. No other tomy of abdominal tenderness. CBC displayed white blood cells 1.8, hemoglobin 9.6, platelets of 61. These are baseline for patient. Lactic acid within normal limits. UA negative. Ultrasound of gallbladder displayed cirrhosis with recurrent moderate amount of surrounding cellulitis. Gallbladder findings may be related to underlying liver failure. Cannot exclude cholecystitis. KUB displayed no acute process. Patient will be admitted, patient was started on IV antibiotics. Patient will have general surgery consult that. Case discussed with Dr. Byrne. - Lab Data Result diagrams: 08/09/18 16:25 08/09/18 16:25 Lab Results 08/09/18 08/09/18 08/09/18 Range/Units 16:25 16:25 16:25 WBC 1.8 L (3.8-10.6) k/uL RBC 2.86 L (3.80-5.40) m/uL Hgb 9.6 L (11.4-16.0) gm/dL Hct 29.5 L (34.0-46.0) % MCV 103.1 H (80.0-100.0) fL MCH 33.8 (25.0-35.0) pg MCHC 32.7 (31.0-37.0) g/dL RDW 15.2 (11.5-15.5) % Plt Count 61 L (150-450) k/uL Neutrophils % 49 % Lymphocytes % 34 % Monocytes % 10 % Eosinophils % 3 % Basophils % 1 % Neutrophils # 0.9 L (1.3-7.7) k/uL Lymphocytes # 0.6 L (1.0-4.8) k/uL Monocytes # 0.2 (0-1.0) k/uL Eosinophils # 0.1 (0-0.7) k/uL Basophils # 0.0 (0-0.2) k/uL Macrocytosis Slight Sodium 136 L (137-145) mmol/L Potassium 4.4 (3.5-5.1) mmol/L Chloride 109 H (98-107) mmol/L Carbon Dioxide 25 (22-30) mmol/L Anion Gap 2 mmol/L BUN 14 (7-17) mg/dL Creatinine 0.63 (0.52-1.04) mg/dL Est GFR (CKD-EPI)AfAm >90 (>60 ml/min/1.73 sqM) Est GFR (CKD-EPI)NonAf >90 (>60 ml/min/1.73 sqM) Glucose 92 (74-99) mg/dL Plasma Lactic Acid [place] 0.9 (0.7-2.0) mmol/L Calcium 8.7 (8.4-10.2) mg/dL Total Bilirubin 1.4 H (0.2-1.3) mg/dL AST 35 (14-36) U/L ALT 22 (9-52) U/L Alkaline Phosphatase 108 (38-126) U/L Total Protein 6.5 (6.3-8.2) g/dL Albumin 2.6 L (3.5-5.0) g/dL Lipase 64 (23-300) U/L Urine Color Urine Appearance (Clear) Urine pH (5.0-8.0) Ur Specific [place] (1.001-1.035) Urine Protein (Negative) Urine Glucose (UA) (Negative) Urine Ketones (Negative) Urine Blood (Negative) Urine Nitrite (Negative) Urine Bilirubin (Negative) Urine Urobilinogen (<2.0) mg/dL Ur Leukocyte Esterase (Negative) Urine RBC (0-5) /hpf Urine WBC (0-5) /hpf Ur Squamous Epith Cells (0-4) /hpf Urine Bacteria (None) /hpf Urine Mucus (None) /hpf 08/09/18 Range/Units Unknown WBC (3.8-10.6) k/uL RBC (3.80-5.40) m/uL Hgb (11.4-16.0) gm/dL Hct (34.0-46.0) % MCV (80.0-100.0) fL MCH (25.0-35.0) pg MCHC (31.0-37.0) g/dL RDW (11.5-15.5) % Plt Count (150-450) k/uL Neutrophils % % Lymphocytes % % Monocytes % % Eosinophils % % Basophils % % Neutrophils # (1.3-7.7) k/uL Lymphocytes # (1.0-4.8) k/uL Monocytes # (0-1.0) k/uL Eosinophils # (0-0.7) k/uL Basophils # (0-0.2) k/uL Macrocytosis Sodium (137-145) mmol/L Potassium (3.5-5.1) mmol/L Chloride (98-107) mmol/L Carbon Dioxide (22-30) mmol/L Anion Gap mmol/L BUN (7-17) mg/dL Creatinine (0.52-1.04) mg/dL Est GFR (CKD-EPI)AfAm (>60 ml/min/1.73 sqM) Est GFR (CKD-EPI)NonAf (>60 ml/min/1.73 sqM) Glucose (74-99) mg/dL Plasma Lactic Acid [place] (0.7-2.0) mmol/L Calcium (8.4-10.2) mg/dL Total Bilirubin (0.2-1.3) mg/dL AST (14-36) U/L ALT (9-52) U/L Alkaline Phosphatase (38-126) U/L Total Protein (6.3-8.2) g/dL Albumin (3.5-5.0) g/dL Lipase (23-300) U/L Urine Color Yellow Urine Appearance Clear (Clear) Urine pH 5.5 (5.0-8.0) Ur Specific [place] 1.033 (1.001-1.035) Urine Protein Trace H (Negative) Urine Glucose (UA) Negative (Negative) Urine Ketones Trace H (Negative) Urine Blood Trace H (Negative) Urine Nitrite Negative (Negative) Urine Bilirubin Negative (Negative) Urine Urobilinogen 3.0 (<2.0) mg/dL Ur Leukocyte Esterase Negative (Negative) Urine RBC 1 (0-5) /hpf Urine WBC 2 (0-5) /hpf Ur Squamous Epith Cells 6 H (0-4) /hpf Urine Bacteria Occasional H (None) /hpf Urine Mucus Many H (None) /hpf Disposition Clinical Impression: Abdominal pain Disposition: HOME SELF-CARE Condition: Serious Is patient prescribed a controlled substance at d/c from ED?: No Referrals: Mark Estrada MD [Primary Care Provider] - 1-2 days
--- NOTE | 2018-08-09 15:09 | XR ---
EXAMINATION TYPE: XR KUB DATE OF EXAM: 08/09/2018 COMPARISON: NONE HISTORY: Pain TECHNIQUE: Single supine KUB image of the abdomen is obtained FINDINGS: Small bowel demonstrates no evidence for dilatation or air fluid levels. Gas and fecal material is seen in non-distended colon. No convincing evidence for pneumoperitoneum. No unusual calcifications. The lung bases are clear. The osseous structures are intact. IMPRESSION: 1. Overall nonobstructive bowel gas pattern.
[2018-08-09 15:28] LABS: Appearance,Urine Clear (Clear); Bacteria,Urine Occasional /hpf; Bilirubin,Urine Negative (Negative); Blood,Urine Trace (Negative); Color,Urine Yellow; Glucose,Urine (UA) Negative (Negative); Ketones,Urine Trace (Negative); Leukocyte Esterase,Urine Negative (Negative); Mucus,Urine Many /hpf; Nitrite,Urine Negative (Negative); PH, Urine 5.5 (5.0-8.0); Protein,Urine Trace (Negative); RBC,Urine 1 /hpf (0-5); Specific Gravity,Urine 1.033 (1.001-1.035); Squamous Epithelial Cell,Urine 6 /hpf (0-4); WBC,Urine 2 /hpf (0-5)
--- NOTE | 2018-08-09 16:24 | US ---
EXAMINATION TYPE: US gallbladder DATE OF EXAM: 08/09/2018 COMPARISON: CT April 19, 2018 CLINICAL HISTORY: Pain; right abdominal pain EXAM MEASUREMENTS: Liver Length: 13.0 cm Gallbladder Wall: 0.4 cm CBD: 0.6 cm Right Kidney: 10.5 x 6.0 x 4.5 cm Pancreas: limitedly seen due to overlying bowel gas and ascites, and is painful to patient with prob e pressure on abdomen Liver: small for size, nodular border; ascites noted surrounding liver Gallbladder: echogenic, lobular focus, non mobile in dependent portion of gallbladder = 1.6 x 1.2 x 1.1cm Evidence for sonographic Greenberg's sign: yes CBD: wnl, and measures upper limits of normal Right Kidney: No hydronephrosis seen; hyperechoic focus in upper pole may be calcified vessel wall . Ascites noted in all four abdominal quadrants with largest measured pocket at RUQ = 11.5cm A/P. Visualized portion of pancreas shows no mass or ductal dilatation, significant portions are obscured by overlying bowel gas per technologist's as well as patient's inability to tolerate pressure from ul trasound probe. There is ascites redemonstrated most prominent surrounding the liver. Dependent densi ty in gallbladder consistent with small stones and/or sludge, and bile duct is upper limits of normal . Liver is small in size and heterogeneous. IMPRESSION: Cirrhosis with recurrent moderate amount of surrounding ascites. Gallbladder findings may be related to underlying liver failure. Cannot exclude acute cholecystitis. Consider HIDA scan follo w-up.
[2018-08-09 16:51] LABS: ALT 22 U/L (9-52); AST 35 U/L (14-36); Albumin 2.6 g/dL (3.5-5.0); Alkaline Phosphatase 108 U/L (38-126); Anion Gap 2 mmol/L; Blood Urea Nitrogen 14 mg/dL (7-17); Calcium 8.7 mg/dL (8.4-10.2); Carbon Dioxide 25 mmol/L (22-30); Chloride 109 mmol/L (98-107); Glucose 92 mg/dL (74-99); Lipase 64 U/L (23-300); Potassium 4.4 mmol/L (3.5-5.1); Sodium 136 mmol/L (137-145); Total Bilirubin 1.4 mg/dL (0.2-1.3); Total Protein 6.5 g/dL (6.3-8.2)
[2018-08-09 17:27] LABS: Basophils % (A) 1 %; Eosinophils # (A) 0.1 k/uL (0-0.7); Eosinophils % (A) 3 %; HCT 29.5 % (34.0-46.0); HGB 9.6 gm/dL (11.4-16.0); Lymphocytes # (A) 0.6 k/uL (1.0-4.8); Lymphocytes % (A) 34 %; MCH 33.8 pg (25.0-35.0); MCHC 32.7 g/dL (31.0-37.0); MCV 103.1 fL (80.0-100.0); Macrocytosis Slight; Mean Platelet Volume 8.4; Monocytes # (A) 0.2 k/uL (0-1.0); Monocytes % (A) 10 %; Neutrophils # (A) 0.9 k/uL (1.3-7.7); Neutrophils % (A) 49 %; RBC 2.86 m/uL (3.80-5.40); RDW 15.2 % (11.5-15.5); WBC 1.8 k/uL (3.8-10.6)
[2018-08-09 17:46] LABS: Platelet Count 61 k/uL (150-450)
[2018-08-09] MEDS ORDERED: NALOXONE 0.4 MG/ML 1 ML VIAL IV PRN (18:39)
[2018-08-09] MEDS ORDERED: PIPERACILLIN-TAZOBACTAM 3.375 GM in SODIUM CHLORIDE 0.9% 100 ML IVPB STA (18:42)
[2018-08-09] MEDS: SODIUM CHLORIDE 0.9% 1,000 ML IV SCH (19:15)
[2018-08-09] MEDS: HYDROcodone/APAP 10-325MG 1 EACH TAB PO PRN (22:10)
[2018-08-10] MEDS: MORPHINE SULFATE 4 MG/ML SYRINGE IV PRN ×3 (00:08→11:52)
[2018-08-10] MEDS: HYDROcodone/APAP 10-325MG 1 EACH TAB PO PRN ×3 (04:06→15:41)
[2018-08-10] MEDS: PIPERACILLIN-TAZOBACTAM 3.375 GM in SODIUM CHLORIDE 0.9% 100 ML IVPB SCH ×2 (04:10→11:52)
[2018-08-10 09:38] LABS: ALT 26 U/L (9-52); AST 32 U/L (14-36); Albumin 2.5 g/dL (3.5-5.0); Alkaline Phosphatase 96 U/L (38-126); Anion Gap 4 mmol/L; Blood Urea Nitrogen 16 mg/dL (7-17); Calcium 8.4 mg/dL (8.4-10.2); Carbon Dioxide 25 mmol/L (22-30); Chloride 110 mmol/L (98-107); Glucose 93 mg/dL (74-99); Potassium 3.9 mmol/L (3.5-5.1); Sodium 139 mmol/L (137-145); Total Bilirubin 1.2 mg/dL (0.2-1.3); Total Protein 6.3 g/dL (6.3-8.2)
[2018-08-10 10:01] LABS: Basophils % (A) 0 %; Eosinophils # (A) 0.1 k/uL (0-0.7); Eosinophils % (A) 4 %; HCT 28.8 % (34.0-46.0); HGB 9.5 gm/dL (11.4-16.0); Lymphocytes # (A) 0.7 k/uL (1.0-4.8); Lymphocytes % (A) 42 %; MCHC 33.1 g/dL (31.0-37.0); MCV 102.7 fL (80.0-100.0); Macrocytosis Slight; Mean Platelet Volume 9.1; Monocytes # (A) 0.2 k/uL (0-1.0); Monocytes % (A) 9 %; Neutrophils # (A) 0.7 k/uL (1.3-7.7); Neutrophils % (A) 40 %; RDW 15.6 % (11.5-15.5); WBC 1.7 k/uL (3.8-10.6)
[2018-08-10 10:06] LABS: Platelet Count 66 k/uL (150-450)
[2018-08-10] MEDS: SODIUM CHLORIDE 0.9% 1,000 ML IV SCH (11:56)
--- NOTE | 2018-08-10 13:23 | P.GSCN ---
History of Present Illness Consult date: 08/10/18 Reason for Consult: abdominal pain Requesting physician: Andi De Luna History of present illness: CHIEF COMPLAINT: Abdominal pain HISTORY OF PRESENT ILLNESS: 52-year-old female with history of hepatitis C, ascites, and liver cirrhosis who presented to the emergency room a chief complaint of abdominal pain. Patient reports she has chronic right upper quadrant pain and from time to time it worsens in severity. She denies nausea or vomiting. She states she does not want any type of surgical intervention performed and is requesting to be started on a diet. Clear liquid diet was started this morning. PAST MEDICAL HISTORY: See list. PAST SURGICAL HISTORY: See list. SOCIAL HISTORY: No illicit drug use. REVIEW OF SYSTEMS: CONSTITUTIONAL: Denies fever or chills. HEENT: Denies blurred vision, vision changes, or eye pain. Denies hemoptysis CARDIOVASCULAR: Denies chest pain or pressure. RESPIRATORY: No shortness of breath. GASTROINTESTINAL: Refer to HPI for pertinent findings HEMATOLOGIC: Denies bleeding disorders. GENITOURINARY: Denies any blood in urine. SKIN: Denies pruitis. Denies rash. PHYSICAL EXAM: VITAL SIGNS: Reviewed. GENERAL: Well-developed in no acute distress. HEENT: No sclera icterus. Extraocular movements grossly intact. Moist buccal mucosa. Head is atraumatic, normocephalic. ABDOMEN: Soft. Nondistended. Tenderness to right upper quadrant NEUROLOGIC: Alert and oriented. Cranial nerves II through XII grossly intact. ASSESSMENT: 1. Acute on chronic abdominal pain 2. Liver cirrhosis PLAN: Patient stating early this morning that her pain is chronic and this is the same type of pain she always has. She refuses any surgical intervention. She was started on clear liquid diet this morning as she refused to wait to see surgical provider before beginning clear liquid diet. Patient was re-evaluated this afternoon and was found to have consumed ice cream, potato chips, and Coca-Cola. Pain management per primary medicine. We will sign off. Please reconsult if needed. Nurse practitioner note has been reviewed by physician. Signing provider agrees with the documented findings, assessment, and plan of care. Past Medical History Past Medical History: Cancer, COPD, GERD/Reflux, GI Bleed, Hearing Disorder / Deafness, Hypertension, Liver Disease Additional Past Medical History / Comment(s): Hepatitis C, intractable ascities with multiple paracentesis, cirrhosis, peritonitis, pancytopenia, vertigo; "benign abd mass", multiple upper GI bleeds, esophageal varicies/esophageal banding, left breast cancer had chemo last on 09-12-16-did not tolerate-completed only 3 cycles-then it was stopped/no surgery, lt ear hearing loss. History of Any Multi-Drug Resistant Organisms: None Reported Past Surgical History: Adenoidectomy, Tonsillectomy Additional Past Surgical History / Comment(s): Multiple paracentesises, EGDs, esophageal banding, right chest mediport 08-06-16, l breast bx., Past Anesthesia/Blood Transfusion Reactions: No Reported Reaction Additional Past Anesthesia/Blood Transfusion Reaction / Comm: blood transfusions- no reaction Past Psychological History: Anxiety Additional Psychological History / Comment(s): Pt's son lives with her in a [address] home with 1 front step. Pt's bathroom and bedroom on 2nd floor so pt now has a hospital bed and bsc on first floor. Smoking Status: Current every day smoker Past Alcohol Use History: None Reported Additional Past Alcohol Use History / Comment(s): Patient started smoking at age 13/2 a pack a day and cut back to one to 3 cigarettes per day no history of alcohol abuse. Patient lives with her son. She is currently on disability. Past Drug Use History: None Reported - Past Family History Mother Family Medical History: Cancer Additional Family Medical History / Comment(s): of lung ca at the age of 59yrs. She was a smoker. Father Family Medical History: Myocardial Infarction ([place]) Additional Family Medical History / Comment(s): from 2nd heart attack at the age of 59yrs. Medications and Allergies Home Medications Medication Instructions Recorded Confirmed Type HYDROcodone/APAP 10-325MG [[place] 1 tab PO Q4H PRN 04/05/18 08/09/18 History 10-325] Allergies Allergy/AdvReac Type Severity Reaction Status Date / Time No Known Allergies Allergy Verified 08/09/18 14:48 Surgical - Exam Vital Signs Temp Pulse Resp BP Pulse Ox 98.4 F 82 20 121/69 97 08/09/18 13:39 08/09/18 13:39 08/09/18 13:39 08/09/18 13:39 08/09/18 13:39 Results - Labs 08/10/18 08:55 08/10/18 08:55 Abnormal Lab Results - Last 24 Hours (Table) 08/09/18 08/09/18 08/09/18 Range/Units 16:25 16:25 Unknown WBC 1.8 L (3.8-10.6) k/uL RBC 2.86 L (3.80-5.40) m/uL Hgb 9.6 L (11.4-16.0) gm/dL Hct 29.5 L (34.0-46.0) % MCV 103.1 H (80.0-100.0) fL RDW (11.5-15.5) % Plt Count 61 L (150-450) k/uL Neutrophils # 0.9 L (1.3-7.7) k/uL Lymphocytes # 0.6 L (1.0-4.8) k/uL Sodium 136 L (137-145) mmol/L Chloride 109 H (98-107) mmol/L Total Bilirubin 1.4 H (0.2-1.3) mg/dL Albumin 2.6 L (3.5-5.0) g/dL Urine Protein Trace H (Negative) Urine Ketones Trace H (Negative) Urine Blood Trace H (Negative) Ur Squamous Epith Cells 6 H (0-4) /hpf Urine Bacteria Occasional H (None) /hpf Urine Mucus Many H (None) /hpf 08/10/18 08/10/18 Range/Units 08:55 08:55 WBC 1.7 L (3.8-10.6) k/uL RBC 2.80 L (3.80-5.40) m/uL Hgb 9.5 L (11.4-16.0) gm/dL Hct 28.8 L (34.0-46.0) % MCV 102.7 H (80.0-100.0) fL RDW 15.6 H (11.5-15.5) % Plt Count 66 L (150-450) k/uL Neutrophils # 0.7 L (1.3-7.7) k/uL Lymphocytes # 0.7 L (1.0-4.8) k/uL Sodium (137-145) mmol/L Chloride 110 H (98-107) mmol/L Total Bilirubin (0.2-1.3) mg/dL Albumin 2.5 L (3.5-5.0) g/dL Urine Protein (Negative) Urine Ketones (Negative) Urine Blood (Negative) Ur Squamous Epith Cells (0-4) /hpf Urine Bacteria (None) /hpf Urine Mucus (None) /hpf Diabetes panel 08/09/18 08/10/18 Range/Units 16:25 08:55 Sodium 136 L 139 (137-145) mmol/L Potassium 4.4 3.9 (3.5-5.1) mmol/L Chloride 109 H 110 H (98-107) mmol/L Carbon Dioxide 25 25 (22-30) mmol/L BUN 14 16 (7-17) mg/dL Creatinine 0.63 0.65 (0.52-1.04) mg/dL Glucose 92 93 (74-99) mg/dL Calcium 8.7 8.4 (8.4-10.2) mg/dL AST 35 32 (14-36) U/L ALT 22 26 (9-52) U/L Alkaline Phosphatase 108 96 (38-126) U/L Total Protein 6.5 6.3 (6.3-8.2) g/dL Albumin 2.6 L 2.5 L (3.5-5.0) g/dL Calcium panel 08/09/18 08/10/18 Range/Units 16:25 08:55 Calcium 8.7 8.4 (8.4-10.2) mg/dL Albumin 2.6 L 2.5 L (3.5-5.0) g/dL Pituitary panel 08/09/18 08/10/18 Range/Units 16:25 08:55 Sodium 136 L 139 (137-145) mmol/L Potassium 4.4 3.9 (3.5-5.1) mmol/L Chloride 109 H 110 H (98-107) mmol/L Carbon Dioxide 25 25 (22-30) mmol/L BUN 14 16 (7-17) mg/dL Creatinine 0.63 0.65 (0.52-1.04) mg/dL Glucose 92 93 (74-99) mg/dL Calcium 8.7 8.4 (8.4-10.2) mg/dL Adrenal panel 08/09/18 08/10/18 Range/Units 16:25 08:55 Sodium 136 L 139 (137-145) mmol/L Potassium 4.4 3.9 (3.5-5.1) mmol/L Chloride 109 H 110 H (98-107) mmol/L Carbon Dioxide 25 25 (22-30) mmol/L BUN 14 16 (7-17) mg/dL Creatinine 0.63 0.65 (0.52-1.04) mg/dL Glucose 92 93 (74-99) mg/dL Calcium 8.7 8.4 (8.4-10.2) mg/dL Total Bilirubin 1.4 H 1.2 (0.2-1.3) mg/dL AST 35 32 (14-36) U/L ALT 22 26 (9-52) U/L Alkaline Phosphatase 108 96 (38-126) U/L Total Protein 6.5 6.3 (6.3-8.2) g/dL Albumin 2.6 L 2.5 L (3.5-5.0) g/dL
[2018-08-10 13:43] VITALS: BP 102/60; PULSE 68; RESP 16; TEMP 97.8
--- NOTE | 2018-08-10 15:52 | HP ---
HISTORY AND PHYSICAL CHIEF COMPLAINT: Right upper quadrant pain. HISTORY OF PRESENT ILLNESS: This is another admission for this 52-year-old white female who has chronic, end-stage cirrhosis secondary to hepatitis C. She also has carcinoma of the left breast, which she has never allowed to be treated. She started to have more pain in the right upper quadrant and came to the emergency room. She has had right upper quadrant pain on and off for "years." She has had no vomiting, fever, chills, diarrhea, jaundice, etc. Review of systems is otherwise unremarkable. She has not gotten paracentesis for 3 weeks. She has no symptoms relative to the left breast carcinoma. The remainder of the history is unchanged from her recent admitting and discharge summaries. PHYSICAL EXAMINATION: Blood pressure is 108/64 with a pulse of 65, respirations of 32, and she is afebrile. In general she appeared to be chronically ill. She was disheveled. Head, ears, eyes, nose, mouth and throat were otherwise normal. Neck veins were not distended. The chest demonstrated rales at the bases and very poor breath sounds throughout. Cardiac exam demonstrated sinus tachycardia with no murmurs or extra sounds. The abdomen was protuberant and generally tender. Bowel sounds were present. Extremities were normal. She is admitted to the hospital with the diagnoses: 1. Right upper quadrant pain, probably due to her cirrhosis. 2. Cirrhosis. 3. Hepatitis C. 4. Carcinoma of the left breast. PLAN: 1. Bed rest. 2. IV fluids. 3. Surgical consult. MMPABLITOL / NESTORN: [id number] /
--- NOTE | 2018-08-11 05:09 | DS ---
DISCHARGE SUMMARY CHIEF COMPLAINT: Right upper quadrant pain. HISTORY OF PRESENT ILLNESS AND PHYSICAL EXAM: Details of this lady's history and physical can be found in the initial workup. LABORATORY STUDIES: While she was in a hospital she had laboratory studies, details of which can be found in the laboratory section of her chart. COURSE IN HOSPITAL: After admission she was placed on bedrest and started on intravenous fluids and seen in consultation by Surgery who did not feel that she had a surgical abdomen. It was felt that she could go home on her usual diet and activity on the and she will be seen in the office in a few days. FINAL DIAGNOSES: 1. Right upper quadrant pain. 2. Cirrhosis. 3. Hepatitis C. 4. Carcinoma of the left breast. 5. Intractable ascites. OPERATIONS: None. CONSULTATIONS: Surgery. She is improved. MMODL / IJN: [id number] /
== END 2018-08-10 18:23 | disposition home or self-care (01) ==
LOC: EC 13:28 → 4MS4W 18:01
PROVIDERS: ADMIT Family Medicine; ATTEND Family Medicine
DX: R10.11 Right upper quadrant pain (principal); G89.29 Other chronic pain; B19.20 Unspecified viral hepatitis C without hepatic coma; K74.60 Unspecified cirrhosis of liver; R18.8 Other ascites; I85.00 Esophageal varices without bleeding; J44.9 Chronic obstructive pulmonary disease, unspecified; I10 Essential (primary) hypertension; C50.912 Malignant neoplasm of unspecified site of left female breast; K21.9 Gastro-esophageal reflux disease without esophagitis; R42 Dizziness and giddiness; D61.818 Other pancytopenia; F17.210 Nicotine dependence, cigarettes, uncomplicated; H91.90 Unspecified hearing loss, unspecified ear; F41.9 Anxiety disorder, unspecified; R00.0 Tachycardia, unspecified; Z79.891 Long term (current) use of opiate analgesic; Z85.3 Personal history of malignant neoplasm of breast; Z92.21 Personal history of antineoplastic chemotherapy; Z87.19 Personal history of other diseases of the digestive system; Z80.1 Family history of malignant neoplasm of trachea, bronchus and lung; Z82.49 Family history of ischemic heart disease and other diseases of the circulatory system; Z81.2 Family history of tobacco abuse and dependence
CPT/HCPCS: 96376 ×2; 96366 ×2; 96375 ×2; 96361; 96365; 99285; 36415; 80053 ×2; 83605; 83690; 85025 ×2; 81001; 74018; 76705; G0378 ×2; J2543 ×2; J2270; J1170

== ENCOUNTER 2018-08-12 02:30 | Emergency (ER) | payer MEDICARE, OTHER ==
[2018-08-12] MEDS ORDERED: SODIUM CHLORIDE 0.9% 500 ML 500 ML IV STA (02:58)
[2018-08-12] MEDS ORDERED: ONDANSETRON 4 MG/2 ML VIAL IVP STA ×2 (02:58→04:03)
[2018-08-12] MEDS ORDERED: KETOROLAC 30 MG/ML 1 ML VIAL IVP STA (02:58)
[2018-08-12 03:16] LABS: ALT 20 U/L (9-52); AST 32 U/L (14-36); Albumin 2.9 g/dL (3.5-5.0); Alkaline Phosphatase 126 U/L (38-126); Amylase 41 U/L (30-110); Anion Gap 5 mmol/L; Blood Urea Nitrogen 12 mg/dL (7-17); Calcium 8.6 mg/dL (8.4-10.2); Carbon Dioxide 25 mmol/L (22-30); Chloride 107 mmol/L (98-107); Glucose 151 mg/dL (74-99); Lipase 163 U/L (23-300); Potassium 3.6 mmol/L (3.5-5.1); Sodium 137 mmol/L (137-145); Total Bilirubin 0.9 mg/dL (0.2-1.3)
[2018-08-12 03:17] LABS: Basophils % (A) 0 %; Eosinophils # (A) 0.1 k/uL (0-0.7); Eosinophils % (A) 3 %; HCT 32.7 % (34.0-46.0); HGB 10.6 gm/dL (11.4-16.0); Lymphocytes # (A) 0.9 k/uL (1.0-4.8); Lymphocytes % (A) 34 %; MCH 33.5 pg (25.0-35.0); MCHC 32.5 g/dL (31.0-37.0); MCV 102.9 fL (80.0-100.0); Macrocytosis Slight; Monocytes # (A) 0.2 k/uL (0-1.0); Monocytes % (A) 9 %; Neutrophils # (A) 1.3 k/uL (1.3-7.7); Neutrophils % (A) 51 %; RBC 3.17 m/uL (3.80-5.40); RDW 15.5 % (11.5-15.5); WBC 2.6 k/uL (3.8-10.6)
[2018-08-12 03:21] LABS: Appearance,Urine Clear (Clear); Bilirubin,Urine Negative (Negative); Blood,Urine Small (Negative); Color,Urine Yellow; Glucose,Urine (UA) Negative (Negative); Ketones,Urine Negative (Negative); Leukocyte Esterase,Urine Negative (Negative); Mucus,Urine Rare /hpf; Nitrite,Urine Negative (Negative); PH, Urine 5.5 (5.0-8.0); Protein,Urine Negative (Negative); RBC,Urine 6 /hpf (0-5); Specific Gravity,Urine 1.026 (1.001-1.035); Squamous Epithelial Cell,Urine 2 /hpf (0-4); WBC,Urine 2 /hpf (0-5)
[2018-08-12 03:32] LABS: Platelet Count 71 k/uL (150-450)
[2018-08-12 03:56] VITALS: BP 127/77; PULSE 80; RESP 20; TEMP 98
[2018-08-12] MEDS ORDERED: MORPHINE SULFATE 4 MG/ML SYRINGE IVP STA (04:00)
--- NOTE | 2018-08-12 04:05 | ED ---
General Adult HPI - General Chief complaint: Abdominal Pain Stated complaint: abd pain Time Seen by Provider: 08/12/18 02:57 Source: patient, RN notes reviewed Mode of arrival: ambulatory Limitations: no limitations - History of Present Illness Initial comments: 52-year-old female with a past medical history of breast cancer, cirrhosis, hepatitis C, intractable ascites presents to the emergency department for chief complaint of right upper quadrant pain. Patient states this has been ongoing for several years. States that a few times year gets bad to where she needs to be seen for it. States this is consistent with previous pain levels. Patient denies fevers or chills. States she was recently admitted and discharged home as she was nonsurgical candidate. Patient states she has an appointment with her primary care provider this afternoon but needed something for pain to make it until that time.Patient has no other complaints at this time including shortness of breath, chest pain, nausea or vomiting, headache, or visual changes. - Related Data Home Medications Medication Instructions Recorded Confirmed HYDROcodone/APAP 10-325MG [[place] 1 tab PO Q4H PRN 04/05/18 08/12/18 10-325] Allergies Allergy/AdvReac Type Severity Reaction Status Date / Time No Known Allergies Allergy Verified 08/12/18 02:41 Review of Systems ROS Statement: Those systems with pertinent positive or pertinent negative responses have been documented in the HPI. ROS Other: All systems not noted in ROS Statement are negative. Past Medical History Past Medical History: Cancer, COPD, GERD/Reflux, GI Bleed, Hearing Disorder / Deafness, Hypertension, Liver Disease Additional Past Medical History / Comment(s): Hepatitis C, intractable ascities with multiple paracentesis, cirrhosis, peritonitis, pancytopenia, vertigo; "benign abd mass", multiple upper GI bleeds, esophageal varicies/esophageal banding, left breast cancer had chemo last on 09-12-16-did not tolerate-completed only 3 cycles-then it was stopped/no surgery, lt ear hearing loss. History of Any Multi-Drug Resistant Organisms: None Reported Past Surgical History: Adenoidectomy, Tonsillectomy Additional Past Surgical History / Comment(s): Multiple paracentesises, EGDs, esophageal banding, right chest mediport 08-06-16, l breast bx., Past Anesthesia/Blood Transfusion Reactions: No Reported Reaction Additional Past Anesthesia/Blood Transfusion Reaction / Comment(s): blood transfusions- no reaction Past Psychological History: Anxiety Smoking Status: Current every day smoker Past Alcohol Use History: None Reported Past Drug Use History: None Reported - Past Family History Mother Family Medical History: Cancer Additional Family Medical History / Comment(s): of lung ca at the age of 59yrs. She was a smoker. Father Family Medical History: Myocardial Infarction ([place]) Additional Family Medical History / Comment(s): from 2nd heart attack at the age of 59yrs. General Exam Limitations: no limitations General appearance: alert, in no apparent distress Head exam: Present: atraumatic, normocephalic, normal inspection Eye exam: Present: normal appearance. Absent: PERRL, EOMI, scleral icterus, conjunctival injection, nystagmus ENT exam: Present: normal exam, mucous membranes moist, normal external ear exam Neck exam: Present: normal inspection, full ROM. Absent: tenderness, meningismus, lymphadenopathy Respiratory exam: Present: normal lung sounds bilaterally. Absent: respiratory distress, wheezes, rales, rhonchi, stridor Cardiovascular Exam: Present: regular rate, normal rhythm, normal heart sounds. Absent: systolic murmur, diastolic murmur, rubs, gallop, clicks GI/Abdominal exam: Present: soft, tenderness (Tenderness noted in the right upper quadrant. No tenderness in the right lower quadrant or left side of the abdomen.), normal bowel sounds. Absent: distended, guarding, rebound, rigid Neurological exam: Present: alert, oriented X3, CN II-XII intact Psychiatric exam: Present: normal affect, normal mood Skin exam: Present: warm, dry, intact, normal color, other (No jaundice pr esent). Absent: rash Course Vital Signs 08/12/18 08/12/18 02:38 03:42 Temperature 98.2 F 98 F Pulse Rate 85 80 Respiratory 17 20 Rate Blood Pressure 120/55 127/77 O2 Sat by Pulse 98 97 Oximetry Medical Decision Making - Medical Decision Making 52-year-old female presents to the emergency department for a chief complaint of right upper quadrant pain. States this has been ongoing for several years, worsened in the past few weeks. Patient was recently admitted for this and discharged home if she did not want surgery at the time and was nonsurgical candidate. States she still is not ready for surgery. CBC does show a white count of 2.6, hemoglobin 10.6, platelets 71, patient's baseline. CMP was unremarkable, no transaminitis. Bilirubin 0.9. Urine negative presents for 6 red blood cells. Patient was given Toradol states her pain did decrease significantly whoever is having some pain. Patient will be given morphine. Patient is requesting a "sample" of pain medications for home however at this time I feel it is more appropriate for her to follow up with her primary care provider for this she [facility]. Patient states she will attend this appointment. She will return here if she has any worsening symptoms. Patient also requests the name of the GI physician. This will be given to her. - Lab Data Result diagrams: 08/12/18 02:53 08/12/18 02:53 Lab Results 08/12/18 08/12/18 08/12/18 Range/Units 02:53 02:53 02:53 WBC 2.6 L (3.8-10.6) k/uL RBC 3.17 L (3.80-5.40) m/uL Hgb 10.6 L (11.4-16.0) gm/dL Hct 32.7 L (34.0-46.0) % MCV 102.9 H (80.0-100.0) fL MCH 33.5 (25.0-35.0) pg MCHC 32.5 (31.0-37.0) g/dL RDW 15.5 (11.5-15.5) % Plt Count 71 L (150-450) k/uL Neutrophils % 51 % Lymphocytes % 34 % Monocytes % 9 % Eosinophils % 3 % Basophils % 0 % Neutrophils # 1.3 (1.3-7.7) k/uL Lymphocytes # 0.9 L (1.0-4.8) k/uL Monocytes # 0.2 (0-1.0) k/uL Eosinophils # 0.1 (0-0.7) k/uL Basophils # 0.0 (0-0.2) k/uL Macrocytosis Slight Sodium 137 (137-145) mmol/L Potassium 3.6 (3.5-5.1) mmol/L Chloride 107 (98-107) mmol/L Carbon Dioxide 25 (22-30) mmol/L Anion Gap 5 mmol/L BUN 12 (7-17) mg/dL Creatinine 0.71 (0.52-1.04) mg/dL Est GFR (CKD-EPI)AfAm >90 (>60 ml/min/1.73 sqM) Est GFR (CKD-EPI)NonAf >90 (>60 ml/min/1.73 sqM) Glucose 151 H (74-99) mg/dL Calcium 8.6 (8.4-10.2) mg/dL Total Bilirubin 0.9 (0.2-1.3) mg/dL AST 32 (14-36) U/L ALT 20 (9-52) U/L Alkaline Phosphatase 126 (38-126) U/L Total Protein 7.0 (6.3-8.2) g/dL Albumin 2.9 L (3.5-5.0) g/dL Amylase 41 (30-110) U/L Lipase 163 (23-300) U/L Urine Color Yellow Urine Appearance Clear (Clear) Urine pH 5.5 (5.0-8.0) Ur Specific [place] 1.026 (1.001-1.035) Urine Protein Negative (Negative) Urine Glucose (UA) Negative (Negative) Urine Ketones Negative (Negative) Urine Blood Small H (Negative) Urine Nitrite Negative (Negative) Urine Bilirubin Negative (Negative) Urine Urobilinogen 2.0 (<2.0) mg/dL Ur Leukocyte Esterase Negative (Negative) Urine RBC 6 H (0-5) /hpf Urine WBC 2 (0-5) /hpf Ur Squamous Epith Cells 2 (0-4) /hpf Urine Mucus Rare H (None) /hpf Disposition Clinical Impression: Chronic abdominal pain Disposition: HOME SELF-CARE Condition: Good Instructions (If sedation given, give patient instructions): Abdominal Pain (ED) Additional Instructions: Please follow-up with your appointment with Dr. Estrada later today. Return to the emergency department if you have any worsening symptoms. Is patient prescribed a controlled substance at d/c from ED?: No Referrals: Mark Estrada MD [Primary Care Provider] - 1-2 days Time of Disposition: 04:08
== END 2018-08-12 04:31 | disposition home or self-care (01) ==
LOC: EC 02:30
DX: R10.11 Right upper quadrant pain (principal); G89.29 Other chronic pain; K21.9 Gastro-esophageal reflux disease without esophagitis; H91.92 Unspecified hearing loss, left ear; F17.200 Nicotine dependence, unspecified, uncomplicated; Z85.3 Personal history of malignant neoplasm of breast; Z86.19 Personal history of other infectious and parasitic diseases; Z87.19 Personal history of other diseases of the digestive system
CPT/HCPCS: 99284; 96374; 96375 ×2; 96376; 96361; 36415; 80053; 82150; 83690; 85025; 81001; J2270; J2405; J1885

== ENCOUNTER 2018-09-05 15:03 | Inpatient (IN) | payer MEDICARE, OTHER ==
--- NOTE | 2018-09-05 15:33 | ED ---
General Adult HPI - General Chief complaint: Chest Pain Stated complaint: Chest pain Time Seen by Provider: 09/05/18 15:12 Source: family, RN notes reviewed Mode of arrival: ambulatory Limitations: no limitations - History of Present Illness Initial comments: 52-year-old female with a past medical history of breast cancer, COPD, GERD, hypertension, liver disease presents to the emergency department for left-sided chest pain. States this has been ongoing for over a month. States that she does not look at the area or touch the area because that is where she has breast cancer and it scares her. States she followed up with her primary care provider last month he wanted her to follow up with Dr. Kyle Mata the patient states she did not feel like doing this so has not followed up. Patient states she is here today because she does not want to be in pain any longer. Patient states she did have chemo on the left breast with the last treatment being in September 2016 but she did not tolerate it well so stopped chemo.Patient has no other complaints at this time including shortness of breath, abdominal pain, nausea or vomiting, headache, or visual changes. - Related Data Home Medications Medication Instructions Recorded Confirmed HYDROcodone/APAP 10-325MG [[place] 1 tab PO QID PRN 04/05/18 08/12/18 10-325] Allergies Allergy/AdvReac Type Severity Reaction Status Date / Time No Known Allergies Allergy Verified 09/05/18 15:58 Review of Systems ROS Statement: Those systems with pertinent positive or pertinent negative responses have been documented in the HPI. ROS Other: All systems not noted in ROS Statement are negative. Past Medical History Past Medical History: Cancer, COPD, GERD/Reflux, GI Bleed, Hearing Disorder / Deafness, Hypertension, Liver Disease Additional Past Medical History / Comment(s): Hepatitis C, intractable ascities with multiple paracentesis, cirrhosis, peritonitis, pancytopenia, vertigo; "benign abd mass", multiple upper GI bleeds, esophageal varicies/esophageal banding, left breast cancer had chemo last on 09-12-16-did not tolerate-completed only 3 cycles-then it was stopped/no surgery, lt ear hearing loss. History of Any Multi-Drug Resistant Organisms: None Reported Past Surgical History: Adenoidectomy, Tonsillectomy Additional Past Surgical History / Comment(s): Multiple paracentesises, EGDs, esophageal banding, right chest mediport 5-3-17, l breast bx., Past Anesthesia/Blood Transfusion Reactions: No Reported Reaction Additional Past Anesthesia/Blood Transfusion Reaction / Comment(s): blood transfusions- no reaction Past Psychological History: Anxiety Smoking Status: Current every day smoker Past Alcohol Use History: None Reported Past Drug Use History: None Reported - Past Family History Mother Family Medical History: Cancer Additional Family Medical History / Comment(s): of lung ca at the age of 59yrs. She was a smoker. Father Family Medical History: Myocardial Infarction ([place]) Additional Family Medical History / Comment(s): from 2nd heart attack at the age of 59yrs. General Exam Limitations: no limitations General appearance: alert, in no apparent distress Head exam: Present: atraumatic, normocephalic, normal inspection Eye exam: Present: normal appearance, PERRL, EOMI. Absent: scleral icterus, conjunctival injection, periorbital swelling ENT exam: Present: normal exam, mucous membranes moist Neck exam: Present: normal inspection, full ROM. Absent: tenderness, meningismus, lymphadenopathy Respiratory exam: Present: normal lung sounds bilaterally, other (She has a mass noted of the left breast but will now allow me to touch the area). Absent: respiratory distress, wheezes, rales, rhonchi, stridor Cardiovascular Exam: Present: regular rate, normal rhythm, normal heart sounds. Absent: systolic murmur, diastolic murmur, rubs, gallop, clicks GI/Abdominal exam: Present: soft, normal bowel sounds. Absent: distended, tenderness, guarding, rebound, rigid Neurological exam: Present: alert, oriented X3, CN II-XII intact Psychiatric exam: Present: normal affect, normal mood Course Vital Signs 09/05/18 09/05/18 09/05/18 15:06 15:30 16:00 Temperature 98.2 F Pulse Rate 94 Respiratory 18 Rate Blood Pressure 148/70 131/95 133/61 O2 Sat by Pulse 99 Oximetry 09/05/18 09/05/18 16:30 17:00 Temperature Pulse Rate 83 Respiratory 20 Rate Blood Pressure 121/62 114/66 O2 Sat by Pulse 94 L 96 Oximetry EKG Findings - EKG Comments: EKG Findings:: Normal sinus rhythm, ventricular rate 81, [place] interval 112, QTC 462, no evidence of ST elevation or depression Medical Decision Making - Medical Decision Making 52-year-old female with a past medical history significant for pancytopenia, [place] PD, GI bleed, hypertension, liver disease, this cancer 2 years ago with incomplete chemo treatment presents to the emergency determine for left-sided chest pain. This is been ongoing for a month. On exam patient is have erythematous nodular area noted to the left breast concerning for possibly met astatic disease. Patient had breast cancer 2 years ago did not E Meaux completed because she could not tolerate it. States that she saw her primary care provider for this and she was referred to Dr. Kyle Mata but she never followed up with her. This is likely because the patient's pain however chest pain workup was initiated. EKG shows a normal sinus rhythm without elevation. Troponin negative. However CBC does show a white count of 7.6. Patient does have chronic anemia however has dropped 3 points in the past month. Occult blood pending at this time. She also has pain soaking it which is chronic. At this time patient will be admitted for oncology consult as well as anemia. Patient controlled at this time. - Lab Data Result diagrams: 09/05/18 16:05 09/05/18 16:05 Lab Results 09/05/18 09/05/18 09/05/18 Range/Units 16:05 16:05 16:05 WBC 2.1 L (3.8-10.6) k/uL RBC 2.24 L (3.80-5.40) m/uL Hgb 7.6 L D (11.4-16.0) gm/dL Hct 22.4 L (34.0-46.0) % MCV 99.7 (80.0-100.0) fL MCH 33.7 (25.0-35.0) pg MCHC 33.8 (31.0-37.0) g/dL RDW 15.6 H (11.5-15.5) % Plt Count 75 L (150-450) k/uL Neutrophils % 51 % Lymphocytes % 32 % Monocytes % 9 % Eosinophils % 5 % Basophils % 0 % Neutrophils # 1.1 L (1.3-7.7) k/uL Lymphocytes # 0.7 L (1.0-4.8) k/uL Monocytes # 0.2 (0-1.0) k/uL Eosinophils # 0.1 (0-0.7) k/uL Basophils # 0.0 (0-0.2) k/uL Macrocytosis Slight PT (9.0-12.0) sec INR (<1.2) APTT (22.0-30.0) sec Sodium 137 (137-145) mmol/L Potassium 3.7 (3.5-5.1) mmol/L Chloride 110 H (98-107) mmol/L Carbon Dioxide 25 (22-30) mmol/L Anion Gap 2 mmol/L BUN 11 (7-17) mg/dL Creatinine 0.58 (0.52-1.04) mg/dL Est GFR (CKD-EPI)AfAm >90 (>60 ml/min/1.73 sqM) Est GFR (CKD-EPI)NonAf >90 (>60 ml/min/1.73 sqM) Glucose 105 H (74-99) mg/dL Plasma Lactic Acid Darrius (0.7-2.0) mmol/L Calcium 8.5 (8.4-10.2) mg/dL Magnesium 1.8 (1.6-2.3) mg/dL Total Bilirubin 1.1 (0.2-1.3) mg/dL AST 29 (14-36) U/L ALT 17 (9-52) U/L Alkaline Phosphatase 98 (38-126) U/L Troponin I (0.000-0.034) ng/mL NT-Pro-B Natriuret Pep 239 pg/mL Total Protein 6.3 (6.3-8.2) g/dL Albumin 2.6 L (3.5-5.0) g/dL Amylase 34 (30-110) U/L Lipase 81 (23-300) U/L 09/05/18 09/05/18 09/05/18 Range/Units 16:05 16:05 16:05 WBC (3.8-10.6) k/uL RBC (3.80-5.40) m/uL Hgb (11.4-16.0) gm/dL Hct (34.0-46.0) % MCV (80.0-100.0) fL MCH (25.0-35.0) pg MCHC (31.0-37.0) g/dL RDW (11.5-15.5) % Plt Count (150-450) k/uL Neutrophils % % Lymphocytes % % Monocytes % % Eosinophils % % Basophils % % Neutrophils # (1.3-7.7) k/uL Lymphocytes # (1.0-4.8) k/uL Monocytes # (0-1.0) k/uL Eosinophils # (0-0.7) k/uL Basophils # (0-0.2) k/uL Macrocytosis PT 11.3 (9.0-12.0) sec INR 1.1 (<1.2) APTT 26.7 (22.0-30.0) sec Sodium (137-145) mmol/L Potassium (3.5-5.1) mmol/L Chloride (98-107) mmol/L Carbon Dioxide (22-30) mmol/L Anion Gap mmol/L BUN (7-17) mg/dL Creatinine (0.52-1.04) mg/dL Est GFR (CKD-EPI)AfAm (>60 ml/min/1.73 sqM) Est GFR (CKD-EPI)NonAf (>60 ml/min/1.73 sqM) Glucose (74-99) mg/dL Plasma Lactic Acid Darrius 1.1 (0.7-2.0) mmol/L Calcium (8.4-10.2) mg/dL Magnesium (1.6-2.3) mg/dL Total Bilirubin (0.2-1.3) mg/dL AST (14-36) U/L ALT (9-52) U/L Alkaline Phosphatase (38-126) U/L Troponin I <0.012 (0.000-0.034) ng/mL NT-Pro-B Natriuret Pep pg/mL Total Protein (6.3-8.2) g/dL Albumin (3.5-5.0) g/dL Amylase (30-110) U/L Lipase (23-300) U/L Disposition Clinical Impression: Anemia, Left breast mass Disposition: ADMITTED IP TO THIS HOSP Condition: Fair Referrals: Mark Estrada MD [Primary Care Provider] - 1-2 days Time of Disposition: 18:08
[2018-09-05] MEDS ORDERED: MORPHINE SULFATE 4 MG/ML SYRINGE IV STA (15:34)
[2018-09-05] MEDS: SODIUM CHLORIDE 0.9% 1,000 ML IV SCH (16:02)
[2018-09-05 16:29] LABS: INR 1.1 (<1.2); Partial Thromboplastin Time 26.7 sec (22.0-30.0); Prothrombin Time 11.3 sec (9.0-12.0)
[2018-09-05 16:30] LABS: Basophils % (A) 0 %; Eosinophils # (A) 0.1 k/uL (0-0.7); Eosinophils % (A) 5 %; HCT 22.4 % (34.0-46.0); Lymphocytes # (A) 0.7 k/uL (1.0-4.8); Lymphocytes % (A) 32 %; MCH 33.7 pg (25.0-35.0); MCHC 33.8 g/dL (31.0-37.0); MCV 99.7 fL (80.0-100.0); Macrocytosis Slight; Mean Platelet Volume 9.5; Monocytes # (A) 0.2 k/uL (0-1.0); Monocytes % (A) 9 %; Neutrophils # (A) 1.1 k/uL (1.3-7.7); Neutrophils % (A) 51 %; RBC 2.24 m/uL (3.80-5.40); RDW 15.6 % (11.5-15.5); WBC 2.1 k/uL (3.8-10.6)
[2018-09-05 16:32] LABS: ALT 17 U/L (9-52); AST 29 U/L (14-36); African American GFR (CKD) >90 (>60 ml/min/1.73 sqM); Alkaline Phosphatase 98 U/L (38-126); Amylase 34 U/L (30-110); Anion Gap 2 mmol/L; Blood Urea Nitrogen 11 mg/dL (7-17); Calcium 8.5 mg/dL (8.4-10.2); Carbon Dioxide 25 mmol/L (22-30); Chloride 110 mmol/L (98-107); Glucose 105 mg/dL (74-99); Lipase 81 U/L (23-300); Magnesium 1.8 mg/dL (1.6-2.3); Sodium 137 mmol/L (137-145); Total Bilirubin 1.1 mg/dL (0.2-1.3); Total Protein 6.3 g/dL (6.3-8.2)
[2018-09-05 16:33] LABS: HGB 7.6 gm/dL (11.4-16.0); Platelet Count 75 k/uL (150-450)
[2018-09-05 16:35] LABS: Albumin 2.6 g/dL (3.5-5.0); Potassium 3.7 mmol/L (3.5-5.1)
--- NOTE | 2018-09-05 17:00 | XR ---
EXAMINATION TYPE: XR chest 2V DATE OF EXAM: 09/05/2018 COMPARISON: 09/06/2017 HISTORY: Chest pain for approximately one month TECHNIQUE: Frontal and lateral views of the chest are obtained. FINDINGS: Right-sided Mediport terminates in the cavoatrial junction. There is no focal air space op acity, pleural effusion, or pneumothorax seen. The cardiac silhouette size is within normal limits. The osseous structures are intact. Minimal multilevel degenerative changes of the spine are noted. IMPRESSION: No acute cardiopulmonary process.
[2018-09-05] MEDS ORDERED: HYDROmorphone 0.5 MG/0.5 ML SYRINGE IVP STA (17:22)
[2018-09-05] MEDS ORDERED: NALOXONE 0.4 MG/ML 1 ML VIAL IV PRN (18:09)
[2018-09-05] MEDS: HYDROcodone/APAP 10-325MG 1 EACH TAB PO PRN (20:04)
[2018-09-05] MEDS: HYDROmorphone 0.5 MG/0.5 ML SYRINGE IVP PRN (22:24)
[2018-09-06] MEDS: HYDROmorphone 0.5 MG/0.5 ML SYRINGE IVP PRN ×4 (02:01→15:40)
[2018-09-06] MEDS: HYDROcodone/APAP 10-325MG 1 EACH TAB PO PRN ×3 (07:01→19:26)
[2018-09-06] MEDS: SODIUM CHLORIDE 0.9% 1,000 ML IV SCH ×3 (07:02→21:56)
[2018-09-06] MEDS: IOPAMIDOL-300 CONTRAST 30 ML VIAL (ORAL USE) PO PRN ×2 (12:45→13:40)
[2018-09-06] MEDS: MORPHINE SULFATE 4 MG/ML SYRINGE IV PRN ×3 (13:00→21:56)
--- NOTE | 2018-09-06 15:15 | CT ---
EXAMINATION TYPE: CT ChestAbdPelvis w con DATE OF EXAM: 09/06/2018 COMPARISON: 04/19/2018, 07/16/2017 HISTORY: Abdominal pain. Hx of breast CA CT DLP: 889.3 mGycm Automated exposure control for dose reduction was used. CONTRAST: CT scan of the chest, abdomen and pelvis is performed with Oral Contrast and with IV Contrast, patien t injected with 100 mL of Isovue 300. FINDINGS: LUNGS: Diffuse emphysematous changes are seen with no consolidation or pneumothorax. Subsegmental amelia ear changes are seen suggestive of scar or atelectasis. MEDIASTINUM: Heart is enlarged. No pathologic adenopathy. Aorta of normal caliber. OTHER: Is a large chest wall mass on the left measuring 3.6 cm suspicious for malignancy. Mediport c atheter on the right noted. LIVER/GB: Liver is diminutive in size. No discrete mass. PANCREAS: No significant abnormality is seen. SPLEEN: Spleen is markedly enlarged measuring 16 cm. ADRENALS: There is a 2.9 cm right adrenal mass. This is similar appearance to the prior exam. KIDNEYS: No significant abnormality is seen. BOWEL: Bowel gas pattern nonspecific. LYMPH NODES: No greater than 1 cm abdominal or pelvic lymph nodes are appreciated. Shotty adenopathy in the gastrohepatic ligament and peripancreatic region. OSSEOUS STRUCTURES: Hypertrophic and degener ative change of the spine. Sclerotic lesion left iliac bone nonspecific and stable from the prior exa m OTHER: There is a large amount of ascites. Aorta of normal caliber. IMPRESSION: 1. Large 3.6 cm chest wall mass on the left suspicious for malignancy. 2. COPD. 3. Stable right adrenal mass. 2.9 cm. 4. Large amount of ascites. 5. Correlate for hepatocellular dysfunction. 6. Splenomegaly.
--- NOTE | 2018-09-06 15:30 | NM ---
EXAMINATION TYPE: NM bone scan whole body DATE OF EXAM: 09/06/2018 COMPARISON: 07/16/2017 HISTORY: Restaging. History of breast cancer, triple negative. Delayed whole-body scanning was performed following the injection of 22.4 mCi Tc 99m MDP. Images acq uired 3 hours post injection. FINDINGS: Degenerative changes of the appendicular and axial skeleton are seen as uptake at the glenohumeral eamon ints, acromioclavicular joints, sternoclavicular joints, hips, sacroiliac joints, knees, ankles, wris ts, and elbows that are overall symmetric. No suspicious focal radiotracer uptake is seen. No suspici ous uptake is seen to suggest osseous metastasis. IMPRESSION: No suspicious uptake to suggest osseous metastasis. Degenerative changes are seen of the axial and ap pendicular skeleton.
--- NOTE | 2018-09-06 17:07 | P.CONS ---
History of Present Illness - Reason for Consult Consult date: 09/06/18 pancytopenia, Hx of triple negative breast cancer Requesting physician: Reymundo Timmons - Chief Complaint chest wall pain - History of Present Illness Ms. Barakat is a very pleasant female pt of Dr. Puente who presented in 2011 with hematemesis and BRBPR. Found to have esophageal varices due to portal hypertension from cirrhosis. Work up revealed Hepatitis C. Varices treated with banding by Dr. Joseph. Unfortunately, She did not f/u on a regular basis. She was last seen in 2013 for recurrent bleeding requiring repeat banding. She was given a medicine for Hep C at that time but, did not take it. She presented to PCP, Dr. Estrada, in 12/2015, c/o abdominal pain in the RUQ, work up included CT abdomen, which revealed a small, cirrhotic liver with splenomegaly and wall thickening of the distal stomach and duodenum, gallbladder wall appeared thickened, US revealed same findings, but no gallstones. NM hepatobiliary scan was negative, pain gradually resolved spontaneously. CBC on 01/03/16 showed a Hgb of 14.5, WBC 3.1, ANC 1.71, and plt 99, she was sent to Dr. Puente for further evaluation and recommendations. Additional labs were ordered, all of which were negative, AFP was normal. Cytopenias felt to be due to hep C/liver disease and splenic sequestration, and observation was recommended as counts were in a safe range. She was admitted to [facility] on 07/08/16 with abdominal pain as she had run out of pain meds. She was incidentally found to have a left breast mass on exam. US on 07/08/16 revealed a 5.6 x 3.3 x 3.5 cm solid lesion at 9 o clock. She had a core biopsy on 07/10/16, and was discharged. Biopsy came back positive for grade 3 invasive ductal carcinoma, ER neg, [place] weakly positive 5-10% and Her 2 IHC 1+ so, essentially triple negative. Staging PET was negative for metastases. She was started on DD AC, had 3 cycles (last on 09/12/16), treatment was then stopped due to neutropenic fever, followed by prolonged cytopenias, and then overt liver decompensation, leading to recurrent hospitalizations from October - Dec 2016. She did appear to have had a response and was assessed for surgery. However, she was not felt to be a candidate for general anesthesia. She was referred to [facility], who also concurred that she was not a surgical candidate. She was last seen in the office in March 2017. We are asked to see patient today for pancytopenia and her history of breast cancer. When I saw patient today she was very upset, she would not let me physically examine her, she stated that she would show me the breast mass she has. Any questions regarding her treatment in the past about her hepatitis C or her breast cancer she becomes defensive and is blaming others for her not receiving the appropriate treatment. Review of Systems 14 point review of systems is difficult to obtain, it is as stated in HPI Past Medical History Past Medical History: Cancer, COPD, GERD/Reflux, GI Bleed, Hearing Disorder / Deafness, Hypertension, Liver Disease Additional Past Medical History / Comment(s): Hepatitis C, intractable ascities with multiple paracentesis, cirrhosis, peritonitis, pancytopenia, vertigo; "benign abd mass", multiple upper GI bleeds, esophageal varicies/esophageal banding, left breast cancer had chemo last on 09-12-16-did not tolerate-completed only 3 cycles-then it was stopped/no surgery, lt ear hearing loss. History of Any Multi-Drug Resistant Organisms: None Reported Past Surgical History: Adenoidectomy, Tonsillectomy Additional Past Surgical History / Comment(s): Multiple paracentesises, EGDs, esophageal banding, right chest mediport 08-06-16, l breast bx., Past Anesthesia/Blood Transfusion Reactions: No Reported Reaction Additional Past Anesthesia/Blood Transfusion Reaction / Comm: blood transfusions- no reaction Past Psychological History: Anxiety Additional Psychological History / Comment(s): Pt's son lives with her in a 2 story home with 1 front step. Pt's bathroom and bedroom on 2nd floor so pt now has a hospital bed and bsc on first floor. Smoking Status: Current every day smoker Past Alcohol Use History: None Reported Additional Past Alcohol Use History / Comment(s): Patient started smoking at age 13/2 a pack a day and cut back to one to 3 cigarettes per day no history of alcohol abuse. Patient lives with her son. She is currently on disability. Past Drug Use History: None Reported - Past Family History Mother Family Medical History: Cancer Additional Family Medical History / Comment(s): of lung ca at the age of 59yrs. She was a smoker. Father Family Medical History: Myocardial Infarction ([place]) Additional Family Medical History / Comment(s): from 2nd heart attack at the age of 59yrs. Medications and Allergies Home Medications Medication Instructions Recorded Confirmed Type HYDROcodone/APAP 10-325MG [[place] 1 tab PO QID PRN 04/05/18 08/12/18 History 10-325] Allergies Allergy/AdvReac Type Severity Reaction Status Date / Time No Known Allergies Allergy Verified 09/05/18 15:58 Physical Exam Vitals: Vital Signs Temp Pulse Pulse Resp BP BP Pulse Ox 09/06/18 15:00 98.5 F 82 16 101/60 97 09/06/18 07:00 98.0 F 85 16 110/69 97 09/06/18 01:58 120/59 09/06/18 01:00 98.3 F 74 16 99/63 97 09/05/18 19:44 96.7 F L 89 16 128/59 97 09/05/18 19:00 82 20 123/66 97 09/05/18 18:30 82 17 113/77 97 09/05/18 18:00 89 16 118/74 96 09/05/18 17:30 84 18 129/75 96 09/05/18 17:00 83 20 114/66 96 Intake and Output 09/06/18 09/06/18 09/06/18 06:59 14:59 22:59 Intake Total 360 700 Balance 360 700 Intake: Intake, IV Titration 700 Amount Sodium Chloride 0.9% 1, 700 000 ml @ 100 mls/hr IV . Q10H [facility] Rx#:[id number] Oral 360 Other: Voiding Method Toilet Toilet # Voids 2 3 Well-developed, adequately nourished female sitting at the bedside, she is in moderate emotional distress, she is alert, oriented to self place time and some of her situation, she is able to move all 4 extremities independently, patient is able to stand on her own, she is refusing a physical exam. She allowed me to visualize the left breast mass, on visualization this is about 3 cm oblong, 9 o'clock position lateral to the sternum, the center does appear as though it is going to ulcerate, there is no nipple inversion, no other disch arge, the other breast looks well on visual inspection. No swelling in the lower extremities is noted, skin is warm and dry to the touch - Constitutional General appearance: average body habitus, disheveled, mild distress - EENT Eyes: anicteric sclerae, EOMI, poor dentition ENT: hearing grossly normal - Respiratory respirations even and unlabored Results CBC & Chem 7: 09/05/18 16:05 09/05/18 16:05 Assessment and Plan (1) Triple negative malignant neoplasm of breast Narrative/Plan: On visual inspection patient does appear to have recurrent breast cancer. For staging CT of the chest abdomen and pelvis, tumor markers and a nuclear medicine bone scan have been ordered. We will request interventional radiology to biopsy the breast. Patient said that she would do this. Current Visit: Yes Status: Acute Priority: High Code(s): C50.919 - MALIGNANT NEOPLASM OF UNSP SITE OF UNSPECIFIED FEMALE BREAST SNOMED Code(s): 120034562 (2) Pancytopenia Narrative/Plan: Pancytopenia workup has been done in the past, it is felt that her cytopenias are related to cirrhotic liver. Possibly exacerbated with malignancy. None of her labs are low enough requiring intervention at this time. I will check with Dr. Puente if there are any particular pancytopenia labs that he would like to recheck. Current Visit: No Status: Chronic Priority: Medium Code(s): D61.818 - OTHER PANCYTOPENIA SNOMED Code(s): 939689943
--- NOTE | 2018-09-06 18:19 | HP ---
HISTORY AND PHYSICAL CHIEF COMPLAINT: Left anterior chest pain. HISTORY OF PRESENT ILLNESS: This is another admission of many for this 52-year-old chronically ill female. She has a long-standing history of hepatitis C and cirrhosis with intractable ascites. She was also diagnosed a year or two ago having a carcinoma left breast, but refused any kind of treatment or any followup whatsoever. She usually comes to the hospital for ascites and paracentesis. She presented this time because of the left anterior chest pain. In the emergency room, she would not allow the physician to do an examination. She has always been in denial. She does not want to have anything examined, touched or discussed. She refuses to even look at her breast. Pain is not likely to be cardiac by history, but she is a poor historian. REVIEW OF SYSTEMS: She denies any headaches, change in vision or hearing, hemoptysis, cough, increased abdominal pain, nausea, vomiting, melena, hematochezia, acholic stools, dark urine, and dysuria, hematuria, etc. Past medical history, family history, personal and social history are all otherwise unremarkable or unchanged. The only think she takes is Vicodin 10 q.i.d. for the pain. PHYSICAL EXAMINATION: Blood pressure is 101/64 with a pulse of 71, respirations of 26, and she is afebrile. In general, she appeared to be asthenic, pale and chronically ill. Skin was dry and lymph nodes are not enlarged. Head, ears, eyes, nose, mouth, and throat were grossly normal. She will not allow an exam. Chest was not auscultated. In moving about it was noticed that she has a mass in the left anterior chest between the sternum and the areola. It is slightly inflamed and shiny. She will not allow an abdominal exam. Neurological: She seems to be intact. IMPRESSION: 1. Left anterior chest pain. 2. Untreated carcinoma of the left breast. 3. Cirrhosis secondary to hepatitis C with intractable ascites. PLAN: 1. Bed rest. 2. IV fluids. 3. Keep her on her analgesics. 4. Consult with Oncology and breast surgery. MMODL / IJN: [id number] /
--- NOTE | 2018-09-06 18:25 | PN ---
PROGRESS NOTE DATE OF SERVICE: 09/06/2018. CHIEF COMPLAINT: Left anterior chest pain. HISTORY OF PRESENT ILLNESS: This lady is not changed. She is having pain which seems to be localized in the chest wall area. She is not coughing, coughing up blood, sputum, etc. She refuses an exam. IMPRESSION: 1. Left anterior chest pain, etiology unknown. 2. Left anterior chest mass due to carcinoma of the breast. 3. Chronic obstructive pulmonary disease. 4. Chills. 5. Hepatitis C. 6. Intractable ascites. 7. Depression. PLAN: Await for Oncology and breast surgery to see her. MMODL / IJN: [id number] /
[2018-09-06 18:27] LABS: CA27.29 Breast Ca Marker 10.4 U/mL (0.0-38.5)
[2018-09-07] MEDS: HYDROmorphone 0.5 MG/0.5 ML SYRINGE IVP PRN ×5 (00:14→23:02)
[2018-09-07] MEDS: HYDROcodone/APAP 10-325MG 1 EACH TAB PO PRN ×3 (02:56→22:12)
[2018-09-07] MEDS: MORPHINE SULFATE 4 MG/ML SYRINGE IV PRN ×4 (04:48→17:01)
[2018-09-07] MEDS: SODIUM CHLORIDE 0.9% 1,000 ML IV SCH ×2 (07:15→23:07)
[2018-09-07 08:00] LABS: Basophils % (A) 0 %; Eosinophils # (A) 0.1 k/uL (0-0.7); Eosinophils % (A) 7 %; HCT 24.4 % (34.0-46.0); HGB 7.6 gm/dL (11.4-16.0); Hypochromasia Moderate; Lymphocytes # (A) 0.7 k/uL (1.0-4.8); Lymphocytes % (A) 37 %; MCH 32.4 pg (25.0-35.0); MCV 104.5 fL (80.0-100.0); Macrocytosis Moderate; Mean Platelet Volume 8.9; Monocytes # (A) 0.2 k/uL (0-1.0); Monocytes % (A) 8 %; Neutrophils # (A) 0.9 k/uL (1.3-7.7); Neutrophils % (A) 46 %; RBC 2.33 m/uL (3.80-5.40); RDW 15.2 % (11.5-15.5); WBC 1.9 k/uL (3.8-10.6)
[2018-09-07 08:12] LABS: Platelet Count 69 k/uL (150-450)
[2018-09-07] MEDS ORDERED: LORazepam 2 MG/ML INJ IV STA (10:02)
--- NOTE | 2018-09-07 11:41 | USB ---
ULTRASOUND GUIDED CORE BIOPSY LEFT BREAST MASS: CLINICAL HISTORY: Left breast mass FINDINGS: The procedure was explained to the patient. The risks, complications, benefits and alternatives were discussed and any questions were answered. Informed consent was obtained. Patient was placed supin e on the ultrasound table and prepped and draped in the usual sterile fashion. Utilizing a 18-gauge core biopsy needle, 2 passes were made into the requested mass. The patient had difficulty cooperati ng with exam and would not allow a third pass. Patient was stable throughout the procedure. Pathology is pending. All elements of maximal barrier and sterile technique were utilized. IMPRESSION: 1. Successful ultrasound guided core biopsy left breast mass.
--- NOTE | 2018-09-07 12:38 | P.GSHP ---
History of Present Illness H&P Date: 09/07/18 Chief Complaint: Left breast pain Lori is a 52-year-old white female who presented to the hospital with a complaint of left breast pain. Her medical history is significant for a history of esophageal varices secondary to portal hypertension from cirrhosis. Her cirrhosis is believed to be secondary to hepatitis C. She was diag Social history: Smoking: Current every day smoker Alcohol: Negative Patient started smoking at [place] has no history of alcohol abuse patient lives with her son she is currently on disability nosed in 2011 with hematemesis and bright blood per rectum and the findings were esophageal varices as stated. She subsequently underwent banding of the varices. She evidently did not complete her treatment for hepatitis C. She was noted to have a small liver and splenomegaly. In 2016 she was noted to have a left breast mass on exam. An ultrasound revealed a 5.6 x 3.5 cm solid lesion at 9:00. She had a core biopsy and was diagnosed with malignancy. This was grade 3 invasive ductal carcinoma ER negative MI positive HER-2/rm negative. Staging PET scan was negative for metastatic disease. She underwent 3 cycles of chemotherapy. Treatment was stopped secondary to neutropenic fever. She had recurrent hospitalizations from October through December 2016 secondary to liver decompensation. She did appear to have had a response and was assessed for surgery. She was not felt to be a candidate for general anesthesia. She was referred to [facility] concur that she was not a surgical candidate. She presents now with swelling and pain in the left breast. Medical history: 1. Left breast cancer 2. COPD 3. GERD 4. GI bleed 5. Hearing disorder 6. Hypertension 7. Hepatitis C liver disease Surgical history: 1. Esophageal banding 2. Right chest Mediport 3. Left breast biopsy 4. Multiple paracentesis Family history: Mother: of lung cancer at 59 she was a smoker Father: Myocardial infarction Social history: Smoke: Current every day smoker Alcohol: Negative Patient lives with her son she is currently on disability - EENT Ears: bilateral: decreased hearing (vertigo) - Breasts Breasts: bilateral: as per HPI - Cardiovascular Cardiovascular: Reports high blood pressure - Respiratory Comment: Nicotine dependence, COPD, - Gastrointestinal Comment: Hepatitis C, has had multiple paracentesis, esophageal varices, cirrhosis, - Psychiatric Psychiatric: Reports anxiety Past Medical History Past Medical History: Cancer, COPD, GERD/Reflux, GI Bleed, Hearing Disorder / Deafness, Hypertension, Liver Disease Additional Past Medical History / Comment(s): Hepatitis C, intractable ascities with multiple paracentesis, cirrhosis, peritonitis, pancytopenia, vertigo; "benign abd mass", multiple upper GI bleeds, esophageal varicies/esophageal banding, left breast cancer had chemo last on 09-12-16-did not tolerate-completed only 3 cycles-then it was stopped/no surgery, lt ear hearing loss. History of Any Multi-Drug Resistant Organisms: None Reported Past Surgical History: Adenoidectomy, Tonsillectomy Additional Past Surgical History / Comment(s): Multiple paracentesises, EGDs, esophageal banding, right chest mediport 08-06-16, l breast bx., Past Anesthesia/Blood Transfusion Reactions: No Reported Reaction Additional Past Anesthesia/Blood Transfusion Reaction / Comment(s): blood tr ansfusions- no reaction Past Psychological History: Anxiety Additional Psychological History / Comment(s): Pt's son lives with her in a 2 story home with 1 front step. Pt's bathroom and bedroom on 2nd floor so pt now has a hospital bed and bsc on first floor. Smoking Status: Current every day smoker Past Alcohol Use History: None Reported Additional Past Alcohol Use History / Comment(s): Patient started smoking at age 13/2 a pack a day and cut back to one to 3 cigarettes per day no history of alcohol abuse. Patient lives with her son. She is currently on disability. Past Drug Use History: None Reported - Past Family History Mother Family Medical History: Cancer Additional Family Medical History / Comment(s): of lung ca at the age of 59yrs. She was a smoker. Father Family Medical History: Myocardial Infarction ([place]) Additional Family Medical History / Comment(s): from 2nd heart attack at t he age of 59yrs. Medications and Allergies Home Medications Medication Instructions Recorded Confirmed Type HYDROcodone/APAP 10-325MG [[place] 1 tab PO QID PRN 04/05/18 09/07/18 History 10-325] Allergies Allergy/AdvReac Type Severity Reaction Status Date / Time No Known Allergies Allergy Verified 09/05/18 15:58 Surgical - Exam Vital Signs Temp Pulse Resp BP Pulse Ox 98.2 F 94 18 148/70 99 09/05/18 15:06 09/05/18 15:06 09/05/18 15:06 09/05/18 15:06 09/05/18 15:06 BMI 22.2 - General cachectic - Eyes normal ocular movement - ENT normal pinna, normal nares - Neck no bruits, trachea midline, no lymphadectomy - Respiratory normal expansion, normal respiratory effort, clear to auscultation - Cardiovascular Rhythm: regular Heart Sounds: normal: S1, S2 - Abdomen Abdomen: soft, distended - Integumentary Erythematous lesion left breast medial aspect - Neurologic no disoriented, no combative - Musculoskeletal normal posture - Psychiatric oriented to time, oriented to person, oriented to place, speech is normal, memory intact Breast examination: Right breast: No dominant masses or not his of concern appreciated right axilla no adenopathy of concern Left breast: Patient would not let me examine the pressure set at was too painful visually there is an erythematous appearing mass in the medial aspect of the breast, I could not ascertain if this was fixed to she would not let me examine it Left axilla: No adenopathy of concern Results Impression: 1. 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 History of Pancytopenia 3. Hepatitis C 4. History of esophageal varices Plan: 1. Computed tomography scan of the chest abdomen and pelvis. Await results of these studies 2. Nuclear bone scan 3. Ultrasound core biopsy of the area of concern in the left breast 4. Medical management of hepatitis C - Labs 09/07/18 07:06 09/05/18 16:05 Abnormal Lab Results - Last 24 Hours (Table) 09/07/18 Range/Units 07:06 WBC 1.9 L (3.8-10.6) k/uL RBC 2.33 L (3.80-5.40) m/uL Hgb 7.6 L (11.4-16.0) gm/dL Hct 24.4 L (34.0-46.0) % MCV 104.5 H (80.0-100.0) fL Plt Count 69 L (150-450) k/uL Neutrophils # 0.9 L (1.3-7.7) k/uL Lymphocytes # 0.7 L (1.0-4.8) k/uL
--- NOTE | 2018-09-07 17:15 | P.PN ---
Subjective Progress Note Date: 09/07/18 Principal diagnosis: Highly suspect recurrent breast cancer When seen patient is status post breast biopsy. I was contacted by Interventional Radiology stated they were only able to make 2 passes due to patient's anxiety. I discussed with patient her metastatic workup as well as tumor markers. We discussed the potentials for treatment. Patient is still refusing physical exam. Her complaint is pain in the chest wall area. Objective - Vital Signs Vital signs: Vital Signs Temp 97.9 F 09/07/18 07:00 Pulse 76 09/07/18 12:05 Resp 14 09/07/18 11:15 BP 105/67 09/07/18 12:05 Pulse Ox 93 L 09/07/18 11:15 Intake & Output 09/06/18 09/07/18 09/07/18 18:59 06:59 18:59 Intake Total 700 236 Balance 700 236 Intake: Intake, IV Titration 700 Amount Sodium Chloride 0.9% 1, 700 000 ml @ 100 mls/hr IV . Q10H RAFAEL Rx#:[id number] Oral 236 Other: Voiding Method Toilet Toilet # Voids 3 1 2 - Exam Well-developed, frail, 52-year-old female who looks significantly older than her stated age, poor dentition, the chest wall on the left currently has a dressing in place, this is not blood soaked, there is no visible swelling. Patient's hands are warm to the touch, her abdomen does not visibly looked distended, maybe some trace edema in the lower extremities - Labs CBC & Chem 7: 09/07/18 07:06 09/05/18 16:05 Labs: Abnormal Lab Results - Last 24 Hours (Table) 09/07/18 Range/Units 07:06 WBC 1.9 L (3.8-10.6) k/uL RBC 2.33 L (3.80-5.40) m/uL Hgb 7.6 L (11.4-16.0) gm/dL Hct 24.4 L (34.0-46.0) % MCV 104.5 H (80.0-100.0) fL Plt Count 69 L (150-450) k/uL Neutrophils # 0.9 L (1.3-7.7) k/uL Lymphocytes # 0.7 L (1.0-4.8) k/uL Assessment and Plan (1) Triple negative malignant neoplasm of breast Narrative/Plan: History of. Patient never completed treatment for the same. Unfortunately patient's significant liver disease prevented her from completing chemotherapy. She was not deemed a surgical candidate at the of evaluation for surgery I reviewed with patient her CT of the chest abdomen and pelvis as well as the nuclear medicine bone scan. There currently is no evidence of metastatic d isease. Tumor markers were both within normal limits. I'm unsure at this time, based on her liver disease, if she would be a candidate for chemotherapy. I see that Dr. Eyal Mata has been consulted, pending her evaluation of the patient and opinion regarding surgical intervention. ER, [place], HER-2/rm pending. BRCA testing is appropriate and will be requested on peripheral blood. Current Visit: Yes Status: Acute Priority: High Code(s): C50.919 - MALIGNANT NEOPLASM OF UNSP SITE OF UNSPECIFIED FEMALE BREAST SNOMED Code(s): 268419910 (2) Pancytopenia Narrative/Plan: Pancytopenia workup has been done in the past, it is felt that her cytopenias are related to cirrhotic liver. Possibly exacerbated with malignancy. None of her labs are low enough requiring intervention at this time. Labs ordered today Current Visit: No Status: Chronic Priority: Medium Code(s): D61.818 - OTHER PANCYTOPENIA SNOMED Code(s): 472672577
--- NOTE | 2018-09-07 19:53 | PN ---
PROGRESS NOTE DATE OF SERVICE: 09/07/2018 CHIEF COMPLAINT: Left anterior chest pain. HISTORY OF PRESENT ILLNESS: This lady is continue to have the pain. Her ascites is not a problem at this time. Studies are being done and she has not been seen by Breast Surgery yet. PHYSICAL EXAMINATION: Not allowed. IMPRESSION: 1. Left anterior chest pain. 2. Carcinoma of the left breast. 3. Hepatitis C. 4. Cirrhosis. 5. Intractable ascites. 6. Chronic obstructive pulmonary disease. PLAN: Await discussion with Breast Surgery. She has been by Oncology. MMODL / IJN: [id number] /
[2018-09-08] MEDS: MORPHINE SULFATE 4 MG/ML SYRINGE IV PRN ×3 (00:16→09:55)
[2018-09-08 01:01] LABS: Iron Saturation 15.38 (12.00-45.00)
[2018-09-08 01:59] LABS: Protein, Total 5.4 g/dL (6.2-8.2)
[2018-09-08] MEDS: HYDROmorphone 0.5 MG/0.5 ML SYRINGE IVP PRN ×6 (02:13→22:55)
[2018-09-08] MEDS: SODIUM CHLORIDE 0.9% 1,000 ML IV SCH ×2 (05:39→12:46)
[2018-09-08] MEDS: HYDROcodone/APAP 10-325MG 1 EACH TAB PO PRN ×3 (07:08→20:31)
[2018-09-08] MEDS ORDERED: TEMAZEPAM 15 MG CAP PO PRN (14:26)
[2018-09-08] MEDS ORDERED: ACETAMINOPHEN TAB 500 MG TAB PO PRN (14:26)
[2018-09-08] MEDS: NICOTINE 14MG/24HR PATCH TRANSDERM SCH (15:48)
[2018-09-08] MEDS: HEPARIN SODIUM,PORCINE 5,000 UNIT/ML 1 ML VIAL SQ SCH ×2 (15:49→19:35)
--- NOTE | 2018-09-08 17:12 | PN ---
PROGRESS NOTE DATE OF SERVICE: 09/08/2018 This 52-year-old woman, being followed by Dr. Estrada in the outpatient setting, was admitted with a left breast mass as well as severe pain. The patient had a biopsy by Interventional Radiology. Final reports are pending at this time. The patient is also complaining of severe pain in that region. A bone scan is negative for any evidence of metastasis. Tumor markers have been ordered. The patient is being followed by multiple consultants at this time. The patient is complaining of severe anxiety, also. Past medical history reviewed. REVIEW OF SYSTEMS: CARDIOVASCULAR SYSTEM: No angina, palpitations. RESPIRATORY SYSTEM: No cough. GI: No nausea, vomiting. : No dysuria or retention. NERVOUS SYSTEM: No numbness, weakness. CURRENT MEDICATIONS: Reviewed. They include: 1. [place] 10 mg q.i.d. p.r.n. 2. Dilaudid 0.5 mg q.3 p.r.n. 3. Narcan 0.2 q.2 p.r.n. 4. Saline. PHYSICAL EXAMINATION: Patient is alert, oriented x3. Pulse 87, blood pressure 108/64, respirations 17, temperature 98.4, pulse ox 94% on room air. HEENT: Conjunctivae normal. Oral mucosa moist. NECK: No jugular venous distention. No carotid bruit. No lymph node enlargement. CARDIOVASCULAR SYSTEM: S1, S2 muffled. RESPIRATORY SYSTEM: Breath sounds diminished at the bases. A few scattered rhonchi. No crackles. ABDOMEN: Soft, scaphoid, nontender. LEGS: No edema. No swelling. NERVOUS SYSTEM: No focal deficit. Mild diffuse weakness. LABS: WBC 1.9, hemoglobin 7.6, platelets 69, iron 36. Total protein is 5.4, albumin 2.6. Vitamin B12 and RBC folate are high. Free kappa light chains are quantitatively high. ASSESSMENT: 1. Mass lesion in the left breast, possibly carcinoma of breast recurrence, status post fine needle aspiration biopsy. 2. Severe left-sided chest pain. 3. Severe anxiety. 4. Pancytopenia, possibly secondary to malignancy. 5. History of chronic obstructive pulmonary disease. 6. Gastroesophageal reflux disease. 7. History of gastrointestinal bleed. 8. Hypertension. 9. History of liver disease secondary to hepatitis C with chronic cirrhosis of the liver. 10.History of multiple abdominal paracenteses. 11.History of peritonitis. 12.History of anxiety. 13.Continued ongoing nicotine dependence. RECOMMENDATIONS AND DISCUSSION: In this 52-year-old woman who presented with multiple complex medical issues, we will monitor the patient closely, continue the current medications, continue with symptomatic treatment, await the final biopsy report. We will optimize the pain medications. I would recommend consulting Psych for severe anxiety. Otherwise, closely follow with Surgery as well as Hematology/Oncology. Guarded prognosis because of multiple complex medical issues. Further recommendations to follow. Will resume the home medications. DVT prophylaxis. See orders for further details. Further recommendations to follow. Discussed with the patient, who understands and agrees. MMODL / IJN: [id number] /
--- NOTE | 2018-09-08 18:45 | PN ---
PROGRESS NOTE CHIEF COMPLAINT: CA of the left breast, cirrhosis, hepatitis C and ascites. HISTORY OF PRESENT ILLNESS: This lady is becoming extremely upset. She is being uncooperative and very demanding. She has been seen and evaluated by breast surgery, but it is not clear if she will go through with treatment because she did not before. She now states she is "willing to get treatment." She is very upset with me and has requested a new physician and one has been assigned her case. MMIVELISSE / IJN: [id number] /
[2018-09-09] MEDS: HYDROmorphone 0.5 MG/0.5 ML SYRINGE IVP PRN ×7 (01:37→21:23)
[2018-09-09] MEDS: HYDROcodone/APAP 10-325MG 1 EACH TAB PO PRN ×3 (02:33→16:17)
[2018-09-09] MEDS: HEPARIN SODIUM,PORCINE 5,000 UNIT/ML 1 ML VIAL SQ SCH ×2 (07:43→21:23)
[2018-09-09] MEDS: NICOTINE 14MG/24HR PATCH TRANSDERM SCH (07:45)
[2018-09-09 07:57] LABS: African American GFR (CKD) >90 (>60 ml/min/1.73 sqM); Anion Gap 4 mmol/L; Blood Urea Nitrogen 9 mg/dL (7-17); Calcium 8.4 mg/dL (8.4-10.2); Carbon Dioxide 24 mmol/L (22-30); Chloride 112 mmol/L (98-107); Glucose 92 mg/dL (74-99); Potassium 3.7 mmol/L (3.5-5.1); Sodium 140 mmol/L (137-145)
[2018-09-09 08:07] LABS: Basophils % (A) 0 %; Eosinophils # (A) 0.1 k/uL (0-0.7); Eosinophils % (A) 7 %; HCT 23.8 % (34.0-46.0); HGB 7.9 gm/dL (11.4-16.0); Hypochromasia Slight; Lymphocytes # (A) 0.7 k/uL (1.0-4.8); Lymphocytes % (A) 38 %; MCH 33.9 pg (25.0-35.0); MCHC 33.1 g/dL (31.0-37.0); MCV 102.5 fL (80.0-100.0); Macrocytosis Slight; Mean Platelet Volume 9.2; Monocytes # (A) 0.1 k/uL (0-1.0); Monocytes % (A) 8 %; Neutrophils % (A) 44 %; Platelet Count 61 k/uL (150-450); RBC 2.32 m/uL (3.80-5.40); RDW 15.4 % (11.5-15.5); WBC 1.8 k/uL (3.8-10.6)
[2018-09-09 08:08] LABS: Neutrophils # (A) 0.8 k/uL (1.3-7.7)
[2018-09-09 09:11] LABS: Methylmalonic Acid 0.13 umol/L (<0.40)
[2018-09-09] MEDS: SODIUM CHLORIDE 0.9% 1,000 ML IV SCH (11:25)
--- NOTE | 2018-09-09 14:09 | PN ---
PROGRESS NOTE DATE OF SERVICE: 09/09/2018. This is a 52-year-old woman who was admitted with mass lesion of the left breast, also had severe anxiety. Patient also had left-sided chest pain. The evaluation showed no evidence of metastasis but; however, a biopsy was done and hormone receptor status is pending at this time. Depending upon that, Dr. Whitehead might be performing surgery at this time. PAST MEDICAL HISTORY: Reviewed. REVIEW OF SYSTEMS: CARDIOVASCULAR: No angina. RESPIRATION: As mentioned earlier. GI: As mentioned earlier. : No dysuria. NERVOUS SYSTEM: As mentioned earlier. CURRENT MEDICATIONS: Reviewed and include: 1. Tylenol p.r.n. 2. [place] 10 mg q.6 b.i.d. p.r.n. 3. Dilaudid p.r.n. 4. Narcan. 5. Habitrol 14 daily. 6. Restoril. PHYSICAL EXAM: Patient is alert, oriented x3. The pulse is 86, blood pressure 100/60, respirations 16, temperature 98 degrees, pulse ox 94% on room air. HEENT: Conjunctivae normal. NECK: No jugular venous distension. CARDIOVASCULAR: S1, S2, muffled. RESPIRATION: Breath sounds diminished at the bases, a few scattered rhonchi, no crackles. ABDOMEN: Soft. nontender. LEGS: No edema, no swelling. NERVOUS SYSTEM: No focal deficits. Cyst in the left breast, left breast swelling with severe pain present. LABS: WBC is 1.8, hemoglobin is 7.9 sodium 140, potassium 3.7. ASSESSMENT: 1. Mass lesion in the left breast, possibly CA breast recurrence, status post fine- needle aspiration biopsy, pending hormone receptor status. 2. Severe left-sided chest pain. 3. Severe anxiety. 4. Pancytopenia, possibly malignancy or cirrhosis liver. 5. History of chronic obstructive pulmonary disease. 6. Gastroesophageal reflux disease. 7. History of gastrointestinal bleed. 8. Hypertension. 9. History of chronic liver disease secondary to hepatitis C with chronic cirrhosis of the liver. 10.History of multiple abdominal paracentesis. 11.History of peritonitis. 12.History of anxiety. 13.Continued ongoing nicotine dependence. RECOMMENDATION: In this 52-year-old woman who presented with multiple complex medical issues, will monitor the patient closely. Continue with the current management and symptomatic treatment. Otherwise, at this time I recommend await hormone status. Discussed with Dr. Puente regarding the plan of care and recommend to follow up with Dr. Whitehead in the outpatient setting for possible surgery if the on hormone receptor status is negative, otherwise, he will consider hormonal treatment to shrink the tumor further. Otherwise, overall prognosis guarded. Await psychiatric consultation. Discussed with the patient at length and prognosis guarded. Understands and agrees. Further recommendations to follow. MMODL / IJN: [id number] /
--- NOTE | 2018-09-09 17:42 | P.CN ---
Psychiatric Consult - . Consult date: 09/09/18 Consult:: 09/09/18 17:32 Identification: Patient is a 52-year-old female presented to the emergency room complaining of chest pain Reason for Consult: Strong anxiety History of Present Illness: Patient's chart was reviewed the patient was seen a nd interviewed in her room no family members were present Patient states she presented to the emergency room due to chest pain. She states that she is been anxious about leaving the hospital because she is having difficulty finding a primary care physician and can't be discharged until she finds 1. She states that she is eager to leave but could not tell me why she was so eager to leave the hospital and upset about not going home since she states that she continues to have some chest pain. Patient stated to me that she does have anxiety but it comes and goes and sometimes is worse than at other times but she has never received any treatment for this are is never received any psychotropic medication. Patient states that she has never had any auditory or visual hallucinations and does not endorse any other psychotic symptoms. Patient does not endorse any manic or depressive behavior and states that she's never had any suicidal ideation or suicide attempts. Patient states that she has no phobic behavior and states that she did have some anxiety as a child which caused her to leave school in the eighth grade. Patient states that she is eating well and that her sleep is somewhat disrupted. Patient patient had no other concerns at this time other than her inability to locate a primary care physician as well as concerns that her son should be seen by a psychiatrist with whom she lives. Past Psychiatric History: Patient denies any prior inpatient psychiatric treatment or outpatient treatment and has never been placed on psychotropic medication Past Medical/Surgical History: Patient has a history of hepatitis C, cirrhosis with ascites, left breast cancer, COPD, GERD and is status post GI bleed Family History: Patient states that she has a sister and 2 paternal half-bro thers have been diagnosed with schizophrenia. She states that her son has an unknown psychiatric illness most likely anxiety because she states she does not leave the house. Said her mother was also hospitalized with an unknown psychiatric disorder. Social History: Patient was born and raised in [place] and her parents are both she has 1 maternal half sibling and 5 paternal half siblings as well as 2 full siblings. Patient completed the eighth grade and states that she left school due to anxiety. 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 She has never and has 4 children who are alive and 1 son as an infant. She is currently living with her 24-year-old son and is currently on Social Security disability. She denies any abuse history. Substance Use History: Patient states that she never abused alcohol and used marijuana in the past in her teens and early 20s and denies any other drug use histor Mental status: Appearance/Attitude: Patient is very justyna looking, makes eye contact and was cooperative Behavior: Patient does not display any psychomotor agitation or retardation Speech/Language: Patient's speech is spontaneous of normal volume and rhythm and she is coherent Thought Process: Patient is goal-directed there is no evidence of loose association or flight of ideas Thought Content: Patient denies any auditory or visual hallucinations no d elusions or paranoid ideation or elicited. Patient states that she is anxious about leaving the hospital due to the fact that she is unable to find a primary care physician, she states that she is eager to return home. Patient was able to stay with me that she did not complete her hepatitis C course of treatment as well as she is received 3 rounds of chemotherapy for her breast cancer but currently is unable to continue with treatment due to her counts being too low. Patient states that even though she didn't complete the treatment for her hepatitis C her ascites is much better as she has not had to have a paracentesis as frequently as she has in the past. Suicidal/Homicidal Ideation: Patient denies any current suicidal or homicidal ideation Sensorium/Cognition: Patient is alert and oriented to person, place, and time and her recent and remote memory are grossly intact Mood/Affect: Patient's mood is slightly anxious and her affect is appropriate to her mood Insight/Judgment: Patient's insight and judgment are fair Assessment: Patient is had difficulty with anxiety she states which caused her to leave school in the eighth grade. Patient has not received any prior psychiatric treatment and has no history of any suicide attempts or psychotic symptoms and does not endorse any manic or depressive symptoms. Patient states that she did not complete her treatment for herself see and apparently the patient has had difficulties in the past with compliance with medical care. Patient states that she is currently anxious about not being able to find a physician so that she can be discharged. 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 Currently the patient is receiving Restoril to assist with her sleep I would recommend switching the patient to Remeron 7.5 mg at bedtime to assist not only with her sleep but also with her anxiety, I will avoid the SSRIs for her anxiety due to her history of GI bleeds. We will discontinue the Restoril and begin the patient on Remeron 7-1/2 mg at bedtime the patient should be discharged on this medication. Patient is not interested in any outpatient psychiatric counseling for herself for treatment. We will sign off the case at this time if there are any further questions or concerns please and hesitate to contact me 09/09/18 17:40
--- NOTE | 2018-09-09 17:51 | P.PN ---
Subjective Progress Note Date: 09/09/18 Principal diagnosis: Breast cancer Patient seen today in follow-up. She continues to remain rather defensive and unwilling to allow physical exam. Patient's only complaint is pain at the chest wall site where the malignancy is located. Objective - Vital Signs Vital signs: Vital Signs Temp 97.9 F 09/09/18 15:33 Pulse 82 09/09/18 15:33 Resp 16 09/09/18 15:33 BP 111/70 09/09/18 15:33 Pulse Ox 100 09/09/18 15:33 Intake & Output 09/08/18 09/09/18 09/09/18 18:59 06:59 18:59 Intake Total 900 2200 Balance 900 2200 Intake: Intake, IV Titration 180 Amount Sodium Chloride 0.9% 1, 180 000 ml @ 20 mls/hr IV . Q24H ARFAEL Rx#:[id number] Oral 720 2200 Other: Voiding Method Toilet # Voids 2 - Exam Well-developed, frail, 52-year-old female who looks significantly older than her stated age, poor dentition. Patient's hands are warm to the touch, her abdomen does not visibly looked distended, maybe some trace edema in the lower extremities - Labs CBC & Chem 7: 09/09/18 07:03 09/09/18 07:03 Labs: Abnormal Lab Results - Last 24 Hours (Table) 09/09/18 09/09/18 Range/Units 07:03 07:03 WBC 1.8 L (3.8-10.6) k/uL RBC 2.32 L (3.80-5.40) m/uL Hgb 7.9 L (11.4-16.0) gm/dL Hct 23.8 L (34.0-46.0) % MCV 102.5 H (80.0-100.0) fL Plt Count 61 L (150-450) k/uL Neutrophils # 0.8 L (1.3-7.7) k/uL Lymphocytes # 0.7 L (1.0-4.8) k/uL Chloride 112 H (98-107) mmol/L Assessment and Plan (1) Triple negative malignant neoplasm of breast Narrative/Plan: History of. Patient never completed treatment for the same. Unfortunately patient's significant liver disease prevented her from completing chemotherapy. She was not deemed a surgical candidate at the of evaluation for surgery I reviewed with patient that we are pending her hormone receptor status. Her previous malignancy was triple negative. If patient's disease has triple negative disease unfortunately, the only option for her is surgery. I reviewed again with patient the reason why she is not a candidate for chemotherapy. Patient had 2 cycles of treatment previously, with significant side effects- though she does not remember these-she was hospitalized each time for prolonged periods of time. Her CBC is low and her marrow would not tolerate more chemo, placing her at a greater risk for complications from chemo. Dr. Nugent did discuss case wtih Dr. Whitehead who is awaiting HR status as well. At that time Surgeon will evaluate pt and give recommendations. If this is a new primary breast cancer that his HR or Her2 + then there are oral options for treatment that are not as toxic and could be considered. She verbalized understanding most of our conversation. She knows that the testing on the tumor needs to be done before final recommendations can be made. ER, [place], HER-2/rm pending. BRCA testing is appropriate and will be requested on peripheral blood at a later date Current Visit: Yes Status: Acute Priority: High Code(s): C50.919 - MALIGNANT NEOPLASM OF UNSP SITE OF UNSPECIFIED FEMALE BREAST SNOMED Code(s): 075415780 (2) Pancytopenia Narrative/Plan: Pancytopenia workup has been done in the past, it is felt that her cytopenias are related to cirrhotic liver, possibly exacerbated with malignancy as well as history of chemotherapy. None of her labs are low enough requiring intervention at this time. Current Visit: No Status: Chronic Priority: Medium Code(s): D61.818 - OTHER PANCYTOPENIA SNOMED Code(s): 437135209
[2018-09-09] MEDS ORDERED: ONDANSETRON 4 MG/2 ML VIAL IVP STA (20:39)
[2018-09-09] MEDS: MIRTAZAPINE 15 MG TAB PO SCH (21:23)
[2018-09-10] MEDS: HYDROmorphone 0.5 MG/0.5 ML SYRINGE IVP PRN ×6 (01:00→22:26)
[2018-09-10] MEDS: HYDROcodone/APAP 10-325MG 1 EACH TAB PO PRN ×3 (01:42→17:27)
[2018-09-10 07:47] LABS: African American GFR (CKD) >90 (>60 ml/min/1.73 sqM); Anion Gap 3 mmol/L; Blood Urea Nitrogen 11 mg/dL (7-17); Calcium 8.4 mg/dL (8.4-10.2); Carbon Dioxide 25 mmol/L (22-30); Chloride 110 mmol/L (98-107); Glucose 102 mg/dL (74-99); Potassium 4.1 mmol/L (3.5-5.1); Sodium 138 mmol/L (137-145)
[2018-09-10 07:48] LABS: Anisocytosis Slight; Basophils % (A) 0 %; Eosinophils # (A) 0.1 k/uL (0-0.7); Eosinophils % (A) 5 %; HCT 23.3 % (34.0-46.0); HGB 7.6 gm/dL (11.4-16.0); Hypochromasia Slight; Lymphocytes # (A) 0.4 k/uL (1.0-4.8); Lymphocytes % (A) 22 %; MCH 33.3 pg (25.0-35.0); MCHC 32.4 g/dL (31.0-37.0); MCV 102.5 fL (80.0-100.0); Macrocytosis Slight; Mean Platelet Volume 9.5; Monocytes # (A) 0.2 k/uL (0-1.0); Monocytes % (A) 11 %; Neutrophils # (A) 1.1 k/uL (1.3-7.7); Neutrophils % (A) 59 %; RBC 2.28 m/uL (3.80-5.40); RDW 16.2 % (11.5-15.5); WBC 1.8 k/uL (3.8-10.6)
[2018-09-10 07:56] LABS: Platelet Count 53 k/uL (150-450)
--- NOTE | 2018-09-10 07:56 | DS ---
DISCHARGE SUMMARY CHIEF COMPLAINT: Left anterior chest pain. HISTORY OF PRESENT ILLNESS/PHYSICAL EXAM: The details of this lady's history and physical can be found on initial workup. LABORATORY STUDIES: Laboratory studies can be found in the laboratory section of chart. COURSE IN HOSPITAL: After admission, she was placed on bedrest and referred to Oncology and breast surgery. She was given her usual analgesia. She would not allow any doctor to examine her chest, but she did have a large exophytic growth on the left anterior chest wall medial to the nipple. She would not allow any other exam. It was felt by Surgery and Oncology that she was not a candidate for surgery and given her liver status, chemotherapy would certainly not be tolerated. The patient became very agitated and hostile and told the nursing staff that she did not want me as her physician any longer. I was notified that she had transferred to a different physician. A day or 2 later, she informed the nurses that she was sorry, that was a mistake. I had a discussion with the patient and told her that under the circumstances it was best for her to change physicians. It is felt that she could be discharged today and I will follow her on a as needed basis of the next 30 days, but she is encouraged to find another doctor in the area. FINAL DIAGNOSES: 1. Anterior chest wall pain. 2. Uncontrolled left breast neoplasm. 3. Chronic obstructive pulmonary disease. 4. Hepatitis C. 5. Cirrhosis. 6. Intractable ascites. OPERATION: None. CONSULTATIONS: Hospital Medicine, Oncology and breast surgery. MMODL / NESTORN: [id number] /
[2018-09-10] MEDS: NICOTINE 14MG/24HR PATCH TRANSDERM SCH (08:57)
[2018-09-10] MEDS: HEPARIN SODIUM,PORCINE 5,000 UNIT/ML 1 ML VIAL SQ SCH ×2 (08:58→20:21)
[2018-09-10] MEDS ORDERED: ONDANSETRON 4 MG/2 ML VIAL IVP PRN (13:26)
[2018-09-10 14:32] LABS: Albumin 2.25 g/dL (3.80-4.90); Gamma Globulin 1.78 g/dL (0.70-1.50)
--- NOTE | 2018-09-10 14:32 | P.PN ---
Subjective Progress Note Date: 09/10/18 Principal diagnosis: Breast cancer, triple negative In f/u today pt persists in refusing exam, stating "too stressful", "don't want to hear". Objective - Vital Signs Vital signs: Vital Signs Temp 99.4 F 09/10/18 07:48 Pulse 101 H 09/10/18 07:48 Resp 16 09/10/18 07:48 BP 108/66 09/10/18 07:48 Pulse Ox 92 L 09/10/18 07:48 Intake & Output 09/09/18 09/10/18 09/10/18 18:59 06:59 18:59 Intake Total 2200 Balance 2200 Intake: Oral 2200 Other: Voiding Method Toilet Toilet # Voids 1 - Exam WD, sitting at bedside, eating a sweet potato, NAD, A&Ox3, mild pedal edema, edentulous, mood is irritable, anxious - Labs CBC & Chem 7: 09/10/18 06:45 09/10/18 06:45 Labs: Abnormal Lab Results - Last 24 Hours (Table) 09/10/18 09/10/18 Range/Units 06:45 06:45 WBC 1.8 L (3.8-10.6) k/uL RBC 2.28 L (3.80-5.40) m/uL Hgb 7.6 L (11.4-16.0) gm/dL Hct 23.3 L (34.0-46.0) % MCV 102.5 H (80.0-100.0) fL RDW 16.2 H (11.5-15.5) % Plt Count 53 L (150-450) k/uL Neutrophils # 1.1 L (1.3-7.7) k/uL Lymphocytes # 0.4 L (1.0-4.8) k/uL Chloride 110 H (98-107) mmol/L Glucose 102 H (74-99) mg/dL Assessment and Plan (1) Triple negative malignant neoplasm of breast Current Visit: Yes Status: Acute Priority: High Code(s): C50.919 - MALIGNANT NEOPLASM OF UNSP SITE OF UNSPECIFIED FEMALE BREAST SNOMED Code(s): 859976371 (2) Pancytopenia Narrative/Plan: Pancytopenia workup has been done in the past, it is felt that her cytopenias are related to cirrhotic liver, possibly exacerbated with malignancy as well as history of chemotherapy. None of her labs are low enough requiring intervention at this time. Her pancytopenia is preventing her from receiving chemotherapy. Current Visit: No Status: Chronic Priority: Medium Code(s): D61.818 - OTHER PANCYTOPENIA SNOMED Code(s): 594908321 Plan: Told pt that she no longer has the option to avoid her diagnosis. It was reinforced that she is not currently metastatic, she cannot receive chemo due to liver disease, pancytopenia, and previous poor tolerance to treatment (she does not recall how sick she was on chemo). Hormone receptors did return negative for ER/SD and Her2 rm. With this information there are no treatments from the Oncology standpoint that can be offered as the treatments all consist of chemotherapy. It has been reviewed with pt numerous times that she is not a candidate for chemo (see above). Recommendation is referral to Surgery for evaluation. Her treatment options are limited to Surgery and Radiation (will ask Rad Onc to take a look at case for an opinion) at this time. Post procedures she should f/u with Medical Oncologist for NCCN guideline follow up protocol
[2018-09-10] MEDS: SODIUM CHLORIDE 0.9% 1,000 ML IV SCH (16:51)
--- NOTE | 2018-09-10 19:35 | PN ---
PROGRESS NOTE DATE OF SERVICE: 09/10/2018 This 52-year-old woman who was admitted with a mass lesion on the left breast also has significant anxiety. The patient complains of diarrhea, abdominal pain today. No chest pain. No palpitations. No fever. EXAM: Alert and oriented times three. Pulse 88, blood pressure 99/52, respirations 16, temperature 98.8, pulse ox 98% on room air. HEENT: Conjunctivae normal. NECK: No jugular venous distention. CARDIOVASCULAR: S1, S2 muffled. RESPIRATORY: Breath sounds diminished in the bases. Scattered rhonchi. ABDOMEN: Soft, nontender. CENTRAL NERVOUS SYSTEM: No focal deficits. LABS: WBC 1.8, hemoglobin 7.6. ASSESSMENT: 1. Mass lesion in the left breast, possibly carcinoma of the breast recurrence status post final aspiration, biopsy pending, hormonal receptor status. 2. Severe left-sided chest pain. 3. Severe anxiety. 4. Pancytopenia, possibly secondary to malignancy or cirrhosis of the liver. 5. History of chronic obstructive pulmonary disease. 6. Gastroesophageal reflux disease. 7. History of gastrointestinal bleed. 8. Hypertension. 9. History of chronic liver disease secondary to hepatitis C as well as chronic cirrhosis of the liver. 10.History of multiple abdominal paracentesis and history of peritonitis. 11.History of anxiety. 12.Continued ongoing nicotine dependence. RECOMMENDATIONS AND DISCUSSION: Recommend to continue current medications, continue with monitoring and symptomatic treatment. Otherwise, at this time, I would recommend C difficile colitis and if it is negative for conservative line of management, continue the pain medication. After the receptor status is known, the patient would require evaluation by surgery, also guarded prognosis. Further recommendations to follow. MMODL / IJN: [id number] /
[2018-09-10] MEDS: MIRTAZAPINE 15 MG TAB PO SCH (20:21)
[2018-09-11] MEDS: HYDROcodone/APAP 10-325MG 1 EACH TAB PO PRN ×3 (00:31→12:13)
[2018-09-11] MEDS: HYDROmorphone 0.5 MG/0.5 ML SYRINGE IVP PRN ×4 (01:49→13:27)
[2018-09-11 07:31] LABS: HCT 23.4 % (34.0-46.0); HGB 7.6 gm/dL (11.4-16.0); Hypochromasia Moderate; MCH 33.5 pg (25.0-35.0); MCHC 32.4 g/dL (31.0-37.0); MCV 103.5 fL (80.0-100.0); Macrocytosis Slight; Mean Platelet Volume 9.7; RBC 2.26 m/uL (3.80-5.40); RDW 15.7 % (11.5-15.5)
[2018-09-11 07:42] VITALS: BP 111/73; PULSE 75; RESP 18; TEMP 98.2
[2018-09-11 07:46] LABS: African American GFR (CKD) >90 (>60 ml/min/1.73 sqM); Anion Gap 1 mmol/L; Blood Urea Nitrogen 11 mg/dL (7-17); Calcium 8.1 mg/dL (8.4-10.2); Carbon Dioxide 29 mmol/L (22-30); Chloride 109 mmol/L (98-107); Glucose 96 mg/dL (74-99); Potassium 3.9 mmol/L (3.5-5.1); Sodium 139 mmol/L (137-145)
[2018-09-11 07:51] LABS: Platelet Count 54 k/uL (150-450)
[2018-09-11] MEDS: NICOTINE 14MG/24HR PATCH TRANSDERM SCH (10:19)
[2018-09-11] MEDS: HEPARIN SODIUM,PORCINE 5,000 UNIT/ML 1 ML VIAL SQ SCH (10:19)
--- NOTE | 2018-09-11 10:37 | P.PN ---
Progress Note - Text Progress Note Date: 09/11/18 The patient apparently is going to be discharged. There was concern from the nursing staff regarding her left breast mass. On exam patient has a healing breast biopsy site. There is evidence of a large breast mass on the medial portion left breast. There is no incision any infection. Large bulky left breast tumor. Patient will be discharged home per the medical service. Follow-up with Dr. Lila Copeland.
[2018-09-11 11:10] LABS: Eosinophils # (M) 0.12 k/uL (0-0.7); Monocytes # (M) 0.32 k/uL (0-1.0); Neutrophils # (M) 0.96 k/uL (1.3-7.7); Neutrophils % (M) 48 %; Nucleated Red Blood Cells 0 /100 WBC (0-0); Total Cells Counted 100
--- NOTE | 2018-09-12 07:15 | DS ---
DISCHARGE SUMMARY DATE OF SERVICE: 09/11/2018. FINAL DIAGNOSES: 1. Mass lesion in the left breast, possibly carcinoma of the breast recurrence status post biopsy pending hormone receptor status. 2. Severe left-sided chest pain. 3. Severe anxiety. 4. Pancytopenia possibly secondary to malignancy and cirrhosis liver. 5. History of chronic obstructive pulmonary disease. 6. Gastroesophageal reflux disease. 7. History of gastrointestinal bleed. 8. Hypertension. 9. History of chronic liver disease secondary to hepatitis C, as well as chronic cirrhosis of the liver. 10.History of multiple abdominal paracentesis and history of peritonitis. 11.History of anxiety. 12.Continued ongoing nicotine dependence. DISCHARGE DISPOSITION: The patient is being discharged in stable condition with guarded prognosis. HISTORY OF PRESENT ILLNESS: This 52-year-old woman with a past medical history of multiple medical problems, was admitted with mass lesion of the left breast and severe pain and anxiety. Patient was evaluated by multiple consultants including Hematology/Oncology and surgery, recommended outpatient follow up. Currently awaiting hormone status and will determine the course of surgery or chemotherapy or hormone therapy depending upon that and Dr. Puente will follow up the patient in the outpatient setting. On exam, vitals are stable. Cardiovascular: S1, S2. Abdomen soft. Nervous System: No focal deficits. DISCHARGE ADVICE AND MEDICATIONS: 1. Diet cardiac diet. 2. Activity limited until followup. 3. Follow up with Dr. Symone Egnel in 2-3 days. 4. Follow up with Dr. Whitehead as advised. DISCHARGE MEDICATIONS: 1. [place] 10 mg q.6h p.r.n. 2. Remeron 7.5 mg q.h.s. MMODL / IJN: [id number] /
== END 2018-09-11 15:11 | disposition home or self-care (01) | DRG 598 ==
LOC: EC 15:03 → 4SSUR 18:34 → OBSVTOIN 09-07 09:08
PROVIDERS: ADMIT Internal Medicine; ATTEND Internal Medicine
PROC: 0HBU3ZX Excision of Left Breast, Percutaneous Approach, Diagnostic (ICD-10-PCS; principal; 2018-09-07)
DX: C50.912 Malignant neoplasm of unspecified site of left female breast (principal); D61.818 Other pancytopenia; I85.10 Secondary esophageal varices without bleeding; K76.6 Portal hypertension; R18.8 Other ascites; B18.2 Chronic viral hepatitis C; F17.210 Nicotine dependence, cigarettes, uncomplicated; F32.9 Major depressive disorder, single episode, unspecified; F41.9 Anxiety disorder, unspecified; H91.90 Unspecified hearing loss, unspecified ear; I10 Essential (primary) hypertension; J44.9 Chronic obstructive pulmonary disease, unspecified; K21.9 Gastro-esophageal reflux disease without esophagitis; K74.60 Unspecified cirrhosis of liver; Z87.19 Personal history of other diseases of the digestive system; N64.4 Mastodynia; B19.20 Unspecified viral hepatitis C without hepatic coma; Z17.1 Estrogen receptor negative status [ER-]; Z80.1 Family history of malignant neoplasm of trachea, bronchus and lung; Z82.49 Family history of ischemic heart disease and other diseases of the circulatory system; Z92.21 Personal history of antineoplastic chemotherapy; Z81.8 Family history of other mental and behavioral disorders
CPT/HCPCS: 36415; 71046; 71260; 74177; 78306; 80048; 80053; 82150; 82272; 82533; 82607; 82728; 82747; 83540; 83550; 83605; 83690; 83735; 83880; 83883; 83921; 84165; 84484; 85025; 85610; 85652; 85730; 86140; 86300; 86334; 86850; 86900; 86901; 88305; 88341; 88342; 93005; 96374; 96375; 99285

== ENCOUNTER 2018-09-14 20:30 | Observation (INO) | payer MEDICARE, OTHER ==
--- NOTE | 2018-09-14 20:50 | ED ---
Recheck HPI - General Chief Complaint: Recheck/Abnormal Lab/Rx Stated Complaint: Chest Pain Time Seen by Provider: 09/14/18 20:37 Source: patient, RN notes reviewed, old records reviewed Mode of arrival: ambulatory Limitations: no limitations - History of Present Illness Initial Comments: This is a 53-year-old female well-known to this emergency room for evaluation of chest pain chest wall pain. No history of breast cancer without treatment. Intractable pain at home. Patient also has known multiple other medical history does include ascites abdominal pain. Patient denies shortness of breath fevers MD Complaint: wound re-check -: month(s) Initial Visit For: cellulitis (Breast cancer) Returns Today for: wound recheck Symptoms Since Prior Visit: worsening pain Associated Symptoms: chest pain, abdominal pain Treatments Prior to Arrival: Given Pain Meds on - Related Data Home Medications Medication Instructions Recorded Confirmed HYDROcodone/APAP 10-325MG [[place] 0.5 - 1 tab PO QID PRN 09/14/18 09/14/18 10-325] Allergies Allergy/AdvReac Type Severity Reaction Status Date / Time No Known Allergies Allergy Verified 09/14/18 20:50 Review of Systems ROS Statement: Those systems with pertinent positive or pertinent negative responses have been documented in the HPI. ROS Other: All systems not noted in ROS Statement are negative. Past Medical History Past Medical History: Cancer, COPD, GERD/Reflux, GI Bleed, Hearing Disorder / Deafness, Hypertension, Liver Disease Additional Past Medical History / Comment(s): Hepatitis C, intractable ascities with multiple paracentesis, cirrhosis, peritonitis, pancytopenia, vertigo; "benign abd mass", multiple upper GI bleeds, esophageal varicies/esophageal banding, left breast cancer had chemo last on 09-12-16-did not tolerate-completed only 3 cycles-then it was stopped/no surgery, lt ear hearing loss. History of Any Multi-Drug Resistant Organisms: None Reported Past Surgical History: Adenoidectomy, Tonsillectomy Additional Past Surgical History / Comment(s): Multiple paracentesises, EGDs, esophageal banding, right chest mediport 08-06-16, l breast bx., Past Anesthesia/Blood Transfusion Reactions: No Reported Reaction Additional Past Anesthesia/Blood Transfusion Reaction / Comment(s): blood transfusions- no reaction Past Psychological History: Anxiety Smoking Status: Current every day smoker Past Alcohol Use History: None Reported Past Drug Use History: None Reported - Past Family History Mother Family Medical History: Cancer Additional Family Medical History / Comment(s): of lung ca at the age of 59yrs. She was a smoker. Father Family Medical History: Myocardial Infarction (PR) Additional Family Medical History / Comment(s): from 2nd heart attack at the age of 59yrs. General Exam - General Exam Comments Initial Comments: Patient does have significant redness well, chest wall mass left breast Limitations: no limitations General appearance: alert, in no apparent distress Head exam: Present: atraumatic, normocephalic, normal inspection Eye exam: Present: normal appearance, PERRL, EOMI. Absent: scleral icterus, conjunctival injection, periorbital swelling ENT exam: Present: normal exam, mucous membranes moist Neck exam: Present: normal inspection. Absent: tenderness, meningismus, lymphadenopathy Respiratory exam: Present: normal lung sounds bilaterally. Absent: respiratory distress, wheezes, rales, rhonchi, stridor Cardiovascular Exam: Present: regular rate, normal rhythm, normal heart sounds. Absent: systolic murmur, diastolic murmur, rubs, gallop, clicks GI/Abdominal exam: Present: soft, normal bowel sounds. Absent: distended, tenderness, guarding, rebound, rigid Extremities exam: Present: normal inspection, full ROM, normal capillary refill. Absent: tenderness, pedal edema, joint swelling, calf tenderness Back exam: Present: normal inspection Neurological exam: Present: alert, oriented X3, CN II-XII intact Psychiatric exam: Present: normal affect, normal mood Skin exam: Present: warm, dry, intact, normal color. Absent: rash Course Vital Signs 09/14/18 20:40 Temperature 97.3 F L Pulse Rate 92 Respiratory 18 Rate Blood Pressure 134/73 O2 Sat by Pulse 99 Oximetry - Reevaluation(s) Reevaluation #1: 09/14/18 21:38 Medical record is reviewed Reevaluation #2: 09/14/18 21:38 Patient has pain control Medical Decision Making - Medical Decision Making 43 female the ER for evaluation left-sided chest wall pain. Patient will be admitted for chest pain and pain control - Radiology Data Radiology results: report reviewed (Chest x-rays negative for acute disease), image reviewed Disposition Clinical Impression: Abdominal pain, Intractable abdominal pain, Left breast mass Disposition: ADMITTED IP TO THIS HOSP Condition: Fair Is patient prescribed a controlled substance at d/c from ED?: No Referrals: Mark Estrada MD [STAFF PHYSICIAN] - 1-2 days
[2018-09-14] MEDS ORDERED: SODIUM CHLORIDE 0.9% 1,000 ML IV STA (21:39)
[2018-09-14] MEDS ORDERED: SODIUM CHLORIDE 0.9% 1,000 ML IV ONE (21:39)
--- NOTE | 2018-09-14 22:06 | XR ---
EXAM: XR Chest, 2 Views CLINICAL HISTORY: ITS.REASON XR Reason: Chest Pain TECHNIQUE: Frontal and lateral views of the chest. COMPARISON: Chest radiograph on 09/06/2017 FINDINGS: Hardware: Right-sided Port-A-Cath terminates in the junction of the SVC and right atrium. Lungs/pleura: Normal. No focal consolidation. No pleural effusion or pneumothorax. Heart/mediastinum: Normal. No cardiomegaly. Soft tissues: Unremarkable. Bones: No acute fracture. Upper abdomen: Normal. IMPRESSION: No acute disease identified.
[2018-09-14] MEDS ORDERED: ONDANSETRON 4 MG/2 ML VIAL IVP PRN (22:45)
[2018-09-14] MEDS ORDERED: ONDANSETRON 4 MG/2 ML VIAL IVP STA (22:45)
[2018-09-14] MEDS ORDERED: HYDROmorphone 1 MG/ML 1 ML SYRINGE IVP STA (22:45)
[2018-09-14 22:57] LABS: INR 1.1 (<1.2); Partial Thromboplastin Time 39.9 sec (22.0-30.0)
[2018-09-14 23:00] LABS: ALT 16 U/L (9-52); AST 31 U/L (14-36); African American GFR (CKD) >90 (>60 ml/min/1.73 sqM); Albumin 2.5 g/dL (3.5-5.0); Alkaline Phosphatase 104 U/L (38-126); Anion Gap 4 mmol/L; Blood Urea Nitrogen 9 mg/dL (7-17); Calcium 8.1 mg/dL (8.4-10.2); Carbon Dioxide 24 mmol/L (22-30); Chloride 110 mmol/L (98-107); Glucose 113 mg/dL (74-99); Lipase 110 U/L (23-300); Magnesium 1.9 mg/dL (1.6-2.3); Potassium 3.7 mmol/L (3.5-5.1); Sodium 138 mmol/L (137-145); Total Bilirubin 0.6 mg/dL (0.2-1.3); Total Protein 6.1 g/dL (6.3-8.2)
[2018-09-14 23:13] LABS: HCT 24.3 % (34.0-46.0); Hypochromasia Slight; MCH 33.4 pg (25.0-35.0); MCHC 32.9 g/dL (31.0-37.0); MCV 101.5 fL (80.0-100.0); Macrocytosis Slight; Mean Platelet Volume 9.3; Poikilocytosis Slight; RBC 2.39 m/uL (3.80-5.40); RDW 15.4 % (11.5-15.5); WBC 2.2 k/uL (3.8-10.6)
[2018-09-14] MEDS ORDERED: HYDROmorphone 0.5 MG/0.5 ML SYRINGE IVP STA (23:25)
[2018-09-14 23:47] LABS: Band Neutrophils % 1 %; Eosinophils # (M) 0.26 k/uL (0-0.7); Lymphocytes # (M) 0.88 k/uL (1.0-4.8); Monocytes # (M) 0.09 k/uL (0-1.0); Neutrophils % (M) 43 %; Nucleated Red Blood Cells 0 /100 WBC (0-0); Total Cells Counted 100
[2018-09-14 23:48] LABS: Anisocytosis (M) Present
[2018-09-14 23:49] LABS: Ovalocytes Present
[2018-09-14 23:50] LABS: Platelet Count 58 k/uL (150-450)
[2018-09-15] MEDS: HYDROmorphone 1 MG/ML 1 ML SYRINGE IVP PRN ×6 (01:50→21:09)
--- NOTE | 2018-09-15 10:17 | P.CRDCN ---
History of Present Illness History of present illness: This is a pleasant 53-year-old female past medical history significant for breast cancer 2 years ago which she underwent chemotherapy with apparent recurrence, COPD, hypertension, hepatitis C, cirrhosis, chronic nicotine dependence and esophageal varices status post banding. She denies history of coronary artery disease. She has seen Dr. Mcgee in the office in 2017 for cardiac evaluation prior to possible mastectomy. We have been asked to see her in consultation secondary to chest discomfort. She presented to the hospital yesterday with significant sharp stabbing pain in the left breast. She is extremely tender in that region. There is no radiation of the pain to the arm, back, neck or jaw. She states she is in constant pain that is worse with any movement or touch to the area. She denies any shortness of breath, dizziness, nausea, vomiting or diaphoresis. She is scheduled to see a breast surgeon on Thursday regarding moving forward with further treatment. EKG reveals sinus mechanism with no acute ST or T-wave abnormalities. Chest x-ray is negative for an acute cardiopulmonary process. Laboratory data reviewed, WBC 2.2, hemoglobin 8, platelets 58, sodium 138, potassium 3.7, creatinine 0.66, magnesium 1.9, cardiac enzymes negative 1, NT proBNP 167. She takes no daily cardiac medications. Most recent echocardiogram obtained in 2017 reveals preserved LV systolic function with ejection fraction 60%. No valvular abnormalities noted. At the time of my exam: CONSTITUTIONAL: Denies fever. Denies chills. EYES: Denies blurred vision. Denies vision changes. Denies eye pain. EARS, NOSE, MOUTH & THROAT: Denies headache. Denies sore throat. Denies ear pain . CARDIOVASCULAR: Denies chest pain. Denies shortness of breath. Denies orthopnea. Denies PND. Denies palpitations. RESPIRATORY: Denies cough. GASTROINTESTINAL: Denies abdominal pain. Denies diarrhea. Denies constipation. Denies nausea. Denies vomiting. MUSCULOSKELETAL: Complains of left breast pain. INTEGUMENTARY: Denies pruitis. Denies rash. NEUROLOGIC: Denies numbness. Denies tingling. Denies weakness. PSYCHIATRIC: Denies anxiety. Denies depression. ENDOCRINE: Denies fatigue. Denies weight change. Denies polydipsia. Denies polyurina. GENITOURINARY: Denies burning, hematuria or urgency with micturation. HEMATOLOGIC: Denies history of anemia. Denies bleeding. Blood pressure 95/59 heart rate 92 afebrile maintaining oxygen saturation on room air GENERAL: This is a 53-year-old female in no apparent distress at the time of my examination. Appears much older than stated age. HEENT: Head is atraumatic, normocephalic. Pupils are equal, round. Sclerae anicteric. Conjunctivae are clear. Mucous membranes of the mouth are moist. Neck is supple. There is no jugular venous distention. No carotid bruit is heard. LUNGS: Clear to auscultation no wheezes, rales or rhonchi. No chest wall tenderness is noted on palpation or with deep breathing. Diminished bilaterally. HEART: Regular rate and rhythm with systolic ejection murmur at the left sternal border, no rubs or gallops. S1 and S2 heard. ABDOMEN: Soft, nontender. Bowel sounds are heard. No organomegaly noted. EXTREMITIES: Bilateral lower extremity mildly pitting edema and erythema. No calf tenderness noted. VASCULAR: Radial and dorsalis pedis pulses palpated, no evidence of clubbing. NEUROLOGIC: Patient is awake, alert and oriented x3. ASSESSMENT Chest pain, atypical for angina. Pain is extremely reproducible over the left breast, infected patient will barely let you touch her chest. History of breast cancer 2017 status post chemotherapy. Suspected recurrence. Scheduled to see breast surgeon Thursday. History of COPD History of cirrhosis, esophageal varices and hepatitis C Chronic nicotine dependence PLAN Symptoms are not suggestive of an acute coronary event. There is no EKG evidence to suggest ischemia. Ongoing medical management. No further cardiac workup at this time. Recommend following up as an outpatient with Dr. Mcgee for echocardiogram once her acute discomfort of the left breast subside. Recommend smoking cessation. Thank you kindly for this consultation. Nurse Practitioner note has been reviewed, I agree with a documented findings and plan of care. Patient was seen and examined. Past Medical History Past Medical History: Cancer, COPD, GERD/Reflux, GI Bleed, Hearing Disorder / Deafness, Hypertension, Liver Disease Additional Past Medical History / Comment(s): Hepatitis C, intractable ascities with multiple paracentesis, cirrhosis, peritonitis, pancytopenia, vertigo; "benign abd mass", multiple upper GI bleeds, esophageal varicies/esophageal banding, left breast cancer had chemo last on 09-12-16-did not tolerate-completed only 3 cycles-then it was stopped/no surgery, lt ear hearing loss. History of Any Multi-Drug Resistant Organisms: None Reported Past Surgical History: Adenoidectomy, Tonsillectomy Additional Past Surgical History / Comment(s): Multiple paracentesises, EGDs, esophageal banding, right chest mediport 08-06-16, l breast bx., Past Anesthesia/Blood Transfusion Reactions: No Reported Reaction Additional Past Anesthesia/Blood Transfusion Reaction / Comment(s): blood trans fusions- no reaction Past Psychological History: Anxiety Additional Psychological History / Comment(s): Pt's son lives with her in a 2 story home with 1 front step. Pt's bathroom and bedroom on 2nd floor so pt now has a hospital bed and bsc on first floor. Smoking Status: Former smoker Past Alcohol Use History: None Reported Additional Past Alcohol Use History / Comment(s): Patient started smoking at age 13/2 a pack a day and cut back to one to 3 cigarettes per day no history of alcohol abuse. Patient lives with her son. She is currently on disability. Past Drug Use History: None Reported - Past Family History Mother Family Medical History: Cancer Additional Family Medical History / Comment(s): of lung ca at the age of 59yrs. She was a smoker. Father Family Medical History: Myocardial Infarction ([place]) Additional Family Medical History / Comment(s): from 2nd heart attack at the age of 59yrs. Medications and Allergies Home Medications Medication Instructions Recorded Confirmed Type HYDROcodone/APAP 10-325MG [[place] 0.5 - 1 tab PO QID PRN 09/14/18 09/14/18 History 10-325] Allergies Allergy/AdvReac Type Severity Reaction Status Date / Time No Known Allergies Allergy Verified 09/14/18 20:50 Physical Exam Vitals: Vital Signs Temp Pulse Pulse Resp BP BP Pulse Ox 09/15/18 07:58 98.2 F 92 16 95/59 90 L 09/15/18 04:00 98.1 F 86 18 102/63 92 L 09/15/18 00:00 98.3 F 85 18 108/67 97 09/14/18 23:47 81 20 118/71 100 09/14/18 23:44 97 F L 88 16 114/64 98 09/14/18 20:40 97.3 F L 92 18 134/73 99 Intake and Output 09/14/18 09/15/18 09/15/18 22:59 06:59 14:59 Intake Total 1300 Balance 1300 Intake: Amount of Fluid Infused ( 1000 ml) Intake, IV Titration 300 Amount Sodium Chloride 0.9% 1, 300 000 ml @ 100 mls/hr IV . Q10H ONE Rx#:[id number] Other: # Voids 2 Weight 68.039 kg Results 09/14/18 22:30 09/14/18 22:30 Cardiac Enzymes 09/14/18 09/14/18 Range/Units 22:30 22:30 AST 31 (14-36) U/L Troponin I <0.012 (0.000-0.034) ng/mL Coagulation 09/14/18 Range/Units 22:30 PT 12.0 (9.0-12.0) sec APTT 39.9 H (22.0-30.0) sec CBC 09/14/18 Range/Units 22:30 WBC 2.2 L (3.8-10.6) k/uL RBC 2.39 L (3.80-5.40) m/uL Hgb 8.0 L (11.4-16.0) gm/dL Hct 24.3 L (34.0-46.0) % Plt Count 58 L (150-450) k/uL Comprehensive Metabolic Panel 09/14/18 Range/Units 22:30 Sodium 138 (137-145) mmol/L Potassium 3.7 (3.5-5.1) mmol/L Chloride 110 H (98-107) mmol/L Carbon Dioxide 24 (22-30) mmol/L BUN 9 (7-17) mg/dL Creatinine 0.66 (0.52-1.04) mg/dL Glucose 113 H (74-99) mg/dL Calcium 8.1 L (8.4-10.2) mg/dL AST 31 (14-36) U/L ALT 16 (9-52) U/L Alkaline Phosphatase 104 (38-126) U/L Total Protein 6.1 L (6.3-8.2) g/dL Albumin 2.5 L (3.5-5.0) g/dL Current Medications Generic Name Dose Route Start Last Admin Trade Name Freq PRN Reason Stop Dose Admin Hydromorphone HCl 1 mg 09/14/18 22:45 09/15/18 09:30 Dilaudid IVP 1 mg Q4HR PRN Administration Pain Ondansetron HCl 4 mg 09/14/18 22:45 09/15/18 01:57 Zofran IVP 4 mg Q6HR PRN Administration Nausea And Vomiting Intake and Output 09/14/18 09/15/18 09/15/18 22:59 06:59 14:59 Intake Total 1300 Balance 1300 Intake: Amount of Fluid Infused ( 1000 ml) Intake, IV Titration 300 Amount Sodium Chloride 0.9% 1, 300 000 ml @ 100 mls/hr IV . Q10H ONE Rx#:[id number] Other: # Voids 2 Weight 68.039 kg 09/14/18 22:30 09/14/18 22:30
[2018-09-15] MEDS: HYDROcodone/APAP 10-325MG 1 EACH TAB PO PRN ×3 (12:02→23:55)
--- NOTE | 2018-09-15 18:29 | HP ---
HISTORY AND PHYSICAL CHIEF COMPLAINT: Left anterior chest wall pain. HISTORY OF PRESENT ILLNESS: This is another recent admission for this 53-year-old white female. She is in and out of the hospital constantly due to intractable ascites secondary to hepatitis C and cirrhosis or, more recently, left anterior chest pain where she has an enlarging carcinoma of the breast, for which she has refused treatment for several years. The neoplasm is starting to cause pain and she was just in the hospital last week and was seen by Breast Surgery, but she is very noncompliant and will not allow an exam and has not wanted treatment. She told me that she did not want me as a physician and agreed to find another. However, she came back into the emergency room again with chest pain and is readmitted. She does sound like she is willing to go ahead with some type of treatment now. Consultants have indicated that she may not be a candidate for anything based on her advanced stage, hepatitis C, cirrhosis, ascites, COPD and pancytopenia. REVIEW OF SYSTEMS: She has no other complaints. Past medical history, family history, and personal and social histories are otherwise unremarkable or unchanged. PHYSICAL EXAMINATION: Blood pressure is 99/64 with a pulse of 71 and respirations of 16. In general she appeared to be chronically ill, pale and older than her stated age. Head, ears, eyes, nose, mouth and throat were normal and there was no scleral icterus. Chest demonstrated decreased breath sounds. She would not allow any other exam. IMPRESSION: 1. Anterior chest wall pain secondary to advancing carcinoma of the breast. 2. Hepatitis C. 3. Cirrhosis. 4. Intractable ascites. 5. Depression. PLAN: 1. Bed rest. 2. Refer her back to Breast Surgery. MMODL / IJN: [id number] /
--- NOTE | 2018-09-15 19:35 | PN ---
PROGRESS NOTE CHIEF COMPLAINT: Chest pain due to breast carcinoma. HISTORY OF PRESENT ILLNESS: This lady is still very uncomfortable. We had a discussion with regard to whether or not she is going to submit herself for treatment and management, and she does agree. PHYSICAL EXAMINATION: None. IMPRESSION: 1. Carcinoma of the left breast. 2. Cirrhosis. 3. Hepatitis C. 4. Intractable ascites. PLAN: Refer her back to Breast Surgery. MMODL / IJN: [id number] /
[2018-09-16] MEDS: HYDROmorphone 1 MG/ML 1 ML SYRINGE IVP PRN ×6 (00:40→20:05)
[2018-09-16] MEDS: HYDROcodone/APAP 10-325MG 1 EACH TAB PO PRN ×3 (06:00→18:24)
--- NOTE | 2018-09-16 14:22 | P.PN ---
Subjective Progress Note Date: 09/16/18 Principal diagnosis: Right breast cancer She now is a 53-year-old white female who was admitted secondary to chest wall pain related to a locally advanced left breast cancer. The patient was originally diagnosed in 2016. An ultrasound at that time revealed a 5.6 x 3.5 cm solid lesion at 9:00. She had a core biopsy and was diagnosed with malignancy. This was grade 3, ER negative. Positive HER-2 negative. Staging PET scan at that time was negative for metastatic disease. She underwent 3 cycles of chemotherapy, however she did not tolerate the chemotherapy well. Treatment was stopped secondary to neutropenic fever. She had recurrent hospitalizations from October through December 2016 secondary to liver decompensation. She did appear to have a response and was assessed for surgery. She has a history of cirrhosis related to hepatitis C. At that time she was not felt to be a candidate for general anesthesia. She was referred to [facility] where they concurred she was not a surgical candidate. She did not have further treatment for the breast lesion. She recently underwent a repeat core biopsy of the lesion in the left breast. 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 She is not felt to be a candidate for medical oncology intervention. The patient is very anxious and is refusing to allow examination of that breast. However on computed tomography scan although the lesion appears to be close to the chest wall does not appear to be invading the bone. This was likewise seen on bone scan. The patient is going to be evaluated by radiation therapy as well. Medical history: 1. Left breast cancer 2. COPD 3. GERD 4. GI bleed 5. Hearing disorder 6. Hypertension 7. Hepatitis C liver disease with cirrhosis Surgical history: 1. Esophageal banding for varices related to liver disease 2. Right chest Mediport 3. Left breast biopsy 4. Multiple paracentesis Family history: Mother: of lung cancer 59 she was a smoker Father: Myocardial infarction Social history: Smoke: Current every day smoker Alcohol: Negative Patient lives with her son and she is currently on disability Review of systems: HEENT: Decreased hearing Cardiovascular: Hypertension being seen by cardiology Respiratory: Nicotine dependence, COPD GI: Hepatitis C has had multiple paracentesis, esophageal varices, cirrhosis Psychiatric: Anxiety Breasts: As per HPI Objective - Vital Signs Vital signs: Vital Signs Temp 97.6 F 09/16/18 11:38 Pulse 88 09/16/18 12:00 Resp 16 09/16/18 12:00 BP 102/68 09/16/18 11:38 Pulse Ox 94 L 09/16/18 11:38 Intake & Output 09/15/18 09/16/18 09/16/18 18:59 06:59 18:59 Intake Total 440 1200 1200 Balance 440 1200 1200 Intake: Intake, IV Titration 600 Amount Sodium Chloride 0.9% 1, 600 000 ml @ 100 mls/hr IV . Q10H ONE Rx#:[id number] Oral [phone] Other: Voiding Method Toilet Toilet Toilet # Voids 1 3 3 - Exam Cachectic white female very anxious - Constitutional General appearance: Present: thin - EENT Eyes: Present: EOMI ENT: Present: hard of hearing - Neck Neck: Present: normal ROM - Respiratory Respiratory: bilateral: CTA - Cardiovascular Rhythm: regular Heart sounds: normal: S1, S2 - Gastrointestinal Gastrointestinal Comment(s): Protuberant with ascites No guarding or rebound - Musculoskeletal Musculoskeletal Comment(s): Patient sitting in bed - Psychiatric Psychiatric: Present: A&O x's 3, appropriate affect, intact judgment & insight - Additional findings Additional findings: Breast examination: Right breast: Multiple positional exam no dominant masses or nodules of concern Right axilla: No adenopathy of concern Left breast there is a lesion at the 9 o'clock position which is somewhat extensive and involving the scanned this is approximately 4 cm x 3.5 cm in size, it is hard to ascertain if this is fixed to the underlying chest wall as the patient is not allowing an examination Left axilla: Shoddy adenopathy - Labs CBC & Chem 7: 09/14/18 22:30 09/14/18 22:30 Assessment and Plan Assessment: Impression: 1. Locally advanced left breast cancer resulting in pain does not appear at this time to be invading the sternum 2. Cirrhosis related to hepatitis C 3. Anxiety 4. Nicotine dependence 5. COPD Patient's lesion was recently biopsied this is an invasive ductal carcinoma w hich is triple negative. She is not a candidate for any further chemotherapy. To proceed with surgical intervention is required #1 that the patient allows examination to determine if this is a mobile lesion #2 anesthesia the knee to agree to operative intervention #[address] Riat loya/fuse cup expander/and GI. I discussed this with the patient she understands that if we were to resect that there was a good chance that be unable to do a primary closure she may require skin graft which could be done as a two-stage procedure potentially. Plan: 1. Anesthesia consultation to determine if she is an operative candidate 2. Patient will taken anxiety related to her lateral breast exam she states 3. Medical/cardiac/GI clearance the patient is going to undergo surgical intervention 4. Consultation with radiation oncology CC: Dr. Estrada
--- NOTE | 2018-09-16 17:25 | PN ---
PROGRESS NOTE DATE OF SERVICE: 09/16/2018 CHIEF COMPLAINT: Left anterior chest pain, left breast CA, hepatitis C with cirrhosis and ascites. HISTORY OF PRESENT ILLNESS: This lady's pain is under a little bit better control. She has been seen by breast surgery and will await any recommended plans. I am not sure if she is a candidate for radiation or chemotherapy at this time. Once this is determined, we will decide when she can go and try to keep her as comfortable as possible at home and avoid repeat these recurrent admissions. PHYSICAL EXAM: Not allowed. IMPRESSION: 1. Left anterior chest pain. 2. Carcinoma of the left breast. 3. Hepatitis C. 4. Cirrhosis. 5. Chronic obstructive pulmonary disease. 6. Ascites. PLAN: Await further recommendations from breast surgery and Oncology. MMODL / IJN: [id number] /
[2018-09-16 19:35] VITALS: RESP 18
[2018-09-16] MEDS: ALPRAZolam 1 MG TAB PO PRN (20:05)
[2018-09-17] MEDS: HYDROmorphone 1 MG/ML 1 ML SYRINGE IVP PRN ×3 (00:05→08:03)
[2018-09-17] MEDS: HYDROcodone/APAP 10-325MG 1 EACH TAB PO PRN ×2 (00:39→06:41)
[2018-09-17 04:05] VITALS: TEMP 98.5
[2018-09-17] MEDS: ALPRAZolam 1 MG TAB PO PRN (08:03)
[2018-09-17 08:44] VITALS: BP 131/64; PULSE 75
--- NOTE | 2018-09-17 11:32 | P.CONS ---
History of Present Illness - Reason for Consult Consult date: 09/17/18 Hepatology clearance for surgery Requesting physician: Adela Whitehead - Chief Complaint breast pain - History of Present Illness 53-year-old female well-known to the GI service with a past medical history of medical noncompliance, liver cirrhosis portal hypertension and pancytopenia, and esophageal varices, chronic ascites chronic HCV status post antiviral treatment with therapeutic response and left breast invasive high-grade ductal carcinoma. Until requested for hepatology clearance for breast surgery. CT chest abdomen and pelvis 09/06/2018 large 3.600 m chest wall mass in the left suspicious for malignancy. Large amount of ascites. Splenomegaly. No discrete liver mass. Bone scan negative. LFTs stable total bilirubin 0.6. AST 31. ALT 16. AP 104. Lipase 110. BUN 9. Creatinine 0.6. Last paracentesis June 2018 7.4 L removed. Presents chemistries white count 2.2. Hemoglobin 8. Platelet 58,000. INR 1.1. HCV RNA less than 12. BUN 9. Creatinine 0.6. Last AFP was 4.07 January 2017. Review of Systems Constitutional: Denies fever, chills, sweats, weight gain, or loss. HEENT: Negative for migraines, blurred vision or loss, earaches, drainage, tinnitus, oral mucosal lesions, dysphagia, or odynophagia. CARDIAC: Negative for chest pain, arrhythmias, or palpitation. RESPIRATORY: Negative for shortness of breath, hemoptysis, cough, or sputum production. GI: See HPI for pertinent findings. : Negative for hematuria, urgency, frequency, polyuria, or dysuria. GYNc: Negative vaginal discharge. MUSCULOSKELETAL: Negative for muscle aches, swelling, arthritis, and arthralgias. NEUROLOGIC: Negative for stroke or TIA. ENDOCRINE: Negative for thyroid problems. SKIN: Negative for rash or itching. PSYCHIATRIC: Negative history for depression and anxiety Past Medical History Past Medical History: Cancer, COPD, GERD/Reflux, GI Bleed, Hearing Disorder / Deafness, Hypertension, Liver Disease Additional Past Medical History / Comment(s): Hepatitis C, intractable ascities with multiple paracentesis, cirrhosis, peritonitis, pancytopenia, vertigo; "benign abd mass", multiple upper GI bleeds, esophageal varicies/esophageal banding, left breast cancer had chemo last on 09-12-16-did not tolerate-completed only 3 cycles-then it was stopped/no surgery, lt ear hearing loss. History of Any Multi-Drug Resistant Organisms: None Reported Past Surgical History: Adenoidectomy, Tonsillectomy Additional Past Surgical History / Comment(s): Multiple paracentesises, EGDs, esophageal banding, right chest mediport 08-06-16, l breast bx., Past Anesthesia/Blood Transfusion Reactions: No Reported Reaction Additional Past Anesthesia/Blood Transfusion Reaction / Comm: blood transfusions- no reaction Past Psychological History: Anxiety Additional Psychological History / Comment(s): Pt's son lives with her in a 2 story home with 1 front step. Pt's bathroom and bedroom on 2nd floor so pt now has a hospital bed and bsc on first floor. Smoking Status: Former smoker Past Alcohol Use History: None Reported Additional Past Alcohol Use History / Comment(s): Patient started smoking at age 13/2 a pack a day and cut back to one to 3 cigarettes per day no history of alcohol abuse. Patient lives with her son. She is currently on disability. Past Drug Use History: None Reported - Past Family History Mother Family Medical History: Cancer Additional Family Medical History / Comment(s): of lung ca at the age of 59yrs. She was a smoker. Father Family Medical History: Myocardial Infarction ([place]) Additional Family Medical History / Comment(s): from 2nd heart attack at the age of 59yrs. Medications and Allergies Home Medications Medication Instructions Recorded Confirmed Type HYDROcodone/APAP 10-325MG [[place] 0.5 - 1 tab PO QID PRN 09/14/18 09/14/18 History 10-325] ALPRAZolam [Xanax] 1 mg PO TID PRN #30 tab 09/17/18 Rx Allergies Allergy/AdvReac Type Severity Reaction Status Date / Time No Known Allergies Allergy Verified 09/14/18 20:50 Physical Exam Vitals: Vital Signs Temp Pulse Resp BP BP Pulse Ox 09/17/18 08:00 98.5 F 75 18 131/64 94 L 09/17/18 04:00 98.5 F 86 18 95/57 94 L 09/16/18 23:57 97.3 F L 82 18 104/58 93 L 09/16/18 20:00 18 09/16/18 19:34 98.1 F 90 18 110/68 95 09/16/18 16:00 97.6 F 91 17 102/55 96 09/16/18 12:00 88 16 09/16/18 11:38 97.6 F 88 16 102/68 94 L Intake and Output 09/16/18 09/17/18 09/17/18 22:59 06:59 14:59 Other: Voiding Method Toilet Toilet # Voids 1 1 General appearance: The patient is alert, oriented, in no acute distress. HET: Head is normocephalic and atraumatic. Pupils are equal and reactive. Oropharynx is clear without lesions. Neck: Supple without lymphadenopathy. Trachea midline. Heart: S1 S2. Regular rate and rhythm. Lungs: No crackles or wheezes are heard. Left chest breast mass visible. Abdomen: Soft, distended with moderate ascites with bowel sounds. No periton eal signs. No palpable organomegaly or masses. Extremities: +2 bilateral lower extremity edema. Radial and pedal pulses are 2/4 bilaterally. Neurological: No focal deficits. Strength and sensation are grossly intact. Results CBC & Chem 7: 09/14/18 22:30 09/14/18 22:30 CT scan - abdomen: report reviewed (Dr. Pina) Assessment and Plan (1) Cirrhosis of liver Narrative/Plan: Well compensated normal LFTs INR stable at 1.1. Current Visit: No Status: Acute Code(s): K74.60 - UNSPECIFIED CIRRHOSIS OF LIVER SNOMED Code(s): 51716172 (2) History of hepatitis C Narrative/Plan: Status post antiviral therapy with current negative quantitation Current Visit: Yes Status: Acute Code(s): Z86.19 - PERSONAL HISTORY OF OTHER INFECTIOUS AND PARASITIC DISEASES SNOMED Code(s): 14722804835844 (3) Left breast mass Current Visit: Yes Status: Acute Priority: High Code(s): N63 - UNSPECIFIED LUMP IN BREAST * DO NOT USE * SNOMED Code(s): 21545392 (4) Ascites Current Visit: No Status: Acute Code(s): R18.8 - OTHER ASCITES SNOMED Code(s): 041769521 (5) Chronic anemia Current Visit: No Status: Acute Code(s): D64.9 - ANEMIA, UNSPECIFIED SNOMED Code(s): 162688899 (6) Portal hypertension Current Visit: Yes Status: Acute Code(s): K76.6 - PORTAL HYPERTENSION SNOMED Code(s): 91380596 Plan: 1. Cleared for breast surgery from a GI standpoint however she could benefit fr om low-dose Lasix 40 mg daily and Aldactone 50 mg daily with outpatient observation of electrolyte monitoring. Paracentesis as needed. Low-salt diet recommended. We'll check an AFP for surveillance. Advised to return to office in 2-3 weeks after surgery for reevaluation. Thank you for this kind referral and the opportunity to participate in the care of your patient. This consultation was discussed with Dr. Pina. The impression and plan of care have been directed as dictated.
--- NOTE | 2018-09-17 18:38 | DS ---
DISCHARGE SUMMARY CHIEF COMPLAINT: Left anterior chest pain. HISTORY OF PRESENT ILLNESS AND PHYSICAL EXAMINATION: Details of this lady's history and physical can be found in the initial workup. LABORATORY STUDIES: While she was in the hospital she had laboratory studies, details of which can be found in the laboratory section of her chart. COURSE IN THE HOSPITAL: After admission she was placed on bedrest and started on analgesics. She was seen by Breast Surgery and she agreed to follow up with treatment. It was felt that she could leave the hospital, and she would go to the surgery department, where she would be set up for further treatment, whether it be radiation, surgery or a combination. She will go home on MS Contin 4 times a day with Vicodin 10 as an interim analgesic. She will be seen in the office in 4 or 5 days. FINAL DIAGNOSES: 1. Left anterior chest wall pain. 2. Carcinoma of the breast. 3. Hepatitis C. 4. Cirrhosis. 5. Intractable ascites. OPERATIONS: None. CONSULTATIONS: Breast Surgery. She is improved. MMODL / IJN: [id number] /
== END 2018-09-17 11:40 | disposition home or self-care (01) ==
LOC: EC 20:30 → 1SOBS 21:39
PROVIDERS: ADMIT Family Medicine; ATTEND Family Medicine
DX: G89.3 Neoplasm related pain (acute) (chronic) (principal); J44.9 Chronic obstructive pulmonary disease, unspecified; I10 Essential (primary) hypertension; R18.8 Other ascites; B19.20 Unspecified viral hepatitis C without hepatic coma; K74.60 Unspecified cirrhosis of liver; C50.912 Malignant neoplasm of unspecified site of left female breast; B18.2 Chronic viral hepatitis C; Z17.1 Estrogen receptor negative status [ER-]; D61.818 Other pancytopenia; C50.911 Malignant neoplasm of unspecified site of right female breast; F17.200 Nicotine dependence, unspecified, uncomplicated; F41.9 Anxiety disorder, unspecified; H91.90 Unspecified hearing loss, unspecified ear; F32.9 Major depressive disorder, single episode, unspecified; K21.9 Gastro-esophageal reflux disease without esophagitis; K76.6 Portal hypertension; Z82.49 Family history of ischemic heart disease and other diseases of the circulatory system; Z80.1 Family history of malignant neoplasm of trachea, bronchus and lung; Z91.19 Patient's noncompliance with other medical treatment and regimen; Z92.21 Personal history of antineoplastic chemotherapy; Z98.890 Other specified postprocedural states; Z79.891 Long term (current) use of opiate analgesic
CPT/HCPCS: 96361 ×3; 96376 ×4; 96374; 96375; 99285; 36415; 93005; 83880; 80053; 83690; 83735; 84484; 85025; 85610; 85730; 82105; 71046; G0378 ×4; J2405 ×2; J1170 ×5

== ENCOUNTER 2018-09-17 15:48 | Observation (INO) | payer MEDICARE, OTHER ==
[2018-09-17] MEDS ORDERED: HYDROmorphone 0.5 MG/0.5 ML SYRINGE IM STA (16:47)
[2018-09-17] MEDS ORDERED: HYDROmorphone 1 MG/ML 1 ML SYRINGE IM STA (17:06)
[2018-09-17] MEDS ORDERED: NALOXONE 0.4 MG/ML 1 ML VIAL IV PRN (18:06)
--- NOTE | 2018-09-17 18:08 | ED ---
General Adult HPI - General Chief complaint: Recheck/Abnormal Lab/Rx Stated complaint: Needs pain meds Time Seen by Provider: 09/17/18 16:07 Source: patient Mode of arrival: wheelchair Limitations: no limitations - History of Present Illness Initial comments: Patient is a 53-year-old male presents emergency Department for pain due to breast cancer. Patient reports she was diagnosed with breast cancer and has an appointment on Thursday with pain management patient states that she typically is admitted for inpatient management in between appointments due to severe pain. Patient reports the pain is sharp and constant. Patient reports the pain is localized on the left breast. Patient denies fever, nausea or vomiting. Patient reports that she is being treated with radiation for breast cancer. Patient also reports that she is unable to get refills for her prescriptions because the pharmacy will not fill them without a photo ID which she does not have. - Related Data Home Medications Medication Instructions Recorded Confirmed HYDROcodone/APAP 10-325MG [[place] 0.5 - 1 tab PO QID PRN 09/14/18 09/17/18 10-325] Previous Rx's Medication Instructions Recorded ALPRAZolam [Xanax] 1 mg PO TID PRN #30 tab 09/17/18 Allergies Allergy/AdvReac Type Severity Reaction Status Date / Time No Known Allergies Allergy Verified 09/17/18 16:34 Review of Systems ROS Statement: Those systems with pertinent positive or pertinent negative responses have been documented in the HPI. ROS Other: All systems not noted in ROS Statement are negative. Past Medical History Past Medical History: Cancer, COPD, GERD/Reflux, GI Bleed, Hearing Disorder / Deafness, Hypertension, Liver Disease Additional Past Medical History / Comment(s): Hepatitis C, intractable ascities with multiple paracentesis, cirrhosis, peritonitis, pancytopenia, vertigo; "benign abd mass", multiple upper GI bleeds, esophageal varicies/esophageal b anding, left breast cancer had chemo last on 09-12-16-did not tolerate-completed only 3 cycles-then it was stopped/no surgery, lt ear hearing loss. History of Any Multi-Drug Resistant Organisms: None Reported Past Surgical History: Adenoidectomy, Tonsillectomy Additional Past Surgical History / Comment(s): Multiple paracentesises, EGDs, esophageal banding, right chest mediport 08-06-16, l breast bx., Past Anesthesia/Blood Transfusion Reactions: No Reported Reaction Additional Past Anesthesia/Blood Transfusion Reaction / Comment(s): blood transfusions- no reaction Past Psychological History: Anxiety Smoking Status: Former smoker Past Alcohol Use History: None Reported Past Drug Use History: None Reported - Past Family History Mother Family Medical History: Cancer Additional Family Medical History / Comment(s): of lung ca at the age of 59yrs. She was a smoker. Father Family Medical History: Myocardial Infarction ([place]) Additional Family Medical History / Comment(s): from 2nd heart attack at the age of 59yrs. General Exam Limitations: no limitations General appearance: alert, in no apparent distress Head exam: Present: atraumatic, normocephalic, normal inspection Eye exam: Present: normal appearance, PERRL, EOMI Pupils: Present: normal accommodation ENT exam: Present: normal exam Neck exam: Present: normal inspection, full ROM Respiratory exam: Present: normal lung sounds bilaterally, other (Left breast erythema, swelling and skin discoloration.) Cardiovascular Exam: Present: regular rate, normal rhythm, normal heart sounds GI/Abdominal exam: Present: other Extremities exam: Present: normal inspection, full ROM Back exam: Present: normal inspection, full ROM Neurological exam: Present: alert, oriented X3 Psychiatric exam: Present: normal affect, normal mood Skin exam: Present: warm, intact, normal color Course Vital Signs 09/17/18 15:57 Temperature 98.4 F Pulse Rate 91 Respiratory 20 Rate Blood Pressure 133/78 O2 Sat by Pulse 99 Oximetry Medical Decision Making - Medical Decision Making Patient is a 53-year-old female presents emergency Department for pain management due to breast cancer. Patient was given Dilaudid for pain control. Patient reports feeling better but is requesting inpatient management. Patient will be admitted. Dr. Estrada will be admitting physician. Case was discussed with Dr. Byrne who was in agreement with the treatment plan. Disposition Clinical Impression: Encounter for medication refill Disposition: ADMITTED IP TO THIS HOSP Condition: Stable Additional Instructions: Patient will be admitted for inpatient management. Is patient prescribed a controlled substance at d/c from ED?: No Referrals: Mark Estrada MD [Primary Care Provider] - 1-2 days Time of Disposition: 18:06
[2018-09-17] MEDS ORDERED: SODIUM CHLORIDE 0.9% 1,000 ML IV SCH (18:15)
[2018-09-17] MEDS: HYDROmorphone 0.5 MG/0.5 ML SYRINGE IVP PRN ×3 (19:22→22:25)
[2018-09-17] MEDS: HYDROcodone/APAP 5-325MG 1 EACH TAB PO PRN (20:13)
[2018-09-17 21:09] VITALS: RESP 18
[2018-09-18] MEDS: HYDROcodone/APAP 5-325MG 1 EACH TAB PO PRN ×3 (00:12→09:05)
[2018-09-18] MEDS: HYDROmorphone 0.5 MG/0.5 ML SYRINGE IVP PRN ×5 (02:19→16:17)
[2018-09-18 05:53] VITALS: BP 100/64; PULSE 89; TEMP 97.8
[2018-09-18] MEDS ORDERED: ALPRAZolam 1 MG TAB PO PRN (10:24)
[2018-09-18] MEDS ORDERED: HYDROcodone/APAP 10-325MG 1 EACH TAB PO PRN (10:24)
--- NOTE | 2018-09-18 16:20 | HP ---
HISTORY AND PHYSICAL CHIEF COMPLAINT: Intractable pain. HISTORY OF PRESENT ILLNESS: This lady was just discharged from the hospital earlier today. Apparently she went to the drugstore to obtain her analgesics and they would not give them to her because she did not have a picture ID. She knows that this is the law. She then came to the emergency room, where she was evaluated. A decision was made by the emergency room to admit her overnight until she can make arrangements to obtain her drugs properly. REVIEW OF SYSTEMS: She is still only complaining of the pain in the left anterior chest. There has been no other change in history. Past medical history, family history, and personal and social histories are all the same and unchanged. PHYSICAL EXAMINATION: Blood pressure is 100/54 with a pulse of 70, respirations of 36, and she is afebrile. In general she appeared to be chronically ill. Head, ears, eyes, nose, mouth and throat were normal. Chest demonstrated decreased breath sounds with scattered rales at the bases. Cardiac exam demonstrated sinus tachycardia. The abdomen was distended with ascites and there was mild tenderness. Bowel sounds were not heard. Extremities were normal. Neurologically, other than her flattened and depressed affect and mood, she is intact. She is admitted to the hospital with the diagnoses: 1. Intractable left chest wall pain secondary to carcinoma of the left breast. 2. Hepatitis C. 3. Cirrhosis. 4. Intractable ascites. 5. Depression. 6. Severe anxiety. PLAN: Bed rest and analgesics until we can arrange for her to get her narcotics as an outpatient. MMODL / IJN: [id number] /
--- NOTE | 2018-09-18 17:29 | DS ---
DISCHARGE SUMMARY CHIEF COMPLAINT: Intractable pain. HISTORY OF PRESENT ILLNESS AND PHYSICAL EXAMINATION: Details of this lady's history and physical can be found in the initial workup. LABORATORY STUDIES: While she was in the hospital she had laboratory studies, details of which can be found in the laboratory section of her chart. COURSE IN THE HOSPITAL: After admission she was placed on bedrest, started intravenous fluids and her usual narcotic analgesics. Arrangements were made for morphine 15 mg twice a day to be sent to [facility] on [address] along with Vicodin 10 one every 4 hours p.r.n. Both of these were filled with a month's supply of 60 and 180, respectively. FINAL DIAGNOSES: 1. Intractable left chest and abdominal pain. 2. Carcinoma of the left breast. 3. Hepatitis C. 4. Cirrhosis. 5. Intractable ascites. 6. Depression. 7. Anxiety. OPERATIONS: None. CONSULTATIONS: None. She is improved. MMODL / IJN: [id number] /
== END 2018-09-18 17:00 | disposition home or self-care (01) ==
LOC: EC 15:48 → 3NMEDONC 19:25
PROVIDERS: ADMIT Family Medicine; ATTEND Family Medicine
DX: G89.3 Neoplasm related pain (acute) (chronic) (principal); C50.912 Malignant neoplasm of unspecified site of left female breast; K74.60 Unspecified cirrhosis of liver; B19.20 Unspecified viral hepatitis C without hepatic coma; R18.8 Other ascites; K21.9 Gastro-esophageal reflux disease without esophagitis; J44.9 Chronic obstructive pulmonary disease, unspecified; I10 Essential (primary) hypertension; H91.90 Unspecified hearing loss, unspecified ear; D61.818 Other pancytopenia; F41.9 Anxiety disorder, unspecified; R00.0 Tachycardia, unspecified; F32.9 Major depressive disorder, single episode, unspecified; Z79.899 Other long term (current) drug therapy; Z92.3 Personal history of irradiation; Z87.891 Personal history of nicotine dependence; Z87.19 Personal history of other diseases of the digestive system; Z95.828 Presence of other vascular implants and grafts; Z80.1 Family history of malignant neoplasm of trachea, bronchus and lung; Z82.49 Family history of ischemic heart disease and other diseases of the circulatory system
CPT/HCPCS: 96376 ×3; 96375; 96374; 99284; G0378 ×2; J1170 ×3; J1642

== ENCOUNTER → 2018-09-17 | Outpatient (CLI) | payer MEDICARE, OTHER ==
[2018-09-17 12:00] VITALS: BP 81/54; PULSE 74; RESP 16; TEMP 98; BMI 22.1
--- NOTE | 2018-09-17 12:59 | P.PN ---
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 She has a biopsy proven left breast cancer which is painful and closely adherent to the chest wall. She was diagnosed in 2016 with a left breast mass. Staging PET scan at that time was negative for metastatic disease. She underwent 3 cycles of chemotherapy. Treatment was stopped secondary to neutropenic fever. She had recurrent hospitalizations from October through December 2016 secondary to liver decompensation. She did appear to have a response and was assessed for surgery. She was not felt to be a candidate for general anesthesia. She was referred to [facility] where she was also not felt to be a surgical candidate. The patient was recently admitted secondary to pain and pressure sensation in the left chest wall. The patient was evaluated for possible surgical resection. A consultation with GI as well as radiation oncology was obtained. After discussion of the case with GI it was felt that the anesthetic risk as a child class B could be as high as 50-60% mortality. This was discussed with the patient's daughter and the patient. Therefore if there is a alternative treatment there was like to pursue this. She is going to be seen by radiation oncology. Additionally I have suggested consultation at a tertiary care center such as [facility]. Medical oncology does not feel that the gantry with any further chemotherapy at this time. Physical exam: Breast examination: Left breast: Approximately 3 x 4 cm lesion medial aspect of the left breast which is adherent although questionably mobile to the left chest sternum/chest wall Left axilla: No discrete adenopathy at this time Right breast: No dominant masses or nodules of concern Right axilla: No adenopathy of concern Impression: 1. Left breast cancer triple negative closely adherent to left chest wall 2. History of pancytopenia 3. Hepatitis C 4. Esophageal varices 5. Anxiety/depression 6. Patient is not a candidate for chemotherapy 7. Child class the increased operative risk poor surgical candidate Plan: 1. Patient will be seen by radiation oncology 2. Medical management of medical conditions 3. Consider consultation at a tertiary care center Cc: Dr. Hudson
== END ==
LOC: WWCWWP 11:37
PROVIDERS: ATTEND Surgery
DX: Z53.9 Procedure and treatment not carried out, unspecified reason (principal)

== ENCOUNTER 2019-01-20 16:47 | Observation (INO) | payer MEDICARE, OTHER ==
[2019-01-20] MEDS ORDERED: ONDANSETRON 4 MG/2 ML VIAL IVP STA (17:20)
[2019-01-20] MEDS ORDERED: HYDROmorphone 1 MG/ML 1 ML SYRINGE IVP STA (17:20)
--- NOTE | 2019-01-20 17:26 | ED ---
Abdominal Pain HPI - General Chief Complaint: Abdominal Pain Stated Complaint: Liver pain Time Seen by Provider: 01/20/19 17:02 Source: patient, RN notes reviewed, old records reviewed Mode of arrival: ambulatory Limitations: no limitations - History of Present Illness Initial Comments: This is a 53-year-old female the ER today. She was essay for evaluation regards to bowel pain. Patient has significant history of cirrhosis also the liver with significant amount of ascitic fluid. Patient does come to the ER for pain and drainage occasionally but has not been here quite some time. Patient states her pain is been increasing lower extremity edema is been increasing and chills as new right-sided abdominal pain. Mild nausea no vomiting states she overall does not feel well. Patient does admit to running out of pain medication yesterday. MD Complaint: abdominal pain, flank pain (right) Location: R flank Radiation: R flank Migration to: no migration Severity: moderate Severity scale (1-10): 4 Quality: stabbing Consistency: constant Improves With: nothing Worsens With: nothing Associated Symptoms: nausea - Related Data Home Medications Medication Instructions Recorded Confirmed HYDROcodone/APAP 10-325MG [[place] 1 tab PO Q4H PRN 01/20/19 01/20/19 10-325] Previous Rx's Medication Instructions Recorded Morphine Sulfate ER [Ms Contin] 15 mg PO Q12HR 3 Days #6 tab 09/18/18 Allergies Allergy/AdvReac Type Severity Reaction Status Date / Time No Known Allergies Allergy Verified 01/20/19 17:56 Review of Systems ROS Statement: Those systems with pertinent positive or pertinent negative responses have been documented in the HPI. ROS Other: All systems not noted in ROS Statement are negative. Past Medical History Past Medical History: Cancer, COPD, GERD/Reflux, GI Bleed, Hearing Disorder / Deafness, Hypertension, Liver Disease Additional Past Medical History / Comment(s): Hepatitis C, intractable ascities with multiple paracentesis, cirrhosis, peritonitis, pancytopenia, vertigo; "benign abd mass", multiple upper GI bleeds, esophageal varicies/esophageal banding, left breast cancer had chemo last on 09-12-16-did not tolerate-completed only 3 cycles-then it was stopped/no surgery, lt ear hearing loss. History of Any Multi-Drug Resistant Organisms: None Reported Past Surgical History: Adenoidectomy, Tonsillectomy Additional Past Surgical History / Comment(s): Multiple paracentesises, EGDs, esophageal banding, right chest mediport 5-3-17, l breast bx., Past Anesthesia/Blood Transfusion Reactions: No Reported Reaction Additional Past Anesthesia/Blood Transfusion Reaction / Comment(s): blood transfusions- no reaction Past Psychological History: No Psychological Hx Reported, Anxiety Smoking Status: Former smoker Past Alcohol Use History: None Reported Past Drug Use History: None Reported - Past Family History Mother Family Medical History: Cancer Additional Family Medical History / Comment(s): of lung ca at the age of 59yrs. She was a smoker. Father Family Medical History: Myocardial Infarction ([place]) Additional Family Medical History / Comment(s): from 2nd heart attack at the age of 59yrs. General Exam Limitations: no limitations General appearance: alert, in no apparent distress Head exam: Present: atraumatic, normocephalic, normal inspection Eye exam: Present: normal appearance, PERRL, EOMI. Absent: scleral icterus, conjunctival injection, periorbital swelling ENT exam: Present: normal exam, mucous membranes dry Neck exam: Present: normal inspection. Absent: tenderness, meningismus, lymphadenopathy Respiratory exam: Present: normal lung sounds bilaterally. Absent: respiratory distress, wheezes, rales, rhonchi, stridor Cardiovascular Exam: Present: normal rhythm, tachycardia, normal heart sounds. Absent: systolic murmur, diastolic murmur, rubs, gallop, clicks GI/Abdominal exam: Present: soft, normal bowel sounds. Absent: distended, tenderness, guarding, rebound, rigid Extremities exam: Present: normal inspection, full ROM, normal capillary refill. Absent: tenderness, pedal edema, joint swelling, calf tenderness Back exam: Present: normal inspection Neurological exam: Present: alert, oriented X3, CN II-XII intact Psychiatric exam: Present: normal affect, normal mood Skin exam: Present: warm, dry, intact, normal color. Absent: rash Course Vital Signs 01/20/19 17:09 Temperature 97.8 F Pulse Rate 101 H Respiratory 22 Rate Blood Pressure 139/72 O2 Sat by Pulse 97 Oximetry - Reevaluation(s) Reevaluation #1: 01/20/19 17:25 Medical record is reviewed Medical Decision Making - Medical Decision Making 53 female the ER for evaluation. Patient does say for evaluation regards to pain. Abdominal pain with ascites and increased fluid. Patient will bilateral lower extremity fluid as well. Patient be admitted for pain control and further evaluation management, treatment of elevated ammonia - Lab Data Result diagrams: 01/20/19 17:35 01/20/19 17:35 Lab Results 01/20/19 01/20/19 01/20/19 Range/Units 17:35 17:35 17:35 WBC 1.8 L (3.8-10.6) k/uL RBC 3.20 L (3.80-5.40) m/uL Hgb 11.3 L (11.4-16.0) gm/dL Hct 34.6 (34.0-46.0) % MCV 108.0 H (80.0-100.0) fL MCH 35.2 H (25.0-35.0) pg MCHC 32.6 (31.0-37.0) g/dL RDW 15.2 (11.5-15.5) % Plt Count 48 L (150-450) k/uL Neutrophils % 44 % Lymphocytes % 36 % Monocytes % 8 % Eosinophils % 7 % Basophils % 1 % Neutrophils # 0.8 L (1.3-7.7) k/uL Lymphocytes # 0.6 L (1.0-4.8) k/uL Monocytes # 0.1 (0-1.0) k/uL Eosinophils # 0.1 (0-0.7) k/uL Basophils # 0.0 (0-0.2) k/uL Hypochromasia Slight Macrocytosis Marked A PT (9.0-12.0) sec INR (<1.2) APTT (22.0-30.0) sec Sodium 143 (137-145) mmol/L Potassium 4.0 (3.5-5.1) mmol/L Chloride 107 (98-107) mmol/L Carbon Dioxide 26 (22-30) mmol/L Anion Gap 10 mmol/L BUN 11 (7-17) mg/dL Creatinine 0.67 (0.52-1.04) mg/dL Est GFR (CKD-EPI)AfAm >90 (>60 ml/min/1.73 sqM) Est GFR (CKD-EPI)NonAf >90 (>60 ml/min/1.73 sqM) Glucose 115 H (74-99) mg/dL Calcium 9.1 (8.4-10.2) mg/dL Phosphorus 4.0 (2.5-4.5) mg/dL Magnesium 1.8 (1.6-2.3) mg/dL Total Bilirubin 1.9 H (0.2-1.3) mg/dL AST 31 (14-36) U/L ALT 21 (9-52) U/L Alkaline Phosphatase 86 (38-126) U/L Ammonia 40 H (<30) umol/L Creatine Kinase 67 (30-135) U/L Total Protein 7.4 (6.3-8.2) g/dL Albumin 3.2 L (3.5-5.0) g/dL Amylase 31 (30-110) U/L Lipase 56 (23-300) U/L Serum Alcohol <10 mg/dL 01/20/19 Range/Units 17:35 WBC (3.8-10.6) k/uL RBC (3.80-5.40) m/uL Hgb (11.4-16.0) gm/dL Hct (34.0-46.0) % MCV (80.0-100.0) fL MCH (25.0-35.0) pg MCHC (31.0-37.0) g/dL RDW (11.5-15.5) % Plt Count (150-450) k/uL Neutrophils % % Lymphocytes % % Monocytes % % Eosinophils % % Basophils % % Neutrophils # (1.3-7.7) k/uL Lymphocytes # (1.0-4.8) k/uL Monocytes # (0-1.0) k/uL Eosinophils # (0-0.7) k/uL Basophils # (0-0.2) k/uL Hypochromasia Macrocytosis PT 11.9 (9.0-12.0) sec INR 1.1 (<1.2) APTT 28.5 (22.0-30.0) sec Sodium (137-145) mmol/L Potassium (3.5-5.1) mmol/L Chloride (98-107) mmol/L Carbon Dioxide (22-30) mmol/L Anion Gap mmol/L BUN (7-17) mg/dL Creatinine (0.52-1.04) mg/dL Est GFR (CKD-EPI)AfAm (>60 ml/min/1.73 sqM) Est GFR (CKD-EPI)NonAf (>60 ml/min/1.73 sqM) Glucose (74-99) mg/dL Calcium (8.4-10.2) mg/dL Phosphorus (2.5-4.5) mg/dL Magnesium (1.6-2.3) mg/dL Total Bilirubin (0.2-1.3) mg/dL AST (14-36) U/L ALT (9-52) U/L Alkaline Phosphatase (38-126) U/L Ammonia (<30) umol/L Creatine Kinase (30-135) U/L Total Protein (6.3-8.2) g/dL Albumin (3.5-5.0) g/dL Amylase (30-110) U/L Lipase (23-300) U/L Serum Alcohol mg/dL Disposition Clinical Impression: Pancreatitis, Intractable nausea and vomiting, Malignant cachexia, Ascites, Abdominal pain, Hyperammonemia Disposition: ADMITTED IP TO THIS [facility] Condition: Fair Is patient prescribed a controlled substance at d/c from ED?: No Referrals: Mark Estrada MD [Primary Care Provider] - 1-2 days
[2019-01-20 17:52] LABS: Basophils % (A) 1 %; Eosinophils # (A) 0.1 k/uL (0-0.7); Eosinophils % (A) 7 %; HCT 34.6 % (34.0-46.0); HGB 11.3 gm/dL (11.4-16.0); Hypochromasia Slight; Lymphocytes # (A) 0.6 k/uL (1.0-4.8); Lymphocytes % (A) 36 %; MCH 35.2 pg (25.0-35.0); MCHC 32.6 g/dL (31.0-37.0); Macrocytosis Marked; Mean Platelet Volume 9.5; Monocytes # (A) 0.1 k/uL (0-1.0); Monocytes % (A) 8 %; Neutrophils # (A) 0.8 k/uL (1.3-7.7); Neutrophils % (A) 44 %; RDW 15.2 % (11.5-15.5); WBC 1.8 k/uL (3.8-10.6)
[2019-01-20 17:54] LABS: INR 1.1 (<1.2); Prothrombin Time 11.9 sec (9.0-12.0)
[2019-01-20 17:55] LABS: Partial Thromboplastin Time 28.5 sec (22.0-30.0); Platelet Count 48 k/uL (150-450)
[2019-01-20 18:14] LABS: ALT 21 U/L (9-52); AST 31 U/L (14-36); African American GFR (CKD) >90 (>60 ml/min/1.73 sqM); Albumin 3.2 g/dL (3.5-5.0); Alcohol <10 mg/dL; Alkaline Phosphatase 86 U/L (38-126); Amylase 31 U/L (30-110); Anion Gap 10 mmol/L; Blood Urea Nitrogen 11 mg/dL (7-17); Calcium 9.1 mg/dL (8.4-10.2); Carbon Dioxide 26 mmol/L (22-30); Chloride 107 mmol/L (98-107); Creatine Kinase 67 U/L (30-135); Glucose 115 mg/dL (74-99); Magnesium 1.8 mg/dL (1.6-2.3); Non-African American GFR(CKD) >90 (>60 ml/min/1.73 sqM); Sodium 143 mmol/L (137-145); Total Bilirubin 1.9 mg/dL (0.2-1.3); Total Protein 7.4 g/dL (6.3-8.2)
[2019-01-20] MEDS ORDERED: LACTULOSE 20 GM/30 ML CUP PO ONE (19:27)
[2019-01-20] MEDS ORDERED: SODIUM CHLORIDE 0.9% 1,000 ML IV ONE (19:27)
[2019-01-20] MEDS: HYDROmorphone 1 MG/ML 1 ML SYRINGE IVP PRN ×2 (19:44→23:18)
[2019-01-20 21:58] VITALS: BMI 25.0
[2019-01-21] MEDS: HYDROmorphone 1 MG/ML 1 ML SYRINGE IVP PRN ×4 (02:11→13:34)
[2019-01-21] MEDS ORDERED: LACTULOSE 20 GM/30 ML CUP PO SCH (09:00)
[2019-01-21 10:02] LABS: HCT 30.6 % (34.0-46.0); HGB 10.1 gm/dL (11.4-16.0); Hypochromasia Slight; MCH 35.6 pg (25.0-35.0); MCV 107.7 fL (80.0-100.0); Macrocytosis Marked; Mean Platelet Volume 8.9; RBC 2.84 m/uL (3.80-5.40); RDW 15.5 % (11.5-15.5); WBC 1.8 k/uL (3.8-10.6)
[2019-01-21 10:04] LABS: Platelet Count 48 k/uL (150-450)
--- NOTE | 2019-01-21 10:05 | P.GSHP ---
History of Present Illness H&P Date: 01/21/19 Chief Complaint: Abdominal pain/left breast cancer [id number] white female with the child/Humphries class B cirrhosis. She has a biopsy-proven left breast cancer diagnosed in 2016. Restaging PET scan at that time was negative for metastatic disease. She underwent 3 cycles of chemotherapy. Treatment was stopped secondary to neutropenic fever. She had recurrent hospitalizations from October through December 2016 secondary to left lower decompensation. She did appear to have a response and was assessed for surgery. She was not felt to be a candidate for general anesthesia. She was referred to [facility] where she was also not felt to be a surgical candidate. The patient in September 2018 developed chest wall pain. She was again evaluated for possible surgical resection. A consultation with GI as well as radiation oncology was obtained. She was not felt to be a candidate for any further chemotherapy. The core biopsy of the chest wall lesion was obtained and [id number]. This was positive for grade 3 invasive ductal carcinoma which was triple negative. The consultation with GI ascertained that her surgical risk would be as high as 50-60% mortality. This was discussed with the patient and her daughter and she opted for radiation therapy. Additionally we recommend a consultation at a tertiary care center such as [facility]. The patient did undergo radiation therapy with good response and is no longer complaining of left chest wall discomfort. The patient did not follow through on the appointments [facility]. The patient presented to the hospital at this time with a complaint of abdominal pain and abdominal distention. Family history: Mother: of lung cancer she was a smoker Father: Myocardial infarction Medical history: Left breast cancer COPD GERD GI bleed Hearing disorder Hypertension Hepatitis C liver disease with cirrhosis Anxiety Surgical history Esophageal banding for varices related to liver disease Right chest Mediport Left breast biopsy Multiple paracentesis Social history: Smoke: Coumadin every day smoker Alcohol: Negative Review of systems: HEENT: Decreased hearing Cardiovascular: Hypertension : Nicotine dependence COPD GI: Hepatitis C has had multiple paracentesis, esophageal varices, cirrhosis Psychiatric: Anxiety Breasts: As per HPI - EENT Ears: bilateral: decreased hearing - Breasts Breasts: bilateral: as per HPI - Cardiovascular Cardiovascular: Reports high blood pressure - Respiratory Comment: COPD/smoker - Gastrointestinal Comment: Cirrhosis - Integumentary Comment: Left chest wall skin changes related to malignancy Ascites with abdominal distention - Psychiatric Psychiatric: Reports anxiety Past Medical History Past Medical History: Cancer, COPD, GERD/Reflux, GI Bleed, Hearing Disorder / Deafness, Hypertension, Liver Disease Additional Past Medical History / Comment(s): Hepatitis C, intractable ascities with multiple paracentesis, cirrhosis, peritonitis, pancytopenia, vertigo; "benign abd mass", multiple upper GI bleeds, esophageal varicies/esophageal banding, left breast cancer had chemo last on 09-12-16-did not tolerate-completed only 3 cycles-then it was stopped/no surgery, lt ear hearing loss. History of Any Multi-Drug Resistant Organisms: None Reported Past Surgical History: Adenoidectomy, Tonsillectomy Additional Past Surgical History / Comment(s): Multiple paracentesises, EGDs, esophageal banding, right chest mediport 08-06-16, l breast bx., Past Anesthesia/Blood Transfusion Reactions: No Reported Reaction Additional Past Anesthesia/Blood Transfusion Reaction / Comment(s): blood transfusions- no reaction Past Psychological History: No Psychological Hx Reported, Anxiety Additional Psychological History / Comment(s): Pt's son lives with her in a 2 story home with 1 front step. Pt's bathroom and bedroom on 2nd floor so pt now has a hospital bed and bsc on first floor. Smoking Status: Former smoker Past Alcohol Use History: None Reported Additional Past Alcohol Use History / Comment(s): Patient started smoking at age 13/2 a pack a day and cut back to one to 3 cigarettes per day no history of alcohol abuse. Patient lives with her son. She is currently on disability. Past Drug Use History: None Reported - Past Family History Mother Family Medical History: Cancer Additional Family Medical History / Comment(s): of lung ca at the age of 59yrs. She was a smoker. Father Family Medical History: Myocardial Infarction ([place]) Additional Family Medical History / Comment(s): from 2nd heart attack at the age of 59yrs. Medications and Allergies Home Medications Medication Instructions Recorded Confirmed Type Morphine Sulfate ER [Ms Contin] 15 mg PO Q12HR 3 Days #6 tab 09/18/18 01/20/19 Rx HYDROcodone/APAP 10-325MG [[place] 1 tab PO Q4H PRN 01/20/19 01/20/19 History 10-325] Allergies Allergy/AdvReac Type Severity Reaction Status Date / Time No Known Allergies Allergy Verified 01/20/19 17:56 Surgical - Exam Vital Signs Temp Pulse Resp BP Pulse Ox 97.8 F 101 H 22 139/72 97 01/20/19 17:09 01/20/19 17:09 01/20/19 17:09 01/20/19 17:09 01/20/19 17:09 BMI 25.1 - General cachectic - Eyes normal ocular movement - ENT normal pinna - Neck trachea midline - Respiratory normal respiratory effort, clear to auscultation - Cardiovascular Rhythm: regular Heart Sounds: normal: S1, S2 - Abdomen Ascites mild tender right upper quadrant to palpation - Integumentary Skin changes of her left chest wall related to radiation and prior left breast cancer - Neurologic very anxious - Psychiatric oriented to time, oriented to place Left chest wall: Patient will only allow limited examination of the left chest wall;did appear to be skin changes from radiation the tumor appears to have shrunk and appears to be more freely mobile over the left chest wall Left axilla: No adenopathy of concern Right breast examination was not done at this time Patient is very anxious and only allow limited examination Results - Labs 01/20/19 17:35 01/20/19 17:35 Abnormal Lab Results - Last 24 Hours (Table) 01/20/19 01/20/19 01/20/19 Range/Units 17:35 17:35 17:35 WBC 1.8 L (3.8-10.6) k/uL RBC 3.20 L (3.80-5.40) m/uL Hgb 11.3 L (11.4-16.0) gm/dL MCV 108.0 H (80.0-100.0) fL MCH 35.2 H (25.0-35.0) pg Plt Count 48 L (150-450) k/uL Neutrophils # 0.8 L (1.3-7.7) k/uL Lymphocytes # 0.6 L (1.0-4.8) k/uL Macrocytosis Marked A Glucose 115 H (74-99) mg/dL Total Bilirubin 1.9 H (0.2-1.3) mg/dL Ammonia 40 H (<30) umol/L Albumin 3.2 L (3.5-5.0) g/dL Diabetes panel 01/20/19 Range/Units 17:35 Sodium 143 (137-145) mmol/L Potassium 4.0 (3.5-5.1) mmol/L Chloride 107 (98-107) mmol/L Carbon Dioxide 26 (22-30) mmol/L BUN 11 (7-17) mg/dL Creatinine 0.67 (0.52-1.04) mg/dL Glucose 115 H (74-99) mg/dL Calcium 9.1 (8.4-10.2) mg/dL AST 31 (14-36) U/L ALT 21 (9-52) U/L Alkaline Phosphatase 86 (38-126) U/L Total Protein 7.4 (6.3-8.2) g/dL Albumin 3.2 L (3.5-5.0) g/dL Calcium panel 01/20/19 Range/Units 17:35 Calcium 9.1 (8.4-10.2) mg/dL Phosphorus 4.0 (2.5-4.5) mg/dL Albumin 3.2 L (3.5-5.0) g/dL Pituitary panel 01/20/19 Range/Units 17:35 Sodium 143 (137-145) mmol/L Potassium 4.0 (3.5-5.1) mmol/L Chloride 107 (98-107) mmol/L Carbon Dioxide 26 (22-30) mmol/L BUN 11 (7-17) mg/dL Creatinine 0.67 (0.52-1.04) mg/dL Glucose 115 H (74-99) mg/dL Calcium 9.1 (8.4-10.2) mg/dL Adrenal panel 01/20/19 Range/Units 17:35 Sodium 143 (137-145) mmol/L Potassium 4.0 (3.5-5.1) mmol/L Chloride 107 (98-107) mmol/L Carbon Dioxide 26 (22-30) mmol/L BUN 11 (7-17) mg/dL Creatinine 0.67 (0.52-1.04) mg/dL Glucose 115 H (74-99) mg/dL Calcium 9.1 (8.4-10.2) mg/dL Total Bilirubin 1.9 H (0.2-1.3) mg/dL AST 31 (14-36) U/L ALT 21 (9-52) U/L Alkaline Phosphatase 86 (38-126) U/L Total Protein 7.4 (6.3-8.2) g/dL Albumin 3.2 L (3.5-5.0) g/dL Assessment and Plan Assessment: Impression: 1. Advanced left breast cancer appears to have responded well to radiation therapy 2. Patient may be a better candidate for surgical resection at this time 3. Anxiety/depression 4. Child's class the cirrhosis 5. Ascites 6. Abdominal pain 7. COPD 8. Hypertension 9. At this time the patient is not having any pain related to the breast cancer and would recommend further evaluation of the MRI Plan: 1. Bilateral breast MRI to evaluate the chest wall as well as the breast 2. Medical management of medical conditions 3. We will follow with Lori in the office after her MRI CC: Dr. Estrada
[2019-01-21 10:26] LABS: ALT 14 U/L (9-52); AST 30 U/L (14-36); African American GFR (CKD) >90 (>60 ml/min/1.73 sqM); Albumin 2.7 g/dL (3.5-5.0); Alkaline Phosphatase 79 U/L (38-126); Anion Gap 4 mmol/L; Blood Urea Nitrogen 13 mg/dL (7-17); Calcium 8.4 mg/dL (8.4-10.2); Carbon Dioxide 28 mmol/L (22-30); Chloride 107 mmol/L (98-107); Glucose 97 mg/dL (74-99); Non-African American GFR(CKD) >90 (>60 ml/min/1.73 sqM); Potassium 3.6 mmol/L (3.5-5.1); Sodium 139 mmol/L (137-145); Total Bilirubin 1.5 mg/dL (0.2-1.3); Total Protein 6.6 g/dL (6.3-8.2)
[2019-01-21] MEDS: HYDROcodone/APAP 10-325MG 1 EACH TAB PO PRN ×2 (10:56→15:12)
[2019-01-21 13:02] VITALS: BP 115/56; PULSE 84; RESP 17; TEMP 98.1
--- NOTE | 2019-01-21 14:16 | HP ---
HISTORY AND PHYSICAL CHIEF COMPLAINT: Abdominal pain. HISTORY OF PRESENT ILLNESS: This is another of many admissions for this 53-year-old very noncompliant female. She has a long-standing history of hepatitis C, cirrhosis, intractable ascites, CA of the breast. She manages at home fairly well until she runs out of pain medications. She is told that she can come into the office every 30 days for refills and she is given ample amount to get her through that length of time. However, she cares very little about compliance and whenever she runs out of medicines she goes to the emergency room. REVIEW OF SYSTEMS: She has had no focal neurologic problems, chest pain, cough, hemoptysis, hematemesis, melena, hematochezia, jaundice, renal failure, dysuria, etc. She does have CA of the left breast and has had irradiation treatment and is thought to be a candidate for surgery and is being followed by Dr. Lila Whitehead. She was supposed to get a MRI of the breast possibility of a surgical resection. However, she did not follow through on that test either. She continues to smoke. PHYSICAL EXAMINATION: Blood pressure is 113/70 with a pulse of 75, respirations of 34. She is afebrile. In general, she appeared to be malnourished, pale, and chronically ill in appearance. Head, ears, eyes, nose, mouth, and throat were otherwise unremarkable. Chest has demonstrated an increased AP diameter with very poor breath sounds with scattered rales. Cardiac exam demonstrates sinus tachycardia with no murmurs or extra sounds. The abdomen is protuberant with ascites and she is tender throughout. Liver is enlarged. Bowel sounds are heard. Extremities are normal except for poor muscle bulk and development. Neurologically, she is intact. She is admitted to the hospital diagnoses: 1. Intractable pain. 2. Hepatitis C. 3. Cirrhosis. 4. Portal hypertension with ascites. 5. Chronic obstructive pulmonary disease. 6. Carcinoma of the left breast. PLAN: 1. Bed rest. 2. IV fluids. 3. Analgesics. 4. Consult with Dr. Lila Whitehead and we will probably try to have her get the MRI while she is an inpatient. She will not do it otherwise. MMODL / IJN: [id number] /
--- NOTE | 2019-01-21 14:23 | PN ---
PROGRESS NOTE DATE OF SERVICE: 01/21/2019 CHIEF COMPLAINT: Intractable abdominal pain with ascites and cirrhosis. 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 MRI of the breast will be ordered in that this was requested by the breast surgeon. PHYSICAL EXAMINATION: Breath sounds are diminished due to her increased AP diameter and COPD. Cardiac exam demonstrates sinus tachycardia. The abdomen is protuberant and generally tender with ascites. Liver is enlarged. The breast demonstrates changes compatible with her history of radiation. IMPRESSION: 1. Intractable abdominal pain. 2. Hepatitis C. 3. Cirrhosis. 4. Ascites. 5. Carcinoma of the left breast. PLAN: 1. MRI of the breast. 2. Consult with Dr. Lila Whitehead. After everything was arranged, the patient refused the MRI and wanted to be discharged. MMODL / IJN: [id number] /
--- NOTE | 2019-01-21 17:53 | DS ---
DISCHARGE SUMMARY CHIEF COMPLAINT: Abdominal pain. HISTORY OF PRESENT ILLNESS AND PHYSICAL EXAMINATION: Details of this lady's history and physical can be found in the initial workup. LABORATORY STUDIES: While she was in the hospital she had laboratory studies, details of which can be found in the laboratory section of her chart. COURSE IN THE HOSPITAL: After admission she was placed on bedrest and started on intravenous fluids and analgesics. She was seen by Breast Surgery because she has failed to follow outpatient directions, which included a request that she undergo an MRI. It was hoped that while she was in the hospital we could get the MRI. She was seen by the surgeon but refused the MRI and was sent home. FINAL DIAGNOSES: 1. Intractable abdominal pain. 2. Cirrhosis. 3. Hepatitis C. 4. Intractable ascites. 5. Chronic obstructive pulmonary disease. 6. Carcinoma of left breast. OPERATIONS: None. CONSULTATIONS: Breast Surgery. She is improved. MMODL / IJN: [id number] /
[2019-01-21] MEDS ORDERED: MORPHINE SULFATE ER 15 MG TABLET PO SCH (21:00)
== END 2019-01-21 16:50 | disposition home or self-care (01) ==
LOC: EC 16:47 → 3NMEDONC 19:27
PROVIDERS: ADMIT Family Medicine; ATTEND Family Medicine
DX: R10.9 Unspecified abdominal pain (principal); K74.60 Unspecified cirrhosis of liver; B19.20 Unspecified viral hepatitis C without hepatic coma; R18.8 Other ascites; R14.0 Abdominal distension (gaseous); R64 Cachexia; Z68.25 Body mass index [BMI] 25.0-25.9, adult; J44.9 Chronic obstructive pulmonary disease, unspecified; C50.912 Malignant neoplasm of unspecified site of left female breast; Z17.1 Estrogen receptor negative status [ER-]; K21.9 Gastro-esophageal reflux disease without esophagitis; Z87.19 Personal history of other diseases of the digestive system; H91.90 Unspecified hearing loss, unspecified ear; F41.9 Anxiety disorder, unspecified; I10 Essential (primary) hypertension; F32.9 Major depressive disorder, single episode, unspecified; K76.6 Portal hypertension; R68.83 Chills (without fever); Z91.19 Patient's noncompliance with other medical treatment and regimen; Z92.3 Personal history of irradiation; Z92.21 Personal history of antineoplastic chemotherapy; E72.20 Disorder of urea cycle metabolism, unspecified; F17.210 Nicotine dependence, cigarettes, uncomplicated; Z79.891 Long term (current) use of opiate analgesic; Z80.1 Family history of malignant neoplasm of trachea, bronchus and lung; Z82.49 Family history of ischemic heart disease and other diseases of the circulatory system
CPT/HCPCS: 96376 ×3; 96374; 96375; 99285; 36415; 80053 ×2; 82140 ×2; 82150; 82550; 83690; 83735; 84100; 85025; 85027; 85610; 85730; G0378 ×2; G0480; J2405; J1170 ×2; 80320

== ENCOUNTER 2019-03-23 05:20 | Inpatient (IN) | payer MEDICARE, OTHER ==
[2019-03-23] MEDS ORDERED: HYDROmorphone 1 MG/ML 1 ML SYRINGE IVP STA (06:14)
[2019-03-23 06:27] LABS: ALT 10 U/L (4-34); AST 23 U/L (14-36); African American GFR (CKD) >90 (>60 ml/min/1.73 sqM); Albumin 2.4 g/dL (3.5-5.0); Alkaline Phosphatase 87 U/L (38-126); Anion Gap 5 mmol/L; Blood Urea Nitrogen 12 mg/dL (7-17); Calcium 7.9 mg/dL (8.4-10.2); Carbon Dioxide 25 mmol/L (22-30); Chloride 106 mmol/L (98-107); Glucose 121 mg/dL (74-99); Non-African American GFR(CKD) >90 (>60 ml/min/1.73 sqM); Potassium 3.5 mmol/L (3.5-5.1); Sodium 136 mmol/L (137-145); Total Bilirubin 1.5 mg/dL (0.2-1.3)
--- NOTE | 2019-03-23 06:31 | ED ---
General Adult HPI - General Chief complaint: Abdominal Pain Stated complaint: abd pain Time Seen by Provider: 03/23/19 05:31 Source: patient, RN notes reviewed, old records reviewed Mode of arrival: ambulatory Limitations: no limitations - History of Present Illness Initial comments: 53-year-old female history of liver cirrhosis, and abdominal ascites presenting with generalized abdominal pain and right upper quadrant pain. Patient's symptoms have worsened over the past 4 days. She does have chronic abdominal pain, distention. She denies fever. She states she's had some nausea with no vomiting. She is having bowel movements. Denies chest pain or dyspnea. She has been recently diagnosed with breast cancer and has undergone radiation. No chemotherapy at this time. - Related Data Home Medications Medication Instructions Recorded Confirmed HYDROcodone/APAP 10-325MG [[place] 1 tab PO Q4H PRN 01/20/19 01/20/19 10-325] Previous Rx's Medication Instructions Recorded Morphine Sulfate ER [Ms Contin] 15 mg PO Q12HR 3 Days #6 tab 09/18/18 Allergies Allergy/AdvReac Type Severity Reaction Status Date / Time No Known Allergies Allergy Verified 01/20/19 17:56 Review of Systems ROS Statement: Those systems with pertinent positive or pertinent negative responses have been documented in the HPI. ROS Other: All systems not noted in ROS Statement are negative. Past Medical History Past Medical History: Cancer, COPD, GERD/Reflux, GI Bleed, Hearing Disorder / Deafness, Hypertension, Liver Disease Additional Past Medical History / Comment(s): Hepatitis C, intractable ascities with multiple paracentesis, cirrhosis, peritonitis, pancytopenia, vertigo; "benign abd mass", multiple upper GI bleeds, esophageal varicies/esophageal banding, left breast cancer had chemo last on 09-12-16-did not tolerate-completed only 3 cycles-then it was stopped/no surgery, lt ear hearing loss. History of Any Multi-Drug Resistant Organisms: None Reported Past Surgical History: Adenoidectomy, Tonsillectomy Additional Past Surgical History / Comment(s): Multiple paracentesises, EGDs, esophageal banding, right chest mediport 08-06-16, l breast bx., Past Anesthesia/Blood Transfusion Reactions: No Reported Reaction Additional Past Anesthesia/Blood Transfusion Reaction / Comment(s): blood transf usions- no reaction Past Psychological History: No Psychological Hx Reported, Anxiety Smoking Status: Former smoker Past Alcohol Use History: None Reported Past Drug Use History: None Reported - Past Family History Mother Family Medical History: Cancer Additional Family Medical History / Comment(s): of lung ca at the age of 59yrs. She was a smoker. Father Family Medical History: Myocardial Infarction ([place]) Additional Family Medical History / Comment(s): from 2nd heart attack at the age of 59yrs. General Exam Limitations: no limitations General appearance: alert, in no apparent distress Head exam: Present: atraumatic, normocephalic Eye exam: Present: normal appearance, PERRL. Absent: scleral icterus ENT exam: Present: mucous membranes dry Neck exam: Present: normal inspection. Absent: tenderness, meningismus Respiratory exam: Present: normal lung sounds bilaterally. Absent: respiratory distress, wheezes Cardiovascular Exam: Present: regular rate, normal rhythm GI/Abdominal exam: Present: distended, tenderness, organomegaly, other (fluid wave). Absent: guarding, rebound Neurological exam: Present: alert, oriented X3 Psychiatric exam: Present: normal affect, normal mood Skin exam: Present: dry. Absent: cyanosis, diaphoretic Course Vital Signs 03/23/19 05:21 Temperature 98.2 F Pulse Rate 95 Respiratory 18 Rate Blood Pressure 133/91 O2 Sat by Pulse 97 Oximetry Medical Decision Making - Medical Decision Making 53-year-old female presenting for evaluation of abdominal pain and distention. Patient has liver cirrhosis and ascites as well as chronic abdominal pain. She is distended with focal tenderness in the right upper quadrant. Laboratory studies reveal pancytopenia which is at baseline. She has a white blood cell, 1.9, hemoglobin 10.2 which is stable, platelets of 45 which is stable for this patient. She has a mild elevation in bilirubin at 1.5. She will be admitted for symptom control to her primary care physician Dr. Estrada. - Lab Data Result diagrams: 03/23/19 06:06 03/23/19 06:06 Lab Results 03/23/19 03/23/19 03/23/19 Range/Units 06:06 06:06 06:06 WBC 1.9 L (3.8-10.6) k/uL RBC 3.01 L (3.80-5.40) m/uL Hgb 10.2 L (11.4-16.0) gm/dL Hct 31.6 L (34.0-46.0) % MCV 104.7 H (80.0-100.0) fL MCH 33.9 (25.0-35.0) pg MCHC 32.3 (31.0-37.0) g/dL RDW 14.5 (11.5-15.5) % Plt Count 45 L (150-450) k/uL Neutrophils % 56 % Lymphocytes % 24 % Monocytes % 11 % Eosinophils % 4 % Basophils % 1 % Neutrophils # 1.1 L (1.3-7.7) k/uL Lymphocytes # 0.5 L (1.0-4.8) k/uL Monocytes # 0.2 (0-1.0) k/uL Eosinophils # 0.1 (0-0.7) k/uL Basophils # 0.0 (0-0.2) k/uL Manual Slide Review Performed Macrocytosis Moderate PT 11.7 (9.0-12.0) sec INR 1.1 (<1.2) APTT 29.9 (22.0-30.0) sec Sodium 136 L (137-145) mmol/L Potassium 3.5 (3.5-5.1) mmol/L Chloride 106 (98-107) mmol/L Carbon Dioxide 25 (22-30) mmol/L Anion Gap 5 mmol/L BUN 12 (7-17) mg/dL Creatinine 0.63 (0.52-1.04) mg/dL Est GFR (CKD-EPI)AfAm >90 (>60 ml/min/1.73 sqM) Est GFR (CKD-EPI)NonAf >90 (>60 ml/min/1.73 sqM) Glucose 121 H (74-99) mg/dL Calcium 7.9 L (8.4-10.2) mg/dL Total Bilirubin 1.5 H (0.2-1.3) mg/dL AST 23 (14-36) U/L ALT 10 (4-34) U/L Alkaline Phosphatase 87 (38-126) U/L Ammonia (<30) umol/L Total Protein 6.0 L (6.3-8.2) g/dL Albumin 2.4 L (3.5-5.0) g/dL 03/23/19 Range/Units 06:06 WBC (3.8-10.6) k/uL RBC (3.80-5.40) m/uL Hgb (11.4-16.0) gm/dL Hct (34.0-46.0) % MCV (80.0-100.0) fL MCH (25.0-35.0) pg MCHC (31.0-37.0) g/dL RDW (11.5-15.5) % Plt Count (150-450) k/uL Neutrophils % % Lymphocytes % % Monocytes % % Eosinophils % % Basophils % % Neutrophils # (1.3-7.7) k/uL Lymphocytes # (1.0-4.8) k/uL Monocytes # (0-1.0) k/uL Eosinophils # (0-0.7) k/uL Basophils # (0-0.2) k/uL Manual Slide Review Macrocytosis PT (9.0-12.0) sec INR (<1.2) APTT (22.0-30.0) sec Sodium (137-145) mmol/L Potassium (3.5-5.1) mmol/L Chloride (98-107) mmol/L Carbon Dioxide (22-30) mmol/L Anion Gap mmol/L BUN (7-17) mg/dL Creatinine (0.52-1.04) mg/dL Est GFR (CKD-EPI)AfAm (>60 ml/min/1.73 sqM) Est GFR (CKD-EPI)NonAf (>60 ml/min/1.73 sqM) Glucose (74-99) mg/dL Calcium (8.4-10.2) mg/dL Total Bilirubin (0.2-1.3) mg/dL AST (14-36) U/L ALT (4-34) U/L Alkaline Phosphatase (38-126) U/L Ammonia 51 H (<30) umol/L Total Protein (6.3-8.2) g/dL Albumin (3.5-5.0) g/dL Disposition Clinical Impression: Ascites, Intractable abdominal pain, Cirrhosis, Right upper quadrant pain Disposition: ADMITTED IP TO THIS [facility] Condition: Stable Is patient prescribed a controlled substance at d/c from ED?: No Referrals: Mark Estrada MD [Primary Care Provider] - 1-2 days Decision to Admit Reason: Admit from EC Decision Date: 03/23/19 Decision Time: 06:31
[2019-03-23 06:33] LABS: INR 1.1 (<1.2); Partial Thromboplastin Time 29.9 sec (22.0-30.0); Prothrombin Time 11.7 sec (9.0-12.0)
[2019-03-23 06:36] LABS: Basophils % (A) 1 %; Eosinophils # (A) 0.1 k/uL (0-0.7); Eosinophils % (A) 4 %; HCT 31.6 % (34.0-46.0); HGB 10.2 gm/dL (11.4-16.0); Lymphocytes # (A) 0.5 k/uL (1.0-4.8); Lymphocytes % (A) 24 %; MCH 33.9 pg (25.0-35.0); MCHC 32.3 g/dL (31.0-37.0); MCV 104.7 fL (80.0-100.0); Macrocytosis Moderate; Mean Platelet Volume 10.3; Monocytes # (A) 0.2 k/uL (0-1.0); Monocytes % (A) 11 %; Neutrophils # (A) 1.1 k/uL (1.3-7.7); Neutrophils % (A) 56 %; RBC 3.01 m/uL (3.80-5.40); RDW 14.5 % (11.5-15.5); WBC 1.9 k/uL (3.8-10.6)
[2019-03-23 06:47] LABS: Platelet Count 45 k/uL (150-450)
[2019-03-23] MEDS ORDERED: NALOXONE 0.4 MG/ML 1 ML VIAL IV PRN (07:07)
[2019-03-23] MEDS: HYDROmorphone 0.5 MG/0.5 ML SYRINGE IVP PRN (07:16)
[2019-03-23] MEDS: SODIUM CHLORIDE 0.9% 1,000 ML IV SCH (08:08)
[2019-03-23] MEDS: HYDROmorphone 1 MG/ML 1 ML SYRINGE IVP PRN ×4 (10:47→21:43)
--- NOTE | 2019-03-23 19:49 | HP ---
HISTORY AND PHYSICAL CHIEF COMPLAINT: Abdominal pain. HISTORY OF PRESENT ILLNESS: This is another admission for this 53-year-old white female who has a history of hepatitis C, cirrhosis, advanced COPD and carcinoma of the left breast. She has been doing fairly well of late, but she started to have more and more abdominal pain and abdominal distention with shortness of breath and came to the emergency room. She will require another paracentesis. REVIEW OF SYSTEMS: She has had no neurologic problems, chest pain, hemoptysis, sputum production, orthopnea, PND, etc. She has had no hematemesis, melena, renal failure, diabetes, etc. Past medical history, family history, and personal and social histories are all otherwise unremarkable and unchanged when compared to her recent admitting and discharge summaries. She has already received radiation treatment for the breast. PHYSICAL EXAMINATION: Blood pressure is 104/74 with a pulse of 83, respirations of 39 and she is afebrile. In general she appears to be chronically ill. Skin is pale and dry. Head, ears, eyes, nose, mouth and throat are normal. Neck veins are distended. Chest demonstrates increased AP diameter with extremely poor breath sounds throughout. There are scattered rales. Cardiac exam demonstrates sinus tachycardia. The abdomen is protuberant and firm with ascites. She has generalized abdominal tenderness. Extremities demonstrate poor muscle bulk. Neurologically she is intact. IMPRESSION: 1. Intractable abdominal pain. 2. Hepatitis C. 3. Cirrhosis. 4. Intractable ascites. 5. Carcinoma of the breast. PLAN: 1. Bed rest. 2. IV fluids. 3. Consult with Interventional Radiology for paracentesis. MMODL / IJN: [id number] /
[2019-03-24] MEDS: HYDROmorphone 1 MG/ML 1 ML SYRINGE IVP PRN ×2 (03:30→09:09)
[2019-03-24 05:13] LABS: Glucose,Whole Blood 83 mg/dL (75-99)
[2019-03-24 05:47] LABS: HCT 36.8 % (34.0-46.0); HGB 11.7 gm/dL (11.4-16.0); Hypochromasia Moderate; MCHC 31.9 g/dL (31.0-37.0); Macrocytosis Marked; Mean Platelet Volume 10.4; RBC 3.35 m/uL (3.80-5.40); RDW 14.5 % (11.5-15.5); WBC 8.8 k/uL (3.8-10.6)
[2019-03-24 05:52] LABS: Platelet Count 71 k/uL (150-450)
[2019-03-24 06:07] LABS: Eosinophils # (M) 0.09 k/uL (0-0.7); Lymphocytes # (M) 0.26 k/uL (1.0-4.8); Neutrophils # (M) 7.74 k/uL (1.3-7.7); Neutrophils % (M) 88 %; Nucleated Red Blood Cells 0 /100 WBC (0-0); Total Cells Counted 100
[2019-03-24 06:09] LABS: Large Platelets Present
[2019-03-24] MEDS: SODIUM CHLORIDE 0.9% 1,000 ML IV SCH (08:21)
[2019-03-24 11:38] LABS: Albumin 2.3 g/dL (3.5-5.0); Calcium 7.7 mg/dL (8.4-10.2); Potassium 4.4 mmol/L (3.5-5.1); Total Bilirubin 4.4 mg/dL (0.2-1.3); Total Protein 5.9 g/dL (6.3-8.2)
[2019-03-24] MEDS: LACTATED RINGERS 1,000 ML IV SCH ×2 (11:41→21:25)
[2019-03-24 12:05] LABS: Basophils % (A) 0 %; Eosinophils % (A) 0 %; HCT 33.5 % (34.0-46.0); HGB 10.5 gm/dL (11.4-16.0); Hypochromasia Marked; Lymphocytes % (A) 12 %; MCHC 31.3 g/dL (31.0-37.0); MCV 111.6 fL (80.0-100.0); Macrocytosis Marked; Mean Platelet Volume 10.9; Monocytes # (A) 0.6 k/uL (0-1.0); Monocytes % (A) 8 %; Neutrophils # (A) 6.2 k/uL (1.3-7.7); Neutrophils % (A) 77 %; RDW 14.7 % (11.5-15.5)
[2019-03-24 12:09] LABS: Platelet Count 58 k/uL (150-450)
--- NOTE | 2019-03-24 12:24 | P.CNPUL ---
History of Present Illness Consult date: 03/24/19 Requesting physician: Mark Estrada Reason for consult: other (Critical care management, hypotension) Chief complaint: Generalized abdominal pain and right upper quadrant pain History of present illness: This is a 53-year-old female patient who follows with Dr. Estrada as her primary care physician. She has a history of liver cirrhosis secondary to chronic hepatitis C with stigmata of liver failure with chronic ascites requiring multiple paracentesis in the past. she also has a history of hypertension, pancytopenia, he said that she'll binding, left-sided breast cancer with chemoth erapy and radiation therapy. Right Port-A-Cath placement. She presented to the emergency room yesterday morning with complaints of vague abdominal pain and right upper quadrant pain that had developed and worsened over the previous 4 days. She was scheduled to undergo a paracentesis today however at 10:10 AM this morning and A team was called due to hypotension. She was transferred here to the intensive care unit where consulted for the same. She did have a drop in blood pressure to 64/39 with slight tachycardia at 105, she maintained O2 saturations in the low 90s on room air. she is currently awake and alert in no acute distress. She states she is dizzy when she stands but otherwise at rest in bed she is comfortable. No shortness of breath, cough or congestion. No chest pain or palpitations. white count 8.0. Hemoglobin 10.5. MCV 111.6. INR 1.1. Lactic acid 4.1. Albumin 2.3. AST 39, ALT 12, ammonia level 51. Review of Systems REVIEW OF SYSTEMS: CONSTITUTIONAL: Denies any recent significant weight loss or weight gain. EYES: Denies change in vision. EARS, NOSE, MOUTH, THROAT: Denies headaches, denies sore throat. CARDIOVASCULAR: Denies chest pain, palpitations or syncopal episodes. RESPIRATORY: Denies shortness of breath, cough, congestion or hemoptysis. GASTROINTESTINAL: Increasing abdominal pain and fullness GENITOURINARY: Denies hematuria, denies infections. MUSKULOSKELETAL: Denies pain, denies swelling. INTEGUMENTARY: Denies rash, denies eczema. NEUROLOGICAL: Denies recent memory loss, no recent seizure activity. PSYCHIATRIC: Denies anxiety, denies depression. HEMATOLOGIC/LYMPHATIC: Denies anemia, denies enlarged lymph nodes. Past Medical History Past Medical History: Cancer, COPD, GERD/Reflux, GI Bleed, Hearing Disorder / Deafness, Liver Disease Additional Past Medical History / Comment(s): Hepatitis C, intractable ascities with multiple paracentesis, cirrhosis, peritonitis, pancytopenia, vertigo once; multiple upper GI bleeds, esophageal varicies/esophageal banding, left breast cancer had chemo last on 09-12-16-did not tolerate-completed only 3 cycles-then it was stopped/received radiation treatments/no surgery yet but pt states she is to get a MRI to see if she can have surgery, lt ear deafness, R ear [place]. History of Any Multi-Drug Resistant Organisms: None Reported Past Surgical History: Adenoidectomy, Breast Surgery, Tonsillectomy Additional Past Surgical History / Comment(s): Multiple paracentesises, EGDs, esophageal banding, right chest mediport 08-06-16, l breast bx., Past Anesthesia/Blood Transfusion Reactions: No Reported Reaction Additional Past Anesthesia/Blood Transfusion Reaction / Comment(s): blood transfusions- no reaction Smoking Status: Current every day smoker - Past Family History Mother Family Medical History: Cancer Additional Family Medical History / Comment(s): of lung ca at the age of 59yrs. She was a smoker. Father Family Medical History: Myocardial Infarction ([place]) Additional Family Medical History / Comment(s): from 2nd heart attack at the age of 59yrs. Medications and Allergies Home Medications Medication Instructions Recorded Confirmed Type Morphine Sulfate ER [Ms Contin] 15 mg PO Q12HR 3 Days #6 tab 09/18/18 03/23/19 Rx HYDROcodone/APAP 10-325MG [[place] 1 tab PO Q4H PRN 01/20/19 03/23/19 History 10-325] Allergies Allergy/AdvReac Type Severity Reaction Status Date / Time No Known Allergies Allergy Verified 03/23/19 07:43 Physical Exam Vitals: Vital Signs Temp Pulse Resp BP BP Pulse Ox 03/24/19 10:40 105 H 18 64/39 93 L 03/24/19 10:35 99 20 76/53 92 L 03/24/19 10:30 101 H 22 82/55 93 L 03/24/19 10:25 100 20 77/53 92 L 03/24/19 10:20 103 H 20 81/55 93 L 03/24/19 10:15 107 H 22 76/50 94 L 03/24/19 10:10 110 H 22 83/55 93 L 03/24/19 10:08 98 F 112 H 22 78/53 94 L 03/24/19 09:22 113 H 18 95/53 03/24/19 08:05 82/50 03/24/19 06:19 80/55 03/24/19 06:05 79/52 03/24/19 05:30 96/55 03/24/19 05:20 80/60 03/24/19 05:15 88 L 03/24/19 05:00 76/42 03/23/19 20:56 98.2 F 101 H 18 117/79 92 L Intake and Output 03/23/19 03/24/19 03/24/19 22:59 06:59 14:59 Intake Total 600 Balance 600 Intake: Intake, IV Titration 600 Amount Sodium Chloride 0.9% 1, 600 000 ml @ 20 mls/hr IV . Q24H [facility] Rx#:[id number] Other: Voiding Method Toilet Toilet # Voids 1 1 GENERAL EXAM: Alert, 53-year-old female patient who appears older than her stated age, on room air, comfortable in no apparent distress. HEAD: Normocephalic. EYES: Normal reaction of pupils, equal size. NOSE: Clear with pink turbinates. THROAT: No erythema or exudates. NECK: No masses, no JVD. CHEST: No chest wall deformity. LUNGS: Equal air entry with no crackles, wheeze, rhonchi or dullness. CVS: S1 and S2 normal with no audible murmur, regular rhythm. ABDOMEN: Distended, positive fluid wave, normal bowel sounds, no guarding or rigidity. SPINE: No scoliosis or deformity SKIN: No rashes CENTRAL NERVOUS SYSTEM: No focal deficits, tone is normal in all 4 extremities. EXTREMITIES: There is no peripheral edema. No clubbing, no cyanosis. Peripheral pulses are intact. Results - Laboratory Findings CBC and BMP: 03/24/19 11:02 03/24/19 11:02 PT/INR, D-dimer PT 11.7 sec (9.0-12.0) 03/23/19 06:06 INR 1.1 (<1.2) 03/23/19 06:06 Abnormal lab findings: Abnormal Labs 03/23/19 03/23/19 03/23/19 06:06 06:06 06:06 WBC 1.9 L RBC 3.01 L Hgb 10.2 L Hct 31.6 L MCV 104.7 H Plt Count 45 L Neutrophils # 1.1 L Neutrophils # (Manual) Lymphocytes # 0.5 L Lymphocytes # (Manual) Macrocytosis Sodium 136 L Chloride Carbon Dioxide BUN Creatinine Glucose 121 H Plasma Lactic Acid Darrius Calcium 7.9 L Total Bilirubin 1.5 H AST Ammonia 51 H Total Protein 6.0 L Albumin 2.4 L 03/24/19 03/24/19 03/24/19 05:29 05:29 09:26 WBC RBC 3.35 L Hgb Hct MCV 109.8 H D Plt Count 71 L D Neutrophils # Neutrophils # (Manual) 7.74 H Lymphocytes # Lymphocytes # (Manual) 0.26 L Macrocytosis Marked A Sodium Chloride Carbon Dioxide BUN Creatinine Glucose Plasma Lactic Acid Darrius 3.0 H* 4.1 H* Calcium Total Bilirubin AST Ammonia Total Protein Albumin 03/24/19 03/24/19 11:02 11:02 WBC RBC 3.00 L Hgb 10.5 L Hct 33.5 L MCV 111.6 H Plt Count Neutrophils # Neutrophils # (Manual) Lymphocytes # Lymphocytes # (Manual) Macrocytosis Marked A Sodium Chloride 109 H Carbon Dioxide 20 L BUN 18 H Creatinine 1.18 H Glucose 110 H Plasma Lactic Acid Darrius Calcium 7.7 L Total Bilirubin 4.4 H AST 39 H Ammonia Total Protein 5.9 L Albumin 2.3 L - Diagnostic Findings Chest x-ray: image reviewed Assessment and Plan Assessment: 1 Hypotension secondary to fluid volume shift with abdominal distention and ascites secondary to cirrhosis. 2 Cirrhosis secondary to hepatitis C 3 History of multiple paracentesis last one in June 2018 was 7.4 L removed 4 Hypoproteinemia and albuminemia 5 History of upper GI bleed secondary to portal hypertension with esophageal varicesit is post banding 6 Chronic anemia 7 Acid reflux 8 History of hypertension 9 History of left-sided breast cancer status post chemo/radiation 10 Chronic and ongoing tobacco dependence 11 History of spontaneous bacterial peritonitis with acute sepsis in 2018 Plan: The patient was seen and evaluated by Dr. Gerard. Chest x-ray and labs reviewed. We will add albumin. Continue with IV fluids. Would benefit from a sample of the peritoneal fluid to rule out bacterial peritonitis. Initiate ceftriaxone. We will continue to follow her closely here in the intensive care unit. Monitor ammonia levels. Currently 51. We will continue to follow and make further recommendations based on her clinical status. I, the cosigning physician, performed a history & physical examination of the patient. Lungs sounds are clear. Maintaining good O2 saturations in the 90s on 2 L/m per nasal cannula. I discussed the assessment and plan of care with my nurse practitioner, Beena Anderson. I attest to the above note as dictated by her. Time with Patient: Greater than 30
[2019-03-24 12:50] LABS: Poikilocytosis (M) Present
[2019-03-24] MEDS: ALBUMIN HUMAN 25% 50 ML in EMPTY BAG 1 BAG IVPB SCH (12:54)
[2019-03-24] MEDS ORDERED: ALBUMIN HUMAN 5% 250 ML in EMPTY BAG 1 BAG IVPB ONE (13:00)
--- NOTE | 2019-03-24 13:00 | XR ---
EXAMINATION TYPE: XR chest 1V portable DATE OF EXAM: 03/24/2019 COMPARISON: 09/14/2018 HISTORY: Hypotension and sepsis. Chest pain. TECHNIQUE: Single frontal view of the chest is obtained. FINDINGS: There are low lung volumes. Right-sided Mediport is seen. No focal consolidation, pleural effusion or pneumothorax. Cardia mediastinal silhouette is upper limits of normal. No acute osseous p athology. IMPRESSION: Hypoventilatory lungs. No acute process.
[2019-03-24] MEDS: HYDROcodone/APAP 10-325MG 1 EACH TAB PO PRN (14:16)
[2019-03-24 14:45] LABS: Amylase <30 U/L (30-110)
[2019-03-24 14:54] LABS: Ammonia <9 umol/L (<30)
[2019-03-24 15:09] LABS: Lactic Acid, Venous 3.9 mmol/L (0.7-2.0)
--- NOTE | 2019-03-24 16:04 | PN ---
PROGRESS NOTE CHIEF COMPLAINT: Abdominal pain, cirrhosis, hepatitis, ascites. HISTORY OF PRESENT ILLNESS: This lady is still having quite a bit of discomfort from her ascites. She was to go down for paracentesis, but her blood pressure dropped down into the 80s and even 70s. She is not having any chest pain, neurologic deficits, etc. PHYSICAL EXAMINATION: She remains chronically ill in appearance. Chest demonstrates scattered rales. The cardiac exam demonstrates tachycardia with no murmurs or extra sounds. The abdomen is firmly distended with ascites and she has generalized tenderness throughout. There is no rebound. Bowel sounds are present. Extremities are normal. IMPRESSION: 1. Hepatitis C with advanced cirrhosis and intractable ascites. 2. Dehydration. 3. Hypotension. PLAN: 1. Cancel paracentesis. 2. Increase IV fluids. 3. Appropriate blood work and blood cultures. 4. Transfer to ICU. KAUSHIK / KAREEM: [id number] /
[2019-03-24] MEDS: NOREPINEPHRINE 4 MG in SODIUM CHLORIDE 0.9% 250 ML IV SCH (18:49)
--- NOTE | 2019-03-24 21:24 | P.CONS ---
History of Present Illness - Reason for Consult Consult date: 03/24/19 - Chief Complaint abdominal pain - History of Present Illness This is a 53-year-old female who has multiple medical troubles that includes her triple negative breast carcinoma and her chronic active hepatitis C with cirrhosis and chronic refractory ascites that has required multiple adm issions and multiple paracentesis. She has beem treated with Epculusa for her hepatitis C. She continues to have cirrhosis with her significant and refractory ascites that has required multiple paracentesis and is up to every other week paracentesis. Is noted she's had multiple hospitalizations, since April she however has not had evidence of significant peritonitis. However she now is admitted with marked increase of her abdominal pain, and alteration of her functional status and hypotension. She comes was brought in intensive care unit. There are plans for a paracentesis but she had significant hypotension and this is been delayed until her blood pressure improves. Is complaining of severe pain but had worsening of her hypotension after a dose of Dilaudid and is receiving no further pain medication. Is noted admission that she had significant leukopenia which is starting to improve since her admission fluids and antibiotic therapy. The patient relates that she is really quite miserable but does not seem to be considerably worse than on some days. But does relate over the last 5 days her abdominal distention has worsened as has her pain. She is not taking any SBP prophylaxis. Review of Systems Constitutional: Reports anorexia, Reports fatigue, Reports lethargy, Reports poor appetite, Reports weakness, Denies chills, Denies fever Eyes: denies blurred vision, denies pain Ears, nose, mouth and throat: Denies dental pain, Denies headache, Denies mouth pain, Denies sore throat, Denies vertigo Cardiovascular: Denies chest pain, Denies dyspnea on exertion, Denies edema, Denies leg edema, Denies lightheadedness, Denies shortness of breath, Denies syncope Respiratory: Denies cough, Denies cough with sputum, Denies dyspnea, Denies excessive sputum, Denies hemoptysis, Denies home oxygen, Denies wheezing Gastrointestinal: Reports abdominal pain, Reports bloating, Reports loss of appetite, Reports nausea, Denies constipation, Denies diarrhea, Denies melena, Denies vomiting or hematemesis Genitourinary: Denies dysuria, Denies hematuria Musculoskeletal: Denies myalgias Integumentary: Denies pruritus, Denies rash Neurological: Denies aphasia, Denies change in mentation, Denies confusion, Denies convulsions, Denies numbness, Denies seizures, Denies weakness Psychiatric:chronic anxiety and depression Endocrine: chronic severe fatigue and has noticed weight gain with her increasing ascites Past Medical History Past Medical History: Cancer, COPD, GERD/Reflux, GI Bleed, Hearing Disorder / Deafness, Liver Disease Additional Past Medical History / Comment(s): Hepatitis C, intractable ascities with multiple paracentesis, cirrhosis, peritonitis, pancytopenia, vertigo once; multiple upper GI bleeds, esophageal varicies/esophageal banding, left breast cancer had chemo last on 09-12-16-did not tolerate-completed only 3 cycles-then it was stopped/received radiation treatments/no surgery yet but pt states she is to get a MRI to see if she can have surgery, lt ear deafness, R ear [place]. History of Any Multi-Drug Resistant Organisms: None Reported Past Surgical History: Adenoidectomy, Breast Surgery, Tonsillectomy Additional Past Surgical History / Comment(s): Multiple paracentesises, EGDs, esophageal banding, right chest mediport 08-06-16, l breast bx., Past Anesthesia/Blood Transfusion Reactions: No Reported Reaction Additional Past Anesthesia/Blood Transfusion Reaction / Comm: blood transfusions- no reaction Additional Psychological History / Comment(s): Patient started smoking at age 13/2 a pack a day and cut back to one to 3 cigarettes per day no history of alcohol abuse. Patient lives with her son. She is currently on disability. Smoking Status: Current every day smoker - Past Family History Mother Family Medical History: Cancer Additional Family Medical History / Comment(s): of lung ca at the age of 59yrs. She was a smoker. Father Family Medical History: Myocardial Infarction (CT) Additional Family Medical History / Comment(s): from 2nd heart attack at the age of 59yrs. Medications and Allergies Home Medications and Allergies Comment(s): Current Medications Hydrocodone Bitart/Acetaminophen ([place] 10) 1 each PO Q6H PRN PRN Reason: Pain Last Admin: 03/24/19 14:16 Dose: 1 each Documented by: Hydromorphone HCl (Dilaudid) 0.5 mg IVP Q3HR PRN PRN Reason: Moderate Pain Last Admin: 03/23/19 07:16 Dose: 0.5 mg Documented by: Hydromorphone HCl (Dilaudid) 1 mg IVP Q3HR PRN PRN Reason: Severe Pain Last Admin: 03/24/19 09:09 Dose: 1 mg Documented by: Lactated Ringer's (Lactated Ringers) 1,000 mls @ 100 mls/hr IV .Q10H [facility] Last Admin: 03/24/19 11:41 Dose: 100 mls/hr Documented by: Ceftriaxone Sodium 1 gm/ (Sodium Chloride) 50 mls @ 100 mls/hr IVPB Q24HR [facility] Last Admin: 03/24/19 14:18 Dose: 100 mls/hr Documented by: Norepinephrine Bitartrate 4 mg (/ Sodium Chloride) 254 mls @ 13.653 mls/hr IV .[id number] [facility]; Protocol Last Admin: 03/24/19 18:49 Dose: 0.05 mcg/kg/min, 13.653 mls/hr Documented by: Naloxone HCl (Narcan) 0.2 mg IV Q2M PRN PRN Reason: Opioid Reversal Home Medications Medication Instructions Recorded Confirmed Type Morphine Sulfate ER [Ms Contin] 15 mg PO Q12HR 3 Days #6 tab 09/18/18 03/23/19 Rx HYDROcodone/APAP 10-325MG [[place] 1 tab PO Q4H PRN 01/20/19 03/23/19 History 10-325] Allergies Allergy/AdvReac Type Severity Reaction Status Date / Time No Known Allergies Allergy Verified 03/23/19 07:43 Physical Exam Vitals: Vital Signs Temp Pulse Pulse Resp BP BP BP 03/24/19 21:00 90 15 95/64 03/24/19 20:45 87 15 95/56 03/24/19 20:30 89 14 91/64 03/24/19 20:15 88 18 104/67 03/24/19 20:00 87 15 88/63 03/24/19 19:45 87 24 86/55 03/24/19 19:30 86 18 92/39 03/24/19 19:15 90 14 89/62 03/24/19 19:00 88 19 82/51 03/24/19 18:45 93 17 85/51 03/24/19 18:30 94 16 90/48 03/24/19 18:00 91 18 98/58 03/24/19 17:15 92 15 89/59 03/24/19 17:00 98 15 85/62 03/24/19 16:45 93 13 84/60 03/24/19 16:30 92 16 79/57 03/24/19 16:15 91 14 81/52 03/24/19 16:00 89 13 85/52 03/24/19 15:45 91 15 80/52 03/24/19 15:30 90 13 95/55 03/24/19 15:15 90 19 87/49 03/24/19 15:00 89 15 83/53 03/24/19 14:45 93 14 83/53 03/24/19 14:30 92 19 81/51 03/24/19 14:15 92 20 81/55 03/24/19 14:00 92 21 88/53 03/24/19 13:45 92 12 83/45 03/24/19 13:30 92 23 92/56 03/24/19 13:15 93 25 H 79/51 03/24/19 13:00 93 26 H 92/62 03/24/19 12:45 97 24 79/50 03/24/19 12:30 96 25 H 72/42 03/24/19 12:15 97.5 F L 98 25 H 84/51 03/24/19 10:40 105 H 18 64/39 03/24/19 10:35 99 20 76/53 03/24/19 10:30 101 H 22 82/55 03/24/19 10:25 100 20 77/53 03/24/19 10:20 103 H 20 81/55 03/24/19 10:15 107 H 22 76/50 03/24/19 10:10 110 H 22 83/55 03/24/19 10:08 98 F 112 H 22 78/53 03/24/19 09:22 113 H 18 95/53 03/24/19 08:05 82/50 03/24/19 06:19 80/55 03/24/19 06:05 79/52 03/24/19 05:30 96/55 03/24/19 05:20 80/60 03/24/19 05:15 03/24/19 05:00 76/42 Pulse Ox 03/24/19 21:00 94 L 12/19/19 20:45 94 L 03/24/19 20:30 96 03/24/19 20:15 95 03/24/19 20:00 95 03/24/19 19:45 95 03/24/19 19:30 94 L 03/24/19 19:15 92 L 03/24/19 19:00 95 03/24/19 18:45 93 L 03/24/19 18:30 91 L 03/24/19 18:00 97 03/24/19 17:15 97 03/24/19 17:00 97 03/24/19 16:45 97 03/24/19 16:30 98 03/24/19 16:15 96 03/24/19 16:00 99 03/24/19 15:45 97 03/24/19 15:30 98 03/24/19 15:15 98 03/24/19 15:00 98 03/24/19 14:45 98 03/24/19 14:30 98 03/24/19 14:15 98 03/24/19 14:00 100 03/24/19 13:45 98 03/24/19 13:30 98 03/24/19 13:15 90 L 03/24/19 13:00 99 03/24/19 12:45 100 03/24/19 12:30 97 03/24/19 12:15 94 L 03/24/19 10:40 93 L 03/24/19 10:35 92 L 03/24/19 10:30 93 L 03/24/19 10:25 92 L 03/24/19 10:20 93 L 03/24/19 10:15 94 L 03/24/19 10:10 93 L 03/24/19 10:08 94 L 03/24/19 09:22 03/24/19 08:05 03/24/19 06:19 03/24/19 06:05 03/24/19 05:30 03/24/19 05:20 03/24/19 05:15 88 L 03/24/19 05:00 Intake and Output 03/24/19 03/24/19 03/24/19 06:59 14:59 22:59 Intake Total 600 500 700 Output Total 50 Balance 600 500 650 Intake: IV 500 700 Albumin Human 5% 250 ml 250 In Empty Bag 1 bag @ 250 mls/hr IVPB ONCE ONE Rx#: [id number] Lactated Ringers 1,000 ml 200 700 @ 100 mls/hr IV .Q10H [facility] Rx#:[id number] cefTRIAXone 1 gm In 50 Sodium Chloride 0.9% 50 ml @ 100 mls/hr IVPB Q24HR [facility] Rx#:[id number] Intake, IV Titration 600 Amount Sodium Chloride 0.9% 1, 600 000 ml @ 20 mls/hr IV . Q24H [facility] Rx#:[id number] Output: Urine 50 Other: Voiding Method Toilet Toilet # Voids 1 0 0 # Bowel Movements 1 Weight 71.668 kg patient is mildly jaundiced does complain of pain seems to be less agitated with the observer them with the nursing staff HEENT: mildly icteric ,conjunctiva are pink and moist nasal mucosa grossly intact without significant lesions, there is no thrush. Neck: The neck is supple without significant lymphadenopathy or thyromegaly. Lungs:symmetrical air entry, expiratory wheezes are heard a few crackles at the bases Heart: Regular rate and rhythm with an audible S1-S2, no S3 soft S4 2/6 systolic murmur left sternal border is noted Abdomen: patient has palpable ascites with distinct distention of her abdomen with distinct tenderness especially over the lower quadrants. Organomegaly could not be palpated. The abdomen is very tender to touch. Extremities: The upper extremities have excellent pulses they are symmetric, no significant petechiae or telangiectasia. No splinter hemorrhages were noted. lower extremities no evidence of the bilateral lower extremity edema, no open ulcerations petechia or vesicles are seen Neuro: Awake alert oriented to person place and time. There are no acute new gross focal sensory motor deficits. Results CBC & Chem 7: 03/24/19 11:02 03/24/19 11:02 Labs: Abnormal Lab Results - Last 24 Hours (Table) 03/24/19 03/24/19 03/24/19 Range/Units 05:29 05:29 09:26 RBC 3.35 L (3.80-5.40) m/uL Hgb (11.4-16.0) gm/dL Hct (34.0-46.0) % MCV 109.8 H D (80.0-100.0) fL Plt Count 71 L D (150-450) k/uL Neutrophils # (Manual) 7.74 H (1.3-7.7) k/uL Lymphocytes # (Manual) 0.26 L (1.0-4.8) k/uL Macrocytosis Marked A Chloride (98-107) mmol/L Carbon Dioxide (22-30) mmol/L BUN (7-17) mg/dL Creatinine (0.52-1.04) mg/dL Glucose (74-99) mg/dL Plasma Lactic Acid Darrius 3.0 H* 4.1 H* (0.7-2.0) mmol/L Calcium (8.4-10.2) mg/dL Total Bilirubin (0.2-1.3) mg/dL AST (14-36) U/L Total Protein (6.3-8.2) g/dL Albumin (3.5-5.0) g/dL Amylase (30-110) U/L 03/24/19 03/24/19 03/24/19 Range/Units 11:02 11:02 11:02 RBC 3.00 L (3.80-5.40) m/uL Hgb 10.5 L (11.4-16.0) gm/dL Hct 33.5 L (34.0-46.0) % MCV 111.6 H (80.0-100.0) fL Plt Count 58 L (150-450) k/uL Neutrophils # (Manual) (1.3-7.7) k/uL Lymphocytes # (Manual) (1.0-4.8) k/uL Macrocytosis Marked A Chloride 109 H (98-107) mmol/L Carbon Dioxide 20 L (22-30) mmol/L BUN 18 H (7-17) mg/dL Creatinine 1.18 H (0.52-1.04) mg/dL Glucose 110 H (74-99) mg/dL Plasma Lactic Acid Darrius (0.7-2.0) mmol/L Calcium 7.7 L (8.4-10.2) mg/dL Total Bilirubin 4.4 H (0.2-1.3) mg/dL AST 39 H (14-36) U/L Total Protein 5.9 L (6.3-8.2) g/dL Albumin 2.3 L (3.5-5.0) g/dL Amylase <30 L (30-110) U/L 03/24/19 03/24/19 Range/Units 14:18 18:32 RBC (3.80-5.40) m/uL Hgb (11.4-16.0) gm/dL Hct (34.0-46.0) % MCV (80.0-100.0) fL Plt Count (150-450) k/uL Neutrophils # (Manual) (1.3-7.7) k/uL Lymphocytes # (Manual) (1.0-4.8) k/uL Macrocytosis Chloride (98-107) mmol/L Carbon Dioxide (22-30) mmol/L BUN (7-17) mg/dL Creatinine (0.52-1.04) mg/dL Glucose (74-99) mg/dL Plasma Lactic Acid Darrius 3.9 H* 2.5 H* (0.7-2.0) mmol/L Calcium (8.4-10.2) mg/dL Total Bilirubin (0.2-1.3) mg/dL AST (14-36) U/L Total Protein (6.3-8.2) g/dL Albumin (3.5-5.0) g/dL Amylase (30-110) U/L Laboratory Results WBC 8.0 k/uL (3.8-10.6) 03/24/19 11:02 RBC 3.00 m/uL (3.80-5.40) L 03/24/19 11:02 Hgb 10.5 gm/dL (11.4-16.0) L 03/24/19 11:02 Hct 33.5 % (34.0-46.0) L 03/24/19 11:02 MCV 111.6 fL (80.0-100.0) H 03/24/19 11:02 MCH 35.0 pg (25.0-35.0) 03/24/19 11:02 MCHC 31.3 g/dL (31.0-37.0) 03/24/19 11:02 RDW 14.7 % (11.5-15.5) 03/24/19 11:02 Plt Count 58 k/uL (150-450) L 03/24/19 11:02 Neutrophils % 77 % 03/24/19 11:02 Neutrophils % (Manual) 88 % 03/24/19 05:29 Lymphocytes % 12 % 03/24/19 11:02 Lymphocytes % (Manual) 3 % 03/24/19 05:29 Monocytes % 8 % 03/24/19 11:02 Monocytes % (Manual) 8 % 03/24/19 05:29 Eosinophils % 0 % 03/24/19 11:02 Eosinophils % (Manual) 1 % 03/24/19 05:29 Basophils % 0 % 03/24/19 11:02 Neutrophils # 6.2 k/uL (1.3-7.7) 03/24/19 11:02 Neutrophils # (Manual) 7.74 k/uL (1.3-7.7) H 03/24/19 05:29 Lymphocytes # 1.0 k/uL (1.0-4.8) 03/24/19 11:02 Lymphocytes # (Manual) 0.26 k/uL (1.0-4.8) L 03/24/19 05:29 Monocytes # 0.6 k/uL (0-1.0) 03/24/19 11:02 Monocytes # (Manual) 0.70 k/uL (0-1.0) 03/24/19 05:29 Eosinophils # 0.0 k/uL (0-0.7) 03/24/19 11:02 Eosinophils # (Manual) 0.09 k/uL (0-0.7) 03/24/19 05:29 Basophils # 0.0 k/uL (0-0.2) 03/24/19 11:02 Nucleated RBCs 0 /100 WBC (0-0) 03/24/19 05:29 Manual Slide Review Performed 03/24/19 11:02 Large Platelets Present 03/24/19 05:29 Hypochromasia Marked 03/24/19 11:02 Poikilocytosis (manual Present 03/24/19 11:02 Macrocytosis Marked A 03/24/19 11:02 PT 11.7 sec (9.0-12.0) 03/23/19 06:06 INR 1.1 (<1.2) 03/23/19 06:06 APTT 29.9 sec (22.0-30.0) 03/23/19 06:06 Sodium 138 mmol/L (137-145) 03/24/19 11:02 Potassium 4.4 mmol/L (3.5-5.1) 03/24/19 11:02 Chloride 109 mmol/L (98-107) H 03/24/19 11:02 Carbon Dioxide 20 mmol/L (22-30) L 03/24/19 11:02 Anion Gap 9 mmol/L 03/24/19 11:02 BUN 18 mg/dL (7-17) H 03/24/19 11:02 Creatinine 1.18 mg/dL (0.52-1.04) H 03/24/19 11:02 Est GFR (CKD-EPI)AfAm 61 (>60 ml/min/1.73 sqM) 03/24/19 11:02 Est GFR (CKD-EPI)NonAf 53 (>60 ml/min/1.73 sqM) 03/24/19 11:02 Glucose 110 mg/dL (74-99) H 03/24/19 11:02 POC Glucose (mg/dL) 83 mg/dL (75-99) 03/24/19 05:12 POC Glu Support Architect ID Perri De La Fuente 03/24/19 05:12 Lactic Ac Sepsis Rflx Y 03/24/19 15:09 Plasma Lactic Acid Darrius 2.5 mmol/L (0.7-2.0) H* 03/24/19 18:32 Calcium 7.7 mg/dL (8.4-10.2) L 03/24/19 11:02 Total Bilirubin 4.4 mg/dL (0.2-1.3) H 03/24/19 11:02 AST 39 U/L (14-36) H 03/24/19 11:02 ALT 12 U/L (4-34) 03/24/19 11:02 Alkaline Phosphatase 61 U/L (38-126) 03/24/19 11:02 Ammonia <9 umol/L (<30) 03/24/19 14:18 Total Protein 5.9 g/dL (6.3-8.2) L 03/24/19 11:02 Albumin 2.3 g/dL (3.5-5.0) L 03/24/19 11:02 Amylase <30 U/L (30-110) L 03/24/19 11:02 Lipase 37 U/L (23-300) 03/24/19 11:02 Assessment and Plan (1) Ascites Narrative/Plan: 53-year-old female who has a history of hepatitis C status post treatment however has significant cirrhosis of the liver with ongoing ascites and complications and symptoms related to that. She presents to Hospital feeling very poorly with progressive amount of abdominal pain and weakness over 5 days. It admission shows evidence of extensive ascites but has developed hypotension it was moved to the intensive care unit for further treatment. When more stable a paracentesis is planned. They will be helpful to evaluate the fluid to evaluate for the possibility of spontaneous bacterial peritonitis. While that is pending antibiotic therapy has been started with Rocephin which is an appropriate choice for this particular problem. The patient did have significant leukopenia upon admission but now with supportive care and antibiotic therapy she has now normalized her white blood cell count. Pain control is an issue at this time given her significant hypotension compared to her many recent admissions her blood pressure is quite low nursing staff is working to try to improve this at this time. If her blood pressure improves that she would be able to have some more narcotic pain medication at that time. The patient's bilirubin has increased considerably compared to last evaluation, likely on the basis of her current decompensated liver disease and potentially from underlying spontaneous bacterial peritonitis. The significant elevated lactic acid is is likely is not coming from spontaneous bacterial peritonitis as it is from her decompensated liver disease. Current Visit: Yes Status: Acute Code(s): R18.8 - OTHER ASCITES SNOMED Code(s): 210899441 (2) Cirrhosis of liver Current Visit: Yes Status: Acute Code(s): K74.60 - UNSPECIFIED CIRRHOSIS OF LIVER SNOMED Code(s): 00053117 (3) Hypotension Current Visit: Yes Status: Acute Code(s): I95.9 - HYPOTENSION, UNSPECIFIED SNOMED Code(s): 33911195 (4) Abdominal pain Current Visit: No Status: Acute Code(s): R10.9 - UNSPECIFIED ABDOMINAL PAIN SNOMED Code(s): 80219157
--- NOTE | 2019-03-24 22:01 | P.CONS ---
History of Present Illness - Reason for Consult Consult date: 03/24/19 Decompensated cirrhosis Requesting physician: Mark Estrada - Chief Complaint Abdominal distention, fatigue - History of Present Illness 53-year-old female with multiple medical comorbidities including triple negative breast carcinoma, decompensated cirrhosis ascites, hypertension, pancytopenia and prior esophageal varices who presented to the hospital due to complaints of abdominal pain, abdominal distention and weakness. Of note history is been taken on review of the medical record as well as in discussion with the patient. She has a prior history of hepatitis C treated with antiviral therapy. She has a known history of esophageal varices with last EGD on 04/2016 at which time obliterated distal esophageal varices were noted. She has also had multiple hospitalizations for treatment of refractory ascites. On current hospitalization the patient has complained of abdominal pain and distention with associated weakness. She was found to be hypotensive on the floor and transferred to the intensive care unit. Currently she is receiving antibiotic t herapy for suspected SBP. Review of Systems REVIEW OF SYSTEMS: CONSTITUTIONAL: Patient is reporting weakness and fatigue and with no fevers reported. CARDIOVASCULAR: Denies any chest pain, palpitations high blood pressures but was hypotensive on the medical floor. RESPIRATORY: Denies any shortness of breath, hemoptysis or cough. GENITOURINARY: No dysuria or hematuria. MUSCULOSKELETAL: No focal weakness reported. SKIN: Denies any new rashes or lesions, jaundice or pallor. PSYCHIATRIC: Denies any depression or anxiety. NEUROLOGY: Denies headache, denies any new focal deficits. EARS/NOSE/THROAT: No recent hearing change, congestion, nasal discharge or sore throat. EYES: No pain in eyes, discharge or change in vision. GASTROINTESTINAL: As per HPI. Past Medical History Past Medical History: Cancer, COPD, GERD/Reflux, GI Bleed, Hearing Disorder / Deafness, Liver Disease Additional Past Medical History / Comment(s): Hepatitis C, intractable ascities with multiple paracentesis, cirrhosis, peritonitis, pancytopenia, vertigo once; multiple upper GI bleeds, esophageal varicies/esophageal banding, left breast cancer had chemo last on 09-12-16-did not tolerate-completed only 3 cycles-then it was stopped/received radiation treatments/no surgery yet but pt states she is to get a MRI to see if she can have surgery, lt ear deafness, R ear KIANA. History of Any Multi-Drug Resistant Organisms: None Reported Past Surgical History: Adenoidectomy, Breast Surgery, Tonsillectomy Additional Past Surgical History / Comment(s): Multiple paracentesises, EGDs, esophageal banding, right chest mediport 08-06-16, l breast bx., Past Anesthesia/Blood Transfusion Reactions: No Reported Reaction Additional Past Anesthesia/Blood Transfusion Reaction / Comm: blood transfusions- no reaction Smoking Status: Current every day smoker - Past Family History Mother Family Medical History: Cancer Additional Family Medical History / Comment(s): of lung ca at the age of 59yrs. She was a smoker. Father Family Medical History: Myocardial Infarction ([place]) Additional Family Medical History / Comment(s): from 2nd heart attack at the age of 59yrs. Medications and Allergies Home Medications Medication Instructions Recorded Confirmed Type Morphine Sulfate ER [Ms Contin] 15 mg PO Q12HR 3 Days #6 tab 09/18/18 03/23/19 Rx HYDROcodone/APAP 10-325MG [Concho 1 tab PO Q4H PRN 01/20/19 03/23/19 History 10-325] Allergies Allergy/AdvReac Type Severity Reaction Status Date / Time No Known Allergies Allergy Verified 03/23/19 07:43 Physical Exam Vitals: Vital Signs Temp Pulse Pulse Resp BP BP BP 03/24/19 14:15 92 20 81/55 03/24/19 14:00 92 21 88/53 03/24/19 13:45 92 12 83/45 03/24/19 13:30 92 23 92/56 03/24/19 13:15 93 25 H 79/51 03/24/19 13:00 93 26 H 92/62 03/24/19 12:45 97 24 79/50 03/24/19 12:30 96 25 H 72/42 03/24/19 12:15 97.5 F L 98 25 H 84/51 03/24/19 10:40 105 H 18 64/39 03/24/19 10:35 99 20 76/53 03/24/19 10:30 101 H 22 82/55 03/24/19 10:25 100 20 77/53 03/24/19 10:20 103 H 20 81/55 03/24/19 10:15 107 H 22 76/50 03/24/19 10:10 110 H 22 83/55 03/24/19 10:08 98 F 112 H 22 78/53 03/24/19 09:22 113 H 18 95/53 03/24/19 08:05 82/50 03/24/19 06:19 80/55 03/24/19 06:05 79/52 03/24/19 05:30 96/55 03/24/19 05:20 80/60 03/24/19 05:15 03/24/19 05:00 76/42 03/23/19 20:56 98.2 F 101 H 18 117/79 Pulse Ox 03/24/19 14:15 98 03/24/19 14:00 100 03/24/19 13:45 98 03/24/19 13:30 98 03/24/19 13:15 90 L 03/24/19 13:00 99 03/24/19 12:45 100 03/24/19 12:30 97 03/24/19 12:15 94 L 03/24/19 10:40 93 L 03/24/19 10:35 92 L 03/24/19 10:30 93 L 03/24/19 10:25 92 L 03/24/19 10:20 93 L 03/24/19 10:15 94 L 03/24/19 10:10 93 L 03/24/19 10:08 94 L 03/24/19 09:22 03/24/19 08:05 03/24/19 06:19 03/24/19 06:05 03/24/19 05:30 03/24/19 05:20 03/24/19 05:15 88 L 03/24/19 05:00 03/23/19 20:56 92 L Intake and Output 03/23/19 03/24/19 03/24/19 22:59 06:59 14:59 Intake Total 600 500 Balance 600 500 Intake: IV 500 Albumin Human 5% 250 ml 250 In Empty Bag 1 bag @ 250 mls/hr IVPB ONCE ONE Rx#: [id number] Lactated Ringers 1,000 ml 200 @ 100 mls/hr IV .Q10H [facility] Rx#:[id number] cefTRIAXone 1 gm In 50 Sodium Chloride 0.9% 50 ml @ 100 mls/hr IVPB Q24HR [facility] Rx#:[id number] Intake, IV Titration 600 Amount Sodium Chloride 0.9% 1, 600 000 ml @ 20 mls/hr IV . Q24H [facility] Rx#:[id number] Other: Voiding Method Toilet Toilet # Voids 1 1 0 Weight 71.668 kg On physical examination, patient appears comfortable in no apparent distress. HEAD: Normocephalic, atraumatic. EYES: No scleral icterus. No conjunctival injection. MOUTH: No lesions, tongue midline. NECK: Trachea midline, no gross abnormalities. CHEST: Decreased air entry in all lung barrera with no wheezing appreciated. HEART: S1-S2 appreciated with no murmurs appreciated. ABDOMEN: Soft, diffusely tender and distended with positive fluid with. Bowel sounds are positive. No organomegaly. No guarding or rigidity. EXTREMITIES: Bilateral pedal edema. SKIN: No rashes, no jaundice. NEUROLOGIC: Alert and oriented x3. Results CBC & Chem 7: 03/24/19 11:02 03/24/19 11:02 Labs: Abnormal Lab Results - Last 24 Hours (Table) 03/24/19 03/24/19 03/24/19 Range/Units 05:29 05:29 09:26 RBC 3.35 L (3.80-5.40) m/uL Hgb (11.4-16.0) gm/dL Hct (34.0-46.0) % MCV 109.8 H D (80.0-100.0) fL Plt Count 71 L D (150-450) k/uL Neutrophils # (Manual) 7.74 H (1.3-7.7) k/uL Lymphocytes # (Manual) 0.26 L (1.0-4.8) k/uL Macrocytosis Marked A Chloride (98-107) mmol/L Carbon Dioxide (22-30) mmol/L BUN (7-17) mg/dL Creatinine (0.52-1.04) mg/dL Glucose (74-99) mg/dL Plasma Lactic Acid Darrius 3.0 H* 4.1 H* (0.7-2.0) mmol/L Calcium (8.4-10.2) mg/dL Total Bilirubin (0.2-1.3) mg/dL AST (14-36) U/L Total Protein (6.3-8.2) g/dL Albumin (3.5-5.0) g/dL 03/24/19 03/24/19 Range/Units 11:02 11:02 RBC 3.00 L (3.80-5.40) m/uL Hgb 10.5 L (11.4-16.0) gm/dL Hct 33.5 L (34.0-46.0) % MCV 111.6 H (80.0-100.0) fL Plt Count 58 L (150-450) k/uL Neutrophils # (Manual) (1.3-7.7) k/uL Lymphocytes # (Manual) (1.0-4.8) k/uL Macrocytosis Marked A Chloride 109 H (98-107) mmol/L Carbon Dioxide 20 L (22-30) mmol/L BUN 18 H (7-17) mg/dL Creatinine 1.18 H (0.52-1.04) mg/dL Glucose 110 H (74-99) mg/dL Plasma Lactic Acid Darrius (0.7-2.0) mmol/L Calcium 7.7 L (8.4-10.2) mg/dL Total Bilirubin 4.4 H (0.2-1.3) mg/dL AST 39 H (14-36) U/L Total Protein 5.9 L (6.3-8.2) g/dL Albumin 2.3 L (3.5-5.0) g/dL Chest x-ray: report reviewed (Hypoventilatory lungs on chest x-ray) Assessment and Plan (1) Ascites Narrative/Plan: 53-year-old female with a known history of decompensated cirrhosis secondary to hepatitis C previously treated with antiviral therapy and known history of ascites and prior esophageal varices status post banding with last EGD in 04/2016 who presented with complaints of abdominal distention, pain and weakness. Patient was scheduled for paracentesis and was sent to the ICU due to concerns over hypotension. Concern at this time is for possible spontaneous bacterial peritonitis for which patient is currently receiving antibiotic therapy. Current Visit: Yes Status: Acute Code(s): R18.8 - OTHER ASCITES SNOMED Code(s): 973140914 (2) Cirrhosis of liver Current Visit: Yes Status: Acute Code(s): K74.60 - UNSPECIFIED CIRRHOSIS OF LIVER SNOMED Code(s): 46184290 (3) Abdominal pain Current Visit: No Status: Acute Code(s): R10.9 - UNSPECIFIED ABDOMINAL PAIN SNOMED Code(s): 39150399 (4) Hepatitis C virus infection without hepatic coma Current Visit: No Status: Acute Code(s): B19.20 - UNSPECIFIED VIRAL HEPATITIS C WITHOUT HEPATIC COMA SNOMED Code(s): 82802827 (5) History of esophageal varices with bleeding Current Visit: No Status: Acute Code(s): Z87.19 - PERSONAL HISTORY OF OTHER DISEASES OF THE DIGESTIVE SYSTEM SNOMED Code(s): 344917629 Plan: Supportive care Okay for sodium restricted diet Paracentesis pending, fluid studies ordered Continue ceftriaxone for treatment of suspected SBP Appreciate recommendations from agile scrum coach and infectious disease services Continue to monitor CBC, CMP Protonix 40 mg daily added Going forward, patient may benefit from antibiotic therapy for SBP prophylaxis Thank you for allowing us to participate in the care of the patient we will continue to follow
[2019-03-24] MEDS: HYDROmorphone 0.5 MG/0.5 ML SYRINGE IVP PRN (22:25)
[2019-03-25] MEDS: HYDROcodone/APAP 10-325MG 1 EACH TAB PO PRN ×4 (00:20→18:39)
[2019-03-25] MEDS: HYDROmorphone 0.5 MG/0.5 ML SYRINGE IVP PRN ×5 (03:22→21:40)
[2019-03-25] MEDS: LACTATED RINGERS 1,000 ML IV SCH ×2 (06:19→18:09)
[2019-03-25] MEDS: PANTOPRAZOLE 40 MG TABLET PO SCH (06:19)
[2019-03-25 07:25] LABS: MCV 109.8 fL (80.0-100.0)
[2019-03-25 07:44] LABS: Basophils % (A) 0 %; Eosinophils # (A) 0.1 k/uL (0-0.7); Eosinophils % (A) 1 %; HCT 30.5 % (34.0-46.0); HGB 10.2 gm/dL (11.4-16.0); Hypochromasia Slight; Lymphocytes # (A) 1.4 k/uL (1.0-4.8); Lymphocytes % (A) 21 %; MCH 35.9 pg (25.0-35.0); MCHC 33.5 g/dL (31.0-37.0); MCV 107.4 fL (80.0-100.0); Macrocytosis Moderate; Monocytes # (A) 0.5 k/uL (0-1.0); Monocytes % (A) 7 %; Neutrophils # (A) 4.5 k/uL (1.3-7.7); Neutrophils % (A) 68 %; RBC 2.84 m/uL (3.80-5.40); RDW 14.8 % (11.5-15.5); WBC 6.7 k/uL (3.8-10.6)
[2019-03-25 07:46] LABS: Platelet Count 69 k/uL (150-450)
[2019-03-25 07:57] LABS: Calcium 8.1 mg/dL (8.4-10.2); Potassium 3.9 mmol/L (3.5-5.1)
--- NOTE | 2019-03-25 10:32 | P.PN ---
Subjective Progress Note Date: 03/25/19 This is a 53-year-old female patient who follows with Dr. Estrada as her primary care physician. She has a history of liver cirrhosis secondary to chronic hepatitis C with stigmata of liver failure with chronic ascites requiring multiple paracentesis in the past. she also has a history of hypertension, pancytopenia, he said that she'll binding, left-sided breast cancer with chemotherapy and radiation therapy. Right Port-A-Cath placement. She presented to the emergency room yesterday morning with complaints of vague abdominal pain and right upper quadrant pain that had developed and worsened over the previous 4 days. She was scheduled to undergo a paracentesis today however at 10:10 AM this morning and A team was called due to hypotension. She was transferred here to the intensive care unit where consulted for the same. She did have a drop in blood pressure to 64/39 with slight tachycardia at 105, she maintained O2 saturations in the low 90s on room air. she is currently awake and alert in no acute distress. She states she is dizzy when she stands but otherwise at rest in bed she is comfortable. No shortness of breath, cough or congestion. No chest pain or palpitations. white count 8.0. Hemoglobin 10.5. MCV 111.6. INR 1.1. Lactic acid 4.1. Albumin 2.3. AST 39, ALT 12, ammonia level 51. on today's evaluation of 03/25/2019 I'm seeing the patient for a follow-up. The patient was in the intensive care unit for hypotension pH is known to have liver cirrhosis related to hepatitis C and she has stigmata of chronic liver failure. She has ascites and she has a significant abdominal distention in her abdomen today's quite tense and tender. For that reason, the patient is going to have a diagnostic and therapeutic paracentesis. The patient was given Rocephin yesterday. She is afebrile. Levo fed is running at 0.03 mics per KG per minute. She is arousable. She is awake and she follows commands and answers questions. Lactic acid level is down to 1.7. Urine output is in order of 1 50 mL overnight. The patient does not have a Calderon catheter in place. Rest of the labs, the white cell count is at 6.7, hemoglobin is at 10.2, platelet count is at 69, creatinine is at 1.1, lactic acid level is down to 1.7 Objective - Vital Signs Vital signs: Vital Signs Temp 98.4 F 03/25/19 04:00 Pulse 89 03/25/19 07:00 Resp 20 03/25/19 04:30 BP 102/82 03/25/19 07:00 Pulse Ox 96 03/25/19 06:00 Intake & Output 03/24/19 03/25/19 03/25/19 18:59 06:59 18:59 Intake Total 900 1100 290.914 Output Total 50 150 Balance 850 950 290.914 Weight 71.668 kg 86.5 kg Intake: IV 900 1100 100 Albumin Human 5% 250 ml 250 In Empty Bag 1 bag @ 250 mls/hr IVPB ONCE ONE Rx#: [id number] Lactated Ringers 1,000 ml 600 1000 100 @ 100 mls/hr IV .Q10H [facility] Rx#:[id number] cefTRIAXone 1 gm In 50 100 Sodium Chloride 0.9% 50 ml @ 100 mls/hr IVPB Q24HR [facility] Rx#:[id number] Intake, IV Titration 190.914 Amount Norepinephrine 4 mg In 190.914 Sodium Chloride 0.9% 250 ml @ 0.05 MCG/KG/MIN 13. 653 mls/hr IV .[id number] [facility] Rx#:[id number] Oral 0 Output: Urine 50 150 Other: Voiding Method Bedpan Bedside Commode # Voids 1 0 # Bowel Movements 1 - Exam GENERAL EXAM: Alert, 53-year-old female patient who appears older than her stated age, on room air, comfortable in no apparent distress. HEAD: Normocephalic. EYES: Normal reaction of pupils, equal size. NOSE: Clear with pink turbinates. THROAT: No erythema or exudates. NECK: No masses, no JVD. CHEST: No chest wall deformity. LUNGS: Equal air entry with no crackles, wheeze, rhonchi or dullness. CVS: S1 and S2 normal with no audible murmur, regular rhythm. ABDOMEN: Distended, positive fluid wave, and the patient is direct tenderness, no rebound tenderness, no guarding. SPINE: No scoliosis or deformity SKIN: No rashes CENTRAL NERVOUS SYSTEM: No focal deficits, tone is normal in all 4 extremities. EXTREMITIES: There is no peripheral edema. No clubbing, no cyanosis. Peripheral pulses are intact. - Labs CBC & Chem 7: 03/25/19 07:05 03/25/19 07:05 Labs: Abnormal Lab Results - Last 24 Hours (Table) 03/24/19 03/24/19 03/24/19 Range/Units 05:29 11:02 11:02 RBC 3.00 L (3.80-5.40) m/uL Hgb 10.5 L (11.4-16.0) gm/dL Hct 33.5 L (34.0-46.0) % MCV 109.8 H D 111.6 H (80.0-100.0) fL MCH (25.0-35.0) pg Plt Count 58 L (150-450) k/uL Macrocytosis Marked A Sodium (137-145) mmol/L Chloride 109 H (98-107) mmol/L Carbon Dioxide 20 L (22-30) mmol/L BUN 18 H (7-17) mg/dL Creatinine 1.18 H (0.52-1.04) mg/dL Glucose 110 H (74-99) mg/dL Plasma Lactic Acid Darrius (0.7-2.0) mmol/L Calcium 7.7 L (8.4-10.2) mg/dL Total Bilirubin 4.4 H (0.2-1.3) mg/dL AST 39 H (14-36) U/L Total Protein 5.9 L (6.3-8.2) g/dL Albumin 2.3 L (3.5-5.0) g/dL Amylase (30-110) U/L 03/24/19 03/24/19 03/24/19 Range/Units 11:02 14:18 18:32 RBC (3.80-5.40) m/uL Hgb (11.4-16.0) gm/dL Hct (34.0-46.0) % MCV (80.0-100.0) fL MCH (25.0-35.0) pg Plt Count (150-450) k/uL Macrocytosis Sodium (137-145) mmol/L Chloride (98-107) mmol/L Carbon Dioxide (22-30) mmol/L BUN (7-17) mg/dL Creatinine (0.52-1.04) mg/dL Glucose (74-99) mg/dL Plasma Lactic Acid Darrius 3.9 H* 2.5 H* (0.7-2.0) mmol/L Calcium (8.4-10.2) mg/dL Total Bilirubin (0.2-1.3) mg/dL AST (14-36) U/L Total Protein (6.3-8.2) g/dL Albumin (3.5-5.0) g/dL Amylase <30 L (30-110) U/L 03/25/19 03/25/19 Range/Units 07:05 07:05 RBC 2.84 L (3.80-5.40) m/uL Hgb 10.2 L (11.4-16.0) gm/dL Hct 30.5 L (34.0-46.0) % MCV 107.4 H (80.0-100.0) fL MCH 35.9 H (25.0-35.0) pg Plt Count 69 L (150-450) k/uL Macrocytosis Sodium 135 L (137-145) mmol/L Chloride (98-107) mmol/L Carbon Dioxide (22-30) mmol/L BUN 27 H (7-17) mg/dL Creatinine 1.10 H (0.52-1.04) mg/dL Glucose 109 H (74-99) mg/dL Plasma Lactic Acid Darrius (0.7-2.0) mmol/L Calcium 8.1 L (8.4-10.2) mg/dL Total Bilirubin (0.2-1.3) mg/dL AST (14-36) U/L Total Protein (6.3-8.2) g/dL Albumin (3.5-5.0) g/dL Amylase (30-110) U/L Assessment and Plan Plan: 1 Hypotension secondary to fluid volume shift with abdominal distention and ascites secondary to cirrhosis.consider also the possibility of spontaneous bacterial peritonitis as the patient has abdominal distention and tenderness in addition to hypotension responding to antibiotics and pressors. We'll proceed with a diagnostic and therapeutic paracentesis that needs to be done in the ICU. 2 Cirrhosis secondary to hepatitis C 3 History of multiple paracentesis last one in June 2018 was 7.4 L removed 4 Hypoproteinemia and albuminemia 5 History of upper GI bleed secondary to portal hypertension with eesophageal varices post banding 6 Chronic anemia 7 Acid reflux 8 History of hypertension 9 History of left-sided breast cancer status post chemo/radiation 10 Chronic and ongoing tobacco dependence 11 History of spontaneous bacterial peritonitis with acute sepsis in 2018 plan The IV Fluids to 40 ML an Hour. Lactic Acid Level Is Improved. Continue the IV Rocephin. Diagnostic and Therapeutic Paracentesis to Be Done Today. The Patient Will Be Replenished with Albumin. The patient will have her hemodynamics monitored here in the ICU. She wanted the procedure to be done by interventional radiology. I'm going to consult Dr. Ede Son in that regard.she'll be kept in ICU as long as she is presently dependent.
[2019-03-25] MEDS: NOREPINEPHRINE 4 MG in SODIUM CHLORIDE 0.9% 250 ML IV SCH (12:14)
--- NOTE | 2019-03-25 15:32 | PN ---
PROGRESS NOTE CHIEF COMPLAINT: Hypotension, dehydration, cirrhosis, ascites, hepatitis C and carcinoma of the breast. HISTORY OF PRESENT ILLNESS: This lady has been stable. Vital signs have stabilized and blood pressure is up. She is currently making her usual complaints about her abdominal pain, but not shortness of breath, lightheadedness, dizziness, confusion, etc. PHYSICAL EXAMINATION: Blood pressure is 105/64 with a pulse of 73. She remains slightly dehydrated and pale. She will not allow a chest exam. IMPRESSION: 1. Dehydration. 2. Hypotension. 3. Cirrhosis with intractable ascites. 4. Hepatitis C. 5. Carcinoma of the breast. PLAN: Continue with current treatment measures with rehydration, and eventually she will undergo paracentesis. MMODL / IJN: [id number] /
[2019-03-25 17:43] LABS: Appearance,BF Hazy; Color,BF Yellow; Nucleated Cells, Body Fluid 190 /uL; RBC, Body Fluid 5710 /uL
[2019-03-25 17:49] LABS: Mononuclear WBC,Body Fluid 13 %; Polynuclear WBC,Body Fluid 87 %; Total Cells Counted,Body Fluid 100
--- NOTE | 2019-03-25 20:04 | P.PN ---
Subjective Progress Note Date: 03/25/19 Principal diagnosis: Decompensated cirrhosis with ascites, hypotension, suspected SBP Patient seen lying in bed reporting paracentesis earlier in the day with a reported 10 L removed. Still reporting abdominal pain. Objective - Vital Signs Vital signs: Vital Signs Temp 97.7 F 03/25/19 12:00 Pulse 86 03/25/19 15:40 Resp 20 03/25/19 15:40 BP 96/59 03/25/19 15:40 Pulse Ox 93 L 03/25/19 15:40 Intake & Output 03/24/19 03/25/19 03/25/19 18:59 06:59 18:59 Intake Total 900 1100 819.040 Output Total 50 150 Balance 850 950 819.040 Weight 71.668 kg 86.5 kg Intake: IV 900 1100 600 Albumin Human 5% 250 ml 250 In Empty Bag 1 bag @ 250 mls/hr IVPB ONCE ONE Rx#: [id number] Lactated Ringers 1,000 ml 600 1000 600 @ 40 mls/hr IV .Q24H [facility] Rx#:[id number] cefTRIAXone 1 gm In 50 100 Sodium Chloride 0.9% 50 ml @ 100 mls/hr IVPB Q24HR [facility] Rx#:[id number] Intake, IV Titration 219.040 Amount Norepinephrine 4 mg In 219.040 Sodium Chloride 0.9% 250 ml @ 0.05 MCG/KG/MIN 13. 653 mls/hr IV .[id number] [facility] Rx#:[id number] Oral 0 Output: Urine 50 150 Other: Voiding Method Bedpan Bedside Commode Bedside Commode # Voids 1 0 1 # Bowel Movements 1 - Exam On physical examination, patient appears comfortable in no apparent distress. HEAD: Normocephalic, atraumatic. EYES: No scleral icterus. No conjunctival injection. MOUTH: No lesions, tongue midline. NECK: Trachea midline, no gross abnormalities. ABDOMEN: Soft, less distended. Bowel sounds are positive. No organomegaly. No guarding or rigidity. EXTREMITIES: No pedal edema. SKIN: No rashes, no jaundice. NEUROLOGIC: Alert and oriented x3. - Labs CBC & Chem 7: 03/25/19 07:05 03/25/19 07:05 Labs: Abnormal Lab Results - Last 24 Hours (Table) 03/24/19 03/24/19 03/25/19 Range/Units 05:29 18:32 07:05 RBC 2.84 L (3.80-5.40) m/uL Hgb 10.2 L (11.4-16.0) gm/dL Hct 30.5 L (34.0-46.0) % MCV 109.8 H D 107.4 H (80.0-100.0) fL MCH 35.9 H (25.0-35.0) pg Plt Count 69 L (150-450) k/uL Sodium (137-145) mmol/L BUN (7-17) mg/dL Creatinine (0.52-1.04) mg/dL Glucose (74-99) mg/dL Plasma Lactic Acid Darrius 2.5 H* (0.7-2.0) mmol/L Calcium (8.4-10.2) mg/dL 03/25/19 Range/Units 07:05 RBC (3.80-5.40) m/uL Hgb (11.4-16.0) gm/dL Hct (34.0-46.0) % MCV (80.0-100.0) fL MCH (25.0-35.0) pg Plt Count (150-450) k/uL Sodium 135 L (137-145) mmol/L BUN 27 H (7-17) mg/dL Creatinine 1.10 H (0.52-1.04) mg/dL Glucose 109 H (74-99) mg/dL Plasma Lactic Acid Darrius (0.7-2.0) mmol/L Calcium 8.1 L (8.4-10.2) mg/dL Microbiology - Last 24 Hours (Table) 03/24/19 11:02 Blood Culture - Preliminary Blood No Growth after 24 hours Assessment and Plan (1) Ascites Narrative/Plan: 53-year-old female with a known history of decompensated cirrhosis secondary to hepatitis C previously treated with antiviral therapy and known history of ascites and prior esophageal varices status post banding with last EGD in 04/2016 who presented with complaints of abdominal distention, pain and weakness. Patient was scheduled for paracentesis and was sent to the ICU due to concerns over hypotension. Concern at this time is for possible spontaneous bacterial peritonitis for which patient is currently receiving antibiotic therapy. Current Visit: Yes Status: Acute Code(s): R18.8 - OTHER ASCITES SNOMED Code(s): 694630597 (2) Cirrhosis of liver Current Visit: Yes Status: Acute Code(s): K74.60 - UNSPECIFIED CIRRHOSIS OF LIVER SNOMED Code(s): 24340294 (3) Abdominal pain Current Visit: No Status: Acute Code(s): R10.9 - UNSPECIFIED ABDOMINAL PAIN SNOMED Code(s): 27556789 (4) Hepatitis C virus infection without hepatic coma Current Visit: No Status: Acute Code(s): B19.20 - UNSPECIFIED VIRAL H EPATITIS C WITHOUT HEPATIC COMA SNOMED Code(s): 31904215 (5) History of esophageal varices with bleeding Current Visit: No Status: Acute Code(s): Z87.19 - PERSONAL HISTORY OF OTHER DISEASES OF THE DIGESTIVE SYSTEM SNOMED Code(s): 531527142 Plan: Supportive care Okay for sodium restricted diet Paracentesis pending, fluid studies suggestive of a traumatic paracentesis with a large number of RBCs seen, we'll continue empiric treatment for SBP and await cultures Continue ceftriaxone for treatment of suspected SBP Appreciate recommendations from indexer and infectious disease services Continue to monitor CBC, CMP Protonix 40 mg daily added Going forward, patient may benefit from antibiotic therapy for SBP prophylaxis Thank you for allowing us to participate in the care of the patient we will continue to follow
--- NOTE | 2019-03-25 23:06 | P.PN ---
Subjective Progress Note Date: 03/25/19 This is a 53-year-old female who has multiple medical troubles that includes her triple negative breast carcinoma and her chronic active hepatitis C with cirrhosis and chronic refractory ascites that has required multiple admissions and multiple paracentesis. She has beem treated with Epculusa for her hepatitis C. She continues to have cirrhosis with her significant and refractory ascites that has required multiple paracentesis and is up to every other week paracentesis. Is noted she's had multiple hospitalizations, since April she however has not had evidence of significant peritonitis. However she now is admitted with marked increase of her abdominal pain, and alteration of her functional status and hypotension. She comes was brought in intensive care unit. There are plans for a paracentesis but she had significant hypotension and this is been delayed until her blood pressure improves. Is complaining of severe pain but had worsening of her hypotension after a dose of Dilaudid and is receiving no further pain medication. Is noted admission that she had significant leukopenia which is starting to improve since her admission fluids and antibiotic therapy. The patient relates that she is really quite miserable but does not seem to be considerably worse than on some days. But does relate over the last 5 days her abdominal distention has worsened as has her pain. She is not taking any SBP prophylaxis. 03/25/2019 the patient is now status post ultrasound-guided paracentesis, 10.7 L removed and she feels considerably better. She does feel weak since procedure but her abdominal pain is considerably improved she has a bit of an appetite looks forward to improving her intake. Denies fevers or chills and her weakness is improved. Objective - Vital Signs Vital signs: Vital Signs Temp 98.4 F 03/25/19 20:00 Pulse 90 03/25/19 22:00 Resp 23 03/25/19 22:00 BP 94/59 03/25/19 22:00 Pulse Ox 91 L 03/25/19 22:00 Intake & Output 03/25/19 03/25/19 03/26/19 06:59 18:59 06:59 Intake Total 1100 939.040 160 Output Total 150 0 Balance 950 939.040 160 Weight 86.5 kg Intake: IV 1100 720 160 Lactated Ringers 1,000 ml 1000 720 160 @ 40 mls/hr IV .Q24H [facility] Rx#:[id number] cefTRIAXone 1 gm In 100 Sodium Chloride 0.9% 50 ml @ 100 mls/hr IVPB Q24HR [facility] Rx#:[id number] Intake, IV Titration 219.040 Amount Norepinephrine 4 mg In 219.040 Sodium Chloride 0.9% 250 ml @ 0.05 MCG/KG/MIN 13. 653 mls/hr IV .[id number] [facility] Rx#:[id number] Oral 0 Output: Urine 150 0 Other: Voiding Method Bedside Commode Bedside Commode # Voids 0 1 - Exam patient is mildly jaundiced does complain of pain seems to be less agitated with the observer them with the nursing staff HEENT: mildly icteric ,conjunctiva are pink and moist nasal mucosa grossly intact without significant lesions, there is no thrush. Neck: The neck is supple without significant lymphadenopathy or thyromegaly. Lungs:symmetrical air entry, expiratory wheezes are heard a few crackles at the bases Heart: Regular rate and rhythm with an audible S1-S2, no S3 soft S4 2/6 systolic murmur left sternal border is noted Abdomen: patient has marked improvement of her abdominal distention after the paracentesis, abdomen still has some diffuse tenderness but there is no rebound or rigidity. Organomegaly could not be palpated. The abdomen is very tender to touch. Extremities: The upper extremities have excellent pulses they are symmetric, no significant petechiae or telangiectasia. No splinter hemorrhages were noted. lower extremities no evidence of the bilateral lower extremity edema, no open ulcerations petechia or vesicles are seen Neuro: Awake alert oriented to person place and time. There are no acute new gross focal sensory motor deficits. - Labs CBC & Chem 7: 03/25/19 07:05 03/25/19 07:05 Labs: Abnormal Lab Results - Last 24 Hours (Table) 03/24/19 03/25/19 03/25/19 Range/Units 05:29 07:05 07:05 RBC 2.84 L (3.80-5.40) m/uL Hgb 10.2 L (11.4-16.0) gm/dL Hct 30.5 L (34.0-46.0) % MCV 109.8 H D 107.4 H (80.0-100.0) fL MCH 35.9 H (25.0-35.0) pg Plt Count 69 L (150-450) k/uL Sodium 135 L (137-145) mmol/L BUN 27 H (7-17) mg/dL Creatinine 1.10 H (0.52-1.04) mg/dL Glucose 109 H (74-99) mg/dL Calcium 8.1 L (8.4-10.2) mg/dL Microbiology - Last 24 Hours (Table) 03/24/19 11:02 Blood Culture - Preliminary Blood No Growth after 24 hours Laboratory Results WBC 6.7 k/uL (3.8-10.6) 03/25/19 07:05 RBC 2.84 m/uL (3.80-5.40) L 03/25/19 07:05 Hgb 10.2 gm/dL (11.4-16.0) L 03/25/19 07:05 Hct 30.5 % (34.0-46.0) L 03/25/19 07:05 MCV 107.4 fL (80.0-100.0) H 03/25/19 07:05 MCH 35.9 pg (25.0-35.0) H 03/25/19 07:05 MCHC 33.5 g/dL (31.0-37.0) 03/25/19 07:05 RDW 14.8 % (11.5-15.5) 03/25/19 07:05 Plt Count 69 k/uL (150-450) L 03/25/19 07:05 Neutrophils % 68 % 03/25/19 07:05 Neutrophils % (Manual) 88 % 03/24/19 05:29 Lymphocytes % 21 % 03/25/19 07:05 Lymphocytes % (Manual) 3 % 03/24/19 05:29 Monocytes % 7 % 03/25/19 07:05 Monocytes % (Manual) 8 % 03/24/19 05:29 Eosinophils % 1 % 03/25/19 07:05 Eosinophils % (Manual) 1 % 03/24/19 05:29 Basophils % 0 % 03/25/19 07:05 Neutrophils # 4.5 k/uL (1.3-7.7) 03/25/19 07:05 Neutrophils # (Manual) 7.74 k/uL (1.3-7.7) H 03/24/19 05:29 Lymphocytes # 1.4 k/uL (1.0-4.8) 03/25/19 07:05 Lymphocytes # (Manual) 0.26 k/uL (1.0-4.8) L 03/24/19 05:29 Monocytes # 0.5 k/uL (0-1.0) 03/25/19 07:05 Monocytes # (Manual) 0.70 k/uL (0-1.0) 03/24/19 05:29 Eosinophils # 0.1 k/uL (0-0.7) 03/25/19 07:05 Eosinophils # (Manual) 0.09 k/uL (0-0.7) 03/24/19 05:29 Basophils # 0.0 k/uL (0-0.2) 03/25/19 07:05 Nucleated RBCs 0 /100 WBC (0-0) 03/24/19 05:29 Manual Slide Review Performed 03/24/19 11:02 Large Platelets Present 03/24/19 05:29 Hypochromasia Slight 03/25/19 07:05 Poikilocytosis (manual Present 03/24/19 11:02 Macrocytosis Moderate 03/25/19 07:05 PT 11.7 sec (9.0-12.0) 03/23/19 06:06 INR 1.1 (<1.2) 03/23/19 06:06 APTT 29.9 sec (22.0-30.0) 03/23/19 06:06 Sodium 135 mmol/L (137-145) L 03/25/19 07:05 Potassium 3.9 mmol/L (3.5-5.1) 03/25/19 07:05 Chloride 107 mmol/L (98-107) 03/25/19 07:05 Carbon Dioxide 23 mmol/L (22-30) 03/25/19 07:05 Anion Gap 5 mmol/L 03/25/19 07:05 BUN 27 mg/dL (7-17) H 03/25/19 07:05 Creatinine 1.10 mg/dL (0.52-1.04) H 03/25/19 07:05 Est GFR (CKD-EPI)AfAm 66 (>60 ml/min/1.73 sqM) 03/25/19 07:05 Est GFR (CKD-EPI)NonAf 57 (>60 ml/min/1.73 sqM) 03/25/19 07:05 Glucose 109 mg/dL (74-99) H 03/25/19 07:05 POC Glucose (mg/dL) 83 mg/dL (75-99) 03/24/19 05:12 POC Glu Restaurant Area Manager ID Perri De La Fuente 03/24/19 05:12 Lactic Ac Sepsis Rflx Y 03/24/19 19:11 Plasma Lactic Acid Darrius 1.7 mmol/L (0.7-2.0) 03/24/19 22:46 Calcium 8.1 mg/dL (8.4-10.2) L 03/25/19 07:05 Total Bilirubin 4.4 mg/dL (0.2-1.3) H 03/24/19 11:02 AST 39 U/L (14-36) H 03/24/19 11:02 ALT 12 U/L (4-34) 03/24/19 11:02 Alkaline Phosphatase 61 U/L (38-126) 03/24/19 11:02 Ammonia <9 umol/L (<30) 03/24/19 14:18 Total Protein 5.9 g/dL (6.3-8.2) L 03/24/19 11:02 Albumin 2.3 g/dL (3.5-5.0) L 03/24/19 11:02 Amylase <30 U/L (30-110) L 03/24/19 11:02 Lipase 37 U/L (23-300) 03/24/19 11:02 Fluid Source Ascitic 03/25/19 14:20 Fluid Color Yellow 03/25/19 14:20 Fluid Appearance Hazy 03/25/19 14:20 Fluid RBC 5710 /uL 03/25/19 14:20 Fluid Nucleated Cells 190 /uL 03/25/19 14:20 Fluid Polynuclear WBCs 87 % 03/25/19 14:20 Fluid Mononuclear WBCs 13 % 03/25/19 14:20 Microbiology 03/24/19 11:02 Blood Blood Culture - Preliminary No Growth after 24 hours Assessment and Plan (1) Ascites Narrative/Plan: 53-year-old female who has a history of hepatitis C status post treatment however has significant cirrhosis of the liver with ongoing ascites and complications and symptoms related to that. She presents to Hospital feeling very poorly with progressive amount of abdominal pain and weakness over 5 days. It admission shows evidence of extensive ascites but has developed hypotension it was moved to the intensive care unit for further treatment. When more stable a paracentesis is planned. They will be helpful to evaluate the fluid to evaluate for the possibility of spontaneous bacterial peritonitis. While that is pending antibiotic therapy has been started with Rocephin which is an appropriate choice for this particular problem. The patient did have significant leukopenia upon admission but now with supportive care and antibiotic therapy she has now normalized her white blood cell count. Pain control is an issue at this time given her significant hypotension compared to her many recent admissions her blood pressure is quite low nursing staff is working to try to improve this at this time. If her blood pressure improves that she would be able to have some more narcotic pain medication at that time. The patient's bilirubin has increased considerably compared to last evaluation, likely on the basis of her current decompensated liver disease and potentially from underlying spontaneous bacterial peritonitis. The significant elevated lactic acid is is likely is not coming from spontaneous bacterial peritonitis as it is from her decompensated liver disease. 03/25/2019 the patient is now status post high-volume paracentesis and she is feeling somewhat better. Her abdominal pain is definitely improved her weakness is improving she's developed a bit of appetite. With her improved pain she is more awake and interactive. She is receiving Rocephin for concerns is material bacterial peritonitis, await analysis the fluid and cultures to determine the course of antibiotic therapy discharge. She has been seen by her litigation legal assistant. There is evidence of elevated bilirubin which is high from her baseline. Current Visit: Yes Status: Acute Code(s): R18.8 - OTHER ASCITES SNOMED Code(s): 449693965 (2) Cirrhosis of liver Current Visit: Yes Status: Acute Code(s): K74.60 - UNSPECIFIED CIRRHOSIS OF LIVER SNOMED Code(s): 50226480 (3) Hypotension Current Visit: Yes Status: Acute Code(s): I95.9 - HYPOTENSION, UNSPECIFIED SNOMED Code(s): 90112034 (4) Abdominal pain Current Visit: No Status: Acute Code(s): R10.9 - UNSPECIFIED ABDOMINAL PAIN SNOMED Code(s): 88317557
[2019-03-26] MEDS: HYDROcodone/APAP 10-325MG 1 EACH TAB PO PRN ×4 (00:08→19:05)
[2019-03-26 00:59] LABS: Albumin, Fluid Source Ascites; Amylase, Fluid Source Ascites; Glucose, BF Source Ascites; Glucose, Body Fluid 69 mg/dL; LDH, Body Fluid Source Ascites
[2019-03-26] MEDS: HYDROmorphone 0.5 MG/0.5 ML SYRINGE IVP PRN (03:14)
[2019-03-26] MEDS: LACTATED RINGERS 1,000 ML IV SCH (05:08)
[2019-03-26] MEDS: HYDROmorphone 1 MG/ML 1 ML SYRINGE IVP PRN ×6 (05:08→23:29)
[2019-03-26 05:25] LABS: Basophils % (A) 0 %; Eosinophils % (A) 1 %; HCT 35.4 % (34.0-46.0); HGB 11.5 gm/dL (11.4-16.0); Hypochromasia Slight; Lymphocytes # (A) 1.1 k/uL (1.0-4.8); Lymphocytes % (A) 18 %; MCH 35.2 pg (25.0-35.0); MCHC 32.4 g/dL (31.0-37.0); MCV 108.5 fL (80.0-100.0); Macrocytosis Marked; Mean Platelet Volume 11.3; Monocytes # (A) 0.4 k/uL (0-1.0); Monocytes % (A) 7 %; Neutrophils # (A) 4.3 k/uL (1.3-7.7); Neutrophils % (A) 72 %; RBC 3.26 m/uL (3.80-5.40); RDW 14.8 % (11.5-15.5); WBC 5.9 k/uL (3.8-10.6)
[2019-03-26 05:27] LABS: Platelet Count 71 k/uL (150-450)
[2019-03-26 05:35] LABS: African American GFR (CKD) >90 (>60 ml/min/1.73 sqM); Anion Gap 5 mmol/L; Blood Urea Nitrogen 22 mg/dL (7-17); Calcium 7.7 mg/dL (8.4-10.2); Carbon Dioxide 23 mmol/L (22-30); Chloride 107 mmol/L (98-107); Glucose 139 mg/dL (74-99); Non-African American GFR(CKD) 86 (>60 ml/min/1.73 sqM); Potassium 3.6 mmol/L (3.5-5.1); Sodium 135 mmol/L (137-145)
[2019-03-26] MEDS: PANTOPRAZOLE 40 MG TABLET PO SCH (06:26)
--- NOTE | 2019-03-26 09:27 | US ---
EXAMINATION TYPE: US paracentesis abd w/image DATE OF EXAM: 03/25/2019 COMPARISON: NONE HISTORY: Ascites. PROCEDURE: Maximal barrier technique was utilized. The skin overlying a suitable pocket of fluid was localized with ultrasound and the overlying skin was prepped and draped. Ultrasound was utilized with sterile technique. Lidocaine was used for local anesthesia and a skin adela made with a scalpel. Catheter was advanced under direct ultrasound guidance into a suitable pocket of fluid and approximately 10.4 lite rs of serous fluid were removed. Catheter was withdrawn and hemostasis achieved. There is no immedi ate complication; the patient is discharged in stable condition. IMPRESSION: STATUS POST ULTRASOUND GUIDED PARACENTESIS FOR PALLIATION OF ASCITES. THIS PROCEDURE WA S PERFORMED BY THE UNDERSIGNED. Specimen obtained for laboratory analysis.
--- NOTE | 2019-03-26 11:26 | P.PN ---
Subjective Progress Note Date: 03/26/19 Principal diagnosis: Abdominal discomfort secondary to ascites The patient is seen today 03/26/2019 in follow-up in the intensive care unit. She is currently awake and alert in no acute distress. Maintaining O2 saturations in the 90s on 2 L/m per nasal cannula. She did undergo an ultrasound-guided paracentesis by Dr. Son yesterday. 10.4 L was removed. Her abdomen is less distended. Less discomfort. White count 5.9. Hemoglobin 11.5. MCV 108. Platelet count 71,000. Fluid analysis reviewed, no clear evidence of SPP based on cell counts. She does remain on cefepime. Norepinephrine has been off since 11 AM. Current map 70. Objective - Vital Signs Vital signs: Vital Signs Temp 98 F 03/26/19 04:00 Pulse 85 03/26/19 10:00 Resp 9 L 03/26/19 10:00 BP 129/97 03/26/19 10:00 Pulse Ox 92 L 03/26/19 10:00 Intake & Output 03/25/19 03/26/19 03/26/19 18:59 06:59 18:59 Intake Total 939.040 480 896.505 Output Total 0 Balance 939.040 480 896.505 Weight 76.1 kg Intake: IV 720 480 210 Lactated Ringers 1,000 ml 720 480 160 @ 40 mls/hr IV .Q24H [facility] Rx#:[id number] cefTRIAXone 1 gm In 50 Sodium Chloride 0.9% 50 ml @ 100 mls/hr IVPB Q24HR [facility] Rx#:[id number] Intake, IV Titration 219.040 186.505 Amount Norepinephrine 4 mg In 219.040 186.505 Sodium Chloride 0.9% 250 ml @ 0.05 MCG/KG/MIN 13. 653 mls/hr IV .[id number] [facility] Rx#:[id number] Oral 500 Output: Urine 0 Other: Voiding Method Bedside Commode Toilet Toilet # Voids 1 1 1 - Exam GENERAL EXAM: Alert, frail cachectic 53-year-old female patient appears older than stated age, comfortable in no apparent distress. on 2 L/m per nasal cannula. HEAD: Normocephalic. EYES: Normal reaction of pupils, equal size. NOSE: Clear with pink turbinates. THROAT: No erythema or exudates. NECK: No masses, no JVD. CHEST: No chest wall deformity. LUNGS: Equal air entry with crackles in the posterior bases, diminished. CVS: S1 and S2 normal with no audible murmur, regular rhythm. ABDOMEN: No hepatosplenomegaly, normal bowel sounds, no guarding or rigidity. SPINE: No scoliosis or deformity SKIN: No rashes CENTRAL NERVOUS SYSTEM: No focal deficits, tone is normal in all 4 extremities. EXTREMITIES: There is no peripheral edema. No clubbing, no cyanosis. P eripheral pulses are intact. - Labs CBC & Chem 7: 03/26/19 05:02 03/26/19 05:02 Labs: Abnormal Lab Results - Last 24 Hours (Table) 03/26/19 03/26/19 Range/Units 05:02 05:02 RBC 3.26 L (3.80-5.40) m/uL MCV 108.5 H (80.0-100.0) fL MCH 35.2 H (25.0-35.0) pg Plt Count 71 L (150-450) k/uL Macrocytosis Marked A Sodium 135 L (137-145) mmol/L BUN 22 H (7-17) mg/dL Glucose 139 H (74-99) mg/dL Calcium 7.7 L (8.4-10.2) mg/dL Microbiology - Last 24 Hours (Table) 03/25/19 14:20 Gram Stain - Preliminary Ascites Fluid Body Fluid Culture - Preliminary 03/25/19 14:20 Fungal Culture - Preliminary Ascites Fluid 03/25/19 14:20 Anaerobic Culture - Preliminary Ascites Fluid 03/24/19 11:02 Blood Culture - Preliminary Blood No Growth after 24 hours Assessment and Plan Assessment: 1 Hypotension secondary to fluid volume shift with abdominal distention and ascites secondary to cirrhosis. status post paracentesis on 03/25/2019 with 10.4 L removed. No evidence of SPP on fluid analysis. 2 Cirrhosis secondary to hepatitis C 3 History of multiple paracentesis last one in June 2018 was 7.4 L removed 4 Hypoproteinemia and albuminemia 5 History of upper GI bleed secondary to portal hypertension with esophageal varicesit is post banding 6 Chronic anemia 7 Acid reflux 8 History of hypertension 9 History of left-sided breast cancer status post chemo/radiation 10 Chronic and ongoing tobacco dependence 11 History of spontaneous bacterial peritonitis with acute sepsis in 2017 Plan: The patient was seen and evaluated by Dr. Gerard. She is currently stable from the pulmonary and critical care standpoint. Continue cefepime. She is off the norepinephrine at 11 AM this morning. We'll continue to monitor her blood pressures for another 6 hours here in the ICU. We will continue to follow and make further recommendations based on her clinical status. I, the cosigning physician, performed a history & physical examination of the patient. Lungs sounds crackles in the posterior bases, diminished. Maintaining good O2 saturations in the 90s on 2 L/m per nasal cannula. I discussed the assessment and plan of care with my nurse practitioner, Beena Anderson. I attest to the above note as dictated by her.
[2019-03-26] MEDS: MORPHINE SULFATE ER 15 MG TABLET PO SCH ×2 (12:17→22:08)
[2019-03-26] MEDS: NOREPINEPHRINE 4 MG in SODIUM CHLORIDE 0.9% 250 ML IV SCH (17:25)
--- NOTE | 2019-03-26 20:20 | PN ---
PROGRESS NOTE DATE OF SERVICE: March 26, 2019 CHIEF COMPLAINT: Intractable abdominal pain, cirrhosis, hepatitis C and ascites. HISTORY OF PRESENT ILLNESS: This lady is fairly stable but still complaining a lot of discomfort. Paracentesis has been performed. At the present time, she is lethargic. She is sleeping and refuses exam. IMPRESSION: 1. Cirrhosis with intractable ascites. 2. Hepatitis C. 3. Carcinoma of the left breast. PLAN: Continue to keep her comfortable and, if her vital signs remain stable, she could go home anytime as long as she has help. MMODL / IJN: [id number] /
--- NOTE | 2019-03-26 23:02 | P.PN ---
Subjective Progress Note Date: 03/26/19 Principal diagnosis: Decompensated cirrhosis with ascites, hypotension, suspected SBP Patient seen lying in bed reporting less abdominal pain today. Tolerating diet. No nausea or vomiting. Objective - Vital Signs Vital signs: Vital Signs Temp 98 F 03/26/19 04:00 Pulse 85 03/26/19 10:00 Resp 9 L 03/26/19 10:00 BP 129/97 03/26/19 10:00 Pulse Ox 92 L 03/26/19 10:00 Intake & Output 03/25/19 03/26/19 03/26/19 18:59 06:59 18:59 Intake Total 939.040 480 710 Output Total 0 Balance 939.040 480 710 Weight 76.1 kg Intake: IV 720 480 210 Lactated Ringers 1,000 ml 720 480 160 @ 40 mls/hr IV .Q24H [facility] Rx#:[id number] cefTRIAXone 1 gm In 50 Sodium Chloride 0.9% 50 ml @ 100 mls/hr IVPB Q24HR [facility] Rx#:[id number] Intake, IV Titration 219.040 Amount Norepinephrine 4 mg In 219.040 Sodium Chloride 0.9% 250 ml @ 0.05 MCG/KG/MIN 13. 653 mls/hr IV .[id number] [facility] Rx#:[id number] Oral 500 Output: Urine 0 Other: Voiding Method Bedside Commode Toilet # Voids 1 1 1 - Exam On physical examination, patient appears comfortable in no apparent distress. HEAD: Normocephalic, atraumatic. EYES: No scleral icterus. No conjunctival injection. MOUTH: No lesions, tongue midline. NECK: Trachea midline, no gross abnormalities. ABDOMEN: Soft, less distended. Bowel sounds are positive. No organomegaly. No guarding or rigidity. EXTREMITIES: No pedal edema. SKIN: No rashes, no jaundice. NEUROLOGIC: Alert and oriented x3. No asterixis noted. - Labs CBC & Chem 7: 03/26/19 05:02 03/26/19 05:02 Labs: Abnormal Lab Results - Last 24 Hours (Table) 03/26/19 03/26/19 Range/Units 05:02 05:02 RBC 3.26 L (3.80-5.40) m/uL MCV 108.5 H (80.0-100.0) fL MCH 35.2 H (25.0-35.0) pg Plt Count 71 L (150-450) k/uL Macrocytosis Marked A Sodium 135 L (137-145) mmol/L BUN 22 H (7-17) mg/dL Glucose 139 H (74-99) mg/dL Calcium 7.7 L (8.4-10.2) mg/dL Microbiology - Last 24 Hours (Table) 03/25/19 14:20 Gram Stain - Preliminary Ascites Fluid Body Fluid Culture - Preliminary 03/25/19 14:20 Fungal Culture - Preliminary Ascites Fluid 03/25/19 14:20 Anaerobic Culture - Preliminary Ascites Fluid 03/24/19 11:02 Blood Culture - Preliminary Blood No Growth after 24 hours Assessment and Plan (1) Ascites Narrative/Plan: 53-year-old female with a known history of decompensated cirrhosis secondary to hepatitis C previously treated with antiviral therapy and known history of ascites and prior esophageal varices status post banding with last EGD in 04/2016 who presented with complaints of abdominal distention, pain and weakness. Patient was scheduled for paracentesis and was sent to the ICU due to concerns over hypotension. Concern was for possible SBP for which the patient has been on antibiotic therapy, however of note fluid studies not consistent with SBP with cultures pending. Current Visit: Yes Status: Acute Code(s): R18.8 - OTHER ASCITES SNOMED Code(s): 750432581 (2) Cirrhosis of liver Current Visit: Yes Status: Acute Code(s): K74.60 - UNSPECIFIED CIRRHOSIS OF LIVER SNOMED Code(s): 15961499 (3) Abdominal pain Current Visit: No Status: Acute Code(s): R10.9 - UNSPECIFIED ABDOMINAL PAIN SNOMED Code(s): 15901277 (4) Hepatitis C virus infection without hepatic coma Current Visit: No Status: Acute Code(s): B19.20 - UNSPECIFIED VIRAL HEPATITIS C WITHOUT HEPATIC COMA SNOMED Code(s): 29073818 (5) History of esophageal varices with bleeding Current Visit: No Status: Acute Code(s): Z87.19 - PERSONAL HISTORY OF OTHER DISEASES OF THE DIGESTIVE SYSTEM SNOMED Code(s): 975903461 Plan: Supportive care Okay for sodium restricted diet Paracentesis pending, fluid studies suggestive of a traumatic paracentesis with a large number of RBCs seen, we'll continue empiric treatment for SBP and await cultures Continue antibiotic therapy Appreciate recommendations from digital cartographer and infectious disease services Continue to monitor CBC, CMP Protonix 40 mg daily Going forward, patient may benefit from antibiotic therapy for SBP prophylaxis Thank you for allowing us to participate in the care of the patient we will continue to follow
[2019-03-27] MEDS: HYDROcodone/APAP 10-325MG 1 EACH TAB PO PRN ×3 (01:48→19:11)
[2019-03-27] MEDS: HYDROmorphone 1 MG/ML 1 ML SYRINGE IVP PRN ×7 (03:21→23:25)
[2019-03-27] MEDS: PANTOPRAZOLE 40 MG TABLET PO SCH (07:54)
[2019-03-27] MEDS: MORPHINE SULFATE ER 15 MG TABLET PO SCH ×2 (09:01→20:50)
--- NOTE | 2019-03-27 14:11 | P.PN ---
Subjective Progress Note Date: 03/27/19 on 03/27/2019 I'm seeing this patient to medical floor. She got transferred out of the intensive care unit. She underwent a large volume paracentesis. The ascitic fluid is improved. Abdominal distention is improved. Altered mentation. Hemodynamically stable. She is on IV Rocephin. No evidence of SBP based on the fluid analysis and the fluid cultures also negative. Objective - Vital Signs Vital signs: Vital Signs Temp 97.8 F 03/27/19 11:47 Pulse 80 03/27/19 11:47 Resp 20 03/27/19 11:47 BP 102/52 03/27/19 11:47 Pulse Ox 99 03/27/19 11:47 Intake & Output 03/26/19 03/27/19 03/27/19 18:59 06:59 18:59 Intake Total 1472.505 640 290 Output Total 1 Balance 1472.505 639 290 Intake: IV 530 640 290 Lactated Ringers 1,000 ml 480 640 240 @ 40 mls/hr IV .Q24H [facility] Rx#:[id number] cefTRIAXone 1 gm In 50 50 Sodium Chloride 0.9% 50 ml @ 100 mls/hr IVPB Q24HR [facility] Rx#:[id number] Intake, IV Titration 186.505 Amount Norepinephrine 4 mg In 186.505 Sodium Chloride 0.9% 250 ml @ 0.05 MCG/KG/MIN 13. 653 mls/hr IV .[id number] [facility] Rx#:[id number] Oral 756 Output: Urine 1 Other: Voiding Method Toilet Toilet Toilet # Voids 1 - Exam GENERAL EXAM: Alert, 53-year-old female patient who appears older than her stated age, on room air, comfortable in no apparent distress. HEAD: Normocephalic. EYES: Normal reaction of pupils, equal size. NOSE: Clear with pink turbinates. THROAT: No erythema or exudates. NECK: No masses, no JVD. CHEST: No chest wall deformity. LUNGS: Equal air entry with no crackles, wheeze, rhonchi or dullness. CVS: S1 and S2 normal with no audible murmur, regular rhythm. ABDOMEN: Distended, positive fluid wave and the amount of ascites is improved, and the patient is direct tenderness, no rebound tenderness, no guarding. SPINE: No scoliosis or deformity SKIN: No rashes CENTRAL NERVOUS SYSTEM: No focal deficits, tone is normal in all 4 extremities. EXTREMITIES: There is no peripheral edema. No clubbing, no cyanosis. Peripheral pulses are intact. - Labs CBC & Chem 7: 03/26/19 05:02 03/26/19 05:02 Labs: Microbiology - Last 24 Hours (Table) 03/24/19 11:02 Blood Culture - Preliminary Blood No Growth after 72 hours 03/25/19 14:20 Gram Stain - Preliminary Ascites Fluid Body Fluid Culture - Preliminary Assessment and Plan Plan: 1 Hypotension secondary to fluid volume shift with abdominal distention and ascites secondary to cirrhosis. no evidence of SBP. The patient's hypotension improved. The patient underwent a large volume paracentesis. She is currently back on medical floor currently on IV Rocephin. 2 Cirrhosis secondary to hepatitis C 3 History of multiple paracentesis , last was 2 days ago 4 Hypoproteinemia and albuminemia 5 History of upper GI bleed secondary to portal hypertension with eesophageal varices post banding 6 Chronic anemia 7 Acid reflux 8 History of hypertension 9 History of left-sided breast cancer status post chemo/radiation 10 Chronic and ongoing tobacco dependence 11 History of spontaneous bacterial peritonitis with acute sepsis in 2018 plan continue IV fluids at the rate of 40 mL an hour. Hemodynamically stable. Management of liver cirrhosis per Medicine. We'll sign off the case.
--- NOTE | 2019-03-27 16:45 | PN ---
PROGRESS NOTE CHIEF COMPLAINT: Abdominal pain, cirrhosis, ascites. HISTORY OF PRESENT ILLNESS: This lady is still complaining a lot of her abdominal pain. She has had the paracentesis. She is not vomiting. I was contacted on Thursday from case management regarding palliative care or hospice. PHYSICAL EXAMINATION: Unchanged. Color and continence are same and breath sounds are heard bilaterally. IMPRESSION: 1. Intractable abdominal pain. 2. Cirrhosis. 3. Hepatitis C. 4. Ascites. 5. Possible peritonitis. 6. Chronic obstructive pulmonary disease. PLAN: Continue to increase activity. When I asked her about palliative care or hospice, she became very upset and said nobody had talked to her about it. IMPRESSION: 1. Intractable ascites. 2. Intractable abdominal pain. 3. Cirrhosis. 4. Hepatitis C. 5. Carcinoma of the breast. 6. chronic obstructive pulmonary disease. PLAN: Continue to increase activity until she is strong enough to be discharged. MMODL / IJN: [id number] /
--- NOTE | 2019-03-27 18:22 | P.PN ---
Subjective Progress Note Date: 03/27/19 Principal diagnosis: Decompensated cirrhosis with ascites, hypotension, suspected SBP Patient seen lying in bed reporting less abdominal pain today. Tolerating diet. No nausea or vomiting. Objective - Vital Signs Vital signs: Vital Signs Temp 98 F 03/27/19 04:42 Pulse 66 03/27/19 04:42 Resp 18 03/27/19 04:42 BP 80/50 03/27/19 04:42 Pulse Ox 89 L 03/27/19 04:42 Intake & Output 03/26/19 03/27/19 03/27/19 18:59 06:59 18:59 Intake Total 1472.505 640 Output Total 1 Balance 1472.505 639 Intake: IV 530 640 Lactated Ringers 1,000 ml 480 640 @ 40 mls/hr IV .Q24H RAFAEL Rx#:[id number] cefTRIAXone 1 gm In 50 Sodium Chloride 0.9% 50 ml @ 100 mls/hr IVPB Q24HR RAFAEL Rx#:[id number] Intake, IV Titration 186.505 Amount Norepinephrine 4 mg In 186.505 Sodium Chloride 0.9% 250 ml @ 0.05 MCG/KG/MIN 13. 653 mls/hr IV .[id number] RAFAEL Rx#:[id number] Oral 756 Output: Urine 1 Other: Voiding Method Toilet Toilet Toilet # Voids 1 - Exam On physical examination, patient appears comfortable in no apparent distress. HEAD: Normocephalic, atraumatic. EYES: No scleral icterus. No conjunctival injection. MOUTH: No lesions, tongue midline. NECK: Trachea midline, no gross abnormalities. ABDOMEN: Soft, less distended. Bowel sounds are positive. No organomegaly. No guarding or rigidity. EXTREMITIES: No pedal edema. SKIN: No rashes, no jaundice. NEUROLOGIC: Alert and oriented x3. No asterixis noted. - Labs CBC & Chem 7: 03/26/19 05:02 03/26/19 05:02 Labs: Microbiology - Last 24 Hours (Table) 03/25/19 14:20 Gram Stain - Preliminary Ascites Fluid Body Fluid Culture - Preliminary 03/24/19 11:02 Blood Culture - Preliminary Blood No Growth after 48 hours Assessment and Plan (1) Ascites Narrative/Plan: 53-year-old female with a known history of decompensated cirrhosis secondary to hepatitis C previously treated with antiviral therapy and known history of ascit es and prior esophageal varices status post banding with last EGD in 04/2016 who presented with complaints of abdominal distention, pain and weakness. Patient was scheduled for paracentesis and was sent to the ICU due to concerns over hypotension. Concern was for possible SBP for which the patient has been on antibiotic therapy, however of note fluid studies not consistent with SBP with cultures pending. Current Visit: Yes Status: Acute Code(s): R18.8 - OTHER ASCITES SNOMED Code(s): 360365149 (2) Cirrhosis of liver Current Visit: Yes Status: Acute Code(s): K74.60 - UNSPECIFIED CIRRHOSIS OF LIVER SNOMED Code(s): 39959373 (3) Abdominal pain Current Visit: No Status: Acute Code(s): R10.9 - UNSPECIFIED ABDOMINAL PAIN SNOMED Code(s): 19739834 (4) Hepatitis C virus infection without hepatic coma Current Visit: No Status: Acute Code(s): B19.20 - UNSPECIFIED VIRAL HEPATITIS C WITHOUT HEPATIC COMA SNOMED Code(s): 92516051 (5) History of esophageal varices with bleeding Current Visit: No Status: Acute Code(s): Z87.19 - PERSONAL HISTORY OF OTHER DISEASES OF THE DIGESTIVE SYSTEM SNOMED Code(s): 149113021 Plan: Supportive care Okay for sodium restricted diet Paracentesis performed, fluid studies suggestive of a traumatic paracentesis with a large number of RBCs seen, we'll continue empiric treatment for SBP and await cultures Continue antibiotic therapy Appreciate recommendations from egg separator and infectious disease services Continue to monitor CBC, CMP Protonix 40 mg daily Thank you for allowing us to participate in the care of the patient we will continue to follow
[2019-03-27] MEDS: LACTATED RINGERS 1,000 ML IV SCH (20:06)
[2019-03-27 20:55] VITALS: RESP 16
[2019-03-28] MEDS: HYDROcodone/APAP 10-325MG 1 EACH TAB PO PRN ×2 (01:08→08:09)
[2019-03-28] MEDS: HYDROmorphone 1 MG/ML 1 ML SYRINGE IVP PRN ×3 (02:36→09:24)
[2019-03-28 05:06] VITALS: BP 99/60; PULSE 78; TEMP 96.4
[2019-03-28] MEDS: LACTATED RINGERS 1,000 ML IV SCH (08:08)
[2019-03-28] MEDS: MORPHINE SULFATE ER 15 MG TABLET PO SCH (08:09)
[2019-03-28] MEDS: PANTOPRAZOLE 40 MG TABLET PO SCH (08:09)
[2019-03-28 11:23] VITALS: BMI 25.4
[2019-03-28] MEDS ORDERED: FUROSEMIDE 20 MG TAB PO SCH (14:45)
[2019-03-28] MEDS ORDERED: SPIRONOLACTONE 25 MG TAB PO SCH (14:45)
--- NOTE | 2019-03-28 15:17 | PN ---
PROGRESS NOTE DATE OF SERVICE: 03/28/2019 Patient is a 53-year-old white female with history of cirrhosis of the liver/chronic hepatitis C infection, admitted to hospital with worsening ascites and gradual liver decompensation. She underwent paracentesis two days ago and 10 L of fluid we aspirated. She is doing much better today. She reports no symptoms. She wants to go home. PHYSICAL EXAMINATION: Appears comfortable, in no apparent distress. VITAL SIGNS: Stable. Blood pressure is 99.60, pulse is 78, temperature 96.4. HEENT: Examination unremarkable. Conjunctivae are pink, sclerae anicteric. Oral cavity no lesions. NECK: No JVD or lymph node enlargement. CHEST; Clear to auscultation. HEART: Regular rate and rhythm. ABDOMEN: Slightly distended. Bowel sounds are positive. Small amount of free fluid noted. EXTREMITIES: No pedal edema, skin no rashes. NEUROLOGIC: Alert and oriented x3. No focal deficits. LABS: From today WBC 5.9, hemoglobin 11.5, platelets 71. Basic metabolic panel is within normal limits. BUN is 22, creatinine 0.79. IMPRESSION: 1. Ascites secondary to portal hypertension, status post large-volume paracentesis and approximately 10 L of fluid aspirated 2 days ago. Patient currently on no diuretics. 2. Spontaneous bacterial peritonitis on empiric antibiotics. The patient doing better. 3. History of cirrhosis of the liver and hepatitis C infection with gradual decompensation. 4. Mild pancytopenia. RECOMMENDATIONS: 1. We will start her on Lasix 40 mg daily and Aldactone 100 mg daily. 2. Low-salt diet. 3. The patient is being discharged home today. She was advised to follow up in office in 2 weeks following discharge from the hospital. Thank you for this consultation. MMODL / IJN: [id number] /
--- NOTE | 2019-03-30 23:47 | DS ---
DISCHARGE SUMMARY CHIEF COMPLAINT: Intractable abdominal pain, cirrhosis, hepatitis C and ascites. HISTORY OF PRESENT ILLNESS AND PHYSICAL EXAM: Details of this lady's history and physical can be found in the initial workup. LABORATORY STUDIES: While she was in the hospital she had laboratories studies, details of which can be found in the laboratory section of her chart. COURSE IN HOSPITAL: After admission, she was placed on bedrest, on intravenous fluids and started on analgesics. She was seen by interventional Radiology and was eventually taken for paracentesis. The whole time she was in the hospital she complained bitterly of pain and continuously requested more frequent and higher dosages. She was stable enough and doing well. It was felt that she could go home on the and she will go home this time on Percocet 10 q.6 hours p.r.n. She will be seen in the office in several days. FINAL DIAGNOSES: 1. Intractable abdominal pain. 2. Cirrhosis. 3. Hepatitis C. 4. Intractable ascites. 5. History of peritonitis. 6. Chronic obstructive pulmonary disease. 7. Carcinoma left breast. OPERATIONS: Paracentesis. CONSULTATIONS: Interventional Radiology. She is improved. MMODL / IJN: [id number] /
== END 2019-03-28 14:30 | disposition home or self-care (01) | DRG 433 ==
LOC: EC 05:20 → 5NMEDONC 07:07 → OBSVTOIN 03-24 10:10 → 2SICU 03-24 11:38 → 5NMEDONC 03-26 23:04
PROVIDERS: ADMIT Family Medicine; ATTEND Family Medicine
PROC: 0W9G3ZZ Drainage of Peritoneal Cavity, Percutaneous Approach (ICD-10-PCS; principal; 2019-03-26)
DX: K74.60 Unspecified cirrhosis of liver (principal); K76.6 Portal hypertension; D61.818 Other pancytopenia; R18.8 Other ascites; K72.10 Chronic hepatic failure without coma; B18.2 Chronic viral hepatitis C; C50.912 Malignant neoplasm of unspecified site of left female breast; E77.8 Other disorders of glycoprotein metabolism; E86.0 Dehydration; F17.200 Nicotine dependence, unspecified, uncomplicated; G89.29 Other chronic pain; H91.90 Unspecified hearing loss, unspecified ear; I10 Essential (primary) hypertension; J44.9 Chronic obstructive pulmonary disease, unspecified; K21.9 Gastro-esophageal reflux disease without esophagitis; Z17.1 Estrogen receptor negative status [ER-]; Z80.1 Family history of malignant neoplasm of trachea, bronchus and lung; Z85.3 Personal history of malignant neoplasm of breast; Z82.49 Family history of ischemic heart disease and other diseases of the circulatory system; Z92.3 Personal history of irradiation; Z92.21 Personal history of antineoplastic chemotherapy; Z90.89 Acquired absence of other organs; Z98.890 Other specified postprocedural states
CPT/HCPCS: 36415; 49083; 71045; 80048; 80053; 82042; 82140; 82150; 82945; 83605; 83615; 83690; 84157; 85025; 85610; 85730; 87040; 87070; 87075; 87102; 87205; 89050; 96374; 96376; 99285

== ENCOUNTER 2019-09-06 04:48 | Inpatient (IN) | payer MEDICARE, OTHER ==
[2019-09-06] MEDS ORDERED: MORPHINE SULFATE 4 MG/ML SYRINGE IV STA ×2 (05:36→08:05)
--- NOTE | 2019-09-06 05:39 | ED ---
General Adult HPI - General Chief complaint: Urogenital Stated complaint: R Flank Pain Time Seen by Provider: 09/06/19 05:12 Source: patient Mode of arrival: ambulatory Limitations: no limitations - History of Present Illness Initial comments: This patient is 53-year-old woman who presents with complaint of right-sided abdominal pain. Patient is not able to characterize the pain well. She states that it came on 3 days ago although she states it is something that she gets every few months. She states that it will usually come on last about a week and then resolved. No one has been able to tolerate what is causing it. She has not discovered any worsening or relieving factors. No associated symptoms. Onset/Timin -: days(s) Consistency: constant Improves with: none Worsens with: none Associated Symptoms: denies other symptoms - Related Data Home Medications Medication Instructions Recorded Confirmed HYDROmorphone [Dilaudid] 2 mg PO Q6H PRN 09/06/19 09/06/19 Hydrocodone/Acetaminophen [[place] 1 tab PO Q6H PRN 09/06/19 09/06/19 10-325] Allergies Allergy/AdvReac Type Severity Reaction Status Date / Time No Known Allergies Allergy Verified 09/06/19 08:28 Review of Systems ROS Statement: Those systems with pertinent positive or pertinent negative responses have been documented in the HPI. ROS Other: All systems not noted in ROS Statement are negative. Constitutional: Denies: fever, chills Respiratory: Denies: cough, dyspnea Cardiovascular: Denies: chest pain, palpitations, edema Gastrointestinal: Reports: abdominal pain. Denies: nausea, vomiting, diarrhea Genitourinary: Denies: dysuria, hematuria Musculoskeletal: Denies: back pain Skin: Denies: rash Neurological: Denies: headache, weakness, numbness Past Medical History Past Medical History: Cancer, COPD, GERD/Reflux, GI Bleed, Hearing Disorder / Deafness, Liver Disease Additional Past Medical History / Comment(s): Hepatitis C, intractable ascities with multiple paracentesis, cirrhosis, peritonitis, pancytopenia, vertigo once; multiple upper GI bleeds, esophageal varicies/esophageal banding, left breast c ancer had chemo last on 09-12-16-did not tolerate-completed only 3 cycles-then it was stopped/received radiation treatments/no surgery yet but pt states she is to get a MRI to see if she can have surgery, lt ear deafness, R ear [place]. History of Any Multi-Drug Resistant Organisms: None Reported Past Surgical History: Adenoidectomy, Breast Surgery, Tonsillectomy Additional Past Surgical History / Comment(s): Multiple paracentesises, EGDs, esophageal banding, right chest mediport 517, l breast bx., Past Anesthesia/Blood Transfusion Reactions: No Reported Reaction Additional Past Anesthesia/Blood Transfusion Reaction / Comment(s): blood transfusions- no reaction Past Psychological History: No Psychological Hx Reported, Anxiety Smoking Status: Current every day smoker Past Alcohol Use History: None Reported Past Drug Use History: None Reported - Past Family History Mother Family Medical History: Cancer Additional Family Medical History / Comment(s): of lung ca at the age of 59yrs. She was a smoker. Father Family Medical History: Myocardial Infarction ([place]) Additional Family Medical History / Comment(s): from 2nd heart attack at the age of 59yrs. General Exam Limitations: no limitations General appearance: alert, in no apparent distress Head exam: Present: atraumatic, normocephalic Eye exam: Present: normal appearance. Absent: scleral icterus, conjunctival injection Respiratory exam: Present: normal lung sounds bilaterally. Absent: respiratory distress, wheezes, rales, rhonchi, stridor Cardiovascular Exam: Present: regular rate, normal rhythm, normal heart sounds. Absent: systolic murmur, diastolic murmur, rubs, gallop GI/Abdominal exam: Present: soft, tenderness (Lower quadrant). Absent: distended, guarding, rebound, rigid, mass Extremities exam: Present: normal inspection, normal capillary refill. Absent: pedal edema, calf tenderness Back exam: Present: normal inspection. Absent: CVA tenderness (R), CVA tenderness (L) Neurological exam: Present: alert Skin exam: Present: warm, dry, intact, normal color. Absent: rash Course Vital Signs 09/06/19 09/06/19 09/06/19 04:52 05:50 06:42 Temperature 97.9 F Pulse Rate 86 76 Respiratory 18 16 16 Rate Blood Pressure 134/80 98/81 O2 Sat by Pulse 98 97 Oximetry 09/06/19 09/06/19 09/06/19 07:59 08:00 09:00 Temperature Pulse Rate 77 Respiratory 18 Rate Blood Pressure 98/81 122/77 117/84 O2 Sat by Pulse 97 96 92 L Oximetry 09/06/19 09/06/19 09/06/19 10:00 10:02 11:00 Temperature Pulse Rate 78 Respiratory 18 Rate Blood Pressure 114/65 120/76 120/76 O2 Sat by Pulse 95 98 94 L Oximetry 09/06/19 09/06/19 09/06/19 11:40 12:00 13:00 Temperature Pulse Rate 75 Respiratory 18 Rate Blood Pressure 120/76 124/79 117/70 O2 Sat by Pulse 100 94 L 95 Oximetry 09/06/19 14:00 Temperature Pulse Rate 73 Respiratory 18 Rate Blood Pressure 117/70 O2 Sat by Pulse 94 L Oximetry Medical Decision Making - Lab Data Result diagrams: 09/06/19 06:23 09/06/19 06:23 Lab Results 09/06/19 09/06/19 09/06/19 Range/Units 05:09 06:23 06:23 WBC 2.3 L (3.8-10.6) k/uL RBC 3.41 L (3.80-5.40) m/uL Hgb 12.2 (11.4-16.0) gm/dL Hct 36.7 (34.0-46.0) % MCV 107.5 H (80.0-100.0) fL MCH 35.9 H (25.0-35.0) pg MCHC 33.4 (31.0-37.0) g/dL RDW 14.2 (11.5-15.5) % Plt Count 42 L (150-450) k/uL Neutrophils % 46 % Lymphocytes % 36 % Monocytes % 10 % Eosinophils % 5 % Basophils % 0 % Neutrophils # 1.0 L (1.3-7.7) k/uL Lymphocytes # 0.8 L (1.0-4.8) k/uL Monocytes # 0.2 (0-1.0) k/uL Eosinophils # 0.1 (0-0.7) k/uL Basophils # 0.0 (0-0.2) k/uL Manual Slide Review Performed Hypochromasia (manual) Present Anisocytosis (manual) Present Macrocytosis Moderate Sodium 135 L (137-145) mmol/L Potassium 4.0 (3.5-5.1) mmol/L Chloride 106 (98-107) mmol/L Carbon Dioxide 27 (22-30) mmol/L Anion Gap 2 mmol/L BUN 14 (7-17) mg/dL Creatinine 0.62 (0.52-1.04) mg/dL Est GFR (CKD-EPI)AfAm >90 (>60 ml/min/1.73 sqM) Est GFR (CKD-EPI)NonAf >90 (>60 ml/min/1.73 sqM) Glucose 102 H (74-99) mg/dL Plasma Lactic Acid [place] (0.7-2.0) mmol/L Calcium 8.5 (8.4-10.2) mg/dL Total Bilirubin 1.7 H (0.2-1.3) mg/dL AST 35 (14-36) U/L ALT 13 (4-34) U/L Alkaline Phosphatase 99 (38-126) U/L Total Protein 7.4 (6.3-8.2) g/dL Albumin 3.1 L (3.5-5.0) g/dL Amylase 32 (30-110) U/L Lipase 59 (23-300) U/L Urine Color Yellow Urine Appearance Cloudy H (Clear) Urine pH 5.5 (5.0-8.0) Ur Specific [place] 1.024 (1.001-1.035) Urine Protein Trace H (Negative) Urine Glucose (UA) Negative (Negative) Urine Ketones Trace H (Negative) Urine Blood Trace H (Negative) Urine Nitrite Negative (Negative) Urine Bilirubin Negative (Negative) Urine Urobilinogen 6.0 (<2.0) mg/dL Ur Leukocyte Esterase Moderate H (Negative) Urine RBC 1 (0-5) /hpf Urine WBC 7 H (0-5) /hpf Ur Squamous Epith Cells 25 H (0-4) /hpf Urine Mucus Many H (None) /hpf 09/06/19 Range/Units 06:23 WBC (3.8-10.6) k/uL RBC (3.80-5.40) m/uL Hgb (11.4-16.0) gm/dL Hct (34.0-46.0) % MCV (80.0-100.0) fL MCH (25.0-35.0) pg MCHC (31.0-37.0) g/dL RDW (11.5-15.5) % Plt Count (150-450) k/uL Neutrophils % % Lymphocytes % % Monocytes % % Eosinophils % % Basophils % % Neutrophils # (1.3-7.7) k/uL Lymphocytes # (1.0-4.8) k/uL Monocytes # (0-1.0) k/uL Eosinophils # (0-0.7) k/uL Basophils # (0-0.2) k/uL Manual Slide Review Hypochromasia (manual) Anisocytosis (manual) Macrocytosis Sodium (137-145) mmol/L Potassium (3.5-5.1) mmol/L Chloride (98-107) mmol/L Carbon Dioxide (22-30) mmol/L Anion Gap mmol/L BUN (7-17) mg/dL Creatinine (0.52-1.04) mg/dL Est GFR (CKD-EPI)AfAm (>60 ml/min/1.73 sqM) Est GFR (CKD-EPI)NonAf (>60 ml/min/1.73 sqM) Glucose (74-99) mg/dL Plasma Lactic Acid [place] 1.1 (0.7-2.0) mmol/L Calcium (8.4-10.2) mg/dL Total Bilirubin (0.2-1.3) mg/dL AST (14-36) U/L ALT (4-34) U/L Alkaline Phosphatase (38-126) U/L Total Protein (6.3-8.2) g/dL Albumin (3.5-5.0) g/dL Amylase (30-110) U/L Lipase (23-300) U/L Urine Color Urine Appearance (Clear) Urine pH (5.0-8.0) Ur Specific [place] (1.001-1.035) Urine Protein (Negative) Urine Glucose (UA) (Negative) Urine Ketones (Negative) Urine Blood (Negative) Urine Nitrite (Negative) Urine Bilirubin (Negative) Urine Urobilinogen (<2.0) mg/dL Ur Leukocyte Esterase (Negative) Urine RBC (0-5) /hpf Urine WBC (0-5) /hpf Ur Squamous Epith Cells (0-4) /hpf Urine Mucus (None) /hpf Disposition Clinical Impression: Ascites of liver, Intractable abdominal pain Disposition: ADMITTED IP TO THIS [facility] Condition: Stable
[2019-09-06 05:46] LABS: Appearance,Urine Cloudy (Clear); Bilirubin,Urine Negative (Negative); Blood,Urine Trace (Negative); Color,Urine Yellow; Glucose,Urine (UA) Negative (Negative); Ketones,Urine Trace (Negative); Leukocyte Esterase,Urine Moderate (Negative); Mucus,Urine Many /hpf; Nitrite,Urine Negative (Negative); PH, Urine 5.5 (5.0-8.0); Protein,Urine Trace (Negative); RBC,Urine 1 /hpf (0-5); Specific Gravity,Urine 1.024 (1.001-1.035); Squamous Epithelial Cell,Urine 25 /hpf (0-4); WBC,Urine 7 /hpf (0-5)
[2019-09-06 06:41] LABS: Basophils % (A) 0 %; Eosinophils # (A) 0.1 k/uL (0-0.7); Eosinophils % (A) 5 %; HCT 36.7 % (34.0-46.0); HGB 12.2 gm/dL (11.4-16.0); Lymphocytes # (A) 0.8 k/uL (1.0-4.8); Lymphocytes % (A) 36 %; MCH 35.9 pg (25.0-35.0); MCHC 33.4 g/dL (31.0-37.0); MCV 107.5 fL (80.0-100.0); Macrocytosis Moderate; Mean Platelet Volume 8.8; Monocytes # (A) 0.2 k/uL (0-1.0); Monocytes % (A) 10 %; Neutrophils % (A) 46 %; RBC 3.41 m/uL (3.80-5.40); RDW 14.2 % (11.5-15.5); WBC 2.3 k/uL (3.8-10.6)
[2019-09-06 06:54] LABS: ALT 13 U/L (4-34); AST 35 U/L (14-36); African American GFR (CKD) >90 (>60 ml/min/1.73 sqM); Albumin 3.1 g/dL (3.5-5.0); Alkaline Phosphatase 99 U/L (38-126); Amylase 32 U/L (30-110); Anion Gap 2 mmol/L; Blood Urea Nitrogen 14 mg/dL (7-17); Calcium 8.5 mg/dL (8.4-10.2); Carbon Dioxide 27 mmol/L (22-30); Chloride 106 mmol/L (98-107); Glucose 102 mg/dL (74-99); Non-African American GFR(CKD) >90 (>60 ml/min/1.73 sqM); Sodium 135 mmol/L (137-145); Total Bilirubin 1.7 mg/dL (0.2-1.3); Total Protein 7.4 g/dL (6.3-8.2)
[2019-09-06 06:59] LABS: Platelet Count 42 k/uL (150-450)
[2019-09-06 07:00] LABS: Anisocytosis (M) Present; Hypochromasia (M) Present
--- NOTE | 2019-09-06 07:48 | CT ---
EXAM: CT Abdomen and Pelvis Without Intravenous Contrast CLINICAL HISTORY: ITS.REASON CT Reason: RLQ pain TECHNIQUE: Axial computed tomography images of the abdomen and pelvis without intravenous contrast. CTDI is 9 mGy and DLP is 500 mGy-cm. This CT exam was performed using one or more of the following dose reduction techniques: automated exposure control, adjustment of the mA and/or kV according to patient size, and/or use of iterative reconstruction technique. COMPARISON: 09/06/2018 FINDINGS: Lung bases: No mass. No consolidation. ABDOMEN: Liver: Nodular liver. Gallbladder and bile ducts: Few stones.. Pancreas: No ductal dilation. Spleen: Enlarged. Adrenals: Unremarkable. Kidneys and ureters: No obstructing stones. No hydronephrosis. Nonobstructive stone bilaterally. Stomach and bowel: No bowel obstruction. Thickened appearing duodenum. Mild colonic diverticulosis. Copious amounts of stool. PELVIS: Appendix: Not identified. Bladder: No stones. Reproductive: Unremarkable. ABDOMEN and PELVIS: Intraperitoneal space: Severe ascites. Bones/joints: No acute fractures. Soft tissues: Unremarkable. Vasculature: No abdominal aortic aneurysm. Decreased density of the blood pool. Lymph nodes: No enlarged lymph nodes. IMPRESSION: 1. Evidence of portal hypertension as demonstrated by cirrhosis, splenomegaly, and severe ascites. 2. Cholelithiasis. 3. Nonobstructive nephrolithiasis bilaterally. No hydronephrosis. 4. Appendix is not identified given limitation of severe ascites and noncontrast study. 5. Mild colonic diverticulosis. Copious amounts of stool. 6. Thickened appearing duodenum, correlate with duodenitis versus under distention. 7. Decreased density of the blood pool consistent with anemia.
[2019-09-06] MEDS ORDERED: NALOXONE 0.4 MG/ML 1 ML VIAL IV PRN (08:05)
[2019-09-06] MEDS: MORPHINE SULFATE 4 MG/ML SYRINGE IV PRN ×3 (12:25→22:37)
[2019-09-06] MEDS ORDERED: ARTIFICIAL TEARS-HYPROMELLOSE DROPS 15 ML BTL BOTH EYES PRN (16:49)
[2019-09-06] MEDS: HYDROmorphone 2 MG TAB PO PRN (21:57)
[2019-09-07] MEDS: HYDROcodone/APAP 10-325MG 1 EACH TAB PO PRN ×3 (01:47→23:12)
[2019-09-07] MEDS: MORPHINE SULFATE 4 MG/ML SYRINGE IV PRN ×3 (02:28→19:54)
[2019-09-07] MEDS: HYDROmorphone 2 MG TAB PO PRN ×2 (07:30→18:18)
--- NOTE | 2019-09-07 07:40 | P.GSCN ---
History of Present Illness Consult date: 09/06/19 Reason for Consult: Mediport eroded Requesting physician: Jose Jimenez History of present illness: CHIEF COMPLAINT: Mediport eroded through the skin HISTORY OF PRESENT ILLNESS: 53-year-old female who presented to emergency room with a chief complaint of abdominal pain. General surgery was consulted to evaluate patient's Mediport. PAST MEDICAL HISTORY: See list. PAST SURGICAL HISTORY: See list. SOCIAL HISTORY: No illicit drug use. REVIEW OF SYSTEMS: CONSTITUTIONAL: Denies fever or chills. HEENT: Denies blurred vision, vision changes, or eye pain. Denies hemoptysis CARDIOVASCULAR: Denies chest pain or pressure. RESPIRATORY: No shortness of breath. GASTROINTESTINAL: Refer to HPI for pertinent findings HEMATOLOGIC: Denies bleeding disorders. GENITOURINARY: Denies any blood in urine. SKIN: Denies pruitis. Denies rash. PHYSICAL EXAM: VITAL SIGNS: Reviewed. GENERAL: Well-developed in no acute distress. HEENT: No sclera icterus. Extraocular movements grossly intact. Moist buccal mucosa. Head is atraumatic, normocephalic. ABDOMEN: Soft. Nondistended. Nontender. NEUROLOGIC: Alert and oriented. Cranial nerves II through XII grossly intact. SKIN: Right chest mediport eroded through the skin LABORATORY DATA: WBC 2.3. Hemoglobin 12.2. Platelet count 42. IMAGING: CT abdomen and pelvis: Evidence of portal hypertension as done inserted by cirrhosis, splenomegaly, and severe ascites. Cholelithiasis. Nonobstructive nephrolithiasis bilaterally. Appendix is not identified given limitation of severe ascites. Mild colonic diverticulosis. Copious amounts of stool. Thickened appearing duodenum. ASSESSMENT: 1. Mediport eroded through skin PLAN: Dr. Mosquera will remove patient's Mediport tomorrow at the bedside Nurse practitioner note has been reviewed by physician. Signing provider agrees with the documented findings, assessment, and plan of care. Past Medical History Past Medical History: Cancer, COPD, GERD/Reflux, GI Bleed, Hearing Disorder / Deafness, Liver Disease Additional Past Medical History / Comment(s): Hepatitis C, intractable ascities with multiple paracentesis, cirrhosis, peritonitis, pancytopenia, vertigo once; multiple upper GI bleeds, esophageal varicies/esophageal banding, left breast cancer had chemo last on 09-12-16-did not tolerate-completed only 3 cycles-then it was stopped/received radiation treatments/no surgery yet but pt states she is to get a MRI to see if she can have surgery, lt ear deafness, R ear [place]. History of Any Multi-Drug Resistant Organisms: None Reported Past Surgical History: Adenoidectomy, Breast Surgery, Tonsillectomy Additional Past Surgical History / Comment(s): Multiple paracentesises, EGDs, esophageal banding, right chest mediport 5-17, l breast bx., Past Anesthesia/Blood Transfusion Reactions: No Reported Reaction Additional Past Anesthesia/Blood Transfusion Reaction / Comm: blood transfusions- no reaction Past Psychological History: No Psychological Hx Reported, Anxiety Smoking Status: Current every day smoker Past Alcohol Use History: None Reported Past Drug Use History: None Reported - Past Family History Mother Family Medical History: Cancer Additional Family Medical History / Comment(s): of lung ca at the age of 59yrs. She was a smoker. Father Family Medical History: Myocardial Infarction ([place]) Additional Family Medical History / Comment(s): from 2nd heart attack at the age of 59yrs. Medications and Allergies Home Medications Medication Instructions Recorded Confirmed Type HYDROmorphone [Dilaudid] 2 mg PO Q6H PRN 09/06/19 09/06/19 History Hydrocodone/Acetaminophen [[place] 1 tab PO Q6H PRN 09/06/19 09/06/19 History 10-325] Allergies Allergy/AdvReac Type Severity Reaction Status Date / Time No Known Allergies Allergy Verified 09/06/19 08:28 Surgical - Exam Vital Signs Temp Pulse Resp BP Pulse Ox 97.9 F 86 18 134/80 98 09/06/19 04:52 09/06/19 04:52 09/06/19 04:52 09/06/19 04:52 09/06/19 04:52 Results - Labs 09/06/19 06:23 09/06/19 06:23 Abnormal Lab Results - Last 24 Hours (Table) 09/06/19 09/06/19 09/06/19 Range/Units 05:09 06:23 06:23 WBC 2.3 L (3.8-10.6) k/uL RBC 3.41 L (3.80-5.40) m/uL MCV 107.5 H (80.0-100.0) fL MCH 35.9 H (25.0-35.0) pg Plt Count 42 L (150-450) k/uL Neutrophils # 1.0 L (1.3-7.7) k/uL Lymphocytes # 0.8 L (1.0-4.8) k/uL Sodium 135 L (137-145) mmol/L Glucose 102 H (74-99) mg/dL Total Bilirubin 1.7 H (0.2-1.3) mg/dL Albumin 3.1 L (3.5-5.0) g/dL Urine Appearance Cloudy H (Clear) Urine Protein Trace H (Negative) Urine Ketones Trace H (Negative) Urine Blood Trace H (Negative) Ur Leukocyte Esterase Moderate H (Negative) Urine WBC 7 H (0-5) /hpf Ur Squamous Epith Cells 25 H (0-4) /hpf Urine Mucus Many H (None) /hpf Diabetes panel 09/06/19 Range/Units 06:23 Sodium 135 L (137-145) mmol/L Potassium 4.0 (3.5-5.1) mmol/L Chloride 106 (98-107) mmol/L Carbon Dioxide 27 (22-30) mmol/L BUN 14 (7-17) mg/dL Creatinine 0.62 (0.52-1.04) mg/dL Glucose 102 H (74-99) mg/dL Calcium 8.5 (8.4-10.2) mg/dL AST 35 (14-36) U/L ALT 13 (4-34) U/L Alkaline Phosphatase 99 (38-126) U/L Total Protein 7.4 (6.3-8.2) g/dL Albumin 3.1 L (3.5-5.0) g/dL Calcium panel 09/06/19 Range/Units 06:23 Calcium 8.5 (8.4-10.2) mg/dL Albumin 3.1 L (3.5-5.0) g/dL Pituitary panel 09/06/19 Range/Units 06:23 Sodium 135 L (137-145) mmol/L Potassium 4.0 (3.5-5.1) mmol/L Chloride 106 (98-107) mmol/L Carbon Dioxide 27 (22-30) mmol/L BUN 14 (7-17) mg/dL Creatinine 0.62 (0.52-1.04) mg/dL Glucose 102 H (74-99) mg/dL Calcium 8.5 (8.4-10.2) mg/dL Adrenal panel 09/06/19 Range/Units 06:23 Sodium 135 L (137-145) mmol/L Potassium 4.0 (3.5-5.1) mmol/L Chloride 106 (98-107) mmol/L Carbon Dioxide 27 (22-30) mmol/L BUN 14 (7-17) mg/dL Creatinine 0.62 (0.52-1.04) mg/dL Glucose 102 H (74-99) mg/dL Calcium 8.5 (8.4-10.2) mg/dL Total Bilirubin 1.7 H (0.2-1.3) mg/dL AST 35 (14-36) U/L ALT 13 (4-34) U/L Alkaline Phosphatase 99 (38-126) U/L Total Protein 7.4 (6.3-8.2) g/dL Albumin 3.1 L (3.5-5.0) g/dL
[2019-09-07] MEDS ORDERED: LORazepam 2 MG/ML INJ ONE (09:45)
--- NOTE | 2019-09-07 09:58 | P.OP ---
Date of Procedure: 09/07/19 Preoperative Diagnosis: Right internal jugular Port-A-Cath chest wall erosion Postoperative Diagnosis: Same Procedure(s) Performed: Removal of right chest wall Port-A-Cath Anesthesia: local Surgeon: Freddy Mosquera Estimated Blood Loss (ml): 5 Pathology: none sent Condition: stable Disposition: floor Description of Procedure: The patient's placed her bed in the supine position. Her right chest was prepped and draped usual sterile fashion. The Port-A-Cath was partially eroded through the skin. The silicone membrane was totally visualized. The skin around Port-A-Cath was anesthetized and then an 11 blade was used to incise the skin at the Port-A-Cath hub. Then using blunt and sharp dissection the Port-A-Cath was excised from the chest wall. There is no significant bleeding. Sterile dressing applied. Patient tolerated the procedure well.
--- NOTE | 2019-09-07 16:55 | PN ---
PROGRESS NOTE CHIEF COMPLAINT: Right upper quadrant pain, cirrhosis, ascites and port eroding through skin on her right chest. HISTORY OF PRESENT ILLNESS: This lady is going to have her port removed today. Her abdominal pain has improved and it is actually not any different than her usual pain. PHYSICAL EXAMINATION: Chest demonstrates decreased breath sounds due to her COPD. Cardiac exam is normal. The abdomen is protuberant and tender with ascites. IMPRESSION: 1. Hepatitis C with cirrhosis and portal hypertension. 2. Intractable ascites. 3. Erosion of port through skin on the right chest. PLAN: Surgery today and then probably home. MMODL / IJN: [id number] /
--- NOTE | 2019-09-07 16:55 | HP ---
HISTORY AND PHYSICAL CHIEF COMPLAINT: Abdominal distention and right upper quadrant pain. HISTORY OF PRESENT ILLNESS: This is another admission for this 53-year-old female who has a long standing history of hepatitis C with cirrhosis and intractable ascites. She has actually had this fairly well controlled of late. She came in the emergency room because she was having pain in the right upper quadrant and also because she had run out of her pain medication. She takes Dilaudid and Vicodin at home. She has been told that she must strictly adhere to taking only the number of medications that were prescribed to her each month. However, she states, "because I have been having more pain, I had did take more of the pain medication." She has had no vomiting, hematemesis, melena, hematochezia, fever and chills, urinary complaints, etc. She has had a malignancy of the left breast which has been treated with surgery and radiation. REVIEW OF SYSTEMS: She has had no other complaints. She has had no neurologic problems, chest pain, cough, hemoptysis, jaundice, renal failure, dysuria, hematuria, incontinence, etc. Past medical history, family history,. personal and social histories are all otherwise unremarkable or unchanged from her recent admitting and discharge summaries. She is a fairly noncompliant individual. PHYSICAL EXAM: The blood pressure is 98/54 with a pulse of 60, respirations of 32, and she is afebrile. In general, she appeared to be chronically ill. Skin color was poor. Head, ears, eyes, nose, mouth, and throat were unremarkable. Neck veins are not distended. The chest was clear to auscultation and percussion, but breath sounds are diminished. Cardiac exam demonstrated sinus rhythm and no murmurs or extra sounds. Abdomen is protuberant with ascites and she did have some tenderness in the right upper quadrant. Liver could not be palpated. Extremities demonstrated very poor muscle bulk and there is no edema. Neurologically she is intact. She is admitted to the hospital with diagnoses: 1. Right upper quadrant pain. 2. Intractable ascites. 3. Hepatitis C with cirrhosis and portal hypertension. 4. Chronic obstructive pulmonary disease and nicotine abuse. 5. Eruption of port in right chest. PLAN: 1. Evaluate CT the abdomen. 2. Surgical consult for removing port. MMODL / IJN: [id number] /
[2019-09-08] MEDS: HYDROmorphone 2 MG TAB PO PRN ×2 (00:17→06:59)
[2019-09-08] MEDS: MORPHINE SULFATE 4 MG/ML SYRINGE IV PRN ×2 (02:02→05:58)
[2019-09-08] MEDS: HYDROcodone/APAP 10-325MG 1 EACH TAB PO PRN (05:20)
[2019-09-08 08:16] VITALS: BP 107/63; PULSE 85; RESP 12
[2019-09-08 08:18] VITALS: TEMP 98
--- NOTE | 2019-09-08 16:19 | DS ---
DISCHARGE SUMMARY CHIEF COMPLAINT: Chest and abdominal pain. HISTORY OF PRESENT ILLNESS AND PHYSICAL EXAMINATION: Details of this lady's history and physical can be found in the initial workup. LABORATORY STUDIES: While she was in the hospital she had laboratory studies, details of which can be found in the laboratory section of her chart. COURSE IN THE HOSPITAL: After admission she was placed on bedrest, started intravenous fluids and seen by General Surgery for the abdominal pain. She had a port in the right upper anterior chest which was eroding through the skin. It actually turns out that she came to the emergency room for a refill of her pain medication because she has been taking more than prescribed and had run out short of the month's worth that she had been given. Surgery removed the port from her chest and it was felt that she could be discharged. She will follow up in the office right away and we will refill her narcotics. FINAL DIAGNOSES: 1. Right upper quadrant pain. 2. Hepatitis C. 3. Cirrhosis. 4. Hypertension. 5. Ascites. 6. Chronic obstructive pulmonary disease. 7. History of carcinoma of the breast. 8. Port eroding through skin on right chest wall. OPERATION: Removal of port. CONSULTATION: Surgery. She is improved. MMODL / IJN: [id number] /
== END 2019-09-08 11:17 | disposition home or self-care (01) | DRG 948 ==
LOC: EC 04:48 → 5NMEDONC 08:05 → 1SOBS 09-07 17:26 → OBSVTOIN 09-08 07:30
PROVIDERS: ADMIT Family Medicine; ATTEND Family Medicine
PROC: 0JPT0WZ Removal of Totally Implantable Vascular Access Device from Trunk Subcutaneous Tissue and Fascia, Open Approach (ICD-10-PCS; principal; 2019-09-07)
PROC: 05PYX3Z Removal of Infusion Device from Upper Vein, External Approach (ICD-10-PCS; principal; 2019-09-07)
DX: R18.8 Other ascites (principal); K76.6 Portal hypertension; I85.10 Secondary esophageal varices without bleeding; T82.898A Other specified complication of vascular prosthetic devices, implants and grafts, initial encounter; K74.60 Unspecified cirrhosis of liver; C50.812 Malignant neoplasm of overlapping sites of left female breast; B19.20 Unspecified viral hepatitis C without hepatic coma; K80.20 Calculus of gallbladder without cholecystitis without obstruction; N20.0 Calculus of kidney; K57.30 Diverticulosis of large intestine without perforation or abscess without bleeding; I10 Essential (primary) hypertension; J44.9 Chronic obstructive pulmonary disease, unspecified; K21.9 Gastro-esophageal reflux disease without esophagitis; H91.93 Unspecified hearing loss, bilateral; F17.210 Nicotine dependence, cigarettes, uncomplicated; Z71.6 Tobacco abuse counseling; Z86.2 Personal history of diseases of the blood and blood-forming organs and certain disorders involving the immune mechanism; Z87.19 Personal history of other diseases of the digestive system; Z92.21 Personal history of antineoplastic chemotherapy; Z92.3 Personal history of irradiation; Z90.89 Acquired absence of other organs; Z98.890 Other specified postprocedural states; Y83.1 Surgical operation with implant of artificial internal device as the cause of abnormal reaction of the patient, or of later complication, without mention of misadventure at the time of the procedure; Z80.1 Family history of malignant neoplasm of trachea, bronchus and lung; Z81.2 Family history of tobacco abuse and dependence; Z82.49 Family history of ischemic heart disease and other diseases of the circulatory system
CPT/HCPCS: 36415; 74176; 80053; 81001; 82150; 83605; 83690; 85025; 96374; 96376; 99285

== ENCOUNTER 2019-09-08 22:15 | Emergency (ER) | payer MEDICARE, OTHER ==
[2019-09-08] MEDS ORDERED: HYDROcodone/APAP 7.5-325MG 1 EACH TAB PO ONE (23:21)
[2019-09-08] MEDS ORDERED: HYDROmorphone 2 MG TAB PO STA (23:21)
--- NOTE | 2019-09-08 23:25 | ED ---
Abdominal Pain HPI - General Chief Complaint: Abdominal Pain Stated Complaint: Flank pain Time Seen by Provider: 09/08/19 22:29 Source: patient Mode of arrival: ambulatory Limitations: no limitations - History of Present Illness Initial Comments: Lori is a 53-year-old female with a history of hep C recurrent ascites and chronic pain. Patient is on a home pain management regimen of oral Dilaudid and [place]. Patient was admitted to the hospital 3 days ago with ascites and abdominal pain at that time she was out of her medications for the month due to taking extra pills. Patient spent 2 days in the hospital she did have a paracentesis with improvement in her ascites. Patient was discharged earlier today with new prescriptions however when she went to the pharmacy the pharmacist would not refill her prescriptions because it was too early she can have them refilled tomorrow. Patient presented back to the ER today because she doesn't have her home pain medications. Patient's requesting to be admitted so she can get her pain medications throughout the night. - Related Data Home Medications Medication Instructions Recorded Confirmed HYDROmorphone [Dilaudid] 2 mg PO Q6H PRN 09/06/19 09/06/19 Hydrocodone/Acetaminophen [[place] 1 tab PO Q6H PRN 09/06/19 09/06/19 10-325] Allergies Allergy/AdvReac Type Severity Reaction Status Date / Time No Known Allergies Allergy Verified 09/08/19 22:17 Review of Systems ROS Statement: Those systems with pertinent positive or pertinent negative responses have been documented in the HPI. ROS Other: All systems not noted in ROS Statement are negative. Past Medical History Past Medical History: Cancer, COPD, GERD/Reflux, GI Bleed, Hearing Disorder / Deafness, Liver Disease Additional Past Medical History / Comment(s): Hepatitis C, intractable ascities with multiple paracentesis, cirrhosis, peritonitis, pancytopenia, vertigo once; multiple upper GI bleeds, esophageal varicies/esophageal banding, left breast cancer had chemo last on 09-12-16-did not tolerate-completed only 3 cycles-then it was stopped/received radiation treatments/no surgery yet but pt states she is to get a MRI to see if she can have surgery, lt ear deafness, R ear [place]. History of Any Multi-Drug Resistant Organisms: None Reported Past Surgical History: Adenoidectomy, Breast Surgery, Tonsillectomy Additional Past Surgical History / Comment(s): Multiple paracentesises, EGDs, esophageal banding, right chest mediport 5-17, l breast bx., Past Anesthesia/Blood Transfusion Reactions: No Reported Reaction Additional Past Anesthesia/Blood Transfusion Reaction / Comment(s): blood transfusions- no reaction Past Psychological History: No Psychological Hx Reported, Anxiety Smoking Status: Current every day smoker Past Alcohol Use History: None Reported Past Drug Use History: None Reported - Past Family History Mother Family Medical History: Cancer Additional Family Medical History / Comment(s): of lung ca at the age of 59yrs. She was a smoker. Father Family Medical History: Myocardial Infarction ([place]) Additional Family Medical History / Comment(s): from 2nd heart attack at the age of 59yrs. General Exam - General Exam Comments Initial Comments: Physical Exam GENERAL: Chronically ill-appearing female appears much older than stated age HENT: Normocephalic, Atraumatic. EYES: PERRL, EOMI No scleral icterus PULMONARY: Unlabored respirations. CARDIOVASCULAR: RRR Warm and well perfused extremities ABDOMEN: Non-distended SKIN: No rashes or bruising : Deferred NEUROLOGIC: Alert and oriented Normal speech Normal gait MUSCULOSKELETAL: Moving all extremities with no apparent injury PSYCHIATRIC: No SI/HI Limitations: no limitations Course Vital Signs 09/08/19 09/08/19 22:17 23:44 Temperature 98.4 F 98.5 F Pulse Rate 88 81 Respiratory 18 20 Rate Blood Pressure 130/78 129/74 O2 Sat by Pulse 98 98 Oximetry Medical Decision Making - Medical Decision Making The patient was seen and evaluated history is obtained from patient reported no new complaints, her chronic pain is not managed due to running out of her medications early from taking extra pain pills throughout the month patient insisted that her primary care told her she could be admitted I discussed this with her primary care Dr. Estrada who advised she absolutely cannot be admitted for this. I will give her a dose of her home medication subsequent discharge home she can have her medications refilled tomorrow morning. Dr. Estrada was in agreement with this plan. Disposition Clinical Impression: Chronic abdominal pain Disposition: HOME SELF-CARE Condition: Stable Instructions (If sedation given, give patient instructions): Acute Abdominal Pain (ED) Additional Instructions: Have your home medications filled tomorrow Is patient prescribed a controlled substance at d/c from ED?: No Referrals: Mark Estrada MD [Primary Care Provider] - 1-2 days
[2019-09-08 23:46] VITALS: BP 129/74; PULSE 81; RESP 20; TEMP 98.5
== END 2019-09-09 00:06 | disposition home or self-care (01) ==
LOC: EC 22:15
DX: G89.29 Other chronic pain (principal); R10.9 Unspecified abdominal pain; B19.20 Unspecified viral hepatitis C without hepatic coma; R18.8 Other ascites; Z79.891 Long term (current) use of opiate analgesic; F17.200 Nicotine dependence, unspecified, uncomplicated; Z85.3 Personal history of malignant neoplasm of breast; Z92.3 Personal history of irradiation; Z91.14 Patient's other noncompliance with medication regimen; Z98.890 Other specified postprocedural states

== ENCOUNTER 2019-10-10 07:29 | Emergency (ER) | payer MEDICARE, OTHER ==
[2019-10-10 07:36] VITALS: BP 137/75; PULSE 83; RESP 18; TEMP 98.2
[2019-10-10] MEDS ORDERED: HYDROmorphone 1 MG/ML 1 ML SYRINGE IM STA (07:52)
--- NOTE | 2019-10-10 07:55 | ED ---
General Adult HPI - General Chief complaint: Abdominal Pain Stated complaint: side pain Time Seen by Provider: 10/10/19 07:30 Source: patient, RN notes reviewed, old records reviewed Mode of arrival: ambulatory Limitations: no limitations - History of Present Illness Initial comments: This is a 54-year-old female with past medical history significant for hepatitis C cirrhosis of the liver and breast cancer. Patient states she always has chronic right sided pain where her liver is. Patient states she ran out of pain medicine yesterday. Patient has a 30 day supply it was a 31 and a month and she has an appointment at 1:00 to get her pain medication refill. Patient states she doesn't have any new symptoms and she does not want any type of workup she's just asking for a pain shot so she can make it to a 1:00 appointment. Patient denies any fever chills per patient denies any chest pain difficulty breathing shortness of breath. Patient denies any vomiting or diarrhea. Patient states the pain in the right upper quadrant area pain she has had for months - Related Data Home Medications Medication Instructions Recorded Confirmed HYDROmorphone [Dilaudid] 2 mg PO Q6H PRN 09/06/19 09/06/19 Hydrocodone/Acetaminophen [[place] 1 tab PO Q6H PRN 09/06/19 09/06/19 10-325] Allergies Allergy/AdvReac Type Severity Reaction Status Date / Time No Known Allergies Allergy Verified 09/08/19 22:17 Review of Systems ROS Statement: Those systems with pertinent positive or pertinent negative responses have been documented in the HPI. ROS Other: All systems not noted in ROS Statement are negative. Past Medical History Past Medical History: Cancer, COPD, GERD/Reflux, GI Bleed, Hearing Disorder / Deafness, Liver Disease Additional Past Medical History / Comment(s): Hepatitis C, intractable ascities with multiple paracentesis, cirrhosis, peritonitis, pancytopenia, vertigo once; multiple upper GI bleeds, esophageal varicies/esophageal banding, left breast cancer had chemo last on 09-12-16-did not tolerate-completed only 3 cycles-then it was stopped/received radiation treatments/no surgery yet but pt states she is to get a MRI to see if she can have surgery, lt ear deafness, R ear [place]. History of Any Multi-Drug Resistant Organisms: None Reported Past Surgical History: Adenoidectomy, Breast Surgery, Tonsillectomy Additional Past Surgical History / Comment(s): Multiple paracentesises, EGDs, esophageal banding, right chest mediport 5-3-17, l breast bx., Past Anesthesia/Blood Transfusion Reactions: No Reported Reaction Additional Past Anesthesia/Blood Transfusion Reaction / Comment(s): blood transfusions- no reaction Past Psychological History: No Psychological Hx Reported, Anxiety Smoking Status: Current every day smoker Past Alcohol Use History: None Reported Past Drug Use History: None Reported - Past Family History Mother Family Medical History: Cancer Additional Family Medical History / Comment(s): of lung ca at the age of 59yrs. She was a smoker. Father Family Medical History: Myocardial Infarction ([place]) Additional Family Medical History / Comment(s): from 2nd heart attack at the age of 59yrs. General Exam - General Exam Comments Initial Comments: GENERAL: Patient is well-developed and well-nourished. Patient is nontoxic and well- hydrated and is in mild distress. ENT: Neck is soft and supple. No significant lymphadenopathy is noted. Oropharynx is clear. Moist mucous membranes. Neck has full range of motion without eliciting any pain. EYES: The sclera were anicteric and conjunctiva were pink and moist. Extraocular movements were intact and pupils were equal round and reactive to light. Eyelids were unremarkable. PULMONARY: Unlabored respirations. Good breath sounds bilaterally. No audible rales rhonchi or wheezing was noted. CARDIOVASCULAR: There is a regular rate and rhythm without any murmurs gallops or rubs. ABDOMEN: Patient has right upper quadrant tenderness. SKIN: Skin is clear with no lesions or rashes and otherwise unremarkable. NEUROLOGIC: Patient is alert and oriented x3. Cranial nerves II through XII are grossly intact. Motor and sensory are also intact. Normal speech, volume and content. Symmetrical smile. MUSCULOSKELETAL: Normal extremities with adequate strength and full range of motion. LYMPHATICS: No significant lymphadenopathy is noted PSYCHIATRIC: Normal psychiatric evaluation. Limitations: no limitations Course Vital Signs 10/10/19 07:34 Temperature 98.2 F Pulse Rate 83 Respiratory 18 Rate Blood Pressure 137/75 O2 Sat by Pulse 98 Oximetry Medical Decision Making - Medical Decision Making Patient did not want any lab work refused any kind of radiological studies stated she just needed pain medicine to last for 1:00 so that she could get her prescription filled. Patient did get a shot of a milligram of Dilaudid IM Disposition Clinical Impression: Inadequate pain control Disposition: HOME SELF-CARE Is patient prescribed a controlled substance at d/c from ED?: No Referrals: Mark Estrada MD [Primary Care Provider] - 1-2 days Time of Disposition: 13:34
== END 2019-10-10 08:25 | disposition home or self-care (01) ==
LOC: EC 07:29
DX: Z76.0 Encounter for issue of repeat prescription (principal); G89.29 Other chronic pain; R10.11 Right upper quadrant pain; H91.92 Unspecified hearing loss, left ear; F17.200 Nicotine dependence, unspecified, uncomplicated; Z86.19 Personal history of other infectious and parasitic diseases; Z85.3 Personal history of malignant neoplasm of breast
CPT/HCPCS: 99284; 96372; J1170

== ENCOUNTER 2020-05-26 01:26 | Observation (INO) | payer MEDICARE, OTHER ==
[2020-05-26] MEDS ORDERED: ONDANSETRON 4 MG/2 ML VIAL IVP STA (01:51)
[2020-05-26] MEDS ORDERED: MORPHINE SULFATE 4 MG/ML SYRINGE IV STA (01:57)
[2020-05-26 02:11] LABS: Appearance,Urine Cloudy (Clear); Bilirubin,Urine Negative (Negative); Blood,Urine Small (Negative); Color,Urine Yellow; Glucose,Urine (UA) Negative (Negative); Ketones,Urine Negative (Negative); Leukocyte Esterase,Urine Negative (Negative); Mucus,Urine Occasional /hpf; Nitrite,Urine Negative (Negative); PH, Urine 6.5 (5.0-8.0); Protein,Urine Trace (Negative); RBC,Urine 6 /hpf (0-5); Specific Gravity,Urine 1.016 (1.001-1.035); Squamous Epithelial Cell,Urine 4 /hpf (0-4); WBC,Urine 1 /hpf (0-5)
[2020-05-26 02:14] LABS: ALT 15 U/L (4-34); AST 30 U/L (14-36); African American GFR (CKD) >90 (>60 ml/min/1.73 sqM); Albumin 3.4 g/dL (3.5-5.0); Alkaline Phosphatase 84 U/L (38-126); Amylase 31 U/L (30-110); Anion Gap 5 mmol/L; Blood Urea Nitrogen 11 mg/dL (7-17); Calcium 8.7 mg/dL (8.4-10.2); Carbon Dioxide 25 mmol/L (22-30); Chloride 107 mmol/L (98-107); Glucose 98 mg/dL (74-99); Lipase 56 U/L (23-300); Non-African American GFR(CKD) >90 (>60 ml/min/1.73 sqM); Potassium 3.8 mmol/L (3.5-5.1); Sodium 137 mmol/L (137-145); Total Bilirubin 2.1 mg/dL (0.2-1.3); Total Protein 7.5 g/dL (6.3-8.2)
[2020-05-26 02:15] LABS: Basophils % (A) 1 %; Eosinophils # (A) 0.1 k/uL (0-0.7); Eosinophils % (A) 3 %; HCT 45.2 % (34.0-46.0); HGB 14.9 gm/dL (11.4-16.0); Lymphocytes # (A) 1.3 k/uL (1.0-4.8); Lymphocytes % (A) 35 %; MCH 34.8 pg (25.0-35.0); MCHC 32.9 g/dL (31.0-37.0); MCV 105.8 fL (80.0-100.0); Macrocytosis Moderate; Mean Platelet Volume 9.1; Monocytes # (A) 0.2 k/uL (0-1.0); Monocytes % (A) 5 %; Neutrophils # (A) 2.1 k/uL (1.3-7.7); Neutrophils % (A) 54 %; RBC 4.27 m/uL (3.80-5.40); WBC 3.8 k/uL (3.8-10.6)
[2020-05-26 02:22] LABS: Platelet Count 51 k/uL (150-450)
--- NOTE | 2020-05-26 02:38 | ED ---
Nausea/Vomiting/Diarrhea HPI - General Chief complaint: Nausea/Vomiting/Diarrhea Stated complaint: Vomiting Time Seen by Provider: 05/26/20 01:39 Source: patient Mode of arrival: ambulatory Limitations: no limitations - History of Present Illness Initial comments: This patient is a 54-year-old woman presenting with a constellation of complaints related to nausea, vomiting, upper abdominal pain and some heartburn or reflux-type symptoms. The patient states she has been bothered for going on 2 weeks with these symptoms. She indicates that there is some aching right upper quadrant abdominal pain. She has some substernal burning discomfort which had come on after she had number of episodes of vomiting. The patient thought that all the symptoms may have worsened due to the pain medication that she is taking. In addition, patient is concerned because she has not sought treatment for breast cancer that was diagnosed well over a year ago now. The patient states she had completed radiation therapy probably in March 2019. She was to see a surgeon the following month but then put the appointment off and has not followed up. MD complaint: nausea, vomiting, abdominal pain Onset/Timin -: week(s) Description of Vomiting: food contents Associated Abdominal Pain: Yes Location: RUQ Radiation: none Severity: moderate Quality: aching Consistency: constant Improves with: none Worsens with: none Associated Symptoms: nausea/vomiting - Related Data Home Medications Medication Instructions Recorded Confirmed HYDROmorphone [Dilaudid] 2 mg PO Q6H PRN 09/06/19 05/26/20 Hydrocodone/Acetaminophen [[place] 1 tab PO Q6H 09/06/19 05/26/20 10-325] Allergies Allergy/AdvReac Type Severity Reaction Status Date / Time No Known Allergies Allergy Verified 05/26/20 08:20 Review of Systems ROS Statement: Those systems with pertinent positive or pertinent negative responses have been documented in the HPI. ROS Other: All systems not noted in ROS Statement are negative. Constitutional: Denies: fever, chills Respiratory: Denies: cough, dyspnea, wheezes Cardiovascular: Denies: palpitations, orthopnea, edema, syncope Gastrointestinal: Reports: abdominal pain, nausea, vomiting. Denies: diarrhea, constipation, hematemesis, melena, hematochezia Genitourinary: Denies: dysuria, hematuria Musculoskeletal: Denies: back pain Skin: Denies: rash Neurological: Denies: headache, weakness, numbness Past Medical History Past Medical History: Cancer, COPD, GERD/Reflux, GI Bleed, Hearing Disorder / Deafness, Liver Disease Additional Past Medical History / Comment(s): Hepatitis C, intractable ascities with multiple paracentesis, cirrhosis, peritonitis, pancytopenia, vertigo once; multiple upper GI bleeds, esophageal varicies/esophageal banding, left breast cancer had chemo last on 09-12-16-did not tolerate-completed only 3 cycles-then it was stopped/received radiation treatments/no surgery yet but pt states she is to get a MRI to see if she can have surgery, lt ear deafness, R ear [place]. History of Any Multi-Drug Resistant Organisms: None Reported Past Surgical History: Adenoidectomy, Breast Surgery, Tonsillectomy Additional Past Surgical History / Comment(s): Multiple paracentesises, EGDs, esophageal banding, right chest mediport 08-06-16, l breast bx., Past Anesthesia/Blood Transfusion Reactions: No Reported Reaction Additional Past Anesthesia/Blood Transfusion Reaction / Comment(s): blood transfusions- no reaction Past Psychological History: Anxiety Smoking Status: Former smoker Past Alcohol Use History: None Reported Past Drug Use History: None Reported - Past Family History Mother Family Medical History: Cancer Additional Family Medical History / Comment(s): of lung ca at the age of 59yrs. She was a smoker. Father Family Medical History: Myocardial Infarction ([place]) Additional Family Medical History / Comment(s): from 2nd heart attack at the age of 59yrs. General Exam Limitations: no limitations General appearance: alert, in no apparent distress Head exam: Present: atraumatic, normocephalic Eye exam: Present: normal appearance. Absent: scleral icterus, conjunctival injection ENT exam: Present: mucous membranes dry Neck exam: Present: normal inspection Respiratory exam: Present: normal lung sounds bilaterally. Absent: respiratory distress, wheezes, rales, rhonchi, stridor Cardiovascular Exam: Present: regular rate, normal rhythm, normal heart sounds. Absent: systolic murmur, diastolic murmur, rubs, gallop GI/Abdominal exam: Present: soft, tenderness, guarding. Absent: distended, rebound, rigid, mass, pulsatile mass Extremities exam: Present: normal inspection, normal capillary refill. Absent: pedal edema, calf tenderness Back exam: Present: normal inspection. Absent: CVA tenderness (R), CVA tenderness (L) Neurological exam: Present: alert Skin exam: Present: warm, dry, intact, normal color. Absent: rash Course Vital Signs 05/26/20 01:34 Temperature 98.3 F Pulse Rate 91 Respiratory 18 Rate Blood Pressure 150/89 O2 Sat by Pulse 96 Oximetry Medical Decision Making - Lab Data Result diagrams: 05/26/20 01:56 05/26/20 01:56 Lab Results 05/26/20 05/26/20 05/26/20 Range/Units 01:56 01:56 02:05 WBC 3.8 (3.8-10.6) k/uL RBC 4.27 (3.80-5.40) m/uL Hgb 14.9 (11.4-16.0) gm/dL Hct 45.2 (34.0-46.0) % MCV 105.8 H (80.0-100.0) fL MCH 34.8 (25.0-35.0) pg MCHC 32.9 (31.0-37.0) g/dL RDW 14.0 (11.5-15.5) % Plt Count 51 L (150-450) k/uL MPV 9.1 Neutrophils % 54 % Lymphocytes % 35 % Monocytes % 5 % Eosinophils % 3 % Basophils % 1 % Neutrophils # 2.1 (1.3-7.7) k/uL Lymphocytes # 1.3 (1.0-4.8) k/uL Monocytes # 0.2 (0-1.0) k/uL Eosinophils # 0.1 (0-0.7) k/uL Basophils # 0.0 (0-0.2) k/uL Macrocytosis Moderate Sodium 137 (137-145) mmol/L Potassium 3.8 (3.5-5.1) mmol/L Chloride 107 (98-107) mmol/L Carbon Dioxide 25 (22-30) mmol/L Anion Gap 5 mmol/L BUN 11 (7-17) mg/dL Creatinine 0.62 (0.52-1.04) mg/dL Est GFR (CKD-EPI)AfAm >90 (>60 ml/min/1.73 sqM) Est GFR (CKD-EPI)NonAf >90 (>60 ml/min/1.73 sqM) Glucose 98 (74-99) mg/dL Calcium 8.7 (8.4-10.2) mg/dL Total Bilirubin 2.1 H (0.2-1.3) mg/dL AST 30 (14-36) U/L ALT 15 (4-34) U/L Alkaline Phosphatase 84 (38-126) U/L Troponin I (0.000-0.034) ng/mL Total Protein 7.5 (6.3-8.2) g/dL Albumin 3.4 L (3.5-5.0) g/dL Amylase 31 (30-110) U/L Lipase 56 (23-300) U/L Urine Color Yellow Urine Appearance Cloudy H (Clear) Urine pH 6.5 (5.0-8.0) Ur Specific [place] 1.016 (1.001-1.035) Urine Protein Trace H (Negative) Urine Glucose (UA) Negative (Negative) Urine Ketones Negative (Negative) Urine Blood Small H (Negative) Urine Nitrite Negative (Negative) Urine Bilirubin Negative (Negative) Urine Urobilinogen 8.0 (<2.0) mg/dL Ur Leukocyte Esterase Negative (Negative) Urine RBC 6 H (0-5) /hpf Urine WBC 1 (0-5) /hpf Ur Squamous Epith Cells 4 (0-4) /hpf Urine Mucus Occasional H (None) /hpf 05/26/20 Range/Units 02:10 WBC (3.8-10.6) k/uL RBC (3.80-5.40) m/uL Hgb (11.4-16.0) gm/dL Hct (34.0-46.0) % MCV (80.0-100.0) fL MCH (25.0-35.0) pg MCHC (31.0-37.0) g/dL RDW (11.5-15.5) % Plt Count (150-450) k/uL MPV Neutrophils % % Lymphocytes % % Monocytes % % Eosinophils % % Basophils % % Neutrophils # (1.3-7.7) k/uL Lymphocytes # (1.0-4.8) k/uL Monocytes # (0-1.0) k/uL Eosinophils # (0-0.7) k/uL Basophils # (0-0.2) k/uL Macrocytosis Sodium (137-145) mmol/L Potassium (3.5-5.1) mmol/L Chloride (98-107) mmol/L Carbon Dioxide (22-30) mmol/L Anion Gap mmol/L BUN (7-17) mg/dL Creatinine (0.52-1.04) mg/dL Est GFR (CKD-EPI)AfAm (>60 ml/min/1.73 sqM) Est GFR (CKD-EPI)NonAf (>60 ml/min/1.73 sqM) Glucose (74-99) mg/dL Calcium (8.4-10.2) mg/dL Total Bilirubin (0.2-1.3) mg/dL AST (14-36) U/L ALT (4-34) U/L Alkaline Phosphatase (38-126) U/L Troponin I <0.012 (0.000-0.034) ng/mL Total Protein (6.3-8.2) g/dL Albumin (3.5-5.0) g/dL Amylase (30-110) U/L Lipase (23-300) U/L Urine Color Urine Appearance (Clear) Urine pH (5.0-8.0) Ur Specific [place] (1.001-1.035) Urine Protein (Negative) Urine Glucose (UA) (Negative) Urine Ketones (Negative) Urine Blood (Negative) Urine Nitrite (Negative) Urine Bilirubin (Negative) Urine Urobilinogen (<2.0) mg/dL Ur Leukocyte Esterase (Negative) Urine RBC (0-5) /hpf Urine WBC (0-5) /hpf Ur Squamous Epith Cells (0-4) /hpf Urine Mucus (None) /hpf Disposition Clinical Impression: Ascites, Abdominal pain Disposition: ADMITTED IP TO THIS HOSP Condition: Fair
--- NOTE | 2020-05-26 03:50 | CT ---
EXAM: CT Abdomen and Pelvis With Intravenous Contrast CLINICAL HISTORY: ITS.REASON CT Reason: Acute RUQ pain TECHNIQUE: Axial computed tomography images of the abdomen and pelvis with intravenous contrast. CTDI is 17.27 mGy and DLP is 836.7 mGy-cm. This CT exam was performed using one or more of the following dose reduction techniques: automated exposure control, adjustment of the mA and/or kV according to patient size, and/or use of iterative reconstruction technique. COMPARISON: 60 2020 FINDINGS: Lung bases: Unremarkable. No mass. No consolidation. ABDOMEN: Liver: The liver is stable in appearance with evidence of a recanalized paraumbilical vein, irregular contours and relative hypertrophy of the left lobe of the liver. Gallbladder and bile ducts: Unremarkable. No calcified stones. No ductal dilation. Pancreas: Unremarkable. No mass. No ductal dilation. Spleen: Stable splenomegaly. Adrenals: Unremarkable. No mass. Kidneys and ureters: Unremarkable. No solid mass. No hydronephrosis. Stomach and bowel: Asymmetric mucosal prominence of the pyloric channel. Comparison with the previous examination is limited secondary to noncontrast technique previously. No evidence for high-grade gastric obstruction. The duodenum is unremarkable. Mucosal prominence of the ascending and transverse colon is slightly increased from the previous examination. PELVIS: Appendix: No findings to suggest acute appendicitis. Bladder: Unremarkable. No mass. Reproductive: Unremarkable as visualized. ABDOMEN and PELVIS: Intraperitoneal space: At least moderate ascites noted throughout the abdomen and pelvis, similar in volume to the previous examination. No free air. Bones/joints: No acute fracture. No dislocation. Soft tissues: The overlying soft tissues are stable in appearance. Vasculature: Chronic occlusion of the portal vein is noted with collateral cavernous transformation noted. Lymph nodes: Unremarkable. No enlarged lymph nodes. IMPRESSION: 1. Asymmetric mucosal prominence of the pyloric channel. Comparison with the previous examination is limited secondary to noncontrast technique previously. No evidence for high-grade gastric obstruction. The duodenum is unremarkable. Distal gastritis cannot be excluded. 2. Findings consistent with cirrhosis and portal hypertension. Chronic portal vein thrombosis with cavernous transformation noted. 3. At least moderate ascites noted throughout the abdomen and pelvis, similar in volume to the previous examination. 4. Mucosal prominence of the ascending and transverse colon is slightly increased from the previous examination. The specificity of this finding is markedly decreased in the setting of cirrhosis and portal hypertension. Favor incidental cirrhotic colopathy over colitis. No bowel obstruction. No pneumoperitoneum.
[2020-05-26] MEDS ORDERED: MAG HYDROX/AL HYDROX/SIMETH 30 ML, HYOSCYAMINE ELIXIR 10 ML, LIDOCAINE VISCOUS 2% 10 ML PO STA ×3 (05:09)
[2020-05-26] MEDS ORDERED: NALOXONE 0.4 MG/ML 1 ML VIAL IV PRN (06:06)
[2020-05-26] MEDS ORDERED: ONDANSETRON 4 MG/2 ML VIAL IVP PRN (06:06)
[2020-05-26] MEDS: FAMOTIDINE 20 MG/2 ML VIAL IV SCH ×2 (06:45→23:12)
[2020-05-26] MEDS: SODIUM CHLORIDE 0.9% 1,000 ML IV SCH ×3 (06:46→23:21)
[2020-05-26 08:57] VITALS: RESP 16
[2020-05-26] MEDS: HEPARIN SODIUM,PORCINE 5,000 UNIT/ML 1 ML VIAL SQ SCH ×2 (09:10→23:12)
[2020-05-26] MEDS: MORPHINE SULFATE 4 MG/ML SYRINGE IV PRN ×4 (09:11→23:13)
--- NOTE | 2020-05-26 14:02 | HP ---
HISTORY AND PHYSICAL CHIEF COMPLAINT: Epigastric pain. HISTORY OF PRESENT ILLNESS: This is another admission for this 54-year-old white female who has a longstanding history of hepatitis C with cirrhosis and intractable ascites. She also has a history of breast cancer. She has been doing fairly well at home and has not had much accumulation of ascitic fluid of late. However, she came to the emergency room because of epigastric pain which sounds more like gastritis. She has had no fever, chills, nausea, vomiting, hematemesis, melena, hematochezia, etc. until just before she came in when she did have some vomiting. There was no coffee-ground material. She has had no jaundice, acholic stools, dark urine, urinary complaints, etc. Past medical history, family history and personal and social histories are all otherwise unremarkable and unchanged from her recent admitting and discharge summaries. PHYSICAL EXAMINATION: Blood pressure is 106/70 with a pulse of 92, respirations of 33, and she is afebrile. In general, she appeared to be chronically ill. Skin was dry. Head, ears, eyes, nose, mouth and throat were normal. Chest is clear. Cardiac exam demonstrated normal sinus rhythm and the abdomen was slightly distended with ascites, but not anything nearly as severe as she has presented with in the past. She is slightly tender over the epigastrium. Bowel sounds were heard. Extremities are normal. Neurologically she is intact. She was to the hospital with diagnoses: 1. Epigastric pain. 2. History of cirrhosis. 3. History of hepatitis C. 4. Intractable ascites. 5. History of carcinoma of the breast. PLAN: 1. Bed rest. 2. IV fluids. 3. GI consult. 4. Treat for gastritis. MMODL / IJN: [id number] /
[2020-05-26] MEDS: PANTOPRAZOLE 40 MG/10 ML VIAL IVP SCH (14:48)
[2020-05-26] MEDS: SUCRALFATE 1 GM TAB PO SCH ×2 (18:30→23:12)
[2020-05-27] MEDS: MORPHINE SULFATE 4 MG/ML SYRINGE IV PRN ×4 (03:47→17:48)
[2020-05-27] MEDS: SODIUM CHLORIDE 0.9% 1,000 ML IV SCH ×2 (06:00→18:15)
[2020-05-27] MEDS: SUCRALFATE 1 GM TAB PO SCH ×3 (08:26→17:48)
[2020-05-27] MEDS: PANTOPRAZOLE 40 MG/10 ML VIAL IVP SCH (08:26)
[2020-05-27] MEDS: FAMOTIDINE 20 MG/2 ML VIAL IV SCH (08:27)
[2020-05-27] MEDS: HEPARIN SODIUM,PORCINE 5,000 UNIT/ML 1 ML VIAL SQ SCH (08:27)
[2020-05-27 15:16] VITALS: BP 131/74; PULSE 69; TEMP 98.1
--- NOTE | 2020-05-27 20:56 | DS ---
DISCHARGE SUMMARY DATE OF SERVICE: 05/27/2020 CHIEF COMPLAINT: Epigastric pain. HISTORY OF PRESENT ILLNESS AND PHYSICAL EXAMINATION: Details of this lady's history and physical can be found in the initial workup. LABORATORY STUDIES: While she was in the hospital, she had laboratory studies, details of which can be found in the laboratory section of her chart. COURSE IN THE HOSPITAL: After admission, she was placed at bedrest, started on intravenous fluids. She was placed on Protonix. It was felt that she may have gastritis or gastric ulcer. Consult was placed to Gastroenterology and they saw her and recommended upper GI endoscopy, but the patient signed herself out AGAINST MEDICAL ADVICE on the evening of . She will be contacted by our office for followup. FINAL DIAGNOSES: 1. Acute epigastric pain, etiology unknown. 2. Cirrhosis. 3. Hepatitis C. 4. Intractable ascites secondary to portal hypertension. 5. History of carcinoma of the breast. 6. Chronic obstructive pulmonary disease. OPERATIONS: None. CONSULTATIONS: Gastroenterology. She is improved. MMODL / IJN: [id number] /
--- NOTE | 2020-05-27 22:33 | P.CONS ---
History of Present Illness - Reason for Consult Consult date: 05/27/20 Abdominal pain, nausea and vomiting Requesting physician: Mark Estrada - Chief Complaint Abdominal pain, nausea and vomiting - History of Present Illness 54-year-old female with multiple medical comorbidities including breast cancer, decompensated cirrhosis of liver with ascites, hypertension, pancytopenia and previous history of esophageal varices who presents to the hospital with complaints of nausea, vomiting and abdominal pain. The patient reports that sym ptoms are present over the past few weeks. She isn't having intermittent episodes of epigastric pain and pain in the right upper quadrant as well as heartburn and multiple episodes of nausea and vomiting. The patient has a history of hepatitis C previously treated with antiviral therapy. Previously she underwent an EGD in 04/2016 for history of esophageal varices with obliterated distal esophageal varices noted at that time. She has required multiple hospitalizations for refractory ascites in the past. On current hospitalization the patient had computed tomography scan of the abdomen showing a cirrhotic-appearing liver with some gastric thickening suggestive of gastritis. Laboratory evaluation significant for hemoglobin 14.9, platelet count 51,000, total bilirubin 2.1, alkaline phosphatase 84, AST 30 and ALT 15. Currently the patient is seen lying in bed reporting that symptoms are improved. She is asking for a diet. Review of Systems REVIEW OF SYSTEMS: CONSTITUTIONAL: Denies any fevers, chills, weight change or fatigue. CARDIOVASCULAR: Denies any chest pain, palpitations high or low blood pressures RESPIRATORY: Denies any shortness of breath, hemoptysis or cough. GENITOURINARY: No dysuria or hematuria. MUSCULOSKELETAL: No weakness reported. SKIN: Denies any new rashes or lesions, jaundice or pallor. PSYCHIATRIC: Denies any depression or anxiety. NEUROLOGY: Denies headache, denies any new focal deficits. EARS/NOSE/THROAT: No recent hearing change, congestion, nasal discharge or sore throat. EYES: No pain in eyes, discharge or change in vision. GASTROINTESTINAL: As per HPI. Past Medical History Past Medical History: Cancer, COPD, GERD/Reflux, GI Bleed, Hearing Disorder / Deafness, Liver Disease Additional Past Medical History / Comment(s): Hepatitis C, intractable ascities with multiple paracentesis, cirrhosis, peritonitis, pancytopenia, vertigo once; multiple upper GI bleeds, esophageal varicies/esophageal banding, left breast cancer had chemo last on 09-12-16-did not tolerate-completed only 3 cycles-then it was stopped/received radiation treatments/no surgery yet but pt states she is to get a MRI to see if she can have surgery, lt ear deafness, R ear [id number] [place]. History of Any Multi-Drug Resistant Organisms: None Reported Past Surgical History: Adenoidectomy, Breast Surgery, Tonsillectomy Additional Past Surgical History / Comment(s): Multiple paracentesises, EGDs, esophageal banding, right chest mediport 08-06-16, l breast bx., Past Anesthesia/Blood Transfusion Reactions: No Reported Reaction Additional Past Anesthesia/Blood Transfusion Reaction / Comm: blood transfusions- no reaction Past Psychological History: Anxiety Additional Psychological History / Comment(s): Patient started smoking at age 14 yrs. old- 2 a pack a day and cut back to one to 3 cigarettes per day no history of alcohol abuse. Patient lives with her son. She is currently on disability. Smoking Status: Former smoker Past Alcohol Use History: None Reported Additional Past Alcohol Use History / Comment(s): Patient started smoking at age 14. She was a ppd smoker but cut back to one to 1-3 cigarettes per day in 2016. No history of alcohol abuse. Past Drug Use History: None Reported - Past Family History Mother Family Medical History: Cancer Additional Family Medical History / Comment(s): of lung ca at the age of 59yrs. She was a smoker. Father Family Medical History: Myocardial Infarction ([place]) Additional Family Medical History / Comment(s): from 2nd heart attack at the age of 59yrs. Medications and Allergies Home Medications Medication Instructions Recorded Confirmed Type HYDROmorphone [Dilaudid] 2 mg PO Q6H PRN 09/06/19 05/26/20 History Hydrocodone/Acetaminophen [Organ 1 tab PO Q6H 09/06/19 05/26/20 History 10-325] Allergies Allergy/AdvReac Type Severity Reaction Status Date / Time No Known Allergies Allergy Verified 05/26/20 08:20 Physical Exam Vitals: Vital Signs Temp Pulse Resp BP Pulse Ox 05/27/20 08:00 67 16 05/27/20 07:00 97.9 F 67 16 120/70 94 L 05/27/20 02:00 98.1 F 69 16 106/69 93 L 05/26/20 14:43 97.7 F 69 16 127/68 95 05/26/20 14:00 87 16 Intake and Output 05/26/20 05/27/20 05/27/20 22:59 06:59 14:59 Other: # Voids 0 0 Weight 72.575 kg On physical examination, patient appears comfortable in no apparent distress. HEAD: Normocephalic, atraumatic. EYES: No scleral icterus. No conjunctival injection. MOUTH: No lesions, tongue midline. NECK: Trachea midline, no gross abnormalities. CHEST: Clear to auscultation with no wheezing or rhonchi appreciated. HEART: Regular rate and rhythm. ABDOMEN: Soft, mildly distended. Bowel sounds are positive. No organomegaly. No guarding or rigidity. EXTREMITIES: No pedal edema. SKIN: No rashes, no jaundice. NEUROLOGIC: Alert and oriented x3. No focal deficits. Results CBC & Chem 7: 05/26/20 01:56 05/26/20 01:56 CT scan - abdomen: report reviewed (Computed tomography scan of the abdomen with a cirrhotic-appearing liver and some antral thickening suggestive of gastritis.) Assessment and Plan (1) Abdominal pain Narrative/Plan: 54-year-old female also medical comorbidities including a known history of cirrhosis with ascites, prior history of hepatitis C and prior esophageal variceal band ligation who presented to the hospital with nausea, vomiting and abdominal pain. Intermittent episodes of abdominal pain in the epigastric region of her abdomen and right upper quadrant over the past few weeks. She reports of controlled reflux and intermittent nausea and vomiting. Computed tomography scan of the abdomen on presentation with multiple findings including a cirrhotic appearing liver with portal hypertension, ascites, antral thickening suggestive of gastritis. Unclear etiology of symptoms, may be related to gastritis, peptic ulcer disease, abnormal imaging in the setting of a ascites, or other etiology. Status: Acute Code(s): R10.9 - UNSPECIFIED ABDOMINAL PAIN SNOMED Code(s): 21 741155 (2) Ascites of liver Status: Acute Code(s): R18.8 - OTHER ASCITES SNOMED Code(s): 192913809 (3) Cirrhosis of liver Status: Acute Code(s): K74.60 - UNSPECIFIED CIRRHOSIS OF LIVER SNOMED Code(s): 52940840 (4) Epigastric abdominal pain Status: Acute Code(s): R10.13 - EPIGASTRIC PAIN SNOMED Code(s): 83257390 (5) History of hepatitis C Status: Acute Code(s): Z86.19 - PERSONAL HISTORY OF OTHER INFECTIOUS AND PARASITIC DISEASES SNOMED Code(s): 50772672533623 (6) Hyperbilirubinemia Status: Acute Code(s): E80.6 - OTHER DISORDERS OF BILIRUBIN METABOLISM SNOMED Code(s): 32882734 Plan: Supportive care Okay for diet as tolerated Recommend Protonix 40 mg twice daily Patient seen in her room and offered esophagogastroduodenoscopy for evaluation with all of the risks, benefits and possible complications of the procedure discussed with the patient at length, if the patient decides to stay in the hospital will plan to perform tomorrow otherwise patient to follow up after discharge with gastroenterology Thank you for allowing us to participate in the care of this patient we will continue to follow
== END 2020-05-27 19:20 | disposition left against medical advice (07) ==
LOC: EC 01:26 → 6NMEDSUR 06:36
PROVIDERS: ADMIT Family Medicine; ATTEND Family Medicine
DX: K29.70 Gastritis, unspecified, without bleeding (principal); R18.8 Other ascites; K74.60 Unspecified cirrhosis of liver; R10.13 Epigastric pain; K76.6 Portal hypertension; C50.919 Malignant neoplasm of unspecified site of unspecified female breast; J44.9 Chronic obstructive pulmonary disease, unspecified; B19.20 Unspecified viral hepatitis C without hepatic coma; K21.9 Gastro-esophageal reflux disease without esophagitis; K76.9 Liver disease, unspecified; H91.90 Unspecified hearing loss, unspecified ear; Z85.3 Personal history of malignant neoplasm of breast; I10 Essential (primary) hypertension; D61.818 Other pancytopenia; E80.7 Disorder of bilirubin metabolism, unspecified; F41.9 Anxiety disorder, unspecified; Z87.891 Personal history of nicotine dependence; Z92.3 Personal history of irradiation; Z80.1 Family history of malignant neoplasm of trachea, bronchus and lung; Z82.49 Family history of ischemic heart disease and other diseases of the circulatory system; Z20.822 Contact with and (suspected) exposure to COVID-19; Z87.19 Personal history of other diseases of the digestive system
CPT/HCPCS: 96376 ×2; 96361 ×2; 96372 ×2; 96375 ×2; 96374; 99285; 36415; 80053; 82150; 83690; 84484; 85025; 81001; 87635; 74177; G0378 ×2; J2270 ×2; J1644 ×2; J2405; C9113 ×2; Q9967

== ENCOUNTER 2020-06-11 22:54 | Emergency (ER) | payer MEDICARE, OTHER ==
[2020-06-11 23:00] VITALS: TEMP 98.2
[2020-06-11] MEDS ORDERED: ONDANSETRON 4 MG/2 ML VIAL IVP STA (23:10)
[2020-06-11] MEDS ORDERED: HYDROmorphone 0.5 MG/0.5 ML SYRINGE IVP STA (23:10)
[2020-06-11 23:37] LABS: Appearance,Urine Cloudy (Clear); Bacteria,Urine Occasional /hpf; Bilirubin,Urine 1+ (Negative); Blood,Urine Trace (Negative); Color,Urine Orange; Glucose,Urine (UA) Negative (Negative); Ketones,Urine Negative (Negative); Leukocyte Esterase,Urine Trace (Negative); Mucus,Urine Many /hpf; Nitrite,Urine Negative (Negative); Protein,Urine Trace (Negative); RBC,Urine 6 /hpf (0-5); Specific Gravity,Urine 1.022 (1.001-1.035); Squamous Epithelial Cell,Urine 6 /hpf (0-4); WBC,Urine 5 /hpf (0-5)
[2020-06-11 23:46] LABS: ALT 16 U/L (4-34); AST 38 U/L (14-36); African American GFR (CKD) >90 (>60 ml/min/1.73 sqM); Albumin 3.6 g/dL (3.5-5.0); Alkaline Phosphatase 80 U/L (38-126); Amylase <30 U/L (30-110); Anion Gap 9 mmol/L; Blood Urea Nitrogen 10 mg/dL (7-17); Calcium 8.9 mg/dL (8.4-10.2); Carbon Dioxide 24 mmol/L (22-30); Chloride 105 mmol/L (98-107); Glucose 100 mg/dL (74-99); Lipase 43 U/L (23-300); Non-African American GFR(CKD) >90 (>60 ml/min/1.73 sqM); Potassium 3.9 mmol/L (3.5-5.1); Sodium 138 mmol/L (137-145); Total Bilirubin 2.8 mg/dL (0.2-1.3); Total Protein 7.7 g/dL (6.3-8.2)
--- NOTE | 2020-06-12 00:02 | ED ---
Abdominal Pain HPI - General Chief Complaint: Abdominal Pain Stated Complaint: Abdominal pain Time Seen by Provider: 06/11/20 23:05 Source: patient, RN notes reviewed Mode of arrival: ambulatory Limitations: no limitations - History of Present Illness Initial Comments: This a 54-year-old female presents emergency Department chief complaint of abdominal pain. Patient was recently here for similar complaints. Patient still may be her gallbladder. Patient states pain has been persistent she does take multiple pain at home. Patient does have a history of liver cirrhosis with ascites and multiple paracentesis. Patient states it's not swollen as usual. No dysuria no hematuria denies any diarrhea constipation no fevers chills no chest pain or shortness of breath. - Related Data Home Medications Medication Instructions Recorded Confirmed HYDROmorphone [Dilaudid] 2 mg PO Q6H PRN 09/06/19 05/26/20 Hydrocodone/Acetaminophen [[place] 1 tab PO Q6H 09/06/19 05/26/20 10-325] Allergies Allergy/AdvReac Type Severity Reaction Status Date / Time No Known Allergies Allergy Verified 06/11/20 23:00 Review of Systems ROS Statement: Those systems with pertinent positive or pertinent negative responses have been documented in the HPI. ROS Other: All systems not noted in ROS Statement are negative. Past Medical History Past Medical History: Cancer, COPD, GERD/Reflux, GI Bleed, Hearing Disorder / Deafness, Liver Disease Additional Past Medical History / Comment(s): Hepatitis C, intractable ascities with multiple paracentesis, cirrhosis, peritonitis, pancytopenia, vertigo once; multiple upper GI bleeds, esophageal varicies/esophageal banding, left breast cancer had chemo last on 09-12-16-did not tolerate-completed only 3 cycles-then it was stopped/received radiation treatments/no surgery yet but pt states she is to get a MRI to see if she can have surgery, lt ear deafness, R ear [place]. History of Any Multi-Drug Resistant Organisms: None Reported Past Surgical History: Adenoidectomy, Breast Surgery, Tonsillectomy Additional Past Surgical History / Comment(s): Multiple paracentesises, EGDs, esophageal banding, right chest mediport 08-06-16, l breast bx., Past Anesthesia/Blood Transfusion Reactions: No Reported Reaction Additional Past Anesthesia/Blood Transfusion Reaction / Comment(s): blood transfusions- no reaction Past Psychological History: Anxiety Smoking Status: Former smoker Past Alcohol Use History: None Reported Past Drug Use History: None Reported - Past Family History Mother Family Medical History: Cancer Additional Family Medical History / Comment(s): of lung ca at the age of 59yrs. She was a smoker. Father Family Medical History: Myocardial Infarction ([place]) Additional Family Medical History / Comment(s): from 2nd heart attack at the age of 59yrs. General Exam Limitations: no limitations General appearance: alert, in no apparent distress Head exam: Present: atraumatic, normocephalic, normal inspection Eye exam: Present: normal appearance, PERRL, EOMI. Absent: scleral icterus, conjunctival injection, periorbital swelling Neck exam: Present: normal inspection. Absent: tenderness, meningismus, lymphadenopathy Respiratory exam: Present: normal lung sounds bilaterally. Absent: respiratory distress, wheezes, rales, rhonchi, stridor Cardiovascular Exam: Present: normal rhythm, tachycardia, normal heart sounds. Absent: systolic murmur, diastolic murmur, rubs, gallop, clicks GI/Abdominal exam: Present: soft, tenderness, normal bowel sounds. Absent: distended, guarding, rebound, rigid Back exam: Absent: CVA tenderness (R), CVA tenderness (L) Neurological exam: Present: alert, oriented X3 Skin exam: Present: warm, dry, intact, normal color. Absent: rash Course Vital Signs 06/11/20 06/11/20 22:57 23:59 Temperature 98.2 F Pulse Rate 103 H 88 Respiratory 18 16 Rate Blood Pressure 149/70 112/69 O2 Sat by Pulse 93 L 95 Oximetry Medical Decision Making - Medical Decision Making Labs were reviewed with no acute findings. Patient had recent CT showed chronic hemorrhoids. Patient symptoms are not new today slightly stable for discharge in stable condition advised follow-up PCP tomorrow. - Lab Data Result diagrams: 06/11/20 23:20 06/11/20 23:20 Lab Results 06/11/20 06/11/20 06/11/20 Range/Units 23:20 23:20 23:29 WBC 4.3 (3.8-10.6) k/uL RBC 3.99 (3.80-5.40) m/uL Hgb 14.6 (11.4-16.0) gm/dL Hct 42.2 (34.0-46.0) % MCV 105.5 H (80.0-100.0) fL MCH 36.6 H (25.0-35.0) pg MCHC 34.7 (31.0-37.0) g/dL RDW 13.6 (11.5-15.5) % Plt Count 70 L (150-450) k/uL MPV 9.2 Lymphocytes % 37 % Monocytes % 9 % Eosinophils % 4 % Basophils % 1 % Neutrophils # 2.1 (1.3-7.7) k/uL Lymphocytes # 1.6 (1.0-4.8) k/uL Monocytes # 0.4 (0-1.0) k/uL Eosinophils # 0.2 (0-0.7) k/uL Basophils # 0.0 (0-0.2) k/uL Macrocytosis Moderate Sodium 138 (137-145) mmol/L Potassium 3.9 (3.5-5.1) mmol/L Chloride 105 (98-107) mmol/L Carbon Dioxide 24 (22-30) mmol/L Anion Gap 9 mmol/L BUN 10 (7-17) mg/dL Creatinine 0.59 (0.52-1.04) mg/dL Est GFR (CKD-EPI)AfAm >90 (>60 ml/min/1.73 sqM) Est GFR (CKD-EPI)NonAf >90 (>60 ml/min/1.73 sqM) Glucose 100 H (74-99) mg/dL Calcium 8.9 (8.4-10.2) mg/dL Total Bilirubin 2.8 H (0.2-1.3) mg/dL AST 38 H (14-36) U/L ALT 16 (4-34) U/L Alkaline Phosphatase 80 (38-126) U/L Total Protein 7.7 (6.3-8.2) g/dL Albumin 3.6 (3.5-5.0) g/dL Amylase <30 L (30-110) U/L Lipase 43 (23-300) U/L Urine Color [place] Urine Appearance Cloudy H (Clear) Urine pH 6.0 (5.0-8.0) Ur Specific [place] 1.022 (1.001-1.035) Urine Protein Trace H (Negative) Urine Glucose (UA) Negative (Negative) Urine Ketones Negative (Negative) Urine Blood Trace H (Negative) Urine Nitrite Negative (Negative) Urine Bilirubin 1+ H (Negative) Urine Urobilinogen 8.0 (<2.0) mg/dL Ur Leukocyte Esterase Trace H (Negative) Urine RBC 6 H (0-5) /hpf Urine WBC 5 (0-5) /hpf Ur Squamous Epith Cells 6 H (0-4) /hpf Urine Bacteria Occasional H (None) /hpf Urine Mucus Many H (None) /hpf Disposition Clinical Impression: Abdominal pain Disposition: HOME SELF-CARE Condition: Stable Instructions (If sedation given, give patient instructions): Abdominal Pain (ED) Additional Instructions: Please return to the Emergency Department if symptoms worsen or any other concerns. Is patient prescribed a controlled substance at d/c from ED?: No Referrals: Mark Estrada MD [Primary Care Provider] - 1-2 days Time of Disposition: 00:52
[2020-06-12 00:10] LABS: Basophils % (A) 1 %; Eosinophils # (A) 0.2 k/uL (0-0.7); Eosinophils % (A) 4 %; HCT 42.2 % (34.0-46.0); HGB 14.6 gm/dL (11.4-16.0); Lymphocytes # (A) 1.6 k/uL (1.0-4.8); Lymphocytes % (A) 37 %; MCH 36.6 pg (25.0-35.0); MCHC 34.7 g/dL (31.0-37.0); MCV 105.5 fL (80.0-100.0); Macrocytosis Moderate; Mean Platelet Volume 9.2; Monocytes # (A) 0.4 k/uL (0-1.0); Monocytes % (A) 9 %; Neutrophils # (A) 2.1 k/uL (1.3-7.7); RBC 3.99 m/uL (3.80-5.40); RDW 13.6 % (11.5-15.5); WBC 4.3 k/uL (3.8-10.6)
[2020-06-12 00:33] VITALS: RESP 16
[2020-06-12 00:35] LABS: Platelet Count 70 k/uL (150-450)
[2020-06-12] MEDS ORDERED: HYDROmorphone 1 MG/ML 1 ML SYRINGE IVP STA (00:51)
[2020-06-12 01:14] VITALS: BP 103/73; PULSE 89
== END 2020-06-12 01:14 | disposition home or self-care (01) ==
LOC: EC 22:54
DX: R10.9 Unspecified abdominal pain (principal); K21.9 Gastro-esophageal reflux disease without esophagitis; J44.9 Chronic obstructive pulmonary disease, unspecified; K74.60 Unspecified cirrhosis of liver
CPT/HCPCS: 36415; 80053; 82150; 83690; 85025; 81001; 99284; 96374; 96375; 96376; J2405; J1170 ×2

== ENCOUNTER 2020-06-12 15:55 | Inpatient (IN) | payer MEDICARE, OTHER ==
[2020-06-12] MEDS ORDERED: PANTOPRAZOLE 40 MG/10 ML VIAL IVP STA (17:01)
[2020-06-12] MEDS ORDERED: MORPHINE SULFATE 4 MG/ML SYRINGE IVP STA (17:01)
[2020-06-12] MEDS ORDERED: ONDANSETRON 4 MG/2 ML VIAL IVP STA (17:01)
[2020-06-12] MEDS ORDERED: SODIUM CHLORIDE 0.9% 1,000 ML IV STA (17:01)
[2020-06-12 17:29] LABS: Basophils % (A) 1 %; Eosinophils # (A) 0.1 k/uL (0-0.7); Eosinophils % (A) 3 %; HCT 43.1 % (34.0-46.0); HGB 14.4 gm/dL (11.4-16.0); Lymphocytes # (A) 0.8 k/uL (1.0-4.8); Lymphocytes % (A) 21 %; MCH 35.1 pg (25.0-35.0); MCHC 33.5 g/dL (31.0-37.0); MCV 104.8 fL (80.0-100.0); Macrocytosis Moderate; Mean Platelet Volume 9.9; Monocytes # (A) 0.3 k/uL (0-1.0); Monocytes % (A) 8 %; Neutrophils # (A) 2.4 k/uL (1.3-7.7); Neutrophils % (A) 66 %; RBC 4.11 m/uL (3.80-5.40); RDW 14.4 % (11.5-15.5); WBC 3.6 k/uL (3.8-10.6)
[2020-06-12 17:39] LABS: Platelet Count 69 k/uL (150-450)
[2020-06-12 17:41] LABS: ALT 16 U/L (4-34); AST 38 U/L (14-36); African American GFR (CKD) >90 (>60 ml/min/1.73 sqM); Albumin 3.5 g/dL (3.5-5.0); Alkaline Phosphatase 79 U/L (38-126); Anion Gap 8 mmol/L; Blood Urea Nitrogen 10 mg/dL (7-17); Carbon Dioxide 24 mmol/L (22-30); Chloride 106 mmol/L (98-107); Glucose 115 mg/dL (74-99); Lipase 59 U/L (23-300); Non-African American GFR(CKD) >90 (>60 ml/min/1.73 sqM); Potassium 3.9 mmol/L (3.5-5.1); Sodium 138 mmol/L (137-145); Total Bilirubin 2.8 mg/dL (0.2-1.3); Total Protein 7.6 g/dL (6.3-8.2)
[2020-06-12] MEDS ORDERED: HYDROmorphone 0.5 MG/0.5 ML SYRINGE IVP STA (18:10)
--- NOTE | 2020-06-12 18:20 | ED ---
Abdominal Pain HPI - General Chief Complaint: Abdominal Pain Stated Complaint: Abdominal Pain Time Seen by Provider: 06/12/20 16:49 Source: patient Mode of arrival: ambulatory Limitations: no limitations - History of Present Illness Initial Comments: Patient is a 54-year-old female, with history of COPD, GERD, liver disease, presenting to the emergency Department with complaints of nausea, vomiting and increasing abdominal pain over the past 4-5 days. Patient was seen in the ER last night for same complaint, had normal labs and was discharged home. Patient states she continues to be vomiting and increasing abdominal pain. Patient was admitted to this hospital and of May for similar complaint, she ended up leaving AMA before any further testing was complete. She denies any fever or chills, no chest pain or shortness of breath. She describes her abdominal pain is epigastric, right upper quadrant. She denies any abdominal surgeries other than multiple paracentesis. He denies any dysuria, normal bowel limits. She has no further complaints at this time. Upon arrival to the ER her vitals are stable. - Related Data Home Medications Medication Instructions Recorded Confirmed HYDROmorphone [Dilaudid] 2 mg PO Q6H PRN 09/06/19 06/12/20 Hydrocodone/Acetaminophen [[place] 1 tab PO Q6H 09/06/19 06/12/20 10-325] Allergies Allergy/AdvReac Type Severity Reaction Status Date / Time No Known Allergies Allergy Verified 06/12/20 17:38 Review of Systems ROS Statement: Those systems with pertinent positive or pertinent negative responses have been documented in the HPI. ROS Other: All systems not noted in ROS Statement are negative. Past Medical History Past Medical History: Cancer, COPD, GERD/Reflux, GI Bleed, Hearing Disorder / Deafness, Liver Disease Additional Past Medical History / Comment(s): Hepatitis C, intractable ascities with multiple paracentesis, cirrhosis, peritonitis, pancytopenia, vertigo once; multiple upper GI bleeds, esophageal varicies/esophageal banding, left breast cancer had chemo last on 09-12-16-did not tolerate-completed only 3 cycles-then it was stopped/received radiation treatments/no surgery yet but pt states she is to get a MRI to see if she can have surgery, lt ear deafness, R ear [place]. History of Any Multi-Drug Resistant Organisms: None Reported Past Surgical History: Adenoidectomy, Breast Surgery, Tonsillectomy Additional Past Surgical History / Comment(s): Multiple paracentesises, EGDs, esophageal banding, right chest mediport 5-3-17, l breast bx., Past Anesthesia/Blood Transfusion Reactions: No Reported Reaction Additional Past Anesthesia/Blood Transfusion Reaction / Comment(s): blood transfusions- no reaction Past Psychological History: Anxiety Smoking Status: Current every day smoker Past Alcohol Use History: None Reported Past Drug Use History: None Reported - Past Family History Mother Family Medical History: Cancer Additional Family Medical History / Comment(s): of lung ca at the age of 59yrs. She was a smoker. Father Family Medical History: Myocardial Infarction ([place]) Additional Family Medical History / Comment(s): from 2nd heart attack at the age of 59yrs. General Exam - General Exam Comments Initial Comments: GENERAL: Patient is well-developed and well-nourished. Patient is nontoxic and in moderate distress. HEAD: Atraumatic, normocephalic. EYES: Pupils equal round and reactive to light, extraocular movements intact, sclera anicteric, conjunctiva are normal. Eyelids were unremarkable. ENT: TMs normal, nares patent, oropharynx clear without exudates. Moist mucous membranes. NECK: Normal range of motion, supple without lymphadenopathy or JVD. LUNGS: Unlabored respirations. Breath sounds clear to auscultation bilaterally and equal. No wheezes rales or rhonchi. HEART: Regular rate and rhythm without murmurs, rubs or gallops. ABDOMEN: Soft, tender to palpation epigastric and right upper quadrant, normoactive bowel sounds. No guarding, no rebound. No masses appreciated. : Deferred MUSCULOSKELETAL: Normal extremities with adequate strength and normal range of motion, no pitting or edema. No clubbing or cyanosis. NEUROLOGICAL: Patient is alert and oriented x 3. Motor and sensory are also intact. Cranial nerves II through XII grossly intact. Symmetrical smile. Normal speech, normal gait. PSYCH: Normal mood, normal affect. SKIN: Warm, Dry, normal turgor, no rashes or lesions noted. Limitations: no limitations Course Vital Signs 06/12/20 06/12/20 06/12/20 16:01 17:44 19:03 Temperature 97.8 F Pulse Rate 102 H 82 80 Respiratory 18 18 18 Rate Blood Pressure 128/57 104/68 128/87 O2 Sat by Pulse 94 L 96 98 Oximetry Medical Decision Making - Medical Decision Making Patient is a 54-year-old female here with nausea, vomiting, epigastric right upper quadrant abdominal pain worsening with past 4-5 days. Patient was seen in the ER last night for same complaint, felt slight improvement and then was discharged home. She returns with continued continued pain. No history of abdominal surgeries with multiple paracentesis. History of liver disease. She was admitted for similar thing the end of May, left AMA. She states the pain is way worse than it was before. Patient has normal white count, stable hemoglobin, bilirubin slightly elevated at 2.8, liver enzymes are stable. Lipase is normal. Patient was given fluids, pain control, still reports severe pain. I did order ultrasound of the gallbladder, shows gallstones, some mild ductal dilation, they cannot rule out cranial cholecystitis. I did speak with Dr. Estrada who is in agreement with admission, will put GI and surgery on consult. Patient is in agreement with this plan of care. Case discussed with Dr. Fatima. - Lab Data Result diagrams: 06/12/20 17:21 06/12/20 17:21 Lab Results 06/12/20 06/12/20 Range/Units 17:21 17:21 WBC 3.6 L (3.8-10.6) k/uL RBC 4.11 (3.80-5.40) m/uL Hgb 14.4 (11.4-16.0) gm/dL Hct 43.1 (34.0-46.0) % MCV 104.8 H (80.0-100.0) fL MCH 35.1 H (25.0-35.0) pg MCHC 33.5 (31.0-37.0) g/dL RDW 14.4 (11.5-15.5) % Plt Count 69 L (150-450) k/uL MPV 9.9 Neutrophils % 66 % Lymphocytes % 21 % Monocytes % 8 % Eosinophils % 3 % Basophils % 1 % Neutrophils # 2.4 (1.3-7.7) k/uL Lymphocytes # 0.8 L (1.0-4.8) k/uL Monocytes # 0.3 (0-1.0) k/uL Eosinophils # 0.1 (0-0.7) k/uL Basophils # 0.0 (0-0.2) k/uL Macrocytosis Moderate Sodium 138 (137-145) mmol/L Potassium 3.9 (3.5-5.1) mmol/L Chloride 106 (98-107) mmol/L Carbon Dioxide 24 (22-30) mmol/L Anion Gap 8 mmol/L BUN 10 (7-17) mg/dL Creatinine 0.62 (0.52-1.04) mg/dL Est GFR (CKD-EPI)AfAm >90 (>60 ml/min/1.73 sqM) Est GFR (CKD-EPI)NonAf >90 (>60 ml/min/1.73 sqM) Glucose 115 H (74-99) mg/dL Calcium 9.0 (8.4-10.2) mg/dL Total Bilirubin 2.8 H (0.2-1.3) mg/dL AST 38 H (14-36) U/L ALT 16 (4-34) U/L Alkaline Phosphatase 79 (38-126) U/L Total Protein 7.6 (6.3-8.2) g/dL Albumin 3.5 (3.5-5.0) g/dL Lipase 59 (23-300) U/L Disposition Clinical Impression: Intractable abdominal pain, Nausea & vomiting, Cholecystitis Disposition: [facility] Condition: Stable Referrals: Mark Estrada MD [Primary Care Provider] - 1-2 days Decision Date: 06/12/20 Decision Time: 19:41
--- NOTE | 2020-06-12 19:14 | US ---
EXAMINATION TYPE: US gallbladder DATE OF EXAM: 06/12/2020 COMPARISON: CT May 26, 2020 CLINICAL HISTORY: RUQ pain. RUQ pain x 4 days. Hx cirrhosis. EXAM MEASUREMENTS: Liver Length: 11.5 cm Gallbladder Wall: 0.34 cm CBD: 0.74 cm Right Kidney: 11.1 x 4.9 x 4.6 cm Limited due to gas. Pancreas: Not visualized. Liver: Appears small in size, coarse, and has an increased echogenicity. Gallbladder: Multiple hyperechoic foci seen within the gallbladder. Wall measures 0.34 cm upper limit s of normal. Evidence for sonographic Greenberg's sign: Patient felt pain while scanning over the gallbladder area . CBD: Perhaps minimally dilated Right Kidney: Hyperechoic area seen medially: 1.0 x 1.1 x 0.9 cm. Suboptimal evaluation of pancreas on initial images. Visualized liver is small in size and heterogene ous in appearance with surrounding ascites. Gallbladder poorly distended with internal gallstones red emonstrated. Gallbladder wall measures 3 to 4 mm perhaps minimally dilated. Positive sonographic Murp hy's sign. Common bile duct mildly dilated. No intrahepatic ductal dilatation. No right-sided hydrone phrosis. IMPRESSION: Cirrhotic liver with small to moderate amount of periHepatic ascites redemonstrated. Abhishek tional Evidence of portal hypertension seen better on recent CT versus today's ultrasound. Gallstones redemonstrated. Additional sonographic findings nonspecific in patient with underlying hepatocellular disease. Acute cholecystitis cannot be excluded.
[2020-06-12] MEDS ORDERED: ONDANSETRON 4 MG/2 ML VIAL IVP PRN (19:38)
[2020-06-12] MEDS ORDERED: NALOXONE 0.4 MG/ML 1 ML VIAL IV PRN (19:38)
[2020-06-12] MEDS ORDERED: HYDROmorphone 1 MG/ML 1 ML SYRINGE IVP PRN (19:38)
[2020-06-12 20:00] LABS: Appearance,Urine Clear (Clear); Bilirubin,Urine Negative (Negative); Blood,Urine Small (Negative); Color,Urine Yellow; Glucose,Urine (UA) Negative (Negative); Ketones,Urine Negative (Negative); Leukocyte Esterase,Urine Negative (Negative); Mucus,Urine Rare /hpf; Nitrite,Urine Negative (Negative); Protein,Urine Negative (Negative); RBC,Urine 4 /hpf (0-5); Specific Gravity,Urine 1.011 (1.001-1.035); WBC,Urine 1 /hpf (0-5)
[2020-06-12] MEDS: SODIUM CHLORIDE 0.9% 1,000 ML IV SCH (20:00)
[2020-06-12] MEDS: HYDROmorphone 0.5 MG/0.5 ML SYRINGE IVP PRN ×2 (20:00→23:19)
[2020-06-13] MEDS: HYDROmorphone 0.5 MG/0.5 ML SYRINGE IVP PRN ×5 (05:47→22:16)
[2020-06-13 10:03] LABS: HCT 35.3 % (34.0-46.0); HGB 11.8 gm/dL (11.4-16.0); MCH 35.9 pg (25.0-35.0); MCHC 33.4 g/dL (31.0-37.0); MCV 107.4 fL (80.0-100.0); Macrocytosis Moderate; Mean Platelet Volume 9.1; RBC 3.29 m/uL (3.80-5.40); RDW 14.5 % (11.5-15.5); WBC 2.3 k/uL (3.8-10.6)
[2020-06-13 10:14] LABS: ALT 9 U/L (4-34); AST 30 U/L (14-36); African American GFR (CKD) >90 (>60 ml/min/1.73 sqM); Albumin 2.4 g/dL (3.5-5.0); Alkaline Phosphatase 54 U/L (38-126); Amylase <30 U/L (30-110); Anion Gap 4 mmol/L; Blood Urea Nitrogen 10 mg/dL (7-17); Calcium 8.1 mg/dL (8.4-10.2); Carbon Dioxide 22 mmol/L (22-30); Chloride 111 mmol/L (98-107); Glucose 63 mg/dL (74-99); Lipase 57 U/L (23-300); Non-African American GFR(CKD) >90 (>60 ml/min/1.73 sqM); Potassium 3.9 mmol/L (3.5-5.1); Sodium 137 mmol/L (137-145); Total Bilirubin 2.6 mg/dL (0.2-1.3); Total Protein 5.6 g/dL (6.3-8.2)
[2020-06-13 10:26] LABS: Platelet Count 45 k/uL (150-450)
[2020-06-13 10:58] LABS: Glucose,Whole Blood 71 mg/dL (75-99)
[2020-06-13 11:20] VITALS: BMI 22.4
[2020-06-13] MEDS: PANTOPRAZOLE 40 MG/10 ML VIAL IVP SCH ×2 (11:57→20:32)
[2020-06-13] MEDS: SODIUM CHLORIDE 0.9% 1,000 ML IV SCH ×2 (12:03→22:16)
--- NOTE | 2020-06-13 15:15 | P.GSCN ---
History of Present Illness Consult date: 06/13/20 History of present illness: CHIEF COMPLAINT: Abdominal pain HISTORY OF PRESENT ILLNESS: This is a 54-year-old female with a known history of COPD, GERD, hepatitis C, liver cirrhosis requiring paracentesis, esophageal varices, breast cancer and had not completed treatment. Patient presents to the emergency room with complaints of nausea vomiting with epigastric and right upper quadrant abdominal pain over the last 4-5 days. Apparently patient was in the hospital in May with similar symptoms she was initially scheduled for an EGD but left AGAINST MEDICAL ADVICE. Gallbladder ultrasound shows cirrhotic liver with small to moderate amount of perihepatic ascites redemonstrated. Additional evidence of portal hypertension seemed better on recent computed radha ography scan. Gallstones redemonstrated and underlying hepatocellular disease. Patient is currently on a low-fat diet. She's afebrile. She did have elevated total bilirubin of 2.8 on admission. Patient seen and examined with Dr. baker PAST MEDICAL HISTORY: See list. PAST SURGICAL HISTORY: See list. MEDICATIONS: See list. ALLERGIES: See list. SOCIAL HISTORY: No illicit drug use. REVIEW OF SYSTEMS: CONSTITUTIONAL: Denies fever or chills. HEENT: Denies blurred vision, vision changes, or eye pain. Denies hemoptysis CARDIOVASCULAR: Denies chest pain or pressure. RESPIRATORY: No shortness of breath. GASTROINTESTINAL: See HPI for pertinent findings HEMATOLOGIC: Denies bleeding disorders. GENITOURINARY: Denies any blood in urine or increased urinary frequency. SKIN: Denies pruitis. Denies rash. PHYSICAL EXAM: VITAL SIGNS: Reviewed GENERAL: Well-developed in no acute distress. HEENT: No sclera icterus. Extraocular movements grossly intact. Moist buccal mucosa. Head is atraumatic, normocephalic. No nasal drainage. ABDOMEN: Soft. Nondistended. Epigastric tenderness and right upper quadrant tenderness with palpation NEUROLOGIC: Alert and oriented. Cranial nerves II through XII grossly intact. LABORATORY DATA: WBC 2.3 Hgb 11.8 platelets 45 total bili 2.6 AST 9 ALT 54 lipase 57 IMAGING: Gallbladder ultrasound shows cirrhotic liver with small to moderate amount of perihepatic ascites redemonstrated. Additional evidence of portal hypertension seemed better on recent computed tomography scan. Gallstones redemonstrated and underlying hepatocellular disease. ASSESSMENT: 1. Right upper quadrant and epigastric abdominal pain 2. Cholelithiasis 3. History of liver cirrhosis PLAN: -Plan for outpatient laparoscopic cholecystectomy with Dr. Baker -No surgical intervention planned during this admission -Continue low-fat diet -Continue supportive care Thank you for this consultation Physician Conventions Reservationist note has been reviewed by physician. Signing provider agrees with the documented findings, assessment, and plan of care. Past Medical History Past Medical History: Cancer, COPD, GERD/Reflux, GI Bleed, Hearing Disorder / Deafness, Liver Disease Additional Past Medical History / Comment(s): Hepatitis C, intractable ascities with multiple paracentesis, cirrhosis, peritonitis, pancytopenia, vertigo once; multiple upper GI bleeds, esophageal varicies/esophageal banding, left breast cancer had chemo last on 09-12-16-did not tolerate-completed only 3 cycles-then it was stopped/received radiation treatments/no surgery yet but pt states she is to get a MRI to see if she can have surgery, lt ear deafness, R ear [place]. History of Any Multi-Drug Resistant Organisms: None Reported Past Surgical History: Adenoidectomy, Breast Surgery, Tonsillectomy Additional Past Surgical History / Comment(s): Multiple paracentesises, EGDs, esophageal banding, right chest mediport 08-06-16, l breast bx., Past Anesthesia/Blood Transfusion Reactions: No Reported Reaction Additional Past Anesthesia/Blood Transfusion Reaction / Comm: blood transfusions- no reaction Past Psychological History: Anxiety Additional Psychological History / Comment(s): Patient started smoking at age 14 yrs. old- 2 a pack a day and cut back to one to 3 cigarettes per day no history of alcohol abuse. Patient lives with her son. She is currently on disability. Smoking Status: Current every day smoker Past Alcohol Use History: None Reported Additional Past Alcohol Use History / Comment(s): Patient started smoking at age 14. She was a ppd smoker but cut back to one to 1-3 cigarettes per day in 2017. No history of alcohol abuse. Past Drug Use History: None Reported - Past Family History Mother Family Medical History: Cancer Additional Family Medical History / Comment(s): of lung ca at the age of 59yrs. She was a smoker. Father Family Medical History: Myocardial Infarction ([place]) Additional Family Medical History / Comment(s): from 2nd heart attack at the age of 59yrs. Medications and Allergies Home Medications Medication Instructions Recorded Confirmed Type HYDROmorphone [Dilaudid] 2 mg PO Q6H PRN 09/06/19 06/12/20 History Hydrocodone/Acetaminophen [[place] 1 tab PO Q6H 09/06/19 06/12/20 History 10-325] Allergies Allergy/AdvReac Type Severity Reaction Status Date / Time No Known Allergies Allergy Verified 06/12/20 17:38 Surgical - Exam Vital Signs Temp Pulse Resp BP Pulse Ox 97.8 F 102 H 18 128/57 94 L 06/12/20 16:01 06/12/20 16:01 06/12/20 16:01 06/12/20 16:01 06/12/20 16:01 Results - Labs 06/13/20 08:57 06/13/20 08:57 Abnormal Lab Results - Last 24 Hours (Table) 06/12/20 06/12/20 06/12/20 Range/Units 17:21 17:21 19:45 WBC 3.6 L (3.8-10.6) k/uL RBC (3.80-5.40) m/uL MCV 104.8 H (80.0-100.0) fL MCH 35.1 H (25.0-35.0) pg Plt Count 69 L (150-450) k/uL Lymphocytes # 0.8 L (1.0-4.8) k/uL Chloride (98-107) mmol/L Glucose 115 H (74-99) mg/dL POC Glucose (mg/dL) (75-99) mg/dL Calcium (8.4-10.2) mg/dL Total Bilirubin 2.8 H (0.2-1.3) mg/dL AST 38 H (14-36) U/L Total Protein (6.3-8.2) g/dL Albumin (3.5-5.0) g/dL Amylase (30-110) U/L Urine Blood Small H (Negative) Urine Mucus Rare H (None) /hpf 06/13/20 06/13/20 06/13/20 Range/Units 08:57 08:57 10:56 WBC 2.3 L (3.8-10.6) k/uL RBC 3.29 L (3.80-5.40) m/uL MCV 107.4 H (80.0-100.0) fL MCH 35.9 H (25.0-35.0) pg Plt Count 45 L (150-450) k/uL Lymphocytes # (1.0-4.8) k/uL Chloride 111 H (98-107) mmol/L Glucose 63 L (74-99) mg/dL POC Glucose (mg/dL) 71 L (75-99) mg/dL Calcium 8.1 L (8.4-10.2) mg/dL Total Bilirubin 2.6 H (0.2-1.3) mg/dL AST (14-36) U/L Total Protein 5.6 L (6.3-8.2) g/dL Albumin 2.4 L (3.5-5.0) g/dL Amylase <30 L (30-110) U/L Urine Blood (Negative) Urine Mucus (None) /hpf Diabetes panel 06/12/20 06/13/20 Range/Units 17:21 08:57 Sodium 138 137 (137-145) mmol/L Potassium 3.9 3.9 (3.5-5.1) mmol/L Chloride 106 111 H (98-107) mmol/L Carbon Dioxide 24 22 (22-30) mmol/L BUN 10 10 (7-17) mg/dL Creatinine 0.62 0.59 (0.52-1.04) mg/dL Glucose 115 H 63 L (74-99) mg/dL Calcium 9.0 8.1 L (8.4-10.2) mg/dL AST 38 H 30 (14-36) U/L ALT 16 9 (4-34) U/L Alkaline Phosphatase 79 54 (38-126) U/L Total Protein 7.6 5.6 L (6.3-8.2) g/dL Albumin 3.5 2.4 L (3.5-5.0) g/dL Calcium panel 06/12/20 06/13/20 Range/Units 17:21 08:57 Calcium 9.0 8.1 L (8.4-10.2) mg/dL Albumin 3.5 2.4 L (3.5-5.0) g/dL Pituitary panel 06/12/20 06/13/20 Range/Units 17:21 08:57 Sodium 138 137 (137-145) mmol/L Potassium 3.9 3.9 (3.5-5.1) mmol/L Chloride 106 111 H (98-107) mmol/L Carbon Dioxide 24 22 (22-30) mmol/L BUN 10 10 (7-17) mg/dL Creatinine 0.62 0.59 (0.52-1.04) mg/dL Glucose 115 H 63 L (74-99) mg/dL Calcium 9.0 8.1 L (8.4-10.2) mg/dL Adrenal panel 06/12/20 06/13/20 Range/Units 17:21 08:57 Sodium 138 137 (137-145) mmol/L Potassium 3.9 3.9 (3.5-5.1) mmol/L Chloride 106 111 H (98-107) mmol/L Carbon Dioxide 24 22 (22-30) mmol/L BUN 10 10 (7-17) mg/dL Creatinine 0.62 0.59 (0.52-1.04) mg/dL Glucose 115 H 63 L (74-99) mg/dL Calcium 9.0 8.1 L (8.4-10.2) mg/dL Total Bilirubin 2.8 H 2.6 H (0.2-1.3) mg/dL AST 38 H 30 (14-36) U/L ALT 16 9 (4-34) U/L Alkaline Phosphatase 79 54 (38-126) U/L Total Protein 7.6 5.6 L (6.3-8.2) g/dL Albumin 3.5 2.4 L (3.5-5.0) g/dL
--- NOTE | 2020-06-13 18:12 | HP ---
HISTORY AND PHYSICAL CHIEF COMPLAINT: Abdominal pain. HISTORY OF PRESENT ILLNESS: This is another admission for this 54-year-old white female who has a longstanding history of hepatitis C, cirrhosis, portal hypertension, ascites, COPD and carcinoma of the breast. She was in the hospital recently. It was felt that she probably had cholelithiasis and cholecystitis and surgery was being contemplated when she signed out. Now she is back in with the same symptoms without fever, chills, vomiting, etc. REVIEW OF SYSTEMS: Otherwise unremarkable. She has had no melena, hematochezia, urinary complaints, etc. She has not had a reaccumulation of her ascites for some time. Review of systems is otherwise unremarkable, and she has no other problems. Past medical history, family and personal and social histories reveal that she is on Vicodin 10 every 6 hours p.r.n., and she occasionally uses Dilaudid 2 mg every 6 hours to supplement. She continues to smoke but does not drink. PHYSICAL EXAMINATION: Blood pressure 132/64 with a pulse 72 and regular, respirations of 18. She is afebrile. In general she appeared to be chronically ill. She was pale. Head, ears, eyes, nose, mouth and throat were normal and the chest demonstrated clear breath sounds bilaterally. Cardiac exam demonstrated sinus rhythm and the abdomen was slightly protuberant and soft and there was ascites, but the abdomen was not particularly distended. She was tender in the epigastrium. Extremities were normal except for poor muscle size and strength. Neurologically she is intact. She is admitted to the hospital with the diagnoses: 1. Upper abdominal pain. 2. Possible cholecystitis. 3. Cholelithiasis. 4. Cirrhosis. 5. Hepatitis C. 6. Portal hypertension. 7. Ascites. 8. Chronic obstructive pulmonary disease. 9. Carcinoma of the breast. PLAN: 1. Bedrest. 2. IV fluids. 3. Analgesics. 4. General surgery consult as well as gastroenterology. MMODL / IJN: [id number] /
--- NOTE | 2020-06-13 18:25 | PN ---
PROGRESS NOTE DATE OF SERVICE: 06/13/2020 CHIEF COMPLAINT: Abdominal pain. HISTORY OF PRESENT ILLNESS: This lady is feeling a little bit better and the pain has lessened slightly. She is to be seen by Surgery and GI today. PHYSICAL EXAMINATION: She is afebrile. Chest is clear. Cardiac exam is normal. She is slightly tender in the right upper abdomen but does not allow an adequate exam. IMPRESSION: Possible cholecystitis and cholelithiasis. PLAN: Await evaluation by GI and Surgery. MMODL / IJN: [id number] /
[2020-06-14] MEDS: HYDROmorphone 0.5 MG/0.5 ML SYRINGE IVP PRN ×4 (02:30→14:09)
[2020-06-14] MEDS: PANTOPRAZOLE 40 MG/10 ML VIAL IVP SCH (08:08)
[2020-06-14 08:40] VITALS: BP 129/75; PULSE 73; RESP 16; TEMP 98.2
--- NOTE | 2020-06-14 09:03 | P.PN ---
Subjective Progress Note Date: 06/14/20 Principal diagnosis: Intractable nausea and vomiting Patient is seen and examined lying in bed. She states her nausea and vomiting have improved significantly. Still having right upper quadrant and epigastric pain. Patient still states she does not want to proceed with an upper endoscopy. She is to follow-up with surgical services to discuss outpatient cholecystectomy. Objective - Vital Signs Vital signs: Vital Signs Temp 98.2 F 06/14/20 08:20 Pulse 73 06/14/20 08:20 Resp 16 06/14/20 08:20 BP 129/75 06/14/20 08:20 Pulse Ox 94 L 06/14/20 08:20 Intake & Output 06/13/20 06/14/20 06/14/20 18:59 06:59 18:59 Intake Total 222 Balance 222 Weight 68.946 kg Intake: Oral 222 Other: Voiding Method Toilet # Voids 3 1 - Exam General appearance: The patient is alert, oriented, appears in no acute distress. HET: Head is normocephalic and atraumatic. Conjunctiva pink. Sclera anicteric. Neck: Supple without lymphadenopathy. Abdomen: Soft, right upper quadrant and epigastric tenderness, nondistended with bowel sounds. No guarding or rigidity. Extremities: Normal skin color and turgor. No pedal edema Skin: No rashes, no jaundice Neurological: No focal deficits. Alert and oriented 3. - Labs CBC & Chem 7: 06/13/20 08:57 06/13/20 08:57 Labs: Abnormal Lab Results - Last 24 Hours (Table) 06/13/20 06/13/20 06/13/20 Range/Units 08:57 08:57 10:56 WBC 2.3 L (3.8-10.6) k/uL RBC 3.29 L (3.80-5.40) m/uL MCV 107.4 H (80.0-100.0) fL MCH 35.9 H (25.0-35.0) pg Plt Count 45 L (150-450) k/uL Chloride 111 H (98-107) mmol/L Glucose 63 L (74-99) mg/dL POC Glucose (mg/dL) 71 L (75-99) mg/dL Calcium 8.1 L (8.4-10.2) mg/dL Total Bilirubin 2.6 H (0.2-1.3) mg/dL Total Protein 5.6 L (6.3-8.2) g/dL Albumin 2.4 L (3.5-5.0) g/dL Amylase <30 L (30-110) U/L Assessment and Plan (1) Nausea & vomiting Current Visit: Yes Status: Acute Code(s): R11.2 - NAUSEA WITH VOMITING, UNSPECIFIED SNOMED Code(s): 95439507 (2) Abdominal pain Current Visit: No Status: Acute Code(s): R10.9 - UNSPECIFIED ABDOMINAL PAIN SNOMED Code(s): 69577047 Plan: Supportive care Diet as tolerated Continue antiemetics as needed Surgical services on consult, patient to follow-up for outpatient cholecystectomy Upper endoscopy was offered to patient, patient declined at this time and would like to continue with medical management Recommend antiemetics for discharge home Patient instructed to follow-up with gastroenterology if symptoms persist Patient may be discharged home from a gastroenterology standpoint Thank you for this consultation Dr. Pina I agree with the dictator's note, documented as a scribe by Erin Arnett.
[2020-06-14 09:56] LABS: Basophils % (A) 1 %; Eosinophils # (A) 0.1 k/uL (0-0.7); Eosinophils % (A) 4 %; HCT 35.1 % (34.0-46.0); Lymphocytes % (A) 41 %; MCH 36.2 pg (25.0-35.0); MCHC 34.1 g/dL (31.0-37.0); Macrocytosis Moderate; Mean Platelet Volume 9.2; Monocytes # (A) 0.2 k/uL (0-1.0); Monocytes % (A) 8 %; Neutrophils # (A) 1.1 k/uL (1.3-7.7); Neutrophils % (A) 44 %; RBC 3.31 m/uL (3.80-5.40); RDW 14.3 % (11.5-15.5); WBC 2.4 k/uL (3.8-10.6)
[2020-06-14 10:04] LABS: Platelet Count 45 k/uL (150-450)
[2020-06-14 10:05] LABS: ALT 12 U/L (4-34); AST 26 U/L (14-36); African American GFR (CKD) >90 (>60 ml/min/1.73 sqM); Albumin 2.4 g/dL (3.5-5.0); Alkaline Phosphatase 54 U/L (38-126); Anion Gap 4 mmol/L; Blood Urea Nitrogen 11 mg/dL (7-17); Calcium 7.9 mg/dL (8.4-10.2); Carbon Dioxide 25 mmol/L (22-30); Chloride 107 mmol/L (98-107); Glucose 131 mg/dL (74-99); Non-African American GFR(CKD) 89 (>60 ml/min/1.73 sqM); Potassium 3.4 mmol/L (3.5-5.1); Sodium 136 mmol/L (137-145); Total Bilirubin 1.8 mg/dL (0.2-1.3); Total Protein 5.6 g/dL (6.3-8.2)
[2020-06-14] MEDS: SODIUM CHLORIDE 0.9% 1,000 ML IV SCH (11:09)
--- NOTE | 2020-06-14 12:35 | P.CONS ---
History of Present Illness - Reason for Consult Consult date: 06/13/20 Abdominal pain, nausea vomiting Requesting physician: Mark Estrada - Chief Complaint Abdominal pain, nausea and vomiting - History of Present Illness 54-year-old female with multiple medical comorbidities including breast cancer, decompensated cirrhosis of the liver with ascites, hypertension, pancytopenia, and prior history of esophageal varices who presented to the hospital with complaints of nausea and vomiting with pain. The patient reports multiple episodes of nausea and vomiting requiring over the past 4-5 days. Vomiting was worse with eating. She denies any dysphagia or odynophagia.. She reports associated sharp and cramping pain in the epigastric region of her abdomen in the right upper quadrant of her abdomen. The patient is had similar complaints in the past and was previously seen in May with similar complaints at which time EGD was offered but the patient decided to leave the hospital. Her last EGD was performed in 04/2016 for history of esophageal varices with obliterated distal varices noted at that time. Prior computed tomography scan of the abdomen showed asymmetric mucosal prominence of the pyloric channel with no chloe july obstruction noted. Review of Systems REVIEW OF SYSTEMS: CONSTITUTIONAL: Denies any fevers, chills, weight change or fatigue. CARDIOVASCULAR: Denies any chest pain, palpitations high or low blood pressures RESPIRATORY: Denies any shortness of breath, hemoptysis or cough. GENITOURINARY: No dysuria or hematuria. MUSCULOSKELETAL: No weakness reported. SKIN: Denies any new rashes or lesions, jaundice or pallor. PSYCHIATRIC: Denies any depression or anxiety. NEUROLOGY: Denies headache, denies any new focal deficits. EARS/NOSE/THROAT: No recent hearing change, congestion, nasal discharge or sore throat. EYES: No pain in eyes, discharge or change in vision. GASTROINTESTINAL: As per HPI. Past Medical History Past Medical History: Cancer, COPD, GERD/Reflux, GI Bleed, Hearing Disorder / Deafness, Liver Disease Additional Past Medical History / Comment(s): Hepatitis C, intractable ascities with multiple paracentesis, cirrhosis, peritonitis, pancytopenia, vertigo once; multiple upper GI bleeds, esophageal varicies/esophageal banding, left breast cancer had chemo last on 09-12-16-did not tolerate-completed only 3 cycles-then it was stopped/received radiation treatments/no surgery yet but pt states she is to get a MRI to see if she can have surgery, lt ear deafness, R ear [place]. History of Any Multi-Drug Resistant Organisms: None Reported Past Surgical History: Adenoidectomy, Breast Surgery, Tonsillectomy Additional Past Surgical History / Comment(s): Multiple paracentesises, EGDs, esophageal banding, right chest mediport 17, l breast bx., Past Anesthesia/Blood Transfusion Reactions: No Reported Reaction Additional Past Anesthesia/Blood Transfusion Reaction / Comm: blood transfusions- no reaction Past Psychological History: Anxiety Additional Psychological History / Comment(s): Patient started smoking at age 14 yrs. old- 2 a pack a day and cut back to one to 3 cigarettes per day no history of alcohol abuse. Patient lives with her son. She is currently on disability. Smoking Status: Current every day smoker Past Alcohol Use History: None Reported Additional Past Alcohol Use History / Comment(s): Patient started smoking at age 14. She was a ppd smoker but cut back to one to 1-3 cigarettes per day in 2017. No history of alcohol abuse. Past Drug Use History: None Reported - Past Family History Mother Family Medical History: Cancer Additional Family Medical History / Comment(s): of lung ca at the age of 59yrs. She was a smoker. Father Family Medical History: Myocardial Infarction ([place]) Additional Family Medical History / Comment(s): from 2nd heart attack at the age of 59yrs. Medications and Allergies Home Medications Medication Instructions Recorded Confirmed Type HYDROmorphone [Dilaudid] 2 mg PO Q6H PRN 09/06/19 06/12/20 History Hydrocodone/Acetaminophen [[place] 1 tab PO Q6H 09/06/19 06/12/20 History 10-325] Allergies Allergy/AdvReac Type Severity Reaction Status Date / Time No Known Allergies Allergy Verified 06/12/20 17:38 Physical Exam Vitals: Vital Signs Temp Pulse Pulse Resp BP BP Pulse Ox 06/13/20 08:40 98.1 F 82 14 121/76 96 06/13/20 05:23 95 06/13/20 04:40 90 L 06/13/20 03:00 97 06/13/20 01:58 16 96 06/13/20 01:45 15 95 06/13/20 01:41 98.7 F 78 15 114/53 87 L 06/12/20 22:04 98.0 F 84 16 119/73 95 06/12/20 22:01 98.0 F 84 16 119/73 95 06/12/20 21:30 77 16 119/68 95 06/12/20 19:03 80 18 128/87 98 06/12/20 17:44 82 18 104/68 96 06/12/20 16:01 97.8 F 102 H 18 128/57 94 L Intake and Output 06/12/20 06/13/20 06/13/20 22:59 06:59 14:59 Other: Voiding Method Toilet # Voids 1 1 Weight 68.946 kg 68.946 kg On physical examination, patient appears comfortable in no apparent distress. HEAD: Normocephalic, atraumatic. EYES: No scleral icterus. No conjunctival injection. MOUTH: No lesions, tongue midline. NECK: Trachea midline, no gross abnormalities. CHEST: Clear to auscultation with no wheezing or rhonchi appreciated. HEART: Regular rate and rhythm. ABDOMEN: Soft, thin and nontender to palpation. Bowel sounds are positive. No organomegaly. No guarding or rigidity. EXTREMITIES: No pedal edema. SKIN: No rashes, no jaundice. NEUROLOGIC: Alert and oriented x3. No focal deficits. Results CBC & Chem 7: 06/14/20 09:01 06/14/20 09:01 Labs: Abnormal Lab Results - Last 24 Hours (Table) 06/12/20 06/12/20 06/12/20 Range/Units 17:21 17:21 19:45 WBC 3.6 L (3.8-10.6) k/uL RBC (3.80-5.40) m/uL MCV 104.8 H (80.0-100.0) fL MCH 35.1 H (25.0-35.0) pg Plt Count 69 L (150-450) k/uL Lymphocytes # 0.8 L (1.0-4.8) k/uL Chloride (98-107) mmol/L Glucose 115 H (74-99) mg/dL POC Glucose (mg/dL) (75-99) mg/dL Calcium (8.4-10.2) mg/dL Total Bilirubin 2.8 H (0.2-1.3) mg/dL AST 38 H (14-36) U/L Total Protein (6.3-8.2) g/dL Albumin (3.5-5.0) g/dL Amylase (30-110) U/L Urine Blood Small H (Negative) Urine Mucus Rare H (None) /hpf 06/13/20 06/13/20 06/13/20 Range/Units 08:57 08:57 10:56 WBC 2.3 L (3.8-10.6) k/uL RBC 3.29 L (3.80-5.40) m/uL MCV 107.4 H (80.0-100.0) fL MCH 35.9 H (25.0-35.0) pg Plt Count 45 L (150-450) k/uL Lymphocytes # (1.0-4.8) k/uL Chloride 111 H (98-107) mmol/L Glucose 63 L (74-99) mg/dL POC Glucose (mg/dL) 71 L (75-99) mg/dL Calcium 8.1 L (8.4-10.2) mg/dL Total Bilirubin 2.6 H (0.2-1.3) mg/dL AST (14-36) U/L Total Protein 5.6 L (6.3-8.2) g/dL Albumin 2.4 L (3.5-5.0) g/dL Amylase <30 L (30-110) U/L Urine Blood (Negative) Urine Mucus (None) /hpf US - abdomen: report reviewed (Ultrasound abdomen significant for a cirrhotic- appearing liver with ascites.) Assessment and Plan (1) Nausea & vomiting Narrative/Plan: 54-year-old female with a known history of cirrhosis of liver with ascites who presented to the hospital with nausea and vomiting and abdominal pain. Similar hospitalization last month. She denies any triggers. She reports epigastric and right upper quadrant abdominal pain with multiple episodes of nausea and vomiting. Patient and offered EGD in the past but was refused. Prior computed tomography scan showed questionable evidence of pyloric channel prominence with no obstruction noted. Currently patient is feeling better with antiemetic therapy. Unclear if this is related to gastritis, peptic ulcer disease, marijuana hyperemesis syndrome or other etiology. Current Visit: Yes Status: Acute Code(s): R11.2 - NAUSEA WITH VOMITING, UNSPECIFIED SNOMED Code(s): 23132624 (2) Abdominal pain Current Visit: No Status: Acute Code(s): R10.9 - UNSPECIFIED ABDOMINAL PAIN SNOMED Code(s): 67480189 (3) Cirrhosis of liver Current Visit: No Status: Acute Code(s): K74.60 - UNSPECIFIED CIRRHOSIS OF LIVER SNOMED Code(s): 97170931 Plan: Supportive care Okay for diet as tolerated Protonix 40 mg twice daily added Zofran as needed for nausea Patient and offered endoscopic evaluation with EGD but would like to hold off at this time, all of the risks, benefits and possible, patient is of both proceeding with the procedure as well as medical management have been explained at length with all the patient's questions answered to her satisfaction Thank you for allowing us to participate in the care of the patient
--- NOTE | 2020-06-14 13:55 | P.PN ---
Subjective Progress Note Date: 06/14/20 CHIEF COMPLAINT: Abdominal pain HISTORY OF PRESENT ILLNESS: Patient is followed regarding her right upper quadrant epigastric abdominal pain. She has known gallstones. Patient is tolerating diet. Her pain is better today. She denies any nausea or vomiting. They're planning discharge. She's afebrile. PHYSICAL EXAM: VITAL SIGNS: Reviewed. GENERAL: Well-developed in no acute distress. HEENT: No sclera icterus. Extraocular movements grossly intact. Moist buccal mucosa. Head is atraumatic, normocephalic. ABDOMEN: Soft. Nondistended. Minimal tenderness right upper quadrant and epigastric area with palpation NEUROLOGIC: Alert and oriented. Cranial nerves II through XII grossly intact. ASSESSMENT: 1. Right upper quadrant and epigastric abdominal pain 2. Cholelithiasis 3. History of liver cirrhosis PLAN: -Patient is stable for discharge. -Plan for outpatient laparoscopic cholecystectomy with Dr. Mosquera -No surgical intervention planned during this admission -Continue low-fat diet Physician Fashion Patternmaker note has been reviewed by physician. Signing provider agrees with the documented findings, assessment, and plan of care. Objective - Vital Signs Vital signs: Vital Signs Temp 98.2 F 06/14/20 08:20 Pulse 73 06/14/20 08:20 Resp 16 06/14/20 08:20 BP 129/75 06/14/20 08:20 Pulse Ox 94 L 06/14/20 08:20 Intake & Output 06/13/20 06/14/20 06/14/20 18:59 06:59 18:59 Intake Total 222 Balance 222 Weight 68.946 kg Intake: Oral 222 Other: Voiding Method Toilet # Voids 3 1 - Labs CBC & Chem 7: 06/14/20 09:01 06/14/20 09:01 Labs: Abnormal Lab Results - Last 24 Hours (Table) 06/14/20 06/14/20 Range/Units 09:01 09:01 WBC 2.4 L (3.8-10.6) k/uL RBC 3.31 L (3.80-5.40) m/uL MCV 106.0 H (80.0-100.0) fL MCH 36.2 H (25.0-35.0) pg Plt Count 45 L (150-450) k/uL Neutrophils # 1.1 L (1.3-7.7) k/uL Sodium 136 L (137-145) mmol/L Potassium 3.4 L (3.5-5.1) mmol/L Glucose 131 H (74-99) mg/dL Calcium 7.9 L (8.4-10.2) mg/dL Total Bilirubin 1.8 H (0.2-1.3) mg/dL Total Protein 5.6 L (6.3-8.2) g/dL Albumin 2.4 L (3.5-5.0) g/dL
--- NOTE | 2020-06-14 15:39 | DS ---
DISCHARGE SUMMARY CHIEF COMPLAINT: Abdominal pain. HISTORY OF PRESENT ILLNESS AND PHYSICAL EXAM: Details of this lady's history and physical can be found in the initial workup. LABORATORY STUDIES: While she was in the hospital she had laboratory studies, details of which can be found in the laboratory section of her chart. COURSE IN THE HOSPITAL: After admission she was placed on bedrest, started on intravenous fluids and seen in consult by General Surgery. She was also seen by GI. Surgery felt that she did not require an operation at this time, but wanted her to be seen in followup. She will go home on usual activity and diet and medication and we will see her in several days and will make an appointment for her to follow up with Surgery. FINAL DIAGNOSES: 1. Right upper quadrant abdominal pain. 2. Cholecystitis. 3. Cholelithiasis. 4. Cirrhosis. 5. Hepatitis C. 6. Portal hypertension. 7. Ascites. 8. Chronic obstructive pulmonary disease. 9. Carcinoma of the breast. OPERATIONS: None. CONSULTATION: GI and General Surgery. She is improved. MMODL / IJN: [id number] /
== END 2020-06-14 14:43 | disposition home or self-care (01) | DRG 445 ==
LOC: EC 15:55 → 6PED 20:09 → OBSVTOIN 06-13 15:23 → 6NMEDSUR 06-14 04:07 → 6PED 06-14 04:13
PROVIDERS: ADMIT Family Medicine; ATTEND Family Medicine
DX: K80.10 Calculus of gallbladder with chronic cholecystitis without obstruction (principal); K76.6 Portal hypertension; R18.8 Other ascites; K74.60 Unspecified cirrhosis of liver; B19.20 Unspecified viral hepatitis C without hepatic coma; J44.9 Chronic obstructive pulmonary disease, unspecified; K21.9 Gastro-esophageal reflux disease without esophagitis; K76.9 Liver disease, unspecified; Z85.3 Personal history of malignant neoplasm of breast; F17.210 Nicotine dependence, cigarettes, uncomplicated; H91.93 Unspecified hearing loss, bilateral; Z20.822 Contact with and (suspected) exposure to COVID-19; Z92.21 Personal history of antineoplastic chemotherapy
CPT/HCPCS: 36415; 76705; 80053; 81001; 82150; 83690; 85025; 85027; 87635; 96361; 96374; 96375; 96376; 99285

== ENCOUNTER 2020-07-23 01:25 | Emergency (ER) | payer MEDICARE, OTHER ==
[2020-07-23 01:32] VITALS: RESP 20
[2020-07-23] MEDS ORDERED: HYDROcodone/APAP 10-325MG 1 EACH TAB PO ONE (01:51)
--- NOTE | 2020-07-23 01:52 | ED ---
Recheck HPI - General Chief Complaint: Recheck/Abnormal Lab/Rx Stated Complaint: Abdominal pain Time Seen by Provider: 07/23/20 01:37 Source: patient Mode of arrival: ambulatory - History of Present Illness MD Complaint: medication refill request Onset/Timin -: days(s) Returns Today for: request for prescription Symptoms Since Prior Visit: no new symptoms Associated Symptoms: none - Related Data Home Medications Medication Instructions Recorded Confirmed HYDROmorphone [Dilaudid] 2 mg PO Q6H PRN 09/06/19 07/23/20 Hydrocodone/Acetaminophen [Hydes 1 tab PO Q6H 09/06/19 07/23/20 10-325] Previous Rx's Medication Instructions Recorded HYDROcodone/APAP 10-325MG [Hydes 1 tab PO Q6HR PRN 1 Days #4 tab 07/23/20 10-325] Allergies Allergy/AdvReac Type Severity Reaction Status Date / Time No Known Allergies Allergy Verified 07/23/20 01:32 Review of Systems ROS Statement: Those systems with pertinent positive or pertinent negative responses have been documented in the HPI. ROS Other: All systems not noted in ROS Statement are negative. Constitutional: Denies: fever, weakness Respiratory: Denies: cough, dyspnea Cardiovascular: Denies: chest pain Gastrointestinal: Reports: abdominal pain (Chronic), nausea. Denies: vomiting, diarrhea Neurological: Denies: headache Psychiatric: Reports: anxiety Past Medical History Past Medical History: Cancer, COPD, GERD/Reflux, GI Bleed, Hearing Disorder / Deafness, Liver Disease Additional Past Medical History / Comment(s): Hepatitis C, intractable ascities with multiple paracentesis, cirrhosis, peritonitis, pancytopenia, vertigo once; multiple upper GI bleeds, esophageal varicies/esophageal banding, left breast cancer had chemo last on 09-12-16-did not tolerate-completed only 3 cycles-then it was stopped/received radiation treatments/no surgery yet but pt states she is to get a MRI to see if she can have surgery, lt ear deafness, R ear [place]. History of Any Multi-Drug Resistant Organisms: None Reported Past Surgical History: Adenoidectomy, Breast Surgery, Tonsillectomy Additional Past Surgical History / Comment(s): Multiple paracentesises, EGDs, esophageal banding, right chest mediport 08-06-16, l breast bx., Past Anesthesia/Blood Transfusion Reactions: No Reported Reaction Additional Past Anesthesia/Blood Transfusion Reaction / Comment(s): blood transfusions- no reaction Past Psychological History: Anxiety Smoking Status: Current every day smoker Past Alcohol Use History: None Reported Past Drug Use History: None Reported - Past Family History Mother Family Medical History: Cancer Additional Family Medical History / Comment(s): of lung ca at the age of 59yrs. She was a smoker. Father Family Medical History: Myocardial Infarction ([place]) Additional Family Medical History / Comment(s): from 2nd heart attack at the age of 59yrs. General Exam General appearance: alert, in no apparent distress Respiratory exam: Present: normal lung sounds bilaterally. Absent: respiratory distress, wheezes, rales, rhonchi, stridor Cardiovascular Exam: Present: regular rate, normal rhythm, normal heart sounds. Absent: systolic murmur, diastolic murmur, rubs, gallop GI/Abdominal exam: Present: soft. Absent: tenderness, guarding Neurological exam: Present: alert Skin exam: Present: warm, dry, intact, normal color. Absent: rash Course Vital Signs 07/23/20 01:28 Temperature 98.0 F Pulse Rate 101 H Respiratory 20 Rate Blood Pressure 138/65 O2 Sat by Pulse 95 Oximetry Disposition Clinical Impression: Prescription requested Disposition: HOME SELF-CARE Condition: Good Prescriptions: HYDROcodone/APAP 10-325MG [Hydes 10-325] 1 tab PO Q6HR PRN 1 Days #4 tab PRN Reason: Pain Is patient prescribed a controlled substance at d/c from ED?: Yes When asked, does pt state using other controlled substances?: Yes If prescribed controlled substance>3 days was MAPS reviewed?: Yes If opioid is for acute pain is fill amount 7 days or less?: Yes Referrals: Mark Estrada MD [Primary Care Provider] - 1-2 days
[2020-07-23] MEDS ORDERED: HYDROmorphone 1 MG/ML 1 ML SYRINGE IM STA (02:20)
[2020-07-23 03:01] VITALS: BP 131/79; PULSE 96; TEMP 97.2
== END 2020-07-23 02:48 | disposition home or self-care (01) ==
LOC: EC 01:25
DX: Z76.0 Encounter for issue of repeat prescription (principal); F17.200 Nicotine dependence, unspecified, uncomplicated; J44.9 Chronic obstructive pulmonary disease, unspecified; Z85.3 Personal history of malignant neoplasm of breast
CPT/HCPCS: 99282; J1170

== ENCOUNTER 2020-12-12 15:37 | Inpatient (IN) | payer MEDICARE, OTHER ==
[2020-12-12] MEDS ORDERED: ONDANSETRON 4 MG/2 ML VIAL IVP STA (16:22)
[2020-12-12] MEDS ORDERED: HYDROmorphone 1 MG/ML 1 ML SYRINGE IVP STA ×2 (16:22→17:54)
[2020-12-12 17:00] LABS: Basophils % (A) 0 %; Eosinophils % (A) 1 %; HCT 39.4 % (34.0-46.0); HGB 13.2 gm/dL (11.4-16.0); Lymphocytes # (A) 0.6 k/uL (1.0-4.8); Lymphocytes % (A) 26 %; MCH 36.5 pg (25.0-35.0); MCHC 33.4 g/dL (31.0-37.0); Macrocytosis Marked; Mean Platelet Volume 8.7; Monocytes # (A) 0.1 k/uL (0-1.0); Monocytes % (A) 4 %; Neutrophils # (A) 1.5 k/uL (1.3-7.7); Neutrophils % (A) 65 %; RBC 3.61 m/uL (3.80-5.40); RDW 14.5 % (11.5-15.5); WBC 2.3 k/uL (3.8-10.6)
[2020-12-12 17:03] LABS: ALT 14 U/L (4-34); AST 34 U/L (14-36); African American GFR (CKD) >90 (>60 ml/min/1.73 sqM); Albumin 3.2 g/dL (3.5-5.0); Alkaline Phosphatase 92 U/L (38-126); Amylase 39 U/L (30-110); Blood Urea Nitrogen 10 mg/dL (7-17); Calcium 8.9 mg/dL (8.4-10.2); Carbon Dioxide 23 mmol/L (22-30); Chloride 110 mmol/L (98-107); Glucose 105 mg/dL (74-99); Lipase 90 U/L (23-300); Non-African American GFR(CKD) >90 (>60 ml/min/1.73 sqM); Total Bilirubin 2.1 mg/dL (0.2-1.3); Total Protein 7.2 g/dL (6.3-8.2)
[2020-12-12 17:04] LABS: MCV 109.2 fL (80.0-100.0); Platelet Count 54 k/uL (150-450)
[2020-12-12 17:05] LABS: Anion Gap 5 mmol/L; Potassium 3.9 mmol/L (3.5-5.1); Sodium 138 mmol/L (137-145)
[2020-12-12 17:09] LABS: INR 1.2 (<1.2); Partial Thromboplastin Time 26.7 sec (22.0-30.0); Prothrombin Time 12.9 sec (9.0-12.0)
--- NOTE | 2020-12-12 17:20 | CT ---
EXAMINATION TYPE: CT abdomen pelvis wo con DATE OF EXAM: 12/12/2020 COMPARISON: 05/26/2020. HISTORY: Abdominal pain and distention. CT DLP: 700.4 mGycm Automated exposure control for dose reduction was used. TECHNIQUE: Helical acquisition of images was performed from the lung bases through the pelvis. FINDINGS: LUNG BASES: No significant abnormality is appreciated. LIVER/GB: No acute abnormality is appreciated. Cholelithiasis or acute cholecystitis. No focal hepati c lesion is seen. Subtle mild hepatic nodular contour. Calcifications within the portal vein is agai n compatible with noncardiogenic transformation. PANCREAS: No significant abnormality is seen. SPLEEN: Splenomegaly without acute abnormality is seen. ADRENALS: No significant abnormality is seen. KIDNEYS: No significant abnormality is seen. FREE AIR: No free air is visualized RETROPERITONEAL ADENOPATHY: None visualized REPRODUCTIVE ORGANS: No significant abnormality is seen URINARY BLADDER: No significant abnormality is seen. PELVIC ADENOPATHY: None visualized. OSSEOUS STRUCTURES: No significant abnormality is seen. BOWEL: No bowel obstruction or free air. OTHER: Large volume abdominal/pelvic ascites. IMPRESSION: Recurrent large volume abdominal/pelvic ascites in setting of liver cirrhosis with portal hypertensio n. Splenomegaly. No bowel obstruction.
[2020-12-12] MEDS ORDERED: NALOXONE 0.4 MG/ML 1 ML VIAL IV PRN (18:02)
[2020-12-12] MEDS ORDERED: ONDANSETRON 4 MG/2 ML VIAL IVP PRN (18:02)
--- NOTE | 2020-12-12 18:02 | ED ---
Abdominal Pain HPI - General Chief Complaint: Abdominal Pain Stated Complaint: Abd Pain Time Seen by Provider: 12/12/20 16:15 Source: patient, RN notes reviewed Mode of arrival: ambulatory Limitations: no limitations - History of Present Illness Initial Comments: Patient is a 55-year-old female that presents to emergency department with a distended abdomen. She notes she does have a history of hepatitis C and liver issues and she has had to get regular paracentesis is done in the past. She notes she was sent by her primary care. She notes that she was in significant pain and discomfort upon arrival. She notes that the lauded worked well for he r. She denied any other issues or complaints. She notes her last bowel movement was earlier today. She denied any chest pain shortness of breath headache nausea vomiting diarrhea constipation fever fatigue chills. - Related Data Home Medications Medication Instructions Recorded Confirmed HYDROmorphone [Dilaudid] 2 mg PO Q6H PRN 09/06/19 12/12/20 Hydrocodone/Acetaminophen [[place] 1 tab PO Q6H 09/06/19 12/12/20 10-325] Furosemide [Lasix] 40 mg PO DAILY PRN 12/12/20 12/12/20 Allergies Allergy/AdvReac Type Severity Reaction Status Date / Time No Known Allergies Allergy Verified 12/12/20 17:13 Review of Systems ROS Statement: Those systems with pertinent positive or pertinent negative responses have been documented in the HPI. ROS Other: All systems not noted in ROS Statement are negative. Past Medical History Past Medical History: Cancer, COPD, GERD/Reflux, GI Bleed, Hearing Disorder / Deafness, Liver Disease Additional Past Medical History / Comment(s): Hepatitis C, intractable ascities with multiple paracentesis, cirrhosis, peritonitis, pancytopenia, vertigo once; multiple upper GI bleeds, esophageal varicies/esophageal banding, left breast cancer had chemo last on 09-12-16-did not tolerate-completed only 3 cycles-then it was stopped/received radiation treatments/no surgery yet but pt states she is to get a MRI to see if she can have surgery, lt ear deafness, R ear [place]. History of Any Multi-Drug Resistant Organisms: None Reported Past Surgical History: Adenoidectomy, Breast Surgery, Tonsillectomy Additional Past Surgical History / Comment(s): Multiple paracentesises, EGDs, esophageal banding, right chest mediport 5-3-17, l breast bx., Past Anesthesia/Blood Transfusion Reactions: No Reported Reaction Additional Past Anesthesia/Blood Transfusion Reaction / Comment(s): blood transfusions- no reaction Past Psychological History: Anxiety Smoking Status: Current every day smoker Past Alcohol Use History: None Reported Past Drug Use History: None Reported - Past Family History Mother Family Medical History: Cancer Additional Family Medical History / Comment(s): of lung ca at the age of 59yrs. She was a smoker. Father Family Medical History: Myocardial Infarction ([place]) Additional Family Medical History / Comment(s): from 2nd heart attack at the age of 59yrs. General Exam Limitations: no limitations General appearance: alert, in no apparent distress Head exam: Present: atraumatic, normocephalic, normal inspection Eye exam: Present: normal appearance, PERRL, EOMI. Absent: scleral icterus, conjunctival injection, periorbital swelling Neck exam: Present: normal inspection Respiratory exam: Present: normal lung sounds bilaterally. Absent: respiratory distress, wheezes, rales, rhonchi, stridor Cardiovascular Exam: Present: regular rate, normal rhythm, normal heart sounds. Absent: systolic murmur, diastolic murmur, rubs, gallop, clicks GI/Abdominal exam: Present: soft, distended, tenderness (Generalized throughout), diminished bowel sounds. Absent: guarding, rebound, rigid Extremities exam: Present: normal inspection, full ROM, normal capillary refill. Absent: tenderness, pedal edema, joint swelling, calf tenderness Neurological exam: Present: alert, oriented X3 Psychiatric exam: Present: normal affect, normal mood Course Vital Signs 12/12/20 12/12/20 16:07 17:49 Temperature 97.8 F Pulse Rate 89 87 Respiratory 18 18 Rate Blood Pressure 137/75 129/76 O2 Sat by Pulse 98 98 Oximetry Medical Decision Making - Medical Decision Making 55-year-old female with a history of hepatitis C complaining of abdominal swelling. Regularly gets paracentesis his. Basic labs, computed tomography scan ordered. Labs: White blood cells 2.3 red blood cells 3.61 lactic acid 2.1, rest unremarkable. Computed tomography scan shows a large recurrent abdominal/pelvic ascites. Case discussed with Dr. Dewitt, patient will be admitted. Dr. Estrada was consulted AT the admit with interventional radiology on consult. - Lab Data Result diagrams: 12/12/20 16:44 12/12/20 16:44 Lab Results 12/12/20 12/12/20 12/12/20 Range/Units 16:44 16:44 16:44 WBC 2.3 L (3.8-10.6) k/uL RBC 3.61 L (3.80-5.40) m/uL Hgb 13.2 (11.4-16.0) gm/dL Hct 39.4 (34.0-46.0) % MCV 109.2 H (80.0-100.0) fL MCH 36.5 H (25.0-35.0) pg MCHC 33.4 (31.0-37.0) g/dL RDW 14.5 (11.5-15.5) % Plt Count 54 L (150-450) k/uL MPV 8.7 Neutrophils % 65 % Lymphocytes % 26 % Monocytes % 4 % Eosinophils % 1 % Basophils % 0 % Neutrophils # 1.5 (1.3-7.7) k/uL Lymphocytes # 0.6 L (1.0-4.8) k/uL Monocytes # 0.1 (0-1.0) k/uL Eosinophils # 0.0 (0-0.7) k/uL Basophils # 0.0 (0-0.2) k/uL Macrocytosis Marked A PT 12.9 H (9.0-12.0) sec INR 1.2 H (<1.2) APTT 26.7 (22.0-30.0) sec Sodium 138 (137-145) mmol/L Potassium 3.9 (3.5-5.1) mmol/L Chloride 110 H (98-107) mmol/L Carbon Dioxide 23 (22-30) mmol/L Anion Gap 5 mmol/L BUN 10 (7-17) mg/dL Creatinine 0.56 (0.52-1.04) mg/dL Est GFR (CKD-EPI)AfAm >90 (>60 ml/min/1.73 sqM) Est GFR (CKD-EPI)NonAf >90 (>60 ml/min/1.73 sqM) Glucose 105 H (74-99) mg/dL Plasma Lactic Acid [place]ri[place] (0.7-2.0) mmol/L Calcium 8.9 (8.4-10.2) mg/dL Total Bilirubin 2.1 H (0.2-1.3) mg/dL AST 34 (14-36) U/L ALT 14 (4-34) U/L Alkaline Phosphatase 92 (38-126) U/L Troponin I (0.000-0.034) ng/mL Total Protein 7.2 (6.3-8.2) g/dL Albumin 3.2 L (3.5-5.0) g/dL Amylase 39 (30-110) U/L Lipase 90 (23-300) U/L 12/12/20 12/12/20 Range/Units 16:44 16:44 WBC (3.8-10.6) k/uL RBC (3.80-5.40) m/uL Hgb (11.4-16.0) gm/dL Hct (34.0-46.0) % MCV (80.0-100.0) fL MCH (25.0-35.0) pg MCHC (31.0-37.0) g/dL RDW (11.5-15.5) % Plt Count (150-450) k/uL MPV Neutrophils % % Lymphocytes % % Monocytes % % Eosinophils % % Basophils % % Neutrophils # (1.3-7.7) k/uL Lymphocytes # (1.0-4.8) k/uL Monocytes # (0-1.0) k/uL Eosinophils # (0-0.7) k/uL Basophils # (0-0.2) k/uL Macrocytosis PT (9.0-12.0) sec INR (<1.2) APTT (22.0-30.0) sec Sodium (137-145) mmol/L Potassium (3.5-5.1) mmol/L Chloride (98-107) mmol/L Carbon Dioxide (22-30) mmol/L Anion Gap mmol/L BUN (7-17) mg/dL Creatinine (0.52-1.04) mg/dL Est GFR (CKD-EPI)AfAm (>60 ml/min/1.73 sqM) Est GFR (CKD-EPI)NonAf (>60 ml/min/1.73 sqM) Glucose (74-99) mg/dL Plasma Lactic Acid [place] 2.1 H* (0.7-2.0) mmol/L Calcium (8.4-10.2) mg/dL Total Bilirubin (0.2-1.3) mg/dL AST (14-36) U/L ALT (4-34) U/L Alkaline Phosphatase (38-126) U/L Troponin I <0.012 (0.000-0.034) ng/mL Total Protein (6.3-8.2) g/dL Albumin (3.5-5.0) g/dL Amylase (30-110) U/L Lipase (23-300) U/L - Radiology Data Radiology results: report reviewed, image reviewed CT of the abdomen and pelvis: Recurrent large-volume abdominal pelvic ascites in setting of liver cirrhosis with portal hypertension. Splenomegaly. No bowel obstruction. Disposition Clinical Impression: Ascites, Portal hypertension Disposition: ADMITTED IP TO THIS HOSP Condition: Stable Is patient prescribed a controlled substance at d/c from ED?: No Referrals: Mark Estrada MD [Primary Care Provider] - 1-2 days Time of Disposition: 18:02
[2020-12-12] MEDS: SODIUM CHLORIDE 0.9% 1,000 ML IV SCH (19:01)
[2020-12-12 21:58] LABS: Appearance,Urine Clear (Clear); Bilirubin,Urine Negative (Negative); Blood,Urine Trace (Negative); Color,Urine Yellow; Glucose,Urine (UA) Negative (Negative); Hyaline Casts,Urine 3 /lpf (0-2); Ketones,Urine Negative (Negative); Leukocyte Esterase,Urine Negative (Negative); Mucus,Urine Many /hpf; Nitrite,Urine Negative (Negative); PH, Urine 5.5 (5.0-8.0); Protein,Urine Negative (Negative); RBC,Urine 1 /hpf (0-5); Specific Gravity,Urine 1.014 (1.001-1.035); Squamous Epithelial Cell,Urine <1 /hpf (0-4); WBC,Urine 1 /hpf (0-5)
[2020-12-12] MEDS: HYDROmorphone 1 MG/ML 1 ML SYRINGE IVP PRN (22:36)
[2020-12-13] MEDS: HYDROmorphone 1 MG/ML 1 ML SYRINGE IVP PRN ×7 (03:00→21:35)
[2020-12-13] MEDS: SODIUM CHLORIDE 0.9% 1,000 ML IV SCH ×2 (06:04→19:28)
[2020-12-13] MEDS: NICOTINE 21MG/24HR PATCH TRANSDERM SCH ×2 (16:13→18:15)
--- NOTE | 2020-12-13 19:39 | PN ---
PROGRESS NOTE CHIEF COMPLAINT: Ascites. HISTORY OF PRESENT ILLNESS: This lady continues to have discomfort and she is going today for paracentesis. PHYSICAL EXAMINATION: Vital signs are normal. Chest is clear. The abdomen is tender throughout. IMPRESSION: 1. Cirrhosis with ascites. 2. Carcinoma of the breast. 3. Chronic obstructive pulmonary disease. 4. Hepatitis C. PLAN: Paracentesis today. MMODL / IJN: [id number] /
[2020-12-13 19:44] VITALS: RESP 18
--- NOTE | 2020-12-13 19:44 | HP ---
HISTORY AND PHYSICAL CHIEF COMPLAINT: Abdominal pain and intractable ascites. HISTORY OF PRESENT ILLNESS: This is another admission for this 55-year-old white female who has a longstanding history of cirrhosis secondary to alcoholism, and hepatitis C. She had has portal hypertension and intermittently develops ascites. She was having very frequent return of her symptoms a year or 2 ago and was coming in on a periodic basis for paracentesis. However, she was started on a diuretic program and when she was on it, she did not reaccumulate fluid. She is not drinking. She came in on the day of admission with redevelopment of her ascites with abdominal pain. She has had peritonitis in the past but she had no fever. She stated that she had stopped taking her diuretics because she had to go upstairs to go to the bathroom and this was, "too much trouble." She also has a history of carcinoma of the breast and COPD. When she presented to the office, she was sent to the emergency room to see if she could receive the paracentesis as an outpatient, but this was not able to be arranged. She was admitted. REVIEW OF SYSTEMS: She has had no fever or chills. She has had no vomiting, diarrhea, melena, urinary complaints, etc. Past medical history, family history and personal and social histories are all otherwise unremarkable or unchanged. She has only been taking Vicodin and Dilaudid for pain. PHYSICAL EXAMINATION: Blood pressure is 105/70 with a pulse of 83, respirations of 27, and she is afebrile. In GENERAL, she appeared to be pale, weak, chronically ill and debilitated. HEAD, ears, eyes, nose, mouth and throat demonstrated dry skin and mucous membranes. NECK veins not distended. CHEST demonstrated scattered rales. CARDIAC exam demonstrated sinus rhythm and no murmurs or extra sounds. ABDOMEN was slightly distended with ascites and tender. No definite masses were appreciated. EXTREMITIES are normal except for 2 to 3+ edema. NEUROLOGICALLY she is intact. IMPRESSION: She is admitted to the hospital with diagnoses of: 1. Intractable ascites. 2. Cirrhosis with portal hypertension. 3. Hepatitis C. 4. Alcoholism. 5. Chronic obstructive pulmonary disease. PLAN: 1. Bedrest. 2. IV fluids. 3. Consult with Interventional Radiology. MMODL / IJN: [id number] /
[2020-12-13 19:50] LABS: Basophils % (A) 0 %; Eosinophils # (A) 0.1 k/uL (0-0.7); Eosinophils % (A) 3 %; HCT 33.5 % (34.0-46.0); HGB 11.6 gm/dL (11.4-16.0); Lymphocytes % (A) 44 %; MCH 38.1 pg (25.0-35.0); MCHC 34.7 g/dL (31.0-37.0); Macrocytosis Marked; Monocytes # (A) 0.2 k/uL (0-1.0); Monocytes % (A) 7 %; Neutrophils # (A) 0.9 k/uL (1.3-7.7); Neutrophils % (A) 41 %; RBC 3.05 m/uL (3.80-5.40); RDW 13.8 % (11.5-15.5); WBC 2.3 k/uL (3.8-10.6)
[2020-12-13 19:53] LABS: ALT 10 U/L (4-34); AST 26 U/L (14-36); African American GFR (CKD) >90 (>60 ml/min/1.73 sqM); Albumin 2.3 g/dL (3.5-5.0); Albumin/Globulin Ratio 0.7; Alkaline Phosphatase 68 U/L (38-126); Anion Gap 2 mmol/L; Blood Urea Nitrogen 13 mg/dL (7-17); Calcium 7.8 mg/dL (8.4-10.2); Carbon Dioxide 28 mmol/L (22-30); Chloride 108 mmol/L (98-107); Globulin 3.5 g/dL; Glucose 104 mg/dL (74-99); Non-African American GFR(CKD) 80 (>60 ml/min/1.73 sqM); Potassium 4.1 mmol/L (3.5-5.1); Sodium 138 mmol/L (137-145); Total Bilirubin 0.9 mg/dL (0.2-1.3); Total Protein 5.8 g/dL (6.3-8.2)
[2020-12-13 19:55] LABS: MCV 109.9 fL (80.0-100.0); Platelet Count 43 k/uL (150-450)
[2020-12-14] MEDS: HYDROmorphone 1 MG/ML 1 ML SYRINGE IVP PRN ×4 (00:46→11:41)
[2020-12-14 03:53] VITALS: BP 116/69; PULSE 93; TEMP 97.5
[2020-12-14] MEDS: SODIUM CHLORIDE 0.9% 1,000 ML IV SCH (03:59)
--- NOTE | 2020-12-14 08:12 | US ---
Ultrasound-guided paracentesis. DATE OF EXAM: 12/13/2020 CLINICAL HISTORY: Ascites The procedure was discussed with the patient. The risks, complications, benefits, and alternatives we re discussed and any questions were answered. Informed consent was obtained. The patient was placed s upine on the ultrasound table and prepped and draped in the usual sterile fashion. All elements of maximal barrier technique were utilized. Under ultrasound guidance, access into the right lower quadrant was obtained, via the paracentesis catheter system and direct ultrasound guidanc e. Approximately 7.5 liters of straw-colored fluid was removed. The patient was stable throughout the pr ocedure and remained stable upon discharge from Department of Radiology. IMPRESSION: Successful paracentesis under ultrasound guidance.
--- NOTE | 2020-12-14 19:33 | DS ---
DISCHARGE SUMMARY DATE OF DISCHARGE: 12/14/2020 CHIEF COMPLAINT: Intractable abdominal pain and ascites with cirrhosis. HISTORY OF PRESENT ILLNESS AND PHYSICAL EXAMINATION: Details of this lady's history and physical can be found in the initial workup. LABORATORY STUDIES: While she was in the hospital she had laboratory studies, details of which can be found in the laboratory section of her chart. COURSE IN THE HOSPITAL: After admission she was placed on bedrest, started on intravenous fluids and referred to Interventional Radiology. They took off about 7 L of fluid and she remained hemodynamically stable overnight. It was felt she could she go home on her usual activity, diet and medications, and she was encouraged to go back on her diuretics. We will follow up with her in a day or two. FINAL DIAGNOSIS: 1. Intractable abdominal pain secondary to massive ascites. 2. Cirrhosis. 3. Hepatitis C. 4. History of alcoholism. 5. History of carcinoma of the breast. 6. Chronic obstructive pulmonary disease. OPERATION: Paracentesis. CONSULTATION: Interventional Radiology. She is improved. MMODL / IJN: [id number] /
== END 2020-12-14 12:55 | disposition home or self-care (01) | DRG 433 ==
LOC: EC 15:37 → 5NMEDONC 18:15
PROVIDERS: ADMIT Family Medicine; ATTEND Family Medicine
PROC: 0W9G3ZZ Drainage of Peritoneal Cavity, Percutaneous Approach (ICD-10-PCS; principal; 2020-12-12)
DX: K70.31 Alcoholic cirrhosis of liver with ascites (principal); K76.6 Portal hypertension; F10.21 Alcohol dependence, in remission; J44.9 Chronic obstructive pulmonary disease, unspecified; B19.20 Unspecified viral hepatitis C without hepatic coma; Z79.891 Long term (current) use of opiate analgesic; K21.9 Gastro-esophageal reflux disease without esophagitis; H91.90 Unspecified hearing loss, unspecified ear; K76.9 Liver disease, unspecified; F17.210 Nicotine dependence, cigarettes, uncomplicated; Z71.6 Tobacco abuse counseling; Z79.899 Other long term (current) drug therapy; Z85.3 Personal history of malignant neoplasm of breast; Z90.12 Acquired absence of left breast and nipple; Z90.89 Acquired absence of other organs; Z86.2 Personal history of diseases of the blood and blood-forming organs and certain disorders involving the immune mechanism; Z92.21 Personal history of antineoplastic chemotherapy; Z92.3 Personal history of irradiation; Z98.890 Other specified postprocedural states; Z80.1 Family history of malignant neoplasm of trachea, bronchus and lung; Z82.49 Family history of ischemic heart disease and other diseases of the circulatory system
CPT/HCPCS: 36415; 49083; 74176; 80053; 81001; 82150; 83605; 83690; 84484; 85025; 85610; 85730; 96374; 96375; 96376; 99285

== ENCOUNTER 2021-03-10 01:24 | Observation (INO) | payer MEDICARE, OTHER ==
--- NOTE | 2021-03-10 01:52 | XR ---
EXAMINATION TYPE: XR chest 2V DATE OF EXAM: 03/10/2021 COMPARISON: 03/24/2019 HISTORY: Short of breath TECHNIQUE: 2 views FINDINGS: Heart and mediastinum are normal. Lungs are clear. Diaphragm is normal. Bony thorax is inta ct. IMPRESSION: Normal chest. No adverse change.
--- NOTE | 2021-03-10 02:01 | XR ---
EXAMINATION TYPE: XR KUB DATE OF EXAM: 03/10/2021 COMPARISON: 08/09/[address] scan 12/12/2020. HISTORY: Abdominal pain TECHNIQUE: 2 views upright FINDINGS: There is increased density over the abdomen suggestive of ascites. There is no evidence of a bowel obstruction. There is no sign of a dilated loop. Lung bases show no definite pleural effusion . IMPRESSION: There is evidence for abdominal ascites that is increased compared to old exam. Ascites p robably not changed compared to 12/12/2020 CT scan.
[2021-03-10] MEDS ORDERED: NALOXONE 0.4 MG/ML 1 ML VIAL IV PRN (02:57)
[2021-03-10] MEDS ORDERED: ONDANSETRON 4 MG/2 ML VIAL IVP PRN (02:57)
[2021-03-10] MEDS ORDERED: HYDROmorphone 1 MG/ML 1 ML SYRINGE IVP STA (02:57)
--- NOTE | 2021-03-10 02:57 | ED ---
Abdominal Pain HPI - General Chief Complaint: Abdominal Pain Stated Complaint: Abd swelling, leg pain Time Seen by Provider: 03/10/21 02:31 Source: patient, RN notes reviewed, old records reviewed Mode of arrival: ambulatory Limitations: no limitations - History of Present Illness Initial Comments: This is a 55-year-old female well-known to our emergency department. Patient does have history of significant ascites portal hypertension coming with abdominal pain shortness of breath and bilateral lower can be edema. No other new symptoms no fevers cough or congestion no other complaints MD Complaint: abdominal pain -: hour(s) Location: diffuse, epigastric, suprapubic Radiation: epigastric, suprapubic Severity: moderate Severity scale (1-10): 4 Quality: cramping, aching Consistency: intermittent Improves With: nothing Worsens With: nothing Associated Symptoms: nausea Treatments Prior to Arrival: other (none) - Related Data Home Medications Medication Instructions Recorded Confirmed HYDROmorphone [Dilaudid] 2 mg PO Q6H PRN 09/06/19 12/12/20 Hydrocodone/Acetaminophen [[place] 1 tab PO Q6H 09/06/19 12/12/20 10-325] Furosemide [Lasix] 40 mg PO DAILY PRN 12/12/20 12/12/20 Allergies Allergy/AdvReac Type Severity Reaction Status Date / Time No Known Allergies Allergy Verified 03/10/21 01:36 Review of Systems ROS Statement: Those systems with pertinent positive or pertinent negative responses have been documented in the HPI. ROS Other: All systems not noted in ROS Statement are negative. Past Medical History Past Medical History: Cancer, COPD, GERD/Reflux, GI Bleed, Hearing Disorder / Deafness, Liver Disease Additional Past Medical History / Comment(s): Hepatitis C, intractable ascities with multiple paracentesis, cirrhosis, peritonitis, pancytopenia, vertigo once; multiple upper GI bleeds, esophageal varicies/esophageal banding, left breast cancer had chemo last on 09-12-16-did not tolerate-completed only 3 cycles-then it was stopped/received radiation treatments/no surgery yet but pt states she is to get a MRI to see if she can have surgery, lt ear deafness, R ear [place]. History of Any Multi-Drug Resistant Organisms: None Reported Past Surgical History: Adenoidectomy, Breast Surgery, Tonsillectomy Additional Past Surgical History / Comment(s): Multiple paracentesises, EGDs, esophageal banding, right chest mediport 5-3-17, l breast bx., Past Anesthesia/Blood Transfusion Reactions: No Reported Reaction Additional Past Anesthesia/Blood Transfusion Reaction / Comment(s): blood transfusions- no reaction Past Psychological History: Anxiety Smoking Status: Light tobacco smoker Past Alcohol Use History: None Reported Past Drug Use History: None Reported - Past Family History Mother Family Medical History: Cancer Additional Family Medical History / Comment(s): of lung ca at the age of 59yrs. She was a smoker. Father Family Medical History: Myocardial Infarction ([place]) Additional Family Medical History / Comment(s): from 2nd heart attack at the age of 59yrs. General Exam Limitations: no limitations General appearance: alert, in no apparent distress Head exam: Present: atraumatic, normocephalic, normal inspection Eye exam: Present: normal appearance, PERRL, EOMI. Absent: scleral icterus, conjunctival injection, periorbital swelling ENT exam: Present: normal exam, mucous membranes moist Neck exam: Present: normal inspection. Absent: tenderness, meningismus, lymphadenopathy Respiratory exam: Present: normal lung sounds bilaterally. Absent: respiratory distress, wheezes, rales, rhonchi, stridor Cardiovascular Exam: Present: regular rate, normal rhythm, normal heart sounds. Absent: systolic murmur, diastolic murmur, rubs, gallop, clicks GI/Abdominal exam: Present: soft, normal bowel sounds. Absent: distended, tenderness, guarding, rebound, rigid Extremities exam: Present: normal inspection, full ROM, normal capillary refill. Absent: tenderness, pedal edema, joint swelling, calf tenderness Back exam: Present: normal inspection Neurological exam: Present: alert, oriented X3, CN II-XII intact Psychiatric exam: Present: normal affect, normal mood Skin exam: Present: warm, dry, intact, normal color. Absent: rash Course Vital Signs 03/10/21 01:30 Temperature 98.3 F Pulse Rate 82 Respiratory 22 Rate Blood Pressure 153/85 O2 Sat by Pulse 97 Oximetry - Reevaluation(s) Reevaluation #1: 03/10/21 02:55 Medical record is reviewed Reevaluation #2: 03/10/21 02:55 Patient is informed of results and questions answered Medical Decision Making - Medical Decision Making 55 female to be admitted for evaluation regarding significant increasing ascites. Lower extremity edema and swelling. Disposition Clinical Impression: Portal hypertension with esophageal varices, Intractable abdominal pain, Nausea & vomiting, Abdominal pain, Ascites Disposition: ADMITTED IP TO THIS HOSP Condition: Fair Is patient prescribed a controlled substance at d/c from ED?: No Referrals: Mark Estrada MD [Primary Care Provider] - 1-2 days
[2021-03-10 04:03] VITALS: RESP 16
[2021-03-10] MEDS: MORPHINE SULFATE 4 MG/ML SYRINGE IV PRN ×5 (05:26→23:22)
[2021-03-10] MEDS ORDERED: PANTOPRAZOLE 40 MG/10 ML VIAL IV SCH (09:00)
[2021-03-10 21:13] VITALS: PULSE 79
[2021-03-11 02:25] VITALS: BP 131/84; TEMP 98.4
[2021-03-11] MEDS: MORPHINE SULFATE 4 MG/ML SYRINGE IV PRN (04:08)
--- NOTE | 2021-03-11 17:44 | DS ---
DISCHARGE SUMMARY DATE OF DISCHARGE: 03/11/2021 CHIEF COMPLAINT: Abdominal pain and intractable ascites with cirrhosis. HISTORY OF PRESENT ILLNESS AND PHYSICAL EXAMINATION: Details of this lady's history and physical can be found in the initial workup. LABORATORY STUDIES: While she was in the hospital she had laboratory studies, details of which can be found in the laboratory section of her chart. COURSE IN THE HOSPITAL: After admission she was placed on bedrest and started on intravenous fluids and her usual analgesic management. She became very upset in the middle of the night regarding the type of medication and the dosages and signed out AMA. FINAL DIAGNOSES: 1. Intractable abdominal pain and ascites due to cirrhosis. 2. Hepatitis C. 3. History of carcinoma of the breast. OPERATIONS: None. CONSULTATIONS: None. She was improved. She left AMA. KAUSHIK / KAREEM: [id number] /
--- NOTE | 2021-03-11 17:44 | HP ---
HISTORY AND PHYSICAL DATE OF ADMISSION: 03/10/2021 CHIEF COMPLAINT: Abdominal pain, distention and ascites. HISTORY OF PRESENT ILLNESS: This is another admission for this 55-year-old white female with a history of cirrhosis secondary to hepatitis C and alcoholism. She also has COPD and has had carcinoma of the breast. She came to the emergency room with abdominal pain and distention. She does this frequently. When she takes her medications, which include spironolactone and Lasix, her ascites is under good control. She refuses to take them, however, because she does not have a bathroom downstairs and has to climb the stairs to eliminate, so she just does not take the medications. She came into the emergency room with generalized abdominal pain and distention. She does not drink. REVIEW OF SYSTEMS: Otherwise normal. She has no other symptoms. She has had no diarrhea, melena, hematochezia, nausea, vomiting, etc. Past medical history, family history, and personal and social histories can all be found in her prior documents. She uses a great deal of narcotic analgesics and has stubbornly refused to decrease the mg or quantity. PHYSICAL EXAMINATION: Blood pressure is 132/87 with a pulse of 79, respirations of 36, and she is afebrile. In general she appeared to be chronically ill. Head, ears, eyes, nose, mouth and throat were normal and the chest demonstrated rales at the bases. Cardiac exam demonstrates sinus tachycardia and the abdomen was distended with ascites. There is no visceromegaly or masses. Extremities are normal. Neurologically she is intact. She is admitted to the hospital with the diagnoses: 1. Abdominal pain. 2. Intractable ascites. 3. Cirrhosis. 4. History of hepatitis C. 5. Carcinoma of the breast. PLAN: 1. Bedrest. 2. IV fluids. 3. Analgesics. 4. Consult Interventional Radiology for paracentesis. MMODL / IJN: [id number] /
== END 2021-03-11 05:37 | disposition left against medical advice (07) ==
LOC: EC 01:24 → 6NMEDSUR 02:57
PROVIDERS: ADMIT Family Medicine; ATTEND Family Medicine
DX: K70.31 Alcoholic cirrhosis of liver with ascites (principal); B19.20 Unspecified viral hepatitis C without hepatic coma; Z53.29 Procedure and treatment not carried out because of patient's decision for other reasons; J44.9 Chronic obstructive pulmonary disease, unspecified; C50.919 Malignant neoplasm of unspecified site of unspecified female breast; F10.20 Alcohol dependence, uncomplicated; Z91.128 Patient's intentional underdosing of medication regimen for other reason; K76.6 Portal hypertension; K21.9 Gastro-esophageal reflux disease without esophagitis; I85.10 Secondary esophageal varices without bleeding; H91.93 Unspecified hearing loss, bilateral; F41.9 Anxiety disorder, unspecified; F17.200 Nicotine dependence, unspecified, uncomplicated; Z20.822 Contact with and (suspected) exposure to COVID-19; Z87.19 Personal history of other diseases of the digestive system; Z92.21 Personal history of antineoplastic chemotherapy; Z92.3 Personal history of irradiation; Z79.899 Other long term (current) drug therapy; Z79.891 Long term (current) use of opiate analgesic; Z80.1 Family history of malignant neoplasm of trachea, bronchus and lung; Z82.49 Family history of ischemic heart disease and other diseases of the circulatory system; Z81.2 Family history of tobacco abuse and dependence
CPT/HCPCS: 96376 ×2; 96375 ×2; 96374; 99285; 87635; 71046; 74018; G0378 ×2; J2270 ×2; J2405; J1170; C9113

== ENCOUNTER 2021-03-31 07:01 | Emergency (ER) | payer MEDICARE, OTHER ==
[2021-03-31] MEDS ORDERED: SODIUM CHLORIDE 0.9% 1,000 ML IV STA (07:46)
[2021-03-31] MEDS ORDERED: PANTOPRAZOLE 40 MG/10 ML VIAL IVP STA (07:46)
--- NOTE | 2021-03-31 07:50 | ED ---
General Adult HPI - General Chief complaint: ENT Stated complaint: spitting up blood Time Seen by Provider: 03/31/21 07:18 Source: patient, RN notes reviewed Mode of arrival: ambulatory Limitations: no limitations - History of Present Illness Initial comments: Patient is a pleasant 55-year-old female presenting to the emergency Department with sparing of blood. Onset of symptoms was just a couple of hours ago. Patient has had 2-3 episodes. Patient does have history of esophageal varices with banding a proximally 4 years ago. Patient does have history of cirrhosis with history of hepatitis C. Patient did receive treatment for hepatitis C. Patient has had some abdominal bloating and distention. Patient also feels her right leg is a little bit swollen. No dyspnea or fatigue. - Related Data Home Medications Medication Instructions Recorded Confirmed HYDROmorphone [Dilaudid] 2 mg PO Q6H PRN 09/06/19 03/31/21 Hydrocodone/Acetaminophen [[place] 1 tab PO Q6H PRN 09/06/19 03/31/21 10-325] Allergies Allergy/AdvReac Type Severity Reaction Status Date / Time No Known Allergies Allergy Verified 03/31/21 10:06 Review of Systems ROS Statement: Those systems with pertinent positive or pertinent negative responses have been documented in the HPI. ROS Other: All systems not noted in ROS Statement are negative. Constitutional: Denies: fever Eyes: Denies: eye pain ENT: Denies: ear pain Respiratory: Reports: as per HPI Cardiovascular: Denies: chest pain Endocrine: Denies: fatigue Gastrointestinal: Reports: as per HPI Genitourinary: Denies: dysuria Musculoskeletal: Denies: back pain Skin: Denies: rash Neurological: Denies: weakness Past Medical History Past Medical History: Cancer, COPD, GERD/Reflux, GI Bleed, Hearing Disorder / Deafness, Liver Disease Additional Past Medical History / Comment(s): Hepatitis C, intractable ascities with multiple paracentesis, cirrhosis, peritonitis, pancytopenia, vertigo once; multiple upper GI bleeds, esophageal varicies/esophageal banding, left breast cancer had chemo last on 09-12-16-did not tolerate-completed only 3 cycles-then it was stopped/received radiation treatments/no surgery yet but pt states she is to get a MRI to see if she can have surgery, lt ear deafness, R ear [place]. History of Any Multi-Drug Resistant Organisms: None Reported Past Surgical History: Adenoidectomy, Breast Surgery, Tonsillectomy Additional Past Surgical History / Comment(s): Multiple paracentesises, EGDs, esophageal banding, right chest mediport 5, l breast bx., Past Anesthesia/Blood Transfusion Reactions: No Reported Reaction Additional Past Anesthesia/Blood Transfusion Reaction / Comment(s): blood transfusions- no reaction Past Psychological History: Anxiety Smoking Status: Light tobacco smoker Past Alcohol Use History: None Reported Past Drug Use History: None Reported - Past Family History Mother Family Medical History: Cancer Additional Family Medical History / Comment(s): of lung ca at the age of 59yrs. She was a smoker. Father Family Medical History: Myocardial Infarction ([place]) Additional Family Medical History / Comment(s): from 2nd heart attack at the age of 59yrs. General Exam Limitations: no limitations General appearance: alert, in no apparent distress Head exam: Present: normocephalic Eye exam: Present: normal appearance ENT exam: Present: other (There is mild dry blood in the mouth without source visible.) Respiratory exam: Present: normal lung sounds bilaterally Cardiovascular Exam: Present: tachycardia GI/Abdominal exam: Present: soft, distended, organomegaly. Absent: tenderness Extremities exam: Present: pedal edema. Absent: calf tenderness Neurological exam: Present: alert Psychiatric exam: Present: normal affect, normal mood Skin exam: Present: normal color Course Vital Signs 03/31/21 03/31/21 07:10 09:18 Temperature 98.5 F 98.4 F Pulse Rate 120 H 94 Respiratory 18 16 Rate Blood Pressure 141/82 132/79 O2 Sat by Pulse 97 97 Oximetry - Reevaluation(s) Reevaluation #1: 03/31/21 09:32 Patient reevaluated and resting comfortably in bed. Patient updated on results. GI coverage not available today. Case was discussed with [facility] and [facility] and neither are accepting transfers 03/31/21 09:44 Also spoke with [facility] who was unable to accept transfer 03/31/21 09:45 Also tried [facility] who is also not accepting transfers 03/31/21 09:55 Spoke with Kelsie at [facility] who does not have beds at this time. They will speak with her chief librarian extension department to consider putting patient on the list however may be hours to days. 03/31/21 10:[address] russ at [facility] who will accept transfer to the emergency department. Patient reevaluated and updated. Patient remained stable. EKG Findings - EKG Comments: EKG Findings:: Normal sinus rhythm with rate of 88. AK 1:30. QRS 76. QT 380. QTC 459. Left axis. Poor R-wave progression. No acute ST change. Medical Decision Making - Lab Data Result diagrams: 03/31/21 08:16 03/31/21 08:16 Lab Results 03/31/21 03/31/21 03/31/21 Range/Units 08:16 08:16 08:16 WBC 2.2 L (3.8-10.6) k/uL RBC 3.33 L (3.80-5.40) m/uL Hgb 12.2 (11.4-16.0) gm/dL Hct 36.8 (34.0-46.0) % MCV 110.7 H (80.0-100.0) fL MCH 36.6 H (25.0-35.0) pg MCHC 33.1 (31.0-37.0) g/dL RDW 13.7 (11.5-15.5) % Plt Count 46 L (150-450) k/uL MPV 9.4 Neutrophils % 52 % Lymphocytes % 31 % Monocytes % 12 % Eosinophils % 3 % Basophils % 1 % Neutrophils # 1.2 L (1.3-7.7) k/uL Lymphocytes # 0.7 L (1.0-4.8) k/uL Monocytes # 0.3 (0-1.0) k/uL Eosinophils # 0.1 (0-0.7) k/uL Basophils # 0.0 (0-0.2) k/uL Manual Slide Review Performed Macrocytosis Marked A PT 12.2 H (9.0-12.0) sec INR 1.2 H (<1.2) APTT 27.5 (22.0-30.0) sec Sodium 135 L (137-145) mmol/L Potassium 4.0 (3.5-5.1) mmol/L Chloride 107 (98-107) mmol/L Carbon Dioxide 25 (22-30) mmol/L Anion Gap 3 mmol/L BUN 15 (7-17) mg/dL Creatinine 0.69 (0.52-1.04) mg/dL Est GFR (CKD-EPI)AfAm >90 (>60 ml/min/1.73 sqM) Est GFR (CKD-EPI)NonAf >90 (>60 ml/min/1.73 sqM) Glucose 111 H (74-99) mg/dL Calcium 8.1 L (8.4-10.2) mg/dL Total Bilirubin 1.5 H (0.2-1.3) mg/dL AST 39 H (14-36) U/L ALT 14 (4-34) U/L Alkaline Phosphatase 97 (38-126) U/L Troponin I (0.000-0.034) ng/mL Total Protein 7.1 (6.3-8.2) g/dL Albumin 2.9 L (3.5-5.0) g/dL Lipase 95 (23-300) U/L 03/31/21 Range/Units 08:16 WBC (3.8-10.6) k/uL RBC (3.80-5.40) m/uL Hgb (11.4-16.0) gm/dL Hct (34.0-46.0) % MCV (80.0-100.0) fL MCH (25.0-35.0) pg MCHC (31.0-37.0) g/dL RDW (11.5-15.5) % Plt Count (150-450) k/uL MPV Neutrophils % % Lymphocytes % % Monocytes % % Eosinophils % % Basophils % % Neutrophils # (1.3-7.7) k/uL Lymphocytes # (1.0-4.8) k/uL Monocytes # (0-1.0) k/uL Eosinophils # (0-0.7) k/uL Basophils # (0-0.2) k/uL Manual Slide Review Macrocytosis PT (9.0-12.0) sec INR (<1.2) APTT (22.0-30.0) sec Sodium (137-145) mmol/L Potassium (3.5-5.1) mmol/L Chloride (98-107) mmol/L Carbon Dioxide (22-30) mmol/L Anion Gap mmol/L BUN (7-17) mg/dL Creatinine (0.52-1.04) mg/dL Est GFR (CKD-EPI)AfAm (>60 ml/min/1.73 sqM) Est GFR (CKD-EPI)NonAf (>60 ml/min/1.73 sqM) Glucose (74-99) mg/dL Calcium (8.4-10.2) mg/dL Total Bilirubin (0.2-1.3) mg/dL AST (14-36) U/L ALT (4-34) U/L Alkaline Phosphatase (38-126) U/L Troponin I <0.012 (0.000-0.034) ng/mL Total Protein (6.3-8.2) g/dL Albumin (3.5-5.0) g/dL Lipase (23-300) U/L - Radiology Data Radiology results: report reviewed (Ultrasound negative for DVT), image reviewed Disposition Clinical Impression: Upper GI hemorrhage Disposition: OTHER INSTITUTION NOT DEFINED Is patient prescribed a controlled substance at d/c from ED?: No Referrals: Mark Estrada MD [Primary Care Provider] - 1-2 days Time of Disposition: 10:09 - Out of Hospital Transfer - Req. Specs Out of Hospital Transfer - Requested Specifics: Other Emergency Center
[2021-03-31] MEDS ORDERED: MORPHINE SULFATE 2 MG/ML SYRINGE IVP STA (08:38)
[2021-03-31 08:41] LABS: ALT 14 U/L (4-34); AST 39 U/L (14-36); African American GFR (CKD) >90 (>60 ml/min/1.73 sqM); Albumin 2.9 g/dL (3.5-5.0); Alkaline Phosphatase 97 U/L (38-126); Anion Gap 3 mmol/L; Blood Urea Nitrogen 15 mg/dL (7-17); Calcium 8.1 mg/dL (8.4-10.2); Carbon Dioxide 25 mmol/L (22-30); Chloride 107 mmol/L (98-107); Glucose 111 mg/dL (74-99); Lipase 95 U/L (23-300); Non-African American GFR(CKD) >90 (>60 ml/min/1.73 sqM); Sodium 135 mmol/L (137-145); Total Bilirubin 1.5 mg/dL (0.2-1.3); Total Protein 7.1 g/dL (6.3-8.2)
[2021-03-31 08:54] LABS: Basophils % (A) 1 %; Eosinophils # (A) 0.1 k/uL (0-0.7); Eosinophils % (A) 3 %; HCT 36.8 % (34.0-46.0); HGB 12.2 gm/dL (11.4-16.0); Lymphocytes # (A) 0.7 k/uL (1.0-4.8); Lymphocytes % (A) 31 %; MCH 36.6 pg (25.0-35.0); MCHC 33.1 g/dL (31.0-37.0); MCV 110.7 fL (80.0-100.0); Macrocytosis Marked; Mean Platelet Volume 9.4; Monocytes # (A) 0.3 k/uL (0-1.0); Monocytes % (A) 12 %; Neutrophils # (A) 1.2 k/uL (1.3-7.7); Neutrophils % (A) 52 %; RBC 3.33 m/uL (3.80-5.40); RDW 13.7 % (11.5-15.5); WBC 2.2 k/uL (3.8-10.6)
[2021-03-31 08:59] LABS: INR 1.2 (<1.2); Partial Thromboplastin Time 27.5 sec (22.0-30.0); Prothrombin Time 12.2 sec (9.0-12.0)
[2021-03-31 09:11] LABS: Platelet Count 46 k/uL (150-450)
--- NOTE | 2021-03-31 09:14 | US ---
EXAMINATION TYPE: US venous doppler duplex LE RT DATE OF EXAM: 03/31/2021 7:48 AM COMPARISON: NONE CLINICAL HISTORY: swelling. very swollen right leg, no h/o dvt SIDE PERFORMED: Right TECHNIQUE: The lower extremity deep venous system is examined utilizing real time linear array sonog elle with graded compression, doppler sonography and color-flow sonography. VESSELS IMAGED: Common Femoral Vein Deep Femoral Vein Greater Saphenous Vein * Femoral Vein Popliteal Vein Small Saphenous Vein * Proximal Calf Veins (* superficial vessels) Right Leg: Negative for DVTGrayscale, color doppler, spectral doppler imaging performed of the deep veins of the lower extremities. There is normal flow, compressibility, vascular waveforms. IMPRESSION: Soft tissue edema of the right lower extremity without sonographic evidence for deep vein thrombosis.
[2021-03-31 09:19] VITALS: RESP 16
--- NOTE | 2021-03-31 10:05 | XR ---
EXAMINATION TYPE: XR chest 2V DATE OF EXAM: 03/31/2021 COMPARISON: March 10, 2021 HISTORY: 55 years Female. STUDY INDICATION GIVEN: cough . TECHNIQUE: Frontal and lateral chest radiographs. IMPRESSION: Lung volumes. Lobe predominant lucencies greater on the right suggest COPD/emphysema changes. No focal airspace opacity, pneumothorax or effusion. Normal cardiomediastinal silhouette. Mild generalized demineralization. No acute osseous abnormality.
[2021-03-31 11:13] VITALS: BP 145/78; PULSE 78; TEMP 98
== END 2021-03-31 11:12 | disposition left against medical advice (07) ==
LOC: EC 07:01
DX: K92.2 Gastrointestinal hemorrhage, unspecified (principal); J44.9 Chronic obstructive pulmonary disease, unspecified; K21.9 Gastro-esophageal reflux disease without esophagitis; F17.200 Nicotine dependence, unspecified, uncomplicated
CPT/HCPCS: 36415; 71046; 80053; 83690; 84484; 85025; 85610; 85730; 93005; 96361; 96374; 96375; 99285

== ENCOUNTER 2021-04-01 01:11 | Inpatient (IN) | payer MEDICARE, OTHER ==
[2021-04-01] MEDS ORDERED: TRANEXAMIC ACID 1,000 MG in SODIUM CHLORIDE 0.9% 100 ML IVPB ONE (01:32)
--- NOTE | 2021-04-01 01:37 | ED ---
SOB HPI - General Chief Complaint: Shortness of Breath Stated Complaint: Coughing up blood Time Seen by Provider: 04/01/21 01:20 Source: patient, EMS Mode of arrival: EMS - History of Present Illness Initial Comments: This patient is a 55-year-old woman who presents to be evaluated for cough. The patient states she has been coughing going back over 24 hours. The patient had been seen here yesterday in the morning. Patient was to have been transferred to [facility] where they do have GI coverage which is not available here because there was concern about history of previous esophageal varices. The patient reported that she had been coughing, felt a pop and also had some small amount of hemoptysis. She denies any coffee-ground or bright red blood by vomiting. Patient denies any lower GI symptoms. She does note that she has increased right lower extremity and abdominal edema over the past few days. MD Complaint: shortness of breath, cough Onset/Timin -: days(s) Consistency: constant Improves With: nothing Worsens With: nothing Known History Of: other - Related Data Home Medications Medication Instructions Recorded Confirmed HYDROmorphone [Dilaudid] 2 mg PO Q6H PRN 09/06/19 03/31/21 Hydrocodone/Acetaminophen [[place] 1 tab PO Q6H PRN 09/06/19 03/31/21 10-325] Allergies Allergy/AdvReac Type Severity Reaction Status Date / Time No Known Allergies Allergy Verified 03/31/21 10:06 Review of Systems ROS Statement: Those systems with pertinent positive or pertinent negative responses have been documented in the HPI. ROS Other: All systems not noted in ROS Statement are negative. Constitutional: Reports: weakness. Denies: fever, chills Respiratory: Reports: cough, hemoptysis. Denies: dyspnea, wheezes Cardiovascular: Reports: orthopnea, edema. Denies: chest pain, palpitations, syncope Gastrointestinal: Denies: abdominal pain, nausea, vomiting, diarrhea, constipation, hematemesis, melena, hematochezia Genitourinary: Denies: dysuria, hematuria Musculoskeletal: Denies: back pain Skin: Denies: rash Neurological: Denies: headache Past Medical History Past Medical History: Cancer, COPD, GERD/Reflux, GI Bleed, Hearing Disorder / Deafness, Liver Disease Additional Past Medical History / Comment(s): Hepatitis C, intractable ascities with multiple paracentesis, cirrhosis, peritonitis, pancytopenia, vertigo once; multiple upper GI bleeds, esophageal varicies/esophageal banding, left breast cancer had chemo last on 09-12-16-did not tolerate-completed only 3 cycles-then it was stopped/received radiation treatments/no surgery yet but pt states she is to get a MRI to see if she can have surgery, lt ear deafness, R ear [place]. History of Any Multi-Drug Resistant Organisms: None Reported Past Surgical History: Adenoidectomy, Breast Surgery, Tonsillectomy Additional Past Surgical History / Comment(s): Multiple paracentesises, EGDs, esophageal banding, right chest mediport 08-06-16, l breast bx., Past Anesthesia/Blood Transfusion Reactions: No Reported Reaction Additional Past Anesthesia/Blood Transfusion Reaction / Comment(s): blood transfusions- no reaction Past Psychological History: Anxiety Smoking Status: Light tobacco smoker Past Alcohol Use History: None Reported Past Drug Use History: None Reported - Past Family History Mother Family Medical History: Cancer Additional Family Medical History / Comment(s): of lung ca at the age of 59yrs. She was a smoker. Father Family Medical History: Myocardial Infarction ([place]) Additional Family Medical History / Comment(s): from 2nd heart attack at the age of 59yrs. General Exam General appearance: alert, in no apparent distress Head exam: Present: atraumatic, normocephalic Eye exam: Present: normal appearance. Absent: scleral icterus, conjunctival injection ENT exam: Present: normal oropharynx Neck exam: Present: normal inspection Respiratory exam: Present: respiratory distress, rales, rhonchi. Absent: wheezes, stridor Cardiovascular Exam: Present: regular rate, normal rhythm, normal heart sounds. Absent: systolic murmur, diastolic murmur, rubs, gallop GI/Abdominal exam: Present: soft. Absent: distended, tenderness, guarding, rebound, rigid, mass Extremities exam: Present: normal inspection, normal capillary refill. Absent: pedal edema, calf tenderness Back exam: Present: normal inspection. Absent: CVA tenderness (R), CVA tenderness (L) Neurological exam: Present: alert Skin exam: Present: warm, dry, intact, normal color. Absent: rash Course Vital Signs 04/01/21 01:17 Temperature 98.1 F Pulse Rate 99 Respiratory 26 H Rate O2 Sat by Pulse 95 Oximetry Disposition Referrals: Mark Estrada MD [Primary Care Provider] - 1-2 days
--- NOTE | 2021-04-01 01:58 | XR ---
EXAMINATION TYPE: XR chest 2V DATE OF EXAM: 04/01/2021 COMPARISON: 03/31/2021 HISTORY: Short of breath TECHNIQUE: 2 views FINDINGS: Heart and mediastinum are normal. There is a 5 cm patch of infiltrate in the left midlung f ield. The other lung barrera are fairly clear. There is no heart failure. There are no hilar masses. C ostophrenic angles are clear. IMPRESSION: There is a patch of pneumonia in the left midlung field which appears new compared to yes terday.
[2021-04-01] MEDS ORDERED: AZITHROMYCIN 500 MG TAB PO STA (02:09)
[2021-04-01 02:33] LABS: Appearance,Urine Clear (Clear); Bilirubin,Urine Negative (Negative); Blood,Urine Negative (Negative); Color,Urine Light Yellow; Glucose,Urine (UA) Negative (Negative); Ketones,Urine Negative (Negative); Leukocyte Esterase,Urine Negative (Negative); Nitrite,Urine Negative (Negative); Protein,Urine Negative (Negative); Specific Gravity,Urine 1.005 (1.001-1.035); Urobilinogen,Urine <2.0 mg/dL (<2.0)
[2021-04-01 02:34] LABS: Basophils % (A) 0 %; Eosinophils # (A) 0.1 k/uL (0-0.7); Eosinophils % (A) 4 %; Hypochromasia Slight; Lymphocytes # (A) 0.7 k/uL (1.0-4.8); Lymphocytes % (A) 40 %; MCH 36.1 pg (25.0-35.0); MCHC 31.6 g/dL (31.0-37.0); MCV 114.1 fL (80.0-100.0); Macrocytosis Marked; Mean Platelet Volume 9.8; Monocytes # (A) 0.1 k/uL (0-1.0); Monocytes % (A) 6 %; Neutrophils # (A) 0.8 k/uL (1.3-7.7); Neutrophils % (A) 47 %; RBC 3.33 m/uL (3.80-5.40); RDW 13.4 % (11.5-15.5); WBC 1.8 k/uL (3.8-10.6)
[2021-04-01 02:39] LABS: INR 1.2 (<1.2); Partial Thromboplastin Time 23.3 sec (22.0-30.0); Prothrombin Time 12.5 sec (9.0-12.0)
[2021-04-01 02:40] LABS: Platelet Count 36 k/uL (150-450)
[2021-04-01 03:06] LABS: ALT 13 U/L (4-34); AST 37 U/L (14-36); African American GFR (CKD) >90 (>60 ml/min/1.73 sqM); Albumin 2.8 g/dL (3.5-5.0); Alkaline Phosphatase 80 U/L (38-126); Anion Gap 5 mmol/L; Blood Urea Nitrogen 12 mg/dL (7-17); Calcium 7.9 mg/dL (8.4-10.2); Carbon Dioxide 23 mmol/L (22-30); Chloride 108 mmol/L (98-107); Glucose 100 mg/dL (74-99); Non-African American GFR(CKD) >90 (>60 ml/min/1.73 sqM); Potassium 3.8 mmol/L (3.5-5.1); Sodium 136 mmol/L (137-145); Total Bilirubin 2.1 mg/dL (0.2-1.3); Total Protein 6.7 g/dL (6.3-8.2)
[2021-04-01] MEDS ORDERED: MORPHINE SULFATE 4 MG/ML SYRINGE IV STA (03:13)
[2021-04-01] MEDS ORDERED: HYDROcodone/APAP 10-325MG 1 EACH TAB PO ONE (03:15)
[2021-04-01] MEDS ORDERED: PNEUMONIA PROTOCOL UTILIZED 1 EACH MISC PO PRN (04:02)
[2021-04-01] MEDS ORDERED: HYDROmorphone 0.5 MG/0.5 ML SYRINGE IVP STA (05:03)
[2021-04-01] MEDS: SODIUM CHLORIDE 0.9% 1,000 ML IV SCH (07:06)
[2021-04-01] MEDS ORDERED: HYDROmorphone 2 MG TAB PO PRN (10:42)
[2021-04-01 15:21] LABS: C Reactive Protein 1.9 mg/dL (<1.0)
[2021-04-01] MEDS: HYDROcodone/APAP 10-325MG 1 EACH TAB PO PRN ×2 (15:36→21:55)
--- NOTE | 2021-04-01 15:47 | HP ---
HISTORY AND PHYSICAL CHIEF COMPLAINT: Fever, chills, shortness of breath and cough. HISTORY OF PRESENT ILLNESS: This is another recent admission for this 55-year-old white female who came in because of a low-grade fever, cough and congestion. She was found to have left lower lobe pneumonitis. She is in very poor health with cirrhosis secondary to hepatitis C and alcoholism along with a history of carcinoma of the breast and intractable ascites. She continues to smoke. REVIEW OF SYSTEMS: She has had no headaches, neurologic problems, hemoptysis, abdominal pain, nausea, vomiting, diarrhea, urinary complaints, etc. Past medical history, family history, and personal and social histories are all otherwise unremarkable or noncontributory and unchanged from her recent admitting and discharge summaries. She takes Dilaudid and Vicodin at home to manage her back and abdominal pain. She recently was in the hospital for paracentesis. The remainder of her history is unremarkable. PHYSICAL EXAMINATION: Blood pressure is 98/58 with a pulse of 76, respirations of 35, and she is afebrile. In general she appeared to be chronically ill in appearance. She was pale. Head, ears, eyes, nose and mouth were normal. Neck veins were not distended. Chest demonstrated poor breath sounds with scattered rales and rhonchi bilaterally. The cardiac exam demonstrated sinus rhythm and the abdomen was protuberant and slightly tender throughout with ascites. Extremities were normal. IMPRESSION: 1. Left lower lobe pneumonitis. 2. Cirrhosis. 3. Hepatitis C. 4. Intractable ascites. 5. Intractable abdominal and back pain. PLAN: 1. Bedrest. 2. IV fluids. 3. Updrafts. 4. IV antibiotics. 5. Consult with Pulmonology and Infectious Disease. MMODL / IJN: [id number] /
--- NOTE | 2021-04-01 16:00 | P.CNPUL ---
History of Present Illness Consult date: 04/01/21 Requesting physician: Mark Estrada Reason for consult: pneumonia Chief complaint: Cough History of present illness: This is a 55-year-old female with history of multiple medical problems, patient is known to have history of hepatitis C, recurrent ascites, liver cirrhosis, multiple episodes of upper GI bleeding secondary to esophageal varices in the past. Patient is also known to have history of left breast cancer and previous chemotherapy. Patient had multiple paracentesis procedures in the past multiple EGDs and multiple esophageal banding procedures. Was seen in the ER yesterday, and she was complaining of vomiting blood, patient was supposedly accepted for transfer to the [facility] emergency room. Apparently the patient is back here today now complaining of cough of one day duration. Chest x-ray showed very minimal limited infiltrate in the left midlung. Patient was admitted and this consult was initiated. Her CBC showed leukopenia with WBC count of 1.8, hemoglobin is 12, she had normal electrolytes and normal renal profile . In spite of her pulmonary symptoms the patient continues to smoke on and off. Review of Systems Constitutional: Negative Eyes: Negative ENT: Negative Respiratory: As noted in HPI Cardiovascular: Denies: chest pain Endocrine: Negative Gastrointestinal: Recent episode of GI bleeding, minimal, apparently she was not admitted to the [facility] Genitourinary: Negative Musculoskeletal: Negative Skin: Negative Neurological: Negative Past Medical History Past Medical History: Cancer, COPD, GERD/Reflux, GI Bleed, Hearing Disorder / Deafness, Liver Disease Additional Past Medical History / Comment(s): Hepatitis C, intractable ascities with multiple paracentesis, cirrhosis, peritonitis, pancytopenia, vertigo once; multiple upper GI bleeds, esophageal varicies/esophageal banding, left breast cancer had chemo last on 09-12-16-did not tolerate-completed only 3 cycles-then it was stopped/received radiation treatments/no surgery yet but pt states she is to get a MRI to see if she can have surgery, lt ear deafness, R ear [place]. History of Any Multi-Drug Resistant Organisms: None Reported Past Surgical History: Adenoidectomy, Breast Surgery, Tonsillectomy Additional Past Surgical History / Comment(s): Multiple paracentesises, EGDs, esophageal banding, right chest mediport 08-06-16, l breast bx., Past Anesthesia/Blood Transfusion Reactions: No Reported Reaction Additional Past Anesthesia/Blood Transfusion Reaction / Comment(s): blood transfusions- no reaction Past Psychological History: Anxiety Additional Psychological History / Comment(s): Patient started smoking at age 14 yrs. old- 2 a pack a day and cut back to one to 3 cigarettes per day no history of alcohol abuse. Patient lives with her son. She is currently on disability. Smoking Status: Light tobacco smoker Past Alcohol Use History: None Reported Additional Past Alcohol Use History / Comment(s): Patient started smoking at age 14. She was a ppd smoker but cut back to one to 1-3 cigarettes per day in 2017. No history of alcohol abuse. Past Drug Use History: None Reported - Past Family History Mother Family Medical History: Cancer Additional Family Medical History / Comment(s): of lung ca at the age of 59yrs. She was a smoker. Father Family Medical History: Myocardial Infarction ([place]) Additional Family Medical History / Comment(s): from 2nd heart attack at the age of 59yrs. Medications and Allergies Home Medications Medication Instructions Recorded Confirmed Type HYDROmorphone [Dilaudid] 2 mg PO Q6H PRN 09/06/19 04/01/21 History Hydrocodone/Acetaminophen [[place] 1 tab PO Q6H PRN 09/06/19 04/01/21 History 10-325] Allergies Allergy/AdvReac Type Severity Reaction Status Date / Time No Known Allergies Allergy Verified 04/01/21 08:12 Physical Exam Vitals: Vital Signs Temp Pulse Pulse Resp BP BP Pulse Ox 04/01/21 14:00 98.1 F 89 26 H 132/62 97 04/01/21 08:00 97.8 F 83 16 111/70 94 L 04/01/21 04:03 95 18 129/97 96 04/01/21 01:24 18 04/01/21 01:17 98.1 F 99 26 H 95 Intake and Output 04/01/21 04/01/21 04/01/21 06:59 14:59 22:59 Intake Total 160 Balance 160 Intake: Intake, IV Titration 160 Amount Sodium Chloride 0.9% 1, 160 000 ml @ 20 mls/hr IV . Q24H [facility] Rx#:[id number] Other: Weight 78.471 kg 78.471 kg Physical Exam: Revealed 55-year-old female in no form of distress Head: Atraumatic normocephalic. HEENT:[Neck is supple.] [No neck masses.] [No thyromegaly.] [No JVD.] Chest: [Clear throughout, no crackles, no rhonchi, no wheezes.] Cardiac Exam: [Normal S1 and S2, no S3 gallop, no murmur.] Abdomen: [Soft, nontender, and ascites. no megaly, no rebound, no guarding, normal bowel sounds.] Extremities: [No clubbing, no edema, no cyanosis.] Neurological Exam: [No focal neurologic deficit.] Alert oriented 3 focal deficit Psychiatric: Anxious mood, blunt affect, normal mental status examination. Results - Laboratory Findings CBC and BMP: 04/01/21 02:06 04/01/21 02:06 PT/INR, D-dimer PT 12.5 sec (9.0-12.0) H 04/01/21 02:06 INR 1.2 (<1.2) H 04/01/21 02:06 D-Dimer 3.30 mg/L FEU (<0.60) H 04/01/21 14:32 Abnormal lab findings: Abnormal Labs 04/01/21 04/01/21 04/01/21 02:06 02:06 02:06 WBC 1.8 L RBC 3.33 L MCV 114.1 H MCH 36.1 H Plt Count 36 L Neutrophils # 0.8 L Lymphocytes # 0.7 L Macrocytosis Marked A PT 12.5 H INR 1.2 H D-Dimer Sodium 136 L Chloride 108 H Glucose 100 H Calcium 7.9 L Total Bilirubin 2.1 H AST 37 H C-Reactive Protein Albumin 2.8 L 04/01/21 04/01/21 14:32 14:32 WBC RBC MCV MCH Plt Count Neutrophils # Lymphocytes # Macrocytosis PT INR D-Dimer 3.30 H Sodium Chloride Glucose Calcium Total Bilirubin AST C-Reactive Protein 1.9 H Albumin - Diagnostic Findings Chest x-ray: image reviewed (As noted in HPI.) Assessment and Plan Assessment: Impression: Acute community-acquired pneumonia, extremely limited and minimal without hypoxia History of COPD presently inactive History of recurrent GI bleeding secondary to esophageal varices History of liver cirrhosis and hepatitis C Chronic pancytopenia History of left breast cancer. Tobacco dependence syndrome. Recommendation: Suggest transitioning the patient to oral antibiotics and discharged home today or tomorrow. Patient to resume her home meds Patient to stop smoking Patient to be seen in the pulmonary office on outpatient basis. Again I'm clearing the patient to be discharged home and her pneumonia could be treated on outpatient basis. Patient to continue to follow-up with her purchasing assistant regarding her GI issues. Time with Patient: Greater than 30
[2021-04-01] MEDS: HYDROmorphone 0.5 MG/0.5 ML SYRINGE IVP PRN (19:28)
[2021-04-02] MEDS: HYDROcodone/APAP 10-325MG 1 EACH TAB PO PRN ×2 (03:55→09:47)
[2021-04-02] MEDS: HYDROmorphone 0.5 MG/0.5 ML SYRINGE IVP PRN ×3 (04:49→08:38)
[2021-04-02] MEDS: SODIUM CHLORIDE 0.9% 1,000 ML IV SCH (05:27)
--- NOTE | 2021-04-02 08:43 | P.CONS ---
History of Present Illness - Reason for Consult Consult date: 04/01/21 pneumonia Requesting physician: Mark Estrada - Chief Complaint vomiting blood x 1 day - History of Present Illness History of present illness : Patient is 55-year-old female with a past medical history significant for cirrhosis of the liver from chronic hepatitis C with a history of upper GI bleeding from esophageal varices in the past and did have a history of paracentesis for ascites patient presented to the ER vomiting blood with the symptom started the day of presentation to hospital with multiple episodes of vomiting the patient also have a very minimal cough patient denies having any sputum production denies any chest pain. Denies having any worsening abdominal distention or any diarrhea on presentation the hospital the patient was afebrile patient been satting 96 to 98% on room air patient did have leukopenia as well as lymphopenia did have a creatinine of 0.60 her liver exams are elevated urine has been negative costa PCR was negative blood culture has been obtained patient did have a chest x-ray there was patchy of pneumonia in t he left midlung which appears to be new compared to old exam per radiology patient was admitted to hospital he was started on Rocephin and Zithromax infectious disease was consulted for further management of antibiotic therapy Review of system: CONSTITUTIONAL: Positive for weakness denies fever. EYES: No complaint. ENT: No complaint. RESPIRATORY: As per history of present illness. CARDIOVASCULAR: No complaint. GENITOURINARY: No complaint. GASTROINTESTINAL: As per history of present illness. MUSCULOSKELETAL: No complaint. INTEGUMENTARY: No complaint. PSYCHOLOGIC: No complaint. ENDOCRINE: No complaint. NEUROLOGIC: No complaint. Past medical history : Reviewed, documented below Past surgical history : Reviewed, documented below Social history: Reviewed, documented below Medications: Reviewed, as documented below EXAMINATION: Vital sigans= Reviewed and documented below GENERAL DESCRIPTION: Middle-aged female lying in bed, no distress. No tachypnea or accessory muscle of respiration use. HEENT: Shows Pallor , no scleral icterus. Oral mucous membrane is dry. NECK: Trachea central, no thyromegaly. LUNGS: Unlabored breathing. Decrease intensity of breath sounds. No wheeze or crackle. HEART: S1, S2, regular rate and rhythm. ABDOMEN: Soft, mild distention but no tenderness , guarding or rigidity EXTREMITIES: No edema of feet. SKIN: No rash, no masses palpable. NEUROLOGICAL: The patient is awake, alert, oriented x3, mood and affect normal. LABS AND RADIOLOGY: Reviewed results see below Assessment : Patient is a 55-year female with a past medical history of hepatitis C cirrhosis of the liver and he did have a history of recurrent upper GI bleed presented to hospital with vomiting blood patient did have very minimal respiratory symptoms patient is not running any fever normal white count with minimal abnormality seen on the chest x-ray clinically not behaving as a typical bacterial pneumonia with the predominant GI symptoms Plan: 1-GI evaluation for her GI bleed and hemoglobin is to monitor closely 2-we will check a CRP and a procalcitonin level 3-May continue Rocephin and Zithromax while awaiting further work-up to finalize We will follow on clinical condition and cultures to further adjust medication if needed Thank you for this consultation we will follow the patient along with you Past Medical History Past Medical History: Cancer, COPD, GERD/Reflux, GI Bleed, Hearing Disorder / Deafness, Liver Disease Additional Past Medical History / Comment(s): Hepatitis C, intractable ascities with multiple paracentesis, cirrhosis, peritonitis, pancytopenia, vertigo once; multiple upper GI bleeds, esophageal varicies/esophageal banding, left breast cancer had chemo last on 09-12-16-did not tolerate-completed only 3 cycles-then it was stopped/received radiation treatments/no surgery yet but pt states she is to get a MRI to see if she can have surgery, lt ear deafness, R ear [place]. History of Any Multi-Drug Resistant Organisms: None Reported Past Surgical History: Adenoidectomy, Breast Surgery, Tonsillectomy Additional Past Surgical History / Comment(s): Multiple paracentesises, EGDs, esophageal banding, right chest mediport 08-06-16, l breast bx., Past Anesthesia/Blood Transfusion Reactions: No Reported Reaction Additional Past Anesthesia/Blood Transfusion Reaction / Comm: blood transfusions- no reaction Past Psychological History: Anxiety Additional Psychological History / Comment(s): Patient started smoking at age 14 yrs. old- 2 a pack a day and cut back to one to 3 cigarettes per day no history of alcohol abuse. Patient lives with her son. She is currently on disability. Smoking Status: Light tobacco smoker Past Alcohol Use History: None Reported Additional Past Alcohol Use History / Comment(s): Patient started smoking at age 14. She was a ppd smoker but cut back to one to 1-3 cigarettes per day in 2017. No history of alcohol abuse. Past Drug Use History: None Reported - Past Family History Mother Family Medical History: Cancer Additional Family Medical History / Comment(s): of lung ca at the age of 59yrs. She was a smoker. Father Family Medical History: Myocardial Infarction ([place]) Additional Family Medical History / Comment(s): from 2nd heart attack at the age of 59yrs. Medications and Allergies Home Medications Medication Instructions Recorded Confirmed Type HYDROmorphone [Dilaudid] 2 mg PO Q6H PRN 09/06/19 04/01/21 History Hydrocodone/Acetaminophen [[place] 1 tab PO Q6H PRN 09/06/19 04/01/21 History 10-325] Allergies Allergy/AdvReac Type Severity Reaction Status Date / Time No Known Allergies Allergy Verified 04/01/21 08:12 Physical Exam Vitals: Vital Signs Temp Pulse Pulse Resp BP BP Pulse Ox 04/01/21 08:00 97.8 F 83 16 111/70 94 L 04/01/21 04:03 95 18 129/97 96 04/01/21 01:24 18 04/01/21 01:17 98.1 F 99 26 H 95 Intake and Output 03/31/21 04/01/21 04/01/21 22:59 06:59 14:59 Intake Total 160 Balance 160 Intake: Intake, IV Titration 160 Amount Sodium Chloride 0.9% 1, 160 000 ml @ 20 mls/hr IV . Q24H [facility] Rx#:[id number] Other: Weight 78.471 kg 78.471 kg Results CBC & Chem 7: 04/01/21 02:06 04/01/21 02:06 Labs: Abnormal Lab Results - Last 24 Hours (Table) 04/01/21 04/01/21 04/01/21 Range/Units 02:06 02:06 02:06 WBC 1.8 L (3.8-10.6) k/uL RBC 3.33 L (3.80-5.40) m/uL MCV 114.1 H (80.0-100.0) fL MCH 36.1 H (25.0-35.0) pg Plt Count 36 L (150-450) k/uL Neutrophils # 0.8 L (1.3-7.7) k/uL Lymphocytes # 0.7 L (1.0-4.8) k/uL Macrocytosis Marked A PT 12.5 H (9.0-12.0) sec INR 1.2 H (<1.2) Sodium 136 L (137-145) mmol/L Chloride 108 H (98-107) mmol/L Glucose 100 H (74-99) mg/dL Calcium 7.9 L (8.4-10.2) mg/dL Total Bilirubin 2.1 H (0.2-1.3) mg/dL AST 37 H (14-36) U/L Albumin 2.8 L (3.5-5.0) g/dL
[2021-04-02 08:44] VITALS: BP 131/81; PULSE 76; RESP 18; TEMP 98.1
[2021-04-02] MEDS ORDERED: AZITHROMYCIN 500 MG TAB PO SCH (09:00)
== END 2021-04-02 10:03 | disposition left against medical advice (07) | DRG 193 ==
LOC: EC 01:11 → 4SSUR 04:02 → OBSVTOIN 14:41
PROVIDERS: ADMIT Family Medicine; ATTEND Family Medicine
DX: J18.9 Pneumonia, unspecified organism (principal); I85.01 Esophageal varices with bleeding; J44.0 Chronic obstructive pulmonary disease with (acute) lower respiratory infection; R04.2 Hemoptysis; K92.0 Hematemesis; D61.818 Other pancytopenia; K70.31 Alcoholic cirrhosis of liver with ascites; Z20.822 Contact with and (suspected) exposure to COVID-19; D72.810 Lymphocytopenia; B18.2 Chronic viral hepatitis C; D72.819 Decreased white blood cell count, unspecified; F17.210 Nicotine dependence, cigarettes, uncomplicated; F41.9 Anxiety disorder, unspecified; R19.7 Diarrhea, unspecified; K21.9 Gastro-esophageal reflux disease without esophagitis; H91.8X2 Other specified hearing loss, left ear; F10.20 Alcohol dependence, uncomplicated; H91.90 Unspecified hearing loss, unspecified ear; Z85.3 Personal history of malignant neoplasm of breast; Z92.21 Personal history of antineoplastic chemotherapy; Z82.49 Family history of ischemic heart disease and other diseases of the circulatory system; I25.2 Old myocardial infarction; Z98.890 Other specified postprocedural states; Z86.2 Personal history of diseases of the blood and blood-forming organs and certain disorders involving the immune mechanism; Z87.19 Personal history of other diseases of the digestive system; Z92.3 Personal history of irradiation
CPT/HCPCS: 36415; 71046; 80053; 81003; 83605; 83615; 83690; 83880; 84145; 84484; 85025; 85379; 85610; 85730; 86140; 87040; 87635; 93005

== ENCOUNTER 2021-08-01 19:35 | Emergency (ER) | payer MEDICARE, OTHER ==
[2021-08-01 20:34] VITALS: BP 160/79; PULSE 80; RESP 18; TEMP 99.2
[2021-08-01] MEDS ORDERED: MORPHINE SULFATE 4 MG/ML SYRINGE IM STA (21:17)
--- NOTE | 2021-08-01 21:22 | ED ---
General Adult HPI - General Chief complaint: Abdominal Pain Stated complaint: Right Leg/Side Pain Time Seen by Provider: 08/01/21 20:59 Source: patient Mode of arrival: ambulatory Limitations: no limitations - History of Present Illness Initial comments: Dictation was produced using M[employer] dictation software. please excuse any grammatical, word or spelling errors. Chief Complaint: 55-year-old female presents with leg pain History of Present Illness: 55-year-old female she was recently admitted to the hospital. She had a paracentesis performed. While she was admitted to the hospital under Dr. Estrada service she complained to PCP that she has been having leg pain. States that her right thigh area hurts and has a burning sen sation. Denies any injury to it. She is prescribed by mouth analgesics by her PCP. She states she is unable to get up tomorrow. She is here for some pain relief. Patient states that her symptoms are unchanged since yesterday. Denies any numbness and paresthesias to her right lower extremity. The ROS documented in this emergency department record has been reviewed and confirmed by me. Those systems with pertinent positive or negative responses have been documented in the HPI. All other systems are other negative and/or noncontributory. PHYSICAL EXAM: General Impression: Alert and oriented x3, not in acute distress HEENT: Normocephalic atraumatic, extra-ocular movements intact, pupils equal and reactive to light bilaterally, mucous membranes moist. Cardiovascular: Heart regular rate and rhythm Chest: Able to complete full sentences, no retractions, no tachypnea Abdomen: abdomen soft, non-tender, non-distended, no organomegaly Musculoskeletal: Pulses present and equal in all extremities, no peripheral edema Right lower; no skin changes, minimal palpatory tenderness Motor: no focal deficits noted Neurological: CN II-XII grossly intact, no focal motor or sensory deficits noted Skin: Intact with no visualized rashes Psych: Normal affect and mood ED course: 55-year-old female presenting to the emergency department for analgesics to treat her pain. She states she's unable to obtain her oral medications until tomorrow. Patient requesting some relief. She states that she wants some relief until tomorrow when she can [employer] her medications. Patient given IM injection of morphine and will be discharged. - Related Data Home Medications Medication Instructions Recorded Confirmed HYDROmorphone [Dilaudid] 2 mg PO Q6H PRN 09/06/19 07/31/21 Hydrocodone/Acetaminophen [[place] 1 tab PO Q6H PRN 09/06/19 07/31/21 10-325] Allergies Allergy/AdvReac Type Severity Reaction Status Date / Time No Known Allergies Allergy Verified 07/31/21 09:14 Review of Systems ROS Statement: Those systems with pertinent positive or pertinent negative responses have been documented in the HPI. ROS Other: All systems not noted in ROS Statement are negative. Past Medical History Past Medical History: Cancer, COPD, GERD/Reflux, GI Bleed, Hearing Disorder / Deafness, Liver Disease Additional Past Medical History / Comment(s): Hepatitis C, intractable ascities with multiple paracentesis, cirrhosis, peritonitis, pancytopenia, vertigo once; multiple upper GI bleeds, esophageal varicies/esophageal banding, left breast cancer had chemo last on 09-12-16-did not tolerate-completed only 3 cycles-then it was stopped/received radiation treatments/pt states she did not follow up and so did not have surgery lt ear deafness, R ear [place]. History of Any Multi-Drug Resistant Organisms: None Reported Past Surgical History: Adenoidectomy, Breast Surgery, Tonsillectomy Additional Past Surgical History / Comment(s): Multiple paracentesises, EGDs, esophageal banding, right chest mediport since removed, l breast bx., Past Anesthesia/Blood Transfusion Reactions: No Reported Reaction Additional Past Anesthesia/Blood Transfusion Reaction / Comment(s): blood transfusions- no reaction Past Psychological History: Anxiety Smoking Status: Current every day smoker, Light tobacco smoker Past Alcohol Use History: None Reported Past Drug Use History: None Reported - Past Family History Mother Family Medical History: Cancer Additional Family Medical History / Comment(s): of lung ca at the age of 59yrs. She was a smoker. Father Family Medical History: Myocardial Infarction ([place]) Additional Family Medical History / Comment(s): from 2nd heart attack at the age of 59yrs. General Exam Limitations: no limitations Course Vital Signs 08/01/21 20:31 Temperature 99.2 F Pulse Rate 80 Respiratory 18 Rate Blood Pressure 160/79 O2 Sat by Pulse 97 Oximetry Disposition Clinical Impression: Leg pain Disposition: HOME SELF-CARE Condition: Good Instructions (If sedation given, give patient instructions): Non- pharmacological Pain Management Therapies for Adults (ED) Is patient prescribed a controlled substance at d/c from ED?: No Referrals: Mark Estrada MD [Primary Care Provider] - 1-2 days
== END 2021-08-01 21:51 | disposition home or self-care (01) ==
LOC: EC 19:35
DX: M79.604 Pain in right leg (principal); F17.200 Nicotine dependence, unspecified, uncomplicated
CPT/HCPCS: 99283; 96372; J2270

== ENCOUNTER 2022-03-19 00:59 | Observation (INO) | payer MEDICARE, OTHER ==
--- NOTE | 2022-03-19 02:31 | ED ---
Abdominal Pain HPI - General Chief Complaint: Abdominal Pain Stated Complaint: Right Side Pain, Shortness of breath Time Seen by Provider: 03/19/22 02:18 Source: patient, RN notes reviewed Mode of arrival: ambulatory Limitations: no limitations - History of Present Illness Initial Comments: This is a pleasant 56-year-old female with history of multiple medical issues, most notably breast cancer, COPD, chronic liver disease, and chronic abdominal pain secondary to ascites. Patient comes ER stating that she believes she needs a paracentesis. Patient states that she has pain in her right side which has been chronic but is worse than usual over the past 3 days. Describing sharp pain in the right abdominal area. Pain is exacerbated by palpation and movement. States she also ascertains that she has some shortness of breath. Patient states she's been taking her Lasix as prescribed by her primary care physician with no relief. Patient also takes hydrocodone/acetaminophen at home for pain control. Patient has been on this medication for several years. No headache, no fever or chills, no changes in vision or hearing, no sore throat or difficulty with speech, no neck pain, no chest pain or shortness of breath,no nausea or vomiting, no changes in urination or bowel movements, no numbness or tingling, no extremity pain, no skin rashes or lesions. Past medical, surgical, social, and family history reviewed. MD Complaint: abdominal pain - Related Data Home Medications Medication Instructions Recorded Confirmed HYDROmorphone [Dilaudid] 2 mg PO Q6H PRN 09/06/19 07/31/21 Hydrocodone/Acetaminophen [[place] 1 tab PO Q6H PRN 09/06/19 07/31/21 10-325] Allergies Allergy/AdvReac Type Severity Reaction Status Date / Time No Known Allergies Allergy Verified 03/19/22 01:06 Review of Systems ROS Statement: Those systems with pertinent positive or pertinent negative responses have been documented in the HPI. ROS Other: All systems not noted in ROS Statement are negative. Past Medical History Past Medical History: Cancer, COPD, GERD/Reflux, GI Bleed, Hearing Disorder / Deafness, Liver Disease Additional Past Medical History / Comment(s): Hepatitis C, intractable ascities with multiple paracentesis, cirrhosis, peritonitis, pancytopenia, vertigo once; multiple upper GI bleeds, esophageal varicies/esophageal banding, left breast cancer had chemo last on 09-12-16-did not tolerate-completed only 3 cycles-then it was stopped/received radiation treatments/pt states she did not follow up and so did not have surgery lt ear deafness, R ear [place]. History of Any Multi-Drug Resistant Organisms: None Reported Past Surgical History: Adenoidectomy, Breast Surgery, Tonsillectomy Additional Past Surgical History / Comment(s): Multiple paracentesises, EGDs, esophageal banding, right chest mediport since removed, l breast bx., Past Anesthesia/Blood Transfusion Reactions: No Reported Reaction Additional Past Anesthesia/Blood Transfusion Reaction / Comment(s): blood transfusions- no reaction Past Psychological History: Anxiety Smoking Status: Current every day smoker, Light tobacco smoker Past Alcohol Use History: None Reported Past Drug Use History: None Reported - Past Family History Mother Family Medical History: Cancer Additional Family Medical History / Comment(s): of lung ca at the age of 59yrs. She was a smoker. Father Family Medical History: Myocardial Infarction ([place]) Additional Family Medical History / Comment(s): from 2nd heart attack at the age of 59yrs. General Exam - General Exam Comments Initial Comments: Patient's blood pressure mildly elevated at 151/72. Remainder of vital signs stable. Patient does not appear to be ill or toxic. Limitations: no limitations General appearance: alert, in distress (Mild) Head exam: Present: atraumatic, normocephalic, normal inspection Eye exam: Present: normal appearance, PERRL, EOMI. Absent: scleral icterus, conjunctival injection, periorbital swelling ENT exam: Present: normal exam, normal oropharynx, mucous membranes moist, normal external ear exam. Absent: mucous membranes dry Neck exam: Present: normal inspection, full ROM. Absent: tenderness, meningismus, lymphadenopathy Respiratory exam: Present: normal lung sounds bilaterally. Absent: respiratory distress, wheezes, rales, rhonchi, stridor Cardiovascular Exam: Present: regular rate, normal rhythm, normal heart sounds. Absent: systolic murmur, diastolic murmur, rubs, gallop, clicks GI/Abdominal exam: Present: soft, distended (Patient does have some generalized abdominal distention however the abdomen is soft otherwise.), tenderness (Patient tender along the right paracolic gutter area with palpable liver edge.), normal bowel sounds, organomegaly (Hepatomegaly), other (Positive fluid wave). Absent: guarding, rebound, rigid, diminished bowel sounds, hyperactive bowel sounds, bruit, pulsatile mass, hernia Extremities exam: Present: normal inspection, full ROM, normal capillary refill. Absent: tenderness, pedal edema, joint swelling, calf tenderness Back exam: Present: normal inspection Neurological exam: Present: alert, oriented X3, CN II-XII intact Psychiatric exam: Present: normal affect, normal mood Skin exam: Present: warm, dry, intact, normal color. Absent: rash Course Vital Signs 03/19/22 03/19/22 01:00 02:44 Temperature 98.1 F Pulse Rate 94 78 Respiratory 20 18 Rate Blood Pressure 151/72 148/96 O2 Sat by Pulse 98 98 Oximetry - Reevaluation(s) Reevaluation #1: 03/19/22 04:07 Medical record is reviewed Symptoms are improved here in the emergency department Patient is informed of results and questions answered Patient in no distress - Consultations Consultation #1: Patient endorsed to the ED attending physician at 4:32 AM. Awaiting callback from the patient's admitting physician, Dr. Estrada Medical Decision Making - Medical Decision Making Differential diagnosis: Chronic liver disease with increasing ascites, acute exacerbation of chronic abdominal pain, less likely intra-abdominal infectious processes such as appendicitis. Does not appear to be consistent with urological disorders. Does not appear to be consistent with gallbladder disease. NPatient's diagnostic findings do not appear to be consistent with infectious process. Patient's white blood cell count 3200 which is chronically low for the patient. MCV 102.1. Platelet count 54,000. Thrombocytopenia also chronic for the patient. INR is 1.3. PTT is pending. CMP essentially unremarkable aside from a minimally elevated AST at 72, total bilirubin of 3.3. Patient chronically hyperbilirubinemic. Troponin is negative. EKG done at 2:36 AM and independently interpreted by me reveals baseline artifact, sinus rhythm with a rate of 78, normal intervals, left axis deviation, poor R-wave progression, no ST elevation or depression. When yang red to the previous study from 03/31/2021, there is no significant change We'll admit the patient for ascites and probable paracentesis. The case was discussed in detail with ED attending physician. Presentation, findings, treatment plan discussed in detail. 4:24 AM, awaiting callback from the patient's admitting physician, Dr. Estrada. Supervising physician Dr. Dye - Lab Data Result diagrams: 03/19/22 02:44 03/19/22 02:44 Lab Results 03/19/22 03/19/22 03/19/22 Range/Units 02:44 02:44 02:44 WBC 3.2 L (3.8-10.6) k/uL RBC 4.10 (3.80-5.40) m/uL Hgb 14.7 (11.4-16.0) gm/dL Hct 41.8 (34.0-46.0) % MCV 102.1 H (80.0-100.0) fL MCH 35.8 H (25.0-35.0) pg MCHC 35.1 (31.0-37.0) g/dL RDW 13.5 (11.5-15.5) % Plt Count 54 L (150-450) k/uL MPV 9.4 Neutrophils % 45 % Lymphocytes % 40 % Monocytes % 8 % Eosinophils % 3 % Basophils % 1 % Neutrophils # 1.4 (1.3-7.7) k/uL Lymphocytes # 1.3 (1.0-4.8) k/uL Monocytes # 0.2 (0-1.0) k/uL Eosinophils # 0.1 (0-0.7) k/uL Basophils # 0.0 (0-0.2) k/uL Manual Slide Review Performed Large Platelets Present Macrocytosis Slight PT 13.3 H (9.0-12.0) sec INR 1.3 H (<1.2) Sodium 138 (137-145) mmol/L Potassium 4.9 (3.5-5.1) mmol/L Chloride 110 H (98-107) mmol/L Carbon Dioxide 23 (22-30) mmol/L Anion Gap 5 mmol/L BUN 11 (7-17) mg/dL Creatinine 0.63 (0.52-1.04) mg/dL Est GFR (CKD-EPI)AfAm >90 (>60 ml/min/1.73 sqM) Est GFR (CKD-EPI)NonAf >90 (>60 ml/min/1.73 sqM) Glucose 91 (74-99) mg/dL Plasma Lactic Acid [place] (0.7-2.0) mmol/L Calcium 8.5 (8.4-10.2) mg/dL Total Bilirubin 3.3 H (0.2-1.3) mg/dL AST 72 H (14-36) U/L ALT 24 (4-34) U/L Alkaline Phosphatase 99 (38-126) U/L Troponin I (0.000-0.034) ng/mL Total Protein 7.9 (6.3-8.2) g/dL Albumin 3.8 (3.5-5.0) g/dL Lipase 114 (23-300) U/L 03/19/22 03/19/22 Range/Units 02:44 02:44 WBC (3.8-10.6) k/uL RBC (3.80-5.40) m/uL Hgb (11.4-16.0) gm/dL Hct (34.0-46.0) % MCV (80.0-100.0) fL MCH (25.0-35.0) pg MCHC (31.0-37.0) g/dL RDW (11.5-15.5) % Plt Count (150-450) k/uL MPV Neutrophils % % Lymphocytes % % Monocytes % % Eosinophils % % Basophils % % Neutrophils # (1.3-7.7) k/uL Lymphocytes # (1.0-4.8) k/uL Monocytes # (0-1.0) k/uL Eosinophils # (0-0.7) k/uL Basophils # (0-0.2) k/uL Manual Slide Review Large Platelets Macrocytosis PT (9.0-12.0) sec INR (<1.2) Sodium (137-145) mmol/L Potassium (3.5-5.1) mmol/L Chloride (98-107) mmol/L Carbon Dioxide (22-30) mmol/L Anion Gap mmol/L BUN (7-17) mg/dL Creatinine (0.52-1.04) mg/dL Est GFR (CKD-EPI)AfAm (>60 ml/min/1.73 sqM) Est GFR (CKD-EPI)NonAf (>60 ml/min/1.73 sqM) Glucose (74-99) mg/dL Plasma Lactic Acid [place] 2.0 (0.7-2.0) mmol/L Calcium (8.4-10.2) mg/dL Total Bilirubin (0.2-1.3) mg/dL AST (14-36) U/L ALT (4-34) U/L Alkaline Phosphatase (38-126) U/L Troponin I <0.012 (0.000-0.034) ng/mL Total Protein (6.3-8.2) g/dL Albumin (3.5-5.0) g/dL Lipase (23-300) U/L - Radiology Data Radiology results: pending, report reviewed, image reviewed Noncontrast computed tomography scan independently interpreted by me reveals evidence of extensive ascites. Radiology report is delayed. Disposition Clinical Impression: Abdominal pain, Ascites, Thrombocytopenia, Chronic liver disease and cirrhosis Disposition: ADMITTED IP TO THIS [facility] Condition: Fair Referrals: Mark Estrada MD [Primary Care Provider] - 1-2 days Time of Disposition: 04:23 Decision to Admit Reason: Admit from EC Decision Time: 04:07
[2022-03-19 02:51] LABS: Basophils % (A) 1 %; Eosinophils # (A) 0.1 k/uL (0-0.7); Eosinophils % (A) 3 %; HCT 41.8 % (34.0-46.0); HGB 14.7 gm/dL (11.4-16.0); Lymphocytes # (A) 1.3 k/uL (1.0-4.8); Lymphocytes % (A) 40 %; MCH 35.8 pg (25.0-35.0); MCHC 35.1 g/dL (31.0-37.0); MCV 102.1 fL (80.0-100.0); Macrocytosis Slight; Mean Platelet Volume 9.4; Monocytes # (A) 0.2 k/uL (0-1.0); Monocytes % (A) 8 %; Neutrophils # (A) 1.4 k/uL (1.3-7.7); Neutrophils % (A) 45 %; RDW 13.5 % (11.5-15.5); WBC 3.2 k/uL (3.8-10.6)
[2022-03-19 02:57] LABS: INR 1.3 (<1.2); Prothrombin Time 13.3 sec (9.0-12.0)
[2022-03-19 03:04] LABS: ALT 24 U/L (4-34); African American GFR (CKD) >90 (>60 ml/min/1.73 sqM); Anion Gap 5 mmol/L; Blood Urea Nitrogen 11 mg/dL (7-17); Calcium 8.5 mg/dL (8.4-10.2); Carbon Dioxide 23 mmol/L (22-30); Chloride 110 mmol/L (98-107); Glucose 91 mg/dL (74-99); Lipase 114 U/L (23-300); Non-African American GFR(CKD) >90 (>60 ml/min/1.73 sqM); Sodium 138 mmol/L (137-145)
--- NOTE | 2022-03-19 03:11 | XR ---
EXAMINATION TYPE: XR KUB DATE OF EXAM: 03/19/2022 COMPARISON: 03/10/2021 HISTORY: Abdominal pain TECHNIQUE: 3 views upright FINDINGS: There is no sign of intestinal obstruction or pneumoperitoneum. Fecal pattern is normal. Ex am limited by patient size. No evidence of a mass. Lung bases appear clear. No calcifications seen ov er the kidneys. IMPRESSION: Nonacute abdomen. No change. Increased density over the abdomen raises the possibility of abdominal ascites.
[2022-03-19] MEDS ORDERED: HYDROmorphone 1 MG/ML 1 ML SYRINGE IVP STA ×2 (03:18→04:25)
[2022-03-19 03:33] LABS: Albumin 3.8 g/dL (3.5-5.0); Total Protein 7.9 g/dL (6.3-8.2)
[2022-03-19 03:34] LABS: AST 72 U/L (14-36); Alkaline Phosphatase 99 U/L (38-126); Potassium 4.9 mmol/L (3.5-5.1); Total Bilirubin 3.3 mg/dL (0.2-1.3)
[2022-03-19 03:47] LABS: Large Platelets Present; Platelet Count 54 k/uL (150-450)
[2022-03-19] MEDS ORDERED: ONDANSETRON 4 MG/2 ML VIAL IVP PRN (04:07)
[2022-03-19] MEDS ORDERED: HYDROmorphone 1 MG/ML 1 ML SYRINGE IVP PRN ×2 (04:07→09:13)
[2022-03-19] MEDS ORDERED: NALOXONE 0.4 MG/ML 1 ML VIAL IV PRN (04:07)
[2022-03-19] MEDS ORDERED: SODIUM CHLORIDE 0.9% 1,000 ML IV SCH (04:15)
--- NOTE | 2022-03-19 05:02 | CT ---
EXAMINATION TYPE: CT abdomen pelvis wo con DATE OF EXAM: 03/19/2022 COMPARISON: 12/12/2020 HISTORY: Right sided abdominal pain CT DLP: 832 mGycm Automated exposure control for dose reduction was used. Images obtained from the diaphragm to the floor the pelvis with no contrast. Lung bases are clear. No pleural effusion. Heart size is normal. There is massive abdominal ascites. Liver is small and consistent with cirrhosis. There are calcified gallstones. Spleen is intact. The spleen is large and measures 14 cm. Liver measures 11 cm in length . Stomach is intact. There is no pancreatic mass. There is no adrenal mass. Kidneys show normal size and contour. No hydronephrosis. There is 2 mm calc ulus lower pole of the right kidney. No retroperitoneal adenopathy. Urinary bladder distends smoothly . Uterus is anteverted. No evidence of a pelvic mass. There is no mesenteric edema. No evidence of fr ee air. No sign of a bowel obstruction. The lumbar vertebra have normal alignment. No compression fracture. The bony pelvis is intact. There is minor spurring at the hip joints. Bony pelvis is intact. IMPRESSION: Massive abdominal ascites similar to old exam. Small liver consistent with cirrhosis. Splenomegaly. N o acute abnormality in the abdomen pelvis
[2022-03-19 06:28] LABS: Appearance,Urine Clear (Clear); Bilirubin,Urine 1+ (Negative); Blood,Urine Trace (Negative); Color,Urine Yellow; Glucose,Urine (UA) Negative (Negative); Ketones,Urine Trace (Negative); Leukocyte Esterase,Urine Negative (Negative); Mucus,Urine Many /hpf; Nitrite,Urine Negative (Negative); Protein,Urine Trace (Negative); RBC,Urine <1 /hpf (0-5); Specific Gravity,Urine 1.021 (1.001-1.035); Squamous Epithelial Cell,Urine 5 /hpf (0-4); WBC,Urine 2 /hpf (0-5)
[2022-03-19 10:44] VITALS: RESP 18
[2022-03-19] MEDS ORDERED: FUROSEMIDE 40 MG TAB PO SCH (15:00)
[2022-03-19] MEDS ORDERED: SPIRONOLACTONE 25 MG TAB PO SCH (15:00)
[2022-03-19 15:40] VITALS: BP 146/85; PULSE 79; TEMP 97.7
--- NOTE | 2022-03-19 15:54 | US ---
Ultrasound-guided paracentesis. DATE OF EXAM: 03/19/2022 CLINICAL HISTORY: Ascites The procedure was discussed with the patient. The risks, complications, benefits, and alternatives we re discussed and any questions were answered. Informed consent was obtained. The patient was placed s upine on the ultrasound table and prepped and draped in the usual sterile fashion. All elements of maximal barrier technique were utilized. Under ultrasound guidance, access into the right lower quadrant was obtained, via the paracentesis catheter system and direct ultrasound guidanc e. Approximately 9 liters of straw-colored fluid was removed. The patient was stable throughout the proc edure and remained stable upon discharge from Department of Radiology. IMPRESSION: Successful paracentesis under ultrasound guidance.
--- NOTE | 2022-03-19 22:57 | DS ---
DISCHARGE SUMMARY CHIEF COMPLAINT: Ascites. HISTORY OF PRESENT ILLNESS AND PHYSICAL EXAMINATION: Details of this lady's history and physical can be found in the initial workup. LABORATORY STUDIES: While she was in the hospital, she had laboratory studies, details of which can be found in the laboratory section of her chart. COURSE IN THE HOSPITAL: After admission, she was placed on bedrest, started on intravenous fluids and was tapped for 9 L of ascitic fluid. Postoperatively, she was doing well, was having no abdominal pain, chills, fever, and requested to be discharged. She will go home on her usual diet, activity, and medication. She likely will follow up in the office. FINAL DIAGNOSES: 1. Ascites. 2. Cirrhosis. 3. Chronic obstructive pulmonary disease. 4. Malnutrition. 5. Analgesic abuse. OPERATIONS: Paracentesis. CONSULTATION: Interventional Radiology. KAUSHIK / KAREEM: [id number] /
--- NOTE | 2022-03-20 01:46 | HP ---
HISTORY AND PHYSICAL CHIEF COMPLAINT: Abdominal pain and ascites. HISTORY OF PRESENT ILLNESS: This is another admission for this 56-year-old lady, who has advanced cirrhosis with ascites. She does not take her diuretics and lately has been filling up with ascitic fluids to the point where she was having pain and then came to the emergency room. She has had no fever, chills, vomiting, etc. She has had peritonitis in the past. REVIEW OF SYSTEMS: Otherwise unremarkable and noncontributory. Past medical history, family history, personal and social histories are unremarkable and noncontributory except that she has a very poor health and does not take good care of herself. She smokes and is very inconsistent and noncompliant taking medication. PHYSICAL EXAMINATION: VITAL SIGNS: Blood pressure is 106/60 with a pulse of 78, respirations of 34, and she is afebrile. GENERAL: She appeared to be chronically ill. HEAD, EARS, EYES, NOSE, MOUTH AND THROAT: Normal. NECK: Neck veins not distended. CHEST: Demonstrated poor breath sounds. CARDIAC: Demonstrated tachycardia. ABDOMEN: Extremely distended tightly with ascitic fluid and she was tender throughout. EXTREMITIES: Normal. NEUROLOGICAL: She is intact. ASSESSMENT: She is admitted to the hospital with diagnosis of advanced cirrhosis with ascites. PLAN: 1. Bed rest. 2. Consult with Interventional Radiology. KAUSHIK / NESTORN: [id number] /
== END 2022-03-19 16:30 | disposition home or self-care (01) ==
LOC: EC 00:59 → 6NMEDSUR 04:23
PROVIDERS: ADMIT Family Medicine; ATTEND Family Medicine
DX: R18.8 Other ascites (principal); J44.9 Chronic obstructive pulmonary disease, unspecified; E46 Unspecified protein-calorie malnutrition; F11.10 Opioid abuse, uncomplicated; K21.9 Gastro-esophageal reflux disease without esophagitis; B19.20 Unspecified viral hepatitis C without hepatic coma; K74.60 Unspecified cirrhosis of liver; D61.818 Other pancytopenia; F41.9 Anxiety disorder, unspecified; F17.200 Nicotine dependence, unspecified, uncomplicated; H91.8X3 Other specified hearing loss, bilateral; C50.812 Malignant neoplasm of overlapping sites of left female breast; K80.20 Calculus of gallbladder without cholecystitis without obstruction; N20.0 Calculus of kidney; D69.6 Thrombocytopenia, unspecified; R16.1 Splenomegaly, not elsewhere classified; Z92.21 Personal history of antineoplastic chemotherapy; Z92.3 Personal history of irradiation; Z80.1 Family history of malignant neoplasm of trachea, bronchus and lung; Z82.49 Family history of ischemic heart disease and other diseases of the circulatory system; Z91.199 Patient's noncompliance with other medical treatment and regimen due to unspecified reason; Z68.22 Body mass index [BMI] 22.0-22.9, adult
CPT/HCPCS: 96376; 96374; 99285; 36415; 93005; 80053; 83605; 83690; 84484; 85025; 85610; 81001; 74018; 49083; 74176; G0378; J1170

== ENCOUNTER 2022-04-08 06:17 | Inpatient (IN) | payer MEDICARE, OTHER ==
--- NOTE | 2022-04-08 06:39 | ED ---
General Adult HPI - General Chief complaint: GI Bleed Stated complaint: Coughing up blood Time Seen by Provider: 04/08/22 06:19 Source: patient, EMS, RN notes reviewed Mode of arrival: EMS Limitations: no limitations - History of Present Illness Initial comments: This a 56-year-old female presents emergency Department chief complaint of coughing up blood. Patient states that she had a few episodes where she has a tickle in her throat that she coughs up some sputum with blood noted. Patient does have a history of breast cancer states that receiving any current treatment. She has no complaints of increased abdominal pain she does have known ascites, liver disease. She states that she's had no episodes of vomiting denies any melanotic stools denies dysuria, hematuria states she does not feel short of breath this time she has had mild congestion. - Related Data Home Medications Medication Instructions Recorded Confirmed HYDROmorphone [Dilaudid] 2 mg PO Q6H PRN 09/06/19 03/19/22 Hydrocodone/Acetaminophen [[place] 1 tab PO Q6H PRN 09/06/19 03/19/22 10-325] Furosemide [Lasix] 40 mg PO DAILY 03/19/22 03/19/22 Spironolactone [Aldactone] 25 mg PO DAILY 03/19/22 03/19/22 Allergies Allergy/AdvReac Type Severity Reaction Status Date / Time No Known Allergies Allergy Verified 04/08/22 06:19 Review of Systems ROS Statement: Those systems with pertinent positive or pertinent negative responses have been documented in the HPI. ROS Other: All systems not noted in ROS Statement are negative. Past Medical History Past Medical History: Cancer, COPD, GERD/Reflux, GI Bleed, Hearing Disorder / Deafness, Liver Disease Additional Past Medical History / Comment(s): Hepatitis C, intractable ascities with multiple paracentesis, cirrhosis, peritonitis, pancytopenia, vertigo once; multiple upper GI bleeds, esophageal varicies/esophageal banding, left breast cancer had chemo last on 09-12-16-did not tolerate-completed only 3 cycles-then it was stopped/received radiation treatments/pt states she did not follow up and so did not have surgery lt ear deafness, R ear [place]. History of Any Multi-Drug Resistant Organisms: None Reported Past Surgical History: Adenoidectomy, Breast Surgery, Tonsillectomy Additional Past Surgical History / Comment(s): Multiple paracentesises, EGDs, esophageal banding, right chest mediport since removed, l breast bx., Past Anesthesia/Blood Transfusion Reactions: No Reported Reaction Additional Past Anesthesia/Blood Transfusion Reaction / Comment(s): blood transfusions- no reaction Past Psychological History: Anxiety Smoking Status: Current every day smoker, Light tobacco smoker Past Alcohol Use History: None Reported Past Drug Use History: None Reported - Past Family History Mother Family Medical History: Cancer Additional Family Medical History / Comment(s): of lung ca at the age of 5 9yrs. She was a smoker. Father Family Medical History: Myocardial Infarction ([place]) Additional Family Medical History / Comment(s): from 2nd heart attack at the age of 59yrs. General Exam Limitations: no limitations General appearance: alert, in no apparent distress Head exam: Present: atraumatic, normocephalic, normal inspection Eye exam: Present: normal appearance, PERRL, EOMI. Absent: scleral icterus, conjunctival injection, periorbital swelling ENT exam: Present: normal exam, normal oropharynx, mucous membranes moist Neck exam: Present: normal inspection, full ROM. Absent: tenderness, meningismus, lymphadenopathy Respiratory exam: Present: normal lung sounds bilaterally. Absent: respiratory distress, wheezes, rales, rhonchi, stridor Cardiovascular Exam: Present: regular rate, normal rhythm, normal heart sounds. Absent: systolic murmur, diastolic murmur, rubs, gallop, clicks GI/Abdominal exam: Present: soft, normal bowel sounds. Absent: distended, tenderness, guarding, rebound, rigid Course Vital Signs 04/08/22 04/08/22 04/08/22 06:20 07:17 08:14 Temperature 98.2 F 97.7 F Pulse Rate 103 H 82 98 Respiratory 20 18 18 Rate Blood Pressure 170/85 162/84 163/94 O2 Sat by Pulse 95 93 L 98 Oximetry Medical Decision Making - Medical Decision Making Was pt. sent in by a medical professional or institution? @ -no Did you speak to anyone other than the patient for history? @ -EMS provided prehospital care, vitals medications Did you review nursing and triage notes? @ -agree and reviewed Were old charts reviewed? @ -no Differential Diagnosis? @ -Pneumonia, PE, lung cancer,, bronchitis, this this is not meant to be all- inclusive EKG interpreted by me (3pts min.)? @ -EKG performed at 6:42 normal sinus rhythm rate of 95 NH 136 QRS 76 QT status QTC 348/437 interpreted by me X-rays interpreted by me (1pt min.)? @ -Chest x-ray shows possible midlung opacity interpreted by me CT interpreted by me (1pt min.)? @ -Interpreted by me CT chest PE study no evidence of PE, left lung pneumonia type changes U/S interpreted by me (1pt. min.)? @ -no What testing was considered but not performed? (CT, X-rays, U/S, labs)? Why? @ no What meds were considered but not given? Why? @ -no Did you discuss the management of the patient with other professionals? @ -Scheduling Specialist Dr. Estrada Did you reconcile home meds? @ -yes Was smoking cessation discussed for >3mins.? @ -no Was critical care preformed (if so, how long)? @ -no Were there social determinants of health that impacted care today? How? (Homelessness, low income, unemployed, alcoholism, drug addiction, transportation, low edu. Level, literacy, decrease access to med. care, assisted, rehab)? @ -no Was there de-escalation of care discussed even if they declined? (Discuss DNR or withdrawal of care, Hospice)? @ -no What co-morbidities impacted this encounter? (DM, HTN, Smoking, COPD, CAD, Cancer, CVA, Hep., AIDS, mental health diagnosis, sleep apnea, morbid obesity)? @ -cancer - breast Was patient admitted / discharged? @ -admitted Undiagnosed new problem with uncertain prognosis? @ -yes - hemoptysis Drug Therapy requiring intensive monitoring for toxicity (Heparin, Nitro, Insulin, Cardizem)? @ -no Were any procedures done? @ -no Diagnosis/symptom? @ -Pneumonia Acute, or Chronic, or Acute on Chronic? @ -Acute Uncomplicated (without systemic symptoms) or Complicated (systemic symptoms)? @ -Complicated patient has hemoptysis Side effects of treatment? @ -none Exacerbation, Progression, or Severe Exacerbation] @ -no Poses a threat to life or bodily function? @ -yes Diagnosis/symptom? @ -Hemoptysis Acute, or Chronic, or Acute on Chronic? @ -Acute Uncomplicated (without systemic symptoms) or Complicated (systemic symptoms)? @ -uncomplicated Side effects of treatment? @ -none Exacerbation, Progression, or Severe Exacerbation] @ -no Poses a threat to life or bodily function? @ -no - Lab Data Result diagrams: 04/08/22 06:21 04/08/22 06:21 Lab Results 04/08/22 04/08/22 04/08/22 Range/Units 06:21 06:21 06:21 WBC 2.3 L (3.8-10.6) k/uL RBC 3.68 L (3.80-5.40) m/uL Hgb 13.2 (11.4-16.0) gm/dL Hct 38.7 (34.0-46.0) % MCV 105.0 H (80.0-100.0) fL MCH 35.8 H (25.0-35.0) pg MCHC 34.1 (31.0-37.0) g/dL RDW 14.3 (11.5-15.5) % Plt Count 54 L (150-450) k/uL MPV 9.3 Neutrophils % (Manual) 45 % Lymphocytes % (Manual) 40 % Monocytes % (Manual) 13 % Eosinophils % (Manual) 2 % Neutrophils # (Manual) 1.04 L (1.3-7.7) k/uL Lymphocytes # (Manual) 0.92 L (1.0-4.8) k/uL Monocytes # (Manual) 0.30 (0-1.0) k/uL Eosinophils # (Manual) 0.05 (0-0.7) k/uL Nucleated RBCs 0 (0-0) /100 WBC Manual Slide Review Performed Macrocytosis Moderate PT 12.0 (9.0-12.0) sec INR 1.2 H (<1.2) APTT 27.6 (22.0-30.0) sec D-Dimer 1.55 H (<0.60) mg/L FEU Sodium 140 (137-145) mmol/L Potassium 3.7 (3.5-5.1) mmol/L Chloride 109 H (98-107) mmol/L Carbon Dioxide 27 (22-30) mmol/L Anion Gap 4 mmol/L BUN 17 (7-17) mg/dL Creatinine 0.64 (0.52-1.04) mg/dL Est GFR (CKD-EPI)AfAm >90 (>60 ml/min/1.73 sqM) Est GFR (CKD-EPI)NonAf >90 (>60 ml/min/1.73 sqM) Glucose 107 H (74-99) mg/dL Calcium 8.1 L (8.4-10.2) mg/dL Magnesium 1.9 (1.6-2.3) mg/dL Total Bilirubin 1.8 H (0.2-1.3) mg/dL AST 41 H (14-36) U/L ALT 24 (4-34) U/L Alkaline Phosphatase 123 (38-126) U/L Troponin I (0.000-0.034) ng/mL Total Protein 7.1 (6.3-8.2) g/dL Albumin 3.0 L (3.5-5.0) g/dL 04/08/22 Range/Units 06:21 WBC (3.8-10.6) k/uL RBC (3.80-5.40) m/uL Hgb (11.4-16.0) gm/dL Hct (34.0-46.0) % MCV (80.0-100.0) fL MCH (25.0-35.0) pg MCHC (31.0-37.0) g/dL RDW (11.5-15.5) % Plt Count (150-450) k/uL MPV Neutrophils % (Manual) % Lymphocytes % (Manual) % Monocytes % (Manual) % Eosinophils % (Manual) % Neutrophils # (Manual) (1.3-7.7) k/uL Lymphocytes # (Manual) (1.0-4.8) k/uL Monocytes # (Manual) (0-1.0) k/uL Eosinophils # (Manual) (0-0.7) k/uL Nucleated RBCs (0-0) /100 WBC Manual Slide Review Macrocytosis PT (9.0-12.0) sec INR (<1.2) APTT (22.0-30.0) sec D-Dimer (<0.60) mg/L FEU Sodium (137-145) mmol/L Potassium (3.5-5.1) mmol/L Chloride (98-107) mmol/L Carbon Dioxide (22-30) mmol/L Anion Gap mmol/L BUN (7-17) mg/dL Creatinine (0.52-1.04) mg/dL Est GFR (CKD-EPI)AfAm (>60 ml/min/1.73 sqM) Est GFR (CKD-EPI)NonAf (>60 ml/min/1.73 sqM) Glucose (74-99) mg/dL Calcium (8.4-10.2) mg/dL Magnesium (1.6-2.3) mg/dL Total Bilirubin (0.2-1.3) mg/dL AST (14-36) U/L ALT (4-34) U/L Alkaline Phosphatase (38-126) U/L Troponin I <0.012 (0.000-0.034) ng/mL Total Protein (6.3-8.2) g/dL Albumin (3.5-5.0) g/dL Disposition Clinical Impression: Pneumonia, Hemoptysis Disposition: ADMITTED IP TO THIS [facility] Condition: Poor Referrals: Mark Estrada MD [Primary Care Provider] - 1-2 days Time of Disposition: 08:19
[2022-04-08 06:48] LABS: HCT 38.7 % (34.0-46.0); HGB 13.2 gm/dL (11.4-16.0); MCH 35.8 pg (25.0-35.0); MCHC 34.1 g/dL (31.0-37.0); Macrocytosis Moderate; Mean Platelet Volume 9.3; RBC 3.68 m/uL (3.80-5.40); RDW 14.3 % (11.5-15.5); WBC 2.3 k/uL (3.8-10.6)
[2022-04-08 07:05] LABS: ALT 24 U/L (4-34); AST 41 U/L (14-36); African American GFR (CKD) >90 (>60 ml/min/1.73 sqM); Alkaline Phosphatase 123 U/L (38-126); Anion Gap 4 mmol/L; Blood Urea Nitrogen 17 mg/dL (7-17); Calcium 8.1 mg/dL (8.4-10.2); Carbon Dioxide 27 mmol/L (22-30); Chloride 109 mmol/L (98-107); Glucose 107 mg/dL (74-99); Magnesium 1.9 mg/dL (1.6-2.3); Non-African American GFR(CKD) >90 (>60 ml/min/1.73 sqM); Potassium 3.7 mmol/L (3.5-5.1); Sodium 140 mmol/L (137-145); Total Bilirubin 1.8 mg/dL (0.2-1.3); Total Protein 7.1 g/dL (6.3-8.2)
[2022-04-08 07:06] LABS: INR 1.2 (<1.2); Partial Thromboplastin Time 27.6 sec (22.0-30.0)
[2022-04-08 07:13] LABS: Platelet Count 54 k/uL (150-450)
[2022-04-08 07:43] LABS: Eosinophils # (M) 0.05 k/uL (0-0.7); Lymphocytes # (M) 0.92 k/uL (1.0-4.8); Neutrophils # (M) 1.04 k/uL (1.3-7.7); Neutrophils % (M) 45 %; Nucleated Red Blood Cells 0 /100 WBC (0-0); Total Cells Counted 100
--- NOTE | 2022-04-08 08:05 | XR ---
EXAMINATION TYPE: XR chest 2V DATE OF EXAM: 04/08/2022 7:24 AM COMPARISON: Chest radiographs from 04/01/2021 TECHNIQUE: XR chest 2V Frontal and lateral views of the chest. CLINICAL INDICATION:Female, 56 years old with history of Chest Pain; FINDINGS: Lungs/Pleura: Persistent left midlung opacity from 2020 No evidence of pneumothorax or large pleural effusion. Pulmonary vascularity: Unremarkable. Heart/mediastinum: Cardiomediastinal silhouette is unremarkable. Musculoskeletal: No acute osseous pathology. IMPRESSION: No significant change from prior with persistent left midlung opacity. This could be further evaluate d with chest CT if not recently performed.
[2022-04-08] MEDS ORDERED: HYDROmorphone 1 MG/ML 1 ML SYRINGE IVP STA (08:13)
--- NOTE | 2022-04-08 08:15 | CT ---
EXAMINATION TYPE: CT chest angio for PE CT DLP: 207 mGycm, Automated exposure control for dose reduction was used. DATE OF EXAM: 04/08/2022 7:56 AM COMPARISON: CT 09/06/2018. CLINICAL INDICATION:Female, 56 years old with history of Hemoptysis, chest pain, shortness breath; He moptysis, chest pain, SOB TECHNIQUE/CONTRAST: CTA scan of the thorax is performed without and with IV Contrast, patient injected with 100 ml mL of Isovue 370, pulmonary embolism protocol. MIP images are created and reviewed these are created on a separate workstation.. FINDINGS: Pulmonary Artery: There is no evidence for a filling defect within the pulmonary vasculature to sugge st acute pulmonary embolism. The pulmonary artery is is dilated up to 3.9 cm. Lungs/Pleura: Moderate centrilobular emphysema changes are present throughout the lungs. Airspace opa cities within left upper lobe. No evidence of pneumothorax or pleural effusion.. Airway: Large airways are patent. Heart: Heart is within normal limits for size. Vasculature: No evidence of aortic aneurysm. There is a 4 vessel aortic arch. Mediastinum: No gross evidence of adenopathy. Musculoskeletal: No acute osseous abnormalities multilevel disc degeneration changes throughout the s pine. Soft Tissues: Unremarkable. Lower neck: No significant findings. Upper Abdomen: Nodular contour to the liver with shrunken appearance. The liver spleen is enlarged me asuring 14.4 cm. Cholelithiasis. Moderate abdominal ascites. IMPRESSION: 1. No evidence of pulmonary embolism. 2. Left upper lobe airspace opacities correlate for pneumonia. 3. Pulmonary hypertension. 4. Hepatic cirrhosis with evidence of portal hypertension with splenomegaly and ascites. 5. Moderate Emphysema changes.
[2022-04-08] MEDS ORDERED: AZITHROMYCIN 500 MG in SODIUM CHLORIDE 0.9% 250 ML IVPB STA (08:23)
[2022-04-08] MEDS ORDERED: PNEUMONIA PROTOCOL UTILIZED 1 EACH MISC PO PRN (08:23)
[2022-04-08] MEDS: FUROSEMIDE 40 MG TAB PO SCH (08:59)
[2022-04-08] MEDS ORDERED: SPIRONOLACTONE 25 MG TAB PO SCH (09:00)
[2022-04-08] MEDS: HYDROcodone/APAP 10-325MG 1 EACH TAB PO PRN ×2 (09:03→18:00)
[2022-04-08] MEDS: HYDROmorphone 2 MG TAB PO PRN (11:19)
[2022-04-08] MEDS: HYDROmorphone 1 MG/ML 1 ML SYRINGE IVP PRN (20:59)
--- NOTE | 2022-04-08 21:57 | HP ---
HISTORY AND PHYSICAL CHIEF COMPLAINT: Shortness of breath and hemoptysis. HISTORY OF PRESENT ILLNESS: This is another recent admission for this 56-year-old white female with cirrhosis, history of hepatitis C and intractable ascites. She also is a heavy smoker and frequently comes in for paracentesis. She is noncompliant and only comes to the office for her analgesics. She apparently has some shortness of breath and started coughing up blood, came to emergency room where she was found to have a bronchial pneumonia. REVIEW OF SYSTEMS: She has denies any chest pain, nausea, vomiting, melena, hematochezia, etc. Her platelet count is 57,000. Past medical history, family history and personal and social histories are all otherwise unremarkable and noncontributory or unchanged. PHYSICAL EXAMINATION: VITAL SIGNS: Blood pressure is 108/73 with a pulse of 86, respirations of 37, and she is afebrile. GENERAL: She appeared to be chronically ill. She was pale. HEENT: Head, ears, eyes, nose, mouth, and throat were normal. CHEST: Demonstrated poor breath sounds bilaterally with scattered rales and rhonchi. CARDIAC: Demonstrated sinus tachycardia. ABDOMEN: Protuberant with ascites. EXTREMITIES: Normal. NEUROLOGIC: She is intact. DIAGNOSES: She is admitted to the hospital with diagnoses, 1. Bronchopneumonia. 2. Chronic obstructive pulmonary disease. 3. Cirrhosis. 4. History of hepatitis C. 5. Intractable ascites secondary to portal hypertension. PLAN: 1. Bedrest. 2. IV fluids. 3. Updrafts. 4. Antibiotics. MMIVELISSE / KAREEM: [id number] /
[2022-04-09] MEDS: HYDROmorphone 2 MG TAB PO PRN (00:25)
[2022-04-09] MEDS: HYDROmorphone 1 MG/ML 1 ML SYRINGE IVP PRN ×3 (03:25→21:52)
[2022-04-09] MEDS ORDERED: IPRATROPIUM-ALBUTEROL 3 ML NEB IH STA (05:48)
[2022-04-09] MEDS: ALPRAZolam 1 MG TAB PO PRN (06:20)
--- NOTE | 2022-04-09 08:14 | XR ---
EXAM: XR Chest, 1 View CLINICAL HISTORY: ITS.REASON XR Reason: Resp distress TECHNIQUE: Frontal view of the chest. COMPARISON: XR Chest dated 04/08/2022 FINDINGS: Lungs: Increased conspicuity of left midlung airspace opacity. Consider CT. Pleural space: Unremarkable. No pneumothorax. Heart: Unremarkable. No cardiomegaly. Mediastinum: Unremarkable. Bones/joints: Degenerative changes in the spine. Tubes, lines and devices: EKG leads. IMPRESSION: Increased conspicuity of left midlung airspace opacity. Consider CT.
[2022-04-09 08:51] LABS: African American GFR (CKD) 94.9 (60.0-200.0); Anion Gap 8.9 mmol/L (10.00-18.00); BUN/Creat Ratio 23.88 Ratio (12.00-20.00); Blood Urea Nitrogen 19.1 mg/dL (9.0-27.0); Calcium 8.3 mg/dL (8.7-10.3); Carbon Dioxide 24.1 mmol/L (20.0-27.5); Non-African American GFR(CKD) 81.8 (60.0-200.0); Potassium 3.7 mmol/L (3.5-5.5)
[2022-04-09] MEDS: SPIRONOLACTONE 25 MG TAB PO SCH (09:19)
[2022-04-09] MEDS: FUROSEMIDE 40 MG TAB PO SCH (09:19)
[2022-04-09] MEDS: AZITHROMYCIN 500 MG TAB PO SCH (09:19)
[2022-04-09] MEDS: LACTULOSE 20 GM/30 ML CUP PO SCH ×3 (09:20→20:58)
[2022-04-09 11:43] LABS: HCT 38.1 % (37.2-46.3); HGB 12.6 g/dL (12.0-15.0); MCH 34.5 pg (27.0-32.0); MCHC 33.1 g/dL (32.0-37.0); MCV 104.4 fL (80.0-97.0); Mean Platelet Volume 10.2 fL (9.5-12.2); NRBC Per 100 WBC 0 /100 WBCS (0.0-0.0); Platelet Count 52 X 10*3/uL (140-440); RBC 3.65 X 10*6/uL (4.10-5.20); WBC 3.14 X 10*3/uL (4.50-10.00)
[2022-04-09 11:44] LABS: Immature Platelet Fraction 5.2 % (1.1-6.1)
[2022-04-09] MEDS ORDERED: LACTULOSE 20 GM/30 ML CUP PO ONE (14:17)
--- NOTE | 2022-04-09 14:17 | P.CONS ---
History of Present Illness - Reason for Consult Consult date: 04/09/22 Heoptysis Requesting physician: Francisco Doty - Chief Complaint Coughing up blood - History of Present Illness This a pleasant 56-year-old female who presented to the emergency department, complaining of coughing and coughing of mucousy blood. Patient has a past medical history including cirrhosis of the liver from hepatitis C with ascites, pancytopenia, esophageal varices, and breast cancer. Patient has not followed up with gastroenterology for the past 1-2 years. She has been seen in the past by gastroenterology in the office and here in the hospital for decompensated cirrhosis of the liver with ascites. Patient states she's been coughing and at times will cough up blood in her sputum. She denies any nausea or vomiting. Denies any blood in her stool or black stool. Her last EGD was in April 2016 for history of esophageal varices with obliterated distal varices noted at that time with no bleeding. She currently denies any diuretics. She was recently seen in the emergency department on 03/19/2022 and underwent a ultrasound with paracentesis with removal of 9 L of fluid. During this admission she underwent a chest CT angiogram to rule out a pulmonary embolism due to elevated d-dimer. Report stated no evidence of pulmonary embolism, left upper lobe airspace opacities correlate for pneumonia, pulmonary hypertension, hepatic cirrhosis with evidence of portal hypertension with splenomegaly and ascites as well as moderate ischemic changes. Gastoenterology was consulted for hemoptysis. Hemoglobin 13.2 on admission with a repeat today of 12.6. Patient does have pancytopenia likely related to underlying cirrhosis of the liver. Patient is currently very drowsy, seems somewhat of a poor historian. She was slightly difficult to wake up and only answering part of her questions. She is currently denying any abdominal pain, nausea or vomiting. States she is not vomiting up blood has only been coughing and has had some blood-tinged sputum. Still denies any blood in her stool or black stool. Admitting labs WBC 2.3 hemoglobin 13 hematocrit 38 platelet count 54,000 INR 1.2 d-dimer 1.5 sodium 140 potassium 3.7 BUN 17 creatinine 0.6 total bilirubin 1.8 AST 41 ALT 24 alkaline phosphatase 123 Review of Systems REVIEW OF SYSTEMS: CARDIOPULMONARY: No chest pain or shortness of breath. Patient states she has a productive cough with sputum that is blood-tinged. Gastrointestinal: No abdominal pain or epigastric pain. No nausea or vomiting. No hematemesis, coffee-ground emesis. No rectal bleeding, or melena. GENITOURINARY: No dysuria or hematuria. MUSCULOSKELETAL: Reports normal range of motion. SKIN: No rashes. No jaundice. ENDOCRINE: No chills, fevers. No excessive weight gain or loss. No polydipsia or polyuria. PSYCHIATRIC: Unremarkable. NEUROLOGY: Patient is extremely drowsy, poor historian, somewhat confused. ENT: Vision unremarkable. CONSTITUTIONAL: No recent weight loss. No fever, chills, night sweats. Past Medical History Past Medical History: Cancer, COPD, GERD/Reflux, GI Bleed, Hearing Disorder / Deafness, Liver Disease Additional Past Medical History / Comment(s): Hepatitis C, intractable ascities with multiple paracentesis, cirrhosis, peritonitis, pancytopenia, vertigo once; multiple upper GI bleeds, esophageal varicies/esophageal banding, left breast cancer had chemo last on 09-12-16-did not tolerate-completed only 3 cycles-then it was stopped/received radiation treatments/pt states she did not follow up and so did not have surgery lt ear deafness, R ear [place], occasional R leg edema. History of Any Multi-Drug Resistant Organisms: None Reported Past Surgical History: Adenoidectomy, Breast Surgery, Tonsillectomy Additional Past Surgical History / Comment(s): Multiple paracentesises, EGDs, esophageal banding, right chest mediport since removed, l breast bx., Past Anesthesia/Blood Transfusion Reactions: No Reported Reaction Additional Past Anesthesia/Blood Transfusion Reaction / Comm: blood transfusions- no reaction Smoking Status: Current every day smoker, Light tobacco smoker - Past Family History Mother Family Medical History: Cancer Additional Family Medical History / Comment(s): of lung ca at the age of 59yrs. She was a smoker. Father Family Medical History: Myocardial Infarction ([place]) Additional Family Medical History / Comment(s): from 2nd heart attack at the age of 59yrs. Medications and Allergies Home Medications Medication Instructions Recorded Confirmed Type HYDROmorphone [Dilaudid] 2 mg PO Q6H PRN 09/06/19 04/08/22 History Hydrocodone/Acetaminophen [[place] 1 tab PO Q6H PRN 09/06/19 04/08/22 History 10-325] Naloxone HCl [Narcan] 4 mg NASAL DIRECTED PRN 04/08/22 04/08/22 History Allergies Allergy/AdvReac Type Severity Reaction Status Date / Time No Known Allergies Allergy Verified 04/08/22 08:36 Physical Exam Vitals: Vital Signs Temp Pulse Pulse Resp BP BP Pulse Ox 04/09/22 06:01 116 H 04/09/22 05:56 112 H 96 04/09/22 03:32 18 04/09/22 02:00 98.2 F 92 18 134/83 90 L 04/08/22 20:00 98.5 F 98 20 113/71 98 04/08/22 17:57 98.7 F 95 16 112/66 91 L 04/08/22 12:54 89 16 123/71 96 04/08/22 08:14 98 18 163/94 98 Intake and Output 04/08/22 04/09/22 04/09/22 22:59 06:59 14:59 Intake Total 118 Balance 118 Intake: Oral 118 Other: Voiding Method Toilet # Voids 0 4 Weight 70.307 kg General appearance: The patient is alert, oriented to self and place, very drowsy, appears in no acute distress. HET: Head is normocephalic and atraumatic. Conjunctiva pink. Sclera anicteric. Neck: Supple without lymphadenopathy. Trachea midline. Heart: S1 S2. Regular rate and rhythm. Lungs: Clear to auscultation. Abdomen: Soft, nontender, nondistended with bowel sounds. No guarding or rigidity. Skin: No rashes. No jaundice. Extremities: Normal skin color and turgor. No pedal edema. Neurological: No focal deficits. Alert and oriented x2. Poor historian, very drowsy. Results CBC & Chem 7: 04/09/22 06:12 04/09/22 06:12 CT scan - chest: report reviewed (See HPI for details) Assessment and Plan (1) Hemoptysis Narrative/Plan: 56-year-old female with a history of cirrhosis of the liver from hepatitis C infection was not been following with gastroenterology for last 1-2 years. Patient does have a history of esophageal varices however came in with complaints of coughing with bloody sputum. CTA concerning for pneumonia. Patient is denying any kind of upper GI bleed. No nausea or vomiting, no hematemesis or blood in her stool or black stool noted. No abdominal pain nausea or vomiting. Patient has no clinical signs for upper GI bleed. Hem oglobin is stable. No plans on endoscopic evaluation at this time. Current Visit: Yes Status: Acute Code(s): R04.2 - HEMOPTYSIS SNOMED Code(s): 54369966 (2) Decompensation of cirrhosis of liver Narrative/Plan: Patient with long-standing history of cirrhosis of the liver related to hepatitis C infection. Patient has been followed with GI in 1-2 years duration. Patient is currently very drowsy somewhat confused ammonia level ordered an elevated at 57, lactulose 30 g 3 times a day ordered. Patient was recently seen in the emergency room and underwent paracentesis on 03/19/2022 with 9 L of fluid removed. Patient has not been on any diuretics, diuretics will be started this admission. Current Visit: Yes Status: Acute Code(s): K72.90 - HEPATIC FAILURE, UNSPECIFIED WITHOUT COMA; K74.60 - UNSPECIFIED CIRRHOSIS OF LIVER SNOMED Code(s): 075033495 (3) Ascites Current Visit: No Status: Acute Code(s): R18.8 - OTHER ASCITES SNOMED Code(s): 777823326 (4) Pancytopenia Narrative/Plan: Due to patient's underlying liver disease Current Visit: No Status: Chronic Priority: Medium Code(s): D61.818 - OTHER PANCYTOPENIA SNOMED Code(s): 138485655 Plan: 1. Continue symptomatic and supportive care 2. Continue with workup from pulmonology 3. Patient started on Lasix 40 mg, spironolactone 50 mg 4. Ammonia level ordered 5. Lactulose started 30 g 3 times a day 6. Ultrasound for paracentesis ordered 7. No plan for an endoscopic evaluation 8. Follow-up outpatient for surveillance of cirrhosis of the liver with gastroenterology Thank you for this consultation, we will continue to follow. Dr. Justice Botello I agree with the dictator's note, documented as a scribe by Erin Arentt.
[2022-04-09] MEDS: HYDROcodone/APAP 10-325MG 1 EACH TAB PO PRN (20:58)
--- NOTE | 2022-04-09 22:00 | PN ---
PROGRESS NOTE CHIEF COMPLAINT: Hemoptysis. HISTORY OF PRESENT ILLNESS: This lady has had difficult time. Apparently in the night, AA Team was called when she was coughing up blood. Presently, she is calm and denies any symptoms of fever, chills, shortness of breath, chest pain, throat pain, coughing up blood, etc. PHYSICAL EXAMINATION: VITAL SIGNS: Currently, her vital signs are normal. Blood pressure is 138/91. Pulse is 109. She is afebrile. GENERAL: She appeared to be chronically ill. CHEST: Clear. CARDIAC: Normal. IMPRESSION: 1. Hemoptysis, source unknown. 2. Doubt pneumonia. 3. Possible esophageal bleed. 4. Cirrhosis. 5. History of alcoholism. 6. History of hepatitis C. 7. History of breast cancer. PLAN: 1. She is being evaluated by GI. 2. Consult Pulmonology. MMODL / NESTORN: [id number] /
[2022-04-10] MEDS: HYDROmorphone 2 MG TAB PO PRN ×2 (01:41→08:45)
[2022-04-10] MEDS: HYDROmorphone 1 MG/ML 1 ML SYRINGE IVP PRN ×4 (04:06→21:45)
[2022-04-10] MEDS: HYDROcodone/APAP 10-325MG 1 EACH TAB PO PRN ×4 (04:12→23:40)
[2022-04-10] MEDS: FUROSEMIDE 40 MG TAB PO SCH (08:45)
[2022-04-10] MEDS: SPIRONOLACTONE 25 MG TAB PO SCH (08:45)
[2022-04-10] MEDS: AZITHROMYCIN 500 MG TAB PO SCH (08:46)
[2022-04-10] MEDS: LACTULOSE 20 GM/30 ML CUP PO SCH ×3 (08:47→21:43)
[2022-04-10] MEDS ORDERED: CALCIUM CARBONATE 500 MG CHEWABLE PO PRN (10:09)
[2022-04-10] MEDS ORDERED: MAGNESIUM OXIDE 400 MG TAB PO STA (10:10)
[2022-04-10] MEDS ORDERED: IOPAMIDOL CONTRAST (ORAL USE) VIAL PO PRN (10:14)
--- NOTE | 2022-04-10 10:52 | US ---
EXAMINATION TYPE: US abdomen limited DATE OF EXAM: 04/10/2022 COMPARISON: NONE CLINICAL HISTORY: 56 year-old female history of cirrhosis, evaluate for ascites/para. Ascites Technique: Multiple sonographic images of the 4 abdominal quadrants for assessment of ascites fluid. FINDINGS: Sports Physiologist notes: Patient has moderate amount of fluid visualized. IMPRESSION: Moderate abdominal ascites.
--- NOTE | 2022-04-10 11:11 | P.CNPUL ---
History of Present Illness Consult date: 04/10/22 Reason for consult: pneumonia, other (Hemoptysis) History of present illness: A she 56-year-old female patient, known history of chronic liver cirrhosis, previous history of GI bleed secondary to esophageal varices and portal hypertension. The patient is also known to have breast cancer left-sided with a previous breast surgery and systemic chemotherapy that she. Back in 2016. She also received radiation therapy to her breast. She has COPD also. We have seen her in the past especially in March 2021 for pneumonia and the patient was treated appropriately and discharged. The patient is coming in for emergency department yesterday with shortness of breath and coughing of blood. The patient had few episodes where she had a tickle in her throat and she felt some bloody sputum. No nausea. No vomiting. No hematemesis. No bright red blood per rectum. She denies having any melanotic stools. In the emergency, the patient was afebrile. The patient was slightly hypertensive. Pulse ox was 95% on room air oxygen. 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 The WBC count was at 2.3 with a hemoglobin of 13.2 and a platelet count of 54. BUN is at 17 with a creatinine of 0.6 and the sugars at 107. Her d-dimer was at 1.55. Coagulation profile was essentially within normal with a PT of 12 minor of 1.2 and a PTT of 27. The LFTs were normal. Further evaluation for viral agents were not done. The patient came into the emergency department initially on 04/08/2022, for now blood and this was essentially the same complaints. She was seen in emergency and she was given a CTA of the chest that showed evidence of limited airspace opacity in the left upper lobe. No evidence of any pulmonary embolism. There was signs of pulmonary hypertension and liver cirrhosis and portal hypertension with splenomegaly and ascites and background COPD. A repeat chest x-ray was done during this current admission from yesterday and the opacity in the mid lung had increased. Based on that, the patient was hospitalized. The patient is currently on IV Rocephin. Outpatient medications have been also resumed Review of Systems CONSTITUTIONAL: Denies any recent significant weight loss or weight gain. EYES: Denies change in vision. EARS, NOSE, MOUTH, THROAT: Denies headaches, denies sore throat. CARDIOVASCULAR: Denies chest pain, palpitations or syncopal episodes. RESPIRATORY: Denies shortness of breath, cough, and she has hemoptysis. GASTROINTESTINAL: Increasing abdominal pain and fullness GENITOURINARY: Denies hematuria, denies infections. MUSKULOSKELETAL: Denies pain, denies swelling. INTEGUMENTARY: Denies rash, denies eczema. NEUROLOGICAL: Denies recent memory loss, no recent seizure activity. PSYCHIATRIC: Denies anxiety, denies depression. HEMATOLOGIC/LYMPHATIC: Denies anemia, denies enlarged lymph nodes. Past Medical History Past Medical History: Cancer, COPD, GERD/Reflux, GI Bleed, Hearing Disorder / Deafness, Liver Disease Additional Past Medical History / Comment(s): Hepatitis C, intractable ascities with multiple paracentesis, cirrhosis, peritonitis, pancytopenia, vertigo once; multiple upper GI bleeds, esophageal varicies/esophageal banding, left breast cancer had chemo last on 09-12-16-did not tolerate-completed only 3 cycles-then it was stopped/received radiation treatments/pt states she did not follow up and so did not have surgery lt ear deafness, R ear [place], occasional R leg edema. History of Any Multi-Drug Resistant Organisms: None Reported Past Surgical History: Adenoidectomy, Breast Surgery, Tonsillectomy Additional Past Surgical History / Comment(s): Multiple paracentesises, EGDs, esophageal banding, right chest mediport since removed, l breast bx., Past Anesthesia/Blood Transfusion Reactions: No Reported Reaction Additional Past Anesthesia/Blood Transfusion Reaction / Comment(s): blood transfusions- no reaction Smoking Status: Current every day smoker, Light tobacco smoker - Past Family History Mother Family Medical History: Cancer Additional Family Medical History / Comment(s): of lung ca at the age of 59yrs. She was a smoker. Father Family Medical History: Myocardial Infarction ([place]) Additional Family Medical History / Comment(s): from 2nd heart attack at the age of 59yrs. Medications and Allergies Home Medications Medication Instructions Recorded Confirmed Type HYDROmorphone [Dilaudid] 2 mg PO Q6H PRN 09/06/19 04/08/22 History Hydrocodone/Acetaminophen [[place] 1 tab PO Q6H PRN 09/06/19 04/08/22 History 10-325] Naloxone HCl [Narcan] 4 mg NASAL DIRECTED PRN 04/08/22 04/08/22 History Allergies Allergy/AdvReac Type Severity Reaction Status Date / Time No Known Allergies Allergy Verified 04/08/22 08:36 Physical Exam Vitals: Vital Signs Temp Pulse Resp BP Pulse Ox 04/10/22 10:50 87 L 04/10/22 09:28 20 04/10/22 07:28 97.7 F 89 16 102/69 91 L 04/10/22 06:21 96 04/10/22 04:33 18 96 04/10/22 02:00 98.0 F 88 18 125/80 04/09/22 20:00 97.8 F 81 20 121/79 99 04/09/22 16:37 99 04/09/22 14:00 98.3 F 86 14 113/76 99 Intake and Output 04/09/22 04/10/22 04/10/22 22:59 06:59 14:59 Intake Total 480 240 Balance 480 240 Intake: Oral 480 240 Other: Voiding Method Toilet # Voids 2 1 # Bowel Movements 1 1 GENERAL EXAM: Alert, 56-year-old female patient who appears older than her stated age, on room air, comfortable in no apparent distress. HEAD: Normocephalic. EYES: Normal reaction of pupils, equal size. NOSE: Clear with pink turbinates. THROAT: No erythema or exudates. NECK: No masses, no JVD. CHEST: No chest wall deformity. LUNGS: Equal air entry with no crackles, wheeze, rhonchi or dullness. CVS: S1 and S2 normal with no audible murmur, regular rhythm. ABDOMEN: Distended, positive fluid wave, normal bowel sounds, no guarding or rigidity. SPINE: No scoliosis or deformity SKIN: No rashes CENTRAL NERVOUS SYSTEM: No focal deficits, tone is normal in all 4 extremities. EXTREMITIES: There is no peripheral edema. No clubbing, no cyanosis. Peripheral pulses are intact. Results - Laboratory Findings CBC and BMP: 04/09/22 06:12 04/09/22 06:12 PT/INR, D-dimer PT 12.0 sec (9.0-12.0) 04/08/22 06:21 INR 1.2 (<1.2) H 04/08/22 06:21 D-Dimer 1.55 mg/L FEU (<0.60) H 04/08/22 06:21 Abnormal lab findings: Abnormal Labs 04/08/22 04/08/22 04/08/22 06:21 06:21 06:21 WBC 2.3 L RBC 3.68 L MCV 105.0 H MCH 35.8 H Plt Count 54 L Neutrophils # (Manual) 1.04 L Lymphocytes # (Manual) 0.92 L INR 1.2 H D-Dimer 1.55 H Chloride 109 H Anion Gap BUN/Creatinine Ratio Glucose 107 H Calcium 8.1 L Total Bilirubin 1.8 H AST 41 H Ammonia Albumin 3.0 L 04/09/22 04/09/22 04/09/22 06:12 06:12 08:16 WBC 3.14 L RBC 3.65 L MCV 104.4 H MCH 34.5 H Plt Count 52 L Neutrophils # (Manual) Lymphocytes # (Manual) INR D-Dimer Chloride Anion Gap 8.90 L BUN/Creatinine Ratio 23.88 H Glucose 116 H Calcium 8.3 L Total Bilirubin AST Ammonia 57 H Albumin 04/10/22 06:24 WBC RBC MCV MCH Plt Count Neutrophils # (Manual) Lymphocytes # (Manual) INR D-Dimer Chloride Anion Gap BUN/Creatinine Ratio Glucose Calcium Total Bilirubin AST Ammonia 51 H Albumin - Diagnostic Findings Chest x-ray: image reviewed Assessment and Plan Plan: Left upper lobe pneumonia, immunocompromised because of liver cirrhosis Acute hemoptysis secondary to above. No major coagulopathy COPD with chronic and diffuse emphysematous changes bilaterally Liver cirrhosis History of portal hypertension and esophageal varices and previous history of GI bleed, currently inactive and stable Moderate ascites Secondary pulmonary hypertension related to chronic hypoxemia and COPD History of hepatitis C History of breast cancer History of smoking Plan Start the patient with a combination of Rocephin and Zithromax. Rocephin is being given 1 g every 24 hours and Zithromax 500 mg by mouth daily Check influenza screen, Covid 19 screen, and RSV screen Check pro calcitonin level Blood cultures Monitor hemoptysis No coagulopathy No anticoagulants being utilized for now
--- NOTE | 2022-04-10 13:24 | P.PN ---
Subjective Progress Note Date: 04/10/22 Principal diagnosis: hemoptysis This a pleasant 56-year-old female who presented to the emergency department, complaining of coughing and coughing of mucousy blood. Patient has a past medical history including cirrhosis of the liver from hepatitis C with ascites, pancytopenia, esophageal varices, and breast cancer. Patient has not followed up with gastroenterology for the past 1-2 years. She has been seen in the past by gastroenterology in the office and here in the hospital for decompensated cirrhosis of the liver with ascites. Patient states she's been coughing and at times will cough up blood in her sputum. She denies any nausea or vomiting. Denies any blood in her stool or black stool. Her last EGD was in April 2016 for history of esophageal varices with obliterated distal varices noted at that time with no bleeding. She currently denies any diuretics. She was recently seen in the emergency department on 03/19/2022 and underwent a ultrasound with paracentesis with removal of 9 L of fluid. During this admission she underwent a chest CT angiogram to rule out a pulmonary embolism due to elevated d-dimer. Report stated no evidence of pulmonary embolism, left upper lobe airspace opacities correlate for pneumonia, pulmonary hypertension, hepatic cirrhosis with evidence of portal hypertension with splenomegaly and ascites as well as moderate ischemic changes. Gastoenterology was consulted for hemoptysis. Hemoglobin 13.2 on admission with a repeat today of 12.6. Patient does have pancytopenia likely related to underlying cirrhosis of the liver. Patient is currently very drowsy, seems somewhat of a poor historian. She was slightly difficult to wake up and only answering part of her questions. She is currently denying any abdominal pain, nausea or vomiting. States she is not vomiting up blood has only been coughing and has had some blood-tinged sputum. Still denies any blood in her stool or black stool. Admitting labs WBC 2.3 hemoglobin 13 hematocrit 38 platelet count 54,000 INR 1.2 d-dimer 1.5 sodium 140 potassium 3.7 BUN 17 creatinine 0.6 total bilirubin 1.8 AST 41 ALT 24 alkaline phosphatase 123 04/10/2022: Patient seen and examined today in follow-up. She is up and ambulating in her room. She is without any complaints at this time. She is actually requesting to go home. States she had 2-3 loose bowel movements yes terday. Repeat ammonia level LI today. Patient is much more alert today than she was yesterday. States last paracentesis was a couple weeks ago. She comes into the emergency department when needed. States her previous one before that was quite some time in between. She has no nausea or vomiting. She is afebrile. States she is still coughing and sometimes will have some blood- tinged sputum. No nausea or vomiting no hematemesis. No blood in her stool or black stool reported. Hemoglobin stable today at 12.6, platelets 52,000 Objective - Vital Signs Vital signs: Vital Signs Temp 97.7 F 04/10/22 07:28 Pulse 89 04/10/22 07:28 Resp 20 04/10/22 09:28 BP 102/69 04/10/22 07:28 Pulse Ox 87 L 04/10/22 10:50 FiO2 Intake & Output 04/09/22 04/10/22 04/10/22 18:59 06:59 18:59 Intake Total 480 240 Balance 480 240 Intake: Oral 480 240 Other: Voiding Method Toilet # Voids 2 1 # Bowel Movements 1 1 - Exam General appearance: The patient is alert, oriented, appears in no acute distress. HET: Head is normocephalic and atraumatic. Conjunctiva pink. Sclera anicteric. Neck: Supple without lymphadenopathy. Abdomen: Soft, nontender, nondistended with bowel sounds. No guarding or rigidity. Extremities: Normal skin color and turgor. No pedal edema Skin: No rashes, no jaundice Neurological: No focal deficits. Alert and oriented. - Labs CBC & Chem 7: 04/09/22 06:12 04/09/22 06:12 Labs: Abnormal Lab Results - Last 24 Hours (Table) 04/10/22 Range/Units 06:24 Ammonia 51 H (<30) umol/L Microbiology - Last 24 Hours (Table) 04/08/22 08:45 Blood Culture - Preliminary Blood No Growth after 48 hours 04/08/22 09:00 Blood Culture - Preliminary Blood No Growth after 48 hours 04/09/22 03:18 Gram Stain - Preliminary Sputum Sputum Culture - Preliminary Assessment and Plan (1) Hemoptysis Narrative/Plan: 56-year-old female with a history of cirrhosis of the liver from hepatitis C infection was not been following with gastroenterology for last 1-2 years. Patient does have a history of esophageal varices however came in with complaints of coughing with bloody sputum. CTA concerning for pneumonia. Patient is denying any kind of upper GI bleed. No nausea or vomiting, no hematemesis or blood in her stool or black stool noted. No abdominal pain nausea or vomiting. Patient has no clinical signs for upper GI bleed. Hemo globin is stable. No plans on endoscopic evaluation at this time. She continues to deny any hematemesis. Continues with a productive cough with sputum blood-tinged. Hemoglobin stable at 12.6. Current Visit: Yes Status: Acute Code(s): R04.2 - HEMOPTYSIS SNOMED Code(s): 90517775 (2) Decompensation of cirrhosis of liver Narrative/Plan: Patient with long-standing history of cirrhosis of the liver related to hepatitis C infection. Patient has been followed with GI in 1-2 years duration. Patient is currently very drowsy somewhat confused ammonia level ordered an elevated at 57, lactulose 30 g 3 times a day ordered. Patient was recently seen in the emergency room and underwent paracentesis on 03/19/2022 with 9 L of fluid removed. Patient has not been on any diuretics, diuretics will be started this admission. Current Visit: Yes Status: Acute Code(s): K72.90 - HEPATIC FAILURE, UNSPECIFIED WITHOUT COMA; K74.60 - UNSPECIFIED CIRRHOSIS OF LIVER SNOMED Code(s): 129366792 (3) Ascites Narrative/Plan: Moderate amount of ascites on ultrasound. Paracentesis ordered. Current Visit: No Status: Acute Code(s): R18.8 - OTHER ASCITES SNOMED Code(s): 473590058 (4) Pancytopenia Narrative/Plan: Due to patient's underlying liver disease Current Visit: No Status: Chronic Priority: Medium Code(s): D61.818 - OTHER PANCYTOPENIA SNOMED Code(s): 563194993 Plan: 1. Continue symptomatic and supportive care 2. Continue with workup from pulmonology 3. Patient started on Lasix 40 mg, spironolactone 50 mg 4. Ammonia level daily 5. Lactulose started 30 g 3 times a day 6. Consult to radiology for paracentesis 7. No plan for an endoscopic evaluation 8. Follow-up outpatient for surveillance of cirrhosis of the liver with gastroenterology Thank you for this consultation, we will continue to follow. Dr. Justice Botello I agree with the dictator's note, documented as a scribe by Erin Arnett.
[2022-04-10] MEDS: ALPRAZolam 1 MG TAB PO PRN (14:08)
--- NOTE | 2022-04-10 15:57 | US ---
Ultrasound-guided paracentesis. DATE OF EXAM: 04/10/2022 CLINICAL HISTORY: Ascites The procedure was discussed with the patient. The risks, complications, benefits, and alternatives we re discussed and any questions were answered. Informed consent was obtained. The patient was placed s upine on the ultrasound table and prepped and draped in the usual sterile fashion. All elements of maximal barrier technique were utilized. Under ultrasound guidance, access into the right lower quadrant was obtained, via the paracentesis catheter system and direct ultrasound guidanc e. Approximately 5.4 liters of straw-colored fluid was removed. The patient was stable throughout the pr ocedure and remained stable upon discharge from Department of Radiology. IMPRESSION: Successful paracentesis under ultrasound guidance.
[2022-04-11] MEDS: HYDROmorphone 1 MG/ML 1 ML SYRINGE IVP PRN ×2 (03:14→21:11)
[2022-04-11] MEDS: FUROSEMIDE 40 MG TAB PO SCH (08:36)
[2022-04-11] MEDS: LACTULOSE 20 GM/30 ML CUP PO SCH ×3 (08:36→21:10)
[2022-04-11] MEDS: AZITHROMYCIN 500 MG TAB PO SCH (08:36)
[2022-04-11] MEDS: SPIRONOLACTONE 25 MG TAB PO SCH (08:36)
[2022-04-11] MEDS: HYDROcodone/APAP 10-325MG 1 EACH TAB PO PRN (12:26)
--- NOTE | 2022-04-11 12:41 | P.PN ---
Subjective Progress Note Date: 04/11/22 A she 56-year-old female patient, known history of chronic liver cirrhosis, previous history of GI bleed secondary to esophageal varices and portal hypertension. The patient is also known to have breast cancer left-sided with a previous breast surgery and systemic chemotherapy that she. Back in 2016. She also received radiation therapy to her breast. She has COPD also. We have seen her in the past especially in March 2021 for pneumonia and the patient was treated appropriately and discharged. The patient is coming in for emergency department yesterday with shortness of breath and coughing of blood. The patient had few episodes where she had a tickle in her throat and she felt some bloody sputum. No nausea. No vomiting. No hematemesis. No bright red blood per rectum. She denies having any melanotic stools. In the emergency, the patient was afebrile. The patient was slightly hypertensive. Pulse ox was 95% on room air oxygen. 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 The WBC count was at 2.3 with a hemoglobin of 13.2 and a platelet count of 54. BUN is at 17 with a creatinine of 0.6 and the sugars at 107. Her d-dimer was at 1.55. Coagulation profile was essentially within normal with a PT of 12 minor of 1.2 and a PTT of 27. The LFTs were normal. Further evaluation for viral agents were not done. The patient came into the emergency department initially on 04/08/2022, for now blood and this was essentially the same complaints. She was seen in emergency and she was given a CTA of the chest that showed evidence of limited airspace opacity in the left upper lobe. No evidence of any pulmonary embolism. There was signs of pulmonary hypertension and liver cirrhosis and portal hypertension with splenomegaly and ascites and background COPD. A repeat chest x-ray was done during this current admission from yesterday and the opacity in the mid lung had increased. Based on that, the patient was hospitalized. The patient is currently on IV Rocephin. Outpatient medications have been also resumed On 04/11/2022, the patient is not having any episodes of hemoptysis. She underwent a large-volume paracentesis yesterday regarding of ascites and the patient had a total of 5. liters of peritoneal fluid aspirated. Note that her influenza screen was negative. RSV was negative. Covid 19 was negative. She has limited patchy infiltrate of the left and she is currently on antibiotics. She is chronically immunosuppressed. She has chronic liver disease. Ammonia level is down and the patient is also on lactulose. She remains on Rocephin and Zithromax combination. She is currently on oxygen and she is at 3 L nasal cannula with a pulse ox of 90%. Objective - Vital Signs Vital signs: Vital Signs Temp 97.2 F L 04/11/22 07:00 Pulse 108 H 04/11/22 07:49 Resp 19 04/11/22 07:49 BP 98/65 04/11/22 07:00 Pulse Ox 90 L 04/11/22 10:46 FiO2 21 04/11/22 10:46 Intake & Output 04/10/22 04/11/22 04/11/22 18:59 06:59 18:59 Intake Total 490 717 Output Total 0 Balance 490 717 Intake: Oral 490 717 Output: Urine 0 Other: Voiding Method Toilet Toilet # Voids 3 1 1 # Bowel Movements 1 - Exam GENERAL EXAM: Alert, 56-year-old female patient who appears older than her stated age, on 3 L O2 nasal cannula comfortable in no apparent distress. HEAD: Normocephalic. EYES: Normal reaction of pupils, equal size. NOSE: Clear with pink turbinates. THROAT: No erythema or exudates. NECK: No masses, no JVD. CHEST: No chest wall deformity. LUNGS: Equal air entry with no crackles, wheeze, rhonchi or dullness. CVS: S1 and S2 normal with no audible murmur, regular rhythm. ABDOMEN: Distended, positive fluid wave, normal bowel sounds, no guarding or rigidity. SPINE: No scoliosis or deformity SKIN: No rashes CENTRAL NERVOUS SYSTEM: No focal deficits, tone is normal in all 4 extremities. EXTREMITIES: There is no peripheral edema. No clubbing, no cyanosis. Peripheral pulses are intact. - Labs CBC & Chem 7: 04/09/22 06:12 04/09/22 06:12 Labs: Abnormal Lab Results - Last 24 Hours (Table) 04/09/22 Range/Units 06:12 Hep C IgG Ab Reactive A (Nonreactive) Microbiology - Last 24 Hours (Table) 04/08/22 08:45 Blood Culture - Preliminary Blood No Growth after 72 hours 04/08/22 09:00 Blood Culture - Preliminary Blood No Growth after 72 hours 04/09/22 03:18 Gram Stain - Preliminary Sputum Sputum Culture - Preliminary Assessment and Plan Plan: Left upper lobe pneumonia, immunocompromised because of liver cirrhosis Acute hemoptysis secondary to above. No major coagulopathy, currently inactive and stable COPD with chronic and diffuse emphysematous changes bilaterally Liver cirrhosis History of portal hypertension and esophageal varices and previous history of GI bleed, currently inactive and stable Moderate ascites Secondary pulmonary hypertension related to chronic hypoxemia and COPD History of hepatitis C History of breast cancer History of smoking Plan Continue same treatment Large volume paracentesis was done continue of Rocephin and Zithromax. Rocephin is being given 1 g every 24 hours and Zithromax 500 mg by mouth daily Check influenza screen, Covid 19 screen, and RSV screen and all of the vitals were negative Check pro calcitonin level Blood cultures Monitor hemoptysis No coagulopathy No anticoagulants being utilized for now
--- NOTE | 2022-04-11 15:57 | P.PN ---
Subjective Progress Note Date: 04/11/22 Principal diagnosis: hemoptysis This a pleasant 56-year-old female who presented to the emergency department, complaining of coughing and coughing of mucousy blood. Patient has a past medical history including cirrhosis of the liver from hepatitis C with ascites, pancytopenia, esophageal varices, and breast cancer. Patient has not followed up with gastroenterology for the past 1-2 years. She has been seen in the past by gastroenterology in the office and here in the hospital for decompensated cirrhosis of the liver with ascites. Patient states she's been coughing and at times will cough up blood in her sputum. She denies any nausea or vomiting. Denies any blood in her stool or black stool. Her last EGD was in April 2016 for history of esophageal varices with obliterated distal varices noted at that time with no bleeding. She currently denies any diuretics. She was recently seen in the emergency department on 03/19/2022 and underwent a ultrasound with paracentesis with removal of 9 L of fluid. During this admission she underwent a chest CT angiogram to rule out a pulmonary embolism due to elevated d-dimer. Report stated no evidence of pulmonary embolism, left upper lobe airspace opacities correlate for pneumonia, pulmonary hypertension, hepatic cirrhosis with evidence of portal hypertension with splenomegaly and ascites as well as moderate ischemic changes. Gastoenterology was consulted for hemoptysis. Hemoglobin 13.2 on admission with a repeat today of 12.6. Patient does have pancytopenia likely related to underlying cirrhosis of the liver. Patient is currently very drowsy, seems somewhat of a poor historian. She was slightly difficult to wake up and only answering part of her questions. She is currently denying any abdominal pain, nausea or vomiting. States she is not vomiting up blood has only been coughing and has had some blood-tinged sputum. Still denies any blood in her stool or black stool. Admitting labs WBC 2.3 hemoglobin 13 hematocrit 38 platelet count 54,000 INR 1.2 d-dimer 1.5 sodium 140 potassium 3.7 BUN 17 creatinine 0.6 total bilirubin 1.8 AST 41 ALT 24 alkaline phosphatase 123 04/10/2022: Patient seen and examined today in follow-up. She is up and ambulating in her room. She is without any complaints at this time. She is actually requesting to go home. States she had 2-3 loose bowel movements yes terday. Repeat ammonia level 51 today. Patient is much more alert today than she was yesterday. States last paracentesis was a couple weeks ago. She comes into the emergency department when needed. States her previous one before that was quite some time in between. She has no nausea or vomiting. She is afebrile. States she is still coughing and sometimes will have some blood- tinged sputum. No nausea or vomiting no hematemesis. No blood in her stool or black stool reported. Hemoglobin stable today at 12.6, platelets 52,000 On 623: Patient seen and examined today as a follow-up. She is alert and oriented. She is ambulating in her room. Ammonia level down to 28. She's had several loose bowel movements throughout the night. No nausea or vomiting or abdominal pain. Yesterday she underwent paracentesis with 5.4 L of fluid removed. Patient states abdominal discomfort improved. Objective - Vital Signs Vital signs: Vital Signs Temp 94.7 F L 04/11/22 02:00 Pulse 96 04/11/22 02:00 Resp 15 04/11/22 02:00 BP 110/66 04/11/22 02:00 Pulse Ox 91 L 04/11/22 02:00 FiO2 Intake & Output 04/10/22 04/11/22 04/11/22 18:59 06:59 18:59 Intake Total 490 717 Output Total 0 Balance 490 717 Intake: Oral 490 717 Output: Urine 0 Other: Voiding Method Toilet # Voids 3 1 # Bowel Movements 1 - Exam General appearance: The patient is alert, oriented, appears in no acute distress. HET: Head is normocephalic and atraumatic. Conjunctiva pink. Sclera anicteric. Neck: Supple without lymphadenopathy. Abdomen: Soft, nontender, nondistended with bowel sounds. No guarding or rigidity. Extremities: Normal skin color and turgor. No pedal edema Skin: No rashes, no jaundice Neurological: No focal deficits. Alert and oriented. - Labs CBC & Chem 7: 04/09/22 06:12 04/09/22 06:12 Labs: Abnormal Lab Results - Last 24 Hours (Table) 04/09/22 Range/Units 06:12 Hep C IgG Ab Reactive A (Nonreactive) Microbiology - Last 24 Hours (Table) 04/09/22 03:18 Gram Stain - Preliminary Sputum Sputum Culture - Preliminary 04/08/22 08:45 Blood Culture - Preliminary Blood No Growth after 48 hours 04/08/22 09:00 Blood Culture - Preliminary Blood No Growth after 48 hours Assessment and Plan (1) Hemoptysis Narrative/Plan: 56-year-old female with a history of cirrhosis of the liver from hepatitis C infection was not been following with gastroenterology for last 1-2 years. Patient does have a history of esophageal varices however came in with complaints of coughing with bloody sputum. CTA concerning for pneumonia. Blanka ent is denying any kind of upper GI bleed. No nausea or vomiting, no hematemesis or blood in her stool or black stool noted. No abdominal pain nausea or vomiting. Patient has no clinical signs for upper GI bleed. Hemoglobin is stable. No plans on endoscopic evaluation at this time. She continues to deny any hematemesis. Continues with a productive cough with sputum blood-tinged. Hemoglobin stable at 12.6. Current Visit: Yes Status: Acute Code(s): R04.2 - HEMOPTYSIS SNOMED Code(s): 91443497 (2) Decompensation of cirrhosis of liver Narrative/Plan: Patient with long-standing history of cirrhosis of the liver related to hepatitis C infection. Patient has been followed with GI in 1-2 years duration. Patient is currently very drowsy somewhat confused ammonia level ordered an elevated at 57, lactulose 30 g 3 times a day ordered. Patient was recently seen in the emergency room and underwent paracentesis on 03/19/2022 with 9 L of fluid removed. Patient has not been on any diuretics, diuretics will be started this admission. Current Visit: Yes Status: Acute Code(s): K72.90 - HEPATIC FAILURE, UNSPECIFIED WITHOUT COMA; K74.60 - UNSPECIFIED CIRRHOSIS OF LIVER SNOMED Code(s): 215874583 (3) Ascites Narrative/Plan: Moderate amount of ascites on ultrasound. Patient is status post paracentesis with 5.4 L removed. Current Visit: No Status: Acute Code(s): R18.8 - OTHER ASCITES SNOMED Code(s): 976962007 (4) Pancytopenia Narrative/Plan: Due to patient's underlying liver disease Current Visit: No Status: Chronic Priority: Medium Code(s): D61.818 - OTHER PANCYTOPENIA SNOMED Code(s): 826016478 Plan: 1. Continue symptomatic and supportive care 2. Continue Lasix 40 mg, spironolactone 50 mg 3. Lactulose started 30 g 3 times a day, titrate to have 3-4 bowel movements d aily must get at least once a day. 4. No plan for an endoscopic evaluation 5. Follow-up outpatient for surveillance of cirrhosis of the liver and ascites with gastroenterology Thank you for this consultation, we will sign off at this time. Dr. Justice Botello I agree with the dictator's note, documented as a scribe by Erin Arnett.
[2022-04-12] MEDS: HYDROmorphone 1 MG/ML 1 ML SYRINGE IVP PRN ×3 (02:23→20:06)
[2022-04-12] MEDS: LACTULOSE 20 GM/30 ML CUP PO SCH ×3 (07:20→20:50)
[2022-04-12] MEDS: AZITHROMYCIN 500 MG TAB PO SCH (10:48)
[2022-04-12] MEDS: FUROSEMIDE 40 MG TAB PO SCH (10:57)
[2022-04-12] MEDS: SPIRONOLACTONE 25 MG TAB PO SCH (10:58)
--- NOTE | 2022-04-12 13:34 | P.PN ---
Subjective Progress Note Date: 04/12/22 A she 56-year-old female patient, known history of chronic liver cirrhosis, previous history of GI bleed secondary to esophageal varices and portal hypertension. The patient is also known to have breast cancer left-sided with a previous breast surgery and systemic chemotherapy that she. Back in 2016. She also received radiation therapy to her breast. She has COPD also. We have seen her in the past especially in March 2021 for pneumonia and the patient was treated appropriately and discharged. The patient is coming in for emergency department yesterday with shortness of breath and coughing of blood. The patient had few episodes where she had a tickle in her throat and she felt some bloody sputum. No nausea. No vomiting. No hematemesis. No bright red blood per rectum. She denies having any melanotic stools. In the emergency, the patient was afebrile. The patient was slightly hypertensive. Pulse ox was 95% on room air oxygen. 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 The WBC count was at 2.3 with a hemoglobin of 13.2 and a platelet count of 54. BUN is at 17 with a creatinine of 0.6 and the sugars at 107. Her d-dimer was at 1.55. Coagulation profile was essentially within normal with a PT of 12 minor of 1.2 and a PTT of 27. The LFTs were normal. Further evaluation for viral agents were not done. The patient came into the emergency department initially on 04/08/2022, for now blood and this was essentially the same complaints. She was seen in emergency and she was given a CTA of the chest that showed evidence of limited airspace opacity in the left upper lobe. No evidence of any pulmonary embolism. There was signs of pulmonary hypertension and liver cirrhosis and portal hypertension with splenomegaly and ascites and background COPD. A repeat chest x-ray was done during this current admission from yesterday and the opacity in the mid lung had increased. Based on that, the patient was hospitalized. The patient is currently on IV Rocephin. Outpatient medications have been also resumed On 04/11/2022, the patient is not having any episodes of hemoptysis. She underwent a large-volume paracentesis yesterday regarding of ascites and the patient had a total of 5. liters of peritoneal fluid aspirated. Note that her influenza screen was negative. RSV was negative. Covid 19 was negative. She has limited patchy infiltrate of the left and she is currently on antibiotics. She is chronically immunosuppressed. She has chronic liver disease. Ammonia level is down and the patient is also on lactulose. She remains on Rocephin and Zithromax combination. She is currently on oxygen and she is at 3 L nasal cannula with a pulse ox of 90%. On today's evaluation of 04/12/2022, the patient is doing essentially the same. No hemoptysis. No new complaints. She remains on antibiotics. Ammonia level is down to 20.She is currently on Zithromax. Pulse ox on room and is at 95%. The patient was placed on 3 L of oxygen by nasal cannula. Objective - Vital Signs Vital signs: Vital Signs Temp 97.8 F 04/12/22 07:22 Pulse 78 04/12/22 07:22 Resp 19 04/12/22 07:22 BP 112/58 04/12/22 08:18 Pulse Ox 95 04/12/22 07:22 FiO2 21 04/11/22 10:46 Intake & Output 04/11/22 04/12/22 04/12/22 18:59 06:59 18:59 Intake Total 711 Balance 711 Intake: Oral 711 Other: Voiding Method Toilet # Voids 1 2 # Bowel Movements 2 - Exam GENERAL EXAM: Alert, 56-year-old female patient who appears older than her stated age, on 3 L O2 nasal cannula comfortable in no apparent distress. HEAD: Normocephalic. EYES: Normal reaction of pupils, equal size. NOSE: Clear with pink turbinates. THROAT: No erythema or exudates. NECK: No masses, no JVD. CHEST: No chest wall deformity. LUNGS: Equal air entry with no crackles, wheeze, rhonchi or dullness. CVS: S1 and S2 normal with no audible murmur, regular rhythm. ABDOMEN: Distended, positive fluid wave, normal bowel sounds, no guarding or rigidity. SPINE: No scoliosis or deformity SKIN: No rashes CENTRAL NERVOUS SYSTEM: No focal deficits, tone is normal in all 4 extremities. EXTREMITIES: There is no peripheral edema. No clubbing, no cyanosis. Peripheral pulses are intact. - Labs CBC & Chem 7: 04/09/22 06:12 04/09/22 06:12 Labs: Microbiology - Last 24 Hours (Table) 04/08/22 08:45 Blood Culture - Preliminary Blood No Growth after 96 hours 04/08/22 09:00 Blood Culture - Preliminary Blood No Growth after 96 hours 04/09/22 03:18 Gram Stain - Final Sputum Sputum Culture - Final Assessment and Plan Plan: Left upper lobe pneumonia, immunocompromised because of liver cirrhosis Acute hemoptysis secondary to above. No major coagulopathy, currently inactive and stable COPD with chronic and diffuse emphysematous changes bilaterally Liver cirrhosis History of portal hypertension and esophageal varices and previous history of GI bleed, currently inactive and stable Moderate ascites Secondary pulmonary hypertension related to chronic hypoxemia and COPD History of hepatitis C History of breast cancer History of smoking Plan Continue same treatment Large volume paracentesis was done continue Zithromax Check influenza screen, Covid 19 screen, and RSV screen and all of the vitals were negative Blood cultures Monitor hemoptysis, currently inactive and stable No coagulopathy No anticoagulants being utilized for now
[2022-04-12] MEDS ORDERED: KETOROLAC 15 MG/ML 1 ML VIAL IVP STA (14:54)
--- NOTE | 2022-04-13 01:03 | P.PN ---
Subjective Progress Note Date: 04/12/22 Patient is a 56-year-old female with a known history of liver cirrhosis, history of multiple paracentesis, COPD, hearing disorder/deafness, hepatitis C, history of left breast cancer had chemotherapy completed only 3 cycles in 2017 and currently everyday smoker presents ER with complaints of worsening shortness of breath and coughing up blood. Chest x-ray showed opacity in the mid lung which is increasing. 04/12/2022 Patient is currently sitting on the side of the bed. Awake alert and oriented. Complains of right lower chest pain worsens with deep breathing. Currently on room air. Nausea or vomiting. Patient has been afebrile. Currently being continued on antibiotics [place] azithromycin. Laboratory data reviewed. Ammonia level came down to 28. Pulmonary is on board. Current medications reviewed. Objective - Vital Signs Vital signs: Vital Signs Temp 97.8 F 04/12/22 07:22 Pulse 78 04/12/22 07:22 Resp 19 04/12/22 07:22 BP 112/58 04/12/22 08:18 Pulse Ox 95 04/12/22 07:22 FiO2 21 04/11/22 10:46 Intake & Output 04/11/22 04/12/22 04/12/22 18:59 06:59 18:59 Intake Total 711 Balance 711 Intake: Oral 711 Other: Voiding Method Toilet # Voids 1 2 # Bowel Movements 2 - Exam PHYSICAL EXAMINATION: Patient is lying in the bed comfortably, no acute distress, awake alert and oriented.. HEENT: Normocephalic. Neck is supple. Pupils reactive. Nostrils clear. Oral cavity is moist. Neck reveals no JVD, carotid bruits, or thyromegaly. CHEST EXAMINATION: Trachea is central. Symmetrical expansion. Bibasilar dimi nished sounds. No wheezing or rhonchi. Nonlabored breathing.. CARDIAC: Normal S1, S2 with no gallops. No murmurs ABDOMEN: Soft. Distended with ascites. No guarding or rigidity. Bowel sounds present. Nontender. No organomegaly. No abdominal bruits. Extremities: reveal no edema. No clubbing or cyanosis Neurologically awake, alert, oriented x3 with well-coordinated movements. No focal deficits noted Skin: No rash or skin lesions. Psychiatric: Coperative. Nonsuicidal, Musculoskeletal: No joint swelling or deformity. Normal range of motion. - Labs CBC & Chem 7: 04/09/22 06:12 04/09/22 06:12 Labs: Microbiology - Last 24 Hours (Table) 04/08/22 08:45 Blood Culture - Preliminary Blood No Growth after 96 hours 04/08/22 09:00 Blood Culture - Preliminary Blood No Growth after 96 hours 04/09/22 03:18 Gram Stain - Final Sputum Sputum Culture - Final Assessment and Plan Assessment: Left upper lobe pneumonia Acute hemoptysis. Hemoglobin is stable. No further episodes. COPD Hepatitis C Hepatic cirrhosis with evidence of portal hypertension with splenomegaly and ascites Secondary pulmonary hypertension History of breast cancer completed only 3 cycles of chemotherapy History of addiction DVT prophylaxis with heparin subcu Plan: Patient with is being continued on antibiotics,. On azithromycin. Continue with oxygen supplementation and titrate down to room air. Continued pain management with [place] and 1 dose of Toradol was given. Continue with lactulose. Ammonia level came down to 20. Follow-up closely and pulmonary is on board. Prognosis guarded with multiple medical problems and comorbid conditions. Time with Patient: Greater than 30
[2022-04-13] MEDS: HYDROmorphone 1 MG/ML 1 ML SYRINGE IVP PRN ×3 (01:12→09:29)
[2022-04-13] MEDS: HYDROcodone/APAP 10-325MG 1 EACH TAB PO PRN (03:18)
[2022-04-13 08:05] VITALS: BP 99/63; PULSE 89; RESP 18; TEMP 97.7
[2022-04-13] MEDS: SPIRONOLACTONE 25 MG TAB PO SCH (08:27)
[2022-04-13] MEDS: LACTULOSE 20 GM/30 ML CUP PO SCH (08:27)
[2022-04-13] MEDS: FUROSEMIDE 40 MG TAB PO SCH (08:27)
[2022-04-13] MEDS: AZITHROMYCIN 500 MG TAB PO SCH (08:32)
[2022-04-13] MEDS ORDERED: HEPARIN SODIUM,PORCINE/PF 5,000 UNIT/0.5 ML SYRINGE SQ SCH (09:00)
--- NOTE | 2022-04-13 09:07 | XR ---
EXAMINATION TYPE: XR chest 1V DATE OF EXAM: 04/13/2022 8:58 AM COMPARISON: Chest radiographs from 04/09/2022, CT chest 04/08/2022 TECHNIQUE: XR chest 1V Portable AP radiograph of the chest. CLINICAL INDICATION:Female, 56 years old with history of increase pain; FINDINGS: Lungs/Pleura: Similar left airspace opacities. No evidence of pneumothorax or pleural effusion. Pulmonary vascularity: Unremarkable. Heart/mediastinum: Cardiomediastinal silhouette is unremarkable. Musculoskeletal: No acute osseous pathology. IMPRESSION: Similar airspace opacities.
[2022-04-13 10:21] LABS: African American GFR (CKD) 101.4 (60.0-200.0); Anion Gap 5.9 mmol/L (10.00-18.00); BUN/Creat Ratio 28.67 Ratio (12.00-20.00); Blood Urea Nitrogen 21.7 mg/dL (9.0-27.0); Calcium 7.9 mg/dL (8.7-10.3); Carbon Dioxide 24.7 mmol/L (20.0-27.5); Non-African American GFR(CKD) 87.5 (60.0-200.0); Potassium 4.8 mmol/L (3.5-5.5)
[2022-04-13 11:35] LABS: Basophils # (A) 0.01 X 10*3/uL (0.00-0.10); Basophils % (A) 0.3 %; Elliptocytes 2+; Eosinophils % (A) 3.1 %; HCT 31.7 % (37.2-46.3); HGB 10.5 g/dL (12.0-15.0); Immature Grans, Automated 0.3 %; Immature Platelet Fraction 10.6 % (1.1-6.1); Lymphocytes % (A) 31.3 %; MCH 34.8 pg (27.0-32.0); MCHC 33.1 g/dL (32.0-37.0); Macrocytosis (M) 2+; Mean Platelet Volume 13.5 fL (9.5-12.2); Monocytes # (A) 0.47 X 10*3/uL (0.20-1.00); Monocytes % (A) 14.7 %; NRBC Per 100 WBC 0 /100 WBCS (0.0-0.0); Neutrophils % (A) 50.3 %; Platelet Count 39 X 10*3/uL (140-440); RBC 3.02 X 10*6/uL (4.10-5.20); RDW 13.9 % (11.5-14.5); WBC 3.19 X 10*3/uL (4.50-10.00)
--- NOTE | 2022-04-14 23:49 | DS ---
DISCHARGE SUMMARY CHIEF COMPLAINT: Shortness of breath and hemoptysis. HISTORY OF PRESENT ILLNESS AND PHYSICAL EXAMINATION: Details of this lady's history and physical can be found in the initial workup. LABORATORY STUDIES: While she was in the hospital, she had laboratory studies, details of which can be found in the laboratory section of her chart. COURSE IN THE HOSPITAL: After admission, she was placed on bedrest, started on intravenous fluids. It was felt that she may have had a pneumonitis, but this was not clear. She never coughed up any purulent sputum nor that she had a fever. Because of her hemoptysis, she was seen by Pulmonology. She was also seen by GI. Source of bleeding was not determined, but stopped. It did not seem that this is likely to be from esophageal varices. It was felt she could be discharged on the and she will go home on usual activity, diet, and medication and she will be followed up in several days. FINAL DIAGNOSES: 1. Hemoptysis, source unknown. 2. Chronic obstructive pulmonary disease. 3. Cirrhosis. 4. Intractable ascites. 5. Hepatitis C. OPERATIONS: Paracentesis. CONSULTATIONS: GI and Pulmonology. MMODL / IJN: [id number] /
--- NOTE | 2022-04-15 00:34 | PN ---
PROGRESS NOTE DATE OF SERVICE: 04/11/2022 CHIEF COMPLAINT: Hemoptysis. HISTORY OF PRESENT ILLNESS: This lady has not had any fever, chills, shortness of breath, etc. She is still coughing up small amounts of blood, but studies so far not indicated any definite evidence of esophageal bleed, pneumonitis, pulmonary embolism, etc. PHYSICAL EXAMINATION: GENERAL: She remains chronically ill in appearance, which is her normal . CHEST: Demonstrates decreased breath sounds, but there are no rales or rhonchi. CARDIAC: Normal. ABDOMEN: Distended. IMPRESSION: 1. Hemoptysis. 2. Chronic obstructive pulmonary disease. 3. Cirrhosis with ascites. PLAN: Continue workup. She is being evaluated by Gastroenterology, and we will have Pulmonology evaluate her as well. MMODL / IJN: [id number] /
--- NOTE | 2022-04-15 02:31 | PN ---
PROGRESS NOTE DATE OF SERVICE: 04/10/2022 CHIEF COMPLAINT: Hemoptysis and cirrhosis with ascites. HISTORY OF PRESENT ILLNESS: This lady is now complaining of a lot of abdominal pain. This is not unusual for her, particularly when her ascites nearly fills the abdomen. PHYSICAL EXAMINATION: CHEST: Demonstrates decreased breath sounds. There were no rales. CARDIAC: Normal. ABDOMEN: Distended and slightly tender. VITAL SIGNS: Normal. IMPRESSION: 1. Hemoptysis. 2. Chronic obstructive pulmonary disease. 3. Cirrhosis. 4. Abdominal pain. 5. Ascites. PLAN: CT of the abdomen will be ordered. In the meantime, she has had no further hemoptysis. MMODL / IJN: [id number] /
== END 2022-04-13 11:27 | disposition home or self-care (01) | DRG 432 ==
LOC: EC 06:17 → 4SSUR 08:20
PROVIDERS: ADMIT Family Medicine; ATTEND Family Medicine
PROC: 0W9G3ZZ Drainage of Peritoneal Cavity, Percutaneous Approach (ICD-10-PCS; principal; 2022-04-10)
DX: K74.60 Unspecified cirrhosis of liver (principal); J18.0 Bronchopneumonia, unspecified organism; D61.818 Other pancytopenia; R04.2 Hemoptysis; R18.8 Other ascites; D84.9 Immunodeficiency, unspecified; I85.10 Secondary esophageal varices without bleeding; K76.6 Portal hypertension; B19.20 Unspecified viral hepatitis C without hepatic coma; C50.912 Malignant neoplasm of unspecified site of left female breast; Z92.21 Personal history of antineoplastic chemotherapy; Z92.3 Personal history of irradiation; F17.210 Nicotine dependence, cigarettes, uncomplicated; H91.93 Unspecified hearing loss, bilateral; I27.29 Other secondary pulmonary hypertension; J44.9 Chronic obstructive pulmonary disease, unspecified; K72.90 Hepatic failure, unspecified without coma; Z87.19 Personal history of other diseases of the digestive system; Z20.822 Contact with and (suspected) exposure to COVID-19; Z80.1 Family history of malignant neoplasm of trachea, bronchus and lung; Z82.49 Family history of ischemic heart disease and other diseases of the circulatory system; Z91.199 Patient's noncompliance with other medical treatment and regimen due to unspecified reason; Z28.310 Unvaccinated for COVID-19; Z79.891 Long term (current) use of opiate analgesic; Z79.899 Other long term (current) drug therapy; K21.9 Gastro-esophageal reflux disease without esophagitis
CPT/HCPCS: 36415; 49083; 71045; 71046; 71275; 76705; 80048; 80053; 82140; 83735; 84484; 85025; 85027; 85379; 85610; 85730; 86803; 87040; 87070; 87205; 87636; 88108; 88305; 88341; 88342; 93005; 94640; 94760; 96365; 96367; 96375; 99285

== ENCOUNTER 2022-07-03 16:16 | Inpatient (IN) | payer MEDICARE, OTHER ==
--- NOTE | 2022-07-03 16:56 | ED ---
Abdominal Pain HPI - General Chief Complaint: Abdominal Pain Stated Complaint: stomach pain Time Seen by Provider: 07/03/22 16:24 Source: patient Mode of arrival: ambulatory Limitations: no limitations - History of Present Illness Initial Comments: This patient is a 56-year-old woman with history of chronic ascites/abdominal pain. She states that over the past few weeks the abdominal distention has increased and it is causing pressure type pain. She has not noted fever or chills. No change in urination or bowel movements. MD Complaint: abdominal pain -: week(s) Location: diffuse Radiation: none Migration to: no migration Quality: aching Consistency: constant Improves With: nothing Worsens With: nothing Associated Symptoms: denies other symptoms - Related Data Home Medications Medication Instructions Recorded Confirmed HYDROmorphone [Dilaudid] 2 mg PO Q6H PRN 09/06/19 07/03/22 Hydrocodone/Acetaminophen [[place] 1 tab PO Q6H PRN 09/06/19 07/03/22 10-325] Naloxone HCl [Narcan] 4 mg NASAL DIRECTED PRN 04/08/22 07/03/22 Spironolactone [Aldactone] 25 mg PO DAILY 07/03/22 07/03/22 Previous Rx's Medication Instructions Recorded Furosemide [Lasix] 40 mg PO DAILY #30 tab 04/11/22 Allergies Allergy/AdvReac Type Severity Reaction Status Date / Time No Known Allergies Allergy Verified 07/03/22 20:41 Review of Systems ROS Statement: Those systems with pertinent positive or pertinent negative responses have been documented in the HPI. ROS Other: All systems not noted in ROS Statement are negative. Constitutional: Denies: fever, chills Respiratory: Denies: cough, dyspnea Cardiovascular: Reports: edema. Denies: chest pain, palpitations, syncope Gastrointestinal: Reports: as per HPI, abdominal pain. Denies: nausea, vomiting, diarrhea, constipation, melena, hematochezia Genitourinary: Denies: dysuria, hematuria Musculoskeletal: Denies: back pain Neurological: Denies: headache Psychiatric: Reports: anxiety Past Medical History Past Medical History: Cancer, COPD, GERD/Reflux, GI Bleed, Hearing Disorder / Deafness, Liver Disease Additional Past Medical History / Comment(s): Hepatitis C, intractable ascities with multiple paracentesis, cirrhosis, peritonitis, pancytopenia, vertigo once; multiple upper GI bleeds, esophageal varicies/esophageal banding, left breast cancer had chemo last on 09-12-16-did not tolerate-completed only 3 cycles-then it was stopped/received radiation treatments/pt states she did not follow up and so did not have surgery lt ear deafness, R ear [place], occasional R leg edema. History of Any Multi-Drug Resistant Organisms: None Reported Past Surgical History: Adenoidectomy, Breast Surgery, Tonsillectomy Additional Past Surgical History / Comment(s): Multiple paracentesises, EGDs, esophageal banding, right chest mediport since removed, l breast bx., Past Anesthesia/Blood Transfusion Reactions: No Reported Reaction Additional Past Anesthesia/Blood Transfusion Reaction / Comment(s): blood transfusions- no reaction Past Psychological History: Anxiety Smoking Status: Current some day smoker, Light tobacco smoker Past Alcohol Use History: None Reported Past Drug Use History: None Reported - Past Family History Mother Family Medical History: Cancer Additional Family Medical History / Comment(s): of lung ca at the age of 59yrs. She was a smoker. Father Family Medical History: Myocardial Infarction ([place]) Additional Family Medical History / Comment(s): from 2nd heart attack at the age of 59yrs. General Exam Limitations: no limitations General appearance: alert, in no apparent distress Head exam: Present: atraumatic, normocephalic Eye exam: Present: normal appearance. Absent: scleral icterus, conjunctival injection Neck exam: Present: normal inspection Respiratory exam: Present: normal lung sounds bilaterally. Absent: respiratory distress, wheezes, rales, rhonchi, stridor Cardiovascular Exam: Present: regular rate, normal rhythm, normal heart sounds. Absent: systolic murmur, diastolic murmur, rubs, gallop GI/Abdominal exam: Present: soft, distended, other (Moderate ascites.). Absent: tenderness, guarding, rebound, rigid, mass, pulsatile mass Extremities exam: Present: normal inspection, normal capillary refill, pedal edema. Absent: calf tenderness Back exam: Present: normal inspection. Absent: CVA tenderness (R), CVA tenderness (L) Neurological exam: Present: alert Skin exam: Present: warm, dry, intact, pallor. Absent: rash Course Vital Signs 07/03/22 07/03/22 07/04/22 16:32 21:33 00:26 Temperature 98.2 F Pulse Rate 95 106 H Pulse Rate [ Pulse Oximetery ] Respiratory 28 H 20 Rate Blood Pressure 137/67 132/81 105/60 O2 Sat by Pulse 95 96 Oximetry 07/04/22 07/04/22 07/04/22 00:30 00:45 01:22 Temperature Pulse Rate 78 109 H 114 H Pulse Rate [ Pulse Oximetery ] Respiratory 18 20 19 Rate Blood Pressure 105/60 105/60 100/77 O2 Sat by Pulse 94 L 93 L Oximetry 07/04/22 07/04/22 07/04/22 06:25 07:02 07:21 Temperature 98.0 F Pulse Rate 111 H 109 H 114 H Pulse Rate [ Pulse Oximetery ] Respiratory 18 18 20 Rate Blood Pressure 81/55 82/55 93/57 O2 Sat by Pulse 88 L 92 L 92 L Oximetry 07/04/22 07/04/22 07/04/22 08:00 08:18 08:36 Temperature 98.0 F Pulse Rate 112 H 114 H 112 H Pulse Rate [ Pulse Oximetery ] Respiratory 16 18 18 Rate Blood Pressure 90/51 78/56 90/53 O2 Sat by Pulse 94 L 95 96 Oximetry 07/04/22 07/04/22 07/04/22 08:58 10:58 11:43 Temperature Pulse Rate 115 H 98 99 Pulse Rate [ Pulse Oximetery ] Respiratory 18 18 18 Rate Blood Pressure 86/50 76/42 77/47 O2 Sat by Pulse 94 L 99 96 Oximetry 07/04/22 07/04/22 07/04/22 12:46 14:00 15:15 Temperature Pulse Rate 100 98 104 H Pulse Rate [ Pulse Oximetery ] Respiratory 18 18 18 Rate Blood Pressure 97/48 90/51 82/42 O2 Sat by Pulse 94 L 94 L 98 Oximetry 07/04/22 07/04/22 07/04/22 16:00 17:00 17:37 Temperature Pulse Rate 99 97 98 Pulse Rate [ Pulse Oximetery ] Respiratory 18 18 18 Rate Blood Pressure 88/53 85/52 98/54 O2 Sat by Pulse 97 97 97 Oximetry 07/04/22 07/04/22 19:20 20:00 Temperature 97.4 F L Pulse Rate 97 Pulse Rate [ 96 Pulse Oximetery ] Respiratory 18 16 Rate Blood Pressure 92/51 O2 Sat by Pulse 97 Oximetry Medical Decision Making - Medical Decision Making Patient's 56-year-old woman with long-standing history of ascites. She states that she is having associated abdominal pain, worse than is usual. It has been approximately 3 months since she had paracentesis. On exam no definite signs of spontaneous peritonitis. Will admit patient to have paracentesis for diagnostic and treatment purpose. Was pt. sent in by a medical professional or institution (, PA, STEELER, urgent care, hospital, or long-term...) When possible be specific @ -[No] Did you speak to anyone other than the patient for history (EMS, parent, family, police, friend...)? What history was obtained from this source @ -[No] Did you review nursing and triage notes (agree or disagree)? Why? @ -[I reviewed and agree with nursing and triage notes] Were old charts reviewed (outside hosp., previous admission, EMS record, old EKG, old radiological studies, urgent care reports/EKG's, long-term records)? Report findings @ -[old charts were reviewed] Differential Diagnosis (chest pain, altered mental status, abdominal pain women, abdominal pain men, vaginal bleeding, weakness, fever, dyspnea, syncope, headache, dizziness, GI bleed, back pain, seizure, CVA, palpatations, mental health, musculoskeletal)? @ -Differential Abdominal Pain Women: Appendicitis, Cholecystitis, diverticulosis, ischemic bowel, pancreatitis, hepatitis, UTI, gastroenteritis, AAA, incarcerated hernia, bowel obstruction, constipation, inflammatory bowel, hepatitis, peptic ulcer disease, splenic infarction, perforated viscus, vulvitis, ovarian torsion, PID, kidney stone, placenta abruption, this is not meant to be an all-inclusive list EKG interpreted by me (3pts min.). @ -[As above] X-rays interpreted by me (1pt min.). @ -[None done] CT interpreted by me (1pt min.). @ -[None done] U/S interpreted by me (1pt. min.). @ -[None done] What testing was considered but not performed or refused? (CT, X-rays, U/S, labs)? Why? @ -[None] What meds were considered but not given or refused? Why? @ -[None] Did you discuss the management of the patient with other professionals (professionals i.e. , PA, STEELER, lab, RT, psych nurse, social studies department chair, yard jacker, teacher, chief risk officer, director case management)? Give summary @ -[Admitting physician Was smoking cessation discussed for >3mins.? @ -[No] Was critical care preformed (if so, how long)? @ -[No] Were there social determinants of health that impacted care today? How? (Homelessness, low income, unemployed, alcoholism, drug addiction, transportation, low edu. Level, literacy, decrease access to med. care, [facility], r ehab)? @ -[No] Was there de-escalation of care discussed even if they declined (Discuss DNR or withdrawal of care, Hospice)? DNR status @ -[No] What co-morbidities impacted this encounter? (DM, HTN, Smoking, COPD, CAD, Cance r, CVA, ARF, Chemo, Hep., AIDS, mental health diagnosis, sleep apnea, morbid obesity)? @ -[None] Was patient admitted / discharged? Hospital course, mention meds given and route, prescriptions, significant lab abnormalities, going to OR and other pertinent info. @ -[The patient is admitted to have paracentesis for further diagnostic testing and therapy Undiagnosed new problem with uncertain prognosis? @ -[No] Drug Therapy requiring intensive monitoring for toxicity (Heparin, Nitro, Insulin, Cardizem)? @ -[No] Were any procedures done? @ -[No] Diagnosis/symptom? @ -[Acute on chronic ascites Acute on chronic abdominal pain Acute, or Chronic, or Acute on Chronic? @ -[default] Uncomplicated (without systemic symptoms) or Complicated (systemic symptoms)? @ -[default] Side effects of treatment? @ -[No] Exacerbation, Progression, or Severe Exacerbation? @ -[No] Poses a threat to life or bodily function? How? (Chest pain, [place], [place], pneumonia, PE, COPD, DKA, ARF, appy, cholecystitis, CVA, Diverticulitis, Homicidal, Suicidal, threat to staff... and all critical care pts) @ -[No] - Lab Data Result diagrams: 07/08/22 14:30 07/09/22 06:59 Lab Results 07/03/22 07/03/22 07/03/22 Range/Units 18:05 19:39 19:39 WBC 2.2 L (3.8-10.6) k/uL RBC 3.98 (3.80-5.40) m/uL Hgb 14.1 (11.4-16.0) gm/dL Hct 41.7 (34.0-46.0) % MCV 104.6 H (80.0-100.0) fL MCH 35.4 H (25.0-35.0) pg MCHC 33.8 (31.0-37.0) g/dL RDW 14.2 (11.5-15.5) % Plt Count 39 L (150-450) k/uL MPV 9.5 Neutrophils % 78 % Lymphocytes % 16 % Monocytes % 3 % Eosinophils % 0 % Basophils % 0 % Neutrophils # 1.7 (1.3-7.7) k/uL Lymphocytes # 0.4 L (1.0-4.8) k/uL Monocytes # 0.1 (0-1.0) k/uL Eosinophils # 0.0 (0-0.7) k/uL Basophils # 0.0 (0-0.2) k/uL Manual Slide Review Performed Macrocytosis Moderate Sodium 138 (137-145) mmol/L Potassium 3.9 (3.5-5.1) mmol/L Chloride 109 H (98-107) mmol/L Carbon Dioxide 25 (22-30) mmol/L Anion Gap 4 mmol/L BUN 18 H (7-17) mg/dL Creatinine 0.62 (0.52-1.04) mg/dL Est GFR (CKD-EPI)AfAm >90 (>60 ml/min/1.73 sqM) Est GFR (CKD-EPI)NonAf >90 (>60 ml/min/1.73 sqM) Glucose 110 H (74-99) mg/dL Lactic Ac Sepsis Rflx Plasma Lactic Acid Darrius 3.2 H* (0.7-2.0) mmol/L Calcium 8.1 L (8.4-10.2) mg/dL Total Bilirubin 3.8 H (0.2-1.3) mg/dL AST 32 (14-36) U/L ALT 21 (4-34) U/L Alkaline Phosphatase 64 (38-126) U/L C-Reactive Protein 3.0 H (<1.0) mg/dL Total Protein 6.5 (6.3-8.2) g/dL Albumin 2.7 L (3.5-5.0) g/dL Amylase 32 (30-110) U/L Lipase 45 (23-300) U/L Urine Color Urine Appearance (Clear) Urine pH (5.0-8.0) Ur Specific [place] (1.001-1.035) Urine Protein (Negative) Urine Glucose (UA) (Negative) Urine Ketones (Negative) Urine Blood (Negative) Urine Nitrite (Negative) Urine Bilirubin (Negative) Urine Urobilinogen (<2.0) mg/dL Ur Leukocyte Esterase (Negative) Urine RBC (0-5) /hpf Urine WBC (0-5) /hpf Ur Squamous Epith Cells (0-4) /hpf Urine Bacteria (None) /hpf Hyaline Casts (0-2) /lpf Urine Mucus (None) /hpf 07/03/22 07/03/22 Range/Units 20:32 20:50 WBC (3.8-10.6) k/uL RBC (3.80-5.40) m/uL Hgb (11.4-16.0) gm/dL Hct (34.0-46.0) % MCV (80.0-100.0) fL MCH (25.0-35.0) pg MCHC (31.0-37.0) g/dL RDW (11.5-15.5) % Plt Count (150-450) k/uL MPV Neutrophils % % Lymphocytes % % Monocytes % % Eosinophils % % Basophils % % Neutrophils # (1.3-7.7) k/uL Lymphocytes # (1.0-4.8) k/uL Monocytes # (0-1.0) k/uL Eosinophils # (0-0.7) k/uL Basophils # (0-0.2) k/uL Manual Slide Review Macrocytosis Sodium (137-145) mmol/L Potassium (3.5-5.1) mmol/L Chloride (98-107) mmol/L Carbon Dioxide (22-30) mmol/L Anion Gap mmol/L BUN (7-17) mg/dL Creatinine (0.52-1.04) mg/dL Est GFR (CKD-EPI)AfAm (>60 ml/min/1.73 sqM) Est GFR (CKD-EPI)NonAf (>60 ml/min/1.73 sqM) Glucose (74-99) mg/dL Lactic Ac Sepsis Rflx Y Plasma Lactic Acid Darri[place] (0.7-2.0) mmol/L Calcium (8.4-10.2) mg/dL Total Bilirubin (0.2-1.3) mg/dL AST (14-36) U/L ALT (4-34) U/L Alkaline Phosphatase (38-126) U/L C-Reactive Protein (<1.0) mg/dL Total Protein (6.3-8.2) g/dL Albumin (3.5-5.0) g/dL Amylase (30-110) U/L Lipase (23-300) U/L Urine Color Light Brown Urine Appearance Cloudy H (Clear) Urine pH 5.5 (5.0-8.0) Ur Specific [place] 1.035 (1.001-1.035) Urine Protein 1+ H (Negative) Urine Glucose (UA) Trace H (Negative) Urine Ketones 1+ H (Negative) Urine Blood Trace H (Negative) Urine Nitrite Negative (Negative) Urine Bilirubin 1+ H (Negative) Urine Urobilinogen 4.0 (<2.0) mg/dL Ur Leukocyte Esterase Negative (Negative) Urine RBC 3 (0-5) /hpf Urine WBC 3 (0-5) /hpf Ur Squamous Epith Cells 9 H (0-4) /hpf Urine Bacteria Rare H (None) /hpf Hyaline Casts 5 H (0-2) /lpf Urine Mucus Many H (None) /hpf Disposition Clinical Impression: Ascites, Abdominal pain Disposition: ADMITTED IP TO THIS HOSP Condition: Poor Is patient prescribed a controlled substance at d/c from ED?: No
[2022-07-03] MEDS ORDERED: MORPHINE SULFATE 4 MG/ML SYRINGE IV STA (17:56)
[2022-07-03 18:25] LABS: Basophils % (A) 0 %; Eosinophils % (A) 0 %; HCT 41.7 % (34.0-46.0); HGB 14.1 gm/dL (11.4-16.0); Lymphocytes # (A) 0.4 k/uL (1.0-4.8); Lymphocytes % (A) 16 %; MCH 35.4 pg (25.0-35.0); MCHC 33.8 g/dL (31.0-37.0); MCV 104.6 fL (80.0-100.0); Macrocytosis Moderate; Mean Platelet Volume 9.5; Monocytes # (A) 0.1 k/uL (0-1.0); Monocytes % (A) 3 %; Neutrophils # (A) 1.7 k/uL (1.3-7.7); Neutrophils % (A) 78 %; RBC 3.98 m/uL (3.80-5.40); RDW 14.2 % (11.5-15.5); WBC 2.2 k/uL (3.8-10.6)
[2022-07-03 19:07] LABS: Platelet Count 39 k/uL (150-450)
[2022-07-03 20:12] LABS: ALT 21 U/L (4-34); AST 32 U/L (14-36); African American GFR (CKD) >90 (>60 ml/min/1.73 sqM); Albumin 2.7 g/dL (3.5-5.0); Alkaline Phosphatase 64 U/L (38-126); Amylase 32 U/L (30-110); Anion Gap 4 mmol/L; Blood Urea Nitrogen 18 mg/dL (7-17); Calcium 8.1 mg/dL (8.4-10.2); Carbon Dioxide 25 mmol/L (22-30); Chloride 109 mmol/L (98-107); Glucose 110 mg/dL (74-99); Lipase 45 U/L (23-300); Non-African American GFR(CKD) >90 (>60 ml/min/1.73 sqM); Potassium 3.9 mmol/L (3.5-5.1); Sodium 138 mmol/L (137-145); Total Bilirubin 3.8 mg/dL (0.2-1.3); Total Protein 6.5 g/dL (6.3-8.2)
--- NOTE | 2022-07-03 20:44 | XR ---
EXAMINATION: XR chest 2V: 07/03/2022 8:34 PM CLINICAL INDICATION: dyspnea TECHNIQUE: Frontal and lateral views COMPARISON: 04/13/2022 AP portable upright FINDINGS: The hemidiaphragms are both elevated, consistent with low lung volumes at the moment of x-ray exposur e. This hypoinflation crowds the pulmonary vasculature. Despite this limitation, there is mild silhouetting of the left pulmonary vasculature, as well as the left hilum and left cardiac border, by a subtle pattern of diffuse ill-defined added opacity; a selwyn radha which can correlate with a clinical diagnosis of pneumonia. If clinically indicated, CT can furth er characterize. The pleural spaces are negative. EKG leads. The cardiac silhouette is not enlarged. The pulmonary arteries appear prominent in caliber , which can correlate with a clinical diagnosis of pulmonary hypertension. The skeletal structures and soft tissues are negative for acute findings. IMPRESSION: Diffuse left pulmonary pattern.
[2022-07-03] MEDS ORDERED: NALOXONE 0.4 MG/ML 1 ML VIAL IV PRN (21:08)
[2022-07-03] MEDS: MORPHINE SULFATE 4 MG/ML SYRINGE IV PRN (21:31)
[2022-07-03 23:23] LABS: Appearance,Urine Cloudy (Clear); Bacteria,Urine Rare /hpf; Bilirubin,Urine 1+ (Negative); Blood,Urine Trace (Negative); Color,Urine Light Brown; Glucose,Urine (UA) Trace (Negative); Hyaline Casts,Urine 5 /lpf (0-2); Ketones,Urine 1+ (Negative); Leukocyte Esterase,Urine Negative (Negative); Mucus,Urine Many /hpf; Nitrite,Urine Negative (Negative); PH, Urine 5.5 (5.0-8.0); Protein,Urine 1+ (Negative); RBC,Urine 3 /hpf (0-5); Specific Gravity,Urine 1.035 (1.001-1.035); Squamous Epithelial Cell,Urine 9 /hpf (0-4); WBC,Urine 3 /hpf (0-5)
[2022-07-04] MEDS: HYDROcodone/APAP 5-325MG 1 EACH TAB PO PRN (00:18)
[2022-07-04] MEDS: MORPHINE SULFATE 4 MG/ML SYRINGE IV PRN ×3 (01:29→20:25)
[2022-07-04] MEDS ORDERED: SODIUM CHLORIDE 0.9% 500 ML 500 ML IV ONE ×2 (06:55→08:44)
[2022-07-04] MEDS: traMADol 50 MG TAB PO SCH ×3 (09:01→20:18)
[2022-07-04 10:16] LABS: INR 1.5 (<1.2); Prothrombin Time 14.6 sec (9.0-12.0)
--- NOTE | 2022-07-04 10:32 | US ---
EXAMINATION TYPE: US abdomen limited DATE OF EXAM: 07/04/2022 COMPARISON: US CLINICAL HISTORY: ascites. ABD distention Moderate to severe ascites present within abdomen IMPRESSION: Ascites
[2022-07-04] MEDS ORDERED: ALBUMIN HUMAN 5% 500 ML in EMPTY BAG 1 BAG IVPB STA (12:24)
[2022-07-04 12:37] LABS: Mean Platelet Volume 10.9
[2022-07-04 12:39] LABS: Platelet Count 54 k/uL (150-450)
[2022-07-04] MEDS: MIDODRINE 5 MG TAB PO SCH ×2 (12:43→17:38)
--- NOTE | 2022-07-04 14:14 | P.GSCN ---
History of Present Illness Consult date: 07/04/22 Reason for Consult: Goals of care Requesting physician: Jenni Gonzalez Past Medical History Past Medical History: Cancer, COPD, GERD/Reflux, GI Bleed, Hearing Disorder / Deafness, Liver Disease Additional Past Medical History / Comment(s): Hepatitis C, intractable ascities with multiple paracentesis, cirrhosis, peritonitis, pancytopenia, vertigo once; multiple upper GI bleeds, esophageal varicies/esophageal banding, left breast cancer had chemo last on 09-12-16-did not tolerate-completed only 3 cycles-then it was stopped/received radiation treatments/pt states she did not follow up and so did not have surgery lt ear deafness, R ear [place], occasional R leg edema. History of Any Multi-Drug Resistant Organisms: None Reported Past Surgical History: Adenoidectomy, Breast Surgery, Tonsillectomy Additional Past Surgical History / Comment(s): Multiple paracentesises, EGDs, esophageal banding, right chest mediport since removed, l breast bx., Past Anesthesia/Blood Transfusion Reactions: No Reported Reaction Additional Past Anesthesia/Blood Transfusion Reaction / Comm: blood transfusions- no reaction Past Psychological History: Anxiety Smoking Status: Current some day smoker, Light tobacco smoker Past Alcohol Use History: None Reported Past Drug Use History: None Reported - Past Family History Mother Family Medical History: Cancer Additional Family Medical History / Comment(s): of lung ca at the age of 59yrs. She was a smoker. Father Family Medical History: Myocardial Infarction ([place]) Additional Family Medical History / Comment(s): from 2nd heart attack at the age of 59yrs. Medications and Allergies Home Medications Medication Instructions Recorded Confirmed Type HYDROmorphone [Dilaudid] 2 mg PO Q6H PRN 09/06/19 07/03/22 History Hydrocodone/Acetaminophen [[place] 1 tab PO Q6H PRN 09/06/19 07/03/22 History 10-325] Naloxone HCl [Narcan] 4 mg NASAL DIRECTED PRN 04/08/22 07/03/22 History Furosemide [Lasix] 40 mg PO DAILY #30 tab 04/11/22 07/03/22 Rx Spironolactone [Aldactone] 25 mg PO DAILY 07/03/22 07/03/22 History Allergies Allergy/AdvReac Type Severity Reaction Status Date / Time No Known Allergies Allergy Verified 07/03/22 20:41 Surgical - Exam Vital Signs Temp Pulse Resp BP Pulse Ox 98.2 F 95 28 H 137/67 95 07/03/22 16:32 07/03/22 16:32 07/03/22 16:32 07/03/22 16:32 07/03/22 16:32 Results - Labs 07/04/22 08:20 07/03/22 19:39 Abnormal Lab Results - Last 24 Hours (Table) 07/03/22 07/03/22 07/03/22 Range/Units 18:05 19:39 19:39 WBC 2.2 L (3.8-10.6) k/uL MCV 104.6 H (80.0-100.0) fL MCH 35.4 H (25.0-35.0) pg Plt Count 39 L (150-450) k/uL Lymphocytes # 0.4 L (1.0-4.8) k/uL PT (9.0-12.0) sec INR (<1.2) Chloride 109 H (98-107) mmol/L BUN 18 H (7-17) mg/dL Glucose 110 H (74-99) mg/dL Plasma Lactic Acid [place] 3.2 H* (0.7-2.0) mmol/L Calcium 8.1 L (8.4-10.2) mg/dL Total Bilirubin 3.8 H (0.2-1.3) mg/dL C-Reactive Protein 3.0 H (<1.0) mg/dL Albumin 2.7 L (3.5-5.0) g/dL Urine Appearance (Clear) Urine Protein (Negative) Urine Glucose (UA) (Negative) Urine Ketones (Negative) Urine Blood (Negative) Urine Bilirubin (Negative) Ur Squamous Epith Cells (0-4) /hpf Urine Bacteria (None) /hpf Hyaline Casts (0-2) /lpf Urine Mucus (None) /hpf 07/03/22 07/04/22 07/04/22 Range/Units 20:50 00:09 05:20 WBC (3.8-10.6) k/uL MCV (80.0-100.0) fL MCH (25.0-35.0) pg Plt Count (150-450) k/uL Lymphocytes # (1.0-4.8) k/uL PT (9.0-12.0) sec INR (<1.2) Chloride (98-107) mmol/L BUN (7-17) mg/dL Glucose (74-99) mg/dL Plasma Lactic Acid [place] 2.7 H* 4.5 H* (0.7-2.0) mmol/L Calcium (8.4-10.2) mg/dL Total Bilirubin (0.2-1.3) mg/dL C-Reactive Protein (<1.0) mg/dL Albumin (3.5-5.0) g/dL Urine Appearance Cloudy H (Clear) Urine Protein 1+ H (Negative) Urine Glucose (UA) Trace H (Negative) Urine Ketones 1+ H (Negative) Urine Blood Trace H (Negative) Urine Bilirubin 1+ H (Negative) Ur Squamous Epith Cells 9 H (0-4) /hpf Urine Bacteria Rare H (None) /hpf Hyaline Casts 5 H (0-2) /lpf Urine Mucus Many H (None) /hpf 07/04/22 07/04/22 07/04/22 Range/Units 08:20 08:20 09:40 WBC (3.8-10.6) k/uL MCV (80.0-100.0) fL MCH (25.0-35.0) pg Plt Count 54 L (150-450) k/uL Lymphocytes # (1.0-4.8) k/uL PT 14.6 H (9.0-12.0) sec INR 1.5 H (<1.2) Chloride (98-107) mmol/L BUN (7-17) mg/dL Glucose (74-99) mg/dL Plasma Lactic Acid [place] 3.7 H* (0.7-2.0) mmol/L Calcium (8.4-10.2) mg/dL Total Bilirubin (0.2-1.3) mg/dL C-Reactive Protein (<1.0) mg/dL Albumin (3.5-5.0) g/dL Urine Appearance (Clear) Urine Protein (Negative) Urine Glucose (UA) (Negative) Urine Ketones (Negative) Urine Blood (Negative) Urine Bilirubin (Negative) Ur Squamous Epith Cells (0-4) /hpf Urine Bacteria (None) /hpf Hyaline Casts (0-2) /lpf Urine Mucus (None) /hpf 07/04/22 Range/Units 11:52 WBC (3.8-10.6) k/uL MCV (80.0-100.0) fL MCH (25.0-35.0) pg Plt Count (150-450) k/uL Lymphocytes # (1.0-4.8) k/uL PT (9.0-12.0) sec INR (<1.2) Chloride (98-107) mmol/L BUN (7-17) mg/dL Glucose (74-99) mg/dL Plasma Lactic Acid [place] 3.1 H* (0.7-2.0) mmol/L Calcium (8.4-10.2) mg/dL Total Bilirubin (0.2-1.3) mg/dL C-Reactive Protein (<1.0) mg/dL Albumin (3.5-5.0) g/dL Urine Appearance (Clear) Urine Protein (Negative) Urine Glucose (UA) (Negative) Urine Ketones (Negative) Urine Blood (Negative) Urine Bilirubin (Negative) Ur Squamous Epith Cells (0-4) /hpf Urine Bacteria (None) /hpf Hyaline Casts (0-2) /lpf Urine Mucus (None) /hpf Diabetes panel 07/03/22 Range/Units 19:39 Sodium 138 (137-145) mmol/L Potassium 3.9 (3.5-5.1) mmol/L Chloride 109 H (98-107) mmol/L Carbon Dioxide 25 (22-30) mmol/L BUN 18 H (7-17) mg/dL Creatinine 0.62 (0.52-1.04) mg/dL Glucose 110 H (74-99) mg/dL Calcium 8.1 L (8.4-10.2) mg/dL AST 32 (14-36) U/L ALT 21 (4-34) U/L Alkaline Phosphatase 64 (38-126) U/L Total Protein 6.5 (6.3-8.2) g/dL Albumin 2.7 L (3.5-5.0) g/dL Calcium panel 07/03/22 Range/Units 19:39 Calcium 8.1 L (8.4-10.2) mg/dL Albumin 2.7 L (3.5-5.0) g/dL Pituitary panel 07/03/22 Range/Units 19:39 Sodium 138 (137-145) mmol/L Potassium 3.9 (3.5-5.1) mmol/L Chloride 109 H (98-107) mmol/L Carbon Dioxide 25 (22-30) mmol/L BUN 18 H (7-17) mg/dL Creatinine 0.62 (0.52-1.04) mg/dL Glucose 110 H (74-99) mg/dL Calcium 8.1 L (8.4-10.2) mg/dL Adrenal panel 07/03/22 Range/Units 19:39 Sodium 138 (137-145) mmol/L Potassium 3.9 (3.5-5.1) mmol/L Chloride 109 H (98-107) mmol/L Carbon Dioxide 25 (22-30) mmol/L BUN 18 H (7-17) mg/dL Creatinine 0.62 (0.52-1.04) mg/dL Glucose 110 H (74-99) mg/dL Calcium 8.1 L (8.4-10.2) mg/dL Total Bilirubin 3.8 H (0.2-1.3) mg/dL AST 32 (14-36) U/L ALT 21 (4-34) U/L Alkaline Phosphatase 64 (38-126) U/L Total Protein 6.5 (6.3-8.2) g/dL Albumin 2.7 L (3.5-5.0) g/dL Assessment and Plan Plan: The patient refused the palliative care consult. She stated that I was scaring her. I sat down and explained that I am just a support person to help. She said "I know why you are here and I'm not talking." She proceded to cover her face with her hands and cry. I explained that I just want to make sure that we are caring for her the way she wants us to. She replied "Get out! I want to be left alone." Alaina Blair [facility] Palliative Care/Urology Spectralink [id number] Email: [email or web address]
[2022-07-04] MEDS ORDERED: fentaNYL (PF) 50 MCG/ML 2 ML AMP IVP PRN (15:39)
[2022-07-05] MEDS: MORPHINE SULFATE 4 MG/ML SYRINGE IV PRN (03:04)
[2022-07-05] MEDS: MIDODRINE 5 MG TAB PO SCH ×3 (06:53→16:48)
[2022-07-05 07:10] LABS: Basophils % (A) 0 %; Eosinophils # (A) 0.2 k/uL (0-0.7); Eosinophils % (A) 2 %; HCT 35.8 % (34.0-46.0); HGB 11.7 gm/dL (11.4-16.0); Lymphocytes # (A) 1.3 k/uL (1.0-4.8); Lymphocytes % (A) 17 %; MCH 35.5 pg (25.0-35.0); MCHC 32.6 g/dL (31.0-37.0); Macrocytosis Marked; Mean Platelet Volume 9.8; Monocytes # (A) 0.6 k/uL (0-1.0); Monocytes % (A) 8 %; Neutrophils # (A) 5.2 k/uL (1.3-7.7); Neutrophils % (A) 69 %; RBC 3.29 m/uL (3.80-5.40); RDW 14.5 % (11.5-15.5); WBC 7.6 k/uL (3.8-10.6)
[2022-07-05 07:20] LABS: Calcium 8.3 mg/dL (8.4-10.2); Potassium 4.2 mmol/L (3.5-5.1)
[2022-07-05 07:25] LABS: Platelet Count 59 k/uL (150-450)
--- NOTE | 2022-07-05 12:44 | P.HPIM ---
History of Present Illness H&P Date: 07/04/22 Chief Complaint: Abdominal pain/distention 56-year-old woman with history of chronic ascites/abdominal pain with esophageal varices/bending, COPD, gastroesophageal reflux disease. She states that over the past few weeks the abdominal distention has increased and it is causing pressure type pain. She has not noted fever or chills. No change in urination or bowel movements. It has been approximately 3 months since she had paracentesis. Blood will completed immediately reveals a WBC of 2.2, hemoglobin 14.1 and platelet count of 39, sodium 138, potassium 3.9, BUN/creatinine of 18/0.62 and blood glucose of 110 lactic acid is elevated at 3.2, total bilirubin is elevated at 8.1, AST/ALT within normal limits, CRP slightly elevated at 3.0 Review of Systems REVIEW OF SYSTEMS: CONSTITUTIONAL: No fever, no malaise, no fatigue. HEENT: No recent visual problems or hearing problems. Denied any sore throat. CARDIOVASCULAR: No chest pain, orthopnea, PND, no palpitations, no syncope. PULMONARY: No shortness of breath, no cough, no hemoptysis. GASTROINTESTINAL: No diarrhea, no nausea, no vomiting, no abdominal pain. NEUROLOGICAL: No headaches, no weakness, no numbness. HEMATOLOGICAL: Denies any bleeding or petechiae. GENITOURINARY: Denies any burning micturition, frequency, or urgency. MUSCULOSKELETAL/RHEUMATOLOGICAL: Denies any joint pain, swelling, or any muscle pain. ENDOCRINE: Denies any polyuria or polydipsia. The rest of the 14-point review of systems is negative. Past Medical History Past Medical History: Cancer, COPD, GERD/Reflux, GI Bleed, Hearing Disorder / Deafness, Liver Disease Additional Past Medical History / Comment(s): Hepatitis C, intractable ascities with multiple paracentesis, cirrhosis, peritonitis, pancytopenia, vertigo once; multiple upper GI bleeds, esophageal varicies/esophageal banding, left breast cancer had chemo last on 09-12-16-did not tolerate-completed only 3 cycles-then it was stopped/received radiation treatments/pt states she did not follow up and so did not have surgery lt ear deafness, R ear NULATO, occasional R leg edema. History of Any Multi-Drug Resistant Organisms: None Reported Past Surgical History: Adenoidectomy, Breast Surgery, Tonsillectomy Additional Past Surgical History / Comment(s): Multiple paracentesises, EGDs, esophageal banding, right chest mediport since removed, l breast bx., Past Anesthesia/Blood Transfusion Reactions: No Reported Reaction Additional Past Anesthesia/Blood Transfusion Reaction / Comment(s): blood transfusions- no reaction Past Psychological History: Anxiety Smoking Status: Current some day smoker, Light tobacco smoker Past Alcohol Use History: None Reported Past Drug Use History: None Reported - Past Family History Mother Family Medical History: Cancer Additional Family Medical History / Comment(s): of lung ca at the age of 59yrs. She was a smoker. Father Family Medical History: Myocardial Infarction ([place]) Additional Family Medical History / Comment(s): from 2nd heart attack at the age of 59yrs. Medications and Allergies Home Medications Medication Instructions Recorded Confirmed Type HYDROmorphone [Dilaudid] 2 mg PO Q6H PRN 09/06/19 07/03/22 History Hydrocodone/Acetaminophen [[place] 1 tab PO Q6H PRN 09/06/19 07/03/22 History 10-325] Naloxone HCl [Narcan] 4 mg NASAL DIRECTED PRN 04/08/22 07/03/22 History Furosemide [Lasix] 40 mg PO DAILY #30 tab 04/11/22 07/03/22 Rx Spironolactone [Aldactone] 25 mg PO DAILY 07/03/22 07/03/22 History Allergies Allergy/AdvReac Type Severity Reaction Status Date / Time No Known Allergies Allergy Verified 07/03/22 20:41 Physical Exam Vitals: Vital Signs Temp Pulse Resp BP Pulse Ox 07/04/22 11:43 99 18 77/47 96 07/04/22 10:58 98 18 76/42 99 07/04/22 08:58 115 H 18 86/50 94 L 07/04/22 08:36 112 H 18 90/53 96 07/04/22 08:18 114 H 18 78/56 95 07/04/22 08:00 98.0 F 112 H 16 90/51 94 L 07/04/22 07:21 114 H 20 93/57 92 L 07/04/22 07:02 109 H 18 82/55 92 L 07/04/22 06:25 98.0 F 111 H 18 81/55 88 L 07/04/22 01:22 114 H 19 100/77 93 L 07/04/22 00:45 109 H 20 105/60 07/04/22 00:30 78 18 105/60 94 L 07/04/22 00:26 105/60 07/03/22 21:33 106 H 20 132/81 96 07/03/22 16:32 98.2 F 95 28 H 137/67 95 Intake and Output 07/03/22 07/04/22 07/04/22 22:59 06:59 14:59 Other: Weight 68.039 kg PHYSICAL EXAMINATION: GENERAL: The patient is alert and oriented x3, not in any acute distress. Well developed, well nourished. HEENT: Pupils are round and equally reacting to light. EOMI. No scleral icterus. No conjunctival pallor. Normocephalic, atraumatic. No pharyngeal erythema. No thyromegaly. CARDIOVASCULAR: S1 and S2 present. No murmurs, rubs, or gallops. PULMONARY: Chest is clear to auscultation, no wheezing or crackles. ABDOMEN: Soft, nontender, markedly, normoactive bowel sounds. No palpable organomegaly. MUSCULOSKELETAL: No joint swelling or deformity. EXTREMITIES: No cyanosis, clubbing, or pedal edema. NEUROLOGICAL: Gross neurological examination did not reveal any focal deficits. SKIN: No rashes. Results CBC & Chem 7: 07/05/22 06:24 07/05/22 06:24 Labs: Abnormal Lab Results - Last 24 Hours (Table) 07/03/22 07/03/22 07/03/22 Range/Units 18:05 19:39 19:39 WBC 2.2 L (3.8-10.6) k/uL MCV 104.6 H (80.0-100.0) fL MCH 35.4 H (25.0-35.0) pg Plt Count 39 L (150-450) k/uL Lymphocytes # 0.4 L (1.0-4.8) k/uL PT (9.0-12.0) sec INR (<1.2) Chloride 109 H (98-107) mmol/L BUN 18 H (7-17) mg/dL Glucose 110 H (74-99) mg/dL Plasma Lactic Acid Darrius 3.2 H* (0.7-2.0) mmol/L Calcium 8.1 L (8.4-10.2) mg/dL Total Bilirubin 3.8 H (0.2-1.3) mg/dL C-Reactive Protein 3.0 H (<1.0) mg/dL Albumin 2.7 L (3.5-5.0) g/dL Urine Appearance (Clear) Urine Protein (Negative) Urine Glucose (UA) (Negative) Urine Ketones (Negative) Urine Blood (Negative) Urine Bilirubin (Negative) Ur Squamous Epith Cells (0-4) /hpf Urine Bacteria (None) /hpf Hyaline Casts (0-2) /lpf Urine Mucus (None) /hpf 07/03/22 07/04/22 07/04/22 Range/Units 20:50 00:09 05:20 WBC (3.8-10.6) k/uL MCV (80.0-100.0) fL MCH (25.0-35.0) pg Plt Count (150-450) k/uL Lymphocytes # (1.0-4.8) k/uL PT (9.0-12.0) sec INR (<1.2) Chloride (98-107) mmol/L BUN (7-17) mg/dL Glucose (74-99) mg/dL Plasma Lactic Acid Darrius 2.7 H* 4.5 H* (0.7-2.0) mmol/L Calcium (8.4-10.2) mg/dL Total Bilirubin (0.2-1.3) mg/dL C-Reactive Protein (<1.0) mg/dL Albumin (3.5-5.0) g/dL Urine Appearance Cloudy H (Clear) Urine Protein 1+ H (Negative) Urine Glucose (UA) Trace H (Negative) Urine Ketones 1+ H (Negative) Urine Blood Trace H (Negative) Urine Bilirubin 1+ H (Negative) Ur Squamous Epith Cells 9 H (0-4) /hpf Urine Bacteria Rare H (None) /hpf Hyaline Casts 5 H (0-2) /lpf Urine Mucus Many H (None) /hpf 07/04/22 07/04/22 Range/Units 08:20 09:40 WBC (3.8-10.6) k/uL MCV (80.0-100.0) fL MCH (25.0-35.0) pg Plt Count (150-450) k/uL Lymphocytes # (1.0-4.8) k/uL PT 14.6 H (9.0-12.0) sec INR 1.5 H (<1.2) Chloride (98-107) mmol/L BUN (7-17) mg/dL Glucose (74-99) mg/dL Plasma Lactic Acid Darrius 3.7 H* (0.7-2.0) mmol/L Calcium (8.4-10.2) mg/dL Total Bilirubin (0.2-1.3) mg/dL C-Reactive Protein (<1.0) mg/dL Albumin (3.5-5.0) g/dL Urine Appearance (Clear) Urine Protein (Negative) Urine Glucose (UA) (Negative) Urine Ketones (Negative) Urine Blood (Negative) Urine Bilirubin (Negative) Ur Squamous Epith Cells (0-4) /hpf Urine Bacteria (None) /hpf Hyaline Casts (0-2) /lpf Urine Mucus (None) /hpf Assessment and Plan Assessment: 1. Acute onset abdominal pain - Patient does reveal generalized abdominal tenderness; has been placed on prophylaxis with Rocephin 1 g daily - Patient has no fever and neutropenia along with thrombocytopenia likely related due to liver disease 2. Liver cirrhosis with ascites; patient is currently on Aldactone 25 mg daily along with Lasix 40 mg by mouth daily 3. Hypotension; volume depletion versus third spacing - Patient did receive a few normal saline boluses to the night; we will add albumin 5% 500 mL - Greater than 10 mg by mouth 3 times a day 4. Chronic pain; patient has been tolerating fentanyl 25 MCG IV every 4 hours when necessary - We will add tramadol 50 mg by mouth 3 times a day when necessary - Patient takes Dilaudid 2 mg by mouth every 6 hours when necessary DVT prophylaxis SCDs only given liver failure and elevated INR CODE STATUS; full code
[2022-07-05] MEDS: traMADol 50 MG TAB PO SCH ×3 (13:06→20:52)
[2022-07-05] MEDS: FUROSEMIDE 40 MG TAB PO SCH (16:47)
[2022-07-05] MEDS: HYDROcodone/APAP 5-325MG 1 EACH TAB PO PRN (16:48)
[2022-07-05] MEDS: SPIRONOLACTONE 25 MG TAB PO SCH (16:48)
[2022-07-05] MEDS ORDERED: FUROSEMIDE 10 MG/ML 4 ML VIAL IV STA (17:24)
[2022-07-05] MEDS: ALBUMIN HUMAN 25% 50 ML in EMPTY BAG 1 BAG IVPB SCH ×2 (19:12→19:32)
[2022-07-05] MEDS ORDERED: ALBUMIN HUMAN 5% 500 ML in EMPTY BAG 1 BAG IVPB ONE (20:00)
[2022-07-06] MEDS: MIDODRINE 5 MG TAB PO SCH ×3 (06:07→17:45)
[2022-07-06] MEDS: ONDANSETRON 4 MG/2 ML VIAL IVP PRN ×3 (06:07→19:38)
[2022-07-06] MEDS: FUROSEMIDE 40 MG TAB PO SCH (08:23)
[2022-07-06] MEDS: SPIRONOLACTONE 25 MG TAB PO SCH (08:23)
[2022-07-06] MEDS: traMADol 50 MG TAB PO SCH ×2 (08:23→16:04)
[2022-07-06 09:17] LABS: Calcium 8.2 mg/dL (8.4-10.2); Potassium 4.1 mmol/L (3.5-5.1)
[2022-07-06 09:32] LABS: HCT 32.3 % (34.0-46.0); HGB 11.2 gm/dL (11.4-16.0); MCH 36.2 pg (25.0-35.0); MCHC 34.6 g/dL (31.0-37.0); MCV 104.6 fL (80.0-100.0); Macrocytosis Moderate; Mean Platelet Volume 10.1; RBC 3.09 m/uL (3.80-5.40); RDW 15.1 % (11.5-15.5); WBC 6.1 k/uL (3.8-10.6)
[2022-07-06 09:33] LABS: Platelet Count 45 k/uL (150-450)
[2022-07-06 10:11] LABS: Lymphocytes # (M) 0.92 k/uL (1.0-4.8); Monocytes # (M) 0.49 k/uL (0-1.0); Neutrophils % (M) 77 %; Nucleated Red Blood Cells 0 /100 WBC (0-0); Total Cells Counted 100
--- NOTE | 2022-07-06 10:29 | P.PN ---
Subjective Progress Note Date: 07/05/22 56-year-old woman with history of chronic ascites/abdominal pain with esophageal varices/bending, COPD, gastroesophageal reflux disease. She states that over the past few weeks the abdominal distention has increased and it is causing pressure type pain. She has not noted fever or chills. No change in urination or bowel movements. It has been approximately 3 months since she had paracentesis. Blood will completed immediately reveals a WBC of 2.2, hemoglobin 14.1 and platelet count of 39, sodium 138, potassium 3.9, BUN/creatinine of 18/0.62 and blood glucose of 110 lactic acid is elevated at 3.2, total bilirubin is elevated at 8.1, AST/ALT within normal limits, CRP slightly elevated at 3.0 -- Patient remains hypotensive despite IV fluid hydration and monitor trend 10 mg 3 times a day; we will add another dose of 25% albumin followed by Lasix 40 mg IV -- Paracentesis once blood pressure is stable Objective - Vital Signs Vital signs: Vital Signs Temp 97.4 F L 07/05/22 08:16 Pulse 86 07/05/22 12:00 Resp 16 07/05/22 12:00 BP 93/57 07/05/22 12:00 Pulse Ox 94 L 07/05/22 12:00 FiO2 Intake & Output 07/04/22 07/05/22 07/05/22 18:59 06:59 18:59 Weight 68.039 kg Other: Voiding Method Toilet # Voids 2 - Exam PHYSICAL EXAMINATION: GENERAL: The patient is alert and oriented x3, not in any acute distress. Well developed, well nourished. HEENT: Pupils are round and equally reacting to light. EOMI. No scleral icterus. No conjunctival pallor. Normocephalic, atraumatic. No pharyngeal erythema. No thyromegaly. CARDIOVASCULAR: S1 and S2 present. No murmurs, rubs, or gallops. PULMONARY: Chest is clear to auscultation, no wheezing or crackles. ABDOMEN: Soft, nontender, abdomen is distended, normoactive bowel sounds. No palpable organomegaly. MUSCULOSKELETAL: No joint swelling or deformity. EXTREMITIES: No cyanosis, clubbing, or pedal edema. NEUROLOGICAL: Gross neurological examination did not reveal any focal deficits. SKIN: No rashes. - Labs CBC & Chem 7: 07/06/22 07:56 07/06/22 07:56 Labs: Abnormal Lab Results - Last 24 Hours (Table) 07/04/22 07/04/22 07/05/22 Range/Units 16:22 20:11 06:24 RBC 3.29 L (3.80-5.40) m/uL MCV 109.0 H (80.0-100.0) fL MCH 35.5 H (25.0-35.0) pg Plt Count 59 L (150-450) k/uL Macrocytosis Marked A Sodium (137-145) mmol/L BUN (7-17) mg/dL Creatinine (0.52-1.04) mg/dL Plasma Lactic Acid Darrius 2.9 H* 3.1 H* (0.7-2.0) mmol/L Calcium (8.4-10.2) mg/dL 07/05/22 07/05/22 Range/Units 06:24 06:24 RBC (3.80-5.40) m/uL MCV (80.0-100.0) fL MCH (25.0-35.0) pg Plt Count (150-450) k/uL Macrocytosis Sodium 136 L (137-145) mmol/L BUN 42 H (7-17) mg/dL Creatinine 2.64 H (0.52-1.04) mg/dL Plasma Lactic Acid Darrius 2.1 H* (0.7-2.0) mmol/L Calcium 8.3 L (8.4-10.2) mg/dL Microbiology - Last 24 Hours (Table) 07/04/22 09:00 Blood Culture - Preliminary Blood No Growth after 24 hours 07/04/22 08:45 Blood Culture - Preliminary Blood No Growth after 24 hours Assessment and Plan Assessment: 1. Acute onset abdominal pain - Patient does reveal generalized abdominal tenderness; has been placed on prophylaxis with Rocephin 1 g daily - Patient has no fever and neutropenia along with thrombocytopenia likely related due to liver disease 2. Liver cirrhosis with ascites; patient is currently on Aldactone 25 mg daily along with Lasix 40 mg by mouth daily 3. Hypotension; volume depletion versus third spacing - Patient did receive a few normal saline boluses to the night; we will add albumin 5% 500 mL - Greater than 10 mg by mouth 3 times a day 4. Chronic pain; patient has been tolerating fentanyl 25 MCG IV every 4 hours when necessary - We will add tramadol 50 mg by mouth 3 times a day when necessary - Patient takes Dilaudid 2 mg by mouth every 6 hours when necessary DVT prophylaxis SCDs only given liver failure and elevated INR CODE STATUS; full code
--- NOTE | 2022-07-06 16:40 | P.PN ---
Subjective Progress Note Date: 07/06/22 Principal diagnosis: Liver cirrhosis with ascites Hypotension Acute abdominal pain 56-year-old woman with history of chronic ascites/abdominal pain with esophageal varices/bending, COPD, gastroesophageal reflux disease. She states that over the past few weeks the abdominal distention has increased and it is causing pressure type pain. She has not noted fever or chills. No change in urination or bowel movements. It has been approximately 3 months since she had paracentesis. Blood will completed immediately reveals a WBC of 2.2, hemoglobin 14.1 and platelet count of 39, sodium 138, potassium 3.9, BUN/creatinine of 18/0.62 and blood glucose of 110 lactic acid is elevated at 3.2, total bilirubin is elevated at 8.1, AST/ALT within normal limits, CRP slightly elevated at 3.0 -- Patient remains hypotensive despite IV fluid hydration and monitor trend 10 mg 3 times a day; we will add another dose of 25% albumin followed by Lasix 40 mg IV -- Paracentesis once blood pressure is stable 07/06/2022 Patient is seen and evaluated in room at bedside; denies any specific complaints Vital signs are reviewed; blood pressure is improved - Patient has been placed on Midrin and albumin with markedly improved blood pressures - Remains on ceftriaxone 1 g IV daily for SBP prophylaxis Objective - Vital Signs Vital signs: Vital Signs Temp 98.0 F 07/06/22 08:18 Pulse 77 07/06/22 08:18 Resp 16 07/06/22 08:18 BP 119/74 07/06/22 08:18 Pulse Ox 95 07/06/22 04:25 FiO2 Intake & Output 07/05/22 07/06/22 07/06/22 18:59 06:59 18:59 Intake Total 118 Output Total 50 Balance 118 -50 Intake: Oral 118 Output: Emesis 50 Other: Voiding Method Toilet # Voids 1 - Exam PHYSICAL EXAMINATION: GENERAL: The patient is alert and oriented x3, not in any acute distress. Well developed, well nourished. HEENT: Pupils are round and equally reacting to light. EOMI. No scleral icterus. No conjunctival pallor. Normocephalic, atraumatic. No pharyngeal erythema. No thyromegaly. CARDIOVASCULAR: S1 and S2 present. No murmurs, rubs, or gallops. PULMONARY: Chest is clear to auscultation, no wheezing or crackles. ABDOMEN: Soft, nontender, abdomen is distended, normoactive bowel sounds. No palpable organomegaly. MUSCULOSKELETAL: No joint swelling or deformity. EXTREMITIES: No cyanosis, clubbing, or pedal edema. NEUROLOGICAL: Gross neurological examination did not reveal any focal deficits. SKIN: No rashes. - Labs CBC & Chem 7: 07/06/22 07:56 07/06/22 07:56 Labs: Abnormal Lab Results - Last 24 Hours (Table) 07/06/22 07/06/22 Range/Units 07:56 07:56 RBC 3.09 L (3.80-5.40) m/uL Hgb 11.2 L (11.4-16.0) gm/dL Hct 32.3 L (34.0-46.0) % MCV 104.6 H (80.0-100.0) fL MCH 36.2 H (25.0-35.0) pg Plt Count 45 L (150-450) k/uL Lymphocytes # (Manual) 0.92 L (1.0-4.8) k/uL Sodium 134 L (137-145) mmol/L Carbon Dioxide 21 L (22-30) mmol/L BUN 60 H (7-17) mg/dL Creatinine 2.42 H (0.52-1.04) mg/dL Glucose 100 H (74-99) mg/dL Calcium 8.2 L (8.4-10.2) mg/dL Microbiology - Last 24 Hours (Table) 07/04/22 09:00 Blood Culture - Preliminary Blood No Growth after 24 hours 07/04/22 08:45 Blood Culture - Preliminary Blood No Growth after 24 hours Assessment and Plan Assessment: 1. Acute onset abdominal pain - Patient does reveal generalized abdominal tenderness; has been placed on prophylaxis with Rocephin 1 g daily - Patient has no fever and neutropenia along with thrombocytopenia likely related due to liver disease 2. Liver cirrhosis with ascites; patient is currently on Aldactone 25 mg daily along with Lasix 40 mg by mouth daily 3. Hypotension; volume depletion versus third spacing - Patient did receive a few normal saline boluses to the night; we will add albumin 5% 500 mL - Greater than 10 mg by mouth 3 times a day 4. Chronic pain; patient has been tolerating fentanyl 25 MCG IV every 4 hours when necessary - We will add tramadol 50 mg by mouth 3 times a day when necessary - Patient takes Dilaudid 2 mg by mouth every 6 hours when necessary DVT prophylaxis SCDs only given liver failure and elevated INR CODE STATUS; full code
[2022-07-07] MEDS: traMADol 50 MG TAB PO SCH ×4 (00:59→23:26)
[2022-07-07] MEDS: ONDANSETRON 4 MG/2 ML VIAL IVP PRN (01:00)
[2022-07-07] MEDS: MIDODRINE 5 MG TAB PO SCH ×3 (06:22→16:09)
[2022-07-07] MEDS: MORPHINE SULFATE 4 MG/ML SYRINGE IV PRN ×3 (09:20→20:02)
[2022-07-07] MEDS: FUROSEMIDE 40 MG TAB PO SCH (09:20)
[2022-07-07] MEDS: SPIRONOLACTONE 25 MG TAB PO SCH (09:20)
[2022-07-07] MEDS: HYDROcodone/APAP 5-325MG 1 EACH TAB PO PRN (11:50)
--- NOTE | 2022-07-07 13:36 | US ---
Ultrasound-guided paracentesis. DATE OF EXAM: 07/07/2022 CLINICAL HISTORY: Ascites The procedure was discussed with the patient. The risks, complications, benefits, and alternatives we re discussed and any questions were answered. Informed consent was obtained. The patient was placed s upine on the ultrasound table and prepped and draped in the usual sterile fashion. All elements of maximal barrier technique were utilized. Under ultrasound guidance, access into the right lower quadrant was obtained, via the paracentesis catheter system and direct ultrasound guidanc e. The patient was stable throughout the procedure and remained stable upon discharge from Department of Radiology. IMPRESSION: Successful paracentesis under ultrasound guidance.
[2022-07-07] MEDS: ALBUMIN HUMAN 25% 50 ML in EMPTY BAG 1 BAG IVPB SCH ×2 (18:16→20:04)
[2022-07-08] MEDS: MORPHINE SULFATE 4 MG/ML SYRINGE IV PRN (03:31)
[2022-07-08 06:09] LABS: Amylase, Fluid Source Paracentesis Fluid; Amylase,Body Fluid 9 U/L; Glucose, BF Source Paracentesis Fluid; Glucose, Body Fluid 50 mg/dL; LDH, Body Fluid Source Paracentesis Fluid; T. Protein, Body Fluid Source Paracentesis Fluid; Total Protein, Body Fluid 2390 mg/dL
[2022-07-08] MEDS: HYDROcodone/APAP 5-325MG 1 EACH TAB PO PRN (06:18)
[2022-07-08 06:19] LABS: Appearance,BF Cloudy
[2022-07-08] MEDS: MIDODRINE 5 MG TAB PO SCH ×3 (06:19→16:52)
[2022-07-08] MEDS: SPIRONOLACTONE 25 MG TAB PO SCH (08:24)
[2022-07-08] MEDS: traMADol 50 MG TAB PO SCH ×2 (08:24→19:52)
[2022-07-08] MEDS: FUROSEMIDE 40 MG TAB PO SCH (08:24)
[2022-07-08] MEDS ORDERED: SENNOSIDES-DOCUSATE SODIUM 1 EACH TAB PO PRN (10:53)
[2022-07-08] MEDS ORDERED: BENZOCAINE/MENTHOL LOZENG 1 EACH LOZENGE MUCOUS MEM PRN (10:56)
[2022-07-08] MEDS: HYDROcodone/APAP 7.5-325MG 1 EACH TAB PO PRN ×3 (11:16→22:42)
--- NOTE | 2022-07-08 11:28 | P.PN ---
Subjective Progress Note Date: 07/08/22 The patient is a 56-year-old woman with history of chronic ascites/abdominal pain with esophageal varices/bending, COPD, gastroesophageal reflux disease. She states that over the past few weeks the abdominal distention has increased and it is causing pressure type pain. She has not noted fever or chills. No change in urination or bowel movements. It has been approximately 3 months since she had paracentesis. Blood will completed immediately reveals a WBC of 2.2, hemoglobin 14.1 and platelet count of 39, sodium 138, potassium 3.9, BUN/creatinine of 18/0.62 and blood glucose of 110 lactic acid is elevated at 3.2, total bilirubin is elevated at 8.1, AST/ALT within normal limits, CRP slightly elevated at 3.0. Patient remains hypotensive despite IV fluid hydration. Midodrine and albumin added with markedly improved blood pressures. 07/07 Paracentesis performed. Objective - Vital Signs Vital signs: Vital Signs Temp 98.1 F 07/08/22 03:23 Pulse 85 07/08/22 03:23 Resp 17 07/08/22 03:23 BP 119/74 07/08/22 03:23 Pulse Ox 98 07/08/22 08:41 FiO2 Intake & Output 07/07/22 07/08/22 07/08/22 18:59 06:59 18:59 Intake Total 243 240 Output Total 1500 Balance 243 -1260 Intake: IV 50 cefTRIAXone 1 gm In 50 Sodium Chloride 0.9% 50 ml @ 100 mls/hr IVPB Q24HR [facility] Rx#:[id number] Oral 193 Lipid 240 cefTRIAXone 1 gm In 240 Sodium Chloride 0.9% 50 ml @ 100 mls/hr IVPB Q24HR [facility] Rx#:[id number] Output: Urine 1500 Other: Voiding Method Toilet Toilet # Voids 2 - Exam General: Well developed, well nourished. No acute distress. Chronically ill appearing HEENT: Head is atraumatic, normocephalic. Sclera are clear. Mucus membranes dry. CV: Heart regular in rate and rhythm positive S1 and S2 Lungs: Clear to auscultation bilaterally. Respirations even and nonlabored. Abdomen/GI: Distended and tender to palpitation. Musculoskeletal/ Extremities: No contractures or gross atrophy. + generalized weakness Skin: Warm and dry Neurologic: Awake, alert and oriented times 3. CN II-XII grossly intact. No focal deficits. Psychiatric: Anxious and emotional - Labs CBC & Chem 7: 07/06/22 07:56 07/06/22 07:56 Labs: Microbiology - Last 24 Hours (Table) 07/07/22 10:19 Anaerobic Culture - Preliminary Paracentesis Fluid 07/07/22 10:19 Body Fluid Culture - Preliminary Paracentesis Fluid 07/04/22 09:00 Blood Culture - Preliminary Blood No Growth after 72 hours 07/04/22 08:45 Blood Culture - Preliminary Blood No Growth after 72 hours Assessment and Plan Assessment: Social * Occupation - unemployed * Marital status - single * Children/grandchildren - 4 adult children, 1 of which is disabled and bed bound * Who do you reside with - Son * ETOH - history of ETOH abuse * Tobacco - Current moker * Illicit drugs - None reported Spiritual/Cultural * A spiritual person - Somewhat * Shinto - Orthodox * Belong to a particular hoahaoism - No * Beliefs a source of comfort and strength - Yes, "I pray in my own way" * Yazidism or cultural practices restrictions - No * EOL considerations/rituals - None Functional Assessment * Able to walk independently - Yes * Assistive devices - None * Able to use the bathroom independently - Yes * Continent - Occasional incontinence * Require assistance bathing- No * Able to feed self - Yes * Who prepares meals - Patient * Able to clean house/do laundry - A little at a time * Transportation -Daughter provides transportation * Able to shop - No, she has groceries delivered or her daughter shops for her * Who manages medications - Patient * Who manages finances - Patient * Does pain impact ability to perform ADL's - Yes - abdominal pain PPS score - 60% Safety * In home/residence - Yes * In relationships - Yes Psychological/Emotional * Dementia present - No * Insight and judgment - Not intact, she does not want to know * Depression - No * Suicidal thoughts - No * Good support system - Family * Patients goals - prolonged survival * Frequent hospitalizations - No * Desire to keep coming back to the hospital for treatment - Yes Symptoms * Pain - 8/10 abdominal pain, Continue Tramadol, increase [place] to 7.5/325mg, Co ntinue Fentanyl prn, d/c Morphine * Fatigue - generalized weakness and fatigue * SOB - yes, with activity. Continue Lasix and Aldactone. On 2L NC * Insomnia - No * N/V - No * Anxiety - Yes, add Xanax bid prn * Depression - No * Confusion - No * Agitation - No * Hallucinations - No * Appetite/weight loss - decreased appetite, continue heart healthy diet, add ensure supplements TIDWM and magic cups BIDWM * Dysphagia - No * Constipation - LBM 4 days ago, pt states that is normal for her, add Senokot-s prn * Incontinence - Occasional * Itch - No * Cough - no * Sore throat - Add Cepacol throat lozenges * Dry nose - add humidification to O2 Plan: Summary/Goals - The patient is lying in bed holding her abdomen and appears to be uncomfortable. She reports 8/10 pain. She covered her her head initially with a blanket and did not want to talk. I told her I was there to help manage her symptoms and get her more comfortable. She was then a little more willing to open up. She states she had a paracentesis yesterday, but it did not help her pain. Pain medications adjusted: increased [place] to 7.5, discontinued Morphine due to recent issues with hypotension. Continue Tramadol and Fentanyl as ordered. The patient states that she is very anxious and afraid. She states she does not want to hear any bad news. She is afraid of dying. She is worried that if she is not here there will not be anyone to care for her disabled son. She is emotional, crying and shaky. Xanax ordered prn. The patient states she has not been eating well. She has a sore throat and does not have an appetite. She likes ensure and the idea of a magic cup to supplement her diet. Attempted to address code status again. She refused stating that she does not want to talk about that and covered her head. It was explained that it is important to know how she would want us to care for her in the case of an emergency. She refuses to talk anymore. Advanced Directives - None on file Code Status - Full Code Thank you for this consultation Alaina Blair [facility] Spectralink [id number] Email: [email or web address]
[2022-07-08 13:02] VITALS: BMI 22.1
--- NOTE | 2022-07-08 15:24 | P.NPCON ---
History of Present Illness - Reason for Consult acute renal failure - History of Present Illness Reason for consultation: Acute kidney injury History of present illness: Patient is a 56-year-old female seen in renal consultation for acute kidney injury. Patient's creatinine on admission on 07/03/2022 was 0.62 and was elevated at 2.64 07/05/22 and slightly improved to 2.42 07/06/22. Patient presented to the hospital due to worsening abdominal distention. Patient states her oral intake has been poor due to fullness in her abdomen. Patient has history of hep C but is unsure if he was treated or not. She denies history of abuse. Denies history of IV drug abuse. Denies hematuria. Has been voiding. No history of diabetes. Patient underwent paracentesis with 3.7 L drained on 07/07/2022. Patient's blood pressure has been as low as 83/52 this admission but is now improved. She has received IV fluids due to hypotension but is now maintained on spironolactone as well as Lasix. She is also on midodrine. No vomiting or diarrhea. Denies chest pain or shortness of breath. No fever or chills. Vital signs are stable. General: No acute distress. HEENT: Head exam is unremarkable. LUNGS: No audible rhonchi or wheezes. HEART: Rate and Rhythm are regular. ABDOMEN: Soft, generalized tenderness. No distention. EXTREMITITES: No edema. Past Medical History Past Medical History: Cancer, COPD, GERD/Reflux, GI Bleed, Hearing Disorder / Deafness, Liver Disease Additional Past Medical History / Comment(s): Hepatitis C, intractable ascities with multiple paracentesis, cirrhosis, peritonitis, pancytopenia, vertigo once; multiple upper GI bleeds, esophageal varicies/esophageal banding, left breast cancer had chemo last on 09-12-16-did not tolerate-completed only 3 cycles-then it was stopped/received radiation treatments/pt states she did not follow up and so did not have surgery lt ear deafness, R ear SLEETMUTE, occasional R leg edema. History of Any Multi-Drug Resistant Organisms: None Reported Past Surgical History: Adenoidectomy, Breast Surgery, Tonsillectomy Additional Past Surgical History / Comment(s): Multiple paracentesises, EGDs, esophageal banding, right chest mediport since removed, l breast bx., Past Anesthesia/Blood Transfusion Reactions: No Reported Reaction Additional Past Anesthesia/Blood Transfusion Reaction / Comment(s): blood transfusions- no reaction Past Psychological History: Anxiety Smoking Status: Current some day smoker, Light tobacco smoker Past Alcohol Use History: None Reported Past Drug Use History: None Reported - Past Family History Mother Family Medical History: Cancer Additional Family Medical History / Comment(s): of lung ca at the age of 59yrs. She was a smoker. Father Family Medical History: Myocardial Infarction ([place]) Additional Family Medical History / Comment(s): from 2nd heart attack at the age of 59yrs. Medications and Allergies Home Medications Medication Instructions Recorded Confirmed Type HYDROmorphone [Dilaudid] 2 mg PO Q6H PRN 09/06/19 07/03/22 History Hydrocodone/Acetaminophen [[place] 1 tab PO Q6H PRN 09/06/19 07/03/22 History 10-325] Naloxone HCl [Narcan] 4 mg NASAL DIRECTED PRN 04/08/22 07/03/22 History Furosemide [Lasix] 40 mg PO DAILY #30 tab 04/11/22 07/03/22 Rx Spironolactone [Aldactone] 25 mg PO DAILY 07/03/22 07/03/22 History Allergies Allergy/AdvReac Type Severity Reaction Status Date / Time No Known Allergies Allergy Verified 07/03/22 20:41 Physical Exam Vitals: Vital Signs Temp Pulse Resp BP Pulse Ox 07/08/22 11:19 71 16 110/67 93 L 07/08/22 08:41 98 07/08/22 08:00 97.9 F 73 15 90/50 92 L 07/08/22 03:23 98.1 F 85 17 119/74 98 07/07/22 23:13 98.0 F 81 17 130/79 98 07/07/22 20:00 98.2 F 77 17 127/74 99 07/07/22 15:25 80 133/62 99 Intake and Output 07/08/22 07/08/22 07/08/22 06:59 14:59 22:59 Intake Total 240 50 Balance 240 50 Intake: IV 50 cefTRIAXone 1 gm In 50 Sodium Chloride 0.9% 50 ml @ 100 mls/hr IVPB Q24HR [facility], [facility]1983 Rx#:[id number] Lipid 240 cefTRIAXone 1 gm In 240 Sodium Chloride 0.9% 50 ml @ 100 mls/hr IVPB Q24HR [facility], [facility] Rx#:[id number] Other: Voiding Method Toilet Bedside Commode # Voids 2 Weight 68.039 kg Results - Lab Results Most recent lab results Calcium 8.2 mg/dL (8.4-10.2) L 07/06/22 07:56 07/06/22 07:56 07/06/22 07:56 Assessment and Plan Plan: Assessment: 1. Acute kidney injury secondary to hemodynamic ATN. Baseline creatinine is 0.6. Creatinine peaked at 2.64 this admission and was 2.42 dated 07/06/22. 2. Liver cirrhosis with ascites. Likely hep C induced. Status post paracentes is with 3.7 L drained 07/07/2022. 3. Metabolic acidosis secondary to lactic acidosis. Plan: Maintain Lasix and spironolactone. Maintain midodrine. Check renal ultrasound. Continue to monitor renal function and urine output. Should follow up with GI to consider treatment options for hep C. Labs from today pending. Thank you for the consultation. I will continue to follow the patient with you during her hospital stay.
[2022-07-08 16:12] LABS: ALT 16 U/L (4-34); AST 26 U/L (14-36); African American GFR (CKD) >90 (>60 ml/min/1.73 sqM); Albumin 2.7 g/dL (3.5-5.0); Alkaline Phosphatase 45 U/L (38-126); Anion Gap 5 mmol/L; Blood Urea Nitrogen 29 mg/dL (7-17); Carbon Dioxide 31 mmol/L (22-30); Chloride 103 mmol/L (98-107); Glucose 101 mg/dL (74-99); HCT 30.7 % (34.0-46.0); HGB 10.3 gm/dL (11.4-16.0); INR 1.3 (<1.2); Lipase 160 U/L (23-300); MCH 35.2 pg (25.0-35.0); MCHC 33.6 g/dL (31.0-37.0); MCV 104.6 fL (80.0-100.0); Macrocytosis Moderate; Mean Platelet Volume 9.9; Non-African American GFR(CKD) >90 (>60 ml/min/1.73 sqM); Platelet Count 45 k/uL (150-450); Potassium 3.4 mmol/L (3.5-5.1); Prothrombin Time 13.3 sec (9.0-12.0); RBC 2.94 m/uL (3.80-5.40); RDW 15.4 % (11.5-15.5); Sodium 139 mmol/L (137-145); Total Bilirubin 2.1 mg/dL (0.2-1.3); Total Protein 5.8 g/dL (6.3-8.2); WBC 2.9 k/uL (3.8-10.6)
[2022-07-08 16:41] LABS: Eosinophils # (M) 0.03 k/uL (0-0.7); Lymphocytes # (M) 0.61 k/uL (1.0-4.8); Monocytes # (M) 0.67 k/uL (0-1.0); Neutrophils % (M) 55 %; Nucleated Red Blood Cells 0 /100 WBC (0-0); Total Cells Counted 100
--- NOTE | 2022-07-08 16:46 | US ---
EXAMINATION TYPE: US kidneys/renal and bladder DATE OF EXAM: 07/08/2022 COMPARISON: CLINICAL HISTORY: karlee. Abnormal labs. Ascites. EXAM MEASUREMENTS: Right Kidney: 10.6 x 5.0 x 4.6 cm Left Kidney: 10.4 x 4.9 x 5.3 cm Multiple grayscale and color Doppler ultrasound images of the bilateral kidneys, urinary bladder, and spleen were obtained. Right Kidney: Limited visualization due to patient position. Left Kidney: Dromedary hump seen. Bladder: distended, anechoic Bilateral Jets not seen Urinary bladder is mildly distended and anechoic in appearance. Both ureters just not visualized. Asc ites demonstrated. There is no evidence for hydronephrosis at this point in time. Visualization of the right kidney. No nephrolithiasis is seen. Left mid kidney Dromedary hump demonstrated. No masses are identified. Th e spleen is mildly enlarged measuring 13.8 cm in greatest dimension. IMPRESSION: 1. No hydronephrosis or nephrolithiasis. 2. Ascites. 3. Mild splenomegaly.
[2022-07-08] MEDS: MORPHINE SULFATE 2 MG/ML SYRINGE IVP PRN (19:55)
[2022-07-08] MEDS ORDERED: POTASSIUM CHLORIDE ER 20 MEQ TAB.ER PO ONE (22:59)
[2022-07-09] MEDS: MORPHINE SULFATE 2 MG/ML SYRINGE IVP PRN (00:09)
[2022-07-09] MEDS: ALPRAZolam 0.25 MG TAB PO PRN ×2 (01:04→17:23)
[2022-07-09] MEDS: traMADol 50 MG TAB PO SCH ×2 (01:06→10:42)
[2022-07-09] MEDS: MORPHINE SULFATE 4 MG/ML SYRINGE IVP PRN ×4 (02:15→20:20)
[2022-07-09] MEDS: MIDODRINE 5 MG TAB PO SCH ×3 (06:15→17:23)
[2022-07-09 08:04] LABS: African American GFR (CKD) >90 (>60 ml/min/1.73 sqM); Anion Gap 4 mmol/L; Blood Urea Nitrogen 26 mg/dL (7-17); Carbon Dioxide 30 mmol/L (22-30); Chloride 106 mmol/L (98-107); Glucose 131 mg/dL (74-99); Magnesium 1.9 mg/dL (1.6-2.3); Non-African American GFR(CKD) >90 (>60 ml/min/1.73 sqM); Sodium 140 mmol/L (137-145)
[2022-07-09] MEDS: FUROSEMIDE 40 MG TAB PO SCH (10:37)
[2022-07-09] MEDS: SPIRONOLACTONE 25 MG TAB PO SCH (10:38)
[2022-07-09] MEDS: ONDANSETRON 4 MG/2 ML VIAL IVP PRN (10:40)
--- NOTE | 2022-07-09 10:44 | P.PN ---
Subjective Patient is seen in follow-up for acute kidney injury. Renal function back to baseline. Has been voiding. Requesting pain medication. Vital signs are stable. General: No acute distress. HEENT: Head exam is unremarkable. LUNGS: No audible rhonchi or wheezes. HEART: Rate and Rhythm are regular. ABDOMEN: No distention. EXTREMITITES: No edema. Objective - Vital Signs Vital signs: Vital Signs Temp 98.0 F 07/09/22 07:05 Pulse 79 07/09/22 07:05 Resp 15 07/09/22 07:05 BP 96/60 07/09/22 07:05 Pulse Ox 98 07/09/22 08:37 FiO2 Intake & Output 07/08/22 07/09/22 07/09/22 18:59 06:59 18:59 Intake Total 50 110 Output Total 200 Balance 50 -90 Weight 68.039 kg Intake: IV 50 10 Invasive Line 4 10 cefTRIAXone 1 gm In 50 Sodium Chloride 0.9% 50 ml @ 100 mls/hr IVPB Q24HR [facility] Rx#:[id number] Oral 100 Output: Urine 200 Other: Voiding Method Bedside Commode Bedside Commode Toilet Bedside Commode - Labs CBC & Chem 7: 07/08/22 14:30 07/09/22 06:59 Labs: Abnormal Lab Results - Last 24 Hours (Table) 07/08/22 07/08/22 07/08/22 Range/Units 14:30 14:30 14:30 WBC 2.9 L (3.8-10.6) k/uL RBC 2.94 L (3.80-5.40) m/uL Hgb 10.3 L (11.4-16.0) gm/dL Hct 30.7 L (34.0-46.0) % MCV 104.6 H (80.0-100.0) fL MCH 35.2 H (25.0-35.0) pg Plt Count 45 L (150-450) k/uL Lymphocytes # (Manual) 0.61 L (1.0-4.8) k/uL PT (9.0-12.0) sec INR (<1.2) Potassium 3.4 L (3.5-5.1) mmol/L Carbon Dioxide 31 H (22-30) mmol/L BUN 29 H (7-17) mg/dL Glucose 101 H (74-99) mg/dL Calcium 8.0 L (8.4-10.2) mg/dL Total Bilirubin 2.1 H (0.2-1.3) mg/dL Ammonia 31 H (<30) umol/L Total Protein 5.8 L (6.3-8.2) g/dL Albumin 2.7 L (3.5-5.0) g/dL 07/08/22 07/09/22 Range/Units 14:30 06:59 WBC (3.8-10.6) k/uL RBC (3.80-5.40) m/uL Hgb (11.4-16.0) gm/dL Hct (34.0-46.0) % MCV (80.0-100.0) fL MCH (25.0-35.0) pg Plt Count (150-450) k/uL Lymphocytes # (Manual) (1.0-4.8) k/uL PT 13.3 H (9.0-12.0) sec INR 1.3 H (<1.2) Potassium (3.5-5.1) mmol/L Carbon Dioxide (22-30) mmol/L BUN 26 H (7-17) mg/dL Glucose 131 H (74-99) mg/dL Calcium 8.0 L (8.4-10.2) mg/dL Total Bilirubin (0.2-1.3) mg/dL Ammonia (<30) umol/L Total Protein (6.3-8.2) g/dL Albumin (3.5-5.0) g/dL Microbiology - Last 24 Hours (Table) 07/07/22 10:19 Gram Stain - Preliminary Paracentesis Fluid Body Fluid Culture - Preliminary 07/04/22 09:00 Blood Culture - Preliminary Blood No Growth after 96 hours 07/04/22 08:45 Blood Culture - Preliminary Blood No Growth after 96 hours 07/07/22 10:19 Anaerobic Culture - Preliminary Paracentesis Fluid Assessment and Plan Plan: Assessment: 1. Acute kidney injury secondary to hemodynamic ATN. Baseline creatinine is 0.6. Creatinine peaked at 2.64 this admission and is down to 0.6 today. No hydronephrosis noted on ultrasound. 2. Liver cirrhosis with ascites. Likely hep C induced. Status post paracentesis with 3.7 L drained 07/07/2022. 3. Metabolic acidosis secondary to lactic acidosis. Improved. Plan: Maintain Lasix and spironolactone. Maintain midodrine. Continue to monitor renal function and urine output. Should follow up with GI to consider treatment options for hep C. There is also consult in for hospice.
[2022-07-09] MEDS ORDERED: HYDROcodone/APAP 10-325MG 1 EACH TAB PO PRN (12:54)
[2022-07-09] MEDS ORDERED: HYDROmorphone 2 MG TAB PO PRN (12:55)
--- NOTE | 2022-07-09 13:11 | P.PN ---
Subjective Progress Note Date: 07/09/22 The patient is a 56-year-old woman with history of chronic ascites/abdominal pain with esophageal varices/bending, COPD, gastroesophageal reflux disease. She states that over the past few weeks the abdominal distention has increased and it is causing pressure type pain. She has not noted fever or chills. No change in urination or bowel movements. It has been approximately 3 months since she had paracentesis. Blood will completed immediately reveals a WBC of 2.2, hemoglobin 14.1 and platelet count of 39, sodium 138, potassium 3.9, BUN/creatinine of 18/0.62 and blood glucose of 110 lactic acid is elevated at 3.2, total bilirubin is elevated at 8.1, AST/ALT within normal limits, CRP slightly elevated at 3.0. Patient remains hypotensive despite IV fluid hydration. Midodrine and albumin added with markedly improved blood pressures. 07/07 Paracentesis performed. 07/08 The patient is lying in bed holding her abdomen and appears to be uncomfortable. She reports 8/10 pain. She covered her her head initially with a blanket and did not want to talk. I told her I was there to help manage her symptoms and get her more comfortable. She was then a little more willing to open up. She states she had a paracentesis yesterday, but it did not help her pain. Pain medications adjusted: increased [place] to 7.5, discontinued Morphine due to recent issues with hypotension. Continue Tramadol and Fentanyl as ordered. The patient states that she is very anxious and afraid. She states she does not want to hear any bad news. She is afraid of dying. She is worried that if she is not here there will not be anyone to care for her disabled son. She is emotional, crying and shaky. Xanax ordered prn. The patient states she has not been eating well. She has a sore throat and does not have an appetite. She likes ensure and the idea of a magic cup to supplement her diet. Attempted to address code status again. She refused stating that she does not want to talk about that and covered her head. It was explained that it is important to know how she would want us to care for her in the case of an emergency. She refuses to talk anymore. Objective - Vital Signs Vital signs: Vital Signs Temp 97.6 F 07/09/22 11:07 Pulse 72 07/09/22 11:07 Resp 15 07/09/22 11:07 BP 117/77 07/09/22 11:07 Pulse Ox 95 07/09/22 11:07 FiO2 Intake & Output 07/08/22 07/09/22 07/09/22 18:59 06:59 18:59 Intake Total 50 110 Output Total 200 Balance 50 -90 Weight 68.039 kg Intake: IV 50 10 Invasive Line 4 10 cefTRIAXone 1 gm In 50 Sodium Chloride 0.9% 50 ml @ 100 mls/hr IVPB Q24HR [facility] Rx#:[id number] Oral 100 Output: Urine 200 Other: Voiding Method Bedside Commode Bedside Commode Toilet Bedside Commode # Voids 1 - Exam General: Well developed, well nourished. No acute distress. Chronically ill appearing HEENT: Head is atraumatic, normocephalic. Sclera are clear. Mucus membranes dry. CV: Heart regular in rate and rhythm positive S1 and S2 Lungs: Respirations even and nonlabored. Abdomen/GI: Soft, generalized tenderness Musculoskeletal/ Extremities: No contractures or gross atrophy. + generalized weakness Skin: Warm and dry Neurologic: Awake, alert and oriented times 3. CN II-XII grossly intact. No focal deficits. - Labs CBC & Chem 7: 07/08/22 14:30 07/09/22 06:59 Labs: Abnormal Lab Results - Last 24 Hours (Table) 07/08/22 07/08/22 07/08/22 Range/Units 14:30 14:30 14:30 WBC 2.9 L (3.8-10.6) k/uL RBC 2.94 L (3.80-5.40) m/uL Hgb 10.3 L (11.4-16.0) gm/dL Hct 30.7 L (34.0-46.0) % MCV 104.6 H (80.0-100.0) fL MCH 35.2 H (25.0-35.0) pg Plt Count 45 L (150-450) k/uL Lymphocytes # (Manual) 0.61 L (1.0-4.8) k/uL PT (9.0-12.0) sec INR (<1.2) Potassium 3.4 L (3.5-5.1) mmol/L Carbon Dioxide 31 H (22-30) mmol/L BUN 29 H (7-17) mg/dL Glucose 101 H (74-99) mg/dL Calcium 8.0 L (8.4-10.2) mg/dL Total Bilirubin 2.1 H (0.2-1.3) mg/dL Ammonia 31 H (<30) umol/L Total Protein 5.8 L (6.3-8.2) g/dL Albumin 2.7 L (3.5-5.0) g/dL 07/08/22 07/09/22 Range/Units 14:30 06:59 WBC (3.8-10.6) k/uL RBC (3.80-5.40) m/uL Hgb (11.4-16.0) gm/dL Hct (34.0-46.0) % MCV (80.0-100.0) fL MCH (25.0-35.0) pg Plt Count (150-450) k/uL Lymphocytes # (Manual) (1.0-4.8) k/uL PT 13.3 H (9.0-12.0) sec INR 1.3 H (<1.2) Potassium (3.5-5.1) mmol/L Carbon Dioxide (22-30) mmol/L BUN 26 H (7-17) mg/dL Glucose 131 H (74-99) mg/dL Calcium 8.0 L (8.4-10.2) mg/dL Total Bilirubin (0.2-1.3) mg/dL Ammonia (<30) umol/L Total Protein (6.3-8.2) g/dL Albumin (3.5-5.0) g/dL Microbiology - Last 24 Hours (Table) 07/04/22 09:00 Blood Culture - Preliminary Blood No Growth after 120 hours 07/04/22 08:45 Blood Culture - Preliminary Blood No Growth after 120 hours 07/07/22 10:19 Gram Stain - Preliminary Paracentesis Fluid Body Fluid Culture - Preliminary 07/07/22 10:19 Anaerobic Culture - Preliminary Paracentesis Fluid Assessment and Plan Assessment: Symptoms * Pain - 6/10 abdominal pain, [place] 10/325 Q6H prn, Hydromorphone 2mg Q6H prn, Morphine 4mg Q4H prn * Fatigue - generalized weakness and fatigue, continue Proamatine * SOB - yes, with activity. Continue Lasix and Aldactone. On 2L NC * Insomnia - No * N/V - No * Anxiety - Yes, Xanax bid prn * Depression - No * Confusion - No * Agitation - No * Hallucinations - No * Appetite/weight loss - decreased appetite, continue heart healthy diet, ensure supplements TIDWM, and magic cups BIDWM * Dysphagia - No * Constipation - LBM 4 days ago, pt states that is normal for her, Senokot-s prn * Incontinence - Occasional * Itch - No * Cough - no * Thrush - Nystatin swish and swallow * Dry nose - add humidification to O2 Plan: Summary/Goals - The patient is sitting up in a chair today. She reports feeling better today. She is not anxious or emotional. She still has a poor appetite but likes the ensure supplements and the magic cup. She reports mouth and throat pain. She appears to have thrush. Nystatin swish and swallow ordered. Still no bowel movements, encouraged her to take the senokot that is ordered. We had a long discussion regarding her pain medication. It was explained to her that we have to be careful with pain medication as it can cause hypotension. Her BP has been marginal. Her home pain medications, Hydromorphone and [place], were ordered with Morphine for breakthrough pain. The patient exhibits some drug seeking behaviors. She does not want to talk about her goals of care or code status. Advanced Directives - None on file Code Status - Full Code Thank you for this consultation Alaina Blair [facility] Palliative [facility] [id number] Email: [email or web address]
[2022-07-09] MEDS: NYSTATIN 100,000 UNIT/ML SUSP 500,000 UNIT/5 ML CUP PO SCH ×3 (17:23→20:22)
[2022-07-09 17:27] VITALS: RESP 16
--- NOTE | 2022-07-09 18:08 | CT ---
EXAMINATION TYPE: CT abdomen pelvis wo con CT DLP: 586.8 mGycm, Automated exposure control for dose reduction was used. DATE OF EXAM: 07/09/2022 4:59 PM COMPARISON: CT abdomen pelvis most recent from 03/19/2022 CLINICAL INDICATION:Female, 56 years old with history of pain; cirrhosis TECHNIQUE: Axial CT of the abdomen and pelvis. Sagittal and coronal reformats were created on a Neul workstation. Contrast used: None Oral contrast used: without Oral Contrast FINDINGS: LOWER CHEST: Small right pleural effusion. ABDOMEN LIVER: Cirrhotic liver. No obvious mass on this noncontrast examination. GALLBLADDER AND BILE DUCTS: Multiple gallstones are seen in the gallbladder lumen. PANCREAS: Unremarkable. SPLEEN: Unremarkable. ADRENAL GLANDS: Unremarkable. KIDNEYS AND URETERS: Nonobstructing 5 mm right renal calculus. PELVIS BLADDER: Unremarkable REPRODUCTIVE: Unremarkable. ABDOMEN & PELVIS STOMACH AND BOWEL: No evidence of bowel obstruction. There is circumferential fat stranding changes a round the rectum. No evidence of wall thickening. PERITONEUM/RETROPERITONEUM: Moderate amount of free fluid is seen throughout the abdomen. No evidence for pneumoperitoneum. The peritoneal surface has a more prominent appearance on today's exam includi ng series 201 image 32, image 47, 48 and in the pelvis image 87. VASCULATURE: No evidence of aortic aneurysm. MUSCULOSKELETAL: No acute osseous abnormalities LYMPH NODES: No gross evidence for lymphadenopathy. SOFT TISSUE/ABDOMINAL WALL: Unremarkable IMPRESSION: 1. Moderate ascites with more prominence of the peritoneal surface with thickening suggested on seri es 201 image 32. Unclear if this is due to less distention on today's exam. There was a paracentesis on 07/07/2022 correlate with fluid analysis is performed. If not performed consider performing fluid an alysis for further evaluation. 2. Hepatic cirrhosis with evidence of portal hypertension. 3. Circumferential fat stranding around the rectum correlate for proctitis. 4. Cholelithiasis. 5. Nonobstructing right renal calculus.
--- NOTE | 2022-07-09 20:31 | PN ---
PROGRESS NOTE DATE OF SERVICE: 07/08/2022 CHIEF COMPLAINT: Abdominal pain, cirrhosis and ascites. HISTORY OF PRESENT ILLNESS: This lady is continuing to complain bitterly of generalized abdominal pain. She has had peritonitis in the past. At the present time, her temperature is normal, she is not vomiting and her white count is not elevated. PHYSICAL EXAMINATION: CHEST: Demonstrates poor respiratory effort. CARDIAC: Normal. ABDOMEN: Protuberant and she will not allow an exam. IMPRESSION: 1. Acute abdominal pain. 2. Possible peritonitis. 3. Cirrhosis. 4. History of hepatitis. 5. Chronic obstructive pulmonary disease. PLAN: Continue with analgesics and continue to monitor vital signs and laboratory studies. Ultrasound does not demonstrate any intraabdominal obvious pathology. MMODL / IJN: [id number] /
[2022-07-10] MEDS: MORPHINE SULFATE 4 MG/ML SYRINGE IVP PRN ×2 (00:27→04:12)
[2022-07-10 04:47] VITALS: BP 110/72; PULSE 87; TEMP 97.6
--- NOTE | 2022-07-12 11:26 | PN ---
PROGRESS NOTE DATE OF SERVICE: 07/09/2022 CHIEF COMPLAINT: Acute abdominal pain, cirrhosis, and ascites. HISTORY OF PRESENT ILLNESS: This lady continues to complain bitterly of a generalized abdominal pain. This is similar to when she had peritonitis. However, she is not vomiting and she does not have a fever, elevated white count, etc. PHYSICAL EXAMINATION: GENERAL: She appears to be chronically ill. CHEST: Clear. CARDIAC: Normal. ABDOMEN: Distended and fairly firm with ascites. She has generalized tenderness and she does not allow a complete exam. IMPRESSION: 1. Abdominal pain. 2. Cirrhosis. 3. Ascites. 4. Possible peritonitis. PLAN: 1. Repeat laboratory studies. 2. CT of the abdomen. MMODL / IJN: [id number] /
--- NOTE | 2022-07-12 15:01 | PN ---
PROGRESS NOTE DATE OF SERVICE: 07/07/2022 CHIEF COMPLAINT: Abdominal pain and cirrhosis. HISTORY OF PRESENT ILLNESS: This lady is still complaining of a great deal of abdominal discomfort. She is very tender. Her white count is normal and she is not febrile. PHYSICAL EXAMINATION: GENERAL: She looks chronically ill. She is pale. CHEST: Clear. CARDIAC: Normal. ABDOMEN: Protuberant, slightly firm and very tender, particularly in the lower quadrants. Bowel sounds are heard. IMPRESSION: 1. Persistent abdominal pain. 2. Cirrhosis. 3. Ascites. 4. Chronic obstructive pulmonary disease. 5. History of carcinoma of the breast. PLAN: Continue to monitor her abdominal pain. She is requesting increased analgesics and they will be administered. MMODL / IJN: [id number] /
== END 2022-07-10 06:25 | disposition left against medical advice (07) | DRG 432 ==
LOC: EC 16:16 → OBSVTOIN 21:08 → 6NMEDSUR 21:08 → 3SCARD 07-04 13:56
PROVIDERS: ADMIT Family Medicine; ATTEND Family Medicine
PROC: 0W9G3ZZ Drainage of Peritoneal Cavity, Percutaneous Approach (ICD-10-PCS; principal; 2022-07-07)
DX: K74.69 Other cirrhosis of liver (principal); K65.9 Peritonitis, unspecified; N17.0 Acute kidney failure with tubular necrosis; R18.8 Other ascites; I85.00 Esophageal varices without bleeding; E87.29 Other acidosis; B37.0 Candidal stomatitis; K72.90 Hepatic failure, unspecified without coma; D70.4 Cyclic neutropenia; I95.9 Hypotension, unspecified; D69.59 Other secondary thrombocytopenia; J44.9 Chronic obstructive pulmonary disease, unspecified; F10.10 Alcohol abuse, uncomplicated; H91.93 Unspecified hearing loss, bilateral; K21.9 Gastro-esophageal reflux disease without esophagitis; F17.210 Nicotine dependence, cigarettes, uncomplicated; J02.9 Acute pharyngitis, unspecified; F41.9 Anxiety disorder, unspecified; K59.00 Constipation, unspecified; Z53.29 Procedure and treatment not carried out because of patient's decision for other reasons; G89.29 Other chronic pain; E86.9 Volume depletion, unspecified; R32 Unspecified urinary incontinence; R79.1 Abnormal coagulation profile; Z92.21 Personal history of antineoplastic chemotherapy; Z92.3 Personal history of irradiation; Z79.899 Other long term (current) drug therapy; Z87.19 Personal history of other diseases of the digestive system; Z63.6 Dependent relative needing care at home; Z80.1 Family history of malignant neoplasm of trachea, bronchus and lung; Z86.19 Personal history of other infectious and parasitic diseases
CPT/HCPCS: 36415; 49083; 71046; 74176; 76705; 76770; 80048; 80053; 81001; 82140; 82150; 82945; 83605; 83615; 83690; 83735; 84157; 85025; 85049; 85610; 86140; 87040; 87070; 87075; 87205; 89050; 94760; 96361; 96365; 96367; 96375; 96376; 99285

== ENCOUNTER 2023-01-25 19:22 | Emergency (ER) | payer MEDICARE, OTHER ==
[2023-01-25 19:50] VITALS: RESP 18; TEMP 98.2
[2023-01-25] MEDS ORDERED: SODIUM CHLORIDE 0.9% 1,000 ML IV STA (21:06)
[2023-01-25] MEDS ORDERED: HYDROmorphone 1 MG/ML 1 ML SYRINGE IVP STA ×2 (21:06→23:02)
[2023-01-25] MEDS ORDERED: ONDANSETRON 4 MG/2 ML VIAL IVP STA (21:06)
--- NOTE | 2023-01-25 21:08 | ED ---
Abdominal Pain HPI - General Chief Complaint: Abdominal Pain Stated Complaint: vomiting,pain Source: patient Mode of arrival: wheelchair Limitations: no limitations - History of Present Illness Initial Comments: The patient is a 57-year-old female with a history of chronic pain, cirrhosis, history of breast cancer presents emergency room with complaints of right-sided abdominal pain that started earlier today. Patient has had nausea but denies any vomiting. She denies any fevers dysuria, hematuria, cause patient or diarrhea. Patient has had paracentesis in the past but states that she is not distended where she needs one at this time. - Related Data Home Medications Medication Instructions Recorded Confirmed HYDROmorphone [Dilaudid] 2 mg PO Q6H PRN 09/06/19 07/03/22 Hydrocodone/Acetaminophen [Foster 1 tab PO Q6H PRN 09/06/19 07/03/22 10-325] Naloxone HCl [Narcan] 4 mg NASAL DIRECTED PRN 04/08/22 07/03/22 Spironolactone [Aldactone] 25 mg PO DAILY 07/03/22 07/03/22 Previous Rx's Medication Instructions Recorded Furosemide [Lasix] 40 mg PO DAILY #30 tab 04/11/22 Dicyclomine [Bentyl] 20 mg PO TID #30 tablet 01/25/23 Ondansetron Odt [Zofran Odt] 4 mg PO Q8HR PRN #15 tab 01/25/23 Allergies Allergy/AdvReac Type Severity Reaction Status Date / Time No Known Allergies Allergy Verified 01/25/23 19:48 Review of Systems ROS Statement: Those systems with pertinent positive or pertinent negative responses have been documented in the HPI. ROS Other: All systems not noted in ROS Statement are negative. Past Medical History Past Medical History: Cancer, COPD, GERD/Reflux, GI Bleed, Hearing Disorder / Deafness, Liver Disease Additional Past Medical History / Comment(s): Hepatitis C, intractable ascities with multiple paracentesis, cirrhosis, peritonitis, pancytopenia, vertigo once; multiple upper GI bleeds, esophageal varicies/esophageal banding, left breast cancer had chemo last on 09-12-16-did not tolerate-completed only 3 cycles-then it was stopped/received radiation treatments/pt states she did not follow up and so did not have surgery lt ear deafness, R ear [place], occasional R leg edema. History of Any Multi-Drug Resistant Organisms: None Reported Past Surgical History: Adenoidectomy, Breast Surgery, Tonsillectomy Additional Past Surgical History / Comment(s): Multiple paracentesises, EGDs, esophageal banding, right chest mediport since removed, l breast bx., Past Anesthesia/Blood Transfusion Reactions: No Reported Reaction Additional Past Anesthesia/Blood Transfusion Reaction / Comment(s): blood transfusions- no reaction Past Psychological History: Anxiety Smoking Status: Current some day smoker, Light tobacco smoker Past Alcohol Use History: None Reported Past Drug Use History: None Reported - Past Family History Mother Family Medical History: Cancer Additional Family Medical History / Comment(s): of lung ca at the age of 59yrs. She was a smoker. Father Family Medical History: Myocardial Infarction (MS) Additional Family Medical History / Comment(s): from 2nd heart attack at the age of 59yrs. General Exam Limitations: no limitations General appearance: alert, in no apparent distress Head exam: Present: atraumatic Eye exam: Present: normal appearance, PERRL ENT exam: Present: normal exam Neck exam: Present: normal inspection Respiratory exam: Present: normal lung sounds bilaterally Cardiovascular Exam: Present: regular rate, normal rhythm GI/Abdominal exam: Present: soft, other (Mild abdominal distention, no rebound tenderness, no peritoneal signs, right lower abdominal pain with palpation.) Extremities exam: Present: full ROM Neurological exam: Present: alert, oriented X3, CN II-XII intact Psychiatric exam: Present: normal affect, normal mood Skin exam: Present: warm, dry Course Vital Signs 01/25/23 01/25/23 01/25/23 19:47 21:25 22:18 Temperature 98.2 F Pulse Rate 80 82 93 Respiratory 18 18 18 Rate Blood Pressure 169/97 154/65 135/67 O2 Sat by Pulse 96 98 97 Oximetry - Reevaluation(s) Reevaluation #1: 01/25/23 23:05 Patient is feeling better after IV fluids, pain medication nausea medicine emergency room. I discussed lab and imaging results with patient. Patient has no leukocytosis. She is afebrile emergency room and has had no further vomiting. Her computed tomography scan shows colitis which is likely viral in nature. We will forego antibiotics at this time however patient understands if she develops worsening pain and a fever she is to return to the emergency room for reevaluation. Patient is on chronic pain medication including Dilaudid as an outpatient. I will add and Bentyl and nausea medicine at home. I discussed following up with her GI specialist as well. Computed tomography scan shows stable cirrhosis and patient also agreed that she does not need a paracentesis for the cirrhosis and ascites at this time. Again patient has no palpable abdominal mass. She has no peritoneal signs at this time. Medical Decision Making - Medical Decision Making Was pt. sent in by a medical professional or institution (, PA, [employer], urgent c are, hospital, or long-term...) When possible be specific @ -[No] Did you speak to anyone other than the patient for history (EMS, parent, family, police, friend...)? What history was obtained from this source @ -[No] Did you review nursing and triage notes (agree or disagree)? Why? @ -[I reviewed and agree with nursing and triage notes] Were old charts reviewed (outside hosp., previous admission, EMS record, old EKG, old radiological studies, urgent care reports/EKG's, long-term records)? Report findings @ -Yes old charts are reviewed. Patient's labs and imaging from previous hospital stays were evaluated. Differential Diagnosis (chest pain, altered mental status, abdominal pain women, abdominal pain men, vaginal bleeding, weakness, fever, dyspnea, syncope, headache, dizziness, GI bleed, back pain, seizure, CVA, palpatations, mental health, musculoskeletal)? @ -Bowel obstruction, cirrhosis, ascites, colitis, diverticulitis, appendicitis, gastroenteritis, urinary tract infection. EKG interpreted by me (3pts min.). @ -[As above] X-rays interpreted by me (1pt min.). @ -[None done] CT interpreted by me (1pt min.). @ -Computed tomography scan shows inflammation in the lower colon and int estines, there is no signs of a perforated bowel, mass or obstruction at this time. Radiology report is pending for confirmation of acute changes U/S interpreted by me (1pt. min.). @ -[None done] What testing was considered but not performed or refused? (CT, X-rays, U/S, labs)? Why? @ -[None] What meds were considered but not given or refused? Why? @ -Patient is no fever no leukocytosis therefore we will not give antibiotics at this time however she is to return to the emergency room for development of any worsening pain or fever for reevaluation. Did you discuss the management of the patient with other professionals (professionals i.e. , PA, [employer], lab, RT, psych nurse, social service assistant, upholstered goods crafter, teacher, global chief creative officer, child support case officer)? Give summary @ -I discussed patient's symptoms are And management with attending ED physician Dr. Khanna today. Was smoking cessation discussed for >3mins.? @ -[No] Was critical care preformed (if so, how long)? @ -[No] Were there social determinants of health that impacted care today? How? (Homelessness, low income, unemployed, alcoholism, drug addiction, transportation, low edu. Level, literacy, decrease access to med. care, group home, rehab)? @ -[No] Was there de-escalation of care discussed even if they declined (Discuss DNR or withdrawal of care, Hospice)? DNR status @ -[No] What co-morbidities impacted this encounter? (DM, HTN, Smoking, COPD, CAD, Cancer, CVA, ARF, Chemo, Hep., AIDS, mental health diagnosis, sleep apnea, m orbid obesity)? @ -History of breast cancer, cirrhosis, ascites, chronic pain Was patient admitted / discharged? Hospital course, mention meds given and route, prescriptions, significant lab abnormalities, going to OR and other pertinent info. @ -Patient is well-appearing in the emergency room. She is nontoxic appearing. There is no peritoneal signs on physical exam. She has no leukocytosis she is afebrile and not tachycardic therefore she is stable to follow up as an outpatient with GI specialist. I discussed signs return to the emergency room. She understands risks of treatment discharge plan. She has pain medication at home that she may take them a lot and Bentyl and Zofran as needed. Undiagnosed new problem with uncertain prognosis? @ -[No] Drug Therapy requiring intensive monitoring for toxicity (Heparin, Nitro, Insulin, Cardizem)? @ -[No] Were any procedures done? @ -[No] Diagnosis/symptom? @ -Colitis, abdominal pain Acute, or Chronic, or Acute on Chronic? @ -Acute Uncomplicated (without systemic symptoms) or Complicated (systemic symptoms)? @ -[default] Side effects of treatment? @ -[No] Exacerbation, Progression, or Severe Exacerbation? @ -[No] Poses a threat to life or bodily function? How? (Chest pain, [place], MS, pneumonia, PE, COPD, DKA, ARF, appy, cholecystitis, CVA, Diverticulitis, Homicidal, Suicidal, threat to staff... and all critical care pts) @ -[No] - Lab Data Result diagrams: 01/25/23 21:15 01/25/23 21:15 Lab Results 01/25/23 01/25/23 Range/Units 21:15 21:15 WBC 2.9 L (3.8-10.6) k/uL RBC 4.00 (3.80-5.40) m/uL Hgb 14.6 (11.4-16.0) gm/dL Hct 43.6 (34.0-46.0) % MCV 109.0 H (80.0-100.0) fL MCH 36.4 H (25.0-35.0) pg MCHC 33.4 (31.0-37.0) g/dL RDW 14.0 (11.5-15.5) % Plt Count 45 L (150-450) k/uL MPV 11.1 Neutrophils % 61 % Lymphocytes % 25 % Monocytes % 9 % Eosinophils % 2 % Basophils % 1 % Neutrophils # 1.7 (1.3-7.7) k/uL Lymphocytes # 0.7 L (1.0-4.8) k/uL Monocytes # 0.3 (0-1.0) k/uL Eosinophils # 0.1 (0-0.7) k/uL Basophils # 0.0 (0-0.2) k/uL Macrocytosis Marked A Sodium 139 (137-145) mmol/L Potassium 3.8 (3.5-5.1) mmol/L Chloride 108 H (98-107) mmol/L Carbon Dioxide 21 L (22-30) mmol/L Anion Gap 10 mmol/L BUN 12 (7-17) mg/dL Creatinine 0.52 (0.52-1.04) mg/dL Est GFR (CKD-EPI)AfAm >90 (>60 ml/min/1.73 sqM) Est GFR (CKD-EPI)NonAf >90 (>60 ml/min/1.73 sqM) Glucose 106 H (74-99) mg/dL Calcium 9.1 (8.4-10.2) mg/dL Total Bilirubin 3.2 H (0.2-1.3) mg/dL AST 42 H (14-36) U/L ALT 23 (4-34) U/L Alkaline Phosphatase 91 (38-126) U/L Total Protein 7.8 (6.3-8.2) g/dL Albumin 3.4 L (3.5-5.0) g/dL Lipase 81 (23-300) U/L - Radiology Data Radiology results: report reviewed, image reviewed Disposition Clinical Impression: Colitis, Acute abdominal pain, Ascites, Cirrhosis Disposition: HOME SELF-CARE Condition: Good Instructions (If sedation given, give patient instructions): Abdominal Pain (ED), Colitis (ED), Dicyclomine (By mouth) Additional Instructions: Return for any worsening abdominal pain, development of fevers or new concerning symptoms. Is patient prescribed a controlled substance at d/c from ED?: No When asked, does pt state using other controlled substances?: Yes If prescribed controlled substance>3 days was MAPS reviewed?: No If opioid is for acute pain is fill amount 7 days or less?: No Referrals: Mark Estrada MD [Primary Care Provider] - 1-2 days Time of Disposition: 23:15
[2023-01-25 21:45] LABS: ALT 23 U/L (4-34); AST 42 U/L (14-36); African American GFR (CKD) >90 (>60 ml/min/1.73 sqM); Albumin 3.4 g/dL (3.5-5.0); Alkaline Phosphatase 91 U/L (38-126); Anion Gap 10 mmol/L; Blood Urea Nitrogen 12 mg/dL (7-17); Calcium 9.1 mg/dL (8.4-10.2); Carbon Dioxide 21 mmol/L (22-30); Chloride 108 mmol/L (98-107); Glucose 106 mg/dL (74-99); Lipase 81 U/L (23-300); Non-African American GFR(CKD) >90 (>60 ml/min/1.73 sqM); Potassium 3.8 mmol/L (3.5-5.1); Sodium 139 mmol/L (137-145); Total Bilirubin 3.2 mg/dL (0.2-1.3); Total Protein 7.8 g/dL (6.3-8.2)
[2023-01-25 21:51] LABS: Basophils % (A) 1 %; Eosinophils # (A) 0.1 k/uL (0-0.7); Eosinophils % (A) 2 %; HCT 43.6 % (34.0-46.0); HGB 14.6 gm/dL (11.4-16.0); Lymphocytes # (A) 0.7 k/uL (1.0-4.8); Lymphocytes % (A) 25 %; MCH 36.4 pg (25.0-35.0); MCHC 33.4 g/dL (31.0-37.0); Macrocytosis Marked; Mean Platelet Volume 11.1; Monocytes # (A) 0.3 k/uL (0-1.0); Monocytes % (A) 9 %; Neutrophils # (A) 1.7 k/uL (1.3-7.7); Neutrophils % (A) 61 %; Platelet Count 45 k/uL (150-450); WBC 2.9 k/uL (3.8-10.6)
--- NOTE | 2023-01-25 21:58 | CT ---
EXAMINATION TYPE: CT abdomen pelvis w con CT DLP: 823.5 mGycm, Automated exposure control for dose reduction was used. DATE OF EXAM: 01/25/2023 9:46 PM COMPARISON: CT abdomen pelvis most recent from 07/09/2022 CLINICAL INDICATION:Female, 57 years old with history of right sided abdominal pain; RLQ pain, diarrh ea TECHNIQUE: Axial CT of the abdomen and pelvis. Sagittal and coronal reformats were created on a [employer] workstation. Contrast used:100 mL of Isovue 370 with IV Contrast, (none if empty) Oral contrast used: without Oral Contrast (none if empty) FINDINGS: LOWER CHEST: Unremarkable ABDOMEN LIVER: Shrunken liver appearance with caudate lobe hypertrophy. Nodular appearance to the contour. GALLBLADDER AND BILE DUCTS: Unremarkable. PANCREAS: Unremarkable. SPLEEN: Enlarged measuring up to 14.8 cm. ADRENAL GLANDS: Unremarkable. KIDNEYS AND URETERS: No evidence of hydronephrosis or renal calculus. The ureters are unremarkable. PELVIS BLADDER: Unremarkable REPRODUCTIVE: Unremarkable. ABDOMEN & PELVIS STOMACH AND BOWEL: No evidence of bowel obstruction. There may be mild Fat stranding changes around t he cecum and ascending colon. Relative nondistention of the colon extending from the transverse colon to the sigmoid colon. There may be some fat stranding changes around the sigmoid colon. PERITONEUM/RETROPERITONEUM: No evidence of pneumoperitoneum. There is a large amount of fluid in the abdomen VASCULATURE: No evidence of aortic aneurysm. Paraesophageal varices are noted. Varicosities are seen in the mid abdomen MUSCULOSKELETAL: No acute osseous abnormalities LYMPH NODES: No gross evidence for lymphadenopathy. SOFT TISSUE/ABDOMINAL WALL: Unremarkable IMPRESSION: 1. Mild inflammation changes around the cecum and ascending colon as well as the sigmoid colon. Андрей elate for colitis. Findings could represent hepatic colopathy changes in the setting of cirrhosis. 2. Hepatic cirrhosis with evidence of portal hypertension with large ascites, abdominal varices, and hepatomegaly. There is ascites has increased in size while other findings have a appearance on prior on 07/09/2022 given lack of IV contrast on prior. 3. Cholelithiasis.
[2023-01-25] MEDS ORDERED: ONDANSETRON ODT 4 MG TAB PO STA (22:47)
[2023-01-25 23:13] VITALS: BP 148/78; PULSE 91
== END 2023-01-25 23:31 | disposition home or self-care (01) ==
LOC: EC 19:22
DX: K52.9 Noninfective gastroenteritis and colitis, unspecified (principal); R18.8 Other ascites; K74.60 Unspecified cirrhosis of liver; J44.9 Chronic obstructive pulmonary disease, unspecified
CPT/HCPCS: 36415; 80053; 83690; 85025; 74177; 99285; 96374; 96375; 96376; 96361; J2405; J1170; Q9967

== ENCOUNTER 2023-01-26 17:56 | Emergency (ER) | payer MEDICARE, OTHER ==
[2023-01-26 18:09] VITALS: TEMP 98.4
[2023-01-26 19:43] LABS: Basophils % (A) 0 %; Eosinophils # (A) 0.1 k/uL (0-0.7); Eosinophils % (A) 2 %; HCT 40.1 % (34.0-46.0); HGB 13.2 gm/dL (11.4-16.0); Lymphocytes % (A) 36 %; MCH 36.1 pg (25.0-35.0); MCV 109.5 fL (80.0-100.0); Macrocytosis Marked; Mean Platelet Volume 8.9; Monocytes # (A) 0.2 k/uL (0-1.0); Monocytes % (A) 8 %; Neutrophils # (A) 1.4 k/uL (1.3-7.7); Neutrophils % (A) 51 %; RBC 3.66 m/uL (3.80-5.40); RDW 13.5 % (11.5-15.5); WBC 2.8 k/uL (3.8-10.6)
[2023-01-26 19:46] LABS: INR 1.2 (<1.2); Partial Thromboplastin Time 27.1 sec (22.0-30.0); Prothrombin Time 13.1 sec (10.0-12.5)
[2023-01-26] MEDS ORDERED: MORPHINE SULFATE 4 MG/ML SYRINGE IV STA (19:59)
[2023-01-26 20:02] LABS: ALT 19 U/L (4-34); AST 33 U/L (14-36); African American GFR (CKD) >90 (>60 ml/min/1.73 sqM); Alkaline Phosphatase 99 U/L (38-126); Amylase 36 U/L (30-110); Anion Gap 7 mmol/L; Blood Urea Nitrogen 13 mg/dL (7-17); C Reactive Protein 1.1 mg/dL (<1.0); Calcium 8.5 mg/dL (8.4-10.2); Carbon Dioxide 23 mmol/L (22-30); Chloride 108 mmol/L (98-107); Glucose 116 mg/dL (74-99); Lipase 135 U/L (23-300); Non-African American GFR(CKD) >90 (>60 ml/min/1.73 sqM); Potassium 3.4 mmol/L (3.5-5.1); Sodium 138 mmol/L (137-145); Total Bilirubin 1.5 mg/dL (0.2-1.3); Total Protein 6.8 g/dL (6.3-8.2)
[2023-01-26 20:15] VITALS: RESP 18
[2023-01-26 20:40] LABS: Platelet Count 50 k/uL (150-450)
[2023-01-26 21:30] LABS: Bacteria,Urine Occasional /hpf; Color,Urine Yellow; Mucus,Urine Rare /hpf; RBC,Urine 2 /hpf (0-5); Squamous Epithelial Cell,Urine 4 /hpf (0-4); WBC,Urine 1 /hpf (0-5)
[2023-01-26 21:31] LABS: Appearance,Urine Clear (Clear); Bilirubin,Urine Negative (Negative); Blood,Urine Trace (Negative); Glucose,Urine (UA) Negative (Negative); Ketones,Urine Negative (Negative); PH, Urine 5.5 (5.0-8.0); Protein,Urine Negative (Negative); Urobilinogen,Urine <2.0 mg/dL (<2.0)
[2023-01-26 21:32] LABS: Nitrite,Urine Negative (Negative)
[2023-01-26 21:36] LABS: Leukocyte Esterase,Urine Small (Negative)
[2023-01-26 22:03] VITALS: BP 156/87; PULSE 84
[2023-01-26] MEDS ORDERED: HYDROmorphone 0.5 MG/0.5 ML SYRINGE IVP STA (22:06)
--- NOTE | 2023-01-26 22:06 | ED ---
Abdominal Pain HPI - General Chief Complaint: Abdominal Pain Stated Complaint: ABD Pain Time Seen by Provider: 01/26/23 18:54 Source: patient Mode of arrival: ambulatory Limitations: no limitations - History of Present Illness Initial Comments: This patient is 57-year-old woman who presents to have evaluation of abdominal pain and diarrhea that is been going on for 2 days now. The patient states that she was seen here yesterday for similar, but not feeling any better. Pain is intermittent, diffuse, achy. She has not noted fever or chills. She states the loose stools cause burning at the anus. MD Complaint: abdominal pain Onset/Timin -: days(s) Location: diffuse Radiation: none Migration to: no migration Severity: moderate Quality: cramping, aching Consistency: intermittent Improves With: bowel movement Worsens With: nothing Associated Symptoms: denies other symptoms - Related Data Home Medications Medication Instructions Recorded Confirmed HYDROmorphone [Dilaudid] 2 mg PO Q6H PRN 09/06/19 01/26/23 Hydrocodone/Acetaminophen [[place] 1 tab PO Q6H PRN 09/06/19 01/26/23 10-325] Previous Rx's Medication Instructions Recorded Ondansetron Odt [Zofran Odt] 4 mg PO Q8HR PRN #15 tab 01/25/23 Loperamide HCl [Loperamide] 2 mg PO TID PRN #15 capsule 01/26/23 Allergies Allergy/AdvReac Type Severity Reaction Status Date / Time No Known Allergies Allergy Verified 01/28/23 15:53 Review of Systems ROS Statement: Those systems with pertinent positive or pertinent negative responses have been documented in the HPI. ROS Other: All systems not noted in ROS Statement are negative. Constitutional: Denies: fever, chills, weakness Respiratory: Denies: cough, dyspnea Cardiovascular: Denies: chest pain, palpitations Gastrointestinal: Reports: abdominal pain, diarrhea. Denies: nausea, vomiting, constipation, melena, hematochezia Genitourinary: Denies: dysuria, hematuria Musculoskeletal: Denies: back pain Skin: Denies: rash Neurological: Denies: headache, weakness, numbness Past Medical History Past Medical History: Cancer, COPD, GERD/Reflux, GI Bleed, Hearing Disorder / Deafness, Liver Disease Additional Past Medical History / Comment(s): Hepatitis C, intractable ascities with multiple paracentesis, cirrhosis, peritonitis, pancytopenia, vertigo once; multiple upper GI bleeds, esophageal varicies/esophageal banding, left breast cancer had chemo last on 09-12-16-did not tolerate-completed only 3 cycles-then it was stopped/received radiation treatments/pt states she did not follow up and so did not have surgery lt ear deafness, R ear [place] [employer] [employer] [place], occasional R leg edema. History of Any Multi-Drug Resistant Organisms: None Reported Past Surgical History: Adenoidectomy, Breast Surgery, Tonsillectomy Additional Past Surgical History / Comment(s): Multiple paracentesises, EGDs, esophageal banding, right chest mediport since removed, l breast bx., Past Anesthesia/Blood Transfusion Reactions: No Reported Reaction Additional Past Anesthesia/Blood Transfusion Reaction / Comment(s): blood transfusions- no reaction Past Psychological History: Anxiety Smoking Status: Current some day smoker, Light tobacco smoker Past Alcohol Use History: None Reported Past Drug Use History: None Reported - Past Family History Mother Family Medical History: Cancer Additional Family Medical History / Comment(s): of lung ca at the age of 59yrs. She was a smoker. Father Family Medical History: Myocardial Infarction ([place]) Additional Family Medical History / Comment(s): from 2nd heart attack at the age of 59yrs. General Exam Limitations: no limitations General appearance: alert, in no apparent distress Head exam: Present: atraumatic, normocephalic Eye exam: Present: normal appearance. Absent: scleral icterus, conjunctival injection Neck exam: Present: normal inspection Respiratory exam: Present: normal lung sounds bilaterally. Absent: respiratory distress, wheezes, rales, rhonchi, stridor, accessory muscle use Cardiovascular Exam: Present: regular rate, normal rhythm, normal heart sounds. Absent: systolic murmur, diastolic murmur, rubs, gallop GI/Abdominal exam: Present: soft, other (Exam consistent with moderate ascites. No findings concerning for peritonitis). Absent: distended, tenderness, guarding, rebound, rigid, mass, pulsatile mass, hernia Extremities exam: Present: normal inspection, normal capillary refill, pedal edema. Absent: calf tenderness Back exam: Present: normal inspection. Absent: CVA tenderness (R), CVA tenderness (L) Neurological exam: Present: alert Skin exam: Present: warm, dry, intact, normal color. Absent: rash Course Vital Signs 01/26/23 01/26/23 01/26/23 18:04 20:00 22:01 Temperature 98.4 F Pulse Rate 102 H 75 84 Respiratory 20 18 18 Rate Blood Pressure 173/91 148/93 156/87 O2 Sat by Pulse 96 99 96 Oximetry Medical Decision Making - Medical Decision Making Was pt. sent in by a medical professional or institution (, PA, INDUSTRIAL [employer] DES[employer]ER, urgent care, hospital, or [facility]...) When possible be specific @ -[No] Did you speak to anyone other than the patient for history (EMS, parent, family, police, friend...)? What history was obtained from this source @ -[No] Did you review nursing and triage notes (agree or disagree)? Why? @ -[I reviewed and agree with nursing and triage notes] Were old charts reviewed (outside hosp., previous admission, EMS record, old EKG, old radiological studies, urgent care reports/EKG's, [facility] records)? Report findings @ -[old charts were reviewed] previous Day visit including imaging reviewed Differential Diagnosis (chest pain, altered mental status, abdominal pain women, abdominal pain men, vaginal bleeding, weakness, fever, dyspnea, syncope, headache, dizziness, GI bleed, back pain, seizure, CVA, palpatations, mental health, musculoskeletal)? @ -[Differential Abdominal Pain Women: Appendicitis, Cholecystitis, diverticulosis, ischemic bowel, pancreatitis, hepatitis, UTI, gastroenteritis, AAA, incarcerated hernia, bowel obstruction, constipation, inflammatory bowel, hepatitis, peptic ulcer disease, splenic infarction, perforated viscus, vulvitis, ovarian torsion, PID, kidney stone, placenta abruption, this is not meant to be an all-inclusive list EKG interpreted by me (3pts min.). @ -[As above] X-rays interpreted by me (1pt min.). @ -[None done] CT interpreted by me (1pt min.). @ -[None done] U/S interpreted by me (1pt. min.). @ -[None done] What testing was considered but not performed or refused? (CT, X-rays, U/S, labs)? Why? @ -[CT abdomen considered but the patient did have one yesterday and no findings concerning for peritonitis What meds were considered but not given or refused? Why? @ -[None] Did you discuss the management of the patient with other professionals (professionals i.e. , PA, INDUST[employer] DESIGNER, lab, RT, psych nurse, rn social services, mounter, teacher, air support control officer, case management associate)? Give summary @ -[No] Was smoking cessation discussed for >3mins.? @ -[No] Was critical care preformed (if so, how long)? @ -[No] Were there social determinants of health that impacted care today? How? (Homelessness, low income, unemployed, alcoholism, drug addiction, transportation, low edu. Level, literacy, decrease access to med. care, [facility], rehab)? @ -[No] Was there de-escalation of care discussed even if they declined (Discuss DNR or withdrawal of care, Hospice)? DNR status @ -[No] What co-morbidities impacted this encounter? (DM, HTN, Smoking, COPD, CAD, Cancer, CVA, ARF, Chemo, Hep., AIDS, mental health diagnosis, sleep apnea, morbid obesity)? @ -[None] Was patient admitted / discharged? Hospital course, mention meds given and route, prescriptions, significant lab abnormalities, going to OR and other pertinent info. @ -[Patient is 57-year-old woman with chronic liver disease, here for abdominal pain. The workup does not reveal exact etiology. Patient feeling better following medication. We discussed appropriate further care and follow-up as well as return parameters. Undiagnosed new problem with uncertain prognosis? @ -[No] Drug Therapy requiring intensive monitoring for toxicity (Heparin, Nitro, Insulin, Cardizem)? @ -[No] Were any procedures done? @ -[No] Diagnosis/symptom? @ -Acute on chronic abdominal pain Acute, or Chronic, or Acute on Chronic? @ -[default] Uncomplicated (without systemic symptoms) or Complicated (systemic symptoms)? @ -[Uncomplicated Side effects of treatment? @ -[No] Exacerbation, Progression, or Severe Exacerbation? @ -[No] Poses a threat to life or bodily function? How? (Chest pain, [place], [place], pneumonia, PE, COPD, DKA, ARF, appy, cholecystitis, CVA, Diverticulitis, Homicidal, Suicidal, threat to staff... and all critical care pts) @ -[No] - Lab Data Result diagrams: 01/26/23 19:10 01/26/23 19:10 Lab Results 01/26/23 01/26/23 01/26/23 Range/Units 19:10 19:10 19:10 WBC 2.8 L (3.8-10.6) k/uL RBC 3.66 L (3.80-5.40) m/uL Hgb 13.2 (11.4-16.0) gm/dL Hct 40.1 (34.0-46.0) % MCV 109.5 H (80.0-100.0) fL MCH 36.1 H (25.0-35.0) pg MCHC 33.0 (31.0-37.0) g/dL RDW 13.5 (11.5-15.5) % Plt Count 50 L (150-450) k/uL MPV 8.9 Neutrophils % 51 % Lymphocytes % 36 % Monocytes % 8 % Eosinophils % 2 % Basophils % 0 % Neutrophils # 1.4 (1.3-7.7) k/uL Lymphocytes # 1.0 (1.0-4.8) k/uL Monocytes # 0.2 (0-1.0) k/uL Eosinophils # 0.1 (0-0.7) k/uL Basophils # 0.0 (0-0.2) k/uL Manual Slide Review Performed Macrocytosis Marked A PT 13.1 H (10.0-12.5) sec INR 1.2 H (<1.2) APTT 27.1 (22.0-30.0) sec Sodium 138 (137-145) mmol/L Potassium 3.4 L (3.5-5.1) mmol/L Chloride 108 H (98-107) mmol/L Carbon Dioxide 23 (22-30) mmol/L Anion Gap 7 mmol/L BUN 13 (7-17) mg/dL Creatinine 0.64 (0.52-1.04) mg/dL Est GFR (CKD-EPI)AfAm >90 (>60 ml/min/1.73 sqM) Est GFR (CKD-EPI)NonAf >90 (>60 ml/min/1.73 sqM) Glucose 116 H (74-99) mg/dL Plasma Lactic Acid [place] (0.7-2.0) mmol/L Calcium 8.5 (8.4-10.2) mg/dL Total Bilirubin 1.5 H (0.2-1.3) mg/dL AST 33 (14-36) U/L ALT 19 (4-34) U/L Alkaline Phosphatase 99 (38-126) U/L C-Reactive Protein 1.1 H (<1.0) mg/dL Total Protein 6.8 (6.3-8.2) g/dL Albumin 3.0 L (3.5-5.0) g/dL Amylase 36 (30-110) U/L Lipase 135 (23-300) U/L Urine Color Urine Appearance (Clear) Urine pH (5.0-8.0) Ur Specific [place] (1.001-1.035) Urine Protein (Negative) Urine Glucose (UA) (Negative) Urine Ketones (Negative) Urine Blood (Negative) Urine Nitrite (Negative) Urine Bilirubin (Negative) Urine Urobilinogen (<2.0) mg/dL Ur Leukocyte Esterase (Negative) Urine RBC (0-5) /hpf Urine WBC (0-5) /hpf Ur Squamous Epith Cells (0-4) /hpf Urine Bacteria (None) /hpf Urine Mucus (None) /hpf 01/26/23 01/26/23 Range/Units 19:10 19:10 WBC (3.8-10.6) k/uL RBC (3.80-5.40) m/uL Hgb (11.4-16.0) gm/dL Hct (34.0-46.0) % MCV (80.0-100.0) fL MCH (25.0-35.0) pg MCHC (31.0-37.0) g/dL RDW (11.5-15.5) % Plt Count (150-450) k/uL MPV Neutrophils % % Lymphocytes % % Monocytes % % Eosinophils % % Basophils % % Neutrophils # (1.3-7.7) k/uL Lymphocytes # (1.0-4.8) k/uL Monocytes # (0-1.0) k/uL Eosinophils # (0-0.7) k/uL Basophils # (0-0.2) k/uL Manual Slide Review Macrocytosis PT (10.0-12.5) sec INR (<1.2) APTT (22.0-30.0) sec Sodium (137-145) mmol/L Potassium (3.5-5.1) mmol/L Chloride (98-107) mmol/L Carbon Dioxide (22-30) mmol/L Anion Gap mmol/L BUN (7-17) mg/dL Creatinine (0.52-1.04) mg/dL Est GFR (CKD-EPI)AfAm (>60 ml/min/1.73 sqM) Est GFR (CKD-EPI)NonAf (>60 ml/min/1.73 sqM) Glucose (74-99) mg/dL Plasma Lactic Acid [place] 1.5 (0.7-2.0) mmol/L Calcium (8.4-10.2) mg/dL Total Bilirubin (0.2-1.3) mg/dL AST (14-36) U/L ALT (4-34) U/L Alkaline Phosphatase (38-126) U/L C-Reactive Protein (<1.0) mg/dL Total Protein (6.3-8.2) g/dL Albumin (3.5-5.0) g/dL Amylase (30-110) U/L Lipase (23-300) U/L Urine Color Yellow Urine Appearance Clear (Clear) Urine pH 5.5 (5.0-8.0) Ur Specific [place] 1.010 (1.001-1.035) Urine Protein Negative (Negative) Urine Glucose (UA) Negative (Negative) Urine Ketones Negative (Negative) Urine Blood Trace (Negative) Urine Nitrite Negative (Negative) Urine Bilirubin Negative (Negative) Urine Urobilinogen <2.0 (<2.0) mg/dL Ur Leukocyte Esterase Small (Negative) Urine RBC 2 (0-5) /hpf Urine WBC 1 (0-5) /hpf Ur Squamous Epith Cells 4 (0-4) /hpf Urine Bacteria Occasional H (None) /hpf Urine Mucus Rare H (None) /hpf - EKG Data EKG shows normal: sinus rhythm, axis (Borderline left axis deviation), intervals (Normal), QRS complexes (Normal) Rate: normal (Rate 67 bpm) Disposition Clinical Impression: Abdominal pain Disposition: HOME SELF-CARE Condition: Good Instructions (If sedation given, give patient instructions): Abdominal Pain (ED) Prescriptions: Loperamide HCl [Loperamide] 2 mg PO TID PRN #15 capsule PRN Reason: Diarrhea Is patient prescribed a controlled substance at d/c from ED?: No Referrals: Mark Estrada MD [Primary Care Provider] - 1-2 days
== END 2023-01-26 22:44 | disposition home or self-care (01) ==
LOC: EC 17:56
DX: R10.9 Unspecified abdominal pain (principal); F17.200 Nicotine dependence, unspecified, uncomplicated; J44.9 Chronic obstructive pulmonary disease, unspecified; Z86.59 Personal history of other mental and behavioral disorders
CPT/HCPCS: 36415; 93005; 80053; 82150; 83605; 83690; 85025; 85610; 85730; 86140; 81001; 99285; 96374; 96375; J2270; J1170

== ENCOUNTER 2023-01-28 15:42 | Emergency (ER) | payer MEDICARE, OTHER ==
[2023-01-28 15:54] VITALS: RESP 18; TEMP 98.5
[2023-01-28] MEDS ORDERED: SODIUM CHLORIDE 0.9% 1,000 ML IV STA (15:57)
[2023-01-28] MEDS ORDERED: ONDANSETRON 4 MG/2 ML VIAL IVP STA (15:57)
[2023-01-28] MEDS ORDERED: HYDROmorphone 1 MG/ML 1 ML SYRINGE IVP STA ×2 (15:58→18:51)
[2023-01-28 16:25] LABS: Basophils % (A) 0 %; Eosinophils # (A) 0.1 k/uL (0-0.7); Eosinophils % (A) 2 %; HCT 41.7 % (34.0-46.0); HGB 13.7 gm/dL (11.4-16.0); Lymphocytes # (A) 0.9 k/uL (1.0-4.8); Lymphocytes % (A) 32 %; MCH 36.2 pg (25.0-35.0); MCHC 32.9 g/dL (31.0-37.0); MCV 109.8 fL (80.0-100.0); Macrocytosis Marked; Mean Platelet Volume 9.5; Monocytes # (A) 0.2 k/uL (0-1.0); Monocytes % (A) 8 %; Neutrophils # (A) 1.5 k/uL (1.3-7.7); Neutrophils % (A) 54 %; RDW 13.8 % (11.5-15.5); WBC 2.8 k/uL (3.8-10.6)
[2023-01-28 16:28] LABS: Platelet Count 48 k/uL (150-450)
[2023-01-28 16:34] LABS: INR 1.4 (<1.2); Partial Thromboplastin Time 29.2 sec (22.0-30.0); Prothrombin Time 14.6 sec (10.0-12.5)
[2023-01-28 16:41] LABS: Lactic Acid, Venous 2.5 mmol/L (0.7-2.0)
--- NOTE | 2023-01-28 17:08 | ED ---
Abdominal Pain HPI - General Chief Complaint: Abdominal Pain Stated Complaint: n/v/d Time Seen by Provider: 01/28/23 15:44 Source: EMS, RN notes reviewed, old records reviewed Mode of arrival: EMS Limitations: no limitations - History of Present Illness Initial Comments: This is a 49-year-old female to the emergency department for evaluation today. Patient presents today for evaluation regards to abdominal pain. Patient is well-known to this hospital for abdominal pain chronic about pain. Patient has no history of underlying liver disease. Patient states she had persistent nausea vomiting today and the daughter became anxious over her symptoms and called EMS for evaluation. Patient is here today for evaluation persistent nausea vomiting and abdominal pain. MD Complaint: abdominal pain -: hour(s) Location: periumbilical, epigastric, suprapubic Radiation: epigastric, suprapubic Migration to: epigastric, suprapubic Severity: severe Severity scale (1-10): 9 Quality: stabbing Consistency: constant Improves With: nothing Worsens With: nothing Associated Symptoms: nausea, vomiting Treatments Prior to Arrival: other - Related Data Home Medications Medication Instructions Recorded Confirmed HYDROmorphone [Dilaudid] 2 mg PO Q6H PRN 09/06/19 01/26/23 Hydrocodone/Acetaminophen [[place] 1 tab PO Q6H PRN 09/06/19 01/26/23 10-325] Previous Rx's Medication Instructions Recorded Ondansetron Odt [Zofran Odt] 4 mg PO Q8HR PRN #15 tab 01/25/23 Loperamide HCl [Loperamide] 2 mg PO TID PRN #15 capsule 01/26/23 Allergies Allergy/AdvReac Type Severity Reaction Status Date / Time No Known Allergies Allergy Verified 01/28/23 15:53 Review of Systems ROS Statement: Those systems with pertinent positive or pertinent negative responses have been documented in the HPI. ROS Other: All systems not noted in ROS Statement are negative. Past Medical History Past Medical History: Cancer, COPD, GERD/Reflux, GI Bleed, Hearing Disorder / Deafness, Liver Disease Additional Past Medical History / Comment(s): Hepatitis C, intractable ascities with multiple paracentesis, cirrhosis, peritonitis, pancytopenia, vertigo once; multiple upper GI bleeds, esophageal varicies/esophageal banding, left breast cancer had chemo last on 6-9-17-did not tolerate-completed only 3 cycles-then it was stopped/received radiation treatments/pt states she did not follow up and so did not have surgery lt ear deafness, R ear [place] RESERVATION, occasional R leg edema. History of Any Multi-Drug Resistant Organisms: None Reported Past Surgical History: Adenoidectomy, Breast Surgery, Tonsillectomy Additional Past Surgical History / Comment(s): Multiple paracentesises, EGDs, esophageal banding, right chest mediport since removed, l breast bx., Past Anesthesia/Blood Transfusion Reactions: No Reported Reaction Additional Past Anesthesia/Blood Transfusion Reaction / Comment(s): blood [place] sfusions- no reaction Past Psychological History: Anxiety Smoking Status: Current some day smoker, Light tobacco smoker Past Alcohol Use History: None Reported Past Drug Use History: None Reported - Past Family History Mother Family Medical History: Cancer Additional Family Medical History / Comment(s): of lung ca at the age of 59yrs. She was a smoker. Father Family Medical History: Myocardial Infarction ([place]) Additional Family Medical History / Comment(s): from 2nd heart attack at the age of 59yrs. General Exam Limitations: no limitations General appearance: alert, in no apparent distress Head exam: Present: atraumatic, normocephalic, normal inspection Eye exam: Present: normal appearance, PERRL, EOMI. Absent: scleral icterus, conjunctival injection, periorbital swelling ENT exam: Present: normal exam, mucous membranes moist Neck exam: Present: normal inspection. Absent: tenderness, meningismus, lymphadenopathy Respiratory exam: Present: normal lung sounds bilaterally. Absent: respiratory distress, wheezes, rales, rhonchi, stridor Cardiovascular Exam: Present: regular rate, normal rhythm, normal heart sounds. Absent: systolic murmur, diastolic murmur, rubs, gallop, clicks GI/Abdominal exam: Present: soft, normal bowel sounds. Absent: distended, tenderness, guarding, rebound, rigid Extremities exam: Present: normal inspection, full ROM, normal capillary refill. Absent: tenderness, pedal edema, joint swelling, calf tenderness Back exam: Present: normal inspection Neurological exam: Present: alert, oriented X3, CN II-XII intact Psychiatric exam: Present: normal affect, normal mood Skin exam: Present: warm, dry, intact, normal color. Absent: rash Course Vital Signs 01/28/23 01/28/23 15:51 18:26 Temperature 98.5 F Pulse Rate 71 72 Respiratory 18 18 Rate Blood Pressure 147/69 148/86 O2 Sat by Pulse 97 96 Oximetry - Reevaluation(s) Reevaluation #1: 01/28/23 17:40 Medical records reviewed Reevaluation #2: 01/28/23 17:40 Patient symptoms are improved Reevaluation #3: 01/28/23 18:53 Patient informed results and questions answered Reevaluation #4: 01/28/23 17:40 Was pt. sent in by a medical professional or institution (, [facility], [employer]OV[employer]PER[employer], urgent care, hospital, or snf...) When possible be specific @ -no Did you speak to anyone other than the patient for history (EMS, parent, family, police, friend...)? What history was obtained from this source @ -no Did you review nursing and triage notes (agree or disagree)? Why? @ -agree Are old charts reviewed (outside hosp., previous admission, EMS record, old EKG, old radiological studies, urgent care reports/EKG's, snf records)? Report findings @ -yes Differential Diagnosis (chest pain, altered mental status, abdominal pain women, abdominal pain men, vaginal bleeding, weakness, fever, dyspnea, syncope, headache, dizziness, GI bleed, back pain, seizure, CVA, palpatations, mental health, musculoskeletal)? @ -prior EKG interpreted by me (3pts min.). @ -yes X-rays interpreted by me (1pt min.). @ -no CT interpreted by me (1pt min.). @ -yes U/S interpreted by me (1pt. min.). @ -no What testing was considered but not performed or refused? (CT, X-rays, U/S, labs)? Why? @ -none What meds were considered but not given or refused? Why? @ -none Did you discuss the management of the patient with other professionals (professionals i.e. [facility] Arzate, [employer], lab, RT, psych nurse, clinical social work therapist, editorial cartoonist, teacher, bsa/aml compliance officer, case loader operator)? Give summary @ -no Was smoking cessation discussed for >3mins.? @ -no Was critical care preformed (if so, how long)? @ -no Were there social determinants of health that impacted care today? How? (Homelessness, low income, unemployed, alcoholism, drug addiction, transportation, low edu. Level, literacy, decrease access to med. care, half-way, rehab)? @ -none Was there de-escalation of care discussed even if they declined (Discuss DNR or withdrawal of care, Hospice)? DNR status @ -no What co-morbidities impacted this encounter? (DM, HTN, Smoking, COPD, CAD, Cancer, CVA, ARF, Chemo, Hep., AIDS, mental health diagnosis, sleep apnea, morbid obesity)? @ -none Was patient admitted / discharged? Hospital course, mention meds given and route, prescriptions, significant lab abnormalities, going to OR and other pertinent info. @ - 57 female to the emergency department for evaluation of acute on chronic abdominal pain with active nausea vomiting. Patient feeling much improved here in the ER, no active nausea vomiting and patient can be discharged Discharge Undiagnosed new problem with uncertain prognosis? @ -no Drug Therapy requiring intensive monitoring for toxicity (Heparin, Nitro, Insulin, Cardizem)? @ -no Were any procedures done? @ -no Diagnosis/symptom? @ -Abdominal pain, active nausea vomiting Acute, or Chronic, or Acute on Chronic? @ -Acute Uncomplicated (without systemic symptoms) or Complicated (systemic symptoms)? @ -Complicated Side effects of treatment? @ -no Exacerbation, Progression, or Severe Exacerbation? @ -exacerbation Poses a threat to life or bodily function? How? (Chest pain, [place], [place], pneumonia, PE, COPD, DKA, ARF, appy, cholecystitis, CVA, Diverticulitis, Homicidal, Suicidal, threat to staff... and all critical care pts) @ -no Reevaluation #5: 01/28/23 17:40 Differential Abdominal Pain Women: Appendicitis, Cholecystitis, diverticulosis, ischemic bowel, pancreatitis, hepatitis, UTI, gastroenteritis, AAA, incarcerated hernia, bowel obstruction, constipation, inflammatory bowel, hepatitis, peptic ulcer disease, splenic infarction, perforated viscus, vulvitis, ovarian torsion, PID, kidney stone, placenta abruption, this is not meant to be an all-inclusive list Medical Decision Making - Medical Decision Making 57 female to the emergency department for evaluation of acute on chronic abdominal pain with active nausea vomiting. Patient feeling much improved here in the ER, no active nausea vomiting and patient can be discharged - Lab Data Result diagrams: 10/25/23 16:11 01/28/23 16:11 Lab Results 01/28/23 01/28/23 01/28/23 Range/Units 15:15 16:11 16:11 WBC 2.8 L (3.8-10.6) k/uL RBC 3.80 (3.80-5.40) m/uL Hgb 13.7 (11.4-16.0) gm/dL Hct 41.7 (34.0-46.0) % MCV 109.8 H (80.0-100.0) fL MCH 36.2 H (25.0-35.0) pg MCHC 32.9 (31.0-37.0) g/dL RDW 13.8 (11.5-15.5) % Plt Count 48 L (150-450) k/uL MPV 9.5 Neutrophils % 54 % Lymphocytes % 32 % Monocytes % 8 % Eosinophils % 2 % Basophils % 0 % Neutrophils # 1.5 (1.3-7.7) k/uL Lymphocytes # 0.9 L (1.0-4.8) k/uL Monocytes # 0.2 (0-1.0) k/uL Eosinophils # 0.1 (0-0.7) k/uL Basophils # 0.0 (0-0.2) k/uL Macrocytosis Marked A PT (10.0-12.5) sec INR (<1.2) APTT (22.0-30.0) sec Sodium 140 (137-145) mmol/L Potassium 3.3 L (3.5-5.1) mmol/L Chloride 109 H (98-107) mmol/L Carbon Dioxide 24 (22-30) mmol/L Anion Gap 7 mmol/L BUN 13 (7-17) mg/dL Creatinine 0.63 (0.52-1.04) mg/dL Est GFR (CKD-EPI)AfAm >90 (>60 ml/min/1.73 sqM) Est GFR (CKD-EPI)NonAf >90 (>60 ml/min/1.73 sqM) Glucose 95 (74-99) mg/dL Lactic Ac Sepsis Rflx Plasma Lactic Acid Darrius (0.7-2.0) mmol/L Calcium 8.3 L (8.4-10.2) mg/dL Phosphorus 3.6 (2.5-4.5) mg/dL Magnesium 1.9 (1.6-2.3) mg/dL Total Bilirubin 3.4 H (0.2-1.3) mg/dL AST 35 (14-36) U/L ALT 19 (4-34) U/L Alkaline Phosphatase 78 (38-126) U/L Ammonia (<30) umol/L Total Protein 6.9 (6.3-8.2) g/dL Albumin 3.0 L (3.5-5.0) g/dL Amylase 39 (30-110) U/L Lipase 103 (23-300) U/L 01/28/23 01/28/23 01/28/23 Range/Units 16:11 16:11 16:43 WBC (3.8-10.6) k/uL RBC (3.80-5.40) m/uL Hgb (11.4-16.0) gm/dL Hct (34.0-46.0) % MCV (80.0-100.0) fL MCH (25.0-35.0) pg MCHC (31.0-37.0) g/dL RDW (11.5-15.5) % Plt Count (150-450) k/uL MPV Neutrophils % % Lymphocytes % % Monocytes % % Eosinophils % % Basophils % % Neutrophils # (1.3-7.7) k/uL Lymphocytes # (1.0-4.8) k/uL Monocytes # (0-1.0) k/uL Eosinophils # (0-0.7) k/uL Basophils # (0-0.2) k/uL Macrocytosis PT 14.6 H (10.0-12.5) sec INR 1.4 H (<1.2) APTT 29.2 (22.0-30.0) sec Sodium (137-145) mmol/L Potassium (3.5-5.1) mmol/L Chloride (98-107) mmol/L Carbon Dioxide (22-30) mmol/L Anion Gap mmol/L BUN (7-17) mg/dL Creatinine (0.52-1.04) mg/dL Est GFR (CKD-EPI)AfAm (>60 ml/min/1.73 sqM) Est GFR (CKD-EPI)NonAf (>60 ml/min/1.73 sqM) Glucose (74-99) mg/dL Lactic Ac Sepsis Rflx Y Plasma Lactic Acid Darrius 2.5 H* (0.7-2.0) mmol/L Calcium (8.4-10.2) mg/dL Phosphorus (2.5-4.5) mg/dL Magnesium (1.6-2.3) mg/dL Total Bilirubin (0.2-1.3) mg/dL AST (14-36) U/L ALT (4-34) U/L Alkaline Phosphatase (38-126) U/L Ammonia 11 (<30) umol/L Total Protein (6.3-8.2) g/dL Albumin (3.5-5.0) g/dL Amylase (30-110) U/L Lipase (23-300) U/L - Radiology Data Radiology results: report reviewed (CT of the abdomen and pelvis negative for acute), image reviewed Disposition Clinical Impression: Abdominal colic, Nausea & vomiting Disposition: HOME SELF-CARE Condition: Fair Instructions (If sedation given, give patient instructions): Abdominal Pain (ED) Is patient prescribed a controlled substance at d/c from ED?: No Referrals: Mark Estrada MD [Primary Care Provider] - 1-2 days Time of Disposition: 18:50
[2023-01-28 17:16] LABS: ALT 19 U/L (4-34); AST 35 U/L (14-36); African American GFR (CKD) >90 (>60 ml/min/1.73 sqM); Alkaline Phosphatase 78 U/L (38-126); Amylase 39 U/L (30-110); Anion Gap 7 mmol/L; Blood Urea Nitrogen 13 mg/dL (7-17); Calcium 8.3 mg/dL (8.4-10.2); Carbon Dioxide 24 mmol/L (22-30); Chloride 109 mmol/L (98-107); Glucose 95 mg/dL (74-99); Lipase 103 U/L (23-300); Non-African American GFR(CKD) >90 (>60 ml/min/1.73 sqM); Potassium 3.3 mmol/L (3.5-5.1); Sodium 140 mmol/L (137-145); Total Bilirubin 3.4 mg/dL (0.2-1.3); Total Protein 6.9 g/dL (6.3-8.2)
--- NOTE | 2023-01-28 17:44 | CT ---
EXAMINATION TYPE: CT abdomen pelvis wo con DATE OF EXAM: 01/28/2023 HISTORY: abdominal pain, nausea, vomiting, diarrhea. CT DLP: 487.2 mGycm. Automated Exposure Control for Dose Reduction was Utilized. TECHNIQUE: CT scan of the abdomen and pelvis is performed without oral or IV contrast. COMPARISON: CT abdomen and pelvis 3 days ago FINDINGS: Within the limitations of a non-contrast study, the following observations are made. LUNG BASES: Central bleb in the right mid to lower lung is partially imaged. LIVER/GB: Persistent small size liver with surrounding ascites. Stone filled contracted gallbladder r edemonstrated PANCREAS: No significant abnormality is seen. SPLEEN: Spleen is mildly enlarged measuring 14.5 cm long axis axial image 21 similar to prior. ADRENALS: No significant abnormality is seen. KIDNEYS: No renal stones or hydronephrosis is seen bilaterally. BOWEL: No abnormal small or large bowel dilatation. There is of mild to moderate wall thickening invo lving small bowel loops is felt present. GENITAL ORGANS: No gross abnormality seen. LYMPH NODES: No greater than 1cm abdominal or pelvic lymph nodes are appreciated. OSSEOUS STRUCTURES: No significant abnormality is seen. OTHER: Moderate to large amount of intraperitoneal ascites redemonstrated. Mild calcified plaque of t he aorta extends into branch vessels IMPRESSION: Cirrhosis with evidence of portal hypertension redemonstrated. Moderate to large amount o f intraperitoneal ascites has similar appearance to most recent prior. No bowel obstruction. Mild to moderate wall thickening within bowel loops is nonspecific and can be product underlying liver diseas e. No significant new findings otherwise seen.
[2023-01-28 17:50] LABS: Magnesium 1.9 mg/dL (1.6-2.3); Phosphorus 3.6 mg/dL (2.5-4.5)
[2023-01-28 18:37] VITALS: BP 148/86; PULSE 72
[2023-01-28] MEDS ORDERED: PROCHLORPERAZINE INJ 10 MG/2 ML VIAL IVP STA (18:51)
[2023-01-28] MEDS ORDERED: ONDANSETRON 4 MG ODT STARTER PACK 2 TAB BTL PO STA (18:51)
== END 2023-01-28 19:12 | disposition home or self-care (01) ==
LOC: EC 15:42
DX: R10.84 Generalized abdominal pain (principal); R11.2 Nausea with vomiting, unspecified; J44.9 Chronic obstructive pulmonary disease, unspecified; F17.200 Nicotine dependence, unspecified, uncomplicated; Z79.899 Other long term (current) drug therapy; Z86.59 Personal history of other mental and behavioral disorders
CPT/HCPCS: 36415; 80053; 82140; 82150; 83605; 83690; 83735; 84100; 85025; 85610; 85730; 74176; 99285; 96374; 96376; 96375 ×2; 96361 ×3; J0780; J2405; J1170; S0119

== ENCOUNTER 2023-02-14 13:51 | Emergency (ER) | payer MEDICARE, OTHER ==
[2023-02-14] MEDS ORDERED: IPRATROPIUM-ALBUTEROL 3 ML NEB INHALATION STA (14:42)
--- NOTE | 2023-02-14 14:46 | ED ---
SOB HPI - General Chief Complaint: Shortness of Breath Stated Complaint: shortness of breath Time Seen by Provider: 02/14/23 13:58 Source: patient, RN notes reviewed Mode of arrival: wheelchair Limitations: no limitations - History of Present Illness Initial Comments: This is a 57-year-old female who presents to the emergency department for shortness of breath. States that about 30 minutes prior to arrival, she started feeling like she could not catch her breath. States that this does happen to her once a month and she is not sure why. Denies any chest pain. Does report a history of COPD. she did also just start coughing today. She does not take any medications for management of the COPD. Denies any sick contacts, fevers, or chills. She does also report right sided abdominal pain, and she is well known to this emergency department for chronic abdominal pain related to ascites. States that she has not had a paracentesis in a while because the amount of fluid has remained stable, and she is managing this with [place] at home. MD Complaint: shortness of breath, cough - Related Data Home Medications Medication Instructions Recorded Confirmed HYDROmorphone [Dilaudid] 2 mg PO Q6H PRN 09/06/19 01/26/23 Hydrocodone/Acetaminophen [[place] 1 tab PO Q6H PRN 09/06/19 01/26/23 10-325] Previous Rx's Medication Instructions Recorded Ondansetron Odt [Zofran Odt] 4 mg PO Q8HR PRN #15 tab 01/25/23 Loperamide HCl [Loperamide] 2 mg PO TID PRN #15 capsule 01/26/23 Albuterol Inhaler [Ventolin Hfa 1 puff INHALATION QID PRN #8 gm 02/14/23 Inhaler] Albuterol Nebulized [Ventolin 2.5 mg INHALATION Q6H PRN #75 ml 02/14/23 Nebulized] Allergies Allergy/AdvReac Type Severity Reaction Status Date / Time No Known Allergies Allergy Verified 02/14/23 13:54 Review of Systems ROS Statement: Those systems with pertinent positive or pertinent negative responses have been documented in the HPI. ROS Other: All systems not noted in ROS Statement are negative. Past Medical History Past Medical History: Cancer, COPD, GERD/Reflux, GI Bleed, Hearing Disorder / Deafness, Liver Disease Additional Past Medical History / Comment(s): Hepatitis C, intractable ascities with multiple paracentesis, cirrhosis, peritonitis, pancytopenia, vertigo once; multiple upper GI bleeds, esophageal varicies/esophageal banding, left breast cancer had chemo last on 09-12-16-did not tolerate-completed only 3 cycles-then it was stopped/received radiation treatments/pt states she did not follow up and so did not have surgery lt ear deafness, R ear [place]IN[place], occasional R leg edema. History of Any Multi-Drug Resistant Organisms: None Reported Past Surgical History: Adenoidectomy, Breast Surgery, Tonsillectomy Additional Past Surgical History / Comment(s): Multiple paracentesises, EGDs, esophageal banding, right chest mediport since removed, l breast bx., Past Anesthesia/Blood Transfusion Reactions: No Reported Reaction Additional Past Anesthesia/Blood Transfusion Reaction / Comment(s): blood transfusions- no reaction Past Psychological History: Anxiety Smoking Status: Current some day smoker, Light tobacco smoker Past Alcohol Use History: None Reported Past Drug Use History: None Reported - Past Family History Mother Family Medical History: Cancer Additional Family Medical History / Comment(s): of lung ca at the age of 59yrs. She was a smoker. Father Family Medical History: Myocardial Infarction ([place]) Additional Family Medical History / Comment(s): from 2nd heart attack at the age of 59yrs. General Exam Limitations: no limitations General appearance: alert, in no apparent distress Head exam: Present: atraumatic, normocephalic, normal inspection Respiratory exam: Present: decreased breath sounds, prolonged expiratory. Absent: wheezes, rales, rhonchi Cardiovascular Exam: Present: regular rate, normal rhythm, normal heart sounds. Absent: systolic murmur, diastolic murmur, rubs, gallop, clicks Neurological exam: Present: alert, oriented X3, CN II-XII intact Psychiatric exam: Present: normal affect, normal mood Skin exam: Present: warm, dry, intact, normal color. Absent: rash Course Vital Signs 02/14/23 02/14/23 02/14/23 13:54 14:30 15:30 Temperature 97.7 F Pulse Rate 114 H 80 92 Respiratory 18 15 12 Rate Blood Pressure 164/108 172/87 145/83 O2 Sat by Pulse 98 98 Oximetry 02/14/23 02/14/23 02/14/23 16:04 16:14 16:51 Temperature 97.8 F Pulse Rate 84 88 98 Respiratory 14 Rate Blood Pressure 158/88 O2 Sat by Pulse 97 Oximetry Medical Decision Making - Medical Decision Making This is a 57-year-old female who presents to the emergency department for shortness of breath. Was pt. sent in by a medical professional or institution? @ -No Did you speak to anyone other than the patient for history? @ -No Did you review nursing and triage notes? @ -Yes, and I agree, it is accurate with regards to the patient's symptoms. Were old charts reviewed? @ -No Differential Diagnosis? @ -Differential Dyspnea: Coronary syndrome, arrhythmia, tamponade, asthma, COPD, pulmonary embolism, pneumonia, pneumothorax, pulmonary effusion, anaphylaxis, diabetic ketoacidosis, flailed chest, pulmonary contusion, diaphragmatic rupture, anemia, neuromuscular, this is not meant to be an all-inclusive list. EKG interpreted by me (3pts min.)? @ -EKG interpreted by me demonstrating the following: Sinus rhythm. Ventricular rate 84 beats per minute, FL interval 112 ms, QRS duration 92 ms, QTC 425 ms. X-rays interpreted by me (1pt min.)? @ -Chest x-ray obtained, my interpretation identifies no localized consolidations or infiltrates. CT interpreted by me (1pt min.)? @ -CT angiogram of the chest obtained. My interpretation identifies no evidence of a pulmonary embolus. U/S interpreted by me (1pt. min.)? @ -Not obtained What testing was considered but not performed? (CT, X-rays, U/S, labs)? Why? @ -None What meds were considered but not given? Why? @ -None Did you discuss the management of the patient with other professionals? @ -No Did you reconcile home meds? @ -No Was smoking cessation discussed for >3mins.? @ -I discussed smoking cessation for greater than 3 minutes. The risk of smoking were discussed with the patient including but not limited to risks of cancer, stroke, coronary artery disease and COPD. Also discussed with patient were multiple methods of quitting smoking. Lastly we discussed the financial cost of smoking. Was critical care preformed (if so, how long)? @ -No Were there social determinants of health that impacted care today? How? (Homelessness, low income, unemployed, alcoholism, drug addiction, transp ortation, low edu. Level, literacy, decrease access to med. care, longterm, rehab)? @ -No Was there de-escalation of care discussed even if they declined? (Discuss DNR or withdrawal of care, Hospice)? @ -No What co-morbidities impacted this encounter? (DM, HTN, Smoking, COPD, CAD, Cancer, CVA, Hep., AIDS, mental health diagnosis, sleep apnea, morbid obesity)? @ -COPD, liver disease Was patient admitted / discharged? @ -Discharged. Lab work obtained revealing leukopenia, which is stable when compared with prior values. D-dimer also elevated. Covid, influenza, RSV testing were negative. Chest x-ray reveals no acute process. CT angiogram of the chest obtained due to the patient's symptoms with elevated d-dimer. There was no evidence of a pulmonary embolus. The liver cirrhosis with ascites was redemonstrated and found to be stable. Breathing treatment administered in the emergency department. Discussed with the patient that the cause of this may be related to the COPD. However, the patient states that while sitting in the emergency department her symptoms have started to improve and she would like to go home. We discussed that if she continues to be bothered by the chronic abdominal pain, she should discuss this with her primary care provider in the event that another paracentesis would be of her benefit. I did refill her albuterol inhaler and albuterol nebulizer treatments, which she has not had in a long period of time in the event these are helpful for her symptoms as well. She was otherwise discharged home in stable condition with instructions to follow up with her primary care provider. Undiagnosed new problem with uncertain prognosis? @ -None Drug Therapy requiring intensive monitoring for toxicity (Heparin, Nitro, Insulin, Cardizem)? @ -None Were any procedures done? @ -None Diagnosis/symptom? @ -Shortness of breath Acute, or Chronic, or Acute on Chronic? @ -Acute Uncomplicated (without systemic symptoms) or Complicated (systemic symptoms)? @ -Uncomplicated Side effects of treatment? @ -None Exacerbation, Progression, or Severe Exacerbation] @ -Not applicable Poses a threat to life or bodily function? @ -Unlikely Return precautions reviewed in depth, the patient is instructed to return to the emergency department with any new, worsening, or concerning symptoms. Patient verbalized understanding. This case was discussed in detail with the attending ED physician, Dr. Dye. Presentation, findings, and treatment plan discussed in detail as well. - Lab Data Result diagrams: 02/14/23 14:12 02/14/23 14:12 Lab Results 02/14/23 02/14/23 02/14/23 Range/Units 14:12 14:12 14:12 WBC 1.8 L (3.8-10.6) k/uL RBC 3.52 L (3.80-5.40) m/uL Hgb 13.3 (11.4-16.0) gm/dL Hct 38.1 (34.0-46.0) % MCV 108.1 H (80.0-100.0) fL MCH 37.7 H (25.0-35.0) pg MCHC 34.9 (31.0-37.0) g/dL RDW 13.7 (11.5-15.5) % Plt Count 39 L (150-450) k/uL MPV 9.9 Neutrophils % (Manual) 43 % Band Neuts % (Manual) 1 % Lymphocytes % (Manual) 41 % Monocytes % (Manual) 14 % Eosinophils % (Manual) 1 % Neutrophils # (Manual) 0.70 L (1.3-7.7) k/uL Lymphocytes # (Manual) 0.74 L (1.0-4.8) k/uL Monocytes # (Manual) 0.25 (0-1.0) k/uL Eosinophils # (Manual) 0.02 (0-0.7) k/uL Nucleated RBCs 0 (0-0) /100 WBC Manual Slide Review Performed Macrocytosis Moderate PT 12.7 H (10.0-12.5) sec INR 1.2 H (<1.2) APTT 29.3 (22.0-30.0) sec D-Dimer 1.26 H (<0.60) mg/L FEU Sodium 136 L (137-145) mmol/L Potassium 3.9 (3.5-5.1) mmol/L Chloride 103 (98-107) mmol/L Carbon Dioxide 25 (22-30) mmol/L Anion Gap 8 mmol/L BUN 12 (7-17) mg/dL Creatinine 0.57 (0.52-1.04) mg/dL Est GFR (CKD-EPI)AfAm >90 (>60 ml/min/1.73 sqM) Est GFR (CKD-EPI)NonAf >90 (>60 ml/min/1.73 sqM) Glucose 111 H (74-99) mg/dL Plasma Lactic Acid Darrius (0.7-2.0) mmol/L Calcium 8.8 (8.4-10.2) mg/dL Total Bilirubin 1.9 H (0.2-1.3) mg/dL AST 37 H (14-36) U/L ALT 19 (4-34) U/L Alkaline Phosphatase 105 (38-126) U/L Troponin I (0.000-0.034) ng/mL Total Protein 6.6 (6.3-8.2) g/dL Albumin 2.9 L (3.5-5.0) g/dL Urine Color Urine Appearance (Clear) Urine pH (5.0-8.0) Ur Specific [place] (1.001-1.035) Urine Protein (Negative) Urine Glucose (UA) (Negative) Urine Ketones (Negative) Urine Blood (Negative) Urine Nitrite (Negative) Urine Bilirubin (Negative) Urine Urobilinogen (<2.0) mg/dL Ur Leukocyte Esterase (Negative) Urine RBC (0-5) /hpf Ur Squamous Epith Cells (0-4) /hpf Urine Mucus (None) /hpf Influenza Type A (PCR) (Not Detectd) Influenza Type B (PCR) (Not Detectd) RSV (PCR) (Not Detectd) SARS-CoV-2 (PCR) (Not Detectd) 02/14/23 02/14/23 02/14/23 Range/Units 14:12 14:12 14:12 WBC (3.8-10.6) k/uL RBC (3.80-5.40) m/uL Hgb (11.4-16.0) gm/dL Hct (34.0-46.0) % MCV (80.0-100.0) fL MCH (25.0-35.0) pg MCHC (31.0-37.0) g/dL RDW (11.5-15.5) % Plt Count (150-450) k/uL MPV Neutrophils % (Manual) % Band Neuts % (Manual) % Lymphocytes % (Manual) % Monocytes % (Manual) % Eosinophils % (Manual) % Neutrophils # (Manual) (1.3-7.7) k/uL Lymphocytes # (Manual) (1.0-4.8) k/uL Monocytes # (Manual) (0-1.0) k/uL Eosinophils # (Manual) (0-0.7) k/uL Nucleated RBCs (0-0) /100 WBC Manual Slide Review Macrocytosis PT (10.0-12.5) sec INR (<1.2) APTT (22.0-30.0) sec D-Dimer (<0.60) mg/L FEU Sodium (137-145) mmol/L Potassium (3.5-5.1) mmol/L Chloride (98-107) mmol/L Carbon Dioxide (22-30) mmol/L Anion Gap mmol/L BUN (7-17) mg/dL Creatinine (0.52-1.04) mg/dL Est GFR (CKD-EPI)AfAm (>60 ml/min/1.73 sqM) Est GFR (CKD-EPI)NonAf (>60 ml/min/1.73 sqM) Glucose (74-99) mg/dL Plasma Lactic Acid Darri[place] 1.2 (0.7-2.0) mmol/L Calcium (8.4-10.2) mg/dL Total Bilirubin (0.2-1.3) mg/dL AST (14-36) U/L ALT (4-34) U/L Alkaline Phosphatase (38-126) U/L Troponin I 0.013 (0.000-0.034) ng/mL Total Protein (6.3-8.2) g/dL Albumin (3.5-5.0) g/dL Urine Color Urine Appearance (Clear) Urine pH (5.0-8.0) Ur Specific [place] (1.001-1.035) Urine Protein (Negative) Urine Glucose (UA) (Negative) Urine Ketones (Negative) Urine Blood (Negative) Urine Nitrite (Negative) Urine Bilirubin (Negative) Urine Urobilinogen (<2.0) mg/dL Ur Leukocyte Esterase (Negative) Urine RBC (0-5) /hpf Ur Squamous Epith Cells (0-4) /hpf Urine Mucus (None) /hpf Influenza Type A (PCR) Not Detected (Not Detectd) Influenza Type B (PCR) Not Detected (Not Detectd) RSV (PCR) Not Detected (Not Detectd) SARS-CoV-2 (PCR) Not Detected (Not Detectd) 02/14/23 Range/Units 15:09 WBC (3.8-10.6) k/uL RBC (3.80-5.40) m/uL Hgb (11.4-16.0) gm/dL Hct (34.0-46.0) % MCV (80.0-100.0) fL MCH (25.0-35.0) pg MCHC (31.0-37.0) g/dL RDW (11.5-15.5) % Plt Count (150-450) k/uL MPV Neutrophils % (Manual) % Band Neuts % (Manual) % Lymphocytes % (Manual) % Monocytes % (Manual) % Eosinophils % (Manual) % Neutrophils # (Manual) (1.3-7.7) k/uL Lymphocytes # (Manual) (1.0-4.8) k/uL Monocytes # (Manual) (0-1.0) k/uL Eosinophils # (Manual) (0-0.7) k/uL Nucleated RBCs (0-0) /100 WBC Manual Slide Review Macrocytosis PT (10.0-12.5) sec INR (<1.2) APTT (22.0-30.0) sec D-Dimer (<0.60) mg/L FEU Sodium (137-145) mmol/L Potassium (3.5-5.1) mmol/L Chloride (98-107) mmol/L Carbon Dioxide (22-30) mmol/L Anion Gap mmol/L BUN (7-17) mg/dL Creatinine (0.52-1.04) mg/dL Est GFR (CKD-EPI)AfAm (>60 ml/min/1.73 sqM) Est GFR (CKD-EPI)NonAf (>60 ml/min/1.73 sqM) Glucose (74-99) mg/dL Plasma Lactic Acid [place] (0.7-2.0) mmol/L Calcium (8.4-10.2) mg/dL Total Bilirubin (0.2-1.3) mg/dL AST (14-36) U/L ALT (4-34) U/L Alkaline Phosphatase (38-126) U/L Troponin I (0.000-0.034) ng/mL Total Protein (6.3-8.2) g/dL Albumin (3.5-5.0) g/dL Urine Color Colorless Urine Appearance Clear (Clear) Urine pH 7.0 (5.0-8.0) Ur Specific [place] 1.004 (1.001-1.035) Urine Protein Negative (Negative) Urine Glucose (UA) Negative (Negative) Urine Ketones Negative (Negative) Urine Blood Moderate H (Negative) Urine Nitrite Negative (Negative) Urine Bilirubin Negative (Negative) Urine Urobilinogen <2.0 (<2.0) mg/dL Ur Leukocyte Esterase Negative (Negative) Urine RBC 3 (0-5) /hpf Ur Squamous Epith Cells 1 (0-4) /hpf Urine Mucus Rare H (None) /hpf Influenza Type A (PCR) (Not Detectd) Influenza Type B (PCR) (Not Detectd) RSV (PCR) (Not Detectd) SARS-CoV-2 (PCR) (Not Detectd) - Radiology Data Radiology results: report reviewed, image reviewed Disposition Clinical Impression: Shortness of breath, Nicotine dependence, Chronic abdominal pain Disposition: HOME SELF-CARE Instructions (If sedation given, give patient instructions): COPD (Chronic Obstructive Pulmonary Disease) (ED) Additional Instructions: Return to the emergency department with any new, worsening, or concerning symptoms. You can use either the albuterol inhaler or nebulizer treatments every 4-6 hours as needed for shortness of breath. Follow up with your primary care provider in 1-2 days and discuss scheduling a future paracentesis. Prescriptions: Albuterol Inhaler [Ventolin Hfa Inhaler] 1 puff INHALATION QID PRN #8 gm PRN Reason: Shortness Of Breath Albuterol Nebulized [Ventolin Nebulized] 2.5 mg INHALATION Q6H PRN #75 ml PRN Reason: Shortness Of Breath Is patient prescribed a controlled substance at d/c from ED?: No Referrals: Mark Estrada MD [Primary Care Provider] - 1-2 days
[2023-02-14 14:49] LABS: HCT 38.1 % (34.0-46.0); HGB 13.3 gm/dL (11.4-16.0); MCH 37.7 pg (25.0-35.0); MCHC 34.9 g/dL (31.0-37.0); MCV 108.1 fL (80.0-100.0); Macrocytosis Moderate; Mean Platelet Volume 9.9; RBC 3.52 m/uL (3.80-5.40); RDW 13.7 % (11.5-15.5); WBC 1.8 k/uL (3.8-10.6)
--- NOTE | 2023-02-14 14:57 | XR ---
EXAMINATION TYPE: XR chest 2V DATE OF EXAM: 02/14/2023 2:47 PM CLINICAL INDICATION:Female, 57 years old with history of difficulty breathing; [facility] COMPARISON: Chest radiographs from 07/03/2022 TECHNIQUE: XR chest 2V Frontal and lateral views of the chest. FINDINGS: Lungs/Pleura: There is no evidence of pleural effusion, focal consolidation, or pneumothorax. Pulmonary vascularity: Unremarkable. Heart/mediastinum: Cardiomediastinal silhouette is unremarkable. Musculoskeletal: No acute osseous pathology. IMPRESSION: Rotated exam, No acute cardiopulmonary disease/process.
[2023-02-14] MEDS ORDERED: HYDROcodone/APAP 10-325MG 1 EACH TAB PO ONE (14:58)
[2023-02-14 15:14] LABS: INR 1.2 (<1.2); Partial Thromboplastin Time 29.3 sec (22.0-30.0); Prothrombin Time 12.7 sec (10.0-12.5)
[2023-02-14 15:19] LABS: ALT 19 U/L (4-34); AST 37 U/L (14-36); African American GFR (CKD) >90 (>60 ml/min/1.73 sqM); Albumin 2.9 g/dL (3.5-5.0); Alkaline Phosphatase 105 U/L (38-126); Anion Gap 8 mmol/L; Blood Urea Nitrogen 12 mg/dL (7-17); Calcium 8.8 mg/dL (8.4-10.2); Carbon Dioxide 25 mmol/L (22-30); Chloride 103 mmol/L (98-107); Glucose 111 mg/dL (74-99); Non-African American GFR(CKD) >90 (>60 ml/min/1.73 sqM); Potassium 3.9 mmol/L (3.5-5.1); Sodium 136 mmol/L (137-145); Total Bilirubin 1.9 mg/dL (0.2-1.3); Total Protein 6.6 g/dL (6.3-8.2)
[2023-02-14 15:25] LABS: Appearance,Urine Clear (Clear); Bilirubin,Urine Negative (Negative); Blood,Urine Moderate (Negative); Color,Urine Colorless; Glucose,Urine (UA) Negative (Negative); Ketones,Urine Negative (Negative); Leukocyte Esterase,Urine Negative (Negative); Mucus,Urine Rare /hpf; Nitrite,Urine Negative (Negative); Protein,Urine Negative (Negative); RBC,Urine 3 /hpf (0-5); Specific Gravity,Urine 1.004 (1.001-1.035); Squamous Epithelial Cell,Urine 1 /hpf (0-4); Urobilinogen,Urine <2.0 mg/dL (<2.0)
[2023-02-14 15:34] LABS: Band Neutrophils % 1 %; Eosinophils # (M) 0.02 k/uL (0-0.7); Lymphocytes # (M) 0.74 k/uL (1.0-4.8); Monocytes # (M) 0.25 k/uL (0-1.0); Neutrophils % (M) 43 %; Nucleated Red Blood Cells 0 /100 WBC (0-0); Total Cells Counted 100
[2023-02-14 15:36] LABS: Platelet Count 39 k/uL (150-450)
--- NOTE | 2023-02-14 16:16 | CT ---
EXAMINATION TYPE: CT chest angio for PE CT DLP: 21822 mGycm, Automated exposure control for dose reduction was used. DATE OF EXAM: 02/14/2023 3:53 PM COMPARISON: Chest radiograph from same day. Multiple CTs of the chest with most recent on 04/08/2022 . CLINICAL INDICATION:Female, 57 years old with history of VANDANA, elevated d-dimer; sob TECHNIQUE/CONTRAST: CTA scan of the thorax is performed with IV Contrast, patient injected with 60 mL of Isovue 370, MIP images are created and reviewed these are created on a separate workstation.. FINDINGS: Pulmonary Artery: There is no evidence for a filling defect within the pulmonary vasculature to sugge st acute pulmonary embolism. The pulmonary artery is enlarged measuring up to 3.8 mm. Lungs/Pleura: Moderate to severe centrilobular emphysema changes. No evidence of focal consolidation, pleural effusion or pneumothorax. Airway: Large airways are patent. Heart: Heart is within normal limits for size. Vasculature: Mild atherosclerotic calcifications are present throughout the aorta and its branches. Mediastinum: No gross evidence of adenopathy. Musculoskeletal: Mild degenerative disc disease changes are present throughout the thoracolumbar spin e. Soft Tissues: Unremarkable. Lower neck: No significant findings. Upper Abdomen: There is free fluid in the upper abdomen. Multiple gallstones are present. The spleen is enlarged. Nodular contour to liver. IMPRESSION: 1. No evidence of pulmonary embolism. 2. Pulmonary hypertension. 3. Hepatic cirrhosis with evidence of hypertension with ascites and splenomegaly.
[2023-02-14] MEDS ORDERED: DEXAMETHASONE SOD PHOSPHATE 10 MG/ML 1 ML VIAL IVP STA (16:36)
[2023-02-14 16:54] VITALS: BP 158/88; PULSE 98; RESP 14; TEMP 97.8
== END 2023-02-14 17:03 | disposition home or self-care (01) ==
LOC: EC 13:51
DX: R06.02 Shortness of breath (principal); G89.29 Other chronic pain; R10.9 Unspecified abdominal pain; R79.89 Other specified abnormal findings of blood chemistry; D72.89 Other specified disorders of white blood cells; J44.9 Chronic obstructive pulmonary disease, unspecified; F17.200 Nicotine dependence, unspecified, uncomplicated; Z20.822 Contact with and (suspected) exposure to COVID-19
CPT/HCPCS: 99285; 96374; 36415; 94640; 93005; 85379; 80053; 83605; 84484; 85025; 85610; 85730; 81001; 87636; 71046; 71275; J1100; Q9967

== ENCOUNTER 2023-05-18 18:21 | Observation (INO) | payer MEDICARE, OTHER ==
[2023-05-18 19:58] LABS: Basophils % (A) 1 %; Eosinophils % (A) 1 %; HCT 42.3 % (34.0-46.0); HGB 14.5 gm/dL (11.4-16.0); Lymphocytes # (A) 0.9 k/uL (1.0-4.8); Lymphocytes % (A) 23 %; MCH 36.4 pg (25.0-35.0); MCHC 34.2 g/dL (31.0-37.0); MCV 106.4 fL (80.0-100.0); Macrocytosis Moderate; Mean Platelet Volume 8.8; Monocytes # (A) 0.3 k/uL (0-1.0); Monocytes % (A) 7 %; Neutrophils # (A) 2.4 k/uL (1.3-7.7); Neutrophils % (A) 65 %; RBC 3.97 m/uL (3.80-5.40); RDW 14.7 % (11.5-15.5); WBC 3.7 k/uL (3.8-10.6)
[2023-05-18] MEDS: HYDROmorphone 0.5 MG/0.5 ML SYRINGE IVP STA ×2 (20:06→21:25)
[2023-05-18 20:08] LABS: INR 1.3 (<1.2); Partial Thromboplastin Time 27.1 sec (22.0-30.0); Prothrombin Time 13.3 sec (10.0-12.5)
[2023-05-18] MEDS: ONDANSETRON 4 MG/2 ML VIAL IVP STA (20:08)
[2023-05-18] MEDS: PANTOPRAZOLE 40 MG/10 ML VIAL IVP STA (20:08)
[2023-05-18] MEDS: SODIUM CHLORIDE 0.9% 1,000 ML IV STA (20:09)
[2023-05-18 20:10] LABS: ALT 26 U/L (4-34); African American GFR (CKD) >90 (>60 ml/min/1.73 sqM); Alcohol <10 mg/dL; Amylase 51 U/L (30-110); Anion Gap 6 mmol/L; Blood Urea Nitrogen 14 mg/dL (7-17); Calcium 8.8 mg/dL (8.4-10.2); Carbon Dioxide 23 mmol/L (22-30); Chloride 112 mmol/L (98-107); Glucose 106 mg/dL (74-99); Lipase 106 U/L (23-300); Non-African American GFR(CKD) >90 (>60 ml/min/1.73 sqM); Sodium 141 mmol/L (137-145)
[2023-05-18 20:15] LABS: Potassium 4.5 mmol/L (3.5-5.1)
[2023-05-18 20:16] LABS: AST 89 U/L (14-36); Albumin 3.8 g/dL (3.5-5.0); Alkaline Phosphatase 78 U/L (38-126); Total Protein 7.9 g/dL (6.3-8.2)
--- NOTE | 2023-05-18 20:27 | ED ---
General Adult HPI - General Chief complaint: Nausea/Vomiting/Diarrhea Stated complaint: Vomitting and diarrhea Time Seen by Provider: 05/18/23 18:51 Source: patient, RN notes reviewed, old records reviewed Mode of arrival: ambulatory Limitations: no limitations - History of Present Illness Initial comments: Patient is a 57-year-old female who presents emergency department complaining of diffuse abdominal pain which is chronic, diarrhea, vomiting for the last 3 days. States she cannot hold down any medications including her pain medications. Denies any chest pain or shortness of breath. Denies any fevers, chills, cough. Denies any urinary complaints. Has no other acute complaints at this time. Patient does have a family member with similar complaints. Presents for further evaluation at this time. Complains of her typical chronic dry eyes abdominal pain. Is normally on oral Dilaudid at home. Presents for further evaluation at this time. Have a history of chronic alcohol liver disease with ascites. States her abdomen is not any more swollen than baseline. - Related Data Home Medications Medication Instructions Recorded Confirmed HYDROmorphone [Dilaudid] 2 mg PO Q6H PRN 09/06/19 01/26/23 Hydrocodone/Acetaminophen [[place] 1 tab PO Q6H PRN 09/06/19 01/26/23 10-325] Allergies Allergy/AdvReac Type Severity Reaction Status Date / Time No Known Allergies Allergy Verified 05/18/23 18:41 Review of Systems ROS Statement: Those systems with pertinent positive or pertinent negative responses have been documented in the HPI. Review of Systems: CONST: Denies fever EYES: Denies blurry vision ENT: Denies nasal congestion C/V: Denies Chest pain RESP: Denies shortness of breath GI: Endorses abdominal pain : Denies dysuria SKIN: Denies rash. MSK: Denies joint pain. NEURO: Denies headache ROS Other: All systems not noted in ROS Statement are negative. Past Medical History Past Medical History: Cancer, COPD, GERD/Reflux, GI Bleed, Hearing Disorder / Deafness, Liver Disease Additional Past Medical History / Comment(s): Hepatitis C, intractable ascities with multiple paracentesis, cirrhosis, peritonitis, pancytopenia, vertigo once; multiple upper GI bleeds, esophageal varicies/esophageal banding, left breast cancer had chemo last on 09-12-16-did not tolerate-completed only 3 cycles-then it was stopped/received radiation treatments/pt states she did not follow up and so did not have surgery lt ear deafness, R ear [place], occasional R leg edema. History of Any Multi-Drug Resistant Organisms: None Reported Past Surgical History: Adenoidectomy, Breast Surgery, Tonsillectomy Additional Past Surgical History / Comment(s): Multiple paracentesises, EGDs, esophageal banding, right chest mediport since removed, l breast bx., Past Anesthesia/Blood Transfusion Reactions: No Reported Reaction Additional Past Anesthesia/Blood Transfusion Reaction / Comment(s): blood transfusions- no reaction Past Psychological History: Anxiety Smoking Status: Current some day smoker, Light tobacco smoker Past Alcohol Use History: None Reported Past Drug Use History: None Reported - Past Family History Mother Family Medical History: Cancer Additional Family Medical History / Comment(s): of lung ca at the age of 59yrs. She was a smoker. Father Family Medical History: Myocardial Infarction ([place]) Additional Family Medical History / Comment(s): from 2nd heart attack at the age of 59yrs. General Exam - General Exam Comments Initial Comments: General: Appears in mild distress secondary to abdominal pain. HEAD: Normal with no signs of head trauma. EYES: PERRLA, EOMI, conjunctiva normal, no discharge. Possible slight scleral icterus. ENT: Hearing grossly intact, normal oropharynx. Dry mucous membranes. RESPIRATORY: Clear breath sounds bilaterally. No wheezes, rales, or rhonchi. C/V: Regular rate and rhythm. S1 and S2 auscultated, no edema, peripheral pulses 2+ and intact throughout ABD: Abdomen is soft but mildly distended generally. Nonspecific nonfocal tenderness to palpation. No guarding. No rebound tenderness. No peritoneal signs. EXT: Normal range of motion, no obvious deformity SKIN: No rashes or lesions observed on exposed skin. NEURO: Alert and oriented x 4. Limitations: no limitations Course Vital Signs 05/18/23 05/18/23 18:38 21:00 Temperature 97.8 F Pulse Rate 86 87 Respiratory 17 19 Rate Blood Pressure 147/76 127/74 O2 Sat by Pulse 96 98 Oximetry Medical Decision Making - Medical Decision Making Was pt. sent in by a medical professional or institution (, PA, MAJOR CASE DETECTIVE, urgent care, hospital, or longterm...) When possible be specific @ -No Did you speak to anyone other than the patient for history (EMS, parent, family, police, friend...)? What history was obtained from this source @ -No Did you review nursing and triage notes (agree or disagree)? Why? @ -I reviewed and agree with nursing and triage notes Were old charts reviewed (outside hosp., previous admission, EMS record, old EKG, old radiological studies, urgent care reports/EKG's, longterm records)? Report findings @ -Old charts reviewed. Differential Diagnosis (chest pain, altered mental status, abdominal pain women, abdominal pain men, vaginal bleeding, weakness, fever, dyspnea, syncope, headache, dizziness, GI bleed, back pain, seizure, CVA, palpatations, mental health, musculoskeletal)? @ -Differential Abdominal Pain Women: Appendicitis, Cholecystitis, diverticulosis, ischemic bowel, pancreatitis, hepatitis, UTI, gastroenteritis, AAA, incarcerated hernia, bowel obstruction, constipation, inflammatory bowel, hepatitis, peptic ulcer disease, splenic infarction, perforated viscus, vulvitis, ovarian torsion, PID, kidney stone, placenta abruption, this is not meant to be an all-inclusive list EKG interpreted by me (3pts min.). @ -As above X-rays interpreted by me (1pt min.). @ -None done CT interpreted by me (1pt min.). @ -CT abdomen pelvis reveals findings consistent with colitis with small bowel edema. Patient has known liver cirrhosis which is also seen as well as ascites. U/S interpreted by me (1pt. min.). @ -None done What testing was considered but not performed or refused? (CT, X-rays, U/S, la bs)? Why? @ -None What meds were considered but not given or refused? Why? @ -None Did you discuss the management of the patient with other professionals (professionals i.e. DrMalinda, PA, MAJOR CASE DETECTIVE, lab, RT, psych nurse, social science research assistant, manager school, teacher, affirmative action officer, dependency case manager)? Give summary @ -Discussed with Dr. Estrada who accepted the admission. Was smoking cessation discussed for >3mins.? @ -No Was critical care preformed (if so, how long)? @ -No Were there social determinants of health that impacted care today? How? (Homelessness, low income, unemployed, alcoholism, drug addiction, transport ation, low edu. Level, literacy, decrease access to med. care, halfway, rehab)? @ -No Was there de-escalation of care discussed even if they declined (Discuss DNR or withdrawal of care, Hospice)? DNR status @ -No What co-morbidities impacted this encounter? (DM, HTN, Smoking, COPD, CAD, Cancer, CVA, ARF, Chemo, Hep., AIDS, mental health diagnosis, sleep apnea, morbid obesity)? @ -Ascites, chronic liver cirrhosis Was patient admitted / discharged? Hospital course, mention meds given and route, prescriptions, significant lab abnormalities, going to OR and other pertinent info. @ -Based on the patient's presentation and physical exam, patient presents emergency department complaining of abdominal pain with nausea, vomiting, diarrhea. Vital signs are within acceptable limits. However we will obtain CT imaging the abdomen pelvis as well as abdominal laboratory studies. Screening EKG will also be obtained. Patient will be administered IV pain medications as well as a 1 L fluid bolus, IV Protonix, Zofran. Patient in agreement this plan. Vital signs are within acceptable limits. EKG shows no signs of acute ischemia. Patient's laboratory studies are relatively unremarkable. Lactic acid minimally elevated to 2.2. Bilirubin mildly elevated at 4.0 however patient does have a history of chronically elevated bilirubins ranging anywhere from 2-4 over the last [address] imaging reveals what appears to be diffuse colitis with edema of the small bowels. Remainder of labs unremarkable. I discussed results with the patient. We will admit for observation for intractable nausea and vomiting and abdominal pain in setting of what appears to be acute colitis. Will continue IV fluids, analgesia, antiemetics. She was in agreement this plan. I spoke with the admitting physician, Dr. Estrada who accepted the patient. Undiagnosed new problem with uncertain prognosis? @ -No Drug Therapy requiring intensive monitoring for toxicity (Heparin, Nitro, Insulin, Cardizem)? @ -No Were any procedures done? @ -No Diagnosis/symptom? @ -Intractable abdominal pain, nausea, vomiting, dehydration, diarrhea in the setting of colitis Acute, or Chronic, or Acute on Chronic? @ -Acute Uncomplicated (without systemic symptoms) or Complicated (systemic symptoms)? @ -Complicated Side effects of treatment? @ -No Exacerbation, Progression, or Severe Exacerbation? @ -No Poses a threat to life or bodily function? How? (Chest pain, [place], pneumonia, PE, COPD, DKA, ARF, appy, cholecystitis, CVA, Diverticulitis, Homicidal, Suicidal, threat to staff... and all critical care pts) @ -Yes - Lab Data Result diagrams: 05/18/23 19:37 05/18/23 19:37 Lab Results 05/18/23 05/18/23 05/18/23 Range/Units 08:30 19:37 19:37 WBC 3.7 L (3.8-10.6) k/uL RBC 3.97 (3.80-5.40) m/uL Hgb 14.5 (11.4-16.0) gm/dL Hct 42.3 (34.0-46.0) % MCV 106.4 H (80.0-100.0) fL MCH 36.4 H (25.0-35.0) pg MCHC 34.2 (31.0-37.0) g/dL RDW 14.7 (11.5-15.5) % Plt Count 63 L (150-450) k/uL MPV 8.8 Neutrophils % 65 % Lymphocytes % 23 % Monocytes % 7 % Eosinophils % 1 % Basophils % 1 % Neutrophils # 2.4 (1.3-7.7) k/uL Lymphocytes # 0.9 L (1.0-4.8) k/uL Monocytes # 0.3 (0-1.0) k/uL Eosinophils # 0.0 (0-0.7) k/uL Basophils # 0.0 (0-0.2) k/uL Macrocytosis Moderate PT 13.3 H (10.0-12.5) sec INR 1.3 H (<1.2) APTT 27.1 (22.0-30.0) sec Sodium (137-145) mmol/L Potassium (3.5-5.1) mmol/L Chloride (98-107) mmol/L Carbon Dioxide (22-30) mmol/L Anion Gap mmol/L BUN (7-17) mg/dL Creatinine (0.52-1.04) mg/dL Est GFR (CKD-EPI)AfAm (>60 ml/min/1.73 sqM) Est GFR (CKD-EPI)NonAf (>60 ml/min/1.73 sqM) Glucose (74-99) mg/dL Plasma Lactic Acid [place] (0.7-2.0) mmol/L Calcium (8.4-10.2) mg/dL Total Bilirubin (0.2-1.3) mg/dL AST (14-36) U/L ALT (4-34) U/L Alkaline Phosphatase (38-126) U/L Total Protein (6.3-8.2) g/dL Albumin (3.5-5.0) g/dL Amylase (30-110) U/L Lipase (23-300) U/L Serum Alcohol mg/dL Influenza Type A (PCR) Not Detected (Not Detectd) Influenza Type B (PCR) Not Detected (Not Detectd) RSV (PCR) Not Detected (Not Detectd) SARS-CoV-2 (PCR) Not Detected (Not Detectd) 05/18/23 05/18/23 Range/Units 19:37 19:37 WBC (3.8-10.6) k/uL RBC (3.80-5.40) m/uL Hgb (11.4-16.0) gm/dL Hct (34.0-46.0) % MCV (80.0-100.0) fL MCH (25.0-35.0) pg MCHC (31.0-37.0) g/dL RDW (11.5-15.5) % Plt Count (150-450) k/uL MPV Neutrophils % % Lymphocytes % % Monocytes % % Eosinophils % % Basophils % % Neutrophils # (1.3-7.7) k/uL Lymphocytes # (1.0-4.8) k/uL Monocytes # (0-1.0) k/uL Eosinophils # (0-0.7) k/uL Basophils # (0-0.2) k/uL Macrocytosis PT (10.0-12.5) sec INR (<1.2) APTT (22.0-30.0) sec Sodium 141 (137-145) mmol/L Potassium 4.5 (3.5-5.1) mmol/L Chloride 112 H (98-107) mmol/L Carbon Dioxide 23 (22-30) mmol/L Anion Gap 6 mmol/L BUN 14 (7-17) mg/dL Creatinine 0.55 (0.52-1.04) mg/dL Est GFR (CKD-EPI)AfAm >90 (>60 ml/min/1.73 sqM) Est GFR (CKD-EPI)NonAf >90 (>60 ml/min/1.73 sqM) Glucose 106 H (74-99) mg/dL Plasma Lactic Acid [place] 2.2 H* (0.7-2.0) mmol/L Calcium 8.8 (8.4-10.2) mg/dL Total Bilirubin 4.0 H (0.2-1.3) mg/dL AST 89 H (14-36) U/L ALT 26 (4-34) U/L Alkaline Phosphatase 78 (38-126) U/L Total Protein 7.9 (6.3-8.2) g/dL Albumin 3.8 (3.5-5.0) g/dL Amylase 51 (30-110) U/L Lipase 106 (23-300) U/L Serum Alcohol <10 mg/dL Influenza Type A (PCR) (Not Detectd) Influenza Type B (PCR) (Not Detectd) RSV (PCR) (Not Detectd) SARS-CoV-2 (PCR) (Not Detectd) - EKG Data -: EKG Interpreted by Me EKG Comments: 12-lead Electrocardiogram Interpretation Note EKG was reviewed and interpreted by myself. 12-lead ECG performed at 1935 is i nterpreted by me as revealing normal sinus rhythm at a rate of 87 beats per minute. Left axis deviation. [place] interval is 141 ms, QRS duration is 82 ms, QTc is 413 ms.. Chronic T wave inversion seen in V2.. R wave progression across the precordium was satisfactory. By my interpretation this EKG is non- diagnostic for acute ischemia. Similar to prior EKGs. Disposition Clinical Impression: Nausea and vomiting, Diarrhea, Dehydration, Colitis Disposition: ADMITTED IP TO THIS HOSP Condition: Stable Referrals: Mark Estrada MD [Primary Care Provider] - 1-2 days Time of Disposition: 21:28
[2023-05-18 20:38] LABS: Platelet Count 63 k/uL (150-450)
--- NOTE | 2023-05-18 21:22 | CT ---
EXAMINATION TYPE: CT abdomen pelvis w con DATE OF EXAM: 05/18/2023 COMPARISON: 01/25/2023 HISTORY: Abdominal distention Automated exposure control for dose reduction was used. TECHNIQUE: Helical acquisition of images was performed from the lung bases through the pelvis follow ing the uneventful menstruation of nonionic IV contrast material. FINDINGS: Visualized lung bases are clear. There is a massive amount of ascites within the abdomen similar to that seen on the prior study. The liver is decreased in size and lobular in contour consistent with cirrhosis. There is mild spleno megaly. There is evidence for portal hypertension and varices intra-abdominally. Pancreas is atrophic. There is no solid renal mass process. The caliber of the abdominal aorta is normal. The small bowel loops are borderline enlarged and there is diffuse wall thickening secondary to what appears to be edema. There is no definite bowel obstruction. There is no pelvic adenopathy. The osseous structures are intact. IMPRESSION: 1. Massive ascites. 2. Cirrhotic liver with an mild splenomegaly and portal hypertension. 3. Diffusely edematous small bowel.
[2023-05-18] MEDS ORDERED: ONDANSETRON 4 MG/2 ML VIAL IVP PRN (21:29)
[2023-05-18] MEDS ORDERED: NALOXONE 0.4 MG/ML 1 ML VIAL IV PRN (21:29)
[2023-05-18] MEDS: SODIUM CHLORIDE 0.9% 1,000 ML IV SCH (22:57)
[2023-05-19] MEDS: HYDROmorphone 0.5 MG/0.5 ML SYRINGE IVP PRN (01:04)
[2023-05-19 03:53] LABS: Appearance,Urine Clear (Clear); Bilirubin,Urine Negative (Negative); Blood,Urine Negative (Negative); Color,Urine Yellow; Glucose,Urine (UA) Negative (Negative); Ketones,Urine 1+ (Negative); Leukocyte Esterase,Urine Negative (Negative); Nitrite,Urine Negative (Negative); PH, Urine 6.5 (5.0-8.0); Protein,Urine Trace (Negative); Urobilinogen,Urine <2.0 mg/dL (<2.0)
[2023-05-19 03:55] LABS: Specific Gravity,Urine >1.050 (1.001-1.035)
[2023-05-19 08:06] LABS: African American GFR (CKD) >90 (>60 ml/min/1.73 sqM); Anion Gap 7 mmol/L; Blood Urea Nitrogen 14 mg/dL (7-17); Calcium 7.5 mg/dL (8.4-10.2); Carbon Dioxide 21 mmol/L (22-30); Chloride 113 mmol/L (98-107); Glucose 176 mg/dL (74-99); Non-African American GFR(CKD) >90 (>60 ml/min/1.73 sqM); Potassium 2.9 mmol/L (3.5-5.1); Sodium 141 mmol/L (137-145)
[2023-05-19 08:21] LABS: Basophils % (A) 1 %; Eosinophils # (A) 0.1 k/uL (0-0.7); Eosinophils % (A) 2 %; HCT 33.9 % (34.0-46.0); Hypochromasia Slight; Lymphocytes # (A) 1.6 k/uL (1.0-4.8); Lymphocytes % (A) 38 %; MCH 35.9 pg (25.0-35.0); MCHC 32.6 g/dL (31.0-37.0); Macrocytosis Marked; Mean Platelet Volume 9.6; Monocytes # (A) 0.4 k/uL (0-1.0); Monocytes % (A) 8 %; Neutrophils % (A) 48 %; RBC 3.08 m/uL (3.80-5.40); WBC 4.3 k/uL (3.8-10.6)
[2023-05-19 08:23] LABS: HGB 11.1 gm/dL (11.4-16.0)
[2023-05-19 08:24] LABS: Platelet Count 59 k/uL (150-450)
[2023-05-19] MEDS: PANTOPRAZOLE 40 MG/10 ML VIAL IV SCH (08:40)
[2023-05-19] MEDS: HYDROmorphone 2 MG TAB PO SCH (13:15)
[2023-05-19] MEDS: HYDROcodone/APAP 10-325MG 1 EACH TAB PO SCH (13:58)
--- NOTE | 2023-05-19 23:34 | PN ---
PROGRESS NOTE DATE OF SERVICE: 05/19/2023 CHIEF COMPLAINT: Abdominal pain, colitis, nausea, vomiting, and probable viral gastroenteritis. HISTORY OF PRESENT ILLNESS: This lady is still having some nausea and diarrhea. She has had no fever or chills, and she has not had a great deal of abdominal pain. PHYSICAL EXAMINATION: CHEST: Breath sounds are diminished due to her COPD and emphysema. ABDOMEN: Distended. Bowel sounds are heard. IMPRESSION: 1. Possible colitis. 2. Viral gastroenteritis. 3. Ascites. 4. Cirrhosis. 5. Chronic obstructive pulmonary disease. 6. History of carcinoma of the breast. PLAN: Continue with IV fluids and antiemetics. MMODL / IJN: [id number] /
--- NOTE | 2023-05-20 00:55 | HP ---
HISTORY AND PHYSICAL CHIEF COMPLAINT: Abdominal pain with cramps, diarrhea, nausea and vomiting. HISTORY OF PRESENT ILLNESS: This lady presented to the emergency room with nausea, vomiting, diarrhea. Her daughter had the same symptoms. She denied melena nor hematochezia. She had no fever or chills. In the emergency room, it was felt that this could represent a colitis and she was admitted. She has a long-standing history of hepatitis C, cirrhosis, ascites, COPD, breast cancer, and narcotic abuse. REVIEW OF SYSTEMS: She has had no fever, chills, hematemesis, jaundice, hematuria, frequency, urgency, melena, hematochezia, reaccumulation of her ascites. Past medical history, family history, and personal and social histories are all unremarkable and unchanged from her previous admitting and discharge summaries. She takes a high dose of Vicodin and Dilaudid every day and has done so for several years. She has not had any recurrence of her breast cancer. MEDICATIONS: Include, 1. Ondansetron. 2. Dilaudid. 3. Vicodin. 4. Lasix. 5. Spironolactone. 6. Vitamin D. ALLERGIES: She is not allergic to any medication. SOCIAL HISTORY: She smokes daily. She can be a quite unpleasant individual. PHYSICAL EXAMINATION: VITAL SIGNS: Blood pressure is 115/68 with a pulse of 83, respirations of 35, and she is afebrile. GENERAL: She appeared to be chronically ill. SKIN: Dry. There is no jaundice. HEAD, EARS, EYES, NOSE, MOUTH AND THROAT: Unremarkable. CHEST: Clear with an increased AP diameter. CARDIAC: Demonstrated sinus rhythm. ABDOMEN: Protuberant with ascites and she would not allow the exam. EXTREMITIES: Normal. IMPRESSION: 1. Nausea, vomiting, and diarrhea. 2. Possible colitis. 3. Dehydration. 4. Cirrhosis with ascites. 5. History of hepatitis C. 6. Chronic obstructive pulmonary disease. 7. History of carcinoma of the breast. PLAN: 1. Bedrest. 2. IV fluids. 3. Antidiarrheals and antiemetics. MMODL / IJN: [id number] /
[2023-05-20] MEDS: HYDROmorphone 2 MG TAB PO SCH (12:21)
[2023-05-20] MEDS: POTASSIUM CHLORIDE ER 20 MEQ TAB.ER PO SCH (12:49)
[2023-05-20 14:48] VITALS: BP 112/65; PULSE 86; RESP 20; TEMP 97.6
[2023-05-20] MEDS: HYDROcodone/APAP 10-325MG 1 EACH TAB PO SCH (15:29)
--- NOTE | 2023-05-21 11:01 | DS ---
DISCHARGE SUMMARY CHIEF COMPLAINT: Crampy abdominal pain with nausea, vomiting, and diarrhea. HISTORY OF PRESENT ILLNESS AND PHYSICAL EXAMINATION: Details of this lady's history and physical can be found in the initial workup. LABORATORY STUDIES: While she is in the hospital, she had laboratory studies, details of which can be found in the laboratory section of her chart. COURSE IN THE HOSPITAL: After admission, she was placed on bedrest, started intravenous fluids and monitored for any increase in abdominal pain, change in GI symptoms, etc. Nausea and diarrhea disappeared and her diet was advanced and she was doing well. It was felt that she could go home on the and she will go home on her usual activity, diet, and medication, and be followed up in the office. FINAL DIAGNOSES: 1. Viral gastroenteritis. 2. Dehydration. 3. Cirrhosis. 4. Hepatitis C. 5. History of carcinoma of breast. OPERATIONS: None. CONSULTATION: None. She is improved. MMODL / IJN: [id number] /
== END 2023-05-20 17:15 | disposition home or self-care (01) ==
LOC: EC 18:21 → 6NMEDSUR 21:31
PROVIDERS: ADMIT Family Medicine; ATTEND Family Medicine
DX: A08.4 Viral intestinal infection, unspecified (principal); E86.0 Dehydration; K70.9 Alcoholic liver disease, unspecified; B19.20 Unspecified viral hepatitis C without hepatic coma; J44.9 Chronic obstructive pulmonary disease, unspecified; K21.9 Gastro-esophageal reflux disease without esophagitis; H91.90 Unspecified hearing loss, unspecified ear; F17.210 Nicotine dependence, cigarettes, uncomplicated; Z85.9 Personal history of malignant neoplasm, unspecified; Z79.899 Other long term (current) drug therapy; Z85.3 Personal history of malignant neoplasm of breast
CPT/HCPCS: 96376 ×2; 96361 ×2; 96365; 96366 ×2; 96375; 99285; 36415; 93005; 80053; 80048; 82150; 83605; 83690; 85025 ×2; 85610; 85730; 81003; 87636; 74177; G0378 ×3; G0480; J2405; C9113 ×3; J1170 ×2; Q9967; 80320

== ENCOUNTER 2023-05-26 19:17 | Observation (INO) | payer MEDICARE, OTHER ==
--- NOTE | 2023-05-26 19:35 | ED ---
General Adult HPI - General Source: patient Mode of arrival: wheelchair Limitations: no limitations <Tevin Urbina - Last Filed: 05/26/23 19:35> - General Source: RN notes reviewed, old records reviewed Mode of arrival: wheelchair Limitations: altered mental status - History of Present Illness -: year(s) Radiation: non-radiation Severity scale (1-10): 10 Quality: constant Consistency: constant Improves with: none Worsens with: none Associated Symptoms: denies other symptoms <Noah Byrne - Last Filed: 05/27/23 02:03> - General Stated complaint: Legs Swollen Time Seen by Provider: 05/26/23 19:35 - History of Present Illness Initial comments: 57-year-old female presenting with chief complaint of bilateral lower extremity edema. No chest pain or difficulty breathing. (Tevin Urbina) This is a 57-year-old female to ER for severe abdominal pain with altered mental status. Patient has no travel history no sick contacts no other complaints no fevers mild nausea no vomiting does have positive shortness of breath with history of COPD known. Severe abdominal pain lower extremity edema (Noah Byrne) - Related Data Home Medications Medication Instructions Recorded Confirmed HYDROmorphone [Dilaudid] 2 mg PO QID 09/06/19 05/18/23 Hydrocodone/Acetaminophen [[place] 1 tab PO QID 09/06/19 05/18/23 10-325] Allergies Allergy/AdvReac Type Severity Reaction Status Date / Time No Known Allergies Allergy Verified 05/26/23 19:36 Review of Systems ROS Other: All systems not noted in ROS Statement are negative. <Tevin Urbina - Last Filed: 05/26/23 19:35> ROS Other: All systems not noted in ROS Statement are negative. <Noah Byrne - Last Filed: 05/27/23 02:03> ROS Statement: Those systems with pertinent positive or pertinent negative responses have been documented in the HPI. Past Medical History Past Medical History: Cancer, COPD, GERD/Reflux, GI Bleed, Hearing Disorder / Deafness, Liver Disease Additional Past Medical History / Comment(s): Hepatitis C, intractable ascities with multiple paracentesis, cirrhosis, peritonitis, pancytopenia, vertigo once; multiple upper GI bleeds, esophageal varicies/esophageal banding, left breast cancer had chemo last on 09-12-16-did not tolerate-completed only 3 cycles-then it was stopped/received radiation treatments/pt states she did not follow up and so did not have surgery lt ear deafness, R ear [place], occasional R leg edema. History of Any Multi-Drug Resistant Organisms: None Reported Past Surgical History: Adenoidectomy, Breast Surgery, Tonsillectomy Additional Past Surgical History / Comment(s): Multiple paracentesises, EGDs, esophageal banding, right chest mediport since removed, l breast bx., Past Anesthesia/Blood Transfusion Reactions: No Reported Reaction Additional Past Anesthesia/Blood Transfusion Reaction / Comment(s): blood transfusions- no reaction Past Psychological History: Anxiety Additional Psychological History / Comment(s): Patient lives with her son. She is currently on disability. She uses a wheelchair that she states her daughter just bought her. She gets to appts by cab or her jazmin. Smoking Status: Current some day smoker, Light tobacco smoker Past Alcohol Use History: None Reported Additional Past Alcohol Use History / Comment(s): Patient started smoking at age 14. She was a ppd smoker but cut back to one to 1-3 cigarettes per day in 2017. No history of alcohol abuse. Past Drug Use History: None Reported - Past Family History Mother Family Medical History: Cancer Additional Family Medical History / Comment(s): of lung ca at the age of 59yrs. She was a smoker. Father Family Medical History: Myocardial Infarction (PR) Additional Family Medical History / Comment(s): from 2nd heart attack at the age of 59yrs. <Tevin Urbina - Last Filed: 05/26/23 19:35> General Exam <Tevin Urbina - Last Filed: 05/26/23 19:35> General appearance: alert, in no apparent distress Head exam: Present: atraumatic, normocephalic, normal inspection Eye exam: Present: normal appearance, PERRL, EOMI. Absent: scleral icterus, conjunctival injection, periorbital swelling ENT exam: Present: normal exam, mucous membranes moist Neck exam: Present: normal inspection. Absent: tenderness, meningismus, lymphadenopathy Respiratory exam: Present: normal lung sounds bilaterally. Absent: respiratory distress, wheezes, rales, rhonchi, stridor Cardiovascular Exam: Present: regular rate, normal rhythm, normal heart sounds. Absent: systolic murmur, diastolic murmur, rubs, gallop, clicks GI/Abdominal exam: Present: soft, normal bowel sounds. Absent: distended, tenderness, guarding, rebound, rigid Extremities exam: Present: normal inspection, full ROM, normal capillary refill. Absent: tenderness, pedal edema, joint swelling, calf tenderness Back exam: Present: normal inspection Neurological exam: Present: alert, oriented X3, CN II-XII intact Psychiatric exam: Present: normal affect, normal mood Skin exam: Present: warm, dry, intact, normal color. Absent: rash <Noah Byrne - Last Filed: 05/27/23 02:03> - General Exam Comments Initial Comments: Visual Physical Exam Vital signs reviewed General: Well-appearing, nontoxic, no acute distress. Head: Normocephalic, atraumatic Eyes: PERRLA, EOMI ENT: Airway patent Chest: Nonlabored breathing Skin: No visual rash, normal skin tone Neuro: Alert and oriented 3 Musculoskeletal: No gross abnormalities (Tevin Urbina) Course <Noah Byrne - Last Filed: 05/27/23 02:03> Vital Signs 05/26/23 05/27/23 19:35 00:23 Temperature 98.1 F Pulse Rate 98 88 Respiratory 18 18 Rate Blood Pressure 117/62 115/63 O2 Sat by Pulse 99 99 Oximetry - Reevaluation(s) Reevaluation #1: 05/27/23 02:02 Medical records reviewed (Noah Byrne) Reevaluation #2: 05/27/23 02:02 Patient symptoms unchanged pain improved (Noah Byrne) Reevaluation #3: 05/27/23 02:02 Patient informed of results and questions answered (Noah Byrne) Reevaluation #4: Was pt. sent in by a medical professional or institution (, PA, DOG BEAUTICIAN, urgent care, hospital, or fci...) When possible be specific @ -no Did you speak to anyone other than the patient for history (EMS, parent, family, police, friend...)? What history was obtained from this source @ -no Did you review nursing and triage notes (agree or disagree)? Why? @ -agree Are old charts reviewed (outside hosp., previous admission, EMS record, old EKG, old radiological studies, urgent care reports/EKG's, fci records)? Report findings @ -yes Differential Diagnosis (chest pain, altered mental status, abdominal pain women, abdominal pain men, vaginal bleeding, weakness, fever, dyspnea, syncope, headache, dizziness, GI bleed, back pain, seizure, CVA, palpatations, mental health, musculoskeletal)? @ -prior EKG interpreted by me (3pts min.). @ -yes X-rays interpreted by me (1pt min.). @ -yes negative for acute disease CT interpreted by me (1pt min.). @ -no U/S interpreted by me (1pt. min.). @ -no What testing was considered but not performed or refused? (CT, X-rays, U/S, labs)? Why? @ -none What meds were considered but not given or refused? Why? @ -none Did you discuss the management of the patient with other professionals (professionals i.e. , PA, DOG BEAUTICIAN, lab, RT, psych nurse, web content & social media manager, drop hammer set up operator, teacher, parking control officer, pillowcase sewer)? Give summary @ -no Was smoking cessation discussed for >3mins.? @ -no Was critical care preformed (if so, how long)? @ -no Were there social determinants of health that impacted care today? How? (Homelessness, low income, unemployed, alcoholism, drug addiction, transportation, low edu. Level, literacy, decrease access to med. care, shelter, rehab)? @ -none Was there de-escalation of care discussed even if they declined (Discuss DNR or withdrawal of care, Hospice)? DNR status @ -no What co-morbidities impacted this encounter? (DM, HTN, Smoking, COPD, CAD, Cancer, CVA, ARF, Chemo, Hep., AIDS, mental health diagnosis, sleep apnea, morbid obesity)? @ -none Was patient admitted / discharged? Hospital course, mention meds given and route, prescriptions, significant lab abnormalities, going to OR and other pertinent info. @ - Undiagnosed new problem with uncertain prognosis? @ -no Drug Therapy requiring intensive monitoring for toxicity (Heparin, Nitro, Insulin, Cardizem)? @ -no Were any procedures done? @ -no Diagnosis/symptom? @ - Acute, or Chronic, or Acute on Chronic? @ -Acute Uncomplicated (without systemic symptoms) or Complicated (systemic symptoms)? @ -Complicated Side effects of treatment? @ -no Exacerbation, Progression, or Severe Exacerbation? @ -exacerbation Poses a threat to life or bodily function? How? (Chest pain, [place], PR, pneumonia, PE, COPD, DKA, ARF, appy, cholecystitis, CVA, Diverticulitis, Homicidal, Suicidal, threat to staff... and all critical care pts) @ -yes (Noah Byrne) Reevaluation #5: Differential Abdominal Pain Women: Appendicitis, Cholecystitis, diverticulosis, ischemic bowel, pancreatitis, hepatitis, UTI, gastroenteritis, AAA, incarcerated hernia, bowel obstruction, constipation, inflammatory bowel, hepatitis, peptic ulcer disease, splenic infarction, perforated viscus, vulvitis, ovarian torsion, PID, kidney stone, p lacenta abruption, this is not meant to be an all-inclusive list (Noah Byrne) Medical Decision Making <Tevin Urbina - Last Filed: 05/26/23 19:35> - Lab Data Result diagrams: 05/26/23 19:40 05/26/23 19:40 - Radiology Data Radiology results: report reviewed, image reviewed <Noah Byrne - Last Filed: 05/27/23 02:03> - Medical Decision Making I performed the quick note portion of this visit, electronically signed Tevin Urbina PA-C (Tevin Urbina) 57 female will be admitted for severe abdominal pain edema and ascites, uncontrolled pain shortness of breath (Noah Byrne) - Lab Data Lab Results 05/26/23 05/26/23 05/26/23 Range/Units 19:40 19:40 19:40 WBC 3.2 L (3.8-10.6) k/uL RBC 3.21 L (3.80-5.40) m/uL Hgb 11.8 (11.4-16.0) gm/dL Hct 34.8 (34.0-46.0) % MCV 108.3 H (80.0-100.0) fL MCH 36.8 H (25.0-35.0) pg MCHC 34.0 (31.0-37.0) g/dL RDW 15.2 (11.5-15.5) % Plt Count 61 L (150-450) k/uL MPV 9.7 Neutrophils % (Manual) 51 % Lymphocytes % (Manual) 29 % Monocytes % (Manual) 16 % Eosinophils % (Manual) 4 % Neutrophils # (Manual) 1.63 (1.3-7.7) k/uL Lymphocytes # (Manual) 0.93 L (1.0-4.8) k/uL Monocytes # (Manual) 0.51 (0-1.0) k/uL Eosinophils # (Manual) 0.13 (0-0.7) k/uL Nucleated RBCs 0 (0-0) /100 WBC Manual Slide Review Performed Poikilocytosis Slight Macrocytosis Marked A PT 13.5 H (10.0-12.5) sec INR 1.3 H (<1.2) APTT 29.8 (22.0-30.0) sec Sodium 132 L (137-145) mmol/L Potassium 4.0 (3.5-5.1) mmol/L Chloride 104 (98-107) mmol/L Carbon Dioxide 22 (22-30) mmol/L Anion Gap 6 mmol/L BUN 16 (7-17) mg/dL Creatinine 0.62 (0.52-1.04) mg/dL Est GFR (CKD-EPI)AfAm >90 (>60 ml/min/1.73 sqM) Est GFR (CKD-EPI)NonAf >90 (>60 ml/min/1.73 sqM) Glucose 119 H (74-99) mg/dL Calcium 8.1 L (8.4-10.2) mg/dL Magnesium 2.1 (1.6-2.3) mg/dL Total Bilirubin 4.2 H (0.2-1.3) mg/dL AST 38 H (14-36) U/L ALT 19 (4-34) U/L Alkaline Phosphatase 69 (38-126) U/L Troponin I (0.000-0.034) ng/mL NT-Pro-B Natriuret Pep 356 pg/mL Total Protein 6.4 (6.3-8.2) g/dL Albumin 2.8 L (3.5-5.0) g/dL 05/26/23 Range/Units 19:40 WBC (3.8-10.6) k/uL RBC (3.80-5.40) m/uL Hgb (11.4-16.0) gm/dL Hct (34.0-46.0) % MCV (80.0-100.0) fL MCH (25.0-35.0) pg MCHC (31.0-37.0) g/dL RDW (11.5-15.5) % Plt Count (150-450) k/uL MPV Neutrophils % (Manual) % Lymphocytes % (Manual) % Monocytes % (Manual) % Eosinophils % (Manual) % Neutrophils # (Manual) (1.3-7.7) k/uL Lymphocytes # (Manual) (1.0-4.8) k/uL Monocytes # (Manual) (0-1.0) k/uL Eosinophils # (Manual) (0-0.7) k/uL Nucleated RBCs (0-0) /100 WBC Manual Slide Review Poikilocytosis Macrocytosis PT (10.0-12.5) sec INR (<1.2) APTT (22.0-30.0) sec Sodium (137-145) mmol/L Potassium (3.5-5.1) mmol/L Chloride (98-107) mmol/L Carbon Dioxide (22-30) mmol/L Anion Gap mmol/L BUN (7-17) mg/dL Creatinine (0.52-1.04) mg/dL Est GFR (CKD-EPI)AfAm (>60 ml/min/1.73 sqM) Est GFR (CKD-EPI)NonAf (>60 ml/min/1.73 sqM) Glucose (74-99) mg/dL Calcium (8.4-10.2) mg/dL Magnesium (1.6-2.3) mg/dL Total Bilirubin (0.2-1.3) mg/dL AST (14-36) U/L ALT (4-34) U/L Alkaline Phosphatase (38-126) U/L Troponin I <0.012 (0.000-0.034) ng/mL NT-Pro-B Natriuret Pep pg/mL Total Protein (6.3-8.2) g/dL Albumin (3.5-5.0) g/dL Disposition <Tevin Urbina - Last Filed: 05/26/23 19:35> <Noah Byrne - Last Filed: 05/27/23 02:03> Referrals: Mark Estrada MD [Primary Care Provider] - 1-2 days
[2023-05-26 20:37] LABS: HCT 34.8 % (34.0-46.0); HGB 11.8 gm/dL (11.4-16.0); MCH 36.8 pg (25.0-35.0); MCV 108.3 fL (80.0-100.0); Macrocytosis Marked; Mean Platelet Volume 9.7; Poikilocytosis Slight; RBC 3.21 m/uL (3.80-5.40); RDW 15.2 % (11.5-15.5); WBC 3.2 k/uL (3.8-10.6)
--- NOTE | 2023-05-26 20:38 | XR ---
EXAMINATION TYPE: XR chest 2V DATE OF EXAM: 05/26/2023 COMPARISON: 02/14/2023 HISTORY: 57-year-old female rule out CHF, shortness of breath TECHNIQUE: PA and lateral views FINDINGS: Heart upper limits of normal in size. Bilateral hilar prominence suggesting large pulmonary arteries. There is diffuse interstitial density and hyperinflation. No mikayla consolidation or pleural effusion . IMPRESSION: Advanced COPD. Large central pulmonary arteries suggesting pulmonary arterial hypertension. Interstit ial changes which appear chronic. No definite acute process. Consider pulmonary medicine referral.
[2023-05-26 20:46] LABS: ALT 19 U/L (4-34); AST 38 U/L (14-36); African American GFR (CKD) >90 (>60 ml/min/1.73 sqM); Albumin 2.8 g/dL (3.5-5.0); Alkaline Phosphatase 69 U/L (38-126); Anion Gap 6 mmol/L; Blood Urea Nitrogen 16 mg/dL (7-17); Calcium 8.1 mg/dL (8.4-10.2); Carbon Dioxide 22 mmol/L (22-30); Chloride 104 mmol/L (98-107); Glucose 119 mg/dL (74-99); Magnesium 2.1 mg/dL (1.6-2.3); Non-African American GFR(CKD) >90 (>60 ml/min/1.73 sqM); Sodium 132 mmol/L (137-145); Total Bilirubin 4.2 mg/dL (0.2-1.3); Total Protein 6.4 g/dL (6.3-8.2)
[2023-05-26 20:49] LABS: INR 1.3 (<1.2); Partial Thromboplastin Time 29.8 sec (22.0-30.0); Prothrombin Time 13.5 sec (10.0-12.5)
[2023-05-26 20:54] LABS: NT-Pro-B-Type Natriuretic Pept 356 pg/mL
[2023-05-26 21:24] LABS: Eosinophils # (M) 0.13 k/uL (0-0.7); Lymphocytes # (M) 0.93 k/uL (1.0-4.8); Monocytes # (M) 0.51 k/uL (0-1.0); Neutrophils # (M) 1.63 k/uL (1.3-7.7); Neutrophils % (M) 51 %; Nucleated Red Blood Cells 0 /100 WBC (0-0); Total Cells Counted 100
[2023-05-26 21:25] LABS: Platelet Count 61 k/uL (150-450)
[2023-05-27] MEDS ORDERED: NALOXONE 0.4 MG/ML 1 ML VIAL IV PRN (02:00)
[2023-05-27] MEDS ORDERED: ONDANSETRON 4 MG/2 ML VIAL IVP PRN (02:00)
[2023-05-27] MEDS: HYDROmorphone 1 MG/ML 1 ML SYRINGE IVP PRN (08:43)
--- NOTE | 2023-05-27 10:05 | US ---
EXAMINATION TYPE: US abdomen limited DATE OF EXAM: 05/27/2023 COMPARISON: CT 05/18/2023 CLINICAL INDICATION: Female, 57 years old with history of ASCITES; Ascites check. TECHNIQUE AND FINDINGS: Hand Laster notes: Scanned all four quadrants of the abdomen. Ascites was seen within all four quadrants. IMPRESSION: Moderate to large ascites.
--- NOTE | 2023-05-27 12:34 | US ---
Ultrasound-guided paracentesis. DATE OF EXAM: 05/27/2023 CLINICAL HISTORY: Ascites The procedure was discussed with the patient. The risks, complications, benefits, and alternatives we re discussed and any questions were answered. Informed consent was obtained. The patient was placed s upine on the ultrasound table and prepped and draped in the usual sterile fashion. All elements of maximal barrier technique were utilized. Under ultrasound guidance, access into the right lower quadrant was obtained, via the paracentesis catheter system and direct ultrasound guidanc e. Approximately 6.9 liters of straw-colored fluid was removed. The patient was stable throughout the pr ocedure and remained stable upon discharge from Department of Radiology. Sample sent to pathology for analysis. IMPRESSION: Successful paracentesis under ultrasound guidance.
[2023-05-27] MEDS: HYDROcodone/APAP 10-325MG 1 EACH TAB PO PRN (16:05)
[2023-05-27] MEDS: ALBUMIN HUMAN 25% 50 ML in EMPTY BAG 1 BAG IVPB SCH (16:11)
[2023-05-27] MEDS ORDERED: HYDROcodone/APAP 10-325MG 1 EACH TAB PO SCH (18:00)
[2023-05-27] MEDS ORDERED: HYDROmorphone 2 MG TAB PO PRN (18:00)
[2023-05-27 19:01] VITALS: RESP 16
--- NOTE | 2023-05-27 21:37 | HP ---
HISTORY AND PHYSICAL CHIEF COMPLAINT: Abdominal pain with intractable ascites. HISTORY OF PRESENT ILLNESS: This is another admission for this 57-year-old female who has a long-standing history of cirrhosis with ascites relating to hepatitis C and alcohol abuse. She also has had a history of breast cancer. Every now and then, she has to come in the emergency room for paracentesis, which was the case this time. REVIEW OF SYSTEMS: She has had no fever, no chills. No nausea, vomiting, diarrhea, melena, hematochezia, or urinary issues, etc. Past medical history, family history, and personal and social histories are unchanged. MEDICATIONS: She takes heavy doses of Vicodin and Dilaudid at home for her chronic abdominal pain. She does smoke and she has COPD. LABORATORY DATA: In the emergency room, laboratory studies demonstrated normal coagulation function. She has pancytopenia with a white count of 3200, hemoglobin 11.8, and platelets 61,000. PHYSICAL EXAMINATION: VITAL SIGNS: Normal. HEENT: Head, ears, eyes, nose, mouth and throat were normal except for her chronically ill appearance. CHEST: Demonstrated increased AP diameter with no rales or rhonchi. CARDIAC: Demonstrates tachycardia in the abdomen, grossly distended with ascites and bowel sounds are heard. EXTREMITIES: Normal. NEUROLOGICAL: She is intact. DIAGNOSES: She is admitted to the hospital with diagnoses, 1. Cirrhosis. 2. Intractable ascites. 3. History of hepatitis C. 4. COPD. 5. History of CA of the breast. 6. Pancytopenia. PLAN: 1. Bedrest. 2. IV fluids. 3. Paracentesis. MMODL / IJN: [id number] /
[2023-05-28 04:31] LABS: LDH, Body Fluid Source Pleural fluid; T. Protein, Body Fluid Source Pleural fluid; Total Protein, Body Fluid 2220 mg/dL
[2023-05-28 05:48] LABS: Appearance,BF Clear (Clear)
[2023-05-28 08:46] LABS: ALT 11 U/L (8-44); AST 22 U/L (13-35); Albumin 2.5 g/dL (3.8-4.9); Albumin/Globulin Ratio 1.19 Ratio (1.60-3.17); Alkaline Phosphatase 46 U/L (41-126); BUN/Creat Ratio 15.71 Ratio (12.00-20.00); Calcium 7.6 mg/dL (8.7-10.3); Chloride 105 mmol/L (96-109); Globulin 2.1 g/dL (1.6-3.3); Glucose 115 mg/dL (70-110); Lipase 22 U/L (14-63); Magnesium 2.1 mg/dL (1.5-2.4); Phosphorus 2.5 mg/dL (2.4-5.1); Potassium 3.5 mmol/L (3.5-5.5); Sodium 136 mmol/L (135-145); Total Bilirubin 1.2 mg/dL (0.3-1.2); Total Protein 4.6 g/dL (6.2-8.2)
[2023-05-28 10:49] LABS: Basophils # (A) 0.01 X 10*3/uL (0.00-0.10); Basophils % (A) 0.6 %; Crenated RBC 2+; Eosinophils # (A) 0.08 X 10*3/uL (0.04-0.35); Eosinophils % (A) 4.5 %; HCT 25.5 % (37.2-46.3); HGB 8.7 g/dL (12.0-15.0); Immature Grans, Automated 0 %; Immature Platelet Fraction 6.9 % (1.1-6.1); Lymphocytes % (A) 45.5 %; MCH 36.7 pg (27.0-32.0); MCHC 34.1 g/dL (32.0-37.0); MCV 107.6 FL (80.0-97.0); Macrocytosis (M) 2+; Mean Platelet Volume 10.5 FL (9.5-12.2); NRBC Per 100 WBC 0 X 10*3/uL (0.00-0.01); Neutrophils # (A) 0.57 X 10*3/uL (1.80-7.70); Neutrophils % (A) 32.4 %; Platelet Count 42 X 10*3/uL (140-440); RBC 2.37 X 10*6/uL (4.10-5.20); WBC 1.76 X 10*3/uL (4.50-10.00)
[2023-05-28 14:53] VITALS: BP 94/59; PULSE 78; TEMP 98
[2023-05-28] MEDS: AMOXICILLIN 250 MG CAP PO SCH (15:27)
[2023-05-28] MEDS: LANOLIN CREAM 1 GM TUBE TOPICAL SCH (16:37)
--- NOTE | 2023-05-29 20:46 | DS ---
DISCHARGE SUMMARY CHIEF COMPLAINT: Intractable abdominal pain and ascites. HISTORY OF PRESENT ILLNESS AND PHYSICAL EXAMINATION: Details of this lady's history and physical can be found in the initial workup. LABORATORY STUDIES: While she was in the hospital, she had laboratory studies, details of which can be found in the laboratory section of her chart. COURSE IN THE HOSPITAL: After admission, she was placed on bedrest, started on intravenous fluids and underwent paracentesis. She received albumin transfusion post paracentesis. She is doing well. It was felt that she could go home on the and she will go home on her usual activity, diet, medication along with amoxicillin and lanolin for her lower legs. FINAL DIAGNOSES: 1. Intractable abdominal pain. 2. Ascites. 3. Cirrhosis. 4. Hepatitis C. 5. History of carcinoma of the breast. 6. Chronic obstructive pulmonary disease. 7. Stasis dermatitis and cellulitis of the lower legs. OPERATIONS: Paracentesis. CONSULTATIONS: Interventional Radiology. MMODL / IJN: [id number] /
--- NOTE | 2023-05-30 03:07 | PN ---
PROGRESS NOTE DATE OF SERVICE: 05/28/2023 CHIEF COMPLAINT: Intractable ascites secondary to cirrhosis. HISTORY OF PRESENT ILLNESS: This lady is doing fairly well, but her lower legs are quite inflamed and infected. She has venous stasis issues with dry skin. PHYSICAL EXAMINATION: ABDOMEN: Less distended. VITAL SIGNS: Normal. EXTREMITIES: She has cellulitis of both legs below the knees and there is dry skin. IMPRESSION: 1. Cirrhosis. 2. Ascites. 3. History of hepatitis C. 4. History of breast carcinoma. 5. Cellulitis to both lower extremities with xero dermatitis. PLAN: Initiate amoxicillin and lanolin for the lower extremities. MMODL / IJN: [id number] /
== END 2023-05-28 18:47 | disposition home or self-care (01) ==
LOC: EC 19:17 → 6NMEDSUR 05-27 02:02
PROVIDERS: ADMIT Family Medicine; ATTEND Family Medicine
DX: K74.60 Unspecified cirrhosis of liver (principal); R18.8 Other ascites; B19.20 Unspecified viral hepatitis C without hepatic coma; R41.82 Altered mental status, unspecified; F10.10 Alcohol abuse, uncomplicated; D61.818 Other pancytopenia; J44.9 Chronic obstructive pulmonary disease, unspecified; I87.2 Venous insufficiency (chronic) (peripheral); L03.116 Cellulitis of left lower limb; L03.115 Cellulitis of right lower limb; Z79.899 Other long term (current) drug therapy; Z79.891 Long term (current) use of opiate analgesic; Z85.3 Personal history of malignant neoplasm of breast; F17.210 Nicotine dependence, cigarettes, uncomplicated; H91.90 Unspecified hearing loss, unspecified ear
CPT/HCPCS: 96365; 96366 ×2; 99285; 36415; 93005; 83880; 80053 ×2; 89050; 83690; 83735 ×2; 84100; 84484; 85025 ×2; 85610; 85730; 83615; 84157; 71046; 76705; 49083; G0378 ×2; P9047; J1170 ×2; 88108; 88305; 88341; 88342

== ENCOUNTER 2023-06-18 21:02 | Emergency (ER) | payer MEDICARE, OTHER ==
--- NOTE | 2023-06-18 21:20 | ED ---
Abdominal Pain HPI - General Source: patient, RN notes reviewed, old records reviewed Mode of arrival: ambulatory Limitations: no limitations <Hayley Ramsey - Last Filed: 06/18/23 21:19> - General Source: RN notes reviewed, old records reviewed Mode of arrival: ambulatory Limitations: no limitations - History of Present Illness MD Complaint: abdominal pain -: days(s) Location: epigastric, suprapubic Radiation: epigastric, suprapubic Migration to: epigastric, suprapubic Severity: moderate, severe Severity scale (1-10): 6 Quality: sharp, burning Consistency: constant Improves With: nothing Worsens With: vomiting Associated Symptoms: nausea, diarrhea Treatments Prior to Arrival: other (0) <Noah Byrne - Last Filed: 06/25/23 23:13> - General Stated Complaint: abd pain Time Seen by Provider: 06/18/23 21:19 - History of Present Illness Initial Comments: Quick note: Patient is a 57-year-old female presented to ER with chief complaint of abdominal pain and distention. She states this been going on for the past 3 days. Patient has a history of paracentesis. (Hayley Ramsey) This is a 57-year-old female to the ER for evaluation patient [facility] for evaluation abdominal pain known history of abdominal disease renal disease. Parotitis with paracentesis. Patient has severe nausea vomiting and abdominal pain here in the ER which she states is different than her normal abdominal pain (Noah Byrne) - Related Data Home Medications Medication Instructions Recorded Confirmed HYDROmorphone [Dilaudid] 2 mg PO QID 09/06/19 05/27/23 Hydrocodone/Acetaminophen [[place] 1 tab PO QID 09/06/19 05/27/23 10-325] Previous Rx's Medication Instructions Recorded Amoxicillin 250 mg PO Q8HR #30 cap 05/28/23 Allergies Allergy/AdvReac Type Severity Reaction Status Date / Time No Known Allergies Allergy Verified 06/18/23 21:36 Review of Systems ROS Other: All systems not noted in ROS Statement are negative. <Hayley Ramsey - Last Filed: 06/18/23 21:19> ROS Other: All systems not noted in ROS Statement are negative. <Noah Byrne - Last Filed: 06/25/23 23:13> ROS Statement: Those systems with pertinent positive or pertinent negative responses have been documented in the HPI. Past Medical History Past Medical History: Cancer, COPD, GERD/Reflux, GI Bleed, Hearing Disorder / Deafness, Liver Disease Additional Past Medical History / Comment(s): Hepatitis C, intractable ascities with multiple paracentesis, cirrhosis, peritonitis, pancytopenia, vertigo once; multiple upper GI bleeds, esophageal varicies/esophageal banding, left breast cancer had chemo last on 09-12-16-did not tolerate-completed only 3 cycles-then it was stopped/received radiation treatments/pt states she did not follow up and so did not have surgery lt ear deafness, R ear [place], occasional R leg edema. History of Any Multi-Drug Resistant Organisms: None Reported Past Surgical History: Adenoidectomy, Breast Surgery, Tonsillectomy Additional Past Surgical History / Comment(s): Multiple paracentesises, EGDs, esophageal banding, right chest mediport since removed, l breast bx., Past Anesthesia/Blood Transfusion Reactions: No Reported Reaction Additional Past Anesthesia/Blood Transfusion Reaction / Comment(s): blood transfusions- no reaction Past Psychological History: Anxiety Additional Psychological History / Comment(s): Patient lives with her son. She is currently on disability. She uses a wheelchair that she states her daughter just bought her. She gets to [employer] by cab or her jazmin. Smoking Status: Current some day smoker, Light tobacco smoker Past Alcohol Use History: None Reported Additional Past Alcohol Use History / Comment(s): Patient started smoking at age 14. She was a ppd smoker but cut back to one to 1-3 cigarettes per day in 2017. No history of alcohol abuse. Past Drug Use History: None Reported - Past Family History Mother Family Medical History: Cancer Additional Family Medical History / Comment(s): of lung ca at the age of 59yrs. She was a smoker. Father Family Medical History: Myocardial Infarction ([place]) Additional Family Medical History / Comment(s): from 2nd heart attack at t he age of 59yrs. <Hayley Ramsey - Last Filed: 06/18/23 21:19> General Exam <Hayley Ramsey - Last Filed: 06/18/23 21:19> General appearance: alert, in no apparent distress Head exam: Present: atraumatic, normocephalic, normal inspection Eye exam: Present: normal appearance, PERRL, EOMI. Absent: scleral icterus, conjunctival injection, periorbital swelling ENT exam: Present: normal exam, mucous membranes moist Neck exam: Present: normal inspection. Absent: tenderness, meningismus, lymphadenopathy Respiratory exam: Present: normal lung sounds bilaterally. Absent: respiratory distress, wheezes, rales, rhonchi, stridor Cardiovascular Exam: Present: regular rate, normal rhythm, normal heart sounds. Absent: systolic murmur, diastolic murmur, rubs, gallop, clicks GI/Abdominal exam: Present: soft, normal bowel sounds. Absent: distended, tenderness, guarding, rebound, rigid Extremities exam: Present: normal inspection, full ROM, normal capillary refill. Absent: tenderness, pedal edema, joint swelling, calf tenderness Back exam: Present: normal inspection Neurological exam: Present: alert, oriented X3, CN II-XII intact Psychiatric exam: Present: normal affect, normal mood Skin exam: Present: warm, dry, intact, normal color. Absent: rash <Noah Byrne - Last Filed: 06/25/23 23:13> - General Exam Comments Initial Comments: Visual Physical Exam Vital signs reviewed General: Unwell appearing, distended abdomen Head: Normocephalic, atraumatic Eyes: PERRLA, EOMI ENT: Airway patent Chest: Nonlabored breathing Skin: No visual rash, normal skin tone Neuro: Alert and oriented 3 Musculoskeletal: No gross abnormalities (Hayley Ramsey) Course <Noah Byrne - Last Filed: 06/25/23 23:13> Vital Signs 06/18/23 06/19/23 21:29 01:03 Temperature 97.9 F Pulse Rate 99 80 Respiratory 20 20 Rate Blood Pressure 153/76 157/102 O2 Sat by Pulse 95 97 Oximetry - Reevaluation(s) Reevaluation #1: 06/18/23 23:54 Medical records reviewed (Noah Byrne) Reevaluation #2: 06/18/23 23:54 Patient symptoms are improved (Noah Byrne) Reevaluation #3: 06/18/23 23:54 Patient informed of results and questions answered (Noah Byrne) Reevaluation #4: Was pt. sent in by a medical professional or institution (, PA, LEAD CASHIER, urgent care, hospital, or intermediate...) When possible be specific @ -no Did you speak to anyone other than the patient for history (EMS, parent, family, police, friend...)? What history was obtained from this source @ -no Did you review nursing and triage notes (agree or disagree)? Why? @ -agree Are old charts reviewed (outside hosp., previous admission, EMS record, old EKG, old radiological studies, urgent care reports/EKG's, intermediate records)? Report findings @ -yes Differential Diagnosis (chest pain, altered mental status, abdominal pain women, abdominal pain men, vaginal bleeding, weakness, fever, dyspnea, syncope, headache, dizziness, GI bleed, back pain, seizure, CVA, palpatations, mental health, musculoskeletal)? @ -prior EKG interpreted by me (3pts min.). @ -no X-rays interpreted by me (1pt min.). @ -no CT interpreted by me (1pt min.). @ -yes negative for acute disease U/S interpreted by me (1pt. min.). @ -no What testing was considered but not performed or refused? (CT, X-rays, U/S, lab s)? Why? @ -none What meds were considered but not given or refused? Why? @ -none Did you discuss the management of the patient with other professionals (professionals i.e. , PA, LEAD CASHIER, lab, RT, psych nurse, professor of social work, quality assurance auditor, teacher, conservation enforcement officer, telephonic nurse case manager)? Give summary @ -no Was smoking cessation discussed for >3mins.? @ -no Was critical care preformed (if so, how long)? @ -no Were there social determinants of health that impacted care today? How? (Homelessness, low income, unemployed, alcoholism, drug addiction, transportation, low edu. Level, literacy, decrease access to med. care, residential, rehab)? @ -none Was there de-escalation of care discussed even if they declined (Discuss DNR or withdrawal of care, Hospice)? DNR status @ -no What co-morbidities impacted this encounter? (DM, HTN, Smoking, COPD, CAD, Cancer, CVA, ARF, Chemo, Hep., AIDS, mental health diagnosis, sleep apnea, morbid obesity)? @ -none Was patient admitted / discharged? Hospital course, mention meds given and route, prescriptions, significant lab abnormalities, going to OR and other pertinent info. @ - 57 female well-known to this ER for evaluation abdominal pain. Today. Patient presents with abdominal pain which is well-controlled here in the ER with pain control, patient has normal CT scan and normal lab testing can be discharged home Discharge Undiagnosed new problem with uncertain prognosis? @ -no Drug Therapy requiring intensive monitoring for toxicity (Heparin, Nitro, Insulin, Cardizem)? @ -no Were any procedures done? @ -no Diagnosis/symptom? @ -Abdominal pain Acute, or Chronic, or Acute on Chronic? @ -Acute Uncomplicated (without systemic symptoms) or Complicated (systemic symptoms)? @ -Complicated Side effects of treatment? @ -no Exacerbation, Progression, or Severe Exacerbation? @ -exacerbation Poses a threat to life or bodily function? How? (Chest pain, [place], [place], pneumonia, PE, COPD, DKA, ARF, appy, cholecystitis, CVA, Diverticulitis, Homicidal, Suicidal, threat to staff... and all critical care pts) @ -yes with significant comorbid conditions (Noah Byrne) Reevaluation #5: Differential Abdominal Pain Women: Appendicitis, Cholecystitis, diverticulosis, ischemic bowel, pancreatitis, hepatitis, UTI, gastroenteritis, AAA, incarcerated hernia, bowel obstruction, constipation, inflammatory bowel, hepatitis, peptic ulcer disease, splenic infarction, perforated viscus, vulvitis, ovarian torsion, PID, kidney stone, placenta abruption, this is not meant to be an all-inclusive list (Noah Byrne) Medical Decision Making <Hayley Ramsey - Last Filed: 06/18/23 21:19> - Lab Data Result diagrams: 06/18/23 22:23 06/18/23 22:23 - Radiology Data Radiology results: report reviewed (CT abdomen pelvis is negative for acute disease), image reviewed <Noah Byrne - Last Filed: 06/25/23 23:13> - Medical Decision Making I performed the quick note portion of this chart. Electronically signed by Hayley Ramsey PA-C (Hayley Ramsey) 57 female well-known to this ER for evaluation abdominal pain. Today. Patient presents with abdominal pain which is well-controlled here in the ER with pain control, patient has normal CT scan and normal lab testing can be discharged home (Noah Byrne) - Lab Data Lab Results 06/18/23 06/18/23 06/18/23 Range/Units 22:23 22:23 22:23 WBC 1.6 L (3.8-10.6) k/uL RBC 3.53 L (3.80-5.40) m/uL Hgb 13.0 (11.4-16.0) gm/dL Hct 39.5 (34.0-46.0) % MCV 111.9 H (80.0-100.0) fL MCH 36.7 H (25.0-35.0) pg MCHC 32.8 (31.0-37.0) g/dL RDW 15.0 (11.5-15.5) % Plt Count 44 L (150-450) k/uL MPV 10.1 Neutrophils % 56 % Lymphocytes % 26 % Monocytes % 12 % Eosinophils % 4 % Basophils % 1 % Neutrophils # 0.9 L (1.3-7.7) k/uL Lymphocytes # 0.4 L (1.0-4.8) k/uL Monocytes # 0.2 (0-1.0) k/uL Eosinophils # 0.1 (0-0.7) k/uL Basophils # 0.0 (0-0.2) k/uL Manual Slide Review Performed Large Platelets Present Polychromasia Present Macrocytosis Marked A Sodium 138 (137-145) mmol/L Potassium 3.5 (3.5-5.1) mmol/L Chloride 106 (98-107) mmol/L Carbon Dioxide 28 (22-30) mmol/L Anion Gap 4 mmol/L BUN 14 (7-17) mg/dL Creatinine 0.57 (0.52-1.04) mg/dL Est GFR (CKD-EPI)AfAm >90 (>60 ml/min/1.73 sqM) Est GFR (CKD-EPI)NonAf >90 (>60 ml/min/1.73 sqM) Glucose 124 H (74-99) mg/dL Plasma Lactic Acid [place] 1.5 (0.7-2.0) mmol/L Calcium 8.4 (8.4-10.2) mg/dL Total Bilirubin 2.3 H (0.2-1.3) mg/dL AST 37 H (14-36) U/L ALT 18 (4-34) U/L Alkaline Phosphatase 155 H (38-126) U/L Total Protein 7.2 (6.3-8.2) g/dL Albumin 3.2 L (3.5-5.0) g/dL Amylase 43 (30-110) U/L Lipase 83 (23-300) U/L Disposition <Hayley Ramsey - Last Filed: 06/18/23 21:19> Is patient prescribed a controlled substance at d/c from ED?: No Time of Disposition: 01:00 <Noah Byrne - Last Filed: 06/25/23 23:13> Clinical Impression: Pancreatitis, Abdominal colic Disposition: HOME SELF-CARE Condition: Good Instructions (If sedation given, give patient instructions): Abdominal Pain (ED) Referrals: Mark Estrada MD [Primary Care Provider] - 1-2 days
[2023-06-18 21:38] VITALS: RESP 20; TEMP 97.9
[2023-06-18 22:34] LABS: Basophils % (A) 1 %; Eosinophils # (A) 0.1 k/uL (0-0.7); Eosinophils % (A) 4 %; HCT 39.5 % (34.0-46.0); Lymphocytes # (A) 0.4 k/uL (1.0-4.8); Lymphocytes % (A) 26 %; MCH 36.7 pg (25.0-35.0); MCHC 32.8 g/dL (31.0-37.0); MCV 111.9 fL (80.0-100.0); Macrocytosis Marked; Mean Platelet Volume 10.1; Monocytes # (A) 0.2 k/uL (0-1.0); Monocytes % (A) 12 %; Neutrophils # (A) 0.9 k/uL (1.3-7.7); Neutrophils % (A) 56 %; RBC 3.53 m/uL (3.80-5.40); WBC 1.6 k/uL (3.8-10.6)
[2023-06-18 22:40] LABS: Platelet Count 44 k/uL (150-450)
[2023-06-18 22:51] LABS: ALT 18 U/L (4-34); AST 37 U/L (14-36); African American GFR (CKD) >90 (>60 ml/min/1.73 sqM); Albumin 3.2 g/dL (3.5-5.0); Alkaline Phosphatase 155 U/L (38-126); Amylase 43 U/L (30-110); Anion Gap 4 mmol/L; Blood Urea Nitrogen 14 mg/dL (7-17); Calcium 8.4 mg/dL (8.4-10.2); Carbon Dioxide 28 mmol/L (22-30); Chloride 106 mmol/L (98-107); Glucose 124 mg/dL (74-99); Lipase 83 U/L (23-300); Non-African American GFR(CKD) >90 (>60 ml/min/1.73 sqM); Potassium 3.5 mmol/L (3.5-5.1); Sodium 138 mmol/L (137-145); Total Bilirubin 2.3 mg/dL (0.2-1.3); Total Protein 7.2 g/dL (6.3-8.2)
[2023-06-18 22:54] LABS: Large Platelets Present; Polychromasia Present
[2023-06-18] MEDS: HYDROmorphone 1 MG/ML 1 ML SYRINGE IVP STA (23:03)
[2023-06-18] MEDS: PROCHLORPERAZINE INJ 10 MG/2 ML VIAL IVP STA (23:03)
[2023-06-18] MEDS: SODIUM CHLORIDE 0.9% 1,000 ML IV STA (23:04)
--- NOTE | 2023-06-18 23:26 | CT ---
EXAMINATION TYPE: CT abdomen pelvis wo con DATE OF EXAM: 06/18/2023 HISTORY: Upper abdominal pain without vomiting. Liver disease and breast cancer CT DLP: 658 mGycm. Automated Exposure Control for Dose Reduction was Utilized. TECHNIQUE: CT scan of the abdomen and pelvis is performed without oral or IV contrast. COMPARISON: CT abdomen and pelvis May 18, 2023 FINDINGS: Within the limitations of a non-contrast study, the following observations are made. LUNG BASES: No significant abnormality is appreciated. LIVER/GB: Somewhat small size liver with surrounding ascites is redemonstrated. PANCREAS: No significant abnormality is seen. SPLEEN: Spinal megaly of 14.8 cm long axis axial image 18 redemonstrated. ADRENALS: No significant abnormality is seen. KIDNEYS: No renal stones or hydronephrosis is seen bilaterally. BOWEL: Suboptimal evaluation without enteric contrast. No abnormal small or large bowel dilatation. T here are areas of abnormal wall thickening are likely present likely product of underlying hepatocell ular disease. GENITAL ORGANS: No gross abnormality seen. LYMPH NODES: No greater than 1cm abdominal or pelvic lymph nodes are appreciated. OSSEOUS STRUCTURES: No significant abnormality is seen. OTHER: Moderate to severe intraperitoneal abdominal and pelvic ascites redemonstrated. IMPRESSION: Persistent cirrhosis with portal hypertension as there is splenomegaly and moderate to se verna intraperitoneal ascites redemonstrated. No bowel obstruction. No significant change from most re cent prior CT
[2023-06-19 01:14] VITALS: BP 157/102; PULSE 80
[2023-06-19] MEDS: HYDROmorphone 1 MG/ML 1 ML SYRINGE IVP STA (01:36)
== END 2023-06-19 02:02 | disposition home or self-care (01) ==
LOC: EC 21:02
DX: K85.90 Acute pancreatitis without necrosis or infection, unspecified (principal); F17.200 Nicotine dependence, unspecified, uncomplicated
CPT/HCPCS: 36415; 80053; 82150; 83605; 83690; 85025; 74176; 99285; 96374; 96375; 96376; 96361; J0780; J1170 ×2

== ENCOUNTER 2023-06-27 16:57 | Emergency (ER) | payer MEDICARE, OTHER ==
[2023-06-27 17:17] VITALS: TEMP 97.7
[2023-06-27] MEDS: SODIUM CHLORIDE 0.9% 1,000 ML IV ONE (18:39)
[2023-06-27] MEDS: ONDANSETRON 4 MG/2 ML VIAL IVP STA (18:39)
[2023-06-27] MEDS: PANTOPRAZOLE 40 MG/10 ML VIAL IVP STA (18:42)
[2023-06-27 18:48] LABS: HCT 36.6 % (34.0-46.0); HGB 12.2 gm/dL (11.4-16.0); MCHC 33.4 g/dL (31.0-37.0); MCV 110.7 fL (80.0-100.0); Macrocytosis Marked; Mean Platelet Volume 9.4; RBC 3.31 m/uL (3.80-5.40); RDW 13.8 % (11.5-15.5); WBC 3.4 k/uL (3.8-10.6)
--- NOTE | 2023-06-27 18:58 | ED ---
General Adult HPI - General Chief complaint: Nausea/Vomiting/Diarrhea Stated complaint: pain Time Seen by Provider: 06/27/23 17:10 Source: patient, RN notes reviewed Mode of arrival: wheelchair Limitations: no limitations - History of Present Illness Initial comments: 57-year-old female presents to the emergency department for evaluation of nausea, vomiting, diarrhea. Symptoms started today. She states that she has not been able to keep down her medications. She admits to cramping abdominal pain which is mostly in her lower abdomen. She does have a history of hepatitis with ascites. She has had multiple paracentesis. She states that she does not feel like her ascites is any worse than usual. She denies recent fever, chills. - Related Data Home Medications Medication Instructions Recorded Confirmed HYDROmorphone [Dilaudid] 2 mg PO QID 09/06/19 05/27/23 Hydrocodone/Acetaminophen [[place] 1 tab PO QID 09/06/19 05/27/23 10-325] Previous Rx's Medication Instructions Recorded Amoxicillin 250 mg PO Q8HR #30 cap 05/28/23 Allergies Allergy/AdvReac Type Severity Reaction Status Date / Time No Known Allergies Allergy Verified 06/18/23 21:36 Review of Systems ROS Statement: Those systems with pertinent positive or pertinent negative responses have been documented in the HPI. ROS Other: All systems not noted in ROS Statement are negative. Past Medical History Past Medical History: Cancer, COPD, GERD/Reflux, GI Bleed, Hearing Disorder / Deafness, Liver Disease Additional Past Medical History / Comment(s): Hepatitis C, intractable ascities with multiple paracentesis, cirrhosis, peritonitis, pancytopenia, vertigo once; multiple upper GI bleeds, esophageal varicies/esophageal banding, left breast cancer had chemo last on 09-12-16-did not tolerate-completed only 3 cycles-then it was stopped/received radiation treatments/pt states she did not follow up and so did not have surgery lt ear deafness, R ear [id number], occasional R leg edema. History of Any Multi-Drug Resistant Organisms: None Reported Past Surgical History: Adenoidectomy, Breast Surgery, Tonsillectomy Additional Past Surgical History / Comment(s): Multiple paracentesises, EGDs, esophageal banding, right chest mediport since removed, l breast bx., Past Anesthesia/Blood Transfusion Reactions: No Reported Reaction Additional Past Anesthesia/Blood Transfusion Reaction / Comment(s): blood transfusions- no reaction Past Psychological History: Anxiety Smoking Status: Current some day smoker, Light tobacco smoker Past Alcohol Use History: None Reported Past Drug Use History: None Reported - Past Family History Mother Family Medical History: Cancer Additional Family Medical History / Comment(s): of lung ca at the age of 59yrs. She was a smoker. Father Family Medical History: Myocardial Infarction ([place]) Additional Family Medical History / Comment(s): from 2nd heart attack at the age of 59yrs. General Exam Limitations: no limitations General appearance: alert, in no apparent distress Head exam: Present: atraumatic, normocephalic, normal inspection Eye exam: Present: normal appearance, PERRL, EOMI. Absent: scleral icterus, conjunctival injection, periorbital swelling ENT exam: Present: normal exam, mucous membranes moist Neck exam: Present: normal inspection. Absent: tenderness, meningismus, lymphadenopathy Respiratory exam: Present: normal lung sounds bilaterally. Absent: respiratory distress, wheezes, rales, rhonchi, stridor Cardiovascular Exam: Present: regular rate, normal rhythm, normal heart sounds. Absent: systolic murmur, diastolic murmur, rubs, gallop, clicks GI/Abdominal exam: Present: soft, normal bowel sounds, other (ascites). Absent: distended, tenderness, guarding, rebound, rigid Extremities exam: Present: normal inspection, full ROM, normal capillary refill. Absent: tenderness, pedal edema, joint swelling, calf tenderness Back exam: Present: normal inspection Neurological exam: Present: alert, oriented X3 Psychiatric exam: Present: normal affect, normal mood Course Vital Signs 06/27/23 06/27/23 06/27/23 17:04 19:29 21:34 Temperature 97.7 F 97.7 F Pulse Rate 87 86 80 Respiratory 16 18 18 Rate Blood Pressure 116/70 128/81 136/66 O2 Sat by Pulse 98 100 99 Oximetry Medical Decision Making - Medical Decision Making Was pt. sent in by a medical professional or institution (, PA, DEPILATORY PAINTER, urgent care, hospital, or retirement...) When possible be specific @ -No Did you speak to anyone other than the patient for history (EMS, parent, family, police, friend...)? What history was obtained from this source @ -No Did you review nursing and triage notes (agree or disagree)? Why? @ -I reviewed and agree with nursing and triage notes Were old charts reviewed (outside hosp., previous admission, EMS record, old EKG, old radiological studies, urgent care reports/EKG's, retirement records)? Report findings @ -No old charts were reviewed Differential Diagnosis (chest pain, altered mental status, abdominal pain women, abdominal pain men, vaginal bleeding, weakness, fever, dyspnea, syncope, headache, dizziness, GI bleed, back pain, seizure, CVA, palpatations, mental health, musculoskeletal)? @ -Differential Abdominal Pain Women: Appendicitis, Cholecystitis, diverticulosis, ischemic bowel, pancreatitis, hepatitis, UTI, gastroenteritis, AAA, incarcerated hernia, bowel obstruction, constipation, inflammatory bowel, hepatitis, peptic ulcer disease, splenic infarction, perforated viscus, vulvitis, ovarian torsion, PID, kidney stone, placenta abruption, this is not meant to be an all-inclusive list EKG interpreted by me (3pts min.). @ -None X-rays interpreted by me (1pt min.). @ -None done CT interpreted by me (1pt min.). @ -None done U/S interpreted by me (1pt. min.). @ -None done What testing was considered but not performed or refused? (CT, X-rays, U/S, labs)? Why? @ -CT scan was considered, discussed with patient, she has had multiple scans over the past few months. Patient declining imaging at this time What meds were considered but not given or refused? Why? @ -None Did you discuss the management of the patient with other professionals (professionals i.e. , PA, DEPILATORY PAINTER, lab, RT, psych nurse, social human services assistants, rod mill tender, teacher, credit review officer, assistant case manager)? Give summary @ -No Was smoking cessation discussed for >3mins.? @ -No Was critical care preformed (if so, how long)? @ -No Were there social determinants of health that impacted care today? How? (Homelessness, low income, unemployed, alcoholism, drug addiction, transportation, low edu. Level, literacy, decrease access to med. care, intermediate, rehab)? @ -No Was there de-escalation of care discussed even if they declined (Discuss DNR or withdrawal of care, Hospice)? DNR status @ -No What co-morbidities impacted this encounter? (DM, HTN, Smoking, COPD, CAD, Cancer, CVA, ARF, Chemo, Hep., AIDS, mental health diagnosis, sleep apnea, morbid obesity)? @ -None Was patient admitted / discharged? Hospital course, mention meds given and route, prescriptions, significant lab abnormalities, going to OR and other pertinent info. @ -Discharge. Patient presented to the emergency department for evaluation of nausea, vomiting, diarrhea, abdominal discomfort. She does have history of hepatitis and ascites. She states that her ascites does not feel any different than usual. Patient was provided medication for nausea and vomiting in the ED along with pain medication. Laboratory studies obtained.Patient WBC 3.4 which is improved from prior visit. Patient also has a potassium of 3.1 she received potassium supplementation, lactic acid of 2.3 which is likely due to dehydration. Bilirubin 3.4 which is consistent with the patient's prior. Discussed imaging options with patient. She declines at this time and would like treatment for her symptoms. She has not had any further episodes of vomiting in the ED. Patient is stable for discharge. She is understanding agreeable with discharge plan. Patient stable at time of discharge. Case discu ssed with Dr. Dewitt. Undiagnosed new problem with uncertain prognosis? @ -No Drug Therapy requiring intensive monitoring for toxicity (Heparin, Nitro, Insulin, Cardizem)? @ -No Were any procedures done? @ -No Diagnosis/symptom? @ -Abdominal pain, vomiting] Acute, or Chronic, or Acute on Chronic? @ -Acute Uncomplicated (without systemic symptoms) or Complicated (systemic symptoms)? @ -Uncomplicated Side effects of treatment? @ -No Exacerbation, Progression, or Severe Exacerbation? @ -No Poses a threat to life or bodily function? How? (Chest pain, [place], [place], pneumonia, PE, COPD, DKA, ARF, appy, cholecystitis, CVA, Diverticulitis, Homicidal, Suicidal, threat to staff... and all critical care pts) @ -No - Lab Data Result diagrams: 06/27/23 18:24 06/27/23 18:24 Lab Results 06/27/23 06/27/23 06/27/23 Range/Units 18:24 18:24 18:24 WBC 3.4 L (3.8-10.6) k/uL RBC 3.31 L (3.80-5.40) m/uL Hgb 12.2 (11.4-16.0) gm/dL Hct 36.6 (34.0-46.0) % MCV 110.7 H (80.0-100.0) fL MCH 37.0 H (25.0-35.0) pg MCHC 33.4 (31.0-37.0) g/dL RDW 13.8 (11.5-15.5) % Plt Count 77 L D (150-450) k/uL MPV 9.4 Neutrophils % (Manual) 76 % Lymphocytes % (Manual) 19 % Monocytes % (Manual) 5 % Neutrophils # (Manual) 2.58 (1.3-7.7) k/uL Lymphocytes # (Manual) 0.65 L (1.0-4.8) k/uL Monocytes # (Manual) 0.17 (0-1.0) k/uL Nucleated RBCs 0 (0-0) /100 WBC Manual Slide Review Performed Macrocytosis Marked A Sodium 137 (137-145) mmol/L Potassium 3.1 L (3.5-5.1) mmol/L Chloride 106 (98-107) mmol/L Carbon Dioxide 24 (22-30) mmol/L Anion Gap 7 mmol/L BUN 13 (7-17) mg/dL Creatinine 0.50 L (0.52-1.04) mg/dL Est GFR (CKD-EPI)AfAm >90 (>60 ml/min/1.73 sqM) Est GFR (CKD-EPI)NonAf >90 (>60 ml/min/1.73 sqM) Glucose 116 H (74-99) mg/dL Lactic Ac Sepsis Rflx Plasma Lactic Acid Darrius 2.3 H* (0.7-2.0) mmol/L Calcium 7.9 L (8.4-10.2) mg/dL Total Bilirubin 3.4 H (0.2-1.3) mg/dL AST 37 H (14-36) U/L ALT 18 (4-34) U/L Alkaline Phosphatase 93 (38-126) U/L Total Protein 6.3 (6.3-8.2) g/dL Albumin 2.6 L (3.5-5.0) g/dL Amylase 45 (30-110) U/L Lipase 129 (23-300) U/L // Range/Units 19:03 WBC (3.8-10.6) k/uL RBC (3.80-5.40) m/uL Hgb (11.4-16.0) gm/dL Hct (34.0-46.0) % MCV (80.0-100.0) fL MCH (25.0-35.0) pg MCHC (31.0-37.0) g/dL RDW (11.5-15.5) % Plt Count (150-450) k/uL MPV Neutrophils % (Manual) % Lymphocytes % (Manual) % Monocytes % (Manual) % Neutrophils # (Manual) (1.3-7.7) k/uL Lymphocytes # (Manual) (1.0-4.8) k/uL Monocytes # (Manual) (0-1.0) k/uL Nucleated RBCs (0-0) /100 WBC Manual Slide Review Macrocytosis Sodium (137-145) mmol/L Potassium (3.5-5.1) mmol/L Chloride (98-107) mmol/L Carbon Dioxide (22-30) mmol/L Anion Gap mmol/L BUN (7-17) mg/dL Creatinine (0.52-1.04) mg/dL Est GFR (CKD-EPI)AfAm (>60 ml/min/1.73 sqM) Est GFR (CKD-EPI)NonAf (>60 ml/min/1.73 sqM) Glucose (74-99) mg/dL Lactic Ac Sepsis Rflx Y Plasma Lactic Acid Darrius (0.7-2.0) mmol/L Calcium (8.4-10.2) mg/dL Total Bilirubin (0.2-1.3) mg/dL AST (14-36) U/L ALT (4-34) U/L Alkaline Phosphatase (38-126) U/L Total Protein (6.3-8.2) g/dL Albumin (3.5-5.0) g/dL Amylase (30-110) U/L Lipase (23-300) U/L Disposition Clinical Impression: Abdominal pain, Diarrhea Disposition: HOME SELF-CARE Condition: Stable Instructions (If sedation given, give patient instructions): Acute Nausea and Vomiting (ED), Acute Diarrhea (ED) Additional Instructions: Please follow up with your primary care provider. Return to the emergency department for new or worsening symptoms. Is patient prescribed a controlled substance at d/c from ED?: No Referrals: Mark Estrada MD [Primary Care Provider] - 1-2 days
[2023-06-27 19:00] LABS: ALT 18 U/L (4-34); AST 37 U/L (14-36); African American GFR (CKD) >90 (>60 ml/min/1.73 sqM); Albumin 2.6 g/dL (3.5-5.0); Alkaline Phosphatase 93 U/L (38-126); Amylase 45 U/L (30-110); Anion Gap 7 mmol/L; Blood Urea Nitrogen 13 mg/dL (7-17); Calcium 7.9 mg/dL (8.4-10.2); Carbon Dioxide 24 mmol/L (22-30); Chloride 106 mmol/L (98-107); Glucose 116 mg/dL (74-99); Lipase 129 U/L (23-300); Non-African American GFR(CKD) >90 (>60 ml/min/1.73 sqM); Potassium 3.1 mmol/L (3.5-5.1); Sodium 137 mmol/L (137-145); Total Bilirubin 3.4 mg/dL (0.2-1.3); Total Protein 6.3 g/dL (6.3-8.2)
[2023-06-27] MEDS: HYDROmorphone 0.5 MG/0.5 ML SYRINGE IVP STA ×2 (19:32→21:38)
[2023-06-27 19:34] LABS: Platelet Count 77 k/uL (150-450)
[2023-06-27 19:36] LABS: Lymphocytes # (M) 0.65 k/uL (1.0-4.8); Monocytes # (M) 0.17 k/uL (0-1.0); Neutrophils # (M) 2.58 k/uL (1.3-7.7); Neutrophils % (M) 76 %; Nucleated Red Blood Cells 0 /100 WBC (0-0); Total Cells Counted 100
[2023-06-27] MEDS ORDERED: Potassium Replacement Protocol 1 EACH MISC MISCELLANE PRN (19:51)
[2023-06-27 19:58] VITALS: RESP 18
[2023-06-27] MEDS: POTASSIUM CHLORIDE ER 20 MEQ TAB.ER PO SCH (20:02)
[2023-06-27] MEDS: ONDANSETRON 4 MG ODT STARTER PACK 2 TAB BTL PO STA (21:36)
[2023-06-27 21:38] VITALS: BP 136/66; PULSE 80
== END 2023-06-27 21:44 | disposition home or self-care (01) ==
LOC: EC 16:57
DX: R11.2 Nausea with vomiting, unspecified (principal); R19.7 Diarrhea, unspecified; R18.8 Other ascites; F17.200 Nicotine dependence, unspecified, uncomplicated; Z86.19 Personal history of other infectious and parasitic diseases
CPT/HCPCS: 99284; 96374; 96375 ×2; 96376; 96361; 36415; 80053; 82150; 83605; 83690; 85025; J2405; S0119; C9113; J1170

== ENCOUNTER 2023-09-13 19:12 | Emergency (ER) | payer MEDICARE, OTHER ==
[2023-09-13 19:27] VITALS: TEMP 98.3
[2023-09-13] MEDS: MORPHINE SULFATE 4 MG/ML SYRINGE IV STA (19:59)
[2023-09-13 20:33] LABS: Basophils % (A) 1 %; Eosinophils # (A) 0.1 k/uL (0-0.7); Eosinophils % (A) 5 %; HCT 36.7 % (34.0-46.0); HGB 12.2 gm/dL (11.4-16.0); Lymphocytes % (A) 40 %; MCH 35.4 pg (25.0-35.0); MCHC 33.3 g/dL (31.0-37.0); MCV 106.4 fL (80.0-100.0); Macrocytosis Moderate; Mean Platelet Volume 10.1; Monocytes # (A) 0.3 k/uL (0-1.0); Monocytes % (A) 10 %; Neutrophils # (A) 1.1 k/uL (1.3-7.7); Neutrophils % (A) 41 %; RBC 3.45 m/uL (3.80-5.40); RDW 13.7 % (11.5-15.5); WBC 2.6 k/uL (3.8-10.6)
[2023-09-13 20:39] LABS: Platelet Count 44 k/uL (150-450)
[2023-09-13 20:48] LABS: ALT 19 U/L (4-34); AST 41 U/L (14-36); African American GFR (CKD) >90 (>60 ml/min/1.73 sqM); Albumin 2.9 g/dL (3.5-5.0); Alkaline Phosphatase 86 U/L (38-126); Anion Gap 2 mmol/L; Blood Urea Nitrogen 14 mg/dL (7-17); C Reactive Protein 2.9 mg/dL (<1.0); Calcium 8.3 mg/dL (8.4-10.2); Carbon Dioxide 23 mmol/L (22-30); Chloride 113 mmol/L (98-107); Glucose 101 mg/dL (74-99); Non-African American GFR(CKD) >90 (>60 ml/min/1.73 sqM); Potassium 3.2 mmol/L (3.5-5.1); Sodium 138 mmol/L (137-145); Total Bilirubin 3.3 mg/dL (0.2-1.3); Total Protein 6.6 g/dL (6.3-8.2)
--- NOTE | 2023-09-13 21:29 | ED ---
Abdominal Pain HPI - General Chief Complaint: Abdominal Pain Stated Complaint: Fluid in stomach, Abdominal pain Time Seen by Provider: 09/13/23 19:32 Source: patient Mode of arrival: wheelchair Limitations: no limitations - History of Present Illness Initial Comments: This patient is a 58-year-old woman who complains of multiple days up to a week of abdominal bloating and discomfort related to increasing ascites. The patient states that she was not able to get an earlier due to transportation issues. She states that she thinks that it is time to have paracentesis performed. She has not had fever or chills. She is tolerating oral intake. No change in urination. Occasional soft stools, no bloody or tarry stools. No chest pain. No increase in leg swelling. MD Complaint: abdominal pain -: days(s) Location: diffuse Radiation: none Migration to: no migration Severity: moderate Quality: fullness, other (Bloating) Consistency: intermittent Improves With: nothing Worsens With: nothing Associated Symptoms: denies other symptoms - Related Data Home Medications Medication Instructions Recorded Confirmed HYDROmorphone [Dilaudid] 2 mg PO QID 09/06/19 05/27/23 Hydrocodone/Acetaminophen [[place] 1 tab PO QID 09/06/19 05/27/23 10-325] Previous Rx's Medication Instructions Recorded Amoxicillin 250 mg PO Q8HR #30 cap 05/28/23 Allergies Allergy/AdvReac Type Severity Reaction Status Date / Time No Known Allergies Allergy Verified 06/18/23 21:36 Review of Systems ROS Statement: Those systems with pertinent positive or pertinent negative responses have been documented in the HPI. ROS Other: All systems not noted in ROS Statement are negative. Constitutional: Denies: fever, chills, weakness Respiratory: Denies: cough, dyspnea Cardiovascular: Denies: chest pain, palpitations, edema Gastrointestinal: Reports: abdominal pain. Denies: nausea, vomiting, diarrhea, constipation, melena, hematochezia Genitourinary: Denies: dysuria, hematuria Musculoskeletal: Denies: back pain Skin: Denies: rash Neurological: Denies: headache, weakness, numbness Past Medical History Past Medical History: Cancer, COPD, GERD/Reflux, GI Bleed, Hearing Disorder / D eafness, Liver Disease Additional Past Medical History / Comment(s): Hepatitis C, intractable ascities with multiple paracentesis, cirrhosis, peritonitis, pancytopenia, vertigo once; multiple upper GI bleeds, esophageal varicies/esophageal banding, left breast cancer had chemo last on 09-12-16-did not tolerate-completed only 3 cycles-then it was stopped/received radiation treatments/pt states she did not follow up and so did not have surgery lt ear deafness, R ear [place], occasional R leg edema. History of Any Multi-Drug Resistant Organisms: None Reported Past Surgical History: Adenoidectomy, Breast Surgery, Tonsillectomy Additional Past Surgical History / Comment(s): Multiple paracentesises, EGDs, esophageal banding, right chest mediport since removed, l breast bx., Past Anesthesia/Blood Transfusion Reactions: No Reported Reaction Additional Past Anesthesia/Blood Transfusion Reaction / Comment(s): blood transfusions- no reaction Past Psychological History: Anxiety Smoking Status: Current some day smoker, Light tobacco smoker Past Alcohol Use History: None Reported Past Drug Use History: None Reported - Past Family History Mother Family Medical History: Cancer Additional Family Medical History / Comment(s): of lung ca at the age of 59yrs. She was a smoker. Father Family Medical History: Myocardial Infarction ([place]) Additional Family Medical History / Comment(s): from 2nd heart attack at the age of 59yrs. General Exam Limitations: no limitations General appearance: alert, in no apparent distress Head exam: Present: atraumatic, normocephalic Eye exam: Present: normal appearance. Absent: scleral icterus, conjunctival injection ENT exam: Present: normal oropharynx Neck exam: Present: normal inspection Respiratory exam: Present: normal lung sounds bilaterally. Absent: respiratory distress, wheezes, rales, rhonchi, stridor, accessory muscle use Cardiovascular Exam: Present: regular rate, normal rhythm, normal heart sounds. Absent: systolic murmur, diastolic murmur, rubs, gallop GI/Abdominal exam: Present: soft, other (There is moderate ascites present. No abdominal tenderness. The abdomen is not firm). Absent: distended, tenderness, guarding, rebound, rigid, mass, pulsatile mass Extremities exam: Present: normal inspection, normal capillary refill, pedal edema (Mild edema at the ankles bilaterally). Absent: calf tenderness Back exam: Present: normal inspection. Absent: CVA tenderness (R), CVA tenderness (L) Neurological exam: Present: alert Skin exam: Present: warm, dry, intact, normal color. Absent: rash Course Vital Signs 09/13/23 09/13/23 09/13/23 19:24 21:00 22:33 Temperature 98.3 F Pulse Rate 73 80 76 Respiratory 16 14 18 Rate Blood Pressure 147/78 126/87 141/73 O2 Sat by Pulse 98 99 97 Oximetry Medical Decision Making - Medical Decision Making Patient is 58-year-old woman here with abdominal pain related to ascites. The physical exam and patient's labs are not pointing towards peritonitis at this point. She is not having any difficulty with inspiratory effort. Given this patient at this point stable for paracentesis through the outpatient procedure. The patient is given medication which did relieve most of the abdominal discomfort and she states she can follow-up with the outpatient clinic tomorrow. We discussed return parameters. Was pt. sent in by a medical professional or institution (, PA, EQUIPMENT OPERATOR WAREHOUSE, urgent care, hospital, or fpc...) When possible be specific @ -[No] Did you speak to anyone other than the patient for history (EMS, parent, family, police, friend...)? What history was obtained from this source @ -[No] Did you review nursing and triage notes (agree or disagree)? Why? @ -[I reviewed and agree with nursing and triage notes] Were old charts reviewed (outside hosp., previous admission, EMS record, old EKG, old radiological studies, urgent care reports/EKG's, fpc records)? Report findings @ -[Yes, old charts were reviewed] Differential Diagnosis (chest pain, altered mental status, abdominal pain women, abdominal pain men, vaginal bleeding, weakness, fever, dyspnea, syncope, headache, dizziness, GI bleed, back pain, seizure, CVA, palpatations, mental health, musculoskeletal)? @ -[Differential Abdominal Pain Women: Appendicitis, Cholecystitis, diverticulosis, ischemic bowel, pancreatitis, hepatitis, UTI, gastroenteritis, AAA, incarcerated hernia, bowel obstruction, constipation, inflammatory bowel, hepatitis, peptic ulcer disease, splenic infarction, perforated viscus, vulvitis, ovarian torsion, PID, kidney stone, placenta abruption, this is not meant to be an all-inclusive list EKG interpreted by me (3pts min.). @ -[As above] X-rays interpreted by me (1pt min.). @ -[None done] CT interpreted by me (1pt min.). @ -[None done] U/S interpreted by me (1pt. min.). @ -[None done] What testing was considered but not performed or refused? (CT, X-rays, U/S, labs)? Why? @ -[None] What meds were considered but not given or refused? Why? @ -[None] Did you discuss the management of the patient with other professionals (professionals i.e. , PA, EQUIPMENT OPERATOR WAREHOUSE, lab, RT, psych nurse, geriatric social worker, family lawyer, teacher, loan servicing officer, case operator)? Give summary @ -[No] Was smoking cessation discussed for >3mins.? @ -[No] Was critical care preformed (if so, how long)? @ -[No] Were there social determinants of health that impacted care today? How? (Homelessness, low income, unemployed, alcoholism, drug addiction, transportation, low edu. Level, literacy, decrease access to med. care, residential, rehab)? @ -[No] Was there de-escalation of care discussed even if they declined (Discuss DNR or withdrawal of care, Hospice)? DNR status @ -[No] What co-morbidities impacted this encounter? (DM, HTN, Smoking, COPD, CAD, Cancer, CVA, ARF, Chemo, Hep., AIDS, mental health diagnosis, sleep apnea, morbid obesity)? @ -[Chronic liver disease Was patient admitted / discharged? Hospital course, mention meds given and ro maki, prescriptions, significant lab abnormalities, going to OR and other pertinent info. @ -[See the note above Undiagnosed new problem with uncertain prognosis? @ -[No] Drug Therapy requiring intensive monitoring for toxicity (Heparin, Nitro, Insulin, Cardizem)? @ -[No] Were any procedures done? @ -[No] Diagnosis/symptom? @ -[Acute on chronic ascites Abdominal pain due to ascites Acute, or Chronic, or Acute on Chronic? @ -[Acute on chronic Uncomplicated (without systemic symptoms) or Complicated (systemic symptoms)? @ -[Uncomplicated Side effects of treatment? @ -[No] Exacerbation, Progression, or Severe Exacerbation? @ -[No] Poses a threat to life or bodily function? How? (Chest pain, [place], [place], pneumonia, PE, COPD, DKA, ARF, appy, cholecystitis, CVA, Diverticulitis, Homicidal, S uicidal, threat to staff... and all critical care pts) @ -[No] - Lab Data Result diagrams: 09/13/23 19:51 09/13/23 19:51 Lab Results 09/13/23 09/13/23 09/13/23 Range/Units 19:51 19:51 19:51 WBC 2.6 L (3.8-10.6) k/uL RBC 3.45 L (3.80-5.40) m/uL Hgb 12.2 (11.4-16.0) gm/dL Hct 36.7 (34.0-46.0) % MCV 106.4 H (80.0-100.0) fL MCH 35.4 H (25.0-35.0) pg MCHC 33.3 (31.0-37.0) g/dL RDW 13.7 (11.5-15.5) % Plt Count 44 L (150-450) k/uL MPV 10.1 Neutrophils % 41 % Lymphocytes % 40 % Monocytes % 10 % Eosinophils % 5 % Basophils % 1 % Neutrophils # 1.1 L (1.3-7.7) k/uL Lymphocytes # 1.0 (1.0-4.8) k/uL Monocytes # 0.3 (0-1.0) k/uL Eosinophils # 0.1 (0-0.7) k/uL Basophils # 0.0 (0-0.2) k/uL Macrocytosis Moderate Sodium 138 (137-145) mmol/L Potassium 3.2 L (3.5-5.1) mmol/L Chloride 113 H (98-107) mmol/L Carbon Dioxide 23 (22-30) mmol/L Anion Gap 2 mmol/L BUN 14 (7-17) mg/dL Creatinine 0.57 (0.52-1.04) mg/dL Est GFR (CKD-EPI)AfAm >90 (>60 ml/min/1.73 sqM) Est GFR (CKD-EPI)NonAf >90 (>60 ml/min/1.73 sqM) Glucose 101 H (74-99) mg/dL Plasma Lactic Acid Dar[place] 1.6 (0.7-2.0) mmol/L Calcium 8.3 L (8.4-10.2) mg/dL Total Bilirubin 3.3 H (0.2-1.3) mg/dL AST 41 H (14-36) U/L ALT 19 (4-34) U/L Alkaline Phosphatase 86 (38-126) U/L C-Reactive Protein 2.9 H (<1.0) mg/dL Total Protein 6.6 (6.3-8.2) g/dL Albumin 2.9 L (3.5-5.0) g/dL Disposition Clinical Impression: Ascites Disposition: HOME SELF-CARE Condition: Good Instructions (If sedation given, give patient instructions): Ascites (ED) Is patient prescribed a controlled substance at d/c from ED?: No Referrals: Mark Estrada MD [Primary Care Provider] - 1-2 days
[2023-09-13] MEDS: HYDROmorphone 0.5 MG/0.5 ML SYRINGE IVP STA ×2 (21:30→22:35)
[2023-09-13 22:34] VITALS: BP 141/73; PULSE 76; RESP 18
== END 2023-09-13 23:11 | disposition home or self-care (01) ==
LOC: EC 19:12
DX: R18.8 Other ascites (principal); F17.200 Nicotine dependence, unspecified, uncomplicated
CPT/HCPCS: 36415; 80053; 83605; 85025; 86140; 84145; 99284; 96374; 96375; 96376; J2270; J1170

== ENCOUNTER 2023-09-29 12:35 | Day surgery (SDC) | payer MEDICARE, OTHER ==
[2023-09-29 13:20] VITALS: RESP 18; TEMP 98
[2023-09-29 13:22] LABS: Mean Platelet Volume 8.8
[2023-09-29 13:24] LABS: Platelet Count 67 k/uL (150-450)
[2023-09-29 13:25] LABS: African American GFR (CKD) >90 (>60 ml/min/1.73 sqM); Non-African American GFR(CKD) >90 (>60 ml/min/1.73 sqM)
[2023-09-29 13:27] LABS: INR 1.2 (<1.2)
[2023-09-29] MEDS: ALBUMIN HUMAN 25% 50 ML in EMPTY BAG 1 BAG IVPB SCH (13:49)
[2023-09-29 15:42] VITALS: BP 125/75; PULSE 68
[2023-09-30 02:18] LABS: Appearance,BF Clear (Clear)
[2023-09-30 03:06] LABS: LDH, Body Fluid Source Ascites; T. Protein, Body Fluid Source Ascites; Total Protein, Body Fluid 1910 mg/dL
--- NOTE | 2023-09-30 10:24 | US ---
EXAMINATION TYPE: US paracentesis abd w/image DATE OF EXAM: 09/29/2023 1:52 PM CLINICAL INDICATION:Female, 58 years old with history of K70.31 ascites; COMPARISON: 05/27/2019 ATTENDING: Dr. Francisco Rodriguez PROCEDURE: Informed consent was obtained. The risks of the procedure were extensively explained incl uding risk of damage to surrounding bowel with perforation and need for additional procedures. Proced ure was performed in the ultrasound procedure suite. Ultrasound imaging of the abdomen demonstrate as citic fluid. An appropriate access site was localized to the right lower abdomen. Timeout was taken p er protocol. The skin was prepped and draped in the usual sterile fashion and then locally anesthetiz ed with 1% lidocaine. The peritoneal cavity was then accessed via a 5-[place] one-step needle/cathete r. Approximately 8800 cc of clear straw-colored fluid was obtained. Postprocedural imaging of the ab domen demonstrate a minimal amount of abdominal fluid. Patient tolerated procedure well without immediate complication. Hemostasis at the procedural site w as obtained with a sterile bandage placed. The patient was monitored in the holding area following th e procedure and was subsequently discharged in stable condition. IMPRESSION: Ultrasound guided paracentesis, with approximately 8800 cc of clear straw-colored fluid drained. Path ology results pending. No immediate complications were evident.
== END 2023-09-29 15:15 | disposition home or self-care (01) ==
LOC: RADPROMAIN 12:35
PROVIDERS: ATTEND Family Medicine
DX: R18.8 Other ascites (principal)
CPT/HCPCS: 89050; 82565; 85049; 85610; 83615; 84157; 36415; 49083; P9047; 88108; 88305

== ENCOUNTER 2023-10-01 17:08 | Emergency (ER) | payer MEDICARE, OTHER ==
[2023-10-01 19:20] VITALS: TEMP 98.2
[2023-10-01] MEDS: SODIUM CHLORIDE 0.9% 500 ML 500 ML IV STA (20:36)
[2023-10-01] MEDS: ONDANSETRON 4 MG/2 ML VIAL IVP STA (20:37)
[2023-10-01] MEDS: MORPHINE SULFATE 4 MG/ML SYRINGE IVP STA (20:38)
[2023-10-01 21:02] LABS: ALT 14 U/L (4-34); AST 32 U/L (14-36); African American GFR (CKD) >90 (>60 ml/min/1.73 sqM); Albumin 3.3 g/dL (3.5-5.0); Alkaline Phosphatase 97 U/L (38-126); Amylase 38 U/L (30-110); Anion Gap 2 mmol/L; Blood Urea Nitrogen 12 mg/dL (7-17); Carbon Dioxide 26 mmol/L (22-30); Chloride 112 mmol/L (98-107); Glucose 85 mg/dL (74-99); Lipase 123 U/L (23-300); Non-African American GFR(CKD) >90 (>60 ml/min/1.73 sqM); Sodium 140 mmol/L (137-145); Total Bilirubin 2.7 mg/dL (0.2-1.3); Total Protein 7.2 g/dL (6.3-8.2)
--- NOTE | 2023-10-01 21:14 | ED ---
Abdominal Pain HPI - General Chief Complaint: Abdominal Pain Time Seen by Provider: 10/01/23 19:35 Source: patient Mode of arrival: ambulatory Limitations: no limitations - History of Present Illness Initial Comments: 58-year-old female with history of hepatitis C and ascites presenting with chief complaint of abdominal pain. 2 days ago she had a paracentesis performed at our facility. She states that afterwards she had more pain than usual. She has had persistent diffuse abdominal pain. She feels nauseous but has had no vomiting. No fevers. No dysuria or hematuria. No hematochezia or melena. No chest pain or difficulty breathing. No weakness. No URI-like symptoms. - Related Data Home Medications Medication Instructions Recorded Confirmed HYDROmorphone [Dilaudid] 2 mg PO QID 09/06/19 09/29/23 Hydrocodone/Acetaminophen [[place] 1 tab PO QID 09/06/19 09/29/23 10-325] Allergies Allergy/AdvReac Type Severity Reaction Status Date / Time No Known Allergies Allergy Verified 09/29/23 13:32 Review of Systems ROS Statement: Those systems with pertinent positive or pertinent negative responses have been documented in the HPI. ROS Other: All systems not noted in ROS Statement are negative. Past Medical History Past Medical History: Cancer, COPD, GERD/Reflux, GI Bleed, Hearing Disorder / Deafness, Liver Disease Additional Past Medical History / Comment(s): Hepatitis C, intractable ascities with multiple paracentesis, cirrhosis, peritonitis, pancytopenia, vertigo once; multiple upper GI bleeds, esophageal varicies/esophageal banding, left breast cancer had chemo last on 09-12-16-did not tolerate-completed only 3 cycles-then it was stopped/received radiation treatments/pt states she did not follow up and so did not have surgery lt ear deafness, R ear PILOT STATION, occasional R leg edema. History of Any Multi-Drug Resistant Organisms: None Reported Past Surgical History: Adenoidectomy, Breast Surgery, Tonsillectomy Additional Past Surgical History / Comment(s): Multiple paracentesises, EGDs, esophageal banding, right chest mediport since removed, l breast bx., Past Anesthesia/Blood Transfusion Reactions: No Reported Reaction Additional Past Anesthesia/Blood Transfusion Reaction / Comment(s): blood transfusions- no reaction Past Psychological History: Anxiety Smoking Status: Current some day smoker, Light tobacco smoker Past Alcohol Use History: None Reported Past Drug Use History: None Reported - Past Family History Mother Family Medical History: Cancer Additional Family Medical History / Comment(s): of lung ca at the age of 59yrs. She was a smoker. Father Family Medical History: Myocardial Infarction ([place]) Additional Family Medical History / Comment(s): from 2nd heart attack at the age of 59yrs. General Exam Limitations: no limitations General appearance: alert, in no apparent distress Head exam: Present: atraumatic, normocephalic Eye exam: Present: normal appearance, EOMI Neck exam: Present: normal inspection. Absent: meningismus Respiratory exam: Present: normal lung sounds bilaterally. Absent: respiratory distress, wheezes, rales, rhonchi, stridor Cardiovascular Exam: Present: regular rate, normal rhythm, normal heart sounds. Absent: systolic murmur, diastolic murmur, rubs, gallop, clicks GI/Abdominal exam: Present: soft, tenderness, guarding. Absent: distended, rebound, rigid Neurological exam: Present: alert, oriented X3 Psychiatric exam: Present: normal affect, normal mood Skin exam: Present: warm, dry Course Vital Signs 10/01/23 10/01/23 17:30 22:08 Temperature 98.2 F Pulse Rate 86 84 Respiratory 20 18 Rate Blood Pressure 144/74 148/83 O2 Sat by Pulse 98 98 Oximetry Medical Decision Making - Medical Decision Making Was pt. sent in by a medical professional or institution (, PA, TRUCK CRANE OPERATOR HELPER, urgent care, hospital, or jail...) When possible be specific @ -No Did you speak to anyone other than the patient for history (EMS, parent, family, police, friend...)? What history was obtained from this source @ -No Did you review nursing and triage notes (agree or disagree)? Why? @ -I reviewed and agree with nursing and triage notes Were old charts reviewed (outside hosp., previous admission, EMS record, old EKG, old radiological studies, urgent care reports/EKG's, jail records)? Report findings @ -No old charts were reviewed Differential Diagnosis (chest pain, altered mental status, abdominal pain women, abdominal pain men, vaginal bleeding, weakness, fever, dyspnea, syncope, headache, dizziness, GI bleed, back pain, seizure, CVA, palpatations, mental health, musculoskeletal)? @ -[facility] Differential Abdominal Pain Women: Appendicitis, Cholecystitis, diverticulosis, ischemic bowel, pancreatitis, hepatitis, UTI, gastroenteritis, AAA, incarcerated hernia, bowel obstruction, constipation, inflammatory bowel, hepatitis, peptic ulcer disease, splenic infarction, perforated viscus, vulvitis, ovarian torsion, PID, kidney stone, placenta abruption... This is not meant to be an all-inclusive list EKG interpreted by me (3pts min.). @ -As above X-rays interpreted by me (1pt min.). @ -None done CT interpreted by me (1pt min.). @ -Persistent cirrhosis with evidence of portal venous hypertension as detailed above. Cavernous transformation of the portal vein is noted. No definitive new acute findings are present U/S interpreted by me (1pt. min.). @ -None done What testing was considered but not performed or refused? (CT, X-rays, U/S, labs)? Why? @ -None What meds were considered but not given or refused? Why? @ -None Did you discuss the management of the patient with other professionals (professionals i.e. , PA, TRUCK CRANE OPERATOR HELPER, lab, RT, psych nurse, social group worker, spiral spring winder, teacher, mechanical engineering officer, medical case manager)? Give summary @ -No Was smoking cessation discussed for >3mins.? @ -No Was critical care preformed (if so, how long)? @ -No Were there social determinants of health that impacted care today? How? (Homelessness, low income, unemployed, alcoholism, drug addiction, transpo rtation, low edu. Level, literacy, decrease access to med. care, usp, rehab)? @ -No Was there de-escalation of care discussed even if they declined (Discuss DNR or withdrawal of care, Hospice)? DNR status @ -No What co-morbidities impacted this encounter? (DM, HTN, Smoking, COPD, CAD, Cancer, CVA, ARF, Chemo, Hep., AIDS, mental health diagnosis, sleep apnea, morbid obesity)? @ -Hepatitis C with cirrhosis and frequent ascites Was patient admitted / discharged? Hospital course, mention meds given and route, prescriptions, significant lab abnormalities, going to OR and other pertinent info. @ -58-year-old female presenting with chief complaint of abdominal pain. It has been ongoing for 2 days since her paracentesis. Pain is diffuse. On exam there is nonspecific pain. Lab work shows WBC 2.8, patient seems to have a chronically low white count. Hemoglobin is normal. CMP and UA require no further action. Normal amylase and lipase. CT shows no new acute findings. On reassessment after pain medication patient reports improvement in her symptoms. Educated on today's findings. Discharged home. Follow-up with PCP. Report back to ER with any new or worsening symptoms. Discussed return parameters and answered all questions. Patient conveyed verbal understanding and agreed to the plan. I discussed this case in detail with my attending Dr. Jimenez Undiagnosed new problem with uncertain prognosis? @ -No Drug Therapy requiring intensive monitoring for toxicity (Heparin, Nitro, Insulin, Cardizem)? @ -No Were any procedures done? @ -No Diagnosis/symptom? @ -Abdominal pain Acute, or Chronic, or Acute on Chronic? @ -Acute Uncomplicated (without systemic symptoms) or Complicated (systemic symptoms)? @ -Uncomplicated Side effects of treatment? @ -No Exacerbation, Progression, or Severe Exacerbation? @ -No Poses a threat to life or bodily function? How? (Chest pain, [place], [place], pneumonia, PE, COPD, DKA, ARF, appy, cholecystitis, CVA, Diverticulitis, Homicidal, Suic idal, threat to staff... and all critical care pts) @ -Low likelihood - Lab Data Result diagrams: 10/01/23 20:30 10/01/23 20:30 Lab Results 10/01/23 10/01/23 10/01/23 Range/Units 20:02 20:30 20:30 WBC 2.8 L (3.8-10.6) k/uL RBC 3.73 L (3.80-5.40) m/uL Hgb 13.2 (11.4-16.0) gm/dL Hct 39.4 (34.0-46.0) % MCV 105.6 H (80.0-100.0) fL MCH 35.3 H (25.0-35.0) pg MCHC 33.4 (31.0-37.0) g/dL RDW 13.4 (11.5-15.5) % Plt Count 64 L (150-450) k/uL MPV 9.9 Neutrophils % 52 % Lymphocytes % 33 % Monocytes % 8 % Eosinophils % 4 % Basophils % 1 % Neutrophils # 1.5 (1.3-7.7) k/uL Lymphocytes # 0.9 L (1.0-4.8) k/uL Monocytes # 0.2 (0-1.0) k/uL Eosinophils # 0.1 (0-0.7) k/uL Basophils # 0.0 (0-0.2) k/uL Manual Slide Review Performed Large Platelets Present Polychromasia Present Macrocytosis Moderate Sodium 140 (137-145) mmol/L Potassium 4.0 (3.5-5.1) mmol/L Chloride 112 H (98-107) mmol/L Carbon Dioxide 26 (22-30) mmol/L Anion Gap 2 mmol/L BUN 12 (7-17) mg/dL Creatinine 0.54 (0.52-1.04) mg/dL Est GFR (CKD-EPI)AfAm >90 (>60 ml/min/1.73 sqM) Est GFR (CKD-EPI)NonAf >90 (>60 ml/min/1.73 sqM) Glucose 85 (74-99) mg/dL Plasma Lactic Acid Darrius (0.7-2.0) mmol/L Calcium 9.0 (8.4-10.2) mg/dL Total Bilirubin 2.7 H (0.2-1.3) mg/dL AST 32 (14-36) U/L ALT 14 (4-34) U/L Alkaline Phosphatase 97 (38-126) U/L Total Protein 7.2 (6.3-8.2) g/dL Albumin 3.3 L (3.5-5.0) g/dL Amylase 38 (30-110) U/L Lipase 123 (23-300) U/L Urine Color Yellow Urine Appearance Clear (Clear) Urine pH 6.5 (5.0-8.0) Ur Specific [place] 1.014 (1.001-1.035) Urine Protein Negative (Negative) Urine Glucose (UA) Negative (Negative) Urine Ketones Negative (Negative) Urine Blood Negative (Negative) Urine Nitrite Negative (Negative) Urine Bilirubin Negative (Negative) Urine Urobilinogen 4.0 (<2.0) mg/dL Ur Leukocyte Esterase Negative (Negative) 10/01/23 Range/Units 20:30 WBC (3.8-10.6) k/uL RBC (3.80-5.40) m/uL Hgb (11.4-16.0) gm/dL Hct (34.0-46.0) % MCV (80.0-100.0) fL MCH (25.0-35.0) pg MCHC (31.0-37.0) g/dL RDW (11.5-15.5) % Plt Count (150-450) k/uL MPV Neutrophils % % Lymphocytes % % Monocytes % % Eosinophils % % Basophils % % Neutrophils # (1.3-7.7) k/uL Lymphocytes # (1.0-4.8) k/uL Monocytes # (0-1.0) k/uL Eosinophils # (0-0.7) k/uL Basophils # (0-0.2) k/uL Manual Slide Review Large Platelets Polychromasia Macrocytosis Sodium (137-145) mmol/L Potassium (3.5-5.1) mmol/L Chloride (98-107) mmol/L Carbon Dioxide (22-30) mmol/L Anion Gap mmol/L BUN (7-17) mg/dL Creatinine (0.52-1.04) mg/dL Est GFR (CKD-EPI)AfAm (>60 ml/min/1.73 sqM) Est GFR (CKD-EPI)NonAf (>60 ml/min/1.73 sqM) Glucose (74-99) mg/dL Plasma Lactic Acid [place] 1.5 (0.7-2.0) mmol/L Calcium (8.4-10.2) mg/dL Total Bilirubin (0.2-1.3) mg/dL AST (14-36) U/L ALT (4-34) U/L Alkaline Phosphatase (38-126) U/L Total Protein (6.3-8.2) g/dL Albumin (3.5-5.0) g/dL Amylase (30-110) U/L Lipase (23-300) U/L Urine Color Urine Appearance (Clear) Urine pH (5.0-8.0) Ur Specific [place] (1.001-1.035) Urine Protein (Negative) Urine Glucose (UA) (Negative) Urine Ketones (Negative) Urine Blood (Negative) Urine Nitrite (Negative) Urine Bilirubin (Negative) Urine Urobilinogen (<2.0) mg/dL Ur Leukocyte Esterase (Negative) Disposition Clinical Impression: Abdominal pain Disposition: HOME SELF-CARE Condition: Fair Instructions (If sedation given, give patient instructions): Abdominal Pain (ED) Additional Instructions: Follow-up with your PCP. Report back to ER with any new or worsening symptoms. Is patient prescribed a controlled substance at d/c from ED?: No Referrals: Mark Estrada MD [Primary Care Provider] - 1-2 days Time of Disposition: 22:16
[2023-10-01 21:27] LABS: Appearance,Urine Clear (Clear); Bilirubin,Urine Negative (Negative); Blood,Urine Negative (Negative); Color,Urine Yellow; Glucose,Urine (UA) Negative (Negative); Ketones,Urine Negative (Negative); Leukocyte Esterase,Urine Negative (Negative); Nitrite,Urine Negative (Negative); PH, Urine 6.5 (5.0-8.0); Protein,Urine Negative (Negative); Specific Gravity,Urine 1.014 (1.001-1.035)
[2023-10-01 21:33] LABS: Basophils % (A) 1 %; Eosinophils # (A) 0.1 k/uL (0-0.7); Eosinophils % (A) 4 %; HCT 39.4 % (34.0-46.0); HGB 13.2 gm/dL (11.4-16.0); Lymphocytes # (A) 0.9 k/uL (1.0-4.8); Lymphocytes % (A) 33 %; MCH 35.3 pg (25.0-35.0); MCHC 33.4 g/dL (31.0-37.0); MCV 105.6 fL (80.0-100.0); Macrocytosis Moderate; Mean Platelet Volume 9.9; Monocytes # (A) 0.2 k/uL (0-1.0); Monocytes % (A) 8 %; Neutrophils # (A) 1.5 k/uL (1.3-7.7); Neutrophils % (A) 52 %; RBC 3.73 m/uL (3.80-5.40); RDW 13.4 % (11.5-15.5); WBC 2.8 k/uL (3.8-10.6)
--- NOTE | 2023-10-01 21:33 | CT ---
EXAMINATION TYPE: CT abdomen pelvis w con DATE OF EXAM: 10/01/2023 HISTORY: Abdominal pain, history of HEP C and pancreatitis. CT DLP: 746.2mGycm Automated Exposure Control for Dose Reduction was Utilized. CONTRAST: CT scan of the abdomen and pelvis is performed with IV Contrast, patient injected with 100 cc mL of I sovue 300. COMPARISON: Prior CT June 18, 2023 FINDINGS: LUNG BASES: No significant abnormality is appreciated. LIVER/GB: Small sized liver with adjacent ascites redemonstrated. Contracted gallbladder on current s tudy with internal gallstones redemonstrated. Main portal vein is nonopacified and presumed thrombose d with collateral vessels at the selena hepatis identified and better on current study likely present on prior. PANCREAS: Moderate generalized atrophy more prominent versus prior. SPLEEN: Mild splenomegaly at 14.0 cm long axis measures 24 similar to prior. ADRENALS: No significant abnormality is seen. KIDNEYS: No significant abnormality is seen. BOWEL: No abnormal small large bowel dilatation. There area areas of mild/moderate wall thickening i nvolving small bowel loops in the left abdomen are present. Finding likely on the basis of underlying liver disease. UTERUS/ADNEXA: No gross abnormality seen. LYMPH NODES: No greater than 1cm abdominal or pelvic lymph nodes are appreciated. OSSEOUS STRUCTURES: No significant abnormality is seen. OTHER: Small to moderate amount of ascites throughout the abdomen and pelvis slightly less prominent versus prior. Prominent collateral vessels in the retroperitoneum near the aortic bifurcation are michelle ntified. IMPRESSION: Persistent cirrhosis with evidence of portal venous hypertension as detailed above. Nicole nous transformation of the portal vein is noted. No definitive new acute findings are present.
[2023-10-01 22:01] LABS: Large Platelets Present
[2023-10-01 22:02] LABS: Platelet Count 64 k/uL (150-450); Polychromasia Present
[2023-10-01 22:10] VITALS: BP 148/83; PULSE 84; RESP 18
[2023-10-01] MEDS: HYDROmorphone 1 MG/ML 1 ML SYRINGE IVP STA (22:10)
== END 2023-10-01 22:37 | disposition home or self-care (01) ==
LOC: EC 17:08
DX: K74.60 Unspecified cirrhosis of liver (principal); K76.6 Portal hypertension; F17.200 Nicotine dependence, unspecified, uncomplicated
CPT/HCPCS: 36415; 80053; 82150; 83605; 83690; 85025; 81003; 74177; 99284; 96374; 96375 ×2; 96361; J2270; J2405; J1170; Q9967

== ENCOUNTER 2024-07-19 19:10 | Emergency (ER) | payer MEDICARE, OTHER ==
--- NOTE | 2024-07-19 19:51 | ED ---
Abdominal Pain HPI - General Chief Complaint: Abdominal Pain Stated Complaint: abd pain Time Seen by Provider: 07/19/24 19:26 Source: patient, RN notes reviewed Mode of arrival: ambulatory Limitations: no limitations - History of Present Illness Initial Comments: This is a 58-year-old female who presents to the emergency department for abdominal pain. Patient has a history of cirrhosis with ascites, requiring frequent paracentesis. The cirrhosis was caused by hepatitis C many years ago. Most recent paracentesis was a month ago. States that for the last week she has had increasing abdominal pain and distention. Over the last couple of days she started to develop nausea, vomiting, and diarrhea. She has not measured any fevers or chills. She is taking Lasix, but states that it has not been effective. Does not currently follow with a director college. MD Complaint: abdominal pain - Related Data Home Medications Medication Instructions Recorded Confirmed HYDROmorphone [Dilaudid] 2 mg PO QID 09/06/19 09/29/23 Hydrocodone/Acetaminophen [[place] 1 tab PO QID 09/06/19 09/29/23 10-325] Allergies Allergy/AdvReac Type Severity Reaction Status Date / Time No Known Allergies Allergy Verified 07/19/24 19:22 Review of Systems ROS Statement: Those systems with pertinent positive or pertinent negative responses have been documented in the HPI. ROS Other: All systems not noted in ROS Statement are negative. Past Medical History Past Medical History: Cancer, COPD, GERD/Reflux, GI Bleed, Hearing Disorder / Deafness, Liver Disease Additional Past Medical History / Comment(s): Hepatitis C, intractable ascities with multiple paracentesis, cirrhosis, peritonitis, pancytopenia, vertigo once; multiple upper GI bleeds, esophageal varicies/esophageal banding, left breast cancer had chemo last on 09-12-16-did not tolerate-completed only 3 cycles-then it was stopped/received radiation treatments/pt states she did not follow up and so did not have surgery lt ear deafness, R ear [place], occasional R leg edema. History of Any Multi-Drug Resistant Organisms: None Reported Past Surgical History: Adenoidectomy, Breast Surgery, Tonsillectomy Additional Past Surgical History / Comment(s): Multiple paracentesises, EGDs, esophageal banding, right chest mediport since removed, l breast bx., Past Anesthesia/Blood Transfusion Reactions: No Reported Reaction Additional Past Anesthesia/Blood Transfusion Reaction / Comment(s): blood transfusions- no reaction Past Psychological History: Anxiety Smoking Status: Current every day smoker Past Alcohol Use History: None Reported Past Drug Use History: None Reported - Past Family History Mother Family Medical History: Cancer Additional Family Medical History / Comment(s): of lung ca at the age of 59yrs. She was a smoker. Father Family Medical History: Myocardial Infarction ([place]) Additional Family Medical History / Comment(s): from 2nd heart attack at the age of 59yrs. General Exam Limitations: no limitations General appearance: alert, in no apparent distress Head exam: Present: atraumatic, normocephalic, normal inspection Respiratory exam: Present: normal lung sounds bilaterally. Absent: respiratory distress, wheezes, rales, rhonchi, stridor Cardiovascular Exam: Present: normal rhythm, tachycardia GI/Abdominal exam: Present: distended, tenderness Neurological exam: Present: alert, oriented X3, CN II-XII intact Psychiatric exam: Present: normal affect, normal mood Skin exam: Present: other (Jaundice) Course Vital Signs 07/19/24 07/19/24 07/19/24 19:16 21:29 22:29 Temperature 99.8 F H 98.5 F Pulse Rate 122 H 114 H Respiratory 20 20 Rate Blood Pressure 129/84 113/70 O2 Sat by Pulse 95 93 L Oximetry 07/20/24 00:20 Temperature Pulse Rate 105 H Respiratory 18 Rate Blood Pressure 102/64 O2 Sat by Pulse 93 L Oximetry Medical Decision Making - Medical Decision Making This is a 58-year-old female who presents to the emergency department for abdominal pain. Was pt. sent in by a medical professional or institution? @ -No Did you speak to anyone other than the patient for history? @ -No Did you review nursing and triage notes? @ -Yes, and I agree, it is accurate with regards to the patient's symptoms. Were old charts reviewed? @ -No Differential Diagnosis? @ -Differential Abdominal Pain Women: Appendicitis, Cholecystitis, diverticulosis, ischemic bowel, pancreatitis, hepatitis, UTI, gastroenteritis, AAA, incarcerated hernia, bowel obstruction, c onstipation, inflammatory bowel, hepatitis, peptic ulcer disease, splenic infarction, perforated viscus, vulvitis, ovarian torsion, PID, kidney stone, placenta abruption, this is not meant to be an all-inclusive list EKG interpreted by me (3pts min.)? @ -EKG interpreted by me demonstrating the following: Sinus tachycardia. Ventricular rate 104 bpm, OH interval 164 ms, QRS duration 126 ms, QTc 482 ms. X-rays interpreted by me (1pt min.)? @ -Not obtained CT interpreted by me (1pt min.)? @ -CT scan of the abdomen and pelvis obtained. My interpretation identifies CBD dilation. U/S interpreted by me (1pt. min.)? @ -Not obtained What testing was considered but not performed? (CT, X-rays, U/S, labs)? Why? @ -None What meds were considered but not given? Why? @ -None Did you discuss the management of the patient with other professionals? @ -Yes, Dr. Samaniego, who accepts the patient for transfer at [facility]. Did you reconcile home meds? @ -No Was smoking cessation discussed for >3mins.? @ -I discussed smoking cessation for greater than 3 minutes. The risk of smoking were discussed with the patient including but not limited to risks of cancer, stroke, coronary artery disease and COPD. Also discussed with patient were multiple methods of quitting smoking. Lastly we discussed the financial cost of smoking. Was critical care preformed (if so, how long)? @ -No Were there social determinants of health that impacted care today? How? (Homelessness, low income, unemployed, alcoholism, drug addiction, transportation, low edu. Level, literacy, decrease access to med. care, care home, rehab)? @ -No Was there de-escalation of care discussed even if they declined? (Discuss DNR or withdrawal of care, Hospice)? @ -No What co-morbidities impacted this encounter? (DM, HTN, Smoking, COPD, CAD, Cancer, CVA, Hep., AIDS, mental health diagnosis, sleep apnea, morbid obesity)? @ -Cirrhosis, smoking Was patient admitted / discharged? @ -Transferred. Lactic acid elevated at 5.0. Bilirubin elevated at 13.4. Conjugated bilirubin 5.5 and unconjugated 6.5. She also has hypokalemia with a potassium of 3.0. 40 mEq of K-Dur and 20 mEq of potassium chloride administered. CT scan of the abdomen and pelvis obtained demonstrating concerns for choledocholithiasis with upstream CBD dilation of 12 mm. There is also thickening/hyperenhancement of the CBD which could reflect superimposed infectious or inflammatory cholangitis. Blood culture was obtained and she was started on Ceftriaxone and Flagyl. Patient will require evaluation by GI, which we do not have available at our facility. We had initially attempted to transfer her to [facility], however they declined transfer as they did not think this was a gastroenterology issue, but a general surgery one. It appears that there was likely some miscommunication in this regard, as this is certainly a GI issue. We subsequently reached out to [facility] and she was accepted for ED to ED transfer at their facility. Patient transferred via EMS in stable condition. Case discussed with ED attending Dr. Keita. Undiagnosed new problem with uncertain prognosis? @ -None Drug Therapy requiring intensive monitoring for toxicity (Heparin, Nitro, Insulin, Cardizem)? @ -None Were any procedures done? @ -None Diagnosis/symptom? @ -Choledocholithiasis, cholangitis Acute, or Chronic, or Acute on Chronic? @ -Acute Uncomplicated (without systemic symptoms) or Complicated (systemic symptoms)? @ -Complicated Side effects of treatment? @ -None Exacerbation, Progression, or Severe Exacerbation] @ -Not applicable Poses a threat to life or bodily function? @ -Yes, can lead to life-threatening infection - Lab Data Result diagrams: 07/19/24 20:05 07/19/24 20:05 Lab Results 07/19/24 07/19/24 07/19/24 Range/Units 20:05 20:05 20:05 WBC 4.25 L (4.50-10.00) 10*3/uL RBC 3.57 L (4.10-5.20) 10*6/uL Hgb 12.6 (12.0-15.0) g/dL Hct 36.5 L (37.2-46.3) % MCV 102.2 H (80.0-97.0) fL MCH 35.3 H (27.0-32.0) pg MCHC 34.5 (32.0-37.0) g/dL Plt Count 53 L (140-440) 10*3/uL MPV 12.1 (9.5-12.2) fL Immature Gran % (Auto) 0.2 % Neutrophils % 85.3 % Lymphocytes % 9.4 % Monocytes % 4.9 % Eosinophils % 0.0 % Basophils % 0.2 % Immature Gran # 0.01 (0.00-0.04) 10*3/uL Neutrophils # 3.62 (1.80-7.70) 10*3/uL Lymphocytes # 0.40 L (0.90-5.00) 10*3/uL Monocytes # 0.21 (0.20-1.00) 10*3/uL Eosinophils # 0.00 L (0.04-0.35) 10*3/uL Basophils # 0.01 (0.00-0.10) 10*3/uL Immature Plt Fraction 3.5 (1.1-6.1) % PT 14.3 H (10.0-12.5) sec INR 1.4 H (<1.2) APTT 27.9 (22.0-30.0) sec Sodium 136 L (137-145) mmol/L Potassium 3.0 L (3.5-5.1) mmol/L Chloride 102 (98-107) mmol/L Carbon Dioxide 21 L (22-30) mmol/L Anion Gap 13 mmol/L BUN 18 H (7-17) mg/dL Creatinine 0.89 (0.52-1.04) mg/dL Est GFR (CKD-EPI)AfAm 82 (>60 ml/min/1.73 sqM) Est GFR (CKD-EPI)NonAf 71 (>60 ml/min/1.73 sqM) Glucose 106 H (74-99) mg/dL Lactic Ac Sepsis Rflx Plasma Lactic Acid Darrius (0.7-2.0) mmol/L Calcium 8.8 (8.4-10.2) mg/dL Total Bilirubin 13.4 H (0.2-1.3) mg/dL Conjugated Bilirubin 5.5 H (0.0-0.3) mg/dL Unconjugated Bilirubin 6.5 H (0.0-1.1) mg/dL Delta Bilirubin 1.4 H (0.0-0.2) mg/dL AST 96 H (14-36) U/L ALT 44 H (4-34) U/L Alkaline Phosphatase 147 H (38-126) U/L Total Protein 8.1 (6.3-8.2) g/dL Albumin 3.2 L (3.5-5.0) g/dL Amylase 38 (30-110) U/L Lipase 28 (23-300) U/L 07/19/24 07/19/24 Range/Units 20:05 20:40 WBC (4.50-10.00) 10*3/uL RBC (4.10-5.20) 10*6/uL Hgb (12.0-15.0) g/dL Hct (37.2-46.3) % MCV (80.0-97.0) fL MCH (27.0-32.0) pg MCHC (32.0-37.0) g/dL Plt Count (140-440) 10*3/uL MPV (9.5-12.2) fL Immature Gran % (Auto) % Neutrophils % % Lymphocytes % % Monocytes % % Eosinophils % % Basophils % % Immature Gran # (0.00-0.04) 10*3/uL Neutrophils # (1.80-7.70) 10*3/uL Lymphocytes # (0.90-5.00) 10*3/uL Monocytes # (0.20-1.00) 10*3/uL Eosinophils # (0.04-0.35) 10*3/uL Basophils # (0.00-0.10) 10*3/uL Immature Plt Fraction (1.1-6.1) % PT (10.0-12.5) sec INR (<1.2) APTT (22.0-30.0) sec Sodium (137-145) mmol/L Potassium (3.5-5.1) mmol/L Chloride (98-107) mmol/L Carbon Dioxide (22-30) mmol/L Anion Gap mmol/L BUN (7-17) mg/dL Creatinine (0.52-1.04) mg/dL Est GFR (CKD-EPI)AfAm (>60 ml/min/1.73 sqM) Est GFR (CKD-EPI)NonAf (>60 ml/min/1.73 sqM) Glucose (74-99) mg/dL Lactic Ac Sepsis Rflx Y Plasma Lactic Acid Dar[place] 5.0 H* (0.7-2.0) mmol/L Calcium (8.4-10.2) mg/dL Total Bilirubin (0.2-1.3) mg/dL Conjugated Bilirubin (0.0-0.3) mg/dL Unconjugated Bilirubin (0.0-1.1) mg/dL Delta Bilirubin (0.0-0.2) mg/dL AST (14-36) U/L ALT (4-34) U/L Alkaline Phosphatase (38-126) U/L Total Protein (6.3-8.2) g/dL Albumin (3.5-5.0) g/dL Amylase (30-110) U/L Lipase (23-300) U/L - Radiology Data Radiology results: report reviewed, image reviewed Disposition Clinical Impression: Choledocholithiasis, Ascending cholangitis, Nicotine dependence Disposition: OTHER INSTITUTION NOT DEFINED Referrals: Mark Estrada MD [Primary Care Provider] - 1-2 days - Out of Hospital Transfer - Req. Specs Out of Hospital Transfer - Requested Specifics: Other Emergency Center ([facility]
[2024-07-19] MEDS: ONDANSETRON 4 MG/2 ML VIAL IVP STA (20:14)
[2024-07-19] MEDS: HYDROmorphone 1 MG/ML 1 ML SYRINGE IVP STA ×2 (20:15→21:04)
[2024-07-19 20:28] LABS: Basophils # (A) 0.01 10*3/uL (0.00-0.10); Basophils % (A) 0.2 %; HCT 36.5 % (37.2-46.3); HGB 12.6 g/dL (12.0-15.0); Immature Platelet Fraction 3.5 % (1.1-6.1); Lymphocytes % (A) 9.4 %; MCH 35.3 pg (27.0-32.0); MCHC 34.5 g/dL (32.0-37.0); MCV 102.2 fL (80.0-97.0); Mean Platelet Volume 12.1 fL (9.5-12.2); Monocytes # (A) 0.21 10*3/uL (0.20-1.00); Monocytes % (A) 4.9 %; Neutrophils # (A) 3.62 10*3/uL (1.80-7.70); Neutrophils % (A) 85.3 %; RBC 3.57 10*6/uL (4.10-5.20); RDW 13.2 % (11.5-14.5); WBC 4.25 10*3/uL (4.50-10.00)
[2024-07-19 20:30] LABS: AST 96 U/L (14-36); African American GFR (CKD) 82 (>60 ml/min/1.73 sqM); Albumin 3.2 g/dL (3.5-5.0); Alkaline Phosphatase 147 U/L (38-126); Amylase 38 U/L (30-110); Anion Gap 13 mmol/L; Bilirubin, Conjugated 5.5 mg/dL (0.0-0.3); Bilirubin, Delta 1.4 mg/dL (0.0-0.2); Bilirubin,Unconjugated 6.5 mg/dL (0.0-1.1); Blood Urea Nitrogen 18 mg/dL (7-17); Calcium 8.8 mg/dL (8.4-10.2); Carbon Dioxide 21 mmol/L (22-30); Chloride 102 mmol/L (98-107); Glucose 106 mg/dL (74-99); Lipase 28 U/L (23-300); Non-African American GFR(CKD) 71 (>60 ml/min/1.73 sqM); Sodium 136 mmol/L (137-145); Total Bilirubin 13.4 mg/dL (0.2-1.3); Total Protein 8.1 g/dL (6.3-8.2)
[2024-07-19 20:34] LABS: INR 1.4 (<1.2); Partial Thromboplastin Time 27.9 sec (22.0-30.0); Prothrombin Time 14.3 sec (10.0-12.5)
[2024-07-19 20:40] LABS: ALT 44 U/L (4-34)
[2024-07-19] MEDS: POTASSIUM CHLORIDE ER 20 MEQ TAB.ER PO STA (21:05)
[2024-07-19] MEDS: POTASSIUM CHLORIDE 20 MEQ in WATER FOR INJECTION 1 100ML.BAG IVPB STA (21:06)
--- NOTE | 2024-07-19 21:07 | CT ---
EXAMINATION TYPE: CT abdomen pelvis w con DATE OF EXAM: 07/19/2024 8:49 PM COMPARISON: Multiple prior CT abdomen/pelvis studies, most recently dated 10/01/2023. CLINICAL INDICATION: Female, 58 years old with history of abdominal pain and distention; pt c/o abdom inal distension x1week, nausea, voimting and diarrhea that started yesterday. TECHNIQUE: Axial CT abdomen pelvis w con;Sagittal and coronal reformats were created on a separate w orkstation. Contrast used:100ml mL of Isovue 300 with IV Contrast, (none if empty) Oral contrast used: without Oral Contrast (none if empty) CT DLP: 1154.4 mGycm, Automated exposure control for dose reduction was used. FINDINGS: LOWER CHEST: Unremarkable ABDOMEN Severe cirrhotic liver morphology. Gallbladder either surgically absent or underdistended. Splenomega ly and large volume diffuse abdominal ascites. Pancreas unremarkable. Symmetric enhancement of the ki dneys bilaterally. No enhancing renal mass or nephrolithiasis. No hydronephrosis. Numerous superior abdominal varices. Calcified atherosclerotic disease of the abdominal aorta without aneurysmal dilatation. Celiac artery and SMA appear grossly patent. Neck Uterus unremarkable. Urinary bladder underdistended. Right renal hernia containing fat and fluid. No evidence of small bowel obstruction. Stomach underdistended but otherwise unremarkable. Wall thickeni ng and hyperenhancement of the distal thoracic esophagus suggesting esophagitis. Large volume diffuse abdominal ascites. No evidence of pneumoperitoneum. Significantly dilated CBD measuring up to 12 mm in diameter. There is intrahepatic bile duct dilatati on. Additionally, wall thickening/hyperenhancement of the CBD and 13 mm distal CBD calculus (coronal series image 55). Intramuscular fluid collection in the right hemipelvis (series 101 image 94). IMPRESSION: 1. Findings compatible with choledocholithiasis with associated upstream bile duct dilatation. Addit ionally, there is wall thickening/hyperenhancement of the CBD which could reflect superimposed infect ious or inflammatory cholangitis. 2. Cirrhotic liver morphology, splenomegaly, numerous abdominal varices and large volume diffuse abd ominal ascites compatible with sequelae of portal hypertension. 3. Additional findings as above. [facility], , 07/19/2024 9:05 PM
[2024-07-19] MEDS: SODIUM CHLORIDE 0.9% 1,000 ML IV STA (21:11)
[2024-07-19 21:49] LABS: Platelet Count 53 10*3/uL (140-440)
[2024-07-19] MEDS: SODIUM CHLORIDE 0.9% 500 ML 500 ML IV ONE (22:17)
[2024-07-19 22:30] VITALS: TEMP 98.5
[2024-07-19] MEDS: metroNIDAZOLE-NS PMX 500 MG in SALINE 1 100ML.BAG IVPB STA (23:21)
[2024-07-19] MEDS: cefTRIAXone IN SWFI 1,000 MG/10 ML SYRINGE IVP STA ×2 (23:22→23:23)
[2024-07-19] MEDS: CALCIUM CARBONATE 500 MG CHEWABLE PO STA (23:45)
[2024-07-19] MEDS: FAMOTIDINE 20 MG TAB PO STA (23:46)
[2024-07-19] MEDS: PIPERACILLIN-TAZOBACTAM 3.375 GM in SODIUM CHLORIDE 0.9% 100 ML IVPB SCH (23:48)
[2024-07-20] MEDS: NICOTINE 21MG/24HR PATCH TRANSDERM STA (00:14)
[2024-07-20 00:20] VITALS: BP 102/64; PULSE 105; RESP 18
== END 2024-07-20 00:42 | disposition other institution (70) ==
LOC: EC 19:10
DX: K80.30 Calculus of bile duct with cholangitis, unspecified, without obstruction (principal); F17.200 Nicotine dependence, unspecified, uncomplicated
CPT/HCPCS: 36415; 93005; 80053; 82150; 82248; 83605; 83690; 85025; 85610; 85730; 87040; 74177; 99285; 99406; 96365; 96367; 96366; 96375; 96376; J2543; J3480; J2405; J0696; J1171; Q9967; J1836; 96368

== ENCOUNTER 2024-08-11 10:41 | Emergency (ER) | payer MEDICARE, OTHER ==
--- NOTE | 2024-08-11 11:06 | ED ---
Abdominal Pain HPI - General Chief Complaint: Abdominal Pain Stated Complaint: Abdominal Pain Time Seen by Provider: 08/11/24 10:48 Source: patient, RN notes reviewed Mode of arrival: ambulatory Limitations: no limitations - History of Present Illness Initial Comments: This is a 58 year old female who presents to the emergency department for abdominal pain. Patient was evaluated here here in our emergency department last month for abdominal pain. We did not have GI coverage at that time and she was transferred to [facility]. States that she underwent many tests there and was found to have a stone lodged in her bile duct. She went to [facility] from [facility] and states that she left AMA from their facility yesterday. They had plan on doing an ERCP to treat the stones, however they kept her n.p.o. and states that because she was hungry she ended up signing herself out AMA. She returns here today, as she states that she needs to go through with the procedure due to her abdominal pain. MD Complaint: abdominal pain - Related Data Home Medications Medication Instructions Recorded Confirmed HYDROmorphone [Dilaudid] 2 mg PO QID 09/06/19 08/12/24 Hydrocodone/Acetaminophen [Jadwin 1 tab PO QID 09/06/19 08/12/24 10-325] Furosemide [Lasix] 40 mg PO DAILY 08/12/24 08/12/24 Allergies Allergy/AdvReac Type Severity Reaction Status Date / Time No Known Allergies Allergy Verified 08/12/24 09:55 Review of Systems ROS Statement: Those systems with pertinent positive or pertinent negative responses have been documented in the HPI. ROS Other: All systems not noted in ROS Statement are negative. Past Medical History Past Medical History: Cancer, COPD, GERD/Reflux, GI Bleed, Hearing Disorder / Deafness, Liver Disease Additional Past Medical History / Comment(s): Hepatitis C, intractable ascities with multiple paracentesis, cirrhosis, peritonitis, pancytopenia, vertigo once; multiple upper GI bleeds, esophageal varicies/esophageal banding, left breast cancer had chemo last on 09-12-16-did not tolerate-completed only 3 cycles-then it was stopped/received radiation treatments/pt states she did not follow up and so did not have surgery lt ear deafness, R ear NIGHTMUTE, occasional R leg edema. History of Any Multi-Drug Resistant Organisms: None Reported Past Surgical History: Adenoidectomy, Breast Surgery, Tonsillectomy Additional Past Surgical History / Comment(s): Multiple paracentesises, EGDs, esophageal banding, right chest mediport since removed, l breast bx., Past Anesthesia/Blood Transfusion Reactions: No Reported Reaction Additional Past Anesthesia/Blood Transfusion Reaction / Comment(s): blood transfusions- no reaction Past Psychological History: Anxiety Smoking Status: Current every day smoker Past Alcohol Use History: None Reported Past Drug Use History: None Reported - Past Family History Mother Family Medical History: Cancer Additional Family Medical History / Comment(s): of lung ca at the age of 59yrs. She was a smoker. Father Family Medical History: Myocardial Infarction (MT) Additional Family Medical History / Comment(s): from 2nd heart attack at the age of 59yrs. General Exam Limitations: no limitations General appearance: alert, in no apparent distress Head exam: Present: atraumatic, normocephalic, normal inspection Respiratory exam: Present: normal lung sounds bilaterally. Absent: respiratory distress, wheezes, rales, rhonchi, stridor Cardiovascular Exam: Present: regular rate, normal rhythm GI/Abdominal exam: Present: soft, tenderness (Epigastric). Absent: distended Neurological exam: Present: alert, oriented X3, CN II-XII intact Psychiatric exam: Present: normal affect, normal mood Course Vital Signs 08/11/24 08/11/24 08/11/24 10:44 12:46 15:11 Temperature 97.8 F 97.8 F 97.8 F Pulse Rate 108 H 102 H 98 Respiratory 20 16 18 Rate Blood Pressure 134/79 131/89 130/69 O2 Sat by Pulse 99 98 98 Oximetry 08/11/24 08/11/24 08/11/24 16:02 18:46 23:30 Temperature 97.1 F L 97.9 F Pulse Rate 78 99 78 Respiratory 18 18 18 Rate Blood Pressure 92/78 128/60 115/56 O2 Sat by Pulse 98 97 97 Oximetry 08/12/24 08/12/24 08/12/24 00:09 05:00 07:58 Temperature Pulse Rate 98 79 81 Respiratory 18 18 16 Rate Blood Pressure 112/58 121/70 120/79 O2 Sat by Pulse 98 98 98 Oximetry 08/12/24 08/12/24 08/12/24 08:59 11:30 12:35 Temperature 98.0 F Pulse Rate 80 78 79 Respiratory 16 16 18 Rate Blood Pressure 122/68 128/51 120/79 O2 Sat by Pulse 99 98 99 Oximetry 08/12/24 08/12/24 08/12/24 16:14 17:16 18:03 Temperature 98.1 F Pulse Rate 88 79 85 Respiratory 18 16 16 Rate Blood Pressure 114/56 108/79 113/73 O2 Sat by Pulse 98 98 98 Oximetry 08/12/24 08/12/24 18:50 22:33 Temperature 98.2 F Pulse Rate 92 78 Respiratory 16 18 Rate Blood Pressure 119/76 121/74 O2 Sat by Pulse 94 L 96 Oximetry Medical Decision Making - Medical Decision Making This is a 58 year old female who presents to the emergency department for abdominal pain. Was pt. sent in by a medical professional or institution? @ -No Did you speak to anyone other than the patient for history? @ -No Did you review nursing and triage notes? @ -Yes, and I agree, it is accurate with regards to the patient's symptoms. Were old charts reviewed? @ -No Differential Diagnosis? @ -Differential Abdominal Pain Women: Appendicitis, Cholecystitis, diverticulosis, ischemic bowel, pancreatitis, hepatitis, UTI, gastroenteritis, AAA, incarcerated hernia, bowel obstruction, constipation, inflammatory bowel, hepatitis, peptic ulcer disease, splenic infarction, perforated viscus, vulvitis, ovarian torsion, PID, kidney stone, placenta abruption, this is not meant to be an all-inclusive list EKG interpreted by me (3pts min.)? @ -Not obtained X-rays interpreted by me (1pt min.)? @ -Not obtained CT interpreted by me (1pt min.)? @ -Not obtained U/S interpreted by me (1pt. min.)? @ -Gallbladder ultrasound obtained. My interpretation identifies CBD dilation. What testing was considered but not performed? (CT, X-rays, U/S, labs)? Why? @ -None What meds were considered but not given? Why? @ -None Did you discuss the management of the patient with other professionals? @ -Yes, Dr. Albert, who accepts the patient for transfer to [facility]. Did you reconcile home meds? @ -No Was smoking cessation discussed for >3mins.? @ -I discussed smoking cessation for greater than 3 minutes. The risk of smoking were discussed with the patient including but not limited to risks of cancer, stroke, coronary artery disease and COPD. Also discussed with patient were multiple methods of quitting smoking. Lastly we discussed the financial cost of smoking. Was critical care preformed (if so, how long)? @ -No Were there social determinants of health that impacted care today? How? (Homelessness, low income, unemployed, alcoholism, drug addiction, trans portation, low edu. Level, literacy, decrease access to med. care, fpc, rehab)? @ -No Was there de-escalation of care discussed even if they declined? (Discuss DNR or withdrawal of care, Hospice)? @ -No What co-morbidities impacted this encounter? (DM, HTN, Smoking, COPD, CAD, Cancer, CVA, Hep., AIDS, mental health diagnosis, sleep apnea, morbid obesity)? @ -Cirrhosis, smoking Was patient admitted / discharged? @ -Transferred. Lab work demonstrates leukopenia with a white blood cell count of 1.56. Neutrophils critically low at 0.47. Hemoglobin 9.1. Lactic acid 3.1 and lipase 1198. Gallbladder ultrasound demonstrates a dilated CBD of 1.3 cm, cirrhosis, and ascites. Patient advised that she was supposed to have the ERCP at [facility], but left AMA as she did not want to continue being n.p.o. H owever, states that she would like to go back, as she cannot take the pain associated with it anymore. We do not have GI coverage available at our facility and patient also necessitates a higher level of care due to her severe underlying cirrhosis. Case discussed with Dr. Albert at [facility], who accepted patient for transfer back to their facility. Patient will remain in our emergency department pending bed placement at [facility]. Medicine consulted for medical management in the department pending transfer. Lab work was also repeated the following day and the leukopenia and neutrophil c ount had both worsened, which was communicated to [facility]. Patient transferred to [facility] via EMS in stable condition the next day on 08/12. Undiagnosed new problem with uncertain prognosis? @ -None Drug Therapy requiring intensive monitoring for toxicity (Heparin, Nitro, Insulin, Cardizem)? @ -None Were any procedures done? @ -None Diagnosis/symptom? @ -Choledocholithiasis, pancreatitis Acute, or Chronic, or Acute on Chronic? @ -Acute Uncomplicated (without systemic symptoms) or Complicated (systemic symptoms)? @ -Complicated Side effects of treatment? @ -None Exacerbation, Progression, or Severe Exacerbation] @ -Not applicable Poses a threat to life or bodily function? @ -Yes, can lead to - Lab Data Result diagrams: 08/12/24 14:47 08/12/24 14:47 Lab Results 08/11/24 08/11/24 08/11/24 Range/Units 11:50 11:50 11:50 WBC 1.56 L (4.50-10.00) 10*3/uL RBC 2.61 L (4.10-5.20) 10*6/uL Hgb 9.1 L D (12.0-15.0) g/dL Hct 27.1 L (37.2-46.3) % MCV 103.8 H (80.0-97.0) fL MCH 34.9 H (27.0-32.0) pg MCHC 33.6 (32.0-37.0) g/dL Plt Count 61 L (140-440) 10*3/uL MPV 12.4 H (9.5-12.2) fL Immature Gran % (Auto) 0 % Neutrophils % 30.2 % Lymphocytes % 43.6 % Monocytes % 20.5 % Eosinophils % 5.1 % Basophils % 0.6 % Immature Gran # 0.00 (0.00-0.04) 10*3/uL Neutrophils # 0.47 L* (1.80-7.70) 10*3/uL Lymphocytes # 0.68 L (0.90-5.00) 10*3/uL Monocytes # 0.32 (0.20-1.00) 10*3/uL Eosinophils # 0.08 (0.04-0.35) 10*3/uL Basophils # 0.01 (0.00-0.10) 10*3/uL Manual Slide Review Performed RBC Morphology Sodium 139 (137-145) mmol/L Potassium 3.5 (3.5-5.1) mmol/L Chloride 100 (98-107) mmol/L Carbon Dioxide 25 (22-30) mmol/L Anion Gap 14 mmol/L BUN 22 H (7-17) mg/dL Creatinine 0.90 (0.52-1.04) mg/dL Est GFR (CKD-EPI)AfAm 81 (>60 ml/min/1.73 sqM) Est GFR (CKD-EPI)NonAf 71 (>60 ml/min/1.73 sqM) Glucose 92 (74-99) mg/dL Lactic Ac Sepsis Rflx Plasma Lactic Acid Darrius 3.1 H* (0.7-2.0) mmol/L Calcium 9.0 (8.4-10.2) mg/dL Total Bilirubin 2.3 H (0.2-1.3) mg/dL AST 65 H (14-36) U/L ALT 26 (4-34) U/L Alkaline Phosphatase 123 (38-126) U/L Ammonia 39 H (<30) umol/L Total Protein 8.7 H (6.3-8.2) g/dL Albumin 4.6 (3.5-5.0) g/dL Amylase 94 (30-110) U/L Lipase 1198 H (23-300) U/L 08/11/24 08/11/24 08/11/24 Range/Units 13:28 16:27 17:26 WBC (4.50-10.00) 10*3/uL RBC (4.10-5.20) 10*6/uL Hgb (12.0-15.0) g/dL Hct (37.2-46.3) % MCV (80.0-97.0) fL MCH (27.0-32.0) pg MCHC (32.0-37.0) g/dL Plt Count (140-440) 10*3/uL MPV (9.5-12.2) fL Immature Gran % (Auto) % Neutrophils % % Lymphocytes % % Monocytes % % Eosinophils % % Basophils % % Immature Gran # (0.00-0.04) 10*3/uL Neutrophils # (1.80-7.70) 10*3/uL Lymphocytes # (0.90-5.00) 10*3/uL Monocytes # (0.20-1.00) 10*3/uL Eosinophils # (0.04-0.35) 10*3/uL Basophils # (0.00-0.10) 10*3/uL Manual Slide Review RBC Morphology Sodium (137-145) mmol/L Potassium (3.5-5.1) mmol/L Chloride (98-107) mmol/L Carbon Dioxide (22-30) mmol/L Anion Gap mmol/L BUN (7-17) mg/dL Creatinine (0.52-1.04) mg/dL Est GFR (CKD-EPI)AfAm (>60 ml/min/1.73 sqM) Est GFR (CKD-EPI)NonAf (>60 ml/min/1.73 sqM) Glucose (74-99) mg/dL Lactic Ac Sepsis Rflx Y Y Plasma Lactic Acid Darrius 2.2 H* (0.7-2.0) mmol/L Calcium (8.4-10.2) mg/dL Total Bilirubin (0.2-1.3) mg/dL AST (14-36) U/L ALT (4-34) U/L Alkaline Phosphatase (38-126) U/L Ammonia (<30) umol/L Total Protein (6.3-8.2) g/dL Albumin (3.5-5.0) g/dL Amylase (30-110) U/L Lipase (23-300) U/L 08/11/24 08/11/24 08/12/24 Range/Units 19:58 21:09 05:07 WBC (4.50-10.00) 10*3/uL RBC (4.10-5.20) 10*6/uL Hgb (12.0-15.0) g/dL Hct (37.2-46.3) % MCV (80.0-97.0) fL MCH (27.0-32.0) pg MCHC (32.0-37.0) g/dL Plt Count (140-440) 10*3/uL MPV (9.5-12.2) fL Immature Gran % (Auto) % Neutrophils % % Lymphocytes % % Monocytes % % Eosinophils % % Basophils % % Immature Gran # (0.00-0.04) 10*3/uL Neutrophils # (1.80-7.70) 10*3/uL Lymphocytes # (0.90-5.00) 10*3/uL Monocytes # (0.20-1.00) 10*3/uL Eosinophils # (0.04-0.35) 10*3/uL Basophils # (0.00-0.10) 10*3/uL Manual Slide Review RBC Morphology Sodium (137-145) mmol/L Potassium (3.5-5.1) mmol/L Chloride (98-107) mmol/L Carbon Dioxide (22-30) mmol/L Anion Gap mmol/L BUN (7-17) mg/dL Creatinine (0.52-1.04) mg/dL Est GFR (CKD-EPI)AfAm (>60 ml/min/1.73 sqM) Est GFR (CKD-EPI)NonAf (>60 ml/min/1.73 sqM) Glucose (74-99) mg/dL Lactic Ac Sepsis Rflx Y Plasma Lactic Acid Darrius 2.5 H* 1.2 (0.7-2.0) mmol/L Calcium (8.4-10.2) mg/dL Total Bilirubin (0.2-1.3) mg/dL AST (14-36) U/L ALT (4-34) U/L Alkaline Phosphatase (38-126) U/L Ammonia (<30) umol/L Total Protein (6.3-8.2) g/dL Albumin (3.5-5.0) g/dL Amylase (30-110) U/L Lipase (23-300) U/L 08/12/24/12/29 Range/Units 14:47 14:47 WBC 1.24 L* (4.50-10.00) 10*3/uL RBC 2.49 L (4.10-5.20) 10*6/uL Hgb 8.9 L (12.0-15.0) g/dL Hct 25.9 L (37.2-46.3) % MCV 104.0 H (80.0-97.0) fL MCH 35.7 H (27.0-32.0) pg MCHC 34.4 (32.0-37.0) g/dL Plt Count 50 L (140-440) 10*3/uL MPV 12.5 H (9.5-12.2) fL Immature Gran % (Auto) 0.8 % Neutrophils % 25.8 % Lymphocytes % 46.0 % Monocytes % 22.6 % Eosinophils % 4.0 % Basophils % 0.8 % Immature Gran # 0.01 (0.00-0.04) 10*3/uL Neutrophils # 0.32 L* (1.80-7.70) 10*3/uL Lymphocytes # 0.57 L (0.90-5.00) 10*3/uL Monocytes # 0.28 (0.20-1.00) 10*3/uL Eosinophils # 0.05 (0.04-0.35) 10*3/uL Basophils # 0.01 (0.00-0.10) 10*3/uL Manual Slide Review Performed RBC Morphology Sodium 139 (137-145) mmol/L Potassium 3.6 (3.5-5.1) mmol/L Chloride 104 (98-107) mmol/L Carbon Dioxide 22 (22-30) mmol/L Anion Gap 13 mmol/L BUN 15 (7-17) mg/dL Creatinine 0.69 (0.52-1.04) mg/dL Est GFR (CKD-EPI)AfAm >90 (>60 ml/min/1.73 sqM) Est GFR (CKD-EPI)NonAf >90 (>60 ml/min/1.73 sqM) Glucose 88 (74-99) mg/dL Lactic Ac Sepsis Rflx Plasma Lactic Acid Darrius (0.7-2.0) mmol/L Calcium 8.6 (8.4-10.2) mg/dL Total Bilirubin 1.9 H (0.2-1.3) mg/dL AST 74 H (14-36) U/L ALT 27 (4-34) U/L Alkaline Phosphatase 115 (38-126) U/L Ammonia (<30) umol/L Total Protein 8.0 (6.3-8.2) g/dL Albumin 4.0 (3.5-5.0) g/dL Amylase (30-110) U/L Lipase (23-300) U/L - Radiology Data Radiology results: report reviewed, image reviewed Disposition Clinical Impression: Choledocholithiasis, Cirrhosis, Pancreatitis, Nicotine dependence Disposition: OTHER INSTITUTION NOT DEFINED Referrals: Mark Estrada MD [Primary Care Provider] - 1-2 days - Out of Hospital Transfer - Req. Specs Out of Hospital Transfer - Requested Specifics: Other Non-Acute ([facility])
[2024-08-11] MEDS: HYDROmorphone 1 MG/ML 1 ML SYRINGE IVP STA ×2 (11:40→13:08)
[2024-08-11 12:15] LABS: Basophils # (A) 0.01 10*3/uL (0.00-0.10); Basophils % (A) 0.6 %; Eosinophils # (A) 0.08 10*3/uL (0.04-0.35); Eosinophils % (A) 5.1 %; HCT 27.1 % (37.2-46.3); Lymphocytes # (A) 0.68 10*3/uL (0.90-5.00); Lymphocytes % (A) 43.6 %; MCH 34.9 pg (27.0-32.0); MCHC 33.6 g/dL (32.0-37.0); MCV 103.8 fL (80.0-97.0); Mean Platelet Volume 12.4 fL (9.5-12.2); Monocytes # (A) 0.32 10*3/uL (0.20-1.00); Monocytes % (A) 20.5 %; Neutrophils % (A) 30.2 %; Platelet Count 61 10*3/uL (140-440); RBC 2.61 10*6/uL (4.10-5.20); WBC 1.56 10*3/uL (4.50-10.00)
[2024-08-11 12:22] LABS: ALT 26 U/L (4-34); AST 65 U/L (14-36); African American GFR (CKD) 81 (>60 ml/min/1.73 sqM); Albumin 4.6 g/dL (3.5-5.0); Alkaline Phosphatase 123 U/L (38-126); Amylase 94 U/L (30-110); Anion Gap 14 mmol/L; Blood Urea Nitrogen 22 mg/dL (7-17); Carbon Dioxide 25 mmol/L (22-30); Chloride 100 mmol/L (98-107); Glucose 92 mg/dL (74-99); Lipase 1198 U/L (23-300); Non-African American GFR(CKD) 71 (>60 ml/min/1.73 sqM); Potassium 3.5 mmol/L (3.5-5.1); Sodium 139 mmol/L (137-145); Total Bilirubin 2.3 mg/dL (0.2-1.3); Total Protein 8.7 g/dL (6.3-8.2)
[2024-08-11 12:27] LABS: Neutrophils # (A) 0.47 10*3/uL (1.80-7.70)
[2024-08-11 12:28] LABS: HGB 9.1 g/dL (12.0-15.0)
[2024-08-11] MEDS: LACTATED RINGERS 1,000 ML IV ONE (13:11)
--- NOTE | 2024-08-11 13:13 | US ---
EXAMINATION TYPE: US gallbladder DATE OF EXAM: 08/11/2024 COMPARISON: CT 2024 CLINICAL INDICATION: Female, 58 years old with history of Abdominal pain, pancreatitis, hx of gallsto roxanna; TECHNIQUE: Grayscale and color Doppler imaging of the right upper quadrant was performed. FINDINGS: EXAM MEASUREMENTS: Liver Length: 11.7 cm Gallbladder Wall: n/a CBD: 1.3 cm Right Kidney: 10.8 x 4.5 x 4.3 cm Pancreas: visualized portions wnl, limited by overlying midline bowel gas Liver: nodular contour, increased echogenicity, heterogeneous Gallbladder: not seen with certainty at this time, patient not NPO - ate and drank 1-2 hours before exam Evidence for sonographic Greenberg's sign: yes CBD: visualized portions appear dilated, limited by overlying bowel gas Right Kidney: wnl Right upper quadrant ascites The visualized pancreas is unremarkable. Heterogenous cirrhotic appearance of the liver with increase d echogenicity and surface nodularity. No focal lesion identified. Gallbladder is not seen with certa inty. Reported positive sonographic Greenberg sign. Common bile duct is dilated. The right kidney demons trates no hydronephrosis, shadowing calculus or solid mass. Right upper quadrant ascites demonstrated . IMPRESSION: 1. Dilated common bile duct correlating with recent CT. Correlate with bilirubin levels. Consider fur ther evaluation with MRCP/ERCP. 2. Gallbladder is not definitively identified. 3. Hepatic cirrhosis. 4. Ascites within the right upper quadrant. [facility], , 08/11/2024 1:11 PM
[2024-08-11 13:28] LABS: Lactic Acid, Venous 3.1 mmol/L (0.7-2.0)
[2024-08-11] MEDS ORDERED: ACETAMINOPHEN TAB 325 MG TAB PO PRN (15:28)
[2024-08-11] MEDS ORDERED: ONDANSETRON 4 MG/2 ML VIAL IVP PRN (15:28)
[2024-08-11] MEDS ORDERED: HYDROmorphone 0.5 MG/0.5 ML SYRINGE IVP PRN (15:28)
[2024-08-11] MEDS ORDERED: NALOXONE 0.4 MG/ML 1 ML VIAL IV PRN (15:28)
[2024-08-11] MEDS: NICOTINE 14MG/24HR PATCH TRANSDERM STA (16:30)
[2024-08-11] MEDS: HYDROmorphone 1 MG/ML 1 ML SYRINGE IVP PRN (19:01)
[2024-08-12] MEDS: PANTOPRAZOLE 40 MG/10 ML VIAL IV SCH (08:58)
[2024-08-12] MEDS: FUROSEMIDE 40 MG TAB PO SCH (12:32)
[2024-08-12] MEDS: HYDROcodone/APAP 10-325MG 1 EACH TAB PO SCH (12:32)
[2024-08-12] MEDS ORDERED: HYDROmorphone 2 MG TAB PO PRN (13:00)
[2024-08-12 15:08] LABS: ALT 27 U/L (4-34); African American GFR (CKD) >90 (>60 ml/min/1.73 sqM); Anion Gap 13 mmol/L; Blood Urea Nitrogen 15 mg/dL (7-17); Calcium 8.6 mg/dL (8.4-10.2); Carbon Dioxide 22 mmol/L (22-30); Chloride 104 mmol/L (98-107); Glucose 88 mg/dL (74-99); Non-African American GFR(CKD) >90 (>60 ml/min/1.73 sqM); Sodium 139 mmol/L (137-145); Total Bilirubin 1.9 mg/dL (0.2-1.3)
[2024-08-12 15:09] LABS: AST 74 U/L (14-36); Potassium 3.6 mmol/L (3.5-5.1)
[2024-08-12 15:10] LABS: Alkaline Phosphatase 115 U/L (38-126); Basophils # (A) 0.01 10*3/uL (0.00-0.10); Basophils % (A) 0.8 %; Eosinophils # (A) 0.05 10*3/uL (0.04-0.35); HCT 25.9 % (37.2-46.3); HGB 8.9 g/dL (12.0-15.0); Lymphocytes # (A) 0.57 10*3/uL (0.90-5.00); MCH 35.7 pg (27.0-32.0); MCHC 34.4 g/dL (32.0-37.0); Mean Platelet Volume 12.5 fL (9.5-12.2); Monocytes # (A) 0.28 10*3/uL (0.20-1.00); Monocytes % (A) 22.6 %; Neutrophils % (A) 25.8 %; RBC 2.49 10*6/uL (4.10-5.20); RDW 20.1 % (11.5-14.5)
[2024-08-12 15:18] LABS: Neutrophils # (A) 0.32 10*3/uL (1.80-7.70); WBC 1.24 10*3/uL (4.50-10.00)
[2024-08-12 15:52] LABS: Platelet Count 50 10*3/uL (140-440)
[2024-08-12 22:37] VITALS: BP 121/74; PULSE 78; RESP 18; TEMP 98.2
== END 2024-08-12 22:37 | disposition short-term general hospital (02) ==
LOC: EC 10:41
DX: K80.50 Calculus of bile duct without cholangitis or cholecystitis without obstruction (principal); K74.60 Unspecified cirrhosis of liver; K85.90 Acute pancreatitis without necrosis or infection, unspecified; F17.200 Nicotine dependence, unspecified, uncomplicated
CPT/HCPCS: 99285 ×2; 96374 ×2; 96376 ×4; 96361 ×2; 96375 ×2; 36415; 99406; 80053 ×2; 82140; 82150; 83605 ×2; 83690; 85025 ×2; 76705; J1171 ×2; J2470

== ENCOUNTER 2024-09-03 22:23 | Inpatient (IN) | payer MEDICARE, OTHER ==
[2024-09-03] MEDS: MIDAZOLAM 2 MG/2 ML VIAL IV ONE (23:16)
--- NOTE | 2024-09-03 23:17 | ED ---
General Adult HPI - General Chief complaint: Altered Mental Status Stated complaint: AMS Time Seen by Provider: 09/03/24 22:26 Source: EMS Mode of arrival: EMS Limitations: altered mental status - History of Present Illness Initial comments: Patient is a 58-year-old female past medical history of liver cirrhosis, hepatitis C, alcoholism, presented for altered mental status. History is limited by patient's altered mental status. Patient is yelling and not answering questions. She was transferred from [facility] where she had been sent after being admitted to this hospital. Patient was discharged about 1 week ago during admitted for hepatic encephalopathy. Per EMS report patient was at baseline until about 2 PM today. At that point she began acting confused. Patient has not had any falls or head injuries. - Related Data Home Medications Medication Instructions Recorded Confirmed Thiamine [Vitamin B-1] 100 mg PO DAILY 08/18/24 08/18/24 Previous Rx's Medication Instructions Recorded Folic Acid 1 mg PO DAILY #30 tab 08/26/24 Allergies Allergy/AdvReac Type Severity Reaction Status Date / Time No Known Allergies Allergy Verified 08/18/24 10:59 Review of Systems ROS Statement: Those systems with pertinent positive or pertinent negative responses have been documented in the HPI. ROS Other: All systems not noted in ROS Statement are negative. Limitations: ROS unobtainable due to patients medical condition Past Medical History Past Medical History: Cancer, COPD, GERD/Reflux, GI Bleed, Hearing Disorder / Deafness, Liver Disease Additional Past Medical History / Comment(s): Hepatitis C, intractable ascities with multiple paracentesis, cirrhosis, peritonitis, pancytopenia, vertigo once; multiple upper GI bleeds, esophageal varicies/esophageal banding, left breast cancer had chemo last on 09-12-16-did not tolerate-completed only 3 cycles-then it was stopped/received radiation treatments/pt states she did not follow up and so did not have surgery lt ear deafness, R ear [place] [place], occasional R leg edema. History of Any Multi-Drug Resistant Organisms: None Reported Past Surgical History: Adenoidectomy, Breast Surgery, Tonsillectomy Additional Past Surgical History / Comment(s): Multiple paracentesises, EGDs, esophageal banding, right chest mediport since removed, l breast bx., Past Anesthesia/Blood Transfusion Reactions: No Reported Reaction Additional Past Anesthesia/Blood Transfusion Reaction / Comment(s): blood transfusions- no reaction Past Psychological History: Anxiety Additional Psychological History / Comment(s): Patient lives with her son. She is currently on disability. She gets to [facility] or her daughters boyfriend. Smoking Status: Current every day smoker Past Alcohol Use History: None Reported Additional Past Alcohol Use History / Comment(s): Patient started smoking at age 14. She was a ppd smoker but cut back to one to 1-3 cigarettes per day in 2017. No history of alcohol abuse. Past Drug Use History: None Reported - Past Family History Mother Family Medical History: Cancer Additional Family Medical History / Comment(s): of lung ca at the age of 59yrs. She was a smoker. Father Family Medical History: Myocardial Infarction ([place]) Additional Family Medical History / Comment(s): from 2nd heart attack at the age of 59yrs. General Exam - General Exam Comments Initial Comments: PE: CONSTITUTIONAL: [no apparent distress, chronically ill-appearing, nontoxic SKIN: Warm, dry, no jaundice, hives or petechiae EYES: Pupils are equally round, extraocular movements intact without nystagmus, clear conjunctiva, non-icteric sclera HENT: Normocephalic, atraumatic, exquisitely dry, mucus membranes, dry cracked lips oropharynx clear without exudates NECK: , Full range of motion, normal appearance PULMONARY: Clear to auscultation without wheezes, rhonchi, or rales, normal excursion, no accessory muscle use and no stridor CARDIOVASCULAR: Regular rate, rhythm, normal S1 and S2. No appreciated murmurs, rubs or gallops. Strong radial pulses with intact distal perfusion. No lower extremity edema GASTROINTESTINAL: Soft, active bowel sounds throughout, non-tender, non- distended, no palpable masses, no rebound or guarding. No hepatosplenomegaly MUSCULOSKELETAL: Extremities have no gross deformity, no edema, redness, or swelling. No calf swelling NEUROLOGIC:_a/o x 1, GCS 14, fused mentation and speech, though speech is clear, no focal neurologic deficits. Moves all extremities x 4 without motor or sensory deficit PSYCHIATRIC: Anxious and agitated, tearful mood and affect, thought process is confused Limitations: altered mental status Course Vital Signs 09/03/24 09/03/24 09/04/24 22:30 23:49 01:05 Temperature 97.5 F L Pulse Rate 130 H 81 92 Respiratory 20 19 19 Rate Blood Pressure 156/95 95/64 120/66 O2 Sat by Pulse 100 98 100 Oximetry 09/04/24 09/04/24 02:10 03:35 Temperature 97.4 F L Pulse Rate 101 H 96 Respiratory 18 23 Rate Blood Pressure 142/78 132/76 O2 Sat by Pulse 99 100 Oximetry EKG Findings - EKG Comments: EKG Findings:: Sinus rhythm, rate 81 bpm intervals within acceptable limits, borderline left axis deviation T wave inversion lead III, no significant elevations or depressions no ischemic changes Medical Decision Making - Medical Decision Making Reviewed neurology consultation note from 08/19/2024 when patient was recently mid to the hospital. Per that note it was thought patient's altered mental status at that time was secondary to hepatic encephalopathy. Patient was reportedly ANO x 3 during that evaluation. Was pt. sent in by a medical professional or institution (, PA, GUEST EXPERIENCE MANAGER, urgent care, hospital, or alf...) When possible be specific @ -No Did you speak to anyone other than the patient for history (EMS, parent, family, police, friend...)? What history was obtained from this source @ -No Did you review nursing and triage notes (agree or disagree)? Why? @ -I reviewed nursing and triage notes Were old charts reviewed (outside hosp., previous admission, EMS record, old EKG, old radiological studies, urgent care reports/EKG's, alf records)? Report findings @ -Medical records reviewed-Reviewed discharge summary from patient's recent visit on 08/08/14, discharged on 08/27/2024, reports the patient had been admitted for altered mental status, agitation and confusion, was ultimately diagnosed with hepatic encephalopathy, per review of progress notes from 08/25/2024, patient was noted to be lethargic, pale and chronically ill-appearing On review of patient's labs, her ammonia level on admission on 08/18/2024 was 32 Differential Diagnosis (chest pain, altered mental status, abdominal pain women, abdominal pain men, vaginal bleeding, weakness, fever, dyspnea, syncope, headache, dizziness, GI bleed, back pain, seizure, CVA, palpatations, mental health, musculoskeletal)? Differential Altered Mental Status: Hypoglycemia, DKA, hypercapnia, ETOH, overdose, CO poisoning, trauma, myxedema coma, HTN encephalopathy, infection, encephalitis, psychosis, intercranial hemorrhage, hepatic encephalopathy, meningitis, CVA, this is not meant to be an all-inclusive list EKG interpreted by me (3pts min.). @ -As above X-rays interpreted by me (1pt min.). @ - personally reviewed chest x-ray see no evidence of cardiomegaly, consolidations or pleural effusions CT interpreted by me (1pt min.). @ -Reviewed CT brain I see no evidence of hemorrhage or mass effect I agree with radiologist interpretation U/S interpreted by me (1pt. min.). @ -None done What testing was considered but not performed or refused? (CT, X-rays, U/S, labs)? Why? @ -None What meds were considered but not given or refused? Why? @ -None Did you discuss the management of the patient with other professionals (professionals i.e. , PA, GUEST EXPERIENCE MANAGER, lab, RT, psych nurse, social media director, private eye, teacher, loan officer, case maker)? Give summary @ -No Was smoking cessation discussed for >3mins.? @ -No Was critical care preformed (if so, how long)? @ -No Were there social determinants of health that impacted care today? How? (Homelessness, low income, unemployed, alcoholism, drug addiction, transportation, low edu. Level, literacy, decrease access to med. care, fpc, rehab)? @ -No Was there de-escalation of care discussed even if they declined (Discuss DNR or withdrawal of care, Hospice)? @ -No What co-morbidities impacted this encounter? (DM, HTN, Smoking, COPD, CAD, Cancer, CVA, ARF, Chemo, Hep., AIDS, mental health diagnosis, sleep apnea, morbid obesity)? @Alcoholic liver cirrhosis, hepatitis C Was patient admitted / discharged? Hospital course, mention meds given and route, prescriptions, significant lab abnormalities, going to OR and other pertinent info. @ -Hospital course patient is a 58-year-old female, past medical history of cirrhosis of the liver, hepatitis C, hepatic encephalopathy on lactulose presenting today for altered mental status from [facility]. On assessment patient is agitated, saying she hurts when she is touched, asking for her mother, oriented to self only. Due to agitation, patient was given 2 mg IV versed. Zyprexa was considered as well however this was ultimately not given since patient became calm and drowsy after versed administration. Exam was significant for no focal neurologic deficits, exquisitely dry mucous membranes, lungs clear to auscultation and a soft nontender abdomen. Will obtain CT brain, ammonia level, CBC, CMP, troponin, EKG, urinalysis. Patient will be given 1 L IV fluids due to appearing very dehydrated. Labs significant for ammonia 217. Ordered 40 mg lactulose, will admit for hepatic encephalopathy. On reassessment patient awakens to voice but remains drowsy and confused. Home lactulose ordered in addition to additional home medications with exception of [place] as this could worsen patient's encephalopathy. Case reviewed with Dr. Lyons, [facility] who kindly accepted patient for admission Undiagnosed new problem with uncertain prognosis? @ -No Drug Therapy requiring intensive monitoring for toxicity (Heparin, Nitro, Insulin, Cardizem)? @ -No Were any procedures done? @ -No Diagnosis/symptom? @ -Hepatic encephalopathy Acute, or Chronic, or Acute on Chronic? @ -acute Uncomplicated (without systemic symptoms) or Complicated (systemic symptoms)? complicated Side effects of treatment? @ -No Exacerbation, Progression, or Severe Exacerbation? @ -No Poses a threat to life or bodily function? How? (Chest pain, [place], [place], pneumonia, PE, COPD, DKA, ARF, appy, cholecystitis, CVA, Diverticulitis, Homicidal, Suicidal, threat to staff... and all critical care pts) @ Yes - Lab Data Result diagrams: 09/03/24 23:06 09/03/24 23:06 Lab Results 09/03/24 09/03/24 09/03/24 Range/Units 23:06 23:06 23:06 WBC 1.85 L (4.50-10.00) 10*3/uL RBC 2.72 L (4.10-5.20) 10*6/uL Hgb 9.7 L (12.0-15.0) g/dL Hct 28.7 L (37.2-46.3) % MCV 105.5 H (80.0-97.0) fL MCH 35.7 H (27.0-32.0) pg MCHC 33.8 (32.0-37.0) g/dL Plt Count 58 L (140-440) 10*3/uL MPV 11.7 (9.5-12.2) fL Immature Gran % (Auto) 0.5 % Neutrophils % 46.6 % Lymphocytes % 35.7 % Monocytes % 13.5 % Eosinophils % 3.2 % Basophils % 0.5 % Immature Gran # 0.01 (0.00-0.04) 10*3/uL Neutrophils # 0.86 L (1.80-7.70) 10*3/uL Lymphocytes # 0.66 L (0.90-5.00) 10*3/uL Monocytes # 0.25 (0.20-1.00) 10*3/uL Eosinophils # 0.06 (0.04-0.35) 10*3/uL Basophils # 0.01 (0.00-0.10) 10*3/uL PT 13.0 H (10.0-12.5) sec INR 1.2 H (<1.2) APTT 24.3 (22.0-30.0) sec Sodium 143 (137-145) mmol/L Potassium 3.8 (3.5-5.1) mmol/L Chloride 113 H (98-107) mmol/L Carbon Dioxide 22 (22-30) mmol/L Anion Gap 8 mmol/L BUN 20 H (7-17) mg/dL Creatinine 0.67 (0.52-1.04) mg/dL Est GFR (CKD-EPI)AfAm >90 (>60 ml/min/1.73 sqM) Est GFR (CKD-EPI)NonAf >90 (>60 ml/min/1.73 sqM) Glucose 134 H (74-99) mg/dL POC Glucose (mg/dL) (70-110) mg/dL POC Glu Reconnaissance Crewmember ID Calcium 9.7 (8.4-10.2) mg/dL Total Bilirubin 1.7 H (0.2-1.3) mg/dL AST 37 H (14-36) U/L ALT 25 (4-34) U/L Alkaline Phosphatase 145 H (38-126) U/L Ammonia (<30) umol/L Troponin I (0.000-0.034) ng/mL Total Protein 7.9 (6.3-8.2) g/dL Albumin 3.5 (3.5-5.0) g/dL Urine Color Urine Appearance (Clear) Urine pH (5.0-8.0) Ur Specific [place] (1.001-1.035) Urine Protein (Negative) Urine Glucose (UA) (Negative) Urine Ketones (Negative) Urine Blood (Negative) Urine Nitrite (Negative) Urine Bilirubin (Negative) Urine Urobilinogen (<2.0) mg/dL Ur Leukocyte Esterase (Negative) Urine RBC (0-5) /hpf Urine WBC (0-5) /hpf Ur Squamous Epith Cells (0-4) /hpf Amorphous Sediment (None) /hpf Urine Bacteria (None) /hpf Hyaline Casts (0-2) /lpf 09/03/24 09/03/24 09/03/24 Range/Units 23:06 23:06 23:09 WBC (4.50-10.00) 10*3/uL RBC (4.10-5.20) 10*6/uL Hgb (12.0-15.0) g/dL Hct (37.2-46.3) % MCV (80.0-97.0) fL MCH (27.0-32.0) pg MCHC (32.0-37.0) g/dL Plt Count (140-440) 10*3/uL MPV (9.5-12.2) fL Immature Gran % (Auto) % Neutrophils % % Lymphocytes % % Monocytes % % Eosinophils % % Basophils % % Immature Gran # (0.00-0.04) 10*3/uL Neutrophils # (1.80-7.70) 10*3/uL Lymphocytes # (0.90-5.00) 10*3/uL Monocytes # (0.20-1.00) 10*3/uL Eosinophils # (0.04-0.35) 10*3/uL Basophils # (0.00-0.10) 10*3/uL PT (10.0-12.5) sec INR (<1.2) APTT (22.0-30.0) sec Sodium (137-145) mmol/L Potassium (3.5-5.1) mmol/L Chloride (98-107) mmol/L Carbon Dioxide (22-30) mmol/L Anion Gap mmol/L BUN (7-17) mg/dL Creatinine (0.52-1.04) mg/dL Est GFR (CKD-EPI)AfAm (>60 ml/min/1.73 sqM) Est GFR (CKD-EPI)NonAf (>60 ml/min/1.73 sqM) Glucose (74-99) mg/dL POC Glucose (mg/dL) (70-110) mg/dL POC Glu Reconnaissance Crewmember ID Calcium (8.4-10.2) mg/dL Total Bilirubin (0.2-1.3) mg/dL AST (14-36) U/L ALT (4-34) U/L Alkaline Phosphatase (38-126) U/L Ammonia 217 H (<30) umol/L Troponin I <0.012 (0.000-0.034) ng/mL Total Protein (6.3-8.2) g/dL Albumin (3.5-5.0) g/dL Urine Color Colorless Urine Appearance Clear (Clear) Urine pH 7.0 (5.0-8.0) Ur Specific [place] 1.010 (1.001-1.035) Urine Protein Negative (Negative) Urine Glucose (UA) Negative (Negative) Urine Ketones Negative (Negative) Urine Blood Trace H (Negative) Urine Nitrite Negative (Negative) Urine Bilirubin Negative (Negative) Urine Urobilinogen <2.0 (<2.0) mg/dL Ur Leukocyte Esterase Negative (Negative) Urine RBC 2 (0-5) /hpf Urine WBC 3 (0-5) /hpf Ur Squamous Epith Cells 2 (0-4) /hpf Amorphous Sediment Rare H (None) /hpf Urine Bacteria Occasional H (None) /hpf Hyaline Casts 1 (0-2) /lpf 09/03/ Range/Units 23:36 WBC (4.50-10.00) 10*3/uL RBC (4.10-5.20) 10*6/uL Hgb (12.0-15.0) g/dL Hct (37.2-46.3) % MCV (80.0-97.0) fL MCH (27.0-32.0) pg MCHC (32.0-37.0) g/dL Plt Count (140-440) 10*3/uL MPV (9.5-12.2) fL Immature Gran % (Auto) % Neutrophils % % Lymphocytes % % Monocytes % % Eosinophils % % Basophils % % Immature Gran # (0.00-0.04) 10*3/uL Neutrophils # (1.80-7.70) 10*3/uL Lymphocytes # (0.90-5.00) 10*3/uL Monocytes # (0.20-1.00) 10*3/uL Eosinophils # (0.04-0.35) 10*3/uL Basophils # (0.00-0.10) 10*3/uL PT (10.0-12.5) sec INR (<1.2) APTT (22.0-30.0) sec Sodium (137-145) mmol/L Potassium (3.5-5.1) mmol/L Chloride (98-107) mmol/L Carbon Dioxide (22-30) mmol/L Anion Gap mmol/L BUN (7-17) mg/dL Creatinine (0.52-1.04) mg/dL Est GFR (CKD-EPI)AfAm (>60 ml/min/1.73 sqM) Est GFR (CKD-EPI)NonAf (>60 ml/min/1.73 sqM) Glucose (74-99) mg/dL POC Glucose (mg/dL) 126 H (70-110) mg/dL POC Glu Reconnaissance Crewmember WHITLEY Brown Calcium (8.4-10.2) mg/dL Total Bilirubin (0.2-1.3) mg/dL AST (14-36) U/L ALT (4-34) U/L Alkaline Phosphatase (38-126) U/L Ammonia (<30) umol/L Troponin I (0.000-0.034) ng/mL Total Protein (6.3-8.2) g/dL Albumin (3.5-5.0) g/dL Urine Color Urine Appearance (Clear) Urine pH (5.0-8.0) Ur Specific [place] (1.001-1.035) Urine Protein (Negative) Urine Glucose (UA) (Negative) Urine Ketones (Negative) Urine Blood (Negative) Urine Nitrite (Negative) Urine Bilirubin (Negative) Urine Urobilinogen (<2.0) mg/dL Ur Leukocyte Esterase (Negative) Urine RBC (0-5) /hpf Urine WBC (0-5) /hpf Ur Squamous Epith Cells (0-4) /hpf Amorphous Sediment (None) /hpf Urine Bacteria (None) /hpf Hyaline Casts (0-2) /lpf Disposition Clinical Impression: Hepatic encephalopathy Disposition: ADMITTED IP TO THIS HOSP Condition: Stable
[2024-09-03] MEDS: SODIUM CHLORIDE 0.9% 1,000 ML IV ONE (23:29)
[2024-09-03 23:36] LABS: Glucose,Whole Blood 126 mg/dL (70-110)
[2024-09-03 23:43] LABS: Basophils # (A) 0.01 10*3/uL (0.00-0.10); Basophils % (A) 0.5 %; Eosinophils # (A) 0.06 10*3/uL (0.04-0.35); Eosinophils % (A) 3.2 %; HCT 28.7 % (37.2-46.3); HGB 9.7 g/dL (12.0-15.0); Lymphocytes # (A) 0.66 10*3/uL (0.90-5.00); Lymphocytes % (A) 35.7 %; MCH 35.7 pg (27.0-32.0); MCHC 33.8 g/dL (32.0-37.0); MCV 105.5 fL (80.0-97.0); Mean Platelet Volume 11.7 fL (9.5-12.2); Monocytes # (A) 0.25 10*3/uL (0.20-1.00); Monocytes % (A) 13.5 %; Neutrophils # (A) 0.86 10*3/uL (1.80-7.70); Neutrophils % (A) 46.6 %; RBC 2.72 10*6/uL (4.10-5.20); RDW 16.7 % (11.5-14.5); WBC 1.85 10*3/uL (4.50-10.00)
[2024-09-03 23:54] LABS: INR 1.2 (<1.2); Partial Thromboplastin Time 24.3 sec (22.0-30.0)
[2024-09-03] MEDS: OLANZapine 10 MG VIAL IM STA (23:54)
[2024-09-03 23:55] LABS: Platelet Count 58 10*3/uL (140-440)
[2024-09-04 00:03] LABS: ALT 25 U/L (4-34); AST 37 U/L (14-36); African American GFR (CKD) >90 (>60 ml/min/1.73 sqM); Albumin 3.5 g/dL (3.5-5.0); Alkaline Phosphatase 145 U/L (38-126); Anion Gap 8 mmol/L; Blood Urea Nitrogen 20 mg/dL (7-17); Calcium 9.7 mg/dL (8.4-10.2); Carbon Dioxide 22 mmol/L (22-30); Chloride 113 mmol/L (98-107); Glucose 134 mg/dL (74-99); Non-African American GFR(CKD) >90 (>60 ml/min/1.73 sqM); Potassium 3.8 mmol/L (3.5-5.1); Sodium 143 mmol/L (137-145); Total Bilirubin 1.7 mg/dL (0.2-1.3); Total Protein 7.9 g/dL (6.3-8.2)
[2024-09-04 00:20] LABS: Appearance,Urine Clear (Clear); Bilirubin,Urine Negative (Negative); Color,Urine Colorless; Glucose,Urine (UA) Negative (Negative); Ketones,Urine Negative (Negative); Protein,Urine Negative (Negative)
[2024-09-04 00:21] LABS: Amorphous Sediment,Urine Rare /hpf; Bacteria,Urine Occasional /hpf; Blood,Urine Trace (Negative); Hyaline Casts,Urine 1 /lpf (0-2); Leukocyte Esterase,Urine Negative (Negative); Nitrite,Urine Negative (Negative); RBC,Urine 2 /hpf (0-5); Squamous Epithelial Cell,Urine 2 /hpf (0-4); Urobilinogen,Urine <2.0 mg/dL (<2.0); WBC,Urine 3 /hpf (0-5)
--- NOTE | 2024-09-04 02:10 | CT ---
EXAM: CT Head Without Intravenous Contrast CLINICAL HISTORY: ITS.REASON CT Reason: Altered mental status TECHNIQUE: Axial computed tomography images of the head/brain without intravenous contrast. CTDI is 196.8 mGy and DLP is 3251.7 mGy-cm. This CT exam was performed using one or more of the following dose reduction techniques: automated exposure control, adjustment of the mA and/or kV according to patient size, and/or use of iterative reconstruction technique. COMPARISON: No relevant prior studies available. FINDINGS: Brain: No hemorrhage or mass effect. Ventricles: No hydrocephalus. Bones/joints: Unremarkable. Soft tissues: Unremarkable. Sinuses: No air fluid level. Mastoid air cells: Clear. IMPRESSION: No acute hemorrhage, hydrocephalus, or mass effect.
[2024-09-04] MEDS ORDERED: MAG HYDROX/AL HYDROX/SIMETH 30 ML CUP PO PRN (02:50)
[2024-09-04] MEDS ORDERED: ONDANSETRON 4 MG/2 ML VIAL IVP PRN (02:50)
[2024-09-04] MEDS ORDERED: NALOXONE 0.4 MG/ML 1 ML VIAL IV PRN (02:50)
--- NOTE | 2024-09-04 02:53 | XR ---
EXAM: XR Chest, 1 View CLINICAL HISTORY: Altered mental status TECHNIQUE: Frontal view of the chest. COMPARISON: No relevant prior studies available. FINDINGS: Lungs: Unremarkable. No consolidation. Pleural space: Unremarkable. No pneumothorax. Heart: No intracranial hemorrhage, mass-effect or midline shift. No abnormal extra axial fluid. No evidence of acute infarct. Mild periventricular white matter hypodensities are most consistent with chronic microangiopathy. No cardiomegaly. Mediastinum: Unremarkable. Normal mediastinal contour. Bones/joints: No acute fracture. IMPRESSION: No acute intracranial finding.
[2024-09-04] MEDS: LACTULOSE 20 GM/30 ML CUP PO ONE (03:11)
[2024-09-04] MEDS: SODIUM CHLORIDE 0.9% 1,000 ML IV SCH (03:28)
[2024-09-04] MEDS: LORazepam 1 MG/0.5 ML VIAL IV STA (07:21)
[2024-09-04] MEDS ORDERED: PANTOPRAZOLE 40 MG/10 ML VIAL IV SCH (09:00)
[2024-09-04] MEDS: LACTULOSE 20 GM/30 ML CUP PO SCH (09:08)
[2024-09-04] MEDS: FUROSEMIDE 20 MG TAB PO SCH (09:39)
[2024-09-04] MEDS: SPIRONOLACTONE 25 MG TAB PO SCH (09:39)
[2024-09-04] MEDS: PANTOPRAZOLE 40 MG TABLET PO SCH (09:39)
[2024-09-04] MEDS: THIAMINE 100 MG TAB PO SCH (09:39)
[2024-09-04] MEDS: FOLIC ACID 1 MG TAB PO SCH (09:40)
[2024-09-04] MEDS: LACTULOSE 200 GM/300 ML (FROM 1/2 GAL JUG) RECTAL SCH (10:33)
[2024-09-04 11:29] LABS: HCT 29.4 % (37.2-46.3); HGB 9.6 g/dL (12.0-15.0); MCH 36.4 pg (27.0-32.0); MCHC 32.7 g/dL (32.0-37.0); Mean Platelet Volume 12.5 fL (9.5-12.2); RBC 2.64 10*6/uL (4.10-5.20); RDW 16.9 % (11.5-14.5)
[2024-09-04 11:37] LABS: MCV 111.4 fL (80.0-97.0); Platelet Count 53 10*3/uL (140-440); WBC 1.35 10*3/uL (4.50-10.00)
[2024-09-04 11:48] LABS: ALT 25 U/L (4-34); AST 43 U/L (14-36); African American GFR (CKD) >90 (>60 ml/min/1.73 sqM); Albumin 3.1 g/dL (3.5-5.0); Alkaline Phosphatase 104 U/L (38-126); Anion Gap 10 mmol/L; Blood Urea Nitrogen 15 mg/dL (7-17); Calcium 9.6 mg/dL (8.4-10.2); Carbon Dioxide 19 mmol/L (22-30); Chloride 116 mmol/L (98-107); Glucose 104 mg/dL (74-99); Non-African American GFR(CKD) >90 (>60 ml/min/1.73 sqM); Potassium 3.8 mmol/L (3.5-5.1); Sodium 145 mmol/L (137-145); Total Bilirubin 2.1 mg/dL (0.2-1.3); Total Protein 7.2 g/dL (6.3-8.2)
[2024-09-04] MEDS: PANTOPRAZOLE 40 MG/10 ML VIAL IVP SCH (12:05)
[2024-09-04] MEDS: HALOPERIDOL LACTATE 5 MG/ML 1 ML VIAL IVP PRN (12:37)
[2024-09-04 12:53] LABS: Anisocytosis (M) Present; Eosinophils # (M) 0.05 k/uL (0-0.7); Lymphocytes # (M) 0.68 k/uL (1.0-4.8); Monocytes # (M) 0.05 k/uL (0-1.0); Neutrophils # (M) 0.57 k/uL (1.3-7.7); Neutrophils % (M) 42 %; Nucleated Red Blood Cells 0 /100 WBC (0-0); Total Cells Counted 100
[2024-09-04 12:54] LABS: Tear Drop Cells Present
--- NOTE | 2024-09-04 14:00 | P.HPIM ---
History of Present Illness H&P Date: 09/04/24 History of present illness; patient is 58-year-old lady with past medical history significant for hepatitis C, liver cirrhosis, esophageal varices, breast cancer who presented to the ER because of altered mental status. Patient was recently admitted a week ago with similar symptoms at which time she was treated for her hepatic encephalopathy and was discharged. She is currently a resident of [facility], according to EMS, patient was all right till yesterday afternoon around 2 PM when she started acting confused. There was no complaint of any loss of consciousness. There was no complaint of any trauma or fall. There was no evidence of any fever or chills. Because of this confusion, patient was brought back to the ER Initial lab work done in the ER showed WBC 1.85, hemoglobin 9.7, platelet count 58, sodium 143, potassium 3.8, BUN 20, creatinine 0.67, glucose 134, calcium 9.7, bilirubin 1.7, AST 37, ALT 25, ammonia 217 UA negative for infection EKG done in the ER showed heart rate of 81 , no ST segment elevation or depression seen, no T-wave inversions seen. Chest x-ray done in the ERShowed no acute cardiopulmonary process CT head done showed no acute intracranial process Patient admitted to internal medicine service REVIEW OF SYSTEMS: Review of system cannot be obtained as patient is currently obtunded PHYSICAL EXAMINATION: GENERAL: The patient is obtunded, ill looking HEENT: Pupils are round and equally reacting to light. EOMI. No scleral icterus. No conjunctival pallor. Normocephalic, atraumatic. No pharyngeal erythema. No thyromegaly. CARDIOVASCULAR: S1 and S2 present. No murmurs, rubs, or gallops. PULMONARY: Chest is clear to auscultation, no wheezing or crackles. ABDOMEN: Soft, nontender, nondistended, normoactive bowel sounds. No palpable organomegaly. MUSCULOSKELETAL: No joint swelling or deformity. EXTREMITIES: No cyanosis, clubbing, or pedal edema. NEUROLOGICAL: Moving all extremities SKIN: No rashes. Assessment and plan Acute hepatic encephalopathy Hyperammonemia Pancytopenia History of liver cirrhosis History of hepatitis C History of breast cancer Monitor vital signs Monitor CBC Monitor CMP Fall precaution Delirium precautions Ordered lactulose rectally 20 mg every 6 hour, once patient is able to take medication orally we will switch to oral lactulose. Ordered IV Protonix Ordered Haldol for agitation Continue Lasix and Aldactone Resume home meds Patient was recently seen by hematology oncology for pancytopenia, at that time patient had workup done DIC, HIV was negative. Paraproteinemia workup is showing polyclonal elevations in IgG and IgM with M protein of 1.25 g/dL. The elevations in immunoglobulins as well as kappa and lambda light chains are likely related to underlying liver disease. 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 Continue same treatment. Continue with sy mptomatic treatment. Resume home medication. Monitor labs and vitals. DVT and GI prophylaxis. Further recommendations as per clinical course of the patient Dictation was produced using [employer] dictation software. please excuse any grammatical, word or spelling errors. Past Medical History Past Medical History: Cancer, COPD, GERD/Reflux, GI Bleed, Hearing Disorder / Deafness, Liver Disease Additional Past Medical History / Comment(s): Hepatitis C, intractable ascities with multiple paracentesis, cirrhosis, peritonitis, pancytopenia, vertigo once; multiple upper GI bleeds, esophageal varicies/esophageal banding, left breast cancer had chemo last on 09-12-16-did not tolerate-completed only 3 cycles-then it was stopped/received radiation treatments/pt states she did not follow up and so did not have surgery lt ear deafness, R ear [place], occasional R leg edema. History of Any Multi-Drug Resistant Organisms: None Reported Past Surgical History: Adenoidectomy, Breast Surgery, Tonsillectomy Additional Past Surgical History / Comment(s): Multiple paracentesises, EGDs, esophageal banding, right chest mediport since removed, l breast bx., Past Anesthesia/Blood Transfusion Reactions: No Reported Reaction Additional Past Anesthesia/Blood Transfusion Reaction / Comment(s): blood transfusions- no reaction Past Psychological History: Anxiety Additional Psychological History / Comment(s): Patient lives with her son. She is currently on disability. She gets to [employer] by [employer] or her daughters boyfriend. Smoking Status: Current every day smoker Past Alcohol Use History: None Reported Additional Past Alcohol Use History / Comment(s): Patient started smoking at age 14. She was a ppd smoker but cut back to one to 1-3 cigarettes per day in 2017. No history of alcohol abuse. Past Drug Use History: None Reported - Past Family History Mother Family Medical History: Cancer Additional Family Medical History / Comment(s): of lung ca at the age of 59yrs. She was a smoker. Father Family Medical History: Myocardial Infarction ([place]) Additional Family Medical History / Comment(s): from 2nd heart attack at t he age of 59yrs. Medications and Allergies Home Medications Medication Instructions Recorded Confirmed Type Thiamine [Vitamin B-1] 100 mg PO DAILY@0700 08/18/24 09/04/24 History Acetaminophen [Tylenol 8 Hour] 650 mg PO Q6H PRN 09/04/24 09/04/24 History Calcium Carbonate [Tums] 500 mg PO AC-TID@06,11,16 09/04/24 09/04/24 History Folic Acid 0.8 mg PO DAILY@0700 09/04/24 09/04/24 History HYDROcodone/APAP 10-325MG [[place] 1 tab PO Q4HR PRN 09/04/24 09/04/24 History 10-325] Promethazine HCl 12.5 mg PO Q6H PRN 09/04/24 09/04/24 History Allergies Allergy/AdvReac Type Severity Reaction Status Date / Time No Known Allergies Allergy Verified 09/04/24 09:30 Physical Exam Vitals: Vital Signs Temp Pulse Resp BP Pulse Ox 09/04/24 03:35 96 23 132/76 100 09/04/24 02:10 97.4 F L 101 H 18 142/78 99 09/04/24 01:05 92 19 120/66 100 09/03/24 23:49 81 19 95/64 98 09/03/24 22:30 97.5 F L 130 H 20 156/95 100 Intake and Output 09/03/24 09/04/24 09/04/24 22:59 06:59 14:59 Other: Weight 72.575 kg Results CBC & Chem 7: 09/03/24 23:06 09/03/24 23:06 Labs: Abnormal Lab Results - Last 24 Hours (Table) 09/03/24 09/03/24 09/03/24 Range/Units 23:06 23:06 23:06 WBC 1.85 L (4.50-10.00) 10*3/uL RBC 2.72 L (4.10-5.20) 10*6/uL Hgb 9.7 L (12.0-15.0) g/dL Hct 28.7 L (37.2-46.3) % MCV 105.5 H (80.0-97.0) fL MCH 35.7 H (27.0-32.0) pg Plt Count 58 L (140-440) 10*3/uL Neutrophils # 0.86 L (1.80-7.70) 10*3/uL Lymphocytes # 0.66 L (0.90-5.00) 10*3/uL PT 13.0 H (10.0-12.5) sec INR 1.2 H (<1.2) Chloride 113 H (98-107) mmol/L BUN 20 H (7-17) mg/dL Glucose 134 H (74-99) mg/dL POC Glucose (mg/dL) (70-110) mg/dL Total Bilirubin 1.7 H (0.2-1.3) mg/dL AST 37 H (14-36) U/L Alkaline Phosphatase 145 H (38-126) U/L Ammonia (<30) umol/L Urine Blood (Negative) Amorphous Sediment (None) /hpf Urine Bacteria (None) /hpf 09/03/24 09/03/24 09/03/24 Range/Units 23:06 23:09 23:36 WBC (4.50-10.00) 10*3/uL RBC (4.10-5.20) 10*6/uL Hgb (12.0-15.0) g/dL Hct (37.2-46.3) % MCV (80.0-97.0) fL MCH (27.0-32.0) pg Plt Count (140-440) 10*3/uL Neutrophils # (1.80-7.70) 10*3/uL Lymphocytes # (0.90-5.00) 10*3/uL PT (10.0-12.5) sec INR (<1.2) Chloride (98-107) mmol/L BUN (7-17) mg/dL Glucose (74-99) mg/dL POC Glucose (mg/dL) 126 H (70-110) mg/dL Total Bilirubin (0.2-1.3) mg/dL AST (14-36) U/L Alkaline Phosphatase (38-126) U/L Ammonia 217 H (<30) umol/L Urine Blood Trace H (Negative) Amorphous Sediment Rare H (None) /hpf Urine Bacteria Occasional H (None) /hpf
[2024-09-04 18:06] LABS: Glucose,Whole Blood 106 mg/dL (70-110)
[2024-09-05] MEDS: ACETAMINOPHEN IV (For NPO) 1,000 MG in EMPTY BAG 1 BAG IVPB STA (05:27)
[2024-09-05 06:15] LABS: Glucose,Whole Blood 92 mg/dL (70-110)
[2024-09-05 11:12] LABS: Glucose,Whole Blood 208 mg/dL (70-110)
[2024-09-05] MEDS: LACTULOSE 20 GM/30 ML CUP PO SCH (11:57)
[2024-09-05] MEDS: HYDROcodone/APAP 5-325MG 1 EACH TAB PO PRN (11:57)
[2024-09-05 16:28] LABS: Glucose,Whole Blood 109 mg/dL (70-110)
[2024-09-05] MEDS: CALCIUM CARBONATE 500 MG CHEWABLE PO PRN (18:44)
[2024-09-05] MEDS: ALPRAZolam 0.25 MG TAB PO PRN (19:37)
[2024-09-05 20:05] LABS: Glucose,Whole Blood 158 mg/dL (70-110)
--- NOTE | 2024-09-05 22:30 | PN ---
PROGRESS NOTE DATE OF SERVICE: 09/05/2024 CHIEF COMPLAINT: Hepatic encephalopathy. HISTORY OF PRESENT ILLNESS: This lady is becoming little bit more alert. Her ammonia level is dropping. PHYSICAL EXAMINATION: GENERAL: She remains pale, dehydrated and chronically ill in appearance. CHEST: Reveals good breath sounds bilaterally. ABDOMEN: Soft, nontender. IMPRESSION: Hepatic encephalopathy. PLAN: Continue with and continue to monitor her laboratory studies before [facility]. MMODL / IJN: [id number] /
[2024-09-06] MEDS: CALCIUM CARBONATE 500 MG CHEWABLE PO SCH (12:25)
--- NOTE | 2024-09-06 20:56 | PN ---
PROGRESS NOTE DATE OF SERVICE: 09/06/2024 CHIEF COMPLAINT: Hepatic encephalopathy. HISTORY OF PRESENT ILLNESS: This lady is not arousable. Her serum ammonia has dropped dramatically, however. Some of this may be related to her analgesics. PHYSICAL EXAMINATION: LUNGS: Breath sounds are heard bilaterally. She cannot be aroused. ABDOMEN: Soft and she has sinus tachycardia. IMPRESSION: 1. Hepatic encephalopathy. 2. Cirrhosis. 3. Hepatitis C. PLAN: Stop her narcotic analgesics and continue to monitor her central nervous system function. MMODL / IJN: [id number] /
[2024-09-07] MEDS: FOLIC ACID 1 MG TAB PO SCH (06:55)
[2024-09-07] MEDS: ONDANSETRON ODT 4 MG TAB PO PRN (10:26)
[2024-09-07 11:14] VITALS: BMI 21.3
[2024-09-07 12:17] LABS: Basophils # (A) 0.01 10*3/uL (0.00-0.10); Basophils % (A) 0.5 %; Eosinophils # (A) 0.05 10*3/uL (0.04-0.35); Eosinophils % (A) 2.4 %; HCT 25.4 % (37.2-46.3); HGB 8.6 g/dL (12.0-15.0); Lymphocytes # (A) 0.59 10*3/uL (0.90-5.00); Lymphocytes % (A) 27.8 %; MCH 35.5 pg (27.0-32.0); MCHC 33.9 g/dL (32.0-37.0); Mean Platelet Volume 11.4 fL (9.5-12.2); Monocytes # (A) 0.37 10*3/uL (0.20-1.00); Monocytes % (A) 17.5 %; Neutrophils % (A) 51.8 %; RBC 2.42 10*6/uL (4.10-5.20); RDW 16.3 % (11.5-14.5); WBC 2.12 10*3/uL (4.50-10.00)
[2024-09-07 13:21] LABS: Platelet Count 46 10*3/uL (140-440)
[2024-09-07] MEDS: KETOROLAC 15 MG/ML 1 ML VIAL IVP STA (14:19)
[2024-09-07 15:58] LABS: ALT 22 U/L (8-44); AST 35 U/L (13-35); Albumin 2.9 g/dL (3.8-4.9); Albumin/Globulin Ratio 0.83 Ratio (1.60-3.17); Alkaline Phosphatase 92 U/L (41-126); Blood Urea Nitrogen 15.6 mg/dL (9.0-27.0); Calcium 8.6 mg/dL (8.7-10.3); Carbon Dioxide 20.8 mmol/L (21.6-31.8); Chloride 109 mmol/L (96-109); Globulin 3.5 g/dL (1.6-3.3); Glucose 127 mg/dL (70-110); Potassium 3.3 mmol/L (3.5-5.5); Sodium 139 mmol/L (135-145); Total Bilirubin 1.1 mg/dL (0.3-1.2); Total Protein 6.4 g/dL (6.2-8.2)
[2024-09-07] MEDS: ETODOLAC 400 MG TAB PO SCH (19:02)
[2024-09-07] MEDS: HYDROcodone/APAP 5-325MG 1 EACH TAB PO STA (22:05)
[2024-09-08] MEDS: HALOPERIDOL LACTATE 5 MG/ML 1 ML VIAL IM PRN (02:30)
--- NOTE | 2024-09-08 03:06 | PN ---
PROGRESS NOTE DATE OF SERVICE: 09/07/2024 CHIEF COMPLAINT: Encephalopathy. HISTORY OF PRESENT ILLNESS: This lady is doing about the same. She is awake and alert, walking around. She is incessantly asking for pain medication. I am trying to avoid narcotics if possible as she is able to go back to the [facility]. PHYSICAL EXAMINATION: GENERAL: She is dehydrated, pale and chronically ill in appearance. CHEST: Breath sounds are heard bilaterally. CARDIAC: Normal. IMPRESSION: 1. Hepatic encephalopathy. 2. Cirrhosis. 3. Hepatitis C. 4. History of ascites. 5. Chronic analgesic abuse with dependency. PLAN: 1. Discharge back to the detention. 2. Toradol for pain. MMODL / IJN: [id number] /
[2024-09-08 08:12] VITALS: RESP 18
[2024-09-08 14:39] VITALS: BP 131/79; PULSE 94; TEMP 98.2
--- NOTE | 2024-09-08 16:17 | DS ---
DISCHARGE SUMMARY CHIEF COMPLAINT: Coma. HISTORY OF PRESENT ILLNESS AND PHYSICAL EXAMINATION: Details of this lady's history and physical can be found in her initial workup. COURSE IN THE HOSPITAL: After she was admitted, she was placed on bedrest, started intravenous fluids, and Cephulac. Her serum ammonia was very high. It gradually came down and she became more awake and alert. She then became quite aggressive with staff, is uncooperative, but this is her usual state. She complained bitterly of pain, which she always has for years. She describes it is being everywhere. She was improving and it was felt that [facility] could [facility]. She was on Lodine or Toradol, and it was recommended that her narcotic analgesics be withheld. She will have to be on the Cephulac on a regular basis to keep her serum ammonia down. FINAL DIAGNOSES: 1. Hyperammonemia. 2. Coma. 3. Cirrhosis. 4. History of hepatitis C. 5. General debility. 6. Malnutrition. 7. Dehydration. 8. Hepatic encephalopathy. 9. Chronic generalized pain. 10.Analgesic abuse. OPERATIONS: None. CONSULTATIONS: None. MMPABLITOL / KAREEM: [id number] /
--- NOTE | 2024-09-12 15:53 | CDI ---
Documentation Clarification Form Date: 09/12/2024 03:17:06 PM From: Mulu Linton RN, CCDS Email: [email or web address] Admit Date: 09/04/2024 02:53:00 AM Patient Name: Lori Barakat Visit Number: [id number] Discharge Date: 09/08/2024 05:46:00 PM ATTENTION: The Clinical Documentation Specialists (CDI) and [facility] Coding Staff appreciate your assistance in clarifying documentation. Please respond to the clarification below the line at the bottom and electronically sign. The CDI & [facility] Coding staff will review the response and follow-up if needed. Please note: Queries are made part of the Legal Health Record. If you have any questions, please contact the author of this message via ITS. Doctor Mark Estrada The progress notes indicate the patient had hepatic encephalopathy and a history of liver cirrhosis. Based on this information and the findings below, is there an additional diagnosis that is clinically appropriate for this patient? Patient history/risk factors: liver cirrhosis, hepatitis C, alcoholism, Ca and GI bleed. Patient was discharged about 1 week ago for hepatic encephalopathy. Presented this admission with AMS and hepatic encephalopathy. Clinical Indicators: 09/03-09/07 Labs: Platelet count 58-53-46; PT 13.0; INR 1.2; T. bili 2.1; AST 43; ALP 145; Ammonia 217-80-50 09/04 H&P: "Acute hepatic encephalopathy. Hyperammonemia. Pancytopenia." 09/08 Discharge summary: "Her serum ammonia was very high. It gradually came down and she became more awake and alert. She will have to be on the Cephulac on a regular basis to keep her serum ammonia down." Treatment: Lactulose 40gm po x1 on 09/04; Lactulose 200gm rectal Q6H 09/04-09/05; Lactulose 30gm po QID 09/05-09/08; 1L 0.9 NS IV bolus x1 on 09/03 then 75mL/hr; Lasix 20mg po daily 09/04-09/08; Folic acid 1mg po daily 09/04-09/08 Is there an additional diagnosis that is clinically appropriate for this patient? [ ] Acute Liver Failure [ ] Subacute Liver Failure [ ] Chronic Liver Failure [ ] No additional diagnosis/Not clinically significant [ ] Other, please specify [ ] Unable to determine MTDD
--- NOTE | 2024-09-15 17:14 | MISC ---
MISCELLANOUS REPORT Chronic liver failure. MMODL / IJN: [id number] /
== END 2024-09-08 17:46 | DRG 442 ==
LOC: EC 22:23 → 3SCARD 09-04 02:53 → 4SSUR 09-05 23:14
PROVIDERS: ADMIT Family Medicine; ATTEND Family Medicine
DX: K76.82 Hepatic encephalopathy (principal); D61.818 Other pancytopenia; E72.4 Disorders of ornithine metabolism; E46 Unspecified protein-calorie malnutrition; K72.10 Chronic hepatic failure without coma; J44.9 Chronic obstructive pulmonary disease, unspecified; F10.20 Alcohol dependence, uncomplicated; K74.60 Unspecified cirrhosis of liver; E86.0 Dehydration; K21.9 Gastro-esophageal reflux disease without esophagitis; R53.81 Other malaise; F17.210 Nicotine dependence, cigarettes, uncomplicated; F41.9 Anxiety disorder, unspecified; G89.29 Other chronic pain; H91.91 Unspecified hearing loss, right ear; F55.8 Abuse of other non-psychoactive substances; Z86.19 Personal history of other infectious and parasitic diseases
CPT/HCPCS: 36415; 70450; 71045; 80053; 81001; 82140; 84484; 85025; 85610; 85730; 87040; 93005; 96361; 96374; 96375; 99285

== ENCOUNTER 2024-09-10 13:44 | Emergency (ER) | payer MEDICARE, OTHER ==
[2024-09-10 13:55] VITALS: TEMP 97.9
--- NOTE | 2024-09-10 14:33 | ED ---
General Adult HPI - General Chief complaint: Neuro Symptoms/Deficit Stated complaint: R arm numbness Time Seen by Provider: 09/10/24 14:01 Source: patient, RN notes reviewed, old records reviewed Mode of arrival: wheelchair Limitations: no limitations - History of Present Illness Initial comments: 58-year-old female presenting with weakness in the left wrist. Patient states she woke with this symptom approximately 5 hours prior to arrival. She states she feels like it is asleep. She states she is unaware if she slept with her arm over the back of a chair or bed rail. She states she was up throughout the night. She denies any symptom in the leg, no headache, no speech abnormality, no neck pain or injury. Weakness and numbness is isolated to the left wrist and hand. - Related Data Home Medications Medication Instructions Recorded Confirmed Thiamine [Vitamin B-1] 100 mg PO DAILY@0700 08/18/24 09/04/24 Acetaminophen [Tylenol 8 Hour] 650 mg PO Q6H PRN 09/04/24 09/04/24 Calcium Carbonate [Tums] 500 mg PO AC-TID@06,11,16 09/04/24 09/04/24 Folic Acid 0.8 mg PO DAILY@0700 09/04/24 09/04/24 Promethazine HCl 12.5 mg PO Q6H PRN 09/04/24 09/04/24 Previous Rx's Medication Instructions Recorded Etodolac [Lodine] 400 mg PO BID #20 tab 09/07/24 Furosemide [Lasix] 20 mg PO DAILY #30 tab 09/07/24 Lactulose [Cephulac] 30 gm PO QID 30 Days #1 dispenser 09/07/24 Allergies Allergy/AdvReac Type Severity Reaction Status Date / Time No Known Allergies Allergy Verified 09/04/24 09:30 Review of Systems ROS Statement: Those systems with pertinent positive or pertinent negative responses have been documented in the HPI. ROS Other: All systems not noted in ROS Statement are negative. Past Medical History Past Medical History: Cancer, COPD, GERD/Reflux, GI Bleed, Hearing Disorder / Deafness, Liver Disease Additional Past Medical History / Comment(s): Hepatitis C, intractable ascities with multiple paracentesis, cirrhosis, peritonitis, pancytopenia, vertigo once; multiple upper GI bleeds, esophageal varicies/esophageal banding, left breast cancer had chemo last on 09-12-16-did not tolerate-completed only 3 cycles-then it was stopped/received radiation treatments/pt states she did not follow up and so did not have surgery, lt ear deafness, R ear [place], occasional R leg edema, recent admission for hepatic encephalopathy 08/18/24 through 08/27/24, calcified abdominal aorta, metabolic alkalosis, pulm htn, portal vein thrombosis, pancreatitis, cholelithiasis History of Any Multi-Drug Resistant Organisms: None Reported Past Surgical History: Adenoidectomy, Breast Surgery, Tonsillectomy Additional Past Surgical History / Comment(s): Multiple paracentesises, EGDs, esophageal banding x2, right chest mediport since removed, l breast bx., Past Anesthesia/Blood Transfusion Reactions: No Reported Reaction Additional Past Anesthesia/Blood Transfusion Reaction / Comment(s): Blood transfusions-no reaction Past Psychological History: Anxiety Smoking Status: Current every day smoker Past Alcohol Use History: None Reported Past Drug Use History: None Reported - Past Family History Mother Family Medical History: Cancer Additional Family Medical History / Comment(s): of lung ca at the age of 59yrs. She was a smoker. Father Family Medical History: Myocardial Infarction ([place]) Additional Family Medical History / Comment(s): from 2nd heart attack at the age of 59yrs. General Exam Limitations: no limitations General appearance: alert, in no apparent distress Head exam: Present: atraumatic, normocephalic Eye exam: Present: normal appearance, PERRL ENT exam: Present: normal exam Neck exam: Present: normal inspection. Absent: tenderness, meningismus Respiratory exam: Present: normal lung sounds bilaterally. Absent: respiratory distress, wheezes Cardiovascular Exam: Present: regular rate, normal rhythm GI/Abdominal exam: Present: soft. Absent: distended, tenderness, guarding Extremities exam: Present: other (Unable to extend at the left wrist, the proximal muscle groups are 5 out of 5 strength. Patient also has numbness to the dorsum of the hand.) Neurological exam: Present: alert, oriented X3 Psychiatric exam: Present: normal affect, normal mood Skin exam: Present: warm, dry, intact Course Vital Signs 09/10/24 09/10/24 13:52 15:05 Temperature 97.9 F Pulse Rate 93 90 Respiratory 20 16 Rate Blood Pressure 157/83 130/67 O2 Sat by Pulse 99 99 Oximetry Medical Decision Making - Medical Decision Making Was pt. sent in by a medical professional or institution (LIANNA Arzate, SPORTS COMMENTATOR, urgent care, hospital, or group home...) When possible be specific @ -No Did you speak to anyone other than the patient for history (EMS, parent, family, police, friend...)? What history was obtained from this source @ -No Did you review nursing and triage notes (agree or disagree)? Why? @ -I reviewed and agree with nursing and triage notes Were old charts reviewed (outside hosp., previous admission, EMS record, old EKG, old radiological studies, urgent care reports/EKG's, group home records)? Report findings @ -No old charts were reviewed Differential Diagnosis CVA, cervical radiculopathy, peripheral neuropathy EKG interpreted by me (3pts min.). @ -As above X-rays interpreted by me (1pt min.). @ -None done CT interpreted by me (1pt min.). @CT brain and cervical spine negative for acute findings, no evidence of CVA U/S interpreted by me (1pt. min.). @ -None done What testing was considered but not performed or refused? (CT, X-rays, U/S, labs )? Why? @ -None What meds were considered but not given or refused? Why? @ -None Did you discuss the management of the patient with other professionals (professionals i.e. LIANNA Arzate, SPORTS COMMENTATOR, lab, RT, psych nurse, health and social care teacher, interior specialist, teacher, fare enforcement officer, director of casework department)? Give summary @ -No Was smoking cessation discussed for >3mins.? @ -No Was critical care preformed (if so, how long)? @ -No Were there social determinants of health that impacted care today? How? (Homelessness, low income, unemployed, alcoholism, drug addiction, transportation, low edu. Level, literacy, decrease access to med. care, senior care, rehab)? @ -No Was there de-escalation of care discussed even if they declined (Discuss DNR or withdrawal of care, Hospice)? DNR status @ -No What co-morbidities impacted this encounter? (DM, HTN, Smoking, COPD, CAD, Cancer, CVA, ARF, Chemo, Hep., AIDS, mental health diagnosis, sleep apnea, morbid obesity)? @ -None Was patient admitted / discharged? Hospital course, mention meds given and route, prescriptions, significant lab abnormalities, going to OR and other pertinent info. @58-year-old female presents with left wrist drop. She states she was in her wheelchair all night. Likely a Thursday night palsy. She has a sensory deficit on the dorsum of the hand and left wrist drop with no other focal neurological symptoms. Distal pulses are intact. I did perform CT imaging of the brain and cervical spine which were unremarkable. Patient was scheduled for discharge from the group home today however she states she cannot stay longer. I discussed case with her primary care provider Dr. Estrada. Undiagnosed new problem with uncertain prognosis? @ -No Drug Therapy requiring intensive monitoring for toxicity (Heparin, Nitro, Insulin, Cardizem)? @ -No Were any procedures done? @ -No Diagnosis/symptom? @ -[Radial nerve palsy on the left Acute, or Chronic, or Acute on Chronic? @Acute Uncomplicated (without systemic symptoms) or Complicated (systemic symptoms)? @ -Default Side effects of treatment? @ -No Exacerbation, Progression, or Severe Exacerbation? @ -No Poses a threat to life or bodily function? How? (Chest pain, [place], DC, pneumonia, PE, COPD, DKA, ARF, appy, cholecystitis, CVA, Diverticulitis, Homicidal, Suicidal, threat to staff... and all critical care pts) @Risk of permanent radial nerve injury Disposition Clinical Impression: Acute radial nerve palsy of left upper extremity Disposition: HOME SELF-CARE Condition: Fair Instructions (If sedation given, give patient instructions): Radial Nerve Palsy (ED) Is patient prescribed a controlled substance at d/c from ED?: No Referrals: Mark Estrada MD [Primary Care Provider] - 1-2 days Time of Disposition: 16:00
[2024-09-10 15:05] VITALS: RESP 16
[2024-09-10] MEDS: MORPHINE SULFATE 4 MG/ML SYRINGE IM STA (15:09)
--- NOTE | 2024-09-10 15:19 | CT ---
EXAMINATION TYPE: CT brain cspine wo con CT DLP: 1302.5 mGycm, Automated exposure control for dose reduction was used. DATE OF EXAM: 09/10/2024 2:39 PM COMPARISON: CT brain 09/04/2024. CLINICAL INDICATION:Female, 58 years old with history of left wrist drop; LT wrist drop TECHNIQUE: Brain: Multiple axial CT images of the brain were obtained without IV contrast. Cspine: Axial CT images from the skull base to the inferior aspect of T2 we obtained without intraven ous contrast. Coronal and sagittal reformatted images were also reviewed. . FINDINGS: Brain: Extra-axial spaces: No abnormal extra-axial fluid collections. Ventricular system: Within normal limits Cerebral parenchyma: No acute intraparenchymal hemorrhage or mass effect. The royal-white junction is well differentiated. Cerebellum: Unremarkable. Mass effect: No evidence of midline shift. Intracranial vasculature: unremarkable Soft tissues: Normal. Calvarium/osseous structures: No depressed skull fracture. Paranasal sinuses and mastoid air cells: Clear. Visualized orbits: Orbital contents are intact. Cervical spine: Fracture: No acute fractures. Osseous structures: Mild degenerative changes are seen. Vertebral alignment: Within normal limits. Spinal canal/Neural Foramina: No evidence of significant spinal canal narrowing. No evidence for sign ificant neural foraminal stenosis. Neck soft tissues: There is a 6 mm hypodense nodule in the right thyroid lobe. Prevertebral soft tiss ues are within normal limits. Other: The airway is patent. Diffuse centrilobular emphysema. Multiple nonenlarged lymph nodes are se en in the partially visualized mediastinum. IMPRESSION: No acute intracranial process. No evidence of acute cervical spine fracture. Mild multilevel degenerative disc disease. [facility], , 09/10/2024 3:17 PM
[2024-09-10 16:28] VITALS: BP 122/71; PULSE 98
== END 2024-09-10 16:28 | disposition home or self-care (01) ==
LOC: EC 13:44
DX: G56.32 Lesion of radial nerve, left upper limb (principal); F17.200 Nicotine dependence, unspecified, uncomplicated
CPT/HCPCS: 72125; 70450; 99284; 96372; J2270

== ENCOUNTER 2024-09-14 21:54 | Emergency (ER) | payer MEDICARE, OTHER ==
[2024-09-14 22:37] VITALS: TEMP 98.3
--- NOTE | 2024-09-14 22:55 | ED ---
Abdominal Pain HPI - General Source: RN/MD, EMS, RN notes reviewed Mode of arrival: EMS Limitations: altered mental status <ReubenPatria - Last Filed: 09/14/24 22:52> <Francisco Joe - Last Filed: 09/15/24 03:36> - General Chief Complaint: Abdominal Pain Stated Complaint: abd pain Time Seen by Provider: 09/14/24 22:52 - History of Present Illness Initial Comments: Quick [id number] female sent from [facility] for altered mental status. Patient was recently diagnosed with hepatic encephalopathy and has been refusing to take her lactulose. Nurses state patient is normally A&O x 3. Patient has a history of liver cirrhosis secondary to hepatitis C. Also complaining of abdominal pain. (Patria Alexis) 59-year-old female with reported altered mental status. Patient is awake and alert at the time my evaluation. Apparently she had been given Dilaudid by [facility] staff prior to this episode of confusion. There was also concern that her ammonia level may be elevated with a history of hepatic encephalitis. Patient states she has been taking her lactulose and has not missed a single dose. She denies fever. Denies dysuria or hematuria. (Francisco Joe) - Related Data Home Medications Medication Instructions Recorded Confirmed Thiamine [Vitamin B-1] 100 mg PO DAILY@0700 08/18/24 09/04/24 Acetaminophen [Tylenol 8 Hour] 650 mg PO Q6H PRN 09/04/24 09/04/24 Calcium Carbonate [Tums] 500 mg PO AC-TID@06,11,16 09/04/24 09/04/24 Folic Acid 0.8 mg PO DAILY@0700 09/04/24 09/04/24 Promethazine HCl 12.5 mg PO Q6H PRN 09/04/24 09/04/24 Previous Rx's Medication Instructions Recorded Etodolac [Lodine] 400 mg PO BID #20 tab 09/07/24 Furosemide [Lasix] 20 mg PO DAILY #30 tab 09/07/24 Lactulose [Cephulac] 30 gm PO QID 30 Days #1 dispenser 09/07/24 Allergies Allergy/AdvReac Type Severity Reaction Status Date / Time No Known Allergies Allergy Verified 09/14/24 22:38 Review of Systems ROS Other: All systems not noted in ROS Statement are negative. <Patria Alexis - Last Filed: 09/14/24 22:52> ROS Other: All systems not noted in ROS Statement are negative. <Francisco Joe - Last Filed: 09/15/24 03:36> ROS Statement: Those systems with pertinent positive or pertinent negative responses have been documented in the HPI. Past Medical History Past Medical History: Cancer, COPD, GERD/Reflux, GI Bleed, Hearing Disorder / Deafness, Liver Disease Additional Past Medical History / Comment(s): Hepatitis C, intractable ascities with multiple paracentesis, cirrhosis, peritonitis, pancytopenia, vertigo once; multiple upper GI bleeds, esophageal varicies/esophageal banding, left breast cancer had chemo last on 09-12-16-did not tolerate-completed only 3 cycles-then it was stopped/received radiation treatments/pt states she did not follow up and so did not have surgery, lt ear deafness, R ear [place], occasional R leg edema, recent admission for hepatic encephalopathy 08/18/24 through 08/27/24, calcified abdominal aorta, metabolic alkalosis, pulm htn, portal vein thrombosis, pancreatitis, cholelithiasis History of Any Multi-Drug Resistant Organisms: None Reported Past Surgical History: Adenoidectomy, Breast Surgery, Tonsillectomy Additional Past Surgical History / Comment(s): Multiple paracentesises, EGDs, esophageal banding x2, right chest mediport since removed, l breast bx., Past Anesthesia/Blood Transfusion Reactions: No Reported Reaction Additional Past Anesthesia/Blood Transfusion Reaction / Comment(s): Blood transfusions-no reaction Past Psychological History: Anxiety Smoking Status: Current every day smoker Past Alcohol Use History: None Reported Past Drug Use History: None Reported - Past Family History Mother Family Medical History: Cancer Additional Family Medical History / Comment(s): of lung ca at the age of 59yrs. She was a smoker. Father Family Medical History: Myocardial Infarction ([place]) Additional Family Medical History / Comment(s): from 2nd heart attack at the age of 59yrs. <Patria Alexis - Last Filed: 09/14/24 22:52> General Exam Limitations: altered mental status <AlexisPatria - Last Filed: 09/14/24 22:52> General appearance: alert, in no apparent distress Head exam: Present: atraumatic, normocephalic Eye exam: Present: normal appearance, PERRL ENT exam: Present: normal exam Neck exam: Present: normal inspection. Absent: tenderness, meningismus Respiratory exam: Present: normal lung sounds bilaterally. Absent: respiratory distress, wheezes Cardiovascular Exam: Present: regular rate, normal rhythm GI/Abdominal exam: Present: soft. Absent: distended, tenderness, guarding Extremities exam: Present: normal inspection, normal capillary refill Neurological exam: Present: alert, oriented X3, CN II-XII intact. Absent: motor sensory deficit Psychiatric exam: Present: normal affect, normal mood Skin exam: Present: warm, dry, intact. Absent: cyanosis, diaphoretic <Francisco Joe - Last Filed: 09/15/24 03:36> - General Exam Comments Initial Comments: Visual Physical Exam Vital signs reviewed General: Patient appears fatigued, falls asleep frequently during questioning Head: Normocephalic, atraumatic Eyes: PERRLA, EOMI ENT: Airway patent Chest: Nonlabored breathing Skin: No visual rash, normal skin tone Musculoskeletal: No gross abnormalities (Patria Alexis) Course Vital Signs 09/14/24 09/15/24 22:26 01:51 Temperature 98.3 F Pulse Rate 107 H 95 Respiratory 19 18 Rate Blood Pressure 134/76 130/72 O2 Sat by Pulse 134 H 100 Oximetry Medical Decision Making <Patria Alexis - Last Filed: 09/14/24 22:52> - Lab Data Result diagrams: 09/15/24 01:45 09/15/24 00:04 <Francisco Joe - Last Filed: 09/15/24 03:36> - Medical Decision Making I completed the quick note portion of this chart signed Patria Alexis PA-C (Patria Alexis) Was pt. sent in by a medical professional or institution (LIANNA Arzate, CRIME SCENE ANALYST, urgent care, hospital, or [place] [facility]...) When possible be specific @ -No Did you speak to anyone other than the patient for history (EMS, parent, family, police, friend...)? What history was obtained from this source @ -No Did you review nursing and triage notes (agree or disagree)? Why? @ -I reviewed and agree with nursing and triage notes Were old charts reviewed (outside hosp., previous admission, EMS record, old EKG, old radiological studies, urgent care reports/EKG's, [facility] records)? Report findings @ -No old charts were reviewed Differential Altered Mental Status: Hypoglycemia, DKA, hypercapnia, ETOH, overdose, CO poisoning, trauma, myxedema coma, HTN encephalopathy, infection, encephalitis, psychosis, intercranial hemorrhage, hepatic encephalopathy, meningitis, CVA, this is not meant to be an all-inclusive list EKG interpreted by me (3pts min.). @ -Sinus rhythm rate of 96, [place] interval 125, QRS duration 82, QTc [address] segment elevation. X-rays interpreted by me (1pt min.). @ -None done CT interpreted by me (1pt min.). @ -None done U/S interpreted by me (1pt. min.). @ -None done What testing was considered but not performed or refused? (CT, X-rays, U/S, labs)? Why? @ -None What meds were considered but not given or refused? Why? @ -None Did you discuss the management of the patient with other professionals (professionals i.e. , PA, CRIME SCENE ANALYST, lab, RT, psych nurse, social service liaison, allied health professional, teacher, aerospace engineer officer armament, disease case manager rn)? Give summary @ -No Was smoking cessation discussed for >3mins.? @ -No Was critical care preformed (if so, how long)? @ -No Were there social determinants of health that impacted care today? How? (Homelessness, low income, unemployed, alcoholism, drug addiction, transportation, low edu. Level, literacy, decrease access to med. care, fdc, rehab)? @ -No Was there de-escalation of care discussed even if they declined (Discuss DNR or withdrawal of care, Hospice)? DNR status @ -No What co-morbidities impacted this encounter? (DM, HTN, Smoking, COPD, CAD, Cancer, CVA, ARF, Chemo, Hep., AIDS, mental health diagnosis, sleep apnea, morbid obesity)? @Liver cirrhosis Was patient admitted / discharged? Hospital course, mention meds given and route, prescriptions, significant lab abnormalities, going to OR and other p ertinent info. @ -59-year-old female brought in for evaluation of altered mental status. Patient had apparently been given Dilaudid at the [facility]. There was concern for elevated ammonia given her history of hepatic encephalopathy and hyperammonemia secondary to liver cirrhosis. Patient denies complaint at the time my evaluation. She states she has been taking her lactulose as prescribed. Ammonia level is obtained in the emergency department and this is normal at 21. Patient awake and alert oriented x 3. Stable for discharge back to the [facility]. Undiagnosed new problem with uncertain prognosis? @ -No Drug Therapy requiring intensive monitoring for toxicity (Heparin, Nitro, Insulin, Cardizem)? @ -No Were any procedures done? @ -No Diagnosis/symptom? @ -Confusion, resolved. Chronic abdominal pain Acute, or Chronic, or Acute on Chronic? @ -Acute Uncomplicated (without systemic symptoms) or Complicated (systemic symptoms)? @ -Default Side effects of treatment? @ -No Exacerbation, Progression, or Severe Exacerbation? @ -No Poses a threat to life or bodily function? How? (Chest pain, [place], [place], pneumonia, PE, COPD, DKA, ARF, appy, cholecystitis, CVA, Diverticulitis, Homicidal, Suicidal, threat to staff... and all critical care pts) @ -No (Francisco Joe) - Lab Data Lab Results 09/15/24 09/15/24 09/15/24 Range/Units 00:04 00:04 00:04 WBC (4.50-10.00) 10*3/uL RBC (4.10-5.20) 10*6/uL Hgb (12.0-15.0) g/dL Hct (37.2-46.3) % MCV (80.0-97.0) fL MCH (27.0-32.0) pg MCHC (32.0-37.0) g/dL MPV (9.5-12.2) fL Immature Gran % (Auto) % Immature Gran # (0.00-0.04) 10*3/uL Immature Plt Fraction (1.1-6.1) % PT 11.6 (10.0-12.5) sec INR 1.1 (<1.2) APTT 19.3 L (22.0-30.0) sec Sodium 138 (137-145) mmol/L Potassium 5.2 H (3.5-5.1) mmol/L Chloride 109 H (98-107) mmol/L Carbon Dioxide 23 (22-30) mmol/L Anion Gap 6 mmol/L BUN 19 H (7-17) mg/dL Creatinine 0.60 (0.52-1.04) mg/dL Est GFR (CKD-EPI)AfAm >90 (>60 ml/min/1.73 sqM) Est GFR (CKD-EPI)NonAf >90 (>60 ml/min/1.73 sqM) Glucose 136 H (74-99) mg/dL Calcium 9.0 (8.4-10.2) mg/dL Total Bilirubin 2.4 H (0.2-1.3) mg/dL AST 76 H (14-36) U/L ALT 31 (4-34) U/L Alkaline Phosphatase 130 H (38-126) U/L Ammonia 21 (<30) umol/L Total Protein 8.4 H (6.3-8.2) g/dL Albumin 3.9 (3.5-5.0) g/dL 09/15/24 Range/Units 01:45 WBC 1.70 L (4.50-10.00) 10*3/uL RBC 2.76 L (4.10-5.20) 10*6/uL Hgb 9.9 L (12.0-15.0) g/dL Hct 29.7 L (37.2-46.3) % MCV 107.6 H (80.0-97.0) fL MCH 35.9 H (27.0-32.0) pg MCHC 33.3 (32.0-37.0) g/dL MPV 11.9 (9.5-12.2) fL Immature Gran % (Auto) 0.6 % Immature Gran # 0.01 (0.00-0.04) 10*3/uL Immature Plt Fraction 3.2 (1.1-6.1) % PT (10.0-12.5) sec INR (<1.2) APTT (22.0-30.0) sec Sodium (137-145) mmol/L Potassium (3.5-5.1) mmol/L Chloride (98-107) mmol/L Carbon Dioxide (22-30) mmol/L Anion Gap mmol/L BUN (7-17) mg/dL Creatinine (0.52-1.04) mg/dL Est GFR (CKD-EPI)AfAm (>60 ml/min/1.73 sqM) Est GFR (CKD-EPI)NonAf (>60 ml/min/1.73 sqM) Glucose (74-99) mg/dL Calcium (8.4-10.2) mg/dL Total Bilirubin (0.2-1.3) mg/dL AST (14-36) U/L ALT (4-34) U/L Alkaline Phosphatase (38-126) U/L Ammonia (<30) umol/L Total Protein (6.3-8.2) g/dL Albumin (3.5-5.0) g/dL Disposition <Patria Alexis - Last Filed: 09/14/24 22:52> Is patient prescribed a controlled substance at d/c from ED?: No Time of Disposition: 03:36 <Francisco Joe - Last Filed: 09/15/24 03:36> Clinical Impression: Altered mental status, Chronic anemia, Chronic abdominal pain Disposition: HOME SELF-CARE Condition: Fair Referrals: Mark Estrada MD [Primary Care Provider] - 1-2 days
[2024-09-15 00:42] LABS: ALT 31 U/L (4-34); AST 76 U/L (14-36); African American GFR (CKD) >90 (>60 ml/min/1.73 sqM); Albumin 3.9 g/dL (3.5-5.0); Alkaline Phosphatase 130 U/L (38-126); Anion Gap 6 mmol/L; Blood Urea Nitrogen 19 mg/dL (7-17); Carbon Dioxide 23 mmol/L (22-30); Chloride 109 mmol/L (98-107); Glucose 136 mg/dL (74-99); Non-African American GFR(CKD) >90 (>60 ml/min/1.73 sqM); Sodium 138 mmol/L (137-145); Total Bilirubin 2.4 mg/dL (0.2-1.3); Total Protein 8.4 g/dL (6.3-8.2)
[2024-09-15 00:47] LABS: INR 1.1 (<1.2); Prothrombin Time 11.6 sec (10.0-12.5)
[2024-09-15 01:00] LABS: Potassium 5.2 mmol/L (3.5-5.1)
[2024-09-15 01:05] LABS: Partial Thromboplastin Time 19.3 sec (22.0-30.0)
[2024-09-15 01:52] VITALS: RESP 18
[2024-09-15] MEDS: LACTULOSE 20 GM/30 ML CUP PO ONE (01:59)
[2024-09-15 02:05] LABS: Eosinophils # (A) 0.01 10*3/uL (0.04-0.35); Eosinophils % (A) 0.6 %; HCT 29.7 % (37.2-46.3); HGB 9.9 g/dL (12.0-15.0); Immature Platelet Fraction 3.2 % (1.1-6.1); Lymphocytes # (A) 0.46 10*3/uL (0.90-5.00); Lymphocytes % (A) 27.1 %; MCH 35.9 pg (27.0-32.0); MCHC 33.3 g/dL (32.0-37.0); MCV 107.6 fL (80.0-97.0); Mean Platelet Volume 11.9 fL (9.5-12.2); Monocytes # (A) 0.28 10*3/uL (0.20-1.00); Monocytes % (A) 16.5 %; Neutrophils # (A) 0.94 10*3/uL (1.80-7.70); Neutrophils % (A) 55.2 %; RBC 2.76 10*6/uL (4.10-5.20); RDW 15.9 % (11.5-14.5)
[2024-09-15 02:54] LABS: Platelet Count 48 10*3/uL (140-440)
[2024-09-15 04:07] LABS: Polychromasia Present
[2024-09-15 05:43] VITALS: BP 144/91; PULSE 94
== END 2024-09-15 05:42 | disposition home or self-care (01) ==
LOC: EC 21:54
DX: G89.29 Other chronic pain (principal); R10.9 Unspecified abdominal pain; R41.82 Altered mental status, unspecified; D64.9 Anemia, unspecified; K74.60 Unspecified cirrhosis of liver; F17.200 Nicotine dependence, unspecified, uncomplicated
CPT/HCPCS: 36415; 80053; 82140; 85025; 85610; 85730; 93005; 99284

== ENCOUNTER 2024-09-15 11:45 | Observation (INO) | payer MEDICARE, OTHER ==
--- NOTE | 2024-09-15 12:37 | ED ---
General Adult HPI - General Chief complaint: GI Bleed Stated complaint: GI issue Time Seen by Provider: 09/15/24 11:50 Source: patient, EMS, RN notes reviewed, old records reviewed Mode of arrival: EMS - History of Present Illness Initial comments: This is a 59-year-old female who presents to the emergency department because she was complaining of abdominal pain. Patient was here yesterday with abdominal pain and [facility] worked [facility] Patient today vomited once and they thought it looked somewhat like coffee ground so they want to send her back in. Patient is given fentanyl on the way in and so she is not very conversive at this time she is awake and oriented to self and place but other than that she is not giving any history she states her abdomen hurts. Patient will not answer questions about nausea vomiting she denies any chest pain. She denies any shortness of breath. Patient also has hepatic encephalopathy and staff states she does not normally want to take her lactulose. - Related Data Home Medications Medication Instructions Recorded Confirmed Thiamine [Vitamin B-1] 100 mg PO DAILY@0700 08/18/24 09/04/24 Acetaminophen [Tylenol 8 Hour] 650 mg PO Q6H PRN 09/04/24 09/04/24 Calcium Carbonate [Tums] 500 mg PO AC-TID@06,,16 09/04/24 09/04/24 Folic Acid 0.8 mg PO DAILY@0700 09/04/24 09/04/24 Promethazine HCl 12.5 mg PO Q6H PRN 09/04/24 09/04/24 Previous Rx's Medication Instructions Recorded Etodolac [Lodine] 400 mg PO BID #20 tab 09/07/24 Furosemide [Lasix] 20 mg PO DAILY #30 tab 09/07/24 Lactulose [Cephulac] 30 gm PO QID 30 Days #1 dispenser 09/07/24 Allergies Allergy/AdvReac Type Severity Reaction Status Date / Time No Known Allergies Allergy Verified 09/14/24 22:38 Review of Systems ROS Statement: Those systems with pertinent positive or pertinent negative responses have been documented in the HPI. ROS Other: All systems not noted in ROS Statement are negative. Past Medical History Past Medical History: Cancer, COPD, GERD/Reflux, GI Bleed, Hearing Disorder / Deafness, Liver Disease Additional Past Medical History / Comment(s): Hepatitis C, intractable ascities with multiple paracentesis, cirrhosis, peritonitis, pancytopenia, vertigo once; multiple upper GI bleeds, esophageal varicies/esophageal banding, left breast cancer had chemo last on 09-12-16-did not tolerate-completed only 3 cycles-then it was stopped/received radiation treatments/pt states she did not follow up and so did not have surgery, lt ear deafness, R ear [place], occasional R leg edema, recent admission for hepatic encephalopathy 08/18/24 through 08/27/24, calcified abdominal aorta, metabolic alkalosis, pulm htn, portal vein thrombosis, pancreatitis, cholelithiasis History of Any Multi-Drug Resistant Organisms: None Reported Past Surgical History: Adenoidectomy, Breast Surgery, Tonsillectomy Additional Past Surgical History / Comment(s): Multiple paracentesises, EGDs, esophageal banding x2, right chest mediport since removed, l breast bx., Past Anesthesia/Blood Transfusion Reactions: No Reported Reaction Additional Past Anesthesia/Blood Transfusion Reaction / Comment(s): Blood transfusions-no reaction Past Psychological History: Anxiety Smoking Status: Current every day smoker Past Alcohol Use History: None Reported Past Drug Use History: None Reported - Past Family History Mother Family Medical History: Cancer Additional Family Medical History / Comment(s): of lung ca at the age of 59yrs. She was a smoker. Father Family Medical History: Myocardial Infarction ([place]) Additional Family Medical History / Comment(s): from 2nd heart attack at the age of 59yrs. General Exam - General Exam Comments Initial Comments: GENERAL: Patient is well-developed and well-nourished. Patient is nontoxic and well- hydrated and is in mild distress. ENT: Neck is soft and supple. No significant lymphadenopathy is noted. Oropharynx is clear. Moist mucous membranes. Neck has full range of motion without eliciting any pain. EYES: The sclera were anicteric and conjunctiva were pink and moist. Extraocular movements were intact and pupils were equal round and reactive to light. Eyelids were unremarkable. PULMONARY: Unlabored respirations. Good breath sounds bilaterally. No audible rales rhonchi or wheezing was noted. CARDIOVASCULAR: There is a regular rate and rhythm without any murmurs gallops or rubs. ABDOMEN: Mildly distended abdomen and tender suprapubic region SKIN: Skin is clear with no lesions or rashes and otherwise unremarkable. NEUROLOGIC: Patient is alert and oriented x 2. Cranial nerves II through XII are grossly intact. Motor and sensory are also intact. Normal speech, volume and content. Symmetrical smile. MUSCULOSKELETAL: Normal extremities with adequate strength and full range of motion. LYMPHATICS: No significant lymphadenopathy is noted PSYCHIATRIC: Normal psychiatric evaluation. Course Vital Signs 09/15/24 09/15/24 09/15/24 11:49 12:55 15:41 Temperature 97.6 F 98.2 F Pulse Rate 73 65 66 Respiratory 18 20 16 Rate Blood Pressure 110/62 112/55 110/67 O2 Sat by Pulse 97 96 98 Oximetry Medical Decision Making - Medical Decision Making Was pt. sent in by a medical professional or institution (, PA, PRODUCT LISTER, urgent care, hospital, or penitentiary...) When possible be specific @ -No Did you speak to anyone other than the patient for history (EMS, parent, family, police, friend...)? What history was obtained from this source @ -No Did you review nursing and triage notes (agree or disagree)? Why? @ -I reviewed and agree with nursing and triage notes Were old charts reviewed (outside hosp., previous admission, EMS record, old EKG, old radiological studies, urgent care reports/EKG's, penitentiary records)? Report findings @ -No old charts were reviewed Differential Diagnosis? @ -Differential Abdominal Pain Women: Appendicitis, Cholecystitis, diverticulosis, ischemic bowel, pancreatitis, hepatitis, UTI, gastroenteritis, AAA, incarcerated hernia, bowel obstruction, constipation, inflammatory bowel, hepatitis, peptic ulcer disease, splenic infarction, perforated viscus, vulvitis, ovarian torsion, PID, kidney stone, placenta abruption, this is not meant to be an all-inclusive list EKG interpreted by me (3pts min.). @ -As above X-rays interpreted by me (1pt min.). @ -None done CT interpreted by me (1pt min.). @ -CT scan showed ascites but no other acute finding U/S interpreted by me (1pt. min.). @ -None done What testing was considered but not performed or refused? (CT, X-rays, U/S, labs)? Why? @ -None What meds were considered but not given or refused? Why? @ -None Did you discuss the management of the patient with other professionals (professionals i.e. DrMalinda, PA, PRODUCT LISTER, lab, RT, psych nurse, social security assessor, spot machine operator, teacher, home school liaison officer, corrections caseworker)? Give summary @ -Spoke with Dr. Pandey and he agreed to admit the patient Was smoking cessation discussed for >3mins.? @ -No Was critical care preformed (if so, how long)? @ -No Were there social determinants of health that impacted care today? How? (Homelessness, low income, unemployed, alcoholism, drug addiction, transportation, low edu. Level, literacy, decrease access to med. care, longterm, rehab)? @ -No Was there de-escalation of care discussed even if they declined (Discuss DNR or withdrawal of care, Hospice)? DNR status @ -No What co-morbidities impacted this encounter? (DM, HTN, Smoking, COPD, CAD, Cancer, CVA, ARF, Chemo, Hep., AIDS, mental health diagnosis, sleep apnea, morbid obesity)? @ -None Was patient admitted / discharged? Hospital course, mention meds given and route, prescriptions, significant lab abnormalities, going to OR and other pertinent info. @ -Patient's CAT scan showed no acute abnormality. Lab work did not explain the patient's symptoms. Patient's hemoglobin stable. Patient laid and rested comfortably throughout the ED stay she did not have any more vomiting. Patient did complain of abdominal pain but according to Dr. Pandey that is a chronic complaint of hers. I spoke with Dr. Pandey and he did agree to admit the patient admit the patient I repeated hemoglobins and I consulted GI Undiagnosed new problem with uncertain prognosis? @ -No Drug Therapy requiring intensive monitoring for toxicity (Heparin, Nitro, Insulin, Cardizem)? @ -No Were any procedures done? @ -No Diagnosis/symptom? @ -Abdominal pain Acute, or Chronic, or Acute on Chronic? @ -Acute Uncomplicated (without systemic symptoms) or Complicated (systemic symptoms)? @ -Complicated Side effects of treatment? @ -No Exacerbation, Progression, or Severe Exacerbation? @ -No Poses a threat to life or bodily function? How? (Chest pain, [place], [place], pneumonia, PE, COPD, DKA, ARF, appy, cholecystitis, CVA, Diverticulitis, Homicidal, Suicidal, threat to staff... and all critical care pts) @ -Yes this can be secondary to significant intra-abdominal issue. - Lab Data Result diagrams: 09/15/24 13:05 09/15/24 13:05 Lab Results 09/15/24 09/15/24 09/15/24 Range/Units 13:05 13:05 13:05 WBC 1.78 L (4.50-10.00) 10*3/uL RBC 2.45 L (4.10-5.20) 10*6/uL Hgb 8.8 L (12.0-15.0) g/dL Hct 26.3 L (37.2-46.3) % MCV 107.3 H (80.0-97.0) fL MCH 35.9 H (27.0-32.0) pg MCHC 33.5 (32.0-37.0) g/dL Plt Count 50 L (140-440) 10*3/uL MPV 11.7 (9.5-12.2) fL Immature Gran % (Auto) 0 % Neutrophils % 57.9 % Lymphocytes % 28.1 % Monocytes % 12.9 % Eosinophils % 1.1 % Basophils % 0.0 % Immature Gran # 0.00 (0.00-0.04) 10*3/uL Neutrophils # 1.03 L (1.80-7.70) 10*3/uL Lymphocytes # 0.50 L (0.90-5.00) 10*3/uL Monocytes # 0.23 (0.20-1.00) 10*3/uL Eosinophils # 0.02 L (0.04-0.35) 10*3/uL Basophils # 0.00 (0.00-0.10) 10*3/uL Differential Comment Manual Slide Review Performed Sodium 139 (137-145) mmol/L Potassium 3.5 (3.5-5.1) mmol/L Chloride 109 H (98-107) mmol/L Carbon Dioxide 26 (22-30) mmol/L Anion Gap 4 mmol/L BUN 18 H (7-17) mg/dL Creatinine 0.53 (0.52-1.04) mg/dL Est GFR (CKD-EPI)AfAm >90 (>60 ml/min/1.73 sqM) Est GFR (CKD-EPI)NonAf >90 (>60 ml/min/1.73 sqM) Glucose 114 H (74-99) mg/dL Plasma Lactic Acid Darrius 1.5 (0.7-2.0) mmol/L Calcium 8.4 (8.4-10.2) mg/dL Total Bilirubin 1.9 H (0.2-1.3) mg/dL AST 37 H (14-36) U/L ALT 23 (4-34) U/L Alkaline Phosphatase 78 (38-126) U/L Ammonia <9 (<30) umol/L Total Protein 6.2 L (6.3-8.2) g/dL Albumin 2.6 L (3.5-5.0) g/dL Amylase 34 (30-110) U/L Lipase 52 (23-300) U/L Disposition Clinical Impression: Abdominal pain, Anemia Disposition: ADMITTED IP TO THIS HOSP Referrals: Mark Estrada MD [Primary Care Provider] - 1-2 days Time of Disposition: 18:08
[2024-09-15 13:15] LABS: Eosinophils # (A) 0.02 10*3/uL (0.04-0.35); Eosinophils % (A) 1.1 %; HCT 26.3 % (37.2-46.3); HGB 8.8 g/dL (12.0-15.0); Lymphocytes % (A) 28.1 %; MCH 35.9 pg (27.0-32.0); MCHC 33.5 g/dL (32.0-37.0); MCV 107.3 fL (80.0-97.0); Mean Platelet Volume 11.7 fL (9.5-12.2); Monocytes # (A) 0.23 10*3/uL (0.20-1.00); Monocytes % (A) 12.9 %; Neutrophils # (A) 1.03 10*3/uL (1.80-7.70); Neutrophils % (A) 57.9 %; RBC 2.45 10*6/uL (4.10-5.20); RDW 15.7 % (11.5-14.5); WBC 1.78 10*3/uL (4.50-10.00)
[2024-09-15 13:27] LABS: ALT 23 U/L (4-34); AST 37 U/L (14-36); African American GFR (CKD) >90 (>60 ml/min/1.73 sqM); Albumin 2.6 g/dL (3.5-5.0); Alkaline Phosphatase 78 U/L (38-126); Amylase 34 U/L (30-110); Anion Gap 4 mmol/L; Blood Urea Nitrogen 18 mg/dL (7-17); Calcium 8.4 mg/dL (8.4-10.2); Carbon Dioxide 26 mmol/L (22-30); Chloride 109 mmol/L (98-107); Glucose 114 mg/dL (74-99); Lipase 52 U/L (23-300); Non-African American GFR(CKD) >90 (>60 ml/min/1.73 sqM); Potassium 3.5 mmol/L (3.5-5.1); Sodium 139 mmol/L (137-145); Total Bilirubin 1.9 mg/dL (0.2-1.3); Total Protein 6.2 g/dL (6.3-8.2)
[2024-09-15 13:28] LABS: Lactic Acid, Venous 1.5 mmol/L (0.7-2.0)
[2024-09-15] MEDS: LACTATED RINGERS 1,000 ML IV ONE (13:55)
[2024-09-15 14:03] LABS: Platelet Count 50 10*3/uL (140-440)
--- NOTE | 2024-09-15 14:55 | CT ---
EXAMINATION TYPE: CT abdomen pelvis w con DATE OF EXAM: 09/15/2024 COMPARISON: 07/19/2024 CLINICAL INDICATION: Female, 59 years old with history of abdominal pain; [facility], Pt was seen here last night for abd pain was worked up and had benign exam pt dc'd back [facility] upon return pt had lar ge coffee ground emesis with continued abd pain. TECHNIQUE: Performed without Oral Contrast and with IV Contrast, patient injected with 100 ml mL of Isovue 300. CT DLP: 900.[address] CTDI: mGy Automated exposure control for dose reduction was used. FINDINGS: The lung bases are clear. There is surgical absence of the gallbladder. There is no biliary ductal dilatation. There is a stable cirrhotic liver and stable splenomegaly. There is moderate ascites. There is no solid renal mass or nephrosis. The cavity, aorta and bowel loops are normal in caliber. N o dilatation or obstruction. No pelvic mass or adenopathy. The osseous structures are intact. There is a stable lipoma in the proximal medial right thigh adductor muscles IMPRESSION: 1. Moderate ascites. 2. Stable cirrhotic liver and splenomegaly [facility], , 09/15/2024 2:53 PM
[2024-09-15] MEDS: SODIUM CHLORIDE 0.9% 1,000 ML IV ONE (18:52)
[2024-09-15 19:20] LABS: Appearance,Urine Clear (Clear); Bilirubin,Urine Negative (Negative); Blood,Urine Moderate (Negative); Color,Urine Yellow; Glucose,Urine (UA) Negative (Negative); Ketones,Urine Negative (Negative); Leukocyte Esterase,Urine Small (Negative); Mucus,Urine Many /hpf; Nitrite,Urine Positive (Negative); Protein,Urine Negative (Negative); RBC,Urine 4 /hpf (0-5); Squamous Epithelial Cell,Urine 2 /hpf (0-4); Urobilinogen,Urine <2.0 mg/dL (<2.0); WBC,Urine 18 /hpf (0-5)
--- NOTE | 2024-09-15 21:56 | HP ---
HISTORY AND PHYSICAL CHIEF COMPLAINT: Abdominal pain. This is another admission for this 59-year-old debilitated, chronically ill white female. She has been in and out of the hospital lately with numerous problems including falls, delirium, mental status changes and coma secondary to hyperammonemia. HISTORY OF PRESENT ILLNESS: This is another admission for this 59-year-old. She was in the hospital when she can no longer be managed by her family and eventually was transferred to a longterm. She then came back and comatose about a week or 10 days ago because her ammonia level was allowed to rise. She was started on lactulose and the level came down. She became more awake and alert, but still delirious and confused at times. She went back to the longterm. She then came in with other issues and was discharged back to the longterm. It was not clear at that time, if she was going to go to the longterm or home with a family member. She came in today from the longterm apparently because of abdominal pain. In the emergency room, her laboratory studies were unremarkable including her usual pancytopenia. However, she seemed to be very tender to palpation in the abdomen where CAT scan revealed only ascites. Because of her intense abdominal pain and tenderness and possible history of vomiting, she was readmitted. Past medical history, family history, personal and social histories are all otherwise unchanged. PHYSICAL EXAMINATION: VITAL SIGNS: Blood pressure is 101/58 with a pulse of 71 and regular. GENERAL: She almost appeared to be pale, dehydrated and chronically ill. HEAD, EARS, EYES, NOSE AND MOUTH: Normal. CHEST: Demonstrated breath sounds throughout without any rales or rhonchi. CARDIAC: Demonstrates sinus tachycardia. ABDOMEN: Slightly protuberant and she is quite tender, particularly in the right upper quadrant. There are no definite masses. EXTREMITIES: Revealed extremely poor muscle bulk. NEUROLOGICAL: She seemed agitated and at times, confused. IMPRESSION: 1. Acute abdominal pain. 2. Cirrhosis. 3. Ascites. 4. Hepatitis C. 5. Pancytopenia. 6. Severe protein-calorie malnutrition. 7. Dehydration. PLAN: 1. Bedrest. 2. IV fluids. 3. Consult with Gastroenterology and possibly Surgery. MMODL / IJN: [id number] /
[2024-09-15] MEDS ORDERED: PROMETHAZINE 25 MG TAB PO PRN (22:17)
[2024-09-15] MEDS ORDERED: ACETAMINOPHEN TAB 325 MG TAB PO PRN (22:17)
[2024-09-15] MEDS: LACTULOSE 20 GM/30 ML CUP PO SCH (22:36)
[2024-09-15] MEDS: HYDROmorphone 0.5 MG/0.5 ML SYRINGE IVP PRN (22:36)
[2024-09-15] MEDS ORDERED: ONDANSETRON 4 MG/2 ML VIAL IVP PRN (22:47)
[2024-09-16] MEDS: HYDROcodone/APAP 5-325MG 1 EACH TAB PO PRN (02:22)
[2024-09-16] MEDS: CALCIUM CARBONATE 500 MG CHEWABLE PO SCH (06:40)
[2024-09-16 07:19] LABS: INR 1.3 (<1.2); Partial Thromboplastin Time 28.8 sec (22.0-30.0); Prothrombin Time 13.5 sec (10.0-12.5)
[2024-09-16] MEDS: FUROSEMIDE 40 MG TAB PO SCH (08:27)
[2024-09-16] MEDS: PANTOPRAZOLE 40 MG/10 ML VIAL IVP SCH (08:27)
[2024-09-16] MEDS: SPIRONOLACTONE 25 MG TAB PO SCH (08:27)
[2024-09-16 09:46] LABS: % Iron Saturation 46.07 (12.00-45.00)
[2024-09-16 11:08] LABS: ALT 20 U/L (4-34); AST 33 U/L (14-36); African American GFR (CKD) >90 (>60 ml/min/1.73 sqM); Albumin 2.1 g/dL (3.5-5.0); Albumin/Globulin Ratio 0.7; Alkaline Phosphatase 61 U/L (38-126); Anion Gap 4 mmol/L; Blood Urea Nitrogen 17 mg/dL (7-17); Calcium 7.8 mg/dL (8.4-10.2); Carbon Dioxide 21 mmol/L (22-30); Chloride 112 mmol/L (98-107); Globulin 3.2 g/dL; Glucose 80 mg/dL (74-99); Magnesium 1.7 mg/dL (1.6-2.3); Non-African American GFR(CKD) >90 (>60 ml/min/1.73 sqM); Potassium 3.2 mmol/L (3.5-5.1); Sodium 137 mmol/L (137-145); Total Bilirubin 1.8 mg/dL (0.2-1.3); Total Protein 5.3 g/dL (6.3-8.2)
[2024-09-16 11:16] LABS: HCT 23.6 % (37.2-46.3); HGB 7.8 g/dL (12.0-15.0); MCH 35.8 pg (27.0-32.0); MCHC 33.1 g/dL (32.0-37.0); MCV 108.3 fL (80.0-97.0); Mean Platelet Volume 13.5 fL (9.5-12.2); RBC 2.18 10*6/uL (4.10-5.20); RDW 15.7 % (11.5-14.5); WBC 1.65 10*3/uL (4.50-10.00)
[2024-09-16 12:08] LABS: Eosinophils # (M) 0.05 k/uL (0-0.7); Lymphocytes # (M) 0.61 k/uL (1.0-4.8); Monocytes # (M) 0.17 k/uL (0-1.0); Neutrophils # (M) 0.83 k/uL (1.3-7.7); Neutrophils % (M) 50 %; Nucleated Red Blood Cells 0 /100 WBC (0-0); Platelet Count 46 10*3/uL (140-440); Total Cells Counted 100
[2024-09-16 12:12] LABS: Macrocytosis P
--- NOTE | 2024-09-16 12:20 | P.CONS ---
History of Present Illness - Reason for Consult Consult date: 09/16/24 Hematemesis, abdominal pain Requesting physician: Noah Fatima - Chief Complaint Abdominal pain - History of Present Illness This is 59-year-old female that seems very drowsy at this time is somewhat poor historian who reportedly came in secondary to having abdominal pain and one-time emesis possibly with coffee-ground appearance sent in from [facility]. Patient has past medical history of liver cirrhosis secondary to hepatitis C. Does have reported history of esophageal varices in the past last documented upper endoscopy was around 2016 with esophageal varices without any active bleeding or recent stigmata for bleeding. History of ascites previous paracen tesis last 1 about a month ago. Patient admitted with positive urinary tract infection. She states that she usually has to have a paracentesis every 6 to 8 months. She does not follow regularly with gastroenterology but her PCP. Patient reports that she vomited 10 times however nursing is at the bedside and states patient had no emesis during this hospitalization. Patient with pancytopenia, macrocytic anemia hypercoagulability INR 1.3 all consistent with underlying liver disease. Nursing also reporting patient had 2 bowel movements that were normal brown in color. CT abdomen pelvis with contrast with no acute findings. Moderate ascites stable cirrhotic liver and splenomegaly. Review of Systems ROS unobtainable: due to mental status (Patient is sleepy, and interacting with us at exam.) Past Medical History Past Medical History: Cancer, COPD, GERD/Reflux, GI Bleed, Hearing Disorder / Deafness, Liver Disease Additional Past Medical History / Comment(s): Hepatitis C, intractable ascities with multiple paracentesis, cirrhosis, peritonitis, pancytopenia, vertigo once; multiple upper GI bleeds, esophageal varicies/esophageal banding, left breast cancer had chemo last on 09-12-16-did not tolerate-completed only 3 cycles-then it was stopped/received radiation treatments/pt states she did not follow up and so did not have surgery, lt ear deafness, R ear KASAAN, occasional R leg edema, recent admission for hepatic encephalopathy 08/18/24 through 08/27/24, calcified abdominal aorta, metabolic alkalosis, pulm htn, portal vein thrombosis, pancreatitis, cholelithiasis History of Any Multi-Drug Resistant Organisms: None Reported Past Surgical History: Adenoidectomy, Breast Surgery, Tonsillectomy Additional Past Surgical History / Comment(s): Multiple paracentesises, EGDs, esophageal banding x2, right chest mediport since removed, l breast bx., Past Anesthesia/Blood Transfusion Reactions: No Reported Reaction Additional Past Anesthesia/Blood Transfusion Reaction / Comm: Blood transfusions-no reaction Past Psychological History: Anxiety Additional Psychological History / Comment(s): Patient lives with her son. She is currently on disability. She gets to [facility] by cab or her daughters boyfriend. Smoking Status: Current every day smoker Past Alcohol Use History: None Reported Additional Past Alcohol Use History / Comment(s): Patient started smoking at age 14. She was a ppd smoker but cut back to one to 1-3 cigarettes per day in 2017. Patient's daughter states she has never drank alcohol. Past Drug Use History: None Reported - Past Family History Mother Family Medical History: Cancer Additional Family Medical History / Comment(s): of lung ca at the age of 59yrs. She was a smoker. Father Family Medical History: Myocardial Infarction ([place]) Additional Family Medical History / Comment(s): from 2nd heart attack at the age of 59yrs. Medications and Allergies Home Medications Medication Instructions Recorded Confirmed Type Thiamine [Vitamin B-1] 100 mg PO HS 08/18/24 09/15/24 History Acetaminophen [Tylenol 8 Hour] 650 mg PO Q6H PRN 09/04/24 09/15/24 History Calcium Carbonate [Tums] 500 mg PO TID@,,09/04/24 09/15/24 History Folic Acid 0.8 mg PO HS 09/04/24 09/15/24 History Promethazine HCl 12.5 mg PO Q6H PRN 09/04/24 09/15/24 History Furosemide [Lasix] 40 mg PO DAILY 09/15/24 09/15/24 History HYDROmorphone [Dilaudid] 2 mg PO Q6H PRN 09/15/24 09/15/24 History Lactulose [Cephulac] 30 gm PO QID@,,,09/15/24 09/15/24 History Naloxone 0.4mg/Ml Injection 0.4 mg IM ONCE PRN 09/15/24 09/15/24 History Naloxone HCl [Narcan] 4 mg NASAL ONCE PRN 09/15/24 09/15/24 History Spironolactone [Aldactone] 50 mg PO DAILY 09/15/24 09/15/24 History Allergies Allergy/AdvReac Type Severity Reaction Status Date / Time No Known Allergies Allergy Verified 09/15/24 18:38 Physical Exam Vitals: Vital Signs Temp Pulse Pulse Resp BP BP Pulse Ox 09/16/24 07:00 98.4 F 84 16 96/57 96 09/15/24 22:35 98.2 F 89 15 114/64 97 09/15/24 21:54 97.1 F L 09/15/24 21:19 87 18 108/67 95 09/15/24 19:06 94 18 111/60 95 09/15/24 18:49 89 18 108/55 97 09/15/24 15:41 66 16 110/67 98 09/15/24 12:55 98.2 F 65 20 112/55 96 Intake and Output 09/15/24 09/16/24 09/16/24 22:59 06:59 14:59 Other: Voiding Method Diaper Incontinent # Voids 3 # Bowel Movements 2 Weight 63.503 kg General appearance: The patient is a sleepy but arousable, appears in no acute distress. HET: Head is normocephalic and atraumatic. Conjunctiva pink. Sclera anicteric. Neck: Supple without lymphadenopathy. Trachea midline. Heart: Regular. Lungs: Equal expansion, normal respiratory effort. Abdomen: Soft, nontender, nondistended. Minimal ascites. Skin: No rashes. No jaundice. Extremities: Normal skin color and turgor. No pedal edema. Neurological: Drowsy but arousable, not very interactive. Results CBC & Chem 7: 09/16/24 05:45 09/16/24 05:45 Labs: Abnormal Lab Results - Last 24 Hours (Table) 09/15/24 09/15/24 09/15/24 Range/Units 13:05 13:05 13:05 WBC 1.78 L (4.50-10.00) 10*3/uL RBC 2.45 L (4.10-5.20) 10*6/uL Hgb 8.8 L (12.0-15.0) g/dL Hct 26.3 L (37.2-46.3) % MCV 107.3 H (80.0-97.0) fL MCH 35.9 H (27.0-32.0) pg RDW (11.5-14.5) % Plt Count 50 L (140-440) 10*3/uL MPV (9.5-12.2) fL Neutrophils # 1.03 L (1.80-7.70) 10*3/uL Lymphocytes # 0.50 L (0.90-5.00) 10*3/uL Eosinophils # 0.02 L (0.04-0.35) 10*3/uL PT (10.0-12.5) sec INR (<1.2) Potassium (3.5-5.1) mmol/L Chloride 109 H (98-107) mmol/L Carbon Dioxide (22-30) mmol/L BUN 18 H (7-17) mg/dL Glucose 114 H (74-99) mg/dL Calcium (8.4-10.2) mg/dL TIBC 178 L (228-460) UG/DL % Saturation 46.07 H (12.00-45.00) Transferrin 127.0 L (204.0-354.0) mg/dL Total Bilirubin 1.9 H (0.2-1.3) mg/dL AST 37 H (14-36) U/L Total Protein 6.2 L (6.3-8.2) g/dL Albumin 2.6 L (3.5-5.0) g/dL Ur Specific [place] (1.001-1.035) Urine Blood (Negative) Urine Nitrite (Negative) Ur Leukocyte Esterase (Negative) Urine WBC (0-5) /hpf Urine Mucus (None) /hpf 09/15/24 09/16/24 09/16/24 Range/Units 19:07 05:45 05:45 WBC 1.65 L (4.50-10.00) 10*3/uL RBC 2.18 L (4.10-5.20) 10*6/uL Hgb 7.8 L (12.0-15.0) g/dL Hct 23.6 L (37.2-46.3) % MCV 108.3 H (80.0-97.0) fL MCH 35.8 H (27.0-32.0) pg RDW 15.7 H (11.5-14.5) % Plt Count 46 L (140-440) 10*3/uL MPV 13.5 H (9.5-12.2) fL Neutrophils # (1.80-7.70) 10*3/uL Lymphocytes # (0.90-5.00) 10*3/uL Eosinophils # (0.04-0.35) 10*3/uL PT 13.5 H (10.0-12.5) sec INR 1.3 H (<1.2) Potassium (3.5-5.1) mmol/L Chloride (98-107) mmol/L Carbon Dioxide (22-30) mmol/L BUN (7-17) mg/dL Glucose (74-99) mg/dL Calcium (8.4-10.2) mg/dL TIBC (228-460) UG/DL % Saturation (12.00-45.00) Transferrin (204.0-354.0) mg/dL Total Bilirubin (0.2-1.3) mg/dL AST (14-36) U/L Total Protein (6.3-8.2) g/dL Albumin (3.5-5.0) g/dL Ur Specific [place] 1.050 H (1.001-1.035) Urine Blood Moderate H (Negative) Urine Nitrite Positive H (Negative) Ur Leukocyte Esterase Small H (Negative) Urine WBC 18 H (0-5) /hpf Urine Mucus Many H (None) /hpf 09/16/24 Range/Units 05:45 WBC (4.50-10.00) 10*3/uL RBC (4.10-5.20) 10*6/uL Hgb (12.0-15.0) g/dL Hct (37.2-46.3) % MCV (80.0-97.0) fL MCH (27.0-32.0) pg RDW (11.5-14.5) % Plt Count (140-440) 10*3/uL MPV (9.5-12.2) fL Neutrophils # (1.80-7.70) 10*3/uL Lymphocytes # (0.90-5.00) 10*3/uL Eosinophils # (0.04-0.35) 10*3/uL PT (10.0-12.5) sec INR (<1.2) Potassium 3.2 L (3.5-5.1) mmol/L Chloride 112 H (98-107) mmol/L Carbon Dioxide 21 L (22-30) mmol/L BUN (7-17) mg/dL Glucose (74-99) mg/dL Calcium 7.8 L (8.4-10.2) mg/dL TIBC (228-460) UG/DL % Saturation (12.00-45.00) Transferrin (204.0-354.0) mg/dL Total Bilirubin 1.8 H (0.2-1.3) mg/dL AST (14-36) U/L Total Protein 5.3 L (6.3-8.2) g/dL Albumin 2.1 L (3.5-5.0) g/dL Ur Specific [place] (1.001-1.035) Urine Blood (Negative) Urine Nitrite (Negative) Ur Leukocyte Esterase (Negative) Urine WBC (0-5) /hpf Urine Mucus (None) /hpf Assessment and Plan (1) Abdominal pain Narrative/Plan: 59-year-old female with known history of decompensated cirrhosis of the liver with ascites and history of esophageal varices secondary to portal hypertension who was complaining of abdominal pain. Patient has no leukocytosis she actually has pancytopenia, macrocytic anemia consistent with anemia of chronic disease. Nursing is reported no vomiting, no coffee-ground emesis. Abdomen is soft minimal ascites palpated. No further workup from gastroenterology. No plans on endoscopic evaluation. Current Visit: Yes Status: Acute Code(s): R10.9 - UNSPECIFIED ABDOMINAL PAIN SNOMED Code(s): 24160177 (2) Anemia Narrative/Plan: Labs are consistent with macrocytic anemia, pancytopenia secondary to underlying liver disease without any signs of GI bleed. Current Visit: Yes Status: Acute Code(s): D64.9 - ANEMIA, UNSPECIFIED SNOMED Code(s): 828717876 (3) Cirrhosis of liver with ascites Current Visit: Yes Status: Acute Code(s): K74.60 - UNSPECIFIED CIRRHOSIS OF LIVER; R18.8 - OTHER ASCITES SNOMED Code(s): 28888450 (4) Pancytopenia Current Visit: No Status: Chronic Priority: Medium Code(s): D61.818 - OTHER PANCYTOPENIA SNOMED Code(s): 365803539 Plan: 1. Continue symptomatic and supportive care 2. Protonix 40 mg daily for GI prophylaxis 3. Patient may have low-sodium diet 4. Continue Aldactone 50 mg daily and Lasix 40 mg daily 5. No further workup from gastroenterology. No plans on upper endoscopy. Thank you for this consultation, patient is cleared from gastroenterology for discharge. We will sign off at this time. Dr. Justice Botello I agree with the dictator's note, documented as a scribe by Erin Arnett.
[2024-09-16] MEDS ORDERED: Magnesium Replacement Protocol 1 EACH MISC MISCELLANE PRN (13:38)
--- NOTE | 2024-09-16 13:52 | P.PN ---
Subjective Progress Note Date: 09/16/24 This is a pleasant 59-year-old female patient of Dr. Duvall. Patient comes to the hospital from the [facility] with complaints of coffee-ground emesis and abdominal discomfort. Today she was reporting feeling hungry currently on a clear liquid diet however upon palpation her abdomen is quite tender. Patient has known history of hepatitis C as well as abdominal ascites and liver cirrhosis with chronic pancytopenia. Patient was found to have moderate ascites on abdominal imaging and will be going for a paracentesis today. She does have a history of frequent paracentesis because of the abdominal ascites. Patient has been continued on lactulose 4 times daily with her most recent ammonia level less than 9 on admission. Her bilirubin is down to 1.8 and her AST has normalized at 33. Her blood counts today are stable. Potassium today was 3.2. Magnesium 1.7 Review of Systems Constitutional: Denied any fatigue denied any fever. Cardio vascular: denied any chest pain, palpitations Gastrointestinal: denied any nausea, vomiting, diarrhea reports abdominal pain and hunger Pulmonary: Denied any shortness of breath cough Neurologic denied any new focal deficits All inpatient medications were reviewed and appropriate changes in these medications as dictated in the interval history and assessment and plan. PHYSICAL EXAMINATION: GENERAL: The patient is alert and oriented x3, not in any acute distress. Well developed, well nourished. HEENT: Pupils are round and equally reacting to light. EOMI. No scleral icterus. No conjunctival pallor. Normocephalic, atraumatic. No pharyngeal erythema. No thyromegaly. CARDIOVASCULAR: S1 and S2 present. No murmurs, rubs, or gallops. PULMONARY: Chest is clear to auscultation, no wheezing or crackles. ABDOMEN: Soft, tender, mildly distended, normoactive bowel sounds. No palpable organomegaly. MUSCULOSKELETAL: No joint swelling or deformity. EXTREMITIES: No cyanosis, clubbing, or pedal edema. NEUROLOGICAL: Gross neurological examination did not reveal any focal deficits. SKIN: No rashes. Assessment Intractable abdominal pain worse with palpation History of abdominal ascites requiring frequent paracentesis History of liver cirrhosis History of hepatitis C Pancytopenia because of the liver disease Hypokalemia because of poor oral intake Hypomagnesemia because of poor oral intake GI prophylaxis: IV protonix Plan Continue supportive care with IV dialudid oral norco Clear liquid diet low sodium and advance as tolerated Continue oral aldactone and oral lasix Continue lactulose QID Pending PT evaluation and social work for DC planning Return to ECF on discharge The impression and plan of care has been dictated by Candice Lancaster, Nurse Practitioner as directed. Dr. Kieran MD I have performed a history and physical examination and medical decision making of this patient, discussed the same with the dictator, and agree with the dictators assessment and plan as written, documented as a scribe. Based on total visit time, I have performed more than 50% of this visit. Objective - Vital Signs Vital signs: Vital Signs Temp 98.4 F 09/16/24 07:00 Pulse 84 09/16/24 07:00 Resp 16 09/16/24 07:00 BP 96/57 09/16/24 07:00 Pulse Ox 96 09/16/24 07:00 FiO2 Intake & Output 09/15/24 09/16/24 09/16/24 18:59 06:59 18:59 Weight 63.503 kg 63.503 kg Other: Voiding Method Diaper Incontinent # Voids 3 # Bowel Movements 2 - Labs CBC & Chem 7: 09/16/24 05:45 09/16/24 05:45 Labs: Abnormal Lab Results - Last 24 Hours (Table) 09/15/24 09/15/24 09/15/24 Range/Units 13:05 13:05 19:07 WBC (4.50-10.00) 10*3/uL RBC (4.10-5.20) 10*6/uL Hgb (12.0-15.0) g/dL Hct (37.2-46.3) % MCV (80.0-97.0) fL MCH (27.0-32.0) pg RDW (11.5-14.5) % Plt Count 50 L (140-440) 10*3/uL MPV (9.5-12.2) fL Neutrophils # 1.03 L (1.80-7.70) 10*3/uL Neutrophils # (Manual) (1.3-7.7) k/uL Lymphocytes # 0.50 L (0.90-5.00) 10*3/uL Lymphocytes # (Manual) (1.0-4.8) k/uL Eosinophils # 0.02 L (0.04-0.35) 10*3/uL PT (10.0-12.5) sec INR (<1.2) Potassium (3.5-5.1) mmol/L Chloride (98-107) mmol/L Carbon Dioxide (22-30) mmol/L Calcium (8.4-10.2) mg/dL TIBC 178 L (228-460) UG/DL % Saturation 46.07 H (12.00-45.00) Transferrin 127.0 L (204.0-354.0) mg/dL Total Bilirubin (0.2-1.3) mg/dL Total Protein (6.3-8.2) g/dL Albumin (3.5-5.0) g/dL Ur Specific [place] 1.050 H (1.001-1.035) Urine Blood Moderate H (Negative) Urine Nitrite Positive H (Negative) Ur Leukocyte Esterase Small H (Negative) Urine WBC 18 H (0-5) /hpf Urine Mucus Many H (None) /hpf 09/16/24 09/16/24 09/16/24 Range/Units 05:45 05:45 05:45 WBC 1.65 L (4.50-10.00) 10*3/uL RBC 2.18 L (4.10-5.20) 10*6/uL Hgb 7.8 L (12.0-15.0) g/dL Hct 23.6 L (37.2-46.3) % MCV 108.3 H (80.0-97.0) fL MCH 35.8 H (27.0-32.0) pg RDW 15.7 H (11.5-14.5) % Plt Count 46 L (140-440) 10*3/uL MPV 13.5 H (9.5-12.2) fL Neutrophils # (1.80-7.70) 10*3/uL Neutrophils # (Manual) 0.83 L (1.3-7.7) k/uL Lymphocytes # (0.90-5.00) 10*3/uL Lymphocytes # (Manual) 0.61 L (1.0-4.8) k/uL Eosinophils # (0.04-0.35) 10*3/uL PT 13.5 H (10.0-12.5) sec INR 1.3 H (<1.2) Potassium 3.2 L (3.5-5.1) mmol/L Chloride 112 H (98-107) mmol/L Carbon Dioxide 21 L (22-30) mmol/L Calcium 7.8 L (8.4-10.2) mg/dL TIBC (228-460) UG/DL % Saturation (12.00-45.00) Transferrin (204.0-354.0) mg/dL Total Bilirubin 1.8 H (0.2-1.3) mg/dL Total Protein 5.3 L (6.3-8.2) g/dL Albumin 2.1 L (3.5-5.0) g/dL Ur Specific [place] (1.001-1.035) Urine Blood (Negative) Urine Nitrite (Negative) Ur Leukocyte Esterase (Negative) Urine WBC (0-5) /hpf Urine Mucus (None) /hpf Assessment and Plan Time with Patient: Less than 30
[2024-09-16] MEDS: MAGNESIUM SULFATE-D5W PMX 1 GM in DEXTROSE/WATER 1 100ML.BAG IVPB ONE (14:06)
[2024-09-16] MEDS: POTASSIUM CHLORIDE ER 20 MEQ TAB.ER PO SCH (14:06)
--- NOTE | 2024-09-16 15:45 | P.DS ---
Providers Date of admission: 09/15/24 18:19 Attending physician: Mark Estrada Consults: 09/15/24 18:19 Consult Physician Urgent Consulting Provider: Cyndi Botello Consult Reason/Comments: Abdominal pain, hematemesis Do you want consulting provider notified?: Yes Primary care physician: Mark Estrada Hospital Course: Final Diagnosis Intractable abdominal pain worse with palpation History of abdominal ascites requiring frequent paracentesis History of liver cirrhosis History of hepatitis C Pancytopenia because of the liver disease Hypokalemia because of poor oral intake Hypomagnesemia because of poor oral intake GI prophylaxis: IV protonix Discharge Disposition Patient stable for return to [facility]. Continue Lactulose 4 times daily. Continue paracentesis as needed. Continue Protonix. Repeat blood work 2 to 3 days. Follow up with GI services and Dr Estrada on discharge. Hospital Course This is a pleasant 59-year-old female patient of Dr. Estrada's. Patient comes to the hospital from the [facility] with complaints of coffee-ground emesis and abdominal discomfort. Today she was reporting feeling hungry currently on a clear liquid diet. Patient has known history of hepatitis C as well as abdominal ascites and liver cirrhosis with chronic pancytopenia. Patient was found to have moderate ascites on abdominal imaging no plans for paracentesis per GI consultation. She does have a history of frequent paracentesis because of the abdominal ascites. Patient has been continued on lactulose 4 times daily with her most recent ammonia level less than 9 on admission. Her bilirubin is down to 1.8 and her AST has normalized at 33. Her blood counts today are stable. Potassium today was 3.2. Magnesium 1.7. Amylase and lipase were normal. she has had multiple normal soft brown BMs and no signs of coffee ground emesis this admission. Patient was eval by GI services and cleared for discharge. Please see medication reconciliation for a list of current medications. Thank you for allowing us to participate in the care of this patient. The impression and plan of care has been dictated by Candice Lancaster, Nurse Practitioner as directed. Dr. Kieran MD I have performed a history and physical examination and medical decision making of this patient, discussed the same with the dictator, and agree with the dictators assessment and plan as written, documented as a scribe. Based on total visit time, I have performed more than 50% of this visit. Patient Condition at Discharge: Fair Plan - Discharge Summary New Discharge Prescriptions: Continue Promethazine HCl 12.5 mg PO Q6H PRN PRN Reason: Nausea And Vomiting Calcium Carbonate [Tums] 500 mg PO TID@,, Naloxone HCl [Narcan] 4 mg NASAL ONCE PRN PRN Reason: suspected overdose Naloxone 0.4mg/Ml Injection 0.4 mg IM ONCE PRN PRN Reason: suspected overdose HYDROmorphone [Dilaudid] 2 mg PO Q6H PRN #4 tab PRN Reason: Pain Thiamine [Vitamin B-1] 100 mg PO HS Folic Acid 0.8 mg PO HS Acetaminophen [Tylenol 8 Hour] 650 mg PO Q6H PRN PRN Reason: Pain Lactulose [Cephulac] 30 gm PO QID@,,, Furosemide [Lasix] 40 mg PO DAILY Spironolactone [Aldactone] 50 mg PO DAILY Discharge Medication List Thiamine [Vitamin B-1] 100 mg PO HS 08/18/24 [History] Acetaminophen [Tylenol 8 Hour] 650 mg PO Q6H PRN 09/04/24 [History] Calcium Carbonate [Tums] 500 mg PO TID@,09/04/24 [History] Folic Acid 0.8 mg PO HS 09/04/24 [History] Promethazine HCl 12.5 mg PO Q6H PRN 09/04/24 [History] Furosemide [Lasix] 40 mg PO DAILY 09/15/24 [History] Lactulose [Cephulac] 30 gm PO QID@,,09/15/24 [History] Naloxone 0.4mg/Ml Injection 0.4 mg IM ONCE PRN 09/15/24 [History] Naloxone HCl [Narcan] 4 mg NASAL ONCE PRN 09/15/24 [History] Spironolactone [Aldactone] 50 mg PO DAILY 09/15/24 [History] HYDROmorphone [Dilaudid] 2 mg PO Q6H PRN #4 tab 09/16/24 [Rx] Follow up Appointment(s)/Referral(s): Mark Estrada MD [Primary Care Provider] - 1-2 days Cyndi Botello MD [STAFF PHYSICIAN] - 1 Week Activity/Diet/Wound Care/Special Instructions: 2000 mg low sodium diet to continue on discharge Diet as tolerated Continue oral dilaudid as prior Discharge Disposition: TRANSFER TO SNF/ECF
[2024-09-16] MEDS: FOLIC ACID 1 MG TAB PO SCH (20:55)
[2024-09-16] MEDS: THIAMINE 100 MG TAB PO SCH (20:55)
[2024-09-17 09:21] VITALS: BP 114/72; PULSE 78; RESP 18; TEMP 97.8
[2024-09-17 09:42] LABS: BUN/Creat Ratio 19.71 Ratio (12.00-20.00); Blood Urea Nitrogen 13.8 mg/dL (9.0-27.0); Calcium 7.3 mg/dL (8.7-10.3); Carbon Dioxide 20.2 mmol/L (21.6-31.8); Chloride 114 mmol/L (96-109); Glucose 86 mg/dL (70-110); Magnesium 1.9 mg/dL (1.5-2.4); Sodium 142 mmol/L (135-145)
[2024-09-17 10:24] LABS: Basophils # (A) 0.01 X 10*3/uL (0.00-0.10); Basophils % (A) 0.6 %; Eosinophils # (A) 0.09 X 10*3/uL (0.04-0.35); Eosinophils % (A) 5.2 %; HCT 25.7 % (37.2-46.3); HGB 8.3 g/dL (12.0-15.0); Immature Grans, Automated 0 %; Lymphocytes # (A) 0.84 X 10*3/uL (0.90-5.00); Lymphocytes % (A) 48.8 %; MCH 35.3 pg (27.0-32.0); MCHC 32.3 g/dL (32.0-37.0); MCV 109.4 FL (80.0-97.0); Mean Platelet Volume 12.4 FL (9.5-12.2); Monocytes # (A) 0.26 X 10*3/uL (0.20-1.00); Monocytes % (A) 15.1 %; NRBC Per 100 WBC 0 X 10*3/uL (0.00-0.01); Neutrophils # (A) 0.52 X 10*3/uL (1.80-7.70); Neutrophils % (A) 30.3 %; Platelet Count 51 X 10*3/uL (140-440); RBC 2.35 X 10*6/uL (4.10-5.20); RDW 15.7 % (11.5-14.5); WBC 1.72 X 10*3/uL (4.50-10.00)
--- NOTE | 2024-09-19 22:05 | P.DS ---
Providers Date of admission: 09/15/24 18:19 Attending physician: Mark Estrada Consults: 09/15/24 18:19 Consult Physician Urgent Consulting Provider: Cyndi Botello Consult Reason/Comments: Abdominal pain, hematemesis Do you want consulting provider notified?: Yes Primary care physician: Mark Estrada Hospital Course: Final Diagnosis Intractable abdominal pain worse with palpation History of abdominal ascites requiring frequent paracentesis History of liver cirrhosis History of hepatitis C Pancytopenia because of the liver disease Hypokalemia because of poor oral intake Hypomagnesemia because of poor oral intake GI prophylaxis: IV protonix Discharge Disposition Patient stable for return to [facility]. Continue Lactulose 4 times daily. Continue paracentesis as needed. Continue Protonix. Repeat blood work 2 to 3 days. Follow up with GI services and Dr Estrada on discharge. Hospital Course This is a pleasant 59-year-old female patient of Dr. Estrada's. Patient comes to the hospital from the [facility] with complaints of coffee-ground emesis and abdominal discomfort. Today she was reporting feeling hungry currently on a clear liquid diet. Patient has known history of hepatitis C as well as abdominal ascites and liver cirrhosis with chronic pancytopenia. Patient was found to have moderate ascites on abdominal imaging no plans for paracentesis per GI consultation. She does have a history of frequent paracentesis because of the abdominal ascites. Patient has been continued on lactulose 4 times daily with her most recent ammonia level less than 9 on admission. Her bilirubin is down to 1.8 and her AST has normalized at 33. Her blood counts today are stable. Potassium today was 3.2. Magnesium 1.7. Amylase and lipase were normal. she has had multiple normal soft brown BMs and no signs of coffee ground emesis this admission. Patient was eval by GI services and cleared for discharge. 09/16/2024 Patient evaluated today in follow up prior to [facility]. Her abdominal pain is improving. She is tolerating diet and reporting improved abdominal pain. Pt to discharge to [facility]. Please see medication reconciliation for a list of current medications. Thank you for allowing us to participate in the care of this patient. The impression and plan of care has been dictated by Candice Lancaster, Nurse Practitioner as directed. Dr. Kieran MD I have performed a history and physical examination and medical decision making of this patient, discussed the same with the dictator, and agree with the dictators assessment and plan as written, documented as a scribe. Based on total visit time, I have performed more than 50% of this visit. Patient Condition at Discharge: Fair Plan - Discharge Summary New Discharge Prescriptions: New Pantoprazole [Protonix] 40 mg PO DAILY #30 tab Continue Promethazine HCl 12.5 mg PO Q6H PRN PRN Reason: Nausea And Vomiting Calcium Carbonate [Tums] 500 mg PO TID@,, Naloxone HCl [Narcan] 4 mg NASAL ONCE PRN PRN Reason: suspected overdose Naloxone 0.4mg/Ml Injection 0.4 mg IM ONCE PRN PRN Reason: suspected overdose HYDROmorphone [Dilaudid] 2 mg PO Q6H PRN #4 tab PRN Reason: Pain Thiamine [Vitamin B-1] 100 mg PO HS Folic Acid 0.8 mg PO HS Acetaminophen [Tylenol 8 Hour] 650 mg PO Q6H PRN PRN Reason: Pain Lactulose [Cephulac] 30 gm PO QID@,, Furosemide [Lasix] 40 mg PO DAILY Spironolactone [Aldactone] 50 mg PO DAILY Discharge Medication List Thiamine [Vitamin B-1] 100 mg PO HS 08/18/24 [History] Acetaminophen [Tylenol 8 Hour] 650 mg PO Q6H PRN 09/04/24 [History] Calcium Carbonate [Tums] 500 mg PO TID@,,09/04/24 [History] Folic Acid 0.8 mg PO HS 09/04/24 [History] Promethazine HCl 12.5 mg PO Q6H PRN 09/04/24 [History] Furosemide [Lasix] 40 mg PO DAILY 09/15/24 [History] Lactulose [Cephulac] 30 gm PO QID@,,09/15/24 [History] Naloxone 0.4mg/Ml Injection 0.4 mg IM ONCE PRN 09/15/24 [History] Naloxone HCl [Narcan] 4 mg NASAL ONCE PRN 09/15/24 [History] Spironolactone [Aldactone] 50 mg PO DAILY 09/15/24 [History] HYDROmorphone [Dilaudid] 2 mg PO Q6H PRN #4 tab 06/13/25 [Rx] Pantoprazole [Protonix] 40 mg PO DAILY #30 tab 09/16/24 [Rx] Follow up Appointment(s)/Referral(s): Mark Estrada MD [Primary Care Provider] - 1-2 days Cyndi Botello MD [STAFF PHYSICIAN] - 1 Week Ambulatory/Diagnostic Orders: Complete Blood Count w/diff [LAB.AMB] Time Frame: 3 Days, Location: None Selected Comprehensive Metabolic Panel [LAB.AMB] Location: None Selected Magnesium [LAB.AMB] Location: None Selected Activity/Diet/Wound Care/Special Instructions: 2000 mg low sodium diet to continue on discharge Diet as tolerated Continue oral dilaudid as prior Discharge Disposition: TRANSFER TO SNF/ECF
== END 2024-09-17 12:51 ==
LOC: EC 11:45 → 4SSUR 18:19
PROVIDERS: ADMIT Family Medicine; ATTEND Family Medicine
DX: K92.0 Hematemesis (principal); R18.8 Other ascites; K74.69 Other cirrhosis of liver; E86.0 Dehydration; E43 Unspecified severe protein-calorie malnutrition; N39.0 Urinary tract infection, site not specified; D61.818 Other pancytopenia; E87.6 Hypokalemia; E83.42 Hypomagnesemia; K76.82 Hepatic encephalopathy; B19.20 Unspecified viral hepatitis C without hepatic coma; T47.3X6A Underdosing of saline and osmotic laxatives, initial encounter; Z91.128 Patient's intentional underdosing of medication regimen for other reason; I85.00 Esophageal varices without bleeding; R16.1 Splenomegaly, not elsewhere classified; R79.1 Abnormal coagulation profile; K76.6 Portal hypertension; F17.210 Nicotine dependence, cigarettes, uncomplicated; Z79.899 Other long term (current) drug therapy; Z91.81 History of falling
CPT/HCPCS: 96376 ×2; 96361 ×3; 96365; 96366; 96375 ×2; 99285; 36415; 80053 ×2; 80048; 82607; 82728; 82140; 82150; 82746; 83540; 83550; 83605; 83690; 83735 ×2; 85025 ×3; 85610; 85730; 81001; 74177; G0378 ×3; J3475; J1171 ×2; Q9967; J2470 ×2; 96374

== ENCOUNTER 2024-11-01 19:45 | Emergency (ER) | payer MEDICARE, OTHER ==
[2024-11-01 20:03] VITALS: TEMP 100
--- NOTE | 2024-11-01 20:26 | ED ---
Dizziness HPI - General Source: patient Mode of arrival: ambulatory Limitations: no limitations <Tevin Urbina - Last Filed: 11/01/24 20:24> <Francisco Joe - Last Filed: 11/02/24 00:04> - General Chief Complaint: Dizziness Stated Complaint: Dizziness Time Seen by Provider: 11/01/24 20:25 - History of Present Illness Initial Comments: Quick note: 59-year-old female presented chief complaint of dizziness. Patient reports that she has been feeling dizzy for few weeks. No chest pain or difficulty breathing. Reports that today she spilled her lactulose because she was dizzy. (Tevin Urbina) 59-year-old female reporting chronic dizziness stating that she needs a refill on her lactulose after spilling this medication. She denies any acute issue and is simply requesting refill at this time. (Francisco Joe) - Related Data Home Medications Medication Instructions Recorded Confirmed Thiamine [Vitamin B-1] 100 mg PO HS 08/18/24 09/15/24 Acetaminophen [Tylenol 8 Hour] 650 mg PO Q6H PRN 09/04/24 09/15/24 Calcium Carbonate [Tums] 500 mg PO TID@,,09/04/24 09/15/24 Folic Acid 0.8 mg PO HS 09/04/24 09/15/24 Promethazine HCl 12.5 mg PO Q6H PRN 09/04/24 09/15/24 Furosemide [Lasix] 40 mg PO DAILY 09/15/24 09/15/24 Lactulose [Cephulac] 30 gm PO QID@,,,09/15/24 09/15/24 Naloxone 0.4mg/Ml Injection 0.4 mg IM ONCE PRN 09/15/24 09/15/24 Naloxone HCl [Narcan] 4 mg NASAL ONCE PRN 09/15/24 09/15/24 Spironolactone [Aldactone] 50 mg PO DAILY 09/15/24 09/15/24 Previous Rx's Medication Instructions Recorded HYDROmorphone [Dilaudid] 2 mg PO Q6H PRN #4 tab 09/16/24 Pantoprazole [Protonix] 40 mg PO DAILY #30 tab 09/16/24 Lactulose [Cephulac] 20 gm PO QID 30 Days #3600 ml 11/02/24 Allergies Allergy/AdvReac Type Severity Reaction Status Date / Time No Known Allergies Allergy Verified 11/01/24 20:03 Review of Systems ROS Other: All systems not noted in ROS Statement are negative. <Tevin Urbina - Last Filed: 11/01/24 20:24> ROS Other: All systems not noted in ROS Statement are negative. <Francisco Joe - Last Filed: 11/02/24 00:04> ROS Statement: Those systems with pertinent positive or pertinent negative responses have been documented in the HPI. Past Medical History Past Medical History: Cancer, COPD, GERD/Reflux, GI Bleed, Hearing Disorder / Deafness, Liver Disease Additional Past Medical History / Comment(s): Hepatitis C, intractable ascities with multiple paracentesis, cirrhosis, peritonitis, pancytopenia, vertigo once; multiple upper GI bleeds, esophageal varicies/esophageal banding, left breast cancer had chemo last on 09-12-16-did not tolerate-completed only 3 cycles-then it was stopped/received radiation treatments/pt states she did not follow up and so did not have surgery, lt ear deafness, R ear MENOMINEE, occasional R leg edema, recent admission for hepatic encephalopathy 08/18/24 through 08/27/24, calcified abdominal aorta, metabolic alkalosis, pulm htn, portal vein thrombosis, pancreatitis, cholelithiasis History of Any Multi-Drug Resistant Organisms: None Reported Past Surgical History: Adenoidectomy, Breast Surgery, Tonsillectomy Additional Past Surgical History / Comment(s): Multiple paracentesises, EGDs, esophageal banding x2, right chest mediport since removed, l breast bx., Past Anesthesia/Blood Transfusion Reactions: No Reported Reaction Additional Past Anesthesia/Blood Transfusion Reaction / Comment(s): Blood transfusions-no reaction Past Psychological History: Anxiety Smoking Status: Current every day smoker Past Alcohol Use History: None Reported Past Drug Use History: None Reported - Past Family History Mother Family Medical History: Cancer Additional Family Medical History / Comment(s): of lung ca at the age of 59yrs. She was a smoker. Father Family Medical History: Myocardial Infarction (PR) Additional Family Medical History / Comment(s): from 2nd heart attack at the age of 59yrs. <Tevin Urbina - Last Filed: 11/01/24 20:24> General Exam Limitations: no limitations <Tevin Urbina - Last Filed: 11/01/24 20:24> General appearance: alert, in no apparent distress Head exam: Present: atraumatic, normocephalic Eye exam: Present: normal appearance, PERRL ENT exam: Present: normal exam Neck exam: Present: normal inspection. Absent: tenderness, meningismus Respiratory exam: Present: normal lung sounds bilaterally. Absent: respiratory distress, wheezes Cardiovascular Exam: Present: regular rate, normal rhythm GI/Abdominal exam: Present: soft, distended. Absent: guarding Extremities exam: Present: normal inspection, normal capillary refill Neurological exam: Present: alert, oriented X3, CN II-XII intact. Absent: motor sensory deficit Psychiatric exam: Present: normal affect, normal mood Skin exam: Present: warm, dry, intact <Francisco Joe - Last Filed: 11/02/24 00:04> - General Exam Comments Initial Comments: Visual Physical Exam Vital signs reviewed General: Well-appearing, nontoxic, no acute distress. Head: Normocephalic, atraumatic Eyes: PERRLA, EOMI ENT: Airway patent Chest: Nonlabored breathing Skin: No visual rash, normal skin tone Neuro: Alert and oriented 3 Musculoskeletal: No gross abnormalities (Tevin rUbina) Course Vital Signs 11/01/24 20:01 Temperature 100 F H Pulse Rate 98 Respiratory 18 Rate Blood Pressure 113/71 O2 Sat by Pulse 98 Oximetry Medical Decision Making <Tevin Urbina - Last Filed: 11/01/24 20:24> <Francisco Joe - Last Filed: 11/02/24 00:04> - Medical Decision Making I performed the quick note portion of this visit, electronically signed Tevin Urbina PA-C (Tevin Urbina) Was pt. sent in by a medical professional or institution (LIANNA Arzate, RN MENTAL HEALTH, urgent care, hospital, or fdc...) When possible be specific @ -No Did you speak to anyone other than the patient for history (EMS, parent, family, police, friend...)? What history was obtained from this source @ -No Did you review nursing and triage notes (agree or disagree)? Why? @ -I reviewed and agree with nursing and triage notes Were old charts reviewed (outside hosp., previous admission, EMS record, old EKG, old radiological studies, urgent care reports/EKG's, fdc records)? Report findings @ -No old charts were reviewed Differential Diagnosis medication refill EKG interpreted by me (3pts min.). @ -As above X-rays interpreted by me (1pt min.). @ -None done CT interpreted by me (1pt min.). @ -None done U/S interpreted by me (1pt. min.). @ -None done What testing was considered but not performed or refused? (CT, X-rays, U/S, labs)? Why? @ -None What meds were considered but not given or refused? Why? @ -None Did you discuss the management of the patient with other professionals (professionals i.e. , PA, RN MENTAL HEALTH, lab, RT, psych nurse, social service worker, oral health therapist, teacher, aerospace engineer officer armament, case management associate)? Give summary @ -No Was smoking cessation discussed for >3mins.? @ -No Was critical care preformed (if so, how long)? @ -No Were there social determinants of health that impacted care today? How? (Homelessness, low income, unemployed, alcoholism, drug addiction, transportation, low edu. Level, literacy, decrease access to med. care, half-way, rehab)? @ -No Was there de-escalation of care discussed even if they declined (Discuss DNR or withdrawal of care, Hospice)? DNR status @ -No What co-morbidities impacted this encounter? (DM, HTN, Smoking, COPD, CAD, Cancer, CVA, ARF, Chemo, Hep., AIDS, mental health diagnosis, sleep apnea, morbid obesity)? @ -59-year-old female with medication refill request. Was patient admitted / discharged? Hospital course, mention meds given and route, prescriptions, significant lab abnormalities, going to OR and other pertinent info. @ -Patient given a dose of her lactulose and provided refill prescription. Return parameters discussed. Undiagnosed new problem with uncertain prognosis? @ -No Drug Therapy requiring intensive monitoring for toxicity (Heparin, Nitro, Insulin, Cardizem)? @ -No Were any procedures done? @ -No Diagnosis/symptom? @Medication refill Acute, or Chronic, or Acute on Chronic? @ -Acute Uncomplicated (without systemic symptoms) or Complicated (systemic symptoms)? @ -Default Side effects of treatment? @ -No Exacerbation, Progression, or Severe Exacerbation? @ -No Poses a threat to life or bodily function? How? (Chest pain, [place], PR, pneumonia, PE, COPD, DKA, ARF, appy, cholecystitis, CVA, Diverticulitis, Homicidal, Suicidal, threat to staff... and all critical care pts) @ -No (Francisco Joe) Disposition <Tevin Urbina - Last Filed: 11/01/24 20:24> Is patient prescribed a controlled substance at d/c from ED?: No Time of Disposition: 00:04 <Francisco Joe - Last Filed: 11/02/24 00:04> Clinical Impression: Medication refill Disposition: HOME SELF-CARE Condition: Fair Instructions (If sedation given, give patient instructions): Medicine Refill (ED) Prescriptions: Lactulose [Cephulac] 20 gm PO QID 30 Days #3600 ml Referrals: Mark Estrada MD [Primary Care Provider] - 1-2 days
[2024-11-02] MEDS: LACTULOSE 20 GM/30 ML CUP PO ONE (00:16)
[2024-11-02 00:19] VITALS: BP 113/72; PULSE 94; RESP 17
== END 2024-11-02 00:19 | disposition home or self-care (01) ==
LOC: EC 19:45
DX: Z76.0 Encounter for issue of repeat prescription (principal); F17.200 Nicotine dependence, unspecified, uncomplicated
CPT/HCPCS: 93005; 99284